=== PATIENT | male | born 1935 | race Caucasian/White ===

== ENCOUNTER 2018-10-31 07:45 | Day surgery (SDC) | payer MEDICARE, SELFPAY ==
[2018-10-30 07:22] VITALS: BMI 30.9
--- NOTE | 2018-10-31 09:59 | CL.D_ITS ---
Patient Name: TIRSO CALDERÓN Study Date: 10/31/2018 Performing: Maxi Gallardo MD Ht: 70.07 inches 178 cm : 1935 Wt: 216.05 lbs 98 kg Age: 83 Gender: male BSA: 2.16 PROCEDURE(S) PERFORMED [id number]-SMJ/COR/LV CLINICAL PROFILE AND INDICATIONS Indications: Suspected CAD, Valvular Disease, LV Dysfunction Heart Failure: NYHA Class: 1, Newly Diagnosed: Yes, Heart Failure Type: Systolic Stress/Imaging Stress/Image Study Performed: No Angina Classification Anginal Classification w/in 2 Weeks: No symptoms CAD Presentations: Other: Dyspnea on exertion Comorbidities/Risk Factors: Hypertension Dyslipidemia Diabetes Mellitus: Diabetes Therapy: Oral CONCLUSIONS Occluded RCA with L to R collaterals., Probably significant mid LAD stenosis which contributes to L to R Collaterals. Segmented LV systolic dysfunction- Moderate LVEF: by LV gram 45 % Elevated Left Ventricular End Diastolic Pressure RHC not ordered RECOMMENDATIONS Consider 2 vessel CABG with AVR vs PCI of LAD with TAVR. Dr Andrews paged with results. Successful manual sheath removal. DESCRIPTION OF PROCEDURE The patient arrived to the procedure lab. The risks and benefits of the procedure as well as a full d escription of our services here and current unavailability of surgical backup were fully explained to the patient and/or their significant other prior to the catheterization. The Timeout was completed, verifying the correct patient and procedure. The patient's procedural site was prepped and draped in the usual fashion. Local anesthetic was given subcutaneously to right groin region with Lidocaine 2%. Using a modified Seldinger technique, arterial access was obtained via the right femoral artery, a 4 Fr sheath was inserted Left Coronary Artery selective angiography was performed in multiple views us ing a 4 Fr. JL5 catheter. Right Coronary Artery selective angiography was then performed in multiple views using a 4 Fr. 3DRC catheter. Left Ventriculography was performed in LOERA projection using a 4 Fr . Pigtail catheter. LV to AO pullback pressures were then recorded.The arterial sheath was pulled and manual compression applied until hemostasis is achieved. CORONARY ANGIOGRAPHY DOMINANCE: Right Dominant LEFT HEART ASSESSMENT Left Ventricular Ejection Fraction: by LV Gram 45 % Inferior Mid Hypokinesis - Severe Depressed Left Ventricular systolic function LVEDP: 16-17 mmHg Abnormal Left Ventricular contraction pattern LEFT MAIN: Mild calcification LEFT ANTERIOR DECENDING ARTERY: PROX LAD: Moderate calcification MID LAD: 75 % Stenosis, Mild calcification DIAGONAL 1: Ostial - Mild luminal irregularities less than 30% CIRCUMFLEX ARTERY: Non-obstructive RIGHT CORONARY ARTERY: Severe calcification MID RCA: is occluded COLLATERAL FLOW: Collateral flow from Left to Right VALVE FINDINGS: Aortic Valve Stenosis - moderate with peak to peak gradient on pullback of 40 mm Hg. This may be und erestimated given moderate LV dysfunction. COMPLICATIONS No Complications PROCEDURE MEDICATIONS Oxygen: 2 L/min via nasal cannula SUMMARY OF HEMODYNAMIC DATA Time AIR REST ECG 08:11:13 AO 148/56 (90) SA 09:33:13 LV 188/-12, 9 09:39:32 LV 188/-14, 16 09:39:38 LVp 194/-13, 17 09:39:44 AOp 155/52 (91) 09:39:49 Signed By Maxi Gallardo MD On 10/31/2018 09:58:26 Maxi Gallardo MD
--- OUTSIDE RECORDS SUMMARY | 2019-02-01 08:11 | XMS RPT_ITS ---
:1935 Author Organization OHIP Care Team Providers Name Role Phone Maxi Gallardo Attending Unavailable Jeremi Choe Primary Care Unavailable Maxi Gallardo Referring Unavailable Maxi Gallardo Attending Unavailable Maxi Gallardo Referring Unavailable CHOLO VALENTINE MD Attending Unavailable PHYSICIAN, NONE Primary Care Unavailable CHOLO VALENTINE MD Attending Unavailable PHYSICIAN, NONE Primary Care Unavailable CHOLO VALENTINE MD Attending Unavailable PHYSICIAN, NONE Primary Care Unavailable MICHAEL ORTEZ Attending Unavailable MICHAEL ORTEZ Referring Unavailable JEREMI CHOE Referring Unavailable JEREMI CHOE Attending Unavailable JEREMI CHOE Referring Unavailable JEREMI CHOE Referring Unavailable NEELIMA MICHAEL E Referring Unavailable STEFANY ORTEZNETAron Vyas Attending Unavailable STEFANY ORTEZNETH E Referring Unavailable NEELIMA MICHAEL E Referring Unavailable JEREMI CHOE Attending Unavailable ДМИТРИЙ JERZY Referring Unavailable NEELIMA MICHAEL E Attending Unavailable NEELIMA MICHAEL E Referring Unavailable NEELIMA, MICHAEL E Referring Unavailable NEELIMA, MICHAEL E Referring Unavailable NEELIMA, MICHAEL E Referring Unavailable NEELIMA, MICHAEL E Attending Unavailable NEELIMA MICHAEL E Referring Unavailable NEELIMA, MICHAEL E Referring Unavailable NEELIMA MICHAEL Attending Unavailable STEFANY ORTEZNETH Referring Unavailable Jeremi Choe MD Primary Care Unavailable MICHAEL ORTEZ Attending Unavailable MICHAEL ORTEZ Referring Unavailable Jeremi Choe MD Primary Care Unavailable PROBLEMS PROBLEMS DATE TYPE CONDITION / CODE ATTENDING STATUS SOURCE 11/19/2018 Active Dizziness and NEELIMA, Active [place] giddiness / MICHAEL E [facility] R42(ICD-10) [place] Repository 12/01/2015 Active Essential (primary) NA Active [place] hypertension / [facility] I10(ICD-10) [place] Repository 10/22/2018 Active 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 / I25.10(ICD-10) 08/18/2016 Active Chronic kidney NA Active [place] disease, stage 3 [facility] (moderate) / [place] N18.3(ICD-10) Repository 03/28/2018 Active 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 / Repository E11.22(ICD-10) 08/23/2012 Active Nonrheumatic aortic NEELIMA, Active [place] (valve) stenosis / [facility]EL Vyas [facility] Other I35.0(ICD-10) [place] Repository 08/23/2012 Admitting Unknown / NEELIMA, Active [place] [facility] diagnosis UNK(Unknown) [facility] Repository PROCEDURES PROCEDURES No Procedure Records FoundRESULTS RESULTS CNPN Observed: 11/27/2018 Status: COMPLETED Source: [place] 12:00 AM [facility] REPOSITORY Telephone (CAWSTR) TIRSO CALDERÓN ([id number]) 1935 M Date Time Provider Department 11/27/18 MICHAEL ORTEZ CAWSTR During your visit today, we recorded the following information about you: Lesly Cabrales MA 11/27/2018 4:35 PM Signed Patients frances Benito called in and verified name and . She is in the process of filling out online request to get imaging and needed MRN and date of Echo. Lesly Wisdom Psr 11/29/2018 8:58 AM Signed Left message on frances Benito's voice mail that Heart cath CD from [facility] has been mailed to [facility]. Echo and Carotid Ultrasound CD is being mailed from [facility] to [facility] and [facility] Patient also has copy of chest x-ray to hand carry with him. Allergies As of Date: 11/27/2018 (No Known Allergies) Date Reviewed: 11/19/2018 Reviewed by: Lesly Cabrales MA - Fully Assessed Reason for Visit: Patient Question [9427] Prescriptions as of 11/27/2018 Sig: GLIPIZIDE ER 10 MG TABLET, EX* Take 1 tablet by mouth daily * LISINOPRIL 20 MG-HYDROCHLOROT* Take 2 tablets by mouth every* LABETALOL 100 MG TABLET Take 1 tablet by mouth twice * BLOOD SUGAR DIAGNOSTIC STRIPS Testing twice dailyDx: Type 2* LANCETS 30 GAUGE Test blood sugar(s) 2 times d* FENOFIBRATE 160 MG TABLET take 1 tablet once a day for * AMLODIPINE 10 MG TABLET TAKE 1 TABLET BY MOUTH EVERY * LOW-DOSE ASPIRIN ORAL Take 1 tablet by mouth once d* LABETALOL 300 MG TABLET Take 1 tablet by mouth every * VITAMINS A,C,T-DQEK-CWMBZQ 7* Take 1 tablet by mouth twice * BLOOD-GLUCOSE METER KIT Glucose Meter of Choice - Kit* BUSPIRONE 10 MG TABLET Take 1 tablet by mouth three * Patient taking differently: Take 10 mg by mouth three rodger* DOXEPIN 100 MG CAPSULE Take 1 capsule by mouth daily* TRAZODONE 100 MG TABLET Take 1 tablet by mouth daily * Problem List As Of Date 11/27/2018 Noted Resolved Essential hypertension [I10] Impaired glucose metabolism [R73.09] 08/16/2016 More... Hyperlipidemia [E78.5] Nonspecific abnormal results of liver function * 12/05/2017 Bipolar disorder, unspecified (HCC) [F31.9] More... Chronic kidney disease (CKD), stage III (modera*INVALID FOR* More... Mitral regurgitation [I34.0] INVALID FOR* Aortic stenosis [I35.0] INVALID FOR* Personal history of smoking [Z87.891] INVALID FOR*08/18/2016 More... 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) [E11.22, N1*INVALID FOR* Vitamin D deficiency [E55.9] INVALID FOR* Spondylosis of lumbar region without myelopathy*INVALID FOR* Skin nodule [R22.9] INVALID FOR* Encounter Status:Closed by SAMRA VELOZ LESLY on 11/27/18 BRITTNY Observed: 11/23/2018 Status: COMPLETED Source: [place] 12:00 AM [facility] REPOSITORY Telephone (CAWSTR) TIRSO CALDERÓN ([id number]) 1935 M Date Time Provider Department 11/23/18 MICHAEL ORTEZ CAWSTR During your visit today, we recorded the following information about you: Lesly Cabrales MA 11/23/2018 9:06 AM Signed Patient called in and verified name and date of . He is requesting that we fax a referral to Cardiology in [place] . The fax number is [phone] Lesly Ortez MD 11/23/2018 9:46 AM Signed Noted. Please send copy of angiogram report, echo reports and my office notes. Can we not make a direct referral to the surgeon? MD Lesly Avelar MA 11/23/2018 11:00 AM Signed They will need us to send referral and then they can set patient up, if there is a certain doctor that we want him to see we can place that name on it. Lesly Ortez MD 11/23/2018 4:[address] send referral to cardiothoracic surgery. 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 MD Gene Avelar RN 11/27/2018 10:23 AM Signed February from [facility] called, states she needs more info on pt. February states they do not have surgeons in their office. Informed her I will talk to pt and see what he wants to do Gene Arshad RN Gene Arshad RN 11/27/2018 10:23 AM Addendum Talked to Stacy from [facility] at [phone]. She is sending a referral form for pt. Stacy is requesting we fax ins cards, face sheet, most recent office note, labs, carotid scan report, echo reports, ekg and cath report. Faxed all documents to [phone] with confirmation Gene Arshad RN *still need CD with cath and echo images sent before pt tonia Arshad RN 11/27/2018 11:49 AM Signed Called [facility] record label internship, they will send disc to office of pt's recent heart cath Gene Arshad RN 11/27/2018 3:31 PM Signed Talked to pt's daughter Jigna, she said pt is scheduled with Dr. Valentine on 12-05-18. Informed her pt will need to take copy of heart cath and recent echo on CD. She states pt has copy of heart cath and she will request echo CD online t[place]alton Arshad RN 11/28/2018 3:29 PM Signed Pt stopped in office and was given CD of heart cath from [place] to take to tonia Arshad RN Allergies As of Date: 11/23/2018 (No Known Allergies) Date Reviewed: 11/19/2018 Reviewed by: Lesly Cabrales MA - Fully Assessed Reason for Visit: Referral Request [124] Prescriptions as of 11/23/2018 Sig: GLIPIZIDE ER 10 MG TABLET, EX* Take 1 tablet by mouth daily * LISINOPRIL 20 MG-HYDROCHLOROT* Take 2 tablets by mouth every* LABETALOL 100 MG TABLET Take 1 tablet by mouth twice * BLOOD SUGAR DIAGNOSTIC STRIPS Testing twice dailyDx: Type 2* LANCETS 30 GAUGE Test blood sugar(s) 2 times d* FENOFIBRATE 160 MG TABLET take 1 tablet once a day for * AMLODIPINE 10 MG TABLET TAKE 1 TABLET BY MOUTH EVERY * LOW-DOSE ASPIRIN ORAL Take 1 tablet by mouth once d* LABETALOL 300 MG TABLET Take 1 tablet by mouth every * VITAMINS A,C,R-QOMQ-UOVZJN 7* Take 1 tablet by mouth twice * BLOOD-GLUCOSE METER KIT Glucose Meter of Choice - Kit* BUSPIRONE 10 MG TABLET Take 1 tablet by mouth three * Patient taking differently: Take 10 mg by mouth three rodger* DOXEPIN 100 MG CAPSULE Take 1 capsule by mouth daily* TRAZODONE 100 MG TABLET Take 1 tablet by mouth daily * Problem List As Of Date 11/23/2018 Noted Resolved Essential hypertension [I10] Impaired glucose metabolism [R73.09] 08/16/2016 More... Hyperlipidemia [E78.5] Nonspecific abnormal results of liver function * 12/05/2017 Bipolar disorder, unspecified (HCC) [F31.9] More... Chronic kidney disease (CKD), stage III (modera*INVALID FOR* More... Mitral regurgitation [I34.0] INVALID FOR* Aortic stenosis [I35.0] INVALID FOR* Personal history of smoking [Z87.891] INVALID FOR*08/18/2016 More... 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) [E11.22, N1*INVALID FOR* Vitamin D deficiency [E55.9] INVALID FOR* Spondylosis of lumbar region without myelopathy*INVALID FOR* Skin nodule [R22.9] INVALID FOR* Encounter Status:Closed by GENE ARSHAD RN on 11/27/18 PROGRESS Observed: 11/19/2018 Status: COMPLETED Source: [place] 10:30 AM [facility] REPOSITORY [facility] ID: [id number] Author: Michael Ortez Service: (none) Author Type: Physician Type: Progress Notes Filed: 11/19/2018 6:21 PM Note Text: PERTINENT CARDIAC HISTORY Aortic stenosis - severe Mitral insufficiency - mild HTN HL DM CRF LBBB ADHERENCE TO GUIDELINES WEI-I or ARB for HF with prior LVEF<40 (NQF 0081) - N/A ASA or Plavix for ASHD (NQF 0067) - met Beta elijah for ASHD with prior UT or prior LVEF<40 (NQF 0070) - N/A Beta elijah for HF with prior LVEF<40 (NQF 0083) - N/A WEI-I or ARB for ASHD with DM or prior LVEF<40 (NQF 0066) - met Statin therapy for ASHD or FHL or DM - fibrate BMI documented and plan if >25 (NQF 0421) - lifestyle recommendation form Tobacco use screening and referral (NQF 0028) - lifestyle recommendation form Recommendation for whole food, plant based diet - lifestyle recommendation form CLINICAL IMPRESSION/PLAN: Tirso Calderón is clinically stable. We will expedite his presurgical evaluation by performing a carotid Doppler examination for evaluation of his bruits. He reports blood pressures at home have been in the 130/70 range. I've asked him to continue to monitor these closely. I will see him on a to be arranged basis following his surgery. I have asked him to call if he does not receive a call about scheduling in the next several days. Written and verbal health teaching given to patient, patient verbalizes understanding and agrees with treatment plan. DIAGNOSIS FOR VISIT: Aortic stenosis ASHD HISTORY OF PRESENT ILLNESS Tirso Calderón returns for follow-up of his valvular heart disease. He recently underwent angiogram. He was found to have significant ischemic heart disease as well. He has decided that he wishes to go to [place] for his surgery. Preliminary contacts have been made and records have been faxed, but no surgical date has had been established. He denies chest pain. He's had no orthopnea, edema, syncope, palpitations, TIAs, amaurosis or claudication. He states that he wishes to proceed with surgery as soon as possible. ALLERGIES: ALLERGIES No Known Allergies CURRENT OUTPATIENT MEDICATIONS: glipiZIDE (GLUCOTROL XL) 10mg 24 hr tablet Take 1 tablet by mouth daily before breakfast. lisinopril-hydrochlorothiazide (PRINZIDE,ZESTORETIC) 20-12.5 mg per tablet Take 2 tablets by mouth every morning. For blood pressure. labetalol (TRANDATE) 100 mg tablet Take 1 tablet by mouth twice daily. Take in addition to the 300 mg dose blood sugar diagnostic (TRUE METRIX GLUCOSE TEST STRIP) test strip Testing twice dailyDx: Type 2 DM- Uncontrolled Code E11.22 lancets (UNILET SUPER THIN LANCETS) 30 gauge [facility] Test blood sugar(s) 2 times daily. Dx: Type 2 DM- Uncontrolled Code E11.22 Insulin: No Fenofibrate (LOFIBRA) 160 mg tablet take 1 tablet once a day for triglycerides amLODIPine (NORVASC) 10 mg tablet TAKE 1 TABLET BY MOUTH EVERY DAY LOW-DOSE ASPIRIN ORAL Take 1 tablet by mouth once daily. labetalol (TRANDATE) 300 mg tablet Take 1 tablet by mouth every 12 hours. Morning and evening. vit A,C,E-Wiiq-Zjtxyc (PRESERVISION AREDS) 7,160-113-100 eaxo-ap-aklf tab Take 1 tablet by mouth twice daily with meals. Blood-Glucose Meter monitoring kit Glucose Meter of Choice - Kit - Dx: Type 2 DM - Uncontrolled E11.22 doxepin (SINEQUAN) 100 mg capsule Take 1 capsule by mouth daily at bedtime. traZODone (DESYREL) 100 mg tablet Take 1 tablet by mouth daily at bedtime. busPIRone (BUSPAR) 10 mg tablet Take 1 tablet by mouth three times daily. PHYSICAL EXAMINATION: VITAL SIGNS: BP 167/78 Pulse 67 Ht 5' 10 (1.78m) Wt 215 lb (97.5kg) BMI 30.85 kg/(m2). Chest: Clear to auscultation. Trachea is midline. Air entry is equal. Cardiac: Regular rhythm. S1 and S2 are normal. PMI is nondisplaced. There is a 3/6 mid peaking murmur of aortic stenosis. Carotids are somewhat delayed. There are possible bilateral bruits. JVP is less than 10 cm. Abdomen: Soft and nontender. There are no pulsatile masses or bruits. No liver enlargement. Bowel sounds are active. Extremities: No edema. Pulses are intact and symmetrical. Coronary angiogram films were personally reviewed. Electronically Signed: Michael Ortez MD November 19, 2018 10:30 AM CC: Jeremi Choe MD CNOV Observed: 11/19/2018 Status: COMPLETED Source: [place] 10:00 AM [facility] REPOSITORY Office Visit (CAWSTR) TIRSO CALDERÓN ([id number]) 1935 M Date Time Provider Department 11/19/18 10:00 AM MICHAEL ORTEZ CAWSTR During your visit today, we recorded the following information about you: Pulse Blood pressure Weight Height 67/minute 167/78 97.5 kg 1.778 m Michael Ortez MD 11/19/2018 6:21 PM Signed PERTINENT CARDIAC HISTORY Aortic stenosis - severe Mitral insufficiency - mild HTN HL DM CRF LBBB ADHERENCE TO GUIDELINES WEI-I or ARB for HF with prior LVEF<40 (NQF 0081) - N/A ASA or Plavix for ASHD (NQF 0067) - met Beta elijah for ASHD with prior UT or prior LVEF<40 (NQF 0070) - N/A Beta elijah for HF with prior LVEF<40 (NQF 0083) - N/A WEI-I or ARB for ASHD with DM or prior LVEF<40 (NQF 0066) - met Statin therapy for ASHD or FHL or DM - fibrate BMI documented and plan if >25 (NQ 0421) - lifestyle recommendation form Tobacco use screening and referral (NQ 0028) - lifestyle recommendation form Recommendation for whole food, plant based diet - lifestyle recommendation form CLINICAL IMPRESSION/PLAN: Tirso Calderón is clinically stable. We will expedite his presurgical evaluation by performing a carotid Doppler examination for evaluation of his bruits. He reports blood pressures at home have been in the 130/70 range. I've asked him to continue to monitor these closely. I will see him on a to be arranged basis following his surgery. I have asked him to call if he does not receive a call about scheduling in the next several days. Written and verbal health teaching given to patient, patient verbalizes understanding and agrees with treatment plan. DIAGNOSIS FOR VISIT: Aortic stenosis ASHD HISTORY OF PRESENT ILLNESS Tirso Calderón returns for follow-up of his valvular heart disease. He recently underwent angiogram. He was found to have significant ischemic heart disease as well. He has decided that he wishes to go to [place] for his surgery. Preliminary contacts have been made and records have been faxed, but no surgical date has had been established. He denies chest pain. He's had no orthopnea, edema, syncope, palpitations, TIAs, amaurosis or claudication. He states that he wishes to proceed with surgery as soon as possible. ALLERGIES: ALLERGIES No Known Allergies CURRENT OUTPATIENT MEDICATIONS: glipiZIDE (GLUCOTROL XL) 10mg 24 hr tablet Take 1 tablet by mouth daily before breakfast. lisinopril-hydrochlorothiazide (PRINZIDE,ZESTORETIC) 20-12.5 mg per tablet Take 2 tablets by mouth every morning. For blood pressure. labetalol (TRANDATE) 100 mg tablet Take 1 tablet by mouth twice daily. Take in addition to the 300 mg dose blood sugar diagnostic (TRUE METRIX GLUCOSE TEST STRIP) test strip Testing twice dailyDx: Type 2 DM- Uncontrolled Code E11.22 lancets (UNILET SUPER THIN LANCETS) 30 gauge misc Test blood sugar(s) 2 times daily. Dx: Type 2 DM- Uncontrolled Code E11.22 Insulin: No Fenofibrate (LOFIBRA) 160 mg tablet take 1 tablet once a day for triglycerides amLODIPine (NORVASC) 10 mg tablet TAKE 1 TABLET BY MOUTH EVERY DAY LOW-DOSE ASPIRIN ORAL Take 1 tablet by mouth once daily. labetalol (TRANDATE) 300 mg tablet Take 1 tablet by mouth every 12 hours. Morning and evening. vit A,C,Z-Nure-Yhnerc (PRESERVISION AREDS) 7,160-113-100 cctx-il-cqlq tab Take 1 tablet by mouth twice daily with meals. Blood-Glucose Meter monitoring kit Glucose Meter of Choice - Kit - Dx: Type 2 DM - Uncontrolled E11.22 doxepin (SINEQUAN) 100 mg capsule Take 1 capsule by mouth daily at bedtime. traZODone (DESYREL) 100 mg tablet Take 1 tablet by mouth daily at bedtime. busPIRone (BUSPAR) 10 mg tablet Take 1 tablet by mouth three times daily. PHYSICAL EXAMINATION: VITAL SIGNS: BP 167/78 Pulse 67 Ht 5' 10 (1.78m) Wt 215 lb (97.5kg) BMI 30.85 kg/(m2). Chest: Clear to auscultation. Trachea is midline. Air entry is equal. Cardiac: Regular rhythm. S1 and S2 are normal. PMI is nondisplaced. There is a 3/6 mid peaking murmur of aortic stenosis. Carotids are somewhat delayed. There are possible bilateral bruits. JVP is less than 10 cm. Abdomen: Soft and nontender. There are no pulsatile masses or bruits. No liver enlargement. Bowel sounds are active. Extremities: No edema. Pulses are intact and symmetrical. Coronary angiogram films were personally reviewed. Electronically Signed: Michael Ortez MD November 19, 2018 10:30 AM CC: MD Michael Hernandez MD 11/19/2018 10:30 AM Signed LIFESTYLE CHANGE A healthy lifestyle is the most important component of your overall treatment plan. Please give serious thought to the following areas and commit to making oysterman changes. EAT A WHOLE FOOD, PLANT BASED DIET The nutrition your body gets is more important than the medicine you take. What matters most is the overall way you eat. We encourage you to minimize the use of animal products (which include dairy and all meats except fatty fish) and use whole, unprocessed plant foods to provide your protein, vitamins and other nutrients. We have a lot of information to share with you on this topic. This is not a diet. It is a way of life that you will keep with you. EXERCISE REGULARLY It is not important to spend hours in the gym, lifting weights and perspiring heavily. A total of 2-3 hours per week of aerobic (causing you to be moderately short of breath) exercise is sufficient to improve your health. Talk to us before you begin a new exercise program, if you have heart disease or experience shortness of breath or chest pain. REDUCE STRESS Chronic emotional and physical stress leads to disease. Ways of reducing stress include meditation, visualization, prayer, yoga and other forms of relaxation therapy. Consistency is the collier. Find a technique that works for you and do it every day. CULTIVATE RELATIONSHIPS Loneliness and isolation have a major negative impact on health. Seek out others who can love, care for and nurture you. Avoid hurtful relationships. MAINTAIN IDEAL BODY WEIGHT The best way to do this is to do all the things above. Our bodies naturally find the right weight if we keep moving and feed ourselves the right food. If your BMI is greater than 25, we strongly recommend a referral to a weight management program. Please speak to us or your family physician about available programs. AVOID NICOTINE IN ALL FORMS This includes all tobacco products, whether chewed, smoked, vaped, or rubbed on the skin. Smoking cessation programs, which can make use of tobacco substitutes, medications to suppress cravings and behavior management, are available. Please contact your family physician about programs in your area. Referring Provider: MICHAEL ORTEZ [[id number]] Allergies As of Date: 11/19/2018 (No Known Allergies) Date Reviewed: 11/19/2018 Reviewed by: Lesly Cabrales MA - Fully Assessed Reason for Visit: Established Patient [175] Primary Visit Diagnosis:Dizziness and giddiness [R42] Other Visit Diagnoses:ASHD (arteriosclerotic heart disease) [I25.10] Nonrheumatic aortic valve stenosis [I35.0] Order(s):US CAROTID ARTERIES [facility] [[id number]] Order #: [id number] FUTURE Prescriptions as of 11/19/2018 Sig: GLIPIZIDE ER 10 MG TABLET, EX* Take 1 tablet by mouth daily * LISINOPRIL 20 MG-HYDROCHLOROT* Take 2 tablets by mouth every* LABETALOL 100 MG TABLET Take 1 tablet by mouth twice * BLOOD SUGAR DIAGNOSTIC STRIPS Testing twice dailyDx: Type 2* LANCETS 30 GAUGE Test blood sugar(s) 2 times d* FENOFIBRATE 160 MG TABLET take 1 tablet once a day for * AMLODIPINE 10 MG TABLET TAKE 1 TABLET BY MOUTH EVERY * LOW-DOSE ASPIRIN ORAL Take 1 tablet by mouth once d* LABETALOL 300 MG TABLET Take 1 tablet by mouth every * VITAMINS A,C,L-GLSO-CBSHPU 7* Take 1 tablet by mouth twice * BLOOD-GLUCOSE METER KIT Glucose Meter of Choice - Kit* DOXEPIN 100 MG CAPSULE Take 1 capsule by mouth daily* TRAZODONE 100 MG TABLET Take 1 tablet by mouth daily * BUSPIRONE 10 MG TABLET Take 1 tablet by mouth three * Patient taking differently: Take 10 mg by mouth three rodger* Problem List As Of Date 11/19/2018 Noted Resolved Essential hypertension [I10] Impaired glucose metabolism [R73.09] 08/16/2016 More... Hyperlipidemia [E78.5] Nonspecific abnormal results of liver function * 12/05/2017 Bipolar disorder, unspecified (HCC) [F31.9] More... Chronic kidney disease (CKD), stage III (modera*INVALID FOR* More... Mitral regurgitation [I34.0] INVALID FOR* Aortic stenosis [I35.0] INVALID FOR* Personal history of smoking [Z87.891] INVALID FOR*08/18/2016 More... 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 Please give serious thought to the following areas and commit to making oysterman changes. EAT A WHOLE FOOD, PLANT BASED DIET The nutrition your body gets is more important than the medicine you take. What matters most is the overall way you eat. We encourage you to minimize the use of animal products (which include dairy and all meats except fatty fish) and use whole, unprocessed plant foods to provide your protein, vitamins and other nutrients. We have a lot of information to share with you on this topic. This is not a diet. It is a way of life that you will keep with you. EXERCISE REGULARLY It is not important to spend hours in the gym, lifting weights and perspiring heavily. A total of 2-3 hours per week of aerobic (causing you to be moderately short of breath) exercise is sufficient to improve your health. Talk to us before you begin a new exercise program, if you have heart disease or experience shortness of breath or chest pain. REDUCE STRESS Chronic emotional and physical stress leads to disease. Ways of reducing stress include meditation, visualization, prayer, yoga and other forms of relaxation therapy. Consistency is the collier. Find a technique that works for you and do it every day. CULTIVATE RELATIONSHIPS Loneliness and isolation have a major negative impact on health. Seek out others who can love, care for and nurture you. Avoid hurtful relationships. MAINTAIN IDEAL BODY WEIGHT The best way to do this is to do all the things above. Our bodies naturally find the right weight if we keep moving and feed ourselves the right food. If your BMI is greater than 25, we strongly recommend a referral to a weight management program. Please speak to us or your family physician about available programs. AVOID NICOTINE IN ALL FORMS This includes all tobacco products, whether chewed, smoked, vaped, or rubbed on the skin. Smoking cessation programs, which can make use of tobacco substitutes, medications to suppress cravings and behavior management, are available. Please contact your family physician about programs in your area. Follow-up and Disposition History Recorded Encounter Status:Closed by MICHAEL ORTEZ MD on 11/19/18 CNNURSE Observed: 10/22/2018 Status: COMPLETED Source: [place] 1:00 PM [facility] REPOSITORY Nurse Visit (CAWSTR) TIRSO CALDERÓN ([id number]) 1935 M Date Time Provider Department 10/22/18 1:00 PM NURSE CARD ADMIN COUNTS INCLUDE 234 BEDS AT THE [facility] WSTR CAWSTR During your visit today, we recorded the following information about you: Lesly Cabrales MA 10/22/2018 1:40 PM Signed EKG completed and given to Dr Ortez for review. Lesly Cabrales MA Referring Provider: MICHAEL ORTEZ [[id number]] Allergies As of Date: 10/22/2018 (No Known Allergies) Date Reviewed: 10/22/2018 Reviewed by: Lesly Cabrales MA - Fully Assessed Reason for Visit: Allied Health Visit [5] Visit Diagnoses:ASHD (arteriosclerotic heart disease) [I25.10] Nonrheumatic aortic valve stenosis [I35.0] Essential hypertension [I10] Order(s):ECG COMPLETE W INTERPRETATION [ECG01] Order #: [id number] Prescriptions as of 10/22/2018 Sig: LABETALOL 100 MG TABLET Take 1 tablet by mouth twice * BLOOD SUGAR DIAGNOSTIC STRIPS Testing twice dailyDx: Type 2* LANCETS 30 GAUGE Test blood sugar(s) 2 times d* FENOFIBRATE 160 MG TABLET take 1 tablet once a day for * AMLODIPINE 10 MG TABLET TAKE 1 TABLET BY MOUTH EVERY * LOW-DOSE ASPIRIN ORAL Take 1 tablet by mouth once d* LABETALOL 300 MG TABLET Take 1 tablet by mouth every * LISINOPRIL 20 MG-HYDROCHLOROT* Take 2 tablets by mouth every* GLIPIZIDE ER 10 MG TABLET, EX* TAKE 1 TABLET BY MOUTH EVERY * VITAMINS A,C,V-TSSF-NFRNEF 7* Take 1 tablet by mouth twice * BLOOD-GLUCOSE METER KIT Glucose Meter of Choice - Kit* BUSPIRONE 10 MG TABLET Take 1 tablet by mouth three * DOXEPIN 100 MG CAPSULE Take 1 capsule by mouth daily* TRAZODONE 100 MG TABLET Take 1 tablet by mouth daily * Problem List As Of Date 10/22/2018 Noted Resolved Essential hypertension [I10] Impaired glucose metabolism [R73.09] 08/16/2016 More... Hyperlipidemia [E78.5] Nonspecific abnormal results of liver function * 12/05/2017 Bipolar disorder, unspecified (HCC) [F31.9] More... Chronic kidney disease (CKD), stage III (modera*INVALID FOR* More... Mitral regurgitation [I34.0] INVALID FOR* Aortic stenosis [I35.0] INVALID FOR* Personal history of smoking [Z87.891] INVALID FOR*08/18/2016 More... 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 Lesly Samra VELOZ Encounter Status:Closed by LESLY CABRALES MA on 10/22/18 EKG1 Observed: 10/22/2018 Status: F Source: [place] 11:11 AM [facility] REPOSITORY NAME : TIRSO CALDERÓN PID : [id number] : 1935 Gender : Male Race : ORD : Procedure Date : Oct 22 2018 11:11:17 Edit Date : Oct 23 2018 16:31:47 Diagnosis:SINUS RHYTHM WITH OCCASIONAL PREMATURE VENTRICULAR COMPLEXES WITH 1ST DEGREE AV BLOCK COMPLETE LEFT BUNDLE BRANCH BLOCK ABNORMAL ECG NO SIGNIFICANT CHANGE FROM PREVIOUS ECG Confirmed by MICHAEL ORTEZ MD ([id number]) on 10/23/2018 4:31:46 PM Ventricular Rate : 68 BPM Atrial Rate : 68 BPM P-R Interval : 204 ms QRS Duration : 160 ms Q-T Interval : 470 ms QTC Calculation(Bezet) : 499 ms P [place] : 58 degrees R [place] : 27 degrees T [place] : -3 degrees Test Reason : Location : 136 : [place] Overread By : MICHAEL ORTEZ MD Edited By : MICHAEL ORTEZ MD Referred By : NEELIMA, Acquired by : , BASIC METABOLIC PANL Collected: 10/22/2018 Status: F Source: [place] 10:53 AM [facility] REPOSITORY TYPE CODE TESTS RESULT OUT OF REFERENCE UNITS RANGE LAB GLU 74-99 mg/dL Glucose High 157 LAB BUN 9-24 mg/dL BUN 20 LAB CRET 0.73-1.22 mg/dL High Creatinine 1.29 LAB NA 136-144 mmol/L Low Sodium 132 LAB K 3.7-5.1 mmol/L Potassium 3.9 LAB CL 97-105 mmol/L Low Chloride 96 LAB CO2 22-30 mmol/L CO2 25 LAB AGAP 9-18 mmol/L Anion Gap 11 LAB CA 8.5-10.2 mg/dL Calcium, Total 9.9 LAB GFRAA eGFR- >60 Amer. LAB GFRNAA . eGFR-All Other Races 53 Result Comment: eGFR (Estimated GFR) Units of measure: mL/min/1.73 meters squared eGFR is derived from the reexpressed MDRD Study equation using the following parameters: serum creatinine, age, gender and race. The creatinine assay has been calibrated to be traceable to IDMS. An eGFR <60 mL/min/1.73m2 for >3 months is consistent with chronic kidney disease. Refer to KDOQI guidelines for clinical interpretation. In patients with unstable renal function, e.g. those with acute kidney injury, the eGFR may not accurately reflect actual GFR. PROTIME Collected: 10/22/2018 Status: F Source: [place] 10:[address] [facility] [place] REPOSITORY TYPE CODE TESTS RESULT OUT OF RANGE REFERENCE UNITS LAB PSEC 9.7-13.0 sec PT Sec 10.3 LAB INR 0.9-1.3 PT INR 1.0 Result Comment: Vitamin K Antagonist (VKA) Therapeutic Range: INR 2 to 3 (Target INR of 2.5) Note: For patients treated with VKA drugs, such as warfarin, the [place] [employer] 2012 Guideline recommends a therapeutic INR range of 2 to 3 (target INR of 2.5). This recommendation includes high-risk patients with antiphospholipid syndrome with previous arterial or venous thromboembolism, current-generation mechanical or bioprosthetic aortic heart valve replacement. Note: Patients with mechanical aortic valve replacement and additional risk factors for thromboembolic events (atrial fibrillation, previous thromboembolism, LV dysfunction, hypercoagulable conditions) or an older generation mechanical AVR (i.e., ball in-Cage) or any mechanical MVR should have a INR therapeutic range of 2.5 to 3.5 (target INR of 3). Juanito GH, et al. Chest 2012, 141:7S-47S Abel RA, et al. [facility] 2017, 70: 252-289 Performed By: #### PT, CBC #### [facility] [address] [address] CBC Collected: 10/22/2018 Status: F Source: [place] 10:53 AM [facility] REPOSITORY TYPE CODE TESTS RESULT OUT OF REFERENCE UNITS RANGE LAB WBC 3.70-11.00 k/uL WBC 6.34 LAB RBC 4.20-6.00 m/uL RBC 4.35 LAB HGB 13.0-17.0 g/dL Low Hemoglobin 12.5 LAB HCT 39.0-51.0 % Low Hematocrit 37.4 LAB MCV 80.0-100.0 fL MCV 86.0 LAB MCH 26.0-34.0 pG MCH 28.7 LAB MCHC 30.5-36.0 g/dL MCHC 33.4 LAB RDWCV 11.5-15.0 % RDW-CV 13.3 LAB PLTCT 150-400 k/uL Platelet Count 185 LAB MPV 9.0-12.7 fL MPV 10.8 LAB ABSNUC <0.01 k/uL Absolute nRBC <0.01 Performed By: #### PT, CBC #### [facility] [address] [id number] XR CHEST 2V FRONTAL/LAT Observed: 10/22/2018 Status: F Source: [place] 10:29 AM [facility] REPOSITORY * * *Final Report* * * DATE OF EXAM: Oct 22 2018 10:29AM WRX [id number] - XR CHEST 2V FRONTAL/LAT / PROCEDURE REASON: multiple diagnoses * * * * Physician Interpretation * * * * EXAMINATION: CHEST RADIOGRAPH (2 VIEW FRONTAL and LATERAL) CLINICAL HISTORY: ASHD (arteriosclerotic heart disease) Nonrheumatic aortic valve stenosis MQ: XC2_5 Comparison: None RESULT: Lines, tubes, and devices: None. Lungs and pleura: No consolidation. No lung mass. No pleural effusion. Cardiomediastinal silhouette: Normal cardiomediastinal silhouette. IMPRESSION: No acute radiographic abnormality. Sole Ruffer: PSCB Transcribe Date/Time: Oct 22 2018 12:07P Dictated by : TORSTEN BAIN MD This examination was interpreted and the report reviewed and electronically signed by: TORSTEN BAIN MD on Oct 22 2018 12:09PM EST [id number] Observed: 10/22/2018 Status: COMPLETED Source: [place] 10:22 AM [facility] REPOSITORY HNO ID: [id number] Author: Nai Guy (Rt) Sam William Service: (none) Author Type: Rayon Tester Type: Progress Notes Filed: 10/22/2018 10:30 AM Note Text: Radiology Service Progress Note PATIENT NAME: Tirso Calderón DATE OF SERVICE: October 22, 2018 TIME: 10:22 AM PATIENT IDENTITY VERIFICATION COMPLETED USING TWO (2) METHODS: Patient confirmed name verbally and Date of . PATIENT GENDER DATA: Male PATIENT RELEVANT IMPLANT DATA REVIEWED: Not Applicable RADIOLOGY DEPARTMENT: General X-ray: Exam(s) Completed: Chest X-Ray PERIPHERAL IV DATA: Not applicable SIGNED BY: RT Simran October 22, 2018 10:22 AM PROGRESS Observed: 10/22/2018 Status: COMPLETED Source: [place] 10:05 AM [facility] REPOSITORY HNO ID: [id number] Author: Michael Ortez Service: (none) Author Type: Physician Type: Progress Notes Filed: 10/23/2018 8:39 AM Note Text: PERTINENT CARDIAC HISTORY Aortic stenosis - severe Mitral insufficiency - mild HTN HL DM CRF LBBB ADHERENCE TO GUIDELINES WEI-I or ARB for HF with prior LVEF<40 (NQF 0081) - N/A ASA or Plavix for ASHD (NQF 0067) - met Beta elijah for ASHD with prior UT or prior LVEF<40 (NQF 0070) - N/A Beta elijah for HF with prior LVEF<40 (NQF 0083) - N/A WEI-I or ARB for ASHD with DM or prior LVEF<40 (NQF 0066) - met Statin therapy for ASHD or FHL or DM - fibrate BMI documented and plan if >25 (NQF 0421) - lifestyle recommendation form Tobacco use screening and referral (NQF 0028) - lifestyle recommendation form Recommendation for whole food, plant based diet - lifestyle recommendation form CLINICAL IMPRESSION/PLAN: Tirso Calderón has severe aortic stenosis. His most recent echocardiogram shows a decrease in his left ventricular function. Blood pressure is suboptimally controlled. I've asked him to increase labetalol to 400 milligrams twice daily and report blood pressures to me in several days. He is far from the maximal dose. He will be set up for coronary angiogram. He would prefer this be done at [facility]. This is in preparation to have surgical consultation. I've asked him to check on insurance coverage. Likely he will need to go to [facility]. I will see him on a to be arranged basis pending the outcome of his angiogram and surgical consultation. Written and verbal health teaching given to patient, patient verbalizes understanding and agrees with treatment plan. DIAGNOSIS FOR VISIT: Aortic stenosis Hypertension HISTORY OF PRESENT ILLNESS Tirso Calderón returns for follow-up of his valvular heart disease. He has had no recent chest discomfort. He denies orthopnea. He acknowledges that his exercise tolerance has diminished over the last year. He voices the preference that he would like to proceed with aortic valve surgery if it has a reasonable chance of improving his quality of life and decreasing his loss of ventricular function. He's had no syncope, palpitations, TIAs, amaurosis or claudication . ALLERGIES: ALLERGIES No Known Allergies CURRENT OUTPATIENT MEDICATIONS: blood sugar diagnostic (TRUE METRIX GLUCOSE TEST STRIP) test strip Testing twice dailyDx: Type 2 DM- Uncontrolled Code E11.22 lancets (TumblrET SUPER THIN LANCETS) 30 gauge misc Test blood sugar(s) 2 times daily. Dx: Type 2 DM- Uncontrolled Code E11.22 Insulin: No labetalol (TRANDATE) 100 mg tablet Take 1 tablet by mouth once daily. Take at noon, in between AM and PM 300 mg doses. Fenofibrate (LOFIBRA) 160 mg tablet take 1 tablet once a day for triglycerides amLODIPine (NORVASC) 10 mg tablet TAKE 1 TABLET BY MOUTH EVERY DAY LOW-DOSE ASPIRIN ORAL Take 1 tablet by mouth once daily. labetalol (TRANDATE) 300 mg tablet Take 1 tablet by mouth every 12 hours. Morning and evening. lisinopril-hydrochlorothiazide (PRINZIDE,ZESTORETIC) 20-12.5 mg per tablet Take 2 tablets by mouth every morning. For blood pressure. glipiZIDE XL (GLUCOTROL XL) 10 mg 24 hr tablet TAKE 1 TABLET BY MOUTH EVERY DAY BEFORE BREAKFAST vit A,C,D-Autc-Dgblwb (PRESERVISION AREDS) 7,160-113-100 feeb-kv-txra tab Take 1 tablet by mouth twice daily with meals. Blood-Glucose Meter monitoring kit Glucose Meter of Choice - Kit - Dx: Type 2 DM - Uncontrolled E11.22 busPIRone (BUSPAR) 10 mg tablet Take 1 tablet by mouth three times daily. doxepin (SINEQUAN) 100 mg capsule Take 1 capsule by mouth daily at bedtime. traZODone (DESYREL) 100 mg tablet Take 1 tablet by mouth daily at bedtime. 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 He has since 2006 had A1C values in the 5.7-6.1 range and is on medications and does follow any dietary regime. Two times in 2008, the value was 6.5 and 6.8%. I discussed this with him and will change to impaired glucose. 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 - Type II or unspecified type diabetes mellitus without mention of complication, not stated as uncontrolled - Unspecified essential hypertension PAST SURGICAL HISTORY Procedure Laterality Date - OPEN RX ANKLE DISLOCATN+FIXATN 1992 ORIF Ankle right [facility] - TOTAL HIP REPLACEMENT 02/14/2012 Hip replacement, total Dr Berry FAMILY HISTORY Problem Relation Age of Onset - Stroke Father brain aneurysm Social History Marital status: Spouse name: Years of education: Number of children: 2 Occupational History Occupation Employer Comment [employer]* Social History Main Topics Smoking status: Former Smoker Packs/day: 0.00 Years: 0.00 Types: Cigars Quit date: 12/07/2001 Smokeless tobacco: Never Used Alcohol use: No Comment: Quit Drug use: No Social History Narrative , lives alone, in [facility]. Helps out with grandkids. Grew up in [place]. Daughter 49 , with met breast cancer. REVIEW OF SYSTEMS: General: No chills, fever, weight loss, night sweats. Respiratory: No productive cough. Cardiac: As noted above. GI: No melena. : No dysuria. Musculoskeletal: No myalgias. PHYSICAL EXAMINATION: S/he is alert and in no distress. VITAL SIGNS: BP 167/76 Pulse 71 Ht 5' 10 (1.78m) Wt 216 lb 8 oz (98.2kg) BMI 31.06 kg/(m2). SHEENT: Skin is warm and dry. No xanthelasmas appreciated. Pharynx is benign. There is no oral cyanosis. Neck: supple. No adenopathy or thyroid enlargement. Chest: Clear to auscultation. Trachea is midline. Air entry is equal. There is no chest wall tenderness. Cardiac: Regular rhythm. S1 and S2 are normal. PMI is nondisplaced. There is a 3/6 mid systolic murmur of aortic stenosis. Carotids are somewhat delayed. JVP is less than 10 cm. Abdomen: Soft and nontender. There are no pulsatile masses or bruits. No liver enlargement. Bowel sounds are active. Extremities: No edema. Pulses are intact and symmetrical. No clubbing or cyanosis. No femoral bruits. Neurologic: Grossly normal motor and sensory. S/he is alert and oriented x4. EKG shows sinus rhythm with occasional ventricular prematures. There is no significant change. Electronically Signed: Michael Ortez MD October 22, 2018 10:05 AM CC:Jeremi Choe MD CNOV Observed: 10/22/2018 Status: COMPLETED Source: [place] 9:45 AM [facility] REPOSITORY Office Visit (CAWSTR) TIRSO CALDERÓN ([id number]) 1935 M Date Time Provider Department 10/22/18 9:45 AM MICHAEL ORTEZ CAWSTR During your visit today, we recorded the following information about you: Pulse Blood pressure Weight Height 71/minute 167/76 98.2 kg 1.778 m Michael Ortez MD 10/23/2018 8:39 AM Signed PERTINENT CARDIAC HISTORY Aortic stenosis - severe Mitral insufficiency - mild HTN HL DM CRF LBBB ADHERENCE TO GUIDELINES WEI-I or ARB for HF with prior LVEF<40 (NQF 0081) - N/A ASA or Plavix for ASHD (NQF 0067) - met Beta elijah for ASHD with prior UT or prior LVEF<40 (NQF 0070) - N/A Beta elijah for HF with prior LVEF<40 (NQF 0083) - N/A WEI-I or ARB for ASHD with DM or prior LVEF<40 (NQF 0066) - met Statin therapy for ASHD or FHL or DM - fibrate BMI documented and plan if >25 (NQF 0421) - lifestyle recommendation form Tobacco use screening and referral (NQF 0028) - lifestyle recommendation form Recommendation for whole food, plant based diet - lifestyle recommendation form CLINICAL IMPRESSION/PLAN: Tirso Calderón has severe aortic stenosis. His most recent echocardiogram shows a decrease in his left ventricular function. Blood pressure is suboptimally controlled. I've asked him to increase labetalol to 400 milligrams twice daily and report blood pressures to me in several days. He is far from the maximal dose. He will be set up for coronary angiogram. He would prefer this be done at [facility]. This is in preparation to have surgical consultation. I've asked him to check on insurance coverage. Likely he will need to go to [facility]. I will see him on a to be arranged basis pending the outcome of his angiogram and surgical consultation. Written and verbal health teaching given to patient, patient verbalizes understanding and agrees with treatment plan. DIAGNOSIS FOR VISIT: Aortic stenosis Hypertension HISTORY OF PRESENT ILLNESS Tirso Calderón returns for follow-up of his valvular heart disease. He has had no recent chest discomfort. He denies orthopnea. He acknowledges that his exercise tolerance has diminished over the last year. He voices the preference that he would like to proceed with aortic valve surgery if it has a reasonable chance of improving his quality of life and decreasing his loss of ventricular function. He's had no syncope, palpitations, TIAs, amaurosis or claudication . ALLERGIES: ALLERGIES No Known Allergies CURRENT OUTPATIENT MEDICATIONS: blood sugar diagnostic (TRUE METRIX GLUCOSE TEST STRIP) test strip Testing twice dailyDx: Type 2 DM- Uncontrolled Code E11.22 lancets (UNILET SUPER THIN LANCETS) 30 gauge misc Test blood sugar(s) 2 times daily. Dx: Type 2 DM- Uncontrolled Code E11.22 Insulin: No labetalol (TRANDATE) 100 mg tablet Take 1 tablet by mouth once daily. Take at noon, in between AM and PM 300 mg doses. Fenofibrate (LOFIBRA) 160 mg tablet take 1 tablet once a day for triglycerides amLODIPine (NORVASC) 10 mg tablet TAKE 1 TABLET BY MOUTH EVERY DAY LOW-DOSE ASPIRIN ORAL Take 1 tablet by mouth once daily. labetalol (TRANDATE) 300 mg tablet Take 1 tablet by mouth every 12 hours. Morning and evening. lisinopril-hydrochlorothiazide (PRINZIDE,ZESTORETIC) 20-12.5 mg per tablet Take 2 tablets by mouth every morning. For blood pressure. glipiZIDE XL (GLUCOTROL XL) 10 mg 24 hr tablet TAKE 1 TABLET BY MOUTH EVERY DAY BEFORE BREAKFAST vit A,C,G-Whud-Grxwwm (PRESERVISION AREDS) 7,160-113-100 ehpp-um-gqhh tab Take 1 tablet by mouth twice daily with meals. Blood-Glucose Meter monitoring kit Glucose Meter of Choice - Kit - Dx: Type 2 DM - Uncontrolled E11.22 busPIRone (BUSPAR) 10 mg tablet Take 1 tablet by mouth three times daily. doxepin (SINEQUAN) 100 mg capsule Take 1 capsule by mouth daily at bedtime. traZODone (DESYREL) 100 mg tablet Take 1 tablet by mouth daily at bedtime. PAST MEDICAL HISTORY Diagnosis Date - Bipolar disorder, unspecified (HCC) - Chronic kidney disease (CKD), stage III (moderate) ([facility]) 03/12/2010 - DM type 2 causing CKD stage 3 ([facility]) 07/30/2015 - Essential hypertension - Hyperlipidemia cholesterol 197 08/27/2012 [facility] - Impaired glucose metabolism HGBA1C 6.1 08/27/2012 [facility]. He has since 2006 had A1C values in the 5.7-6.1 range and is on medications and does follow any dietary regime. Two times in 2008, the value was 6.5 and 6.8%. I discussed this with him and will change to impaired glucose. 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 - Type II or unspecified type diabetes mellitus without mention of complication, not stated as uncontrolled - Unspecified essential hypertension PAST SURGICAL HISTORY Procedure Laterality Date - OPEN RX ANKLE DISLOCATN+FIXATN 1991 ORIF Ankle right [facility] - TOTAL HIP REPLACEMENT 02/14/2012 Hip replacement, total Dr Berry FAMILY HISTORY Problem Relation Age of Onset - Stroke Father brain aneurysm Social History Marital status: Spouse name: Years of education: Number of children: 2 Occupational History Occupation Employer Comment [employer]* Social History Main Topics Smoking status: Former Smoker Packs/day: 0.00 Years: 0.00 Types: Cigars Quit date: 12/07/2001 Smokeless tobacco: Never Used Alcohol use: No Comment: Quit Drug use: No Social History Narrative , lives alone, in [facility]. Helps out with grandkids. Grew up in [place]. Daughter 49 , with met breast cancer. REVIEW OF SYSTEMS: General: No chills, fever, weight loss, night sweats. Respiratory: No productive cough. Cardiac: As noted above. GI: No melena. : No dysuria. Musculoskeletal: No myalgias. PHYSICAL EXAMINATION: S/he is alert and in no distress. VITAL SIGNS: BP 167/76 Pulse 71 Ht 5' 10 (1.78m) Wt 216 lb 8 oz (98.2kg) BMI 31.06 kg/(m2). SHEENT: Skin is warm and dry. No xanthelasmas appreciated. Pharynx is benign. There is no oral cyanosis. Neck: supple. No adenopathy or thyroid enlargement. Chest: Clear to auscultation. Trachea is midline. Air entry is equal. There is no chest wall tenderness. Cardiac: Regular rhythm. S1 and S2 are normal. PMI is nondisplaced. There is a 3/6 mid systolic murmur of aortic stenosis. Carotids are somewhat delayed. JVP is less than 10 cm. Abdomen: Soft and nontender. There are no pulsatile masses or bruits. No liver enlargement. Bowel sounds are active. Extremities: No edema. Pulses are intact and symmetrical. No clubbing or cyanosis. No femoral bruits. Neurologic: Grossly normal motor and sensory. S/he is alert and oriented x4. EKG shows sinus rhythm with occasional ventricular prematures. There is no significant change. Electronically Signed: Michael Ortez MD October 22, 2018 10:05 AM CC:MD Michael Hernandez MD 10/22/2018 10:07 AM Signed LIFESTYLE CHANGE A healthy lifestyle is the most important component of your overall treatment plan. Please give serious thought to the following areas and commit to making oysterman changes. EAT A WHOLE FOOD, PLANT BASED DIET The nutrition your body gets is more important than the medicine you take. What matters most is the overall way you eat. We encourage you to minimize the use of animal products (which include dairy and all meats except fatty fish) and use whole, unprocessed plant foods to provide your protein, vitamins and other nutrients. We have a lot of information to share with you on this topic. This is not a diet. It is a way of life that you will keep with you. EXERCISE REGULARLY It is not important to spend hours in the gym, lifting weights and perspiring heavily. A total of 2-3 hours per week of aerobic (causing you to be moderately short of breath) exercise is sufficient to improve your health. Talk to us before you begin a new exercise program, if you have heart disease or experience shortness of breath or chest pain. REDUCE STRESS Chronic emotional and physical stress leads to disease. Ways of reducing stress include meditation, visualization, prayer, yoga and other forms of relaxation therapy. Consistency is the collier. Find a technique that works for you and do it every day. CULTIVATE RELATIONSHIPS Loneliness and isolation have a major negative impact on health. Seek out others who can love, care for and nurture you. Avoid hurtful relationships. MAINTAIN IDEAL BODY WEIGHT The best way to do this is to do all the things above. Our bodies naturally find the right weight if we keep moving and feed ourselves the right food. If your BMI is greater than 25, we strongly recommend a referral to a weight management program. Please speak to us or your family physician about available programs. AVOID NICOTINE IN ALL FORMS This includes all tobacco products, whether chewed, smoked, vaped, or rubbed on the skin. Smoking cessation programs, which can make use of tobacco substitutes, medications to suppress cravings and behavior management, are available. Please contact your family physician about programs in your area. Gene Arshad RN 10/22/2018 10:25 AM Signed Pt needs set up for heart cath at [facility]. 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 Take in addition to the 300 mg doseDisp: Rfl: ECG COMPLETE W INTERPRETATION [ECG01] Order #: [id number] FUTURE ECG COMPLETE W INTERPRETATION [ECG01] Order #: [id number] FUTURE Prescriptions as of 10/22/2018 Sig: AMLODIPINE 10 MG TABLET TAKE 1 TABLET BY MOUTH EVERY * BLOOD SUGAR DIAGNOSTIC STRIPS Testing twice dailyDx: Type 2* BLOOD-GLUCOSE METER KIT Glucose Meter of Choice - Kit* BUSPIRONE 10 MG TABLET Take 1 tablet by mouth three * DOXEPIN 100 MG CAPSULE Take 1 capsule by mouth daily* FENOFIBRATE 160 MG TABLET take 1 tablet once a day for * GLIPIZIDE ER 10 MG TABLET, EX* TAKE 1 TABLET BY MOUTH EVERY * LABETALOL 100 MG TABLET Take 1 tablet by mouth twice * LABETALOL 300 MG TABLET Take 1 tablet by mouth every * LANCETS 30 GAUGE Test blood sugar(s) 2 times d* LISINOPRIL 20 MG-HYDROCHLOROT* Take 2 tablets by mouth every* LOW-DOSE ASPIRIN ORAL Take 1 tablet by mouth once d* TRAZODONE 100 MG TABLET Take 1 tablet by mouth daily * VITAMINS A,C,Z-RFPN-BOSXYI 7* Take 1 tablet by mouth twice * Problem List As Of Date 10/22/2018 Noted Resolved Essential hypertension [I10] Impaired glucose metabolism [R73.09] 08/16/2016 More... Hyperlipidemia [E78.5] Nonspecific abnormal results of liver function * 12/05/2017 Bipolar disorder, unspecified (HCC) [F31.9] More... Chronic kidney disease (CKD), stage III (modera*INVALID FOR* More... Mitral regurgitation [I34.0] INVALID FOR* Aortic stenosis [I35.0] INVALID FOR* Personal history of smoking [Z87.891] INVALID FOR*08/18/2016 More... 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 Please give serious thought to the following areas and commit to making usp changes. EAT A WHOLE FOOD, PLANT BASED DIET The nutrition your body gets is more important than the medicine you take. What matters most is the overall way you eat. We encourage you to minimize the use of animal products (which include dairy and all meats except fatty fish) and use whole, unprocessed plant foods to provide your protein, vitamins and other nutrients. We have a lot of information to share with you on this topic. This is not a diet. It is a way of life that you will keep with you. EXERCISE REGULARLY It is not important to spend hours in the gym, lifting weights and perspiring heavily. A total of 2-3 hours per week of aerobic (causing you to be moderately short of breath) exercise is sufficient to improve your health. Talk to us before you begin a new exercise program, if you have heart disease or experience shortness of breath or chest pain. REDUCE STRESS Chronic emotional and physical stress leads to disease. Ways of reducing stress include meditation, visualization, prayer, yoga and other forms of relaxation therapy. Consistency is the collier. Find a technique that works for you and do it every day. CULTIVATE RELATIONSHIPS Loneliness and isolation have a major negative impact on health. Seek out others who can love, care for and nurture you. Avoid hurtful relationships. MAINTAIN IDEAL BODY WEIGHT The best way to do this is to do all the things above. Our bodies naturally find the right weight if we keep moving and feed ourselves the right food. If your BMI is greater than 25, we strongly recommend a referral to a weight management program. Please speak to us or your family physician about available programs. AVOID NICOTINE IN ALL FORMS This includes all tobacco products, whether chewed, smoked, vaped, or rubbed on the skin. Smoking cessation programs, which can make use of tobacco substitutes, medications to suppress cravings and behavior management, are available. Please contact your family physician about programs in your area. Visit Notes: >> Gene Arshad RN Mon Oct 22, 2018 10:24 AM Status: Signed Pt needs set up for heart cath at [facility]. Gene Arshad RN Prescriptions ordered this encounter Disp Refills Start End LABETALOL 100 MG TABLET 10/22/2018 Class: Med Update Route: ORAL Sig: Take 1 tablet by mouth twice daily. Take in addition to the 300 mg dose Medications Discontinued During This Encounter labetalol (TRANDATE) 100 mg tablet 30 t* 5 09/10/2018 10/22/2018 Route: ORAL Sig: Take 1 tablet by mouth once daily. Take at noon, in between AM and PM 300 mg doses. Disc: Reason for discontinue is not on file. Follow-up and Disposition History Recorded Encounter Status:Closed by MICHAEL ORTEZ MD on 10/23/18 PROGRESS Observed: 09/10/2018 Status: COMPLETED Source: [place] 8:[address] [facility] [place] REPOSITORY O ID: [id number] Author: Jeremi Choe Service: (none) Author Type: Physician Type: Progress Notes Filed: 09/10/2018 9:07 AM Note Text: This note was created using doughriter. Subjective Tirso Calderón is a 83 year old male. He felt fine. He was scheduled to see cardiology next month about his valvular heart disease. His diabetes mellitus needed rechecked. His hypertension was elevated today. BP true was consistent with controlled hypertension in March. ACTIVE PROBLEM LIST Essential Hypertension Hyperlipidemia Bipolar disorder, unspecified (HCC) Chronic Kidney Disease (Ckd), Stage Iii (Moderate) (Hcc) Mitral Regurgitation Aortic Stenosis Dm Type 2 Causing Ckd Stage 3 (Hcc) Vitamin D Deficiency Spondylosis of Lumbar Region Without Myelopathy Or Radiculopathy Skin Nodule Current Outpatient Prescriptions: Fenofibrate (LOFIBRA) 160 mg tablet take 1 tablet once a day for triglycerides amLODIPine (NORVASC) 10 mg tablet TAKE 1 TABLET BY MOUTH EVERY DAY LOW-DOSE ASPIRIN ORAL Take 1 tablet by mouth once daily. labetalol (TRANDATE) 300 mg tablet Take 1 tablet by mouth every 12 hours. Morning and evening. lisinopril-hydrochlorothiazide (PRINZIDE,ZESTORETIC) 20-12.5 mg per tablet Take 2 tablets by mouth every morning. For blood pressure. TRUE METRIX GLUCOSE TEST STRIP test strip Test blood sugar twice daily. Non-insulin UNILET SUPER THIN LANCETS 30 gauge misc Test blood sugar(s) 2 times daily. Dx: Type 2 DM- Uncontrolled Code E11.22 Insulin: No vit A,C,Z-Spuh-Iskywy (PRESERVISION AREDS) 7,160-113-100 hndw-ip-blqa tab Take 1 tablet by mouth twice daily with meals. Blood-Glucose Meter monitoring kit Glucose Meter of Choice - Kit - Dx: Type 2 DM - Uncontrolled E11.22 busPIRone (BUSPAR) 10 mg tablet Take 1 tablet by mouth three times daily. doxepin (SINEQUAN) 100 mg capsule Take 1 capsule by mouth daily at bedtime. traZODone (DESYREL) 100 mg tablet Take 1 tablet by mouth daily at bedtime. glipiZIDE XL (GLUCOTROL XL) 10 mg 24 hr tablet TAKE 1 TABLET BY MOUTH EVERY DAY BEFORE BREAKFAST No current facility-administered medications for this visit. Review of Systems Constitutional: Negative. Respiratory: Negative. Cardiovascular: Negative. Neurological: Negative. Objective BP 150/60 (BP Site: Right Arm, BP Position: Sitting, BP Cuff Size: Regular Adult) Pulse 68 Temp 36.4 ?C (97.6 ?F) Resp 18 Physical Exam Constitutional: No distress. Cardiovascular: Normal rate, regular rhythm, S1 normal and S2 normal. Murmur heard. Systolic murmur is present with a grade of 2/6 Base. Pulmonary/Chest: Breath sounds normal. Musculoskeletal: He exhibits no edema. Skin: Chronic nodule, right face. Assessment and Plan 1. Essential hypertension - ICD9: 401.9, ICD10: I10 (primary diagnosis) - suboptimal control - Continue current medication(s) - Add labetalol at noon. Discussed medication dosage, usage, goals of therapy, and side effects. - Recheck in 2 weeks, sooner should new symptoms or problems arise. - Goal of BP <130/80 - LABETALOL 100 MG TABLET 2. Need for vaccination - ICD9: V05.9, ICD10: Z23 - INFLUENZA SEASONAL HIGH DOSE AGE 65+ 3. Type 2 diabetes mellitus with stage 3 chronic kidney disease, without long-term current use of insulin (HCC) - ICD9: 250.40, 585.3, ICD10: E11.22, N18.3 Controlled. - Continue current medications - HEMOGLOBIN A1C (POC) - ALBUMIN/CREAT RATIO RND UR - CBC - COMP METABOLIC PANEL - HGB A1C 4. Hyperlipidemia, unspecified hyperlipidemia type - ICD9: 272.4, ICD10: E78.5 - to be determined upon return of lab results - Continue current medication. - LIPID PANEL BASIC Jeremi Cheo MD PROGRESS Observed: 09/10/2018 Status: COMPLETED Source: [place] 8:14 AM [facility] REPOSITORY O ID: [id number] Author: Deysi Red (Marli) MARLI Ramirez Service: (none) Author Type: LICENSED NURSE Type: Progress Notes Filed: 09/10/2018 9:07 AM Note Text: 83 year old male here for INACTIVATED INFLUENZA VACCINE. 1008-0639 Season Patient is identified by name and date of : Yes [] CONTRAINDICATIONS color enhanced section Age less than 6 months? No Allergy to eggs, chicken, chicken feathers, or chicken dander? No Allergy to thimerosal (a preservative) or formaldehyde, gelatin? No History of severe reaction to any vaccine component or a previous dose of influenza vaccination? No History of Guillain-[place] Syndrome within 6 weeks after a previous influenza vaccine? No Patient is not moderately or severely ill? No Current temperature greater or equal to 100.4F? No History of Bone Marrow Transplant prior 6 months or solid organ transplant in the past 3 months ? No History of fainting after a prior injection or medical procedure? No- ? If patient has fainted in the past, the CDC recommends sitting or lying down for 15 minutes after the vaccination. [] VERIFICATION color enhanced section Was the answer Yes for any of the above contraindications? No contraindications present. Acceptable to proceed with vaccine. Patient/guardian agrees the above answers are true to the best of their knowledge? Yes Flu vaccine information sheet given? Yes See immunization activity in [facility] for details of immunizations adminstered today. Patient age: [age] year old For The Flu Season 6-35 months old: Fluzone 0.25 ml - IM (Preservative Free) 3 years of age: Fluzone 0.5 ml - IM (Preservative Free) 3 years and older: Fluzone 0.5 ml- IM-(with Preservatives) 65+ years old: 2-49 years old Fluzone High-Dose 0.5 ml - IM (Preservative Free) FLUMIST- intranasal REMEMBER: If patient is less than 9 years of age and this is the first vaccine of Influenza to be received in any flu season, they should receive a second dose in one months time. CHRISTOPHEROV Observed: 09/10/2018 Status: COMPLETED Source: [place] 8:00 AM [facility] REPOSITORY Office Visit (INTMWS) TIRSO CALDERÓN ([id number]) 1935 M Date Time Provider Department 09/10/18 8:00 AM JEREMI CHOE IN[facility] During your visit today, we recorded the following information about you: Temperature Pulse Respiration Blood pressure 97.6 degrees 69/minute 18/minute 161/70 Deysi Ramirez LPN, LPN 09/10/2018 9:07 AM Signed 83 year old male here for INACTIVATED INFLUENZA VACCINE. Season Patient is identified by name and date of : Yes [] CONTRAINDICATIONS color enhanced section Age less than 6 months? No Allergy to eggs, chicken, chicken feathers, or chicken dander? No Allergy to thimerosal (a preservative) or formaldehyde, gelatin? No History of severe reaction to any vaccine component or a previous dose of influenza vaccination? No History of Guillain-[place] Syndrome within 6 weeks after a previous influenza vaccine? No Patient is not moderately or severely ill? No Current temperature greater or equal to 100.4F? No History of Bone Marrow Transplant prior 6 months or solid organ transplant in the past 3 months ? No History of fainting after a prior injection or medical procedure? No- ? If patient has fainted in the past, the CDC recommends sitting or lying down for 15 minutes after the vaccination. [] VERIFICATION color enhanced section Was the answer Yes for any of the above contraindications? No contraindications present. Acceptable to proceed with vaccine. Patient/guardian agrees the above answers are true to the best of their knowledge? Yes Flu vaccine information sheet given? Yes See immunization activity in [facility] for details of immunizations adminstered today. Patient age: [age] year old For The 3602-0062 Flu Season 6-35 months old: Fluzone 0.25 ml - IM (Preservative Free) 3 years of age: Fluzone 0.5 ml - IM (Preservative Free) 3 years and older: Fluzone 0.5 ml- IM-(with Preservatives) 65+ years old: 2-49 years old Fluzone High-Dose 0.5 ml - IM (Preservative Free) FLUMIST- intranasal REMEMBER: If patient is less than 9 years of age and this is the first vaccine of Influenza to be received in any flu season, they should receive a second dose in one months time. Jeremi Choe MD 09/10/2018 9:07 AM Signed This note was created using NoteWriter. Subjective Tirso Calderón is a 83 year old male. He felt fine. He was scheduled to see cardiology next month about his valvular heart disease. His diabetes mellitus needed rechecked. His hypertension was elevated today. BP true was consistent with controlled hypertension in March. ACTIVE PROBLEM LIST Essential Hypertension Hyperlipidemia Bipolar disorder, unspecified (HCC) Chronic Kidney Disease (Ckd), Stage Iii (Moderate) (Hcc) Mitral Regurgitation Aortic Stenosis Dm Type 2 Causing Ckd Stage 3 (Hcc) Vitamin D Deficiency Spondylosis of Lumbar Region Without Myelopathy Or Radiculopathy Skin Nodule Current Outpatient Prescriptions: Fenofibrate (LOFIBRA) 160 mg tablet take 1 tablet once a day for triglycerides amLODIPine (NORVASC) 10 mg tablet TAKE 1 TABLET BY MOUTH EVERY DAY LOW-DOSE ASPIRIN ORAL Take 1 tablet by mouth once daily. labetalol (TRANDATE) 300 mg tablet Take 1 tablet by mouth every 12 hours. Morning and evening. lisinopril-hydrochlorothiazide (PRINZIDE,ZESTORETIC) 20-12.5 mg per tablet Take 2 tablets by mouth every morning. For blood pressure. TRUE METRIX GLUCOSE TEST STRIP test strip Test blood sugar twice daily. Non-insulin UNILET SUPER THIN LANCETS 30 gauge misc Test blood sugar(s) 2 times daily. Dx: Type 2 DM- Uncontrolled Code E11.22 Insulin: No vit A,C,D-Pqss-Cfhrzl (PRESERVISION AREDS) 7,160-113-100 nqno-xs-hhdd tab Take 1 tablet by mouth twice daily with meals. Blood-Glucose Meter monitoring kit Glucose Meter of Choice - Kit - Dx: Type 2 DM - Uncontrolled E11.22 busPIRone (BUSPAR) 10 mg tablet Take 1 tablet by mouth three times daily. doxepin (SINEQUAN) 100 mg capsule Take 1 capsule by mouth daily at bedtime. traZODone (DESYREL) 100 mg tablet Take 1 tablet by mouth daily at bedtime. glipiZIDE XL (GLUCOTROL XL) 10 mg 24 hr tablet TAKE 1 TABLET BY MOUTH EVERY DAY BEFORE BREAKFAST No current facility-administered medications for this visit. Review of Systems Constitutional: Negative. Respiratory: Negative. Cardiovascular: Negative. Neurological: Negative. Objective BP 150/60 (BP Site: Right Arm, BP Position: Sitting, BP Cuff Size: Regular Adult) Pulse 68 Temp 36.4 ?C (97.6 ?F) Resp 18 Physical Exam Constitutional: No distress. Cardiovascular: Normal rate, regular rhythm, S1 normal and S2 normal. Murmur heard. Systolic murmur is present with a grade of 2/6 Base. Pulmonary/Chest: Breath sounds normal. Musculoskeletal: He exhibits no edema. Skin: Chronic nodule, right face. Assessment and Plan 1. Essential hypertension - ICD9: 401.9, ICD10: I10 (primary diagnosis) - suboptimal control - Continue current medication(s) - Add labetalol at noon. Discussed medication dosage, usage, goals of therapy, and side effects. - Recheck in 2 weeks, sooner should new symptoms or problems arise. - Goal of BP <130/80 - LABETALOL 100 MG TABLET 2. Need for vaccination - ICD9: V05.9, ICD10: Z23 - INFLUENZA SEASONAL HIGH DOSE AGE 65+ 3. Type 2 diabetes mellitus with stage 3 chronic kidney disease, without long-term current use of insulin (HCC) - ICD9: 250.40, 585.3, ICD10: E11.22, N18.3 Controlled. - Continue current medications - HEMOGLOBIN A1C (POC) - ALBUMIN/CREAT RATIO RND UR - CBC - COMP METABOLIC PANEL - HGB A1C 4. Hyperlipidemia, unspecified hyperlipidemia type - ICD9: 272.4, ICD10: E78.5 - to be determined upon return of lab results - Continue current medication. - LIPID PANEL BASIC MD Jeremi Hernandez MD 09/10/2018 9:05 AM Signed Medication added for blood pressure. Referring Provider: JEREMI CHOE [[id number]] Allergies As of Date: 09/10/2018 (No Known Allergies) Date Reviewed: 09/10/2018 Reviewed by: Deysi Red (Marli) MARLI Ramirez - Fully Assessed Reason for Visit: Surgical Followup [104] Cmt: 5 month f/up Imm/Inj [58] Cmt: Flu Vaccine Reason For Visit History Recorded Primary Visit Diagnosis:Essential hypertension [I10] Other Visit Diagnoses:Need for vaccination [Z23] Type 2 diabetes mellitus with stage 3 chronic kidney disease, without long-term current use of insulin (HCC) [E11.22, N18.3] Hyperlipidemia, unspecified hyperlipidemia type [E78.5] Order(s):INFLUENZA SEASONAL HIGH DOSE AGE 65+ [18618ZQY] Order #: [id number] HEMOGLOBIN A1C (POC) [[id number]] Order #: [id number]. #:[id number] ALBUMIN/CREAT RATIO RND UR [SQUACR] Order #: [id number] FUTURE CBC [SQCBC] Order #: [id number] FUTURE COMP METABOLIC PANEL [SQCMP] Order #: [id number] FUTURE HGB A1C [GWBSA4V] Order #: [id number] FUTURE LIPID PANEL BASIC [SQLIPB] Order #: [id number] FUTURE labetalol (TRANDATE) 100 mg tabletTake 1 tablet by mouth once daily. Take at noon, in between AM and PM 300 mg doses.Disp: 30 tabletRfl: 5 Prescriptions as of 09/10/2018 Sig: FENOFIBRATE 160 MG TABLET take 1 tablet once a day for * AMLODIPINE 10 MG TABLET TAKE 1 TABLET BY MOUTH EVERY * LOW-DOSE ASPIRIN ORAL Take 1 tablet by mouth once d* LABETALOL 300 MG TABLET Take 1 tablet by mouth every * LISINOPRIL 20 MG-HYDROCHLOROT* Take 2 tablets by mouth every* TRUE METRIX GLUCOSE TEST STRIP Test blood sugar twice daily.* UNILET SUPER THIN LANCETS 30 * Test blood sugar(s) 2 times d* VITAMINS A,C,D-LEEW-VLZLZE 7* Take 1 tablet by mouth twice * BLOOD-GLUCOSE METER KIT Glucose Meter of Choice - Kit* BUSPIRONE 10 MG TABLET Take 1 tablet by mouth three * DOXEPIN 100 MG CAPSULE Take 1 capsule by mouth daily* TRAZODONE 100 MG TABLET Take 1 tablet by mouth daily * LABETALOL 100 MG TABLET Take 1 tablet by mouth once d* GLIPIZIDE ER 10 MG TABLET, EX* TAKE 1 TABLET BY MOUTH EVERY * Problem List As Of Date 09/10/2018 Noted Resolved Essential hypertension [I10] Impaired glucose metabolism [R73.09] 08/16/2016 More... Hyperlipidemia [E78.5] Nonspecific abnormal results of liver function * 12/05/2017 Bipolar disorder, unspecified (HCC) [F31.9] More... Chronic kidney disease (CKD), stage III (modera*INVALID FOR* More... Mitral regurgitation [I34.0] INVALID FOR* Aortic stenosis [I35.0] INVALID FOR* Personal history of smoking [Z87.891] INVALID FOR*08/18/2016 More... 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) [E11.22, N1*INVALID FOR* Vitamin D deficiency [E55.9] INVALID FOR* Spondylosis of lumbar region without myelopathy*INVALID FOR* Skin nodule [R22.9] INVALID FOR* Other instructions from your clinician: Medication added for blood pressure. Prescriptions ordered this encounter Disp Refills Start End LABETALOL 100 MG TABLET 30 t* 5 09/10/2018 Route: ORAL Sig: Take 1 tablet by mouth once daily. Take at noon, in between AM and PM 300 mg doses. Disposition: Return in about 4 months (around 01/10/2019). Follow-up and Disposition History Recorded Encounter Status:Closed by JEREMI CHOE MD on 09/10/18 KVNG Observed: 08/28/2018 Status: COMPLETED Source: [place] 12:00 AM [facility] RE[facility] Patient Outreach (FAMPST) TIRSO CALDERÓN ([id number]) 1935 M Date Time Provider Department 08/28/18 [facility] During your visit today, we recorded the following information about you: Allergies As of Date: 08/28/2018 (No Known Allergies) Date Reviewed: 06/22/2018 Reviewed by: Gene Arshad RN - Fully Assessed Visit Diagnosis:Medication management [Z79.899] Order(s):HGB A1C [GHREB2Q] Order #: [id number] FUTURE Prescriptions as of 08/28/2018 Sig: FENOFIBRATE 160 MG TABLET take 1 tablet once a day for * AMLODIPINE 10 MG TABLET TAKE 1 TABLET BY MOUTH EVERY * LOW-DOSE ASPIRIN ORAL Take 1 tablet by mouth once d* LABETALOL 300 MG TABLET Take 1 tablet by mouth every * LISINOPRIL 20 MG-HYDROCHLOROT* Take 2 tablets by mouth every* GLIPIZIDE ER 10 MG TABLET, EX* TAKE 1 TABLET BY MOUTH EVERY * TRUE METRIX GLUCOSE TEST STRIP Test blood sugar twice daily.* UNILET SUPER THIN LANCETS 30 * Test blood sugar(s) 2 times d* VITAMINS A,C,W-AXWQ-YHJVDQ 7* Take 1 tablet by mouth twice * BLOOD-GLUCOSE METER KIT Glucose Meter of Choice - Kit* BUSPIRONE 10 MG TABLET Take 1 tablet by mouth three * DOXEPIN 100 MG CAPSULE Take 1 capsule by mouth daily* TRAZODONE 100 MG TABLET Take 1 tablet by mouth daily * Problem List As Of Date 08/28/2018 Noted Resolved Essential hypertension [I10] Impaired glucose metabolism [R73.09] 08/16/2016 More... Hyperlipidemia [E78.5] Nonspecific abnormal results of liver function * 12/05/2017 Bipolar disorder, unspecified (HCC) [F31.9] More... Chronic kidney disease (CKD), stage III (modera*INVALID FOR* More... Mitral regurgitation [I34.0] INVALID FOR* Aortic stenosis [I35.0] INVALID FOR* Personal history of smoking [Z87.891] INVALID FOR*08/18/2016 More... 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) [E11.22, N1*INVALID FOR* Vitamin D deficiency [E55.9] INVALID FOR* Spondylosis of lumbar region without myelopathy*INVALID FOR* Skin nodule [R22.9] INVALID FOR* Encounter Status:Closed by KP DAVISON on 09/28/18 CNNURSE Observed: 06/22/2018 Status: COMPLETED Source: [place] 4:15 PM [facility] RE[facility]ITORY Nurse Visit (CAWSTR) TIRSO CALDERÓN ([id number]) 1935 M Date Time Provider Department 06/22/18 4:[address] [facility] [facility] During your visit today, we recorded the following information about you: Gene Arshad RN 06/25/2018 8:06 AM Signed ekg completed, pt tolerated procedure without distress Gene Arshad RN Referring Provider: MICHAEL ORTEZ [[id number]] Allergies As of Date: 06/22/2018 (No Known Allergies) Date Reviewed: 06/22/2018 Reviewed by: Gene Arshad RN - Fully Assessed Reason for Visit: Nurse Visit [792] Visit Diagnoses:Nonrheumatic aortic valve stenosis [I35.0] Hypertension, essential [I10] Order(s):ECG COMPLETE W INTERPRETATION [ECG01] Order #: [id number] Prescriptions as of 06/22/2018 Sig: AMLODIPINE 10 MG TABLET TAKE 1 TABLET BY MOUTH EVERY * LOW-DOSE ASPIRIN ORAL Take 1 tablet by mouth once d* LABETALOL 300 MG TABLET Take 1 tablet by mouth every * FENOFIBRATE 160 MG TABLET take 1 tablet once a day for * LISINOPRIL 20 MG-HYDROCHLOROT* Take 2 tablets by mouth every* GLIPIZIDE ER 10 MG TABLET, EX* TAKE 1 TABLET BY MOUTH EVERY * TRUE METRIX GLUCOSE TEST STRIP Test blood sugar twice daily.* UNILET SUPER THIN LANCETS 30 * Test blood sugar(s) 2 times d* VITAMINS A,C,J-FGUF-UPKVQZ 7* Take 1 tablet by mouth twice * BLOOD-GLUCOSE METER KIT Glucose Meter of Choice - Kit* BUSPIRONE 10 MG TABLET Take 1 tablet by mouth three * DOXEPIN 100 MG CAPSULE Take 1 capsule by mouth daily* TRAZODONE 100 MG TABLET Take 1 tablet by mouth daily * Problem List As Of Date 06/22/2018 Noted Resolved Essential hypertension [I10] Impaired glucose metabolism [R73.09] 08/16/2016 More... Hyperlipidemia [E78.5] Nonspecific abnormal results of liver function * 12/05/2017 Bipolar disorder, unspecified (HCC) [F31.9] More... Chronic kidney disease (CKD), stage III (modera*INVALID FOR* More... Mitral regurgitation [I34.0] INVALID FOR* Aortic stenosis [I35.0] INVALID FOR* Personal history of smoking [Z87.891] INVALID FOR*08/18/2016 More... 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) [E11.22, N1*INVALID FOR* Vitamin D deficiency [E55.9] INVALID FOR* Spondylosis of lumbar region without myelopathy*INVALID FOR* Skin nodule [R22.9] INVALID FOR* Visit Notes: >> Gene Arshad RN MonJun 22, 2018 8:06 AM Status: Signed ekg completed, pt tolerated procedure without distress Gene Arshad RN Encounter Status:Closed by GENE ARSHAD RN on 06/25/18 PROGRESS Observed: 06/22/2018 Status: COMPLETED Source: [place] 9:58 AM [facility] REPOSITORY [facility] ID: [id number] Author: Michael Ortez Service: (none) Author Type: Physician Type: Progress Notes Filed: 06/23/2018 9:53 AM Note Text: PERTINENT CARDIAC HISTORY Aortic stenosis - severe Mitral insufficiency - mild HTN HL DM CRF LBBB ADHERENCE TO GUIDELINES WEI-I or ARB for HF with prior LVEF<40 (NQF 0081) - N/A ASA or Plavix for ASHD (NQF 0067) - met Beta elijah for ASHD with prior UT or prior LVEF<40 (NQF 0070) - N/A Beta elijah for HF with prior LVEF<40 (NQF 0083) - N/A WEI-I or ARB for ASHD with DM or prior LVEF<40 (NQF 0066) - met Statin therapy for ASHD or FHL or DM - fibrate BMI documented and plan if >25 (NQF 0421) - lifestyle recommendation form Tobacco use screening and referral (NQF 0028) - lifestyle recommendation form Recommendation for whole food, plant based diet - lifestyle recommendation form CLINICAL IMPRESSION/PLAN: Tirso Calderón now has severe aortic stenosis and some early signs of LV compromise. I have discussed the inevitable deterioration in LV function and progressive aortic valve obstruction. I've encouraged him to consider intervention and described the basic options available. I've asked him to keep this under consideration and we will get back again in 4 months to decide how to proceed. In the meantime, he is asked to continue his current medication and let me know he has increased chest pain or shortness of breath. Written and verbal health teaching given to patient, patient verbalizes understanding and agrees with treatment plan. DIAGNOSIS FOR VISIT: Aortic stenosis Hypertension HISTORY OF PRESENT ILLNESS Tirso Calderón returns for follow-up of his aortic valve disease and hypertension. He reports stable exercise tolerance. There has been little change in his activities over the last year. He's had no chest discomfort. He denies orthopnea, edema, syncope. He has had no palpitations, TIAs, amaurosis or claudication. ALLERGIES: ALLERGIES No Known Allergies CURRENT OUTPATIENT MEDICATIONS: amLODIPine (NORVASC) 10 mg tablet TAKE 1 TABLET BY MOUTH EVERY DAY LOW-DOSE ASPIRIN ORAL Take 1 tablet by mouth once daily. labetalol (TRANDATE) 300 mg tablet Take 1 tablet by mouth every 12 hours. Morning and evening. Fenofibrate (LOFIBRA) 160 mg tablet take 1 tablet once a day for triglycerides lisinopril-hydrochlorothiazide (PRINZIDE,ZESTORETIC) 20-12.5 mg per tablet Take 2 tablets by mouth every morning. For blood pressure. glipiZIDE XL (GLUCOTROL XL) 10 mg 24 hr tablet TAKE 1 TABLET BY MOUTH EVERY DAY BEFORE BREAKFAST TRUE METRIX GLUCOSE TEST STRIP test strip Test blood sugar twice daily. Non-insulin UNILET SUPER THIN LANCETS 30 gauge misc Test blood sugar(s) 2 times daily. Dx: Type 2 DM- Uncontrolled Code E11.22 Insulin: No vit A,C,F-Ouqn-Vvsuwh (PRESERVISION AREDS) 7,160-113-100 ksfw-ht-xvfr tab Take 1 tablet by mouth twice daily with meals. busPIRone (BUSPAR) 10 mg tablet Take 1 tablet by mouth three times daily. doxepin (SINEQUAN) 100 mg capsule Take 1 capsule by mouth daily at bedtime. traZODone (DESYREL) 100 mg tablet Take 1 tablet by mouth daily at bedtime. Blood-Glucose Meter monitoring kit Glucose Meter of Choice - Kit - Dx: Type 2 DM - Uncontrolled E11.22 PHYSICAL EXAMINATION: VITAL SIGNS: BP 125/64 Pulse 73 Wt 212 lb 14.4 oz (96.6kg) Chest: Clear to percussion and auscultation. Trachea is midline. Air entry is equal. Cardiac: Regular rhythm. S1 and S2 are normal. PMI is nondisplaced. There is a 3/6 midsystolic murmur of aortic stenosis. Carotids are somewhat delayed. JVP is less than 10 cm. Abdomen: Soft and nontender. There are no pulsatile masses or bruits. No liver enlargement. Bowel sounds are active. Extremities: No edema. Pulses are intact and symmetrical. EKG shows sinus first degree. There is incomplete left bundle branch block. No change is seen since 06/20/17. Labs were reviewed. Renal function is moderately impaired, but stable. Hemoglobin was 12.6. Echocardiogram was performed today. There is increased aortic valve gradient. Aortic stenosis is now severe. LV function may be slightly decreased Electronically Signed: Michael Ortez MD June 22, 2018 9:58 AM CC: Jeremi Choe MD EKG1 Observed: 06/22/2018 Status: F Source: [place] 9:03 AM [facility] REPOSITORY NAME : TIRSO CALDERÓN PID : [id number] : 1935 Gender : Male Race : ORD : Procedure Date : Jun 22 2018 09:03:37 Edit Date : Jun 23 2018 08:12:52 Diagnosis:SINUS RHYTHM WITH 1ST DEGREE AV BLOCK COMPLETE LEFT BUNDLE BRANCH BLOCK ABNORMAL ECG Confirmed by MICHAEL ORTEZ MD ([id number]) on 06/23/2018 8:12:32 AM Ventricular Rate : 65 BPM Atrial Rate : 65 BPM P-R Interval : 224 ms QRS Duration : 154 ms Q-T Interval : 460 ms QTC Calculation(Bezet) : 478 ms P [place] : 80 degrees R [place] : 11 degrees T [place] : -23 degrees Test Reason : Location : 136 : [facility] Overread By : MICHAEL ORTEZ MD Edited By : MICHAEL ORTEZ MD Referred By : MICHAEL ORTEZ Acquired by : MI TAYLOR Observed: 06/22/2018 Status: COMPLETED Source: [place] 9:00 AM [facility] REPOSITORY Office Visit (CAWSTR) STEPHANETIRSO ([id number]) 1935 M Date Time Provider Department 06/22/18 9:00 AM MICHAEL ORTEZ [facility] During your visit today, we recorded the following information about you: Pulse Blood pressure Weight 73/minute 125/64 96.6 kg Michael Ortez MD 06/23/2018 9:53 AM Signed PERTINENT CARDIAC HISTORY Aortic stenosis - severe Mitral insufficiency - mild HTN HL DM CRF LBBB ADHERENCE TO GUIDELINES WEI-I or ARB for HF with prior LVEF<40 (NQF 0081) - N/A ASA or Plavix for ASHD (NQF 0067) - met Beta elijah for ASHD with prior UT or prior LVEF<40 (NQF 0070) - N/A Beta elijah for HF with prior LVEF<40 (NQF 0083) - N/A WEI-I or ARB for ASHD with DM or prior LVEF<40 (NQF 0066) - met Statin therapy for ASHD or FHL or DM - fibrate BMI documented and plan if >25 (NQF 0421) - lifestyle recommendation form Tobacco use screening and referral (NQF 0028) - lifestyle recommendation form Recommendation for whole food, plant based diet - lifestyle recommendation form CLINICAL IMPRESSION/PLAN: Tirso Calderón now has severe aortic stenosis and some early signs of LV compromise. I have discussed the inevitable deterioration in LV function and progressive aortic valve obstruction. I've encouraged him to consider intervention and described the basic options available. I've asked him to keep this under consideration and we will get back again in 4 months to decide how to proceed. In the meantime, he is asked to continue his current medication and let me know he has increased chest pain or shortness of breath. Written and verbal health teaching given to patient, patient verbalizes understanding and agrees with treatment plan. DIAGNOSIS FOR VISIT: Aortic stenosis Hypertension HISTORY OF PRESENT ILLNESS Tirso Calderón returns for follow-up of his aortic valve disease and hypertension. He reports stable exercise tolerance. There has been little change in his activities over the last year. He's had no chest discomfort. He denies orthopnea, edema, syncope. He has had no palpitations, TIAs, amaurosis or claudication. ALLERGIES: ALLERGIES No Known Allergies CURRENT OUTPATIENT MEDICATIONS: amLODIPine (NORVASC) 10 mg tablet TAKE 1 TABLET BY MOUTH EVERY DAY LOW-DOSE ASPIRIN ORAL Take 1 tablet by mouth once daily. labetalol (TRANDATE) 300 mg tablet Take 1 tablet by mouth every 12 hours. Morning and evening. Fenofibrate (LOFIBRA) 160 mg tablet take 1 tablet once a day for triglycerides lisinopril-hydrochlorothiazide (PRINZIDE,ZESTORETIC) 20-12.5 mg per tablet Take 2 tablets by mouth every morning. For blood pressure. glipiZIDE XL (GLUCOTROL XL) 10 mg 24 hr tablet TAKE 1 TABLET BY MOUTH EVERY DAY BEFORE BREAKFAST TRUE METRIX GLUCOSE TEST STRIP test strip Test blood sugar twice daily. Non-insulin UNILET SUPER THIN LANCETS 30 gauge misc Test blood sugar(s) 2 times daily. Dx: Type 2 DM- Uncontrolled Code E11.22 Insulin: No vit A,C,G-Scvn-Fbywrg (PRESERVISION AREDS) 7,160-113-100 sjep-qb-kewd tab Take 1 tablet by mouth twice daily with meals. busPIRone (BUSPAR) 10 mg tablet Take 1 tablet by mouth three times daily. doxepin (SINEQUAN) 100 mg capsule Take 1 capsule by mouth daily at bedtime. traZODone (DESYREL) 100 mg tablet Take 1 tablet by mouth daily at bedtime. Blood-Glucose Meter monitoring kit Glucose Meter of Choice - Kit - Dx: Type 2 DM - Uncontrolled E11.22 PHYSICAL EXAMINATION: VITAL SIGNS: BP 125/64 Pulse 73 Wt 212 lb 14.4 oz (96.6kg) Chest: Clear to percussion and auscultation. Trachea is midline. Air entry is equal. Cardiac: Regular rhythm. S1 and S2 are normal. PMI is nondisplaced. There is a 3/6 midsystolic murmur of aortic stenosis. Carotids are somewhat delayed. JVP is less than 10 cm. Abdomen: Soft and nontender. There are no pulsatile masses or bruits. No liver enlargement. Bowel sounds are active. Extremities: No edema. Pulses are intact and symmetrical. EKG shows sinus first degree. There is incomplete left bundle branch block. No change is seen since 06/20/17. Labs were reviewed. Renal function is moderately impaired, but stable. Hemoglobin was 12.6. Echocardiogram was performed today. There is increased aortic valve gradient. Aortic stenosis is now severe. LV function may be slightly decreased Electronically Signed: Michael Ortez MD June 22, 2018 9:58 AM CC: MD Michael Hernandez MD 06/22/2018 9:59 AM Signed LIFESTYLE CHANGE A healthy lifestyle is the most important component of your overall treatment plan. Please give serious thought to the following areas and commit to making usp changes. EAT A WHOLE FOOD, PLANT BASED DIET The nutrition your body gets is more important than the medicine you take. What matters most is the overall way you eat. We encourage you to minimize the use of animal products (which include dairy and all meats except fatty fish) and use whole, unprocessed plant foods to provide your protein, vitamins and other nutrients. We have a lot of information to share with you on this topic. This is not a diet. It is a way of life that you will keep with you. EXERCISE REGULARLY It is not important to spend hours in the gym, lifting weights and perspiring heavily. A total of 2-3 hours per week of aerobic (causing you to be moderately short of breath) exercise is sufficient to improve your health. Talk to us before you begin a new exercise program, if you have heart disease or experience shortness of breath or chest pain. REDUCE STRESS Chronic emotional and physical stress leads to disease. Ways of reducing stress include meditation, visualization, prayer, yoga and other forms of relaxation therapy. Consistency is the collier. Find a technique that works for you and do it every day. CULTIVATE RELATIONSHIPS Loneliness and isolation have a major negative impact on health. Seek out others who can love, care for and nurture you. Avoid hurtful relationships. MAINTAIN IDEAL BODY WEIGHT The best way to do this is to do all the things above. Our bodies naturally find the right weight if we keep moving and feed ourselves the right food. If your BMI is greater than 25, we strongly recommend a referral to a weight management program. Please speak to us or your family physician about available programs. AVOID NICOTINE IN ALL FORMS This includes all tobacco products, whether chewed, smoked, vaped, or rubbed on the skin. Smoking cessation programs, which can make use of tobacco substitutes, medications to suppress cravings and behavior management, are available. Please contact your family physician about programs in your area. Referring Provider: MICHAEL ORTEZ [[id number]] Allergies As of Date: 06/22/2018 (No Known Allergies) Date Reviewed: 06/22/2018 Reviewed by: Gene Arshad RN - Fully Assessed Reason for Visit: Recheck [92] Primary Visit Diagnosis:Nonrheumatic aortic valve stenosis [I35.0] Other Visit Diagnosis:Hypertension, essential [I10] Order(s):ECG COMPLETE W INTERPRETATION [ECG01] Order #: [id number] FUTURE Prescriptions as of 06/22/2018 Sig: AMLODIPINE 10 MG TABLET TAKE 1 TABLET BY MOUTH EVERY * LOW-DOSE ASPIRIN ORAL Take 1 tablet by mouth once d* LABETALOL 300 MG TABLET Take 1 tablet by mouth every * FENOFIBRATE 160 MG TABLET take 1 tablet once a day for * LISINOPRIL 20 MG-HYDROCHLOROT* Take 2 tablets by mouth every* GLIPIZIDE ER 10 MG TABLET, EX* TAKE 1 TABLET BY MOUTH EVERY * TRUE METRIX GLUCOSE TEST STRIP Test blood sugar twice daily.* UNILET SUPER THIN LANCETS 30 * Test blood sugar(s) 2 times d* VITAMINS A,C,X-TTUB-QKNZGL 7* Take 1 tablet by mouth twice * BUSPIRONE 10 MG TABLET Take 1 tablet by mouth three * DOXEPIN 100 MG CAPSULE Take 1 capsule by mouth daily* TRAZODONE 100 MG TABLET Take 1 tablet by mouth daily * BLOOD-GLUCOSE METER KIT Glucose Meter of Choice - Kit* Problem List As Of Date 06/22/2018 Noted Resolved Essential hypertension [I10] Impaired glucose metabolism [R73.09] 08/16/2016 More... Hyperlipidemia [E78.5] Nonspecific abnormal results of liver function * 12/05/2017 Bipolar disorder, unspecified (HCC) [F31.9] More... Chronic kidney disease (CKD), stage III (modera*INVALID FOR* More... Mitral regurgitation [I34.0] INVALID FOR* Aortic stenosis [I35.0] INVALID FOR* Personal history of smoking [Z87.891] INVALID FOR*08/18/2016 More... 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 Please give serious thought to the following areas and commit to making oysterman changes. EAT A WHOLE FOOD, PLANT BASED DIET The nutrition your body gets is more important than the medicine you take. What matters most is the overall way you eat. We encourage you to minimize the use of animal products (which include dairy and all meats except fatty fish) and use whole, unprocessed plant foods to provide your protein, vitamins and other nutrients. We have a lot of information to share with you on this topic. This is not a diet. It is a way of life that you will keep with you. EXERCISE REGULARLY It is not important to spend hours in the gym, lifting weights and perspiring heavily. A total of 2-3 hours per week of aerobic (causing you to be moderately short of breath) exercise is sufficient to improve your health. Talk to us before you begin a new exercise program, if you have heart disease or experience shortness of breath or chest pain. REDUCE STRESS Chronic emotional and physical stress leads to disease. Ways of reducing stress include meditation, visualization, prayer, yoga and other forms of relaxation therapy. Consistency is the collier. Find a technique that works for you and do it every day. CULTIVATE RELATIONSHIPS Loneliness and isolation have a major negative impact on health. Seek out others who can love, care for and nurture you. Avoid hurtful relationships. MAINTAIN IDEAL BODY WEIGHT The best way to do this is to do all the things above. Our bodies naturally find the right weight if we keep moving and feed ourselves the right food. If your BMI is greater than 25, we strongly recommend a referral to a weight management program. Please speak to us or your family physician about available programs. AVOID NICOTINE IN ALL FORMS This includes all tobacco products, whether chewed, smoked, vaped, or rubbed on the skin. Smoking cessation programs, which can make use of tobacco substitutes, medications to suppress cravings and behavior management, are available. Please contact your family physician about programs in your area. Follow-up and Disposition History Recorded Encounter Status:Closed by MICHAEL ORTEZ MD on 06/23/18 PROGRESS Observed: 05/03/2018 Status: COMPLETED Source: [place] 9:[address] [facility] [place] REPOSITORY O ID: [id number] Author: Rachel Dhillon LPN Service: (none) Author Type: (none) Type: Progress Notes Filed: 05/03/2018 9:26 AM Note Text: Manual Readin/88 Pulse: 60 AVERAGE: 122/67 Repeat BP Check: 122/67 P69 #1 131/71 P69 #2 130/66 P68 #3 124/63 P68 #4 115/67 P69 #5 108/66 P70 #6 Reason for blood pressure check - Last BP elevated and Medication adjustment. Blood pressure 145/67 on 04/05/18, Started labetalol twice daily then. Patient is: Taking medication as prescribed Yes Took medication today Yes If no, date medication last taken na Experiencing side effects No Pt denies chest pain, sob, headaches AND dizziness. Pt denies tobacco use or exposure. Has 1 cup of caffeinated coffee daily. Pt is alert AND oriented. Pt has been identified by name and birthdate: Yes Allergies reviewed: Yes Latex allergy: no. Health Maintenance: Reviewed and not up to date and provider notified Medication - prescribed and OTC reviewed and updated: Yes Do you need any prescription refills prior to your next visit: No Pt advised he will be contacted by pcp after review. Rachel Dhillon LPN CNNURSE Observed: 05/03/2018 Status: COMPLETED Source: [place] 9:15 AM [facility] REPOSITORY Nurse Visit ([facility]) TIRSO CALDERÓN ([id number]) 1935 M Date Time Provider Department [facility]18 [facility] your visit today, we recorded the following information about you: Rachel Dhillon LPN 05/03/2018 9:26 AM Signed Manual Readin/88 Pulse: 60 AVERAGE: 122/67 Repeat BP Check: 122/67 P69 #1 131/71 P69 #2 130/66 P68 #3 124/63 P68 #4 115/67 P69 #5 108/66 P70 #6 Reason for blood pressure check - Last BP elevated and Medication adjustment. Blood pressure 145/67 on 04/05/18, Started labetalol twice daily then. Patient is: Taking medication as prescribed Yes Took medication today Yes If no, date medication last taken na Experiencing side effects No Pt denies chest pain, sob, headaches AND dizziness. Pt denies tobacco use or exposure. Has 1 cup of caffeinated coffee daily. Pt is alert AND oriented. Pt has been identified by name and birthdate: Yes Allergies reviewed: Yes Latex allergy: no. Health Maintenance: Reviewed and not up to date and provider notified Medication - prescribed and OTC reviewed and updated: Yes Do you need any prescription refills prior to your next visit: No Pt advised he will be contacted by pcp after review. Rachel Dhillon LPN Referring Provider: JEREMI CHOE [[id number]] Allergies As of Date: 05/03/2018 (No Known Allergies) Date Reviewed: 05/03/2018 Reviewed by: Rachel Dhillon LPN - Fully Assessed Reason for Visit: Blood Pressure Check [195] Visit Diagnosis:Hypertension, essential [I10] Prescriptions as of 05/03/2018 Sig: LOW-DOSE ASPIRIN ORAL Take 1 tablet by mouth once d* LABETALOL 300 MG TABLET Take 1 tablet by mouth every * FENOFIBRATE 160 MG TABLET take 1 tablet once a day for * LISINOPRIL 20 MG-HYDROCHLOROT* Take 2 tablets by mouth every* GLIPIZIDE ER 10 MG TABLET, EX* TAKE 1 TABLET BY MOUTH EVERY * TRUE METRIX GLUCOSE TEST STRIP Test blood sugar twice daily.* UNILET SUPER THIN LANCETS 30 * Test blood sugar(s) 2 times d* AMLODIPINE 10 MG TABLET Take 1 tablet by mouth once d* VITAMINS A,C,M-QFYM-POFTFX 7* Take 1 tablet by mouth twice * BLOOD-GLUCOSE METER KIT Glucose Meter of Choice - Kit* BUSPIRONE 10 MG TABLET Take 1 tablet by mouth three * DOXEPIN 100 MG CAPSULE Take 1 capsule by mouth daily* TRAZODONE 100 MG TABLET Take 1 tablet by mouth daily * Problem List As Of Date 05/03/2018 Noted Resolved Essential hypertension [I10] Impaired glucose metabolism [R73.09] 08/16/2016 More... Hyperlipidemia [E78.5] Nonspecific abnormal results of liver function * 12/05/2017 Bipolar disorder, unspecified (HCC) [F31.9] More... Chronic kidney disease (CKD), stage III (modera*INVALID FOR* More... Mitral regurgitation [I34.0] INVALID FOR* Aortic stenosis [I35.0] INVALID FOR* Personal history of smoking [Z87.891] INVALID FOR*08/18/2016 More... 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) [E11.22, N1*INVALID FOR* Vitamin D deficiency [E55.9] INVALID FOR* Spondylosis of lumbar region without myelopathy*INVALID FOR* Skin nodule [R22.9] INVALID FOR* Encounter Status:Closed by RACHEL DHILLON LPN on 05/03/18 PROGRESS Observed: 04/05/2018 Status: COMPLETED Source: [place] 8:48 AM [facility] REPOSITORY HNO ID: [id number] Author: Jeremi Choe Service: (none) Author Type: Physician Type: Progress Notes Filed: 04/05/2018 9:14 AM Note Text: This note was created using NoteWriter. Subjective Tirso Calderón is a 82 year old male here for diabetes mellitus. He did not tolerate metformin. He otherwise felt well. His hypertension was not well controlled. On further review, he was taking labetalol 7am and 1pm. Review of Systems Constitutional: Negative. Objective BP 145/67 (BP Site: Left Arm, BP Position: Sitting, BP Cuff Size: Regular Adult) Pulse 68 Temp 36.2 ?C (97.2 ?F) (Left Tympanic) Resp 16 Wt 97.5 kg (215 lb) BMI 30.85 kg/m? Physical Exam Constitutional: No distress. Glucose meter data or log was reviewed. Range: 113-163 fasting. 216-258 2 hours post breakfast. Average: n/a. P Hemoglobin A1C (%) Date Value 03/28/2018 6.7 . CMP: Glucose 149 03/28/2018 BUN 19 03/28/2018 Creatinine 1.33 03/28/2018 Sodium 138 03/28/2018 Potassium 4.0 03/28/2018 Chloride 99 03/28/2018 CO2 24 03/28/2018 Protein, Total 7.1 08/30/2017 Albumin 4.4 08/30/2017 Calcium 9.6 03/28/2018 Alkaline Phosphatase 62 08/30/2017 Bilirubin, Total 0.4 08/30/2017 AST 69 08/30/2017 ALT 30 11/27/2017 Assessment and Plan 1. Essential hypertension - ICD9: 401.9, ICD10: I10 (primary diagnosis) - suboptimal control - Continue current medication(s) - Dose labetalol 12 hours apart. BP true in 1 month. If not controlled, add 100 mg labetalol at noon. 2. Type 2 diabetes mellitus with stage 3 chronic kidney disease, without long-term current use of insulin (HCC) - ICD9: 250.40, 585.3, ICD10: E11.22, N18.3 improved control - Continue current medications - Portion and carb control discussed. 3. Bipolar affective disorder, remission status unspecified (HCC) - ICD9: 296.80, ICD10: F31.9 Stable. 4. Hyperlipidemia, unspecified hyperlipidemia type - ICD9: 272.4, ICD10: E78.5 - good control - Continue current medication. During this patient visit I have spent approximately 25 minutes out of 25 in counseling regarding treatment options, medications and test results. Jeremi Choe MD CNOV Observed: 04/05/2018 Status: COMPLETED Source: [place] 8:00 AM [facility] REPOSITORY Office Visit (INTMWS) TIRSO CALDERÓN ([id number]) 1935 M Date Time Provider Department 04/05/18 8:00 AM JEREMI CHOE INTMWS During your visit today, we recorded the following information about you: Temperature Pulse Respiration Blood pressure 97.2 degrees 68/minute 16/minute 145/67 Weight 97.5 kg Jeremi Choe MD 04/05/2018 9:14 AM Signed This note was created using [employer]. Subjective Tirso Calderón is a 82 year old male here for diabetes mellitus. He did not tolerate metformin. He otherwise felt well. His hypertension was not well controlled. On further review, he was taking labetalol 7am and 1pm. Review of Systems Constitutional: Negative. Objective BP 145/67 (BP Site: Left Arm, BP Position: Sitting, BP Cuff Size: Regular Adult) Pulse 68 Temp 36.2 ?C (97.2 ?F) (Left Tympanic) Resp 16 Wt 97.5 kg (215 lb) BMI 30.85 kg/m? Physical Exam Constitutional: No distress. Glucose meter data or log was reviewed. Range: 113-163 fasting. 216-258 2 hours post breakfast. Average: n/a. P Hemoglobin A1C (%) Date Value 03/28/2018 6.7 . CMP: Glucose 149 03/28/2018 BUN 19 03/28/2018 Creatinine 1.33 03/28/2018 Sodium 138 03/28/2018 Potassium 4.0 03/28/2018 Chloride 99 03/28/2018 CO2 24 03/28/2018 Protein, Total 7.1 08/30/2017 Albumin 4.4 08/30/2017 Calcium 9.6 03/28/2018 Alkaline Phosphatase 62 08/30/2017 Bilirubin, Total 0.4 08/30/2017 AST 69 08/30/2017 ALT 30 11/27/2017 Assessment and Plan 1. Essential hypertension - ICD9: 401.9, ICD10: I10 (primary diagnosis) - suboptimal control - Continue current medication(s) - Dose labetalol 12 hours apart. BP true in 1 month. If not controlled, add 100 mg labetalol at noon. 2. Type 2 diabetes mellitus with stage 3 chronic kidney disease, without long-term current use of insulin (HCC) - ICD9: 250.40, 585.3, ICD10: E11.22, N18.3 improved control - Continue current medications - Portion and carb control discussed. 3. Bipolar affective disorder, remission status unspecified (HCC) - ICD9: 296.80, ICD10: F31.9 Stable. 4. Hyperlipidemia, unspecified hyperlipidemia type - ICD9: 272.4, ICD10: E78.5 - good control - Continue current medication. During this patient visit I have spent approximately 25 minutes out of 25 in counseling regarding treatment options, medications and test results. Jeremi Choe MD Referring Provider: JEREMI CHOE [[id number]] Allergies As of Date: 04/05/2018 (No Known Allergies) Date Reviewed: 04/05/2018 Reviewed by: Khadra Madison LPN - Fully Assessed Reason for Visit: 4 month follow-up [Other] Primary Visit Diagnosis:Essential hypertension [I10] Other Visit Diagnoses:Type 2 diabetes mellitus with stage 3 chronic kidney disease, without long-term current use of insulin (HCC) [E11.22, N18.3] Bipolar affective disorder, remission status unspecified (HCC) [F31.9] Hyperlipidemia, unspecified hyperlipidemia type [E78.5] Order(s):labetalol (TRANDATE) 300 mg tabletTake 1 tablet by mouth every 12 hours. Morning and evening.Disp: 180 tabletRfl: 3 Prescriptions as of 04/05/2018 Sig: LOW-DOSE ASPIRIN ORAL Take 1 tablet by mouth once d* LABETALOL 300 MG TABLET Take 1 tablet by mouth every * FENOFIBRATE 160 MG TABLET take 1 tablet once a day for * LISINOPRIL 20 MG-HYDROCHLOROT* Take 2 tablets by mouth every* GLIPIZIDE ER 10 MG TABLET, EX* TAKE 1 TABLET BY MOUTH EVERY * TRUE METRIX GLUCOSE TEST STRIP Test blood sugar twice daily.* UNILET SUPER THIN LANCETS 30 * Test blood sugar(s) 2 times d* AMLODIPINE 10 MG TABLET Take 1 tablet by mouth once d* VITAMINS A,C,H-NQEY-NYPYPP 7* Take 1 tablet by mouth twice * BLOOD-GLUCOSE METER KIT Glucose Meter of Choice - Kit* BUSPIRONE 10 MG TABLET Take 1 tablet by mouth three * DOXEPIN 100 MG CAPSULE Take 1 capsule by mouth daily* TRAZODONE 100 MG TABLET Take 1 tablet by mouth daily * Medication notes this encounter METFORMIN ER 500 MG TABLET,EXTENDED RELEASE 24 HR >> Jerzy MD Дмитрий 04/05/2018 8:25 AM diarrhea Problem List As Of Date 04/05/2018 Noted Resolved Essential hypertension [I10] Impaired glucose metabolism [R73.09] 08/16/2016 More... Hyperlipidemia [E78.5] Nonspecific abnormal results of liver function * 12/05/2017 Bipolar disorder, unspecified (HCC) [F31.9] More... Chronic kidney disease (CKD), stage III (modera*INVALID FOR* More... Mitral regurgitation [I34.0] INVALID FOR* Aortic stenosis [I35.0] INVALID FOR* Personal history of smoking [Z87.891] INVALID FOR*08/18/2016 More... 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) [E11.22, N1*INVALID FOR* Vitamin D deficiency [E55.9] INVALID FOR* Spondylosis of lumbar region without myelopathy*INVALID FOR* Skin nodule [R22.9] INVALID FOR* Prescriptions ordered this encounter Disp Refills Start End LABETALOL 300 MG TABLET 180 * 3 04/05/2018 Route: ORAL Sig: Take 1 tablet by mouth every 12 hours. Morning and evening. Medications Discontinued During This Encounter metFORMIN ER (GLUCOPHAGE XR) 500 mg * 30 t* 5 12/05/2017 04/05/2018 Route: ORAL Sig: Take 1 tablet by mouth daily with breakfast. Patient not taking: Reported on 04/05/2018 Disc: Side Effects labetalol (TRANDATE) 300 mg tablet 180 * 3 05/03/2017 04/05/2018 Cmt: Med-sync patient. If too soon, we will put new RX on hold for next cycle. Sig: Take 1 tablet by mouth twice daily. Disc: Reason for discontinue is not on file. Disposition: Return in about 5 months (around 09/05/2018). Follow-up and Disposition History Recorded Encounter Status:Closed by JEREMI CHOE MD on 04/05/18 CBC Collected: 03/28/2018 Status: F Source: [place] 7:36 AM [facility] REPOSITORY TYPE CODE TESTS RESULT OUT OF REFERENCE UNITS RANGE LAB WBC 3.70-11.00 k/uL WBC 6.18 LAB RBC 4.20-6.00 m/uL RBC 4.51 LAB HGB 13.0-17.0 g/dL Low Hemoglobin 12.6 LAB HCT 39.0-51.0 % Low Hematocrit 38.2 LAB MCV 80.0-100.0 fL MCV 84.7 LAB MCH 26.0-34.0 pG MCH 27.9 LAB MCHC 30.5-36.0 g/dL MCHC 33.0 LAB RDWCV 11.5-15.0 % RDW-CV 13.9 LAB PLTCT 150-400 k/uL Platelet Count 177 LAB MPV 9.0-12.7 fL MPV 10.2 LAB ABSNUC <0.01 k/uL Absolute nRBC <0.01 Performed By: #### CBC, BMP, HBA1C #### [facility] [address] [place], [place] [address] BASIC METABOLIC PANL Collected: 03/28/2018 Status: F Source: [place] 7:36 AM [facility] REPOSITORY TYPE CODE TESTS RESULT OUT OF REFERENCE UNITS RANGE LAB GLU 74-99 mg/dL High Glucose 149 Result Comment: The [place] [employer] (ADA) provides guidance for cutoff values for fasting glucose and random glucose. The ADA defines fasting as no caloric intake for at least 8 hours. Fas ting plasma glucose results between 100 to 125 mg/dL indicate increased risk for diabetes (prediabetes). Fasting plasma glucose results greater than or equal to 126 mg/dL meet the criteria for diagnosis of diabetes. In the absence of unequivocal hyperglycemia, results should be confirmed by repeat testing. In a patient with classic symptoms of hyperglycemia or hyperglycemic crisis, random plasma glucose results greater than or equal to 200 mg/dL meet the criteria for diagnosis of diabetes. Reference: Standards of Medical Care in Diabetes 2016, [place] [employer]. Diabetes Care. 2016.39(Suppl 1). LAB BUN 9-24 mg/dL BUN 19 LAB CRET 0.73-1.22 mg/dL Creatinine High 1.33 LAB NA 136-144 mmol/L Sodium 138 LAB K 3.7-5.1 mmol/L Potassium 4.0 LAB CL 97-105 mmol/L Chloride 99 LAB CO2 22-30 mmol/L CO2 24 LAB AGAP 9-18 mmol/L Anion Gap 15 LAB CA 8.5-10.2 mg/dL Calcium, Total 9.6 LAB GFRAA eGFR- Amer. >60 LAB GFRNAA . eGFR-All Other Races 52 Result Comment: eGFR (Estimated GFR) Units of measure: mL/min/1.73 meters squared eGFR is derived from the reexpressed MDRD Study equation using the following parameters: serum creatinine, age, gender and race. The creatinine assay has been calibrated to be traceable to IDMS. An eGFR <60 mL/min/1.73m2 for >3 months is consistent with chronic kidney disease. Refer to KDOQI guidelines for clinical interpretation. In patients with unstable renal function, e.g. those with acute kidney injury, the eGFR may not accurately reflect actual GFR. Performed By: #### CBC, BMP, HBA1C #### [facility] [address] [place] [id number] HEMOGLOBIN A1C Collected: 03/28/2018 Status: F Source: [place] 7:[address] [facility] REPOSITORY TYPE CODE TESTS RESULT OUT OF REFERENCE UNITS RANGE LAB HGBA1C 4.3-5.6 % High Hemoglobin A1c 6.7 LAB HBA0 mg/dL Est. Average Glucose 146 Result Comment: eAG: (Estimated average glucose) is a calculated value from HgbA1c and is title insurance sales representative of the average blood glucose level in the last 2-3 month period. Performed By: #### CBC, BMP, HBA1C #### [facility] [address] [place], [place] [address] PROGRESS Observed: 12/22/2017 Status: COMPLETED Source: [place] 9:51 AM [facility] CAMP[facility] REPOSITORY HNO ID: [id number] Author: Michael Ortez Service: (none) Author Type: Physician Type: Progress Notes Filed: 12/22/2017 6:14 PM Note Text: PERTINENT CARDIAC HISTORY Aortic stenosis - moderately severe Mitral insufficiency - mild HTN HL DM CRF LBBB ADHERENCE TO GUIDELINES WEI-I or ARB for HF with prior LVEF<40 (NQF 0081) - N/A ASA or Plavix for ASHD (NQF 0067) - met Beta elijah for ASHD with prior UT or prior LVEF<40 (NQF 0070) - N/A Beta elijah for HF with prior LVEF<40 (NQF 0083) - N/A WEI-I or ARB for ASHD with DM or prior LVEF<40 (NQF 0066) - met Statin therapy for ASHD or FHL or DM - fibrate BMI documented and plan if >25 (NQF 0421) - lifestyle recommendation form Tobacco use screening and referral (NQF 0028) - lifestyle recommendation form Recommendation for whole food, plant based diet - lifestyle recommendation form CLINICAL IMPRESSION/PLAN: Tirso Calderón has progressive aortic valvular disease, but stable exercise tolerance. I questioned him several times on this. His blood pressure has been somewhat labile. I've asked him to check blood pressures twice daily at home for the next week and contact us. Adjustments in his medication may need to be made. This has been a problem for him in the past. He will likely need an aortic valve procedure is in the next year or 2. I will see him in 6 months, at which time we will repeat his gradients. If he has decreased exercise tolerance I've asked him to contact me promptly. Written and verbal health teaching given to patient, patient verbalizes understanding and agrees with treatment plan. This note was generated using [employer] voice recognition system, and there may be some incorrect words, spellings, and punctuation that were not noted in checking the note before saving. DIAGNOSIS FOR VISIT: Aortic stenosis HISTORY OF PRESENT ILLNESS Tirso Calderón returns for follow-up of his valvular heart disease. He reports stable exercise tolerance. He's had no chest discomfort. He has been doing some work outside in the snow. He denies orthopnea, edema, syncope, palpitations, TIAs, amaurosis or claudication. He reports his cataract surgery was uncomplicated. ALLERGIES: ALLERGIES No Known Allergies CURRENT OUTPATIENT MEDICATIONS: lisinopril-hydrochlorothiazide (PRINZIDE,ZESTORETIC) 20-12.5 mg per tablet Take 2 tablets by mouth every morning. For blood pressure. metFORMIN ER (GLUCOPHAGE XR) 500 mg 24 hr tablet Take 1 tablet by mouth daily with breakfast. glipiZIDE XL (GLUCOTROL XL) 10 mg 24 hr tablet TAKE 1 TABLET BY MOUTH EVERY DAY BEFORE BREAKFAST TRUE METRIX GLUCOSE TEST STRIP test strip Test blood sugar twice daily. Non-insulin UNILET SUPER THIN LANCETS 30 gauge misc Test blood sugar(s) 2 times daily. Dx: Type 2 DM- Uncontrolled Code E11.22 Insulin: No Fenofibrate (LOFIBRA) 160 mg tablet Take 1 tablet by mouth once daily. For triglycerides. amLODIPine (NORVASC) 10 mg tablet Take 1 tablet by mouth once daily. labetalol (TRANDATE) 300 mg tablet Take 1 tablet by mouth twice daily. vit A,C,C-Jdil-Fgvhbf (PRESERVISION AREDS) 7,160-113-100 pnew-bu-ubmv tab Take 1 tablet by mouth twice daily with meals. Blood-Glucose Meter monitoring kit Glucose Meter of Choice - Kit - Dx: Type 2 DM - Uncontrolled E11.22 busPIRone (BUSPAR) 10 mg tablet Take 1 tablet by mouth three times daily. doxepin (SINEQUAN) 100 mg capsule Take 1 capsule by mouth daily at bedtime. traZODone (DESYREL) 100 mg tablet Take 1 tablet by mouth daily at bedtime. PHYSICAL EXAMINATION: VITAL SIGNS: BP 150/72 Pulse 80 Wt 218 lb 12.8 oz (99.2kg) Chest: Clear to percussion and auscultation. Trachea is midline. Air entry is equal. Cardiac: Regular rhythm. S1 and S2 are normal. PMI is nondisplaced. There is a 3/6 mid systolic murmur of aortic stenosis. Carotids are somewhat delayed. JVP is less than 10 cm. Abdomen: Soft and nontender. Obesity limits palpation. There are no pulsatile masses or bruits. No liver enlargement. Bowel sounds are active. Extremities: No edema. Pulses are intact and symmetrical. Recent labs were reviewed. Renal function has fallen slightly. LDL was 65. Recent echocardiogram was reviewed. He has had progression of his aortic valve gradients. Stenosis is now in the moderately severe range. Electronically Signed: Michael Ortez MD December 22, 2017 9:51 AM CC: Jeremi Choe MD CNOV Observed: 12/22/2017 Status: COMPLETED Source: [place] 9:[address] [facility] REPOSITORY Office Visit (AGCARDWST) TIRSO CALDERÓN ([id number]) 1935 M Date Time Provider Department 12/22/17 9:30 AM MICHAEL ORTEZ AGCARDWST During your visit today, we recorded the following information about you: Pulse Blood pressure Weight 80/minute 150/72 99.2 kg Michael Ortez MD 12/22/2017 6:14 PM Addendum PERTINENT CARDIAC HISTORY Aortic stenosis - moderately severe Mitral insufficiency - mild HTN HL DM CRF LBBB ADHERENCE TO GUIDELINES WEI-I or ARB for HF with prior LVEF<40 (NQF 0081) - N/A ASA or Plavix for ASHD (NQF 0067) - met Beta elijah for ASHD with prior UT or prior LVEF<40 (NQF 0070) - N/A Beta elijah for HF with prior LVEF<40 (NQF 0083) - N/A WEI-I or ARB for ASHD with DM or prior LVEF<40 (NQF 0066) - met Statin therapy for ASHD or FHL or DM - fibrate BMI documented and plan if >25 (NQF 0421) - lifestyle recommendation form Tobacco use screening and referral (NQF 0028) - lifestyle recommendation form Recommendation for whole food, plant based diet - lifestyle recommendation form CLINICAL IMPRESSION/PLAN: Tirso Calderón has progressive aortic valvular disease, but stable exercise tolerance. I questioned him several times on this. His blood pressure has been somewhat labile. I've asked him to check blood pressures twice daily at home for the next week and contact us. Adjustments in his medication may need to be made. This has been a problem for him in the past. He will likely need an aortic valve procedure is in the next year or 2. I will see him in 6 months, at which time we will repeat his gradients. If he has decreased exercise tolerance I've asked him to contact me promptly. Written and verbal health teaching given to patient, patient verbalizes understanding and agrees with treatment plan. This note was generated using [employer] voice recognition system, and there may be some incorrect words, spellings, and punctuation that were not noted in checking the note before saving. DIAGNOSIS FOR VISIT: Aortic stenosis HISTORY OF PRESENT ILLNESS Tirso Calderón returns for follow-up of his valvular heart disease. He reports stable exercise tolerance. He's had no chest discomfort. He has been doing some work outside in the snow. He denies orthopnea, edema, syncope, palpitations, TIAs, amaurosis or claudication. He reports his cataract surgery was uncomplicated. ALLERGIES: ALLERGIES No Known Allergies CURRENT OUTPATIENT MEDICATIONS: lisinopril-hydrochlorothiazide (PRINZIDE,ZESTORETIC) 20-12.5 mg per tablet Take 2 tablets by mouth every morning. For blood pressure. metFORMIN ER (GLUCOPHAGE XR) 500 mg 24 hr tablet Take 1 tablet by mouth daily with breakfast. glipiZIDE XL (GLUCOTROL XL) 10 mg 24 hr tablet TAKE 1 TABLET BY MOUTH EVERY DAY BEFORE BREAKFAST TRUE METRIX GLUCOSE TEST STRIP test strip Test blood sugar twice daily. Non-insulin UNILET SUPER THIN LANCETS 30 gauge misc Test blood sugar(s) 2 times daily. Dx: Type 2 DM- Uncontrolled Code E11.22 Insulin: No Fenofibrate (LOFIBRA) 160 mg tablet Take 1 tablet by mouth once daily. For triglycerides. amLODIPine (NORVASC) 10 mg tablet Take 1 tablet by mouth once daily. labetalol (TRANDATE) 300 mg tablet Take 1 tablet by mouth twice daily. vit A,C,Q-Kncf-Yeqfue (PRESERVISION AREDS) 7,160-113-100 mkps-af-jlgx tab Take 1 tablet by mouth twice daily with meals. Blood-Glucose Meter monitoring kit Glucose Meter of Choice - Kit - Dx: Type 2 DM - Uncontrolled E11.22 busPIRone (BUSPAR) 10 mg tablet Take 1 tablet by mouth three times daily. doxepin (SINEQUAN) 100 mg capsule Take 1 capsule by mouth daily at bedtime. traZODone (DESYREL) 100 mg tablet Take 1 tablet by mouth daily at bedtime. PHYSICAL EXAMINATION: VITAL SIGNS: BP 150/72 Pulse 80 Wt 218 lb 12.8 oz (99.2kg) Chest: Clear to percussion and auscultation. Trachea is midline. Air entry is equal. Cardiac: Regular rhythm. S1 and S2 are normal. PMI is nondisplaced. There is a 3/6 mid systolic murmur of aortic stenosis. Carotids are somewhat delayed. JVP is less than 10 cm. Abdomen: Soft and nontender. Obesity limits palpation. There are no pulsatile masses or bruits. No liver enlargement. Bowel sounds are active. Extremities: No edema. Pulses are intact and symmetrical. Recent labs were reviewed. Renal function has fallen slightly. LDL was 65. Recent echocardiogram was reviewed. He has had progression of his aortic valve gradients. Stenosis is now in the moderately severe range. Electronically Signed: Michael Ortez MD December 22, 2017 9:51 AM CC: MD Michael Hernandez MD 12/22/2017 9:51 AM Signed LIFESTYLE CHANGE A healthy lifestyle is the most important component of your overall treatment plan. Please give serious thought to the following areas and commit to making usp changes. EAT A WHOLE FOOD, PLANT BASED DIET The nutrition your body gets is more important than the medicine you take. What matters most is the overall way you eat. We encourage you to minimize the use of animal products (which include dairy and all meats except fatty fish) and use whole, unprocessed plant foods to provide your protein, vitamins and other nutrients. We have a lot of information to share with you on this topic. We also hold Shared Medical Appointments, where you can come visit with Dr. Ortez in the company of other patients and spend over an hour talking about the challenges of changing the way you eat. This is not a diet. It is a way of life that you will keep with you. EXERCISE REGULARLY It is not important to spend hours in the gym, lifting weights and perspiring heavily. A total of 2-3 hours per week of aerobic (causing you to be moderately short of breath) exercise is sufficient to improve your health. Talk to us before you begin a new exercise program, if you have heart disease or experience shortness of breath or chest pain. REDUCE STRESS Chronic emotional and physical stress leads to disease. Ways of reducing stress include meditation, visualization, prayer, yoga and other forms of relaxation therapy. Consistency is the collier. Find a technique that works for you and do it every day. CULTIVATE RELATIONSHIPS Loneliness and isolation have a major negative impact on health. Seek out others who can love, care for and nurture you. Avoid hurtful relationships. MAINTAIN IDEAL BODY WEIGHT The best way to do this is to do all the things above. Our bodies naturally find the right weight if we keep moving and feed ourselves the right food. If your BMI is greater than 25, we strongly recommend a referral to a weight management program. Please speak to us or your family physician about available programs. AVOID NICOTINE IN ALL FORMS This includes all tobacco products, whether chewed, smoked, vaped, or rubbed on the skin. Smoking cessation programs, which can make use of tobacco substitutes, medications to suppress cravings and behavior management, are available. Please contact your family physician about programs in your area. Referring Provider: MICHAEL ORTEZ [[id number]] Allergies As of Date: 12/22/2017 (No Known Allergies) Date Reviewed: 12/22/2017 Reviewed by: Kristina Kc - Fully Assessed Reason for Visit: Recheck [92] Primary Visit Diagnosis:Nonrheumatic aortic valve stenosis [I35.0] Other Visit Diagnosis:Hypertension, essential [I10] Prescriptions as of 12/22/2017 Sig: LISINOPRIL 20 MG-HYDROCHLOROT* Take 2 tablets by mouth every* X METFORMIN ER 500 MG TABLET,EX* Take 1 tablet by mouth daily * Patient not taking: Reported on 04/05/2018 GLIPIZIDE ER 10 MG TABLET, EX* TAKE 1 TABLET BY MOUTH EVERY * TRUE METRIX GLUCOSE TEST STRIP Test blood sugar twice daily.* UNILET SUPER THIN LANCETS 30 * Test blood sugar(s) 2 times d* X FENOFIBRATE 160 MG TABLET Take 1 tablet by mouth once d* X AMLODIPINE 10 MG TABLET Take 1 tablet by mouth once d* X LABETALOL 300 MG TABLET Take 1 tablet by mouth twice * VITAMINS A,C,Z-MVZO-JYXTBX 7* Take 1 tablet by mouth twice * BLOOD-GLUCOSE METER KIT Glucose Meter of Choice - Kit* BUSPIRONE 10 MG TABLET Take 1 tablet by mouth three * DOXEPIN 100 MG CAPSULE Take 1 capsule by mouth daily* TRAZODONE 100 MG TABLET Take 1 tablet by mouth daily * Problem List As Of Date 12/22/2017 Noted Resolved Essential hypertension [I10] Impaired glucose metabolism [R73.09] 08/16/2016 More... Hyperlipidemia [E78.5] Nonspecific abnormal results of liver function * 12/05/2017 Bipolar disorder, unspecified (HCC) [F31.9] More... Chronic kidney disease (CKD), stage III (modera*INVALID FOR* More... Mitral regurgitation [I34.0] INVALID FOR* Aortic stenosis [I35.0] INVALID FOR* Personal history of smoking [Z87.891] INVALID FOR*08/18/2016 More... 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 Please give serious thought to the following areas and commit to making oysterman changes. EAT A WHOLE FOOD, PLANT BASED DIET The nutrition your body gets is more important than the medicine you take. What matters most is the overall way you eat. We encourage you to minimize the use of animal products (which include dairy and all meats except fatty fish) and use whole, unprocessed plant foods to provide your protein, vitamins and other nutrients. We have a lot of information to share with you on this topic. We also hold Shared Medical Appointments, where you can come visit with Dr. Ortez in the company of other patients and spend over an hour talking about the challenges of changing the way you eat. This is not a diet. It is a way of life that you will keep with you. EXERCISE REGULARLY It is not important to spend hours in the gym, lifting weights and perspiring heavily. A total of 2-3 hours per week of aerobic (causing you to be moderately short of breath) exercise is sufficient to improve your health. Talk to us before you begin a new exercise program, if you have heart disease or experience shortness of breath or chest pain. REDUCE STRESS Chronic emotional and physical stress leads to disease. Ways of reducing stress include meditation, visualization, prayer, yoga and other forms of relaxation therapy. Consistency is the collier. Find a technique that works for you and do it every day. CULTIVATE RELATIONSHIPS Loneliness and isolation have a major negative impact on health. Seek out others who can love, care for and nurture you. Avoid hurtful relationships. MAINTAIN IDEAL BODY WEIGHT The best way to do this is to do all the things above. Our bodies naturally find the right weight if we keep moving and feed ourselves the right food. If your BMI is greater than 25, we strongly recommend a referral to a weight management program. Please speak to us or your family physician about available programs. AVOID NICOTINE IN ALL FORMS This includes all tobacco products, whether chewed, smoked, vaped, or rubbed on the skin. Smoking cessation programs, which can make use of tobacco substitutes, medications to suppress cravings and behavior management, are available. Please contact your family physician about programs in your area. Encounter Status:Closed by MICHAEL ORTEZ MD on 12/22/17 ALLERGIES ALLERGIES DATE TYPE / CODE NAME / CODE REACTION SEVERITY SOURCE 10/30/2018 Drug No Known Unknown [facility] Allergy/416 Allergies/W51040 [facility] 252639(SNOM 0388(RXNORM) Repository ED CT) Drug NO KNOWN [facility] Class/44626 ALLERGIES Other [place] 1003(SNOMED Repository CT) /[id number] NO KNOWN [facility] 6(SNOMED ALLERGIES Health System CT) Repository ENCOUNTERS ENCOUNTERS ADMIT/DISCHARGE ACCOUNT NUMBER ADMITTING ENCOUNTER LOCATION SOURCE CLASS 12/06/2018 [id number] Ambulatory ABuilding:[facility] Repository 12/06/2018 [id number] Ambulatory ABuilding:NERISSA [facility] Repository 12/06/2018 [id number] [facility] 11/21/2018/11/21/19 [id number] Ambulatory [address] Repository 11/19/2018/11/20/19 [id number] Ambulatory [facility] [place] Repository 10/31/2018/10/31/20 [id number] Ambulatory [facility] ding:[facility] Repository 10/31/2018/10/31/20 [id number] Ambulatory BMSBuilding: [place] [facility] Repository 10/22/2018/10/22/20 [id number] Ambulatory [facility] [place] Repository 10/22/2018/10/22/20 [id number] Ambulatory [facility] [place] Repository 10/22/2018/10/22/20 [id number] Ambulatory [facility] [place] Repository 10/22/2018/10/23/20 [id number] Ambulatory [facility] [place] Repository 09/10/2018/09/12/20 [id number] Ambulatory [facility] [place] Repository 06/26/2018 [id number] Ambulatory [facility] MEDICAL Repository CENTERBuildi ng:IFEOMAWS 06/22/2018/06/25/20 [id number] Ambulatory [facility] [place] Repository 06/22/2018/07/10/20 [id number] Ambulatory [facility] [place] Repository 06/22/2018/06/22/20 [id number] Ambulatory [facility] [place] Repository 05/03/2018/05/04/20 [id number] Ambulatory [facility] [place] Repository 04/05/2018/04/06/20 [id number] Ambulatory [facility] [place] Repository 03/28/2018/03/28/20 [id number] Ambulatory [facility] [place] Repository 12/22/2017/12/22/19 [id number] Ambulatory [facility] [place] Repository 12/22/2017/12/22/19 [id number] Ambulatory [address] MEDICAL Repository CENTERBuildi ng:IFEOMAWS PAYERS PAYERS ENCOUNTER GUARANTOR PAYER SUBSCRIBER SOURCE 10/31/2018 TIRSO [id number] Insurance:CELI SHAVERB[facility] [id number] [address]Ebx: HMOPolicy Number: Repository [id number] (HP) Date:1401-06-62[address] [address]PB: 10/31/2018 Secondary NOT GIVENUNK [place] Insurance:SELF PAY [facility] Number: Effective Repository Date:2018-10-25 10/31/2018 TIRSO E Primary TIRSO Choe [id number] Insurance:CELI RICHARDSONDOB: [facility], [facility] HEALTH PLAN [id number] Medical Center-[facility] [address]Fib: [facility] Number: Repository [id number] (HP) Date:[id number] [place] [address]ZS: 10/31/2018 Secondary NOT GIVENUNK [facility] Insurance:SELF PAY [facility] Number: Effective Repository Date:2018-10-31 06/26/2018 TIRSO E Primary TIRSO [facility] RICHARDSONDOB: Insurance:PRIMETIME RICHARDSONDOB: Health System HEALTH [facility] [id number] Repository [address] [place], Number: [place] [id number]: [id number] Date: (HP) 12/22/2017 TIRSO E Primary TIRSO [facility] RICHARDSONDOB: Insurance:PRIMETIME RICHARDSONDOB: Health System [facility] [id number] Repository [address], Number: [place] [id number]: [id number] Date: (HP)
== END 2018-10-31 14:19 | disposition home or self-care (01) ==
PROVIDERS: Family Provider Internal Medicine; PCP Internal Medicine; Referring Provider Internal Medicine Cardiovascular Disease; Visit Provider Internal Medicine Cardiovascular Disease
DX: I25.10 Atherosclerotic heart disease of native coronary artery without angina pectoris (principal); I35.0 Nonrheumatic aortic (valve) stenosis; I44.7 Left bundle-branch block, unspecified; I12.9 Hypertensive chronic kidney disease with stage 1 through stage 4 chronic kidney disease, or unspecified chronic kidney disease; E11.22 Type 2 diabetes mellitus with diabetic chronic kidney disease; N18.3 Chronic kidney disease, stage 3 (moderate); E78.5 Hyperlipidemia, unspecified; M16.11 Unilateral primary osteoarthritis, right hip; F31.9 Bipolar disorder, unspecified; Z79.899 Other long term (current) drug therapy; Z79.84 Long term (current) use of oral hypoglycemic drugs; Z87.891 Personal history of nicotine dependence
CPT/HCPCS: 93458; J7040; Q9967; C1769; C1894

== ENCOUNTER 2019-01-15 19:00 | Observation (INO) | payer MEDICARE, SELFPAY ==
[2018-10-30 07:22] VITALS: BMI 30.9
[2019-01-15 19:01] VITALS: PULSE 64; RESP 16; TEMP 36.7; O2SAT 187; BMI 31.7
--- NOTE | 2019-01-15 19:11 | EKG12_ITS ---
Test Reason : Blood Pressure : / mmHG Vent. Rate : 061 BPM Atrial Rate : 061 BPM P-R Int : 194 ms QRS Dur : 108 ms QT Int : 460 ms P-R-T Axes : 062 084 153 degrees QTc Int : 463 ms Normal sinus rhythm Incomplete left bundle branch block ST & T wave abnormality, consider lateral ischemia Abnormal ECG Confirmed by MARIETTA FULLER ([id number]), non linear editor AJ MURPHY ([id number]) on 01/18/2019 1:11:42 PM Referred By: WHITLEY Confirmed By:MARIETTA FULLER
--- NOTE | 2019-01-15 19:15 | ED.RN ---
NO OLD EKGS IN MUSE
[2019-01-15 19:29] VITALS: BP 170/65; PULSE 60; RESP 18; O2SAT 95
[2019-01-15 19:33] VITALS: BP 163/70; PULSE 64; RESP 17; TEMP 36.6; O2SAT 97
--- NOTE | 2019-01-15 20:00 | RAD_ITS ---
STUDY: X-RAY CHEST REASON FOR EXAM: Male, 83 years old. Recent bypass. Abnormal hemoglobin TECHNIQUE: Single AP portable view of the chest. COMPARISON: None. FINDINGS: There is interstitial accentuation of the lungs. There is left lower lung atelectasis.. There is small left pleural effusion. Sternal cerclage wires are present from a prior sternotomy. There is aortic valve replacement. Normal mediastinum and jj. Normal visualized pulmonary arteries. There is atherosclerotic calcification of the aortic arch. Normal visualized thoracic spine. Normal visualized ribs, clavicles, and shoulders. There is no demonstrated abnormality of the visualized soft tissue structures of the upper abdomen. RAD/Chest 1 View (Portable) IMPRESSION: Interstitial edema or infiltrates. Small left pleural effusion.ss Electronically Signed: Gareth Leonard MD at 21:12 EST , Service support ,
--- NOTE | 2019-01-15 20:03 | ED.DCSUM_ITS ---
- ER Visit Summary Date of Service: 01/15/19 Chief Complaint: [] Recent CABG valve replacement [facility] shortness of breath abnormal labs nursing center History of Present Illness: The patient is a 83 M [] reports he had a two-vessel CABG unspecified valve replacement 2 weeks ago at [facility] he has been at the nursing center ever since he reports postop he has progressive and persistent shortness of breath that became worse chronic leg edema, screening labs were obtained at [facility] that showed multiple abnormalities including anemia to hemoglobin of 7 low sodium he was sent to the emergency room for management he denies chest pain fever cough he indicates he is having normal bowel bladder habits he simply states he feels short of breath since his surgery Physical Examination: [] 160/70 afebrile 97% room air sat General, no distress resting comfortably HEENT is generally unremarkable The neck is supple no adenopathy Cardiovascular, regular rate and rhythm he has a prominent cardiovascular tones I do not hear metallic click he is on Eliquis he does not know if he has a mechanical or soft tissue valve Lungs, clear bilateral Abdomen, soft nontender Extremities, 3+ edema that he states is chronic Neurologic, awake alert answering questions appropriately moving all 4 extremities Test Results: [] Emergency Department Course and Treatment: [] His EKG shows a sinus rhythm incomplete left bundle no acute injury pattern screening labs are obtained Hemoglobin around 9 creatinine 1.33 see all those reports, troponin unremarkable BNP 400, chest x-ray shows signs of CHF at this time given all the above I spoke with the hospitalist and they will arrange for admission and reevaluation he remains awake and alert hemodynamically stable Treatment Plan: [] Disposition: [] Admit stable Impression: [] Congestive heart failure, recent CABG and aortic valve replacement This note was generated with [employer] software. It may contain incorrect words, spelling, and punctuation that were not noted in review of the chart prior to signing ED Disposition - Plan for ED Patient: Referrals: Jeremi Morel MD [Primary Care Provider] -
[2019-01-15 20:06] LABS: Bacteria 0 SEEN /hpf (None Seen); Mucous, Urine 0 SEEN /hpf (<or=2+); Red Blood Cells-Urine 0 SEEN /hpf (0-5); Squamous Epithelial Cells - UA 0 SEEN /hpf (0-5)
[2019-01-15 20:08] LABS: Absolute Lymphocyte Count 1.31 X10^3/ul (0.83-4.51); Absolute Neutrophil Count 5.9 X10^3/uL (2.0-7.7); Basophil# 0.01 X10^3/uL; Basophil% 0.1 % (0-1); Eosinophil# 0.14 X10^3/uL; Eosinophils% 1.7 % (0-5); Hematocrit 28.4 % (40-54); Hemoglobin 8.8 g/dl (13.0-16.5); Lymphocyte # 1.31 X10^3/ul (4.0); Lymphocyte % 16.2 % (19-41); Mean Corpuscular Hgb 26.9 pg (27.0-32.0); Mean Corpuscular Volume 86.9 fL (80-94); Mean Platelet Vol. 9.6 fl (6.2-12.0); Monocyte# 0.67 X10^3/uL; Monocyte% 8.3 % (0-10); Platelet Count 285 K/mm3 (150-450); RBC Distribution Width SD 50.4 fl (35.1-43.9); Red Blood Count 3.27 M/mm3 (4.6-6.2); White Blood Count 8.1 K/mm3 (4.4-11.0)
[2019-01-15 20:09] LABS: POSITIVE COUNT NO; POSITIVE DIFFERENTIAL NO; POSITIVE MORPHOLOGY NO
[2019-01-15 20:10] LABS: Color, Urine Yellow (Yellow); Glucose, Dipstick 1000 mg/dl (Normal); Ketone-Dipstick Negative (Negative); Leukocyte Esterase-Dipstick 25 /ul (Negative); Nitrite-Dipstick Negative (Negative); Occult Blood-Urine Negative /ul (Negative); Protein-Dipstick 15 mg/dl (Negative); Specific Gravity, Urine 1.015 (1.002-1.030); Urine Bilirubin Dipstick Negative (Negative); Urine Clarity Clear (Clear); Urine Urobilinogen Normal (Normal)
[2019-01-15 20:16] LABS: White Blood Cells 0-5 SEEN /hpf (0-5)
[2019-01-15 20:17] LABS: AST(SGOT) 100 U/L (15-37); Alanine Aminotransfer ALT/SGPT 61 U/L (16-61); Albumin, Serum 3.1 g/dL (3.2-5.0); Alkaline Phosphatase 59 U/L (45-117); Anion Gap 8 (5-15); BUN 16 mg/dL (7-18); Calcium,Total 8.3 mg/dL (8.5-10.1); Chloride 104 mmol/L (98-107); Creatinine, Serum 1.33 mg/dL (0.70-1.30); EST Glomerular Filtration Rate 55 mL/min (>60); Est Glom Filt Rate - Afr Amer 66 mL/min (>60); Estimated Creatinine Clearance 43.56 ml/min; Globulin 3.3 g/dL (2.2-4.2); Glucose 202 mg/dL (74-106); Potassium 4.1 mmol/L (3.5-5.1); Protein, Total 6.4 g/dL (6.4-8.2); Sodium Level 137 mmol/L (136-145)
[2019-01-15 21:00] VITALS: BP 135/59; PULSE 57; RESP 17; O2SAT 95
[2019-01-15 21:54] LABS: BNP,B-Type NATRIURETIC PEPTIDE 367.6 pg/mL (0-100)
--- NOTE | 2019-01-15 22:33 | HP.PCM_ITS ---
History of Present Illness Date of Admission: 01/16/19 Chief Complaint: shortness of breath The patient is a 83 year old M admitted with a complaint of low hemoglobin and shortness of breath with exertion. Patient has a history of atrial fibrillation, diabetes and hypertension as well as coronary artery disease status post CABG 2 weeks ago at [facility] [place]. He was in the [facility] and states that blood work done showed that he was hemoglobin was low. He has also been complaining of some shortness of breath with exertion. He denied any lightheadedness or dizziness, chest pain, abdominal pain, lower extremity swelling, diarrhea vomiting. Therefore decided to bring him to the ED on account of the low hemoglobin in the [facility]. Vitals in the ED showed heart rate of 57 and respiratory rate of 22. BMP showed creatinine of 1.33 and BNP of 367.6 was otherwise unremarkable. Initial troponin was negative. She showed hemoglobin of 8.8. EKG done showed left bundle branch block and T wave inversions in V5 and V6 indicating of lateral ischemia. He has been admitted to be managed for exertional shortness of breath and anemia. [] Past Medical History Allergies No Known Allergies Allergy (Verified 01/15/19 19:05) Home Medications: Ambulatory Orders Medication Instructions Recorded Buspar 10 mg PO BID 10/30/18 glipiZIDE XL 102 tablet PO DAILY 10/30/18 traZODone [Desyrel] 100 mg PO QHS 10/30/18 Amiodarone HCl 200 mg PO DAILY 01/15/19 Apixaban [Eliquis] 2.5 mg PO BID 01/15/19 Atorvastatin Calcium 40 mg PO DAILY 01/15/19 Doxepin HCl 100 mg PO DAILY 01/15/19 Fenofibrate 100 mg PO DAILY 01/15/19 Metoprolol Tartrate 25 mg PO BID 01/15/19 Oxycodone [Oxyir] 5 mg PO Q4H PRN PRN 01/15/19 Acetaminophen [Tylenol] 625 mg PO [id number] 01/16/19 Surgical History: - - CABG 2 weeks ago Psychiatric History: No pertinent psych hx Lives: Custodial Smoking Status: Never smoker Tobacco Use: Non-smoker Alcohol: None Drugs: None - *Family History Maternal History Items: No pertinent history Review of Systems Constitutional: Denies: Chills, Fever, Malaise, Weakness, Weight Change, Fatigue Eyes: Denies: Blurred vision HEENT: Denies: Head Aches, Sinus Congestion, Sinus Drainage Cardiovascular: Denies: Chest Pain, Palpitations Respiratory: Reports: Shortness of Breath, Shortness of breath upon exertion. Denies: Cough, Hemoptysis, Pleuritic Pain, Shortness of breath at rest, Sputum production, Wheezing Gastrointestinal: Denies: Abdominal Pain, Nausea, Vomiting Genitourinary: Denies: Dysuria Musculoskeletal: Denies: Joint Pain, Joint Tenderness Skin: Denies: Rash, Wounds Neurological: Denies: Numbness, Tingling, Focal weakness Psychiatric: Denies: Anxiety, Depression, Homicidal Ideations, Suicidal Ideations Hematologic/ Lymphatic: Denies: Easy Bruising, Easy Bleeding VTE Information - Inpt Only VTE Present on Admission: No VTE Pharm Prophylaxis ordered?: Yes - Physical Exam General: Alert, Oriented x3, Cooperative, No apparent distress HEENT: Atraumatic, PERRLA, EOMI, Normocephalic Oral: Dry Mucosa Neck: Supple, No JVD, Negative Carotid Bruits Lungs: Clear to auscultation, Normal air movement, No rhonchi, No wheeze, No rales Cardiovascular: Regular rate, Regular Rhythm, Normal S1, Normal S2, No murmurs, - - CABG dressing is clean and dry Abdomen: Bowel Sounds Present, Soft, Non Tender, Non-Distended, No Hepato- splenomegaly Extremities: No clubbing, No cyanosis, No edema, Capillary Refill Less than 3 Seconds Skin: No rashes, No breakdown Musculoskeletal: No Tenderness to Palpation of Joints or Extremities Lymphatic: No Cervical, Supraclavicular, or Inguinal Adenopathy Neurological: Cranial nerves II-XII grossly intact, Neuro grossly intact, Motor Exam 5/5 strength throughout Psych/Mental Status: Normal Affect, Appropriate, Alert and oriented to time, place, person, mood and affect Vital Signs Temp Pulse Resp BP Pulse Ox 98 F 57 L 17 135/59 H 95 01/15/19 19:33 01/15/19 21:00 01/15/19 21:00 01/15/19 21:00 01/15/19 21:00 Oxygen Delivery Method Room Air Weight: 215 lb Body Mass Index (BMI) 31.7 Laboratory Tests Past 24 Hrs 01/15/19 01/15/19 01/15/19 19:54 19:54 19:54 WBC 8.1 RBC 3.27 L Hgb 8.8 L Hct 28.4 L MCV 86.9 MCH 26.9 L MCHC 31.0 L RDW 16.0 H RDW Differential 50.4 H Plt Count 285 MPV 9.6 Immature Gran % (Auto) 0.700 Neut % (Auto) 73.0 H Lymph % (Auto) 16.[address] % (Auto) 8.3 Eos % (Auto) 1.7 Baso % (Auto) 0.1 Absolute Neuts (auto) 5.9 Absolute Lymphs (auto) 1.31 Total Counted Not Reportable Sodium 137 Potassium 4.1 Chloride 104 Carbon Dioxide 25.0 Anion Gap 8 BUN 16 Creatinine 1.33 H Estim Creat Clear Calc 43.56 Est GFR (MDRD) Af Amer 66 Est GFR (MDRD) Non-Af 55 L BUN/Creatinine Ratio 12.0 Glucose 202 H Calcium 8.3 L Total Bilirubin 0.40 Direct Bilirubin 0.20 AST 100 H ALT 61 Alkaline Phosphatase 59 Troponin I B-Natriuretic Peptide Total Protein 6.4 Albumin 3.1 L Globulin 3.3 Urine Color Urine Clarity Urine pH Ur Specific [place] Urine Protein Urine Glucose (UA) Urine Ketones Urine Occult Blood Urine Nitrite Urine Bilirubin Urine Urobilinogen Ur Leukocyte Esterase Urine RBC Urine WBC Ur Squamous Epith Cells Urine Bacteria Urine Mucus Blood Type O NEGATIVE Antibody Screen NEGATIVE 01/15/19 01/15/19 01/15/19 19:54 19:54 20:00 WBC RBC Hgb Hct MCV MCH MCHC RDW RDW Differential Plt Count MPV Immature Gran % (Auto) Neut % (Auto) Lymph % (Auto) [place] % (Auto) Eos % (Auto) Baso % (Auto) Absolute Neuts (auto) Absolute Lymphs (auto) Total Counted Sodium Potassium Chloride Carbon Dioxide Anion Gap BUN Creatinine Estim Creat Clear Calc Est GFR (MDRD) Af Amer Est GFR (MDRD) Non-Af BUN/Creatinine Ratio Glucose Calcium Total Bilirubin Direct Bilirubin AST ALT Alkaline Phosphatase Troponin I 0.025 B-Natriuretic Peptide 367.6 H Total Protein Albumin Globulin Urine Color Yellow Urine Clarity Clear Urine pH 6.0 Ur Specific [place] 1.015 Urine Protein 15 H Urine Glucose (UA) 1000 H Urine Ketones Negative Urine Occult Blood Negative Urine Nitrite Negative Urine Bilirubin Negative Urine Urobilinogen Normal Ur Leukocyte Esterase 25 H Urine RBC 0 SEEN Urine WBC 0-5 SEEN Ur Squamous Epith Cells 0 SEEN Urine Bacteria 0 SEEN Urine Mucus 0 SEEN Blood Type Antibody Screen Diagnostic Data Chest X-Ray 01/15/19 20:00 IMPRESSION: Interstitial edema or infiltrates. Small left pleural effusion.ss Electronically Signed: Gareth Leonard MD at 21:12 EST , Service support , Assessment/Plan 83-year-old male admitted with a complaint of exertional shortness of breath 1.acute systolic heart failure EF of 45% * recently had CABG 2 weeks ago at [place] * complained of shortness of breath with exertion * BNP is 367.6 * troponin is negative * give IV lasix 40mg bid * monitor input output * consider cardiology consult o/a of recent CABG 2 weeks ago * 2D echo * 2. Anemia: * hb is 8.8. Was said to be ~7 in the [facility]. Patient currently stable. * Will hold off on transfusion until hemoglobin is less than 7. * Will check iron panel. 3. CAD status post CABG: * cardiac cath: occluded RCA with L to R collaterals, mid LAD stenosis, EF of 45% * On statin and metoprolol. 4. A. fib: Rate and rhythm controlled. On amiodarone and metoprolol. on eliquis 5. Diabetes mellitus: On glipizide. Insulin sliding scale. Acucchecks ARAS DVT prophylaxis: on eliquis Code status: full code * Patient counseled extensively about different types of CODE STATUS including full code, DNR CCA and DNR CCA. Patient elects to be full code. Total [id number] time 16 minutes. Code Visit OBSV E&M: 71164 Initial observation care L3 Procedures: 55444 Advncd Care Plan 30 Min
--- NOTE | 2019-01-15 22:55 | ED.RN ---
[facility] MELA STATES SHE WILL UPDATE FAMILY.
[2019-01-15 23:04] VITALS: BP 109/62; PULSE 57; RESP 22; O2SAT 95
[2019-01-16] VITALS (9 sets, daily range): BP systolic 144–178; BP diastolic 58–70; PULSE 55–70; RESP 18; TEMP 36.4–36.8; O2SAT 93–96; BMI 32.3
[2019-01-16 01:16] LABS: Ferritin 571 ng/mL (26-388); Iron 22 ug/dL (65-175); Iron Binding Capacity,Total 249 ug/dL (250-450); PERCENT IRON SATURATION 8.8 % (15.0-55.0)
[2019-01-16 03:30] LABS: Bedside Glucose 112 mg/dL (70-110)
[2019-01-16 06:43] LABS: Absolute Lymphocyte Count 1.39 X10^3/ul (0.83-4.51); Absolute Neutrophil Count 5.1 X10^3/uL (2.0-7.7); Basophil# 0.02 X10^3/uL; Basophil% 0.3 % (0-1); Eosinophil# 0.16 X10^3/uL; Eosinophils% 2.2 % (0-5); Hematocrit 27.3 % (40-54); Hemoglobin 8.2 g/dl (13.0-16.5); Lymphocyte # 1.39 X10^3/ul (4.0); Lymphocyte % 18.9 % (19-41); Mean Corpuscular Hgb 27.2 pg (27.0-32.0); Mean Corpuscular Volume 90.4 fL (80-94); Mean Platelet Vol. 9.5 fl (6.2-12.0); Monocyte# 0.64 X10^3/uL; Monocyte% 8.7 % (0-10); Neutrophil # 5.09 X10^3/uL (2.7-7.7); Neutrophil % 69.2 % (47-70); Platelet Count 301 K/mm3 (150-450); RBC Distribution Width CV 15.9 % (11.6-14.6); RBC Distribution Width SD 50.6 fl (35.1-43.9); Red Blood Count 3.02 M/mm3 (4.6-6.2); White Blood Count 7.4 K/mm3 (4.4-11.0)
[2019-01-16 06:44] LABS: POSITIVE COUNT NO; POSITIVE DIFFERENTIAL NO; POSITIVE MORPHOLOGY NO
[2019-01-16 07:00] LABS: Anion Gap 8 (5-15); BUN 13 mg/dL (7-18); BUN/Creat Ratio 11.4 RATIO (10-20); Calcium,Total 8.3 mg/dL (8.5-10.1); Chloride 106 mmol/L (98-107); Creatinine, Serum 1.14 mg/dL (0.70-1.30); EST Glomerular Filtration Rate 65 mL/min (>60); Est Glom Filt Rate - Afr Amer 79 mL/min (>60); Estimated Creatinine Clearance 50.82 ml/min; Glucose 106 mg/dL (74-106); Potassium 4.1 mmol/L (3.5-5.1); Sodium Level 141 mmol/L (136-145)
[2019-01-16 07:05] LABS: Bedside Glucose 114 mg/dL (70-110)
[2019-01-16] MEDS: Fenofibrate 48 MG Tablet PO (08:17)
[2019-01-16] MEDS: Amiodarone 200 MG Tablet PO (08:18)
[2019-01-16] MEDS: busPIRone 5 MG Tablet 10 MG PO (08:18)
[2019-01-16] MEDS: APIXABAN 2.5 MG TABLET PO (08:18)
[2019-01-16] MEDS: Metoprolol Tartrate 25 MG Tablet PO (08:18)
[2019-01-16] MEDS: glipiZIDE XL 5 MG Tablet 10 MG PO (08:25)
[2019-01-16] MEDS: 0.9% NaCl Peripheral Flush Adult/Peds IV ×2 (08:25→11:27)
[2019-01-16] MEDS: Furosemide 40 MG/4 ML Vial IV (08:26)
[2019-01-16] MEDS: Insulin Lispro 100 UNIT/ML INSULN.PEN SQ (11:17)
[2019-01-16 11:36] LABS: Bedside Glucose 156 mg/dL (70-110)
--- NOTE | 2019-01-16 13:14 | PCM.PROGNOTE ---
Subjective: Patient seen and examined. Denies significant shortness of breath. Denies chest pain. Reports lower extremity swelling. States following his recent CABG he is not bouncing back. He is currently residing at SNF for therapy. Previously from home independently. - Physical Exam General: Alert, Oriented x3, Cooperative HEENT: Atraumatic, PERRLA, EOMI, Normocephalic Neck: Supple, No JVD, Negative Carotid Bruits Lungs: Clear to auscultation, Normal air movement Cardiovascular: Regular rate, Regular Rhythm, Normal S1, Normal S2, Murmur Abdomen: Bowel Sounds Present, Soft, Non Tender, Non-Distended Extremities: No clubbing, No cyanosis, Capillary Refill Less than 3 Seconds, Edema - +2 bilateral lower extremities Skin: No rashes, No breakdown, - - CABG dressing clean dry and intact Musculoskeletal: No Tenderness to Palpation of Joints or Extremities Neurological: Cranial nerves II-XII grossly intact, Neuro grossly intact Psych/Mental Status: Normal Affect, Appropriate Vital Signs Temp Pulse Resp BP Pulse Ox 98.3 F 55 L 18 144/66 H 93 01/16/19 08:00 01/16/19 11:40 01/16/19 08:00 01/16/19 08:18 01/16/19 08:00 Oxygen Delivery Method Room Air Weight: 218 lb 14.704 oz Body Mass Index (BMI) 32.3 Intake and Output for Last 24 Hours 01/14/19 01/15/19 01/16/19 23:59 23:59 23:59 Intake Total 360 / 360 Output Total 1850 / 1850 Balance -1490 / -1490 Laboratory Tests Past 24 Hrs 01/15/19 01/15/19 01/15/19 19:54 19:54 19:54 WBC 8.1 RBC 3.27 L Hgb 8.8 L Hct 28.4 L MCV 86.9 MCH 26.9 L MCHC 31.0 L RDW 16.0 H RDW Differential 50.4 H Plt Count 285 MPV 9.6 Immature Gran % (Auto) 0.700 Neut % (Auto) 73.0 H Lymph % (Auto) 16.2 L [place] % (Auto) 8.3 Eos % (Auto) 1.7 Baso % (Auto) 0.1 Absolute Neuts (auto) 5.9 Absolute Lymphs (auto) 1.31 Total Counted Not Reportable Sodium 137 Potassium 4.1 Chloride 104 Carbon Dioxide 25.0 Anion Gap 8 BUN 16 Creatinine 1.33 H Estim Creat Clear Calc 43.56 Est GFR (MDRD) Af Amer 66 Est GFR (MDRD) Non-Af 55 L BUN/Creatinine Ratio 12.0 Glucose 202 H Calcium 8.3 L Iron TIBC Iron Saturation Ferritin Total Bilirubin 0.40 Direct Bilirubin 0.20 AST 100 H ALT 61 Alkaline Phosphatase 59 Troponin I B-Natriuretic Peptide Total Protein 6.4 Albumin 3.1 L Globulin 3.3 Urine Color Urine Clarity Urine pH Ur Specific [place] Urine Protein Urine Glucose (UA) Urine Ketones Urine Occult Blood Urine Nitrite Urine Bilirubin Urine Urobilinogen Ur Leukocyte Esterase Urine RBC Urine WBC Ur Squamous Epith Cells Urine Bacteria Urine Mucus Blood Type O NEGATIVE Antibody Screen NEGATIVE 01/15/19 01/15/19 01/15/19 19:54 19:54 20:00 WBC RBC Hgb Hct MCV MCH MCHC RDW RDW Differential Plt Count MPV Immature Gran % (Auto) Neut % (Auto) Lymph % (Auto) [place] % (Auto) Eos % (Auto) Baso % (Auto) Absolute Neuts (auto) Absolute Lymphs (auto) Total Counted Sodium Potassium Chloride Carbon Dioxide Anion Gap BUN Creatinine Estim Creat Clear Calc Est GFR (MDRD) Af Amer Est GFR (MDRD) Non-Af BUN/Creatinine Ratio Glucose Calcium Iron TIBC Iron Saturation Ferritin Total Bilirubin Direct Bilirubin AST ALT Alkaline Phosphatase Troponin I 0.025 B-Natriuretic Peptide 367.6 H Total Protein Albumin Globulin Urine Color Yellow Urine Clarity Clear Urine pH 6.0 Ur Specific [place] 1.015 Urine Protein 15 H Urine Glucose (UA) 1000 H Urine Ketones Negative Urine Occult Blood Negative Urine Nitrite Negative Urine Bilirubin Negative Urine Urobilinogen Normal Ur Leukocyte Esterase 25 H Urine RBC 0 SEEN Urine WBC 0-5 SEEN Ur Squamous Epith Cells 0 SEEN Urine Bacteria 0 SEEN Urine Mucus 0 SEEN Blood Type Antibody Screen 01/16/19 01/16/19 01/16/19 00:35 03:30 06:30 WBC 7.4 RBC 3.02 L Hgb 8.2 L Hct 27.3 L MCV 90.4 MCH 27.2 MCHC 30.0 L RDW 15.9 H RDW Differential 50.6 H Plt Count 301 MPV 9.5 Immature Gran % (Auto) 0.700 Neut % (Auto) 69.2 Lymph % (Auto) 18.9 L [place] % (Auto) 8.7 Eos % (Auto) 2.2 Baso % (Auto) 0.3 Absolute Neuts (auto) 5.1 Absolute Lymphs (auto) 1.39 Total Counted Not Reportable Sodium Potassium Chloride Carbon Dioxide Anion Gap BUN Creatinine Estim Creat Clear Calc Est GFR (MDRD) Af Amer Est GFR (MDRD) Non-Af BUN/Creatinine Ratio Glucose Calcium Iron 22 L TIBC 249 L Iron Saturation 8.8 L Ferritin 571 H Total Bilirubin Direct Bilirubin AST ALT Alkaline Phosphatase Troponin I 0.031 0.029 B-Natriuretic Peptide Total Protein Albumin Globulin Urine Color Urine Clarity Urine pH Ur Specific [place] Urine Protein Urine Glucose (UA) Urine Ketones Urine Occult Blood Urine Nitrite Urine Bilirubin Urine Urobilinogen Ur Leukocyte Esterase Urine RBC Urine WBC Ur Squamous Epith Cells Urine Bacteria Urine Mucus Blood Type Antibody Screen 01/16/19 06:30 WBC RBC Hgb Hct MCV MCH MCHC RDW RDW Differential Plt Count MPV Immature Gran % (Auto) Neut % (Auto) Lymph % (Auto) [place] % (Auto) Eos % (Auto) Baso % (Auto) Absolute Neuts (auto) Absolute Lymphs (auto) Total Counted Sodium 141 Potassium 4.1 Chloride 106 Carbon Dioxide 27.0 Anion Gap 8 BUN 13 Creatinine 1.14 Estim Creat Clear Calc 50.82 Est GFR (MDRD) Af Amer 79 Est GFR (MDRD) Non-Af 65 BUN/Creatinine Ratio 11.4 Glucose 106 Calcium 8.3 L Iron TIBC Iron Saturation Ferritin Total Bilirubin Direct Bilirubin AST ALT Alkaline Phosphatase Troponin I 0.030 B-Natriuretic Peptide Total Protein Albumin Globulin Urine Color Urine Clarity Urine pH Ur Specific [place] Urine Protein Urine Glucose (UA) Urine Ketones Urine Occult Blood Urine Nitrite Urine Bilirubin Urine Urobilinogen Ur Leukocyte Esterase Urine RBC Urine WBC Ur Squamous Epith Cells Urine Bacteria Urine Mucus Blood Type Antibody Screen POC Glucose 01/16/19 01/16/19 01/16/19 11:14 07:00 03:27 POC Glucose 156 H 114 H 112 H Medical Necessity - Tobacco Use Smoking Status: Never smoker Tobacco Use: Non-smoker Assessment/Plan 1. Acute on chronic systolic CHF-EF on cath 10/31/18 showed EF 45%. Does not appear to have recent echo here or at [facility]. BNP 367. Troponin negative. Strict I&O. Daily weight. IV Lasix 40 mg twice daily. Uvaldo wraps bilateral lower extremities. Repeat echo. PT/OT. 2. CAD with CABG 01/01/19 at [place]-continue Eliquis, statin, beta-elijah. Wound RN consult for CABG wound, does not appear infected. 3. Severe aortic stenosis status post aortic valve replacement 01/01/19 at [place]-continue Eliquis. 4. Acute on chronic anemia, iron deficiency anemia-received IV iron x1. Begin oral iron supplementation. Trend CBC. Plan to transfuse if hemoglobin less than 8 given cardiac history. 5. Paroxysmal atrial fibrillation-continue amiodarone, metoprolol, Eliquis. 6. Type 2 diabetes mellitus-continue glipizide regimen. Accu-Cheks AC at bedtime with sliding scale insulin. Recent hemoglobin A1c at [facility] 6.8%. 7. Anxiety/depression-continue home BuSpar, trazodone, doxepin regimen. 8. Hyperlipidemia-continue fenofibrate, statin. 9. Chronic kidney disease 10. Obesity-encouraged diet lifestyle modifications. DVT prophylaxis-Eliquis Discharge planning-return to SNF at discharge. This patient was seen by JAYSHREE Sutton under the supervision of Dr. Haque.
--- NOTE | 2019-01-16 13:30 | CASEMGMT ---
Patient is from [facility]. SW faxed his information to [facility]. CRUZ spoke with Siomara at [facility] and she said they can take patient back whenever he is ready. CRUZ told her SW will talk with Mallory at [facility] to make sure she okays his return. Plan: d/c back to [facility] under skilled level of care. Kathy MEJIA MSW
--- NOTE | 2019-01-16 13:43 | PN_ITS ---
Addendum entered and electronically signed by JAYSHREE Sutton 01/16/19 14:42: Code Visit Correction to diagnosis #1: Acute on chronic diastolic CHF. Original Note: Subjective: Patient seen and examined. Denies significant shortness of breath. Denies chest pain. Reports lower extremity swelling. States following his recent CABG he is not bouncing back. He is currently residing at SNF for therapy. Previously from home independently. - Physical Exam General: Alert, Oriented x3, Cooperative HEENT: Atraumatic, PERRLA, EOMI, Normocephalic Neck: Supple, No JVD, Negative Carotid Bruits Lungs: Clear to auscultation, Normal air movement Cardiovascular: Regular rate, Regular Rhythm, Normal S1, Normal S2, Murmur Abdomen: Bowel Sounds Present, Soft, Non Tender, Non-Distended Extremities: No clubbing, No cyanosis, Capillary Refill Less than 3 Seconds, Edema - +2 bilateral lower extremities Skin: No rashes, No breakdown, - - CABG dressing clean dry and intact Musculoskeletal: No Tenderness to Palpation of Joints or Extremities Neurological: Cranial nerves II-XII grossly intact, Neuro grossly intact Psych/Mental Status: Normal Affect, Appropriate Vital Signs Temp Pulse Resp BP Pulse Ox 98.3 F 55 L 18 144/66 H 93 01/16/19 08:00 01/16/19 11:40 01/16/19 08:00 01/16/19 08:18 01/16/19 08:00 Oxygen Delivery Method Room Air Weight: 218 lb 14.704 oz Body Mass Index (BMI) 32.3 Intake and Output for Last 24 Hours 01/14/19 01/15/19 01/16/19 23:59 23:59 23:59 Intake Total 360 / 360 Output Total 1850 / 1850 Balance -1490 / -1490 Laboratory Tests Past 24 Hrs 01/15/19 01/15/19 01/15/19 19:54 19:54 19:54 WBC 8.1 RBC 3.27 L Hgb 8.8 L Hct 28.4 L MCV 86.9 MCH 26.9 L MCHC 31.0 L RDW 16.0 H RDW Differential 50.4 H Plt Count 285 MPV 9.6 Immature Gran % (Auto) 0.700 Neut % (Auto) 73.0 H Lymph % (Auto) 16.2 L [place] % (Auto) 8.3 Eos % (Auto) 1.7 Baso % (Auto) 0.1 Absolute Neuts (auto) 5.9 Absolute Lymphs (auto) 1.31 Total Counted Not Reportable Sodium 137 Potassium 4.1 Chloride 104 Carbon Dioxide 25.0 Anion Gap 8 BUN 16 Creatinine 1.33 H Estim Creat Clear Calc 43.56 Est GFR (MDRD) Af Amer 66 Est GFR (MDRD) Non-Af 55 L BUN/Creatinine Ratio 12.0 Glucose 202 H Calcium 8.3 L Iron TIBC Iron Saturation Ferritin Total Bilirubin 0.40 Direct Bilirubin 0.20 AST 100 H ALT 61 Alkaline Phosphatase 59 Troponin I B-Natriuretic Peptide Total Protein 6.4 Albumin 3.1 L Globulin 3.3 Urine Color Urine Clarity Urine pH Ur Specific [place] Urine Protein Urine Glucose (UA) Urine Ketones Urine Occult Blood Urine Nitrite Urine Bilirubin Urine Urobilinogen Ur Leukocyte Esterase Urine RBC Urine WBC Ur Squamous Epith Cells Urine Bacteria Urine Mucus Blood Type O NEGATIVE Antibody Screen NEGATIVE 01/15/19 01/15/19 01/15/19 19:54 19:54 20:00 WBC RBC Hgb Hct MCV MCH MCHC RDW RDW Differential Plt Count MPV Immature Gran % (Auto) Neut % (Auto) Lymph % (Auto) [place] % (Auto) Eos % (Auto) Baso % (Auto) Absolute Neuts (auto) Absolute Lymphs (auto) Total Counted Sodium Potassium Chloride Carbon Dioxide Anion Gap BUN Creatinine Estim Creat Clear Calc Est GFR (MDRD) Af Amer Est GFR (MDRD) Non-Af BUN/Creatinine Ratio Glucose Calcium Iron TIBC Iron Saturation Ferritin Total Bilirubin Direct Bilirubin AST ALT Alkaline Phosphatase Troponin I 0.025 B-Natriuretic Peptide 367.6 H Total Protein Albumin Globulin Urine Color Yellow Urine Clarity Clear Urine pH 6.0 Ur Specific [place] 1.015 Urine Protein 15 H Urine Glucose (UA) 1000 H Urine Ketones Negative Urine Occult Blood Negative Urine Nitrite Negative Urine Bilirubin Negative Urine Urobilinogen Normal Ur Leukocyte Esterase 25 H Urine RBC 0 SEEN Urine WBC 0-5 SEEN Ur Squamous Epith Cells 0 SEEN Urine Bacteria 0 SEEN Urine Mucus 0 SEEN Blood Type Antibody Screen 01/16/19 01/16/19 01/16/19 00:35 03:30 06:30 WBC 7.4 RBC 3.02 L Hgb 8.2 L Hct 27.3 L MCV 90.4 MCH 27.2 MCHC 30.0 L RDW 15.9 H RDW Differential 50.6 H Plt Count 301 MPV 9.5 Immature Gran % (Auto) 0.700 Neut % (Auto) 69.2 Lymph % (Auto) 18.9 L [place] % (Auto) 8.7 Eos % (Auto) 2.2 Baso % (Auto) 0.3 Absolute Neuts (auto) 5.1 Absolute Lymphs (auto) 1.39 Total Counted Not Reportable Sodium Potassium Chloride Carbon Dioxide Anion Gap BUN Creatinine Estim Creat Clear Calc Est GFR (MDRD) Af Amer Est GFR (MDRD) Non-Af BUN/Creatinine Ratio Glucose Calcium Iron 22 L TIBC 249 L Iron Saturation 8.8 L Ferritin 571 H Total Bilirubin Direct Bilirubin AST ALT Alkaline Phosphatase Troponin I 0.031 0.029 B-Natriuretic Peptide Total Protein Albumin Globulin Urine Color Urine Clarity Urine pH Ur Specific [place] Urine Protein Urine Glucose (UA) Urine Ketones Urine Occult Blood Urine Nitrite Urine Bilirubin Urine Urobilinogen Ur Leukocyte Esterase Urine RBC Urine WBC Ur Squamous Epith Cells Urine Bacteria Urine Mucus Blood Type Antibody Screen 01/16/19 06:30 WBC RBC Hgb Hct MCV MCH MCHC RDW RDW Differential Plt Count MPV Immature Gran % (Auto) Neut % (Auto) Lymph % (Auto) [place] % (Auto) Eos % (Auto) Baso % (Auto) Absolute Neuts (auto) Absolute Lymphs (auto) Total Counted Sodium 141 Potassium 4.1 Chloride 106 Carbon Dioxide 27.0 Anion Gap 8 BUN 13 Creatinine 1.14 Estim Creat Clear Calc 50.82 Est GFR (MDRD) Af Amer 79 Est GFR (MDRD) Non-Af 65 BUN/Creatinine Ratio 11.4 Glucose 106 Calcium 8.3 L Iron TIBC Iron Saturation Ferritin Total Bilirubin Direct Bilirubin AST ALT Alkaline Phosphatase Troponin I 0.030 B-Natriuretic Peptide Total Protein Albumin Globulin Urine Color Urine Clarity Urine pH Ur Specific [place] Urine Protein Urine Glucose (UA) Urine Ketones Urine Occult Blood Urine Nitrite Urine Bilirubin Urine Urobilinogen Ur Leukocyte Esterase Urine RBC Urine WBC Ur Squamous Epith Cells Urine Bacteria Urine Mucus Blood Type Antibody Screen POC Glucose 01/16/19 01/16/19 01/16/19 11:14 07:00 03:27 POC Glucose 156 H 114 H 112 H Medical Necessity - Tobacco Use Smoking Status: Never smoker Tobacco Use: Non-smoker Assessment/Plan 1. Acute on chronic systolic CHF-EF on cath 10/31/18 showed EF 45%. Does not appear to have recent echo here or at [facility]. BNP 367. Troponin negative. Strict I&O. Daily weight. IV Lasix 40 mg twice daily. Uvaldo wraps bilateral lower extremities. Repeat echo. PT/OT. 2. 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 Wound RN consult for CABG wound, does not appear infected. 3. Severe aortic stenosis status post aortic valve replacement 01/01/19 at [facility]-continue Eliquis. 4. Acute on chronic anemia, iron deficiency anemia-received IV iron x1. Begin oral iron supplementation. Trend CBC. Plan to transfuse if hemoglobin less than 8 given cardiac history. 5. Paroxysmal atrial fibrillation-continue amiodarone, metoprolol, Eliquis. 6. Type 2 diabetes mellitus-continue glipizide regimen. Accu-Cheks AC at bedtime with sliding scale insulin. Recent hemoglobin A1c at [facility] 6.8%. 7. Anxiety/depression-continue home BuSpar, trazodone, doxepin regimen. 8. Hyperlipidemia-continue fenofibrate, statin. 9. Chronic kidney disease 10. Obesity-encouraged diet lifestyle modifications. DVT prophylaxis-Eliquis Discharge planning-return to SNF at discharge. This patient was seen by JAYSHREE Sutton under the supervision of Dr. Haque.
--- NOTE | 2019-01-16 13:56 | CHAPLAIN ---
Type of Pastoral Visit _x__ Initial Visit ___ Follow-up Visit ___ On-call Visit ___ General Patient Visit ___ Spiritual Assessment ___ Family Conference ___ Bereavement ___ Rapid Response ___ Code Blue ___ Other (describe below) Pastoral Care Referral From _x__ Patient ___ Family ___ Nurse ___ Physician ___ Repair Order Clerk ___ Knockdown Man ___ Other (describe below) Sacrament/Intervention _x__ Active listening ___ Anointing ___ Christian ___ Bereavement ___ Communion _x__ Asiya exploration ___ _x__ Life review _x__ Prayer ___ Reconciliation ___ Sacrament of Sick _x__ Supportive presence ___ Wedding ___ Other (describe below) Pastoral Comments
--- NOTE | 2019-01-16 14:32 | CASEMGMT ---
CRUZ called Mallory at [facility] and left her a message inquiring if patient were to return today would he need a new pre-cert as he is observation status. Kathy MEJIA MSW
--- NOTE | 2019-01-16 14:45 | TREXTCA.CO_ITS ---
- Diet 01/16/19 00:28 Diet: Cardiac/Low Cholesterol Food consistency:: Regular Liquid Consistency:: Regular/Thin - Routine Orders/Code Status Enema Type: Fleetz Enema Frequency: Daily PRN Suppository Type: Dulcolax 10mg Suppository Frequency: Daily PRN O2 Liters per Minute: 2 O2 Frequency: PRN Keep PO Greater than or Equal to (%): 90 Routine Lab Work: CBC, BMP, - - Daily X3 days and then Q Week. Code Status: Full Code - Wound(s) Chest Wound Type: Surgical Incision Upper abdomen Wound Type: Puncture R Albarado Wound Type: Abrasion L Knee Wound Type: Surgical Incision - Suggestions for Active Care Times a day to sit in chair: 3 - Therapies Physical Therapy: Eval and Treat Occupational Therapy: Eval and Treat - Problem/Diagnosis (1) CHF (congestive heart failure) Status: Acute Comment: EF 45% Current Visit: Yes (2) CAD (coronary artery disease) Status: Chronic Comment: S/P CABG 01/01/2019 at [place] Current Visit: No (3) Severe aortic stenosis Status: Chronic Comment: s/p AVR 01/01/19 at [place] Current Visit: No (4) Iron deficiency anemia Status: Chronic Current Visit: No (5) Paroxysmal atrial fibrillation Status: Chronic Current Visit: No (6) Type 2 diabetes mellitus Status: Chronic Current Visit: No (7) Hyperlipidemia Status: Chronic Current Visit: No (8) Chronic kidney disease, stage II (mild) Status: Chronic Current Visit: No - Allergies/Procedures Done in Hospital Allergies/Adverse Reactions: Allergies No Known Allergies Allergy (Verified 01/15/19 19:05) Procedures: None - Type of Care/Length of Stay Estimated LOS: Convalescent Care Less Than 30 days Type of Care Needed: Skilled Rehab Potential: Fair Prognosis: Fair - Additional Orders/Day of Discharge H&P will serve as current which was dated: 01/15/19 Day of Discharge: 01/16/19 - Dietary and Speech Recommendations Dietitian Recommendations/Changes: Rec change diet to liberal Cardiac low sodium w/ fluid restriction - Follow Up Care Primary Care Physician: Jeremi Morel MD [Primary Care Provider] - Please follow up with your Primary Care Physician in: 1 Week Please Follow Up With: Maxi Gallardo MD - Or Primary Director Of Physiotherapy Services When: 1 Week
--- NOTE | 2019-01-16 14:47 | PCM.DC.SUM ---
Discharge Date and Diagnosis Date of Admission: 01/16/19 Date of Discharge: 01/16/19 - Primary Discharge Diagnosis Active and Suspected Problems 1. Acute on chronic diastolic CHF 2. 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 Severe aortic stenosis status post aortic valve replacement 01/01/19 at [place] 4. Acute on chronic anemia, iron deficiency anemia 5. Paroxysmal atrial fibrillation 6. Type 2 diabetes mellitus 7. Anxiety/depression 8. Hyperlipidemia 9. Chronic kidney disease stage II 10. Obesity - Secondary Discharge Diagnosis Chronic Problems CAD (coronary artery disease) (Chronic) S/P CABG 01/01/2019 at [place] Severe aortic stenosis (Chronic) s/p AVR 01/01/19 at [place] Iron deficiency anemia (Chronic) Paroxysmal atrial fibrillation (Chronic) Type 2 diabetes mellitus (Chronic) Hyperlipidemia (Chronic) Chronic kidney disease, stage II (mild) (Chronic) Hospital Course and Treatment Imaging Results: Diagnostic Data Chest X-Ray 01/15/19 20:00 IMPRESSION: Interstitial edema or infiltrates. Small left pleural effusion.ss Electronically Signed: Gareth Leonard MD at 21:12 EST , Service support , Consultations 01/16/19 04:44 Consult: Onc/Wound/hog scraper Routine Comment: Operations: None Procedures: None Summary of Care Provided: The patient is a 83 year old M admitted 01/16/2019 due to shortness of breath. 1. Acute on chronic diastolic CHF-EF on cath 10/31/18 showed EF 45%. BNP 367. Chest x-ray admission with interstitial edema or infiltrates. IV Lasix during admission. Patient stable on room air, walking pulse ox completed and patient did not require supplemental oxygen. Initiated on Lasix 40 mg daily as well as 20 mEq potassium supplementation at discharge. Follow-up with primary care physician in 1 week. Follow-up with Dr. Gallardo or primary payroll accounting manager in 1 week. 2. 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 CABG wound does not appear infected. 3. Severe aortic stenosis status post aortic valve replacement 01/01/19 at [place]-continue Eliquis. 4. Acute on chronic anemia, iron deficiency anemia-received IV iron x1. Begin oral iron supplementation, ferrous sulfate 325 mg p.o. twice daily. Trend CBC at [facility]. 5. Paroxysmal atrial fibrillation-continue amiodarone, metoprolol, Eliquis. 6. Type 2 diabetes mellitus-continue glipizide regimen. Recent hemoglobin A1c at [facility] 6.8%. 7. Anxiety/depression-continue home BuSpar, trazodone, doxepin regimen. 8. Hyperlipidemia-continue fenofibrate, statin. 9. Chronic kidney disease stage II-at baseline. 10. Obesity-encouraged diet lifestyle modifications. General: Alert, Oriented x3, Cooperative HEENT: Atraumatic, PERRLA, EOMI, Normocephalic Neck: Supple, No JVD, Negative Carotid Bruits Lungs: Clear to auscultation, Normal air movement Cardiovascular: Regular rate, Regular Rhythm, Normal S1, Normal S2, Murmur Abdomen: Bowel Sounds Present, Soft, Non Tender, Non-Distended Extremities: No clubbing, No cyanosis, Capillary Refill Less than 3 Seconds, Edema +1 bilateral lower extremities Skin: No rashes, No breakdown, - - CABG dressing clean dry and intact Musculoskeletal: No Tenderness to Palpation of Joints or Extremities Neurological: Cranial nerves II-XII grossly intact, Neuro grossly intact Psych/Mental Status: Normal Affect, Appropriate Patient seen and examined prior to discharge. Physical assessment as noted above. Patient is stable for discharge with follow up recommendations as noted above. This patient was seen by JAYSHREE Sutton under the supervision of Dr. Haque. - Physical Exam Vital Signs Temp Pulse Resp BP Pulse Ox 98.0 F 70 18 160/58 H 96 01/16/19 14:00 01/16/19 14:00 01/16/19 14:00 01/16/19 14:00 01/16/19 14:00 Oxygen Delivery Method Room Air Weight: 218 lb 14.704 oz Body Mass Index (BMI) 32.3 Intake and Output for Last 24 Hours 01/14/19 01/15/19 01/16/19 23:59 23:59 23:59 Intake Total 360 / 360 Output Total 1850 / 1850 Balance -1490 / -1490 Laboratory Tests Past 24 Hrs 01/15/19 01/15/19 01/15/19 19:54 19:54 19:54 WBC 8.1 RBC 3.27 L Hgb 8.8 L Hct 28.4 L MCV 86.9 MCH 26.9 L MCHC 31.0 L RDW 16.0 H RDW Differential 50.4 H Plt Count 285 MPV 9.6 Immature Gran % (Auto) 0.700 Neut % (Auto) 73.0 H Lymph % (Auto) 16.2 L [place] % (Auto) 8.3 Eos % (Auto) 1.7 Baso % (Auto) 0.1 Absolute Neuts (auto) 5.9 Absolute Lymphs (auto) 1.31 Total Counted Not Reportable Sodium 137 Potassium 4.1 Chloride 104 Carbon Dioxide 25.0 Anion Gap 8 BUN 16 Creatinine 1.33 H Estim Creat Clear Calc 43.56 Est GFR (MDRD) Af Amer 66 Est GFR (MDRD) Non-Af 55 L BUN/Creatinine Ratio 12.0 Glucose 202 H Calcium 8.3 L Iron TIBC Iron Saturation Ferritin Total Bilirubin 0.40 Direct Bilirubin 0.20 AST 100 H ALT 61 Alkaline Phosphatase 59 Troponin I B-Natriuretic Peptide Total Protein 6.4 Albumin 3.1 L Globulin 3.3 Urine Color Urine Clarity Urine pH Ur Specific [place] Urine Protein Urine Glucose (UA) Urine Ketones Urine Occult Blood Urine Nitrite Urine Bilirubin Urine Urobilinogen Ur Leukocyte Esterase Urine RBC Urine WBC Ur Squamous Epith Cells Urine Bacteria Urine Mucus Blood Type O NEGATIVE Antibody Screen NEGATIVE 01/15/19 01/15/19 01/15/19 19:54 19:54 20:00 WBC RBC Hgb Hct MCV MCH MCHC RDW RDW Differential Plt Count MPV Immature Gran % (Auto) Neut % (Auto) Lymph % (Auto) [place] % (Auto) Eos % (Auto) Baso % (Auto) Absolute Neuts (auto) Absolute Lymphs (auto) Total Counted Sodium Potassium Chloride Carbon Dioxide Anion Gap BUN Creatinine Estim Creat Clear Calc Est GFR (MDRD) Af Amer Est GFR (MDRD) Non-Af BUN/Creatinine Ratio Glucose Calcium Iron TIBC Iron Saturation Ferritin Total Bilirubin Direct Bilirubin AST ALT Alkaline Phosphatase Troponin I 0.025 B-Natriuretic Peptide 367.6 H Total Protein Albumin Globulin Urine Color Yellow Urine Clarity Clear Urine pH 6.0 Ur Specific [place] 1.015 Urine Protein 15 H Urine Glucose (UA) 1000 H Urine Ketones Negative Urine Occult Blood Negative Urine Nitrite Negative Urine Bilirubin Negative Urine Urobilinogen Normal Ur Leukocyte Esterase 25 H Urine RBC 0 SEEN Urine WBC 0-5 SEEN Ur Squamous Epith Cells 0 SEEN Urine Bacteria 0 SEEN Urine Mucus 0 SEEN Blood Type Antibody Screen 01/16/19 01/16/19 01/16/19 00:35 03:30 06:30 WBC 7.4 RBC 3.02 L Hgb 8.2 L Hct 27.3 L MCV 90.4 MCH 27.2 MCHC 30.0 L RDW 15.9 H RDW Differential 50.6 H Plt Count 301 MPV 9.5 Immature Gran % (Auto) 0.700 Neut % (Auto) 69.2 Lymph % (Auto) 18.9 L [place] % (Auto) 8.7 Eos % (Auto) 2.2 Baso % (Auto) 0.3 Absolute Neuts (auto) 5.1 Absolute Lymphs (auto) 1.39 Total Counted Not Reportable Sodium Potassium Chloride Carbon Dioxide Anion Gap BUN Creatinine Estim Creat Clear Calc Est GFR (MDRD) Af Amer Est GFR (MDRD) Non-Af BUN/Creatinine Ratio Glucose Calcium Iron 22 L TIBC 249 L Iron Saturation 8.8 L Ferritin 571 H Total Bilirubin Direct Bilirubin AST ALT Alkaline Phosphatase Troponin I 0.031 0.029 B-Natriuretic Peptide Total Protein Albumin Globulin Urine Color Urine Clarity Urine pH Ur Specific [place] Urine Protein Urine Glucose (UA) Urine Ketones Urine Occult Blood Urine Nitrite Urine Bilirubin Urine Urobilinogen Ur Leukocyte Esterase Urine RBC Urine WBC Ur Squamous Epith Cells Urine Bacteria Urine Mucus Blood Type Antibody Screen 01/16/19 06:30 WBC RBC Hgb Hct MCV MCH MCHC RDW RDW Differential Plt Count MPV Immature Gran % (Auto) Neut % (Auto) Lymph % (Auto) [place] % (Auto) Eos % (Auto) Baso % (Auto) Absolute Neuts (auto) Absolute Lymphs (auto) Total Counted Sodium 141 Potassium 4.1 Chloride 106 Carbon Dioxide 27.0 Anion Gap 8 BUN 13 Creatinine 1.14 Estim Creat Clear Calc 50.82 Est GFR (MDRD) Af Amer 79 Est GFR (MDRD) Non-Af 65 BUN/Creatinine Ratio 11.4 Glucose 106 Calcium 8.3 L Iron TIBC Iron Saturation Ferritin Total Bilirubin Direct Bilirubin AST ALT Alkaline Phosphatase Troponin I 0.030 B-Natriuretic Peptide Total Protein Albumin Globulin Urine Color Urine Clarity Urine pH Ur Specific [place] Urine Protein Urine Glucose (UA) Urine Ketones Urine Occult Blood Urine Nitrite Urine Bilirubin Urine Urobilinogen Ur Leukocyte Esterase Urine RBC Urine WBC Ur Squamous Epith Cells Urine Bacteria Urine Mucus Blood Type Antibody Screen POC Glucose 01/16/19 01/16/19 01/16/19 11:14 07:00 03:27 POC Glucose 156 H 114 H 112 H Home Medications: Medications to take at Discharge Buspar 10 mg PO BID 10/30/18 glipiZIDE XL 10 tablet PO DAILY 10/30/18 traZODone [Desyrel] 100 mg PO QHS 10/30/18 Amiodarone HCl 200 mg PO DAILY 01/15/19 Apixaban [Eliquis] 2.5 mg PO BID 01/15/19 Atorvastatin Calcium 40 mg PO DAILY 01/15/19 Doxepin HCl 100 mg PO DAILY 01/15/19 Fenofibrate 100 mg PO DAILY 01/15/19 Metoprolol Tartrate 25 mg PO BID 01/15/19 Oxycodone [Oxyir] 5 mg PO Q4H PRN PRN 01/15/19 Acetaminophen [Tylenol] 625 mg PO [id number] 01/16/19 Ferrous Sulfate 325 mg PO 1200,1700 tablet 01/16/19 Furosemide 40 mg PO DAILY #30 tablet 01/16/19 Potassium Chloride [K-Dur] 20 meq PO DAILY #30 tablet 01/16/19 Following Prescrptions Were Given to Patient: Furosemide 40 mg PO DAILY #30 tablet Potassium Chloride [K-Dur] 20 meq PO DAILY #30 tablet Primary Care Physician: Jeremi Morel MD [Primary Care Provider] - Please follow up with your Primary Care Physician in: 1 Week Please Follow Up With: Maxi Gallardo MD - Or Primary Loading Shovel Oiler When: 1 Week Disposition: [facility] facility Minutes spent on discharge:: 35 Patient Condition:: Stable Medical Necessity - Tobacco Use Smoking Status: Never smoker Tobacco Use: Non-smoker Meaningful Use Info Meaningful Use Diagnoses (Choose all that apply): CHF - CHF WEI/ARB ordered at discharge?: No Reason WEI/ARB not ordered?: Worsening renal function Documented LVEF (%): 45
--- NOTE | 2019-01-16 14:51 | DS.PCM_ITS ---
Discharge Date and Diagnosis Date of Admission: 01/16/19 Date of Discharge: 01/16/19 - Primary Discharge Diagnosis Active and Suspected Problems 1. Acute on chronic diastolic CHF 2. CAD with CABG 01/01/19 at [place] 3. Severe aortic stenosis status post aortic valve replacement 01/01/19 at [place] 4. Acute on chronic anemia, iron deficiency anemia 5. Paroxysmal atrial fibrillation 6. Type 2 diabetes mellitus 7. Anxiety/depression 8. Hyperlipidemia 9. Chronic kidney disease stage II 10. Obesity - Secondary Discharge Diagnosis Chronic Problems CAD (coronary artery disease) (Chronic) S/P CABG 01/01/2019 at [place] Severe aortic stenosis (Chronic) s/p AVR 01/01/19 at [place] Iron deficiency anemia (Chronic) Paroxysmal atrial fibrillation (Chronic) Type 2 diabetes mellitus (Chronic) Hyperlipidemia (Chronic) Chronic kidney disease, stage II (mild) (Chronic) Hospital Course and Treatment Imaging Results: Diagnostic Data Chest X-Ray 01/15/19 20:00 IMPRESSION: Interstitial edema or infiltrates. Small left pleural effusion.ss Electronically Signed: Gareth Leonard MD at 21:12 EST , Service support , Consultations 01/16/19 04:44 Consult: Onc/Wound/trench trimmer fine Routine Comment: Operations: None Procedures: None Summary of Care Provided: The patient is a 83 year old M admitted 01/16/2019 due to shortness of breath. 1. Acute on chronic diastolic CHF-EF on cath 10/31/18 showed EF 45%. BNP 367. Chest x-ray admission with interstitial edema or infiltrates. IV Lasix during admission. Patient stable on room air, walking pulse ox completed and patient did not require supplemental oxygen. Initiated on Lasix 40 mg daily as well as 20 mEq potassium supplementation at discharge. Follow-up with primary care physician in 1 week. Follow-up with Dr. Gallardo or primary ground helper street railway in 1 week. 2. CAD with CABG 01/01/19 at [place]-continue Eliquis, statin, beta-elijah. CABG wound does not appear infected. 3. Severe aortic stenosis status post aortic valve replacement 01/01/19 at [place]-continue Eliquis. 4. Acute on chronic anemia, iron deficiency anemia-received IV iron x1. Begin oral iron supplementation, ferrous sulfate 325 mg p.o. twice daily. Trend CBC a t SNF. 5. Paroxysmal atrial fibrillation-continue amiodarone, metoprolol, Eliquis. 6. Type 2 diabetes mellitus-continue glipizide regimen. Recent hemoglobin A1c at [facility] 6.8%. 7. Anxiety/depression-continue home BuSpar, trazodone, doxepin regimen. 8. Hyperlipidemia-continue fenofibrate, statin. 9. Chronic kidney disease stage II-at baseline. 10. Obesity-encouraged diet lifestyle modifications. General: Alert, Oriented x3, Cooperative HEENT: Atraumatic, PERRLA, EOMI, Normocephalic Neck: Supple, No JVD, Negative Carotid Bruits Lungs: Clear to auscultation, Normal air movement Cardiovascular: Regular rate, Regular Rhythm, Normal S1, Normal S2, Murmur Abdomen: Bowel Sounds Present, Soft, Non Tender, Non-Distended Extremities: No clubbing, No cyanosis, Capillary Refill Less than 3 Seconds, Edema +1 bilateral lower extremities Skin: No rashes, No breakdown, - - CABG dressing clean dry and intact Musculoskeletal: No Tenderness to Palpation of Joints or Extremities Neurological: Cranial nerves II-XII grossly intact, Neuro grossly intact Psych/Mental Status: Normal Affect, Appropriate Patient seen and examined prior to discharge. Physical assessment as noted above. Patient is stable for discharge with follow up recommendations as noted above. This patient was seen by JAYSHREE Sutton under the supervision of Dr. Haque. - Physical Exam Vital Signs Temp Pulse Resp BP Pulse Ox 98.0 F 70 18 160/58 H 96 01/16/19 14:00 01/16/19 14:00 01/16/19 14:00 01/16/19 14:00 01/16/19 14:00 Oxygen Delivery Method Room Air Weight: 218 lb 14.704 oz Body Mass Index (BMI) 32.3 Intake and Output for Last 24 Hours 01/14/19 01/15/19 01/16/19 23:59 23:59 23:59 Intake Total 360 / 360 Output Total 1850 / 1850 Balance -1490 / -1490 Laboratory Tests Past 24 Hrs 01/15/19 01/15/19 01/15/19 19:54 19:54 19:54 WBC 8.1 RBC 3.27 L Hgb 8.8 L Hct 28.4 L MCV 86.9 MCH 26.9 L MCHC 31.0 L RDW 16.0 H RDW Differential 50.4 H Plt Count 285 MPV 9.6 Immature Gran % (Auto) 0.700 Neut % (Auto) 73.0 H Lymph % (Auto) 16.2 L Charles % (Auto) 8.3 Eos % (Auto) 1.7 Baso % (Auto) 0.1 Absolute Neuts (auto) 5.9 Absolute Lymphs (auto) 1.31 Total Counted Not Reportable Sodium 137 Potassium 4.1 Chloride 104 Carbon Dioxide 25.0 Anion Gap 8 BUN 16 Creatinine 1.33 H Estim Creat Clear Calc 43.56 Est GFR (MDRD) Af Amer 66 Est GFR (MDRD) Non-Af 55 L BUN/Creatinine Ratio 12.0 Glucose 202 H Calcium 8.3 L Iron TIBC Iron Saturation Ferritin Total Bilirubin 0.40 Direct Bilirubin 0.20 AST 100 H ALT 61 Alkaline Phosphatase 59 Troponin I B-Natriuretic Peptide Total Protein 6.4 Albumin 3.1 L Globulin 3.3 Urine Color Urine Clarity Urine pH Ur Specific [place] Urine Protein Urine Glucose (UA) Urine Ketones Urine Occult Blood Urine Nitrite Urine Bilirubin Urine Urobilinogen Ur Leukocyte Esterase Urine RBC Urine WBC Ur Squamous Epith Cells Urine Bacteria Urine Mucus Blood Type O NEGATIVE Antibody Screen NEGATIVE 01/15/19 01/15/19 01/15/19 19:54 19:54 20:00 WBC RBC Hgb Hct MCV MCH MCHC RDW RDW Differential Plt Count MPV Immature Gran % (Auto) Neut % (Auto) Lymph % (Auto) Charles % (Auto) Eos % (Auto) Baso % (Auto) Absolute Neuts (auto) Absolute Lymphs (auto) Total Counted Sodium Potassium Chloride Carbon Dioxide Anion Gap BUN Creatinine Estim Creat Clear Calc Est GFR (MDRD) Af Amer Est GFR (MDRD) Non-Af BUN/Creatinine Ratio Glucose Calcium Iron TIBC Iron Saturation Ferritin Total Bilirubin Direct Bilirubin AST ALT Alkaline Phosphatase Troponin I 0.025 B-Natriuretic Peptide 367.6 H Total Protein Albumin Globulin Urine Color Yellow Urine Clarity Clear Urine pH 6.0 Ur Specific [place] 1.015 Urine Protein 15 H Urine Glucose (UA) 1000 H Urine Ketones Negative Urine Occult Blood Negative Urine Nitrite Negative Urine Bilirubin Negative Urine Urobilinogen Normal Ur Leukocyte Esterase 25 H Urine RBC 0 SEEN Urine WBC 0-5 SEEN Ur Squamous Epith Cells 0 SEEN Urine Bacteria 0 SEEN Urine Mucus 0 SEEN Blood Type Antibody Screen 01/16/19 01/16/19 01/16/19 00:35 03:30 06:30 WBC 7.4 RBC 3.02 L Hgb 8.2 L Hct 27.3 L MCV 90.4 MCH 27.2 MCHC 30.0 L RDW 15.9 H RDW Differential 50.6 H Plt Count 301 MPV 9.5 Immature Gran % (Auto) 0.700 Neut % (Auto) 69.2 Lymph % (Auto) 18.9 L Charles % (Auto) 8.7 Eos % (Auto) 2.2 Baso % (Auto) 0.3 Absolute Neuts (auto) 5.1 Absolute Lymphs (auto) 1.39 Total Counted Not Reportable Sodium Potassium Chloride Carbon Dioxide Anion Gap BUN Creatinine Estim Creat Clear Calc Est GFR (MDRD) Af Amer Est GFR (MDRD) Non-Af BUN/Creatinine Ratio Glucose Calcium Iron 22 L TIBC 249 L Iron Saturation 8.8 L Ferritin 571 H Total Bilirubin Direct Bilirubin AST ALT Alkaline Phosphatase Troponin I 0.031 0.029 B-Natriuretic Peptide Total Protein Albumin Globulin Urine Color Urine Clarity Urine pH Ur Specific [place] Urine Protein Urine Glucose (UA) Urine Ketones Urine Occult Blood Urine Nitrite Urine Bilirubin Urine Urobilinogen Ur Leukocyte Esterase Urine RBC Urine WBC Ur Squamous Epith Cells Urine Bacteria Urine Mucus Blood Type Antibody Screen 01/16/19 06:30 WBC RBC Hgb Hct MCV MCH MCHC RDW RDW Differential Plt Count MPV Immature Gran % (Auto) Neut % (Auto) Lymph % (Auto) Charles % (Auto) Eos % (Auto) Baso % (Auto) Absolute Neuts (auto) Absolute Lymphs (auto) Total Counted Sodium 141 Potassium 4.1 Chloride 106 Carbon Dioxide 27.0 Anion Gap 8 BUN 13 Creatinine 1.14 Estim Creat Clear Calc 50.82 Est GFR (MDRD) Af Amer 79 Est GFR (MDRD) Non-Af 65 BUN/Creatinine Ratio 11.4 Glucose 106 Calcium 8.3 L Iron TIBC Iron Saturation Ferritin Total Bilirubin Direct Bilirubin AST ALT Alkaline Phosphatase Troponin I 0.030 B-Natriuretic Peptide Total Protein Albumin Globulin Urine Color Urine Clarity Urine pH Ur Specific [place] Urine Protein Urine Glucose (UA) Urine Ketones Urine Occult Blood Urine Nitrite Urine Bilirubin Urine Urobilinogen Ur Leukocyte Esterase Urine RBC Urine WBC Ur Squamous Epith Cells Urine Bacteria Urine Mucus Blood Type Antibody Screen POC Glucose 01/16/19 01/16/19 01/16/19 11:14 07:00 03:27 POC Glucose 156 H 114 H 112 H Home Medications: Medications to take at Discharge Buspar 10 mg PO BID 10/30/18 glipiZIDE XL 10 tablet PO DAILY 10/30/18 traZODone [Desyrel] 100 mg PO QHS 10/30/18 Amiodarone HCl 200 mg PO DAILY 01/15/19 Apixaban [Eliquis] 2.5 mg PO BID 01/15/19 Atorvastatin Calcium 40 mg PO DAILY 01/15/19 Doxepin HCl 100 mg PO DAILY 01/15/19 Fenofibrate 100 mg PO DAILY 01/15/19 Metoprolol Tartrate 25 mg PO BID 01/15/19 Oxycodone [Oxyir] 5 mg PO Q4H PRN PRN 01/15/19 Acetaminophen [Tylenol] 625 mg PO [id number] 01/16/19 Ferrous Sulfate 325 mg PO 1200,1700 tablet 01/16/19 Furosemide 40 mg PO DAILY #30 tablet 01/16/19 Potassium Chloride [K-Dur] 20 meq PO DAILY #30 tablet 01/16/19 Following Prescrptions Were Given to Patient: Furosemide 40 mg PO DAILY #30 tablet Potassium Chloride [K-Dur] 20 meq PO DAILY #30 tablet Primary Care Physician: Jeremi Morel MD [Primary Care Provider] - Please follow up with your Primary Care Physician in: 1 Week Please Follow Up With: Maxi Gallardo MD - Or Primary Telephone Ad Taker When: 1 Week Disposition: [facility] facility Minutes spent on discharge:: 35 Patient Condition:: Stable Medical Necessity - Tobacco Use Smoking Status: Never smoker Tobacco Use: Non-smoker Meaningful Use Info Meaningful Use Diagnoses (Choose all that apply): CHF - CHF WEI/ARB ordered at discharge?: No Reason WEI/ARB not ordered?: Worsening renal function Documented LVEF (%): 45
--- NOTE | 2019-01-16 15:13 | CASEMGMT ---
SW received call from Mallory at [facility] and as long as patient is observation status at [facility] he can return to [facility] under same level of care as before. Kathy MEJIA HAND MOLD MAKER
--- NOTE | 2019-01-16 15:27 | CASEMGMT ---
CRUZ called Siomara at [facility] and let her know patient is returning today. Faxed orders. Per cupola charger patient's daughter called in and said she will transport patient. CRUZ let RN know patient is ready to go. She will call patient's daughter and let her know. Plan: d/c back to [facility] under skilled level of care. Patient's daughter transported him via private vehicle. Kathy MEJIA MSW
== END 2019-01-16 14:46 | disposition skilled nursing facility (03) ==
LOC: ED 20:21 → PCU 23:07
PROVIDERS: Admitting Provider Student in an Organized Health Care Education/Training Program; Emergency Provider Emergency Medicine; Family Provider Internal Medicine; PCP Internal Medicine; Visit Provider Internal Medicine
DX: I13.0 Hypertensive heart and chronic kidney disease with heart failure and stage 1 through stage 4 chronic kidney disease, or unspecified chronic kidney disease (principal); I50.33 Acute on chronic diastolic (congestive) heart failure; N18.2 Chronic kidney disease, stage 2 (mild); E11.22 Type 2 diabetes mellitus with diabetic chronic kidney disease; I25.10 Atherosclerotic heart disease of native coronary artery without angina pectoris; I44.7 Left bundle-branch block, unspecified; D50.9 Iron deficiency anemia, unspecified; E78.5 Hyperlipidemia, unspecified; I48.0 Paroxysmal atrial fibrillation; F41.9 Anxiety disorder, unspecified; F32.9 Major depressive disorder, single episode, unspecified; Z95.1 Presence of aortocoronary bypass graft; Z95.2 Presence of prosthetic heart valve; Z79.899 Other long term (current) drug therapy; Z79.01 Long term (current) use of anticoagulants; Z79.84 Long term (current) use of oral hypoglycemic drugs; E66.9 Obesity, unspecified; Z68.32 Body mass index [BMI] 32.0-32.9, adult; Z71.3 Dietary counseling and surveillance
CPT/HCPCS: 36415; 71045; 80048; 80076; 81001; 82728; 82962; 83540; 83550; 83880; 84484; 85025; 86850; 86900; 93005; 96365; 96375; 97802; 99218; 99285; J1756; A4216; G0378; J1940

== ENCOUNTER 2019-03-07 11:54 | Inpatient (IN) | payer MEDICARE, SELFPAY ==
[2019-01-16 00:47] VITALS: BMI 32.3
[2019-03-07] VITALS (12 sets, daily range): BP systolic 113–168; BP diastolic 73–92; PULSE 74–95; RESP 16–24; TEMP 36.6–37.3; O2SAT 93–98; BMI 30.6; BMI 30.5
--- NOTE | 2019-03-07 12:18 | RAD_ITS ---
STUDY: X-RAY CHEST REASON FOR EXAM: Male, 83 years old. Shortness of breath and cough TECHNIQUE: Single AP portable view of the chest. COMPARISON: 01/15/2019 FINDINGS: EKG leads overlie the chest There are interstitial fibrotic changes of the lungs. There is no demonstrated pleural abnormality. 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 Normal mediastinum and jj. Normal visualized pulmonary arteries. There is atherosclerotic calcification of the aortic arch with tortuosity. There are diffuse degenerative changes of the visualized thoracic spine. There is degenerative osteoarthritis of the bilateral shoulders. There is no demonstrated abnormality of the visualized soft tissue structures of the upper abdomen. RAD/Chest 1 View (Portable) IMPRESSION: Degenerative changes, as described above. No demonstrated acute cardiopulmonary process. Electronically Signed: Pancho Bañuelos MD at 12:44 EDT , Service support ,
--- NOTE | 2019-03-07 12:18 | EKG12_ITS ---
Test Reason : SOB Blood Pressure : / mmHG Vent. Rate : 086 BPM Atrial Rate : 086 BPM P-R Int : 206 ms QRS Dur : 148 ms QT Int : 438 ms P-R-T Axes : 092 074 264 degrees QTc Int : 524 ms Normal sinus rhythm Left bundle branch block Abnormal ECG Confirmed by MARVA BLANK, ATIF ([id number]), technical writer and editor MARICRUZ ANGUIANO ([id number]) on 03/11/2019 10:58:27 AM Referred By: Santa Dominguez Confirmed By:ATIF DURHAM MD
--- NOTE | 2019-03-07 12:25 | ED.DCSUM_ITS ---
- ER Visit Summary Date of Service: 03/07/19 Chief Complaint: Short of breath, dizzy History of Present Illness: The patient is a 83 M with shortness of breath on exertion of the past 7 to 10 days. He denies shortness of breath at rest. He states his leg swelling is at baseline and he is able to lie flat to sleep. He reports dizziness intermittently. He states today he felt the room was spinning while he was sitting and trying to read. Symptoms are now improved. Patient did have to a bypass surgery and aortic valve replaced in December. He is currently on Eliquis for paroxysmal A. fib and valve. Physical Examination: Vital signs are unremarkable. Patient sitting upright in bed no acute distress. He speaking full sentences. Head neck examination is unremarkable. Heart is regular rate and rhythm with mild murmur noted secondary to his aortic valve replacement. Lung sounds are grossly clear. He has rare crackles at the right base. Abdomen is soft and nontender. Lower extremity examination reveals 3+ edema that is symmetric. Test Results: EKG is sinus 86 with a left bundle branch block. Lateral T inversions and ST depression are more pronounced when compared to prior study of January 16. Portable chest x-ray is read as degenerative changes with no acute process. On my review it does appear he has a small right pleural effusion. CBC was normal white count hemoglobin 10.2. Chemistry studies reveal glucose of 210. Troponin is 0.029. BNP is 438. Emergency Department Course and Treatment: While lying at rest patient has no symptoms. Vital signs have been stable. Patient does have EKG changes noted and compared to January. This may have been continued healing after his open heart surgery in December, but I do feel he should be observed for repeat EKGs and troponin values. Patient had previously seen Dr. Bee and is scheduled to see Dr. Diggs next month to establish care with [facility]. Treatment Plan: [] Disposition: Admit Impression: 1. Dyspnea with EKG changes This note was generated with TAPQU[employer] dictation software. It may contain incorrect words, spelling, and punctuation that were not noted in review of the chart prior to signing ED Disposition - Plan for ED Patient: Referrals: Jeremi Morel MD [Primary Care Provider] -
[2019-03-07 12:55] LABS: Absolute Lymphocyte Count 0.64 X10^3/ul (0.83-4.51); Absolute Neutrophil Count 4.6 X10^3/uL (2.0-7.7); Basophil# 0.03 X10^3/uL; Basophil% 0.5 % (0-1); Eosinophil# 0.09 X10^3/uL; Eosinophils% 1.5 % (0-5); Hematocrit 33.1 % (40-54); Hemoglobin 10.2 g/dl (13.0-16.5); Lymphocyte # 0.64 X10^3/ul (4.0); Lymphocyte % 10.8 % (19-41); Mean Corp Hgb Conc 30.8 g/gl (32-36); Mean Corpuscular Hgb 23.3 pg (27.0-32.0); Mean Corpuscular Volume 75.7 fL (80-94); Mean Platelet Vol. 9.4 fl (6.2-12.0); Monocyte# 0.58 X10^3/uL; Monocyte% 9.8 % (0-10); Neutrophil # 4.57 X10^3/uL (2.7-7.7); Neutrophil % 77.2 % (47-70); Platelet Count 203 K/mm3 (150-450); RBC Distribution Width CV 17.4 % (11.6-14.6); RBC Distribution Width SD 47.6 fl (35.1-43.9); Red Blood Count 4.37 M/mm3 (4.6-6.2); White Blood Count 5.9 K/mm3 (4.4-11.0)
[2019-03-07 13:00] LABS: POSITIVE COUNT NO; POSITIVE DIFFERENTIAL NO; POSITIVE MORPHOLOGY NO
[2019-03-07 13:01] LABS: Anion Gap 8 (5-15); BUN 17 mg/dL (7-18); BUN/Creat Ratio 14.5 RATIO (10-20); Calcium,Total 8.4 mg/dL (8.5-10.1); Chloride 96 mmol/L (98-107); Creatinine, Serum 1.17 mg/dL (0.70-1.30); EST Glomerular Filtration Rate 64 mL/min (>60); Est Glom Filt Rate - Afr Amer 77 mL/min (>60); Estimated Creatinine Clearance 49.52 ml/min; Glucose 210 mg/dL (74-106); Potassium 3.5 mmol/L (3.5-5.1); Sodium Level 134 mmol/L (136-145)
[2019-03-07 13:27] LABS: BNP,B-Type NATRIURETIC PEPTIDE 438.2 pg/mL (0-100)
--- NOTE | 2019-03-07 14:04 | PCM.HP.STD ---
Problem List (1) Dyspnea on exertion Status: Acute (2) Systolic CHF Status: Chronic Qualifiers: Heart failure chronicity: chronic Qualified Code(s): I50.22 - Chronic systolic (congestive) heart failure (3) CKD (chronic kidney disease) stage 3, GFR 30-59 ml/min Status: Chronic (4) Diabetes mellitus, type II Status: Chronic Qualifiers: Diabetes mellitus education trainer insulin use: without alf use Diabetes mellitus complication status: with unspecified complications Qualified Code(s): E11.8 - Type 2 diabetes mellitus with unspecified complications (5) Fe deficiency anemia Status: Chronic Qualifiers: Iron deficiency anemia type: unspecified iron deficiency Qualified Code(s): D50.9 - Iron deficiency anemia, unspecified (6) Left bundle branch block Status: Chronic (7) H/O aortic valve replacement Status: Resolved (8) H/O coronary artery bypass surgery Status: Resolved Comment: CABG x 2 [place] (9) Non-rheumatic aortic stenosis Status: Chronic (10) Atherosclerosis of coronary artery of [place] heart without angina pectoris Status: Chronic Qualifiers: Coronary Disease-Associated Artery/Lesion type: unspecified vessel or lesion type Qualified Code(s): I25.10 - Atherosclerotic heart disease of [place] coronary artery without angina pectoris (11) Paroxysmal atrial fibrillation Status: Chronic (12) Hyperlipidemia Status: Chronic Qualifiers: Hyperlipidemia type: pure hypercholesterolemia Qualified Code(s): E78.00 - Pure hypercholesterolemia, unspecified; E78.0 - Pure hypercholesterolemia History of Present Illness Date of Admission: 03/07/19 Chief Complaint: Exertional Dyspnea The patient is a 83 y/o M w/ PMHx: Systolic CHF, HLD, Fe Deficiency Anemia, Diabetes mellitus type II, CKD stage III, PAF, Anxiety, Valvular Heart Disease s/p AVR 01/01/19, CAD s/p CABG x 2 and AVR at [facility] 01/01/19 who presents to the [facility] ED on 03/07/19 with history of onset exertional dyspnea, intermittent lightheaded, dizziness over the last 7-10 days with no associated chest pain, tightness or pressure. He does have chronic bilateral lower extremity edema but notes that this is been stable and unchanged with no associated orthopnea. He denies any recent illness including no cough, congestion, URI sxs, urinary symptoms, abdominal pain, nausea, emesis or diarrhea. He is currently living with his Daughter since his CABG. patient had been following with Dr. Bee with recent plan to transition to Dr. Diggs with appointment upcoming in 1 month. Work-up in the ED included T 98, heart rate 88, BP 113/79, respiratory rate 18, 97% on room air, CBC with WBC 5.9, hemoglobin 10.2, platelet 203 without market left shift, BMP with sodium 134, chloride 96, glucose 210, calcium 8.4, troponin 0 0.029, BNP 438.2, chest x-ray with no acute cardiopulmonary findings, EKG L BBB, lateral T wave inversions and ST depression more pronounced since January 16 2019. Past Medical History Past Medical History (Chronic Problems): Chronic Problems (Last Updated 03/07/19 @ 11:22 by Jamilah Chisholm) Systolic CHF (Chronic) CKD (chronic kidney disease) stage 3, GFR 30-59 ml/min (Chronic) Diabetes mellitus, type II (Chronic) Fe deficiency anemia (Chronic) Left bundle branch block (Chronic) Non-rheumatic aortic stenosis (Chronic) Atherosclerosis of coronary artery of [place] heart without angina pectoris (Chronic) Paroxysmal atrial fibrillation (Chronic) Hyperlipidemia (Chronic) Medical History: Medical History (Last Updated 03/07/19 @ 11:22 by Jamilah Chisholm) Acute systolic (congestive) heart failure (Acute) I50.21 Left bundle branch block (Chronic) I44.7 Non-rheumatic aortic stenosis (Chronic) I35.0 Atherosclerosis of coronary artery of [place] heart without angina pectoris (Chronic) I25.10 Paroxysmal atrial fibrillation (Chronic) I48.0 Hyperlipidemia (Chronic) E78.5 Chronic kidney disease N18.9 Iron deficiency anemia D50.9 Type 2 diabetes mellitus E11.9 Allergies No Known Allergies Allergy (Verified 03/07/19 11:58) Home Medications: Ambulatory Orders Medication Instructions Recorded traZODone [Desyrel] 100 mg PO QHS 10/30/18 Amiodarone HCl 200 mg PO DAILY 01/15/19 Apixaban [Eliquis] 2.5 mg PO BID 01/15/19 Atorvastatin Calcium 40 mg PO DAILY 01/15/19 Doxepin HCl 100 mg PO QHS 01/15/19 Metoprolol Tartrate 25 mg PO BID 01/15/19 Ferrous Sulfate 325 mg PO 1200,1700 tablet 01/16/19 Buspirone HCl 10 mg PO BID 03/07/19 Furosemide 40 mg PO DAILY 03/07/19 Glipizide [Glipizide ER] 10 mg PO DAILY 03/07/19 Potassium Chloride [K-Dur] 20 meq PO DAILY 03/07/19 Vit A/Vit C/Vit E/Zinc/Copper 1 cap PO DAILY 03/07/19 [Preservision Areds Softgel] Surgical History: Surgical History (Last Updated 03/07/19 @ 11:18 by Jamilah Chisholm) H/O aortic valve replacement (Resolved) Onset Date: 01/01/19 Z95.2 H/O coronary artery bypass surgery (Resolved) Onset Date: 01/01/19 Z95.1 CABG x 2 [facility] Surgical History: - - CABG x 2, AVR (01/01/19), right total hip replacement, bilateral cataract surgery. Psychiatric History: Anxiety Lives: With Family - Patient currently living with his daughter with plans to return to his own home once appropriate. Smoking Status: Never smoker Tobacco Use: Non-smoker Alcohol: None Drugs: None - *Family History Maternal History Items: - - Patient with a maternal family history of hypertension as well as chronic COPD with underlying history of tobacco use. Paternal History Items: - - Patient with a paternal family history of hypertension as well as history of aneurysm. Review of Systems Constitutional: Reports: Weakness, Fatigue. Denies: Anorexia, Chills, Fever, Malaise, Weight Change HEENT: Reports: Post Nasal Drip, Sinus Drainage. Denies: Head Aches, Sinus Congestion Cardiovascular: Reports: Edema, Light Headedness. Denies: Chest Pain, Chest Tightness, Heaviness, Orthopnea, Palpitations, Syncope Respiratory: Reports: Shortness of breath upon exertion. Denies: Cough, Shortness of Breath, Shortness of breath at rest, Sputum production Gastrointestinal: Denies: Abdominal Pain, Nausea, Vomiting Genitourinary: Denies: Dysuria Musculoskeletal: Reports: Joint Pain. Denies: Joint Tenderness Skin: Denies: Rash, Wounds Neurological: Denies: Numbness, Tingling, Focal weakness Psychiatric: Reports: Anxiety. Denies: Depression, Homicidal Ideations, Suicidal Ideations Hematologic/ Lymphatic: Reports: Anemia. Denies: Easy Bruising, Easy Bleeding VTE Information - Inpt Only VTE Present on Admission: No VTE Mechan Device Prophylaxis: SCD's VTE Pharm Prophylaxis ordered?: No Reason prophylaxis not ordered:: Treatment Not Indicated - Continue home eliquis regimen. Patient Problems: Active and Suspected Problems (Last Updated 03/07/19 @ 11:22 by Jamilah Chisholm) Near syncope (Acute) Dyspnea on exertion (Acute) Acute systolic (congestive) heart failure (Acute) Subjective: Patient seated upright in ED bed, no acute distress, denies any current dyspnea or lightheadedness. Objective: Physical Examination: General: awake, alert, oriented x 3 and cooperative, seated upright in the ED bed in no apparent distress. Skin: normal color, turgor, no icterus, cyanosis, well healing midline CABG as well as chest tube incisions. HEENT: AT/NC, EOMI, PERRLA, MMM, no carotid bruits or JVD noted. Lungs: CTA bilaterally, moderate effort, moderate decrease BL bases, no rales, ronchi or wheezing. Heart: Regular rate and rhythm; no gallop, rub audible, SM. Abdomen: soft,obese, NTTP, ND, hyperactive BS, no HSM. Extremities: no cyanosis, clubbing, notable BL LE pedal to knee 2+ pitting edema. Neurological: patient awake, alert, oriented x 3; cognitive function intact; pupils equally reactive to light and accomodation; cranial nerves II-XII grossly normal, moving all 4 extremities, no focal deficits, strength moderately to severely global decrease given recent interventions on acute presentation. Psychiatric: affect appears normal, no acute evidence of depressive or anxiety feelings. - Physical Exam Vital Signs Temp Pulse Resp BP Pulse Ox 98 F 84 19 H 119/77 95 03/07/19 11:55 03/07/19 13:00 03/07/19 13:00 03/07/19 13:00 03/07/19 13:00 Oxygen Delivery Method Room Air Weight: 207 lb 6.4 oz Body Mass Index (BMI) 30.6 Laboratory Tests Past 24 Hrs 03/07/19 03/07/19 03/07/19 12:30 12:30 12:30 WBC 5.9 RBC 4.37 L Hgb 10.2 L Hct 33.1 L MCV 75.7 L MCH 23.3 L MCHC 30.8 L RDW 17.4 H RDW Differential 47.6 H Plt Count 203 MPV 9.4 Immature Gran % (Auto) 0.200 Neut % (Auto) 77.2 H Lymph % (Auto) 10.8 L [place] % (Auto) 9.8 Eos % (Auto) 1.5 Baso % (Auto) 0.5 Absolute Neuts (auto) 4.6 Absolute Lymphs (auto) 0.64 L Total Counted Not Reportable Sodium 134 L Potassium 3.5 Chloride 96 L Carbon Dioxide 30.0 Anion Gap 8 BUN 17 Creatinine 1.17 Estim Creat Clear Calc 49.52 Est GFR (MDRD) Af Amer 77 Est GFR (MDRD) Non-Af 64 BUN/Creatinine Ratio 14.5 Glucose 210 H Calcium 8.4 L Troponin I 0.029 B-Natriuretic Peptide 438.2 H Assessment/Plan All Active Problems (Last Updated 03/07/19 @ 11:18 by Jamilah Chisholm) Near syncope (Acute) Dyspnea on exertion (Acute) Acute systolic (congestive) heart failure (Acute) H/O aortic valve replacement (Resolved 01/01/19) H/O coronary artery bypass surgery (Resolved 01/01/19) The patient is a 83 y/o M w/ PMHx: Systolic CHF, HLD, Fe Deficiency Anemia, Diabetes mellitus type II, CKD stage III, PAF, Anxiety, Valvular Heart Disease s/p AVR 01/01/19, CAD s/p CABG x 2 and AVR at [facility] 01/01/19 who presents to the [facility] ED on 03/07/19 with history of onset exertional dyspnea, intermittent lightheaded, dizziness over the last 7-10 days with no associated chest pain, tightness or pressure. (1) Exertional dyspnea, unclear specific etiology: Work-up in the ED included T 98, heart rate 88, BP 113/79, respiratory rate 18, 97% on room air, CBC with WBC 5.9, hemoglobin 10.2, platelet 203 without market left shift, BMP with sodium 134, chloride 96, glucose 210, calcium 8.4, troponin 0 0.029, BNP 438.2, chest x-ray with no acute cardiopulmonary findings, EKG L BBB, lateral T wave inversions and ST depression more pronounced since January 16 2019. Will admit to PCU, place on a monitored bed to assure no acute myocardial infarction with serial cardiac enzymes and EKGs. ECHO requested. Patient is unable to perform exercise thus will proceed with AM nuclear stress testing. Cardiology consulted given recent intervention and planned establishment, will defer to alterations per Cardiology from current plan. Eliquis continued, NG, morphine. FLP in AM. Mag pending. (2) CAD: s/p CABG x 2 01/01/19, planned upcoming transition to Dr. Caterina nation, maintain on eliquis, metoprolol, statin. (3) Valvular Heart Disease: s/p AVR 01/01/19, ECHO pending. (4) Chronic Systolic CHF: CXR without overt congestion, no rales on examination, does have ongoing BL LE notable pitting edema foot to knee, will administer IV lasix 40 x 1, continue on oral lasix, place snug WEI wraps, elevation, maintain on home eliquis, metoprolol, statin regimen. (5) Hypertension: Continue home regimen including metoprolol, Lasix, PRN hydralazine. (6) Hyperlipidemia: Continue home statin regimen. AM FLP. (7) Fe Deficiency Anemia: Admission Hgb 10.2, maintain on Fe supplementation. (8) PAF: Maintain on home amiodarone, metoprolol, Eliquis. (9) Anxiety: Maintain on home buspirone, trazodone regimen. (10) CKD stage III: Admission BUN/Cr 17/.17, stable, trend. (11) DVT Prophylaxis: Trev Burns. Code Visit OBSV E&M: 42271 Initial observation care L3
--- NOTE | 2019-03-07 14:08 | HP.PCM_ITS ---
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 use Diabetes mellitus complication status: with unspecified complications Qualified Code(s): E11.8 - Type 2 diabetes mellitus with unspecified complications (5) Fe deficiency anemia Status: Chronic Qualifiers: Iron deficiency anemia type: unspecified iron deficiency Qualified Code(s): D50.9 - Iron deficiency anemia, unspecified (6) Left bundle branch block Status: Chronic (7) H/O aortic valve replacement Status: Resolved (8) H/O coronary artery bypass surgery Status: Resolved Comment: CABG x 2 [place] (9) Non-rheumatic aortic stenosis Status: Chronic (10) Atherosclerosis of coronary artery of [place] heart without angina pectoris Status: Chronic Qualifiers: Coronary Disease-Associated Artery/Lesion type: unspecified vessel or lesion type Qualified Code(s): I25.10 - Atherosclerotic heart disease of [place] coronary artery without angina pectoris (11) Paroxysmal atrial fibrillation Status: Chronic (12) Hyperlipidemia Status: Chronic Qualifiers: Hyperlipidemia type: pure hypercholesterolemia Qualified Code(s): E78.00 - Pure hypercholesterolemia, unspecified; E78.0 - Pure hypercholesterolemia History of Present Illness Date of Admission: 03/07/19 Chief Complaint: Exertional Dyspnea The patient is a 83 y/o M w/ PMHx: Systolic CHF, HLD, Fe Deficiency Anemia, Diabetes mellitus type II, CKD stage III, PAF, Anxiety, Valvular Heart Disease s/p AVR 01/01/19, CAD s/p CABG x 2 and AVR at [place] 01/01/19 who presents to the [facility] ED on 03/07/19 with history of onset exertional dyspnea, intermittent lightheaded, dizziness over the last 7-10 days with no associated chest pain, tightness or pressure. He does have chronic bilateral lower extremity edema but notes that this is been stable and unchanged with no associated orthopnea. He denies any recent illness including no cough, congestion, URI sxs, urinary symptoms, abdominal pain, nausea, emesis or diarrhea. He is currently living with his Daughter since his CABG. patient had been following with Dr. Bee with recent plan to transition to Dr. Diggs with appointment upcoming in 1 month. Work-up in the ED included T 98, heart rate 88, BP 113/79, respiratory rate 18, 97% on room air, CBC with WBC 5.9, hemoglobin 10.2, platelet 203 without market left shift, BMP with sodium 134, chloride 96, glucose 210, calcium 8.4, troponin 0 0.029, BNP 438.2, chest x-ray with no acute cardiopulmonary findings, EKG L BBB, lateral T wave inversions and ST depression more pronounced since January 16 2019. Past Medical History Past Medical History (Chronic Problems): Chronic Problems (Last Updated 03/07/19 @ 11:22 by Jamilah Chisholm) Systolic CHF (Chronic) CKD (chronic kidney disease) stage 3, GFR 30-59 ml/min (Chronic) Diabetes mellitus, type II (Chronic) Fe deficiency anemia (Chronic) Left bundle branch block (Chronic) Non-rheumatic aortic stenosis (Chronic) Atherosclerosis of coronary artery of [place] heart without angina pectoris (Chronic) Paroxysmal atrial fibrillation (Chronic) Hyperlipidemia (Chronic) Medical History: Medical History (Last Updated 03/07/19 @ 11:22 by Jamilah Chisholm) Acute systolic (congestive) heart failure (Acute) I50.21 Left bundle branch block (Chronic) I44.7 Non-rheumatic aortic stenosis (Chronic) I35.0 Atherosclerosis of coronary artery of [place] heart without angina pectoris (Chronic) I25.10 Paroxysmal atrial fibrillation (Chronic) I48.0 Hyperlipidemia (Chronic) E78.5 Chronic kidney disease N18.9 Iron deficiency anemia D50.9 Type 2 diabetes mellitus E11.9 Allergies No Known Allergies Allergy (Verified 03/07/19 11:58) Home Medications: Ambulatory Orders Medication Instructions Recorded traZODone [Desyrel] 100 mg PO QHS 10/30/18 Amiodarone HCl 200 mg PO DAILY 01/15/19 Apixaban [Eliquis] 2.5 mg PO BID 01/15/19 Atorvastatin Calcium 40 mg PO DAILY 01/15/19 Doxepin HCl 100 mg PO QHS 01/15/19 Metoprolol Tartrate 25 mg PO BID 01/15/19 Ferrous Sulfate 325 mg PO 1200,1700 tablet 01/16/19 Buspirone HCl 10 mg PO BID 03/07/19 Furosemide 40 mg PO DAILY 03/07/19 Glipizide [Glipizide ER] 10 mg PO DAILY 03/07/19 Potassium Chloride [K-Dur] 20 meq PO DAILY 03/07/19 Vit A/Vit C/Vit E/Zinc/Copper 1 cap PO DAILY 03/07/19 [Preservision Areds Softgel] Surgical History: Surgical History (Last Updated 03/07/19 @ 11:18 by Jamilah Chisholm) H/O aortic valve replacement (Resolved) Onset Date: 01/01/19 Z95.2 H/O coronary artery bypass surgery (Resolved) Onset Date: 01/01/19 Z95.1 CABG x 2 [place] Surgical History: - - CABG x 2, AVR (01/01/19), right total hip replacement, bilateral cataract surgery. Psychiatric History: Anxiety Lives: With Family - Patient currently living with his daughter with plans to return to his own home once appropriate. Smoking Status: Never smoker Tobacco Use: Non-smoker Alcohol: None Drugs: None - *Family History Maternal History Items: - - Patient with a maternal family history of hypertension as well as chronic COPD with underlying history of tobacco use. Paternal History Items: - - Patient with a paternal family history of hypertension as well as history of aneurysm. Review of Systems Constitutional: Reports: Weakness, Fatigue. Denies: Anorexia, Chills, Fever, Malaise, Weight Change HEENT: Reports: Post Nasal Drip, Sinus Drainage. Denies: Head Aches, Sinus Congestion Cardiovascular: Reports: Edema, Light Headedness. Denies: Chest Pain, Chest Tightness, Heaviness, Orthopnea, Palpitations, Syncope Respiratory: Reports: Shortness of breath upon exertion. Denies: Cough, Shortness of Breath, Shortness of breath at rest, Sputum production Gastrointestinal: Denies: Abdominal Pain, Nausea, Vomiting Genitourinary: Denies: Dysuria Musculoskeletal: Reports: Joint Pain. Denies: Joint Tenderness Skin: Denies: Rash, Wounds Neurological: Denies: Numbness, Tingling, Focal weakness Psychiatric: Reports: Anxiety. Denies: Depression, Homicidal Ideations, Suicidal Ideations Hematologic/ Lymphatic: Reports: Anemia. Denies: Easy Bruising, Easy Bleeding VTE Information - Inpt Only VTE Present on Admission: No VTE Mechan Device Prophylaxis: SCD's VTE Pharm Prophylaxis ordered?: No Reason prophylaxis not ordered:: Treatment Not Indicated - Continue home eliquis regimen. Patient Problems: Active and Suspected Problems (Last Updated 03/07/19 @ 11:22 by Jamilah Chisholm) Near syncope (Acute) Dyspnea on exertion (Acute) Acute systolic (congestive) heart failure (Acute) Subjective: Patient seated upright in ED bed, no acute distress, denies any current dyspnea or lightheadedness. Objective: Physical Examination: General: awake, alert, oriented x 3 and cooperative, seated upright in the ED bed in no apparent distress. Skin: normal color, turgor, no icterus, cyanosis, well healing midline CABG as well as chest tube incisions. HEENT: AT/NC, EOMI, PERRLA, MMM, no carotid bruits or JVD noted. Lungs: CTA bilaterally, moderate effort, moderate decrease BL bases, no rales, ronchi or wheezing. Heart: Regular rate and rhythm; no gallop, rub audible, SM. Abdomen: soft,obese, NTTP, ND, hyperactive BS, no HSM. Extremities: no cyanosis, clubbing, notable BL LE pedal to knee 2+ pitting edema. Neurological: patient awake, alert, oriented x 3; cognitive function intact; pupils equally reactive to light and accomodation; cranial nerves II-XII grossly normal, moving all 4 extremities, no focal deficits, strength moderately to severely global decrease given recent interventions on acute presentation. Psychiatric: affect appears normal, no acute evidence of depressive or anxiety feelings. - Physical Exam Vital Signs Temp Pulse Resp BP Pulse Ox 98 F 84 19 H 119/77 95 03/07/19 11:55 03/07/19 13:00 03/07/19 13:00 03/07/19 13:00 03/07/19 13:00 Oxygen Delivery Method Room Air Weight: 207 lb 6.4 oz Body Mass Index (BMI) 30.6 Laboratory Tests Past 24 Hrs 03/07/19 03/07/19 03/07/19 12:30 12:30 12:30 WBC 5.9 RBC 4.37 L Hgb 10.2 L Hct 33.1 L MCV 75.7 L MCH 23.3 L MCHC 30.8 L RDW 17.4 H RDW Differential 47.6 H Plt Count 203 MPV 9.4 Immature Gran % (Auto) 0.200 Neut % (Auto) 77.2 H Lymph % (Auto) 10.8 L [place] % (Auto) 9.8 Eos % (Auto) 1.5 Baso % (Auto) 0.5 Absolute Neuts (auto) 4.6 Absolute Lymphs (auto) 0.64 L Total Counted Not Reportable Sodium 134 L Potassium 3.5 Chloride 96 L Carbon Dioxide 30.0 Anion Gap 8 BUN 17 Creatinine 1.17 Estim Creat Clear Calc 49.52 Est GFR (MDRD) Af Amer 77 Est GFR (MDRD) Non-Af 64 BUN/Creatinine Ratio 14.5 Glucose 210 H Calcium 8.4 L Troponin I 0.029 B-Natriuretic Peptide 438.2 H Assessment/Plan All Active Problems (Last Updated 03/07/19 @ 11:18 by Jamilah Chisholm) Near syncope (Acute) Dyspnea on exertion (Acute) Acute systolic (congestive) heart failure (Acute) H/O aortic valve replacement (Resolved 01/01/19) H/O coronary artery bypass surgery (Resolved 01/01/19) The patient is a 83 y/o M w/ PMHx: Systolic CHF, HLD, Fe Deficiency Anemia, Diabetes mellitus type II, CKD stage III, PAF, Anxiety, Valvular Heart Disease s/p AVR 01/01/19, CAD s/p CABG x 2 and AVR at [place] 01/01/19 who presents to the [facility] ED on 03/07/19 with history of onset exertional dyspnea, intermittent lightheaded, dizziness over the last 7-10 days with no associated chest pain, tightness or pressure. (1) Exertional dyspnea, unclear specific etiology: Work-up in the ED included T 98, heart rate 88, BP 113/79, respiratory rate 18, 97% on room air, CBC with WBC 5.9, hemoglobin 10.2, platelet 203 without market left shift, BMP with sodium 134, chloride 96, glucose 210, calcium 8.4, troponin 0 0.029, BNP 438.2, chest x-ray with no acute cardiopulmonary findings, EKG L BBB, lateral T wave inversions and ST depression more pronounced since January 16 2019. Will admit to PCU, place on a monitored bed to assure no acute myocardial infarction with serial cardiac enzymes and EKGs. ECHO requested. Patient is unable to perform exercise thus will proceed with AM nuclear stress testing. Cardiology consulted given recent intervention and planned establishment, will defer to alterations per Cardiology from current plan. Eliquis continued, NG, morphine. FLP in AM. Mag pending. (2) CAD: s/p CABG x 2 01/01/19, planned upcoming transition to Dr. Caterina nation, maintain on eliquis, metoprolol, statin. (3) Valvular Heart Disease: s/p AVR 01/01/19, ECHO pending. (4) Chronic Systolic CHF: CXR without overt congestion, no rales on examination, does have ongoing BL LE notable pitting edema foot to knee, will administer IV lasix 40 x 1, continue on oral lasix, place snug WEI wraps, elevation, maintain on home eliquis, metoprolol, statin regimen. (5) Hypertension: Continue home regimen including metoprolol, Lasix, PRN hydralazine. (6) Hyperlipidemia: Continue home statin regimen. AM FLP. (7) Fe Deficiency Anemia: Admission Hgb 10.2, maintain on Fe supplementation. (8) PAF: Maintain on home amiodarone, metoprolol, Eliquis. (9) Anxiety: Maintain on home buspirone, trazodone regimen. (10) CKD stage III: Admission BUN/Cr 17/.17, stable, trend. (11) DVT Prophylaxis: Trev Burns. Code Visit OBSV E&M: 36440 Initial observation care L3
--- NOTE | 2019-03-07 14:16 | NURSING ---
PCU OBS WHITE DYSPNEA, EKG CHANGES
--- NOTE | 2019-03-07 14:39 | CASEMGMT ---
RN CM Assessment Introduced role of RN CM to patient, patient daughter Meredith, and patient grandson at bedside.? Patient is alert, oriented and able?to participate in RN CM Assessment. ?Care providers, pharmacy, and demographics verified. Presentation: SOB on exertion past 7-10days. Admit Dx: Exertional Dyspnea Re-Admit: No, OBS 01/15-01/16/19 for CP Barriers/Issues: S/p Bypass surgery and Valve Replacement in December 2018, on Eliquis for Paraxysmal A-Fib & Valve. Was seeing Dr Andrews but now has an appointment March [address] Diggs whom he has not seen yet. PCP: Jeremi Morel Specialists: Cardio- Dr Diggs Preferred Pharmacy: [facility] Insurance: [employer] Benefit:?Yes LNOK: Dtr- Meredith Fair LW/HPOA: No, States has the HPOA papers filled out at home and just needs to get it notarized, states HPOA- [facility] Meredith Fair. Living Arrangements:? Patient normally lives alone in a 2 story home-Address on demographics. Patient has been staying with [facility] since surgery in December, she lives in a 2 story home, patient is staying in the basement there and has about 8-9 steps up the Basement. 2 steps to enter the [facility]'s home. ADL?s: Normally patient is Independent with ambulation and ADL's. Patient needing to use walker this past week but was progressing with assist of ADL's to back to baseline of Independent. Transportation: Patient drives, [facility] will transport on DC DME: Walker HHC: None SNF: After Surgery went to [place] Goal: Return back to [facility] Home DC PLAN: Return back to [facility]'s home with no anticipated needs identified at this time. REYNOLD Castro
--- NOTE | 2019-03-07 15:33 | ECHOCS_ITS ---
Reason For Study: Dyspnea/SOB Procedure This was a 2D Doppler, Color Flow transthoracic echocardiogram. The study was technically difficult. Contrast injection was performed. Exam performed portable in patient room. Left Ventricle Normal LV size. Mild concentric left ventricular hypertrophy. Left ventricular systolic function is normal. The estimated ejection fraction is 60 %. Post operative septal motion. Transmitral diastolic flow velocities suggest moderate (stage 2) diastolic dysfunction (pseudonormal pattern). Mid- inferoseptal : Hypokinetic. Mid-anteroseptal : Hypokinetic. Right Ventricle Normal RV size. Normal systolic function. Atria The left atrium is moderately enlarged. Normal right atrium. No doppler evidence for ASD. Mitral Valve There is no mitral annular calcification. Mild focal mitral valve calcification of the anterior leaflet. Mild-Moderate (1-2+) mitral valve insufficiency. Tricuspid Valve Normal tricuspid valve. Mild tricuspid valve insufficiency. Right ventricular systolic pressure estimated to be 52 mmHg. Aortic Valve The aortic valve is not well visualized, however, there appears to be a stable bioprosthetic aortic valve apparatus in place. Pulmonic Valve The pulmonic valve is not well visualized. Great Vessels Normal sized aortic root. Pericardium/Pleural No pericardial effusion. Medication Diluted definity 2ml given slow IV push to enhance endocardial definition. MMode/2D Measurements & Calculations LVIDd: 4.4 cm IVSd: 1.5 cm LVOT diam: 2.0 cm LVIDs: 3.1 cm LVPWd: 1.4 cm FS: 29.2 % LVOT area: 3.0 cm2 LAV(MOD-bp): 93.6 ml LVAd ap4: 41.6 cm2 SV(MOD-sp4): 91.8 ml LAV(MOD-bp) Indexed: 44.7 ml/m2 EDV(MOD-sp4): 164.3 ml LAV(MOD-sp2): 79.1 ml EDV(sp4-el): 173.5 ml LAV(MOD-sp4): 98.2 ml LVAs ap4: 24.7 cm2 ESV(MOD-sp4): 72.5 ml ESV(sp4-el): 74.4 ml EF(MOD-sp4): 55.9 % EF(sp4-el): 57.1 % SV(sp4-el): 99.1 ml LA A4 area: 25.6 cm2 RA A4 area: 17.5 cm2 Time Measurements MV dec time: 0.24 sec Doppler Measurements & Calculations MV E max len: 96.2 cm/sec Med Peak E' Len: 6.8 cm/sec MV V2 max: 117.3 cm/sec MV A max len: 69.9 cm/sec E/E' med: 14.2 MV max P.5 mmHg MV E/A: 1.4 MV V2 mean: 64.1 cm/sec MV mean P.9 mmHg MV V2 VTI: 25.4 cm MVA(VTI): 2.4 cm2 MV P1/2t max len: 115.6 cm/sec Ao V2 max: 148.3 cm/sec LV V1 max: 100.0 cm/sec MV P1/2t: 69.2 msec Ao max P.8 mmHg LV V1 max P.0 mmHg MV dec slope: 489.5 cm/sec2 Ao V2 mean: 93.3 cm/sec LV V1 mean P.1 mmHg Ao mean P.0 mmHg LV V1 mean: 65.8 cm/sec MVA(P1/2t): 3.2 cm2 Ao V2 VTI: 24.9 cm LV V1 VTI: 20.3 cm RAZA(I,D): 2.4 cm2 RAZA(V,D): 2.0 cm2 SV(LVOT): 61.1 ml PA V2 max: 113.4 cm/sec TR max len: 305.1 cm/sec TR max P.2 mmHg Interpretation Summary The study was technically difficult. Contrast injection was performed. Left ventricular systolic function is normal. The estimated ejection fraction is 60 %. Post operative septal motion. Mild concentric left ventricular hypertrophy. The left atrium is moderately enlarged. Mild focal mitral valve calcification of the anterior leaflet. Mild-Moderate (1-2+) mitral valve insufficiency. Mild tricuspid valve insufficiency. The aortic valve is not well visualized, however, there appears to be a stable bioprosthetic aortic valve apparatus in place. Right ventricular systolic pressure estimated to be 52 mmHg. Transmitral diastolic flow velocities suggest diastolic dysfunction (pseudonormal pattern). Transmitral diastolic flow velocities suggest moderate (stage 2) diastolic dysfunction (pseudonormal pattern). Ordering Physician: Santa Dominguez Referring Physician: Santa Dominguez Performed By: Darion Dsouza RCS
--- NOTE | 2019-03-07 15:33 | EKG12_ITS ---
Test Reason : AM EKG Blood Pressure : / mmHG Vent. Rate : 078 BPM Atrial Rate : 078 BPM P-R Int : 200 ms QRS Dur : 148 ms QT Int : 472 ms P-R-T Axes : 087 061 244 degrees QTc Int : 538 ms Normal sinus rhythm Left bundle branch block Abnormal ECG Confirmed by MARVA BLANK, ATIF ([id number]), business editor MARICRUZ ANGUIANO ([id number]) on 03/11/2019 12:24:25 PM Referred By: Santa Dominguez Confirmed By:ATIF DURHAM MD
[2019-03-07 15:50] LABS: Magnesium 1.7 mg/dL (1.6-2.6)
[2019-03-07 17:30] LABS: Bedside Glucose 106 mg/dL (70-110)
[2019-03-07] MEDS: Ferrous Sulfate 325 MG Tablet PO (17:50)
[2019-03-07] MEDS: Glucerna Shake 120 ML LIQUID PO ×2 (17:55→20:32)
[2019-03-07 20:56] LABS: Bedside Glucose 139 mg/dL (70-110)
[2019-03-07] MEDS: APIXABAN 2.5 MG TABLET PO (20:57)
[2019-03-07] MEDS: Atorvastatin Calcium 40 MG Tablet PO (20:57)
[2019-03-07] MEDS: traZODone 100 MG Tablet PO (20:57)
[2019-03-07] MEDS: busPIRone 5 MG Tablet 10 MG PO (20:57)
[2019-03-07] MEDS: Metoprolol Tartrate 25 MG Tablet PO (20:57)
[2019-03-08] VITALS (19 sets, daily range): BP systolic 141–166; BP diastolic 78–90; PULSE 67–93; RESP 18–26; TEMP 36.2–36.8; O2SAT 95–98
[2019-03-08] MEDS: Albuterol 2.5 MG/3 ML VIAL.NEB. INHALATION ×3 (00:43→18:46)
[2019-03-08] MEDS: 0.9% NaCl Peripheral Flush Adult/Peds IV ×2 (00:45→23:06)
[2019-03-08] MEDS: Morphine 2 MG/ML Syringe IV (00:45)
[2019-03-08 05:22] LABS: International Normalized Ratio 1.5; Prothrombin Time (Protime)PT. 17.5 SECONDS (11.7-14.9)
[2019-03-08 05:23] LABS: Partial Thromboplast Time 37.2 Seconds (24.1-36.2)
[2019-03-08 05:24] LABS: Hematocrit 31.2 % (40-54); Hemoglobin 9.6 g/dl (13.0-16.5); Mean Corp Hgb Conc 30.8 g/gl (32-36); Mean Corpuscular Volume 74.8 fL (80-94); Mean Platelet Vol. 9.1 fl (6.2-12.0); Platelet Count 223 K/mm3 (150-450); RBC Distribution Width CV 17.5 % (11.6-14.6); RBC Distribution Width SD 46.4 fl (35.1-43.9); Red Blood Count 4.17 M/mm3 (4.6-6.2); White Blood Count 6.4 K/mm3 (4.4-11.0)
[2019-03-08 05:28] LABS: Scan Indicated on CBC? Y/N YES- FLAGS NOTED
[2019-03-08 05:43] LABS: ALB/GLOB Ratio 0.7 RATIO (0.9-2.4); AST(SGOT) 135 U/L (15-37); Alanine Aminotransfer ALT/SGPT 86 U/L (16-61); Albumin, Serum 2.6 g/dL (3.2-5.0); Alkaline Phosphatase 121 U/L (45-117); Anion Gap 7 (5-15); BUN 14 mg/dL (7-18); BUN/Creat Ratio 16.3 RATIO (10-20); Calcium,Total 8.4 mg/dL (8.5-10.1); Chloride 98 mmol/L (98-107); Cholesterol 60 mg/dL (200); Creatinine, Serum 0.86 mg/dL (0.70-1.30); EST Glomerular Filtration Rate 91 mL/min (>60); Est Glom Filt Rate - Afr Amer 110 mL/min (>60); Estimated Creatinine Clearance 67.37 ml/min; Globulin 3.5 g/dL (2.2-4.2); Glucose 106 mg/dL (74-106); High Density Lipoprotein 30 mg/dL; Potassium 3.5 mmol/L (3.5-5.1); Protein, Total 6.1 g/dL (6.4-8.2); Sodium Level 136 mmol/L (136-145); Triglycerides 81 mg/dL; Very Low Density Lipoprotein 16 mg/dL (5-40)
--- NOTE | 2019-03-08 05:55 | EKG12_ITS ---
Test Reason : ADMISSION Blood Pressure : / mmHG Vent. Rate : 084 BPM Atrial Rate : 084 BPM P-R Int : 206 ms QRS Dur : 148 ms QT Int : 434 ms P-R-T Axes : 081 068 259 degrees QTc Int : 512 ms Normal sinus rhythm Left bundle branch block Abnormal ECG Confirmed by MARVA BLANK, ATIF ([id number]), food expeditor MARICRUZ ANGUIANO ([id number]) on 03/11/2019 12:27:25 PM Referred By: Santa Dominguez Confirmed By:ATIF DURHAM MD
[2019-03-08 05:56] LABS: Differential Comment SCAN
[2019-03-08] MEDS: Amiodarone 200 MG Tablet PO (06:31)
[2019-03-08 06:40] LABS: Bedside Glucose 110 mg/dL (70-110)
--- NOTE | 2019-03-08 09:59 | PN_ITS ---
Patient Problems: Active and Suspected Problems (Last Updated 03/07/19 @ 11:22 by Jamilah Chisholm) Near syncope (Acute) Dyspnea on exertion (Acute) Acute systolic (congestive) heart failure (Acute) Subjective: Patient is an 83-year-old gentleman with significant past cardiac history including CAD status post CABG x2 and AVR on 01/01/2019 at [facility] who presented with progressive shortness of breath and dizziness. On assessment of acute on chronic systolic heart failure made admitted to monitored floor for further management Objective: GENERAL: cooperative HEENT: Atraumatic; moist oral mucosa EYES; Anicteric, Normal Conjunctiva NECK; supple, normal thyroid, RESPIRATORY: Diminished to auscultation bilaterally, CARDIOVASCULAR: Regular S1 S2, systolic murmurs GI: soft, non-tender, normoactive bowel sounds, : No Renal angle tenderness; EXTREMITIES: bipedal edema, no clubbing, no cyanosis. NEURO: Awake; no lateralizing signs. SKIN: No Rash PSYCH; Normal affect Vitals/I&O's: Vital Signs Temp Pulse Resp BP Pulse Ox 97.8 F 79 20 H 157/84 H 97 03/08/19 06:29 03/08/19 07:17 03/08/19 06:29 03/08/19 06:29 03/08/19 06:29 Oxygen Flow Rate (L/min) 2 Oxygen Delivery Method Nasal Cannula Weight: 93.6 kg Body Mass Index (BMI) 30.5 Intake and Output for Last 24 Hours 03/06/19 03/07/19 03/08/19 23:59 23:59 23:59 Intake Total 240 / 240 30 / 30 Output Total 350 / 350 Balance 240 / 240 -320 / -320 Laboratory Results 03/07/19 12:30: WBC 5.9, RBC 4.37 L, Hgb 10.2 L, Hct 33.1 L, MCV 75.7 L, MCH 23.3 L, MCHC 30.8 L, RDW 17.4 H, RDW Differential 47.6 H, Plt Count 203, MPV 9.4 , Immature Gran % (Auto) 0.200, Neut % (Auto) 77.2 H, Lymph % (Auto) 10.8 L, [place] % (Auto) 9.8, Eos % (Auto) 1.5, Baso % (Auto) 0.5, Absolute Neuts (auto) 4.6, Absolute Lymphs (auto) 0.64 L, Total Counted Not Reportable 03/07/19 12:30: Sodium 134 L, Potassium 3.5, Chloride 96 L, Carbon Dioxide 30.0, Anion Gap 8, BUN 17, Creatinine 1.17, Estim Creat Clear Calc 49.52, Est GFR (MDRD) Af Amer 77, Est GFR (MDRD) Non-Af 64, BUN/Creatinine Ratio 14.5, Glucose 210 H, Calcium 8.4 L, Troponin I 0.029 03/07/19 12:30: B-Natriuretic Peptide 438.2 H 03/07/19 12:30: Magnesium 1.7 03/07/19 15:40: Troponin I 0.030 03/07/19 16:26: POC Glucose 106 03/07/19 19:20: Troponin I 0.030 03/07/19 20:31: POC Glucose 139 H 03/08/19 05:00: WBC 6.4, RBC 4.17 L, Hgb 9.6 L, Hct 31.2 L, MCV 74.8 L, MCH 23.0 L, MCHC 30.8 L, RDW 17.5 H, RDW Differential 46.4 H, Plt Count 223, MPV 9.1, Differential Comment SCAN 03/08/19 05:00: Sodium 136, Potassium 3.5, Chloride 98, Carbon Dioxide 31.0, Anion Gap 7, BUN 14, Creatinine 0.86, Estim Creat Clear Calc 67.37, Est GFR (MDRD) Af Amer 110, Est GFR (MDRD) Non-Af 91, BUN/Creatinine Ratio 16.3, Glucose 106, Calcium 8.4 L, Total Bilirubin 1.10 H, AST 135 H, ALT 86 H, Alkaline Phosphatase 121 H, Total Protein 6.1 L, Albumin 2.6 L, Globulin 3.5, Albumin/Globulin Ratio 0.7 L, Triglycerides 81, Cholesterol 60, LDL Cholesterol 14, VLDL Cholesterol 16, HDL Cholesterol 30 L 03/08/19 05:00: PT 17.5 H, INR 1.5, APTT 37.2 H 03/08/19 06:35: POC Glucose 110 Current Medications Acetaminophen (Tylenol) 650 mg PO Q6H PRN PRN PRN Reason: Non-cardiac pain (mod-severe) Hydrocodone Bitart/Acetaminophen (Argyle 5mg-325mg) 1 - 2 tablet PO Q6H PRN PRN PRN Reason: MOD-SEVERE PAIN (4-10/10) Al Hydroxide/Mg Hydroxide (Mylanta Ii) 15 - 30 ml PO Q4H PRN PRN PRN Reason: INDIGESTION Albuterol Sulfate (Ventolin Aerosols) 2.5 mg INHALATION Q2H PRN PRN PRN Reason: dyspnea, wheezing Last Admin: 03/08/19 00:43 Dose: 2.5 mg Amiodarone HCl (Cordarone) 200 mg PO DAILY [facility] Last Admin: 03/08/19 06:31 Dose: 200 mg Apixaban (Eliquis) 2.5 mg PO BID [facility] Last Admin: 03/07/19 20:57 Dose: 2.5 mg Atorvastatin Calcium (Lipitor) 40 mg PO QHS [facility] Last Admin: 03/07/19 20:57 Dose: 40 mg Buspirone HCl (Buspar) 10 mg PO BID [facility] Last Admin: 03/07/19 20:57 Dose: 10 mg Doxepin HCl (Doxepin Hcl) 100 mg PO DAILY [facility] Ferrous Sulfate (Ferrous Sulfate) 325 mg PO 1200,1700 [facility] Last Admin: 03/07/19 17:50 Dose: 325 mg Furosemide (Lasix) 40 mg PO DAILY [facility] Hydralazine HCl (Apresoline Iv) 10 mg IV Q4H PRN PRN PRN Reason: SBP > 160 Magnesium Hydroxide (Milk Of Magnesia) 30 ml PO DAILY PRN PRN Reason: Constipation Metoprolol Tartrate (Lopressor (Beta Triston)) 25 mg PO BID [facility] Last Admin: 03/07/19 20:57 Dose: 25 mg Morphine Sulfate () 1 - 2 mg IV Q4H PRN PRN PRN Reason: PAIN Last Admin: 03/08/19 00:45 Dose: 2 mg Nitroglycerin (Nitrostat) 0.4 mg SUBLINGUAL Q5M PRN PRN Reason: CARDIAC/CHEST PAIN Nutritional Formula (Lactose Free) (Glucerna Shake) 120 ml PO 4X/DAY [facility] Last Admin: 03/07/19 20:32 Dose: 120 ml Ondansetron HCl (Zofran) 4 mg IV Q8H PRN PRN PRN Reason: NAUSEA/VOMITING Potassium Chloride (K-Dur) 20 meq PO DAILY [facility] Sodium Chloride () 5 - 15 ml IV UD PRN PRN Reason: SALINE FLUSH Last Admin: 03/08/19 00:45 Dose: 10 ml Trazodone HCl (Desyrel) 100 mg PO QHS [facility] Last Admin: 03/07/19 20:57 Dose: 100 mg Medical Necessity - Tobacco Use Smoking Status: Never smoker Tobacco Use: Non-smoker Assessment/Plan All Active Problems (Last Updated 03/07/19 @ 11:18 by Jamilah Chisholm) Near syncope (Acute) Dyspnea on exertion (Acute) Acute systolic (congestive) heart failure (Acute) H/O aortic valve replacement (Resolved 01/01/19) H/O coronary artery bypass surgery (Resolved 01/01/19) Patient is an 83-year-old gentleman with significant past cardiac history including CAD status post CABG x2 and AVR on 01/01/2019 at [facility] who presented with progressive shortness of breath treated with exertion. Admitted to monitored bed for subsequent management 1. Exertional dyspnea and the patient with known CAD. Patient was placed on a monitored bed. Did rule out MD with serial cardiac enzymes. Subsequently underwent a nuclear stress test which was negative for stress-induced ischemia 2. Acute on chronic systolic heart failure: Admitted to monitored bed placed on fluid restriction, strict input and input, IV Lasix repeat echo ordered for EF assessment 3. CAD status post CABG x2 at [place] on 01/01/2019 4. Severe aortic valve stenosis status post aortic valve replacement at [place] on 01/01/2019 5. Dyslipidemia-patient is on statin therapy, continued at home dose 6. Diabetes mellitus type II: Controlled patient's oral hypoglycemics held. Placed on Accu-Cheks a.c. and at bedtime and covered with sliding scale insulin 7. Chronic kidney disease ruled out 8. Hypertension-blood pressure controlled, home medications continued with dose adjustment as needed 9. Paroxysmal atrial fibrillation controlled on amiodarone and systemic anticoagulation with Eliquis 10. DVT prophylaxis patient is on Eliquis Active Medications Acetaminophen (Tylenol) 650 mg PO Q6H PRN PRN PRN Reason: Non-cardiac pain (mod-severe) Hydrocodone Bitart/Acetaminophen ([place] 5mg-325mg) 1 - 2 tablet PO Q6H PRN PRN PRN Reason: MOD-SEVERE PAIN (4-10/10) Al Hydroxide/Mg Hydroxide (Mylanta Ii) 15 - 30 ml PO Q4H PRN PRN PRN Reason: INDIGESTION Albuterol Sulfate (Ventolin Aerosols) 2.5 mg INHALATION Q2H PRN PRN PRN Reason: dyspnea, wheezing Last Admin: 03/08/19 00:43 Dose: 2.5 mg Amiodarone HCl (Cordarone) 200 mg PO DAILY [facility] Last Admin: 03/08/19 06:31 Dose: 200 mg Apixaban (Eliquis) 2.5 mg PO BID [facility] Last Admin: 03/07/19 20:57 Dose: 2.5 mg Atorvastatin Calcium (Lipitor) 40 mg PO QHS [facility] Last Admin: 03/07/19 20:57 Dose: 40 mg Buspirone HCl (Buspar) 10 mg PO BID [facility] Last Admin: 03/07/19 20:57 Dose: 10 mg Doxepin HCl (Doxepin Hcl) 100 mg PO DAILY [facility] Ferrous Sulfate (Ferrous Sulfate) 325 mg PO 1200,1700 [facility] Last Admin: 03/07/19 17:50 Dose: 325 mg Furosemide (Lasix) 40 mg PO DAILY [facility] Hydralazine HCl (Apresoline Iv) 10 mg IV Q4H PRN PRN PRN Reason: SBP > 160 Magnesium Hydroxide (Milk Of Magnesia) 30 ml PO DAILY PRN PRN Reason: Constipation Metoprolol Tartrate (Lopressor (Beta Triston)) 25 mg PO BID [facility] Last Admin: 03/07/19 20:57 Dose: 25 mg Morphine Sulfate () 1 - 2 mg IV Q4H PRN PRN PRN Reason: PAIN Last Admin: 03/08/19 00:45 Dose: 2 mg Nitroglycerin (Nitrostat) 0.4 mg SUBLINGUAL Q5M PRN PRN Reason: CARDIAC/CHEST PAIN Nutritional Formula (Lactose Free) (Glucerna Shake) 120 ml PO 4X/DAY [facility] Last Admin: 03/07/19 20:32 Dose: 120 ml Ondansetron HCl (Zofran) 4 mg IV Q8H PRN PRN PRN Reason: NAUSEA/VOMITING Potassium Chloride (K-Dur) 20 meq PO DAILY [facility] Sodium Chloride () 5 - 15 ml IV UD PRN PRN Reason: SALINE FLUSH Last Admin: 03/08/19 00:45 Dose: 10 ml Trazodone HCl (Desyrel) 100 mg PO QHS [facility] Last Admin: 03/07/19 20:57 Dose: 100 mg Clinical Impression(s) from Imaging Studies Chest X-Ray 03/07/19 12:18 IMPRESSION: Degenerative changes, as described above. No demonstrated acute cardiopulmonary process. Electronically Signed: Pancho Bañuelos MD at 12:44 EDT , Service support , Code Visit Inpatient E&M: 31586 Subs Hosp L3
--- NOTE | 2019-03-08 11:40 | STRESSREP_ITS ---
Stress Test Report Date: 03-08-19 Procedure: Pharmacologic stress nuclear imaging study Indications: Chest pain; CAD; status post CABG; status post AVR; PAF Consent: Per the patient Procedure: The patient underwent pharmacologic (Regadenoson) evaluation with a peak heart rate of 97 beats per minute (69 %predicted maximal heart rate) and a peak blood pressure of 190/94 mmHg. The baseline ECG demonstrated sinus rhythm with a left bundle branch block pattern. The peak pharmacologic ECG demonstrated a continued left bundle branch block pattern. There were no cardiac dysrhythmias pretest, during pharmacologic infusion, or recovery. There was no complaint of chest discomfort during pharmacologic infusion or recovery. The examination was discontinued secondary to completion of protocol. Impression: 1. Pharmacologic (Regadenoson) evaluation 2. Peak pharmacologic ECG with continued left bundle branch block pattern. 3. There were no cardiac dysrhythmias pretest, during pharmacologic infusion, or recovery. 4. Nuclear images pending Myocardial perfusion imaging study: Technique: The patient was injected with 15 millicuries of technetium 99m Cardiolite and subsequently rest SPECT Cardiolite nuclear imaging was obtained in the horizontal long, vertical long, and short axis views. The patient underwent pharmacologic (Regadenoson) evaluation with a peak heart rate of 97 beats per minute (69 % percent predicted maximal heart rate) and a peak blood pressure of 190/94 mmHg. The patient was injected with 44.1 millicuries of technetium 99m Cardiolite and subsequently stress SPECT Cardiolite nuclear imaging was obtained in the horizontal long, vertical long, and short axis views. A gated Cardiolite study at peak stress was obtained. Interpretation: Rest and stress SPECT Cardiolite nuclear imaging status post realignment, normalization, and attenuation correction demonstrate relative uniform tracer uptake and myocardial perfusion appearing within normal limits. There is end systolic thickening and brightening. The gated Cardiolite study demonstrates myocardial thickening and inward wall motion. The reported LVEF is 58 %. Impression: 1. Rest and stress SPECT Cardiolite nuclear imaging demonstrate relative uniform tracer uptake and myocardial perfusion appearing within normal limits. 2. The gated Cardiolite study reports an LVEF of 58 %. This note was generated with [employer] software. It may contain incorrect words, spelling, and punctuation that were not noted in checking the note before signing.
[2019-03-08] MEDS: busPIRone 5 MG Tablet 10 MG PO ×2 (11:46→22:47)
[2019-03-08] MEDS: Glucerna Shake 120 ML LIQUID PO ×4 (11:47→22:46)
[2019-03-08] MEDS: DOXEPIN HCL 50 MG CAPSULE 100 MG PO (11:47)
[2019-03-08] MEDS: APIXABAN 2.5 MG TABLET PO (11:47)
[2019-03-08] MEDS: Metoprolol Tartrate 25 MG Tablet PO ×2 (11:48→22:48)
[2019-03-08] MEDS: Ferrous Sulfate 325 MG Tablet PO ×2 (11:49→16:46)
--- NOTE | 2019-03-08 12:07 | CON.PCM_ITS ---
Reason for Consult Date of Consultation: 03/08/19 History of Present Illness: The patient is a 83 year old M [with past medical history of coronary artery disease status post CABG (VILLALBA to LAD, SVG to RCA) and AVR on January 01, 2019 at [facility] coming to the emergency room because of shortness of breath. Patient was feeling better after open heart surgery. However about 7 to 10 days ago he started having shortness of breath which has progressively been getting worse. He denies any chest pain, palpitations.] Past Medical History Allergies/Adverse Reactions: Allergies No Known Allergies Allergy (Verified 03/07/19 11:58) Home Medications: Ambulatory Orders Medication Instructions Recorded traZODone [Desyrel] 100 mg PO QHS 10/30/18 Amiodarone HCl 200 mg PO DAILY 01/15/19 Apixaban [Eliquis] 2.5 mg PO BID 01/15/19 Atorvastatin Calcium 40 mg PO DAILY 01/15/19 Doxepin HCl 100 mg PO QHS 01/15/19 Metoprolol Tartrate 25 mg PO BID 01/15/19 Ferrous Sulfate 325 mg PO 1200,1700 tablet 01/16/19 Buspirone HCl 10 mg PO BID 03/07/19 Furosemide 40 mg PO DAILY 03/07/19 Glipizide [Glipizide ER] 10 mg PO DAILY 03/07/19 Potassium Chloride [K-Dur] 20 meq PO DAILY 03/07/19 Vit A/Vit C/Vit E/Zinc/Copper 1 cap PO DAILY 03/07/19 [Preservision Areds Softgel] Past Medical History (Chronic Problems): Chronic Problems (Last Updated 03/07/19 @ 11:22 by Jamilah Chisholm) Systolic CHF (Chronic) CKD (chronic kidney disease) stage 3, GFR 30-59 ml/min (Chronic) Diabetes mellitus, type II (Chronic) Fe deficiency anemia (Chronic) Left bundle branch block (Chronic) Non-rheumatic aortic stenosis (Chronic) Atherosclerosis of coronary artery of [place] heart without angina pectoris (Chronic) Paroxysmal atrial fibrillation (Chronic) Hyperlipidemia (Chronic) Surgical History: - - CABG x 2, AVR (01/01/19), right total hip replacement, bilateral cataract surgery. Psychiatric History: Anxiety - *Family History Maternal History Items: - - Patient with a maternal family history of hypertension as well as chronic COPD with underlying history of tobacco use. Paternal History Items: - - Patient with a paternal family history of hypertension as well as history of aneurysm. Lives: With Family - Patient currently living with his daughter with plans to return to his own home once appropriate. Smoking Status: Never smoker Tobacco Use: Non-smoker Alcohol: None Drugs: None Review of Systems - Review of Systems General: Denies: Fever HEENT: Denies: Eye Pain Cardiovascular: Reports: Shortness of Breath, Orthopnea. Denies: Chest Discomfort Respiratory: Denies: Cough, Hemoptysis Gastrointestinal: Denies: Indigestion, Heart Burn Genitourinary: Denies: Dysuria Muscoloskeletal: Denies: Myalgias Skin: Denies: Rash Neurological: Denies: Seizure Psychiatric: Denies: Anxiety Objective: Vital Signs Temp Pulse Resp BP Pulse Ox 97.8 F 86 20 H 157/84 H 97 03/08/19 06:29 03/08/19 11:48 03/08/19 06:29 03/08/19 06:29 03/08/19 06:29 Oxygen Flow Rate (L/min) 2 Oxygen Delivery Method Nasal Cannula Weight: 206 lb 5.643 oz Body Mass Index (BMI) 30.5 Intake and Output for Last 24 Hours 03/06/19 03/07/19 03/08/19 23:59 23:59 23:59 Intake Total 240 / 240 30 / 30 Output Total 650 / 650 Balance 240 / 240 -620 / -620 General: Awake, Alert, Oriented x 3 HEENT: EOMI, Sclera Non Icteric Neck: Supple, Good ROM, No Lymph Node Enlargement Lungs: - - Fine bibasilar crackles Cardiovascular: Regular Rhythm, Normal S1, Normal S2, No Rubs, No Gallops Murmur Murmur: Grade 2/6, Mid Systolic Vascular: No Carotid Bruits, Normal Radial Pulses, Normal Dorsalis Pedal Pulse, Normal Posterior Tibial Pulses Abdomen: Bowel Sounds Present, Soft, Non Tender, No HSM, No Organomegaly Extremities: No Cyanosis, No Clubbing, Bilateral Edema +2 Neurological: No Focal Motor or Sensory Deficit Psych/Mental Status: Appropriate 03/07/19 12:30: WBC 5.9, RBC 4.37 L, Hgb 10.2 L, Hct 33.1 L, MCV 75.7 L, MCH 23.3 L, MCHC 30.8 L, RDW 17.4 H, RDW Differential 47.6 H, Plt Count 203, MPV 9.4, Immature Gran % (Auto) 0.200, Neut % (Auto) 77.2 H, Lymph % (Auto) 10.8 L, [place] % (Auto) 9.8, Eos % (Auto) 1.5, Baso % (Auto) 0.5, Absolute Neuts (auto) 4.6, Total Counted Not Reportable 03/07/19 12:30: Sodium 134 L, Potassium 3.5, Chloride 96 L, Carbon Dioxide 30.0, Anion Gap 8, BUN 17, Creatinine 1.17, Est GFR (MDRD) Af Amer 77, Est GFR (MDRD) Non-Af 64, BUN/Creatinine Ratio 14.5, Glucose 210 H, Calcium 8.4 L, Troponin I 0.029 03/07/19 12:30: B-Natriuretic Peptide 438.2 H 03/07/19 12:30: Magnesium 1.7 03/07/19 15:40: Troponin I 0.030 03/07/19 19:20: Troponin I 0.030 03/08/19 05:00: WBC 6.4, RBC 4.17 L, Hgb 9.6 L, Hct 31.2 L, MCV 74.8 L, MCH 23.0 L, MCHC 30.8 L, RDW 17.5 H, RDW Differential 46.4 H, Plt Count 223, MPV 9.1 03/08/19 05:00: Sodium 136, Potassium 3.5, Chloride 98, Carbon Dioxide 31.0, Anion Gap 7, BUN 14, Creatinine 0.86, Est GFR (MDRD) Af Amer 110, Est GFR (MDRD) Non-Af 91, BUN/Creatinine Ratio 16.3, Glucose 106, Calcium 8.4 L, Total Bilirubin 1.10 H, Triglycerides 81, Cholesterol 60, LDL Cholesterol 14, VLDL Cholesterol 16, HDL Cholesterol 30 L 03/08/19 05:00: PT 17.5 H, INR 1.5, APTT 37.2 H Rhythm: EKG: ECHO: Going by H&P done at the time of CABG and AVR, EF was preserved on echo in June 2018. Stress Test: Negative for ischemia. No significant regional wall motion abnormalities. Ejection fraction is within normal limits. Cardiac Cath: PCI: CT Surgery: Holter monitor: EPS: PPM: CXR: Chest CT Scan: Assessment/Plan 1. Shortness of breath: Patient appears to be volume overloaded. I will go ahead and change the Lasix to 40 mg IV twice daily. I agree with checking a 2D echo. She will also need his labs to be monitored as he has history of CKD. Currently his creatinine is within normal limits. 2. Atrial fibrillation: This appears to be postop A. fib. Patient is currently in sinus rhythm. Telemetry has revealed no evidence of atrial fibrillation. I will go ahead and discontinue the amiodarone and Eliquis. I will add aspirin 81 mg p.o. daily. 3. Coronary artery disease: Patient had VILLALBA to LAD and SVG to RCA in December 2018. His stress test is negative for ischemia. Continue current medications.
[2019-03-08] MEDS: Furosemide 40 MG/4 ML Vial IV ×2 (13:40→22:48)
[2019-03-08 16:51] LABS: Bedside Glucose 189 mg/dL (70-110)
[2019-03-08] MEDS: Atorvastatin Calcium 40 MG Tablet PO (22:47)
[2019-03-08] MEDS: traZODone 100 MG Tablet PO (22:47)
[2019-03-08 23:05] LABS: Bedside Glucose 131 mg/dL (70-110)
[2019-03-09] VITALS (12 sets, daily range): BP systolic 123–152; BP diastolic 64–89; PULSE 57–106; RESP 16–24; TEMP 36.5–37.6; O2SAT 94–97
[2019-03-09] MEDS: 0.9% NaCl Peripheral Flush Adult/Peds IV ×3 (06:20→22:04)
[2019-03-09] MEDS: Furosemide 40 MG/4 ML Vial IV ×3 (06:20→21:56)
[2019-03-09] MEDS: Aspirin 81 MG TAB.CHEW PO (07:50)
[2019-03-09] MEDS: Metoprolol Tartrate 25 MG Tablet PO ×2 (09:06→21:57)
[2019-03-09] MEDS: Ferrous Sulfate 325 MG Tablet PO ×2 (09:06→16:28)
[2019-03-09] MEDS: busPIRone 5 MG Tablet 10 MG PO ×2 (09:07→21:55)
[2019-03-09] MEDS: Glucerna Shake 120 ML LIQUID PO ×4 (09:08→21:56)
--- NOTE | 2019-03-09 09:55 | PCM.PN.HOSP ---
Patient Problems: Active and Suspected Problems (Last Updated 03/07/19 @ 11:22 by Jamilah Chisholm) Near syncope (Acute) Dyspnea on exertion (Acute) Acute systolic (congestive) heart failure (Acute) Subjective: Patient seen remains quite dyspneic at rest. Patient Lasix was adjusted from p.o. to IV starting 03/08/2019. Patient remains in fluid negative balance.: Patient's potassium down to 3.4 correction initiated Vital Signs Temp 98.7 F 03/09/19 09:14 Pulse 92 03/09/19 09:14 Resp 16 03/09/19 09:14 BP 136/64 H 03/09/19 09:14 Pulse Ox 95 03/09/19 09:14 Intake & Output 03/07/19 03/08/19 03/09/19 23:59 23:59 23:59 Intake Total 240 / 240 510 / 510 180 / 180 Output Total 650 / 650 1275 / 1275 Balance 240 / 240 -140 / -140 -1095 / -1095 Weight: 93.8 kg 93.8 kg 91.3 kg Intake: Oral 240 / 240 510 / 510 180 / 180 Output: Urine 650 / 650 1275 / 1275 Other: Number of Voids 3 2 Objective: GENERAL: cooperative dyspneic at rest HEENT: Atraumatic; moist oral mucosa EYES; Anicteric, Normal Conjunctiva NECK; supple, normal thyroid, RESPIRATORY: Diminished to auscultation bilaterally, CARDIOVASCULAR: Regular S1 S2, systolic murmurs GI: soft, non-tender, normoactive bowel sounds, : No Renal angle tenderness; EXTREMITIES: bipedal edema, no clubbing, no cyanosis. NEURO: Awake; no lateralizing signs. SKIN: No Rash PSYCH; Normal affect Vitals/I&O's: Vital Signs Temp Pulse Resp BP Pulse Ox 98.7 F 92 16 136/64 H 95 03/09/19 09:14 03/09/19 09:14 03/09/19 09:14 03/09/19 09:14 03/09/19 09:14 Oxygen Flow Rate (L/min) 2 Oxygen Delivery Method Nasal Cannula Weight: 91.3 kg Body Mass Index (BMI) 30.5 Intake and Output for Last 24 Hours 03/07/19 03/08/19 03/09/19 23:59 23:59 23:59 Intake Total 240 / 240 510 / 510 180 / 180 Output Total 650 / 650 1275 / 1275 Balance 240 / 240 -140 / -140 -1095 / -1095 Laboratory Results 03/08/19 16:45: POC Glucose 189 H 03/08/19 22:59: POC Glucose 131 H Current Medications Acetaminophen (Tylenol) 650 mg PO Q6H PRN PRN PRN Reason: Non-cardiac pain (mod-severe) Hydrocodone Bitart/Acetaminophen ([place] 5mg-325mg) 1 - 2 tablet PO Q6H PRN PRN PRN Reason: MOD-SEVERE PAIN (4-08/22) Al Hydroxide/Mg Hydroxide (Mylanta Ii) 15 - 30 ml PO Q4H PRN PRN PRN Reason: INDIGESTION Albuterol Sulfate (Ventolin Aerosols) 2.5 mg INHALATION Q2H PRN PRN PRN Reason: dyspnea, wheezing Last Admin: 03/08/19 18:46 Dose: 2.5 mg Aspirin (Aspirin, Baby) 81 mg PO DAILY@0800 [facility] Last Admin: 03/09/19 07:50 Dose: 81 mg Atorvastatin Calcium (Lipitor) 40 mg PO QHS [facility] Last Admin: 03/08/19 22:47 Dose: 40 mg Buspirone HCl (Buspar) 10 mg PO BID [facility] Last Admin: 03/09/19 09:07 Dose: 10 mg Doxepin HCl (Doxepin Hcl) 100 mg PO DAILY@2200 [facility] Ferrous Sulfate (Ferrous Sulfate) 325 mg PO 1200,1700 [facility] Last Admin: 03/09/19 09:06 Dose: 325 mg Furosemide (Lasix) 40 mg IV Q8 [facility] Last Admin: 03/09/19 06:20 Dose: 40 mg Hydralazine HCl (Apresoline Iv) 10 mg IV Q4H PRN PRN PRN Reason: SBP > 160 Magnesium Hydroxide (Milk Of Magnesia) 30 ml PO DAILY PRN PRN Reason: Constipation Metoprolol Tartrate (Lopressor (Beta Triston)) 25 mg PO BID [facility] Last Admin: 03/09/19 09:06 Dose: 25 mg Morphine Sulfate () 1 - 2 mg IV Q4H PRN PRN PRN Reason: PAIN Last Admin: 03/08/19 00:45 Dose: 2 mg Nitroglycerin (Nitrostat) 0.4 mg SUBLINGUAL Q5M PRN PRN Reason: CARDIAC/CHEST PAIN Nutritional Formula (Lactose Free) (Glucerna Shake) 120 ml PO 4X/DAY [facility] Last Admin: 03/09/19 09:08 Dose: 120 ml Ondansetron HCl (Zofran) 4 mg IV Q8H PRN PRN PRN Reason: NAUSEA/VOMITING Potassium Chloride (K-Dur) 20 meq PO DAILY [facility] Last Admin: 03/09/19 09:07 Dose: 20 meq Sodium Chloride () 5 - 15 ml IV UD PRN PRN Reason: SALINE FLUSH Last Admin: 03/09/19 06:20 Dose: 10 ml Trazodone HCl (Desyrel) 100 mg PO QHS [facility] Last Admin: 03/08/19 22:47 Dose: 100 mg Medical Necessity - Tobacco Use Smoking Status: Never smoker Tobacco Use: Non-smoker Assessment/Plan All Active Problems (Last Updated 03/07/19 @ 11:18 by Jamilah Chisholm) Near syncope (Acute) Dyspnea on exertion (Acute) Acute systolic (congestive) heart failure (Acute) H/O aortic valve replacement (Resolved 01/01/19) H/O coronary artery bypass surgery (Resolved 01/01/19) Patient is an 83-year-old gentleman with significant past cardiac history including CAD status post CABG x2 and AVR on 01/01/2019 at [facility] who presented with progressive shortness of breath treated with exertion. Admitted to monitored bed for subsequent management 1. Exertional dyspnea and the patient with known CAD. Patient was placed on a monitored bed. Did rule out CO with serial cardiac enzymes. Subsequently underwent a nuclear stress test which was negative for stress-induced ischemia 2. Acute on chronic systolic heart failure (heart failure with preserved ejection fraction): Admitted to monitored bed placed on fluid restriction, strict input and input, IV Lasix repeat echo ordered on 03/08/2019 demonstrated EF of 60% patient RVSP was estimated to be 52. Patient remains in negative fluid balance however significant leg dyspneic at rest as of 03/09/2019 3. CAD status post CABG x2 at [place] on 01/01/2019 4. Severe aortic valve stenosis status post aortic valve replacement at [place] on 01/01/2019 5. Dyslipidemia-patient is on statin therapy, continued at home dose 6. Diabetes mellitus type II: Controlled patient's oral hypoglycemics held. Placed on Accu-Cheks a.c. and at bedtime and covered with sliding scale insulin 7. Chronic kidney disease ruled out 8. Hypertension-blood pressure controlled, home medications continued with dose adjustment as needed 9. Paroxysmal atrial fibrillation controlled on amiodarone and systemic anticoagulation with Eliquis 10. DVT prophylaxis patient is on Eliquis 11. Hypokalemia corrected per protocol Code Visit Inpatient E&M: 75067 Subs Hosp L3
[2019-03-09 10:57] LABS: Anion Gap 8 (5-15); BUN 17 mg/dL (7-18); BUN/Creat Ratio 15.5 RATIO (10-20); Calcium,Total 8.1 mg/dL (8.5-10.1); Chloride 95 mmol/L (98-107); EST Glomerular Filtration Rate 68 mL/min (>60); Est Glom Filt Rate - Afr Amer 83 mL/min (>60); Estimated Creatinine Clearance 52.67 ml/min; Glucose 192 mg/dL (74-106); Magnesium 1.8 mg/dL (1.6-2.6); Potassium 3.4 mmol/L (3.5-5.1); Sodium Level 135 mmol/L (136-145)
[2019-03-09 11:18] LABS: Absolute Lymphocyte Count 0.61 X10^3/ul (0.83-4.51); Absolute Neutrophil Count 4.7 X10^3/uL (2.0-7.7); Basophil# 0.02 X10^3/uL; Basophil% 0.3 % (0-1); Eosinophil# 0.18 X10^3/uL; Eosinophils% 2.9 % (0-5); Hematocrit 32.6 % (40-54); Hemoglobin 9.9 g/dl (13.0-16.5); Lymphocyte # 0.61 X10^3/ul (4.0); Lymphocyte % 9.9 % (19-41); Mean Corp Hgb Conc 30.4 g/gl (32-36); Mean Corpuscular Hgb 22.9 pg (27.0-32.0); Mean Corpuscular Volume 75.3 fL (80-94); Mean Platelet Vol. 9.2 fl (6.2-12.0); Monocyte# 0.61 X10^3/uL; Monocyte% 9.9 % (0-10); Neutrophil # 4.72 X10^3/uL (2.7-7.7); Neutrophil % 76.8 % (47-70); Platelet Count 218 K/mm3 (150-450); RBC Distribution Width CV 17.4 % (11.6-14.6); RBC Distribution Width SD 47.5 fl (35.1-43.9); Red Blood Count 4.33 M/mm3 (4.6-6.2); White Blood Count 6.2 K/mm3 (4.4-11.0)
[2019-03-09 11:19] LABS: POSITIVE COUNT NO; POSITIVE DIFFERENTIAL NO; POSITIVE MORPHOLOGY NO
[2019-03-09 11:26] LABS: Bedside Glucose 171 mg/dL (70-110)
--- NOTE | 2019-03-09 13:07 | PCM.PN.CARD ---
Subjectve: The patient believes his breathing has improved somewhat. He still has an element of lower extremity edema. Objective: Vital Signs Temp Pulse Resp BP Pulse Ox 98.7 F 96 16 136/64 H 95 03/09/19 09:14 03/09/19 12:30 03/09/19 09:14 03/09/19 09:14 03/09/19 09:14 Oxygen Flow Rate (L/min) 2 Oxygen Delivery Method Nasal Cannula Weight: 201 lb 4.513 oz Body Mass Index (BMI) 30.5 Intake and Output for Last 24 Hours 03/07/19 03/08/19 03/09/19 23:59 23:59 23:59 Intake Total 240 / 240 510 / 510 420 / 420 Output Total 650 / 650 1275 / 1275 Balance 240 / 240 -140 / -140 -855 / -855 General: Awake, Alert, Oriented x 3, Cooperative, No Acute Distress HEENT: Atraumatic, Normocephalic, PERRL, EOMI, Sclera Non Icteric Oral: Moist Mucosa Neck: Supple, Good ROM, No JVD Lungs: Rales - Jimbo Bases Cardiovascular: Regular Rhythm, Normal S1, Normal S2 Murmur Murmur: Grade 2/6, Mid Systolic, LLSB, LVOT, Sternal Notch Abdomen: Bowel Sounds Present, Soft, Non Tender Extremities: Mild RLE Edema, Mild LLE Edema Psych/Mental Status: Appropriate 03/09/19 10:16: WBC 6.2, RBC 4.33 L, Hgb 9.9 L, Hct 32.6 L, MCV 75.3 L, MCH 22.9 L, MCHC 30.4 L, RDW 17.4 H, RDW Differential 47.5 H, Plt Count 218, MPV 9.2, Immature Gran % (Auto) 0.200, Neut % (Auto) 76.8 H, Lymph % (Auto) 9.9 L, [place] % (Auto) 9.9, Eos % (Auto) 2.9, Baso % (Auto) 0.3, Absolute Neuts (auto) 4.7, Total Counted Not Reportable 03/09/19 10:16: Sodium 135 L, Potassium 3.4 L, Chloride 95 L, Carbon Dioxide 32.0, Anion Gap 8, BUN 17, Creatinine 1.10, Est GFR (MDRD) Af Amer 83, Est GFR (MDRD) Non-Af 68, BUN/Creatinine Ratio 15.5, Glucose 192 H, Calcium 8.1 L, Magnesium 1.8 Rhythm: Sinus rhythm ECHO: 03-08-19 Interpretation Summary The study was technically difficult. Contrast injection was performed. Left ventricular systolic function is normal. The estimated ejection fraction is 60 %. Post operative septal motion. Mild concentric left ventricular hypertrophy. The left atrium is moderately enlarged. Mild focal mitral valve calcification of the anterior leaflet. Mild-Moderate (1-2+) mitral valve insufficiency. Mild tricuspid valve insufficiency. The aortic valve is not well visualized, however, there appears to be a stable bioprosthetic aortic valve apparatus in place. Right ventricular systolic pressure estimated to be 52 mmHg. Transmitral diastolic flow velocities suggest diastolic dysfunction (pseudonormal pattern). Transmitral diastolic flow velocities suggest moderate (stage 2) diastolic dysfunction (pseudonormal pattern). Stress Test: Date: 03-08-19 Procedure: Pharmacologic stress nuclear imaging study Indications: Chest pain; CAD; status post CABG; status post AVR; PAF Consent: Per the patient Procedure: The patient underwent pharmacologic (Regadenoson) evaluation with a peak heart rate of 97 beats per minute (69 %predicted maximal heart rate) and a peak blood pressure of 190/94 mmHg. The baseline ECG demonstrated sinus rhythm with a left bundle branch block pattern. The peak pharmacologic ECG demonstrated a continued left bundle branch block pattern. There were no cardiac dysrhythmias pretest, during pharmacologic infusion, or recovery. There was no complaint of chest discomfort during pharmacologic infusion or recovery. The examination was discontinued secondary to completion of protocol. Impression: 1. Pharmacologic (Regadenoson) evaluation 2. Peak pharmacologic ECG with continued left bundle branch block pattern. 3. There were no cardiac dysrhythmias pretest, during pharmacologic infusion, or recovery. 4. Nuclear images pending Myocardial perfusion imaging study: Technique: The patient was injected with 15 millicuries of technetium 99m Cardiolite and subsequently rest SPECT Cardiolite nuclear imaging was obtained in the horizontal long, vertical long, and short axis views. The patient underwent pharmacologic (Regadenoson) evaluation with a peak heart rate of 97 beats per minute (69 % percent predicted maximal heart rate) and a peak blood pressure of 190/94 mmHg. The patient was injected with 44.1 millicuries of technetium 99m Cardiolite and subsequently stress SPECT Cardiolite nuclear imaging was obtained in the horizontal long, vertical long, and short axis views. A gated Cardiolite study at peak stress was obtained. Interpretation: Rest and stress SPECT Cardiolite nuclear imaging status post realignment, normalization, and attenuation correction demonstrate relative uniform tracer uptake and myocardial perfusion appearing within normal limits. There is end systolic thickening and brightening. The gated Cardiolite study demonstrates myocardial thickening and inward wall motion. The reported LVEF is 58 %. Impression: 1. Rest and stress SPECT Cardiolite nuclear imaging demonstrate relative uniform tracer uptake and myocardial perfusion appearing within normal limits. 2. The gated Cardiolite study reports an LVEF of 58 %. CT Surgery: 01-01-[address] [facility]: VILLALBA to the LAD, SVG to the RCA Aortic valve replacement with a number 25 mm Magna Ease bioprosthetic aortic valve Medical Necessity - Tobacco Use Smoking Status: Never smoker Tobacco Use: Non-smoker Assessment/Plan 1. CAD status post CABG The present time the patient appears to be without any acute symptoms of ongoing angina pectoris. He has undergone noninvasive evaluation with pharmacologic stress nuclear imaging study as noted above. He will continue medical therapy at this time. There are no immediate plans for repeat diagnostic cardiac catheterization. 2. Status post aortic valve replacement: Bioprosthetic At the present time the patient appears to be stable with respect to his bioprosthetic aortic valve based upon his noninvasive studies. He will continue to be followed by history, exam, and echocardiogram in the future as deemed appropriate. He should continue [facility] antibiotic prophylaxis. 3. Atrial fibrillation The present time the patient appears to be in sinus rhythm. He has been placed on antiplatelet therapy. His anticoagulant therapy has been discontinued. He will continue medical management with rate limiting therapy. His antiarrhythmic therapy has been discontinued. 4. CHF: Acute on chronic diastolic mediated At the present time the patient still has an element of shortness of breath/dyspnea and lower extremity peripheral pitting edema. Based upon his noninvasive studies it appears he has overall preserved LV systolic function. Thus these findings may be compatible with acute on chronic diastolic mediated CHF. He will continue to be followed. He is continuing diuretic therapy and electrolyte replacement. 5. Hyperlipidemia The patient will continue lipid-lowering therapy. 6. Hypertension The patient will continue antihypertensive therapy as deemed appropriate. Comment: Of note he has chest x-ray findings per radiology raise concerns of an element of underlying fibrotic related changes. Depending upon the patient's clinical course with respect to his response to medical therapy and future examination and future noninvasive studies including follow-up chest x-ray, etc. consideration to be given as to whether or not he needs further evaluation by pulmonology for any underlying fibrotic related issues. This note was generated with [employer] dictation software. It may contain incorrect words, spelling, and punctuation that were not noted in checking the note before signing.
[2019-03-09] MEDS: traZODone 100 MG Tablet PO (21:56)
[2019-03-09] MEDS: DOXEPIN HCL 50 MG CAPSULE 100 MG PO (21:56)
[2019-03-09] MEDS: Atorvastatin Calcium 40 MG Tablet PO (21:57)
[2019-03-09 23:10] LABS: Bedside Glucose 122 mg/dL (70-110)
[2019-03-10] VITALS (16 sets, daily range): BP systolic 90–126; BP diastolic 60–81; PULSE 88–113; RESP 15–23; TEMP 36.7–38.4; O2SAT 94–100
[2019-03-10] MEDS: Furosemide 40 MG/4 ML Vial IV (05:42)
[2019-03-10] MEDS: 0.9% NaCl Peripheral Flush Adult/Peds IV ×2 (05:46→05:47)
[2019-03-10 07:51] LABS: Anion Gap 7 (5-15); BUN 19 mg/dL (7-18); BUN/Creat Ratio 18.4 RATIO (10-20); Calcium,Total 8.4 mg/dL (8.5-10.1); Chloride 96 mmol/L (98-107); Creatinine, Serum 1.03 mg/dL (0.70-1.30); EST Glomerular Filtration Rate 74 mL/min (>60); Est Glom Filt Rate - Afr Amer 89 mL/min (>60); Estimated Creatinine Clearance 56.25 ml/min; Glucose 130 mg/dL (74-106); Potassium 3.6 mmol/L (3.5-5.1); Sodium Level 137 mmol/L (136-145)
[2019-03-10] MEDS: busPIRone 5 MG Tablet 10 MG PO ×2 (09:32→21:08)
[2019-03-10] MEDS: Glucerna Shake 120 ML LIQUID PO ×4 (09:34→21:09)
[2019-03-10] MEDS: Metoprolol Tartrate 25 MG Tablet PO ×2 (09:34→21:09)
[2019-03-10] MEDS: Aspirin 81 MG TAB.CHEW PO (09:34)
[2019-03-10 10:36] LABS: Bedside Glucose 132 mg/dL (70-110)
--- NOTE | 2019-03-10 10:54 | PCM.PN.HOSP ---
Patient Problems: Active and Suspected Problems (Last Updated 03/07/19 @ 11:22 by Jamilah Chisholm) Near syncope (Acute) Dyspnea on exertion (Acute) Acute systolic (congestive) heart failure (Acute) Subjective: Patient seen continues to improve clinically. Plan is to switch IV Lasix to p.o. Lasix with plan for possible discharge on 03/11/2019 Objective: GENERAL: cooperative HEENT: Atraumatic; moist oral mucosa EYES; Anicteric, Normal Conjunctiva NECK; supple, normal thyroid, RESPIRATORY: Diminished to auscultation bilaterally, CARDIOVASCULAR: Regular S1 S2, systolic murmurs GI: soft, non-tender, normoactive bowel sounds, : No Renal angle tenderness; EXTREMITIES: bipedal edema, no clubbing, no cyanosis. NEURO: Awake; no lateralizing signs. SKIN: No Rash PSYCH; Normal affect Vitals/I&O's: Vital Signs Temp Pulse Resp BP Pulse Ox 98.8 F 113 H 16 126/71 H 96 03/10/19 05:34 03/10/19 09:34 03/10/19 05:34 03/10/19 09:34 03/10/19 05:34 Oxygen Flow Rate (L/min) 1 Oxygen Delivery Method Nasal Cannula Weight: 88.3 kg Body Mass Index (BMI) 30.5 Intake and Output for Last 24 Hours 03/08/19 03/09/19 03/10/19 23:59 23:59 23:59 Intake Total 510 / 510 1060 / 1060 Output Total 650 / 650 2775 / 2775 475 / 475 Balance -140 / -140 -1715 / -1715 -455 / -455 Laboratory Results 03/09/19 10:16: WBC 6.2, RBC 4.33 L, Hgb 9.9 L, Hct 32.6 L, MCV 75.3 L, MCH 22.9 L, MCHC 30.4 L, RDW 17.4 H, RDW Differential 47.5 H, Plt Count 218, MPV 9.2, Immature Gran % (Auto) 0.200, Neut % (Auto) 76.8 H, Lymph % (Auto) 9.9 L, [place] % (Auto) 9.9, Eos % (Auto) 2.9, Baso % (Auto) 0.3, Absolute Neuts (auto) 4.7, Absolute Lymphs (auto) 0.61 L, Total Counted Not Reportable 03/09/19 10:16: Sodium 135 L, Potassium 3.4 L, Chloride 95 L, Carbon Dioxide 32.0, Anion Gap 8, BUN 17, Creatinine 1.10, Estim Creat Clear Calc 52.67, Est GFR (MDRD) Af Amer 83, Est GFR (MDRD) Non-Af 68, BUN/Creatinine Ratio 15.5, Glucose 192 H, Calcium 8.1 L, Magnesium 1.8 03/09/19 11:13: POC Glucose 171 H 03/09/19 21:48: POC Glucose 122 H 03/10/19 06:54: POC Glucose 132 H 03/10/19 07:02: Sodium 137, Potassium 3.6, Chloride 96 L, Carbon Dioxide 34.0 H, Anion Gap 7, BUN 19 H, Creatinine 1.03, Estim Creat Clear Calc 56.25, Est GFR (MDRD) Af Amer 89, Est GFR (MDRD) Non-Af 74, BUN/Creatinine Ratio 18.4, Glucose 130 H, Calcium 8.4 L Current Medications Acetaminophen (Tylenol) 650 mg PO Q6H PRN PRN PRN Reason: Non-cardiac pain (mod-severe) Hydrocodone Bitart/Acetaminophen ([place] 5mg-325mg) 1 - 2 tablet PO Q6H PRN PRN PRN Reason: MOD-SEVERE PAIN (4-10/10) Al Hydroxide/Mg Hydroxide (Mylanta Ii) 15 - 30 ml PO Q4H PRN PRN PRN Reason: INDIGESTION Albuterol Sulfate (Ventolin Aerosols) 2.5 mg INHALATION Q2H PRN PRN PRN Reason: dyspnea, wheezing Last Admin: 03/08/19 18:46 Dose: 2.5 mg Aspirin (Aspirin, Baby) 81 mg PO DAILY@0800 [facility] Last Admin: 03/10/19 09:34 Dose: 81 mg Atorvastatin Calcium (Lipitor) 40 mg PO QHS [facility] Last Admin: 03/09/19 21:57 Dose: 40 mg Buspirone HCl (Buspar) 10 mg PO BID [facility] Last Admin: 03/10/19 09:32 Dose: 10 mg Doxepin HCl (Doxepin Hcl) 100 mg PO DAILY@2200 [facility] Last Admin: 03/09/19 21:56 Dose: 100 mg Ferrous Sulfate (Ferrous Sulfate) 325 mg PO 1200,1700 [facility] Last Admin: 03/09/19 16:28 Dose: 325 mg Furosemide (Lasix) 40 mg IV Q8 [facility] Last Admin: 03/10/19 05:42 Dose: 40 mg Hydralazine HCl (Apresoline Iv) 10 mg IV Q4H PRN PRN PRN Reason: SBP > 160 Magnesium Hydroxide (Milk Of Magnesia) 30 ml PO DAILY PRN PRN Reason: Constipation Metoprolol Tartrate (Lopressor (Beta Triston)) 25 mg PO BID [facility] Last Admin: 03/10/19 09:34 Dose: 25 mg Morphine Sulfate () 1 - 2 mg IV Q4H PRN PRN PRN Reason: PAIN Last Admin: 03/08/19 00:45 Dose: 2 mg Nitroglycerin (Nitrostat) 0.4 mg SUBLINGUAL Q5M PRN PRN Reason: CARDIAC/CHEST PAIN Nutritional Formula (Lactose Free) (Glucerna Shake) 120 ml PO 4X/DAY [facility] Last Admin: 03/10/19 09:34 Dose: 120 ml Ondansetron HCl (Zofran) 4 mg IV Q8H PRN PRN PRN Reason: NAUSEA/VOMITING Potassium Chloride (K-Dur) 40 meq PO DAILY@0800 [facility] Last Admin: 03/10/19 09:33 Dose: 40 meq Sodium Chloride () 5 - 15 ml IV UD PRN PRN Reason: SALINE FLUSH Last Admin: 03/10/19 05:47 Dose: 10 ml Trazodone HCl (Desyrel) 100 mg PO QHS [facility] Last Admin: 03/09/19 21:56 Dose: 100 mg Medical Necessity - Tobacco Use Smoking Status: Never smoker Tobacco Use: Non-smoker Assessment/Plan All Active Problems (Last Updated 03/07/19 @ 11:18 by Jamilah Chisholm) Near syncope (Acute) Dyspnea on exertion (Acute) Acute systolic (congestive) heart failure (Acute) H/O aortic valve replacement (Resolved 01/01/19) H/O coronary artery bypass surgery (Resolved 01/01/19) Patient is an 83-year-old gentleman with significant past cardiac history including CAD status post CABG x2 and AVR on 01/01/2019 at [facility] who presented with progressive shortness of breath treated with exertion. Admitted to monitored bed for subsequent management 1. Exertional dyspnea and the patient with known CAD. Patient was placed on a monitored bed. Did rule out PA with serial cardiac enzymes. Subsequently underwent a nuclear stress test which was negative for stress-induced ischemia 2. Acute on chronic systolic heart failure (heart failure with preserved ejection fraction): Admitted to monitored bed placed on fluid restriction, strict input and input, IV Lasix repeat echo ordered on 03/08/2019 demonstrated EF of 60% patient RVSP was estimated to be 52. IV Lasix to p.o. Lasix on 03/10/2019 3. CAD status post CABG x2 at [place] on 01/01/2019 4. Severe aortic valve stenosis status post aortic valve replacement at [place] on 01/01/2019 5. Dyslipidemia-patient is on statin therapy, continued at home dose 6. Diabetes mellitus type II: Controlled patient's oral hypoglycemics held. Placed on Accu-Cheks a.c. and at bedtime and covered with sliding scale insulin 7. Chronic kidney disease ruled out 8. Hypertension-blood pressure controlled, home medications continued with dose adjustment as needed 9. Paroxysmal atrial fibrillation controlled on amiodarone and systemic anticoagulation with Eliquis 10. DVT prophylaxis patient is on Eliquis 11. Hypokalemia corrected per protocol Code Visit Inpatient E&M: 83808 Subs Hosp L2
--- NOTE | 2019-03-10 10:57 | PN_ITS ---
Patient Problems: Active and Suspected Problems (Last Updated 03/07/19 @ 11:22 by Jamilah Chisholm) Near syncope (Acute) Dyspnea on exertion (Acute) Acute systolic (congestive) heart failure (Acute) Subjective: Patient seen continues to improve clinically. Plan is to switch IV Lasix to p.o. Lasix with plan for possible discharge on 03/11/2019 Objective: GENERAL: cooperative HEENT: Atraumatic; moist oral mucosa EYES; Anicteric, Normal Conjunctiva NECK; supple, normal thyroid, RESPIRATORY: Diminished to auscultation bilaterally, CARDIOVASCULAR: Regular S1 S2, systolic murmurs GI: soft, non-tender, normoactive bowel sounds, : No Renal angle tenderness; EXTREMITIES: bipedal edema, no clubbing, no cyanosis. NEURO: Awake; no lateralizing signs. SKIN: No Rash PSYCH; Normal affect Vitals/I&O's: Vital Signs Temp Pulse Resp BP Pulse Ox 98.8 F 113 H 16 126/71 H 96 03/10/19 05:34 03/10/19 09:34 03/10/19 05:34 03/10/19 09:34 03/10/19 05:34 Oxygen Flow Rate (L/min) 1 Oxygen Delivery Method Nasal Cannula Weight: 88.3 kg Body Mass Index (BMI) 30.5 Intake and Output for Last 24 Hours 03/08/19 03/09/19 03/10/19 23:59 23:59 23:59 Intake Total 510 / 510 1060 / 1060 Output Total 650 / 650 2775 / 2775 475 / 475 Balance -140 / -140 -1715 / -1715 -455 / -455 Laboratory Results 03/09/19 10:16: WBC 6.2, RBC 4.33 L, Hgb 9.9 L, Hct 32.6 L, MCV 75.3 L, MCH 22.9 L, MCHC 30.4 L, RDW 17.4 H, RDW Differential 47.5 H, Plt Count 218, MPV 9.2, Immature Gran % (Auto) 0.200, Neut % (Auto) 76.8 H, Lymph % (Auto) 9.9 L, Teller % (Auto) 9.9, Eos % (Auto) 2.9, Baso % (Auto) 0.3, Absolute Neuts (auto) 4.7, Absolute Lymphs (auto) 0.61 L, Total Counted Not Reportable 03/09/19 10:16: Sodium 135 L, Potassium 3.4 L, Chloride 95 L, Carbon Dioxide 32.0, Anion Gap 8, BUN 17, Creatinine 1.10, Estim Creat Clear Calc 52.67, Est GFR (MDRD) Af Amer 83, Est GFR (MDRD) Non-Af 68, BUN/Creatinine Ratio 15.5, Glucose 192 H, Calcium 8.1 L, Magnesium 1.8 03/09/19 11:13: POC Glucose 171 H 03/09/19 21:48: POC Glucose 122 H 03/10/19 06:54: POC Glucose 132 H 03/10/19 07:02: Sodium 137, Potassium 3.6, Chloride 96 L, Carbon Dioxide 34.0 H, Anion Gap 7, BUN 19 H, Creatinine 1.03, Estim Creat Clear Calc 56.25, Est GFR (MDRD) Af Amer 89, Est GFR (MDRD) Non-Af 74, BUN/Creatinine Ratio 18.4, Glucose 130 H, Calcium 8.4 L Current Medications Acetaminophen (Tylenol) 650 mg PO Q6H PRN PRN PRN Reason: Non-cardiac pain (mod-severe) Hydrocodone Bitart/Acetaminophen (Mears 5mg-325mg) 1 - 2 tablet PO Q6H PRN PRN PRN Reason: MOD-SEVERE PAIN (4-10/10) Al Hydroxide/Mg Hydroxide (Mylanta Ii) 15 - 30 ml PO Q4H PRN PRN PRN Reason: INDIGESTION Albuterol Sulfate (Ventolin Aerosols) 2.5 mg INHALATION Q2H PRN PRN PRN Reason: dyspnea, wheezing Last Admin: 03/08/19 18:46 Dose: 2.5 mg Aspirin (Aspirin, Baby) 81 mg PO DAILY@0800 [facility] Last Admin: 03/10/19 09:34 Dose: 81 mg Atorvastatin Calcium (Lipitor) 40 mg PO QHS [facility] Last Admin: 03/09/19 21:57 Dose: 40 mg Buspirone HCl (Buspar) 10 mg PO BID [facility] Last Admin: 03/10/19 09:32 Dose: 10 mg Doxepin HCl (Doxepin Hcl) 100 mg PO DAILY@2200 [facility] Last Admin: 03/09/19 21:56 Dose: 100 mg Ferrous Sulfate (Ferrous Sulfate) 325 mg PO 1200,1700 [facility] Last Admin: 03/09/19 16:28 Dose: 325 mg Furosemide (Lasix) 40 mg IV Q8 [facility] Last Admin: 03/10/19 05:42 Dose: 40 mg Hydralazine HCl (Apresoline Iv) 10 mg IV Q4H PRN PRN PRN Reason: SBP > 160 Magnesium Hydroxide (Milk Of Magnesia) 30 ml PO DAILY PRN PRN Reason: Constipation Metoprolol Tartrate (Lopressor (Beta Triston)) 25 mg PO BID [facility] Last Admin: 03/10/19 09:34 Dose: 25 mg Morphine Sulfate () 1 - 2 mg IV Q4H PRN PRN PRN Reason: PAIN Last Admin: 03/08/19 00:45 Dose: 2 mg Nitroglycerin (Nitrostat) 0.4 mg SUBLINGUAL Q5M PRN PRN Reason: CARDIAC/CHEST PAIN Nutritional Formula (Lactose Free) (Glucerna Shake) 120 ml PO 4X/DAY [facility] Last Admin: 03/10/19 09:34 Dose: 120 ml Ondansetron HCl (Zofran) 4 mg IV Q8H PRN PRN PRN Reason: NAUSEA/VOMITING Potassium Chloride (K-Dur) 40 meq PO DAILY@0800 [facility] Last Admin: 03/10/19 09:33 Dose: 40 meq Sodium Chloride () 5 - 15 ml IV UD PRN PRN Reason: SALINE FLUSH Last Admin: 03/10/19 05:47 Dose: 10 ml Trazodone HCl (Desyrel) 100 mg PO QHS [facility] Last Admin: 03/09/19 21:56 Dose: 100 mg Medical Necessity - Tobacco Use Smoking Status: Never smoker Tobacco Use: Non-smoker Assessment/Plan All Active Problems (Last Updated 03/07/19 @ 11:18 by Jamilah Chisholm) Near syncope (Acute) Dyspnea on exertion (Acute) Acute systolic (congestive) heart failure (Acute) H/O aortic valve replacement (Resolved 01/01/19) H/O coronary artery bypass surgery (Resolved 01/01/19) Patient is an 83-year-old gentleman with significant past cardiac history including CAD status post CABG x2 and AVR on 01/01/2019 at [facility] who presented with progressive shortness of breath treated with exertion. Admitted to monitored bed for subsequent management 1. Exertional dyspnea and the patient with known CAD. Patient was placed on a monitored bed. Did rule out [place] with serial cardiac enzymes. Subsequently underwent a nuclear stress test which was negative for stress-induced ischemia 2. Acute on chronic systolic heart failure (heart failure with preserved ejection fraction): Admitted to monitored bed placed on fluid restriction, strict input and input, IV Lasix repeat echo ordered on 03/08/2019 demonstrated EF of 60% patient RVSP was estimated to be 52. IV Lasix to p.o. Lasix on 03/10/2019 3. CAD status post CABG x2 at [place] on 01/01/2019 4. Severe aortic valve stenosis status post aortic valve replacement at [place] on 01/01/2019 5. Dyslipidemia-patient is on statin therapy, continued at home dose 6. Diabetes mellitus type II: Controlled patient's oral hypoglycemics held. Placed on Accu-Cheks a.c. and at bedtime and covered with sliding scale insulin 7. Chronic kidney disease ruled out 8. Hypertension-blood pressure controlled, home medications continued with dose adjustment as needed 9. Paroxysmal atrial fibrillation controlled on amiodarone and systemic anticoagulation with Eliquis 10. DVT prophylaxis patient is on Eliquis 11. Hypokalemia corrected per protocol Code Visit Inpatient E&M: 90170 Subs Hosp L2
[2019-03-10] MEDS: Ferrous Sulfate 325 MG Tablet PO ×2 (12:34→17:55)
--- NOTE | 2019-03-10 14:29 | PCM.PN.CARD ---
Subjectve: The patient believes his breathing has improved. He also notes his lower extremity edema has improved. He continues to wear supplemental oxygen. Objective: Vital Signs Temp Pulse Resp BP Pulse Ox 99.2 F H 103 H 18 125/81 H 98 03/10/19 12:53 03/10/19 12:53 03/10/19 12:53 03/10/19 12:53 03/10/19 12:53 Oxygen Flow Rate (L/min) 2 Oxygen Delivery Method Nasal Cannula Weight: 194 lb 10.691 oz Body Mass Index (BMI) 30.5 Intake and Output for Last 24 Hours 03/08/19 03/09/19 03/10/19 23:59 23:59 23:59 Intake Total 510 / 510 1060 / 1060 460 / 460 Output Total 650 / 650 2775 / 2775 1325 / 1325 Balance -140 / -140 -1715 / -1715 -865 / -865 General: Awake, Alert, Oriented x 3, Cooperative, No Acute Distress HEENT: Atraumatic, Normocephalic, PERRL, EOMI, Sclera Non Icteric Oral: Moist Mucosa Neck: Supple, Good ROM, No JVD Lungs: Rales - Jimbo Bases Cardiovascular: Regular Rhythm, Normal S1, Normal S2 Murmur Murmur: Grade 2/6, Mid Systolic, LLSB, LVOT, Sternal Notch Abdomen: Bowel Sounds Present, Soft, Non Tender Extremities: Mild RLE Edema, Mild LLE Edema Neurological: No Focal Motor or Sensory Deficit 03/10/19 07:02: Sodium 137, Potassium 3.6, Chloride 96 L, Carbon Dioxide 34.0 H, Anion Gap 7, BUN 19 H, Creatinine 1.03, Est GFR (MDRD) Af Amer 89, Est GFR (MDRD) Non-Af 74, BUN/Creatinine Ratio 18.4, Glucose 130 H, Calcium 8.4 L Rhythm: Sinus rhythm Medical Necessity - Tobacco Use Smoking Status: Never smoker Tobacco Use: Non-smoker Assessment/Plan 1. CAD status post CABG The present time the patient appears to be without any acute symptoms of ongoing angina pectoris. He has undergone noninvasive evaluation with pharmacologic stress nuclear imaging study as noted above. He will continue medical therapy at this time. There are no immediate plans for repeat diagnostic cardiac catheterization. 2. Status post aortic valve replacement: Bioprosthetic At the present time the patient appears to be stable with respect to his bioprosthetic aortic valve based upon his noninvasive studies. He will continue to be followed by history, exam, and echocardiogram in the future as deemed appropriate. He should continue AHA antibiotic prophylaxis. 3. Atrial fibrillation The present time the patient appears to be in sinus rhythm. He has been placed on antiplatelet therapy. His anticoagulant therapy has been discontinued. He will continue medical management with rate limiting therapy. His antiarrhythmic therapy has been discontinued. 4. CHF: Acute on chronic diastolic mediated At the present time the patient still has an element of shortness of breath/dyspnea and lower extremity peripheral pitting edema. Based upon his noninvasive studies it appears he has overall preserved LV systolic function. Thus these findings may be compatible with acute on chronic diastolic mediated CHF. He will continue to be followed. He is continuing diuretic therapy and electrolyte replacement. His diuretics are being altered from IV diuretics to oral diuretics. 5. Hyperlipidemia The patient will continue lipid-lowering therapy. 6. Hypertension The patient will continue antihypertensive therapy as deemed appropriate. Comment: The patient's case has been previously discussed with Dr. Simental. This note was generated with Intellig[employer] software. It may contain incorrect words, spelling, and punctuation that were not noted in checking the note before signing.
[2019-03-10] MEDS: Furosemide 20 MG Tablet 60 MG PO (17:58)
[2019-03-10] MEDS: DOXEPIN HCL 50 MG CAPSULE 100 MG PO (21:09)
[2019-03-10] MEDS: traZODone 100 MG Tablet PO (21:09)
[2019-03-10] MEDS: Atorvastatin Calcium 40 MG Tablet PO (21:09)
[2019-03-11] VITALS (10 sets, daily range): BP systolic 101–132; BP diastolic 67–81; PULSE 90–111; RESP 16–18; TEMP 36.9–37.5; O2SAT 93–99
--- NOTE | 2019-03-11 01:19 | EKG12_ITS ---
Test Reason : RHYTHM Blood Pressure : / mmHG Vent. Rate : 098 BPM Atrial Rate : 111 BPM P-R Int : 000 ms QRS Dur : 136 ms QT Int : 352 ms P-R-T Axes : 000 079 256 degrees QTc Int : 449 ms Atrial fibrillation Non-specific intra-ventricular conduction block Cannot rule out Septal infarct , age undetermined T wave abnormality, consider inferolateral ischemia Abnormal ECG Confirmed by MARVA BLANK, ATIF ([id number]), food expeditor MARICRUZ ANGUIANO ([id number]) on 03/12/2019 11:26:01 AM Referred By: Santa Dominguez Confirmed By:ATIF DURHAM MD
[2019-03-11 01:21] LABS: Bedside Glucose 146 mg/dL (70-110)
[2019-03-11 05:54] LABS: Anion Gap 5 (5-15); BUN 23 mg/dL (7-18); BUN/Creat Ratio 20.9 RATIO (10-20); Calcium,Total 8.3 mg/dL (8.5-10.1); Chloride 96 mmol/L (98-107); EST Glomerular Filtration Rate 68 mL/min (>60); Est Glom Filt Rate - Afr Amer 83 mL/min (>60); Estimated Creatinine Clearance 52.67 ml/min; Glucose 124 mg/dL (74-106); Potassium 3.8 mmol/L (3.5-5.1); Sodium Level 136 mmol/L (136-145)
--- NOTE | 2019-03-11 07:17 | EKG12_ITS ---
Test Reason : AFIB Blood Pressure : / mmHG Vent. Rate : 112 BPM Atrial Rate : 115 BPM P-R Int : 240 ms QRS Dur : 148 ms QT Int : 394 ms P-R-T Axes : 101 084 257 degrees QTc Int : 537 ms Sinus tachycardia with 1st degree A-V block Non-specific intra-ventricular conduction block Abnormal ECG Confirmed by MARVA BLANK, ATIF ([id number]), desk editor MARICRUZ ANGUIANO ([id number]) on 03/12/2019 11:43:15 AM Referred By: Snata Dominguez Confirmed By:ATIF DURHAM MD
[2019-03-11 07:51] LABS: Bedside Glucose 141 mg/dL (70-110)
[2019-03-11] MEDS: busPIRone 5 MG Tablet 10 MG PO (08:23)
[2019-03-11] MEDS: Metoprolol Tartrate 25 MG Tablet PO (08:23)
[2019-03-11] MEDS: Glucerna Shake 120 ML LIQUID PO ×2 (08:24→11:11)
[2019-03-11] MEDS: Aspirin 81 MG TAB.CHEW PO (08:24)
[2019-03-11] MEDS: Furosemide 20 MG Tablet 60 MG PO (08:24)
[2019-03-11] MEDS: Ferrous Sulfate 325 MG Tablet PO (11:11)
[2019-03-11 11:26] LABS: Bedside Glucose 221 mg/dL (70-110)
--- NOTE | 2019-03-11 15:56 | DCINST_ITS ---
- Discharge Diagnoses Current Active Problems: Current Active and Chronic Problems (Last Updated 03/07/19 @ 11:22 by Jamilah Chisholm) Systolic CHF (Chronic) CKD (chronic kidney disease) stage 3, GFR 30-59 ml/min (Chronic) Diabetes mellitus, type II (Chronic) Fe deficiency anemia (Chronic) You will use the following diet at home:: Cardiac, Fluid restricted (specify 2000 mls, 1500 mls) - 1500 Your food should be the consistency of: Regular Your liquids should be the consistency of: Regular/Thin Discharge Activity: Return to Normal Activity Call your doctor if you observe: Fever of 101 or Higher, Shortness of breath, Chest pain Allergies/Adverse Reactions: Allergies No Known Allergies Allergy (Verified 03/07/19 11:58) Medications to take at Discharge traZODone [Desyrel] 100 mg PO QHS 10/30/18 Amiodarone HCl 200 mg PO DAILY 01/15/19 Apixaban [Eliquis] 2.5 mg PO BID 01/15/19 Atorvastatin Calcium 40 mg PO DAILY 01/15/19 Doxepin HCl 100 mg PO QHS 01/15/19 Metoprolol Tartrate 25 mg PO BID 01/15/19 Ferrous Sulfate 325 mg PO 1200,1700 tablet 01/16/19 Buspirone HCl 10 mg PO BID 03/07/19 Furosemide 40 mg PO DAILY 03/07/19 Glipizide [Glipizide ER] 10 mg PO DAILY 03/07/19 Potassium Chloride [K-Dur] 20 meq PO DAILY 03/07/19 Vit A/Vit C/Vit E/Zinc/Copper [Preservision Areds Softgel] 1 cap PO DAILY 03/07/19 Potassium Chloride [K-Dur] 40 meq PO DAILY@0800 tablet 03/11/19 Primary Care Physician: Jeremi Morel MD [Primary Care Provider] - Within 2 Weeks Test Results: Test results from this visit will be discussed in further detail at your follow- up appointment, if applicable. Please Follow Up With: cardiology When: 2-4 weeks Proposed Discharge Date: 03/11/19
--- NOTE | 2019-03-11 15:58 | PCM.DC.SUM ---
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 No demonstrated acute cardiopulmonary process. Electronically Signed: Pancho Bañuelos MD at 12:44 EDT , Service support , [employer], Cardiology Operations: None Procedures: None Summary of Care Provided: The patient is a 83 year old M with some shortness of breath. Patient was started on IV Lasix though chest x-ray was unremarkable chest. There is a large transition over to oral. 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 Patient was taken off of Eliquis and amiodarone as it was felt to be postoperative A. fib but patient was on this prior to this admission and during previous admissions and was in A. fib during the course of his hospitalization. The Eliquis and amiodarone will be resumed. Patient is breathing fine and has no shortness of breath at this time. No chest pain. Otherwise feeling well. Patient will resume his previous home medications as instructed and will follow up with cardiology as outpatient. [] - Physical Exam General: Alert, Cooperative, No apparent distress HEENT: Atraumatic, Normocephalic Oral: Moist Mucosa, No Gingival or Mucosal Lesions/ Ulcerations Neck: No Nodes, Thyroid Normal Size and Texture Lungs: Clear to auscultation, Normal air movement, No rhonchi, No wheeze Cardiovascular: Regular rate, Regular Rhythm, Normal S1, Normal S2, No murmurs Abdomen: Bowel Sounds Present, Soft, Non Tender, Non-Distended, No Hepato-splenomegaly Extremities: No edema, No Calf Tenderness Skin: No rashes, No breakdown Vital Signs Temp Pulse Resp BP Pulse Ox 37.2 C 99 18 131/81 H 99 03/11/19 14:30 03/11/19 14:30 03/11/19 14:30 03/11/19 14:30 03/11/19 14:30 Oxygen Flow Rate (L/min) 0.5 Oxygen Delivery Method Room Air Weight: 88.3 kg Body Mass Index (BMI) 30.5 Intake and Output for Last 24 Hours 03/09/19 03/10/19 03/11/19 23:59 23:59 23:59 Intake Total 1060 / 1060 980 / 980 360 / 360 Output Total 2775 / 2775 1750 / 1750 675 / 675 Balance -1715 / -1715 -770 / -770 -315 / -315 Laboratory Tests Past 24 Hrs 03/11/19 04:54 Sodium 136 Potassium 3.8 Chloride 96 L Carbon Dioxide 35.0 H Anion Gap 5 BUN 23 H Creatinine 1.10 Estim Creat Clear Calc 52.67 Est GFR (MDRD) Af Amer 83 Est GFR (MDRD) Non-Af 68 BUN/Creatinine Ratio 20.9 H Glucose 124 H Calcium 8.3 L POC Glucose 03/11/19 03/11/19 03/10/19 11:09 06:51 21:15 POC Glucose 221 H 141 H 146 H Discharge Diet: 6 Cup Fluid Restriction, 2000 mg Sodium Diet Discharge Activity: Return to Normal Activity Call your doctor if you observe: Fever of 101 or Higher, Shortness of breath, Chest pain Home Medications: Medications to take at Discharge traZODone [Desyrel] 100 mg PO QHS 10/30/18 Amiodarone HCl 200 mg PO DAILY 01/15/19 Apixaban [Eliquis] 2.5 mg PO BID 01/15/19 Atorvastatin Calcium 40 mg PO DAILY 01/15/19 Doxepin HCl 100 mg PO QHS 01/15/19 Metoprolol Tartrate 25 mg PO BID 01/15/19 Ferrous Sulfate 325 mg PO 1200,1700 tablet 01/16/19 Buspirone HCl 10 mg PO BID 03/07/19 Furosemide 40 mg PO DAILY 03/07/19 Glipizide [Glipizide ER] 10 mg PO DAILY 03/07/19 Potassium Chloride [K-Dur] 20 meq PO DAILY 03/07/19 Vit A/Vit C/Vit E/Zinc/Copper [Preservision Areds Softgel] 1 cap PO DAILY 03/07/19 Potassium Chloride [K-Dur] 40 meq PO DAILY@0800 tablet 03/11/19 Primary Care Physician: Jeremi Morel MD [Primary Care Provider] - Within 2 Weeks Please Follow Up With: cardiology When: 2-4 weeks Disposition: Home Minutes spent on discharge:: 32 Patient Condition:: Fair Medical Necessity - Tobacco Use Smoking Status: Never smoker Tobacco Use: Non-smoker Meaningful Use Info Meaningful Use Diagnoses (Choose all that apply): CHF - CHF WEI/ARB ordered at discharge?: No Reason WEI/ARB not ordered?: Hypotension Documented LVEF (%): 60 Code Visit Inpatient E&M: 37024 Disch Hosp
--- NOTE | 2019-03-11 16:01 | DS.PCM_ITS ---
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 No demonstrated acute cardiopulmonary process. Electronically Signed: Pancho Bañuelos MD at 12:44 EDT , Service support , [employer], Cardiology Operations: None Procedures: None Summary of Care Provided: The patient is a 83 year old M with some shortness of breath. Patient was started on IV Lasix though chest x-ray was unremarkable chest. There is a large transition over to oral. 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 Patient was taken off of Eliquis and amiodarone as it was felt to be postoperative A. fib but patient was on this prior to this admission and during previous admissions and was in A. fib during the course of his hospitalization. The Eliquis and amiodarone will be resumed. Patient is breathing fine and has no shortness of breath at this time. No chest pain. Otherwise feeling well. Patient will resume his previous home medications as instructed and will follow up with cardiology as outpatient. [] - Physical Exam General: Alert, Cooperative, No apparent distress HEENT: Atraumatic, Normocephalic Oral: Moist Mucosa, No Gingival or Mucosal Lesions/ Ulcerations Neck: No Nodes, Thyroid Normal Size and Texture Lungs: Clear to auscultation, Normal air movement, No rhonchi, No wheeze Cardiovascular: Regular rate, Regular Rhythm, Normal S1, Normal S2, No murmurs Abdomen: Bowel Sounds Present, Soft, Non Tender, Non-Distended, No Hepato- splenomegaly Extremities: No edema, No Calf Tenderness Skin: No rashes, No breakdown Vital Signs Temp Pulse Resp BP Pulse Ox 37.2 C 99 18 131/81 H 99 03/11/19 14:30 03/11/19 14:30 03/11/19 14:30 03/11/19 14:30 03/11/19 14:30 Oxygen Flow Rate (L/min) 0.5 Oxygen Delivery Method Room Air Weight: 88.3 kg Body Mass Index (BMI) 30.5 Intake and Output for Last 24 Hours 03/09/19 03/10/19 03/11/19 23:59 23:59 23:59 Intake Total 1060 / 1060 980 / 980 360 / 360 Output Total 2775 / 2775 1750 / 1750 675 / 675 Balance -1715 / -1715 -770 / -770 -315 / -315 Laboratory Tests Past 24 Hrs 03/11/19 04:54 Sodium 136 Potassium 3.8 Chloride 96 L Carbon Dioxide 35.0 H Anion Gap 5 BUN 23 H Creatinine 1.10 Estim Creat Clear Calc 52.67 Est GFR (MDRD) Af Amer 83 Est GFR (MDRD) Non-Af 68 BUN/Creatinine Ratio 20.9 H Glucose 124 H Calcium 8.3 L POC Glucose 03/11/19 03/11/19 03/10/19 11:09 06:51 21:15 POC Glucose 221 H 141 H 146 H Discharge Diet: 6 Cup Fluid Restriction, 2000 mg Sodium Diet Discharge Activity: Return to Normal Activity Call your doctor if you observe: Fever of 101 or Higher, Shortness of breath, Chest pain Home Medications: Medications to take at Discharge traZODone [Desyrel] 100 mg PO QHS 10/30/18 Amiodarone HCl 200 mg PO DAILY 01/15/19 Apixaban [Eliquis] 2.5 mg PO BID 01/15/19 Atorvastatin Calcium 40 mg PO DAILY 01/15/19 Doxepin HCl 100 mg PO QHS 01/15/19 Metoprolol Tartrate 25 mg PO BID 01/15/19 Ferrous Sulfate 325 mg PO 1200,1700 tablet 01/16/19 Buspirone HCl 10 mg PO BID 03/07/19 Furosemide 40 mg PO DAILY 03/07/19 Glipizide [Glipizide ER] 10 mg PO DAILY 03/07/19 Potassium Chloride [K-Dur] 20 meq PO DAILY 03/07/19 Vit A/Vit C/Vit E/Zinc/Copper [Preservision Areds Softgel] 1 cap PO DAILY 03/07/19 Potassium Chloride [K-Dur] 40 meq PO DAILY@0800 tablet 03/11/19 Primary Care Physician: Jeremi Morel MD [Primary Care Provider] - Within 2 Weeks Please Follow Up With: cardiology When: 2-4 weeks Disposition: Home Minutes spent on discharge:: 32 Patient Condition:: Fair Medical Necessity - Tobacco Use Smoking Status: Never smoker Tobacco Use: Non-smoker Meaningful Use Info Meaningful Use Diagnoses (Choose all that apply): CHF - CHF WEI/ARB ordered at discharge?: No Reason WEI/ARB not ordered?: Hypotension Documented LVEF (%): 60 Code Visit Inpatient E&M: 83924 Disch Hosp
--- NOTE | 2019-03-13 14:03 | CASEMGMT ---
JOSAFAT QURESHI Discharge F/U Phone Call LACE: 11 Strata: 3 Discharge date: 03/11/19 Call date: 03/13/19 Call time: [id number] Duration: 2 minutes Admission dx: Acute resp failure/COPD exac Pt states has been 'hanging in there' since discharge. Pt states no questions regarding discharge instructions/medications at this time. Pt states has f/u appts scheduled and plans to keep them. Pt states no suggestions for [facility] at this time. Pt voices no further questions/concerns/needs at this time. [place] JOSAFAT QURESHI
== END 2019-03-11 17:17 | disposition home or self-care (01) | DRG 291 ==
LOC: ED 12:56 → PCU 14:43
PROVIDERS: Internal Medicine; Admitting Provider Family Medicine; Emergency Provider Emergency Medicine; Family Provider Internal Medicine; PCP Internal Medicine; Referring Provider Family Medicine
DX: I11.0 Hypertensive heart disease with heart failure (principal); I50.31 Acute diastolic (congestive) heart failure; I25.10 Atherosclerotic heart disease of native coronary artery without angina pectoris; E78.5 Hyperlipidemia, unspecified; E11.9 Type 2 diabetes mellitus without complications; D50.9 Iron deficiency anemia, unspecified; I48.0 Paroxysmal atrial fibrillation; I44.7 Left bundle-branch block, unspecified; Z95.2 Presence of prosthetic heart valve; E87.6 Hypokalemia; Z95.1 Presence of aortocoronary bypass graft; Z79.84 Long term (current) use of oral hypoglycemic drugs
CPT/HCPCS: 36415; 71045; 78452; 80048; 80053; 80061; 82962; 83735; 83880; 84484; 85025; 85027; 85610; 85730; 93005; 93017; 93306; 94640; 97110; 97162; 97165; 97530; 97535; 97802; 99285; A9500; Q9957; A4216; C8929; J1940; J2785

== ENCOUNTER → 2019-03-28 08:28 | Outpatient (CLI) | payer MEDICARE, SELFPAY ==
[2019-03-27 08:35] VITALS: BMI 28.8
--- NOTE | 2019-03-28 08:36 | PCM.CR.ITP ---
General Information - General Information Admitting Diagnosis: CABG W/HEARTVALVE REPLACEMENT - Education/Goals Individual Counseling: Initial Assessment: Abnormal Cholesterol Levels, High Blood Pressure, Overweight/Obesity, Diabetes, Metabolic Syndrome (as evidenced by 3 of 5 A-E below), Hypertension, Low HDL <40/Males or <50/Females, Sedentary Lifestyle, Stress Cardiac Rehabilitation Goals: 1. Maintain the individual as the primary focus of care. 2. To improve the patient's quality of life. 3. Identification of cardiac risk factors and provide cardiac risk factor management. 4. Enhance the psychosocial status of the patient. 5. Reconditioning enough to allow the patient to resume customary activities. 6. Control symptoms of cardiac disease Scale for measuring improvement of personal goals: Enter appropriate number in Comments. 2 = Unchanged. 3 = Slightly Better. 4 = Moderate Improvement. 5 = Met my Goal Personal Goals: Initial Assessment: Improve management of stress and emotions, Improve energy level, Participate in home exercise program, Improve muscle strength and endurance Exercise - Initial Assessment - Visit Date of Eval: 03/28/19 - Stages of Change Stages of Change:: Action - Physician Prescribed Exercise Modalities: Treadmill, Biodyne, Airdyne, NuStep, SciFit Target Heart Rate:: 90-118 - Hypertension Do any of the following apply?: Yes, Medication - LISINOPRIL, AND BETA ELIJAH Resting Blood Pressure:: 124/72 - Intervention Home Exercise/Activity Goal:: Sitting Time <3 hrs/day - Education Goals:: Warm-up, RPE JAI Scale, S/S, Safe Exercise, Self-Monitoring - Exercise Program Goals Exercise Program Goals: Aerobic Activity >30 min Nutrition - Initial Assessment - Program Goals Nutrition Program Goals: LDL <70. Total Cholesterol <200. HDL >45. Triglycerides <150. HgbA1C <7%. BMI <25 - Stages of Change Stages of Change:: Action - Lipids Total Cholesterol (mg/dL) Goal = less than 200 mg/dL: 60 HDL Cholesterol (mg/dL) Goal = less than 45 mg/dL: 30 LDL Cholesterol (mg/dL) Goal = less than 70 mg/dL: 14 Triglycerides (mg/dL) Goal = less than 150 mg/dL: 81 Lipid Medication: ATORVASTATIN - Diabetes Diabetes:: Yes Insulin: No Non-Insulin Dependent?: Yes - GLIPIZIDE Do you monitor your blood sugar at home?: No - IT'S NEVER OVER THE TOP SO I DONT MONITOR IT EVERYDAY - Weight Management Height: 5 ft 9 in Weight:: 207 lb - Intervention Referral to dietitian:: No - PT STATES THAT HE HAS TALKED TO THEM BEFORE, HELPS BUT I DONT ALWAYS DO IT Referral to Diabetic Clinic:: No Will attend diet classes:: Yes - PROVIDED IN CR - Education Gave educational materials for:: Signs & symptoms of hypoglycemia, Signs & symptoms of hyperglycemia, Relate diabetes to coronary artery disease, Healthy eating Tobacco - Initial Assessment - Program Goals Tobacco Program Goals: Complete smoking cessation. Attend education classes. Improve Knowledge Test score - Stage of Change Stages of Change:: Action - Family Support Do you have family support?: Yes - Tobacco Use Tobacco Use: Cigars - SMOKED ON CIGAR PER DAY FOR 15 YEARS How long ago did you quit using tobacco products?: Greater than or equal to 6 months ago Years Smokin - Intervention Smoking Cessation Referral:: No Individual Education/Counseling:: No Education Schedule Given:: No - Education Gave educational material for:: Tobacco triggers, Coronary artery disease, Risk factors, Sexuality, Medical compliance, Cardiac A&P, Angina signs & symptoms Psychosocial - Initial Assess - Target Goals Target Goals: Assess presence or absence of depression. Using a valid screening tool, maximizes coping skills. Positive support system - Stages of Change Stages of Change:: Action - Psychosocial Test Tool Used:: HANDS Depression Questionnaire - Intervention PS - Interventions: Yes Attend Stress Management Classes, No Referral to Mental Health, No Referral to [facility] Case Management, No Referral to Physician - Education Gave educational materials for:: Coping techniques, Signs & symptoms of depression, Stress management, Relaxation techniques - Patient/Program Goal Preventative Medication(s):: Aspirin, WEI inhibitor, Beta elijah, Statin/lipid - Assistive Devices Assistive Devices:: Walker, Wheelchair - GETS SOB WITH WALKING Patient Health Questionnaire Initial Assessment 1. Little interest or pleasure in doing things: More than half the days 2. Feeling down, depressed, or hopeless: More than half the days 3. Trouble falling or staying asleep, or sleeping too much: More than half the days 4. Feeling tired or having little energy: Nearly every day 5. Poor appetite or overeating: Several days 6. Feeling bad about yourself -- or that you are a failure or have let yourself or your family down: Several days 7. Trouble concentrating on things, such as reading the newspaper or watching television: Not at all 8. Moving or speaking so slowly that other people could have noticed. Or the opposite - being so fidgety or restless that you have been moving around a lot more than usual: Not at all 9. Thoughts that you would be better off , or of hurting yourself in some way: Not at all How difficult have these problems made it for you to do your work, take care of things at home, or get along with other people?: Not difficult at all Total Score: 11 MARCELINA-Q SV Test - Statements CAD is a disease of the arteries in the heart: False Examples of risk factors for heart disease: True Angina is chest pain or discomfort: True The benefits of resistance training include: True Eating more meat and dairy products: False Anti-platelet medications such as aspirin are important: True The only effective way to manage stress: False An exercise warm-up slowly increases heart rate: True Prepared, processed foods usually have high sodium: True Depression is common after a heart attack: True The statin medications lower cholesterol: True To control blood pressure, lower the amount of sodium: True If someone gets chest discomfort during walking: False Transfats are partially hydrogenated vegetable oils: True Sleep apnea that is not treated increases the risk: I Don't Know To control cholesterol, one should become a vegetarian: False Someone knows if he/she is exercising at the right level: I Don't Know Diabetes cannot be prevented with exercise & health eating: False Stress is a large risk for heart attack: True A diet that can help lower blood pressure is rich in: True - Total Score Total Correct Responses: 18 Self-Efficacy Initial Assessment We would like to know how confident you are in doing certain activities. Please select your confidence level for:: Select your confidence level for the following using the scale 1-10 where 1 is not at all confident and 10 is totally confident. Your score is the average of all 6 responses. Fatigue: How confident are you that you can keep the fatigue caused by your disease from interfering with the things you want to do? Select Number: 6 Physical Discomfort or Pain: How confident are you that you can keep the physical discomfort or pain of your disease from interfering with the things you want to do? Select Number: 9 Emotional Distress: How confident are you that you can keep the emotional distress caused by your disease from interfering with the things you want to do? Select Number: 6 Other Symptoms or Health Problems: How confident are you that you can keep other symptoms or health problems from interfering with the things you want to do? Different Tasks and Activities: How confident are you that you can do the different tasks and activities needed to manage your health condition so as to reduce your need to see a doctor? Select Number: 6 Medication: How confident are you that you can do things other than just taking medication to reduce how much your illness affects your everyday life? Select Number: 8 Nutrition Survey - Nutrition Survey Instructions Scoring Instructions: Scoring is as follows: Yes = 1 points. No = 0 point. Patient score that is >/=12 is considered to be at potential nutritional risk and could benefit from a referral to a registered dietitian. - Nutrition Survey Initial Have you lost >10 lbs over the past 2 months without trying?: Yes Are you following a special diet at home for diabetes, low fat, or low salt?: No Are you interested in meeting with a dietitian for help understanding your diet?: No Do you eat less than 3 meals a day?: No Do you eat fatty meats (cardozo, sausage, ribs, etc), fried foods, desserts, large amounts of salad dressings, margarine, butter, or cheese most days?: No Do you have food allergies? [Enter types in comment field]: No Do you eat in restaurants more than 3 times a week?: No Do you season food with salt, seasoning salt, or garlic salt?: No Do you used canned, boxed, frozen meals, or soups, seasoning packets?: No Total Score:: 1
--- NOTE | 2019-03-28 08:36 | PCM.CR.HP2 ---
CR - History & Physical - General Arrival date:: 03/28/19 Arrival time:: 08:51 Date of Referral:: 03/27/19 Date of CR Evaluation:: 03/28/19 Referring Physician: DR. THOMPSON KHAN Primary Diagnosis: CABG, AORTIC VALVE REPLACEMENT - History of Present Cardiac Event Onset Date: Enter Onset Date of cardiac illnesses in Comment field below Coronary Artery Bypass Graft:: Yes - 01/01/2019 Heart valve replacement or repair:: Yes - 01/01/2019 Type of Symptoms:: knOIWN HISTORY OF CORONARY ARTERY DISEASE, INITIALLY PRESENTED TO [facility] FOR HEART CATH AND THE PATIENT WAS TRANSFERRED FOR CORONARY ARTERY BYPASS. Interventions with present event:: HEART CATH. Were there any complications?: DEVELOPED POST OPERATIVE ATRIAL FIBRILLATION - Medications Home Medications: Ambulatory Orders Medication Instructions Recorded traZODone [Desyrel] 100 mg PO QHS 10/30/18 Amiodarone HCl 200 mg PO DAILY 01/15/19 Apixaban [Eliquis] 2.5 mg PO BID 01/15/19 Atorvastatin Calcium 40 mg PO DAILY 01/15/19 Doxepin HCl 100 mg PO QHS 01/15/19 Ferrous Sulfate 325 mg PO 1200,1700 tab 01/16/19 Buspirone HCl 10 mg PO BID 03/07/19 Glipizide [Glipizide ER] 10 mg PO DAILY 03/07/19 Vit A/Vit C/Vit E/Zinc/Copper 1 cap PO DAILY 03/07/19 [Preservision Areds Softgel] furosemide 40 mg tablet 40 mg PO BID #60 tab 03/27/19 lisinopril 10 mg tablet 10 mg PO DAILY #60 tab 03/27/19 metoprolol tartrate 25 mg tablet 50 mg PO BID tab 03/27/19 Vit A/Vit C/Vit E/Zinc/Copper 03/28/19 [Preservision Areds Softgel] - Allergies Allergies/Adverse Reactions: Allergies No Known Allergies Allergy (Verified 03/27/19 08:34) - Sleep Disorder Evaluation Hx of Sleep Apnea: No Do you snore loudly (louder than talking or can be heard through closed doors)?: No Do you often feel tired/ fatigued/ sleepy during daytime?: Yes Has anyone observed you stop breathing during sleep?: No History of Hypertension (for STOP score): Yes STOP Results: Positive Past Medical History - Past Medical Illness Medical History: Past Medical History (Last Reviewed 03/27/19 @ 15:27 by Thompson Khan MD) Secondary pulmonary arterial hypertension (Chronic) I27.21 Acute on chronic diastolic (congestive) heart failure (Chronic) I50.33 Paroxysmal atrial fibrillation (Chronic) I48.0 Essential (primary) hypertension (Chronic) I10 Stenosis of right subclavian artery (Chronic) I77.1 Left bundle branch block (Chronic) I44.7 Non-rheumatic aortic stenosis (Chronic) I35.0 AVR w/ 25 mm Magna Ease Bioprosthetic Valve 01/01/19 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) I25.10 CABG x 2 VILLALBA-LAD, SVG-Distal RCA and AVR w/ 25 mm Magna Ease Bioprosthetic Valve 01/01/19 Hyperlipidemia (Chronic) E78.5 Anxiety and depression F41.9, F32.9 Obesity E66.9 Pleural effusion on left J90 Thyroid nodule E04.1 Near syncope R55 Postoperative atrial fibrillation (Inactive) Onset Date: 01/01/19 I97.89, I48.91 Chronic kidney disease N18.9 Iron deficiency anemia D50.9 Type 2 diabetes mellitus E11.9 - Past Surgical History Surgical History: Past Surgical History (Last Reviewed 03/27/19 @ 15:27 by Thompson Khan MD) H/O aortic valve replacement (Resolved) Onset Date: 01/01/19 Z95.2 AVR w/ 25 mm Magna Ease Bioprosthetic Valve 01/01/19 H/O coronary artery bypass surgery (Resolved) Onset Date: 01/01/19 Z95.1 CABG x 2 VILLALBA-LAD, SVG-Distal RCA and AVR w/ 25 mm Magna Ease Bioprosthetic Valve 01/01/19 History of cataract surgery Z98.49 History of hip replacement Z96.649 History of left heart catheterization Onset Date: 10/31/18 Z98.890 History of open reduction and internal fixation (ORIF) procedure Z98.890 History of thoracentesis Z98.890 left 01/05/19 Surgical History: - - CABG x 2, AVR (01/01/19), right total hip replacement, bilateral cataract surgery. - Family History Summary Family History: Family History (Last Reviewed 03/27/19 @ 15:27 by Thompson Khan MD) Father CVA (cerebral vascular accident) Mother COPD (chronic obstructive pulmonary disease) Social History - Smoking History Smoking Status: Former smoker Hx Smoking Cessation Date: 11/16/2003 Hx Tobacco Use: Yes - Alcohol Use Alcohol Usage: No - Substance Abuse Hx Substance Use: No - Occupation Occupation (List type of work in comments):: Retired - Hobbies, Recreation, Social Activities Hobbies: Reading, Watch TV Recreational Activities: I cannot do any recreational activities at all Social Environment - Status Marital Status: - Current Living Arrangements Living Environment:: Family - LIVES WITH DAUGHTER - Children How many children do you have?: 2 Do any of your children live nearby?: Yes - LIVES WITH DAUGHTER - Safety Do you feel safe in your surroundings?: Yes - Assistance Do you need any assistance at home?: CANE AND WHEELCHAIR Review of Systems - Review of Systems Hints: Right click = Denies (Slash). Left click = Reports ([place]) Review of Present Symptoms: Reports: Shortness of Breath with Exertion, Fatigue. Denies: Shortness of Breath at Rest, PVD, Operative Discomfort, Angina, Wound Healing, Dizziness/Lightheadedness, Heart Arrhythmia/Irregularities, Appetite - Normal, Appetite - Special Diet, Sleep - Normal - Pain Is Patient Pain Free?: Yes Risk Factor Assessment - Vital Signs Temperature: 98.6 F Respiratory Rate: 24 Pulse Ox: 95 Blood Pressure: 124/72 Nailbeds:: PINK - Pulse Pulse Rate: 96 Pulse Rhythm: Regular - Hypertension How long have you been treated?: AT LEAST 20 YEARS On medication(s)?: LISINOPRIL AND METOPROLOL Blood Pressure Sitting - Left Arm: 124/72 - Stress Stress: Recent - Blood Cholesterol/Lipids Total Cholesterol (mg/dL) Goal = less than 200 mg/dL: 60 HDL Cholesterol (mg/dL) Goal = less than 40 mg/dL: 30 LDL Cholesterol (mg/dL) Goal = less than 70 mg/dL: 14 Triglycerides (mg/dL) Goal = less than 150 mg/dL: 81 - Diabetes Diabetic History: Type II Nutrition Referral for Diabetes: No - Obesity Height: 5 ft 9 in Weight:: 207 lb Weight in Pounds: 207.0 lbs Weight Source: Stated by Patient Body Mass Index (BMI): 30.5 Nutritional Referral for Obesity: No - Physical Inactivity Physical Inactivity: None - Risk Stratification Risk Guidelines: Lowest Risk: Risk Factor for Smoking, Risk Factor for Dyslipidemia, Risk Factor for Depression, Moderate Risk: Risk Factor for Diabetes, Risk Factor for Obesity, Risk Factor for Hypertension, Highest Risk: Risk Factor for Sedentary Lifestyle - For Smoking Smoking Risk Guidelines: Smoking Low Risk: None or quit greater than 6 months ago. Smoking Moderate Risk: Smoker or quit 6 months or less ago. Smoking High Risk: Smoker - For Dyslipidemia Dyslipidemia Risk Guidelines: Low Risk: Moderate Risk: High Risk: 15-25% fat 25.1-29% fat >/= 30% fat. <7% sat fat 7-9% sat fat >9% sat fat. <150 mg chol 150-299 mg chol >/= 300 mg chol. LDL <100 LDL 100-129 LDL >/= 130. Chol/HDL ratio <5.0 Chol/HDL ratio 5.0-6.0 Chol/HDL ratio >6.0. Triglycerides <100 Triglycerides 100-149 Triglycerides >/= 150 - For Diabetes Mellitus Diabetes Risk Guidelines: Diabetes Low Risk: HgA1c <6.5% and/or FBG <120. Diabetes Moderate Risk: HgA1c 6.6-7.9% and/or FBG 120-180. Diabetes High Risk: HgA1c >/= 8% and/or FBG >180 - For Obesity/Overweight Obesity/Overweight Risk Guidelines: Obesity Low Risk: BMI <25.0. Obesity Moderate Risk: BMI 25-29.9. Obesity High Risk: BMI >/= 30.0 - For Hypertension Hypertension Risk Guidelines: Hypertension Low Risk: Systolic <120 and Diastolic <80. Hypertension Moderate Risk: Systolic 120-139 and Diastolic 80-89. Hypertension High Risk: Systolic >/= 140 and Diastolic >/= 90 - For Sedentary Lifestyle Sedentary Lifestyle Risk Guidelines: Sedentary Lifestyle Low Risk: >/= 1,500 kcal/week. Sedentary Lifestyle Moderate Risk: 700-1,499 kcal/week. Sedentary Lifestyle High Risk: < 700 kcal/week - For Depression Depression Risk Guidelines: Depression Low Risk: Not clinically depressed. Depression Moderate Risk: Mildly depressed. Depression High Risk: Clinically depressed - Family History Family History: Family History (Last Reviewed 03/27/19 @ 15:27 by Thompson Khan MD) Father CVA (cerebral vascular accident) Mother COPD (chronic obstructive pulmonary disease) Motivation - Motivation to Participate On a scale of 1 to 10, how prepared are you to commit to attending program?: 10 What do you see as barriers to successfully being able to complete the program?: TRANSPERTATION What do you see as the benefits of succesfully completing the program? In other words, what do you hope to get out of participating in the program?: BE ABLE TO DO THINGS AGAIN Are there issues you are dealing with that will interfere with completing the program?: NONE Do you have a spouse or signficant other, family or friends who will help support you to complete the program?: SIBLINGS AND DAUGHTER
[2019-03-28 09:36] VITALS: BP 124/72
[2019-03-28 10:07] VITALS: BP 124/72; PULSE 96; RESP 24; TEMP 37; O2SAT 95; BMI 30.5
== END ==
PROVIDERS: Family Provider Internal Medicine; PCP Internal Medicine; Referring Provider Internal Medicine Cardiovascular Disease; Visit Provider Internal Medicine Cardiovascular Disease
DX: I25.10 Atherosclerotic heart disease of native coronary artery without angina pectoris (principal)

== ENCOUNTER 2019-04-10 10:05 | Emergency (ER) | payer MEDICARE, SELFPAY ==
[2019-03-28 10:07] VITALS: BMI 30.5
[2019-04-10 10:05] VITALS: BP 119/72; PULSE 86; RESP 16; TEMP 36.5; O2SAT 97; BMI 28.5
--- NOTE | 2019-04-10 10:19 | ED.VISSUMM ---
- ER Visit Summary Date of Service: 04/10/19 Chief Complaint: Wound, right ankle History of Present Illness: The patient is a 83 M who has a wound to the right ankle. He states that it has been there for about 8 to 10 days. He does not remember any specific major trauma but he may have scraped it on something at his house. Started seeping fluid yesterday and a family member checked it today and it was red. Urgent care sent him here. He denies any fevers. No significant pain. He has no other wounds. He took nothing for it at home. Physical Examination: Vital signs reviewed. Right ankle exam reveals a wound on the right lateral malleolus. It is mildly swollen with surrounding erythema. There is a mild purulent drainage. There is no abscess seen. Test Results: Right ankle x-ray reveals nothing acute Emergency Department Course and Treatment: The patient's x-ray has no signs of osteomyelitis. I will give him Bactrim and Keflex for home. I will give him wound center follow-up. Vital signs are unremarkable therefore I do not feel he needs any blood work Treatment Plan: [] Disposition: Discharge Impression: Infected wound, right ankle This note was generated with [employer] dictation software. It may contain incorrect words, spelling, and punctuation that were not noted in review of the chart prior to signing ED Disposition - Plan for ED Patient: Referrals: Jeremi Morel MD [Primary Care Provider] -
--- NOTE | 2019-04-10 10:30 | RAD_ITS ---
STUDY: X-RAY - RIGHT ANKLE REASON FOR EXAM: Male, 83 years old. Pain. No known injury. TECHNIQUE: 3 view(s) of the ankle. COMPARISON: None. FINDINGS: Normal visualized distal tibia and fibula. The patient is status post open reduction and internal fixation of the distal ulna. No acute fracture is seen. Normal tibiotalar articulation and ankle mortise. Small plantar spur. Talar neck beak. The visualized subtalar, talonavicular, calcaneocuboid and tarsal articulations are normal. The soft tissue structures are unremarkable. RAD/Ankle min 3 Views IMPRESSION: No acute abnormality is seen. Electronically Signed: Elpidio Cuevas, at 10:45 EDT , Service support ,
--- NOTE | 2019-04-10 10:54 | ED.DEP ---
ED Disposition - Plan for ED Patient: Disposition: Home or Assisted Living Instructions: ED Wound Care Prescriptions: Cephalexin [Keflex] 500 mg PO Q6 #28 cap Smz/Tmp Ds [Bactrim Ds] 1 tab PO BID #14 tab Referrals: Jeremi Morel MD [Primary Care Provider] - Wound Health [Outside]
[2019-04-10 11:11] VITALS: BP 123/73; PULSE 89; RESP 17; O2SAT 99
== END 2019-04-10 11:20 | disposition home or self-care (01) ==
PROVIDERS: Emergency Provider Emergency Medicine; Family Provider Internal Medicine; PCP Internal Medicine
DX: S91.001A Unspecified open wound, right ankle, initial encounter (principal); X58.XXXA Exposure to other specified factors, initial encounter; Y93.9 Activity, unspecified; Y92.9 Unspecified place or not applicable; Y99.9 Unspecified external cause status; Z79.01 Long term (current) use of anticoagulants; Z79.84 Long term (current) use of oral hypoglycemic drugs; Z79.899 Other long term (current) drug therapy
CPT/HCPCS: 73610; 99282

== ENCOUNTER 2019-04-12 09:15 | Outpatient (RCR) | payer MEDICARE, SELFPAY ==
[2019-03-28 10:07] VITALS: BMI 30.5
== END 2019-04-12 23:59 ==
LOC: CR 09:15
PROVIDERS: Family Provider Internal Medicine; PCP Internal Medicine; Referring Provider Internal Medicine Cardiovascular Disease; Visit Provider Internal Medicine Cardiovascular Disease
DX: I27.21 Secondary pulmonary arterial hypertension (principal); I11.0 Hypertensive heart disease with heart failure; I50.33 Acute on chronic diastolic (congestive) heart failure; I48.0 Paroxysmal atrial fibrillation; I77.1 Stricture of artery; I44.7 Left bundle-branch block, unspecified; I35.0 Nonrheumatic aortic (valve) stenosis; I25.10 Atherosclerotic heart disease of native coronary artery without angina pectoris; E78.5 Hyperlipidemia, unspecified; Z95.2 Presence of prosthetic heart valve; Z95.1 Presence of aortocoronary bypass graft
CPT/HCPCS: 93798

== ENCOUNTER → 2019-04-15 08:02 | Outpatient (CLI) | payer MEDICARE, SELFPAY ==
[2019-04-15 08:02] VITALS: BMI 28.5
[2019-04-15 08:55] LABS: Absolute Neutrophil Count 4.4 X10^3/uL (2.0-7.7); Basophil# 0.02 X10^3/uL; Basophil% 0.3 % (0-1); Eosinophil# 0.12 X10^3/uL; Hematocrit 34.6 % (40-54); Hemoglobin 10.6 g/dl (13.0-16.5); Lymphocyte % 11.9 % (19-41); Mean Corp Hgb Conc 30.6 g/gl (32-36); Mean Corpuscular Hgb 21.8 pg (27.0-32.0); Mean Platelet Vol. 9.1 fl (6.2-12.0); Monocyte# 0.62 X10^3/uL; Monocyte% 10.5 % (0-10); Neutrophil # 4.42 X10^3/uL (2.7-7.7); Platelet Count 175 K/mm3 (150-450); RBC Distribution Width CV 19.5 % (11.6-14.6); RBC Distribution Width SD 50.1 fl (35.1-43.9); Red Blood Count 4.87 M/mm3 (4.6-6.2); White Blood Count 5.9 K/mm3 (4.4-11.0)
[2019-04-15 09:00] LABS: Differential Indicated SCAN CRITERIA MET; POSITIVE COUNT NO; POSITIVE DIFFERENTIAL NO; POSITIVE MORPHOLOGY YES
[2019-04-15 09:11] LABS: Anion Gap 10 (5-15); BUN 17 mg/dL (7-18); BUN/Creat Ratio 13.1 RATIO (10-20); Calcium,Total 8.7 mg/dL (8.5-10.1); Chloride 95 mmol/L (98-107); EST Glomerular Filtration Rate 56 mL/min (>60); Est Glom Filt Rate - Afr Amer 68 mL/min (>60); Glucose 236 mg/dL (74-106); Sodium Level 135 mmol/L (136-145); Thyroid Stim Hormone (TSH) 1.67 uIU/mL (0.358-3.74)
[2019-04-15 09:31] LABS: BNP,B-Type NATRIURETIC PEPTIDE 255.7 pg/mL (0-100)
== END ==
PROVIDERS: Family Provider Internal Medicine; PCP Internal Medicine; Referring Provider Physician Assistant Medical; Visit Provider Physician Assistant Medical
DX: I11.0 Hypertensive heart disease with heart failure (principal); I50.33 Acute on chronic diastolic (congestive) heart failure; I27.21 Secondary pulmonary arterial hypertension; E78.5 Hyperlipidemia, unspecified; I25.10 Atherosclerotic heart disease of native coronary artery without angina pectoris; I35.0 Nonrheumatic aortic (valve) stenosis; I44.7 Left bundle-branch block, unspecified; I48.0 Paroxysmal atrial fibrillation; I77.1 Stricture of artery; Z95.1 Presence of aortocoronary bypass graft; Z95.2 Presence of prosthetic heart valve
CPT/HCPCS: 36415; 80048; 83880; 84443; 85025

== ENCOUNTER 2019-04-24 05:54 | Day surgery (SDC) | payer MEDICARE, SELFPAY ==
[2019-04-17 10:51] VITALS: BMI 15.6
[2019-04-24 06:12] VITALS: BP 111/71; PULSE 98; RESP 18; TEMP 36.4; O2SAT 96; BMI 27.6
[2019-04-24 06:35] LABS: Bedside Glucose 114 mg/dL (70-110)
[2019-04-24] MEDS: Cefazolin 2 GM in 0.9% Normal Saline 100 ML IV (07:24)
[2019-04-24 08:26] VITALS: BP 111/70; BP 90/70; PULSE 75; RESP 16; TEMP 37.1; O2SAT 99
[2019-04-24 08:30] VITALS: BP 111/70; BP 87/69; PULSE 74; RESP 16; O2SAT 95
--- NOTE | 2019-04-24 08:42 | OP.PCM_ITS ---
Report of Operation Date of Procedure: 04/24/19 Pre-Operative Diagnosis: Infected painful hardware left ankle Post-Operative Diagnosis: same Surgery/Procedure Performed:: Removal of harware, irrigation and debridement right ankle Description of Surgical Findings:: Procedure: Removal of hardware, I & D, Application of wound vac right ankle Pre-op dx: Infected, painful and migrated hardware right ankle Post op dx: same with skin defect distally Surgeon: Dr. Diop Anesthesia: General LMA Drains: none Specimen: none Complications: none EBL: less than 20 cc Procedure: With appropriate informed consent, the patient was taken to OR 6. After the induction of general anesthesia and pre-op antibiotics, a well padded tourniquet was placed around the right thigh. Time out was taken. The RLE was prepared and draped in a sterile fashion. The right leg was elevated and the tourniquet was inflated at 250 mm HG. Two screws protruded from the skin and were removed with a 3.5 mm screw route sales delivery drivers supervisor. A longitudinal incision was made with a 15 blade scalpel over the lateral fibula and dissection was carried down to the plate. All screws and then the plate were removed. Sharp and rongeur debridement of infected tissue and the bone around the screw holes was undertaken. No osteomyelitis was appreciated. After copious saline irrigation, the wound was closed with interrupted suture of 3-0 nylon. The skin over the most distal aspect of the wound was not sufficient for closure over the bone, Therefore a sterile saline dressing was applied and the wound care nurse (Anika Robin) was contacted to apply a wound vacuum in PACU. The wound was dressed under sterile conditions. The tourniquet was released and the patient was extubated and sent to PACU in stable condition. Type of Anesthesia:: General Anesthesiologist: Burke Sanders - Admit VTE Documentation VTE Present on Admission: No VTE Mechan Device Prophylaxis: SCD's VTE Pharm Prophylaxis ordered?: No Reason prophylaxis not ordered:: Treatment Not Indicated
[2019-04-24 08:45] VITALS: BP 108/72; BP 111/70; PULSE 73; RESP 16; O2SAT 99
[2019-04-24 08:46] LABS: Bedside Glucose 98 mg/dL (70-110)
[2019-04-24 09:00] VITALS: BP 111/70; BP 125/81; PULSE 82; RESP 16; TEMP 37; O2SAT 98
--- NOTE | 2019-04-24 09:13 | NURSING ---
Was called to place a VAC Via in PACU. Pt is s/p removal of hardware, I&D right ankle. removed dressing. there was a moderate amount of sanguineous drainage noted. small area of oozing noted that was easily controlled with some mild pressure. incision to the right lateral ankle is well approximated except for the most distal portion of the incision. this area measures approx 4cm x 0.4cm x 0.3cm. wound and periwound cleansed with NS. pat dry. placed drape to all outer wound edges. placed Adaptic along the incision and the open area and placed 1 piece of black foam. Good seal noted at 125mmHg low continuous suction. pt tolerated well. placed ABD pad under the VAC tubing prior to applying a light WEI wrap. talked with daughter Jigna Fair and reviewed alarms and educated on the VAC Via. calling to arrange follow up at [facility] prior to patient being discharged today. will hopefully have appointment made and let daughter know the date and time. No one answered at the wound center after calling twice. did leave a message for call back.
--- NOTE | 2019-04-24 09:36 | NURSING ---
Walked over to the Wound Center. they are closed at this time. discussed with daughter who will try to call later today or tomorrow to try to make an appointment for follow up. there is a small amount of bloody drainage noted in the canister. gave daughter this nurse's hospital number if issues arise. patient and daughter deny further questions or concerns.
[2019-04-24 10:55] VITALS: BP 111/70
== END 2019-04-24 11:05 | disposition home or self-care (01) ==
LOC: SDC 05:55 → AC 05:55
PROVIDERS: Family Provider Internal Medicine; PCP Internal Medicine; Referring Provider Orthopaedic Surgery; Visit Provider Orthopaedic Surgery
PROC: (CPT 20680; principal; 2019-04-24 07:15)
DX: T84.84XA Pain due to internal orthopedic prosthetic devices, implants and grafts, initial encounter (principal); Y83.1 Surgical operation with implant of artificial internal device as the cause of abnormal reaction of the patient, or of later complication, without mention of misadventure at the time of the procedure; M25.572 Pain in left ankle and joints of left foot; E11.22 Type 2 diabetes mellitus with diabetic chronic kidney disease; I12.9 Hypertensive chronic kidney disease with stage 1 through stage 4 chronic kidney disease, or unspecified chronic kidney disease; N18.9 Chronic kidney disease, unspecified; I25.10 Atherosclerotic heart disease of native coronary artery without angina pectoris; E78.00 Pure hypercholesterolemia, unspecified; F32.9 Major depressive disorder, single episode, unspecified; F41.9 Anxiety disorder, unspecified; E66.3 Overweight; Z68.29 Body mass index [BMI] 29.0-29.9, adult; Z79.899 Other long term (current) drug therapy; Z87.891 Personal history of nicotine dependence
CPT/HCPCS: 01392; 20680; 82962; J7120; J2405

== ENCOUNTER → 2019-04-29 10:04 | Outpatient (CLI) | payer MEDICARE, SELFPAY ==
[2019-04-24 06:12] VITALS: BMI 27.6
[2019-04-29 11:19] LABS: Anion Gap 9 (5-15); BUN 21 mg/dL (7-18); BUN/Creat Ratio 17.9 RATIO (10-20); Calcium,Total 9.2 mg/dL (8.5-10.1); Chloride 93 mmol/L (98-107); Creatinine, Serum 1.17 mg/dL (0.70-1.30); EST Glomerular Filtration Rate 63 mL/min (>60); Est Glom Filt Rate - Afr Amer 77 mL/min (>60); Glucose 212 mg/dL (74-106); Sodium Level 135 mmol/L (136-145)
== END ==
PROVIDERS: Family Provider Internal Medicine; PCP Internal Medicine; Referring Provider Internal Medicine Cardiovascular Disease; Visit Provider Internal Medicine Cardiovascular Disease
DX: I50.33 Acute on chronic diastolic (congestive) heart failure (principal)
CPT/HCPCS: 36415; 80048

== ENCOUNTER 2019-05-08 09:15 | Outpatient (RCR) | payer MEDICARE, SELFPAY ==
[2019-04-13 01:24] VITALS: BMI 30.5
--- NOTE | 2019-04-26 08:46 | CR.ITP_ITS ---
Exercise - 30-day Assessment - Visit Date of Eval: 04/26/19 Session #:: 9 - missed sesion due to other medical issue and minor ankle surgery to remove hardware from previous fracture repair - Stages of Change Stages of Change:: Action - Physician Prescribed Exercise Modalities: Biodyne, NuStep, SciFit Frequency (days/week): 3 Duration (Minutes):: 30-445 Intensity: 60-80% age predicted maximum heart rate reserve METs - Progression: 0.5-1.0 MET, RPE 11-14 WEEK: 2.5 Target Heart Rate:: 90-118 w/max HR 102 - Hypertension Resting Blood Pressure:: 98/62 Peak Exercise Blood Pressure:: 132/72 Medication Changes:: Yes - 04/12 lasix increased to 60mg BID, Metorpolol Tartrate to 50mg BID - Intervention Home Exercise/Activity Goal:: Moderate Exercise 30 min/day x 5 days/wk - Education Goals:: Warm-up, RPE JAI Scale, S/S, Safe Exercise, Self-Monitoring - Exercise Program Goals Exercise Program Goals: Aerobic Activity >30 min Nutrition - Initial Assessment - Program Goals Nutrition Program Goals: LDL <70. Total Cholesterol <200. HDL >45. Triglycerides <150. HgbA1C <7%. BMI <25 - Diabetes Do you monitor your blood sugar at home?: No - IT'S NEVER OVER THE TOP SO I DONT MONITOR IT EVERYDAY Nutrition - 30-Day Assessment - Program Goals Nutrition Program Goals: LDL <70. Total Cholesterol <200. HDL >45. T riglycerides <150. HgbA1C <7%. BMI <25 - Visit Date of Eval: 04/26/19 - Stages of Change Stages of Change:: Action - Lipids Has the patient seen the dietitian?: No - Diabetes Diabetes:: No - Weight Management Weight:: 196 lb 8 oz - Intervention Referral to dietitian:: No Referral to Diabetic Clinic:: No Will attend diet classes:: Yes - Education Attended class for:: Healthy eating Tobacco - 30-Day Assessment - Program Goals Tobacco Program Goals: Complete smoking cessation. Attend education classes. Improve Knowledge Test score - Stage of Change Stages of Change:: Action - Learning Barriers Learning Barriers: Participates in education - Family Support Do you have family support?: Yes - Tobacco Use Tobacco Use: Non-smoker Do you use smokeless tobacco?: No - Intervention Education Schedule Given:: Yes - Education Attended class for:: Coronary artery disease, Risk factors, Sexuality, Medical compliance, Cardiac A&P, Angina signs & symptoms Psychosocial - 30-Day Assess - Target Goals Target Goals: Assess presence or absence of depression. Using a valid screening tool, maximizes coping skills. Positive support system - Stages of Change Stages of Change:: Action - Psychosocial Test Tool Used:: HANDS Depression Questionnaire - Intervention PS - Interventions: Yes Attend Stress Management Classes, No Referral to Mental Health, No Referral to [facility] Case Management, No Referral to Physician, No Uses Stress Management Skills - Education Attended classes for:: Coping techniques, Signs & symptoms of depression, Stress management, Relaxation techniques - Patient/Program Goal Preventative Medication(s):: Aspirin, Clopidogrel, Beta elijah, Statin/lipid - Assistive Devices Assistive Devices:: Cane Fall Risk Assessed:: Yes Patient Health Questionnaire 30-Day Re-eval Assessment 1. Little interest or pleasure in doing things: Several days 2. Feeling down, depressed, or hopeless: Several days 3. Trouble falling or staying asleep, or sleeping too much: More than half the days 4. Feeling tired or having little energy: Nearly every day 5. Poor appetite or overeating: Several days 6. Feeling bad about yourself -- or that you are a failure or have let yourself or your family down: Several days 7. Trouble concentrating on things, such as reading the newspaper or watching television: Not at all 8. Moving or speaking so slowly that other people could have noticed. Or the opposite - being so fidgety or restless that you have been moving around a lot more than usual: Not at all 9. Thoughts that you would be better off , or of hurting yourself in some way: Not at all How difficult have these problems made it for you to do your work, take care of things at home, or get along with other people?: Somewhat difficult Total Score: 9 Self-Efficacy 30-Day Re-eval Assessment We would like to know how confident you are in doing certain activities. Please select your confidence level for:: Select your confidence level for the following using the scale 1-10 where 1 is not at all confident and 10 is totally confident. Your score is the average of all 6 responses. Fatigue: How confident are you that you can keep the fatigue caused by your disease from interfering with the things you want to do? Select Number: 6 Physical Discomfort or Pain: How confident are you that you can keep the physical discomfort or pain of your disease from interfering with the things you want to do? Select Number: 9 Emotional Distress: How confident are you that you can keep the emotional distress caused by your disease from interfering with the things you want to do? Select Number: 8 Other Symptoms or Health Problems: How confident are you that you can keep other symptoms or health problems from interfering with the things you want to do? Select Number: 8 Different Tasks and Activities: How confident are you that you can do the different tasks and activities needed to manage your health condition so as to reduce your need to see a doctor? Select Number: 9 Medication: How confident are you that you can do things other than just taking medication to reduce how much your illness affects your everyday life? Select Number: 7 Total Score:: 7
[2019-04-26 08:48] VITALS: BP 132/72; BP 98/62
--- NOTE | 2019-05-08 13:24 | EKG12_ITS ---
Test Reason : RHYTHM CHANGE Blood Pressure : / mmHG Vent. Rate : 078 BPM Atrial Rate : 077 BPM P-R Int : 000 ms QRS Dur : 150 ms QT Int : 454 ms P-R-T Axes : 000 088 -82 degrees QTc Int : 517 ms Atrial fibrillation Left bundle branch block Abnormal ECG Confirmed by MARIETTA FULLER ([id number]), loan expeditor AJ MURPHY ([id number]) on 05/14/2019 11:50:19 AM Referred By: Thompson Diggs Confirmed By:MARIETTA FULLER
== END 2019-05-12 23:59 ==
LOC: CR 09:15
PROVIDERS: Family Provider Internal Medicine; PCP Internal Medicine; Referring Provider Internal Medicine Cardiovascular Disease; Visit Provider Internal Medicine Cardiovascular Disease
DX: I27.21 Secondary pulmonary arterial hypertension (principal); I11.0 Hypertensive heart disease with heart failure; I50.33 Acute on chronic diastolic (congestive) heart failure; I48.0 Paroxysmal atrial fibrillation; I77.1 Stricture of artery; I44.7 Left bundle-branch block, unspecified; I35.0 Nonrheumatic aortic (valve) stenosis; I25.10 Atherosclerotic heart disease of native coronary artery without angina pectoris; E78.5 Hyperlipidemia, unspecified; Z95.2 Presence of prosthetic heart valve; Z95.1 Presence of aortocoronary bypass graft
CPT/HCPCS: 93005; 93798

== ENCOUNTER 2019-05-08 09:45 | Outpatient (RCR) | payer MEDICARE, SELFPAY ==
[2019-04-16 07:47] VITALS: BMI 28.8
[2019-04-17 10:51] VITALS: BP 100/61; PULSE 98; RESP 18; TEMP 36.5; BMI 15.6
--- NOTE | 2019-04-17 12:25 | PCM.WC.HP ---
(1) Exposed orthopaedic hardware Status: Acute Current Visit: Yes Code(s): T84.498A - Other mechanical complication of other internal orthopedic devices, implants and grafts, initial encounter (2) Ulcer of right ankle Status: Acute Current Visit: Yes Code(s): L97.319 - Non-pressure chronic ulcer of right ankle with unspecified severity History of Present Illness Chief Complaint: Right ankle ulcer secondary to exposed hardware. History of Wound: Mr. Lucio is an 83-year-old who was referred to the wound center due to right ankle ulcer. Symptoms started 2 weeks ago with redness and swelling noted around the area. Was seen at the emergency room, imaging done with no significant concern. He was started on antibiotics due to mild purulent drainage noted and patient was subsequently referred here. Had right ankle surgery in 1992 and has been doing well since then. Denies any significant pain. Feels well otherwise. 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 Allergies/Adverse Reactions: Allergies No Known Allergies Allergy (Verified 04/17/19 11:14) Home Medications: Ambulatory Orders Medication Instructions Recorded traZODone [Desyrel] 100 mg PO QHS 10/30/18 Amiodarone HCl 200 mg PO DAILY 01/15/19 Apixaban [Eliquis] 2.5 mg PO BID 01/15/19 Atorvastatin Calcium 40 mg PO DAILY 01/15/19 Doxepin HCl 100 mg PO QHS 01/15/19 Ferrous Sulfate 325 mg PO 1200,1700 tab 01/16/19 Buspirone HCl 10 mg PO BID 03/07/19 Glipizide [Glipizide ER] 10 mg PO DAILY 03/07/19 Vit A/Vit C/Vit E/Zinc/Copper 1 cap PO BID 03/07/19 [Preservision Areds Softgel] lisinopril 10 mg tablet 10 mg PO DAILY #60 tab 03/27/19 metoprolol tartrate 25 mg tablet 50 mg PO BID tab 03/27/19 Cephalexin [Keflex] 500 mg PO Q6 #28 cap 04/10/19 Smz/Tmp Ds [Bactrim Ds] 1 tab PO BID #14 tab 04/10/19 furosemide 40 mg tablet 60 mg PO BID #1 tab 04/15/19 spironolactone 25 mg tablet 25 mg PO DAILY #60 tab 04/16/19 - Family History Maternal Family History: Family History (Last Reviewed 04/16/19 @ 10:48 by Thompson Diggs MD) Father CVA (cerebral vascular accident) Mother COPD (chronic obstructive pulmonary disease) - - Patient with a maternal family history of hypertension as well as chronic COPD with underlying history of tobacco use. Paternal Family History: Family History (Last Reviewed 04/16/19 @ 10:48 by Thompson Diggs MD) Father CVA (cerebral vascular accident) Mother COPD (chronic obstructive pulmonary disease) - - Patient with a paternal family history of hypertension as well as history of aneurysm. Smoking Status: Former smoker Review of Systems Constitutional: Denies: Anorexia, Chills Eyes: Denies: Pain, Redness HEENT: Denies: Difficulty Swallowing Cardiovascular: Denies: Chest Pain, Chest Tightness Respiratory: Denies: Cough, Hemoptysis Gastrointestinal: Denies: Abdominal Pain, Hematemesis, Vomiting Skin: Denies: Jaundice - Physical Exam Vital Signs Temp Pulse Resp BP 97.7 F L 98 18 100/61 04/17/19 10:51 04/17/19 10:51 04/17/19 10:51 04/17/19 10:51 General: Alert, Oriented x3, Cooperative, No apparent distress HEENT: Atraumatic, Normocephalic Oral: Moist Mucosa Neck: Supple Lungs: Normal air movement Abdomen: Non Tender Extremities: No cyanosis, Edema Skin: Ulcer/ Wound Wound Measurements and Assessment WC - Nurse 1 - General Ulcer Measurement Start: 04/17/19 10:31 Freq: Status: Active Protocol: Activity Type Activity Date Activity User E-Sign Co-Sign Detail Recorded Client Recorded Date Recorded By Document 04/17/19 10:51 DL [id number] 04/17/19 11:10 DL 04/17/19 10:51 Wound Center Nurse 1 [Ulcer Assessment] #1 R Lat Ankle -Current Size (cm) - Length 1.5 -Current Size (cm) - Width 1 -Current Size (cm) - Depth 0.1 -Total Square Cm 1.5 -Photo Taken Yes -Exudate Amt Small -Exudate Type Serosanguineous -Wound Margin Distinct, Outline Attached -Granulation Amt None Present (0 %) -Necrosis Amt Small (1-33%) -Necrotic Tissue Type Adherent Slough -Texture (Martha-wound Skin Appearance) Localized Edema Scarring -Moisture (Martha-wound Skin Appearance Dry/Scaly ) -Color (Martha-wound Skin Appearance) Erythema -Temperature (Martha-wound Skin No Abnormality Appearance) (Pt Warm) -Tenderness on Palpation (Martha-wound No Skin Appearance) -Ulcer Cleansing Wound Cleanser -Foul Odor after Cleansing No -Anesthetic Used 5% Lidocaine Gel [Edema Assessment] -Right Calf (cm) 37.5 -Right Ankle (cm) 20 WC - Nurse 2 - General Ulcer CM Notes Start: 04/17/19 10:31 Freq: Status: Active Protocol: Activity Type Activity Date Activity User E-Sign Co-Sign Detail Recorded Client Recorded Date Recorded By Document 04/17/19 11:32 MW [id number] 04/17/19 11:34 MW 04/17/19 11:32 Wound Center Nurse 2 [Procedure/Treatment] #1 R Lat Ankle -Time 11:32 -Correct Patient Yes -Correct Side, Site, Position Yes -Correct Procedure Yes -Procedure Performed No -Wound/Ulcer Outcome Not Healed -Ulcer Cleansing Rinsed/ Irrigated with Saline -Foul Odor after Cleansing No -Bioengineered Tissue No -Bleeding Controlled with NA -Offloading No -Treatment Response Procedure Tolerated Well [See Physician Procedure note for Specifics] Pain Scale: 0-10 Numeric [Pain] -Is Patient Pain Free? Yes Musculoskeletal: No Muscle Wasting Neurological: Cranial nerves II-XII grossly intact Psych/Mental Status: Normal Affect Debridement Note Post-Debridement Measurements/Treatment WC - Nurse 2 - General Ulcer CM Notes Start: 04/17/19 10:31 Freq: Status: Active Protocol: Activity Type Activity Date Activity User E-Sign Co-Sign Detail Recorded Client Recorded Date Recorded By Document 04/17/19 11:32 MW [id number] 04/17/19 11:34 MW 04/17/19 11:32 Wound Center Nurse 2 #1 R Lat Ankle -Time 11:32 -Correct Patient Yes -Correct Side, Site, Position Yes -Correct Procedure Yes -Procedure Performed No -Wound/Ulcer Outcome Not Healed -Ulcer Cleansing Rinsed/ Irrigated with Saline -Foul Odor after Cleansing No -Bioengineered Tissue No -Bleeding Controlled with NA -Offloading No -Treatment Response Procedure Tolerated Well Pain Scale: 0-10 Numeric Is Patient Pain Free? Yes No debridement was completed today Assessment/Plan Active Problems (Last Reviewed 04/16/19 @ 10:48 by Thompson Diggs MD) Exposed orthopaedic hardware (Acute) Ulcer of right ankle (Acute) Assessment: Same as above. Plan: 2 areas of exposed hardware noted over the right lateral malleolus. Surrounding swelling and erythema with some mild drainage also appreciated. Nontender. No debridement was completed today. Advised to follow-up with his orthopedic surgeon/receiving coordinator as soon as possible. Currently follows up at [facility]. Complete antibiotic regimen. Elevate lower extremities when seated in bed. Increased protein intake also recommended. Advised to call with any questions or concerns. May follow-up after orthopedic review however, anticipate that he might need surgical intervention. This note was generated with [employer] dictation software. It may contain incorrect words, spelling, and punctuation that were not noted in checking the note before signing.
--- NOTE | 2019-04-17 12:29 | HP.PCM_ITS ---
(1) Exposed orthopaedic hardware Status: Acute Current Visit: Yes Code(s): T84.498A - Other mechanical complication of other internal orthopedic devices, implants and grafts, initial encounter (2) Ulcer of right ankle Status: Acute Current Visit: Yes Code(s): L97.319 - Non-pressure chronic ulcer of right ankle with unspecified severity History of Present Illness Chief Complaint: Right ankle ulcer secondary to exposed hardware. History of Wound: Mr. Lucio is an 83-year-old who was referred to the wound center due to right ankle ulcer. Symptoms started 2 weeks ago with redness and swelling noted around the area. Was seen at the emergency room, imaging done with no significant concern. He was started on antibiotics due to mild purulent drainage noted and patient was subsequently referred here. Had right ankle surgery in 1992 and has been doing well since then. Denies any significant pain. Feels well otherwise. Past Medical History Past Medical History: Chronic Problems (Last Reviewed 04/16/19 @ 10:48 by Thompson Diggs MD) Secondary pulmonary arterial hypertension (Chronic) Acute on chronic diastolic (congestive) heart failure (Chronic) Paroxysmal atrial fibrillation (Chronic) Essential (primary) hypertension (Chronic) Stenosis of right subclavian artery (Chronic) Left bundle branch block (Chronic) Non-rheumatic aortic stenosis (Chronic) AVR w/ 25 mm Magna Ease Bioprosthetic Valve 01/01/19 Atherosclerosis of coronary artery of [place] heart without angina pectoris (Chronic) CABG x 2 VILLALBA-LAD, SVG-Distal RCA and AVR w/ 25 mm Magna Ease Bioprosthetic Valve 01/01/19 Hyperlipidemia (Chronic) Surgical History: - - CABG x 2, AVR (01/01/19), right total hip replacement, bilateral cataract surgery. Allergies/Adverse Reactions: Allergies No Known Allergies Allergy (Verified 04/17/19 11:14) Home Medications: Ambulatory Orders Medication Instructions Recorded traZODone [Desyrel] 100 mg PO QHS 10/30/18 Amiodarone HCl 200 mg PO DAILY 01/15/19 Apixaban [Eliquis] 2.5 mg PO BID 01/15/19 Atorvastatin Calcium 40 mg PO DAILY 01/15/19 Doxepin HCl 100 mg PO QHS 01/15/19 Ferrous Sulfate 325 mg PO 1200,1700 tab 01/16/19 Buspirone HCl 10 mg PO BID 03/07/19 Glipizide [Glipizide ER] 10 mg PO DAILY 03/07/19 Vit A/Vit C/Vit E/Zinc/Copper 1 cap PO BID 03/07/19 [Preservision Areds Softgel] lisinopril 10 mg tablet 10 mg PO DAILY #60 tab 03/27/19 metoprolol tartrate 25 mg tablet 50 mg PO BID tab 03/27/19 Cephalexin [Keflex] 500 mg PO Q6 #28 cap 04/10/19 Smz/Tmp Ds [Bactrim Ds] 1 tab PO BID #14 tab 04/10/19 furosemide 40 mg tablet 60 mg PO BID #1 tab 04/15/19 spironolactone 25 mg tablet 25 mg PO DAILY #60 tab 04/16/19 - Family History Maternal Family History: Family History (Last Reviewed 04/16/19 @ 10:48 by Thompson Diggs MD) Father CVA (cerebral vascular accident) Mother COPD (chronic obstructive pulmonary disease) - - Patient with a maternal family history of hypertension as well as chronic COPD with underlying history of tobacco use. Paternal Family History: Family History (Last Reviewed 04/16/19 @ 10:48 by Thompson Diggs MD) Father CVA (cerebral vascular accident) Mother COPD (chronic obstructive pulmonary disease) - - Patient with a paternal family history of hypertension as well as history of aneurysm. Smoking Status: Former smoker Review of Systems Constitutional: Denies: Anorexia, Chills Eyes: Denies: Pain, Redness HEENT: Denies: Difficulty Swallowing Cardiovascular: Denies: Chest Pain, Chest Tightness Respiratory: Denies: Cough, Hemoptysis Gastrointestinal: Denies: Abdominal Pain, Hematemesis, Vomiting Skin: Denies: Jaundice - Physical Exam Vital Signs Temp Pulse Resp BP 97.7 F L 98 18 100/61 04/17/19 10:51 04/17/19 10:51 04/17/19 10:51 04/17/19 10:51 General: Alert, Oriented x3, Cooperative, No apparent distress HEENT: Atraumatic, Normocephalic Oral: Moist Mucosa Neck: Supple Lungs: Normal air movement Abdomen: Non Tender Extremities: No cyanosis, Edema Skin: Ulcer/ Wound Wound Measurements and Assessment WC - Nurse 1 - General Ulcer Measurement Start: 04/17/19 10:31 Freq: Status: Active Protocol: Activity Type Activity Date Activity User E-Sign Co-Sign Detail Recorded Client Recorded Date Recorded By Document 04/17/19 10:51 DL [id number] 04/17/19 11:10 DL 04/17/19 10:51 Wound Center Nurse 1 [Ulcer Assessment] #1 R Lat Ankle -Current Size (cm) - Length 1.5 -Current Size (cm) - Width 1 -Current Size (cm) - Depth 0.1 -Total Square Cm 1.5 -Photo Taken Yes -Exudate Amt Small -Exudate Type Serosanguineous -Wound Margin Distinct, Outline Attached -Granulation Amt None Present (0 %) -Necrosis Amt Small (1-33%) -Necrotic Tissue Type Adherent Slough -Texture (Martha-wound Skin Appearance) Localized Edema Scarring -Moisture (Martha-wound Skin Appearance Dry/Scaly ) -Color (Martha-wound Skin Appearance) Erythema -Temperature (Martha-wound Skin No Abnormality Appearance) (Pt Warm) -Tenderness on Palpation (Martha-wound No Skin Appearance) -Ulcer Cleansing Wound Cleanser -Foul Odor after Cleansing No -Anesthetic Used 5% Lidocaine Gel [Edema Assessment] -Right Calf (cm) 37.5 -Right Ankle (cm) 20 WC - Nurse 2 - General Ulcer CM Notes Start: 04/17/19 10:31 Freq: Status: Active Protocol: Activity Type Activity Date Activity User E-Sign Co-Sign Detail Recorded Client Recorded Date Recorded By Document 04/17/19 11:32 MW [id number] 04/17/19 11:34 MW 04/17/19 11:32 Wound Center Nurse 2 [Procedure/Treatment] #1 R Lat Ankle -Time 11:32 -Correct Patient Yes -Correct Side, Site, Position Yes -Correct Procedure Yes -Procedure Performed No -Wound/Ulcer Outcome Not Healed -Ulcer Cleansing Rinsed/ Irrigated with Saline -Foul Odor after Cleansing No -Bioengineered Tissue No -Bleeding Controlled with NA -Offloading No -Treatment Response Procedure Tolerated Well [See Physician Procedure note for Specifics] Pain Scale: 0-10 Numeric [Pain] -Is Patient Pain Free? Yes Musculoskeletal: No Muscle Wasting Neurological: Cranial nerves II-XII grossly intact Psych/Mental Status: Normal Affect Debridement Note Post-Debridement Measurements/Treatment WC - Nurse 2 - General Ulcer CM Notes Start: 04/17/19 10:31 Freq: Status: Active Protocol: Activity Type Activity Date Activity User E-Sign Co-Sign Detail Recorded Client Recorded Date Recorded By Document 04/17/19 11:32 MW [id number] 04/17/19 11:34 MW 04/17/19 11:32 Wound Center Nurse 2 #1 R Lat Ankle -Time 11:32 -Correct Patient Yes -Correct Side, Site, Position Yes -Correct Procedure Yes -Procedure Performed No -Wound/Ulcer Outcome Not Healed -Ulcer Cleansing Rinsed/ Irrigated with Saline -Foul Odor after Cleansing No -Bioengineered Tissue No -Bleeding Controlled with NA -Offloading No -Treatment Response Procedure Tolerated Well Pain Scale: 0-10 Numeric Is Patient Pain Free? Yes No debridement was completed today Assessment/Plan Active Problems (Last Reviewed 04/16/19 @ 10:48 by Thompson Diggs MD) Exposed orthopaedic hardware (Acute) Ulcer of right ankle (Acute) Assessment: Same as above. Plan: 2 areas of exposed hardware noted over the right lateral malleolus. Surrounding swelling and erythema with some mild drainage also appreciated. Nontender. No debridement was completed today. Advised to follow-up with his orthopedic surgeon/gas inspector as soon as possible. Currently follows up at [facility]. Complete antibiotic regimen. Elevate lower extremities when seated in bed. Increased protein intake also recommended. Advised to call with any questions or concerns. May follow-up after orthopedic review however, anticipate that he might need surgical intervention. This note was generated with [employer] dictation software. It may contain incorrect words, spelling, and punctuation that were not noted in checking the note before signing.
[2019-05-01 09:47] VITALS: BP 95/64; PULSE 94; RESP 18; TEMP 36.7; BMI 15.6
--- NOTE | 2019-05-01 12:39 | PCM.WC.PN ---
(1) Ulcer of right ankle Status: Chronic Current Visit: Yes Code(s): L97.319 - Non-pressure chronic ulcer of right ankle with unspecified severity (2) Status post hardware removal Status: Acute Current Visit: Yes Code(s): Z98.890 - Other specified postprocedural states Type of Wound Date of Service: 05/01/19 Chief Complaint: Right ankle ulcer secondary to exposed hardware. History of Wound: Mr. Lucio is an 83-year-old who was referred to the wound center due to right ankle ulcer. Symptoms started 2 weeks ago with redness and swelling noted around the area. Was seen at the emergency room, imaging done with no significant concern. He was started on antibiotics due to mild purulent drainage noted and patient was subsequently referred here. Had right ankle surgery in 1992 and has been doing well since then. Had hardware removed by Dr. Diop 04/24/19 and a wound vac placed. Progress of Wound: Stable - Physical Exam Vital Signs Temp Pulse Resp BP 98.0 F 94 18 95/64 05/01/19 09:47 05/01/19 09:47 05/01/19 09:47 05/01/19 09:47 General: Alert, Oriented x3, Cooperative HEENT: Atraumatic Oral: Moist Mucosa Lungs: Normal air movement Cardiovascular: Regular Rhythm Extremities: Capillary Refill Less than 3 Seconds, Edema - +1-+2 foot and ankle Skin: Ulcer/ Wound - Right lateral ankle Wound Measurements and Assessment WC - Nurse 1 - General Ulcer Measurement Start: 04/17/19 10:31 Freq: Status: Active Protocol: Activity Type Activity Date Activity User E-Sign Co-Sign Detail Recorded Client Recorded Date Recorded By Document 05/01/19 09:47 [id number] 05/01/19 10:01 05/01/19 09:47 Wound Center Nurse 1 [Ulcer Assessment] #1 R Lat Ankle -Combined with other wound No -Current Size (cm) - Length 9.3 -Current Size (cm) - Width 2.4 -Current Size (cm) - Depth 0.2 -Total Square Cm 22.32 -Photo Taken No -Epithelialization None Present -Tunneling No -Undermining/Tunneling No -Circular Undermining No -Exudate Amt Large -Exudate Type Serous -Wound Margin Distinct, Outline Attached -Granulation Amt Large (67-100%) -Granulation Quality Red -Slough/Fibrin Yes -Necrosis Amt None Present (0 %) -Necrotic Tissue Type Adherent Slough -Texture (Martha-wound Skin Appearance) Scarring -Moisture (Martha-wound Skin Appearance Maceration ) -Color (Martha-wound Skin Appearance) Erythema -Temperature (Martha-wound Skin No Abnormality Appearance) (Pt Warm) -Tenderness on Palpation (Martha-wound No Skin Appearance) -Ulcer Cleansing Rinsed/ Irrigated with Saline -Foul Odor after Cleansing No -Anesthetic Used 4% Lidocaine Solution [Edema Assessment] -Lower Limb Edema Present NA - Nurse 2 - General Ulcer CM Notes Start: 04/17/19 10:31 Freq: Status: Active Protocol: Activity Type Activity Date Activity User E-Sign Co-Sign Detail Recorded Client Recorded Date Recorded By Document 05/01/19 10:29 [id number] 05/01/19 10:34 05/01/19 10:29 Wound Center Nurse 2 [Procedure/Treatment] #1 R Lat Ankle -Time 10:29 -Correct Patient Yes -Correct Side, Site, Position Yes -Correct Procedure Yes -Procedure Performed Yes -Type of Procedure Debridement -Clinical Debridement Subcutaneous -Post Debridement Size (cm) - Length 3.5 -Post Debridement Size (cm) - Width 2.5 -Post Debridement Size (cm) - Depth 0.7 -Total Square Cm 8.75 -Wound/Ulcer Outcome Not Healed -Ulcer Cleansing Rinsed/ Irrigated with Saline -Foul Odor after Cleansing No -Bioengineered Tissue No -Bleeding Controlled with Pressure -Offloading No -Treatment Response Procedure Tolerated Well [See Physician Procedure note for Specifics] Pain Scale: 0-10 Numeric [Pain] -Is Patient Pain Free? Yes Musculoskeletal: No Tenderness to Palpation of Joints or Extremities Neurological: Neuro grossly intact Psych/Mental Status: Normal Affect, Appropriate Debridement Note Post-Debridement Measurements/Treatment - Nurse 2 - General Ulcer CM Notes Start: 04/17/19 10:31 Freq: Status: Active Protocol: Activity Type Activity Date Activity User E-Sign Co-Sign Detail Recorded Client Recorded Date Recorded By Document 04/17/19 11:32 MW [id number] 04/17/19 11:34 MW Document 05/01/19 10:29 [id number] 05/01/19 10:34 04/17/19 05/01/19 11:32 10:29 Wound Center Nurse 2 #1 R Lat Ankle -Time 11:32 10:29 -Correct Patient Yes Yes -Correct Side, Site, Position Yes Yes -Correct Procedure Yes Yes -Procedure Performed No Yes -Type of Procedure Debridement -Clinical Debridement Subcutaneous -Post Debridement Size (cm) - Length 3.5 -Post Debridement Size (cm) - Width 2.5 -Post Debridement Size (cm) - Depth 0.7 -Total Square Cm 8.75 -Wound/Ulcer Outcome Not Healed Not Healed -Ulcer Cleansing Rinsed/ Rinsed/ Irrigated with Irrigated with Saline Saline -Foul Odor after Cleansing No No -Bioengineered Tissue No No -Bleeding Controlled with NA Pressure -Offloading No No -Treatment Response Procedure Procedure Tolerated Well Tolerated Well Pain Scale: 0-10 Numeric Is Patient Pain Free? Yes Yes Wound debrided: Right lateral ankle Laterality: Right Type of Debridement: Excisional debridement Anesthesia Used: 5% Lidocaine Gel Depth: Down to and including healthy tissue, in the subcutaneous layer, to bone - Bone is palpable Percentage of wound debrided: 100 Instrument Used: 5mm curette Tissue Removed: Subcutaneous tissue and slough Severity: Fat Layer Exposed Amount of bleeding with debridement: Mild Bleeding Controlled with: Pressure Patient tolerated procedure well Assessment/Plan Active Problems (Last Reviewed 04/16/19 @ 10:48 by Thompson Diggs MD) Ulcer of right ankle (Chronic) Status post hardware removal (Acute) Assessment: Ulcer of right ankle. Status post hardware removal Plan: 2 areas of exposed hardware noted over the right lateral malleolus. He had this removed on 04/24/[address] Diop. A wound VAC was placed in PACU. Patient was scheduled to follow up in the wound center for further management of left ankle wound. Patient does not want the wound VAC any longer. The sutures that were placed last week have significant skin overgrowth from being under the wound VAC. They were removed today with some difficulty. Debridement of the distal portion of the ulcer was performed today and well tolerated. Will continue to wound care with Aquacel extra daily. There is currently bone palpable. Will apply for [employer] approval, since this can be used with exposed bone and would be benficial for helping this ulcer to close. Will apply a single layer tubigrip to help with swelling. Advised to follow-up with his orthopedic surgeon/medical services coordinator as soon as possible. Currently follows up at [facility]. Complete antibiotic regimen. Elevate lower extremities when seated in bed. Increased protein intake also recommended. Recommend following up with Dr. Diop at [facility] since he has no follow up appointment with him. Follow up in one week with Dr. Higgins. He is to call if he has any issues or questions before then. Code Visit [id number]: [id number] Birgit subq tissue 20 sq cm/<
[2019-05-08 10:23] VITALS: BP 115/77; PULSE 18; RESP 18; TEMP 36.7; BMI 15.6
--- NOTE | 2019-05-08 20:09 | PCM.WC.PN ---
(1) Exposed orthopaedic hardware Status: Acute Current Visit: No Code(s): T84.498A - Other mechanical complication of other internal orthopedic devices, implants and grafts, initial encounter (2) Ulcer of right ankle Status: Chronic Current Visit: Yes Code(s): L97.319 - Non-pressure chronic ulcer of right ankle with unspecified severity Type of Wound Date of Service: 05/08/19 Chief Complaint: Right ankle ulcer secondary to exposed hardware. History of Wound: Mr. Lucio is an 83-year-old who was referred to the wound center due to right ankle ulcer. Symptoms started 2 weeks ago with redness and swelling noted around the area. Was seen at the emergency room, imaging done with no significant concern. He was started on antibiotics due to mild purulent drainage noted and patient was subsequently referred here. Had right ankle surgery in 1992 and has been doing well since then. Had hardware removed by Dr. Diop 04/24/19 and a wound vac placed. Progress of Wound: No new concerns. Status post hardware removal. VAC was stopped last week per patient preference. Still has significant drainage. - Physical Exam Vital Signs Temp Pulse Resp BP 98.0 F 18 L 18 115/77 05/08/19 10:23 05/08/19 10:23 05/08/19 10:23 05/08/19 10:23 General: Alert, Oriented x3, Cooperative, No apparent distress HEENT: Atraumatic, Normocephalic Oral: Moist Mucosa Neck: Supple Lungs: Normal air movement Extremities: No cyanosis Wound Measurements and Assessment WC - Nurse 1 - General Ulcer Measurement Start: 04/17/19 10:31 Freq: Status: Active Protocol: Activity Type Activity Date Activity User E-Sign Co-Sign Detail Recorded Client Recorded Date Recorded By Document 05/08/19 10:23 DV [id number] 05/08/19 10:32 DV 05/08/19 10:23 Wound Center Nurse 1 [Ulcer Assessment] #1 R Lat Ankle -Combined with other wound No -Current Size (cm) - Length 8.8 -Current Size (cm) - Width 3.5 -Current Size (cm) - Depth 0.7 -Total Square Cm 30.80 -Photo Taken No -Epithelialization None Present -Tunneling No -Undermining/Tunneling No -Circular Undermining No -Exudate Amt Large -Exudate Type Serosanguineous -Wound Margin Indistinct, Non -Visible -Granulation Amt None Present (0 %) -Granulation Quality N/A -Slough/Fibrin Yes -Necrosis Amt Large (67-100%) -Necrotic Tissue Type Adherent Slough -Structure Exposed Bone,Fat Layer Exposed,None/ Limited to Skin Breakdown -Texture (Martha-wound Skin Appearance) Assessed, Localized Edema ,Scarring -Moisture (Martha-wound Skin Appearance Assessed, ) Weeping -Color (Martha-wound Skin Appearance) Assessed, Erythema -Foul Odor after Cleansing No -Anesthetic Used 4% Lidocaine Solution WC - Nurse 2 - General Ulcer CM Notes Start: 04/17/19 10:31 Freq: Status: Active Protocol: Activity Type Activity Date Activity User E-Sign Co-Sign Detail Recorded Client Recorded Date Recorded By Document 05/08/19 11:07 MW [id number] 05/08/19 11:13 MW 05/08/19 11:07 Wound Center Nurse 2 [Procedure/Treatment] -Time 11:09 -Correct Patient Yes -Correct Side, Site, Position Yes -Correct Procedure Yes -Procedure Performed Yes -Type of Procedure Debridement -Clinical Debridement Subcutaneous -Post Debridement Size (cm) - Length 8.7 -Post Debridement Size (cm) - Width 2.7 -Post Debridement Size (cm) - Depth 0.6 -Total Square Cm 23.49 -Wound/Ulcer Outcome Not Healed -Ulcer Cleansing Rinsed/ Irrigated with Saline -Foul Odor after Cleansing No -Bioengineered Tissue No -Bleeding Controlled with Pressure -Offloading No -Treatment Response Procedure Tolerated Well [See Physician Procedure note for Specifics] Pain Scale: 0-10 Numeric [Pain] -Is Patient Pain Free? Yes Musculoskeletal: No Muscle Wasting Neurological: Cranial nerves II-XII grossly intact Psych/Mental Status: Normal Affect Debridement Note Post-Debridement Measurements/Treatment - Nurse 2 - General Ulcer CM Notes Start: 04/17/19 10:31 Freq: Status: Active Protocol: Activity Type Activity Date Activity User E-Sign Co-Sign Detail Recorded Client Recorded Date Recorded By Document 04/17/19 11:32 MW [id number] 04/17/19 11:34 MW Document 05/01/19 10:29 [id number] 05/01/19 10:34 JF Document 05/08/19 11:07 MW [id number] 05/08/19 11:13 MW 04/17/19 05/01/19 05/08/19 11:32 10:29 11:07 Wound Center Nurse 2 #1 R Lat Ankle -Time 11:32 10:29 11:09 -Correct Patient Yes Yes Yes -Correct Side, Site, Position Yes Yes Yes -Correct Procedure Yes Yes Yes -Procedure Performed No Yes Yes -Type of Procedure Debridement Debridement -Clinical Debridement Subcutaneous Subcutaneous -Post Debridement Size (cm) - Length 3.5 8.7 -Post Debridement Size (cm) - Width 2.5 2.7 -Post Debridement Size (cm) - Depth 0.7 0.6 -Total Square Cm 8.75 23.49 -Wound/Ulcer Outcome Not Healed Not Healed Not Healed -Ulcer Cleansing Rinsed/ Rinsed/ Rinsed/ Irrigated with Irrigated with Irrigated with Saline Saline Saline -Foul Odor after Cleansing No No No -Bioengineered Tissue No No No -Bleeding Controlled with NA Pressure Pressure -Offloading No No No -Treatment Response Procedure Procedure Procedure Tolerated Well Tolerated Well Tolerated Well Pain Scale: 0-10 Numeric Is Patient Pain Free? Yes Yes Yes Wound debrided: Right lower extremity (ankle) lateral Wound Grade/Stage: Stage III Type of Debridement: Excisional debridement Anesthesia Used: 4% Lidocaine Solution Depth: Down to and including healthy tissue, in the subcutaneous layer, to bone Percentage of wound debrided: 100 Instrument Used: 5mm curette Tissue Removed: Slough and devitalized tissue Severity: Fat Layer Exposed Amount of bleeding with debridement: Mild Bleeding Controlled with: Pressure Patient tolerated procedure well Assessment/Plan Active Problems (Last Reviewed 04/16/19 @ 10:48 by Thompson Diggs MD) Ulcer of right ankle (Chronic) Status post hardware removal (Acute) Assessment: Ulcer of right ankle. Status post hardware removal Plan: Debridement done as documented above, procedure was well-tolerated. Bone performed. I believe patient will definitely continue to require/need wound VAC. Will reapply. Due to concerns with mobility, will apply for snap VAC. For now, continue Aquacel dressing with Adaptic. Change daily to twice daily depending on drainage. Continue Tubigrip for edema management. Elevate lower extremities when seated and in bed. Increased protein intake also recommended. Follow-up in 1 week. Continue other management per Ortho. All his questions were answered and they were advised to call with any further questions or concerns. This note was generated with [employer]bor[employer] software. It may contain incorrect words, spelling, and punctuation that were not noted in checking the note before signing.
== END 2019-05-12 23:59 ==
LOC: WC 09:45
PROVIDERS: Family Provider Internal Medicine; PCP Internal Medicine; Visit Provider Internal Medicine
DX: T84.498A Other mechanical complication of other internal orthopedic devices, implants and grafts, initial encounter (principal); Y83.8 Other surgical procedures as the cause of abnormal reaction of the patient, or of later complication, without mention of misadventure at the time of the procedure; L97.312 Non-pressure chronic ulcer of right ankle with fat layer exposed; I48.0 Paroxysmal atrial fibrillation; I11.0 Hypertensive heart disease with heart failure; I50.32 Chronic diastolic (congestive) heart failure; I25.10 Atherosclerotic heart disease of native coronary artery without angina pectoris; E78.5 Hyperlipidemia, unspecified; Z95.1 Presence of aortocoronary bypass graft; Z79.01 Long term (current) use of anticoagulants; Z79.899 Other long term (current) drug therapy; Z87.891 Personal history of nicotine dependence
CPT/HCPCS: 11042; 11045; 99213; G0463

== ENCOUNTER 2019-06-12 09:15 | Outpatient (RCR) | payer MEDICARE, SELFPAY ==
[2019-05-13 00:56] VITALS: BP 132/72; BP 98/62; BMI 27.6
--- NOTE | 2019-05-27 06:49 | PCM.CR.ITP ---
Exercise - 60-Day Assessment - Visit Date of Eval: 05/27/19 Session #:: 15 - Missed several session due to ankel surgery - Stages of Change Stages of Change:: Action - Physician Prescribed Exercise Modalities: Biodyne, Airdyne, NuStep, SciFit Frequency (days/week): 3 Duration (Minutes):: 30-45 Intensity: 60-80% age predicted maximum heart rate reserve METs - Progression: 0.5-1.0 MET, RPE 11-14 WEEK: 2.5 Target Heart Rate:: 90-118 with max HR 97 - Hypertension Resting Blood Pressure:: 90/60 Peak Exercise Blood Pressure:: 100/57 Medication Changes:: Yes - Intervention Home Exercise/Activity Goal:: Sitting Time <3 hrs/day - Education Goals:: Warm-up, RPE JAI Scale, S/S, Safe Exercise, Self-Monitoring - Exercise Program Goals Exercise Program Goals: Aerobic Activity >30 min Nutrition - Initial Assessment - Program Goals Nutrition Program Goals: LDL <70. Total Cholesterol <200. HDL >45. Triglycerides <150. HgbA1C <7%. BMI <25 - Diabetes Do you monitor your blood sugar at home?: No - IT'S NEVER OVER THE TOP SO I DONT MONITOR IT EVERYDAY Nutrition - 60-Day Assessment - Program Goals Nutrition Program Goals: LDL <70. Total Cholesterol <200. HDL >45. Triglycerides <150. HgbA1C <7%. BMI <25 - Visit Date of Eval: 05/27/19 - Stages of Change Stages of Change:: Action - Lipids Has the patient seen the dietitian?: No - Diabetes Diabetes:: No - Weight Management Weight:: 181 lb 8 oz - down from 196.5 - Intervention Referral to dietitian:: No Referral to Diabetic Clinic:: No Will attend diet classes:: Yes - Education Attended class for:: Healthy eating Tobacco - 60-Day Assessment - Program Goals Tobacco Program Goals: Complete smoking cessation. Attend education classes. Improve Knowledge Test score - Stage of Change Stages of Change:: Action - Learning Barriers Learning Barriers: Participates in education, Change in behavior - Family Support Do you have family support?: Yes - Tobacco Use Tobacco Use: Non-smoker Do you use smokeless tobacco?: No - Intervention Smoking Cessation Referral:: No Education Schedule Given:: Yes - Education Attended class for:: Treating Heart Disease, How The Heart Works, What it means to have Heart Disease, How Coronary Artery Disease is Diagnosed, Heart Procedures, What Heart Medications Do, Risk Factors & Modifications, Living an Active Life, Nutrition, Emotions & Heart Disease, Stress Management & Relaxation, Sleep Disorders & Heart Disease Psychosocial - Initial Assess - Target Goals Target Goals: Assess presence or absence of depression. Using a valid screening tool, maximizes coping skills. Positive support system - Psychosocial Test Tool Used:: HANDS Depression Questionnaire - Assistive Devices Fall Risk Assessed:: Yes Psychosocial - 60-Day Assess - Target Goals Target Goals: Assess presence or absence of depression. Using a valid screening tool, maximizes coping skills. Positive support system - Stages of Change Stages of Change:: Action - Psychosocial Test Tool Used:: HANDS Depression Questionnaire - Intervention PS - Interventions: Yes Attend Stress Management Classes, No Referral to Mental Health, No Referral to [facility] Case Management, No Referral to Physician, No Uses Stress Management Skills - Education Attended classes for:: Coping techniques, Signs & symptoms of depression, Stress management, Relaxation techniques - Patient/Program Goal Preventative Medication(s):: Aspirin, WEI inhibitor, Clopidogrel, Beta elijah, Statin/lipid - Assistive Devices Assistive Devices:: None - Patient is now ambulating on his own without assistance Fall Risk Assessed:: Yes Patient Health Questionnaire 60-Day Re-eval Assessment 1. Little interest or pleasure in doing things: Not at all 2. Feeling down, depressed, or hopeless: Several days 3. Trouble falling or staying asleep, or sleeping too much: More than half the days 4. Feeling tired or having little energy: More than half the days 5. Poor appetite or overeating: Not at all 6. Feeling bad about yourself -- or that you are a failure or have let yourself or your family down: Not at all 7. Trouble concentrating on things, such as reading the newspaper or watching television: Not at all 8. Moving or speaking so slowly that other people could have noticed. Or the opposite - being so fidgety or restless that you have been moving around a lot more than usual: Not at all 9. Thoughts that you would be better off , or of hurting yourself in some way: Not at all How difficult have these problems made it for you to do your work, take care of things at home, or get along with other people?: Somewhat difficult Total Score: 5 Self-Efficacy 60-Day Re-eval Assessment We would like to know how confident you are in doing certain activities. Please select your confidence level for:: Select your confidence level for the following using the scale 1-10 where 1 is not at all confident and 10 is totally confident. Your score is the average of all 6 responses. Fatigue: How confident are you that you can keep the fatigue caused by your disease from interfering with the things you want to do? Select Number: 7 Physical Discomfort or Pain: How confident are you that you can keep the physical discomfort or pain of your disease from interfering with the things you want to do? Select Number: 10 Emotional Distress: How confident are you that you can keep the emotional distress caused by your disease from interfering with the things you want to do? Select Number: 9 Other Symptoms or Health Problems: How confident are you that you can keep other symptoms or health problems from interfering with the things you want to do? Select Number: 9 Different Tasks and Activities: How confident are you that you can do the different tasks and activities needed to manage your health condition so as to reduce your need to see a doctor? Select Number: 10 Medication: How confident are you that you can do things other than just taking medication to reduce how much your illness affects your everyday life? Select Number: 8 Total Score:: 8
[2019-05-27 06:54] VITALS: BP 100/57; BP 90/60
== END 2019-06-12 23:59 ==
LOC: CR 09:15
PROVIDERS: Family Provider Internal Medicine; PCP Internal Medicine; Referring Provider Internal Medicine Cardiovascular Disease; Visit Provider Internal Medicine Cardiovascular Disease
DX: I27.21 Secondary pulmonary arterial hypertension (principal); I11.0 Hypertensive heart disease with heart failure; I50.33 Acute on chronic diastolic (congestive) heart failure; I48.0 Paroxysmal atrial fibrillation; I77.1 Stricture of artery; I44.7 Left bundle-branch block, unspecified; I35.0 Nonrheumatic aortic (valve) stenosis; I25.10 Atherosclerotic heart disease of native coronary artery without angina pectoris; E78.5 Hyperlipidemia, unspecified; Z95.2 Presence of prosthetic heart valve; Z95.1 Presence of aortocoronary bypass graft
CPT/HCPCS: 93798

== ENCOUNTER 2019-06-12 11:00 | Outpatient (RCR) | payer MEDICARE, SELFPAY ==
[2019-05-13 00:56] VITALS: BMI 27.6
[2019-05-13 01:02] VITALS: BP 115/77; PULSE 18; RESP 18; TEMP 36.7
[2019-05-15 10:12] VITALS: RESP 16; BMI 27.6
--- NOTE | 2019-05-15 13:17 | PN.PCM_ITS ---
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 (2) Status post hardware removal Status: Acute Current Visit: Yes Code(s): Z98.890 - Other specified postprocedural states Type of Wound Date of Service: 05/15/19 Chief Complaint: Right ankle ulcer secondary to exposed hardware. History of Wound: Mr. Lucio is an 83-year-old who was referred to the wound center due to right ankle ulcer. Symptoms started 2 weeks ago with redness and swelling noted around the area. Was seen at the emergency room, imaging done with no significant concern. He was started on antibiotics due to mild purulent drainage noted and patient was subsequently referred here. Had right ankle surgery in 1992 and has been doing well since then. Had hardware removed by Dr. Diop 04/24/19 and a wound vac placed. Progress of Wound: No new concerns. Now approved for grafix. - Physical Exam Vital Signs Temp Pulse Resp BP 98.0 F 18 L 16 115/77 05/13/19 01:02 05/13/19 01:02 05/15/19 10:12 05/13/19 01:02 General: Alert, Oriented x3, Cooperative, No apparent distress HEENT: Atraumatic, Normocephalic Oral: Moist Mucosa Neck: Supple Lungs: Normal air movement Extremities: No cyanosis, Edema Skin: Ulcer/ Wound Wound Measurements and Assessment WC - Nurse 1 - General Ulcer Measurement Start: 05/15/19 10:12 Freq: Status: Active Protocol: Activity Type Activity Date Activity User E-Sign Co-Sign Detail Recorded Client Recorded Date Recorded By Document 05/15/19 10:12 [facility] [id number] 05/15/19 10:20 [facility] 05/15/19 10:12 Wound Center Nurse 1 [Ulcer Assessment] #1 R Lat Ankle -Combined with other wound No -Current Size (cm) - Length 8.8 -Current Size (cm) - Width 2.4 -Current Size (cm) - Depth 0.3 -Total Square Cm 21.12 -Photo Taken No -Epithelialization None Present -Tunneling No -Undermining/Tunneling No -Circular Undermining No -Exudate Amt Large -Exudate Type Serosanguineous -Wound Margin Distinct, Outline Attached -Granulation Amt Small (1-33%) -Granulation Quality Red -Slough/Fibrin Yes -Necrosis Amt Large (67-100%) -Necrotic Tissue Type Adherent Slough -Texture (Martha-wound Skin Appearance) Assessed, Scarring -Moisture (Martha-wound Skin Appearance Assessed,Dry/ ) Scaly -Color (Martha-wound Skin Appearance) Assessed, Erythema -Temperature (Martha-wound Skin No Abnormality Appearance) (Pt Warm) -Tenderness on Palpation (Martha-wound No Skin Appearance) -Ulcer Cleansing Rinsed/ Irrigated with Saline -Foul Odor after Cleansing No -Anesthetic Used 4% Lidocaine Solution [Edema Assessment] -Lower Limb Edema Present Yes -Right Calf (cm) 34.4 -Right Ankle (cm) 19.5 WC - Nurse 2 - General Ulcer CM Notes Start: 05/15/19 10:12 Freq: Status: Active Protocol: Activity Type Activity Date Activity User E-Sign Co-Sign Detail Recorded Client Recorded Date Recorded By Document 05/15/19 10:32 MW [id number] 05/15/19 10:45 MW 05/15/19 10:32 Wound Center Nurse 2 [Procedure/Treatment] #1 R Lat Ankle -Time 10:37 -Correct Patient Yes -Correct Side, Site, Position Yes -Correct Procedure Yes -Procedure Performed Yes -Type of Procedure Debridement -Clinical Debridement Subcutaneous -Post Debridement Size (cm) - Length 9.0 -Post Debridement Size (cm) - Width 2.0 -Post Debridement Size (cm) - Depth 0.3 -Total Square Cm 18.00 -Wound/Ulcer Outcome Not Healed -Ulcer Cleansing Rinsed/ Irrigated with Saline -Foul Odor after Cleansing No -Bioengineered Tissue Yes -Type of bioengineered Tissue GRAFIX-Pime -Expiration Date 03/12/20 -Product Lot Number [id number] -Percent Used 100 -Saline Lot Number [id number] -Bleeding Controlled with Pressure -Offloading No -Treatment Response Procedure Tolerated Well [See Physician Procedure note for Specifics] Pain Scale: 0-10 Numeric [Pain] -Is Patient Pain Free? Yes Musculoskeletal: No Muscle Wasting Neurological: Cranial nerves II-XII grossly intact Psych/Mental Status: Normal Affect Debridement Note Post-Debridement Measurements/Treatment WC - Nurse 2 - General Ulcer CM Notes Start: 05/15/19 10:12 Freq: Status: Active Protocol: Activity Type Activity Date Activity User E-Sign Co-Sign Detail Recorded Client Recorded Date Recorded By Document 05/15/19 10:32 MW [id number] 05/15/19 10:45 MW 05/15/19 10:32 Wound Center Nurse 2 #1 R Lat Ankle -Time 10:37 -Correct Patient Yes -Correct Side, Site, Position Yes -Correct Procedure Yes -Procedure Performed Yes -Type of Procedure Debridement -Clinical Debridement Subcutaneous -Post Debridement Size (cm) - Length 9.0 -Post Debridement Size (cm) - Width 2.0 -Post Debridement Size (cm) - Depth 0.3 -Total Square Cm 18.00 -Wound/Ulcer Outcome Not Healed -Ulcer Cleansing Rinsed/ Irrigated with Saline -Foul Odor after Cleansing No -Bioengineered Tissue Yes -Type of bioengineered Tissue GRAFIX-Pime -Expiration Date 03/12/20 -Product Lot Number [id number] -Percent Used 100 -Saline Lot Number [id number] -Bleeding Controlled with Pressure -Offloading No -Treatment Response Procedure Tolerated Well Pain Scale: 0-10 Numeric Is Patient Pain Free? Yes Wound debrided: Right lower extremity Wound Grade/Stage: Stage III Type of Debridement: Excisional debridement Anesthesia Used: 4% Lidocaine Solution Depth: Down to and including healthy tissue, in the subcutaneous layer - Exposed bone Percentage of wound debrided: 100 Instrument Used: 5mm curette Tissue Removed: Slough and devitalized tissue Severity: Fat Layer Exposed Amount of bleeding with debridement: Mild Bleeding Controlled with: Pressure Patient tolerated procedure well Assessment/Plan Active Problems (Last Reviewed 04/16/19 @ 10:48 by Thompson Diggs MD) Ulcer of right ankle (Chronic) Exposed bone. Status post hardware removal (Acute) Assessment: Ulcer of right ankle with exposed bone. Status post hardware removal Plan: Debridement done as documented above, procedure was well-tolerated. Initial application of Grafix done today using 100% of product. Moistened with saline wound veil over top and secured with Steri-Strips. SnapVac over top. Continue Tubigrip for edema management. Elevate lower extremities when seated and in bed. Increased protein intake also recommended. Follow-up in 1 week. All his questions were answered and he was advised to call with any further questions or concerns. This note was generated with [employer] dictation software. It may contain incorrect words, spelling, and punctuation that were not noted in checking the note before signing.
[2019-05-22 10:50] VITALS: BP 92/53; PULSE 94; RESP 20; TEMP 36.6; BMI 27.6
--- NOTE | 2019-05-22 11:40 | PCM.WC.PN ---
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 (2) Status post hardware removal Status: Acute Current Visit: Yes Code(s): Z98.890 - Other specified postprocedural states Type of Wound Date of Service: 05/22/19 Chief Complaint: Right ankle ulcer secondary to exposed hardware. History of Wound: Mr. uLcio is an 83-year-old who was referred to the wound center due to right ankle ulcer. Symptoms started 2 weeks ago with redness and swelling noted around the area. Was seen at the emergency room, imaging done with no significant concern. He was started on antibiotics due to mild purulent drainage noted and patient was subsequently referred here. Had right ankle surgery in 1992 and has been doing well since then. Had hardware removed by Dr. Diop 04/24/19 and a wound vac placed. Progress of Wound: Has had 1 application of Grafix so far. Also had some conbcerns with the wound Vac. - Physical Exam Vital Signs Temp Pulse Resp BP 97.8 F 94 20 H 92/53 L 05/22/19 10:50 05/22/19 10:50 05/22/19 10:50 05/22/19 10:50 General: Alert, Oriented x3, Cooperative, No apparent distress HEENT: Atraumatic, Normocephalic Oral: Moist Mucosa Neck: Supple Lungs: Normal air movement Extremities: No cyanosis Skin: Ulcer/ Wound Wound Measurements and Assessment WC - Nurse 1 - General Ulcer Measurement Start: 05/15/19 10:12 Freq: Status: Active Protocol: Activity Type Activity Date Activity User E-Sign Co-Sign Detail Recorded Client Recorded Date Recorded By Document 05/22/19 10:50 DL [id number] 05/22/19 10:57 DL 05/22/19 10:50 Wound Center Nurse 1 [Ulcer Assessment] #1 R Lat Ankle -Current Size (cm) - Length 8.8 -Current Size (cm) - Width 2 -Current Size (cm) - Depth 0.3 -Total Square Cm 17.6 -Photo Taken No -Exudate Amt Large -Exudate Type Serosanguineous -Wound Margin Distinct, Outline Attached -Granulation Amt Medium (34-66%) -Granulation Quality Red -Necrosis Amt Medium (34-66%) -Necrotic Tissue Type Adherent Slough -Structure Exposed N/A -Texture (Martha-wound Skin Appearance) Excoriation, Scarring -Moisture (Martha-wound Skin Appearance Maceration ) -Color (Martha-wound Skin Appearance) Erythema,Rubor -Temperature (Martha-wound Skin No Abnormality Appearance) (Pt Warm) -Tenderness on Palpation (Martha-wound No Skin Appearance) -Ulcer Cleansing Wound Cleanser -Foul Odor after Cleansing No -Anesthetic Used 5% Lidocaine Gel WC - Nurse 2 - General Ulcer CM Notes Start: 05/15/19 10:12 Freq: Status: Active Protocol: Activity Type Activity Date Activity User E-Sign Co-Sign Detail Recorded Client Recorded Date Recorded By Document 05/22/19 11:28 MW [id number] 05/22/19 11:37 MW 05/22/19 11:28 Wound Center Nurse 2 [Procedure/Treatment] -Time 11:28 -Correct Patient Yes -Correct Side, Site, Position Yes -Correct Procedure Yes -Procedure Performed Yes -Type of Procedure Debridement -Clinical Debridement Subcutaneous -Post Debridement Size (cm) - Length 9.0 -Post Debridement Size (cm) - Width 2.4 -Post Debridement Size (cm) - Depth 0.3 -Total Square Cm 21.60 -Wound/Ulcer Outcome Not Healed -Ulcer Cleansing Rinsed/ Irrigated with Saline -Foul Odor after Cleansing No -Bioengineered Tissue No -Type of bioengineered Tissue GRAFIX-Pime -Expiration Date 01/16/20 -Product Lot Number [id number] -Percent Used 100 -Saline Lot Number [id number] -Bleeding Controlled with Pressure -Offloading No -Treatment Response Procedure Tolerated Well [See Physician Procedure note for Specifics] Pain Scale: 0-10 Numeric [Pain] -Is Patient Pain Free? Yes Musculoskeletal: No Muscle Wasting Neurological: Cranial nerves II-XII grossly intact Psych/Mental Status: Normal Affect Debridement Note Post-Debridement Measurements/Treatment - Nurse 2 - General Ulcer CM Notes Start: 05/15/19 10:12 Freq: Status: Active Protocol: Activity Type Activity Date Activity User E-Sign Co-Sign Detail Recorded Client Recorded Date Recorded By Document 05/15/19 10:32 MW [id number] 05/15/19 10:45 MW Document 05/22/19 11:28 MW [id number] 05/22/19 11:37 MW 05/15/19 05/22/19 10:32 11:28 Wound Center Nurse 2 #1 R Lat Ankle -Time 10:37 11:28 -Correct Patient Yes Yes -Correct Side, Site, Position Yes Yes -Correct Procedure Yes Yes -Procedure Performed Yes Yes -Type of Procedure Debridement Debridement -Clinical Debridement Subcutaneous Subcutaneous -Post Debridement Size (cm) - Length 9.0 9.0 -Post Debridement Size (cm) - Width 2.0 2.4 -Post Debridement Size (cm) - Depth 0.3 0.3 -Total Square Cm 18.00 21.60 -Wound/Ulcer Outcome Not Healed Not Healed -Ulcer Cleansing Rinsed/ Rinsed/ Irrigated with Irrigated with Saline Saline -Foul Odor after Cleansing No No -Bioengineered Tissue Yes No -Type of bioengineered Tissue GRAFIX-Pime GRAFIX-Pime -Expiration Date 03/12/20 01/16/20 -Product Lot Number [id number] -Percent Used 100 100 -Saline Lot Number [id number] -Bleeding Controlled with Pressure Pressure -Offloading No No -Treatment Response Procedure Procedure Tolerated Well Tolerated Well Pain Scale: 0-10 Numeric Is Patient Pain Free? Yes Yes Wound debrided: Right lleg ( ankle ) Wound Grade/Stage: Stage III Type of Debridement: Excisional debridement Anesthesia Used: 4% Lidocaine Solution, 5% Lidocaine Gel Depth: Down to and including healthy tissue, in the subcutaneous layer Percentage of wound debrided: 100 Instrument Used: 5mm curette Tissue Removed: Slough and devitalized tissue Severity: Fat Layer Exposed Amount of bleeding with debridement: Mild Bleeding Controlled with: Pressure Patient tolerated procedure well Assessment/Plan Active Problems (Last Reviewed 04/16/19 @ 10:48 by Thompson Diggs MD) Ulcer of right ankle (Chronic) Exposed bone. Status post hardware removal (Acute) Assessment: Ulcer of right ankle with exposed bone. Status post hardware removal Plan: Debridement done as documented above, procedure was well-tolerated. 2nd application of Grafix done today using 100% of product. Moistened with saline wound veil over top and secured with Steri-Strips. Hold off Snap Vac for a week. Double layer tubigrip fpor edema management. Elevate lower extremities when seated and in bed. Increased protein intake also recommended. Follow-up in 1 week. All his questions were answered and he was advised to call with any further questions or concerns. This note was generated with [employer] dictation software. It may contain incorrect words, spelling, and punctuation that were not noted in checking the note before signing.
[2019-05-29 10:57] VITALS: BP 106/70; PULSE 90; RESP 21; TEMP 36.6; BMI 27.6
--- NOTE | 2019-05-29 16:28 | PCM.WC.PN ---
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 (2) Status post hardware removal Status: Acute Current Visit: Yes Code(s): Z98.890 - Other specified postprocedural states Type of Wound Date of Service: 05/29/19 Chief Complaint: Right ankle ulcer secondary to exposed hardware. History of Wound: Mr. Lucio is an 83-year-old who was referred to the wound center due to right ankle ulcer. Symptoms started 2 weeks ago with redness and swelling noted around the area. Was seen at the emergency room, imaging done with no significant concern. He was started on antibiotics due to mild purulent drainage noted and patient was subsequently referred here. Had right ankle surgery in 1992 and has been doing well since then. Had hardware removed by Dr. Diop 04/24/19 and a wound vac placed. Progress of Wound: Has had 2 applications of Grafix so far. No new concerns at this time. - Physical Exam Vital Signs Temp Pulse Resp BP 97.8 F 90 21 H 106/70 05/29/19 10:57 05/29/19 10:57 05/29/19 10:57 05/29/19 10:57 General: Alert, Oriented x3, Cooperative, No apparent distress HEENT: Atraumatic, Normocephalic Oral: Moist Mucosa Neck: Supple Lungs: Normal air movement Extremities: No cyanosis, Edema Skin: Ulcer/ Wound Wound Measurements and Assessment WC - Nurse 1 - General Ulcer Measurement Start: 05/15/19 10:12 Freq: Status: Active Protocol: Activity Type Activity Date Activity User E-Sign Co-Sign Detail Recorded Client Recorded Date Recorded By Document 05/29/19 10:57 [id number] 05/29/19 11:17 05/29/19 10:57 Wound Center Nurse 1 [Ulcer Assessment] #1 R Lat Ankle -Combined with other wound No -Current Size (cm) - Length 9.5 -Current Size (cm) - Width 2.1 -Current Size (cm) - Depth 0.2 -Total Square Cm 19.95 -Photo Taken No -Epithelialization Large 67-100% -Tunneling No -Undermining/Tunneling No -Exudate Amt Large -Exudate Type Purulent -Wound Margin Distinct, Outline Attached -Granulation Amt Medium (34-66%) -Granulation Quality [place] -Slough/Fibrin Yes -Necrosis Amt None Present (0 %) -Necrotic Tissue Type Adherent Slough -Structure Exposed None/Limited to Skin Breakdown -Texture (Martha-wound Skin Appearance) No Abnormality, Scarring -Moisture (Martha-wound Skin Appearance Assessed, ) Maceration -Color (Martha-wound Skin Appearance) Assessed, Erythema -Temperature (Martha-wound Skin No Abnormality Appearance) (Pt Warm) -Tenderness on Palpation (Martha-wound Yes Skin Appearance) -Foul Odor after Cleansing No -Anesthetic Used 4% Lidocaine Solution,5% Lidocaine Gel [Edema Assessment] -Lower Limb Edema Present No WC - Nurse 2 - General Ulcer CM Notes Start: 05/15/19 10:12 Freq: Status: Active Protocol: Activity Type Activity Date Activity User E-Sign Co-Sign Detail Recorded Client Recorded Date Recorded By Document 05/29/19 11:31 MW [id number] 05/29/19 11:40 MW 05/29/19 11:31 Wound Center Nurse 2 [Procedure/Treatment] #1 R Lat Ankle -Time 11:32 -Correct Patient Yes -Correct Side, Site, Position Yes -Correct Procedure Yes -Procedure Performed Yes -Type of Procedure Debridement -Clinical Debridement Subcutaneous -Post Debridement Size (cm) - Length 8.5 -Post Debridement Size (cm) - Width 1.9 -Post Debridement Size (cm) - Depth 0.3 -Total Square Cm 16.15 -Wound/Ulcer Outcome Not Healed -Ulcer Cleansing Rinsed/ Irrigated with Saline -Foul Odor after Cleansing No -Bioengineered Tissue Yes -Type of bioengineered Tissue GRAFIX-Pime -Expiration Date 05/29/19 -Product Lot Number [id number] -Percent Used 100 -Saline Lot Number [id number] -Bleeding Controlled with Pressure -Offloading No -Treatment Response Procedure Tolerated Well [See Physician Procedure note for Specifics] Pain Scale: 0-10 Numeric [Pain] -Is Patient Pain Free? Yes Neurological: Cranial nerves II-XII grossly intact Psych/Mental Status: Normal Affect Debridement Note Post-Debridement Measurements/Treatment WC - Nurse 2 - General Ulcer CM Notes Start: 05/15/19 10:12 Freq: Status: Active Protocol: Activity Type Activity Date Activity User E-Sign Co-Sign Detail Recorded Client Recorded Date Recorded By Document 05/15/19 10:32 MW [id number] 05/15/19 10:45 MW Document 05/22/19 11:28 MW [id number] 05/22/19 11:37 MW Document 05/29/19 11:31 MW [id number] 05/29/19 11:40 MW 05/15/19 05/22/19 05/29/19 10:32 11:28 11:31 Wound Center Nurse 2 #1 R Lat Ankle -Time 10:37 11:28 11:32 -Correct Patient Yes Yes Yes -Correct Side, Site, Position Yes Yes Yes -Correct Procedure Yes Yes Yes -Procedure Performed Yes Yes Yes -Type of Procedure Debridement Debridement Debridement -Clinical Debridement Subcutaneous Subcutaneous Subcutaneous -Post Debridement Size (cm) - Length 9.0 9.0 8.5 -Post Debridement Size (cm) - Width 2.0 2.4 1.9 -Post Debridement Size (cm) - Depth 0.3 0.3 0.3 -Total Square Cm 18.00 21.60 16.15 -Wound/Ulcer Outcome Not Healed Not Healed Not Healed -Ulcer Cleansing Rinsed/ Rinsed/ Rinsed/ Irrigated with Irrigated with Irrigated with Saline Saline Saline -Foul Odor after Cleansing No No No -Bioengineered Tissue Yes No Yes -Type of bioengineered Tissue GRAFIX-Pime GRAFIX-Pime GRAFIX-Pime -Expiration Date 03/12/20 01/16/20 05/29/19 -Product Lot Number [id number] -Percent Used 100 100 100 -Saline Lot Number [id number] -Bleeding Controlled with Pressure Pressure Pressure -Offloading No No No -Treatment Response Procedure Procedure Procedure Tolerated Well Tolerated Well Tolerated Well Pain Scale: 0-10 Numeric Is Patient Pain Free? Yes Yes Yes Wound debrided: Right lower extremity (ankle) Wound Grade/Stage: Stage III Type of Debridement: Excisional debridement Anesthesia Used: 4% Lidocaine Solution Depth: Down to and including healthy tissue, in the subcutaneous layer Percentage of wound debrided: 100 Tissue Removed: Slough and devitalized tissue Severity: Fat Layer Exposed Amount of bleeding with debridement: Mild Bleeding Controlled with: Pressure Patient tolerated procedure well Assessment/Plan Active Problems (Last Reviewed 04/16/19 @ 10:48 by Thompson Diggs MD) Ulcer of right ankle (Chronic) Exposed bone. Status post hardware removal (Acute) Assessment: Ulcer of right ankle with exposed bone. Status post hardware removal Plan: Debridement done as documented above, procedure was well-tolerated. 3rd application of Grafix done today using 100% of product. Moistened with saline wound veil over top and secured with Steri-Strips. DC snap VAC. Double layer tubigrip fpor edema management. Elevate lower extremities when seated and in bed. Increased protein intake also recommended. Follow-up in 1 week. All his questions were answered and he was advised to call with any further questions or concerns. This note was generated with [employer] dictation software. It may contain incorrect words, spelling, and punctuation that were not noted in checking the note before signing.
[2019-06-05 10:54] VITALS: BP 108/67; PULSE 95; RESP 18; TEMP 37; BMI 27.6
--- NOTE | 2019-06-05 13:02 | PCM.WC.PN ---
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 (2) Status post hardware removal Status: Acute Current Visit: Yes Code(s): Z98.890 - Other specified postprocedural states Type of Wound Date of Service: 06/05/19 Chief Complaint: Right ankle ulcer secondary to exposed hardware. History of Wound: Mr. Lucio is an 83-year-old who was referred to the wound center due to right ankle ulcer. Symptoms started 2 weeks ago with redness and swelling noted around the area. Was seen at the emergency room, imaging done with no significant concern. He was started on antibiotics due to mild purulent drainage noted and patient was subsequently referred here. Had right ankle surgery in 1992 and has been doing well since then. Had hardware removed by Dr. Diop 04/24/19 and a wound vac placed. Progress of Wound: Has had 3 applications of Grafix so far. No new concerns at this time. - Physical Exam Vital Signs Temp Pulse Resp BP 98.6 F 95 18 108/67 06/05/19 10:54 06/05/19 10:54 06/05/19 10:54 06/05/19 10:54 General: Alert, Oriented x3, Cooperative, No apparent distress HEENT: Atraumatic, Normocephalic Oral: Moist Mucosa Neck: Supple Lungs: Normal air movement Extremities: No cyanosis Skin: Ulcer/ Wound Wound Measurements and Assessment WC - Nurse 1 - General Ulcer Measurement Start: 05/15/19 10:12 Freq: Status: Active Protocol: Activity Type Activity Date Activity User E-Sign Co-Sign Detail Recorded Client Recorded Date Recorded By Document 06/05/19 10:54 DV [id number] 06/05/19 11:03 DV 06/05/19 10:54 Wound Center Nurse 1 [Ulcer Assessment] #1 R Lat Ankle -Combined with other wound No -Current Size (cm) - Length 9.2 -Current Size (cm) - Width 1.5 -Current Size (cm) - Depth 0.2 -Total Square Cm 13.80 -Photo Taken No -Epithelialization None Present -Tunneling No -Undermining/Tunneling No -Circular Undermining No -Classification - Thickness Full Thickness without Exposed Support Structure -Exudate Amt Large -Exudate Type Yellow/Green -Wound Margin Indistinct, Non -Visible -Granulation Amt None Present (0 %) -Granulation Quality N/A -Slough/Fibrin No -Necrosis Amt Large (67-100%) -Necrotic Tissue Type Adherent Slough -Structure Exposed None/Limited to Skin Breakdown -Texture (Martha-wound Skin Appearance) Assessed, Scarring -Moisture (Martha-wound Skin Appearance Assessed, ) Weeping -Color (Martha-wound Skin Appearance) Assessed, Erythema -Temperature (Martha-wound Skin No Abnormality Appearance) (Pt Warm) -Tenderness on Palpation (Martha-wound No Skin Appearance) -Foul Odor after Cleansing No -Anesthetic Used 5% Lidocaine Gel [Edema Assessment] -Lower Limb Edema Present No WC - Nurse 2 - General Ulcer CM Notes Start: 05/15/19 10:12 Freq: Status: Active Protocol: Activity Type Activity Date Activity User E-Sign Co-Sign Detail Recorded Client Recorded Date Recorded By Document 06/05/19 11:07 MW [id number] 06/05/19 11:18 MW 06/05/19 11:07 Wound Center Nurse 2 [Procedure/Treatment] #1 R Lat Ankle -Time 11:08 -Correct Patient Yes -Correct Side, Site, Position Yes -Correct Procedure Yes -Procedure Performed Yes -Type of Procedure Debridement -Clinical Debridement Subcutaneous -Post Debridement Size (cm) - Length 8.3 -Post Debridement Size (cm) - Width 1.3 -Post Debridement Size (cm) - Depth 0.3 -Total Square Cm 10.79 -Wound/Ulcer Outcome Not Healed -Ulcer Cleansing Rinsed/ Irrigated with Saline -Foul Odor after Cleansing No -Bioengineered Tissue Yes -Type of bioengineered Tissue GRAFIX-Pime -Expiration Date 03/12/20 -Product Lot Number [id number] -Percent Used 100 -Saline Lot Number [id number] -Bleeding Controlled with Pressure -Offloading No -Treatment Response Procedure Tolerated Well [See Physician Procedure note for Specifics] Pain Scale: 0-10 Numeric [Pain] -Is Patient Pain Free? Yes Musculoskeletal: No Muscle Wasting Neurological: Cranial nerves II-XII grossly intact Psych/Mental Status: Normal Affect Debridement Note Post-Debridement Measurements/Treatment WC - Nurse 2 - General Ulcer CM Notes Start: 05/15/19 10:12 Freq: Status: Active Protocol: Activity Type Activity Date Activity User E-Sign Co-Sign Detail Recorded Client Recorded Date Recorded By Document 05/15/19 10:32 MW [id number] 05/15/19 10:45 MW Document 05/22/19 11:28 MW [id number] 05/22/19 11:37 MW Document 05/29/19 11:31 MW [id number] 05/29/19 11:40 MW Document 06/05/19 11:07 MW [id number] 06/05/19 11:18 MW 05/15/19 05/22/19 05/29/19 10:32 11:28 11:31 Wound Center Nurse 2 #1 R Lat Ankle -Time 10:37 11:28 11:32 -Correct Patient Yes Yes Yes -Correct Side, Site, Position Yes Yes Yes -Correct Procedure Yes Yes Yes -Procedure Performed Yes Yes Yes -Type of Procedure Debridement Debridement Debridement -Clinical Debridement Subcutaneous Subcutaneous Subcutaneous -Post Debridement Size (cm) - Length 9.0 9.0 8.5 -Post Debridement Size (cm) - Width 2.0 2.4 1.9 -Post Debridement Size (cm) - Depth 0.3 0.3 0.3 -Total Square Cm 18.00 21.60 16.15 -Wound/Ulcer Outcome Not Healed Not Healed Not Healed -Ulcer Cleansing Rinsed/ Rinsed/ Rinsed/ Irrigated with Irrigated with Irrigated with Saline Saline Saline -Foul Odor after Cleansing No No No -Bioengineered Tissue Yes No Yes -Type of bioengineered Tissue GRAFIX-Pime GRAFIX-Pime GRAFIX-Pime -Expiration Date 03/12/20 01/16/20 05/29/19 -Product Lot Number [id number] -Percent Used 100 100 100 -Saline Lot Number [id number] -Bleeding Controlled with Pressure Pressure Pressure -Offloading No No No -Treatment Response Procedure Procedure Procedure Tolerated Well Tolerated Well Tolerated Well Pain Scale: 0-10 Numeric Is Patient Pain Free? Yes Yes Yes 06/05/19 11:07 Wound Center Nurse 2 #1 R Lat Ankle -Time 11:08 -Correct Patient Yes -Correct Side, Site, Position Yes -Correct Procedure Yes -Procedure Performed Yes -Type of Procedure Debridement -Clinical Debridement Subcutaneous -Post Debridement Size (cm) - Length 8.3 -Post Debridement Size (cm) - Width 1.3 -Post Debridement Size (cm) - Depth 0.3 -Total Square Cm 10.79 -Wound/Ulcer Outcome Not Healed -Ulcer Cleansing Rinsed/ Irrigated with Saline -Foul Odor after Cleansing No -Bioengineered Tissue Yes -Type of bioengineered Tissue GRAFIX-Pime -Expiration Date 03/12/20 -Product Lot Number [id number] -Percent Used 100 -Saline Lot Number [id number] -Bleeding Controlled with Pressure -Offloading No -Treatment Response Procedure Tolerated Well Pain Scale: 0-10 Numeric Is Patient Pain Free? Yes Wound debrided: Right leg (ankle) Wound Grade/Stage: Stage III Type of Debridement: Excisional debridement Anesthesia Used: 4% Lidocaine Solution Depth: Down to and including healthy tissue, in the subcutaneous layer Percentage of wound debrided: 100 Instrument Used: 5mm curette Tissue Removed: Slough and devitalized tissue Severity: Fat Layer Exposed Amount of bleeding with debridement: Mild Bleeding Controlled with: Pressure Patient tolerated procedure well Assessment/Plan Active Problems (Last Reviewed 04/16/19 @ 10:48 by Thompson Diggs MD) Ulcer of right ankle (Chronic) Exposed bone. Status post hardware removal (Acute) Assessment: Ulcer of right ankle with exposed bone. Status post hardware removal Plan: Debridement done as documented above, procedure was well-tolerated. 4th application of Grafix done today using 100% of product. Moistened with saline wound veil over top and secured with Steri-Strips. Double layer tubigrip fpor edema management. Elevate lower extremities when seated and in bed. Increased protein intake also recommended. Follow-up in 1 week. All his questions were answered and he was advised to call with any further questions or concerns. This note was generated with [employer] software. It may contain incorrect words, spelling, and punctuation that were not noted in checking the note before signing.
[2019-06-12 11:14] VITALS: BP 107/71; PULSE 97; RESP 18; TEMP 36.2; BMI 27.6
--- NOTE | 2019-06-12 13:51 | PN.PCM_ITS ---
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 (2) Status post hardware removal Status: Acute Current Visit: Yes Code(s): Z98.890 - Other specified postprocedural states Type of Wound Date of Service: 06/12/19 Chief Complaint: Right ankle ulcer secondary to exposed hardware. History of Wound: Mr. Lucio is an 83-year-old who was referred to the wound center due to right ankle ulcer. Symptoms started 2 weeks ago with redness and swelling noted around the area. Was seen at the emergency room, imaging done with no significant concern. He was started on antibiotics due to mild purulent drainage noted and patient was subsequently referred here. Had right ankle surgery in 1992 and has been doing well since then. Had hardware removed by Dr. Diop 04/24/19 and a wound vac placed. Progress of Wound: Has had 4 applications of Grafix so far. No new concerns at this time. - Physical Exam Vital Signs Temp Pulse Resp BP 97.2 F L 97 18 107/71 06/12/19 11:14 06/12/19 11:14 06/12/19 11:14 06/12/19 11:14 General: Alert, Oriented x3, Cooperative, No apparent distress HEENT: Atraumatic, Normocephalic Oral: Moist Mucosa Neck: Supple Lungs: Normal air movement Extremities: No cyanosis Skin: Ulcer/ Wound Wound Measurements and Assessment WC - Nurse 1 - General Ulcer Measurement Start: 05/15/19 10:12 Freq: Status: Active Protocol: Activity Type Activity Date Activity User E-Sign Co-Sign Detail Recorded Client Recorded Date Recorded By Document 06/12/19 11:14 DL [id number] 06/12/19 11:25 DL 06/12/19 11:14 Wound Center Nurse 1 [Ulcer Assessment] #1 R Lat Ankle -Current Size (cm) - Length 7.8 -Current Size (cm) - Width 1 -Current Size (cm) - Depth 0.1 -Total Square Cm 7.8 -Photo Taken No -Exudate Amt Small -Exudate Type Serosanguineous -Wound Margin Thickened -Granulation Amt Medium (34-66%) -Granulation Quality Red -Necrosis Amt Medium (34-66%) -Necrotic Tissue Type Adherent Slough -Structure Exposed N/A -Texture (Martha-wound Skin Appearance) Scarring -Moisture (Martha-wound Skin Appearance Dry/Scaly ) -Color (Martha-wound Skin Appearance) No Abnormality -Temperature (Martha-wound Skin No Abnormality Appearance) (Pt Warm) -Tenderness on Palpation (Martha-wound No Skin Appearance) -Ulcer Cleansing Wound Cleanser -Foul Odor after Cleansing No -Anesthetic Used 5% Lidocaine Gel [Edema Assessment] -Right Calf (cm) 35 -Right Ankle (cm) 19.5 WC - Nurse 2 - General Ulcer CM Notes Start: 05/15/19 10:12 Freq: Status: Active Protocol: Activity Type Activity Date Activity User E-Sign Co-Sign Detail Recorded Client Recorded Date Recorded By Document 06/12/19 11:34 MW [id number] 06/12/19 11:45 MW 06/12/19 11:34 Wound Center Nurse 2 [Procedure/Treatment] #1 R Lat Ankle -Time 11:34 -Correct Patient Yes -Correct Side, Site, Position Yes -Correct Procedure Yes -Procedure Performed Yes -Type of Procedure Debridement -Clinical Debridement Subcutaneous -Post Debridement Size (cm) - Length 7.8 -Post Debridement Size (cm) - Width 1.3 -Post Debridement Size (cm) - Depth 0.2 -Total Square Cm 10.14 -Wound/Ulcer Outcome Not Healed -Ulcer Cleansing Rinsed/ Irrigated with Saline -Foul Odor after Cleansing No -Bioengineered Tissue Yes -Type of bioengineered Tissue GRAFIX-Pime -Expiration Date 03/25/20 -Product Lot Number [id number] -Percent Used 100 -Saline Lot Number [id number] -Bleeding Controlled with Pressure -Offloading No -Treatment Response Procedure Tolerated Well [See Physician Procedure note for Specifics] Pain Scale: 0-10 Numeric [Pain] -Is Patient Pain Free? Yes Musculoskeletal: No Muscle Wasting Neurological: Cranial nerves II-XII grossly intact Psych/Mental Status: Normal Affect Debridement Note Post-Debridement Measurements/Treatment WC - Nurse 2 - General Ulcer CM Notes Start: 05/15/19 10:12 Freq: Status: Active Protocol: Activity Type Activity Date Activity User E-Sign Co-Sign Detail Recorded Client Recorded Date Recorded By Document 05/15/19 10:32 MW [id number] 05/15/19 10:45 MW Document 05/22/19 11:28 MW [id number] 05/22/19 11:37 MW Document 05/29/19 11:31 MW [id number] 05/29/19 11:40 MW Document 06/05/19 11:07 MW [id number] 06/05/19 11:18 MW Document 06/12/19 11:34 MW [id number] 06/12/19 11:45 MW 05/15/19 05/22/19 05/29/19 10:32 11:28 11:31 Wound Center Nurse 2 #1 R Lat Ankle -Time 10:37 11:28 11:32 -Correct Patient Yes Yes Yes -Correct Side, Site, Position Yes Yes Yes -Correct Procedure Yes Yes Yes -Procedure Performed Yes Yes Yes -Type of Procedure Debridement Debridement Debridement -Clinical Debridement Subcutaneous Subcutaneous Subcutaneous -Post Debridement Size (cm) - Length 9.0 9.0 8.5 -Post Debridement Size (cm) - Width 2.0 2.4 1.9 -Post Debridement Size (cm) - Depth 0.3 0.3 0.3 -Total Square Cm 18.00 21.60 16.15 -Wound/Ulcer Outcome Not Healed Not Healed Not Healed -Ulcer Cleansing Rinsed/ Rinsed/ Rinsed/ Irrigated with Irrigated with Irrigated with Saline Saline Saline -Foul Odor after Cleansing No No No -Bioengineered Tissue Yes No Yes -Type of bioengineered Tissue GRAFIX-Pime GRAFIX-Pime GRAFIX-Pime -Expiration Date 03/12/20 01/16/20 05/29/19 -Product Lot Number [id number] -Percent Used 100 100 100 -Saline Lot Number [id number] -Bleeding Controlled with Pressure Pressure Pressure -Offloading No No No -Treatment Response Procedure Procedure Procedure Tolerated Well Tolerated Well Tolerated Well Pain Scale: 0-10 Numeric Is Patient Pain Free? Yes Yes Yes 06/05/19 06/12/19 11:07 11:34 Wound Center Nurse 2 #1 R Lat Ankle -Time 11:08 11:34 -Correct Patient Yes Yes -Correct Side, Site, Position Yes Yes -Correct Procedure Yes Yes -Procedure Performed Yes Yes -Type of Procedure Debridement Debridement -Clinical Debridement Subcutaneous Subcutaneous -Post Debridement Size (cm) - Length 8.3 7.8 -Post Debridement Size (cm) - Width 1.3 1.3 -Post Debridement Size (cm) - Depth 0.3 0.2 -Total Square Cm 10.79 10.14 -Wound/Ulcer Outcome Not Healed Not Healed -Ulcer Cleansing Rinsed/ Rinsed/ Irrigated with Irrigated with Saline Saline -Foul Odor after Cleansing No No -Bioengineered Tissue Yes Yes -Type of bioengineered Tissue GRAFIX-Pime GRAFIX-Pime -Expiration Date 03/12/20 03/25/20 -Product Lot Number [id number] -Percent Used 100 100 -Saline Lot Number [id number] -Bleeding Controlled with Pressure Pressure -Offloading No No -Treatment Response Procedure Procedure Tolerated Well Tolerated Well Pain Scale: 0-10 Numeric Is Patient Pain Free? Yes Yes Wound debrided: Right leg (ankle) Wound Grade/Stage: Stage III Type of Debridement: Excisional debridement Anesthesia Used: 4% Lidocaine Solution Depth: Down to and including healthy tissue, in the subcutaneous layer Percentage of wound debrided: 100 Instrument Used: 3mm curette Tissue Removed: Slough and devitalized tissue Severity: Fat Layer Exposed Amount of bleeding with debridement: Mild Bleeding Controlled with: Pressure Patient tolerated procedure well Assessment/Plan Active Problems (Last Reviewed 04/16/19 @ 10:48 by Thompson Diggs MD) Ulcer of right ankle (Chronic) Exposed bone. Status post hardware removal (Acute) Assessment: Ulcer of right ankle with exposed bone. Status post hardware removal Plan: Debridement done as documented above, procedure was well-tolerated. 5th application of Grafix done today using 100% of product. Moistened with saline wound veil over top and secured with Steri-Strips. Double layer tubigrip fpor edema management. Elevate lower extremities when seated and in bed. Increased protein intake also recommended. Follow-up in 1 week. All his questions were answered and he was advised to call with any further questions or concerns. This note was generated with [employer] software. It may contain incorrect words, spelling, and punctuation that were not noted in checking the note before signing.
== END 2019-06-12 23:59 ==
LOC: WC 11:00
PROVIDERS: Family Provider Internal Medicine; PCP Internal Medicine; Visit Provider Internal Medicine
DX: L97.312 Non-pressure chronic ulcer of right ankle with fat layer exposed (principal); Z98.890 Other specified postprocedural states; M79.89 Other specified soft tissue disorders
CPT/HCPCS: 15271; 97607; Q4133

== ENCOUNTER 2019-07-11 09:15 | Outpatient (RCR) | payer MEDICARE, SELFPAY ==
[2019-06-13 00:57] VITALS: BP 107/71; PULSE 97; RESP 18; TEMP 36.2
[2019-06-20 10:41] VITALS: BP 121/66; PULSE 93; RESP 18; TEMP 36.3; BMI 27.6
--- NOTE | 2019-06-20 11:08 | PCM.WC.PN ---
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 (2) Status post hardware removal Status: Acute Current Visit: Yes Code(s): Z98.890 - Other specified postprocedural states (3) Exposed orthopaedic hardware Status: Acute Current Visit: No Code(s): T84.498A - Other mechanical complication of other internal orthopedic devices, implants and grafts, initial encounter Type of Wound Date of Service: 06/20/19 Chief Complaint: Right ankle ulcer secondary to exposed hardware. History of Wound: Mr. Lucio is an 83-year-old who was referred to the wound center due to right ankle ulcer. Symptoms started 2 weeks ago with redness and swelling noted around the area. Was seen at the emergency room, imaging done with no significant concern. He was started on antibiotics due to mild purulent drainage noted and patient was subsequently referred here. Had right ankle surgery in 1992 and has been doing well since then. Had hardware removed by Dr. Diop 04/24/19 and a wound vac placed. Progress of Wound: Has had 5 applications of Grafix so far. No new concerns at this time. - Physical Exam Vital Signs Temp Pulse Resp BP 97.3 F L 93 18 121/66 H 06/20/19 10:41 06/20/19 10:41 06/20/19 10:41 06/20/19 10:41 General: Alert, Oriented x3, Cooperative, No apparent distress HEENT: Atraumatic, Normocephalic Oral: Moist Mucosa Neck: Supple Lungs: Normal air movement Extremities: No cyanosis Skin: Ulcer/ Wound Wound Measurements and Assessment WC - Nurse 1 - General Ulcer Measurement Start: 06/20/19 10:34 Freq: Status: Active Protocol: Activity Type Activity Date Activity User E-Sign Co-Sign Detail Recorded Client Recorded Date Recorded By Document 06/20/19 10:41 MO [id number] 06/20/19 10:43 MO 06/20/19 10:41 Wound Center Nurse 1 [Ulcer Assessment] #1 R Lat Ankle -Current Size (cm) - Length 7.9 -Current Size (cm) - Width 1.0 -Current Size (cm) - Depth 0.2 -Total Square Cm 7.90 -Exudate Amt Small -Exudate Type Serosanguineous -Wound Margin Flat & Intact -Granulation Amt Medium (34-66%) -Granulation Quality Pale,[place] -Necrosis Amt Medium (34-66%) -Necrotic Tissue Type Adherent Slough -Texture (Martha-wound Skin Appearance) Assessed -Moisture (Martha-wound Skin Appearance Assessed, ) Maceration -Color (Martha-wound Skin Appearance) Assessed -Temperature (Martha-wound Skin No Abnormality Appearance) (Pt Warm) -Tenderness on Palpation (Martha-wound No Skin Appearance) -Ulcer Cleansing Rinsed/ Irrigated with Saline -Foul Odor after Cleansing No -Anesthetic Used 5% Lidocaine Gel [Edema Assessment] -Right Calf (cm) 35 -Right Ankle (cm) 19.5 WC - Nurse 2 - General Ulcer CM Notes Start: 06/20/19 10:34 Freq: Status: Active Protocol: Activity Type Activity Date Activity User E-Sign Co-Sign Detail Recorded Client Recorded Date Recorded By Document 06/20/19 10:53 MW [id number] 06/20/19 11:02 MW 06/20/19 10:53 Wound Center Nurse 2 [Procedure/Treatment] #1 R Lat Ankle -Time 10:54 -Correct Patient Yes -Correct Side, Site, Position Yes -Correct Procedure Yes -Procedure Performed Yes -Type of Procedure Debridement -Clinical Debridement Subcutaneous -Post Debridement Size (cm) - Length 7.0 -Post Debridement Size (cm) - Width 0.8 -Post Debridement Size (cm) - Depth 0.2 -Total Square Cm 5.60 -Wound/Ulcer Outcome Not Healed -Ulcer Cleansing Rinsed/ Irrigated with Saline -Foul Odor after Cleansing No -Bioengineered Tissue Yes -Type of bioengineered Tissue GRAFIX-Pime -Expiration Date 04/17/20 -Product Lot Number [id number] -Percent Used 100 -Saline Lot Number [id number] -Bleeding Controlled with Pressure -Offloading No -Treatment Response Procedure Tolerated Well [See Physician Procedure note for Specifics] Pain Scale: 0-10 Numeric [Pain] -Is Patient Pain Free? Yes Musculoskeletal: No Muscle Wasting Neurological: Cranial nerves II-XII grossly intact Psych/Mental Status: Normal Affect Debridement Note Post-Debridement Measurements/Treatment WC - Nurse 2 - General Ulcer CM Notes Start: 06/20/19 10:34 Freq: Status: Active Protocol: Activity Type Activity Date Activity User E-Sign Co-Sign Detail Recorded Client Recorded Date Recorded By Document 06/20/19 10:53 MW [id number] 06/20/19 11:02 MW 06/20/19 10:53 Wound Center Nurse 2 #1 R Lat Ankle -Time 10:54 -Correct Patient Yes -Correct Side, Site, Position Yes -Correct Procedure Yes -Procedure Performed Yes -Type of Procedure Debridement -Clinical Debridement Subcutaneous -Post Debridement Size (cm) - Length 7.0 -Post Debridement Size (cm) - Width 0.8 -Post Debridement Size (cm) - Depth 0.2 -Total Square Cm 5.60 -Wound/Ulcer Outcome Not Healed -Ulcer Cleansing Rinsed/ Irrigated with Saline -Foul Odor after Cleansing No -Bioengineered Tissue Yes -Type of bioengineered Tissue GRAFIX-Pime -Expiration Date 04/17/20 -Product Lot Number [id number] -Percent Used 100 -Saline Lot Number [id number] -Bleeding Controlled with Pressure -Offloading No -Treatment Response Procedure Tolerated Well Pain Scale: 0-10 Numeric Is Patient Pain Free? Yes Wound debrided: Right Lower extremity Wound Grade/Stage: Stage III Type of Debridement: Excisional debridement Anesthesia Used: 4% Lidocaine Solution Depth: Down to and including healthy tissue, in the subcutaneous layer Percentage of wound debrided: 100 Instrument Used: 3mm curette Tissue Removed: Slough and devitalized tissue Severity: Fat Layer Exposed Amount of bleeding with debridement: Mild Bleeding Controlled with: Pressure Patient tolerated procedure well Assessment/Plan Active Problems (Last Reviewed 04/16/19 @ 10:48 by Thompson Diggs MD) Ulcer of right ankle (Chronic) Exposed bone. Status post hardware removal (Acute) Assessment: Ulcer of right ankle with exposed bone. Status post hardware removal Plan: Debridement done as documented above, procedure was well-tolerated. 6th application of Grafix done today using 100% of product. Moistened with saline wound veil over top and secured with Steri-Strips. Double layer tubigrip fpor edema management. Elevate lower extremities when seated and in bed. Increased protein intake also recommended. Follow-up in 1 week. All his questions were answered and he was advised to call with any further questions or concerns. This note was generated with [employer] software. It may contain incorrect words, spelling, and punctuation that were not noted in checking the note before signing.
[2019-06-27 09:41] VITALS: BP 97/61; PULSE 90; RESP 18; TEMP 36.1; BMI 27.6
--- NOTE | 2019-06-27 10:11 | PCM.WC.PN ---
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 (2) Status post hardware removal Status: Acute Current Visit: Yes Code(s): Z98.890 - Other specified postprocedural states (3) Exposed orthopaedic hardware Status: Acute Current Visit: No Code(s): T84.498A - Other mechanical complication of other internal orthopedic devices, implants and grafts, initial encounter Type of Wound Date of Service: 06/27/19 Chief Complaint: Right ankle ulcer secondary to exposed hardware. History of Wound: Mr. Lucio is an 83-year-old who was referred to the wound center due to right ankle ulcer. Symptoms started 2 weeks ago with redness and swelling noted around the area. Was seen at the emergency room, imaging done with no significant concern. He was started on antibiotics due to mild purulent drainage noted and patient was subsequently referred here. Had right ankle surgery in 1992 and has been doing well since then. Had hardware removed by Dr. Diop 04/24/19 and a wound vac placed. Progress of Wound: Has had 6 applications of Grafix so far. No new concerns at this time. - Physical Exam Vital Signs Temp Pulse Resp BP 97 F L 90 18 97/61 06/27/19 09:41 06/27/19 09:41 06/27/19 09:41 06/27/19 09:41 General: Alert, Oriented x3, Cooperative, No apparent distress HEENT: Atraumatic, Normocephalic Oral: Moist Mucosa Neck: Supple Lungs: Normal air movement Extremities: No cyanosis Skin: Ulcer/ Wound Wound Measurements and Assessment WC - Nurse 1 - General Ulcer Measurement Start: 06/20/19 10:34 Freq: Status: Active Protocol: Activity Type Activity Date Activity User E-Sign Co-Sign Detail Recorded Client Recorded Date Recorded By Document 06/27/19 09:41 RB [id number] 06/27/19 09:45 RB 06/27/19 09:41 Wound Center Nurse 1 [Ulcer Assessment] #1 R Lat Ankle -Combined with other wound No -Current Size (cm) - Length 6.5 -Current Size (cm) - Width 1 -Current Size (cm) - Depth 0.2 -Total Square Cm 6.5 -Photo Taken No -Tunneling No -Undermining/Tunneling No -Circular Undermining No -Exudate Amt Small -Exudate Type Serosanguineous -Wound Margin Distinct, Outline Attached -Granulation Amt Small (1-33%) -Granulation Quality [place] -Necrosis Amt Medium (34-66%) -Necrotic Tissue Type Adherent Slough -Structure Exposed N/A -Texture (Martha-wound Skin Appearance) Assessed -Moisture (Martha-wound Skin Appearance Assessed,Dry/ ) Scaly -Color (Martha-wound Skin Appearance) Assessed -Temperature (Martha-wound Skin No Abnormality Appearance) (Pt Warm) -Tenderness on Palpation (Martha-wound No Skin Appearance) -Ulcer Cleansing Wound Cleanser -Foul Odor after Cleansing No -Anesthetic Used 5% Lidocaine Gel [Edema Assessment] -Lower Limb Edema Present Yes -Right Calf (cm) 33 -Right Ankle (cm) 20 WC - Nurse 2 - General Ulcer CM Notes Start: 06/20/19 10:34 Freq: Status: Active Protocol: Activity Type Activity Date Activity User E-Sign Co-Sign Detail Recorded Client Recorded Date Recorded By Document 06/27/19 10:05 AN [id number] 06/27/19 10:08 AN 06/27/19 10:05 Wound Center Nurse 2 [Procedure/Treatment] #1 R Lat Ankle -Time 10:07 -Correct Patient Yes -Correct Side, Site, Position Yes -Correct Procedure Yes -Procedure Performed Yes -Type of Procedure Debridement -Clinical Debridement Subcutaneous -Post Debridement Size (cm) - Length 5.5 -Post Debridement Size (cm) - Width 0.8 -Post Debridement Size (cm) - Depth 0.2 -Total Square Cm 4.40 -Wound/Ulcer Outcome Not Healed -Ulcer Cleansing Rinsed/ Irrigated with Saline -Foul Odor after Cleansing No -Bioengineered Tissue Yes -Type of bioengineered Tissue GRAFIX-Pime -Expiration Date 04/17/20 -Product Lot Number [id number] -Percent Used 100 -Bleeding Controlled with Pressure -Offloading No -Treatment Response Procedure Tolerated Well [See Physician Procedure note for Specifics] Pain Scale: 0-10 Numeric [Pain] -Is Patient Pain Free? Yes Neurological: Cranial nerves II-XII grossly intact Psych/Mental Status: Normal Affect Debridement Note Post-Debridement Measurements/Treatment WC - Nurse 2 - General Ulcer CM Notes Start: 06/20/19 10:34 Freq: Status: Active Protocol: Activity Type Activity Date Activity User E-Sign Co-Sign Detail Recorded Client Recorded Date Recorded By Document 06/20/19 10:53 MW [id number] 06/20/19 11:02 MW Document 06/27/19 10:05 AN [id number] 06/27/19 10:08 AN 06/20/19 06/27/19 10:53 10:05 Wound Center Nurse 2 #1 R Lat Ankle -Time 10:54 10:07 -Correct Patient Yes Yes -Correct Side, Site, Position Yes Yes -Correct Procedure Yes Yes -Procedure Performed Yes Yes -Type of Procedure Debridement Debridement -Clinical Debridement Subcutaneous Subcutaneous -Post Debridement Size (cm) - Length 7.0 5.5 -Post Debridement Size (cm) - Width 0.8 0.8 -Post Debridement Size (cm) - Depth 0.2 0.2 -Total Square Cm 5.60 4.40 -Wound/Ulcer Outcome Not Healed Not Healed -Ulcer Cleansing Rinsed/ Rinsed/ Irrigated with Irrigated with Saline Saline -Foul Odor after Cleansing No No -Bioengineered Tissue Yes Yes -Type of bioengineered Tissue GRAFIX-Pime GRAFIX-Pime -Expiration Date 04/17/20 04/17/20 -Product Lot Number [id number] -Percent Used 100 100 -Saline Lot Number [id number] -Bleeding Controlled with Pressure Pressure -Offloading No No -Treatment Response Procedure Procedure Tolerated Well Tolerated Well Pain Scale: 0-10 Numeric Is Patient Pain Free? Yes Yes Wound debrided: Right lower extremity Wound Grade/Stage: Stage III Type of Debridement: Excisional debridement Anesthesia Used: 4% Lidocaine Solution Depth: Down to and including healthy tissue, in the subcutaneous layer Percentage of wound debrided: 100 Instrument Used: 7mm curette Tissue Removed: Slough and devitalized tissue Severity: Fat Layer Exposed Amount of bleeding with debridement: Mild Bleeding Controlled with: Pressure Patient tolerated procedure well Assessment/Plan Active Problems (Last Reviewed 04/16/19 @ 10:48 by Thompson Diggs MD) Ulcer of right ankle (Chronic) Exposed bone. Status post hardware removal (Acute) Assessment: Ulcer of right ankle with exposed bone. Status post hardware removal Plan: Improving. Debridement done as documented above, procedure was well-tolerated. 7th application of Grafix done today using 100% of product. Moistened with saline and adaptic touch over top. Double layer tubigrip por edema management. Elevate lower extremities when seated and in bed. Increased protein intake also recommended. Follow-up in 1 week. All his questions were answered and he was advised to call with any further questions or concerns. This note was generated with [employer] dictation software. It may contain incorrect words, spelling, and punctuation that were not noted in checking the note before signing.
[2019-07-04 10:39] VITALS: BP 90/56; PULSE 94; RESP 18; TEMP 35.9; BMI 27.6
--- NOTE | 2019-07-04 11:35 | PCM.WC.PN ---
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 (2) Status post hardware removal Status: Acute Current Visit: Yes Code(s): Z98.890 - Other specified postprocedural states (3) Exposed orthopaedic hardware Status: Acute Current Visit: No Code(s): T84.498A - Other mechanical complication of other internal orthopedic devices, implants and grafts, initial encounter Type of Wound Date of Service: 07/04/19 Chief Complaint: Right ankle ulcer secondary to exposed hardware. History of Wound: Mr. Lucio is an 83-year-old who was referred to the wound center due to right ankle ulcer. Symptoms started 2 weeks ago with redness and swelling noted around the area. Was seen at the emergency room, imaging done with no significant concern. He was started on antibiotics due to mild purulent drainage noted and patient was subsequently referred here. Had right ankle surgery in 1992 and has been doing well since then. Had hardware removed by Dr. Diop 04/24/19 and a wound vac placed. Progress of Wound: Has had 7 applications of Grafix so far. Significnat improvement in the past week. - Physical Exam Vital Signs Temp Pulse Resp BP 96.6 F L 94 18 90/56 L 07/04/19 10:39 07/04/19 10:39 07/04/19 10:39 07/04/19 10:39 General: Alert, Oriented x3, Cooperative, No apparent distress HEENT: Atraumatic, Normocephalic Oral: Moist Mucosa Neck: Supple Lungs: Normal air movement Extremities: No cyanosis Skin: Ulcer/ Wound Wound Measurements and Assessment WC - Nurse 1 - General Ulcer Measurement Start: 06/20/19 10:34 Freq: Status: Active Protocol: Activity Type Activity Date Activity User E-Sign Co-Sign Detail Recorded Client Recorded Date Recorded By Document 07/04/19 10:39 TIMBO [id number] 07/04/19 10:41 RB 07/04/19 10:39 Wound Center Nurse 1 [Ulcer Assessment] #1 R Lat Ankle -Combined with other wound No -Current Size (cm) - Length 8.1 -Current Size (cm) - Width 1.1 -Current Size (cm) - Depth 0.1 -Total Square Cm 8.91 -Tunneling No -Undermining/Tunneling No -Circular Undermining No -Exudate Amt Small -Exudate Type Serosanguineous -Wound Margin Flat & Intact -Granulation Amt Large (67-100%) -Granulation Quality [place] -Slough/Fibrin Yes -Necrosis Amt Small (1-33%) -Necrotic Tissue Type Adherent Slough -Structure Exposed N/A -Texture (Martha-wound Skin Appearance) Assessed, Scarring -Moisture (Martha-wound Skin Appearance Assessed ) -Color (Martha-wound Skin Appearance) Assessed -Temperature (Martha-wound Skin No Abnormality Appearance) (Pt Warm) -Tenderness on Palpation (Martha-wound No Skin Appearance) -Ulcer Cleansing Wound Cleanser -Foul Odor after Cleansing No -Anesthetic Used 5% Lidocaine Gel [Edema Assessment] -Lower Limb Edema Present Yes -Right Calf (cm) 33.6 -Right Ankle (cm) 20.5 WC - Nurse 2 - General Ulcer CM Notes Start: 06/20/19 10:34 Freq: Status: Active Protocol: Activity Type Activity Date Activity User E-Sign Co-Sign Detail Recorded Client Recorded Date Recorded By Document 07/04/19 11:05 MW [id number] 07/04/19 11:14 MW 07/04/19 11:05 Wound Center Nurse 2 [Procedure/Treatment] #1 R Lat Ankle -Time 11:05 -Correct Patient Yes -Correct Side, Site, Position Yes -Correct Procedure Yes -Procedure Performed Yes -Type of Procedure Debridement -Clinical Debridement Subcutaneous -Post Debridement Size (cm) - Length 1.8 -Post Debridement Size (cm) - Width 0.4 -Post Debridement Size (cm) - Depth 0.1 -Total Square Cm 0.72 -Wound/Ulcer Outcome Not Healed -Ulcer Cleansing Rinsed/ Irrigated with Saline -Foul Odor after Cleansing No -Bioengineered Tissue Yes -Type of bioengineered Tissue GRAFIX-Pime -Expiration Date 04/17/20 -Product Lot Number [id number] -Percent Used 100 -Saline Lot Number [id number] -Bleeding Controlled with Pressure -Offloading No -Treatment Response Procedure Tolerated Well [See Physician Procedure note for Specifics] Pain Scale: 0-10 Numeric [Pain] -Is Patient Pain Free? Yes Musculoskeletal: No Muscle Wasting Neurological: Cranial nerves II-XII grossly intact Psych/Mental Status: Normal Affect Debridement Note Post-Debridement Measurements/Treatment WC - Nurse 2 - General Ulcer CM Notes Start: 06/20/19 10:34 Freq: Status: Active Protocol: Activity Type Activity Date Activity User E-Sign Co-Sign Detail Recorded Client Recorded Date Recorded By Document 06/20/19 10:53 MW [id number] 06/20/19 11:02 MW Document 06/27/19 10:05 AN [id number] 06/27/19 10:08 AN Document 07/04/19 11:05 MW [id number] 07/04/19 11:14 MW 06/20/19 06/27/19 07/04/19 10:53 10:05 11:05 Wound Center Nurse 2 #1 R Lat Ankle -Time 10:54 10:07 11:05 -Correct Patient Yes Yes Yes -Correct Side, Site, Position Yes Yes Yes -Correct Procedure Yes Yes Yes -Procedure Performed Yes Yes Yes -Type of Procedure Debridement Debridement Debridement -Clinical Debridement Subcutaneous Subcutaneous Subcutaneous -Post Debridement Size (cm) - Length 7.0 5.5 1.8 -Post Debridement Size (cm) - Width 0.8 0.8 0.4 -Post Debridement Size (cm) - Depth 0.2 0.2 0.1 -Total Square Cm 5.60 4.40 0.72 -Wound/Ulcer Outcome Not Healed Not Healed Not Healed -Ulcer Cleansing Rinsed/ Rinsed/ Rinsed/ Irrigated with Irrigated with Irrigated with Saline Saline Saline -Foul Odor after Cleansing No No No -Bioengineered Tissue Yes Yes Yes -Type of bioengineered Tissue GRAFIX-Pime GRAFIX-Pime GRAFIX-Pime -Expiration Date 04/17/20 04/17/20 04/17/20 -Product Lot Number [id number] -Percent Used 100 100 100 -Saline Lot Number [id number] -Bleeding Controlled with Pressure Pressure Pressure -Offloading No No No -Treatment Response Procedure Procedure Procedure Tolerated Well Tolerated Well Tolerated Well Pain Scale: 0-10 Numeric Is Patient Pain Free? Yes Yes Yes Wound debrided: Right lower extremity Wound Grade/Stage: Stage III Type of Debridement: Excisional debridement Anesthesia Used: 4% Lidocaine Solution Depth: Down to and including healthy tissue, in the subcutaneous layer Percentage of wound debrided: 100 Instrument Used: 3mm curette Tissue Removed: Slough and devitalized tissue Severity: Fat Layer Exposed Amount of bleeding with debridement: Mild Bleeding Controlled with: Pressure Patient tolerated procedure well Assessment/Plan Active Problems (Last Reviewed 04/16/19 @ 10:48 by Thompson Diggs MD) Ulcer of right ankle (Chronic) Exposed bone. Status post hardware removal (Acute) Assessment: Ulcer of right ankle with exposed bone. Status post hardware removal Plan: Improving. Debridement done as documented above, procedure was well-tolerated. 8th application of Grafix done today using 100% of product. Moistened with saline and adaptic touch over top. Double layer tubigrip por edema management. Elevate lower extremities when seated and in bed. Increased protein intake also recommended. Follow-up in 1 week. All his questions were answered and he was advised to call with any further questions or concerns. This note was generated with [employer] dictation software. It may contain incorrect words, spelling, and punctuation that were not noted in checking the note before signing.
[2019-07-11 09:10] VITALS: BP 106/72; PULSE 92; RESP 18; TEMP 36.4; BMI 27.6
--- NOTE | 2019-07-11 09:52 | PCM.WC.PN ---
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 (2) Status post hardware removal Status: Acute Current Visit: Yes Code(s): Z98.890 - Other specified postprocedural states (3) Exposed orthopaedic hardware Status: Acute Current Visit: No Code(s): T84.498A - Other mechanical complication of other internal orthopedic devices, implants and grafts, initial encounter Type of Wound Date of Service: 07/11/19 Chief Complaint: Right ankle ulcer secondary to exposed hardware. History of Wound: Mr. Lucio is an 83-year-old who was referred to the wound center due to right ankle ulcer. Symptoms started 2 weeks ago with redness and swelling noted around the area. Was seen at the emergency room, imaging done with no significant concern. He was started on antibiotics due to mild purulent drainage noted and patient was subsequently referred here. Had right ankle surgery in 1992 and has been doing well since then. Had hardware removed by Dr. Diop 04/24/19 and a wound vac placed. Progress of Wound: Has had 8 applications of Grafix so far. Minimal area left. Lots of scabbing. - Physical Exam Vital Signs Temp Pulse Resp BP 97.6 F L 92 18 106/72 07/11/19 09:10 07/11/19 09:10 07/11/19 09:10 07/11/19 09:10 General: Alert, Oriented x3, Cooperative, No apparent distress HEENT: Atraumatic, Normocephalic Oral: Moist Mucosa Neck: Supple Lungs: Normal air movement Extremities: No cyanosis Skin: Ulcer/ Wound Wound Measurements and Assessment WC - Nurse 1 - General Ulcer Measurement Start: 06/20/19 10:34 Freq: Status: Active Protocol: Activity Type Activity Date Activity User E-Sign Co-Sign Detail Recorded Client Recorded Date Recorded By Document 07/11/19 09:10 TIMBO [id number] 07/11/19 09:13 RB 07/11/19 09:10 Wound Center Nurse 1 [Ulcer Assessment] #1 R Lat Ankle -Combined with other wound No -Current Size (cm) - Length 7.5 -Current Size (cm) - Width 0.5 -Current Size (cm) - Depth 0.1 -Total Square Cm 3.75 -Tunneling No -Undermining/Tunneling No -Circular Undermining No -Exudate Amt Small -Exudate Type Serosanguineous -Wound Margin Flat & Intact -Granulation Amt Small (1-33%) -Granulation Quality [place] -Slough/Fibrin Yes -Necrosis Amt Medium (34-66%) -Necrotic Tissue Type Adherent Slough -Structure Exposed N/A -Texture (Martha-wound Skin Appearance) Assessed, Scarring -Moisture (Martha-wound Skin Appearance Assessed ) -Color (Martha-wound Skin Appearance) Assessed -Temperature (Martha-wound Skin No Abnormality Appearance) (Pt Warm) -Tenderness on Palpation (Matrha-wound No Skin Appearance) -Ulcer Cleansing Wound Cleanser -Foul Odor after Cleansing No -Anesthetic Used 5% Lidocaine Gel [Edema Assessment] -Lower Limb Edema Present Yes -Right Calf (cm) 34 -Right Ankle (cm) 20.7 WC - Nurse 2 - General Ulcer CM Notes Start: 06/20/19 10:34 Freq: Status: Active Protocol: Activity Type Activity Date Activity User E-Sign Co-Sign Detail Recorded Client Recorded Date Recorded By Document 07/11/19 09:44 MW [id number] 07/11/19 09:50 MW 07/11/19 09:44 Wound Center Nurse 2 [Procedure/Treatment] #1 R Lat Ankle -Time 09:44 -Correct Patient Yes -Correct Side, Site, Position Yes -Correct Procedure Yes -Procedure Performed Yes -Type of Procedure Debridement -Clinical Debridement Selective -Post Debridement Size (cm) - Length 0.1 -Post Debridement Size (cm) - Width 0.1 -Post Debridement Size (cm) - Depth 0.1 -Total Square Cm 0.01 -Wound/Ulcer Outcome Not Healed -Ulcer Cleansing Rinsed/ Irrigated with Saline -Foul Odor after Cleansing No -Bioengineered Tissue No -Bleeding Controlled with Pressure -Offloading No -Treatment Response Procedure Tolerated Well [See Physician Procedure note for Specifics] Pain Scale: 0-10 Numeric [Pain] -Is Patient Pain Free? Yes Musculoskeletal: No Muscle Wasting Neurological: Cranial nerves II-XII grossly intact Psych/Mental Status: Normal Affect Debridement Note Post-Debridement Measurements/Treatment WC - Nurse 2 - General Ulcer CM Notes Start: 06/20/19 10:34 Freq: Status: Active Protocol: Activity Type Activity Date Activity User E-Sign Co-Sign Detail Recorded Client Recorded Date Recorded By Document 06/20/19 10:53 MW [id number] 06/20/19 11:02 MW Document 06/27/19 10:05 AN [id number] 06/27/19 10:08 AN Document 07/04/19 11:05 MW [id number] 07/04/19 11:14 MW Document 07/11/19 09:44 MW [id number] 07/11/19 09:50 MW 06/20/19 06/27/19 07/04/19 10:53 10:05 11:05 Wound Center Nurse 2 #1 R Lat Ankle -Time 10:54 10:07 11:05 -Correct Patient Yes Yes Yes -Correct Side, Site, Position Yes Yes Yes -Correct Procedure Yes Yes Yes -Procedure Performed Yes Yes Yes -Type of Procedure Debridement Debridement Debridement -Clinical Debridement Subcutaneous Subcutaneous Subcutaneous -Post Debridement Size (cm) - Length 7.0 5.5 1.8 -Post Debridement Size (cm) - Width 0.8 0.8 0.4 -Post Debridement Size (cm) - Depth 0.2 0.2 0.1 -Total Square Cm 5.60 4.40 0.72 -Wound/Ulcer Outcome Not Healed Not Healed Not Healed -Ulcer Cleansing Rinsed/ Rinsed/ Rinsed/ Irrigated with Irrigated with Irrigated with Saline Saline Saline -Foul Odor after Cleansing No No No -Bioengineered Tissue Yes Yes Yes -Type of bioengineered Tissue GRAFIX-Pime GRAFIX-Pime GRAFIX-Pime -Expiration Date 04/17/20 04/17/20 04/17/20 -Product Lot Number [id number] -Percent Used 100 100 100 -Saline Lot Number [id number] -Bleeding Controlled with Pressure Pressure Pressure -Offloading No No No -Treatment Response Procedure Procedure Procedure Tolerated Well Tolerated Well Tolerated Well Pain Scale: 0-10 Numeric Is Patient Pain Free? Yes Yes Yes 07/11/19 09:44 Wound Center Nurse 2 #1 R Lat Ankle -Time 09:44 -Correct Patient Yes -Correct Side, Site, Position Yes -Correct Procedure Yes -Procedure Performed Yes -Type of Procedure Debridement -Clinical Debridement Selective -Post Debridement Size (cm) - Length 0.1 -Post Debridement Size (cm) - Width 0.1 -Post Debridement Size (cm) - Depth 0.1 -Total Square Cm 0.01 -Wound/Ulcer Outcome Not Healed -Ulcer Cleansing Rinsed/ Irrigated with Saline -Foul Odor after Cleansing No -Bioengineered Tissue No -Type of bioengineered Tissue -Expiration Date -Product Lot Number -Percent Used -Saline Lot Number -Bleeding Controlled with Pressure -Offloading No -Treatment Response Procedure Tolerated Well Pain Scale: 0-10 Numeric Is Patient Pain Free? Yes Wound debrided: Right lower extremity Type of Debridement: Selective debridement Anesthesia Used: 4% Lidocaine Solution Depth: Down to and including healthy tissue Percentage of wound debrided: 100 Instrument Used: 3mm curette Tissue Removed: Devitalized tissue Severity: Limited To Skin Breakdown Amount of bleeding with debridement: Mild Bleeding Controlled with: Pressure Patient tolerated procedure well Assessment/Plan Active Problems (Last Reviewed 04/16/19 @ 10:48 by Thompson Diggs MD) Ulcer of right ankle (Chronic) Exposed bone. Status post hardware removal (Acute) Assessment: Ulcer of right ankle with exposed bone. Status post hardware removal Plan: Minimal area left. Debridement done as documented above, procedure was well-tolerated. Significant scabbing noted. Minimal skin tear. Moistened pomogram with adaptic over top. Change every other day due to convinience. Unable to change it himself and would have his daughter help. Also advised o mosturize with aquaphor generously. Double layer tubigrip for edema management. Elevate lower extremities when seated and in bed. Increased protein intake also recommended. Follow-up in 1 week. All his questions were answered and he was advised to call with any further questions or concerns. This note was generated with [employer] software. It may contain incorrect words, spelling, and punctuation that were not noted in checking the note before signing.
== END 2019-07-13 23:59 ==
LOC: WC 09:15
PROVIDERS: Family Provider Internal Medicine; PCP Internal Medicine; Visit Provider Internal Medicine
DX: L97.312 Non-pressure chronic ulcer of right ankle with fat layer exposed (principal); M79.89 Other specified soft tissue disorders; Z98.890 Other specified postprocedural states; T84.498S Other mechanical complication of other internal orthopedic devices, implants and grafts, sequela; Y83.8 Other surgical procedures as the cause of abnormal reaction of the patient, or of later complication, without mention of misadventure at the time of the procedure; L97.311 Non-pressure chronic ulcer of right ankle limited to breakdown of skin
CPT/HCPCS: 15271; 97597; Q4132; Q4133

== ENCOUNTER 2019-07-12 09:15 | Outpatient (RCR) | payer MEDICARE, SELFPAY ==
[2019-06-13 00:54] VITALS: BP 100/57; BP 90/60
--- NOTE | 2019-06-26 07:20 | CR.ITP_ITS ---
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 Maintain the individual as the primary focus of care. 2. To improve the patient's quality of life. 3. Identification of cardiac risk factors and provide cardiac risk factor management. 4. Enhance the psychosocial status of the patient. 5. Reconditioning enough to allow the jd ent to resume customary activities. 6. Control symptoms of cardiac disease Scale for measuring improvement of personal goals: Enter appropriate number in Comments. 2 = Unchanged. 3 = Slightly Better. 4 = Moderate Improvement. 5 = Met my Goal Exercise - 90-Day Assessment - Visit Date of Eval: 06/26/19 Session #:: 29 - Stages of Change Stages of Change:: Action - Physician Prescribed Exercise Modalities: NuStep, SciFit Frequency (days/week): 3 Duration (Minutes):: 30-45 Intensity: 60-80% age predicted maximum heart rate reserve METs - Progression: 0.5-1.0 MET, RPE 11-14 WEEK: 3 Target Heart Rate:: 90-118 MAX HR 96 - Hypertension Resting Blood Pressure:: 106/62 Peak Exercise Blood Pressure:: 108/62 - Intervention Home Exercise/Activity Goal:: Sitting Time <3 hrs/day - Education Goals:: Warm-up, RPE JAI Scale, S/S, Safe Exercise, Self-Monitoring - Exercise Program Goals Exercise Program Goals: Aerobic Activity >30 min, B/P <130/80 Nutrition - Initial Assessment - Program Goals Nutrition Program Goals: LDL <70. Total Cholesterol <200. HDL >45. Triglycerides <150. HgbA1C <7%. BMI <25 - Diabetes Do you monitor your blood sugar at home?: No - IT'S NEVER OVER THE TOP SO I D ONT MONITOR IT EVERYDAY Nutrition - 90-Day Assessment - Program Goals Nutrition Program Goals: LDL <70. Total Cholesterol <200. HDL >45. Triglycerides <150. HgbA1C <7%. BMI <25 - Visit Date of Eval: 06/26/19 - Stages of Change Stages of Change:: Action - Intervention Referral to dietitian:: No Referral to Diabetic Clinic:: No Will attend diet classes:: Yes - Education Attended class for:: Signs & symptoms of hypoglycemia, Signs & symptoms of hyperglycemia, Relate diabetes to coronary artery disease, Healthy eating Tobacco - 90-Day Assessment - Program Goals Tobacco Program Goals: Complete smoking cessation. Attend education classes. Improve Knowledge Test score - Stage of Change Stages of Change:: Action - Learning Barriers Learning Barriers: Participates in education - Family Support Do you have family support?: Yes - Tobacco Use Tobacco Use: Non-smoker Do you use smokeless tobacco?: No - Intervention Smoking Cessation Referral:: No Individual Education/Counseling:: No Education Schedule Given:: Yes - Education Attended class for:: Treating Heart Disease, How The Heart Works, What it means to have Heart Disease, How Coronary Artery Disease is Diagnosed, Heart Procedures, What Heart Medications Do, Risk Factors & Modifications, Living an Active Life, Nutrition, Emotions & Heart Disease, Stress Management & Relaxation, Sleep Disorders & Heart Disease Psychosocial - Initial Assess - Target Goals Target Goals: Assess presence or absence of depression. Using a valid screening tool, maximizes coping skills. Positive support system - Psychosocial Test Tool Used:: HANDS Depression Questionnaire - Assistive Devices Fall Risk Assessed:: Yes Psychosocial - 90-Day Assess - Target Goals Target Goals: Assess presence or absence of depression. Using a valid screening tool, maximizes coping skills. Positive support system - Stages of Change Stages of Change:: Action - Psychosocial Test Tool Used:: HANDS Depression Questionnaire - Intervention PS - Interventions: Yes Attend Stress Management Classes, Yes Uses Stress Management Skills, No Referral to Mental Health, No Referral to [facility] Case Management, No Referral to Physician - Education Attended classes for:: Coping techniques, Signs & symptoms of depression, Stress management, Relaxation techniques - Assistive Devices Assistive Devices:: None Fall Risk Assessed:: Yes Patient Health Questionnaire 90-Day Re-eval Assessment 1. Little interest or pleasure in doing things: Not at all 2. Feeling down, depressed, or hopeless: Several days 3. Trouble falling or staying asleep, or sleeping too much: More than half the days 4. Feeling tired or having little energy: More than half the days 5. Poor appetite or overeating: Not at all 6. Feeling bad about yourself -- or that you are a failure or have let yourself or your family down: Not at all 7. Trouble concentrating on things, such as reading the newspaper or watching television: Not at all 8. Moving or speaking so slowly that other people could have noticed. Or the opposite - being so fidgety or restless that you have been moving around a lot more than usual: Not at all 9. Thoughts that you would be better off , or of hurting yourself in some way: Not at all How difficult have these problems made it for you to do your work, take care of things at home, or get along with other people?: Somewhat difficult Total Score: 5 Self-Efficacy 90-Day Re-eval Assessment We would like to know how confident you are in doing certain activities. Please select your confidence level for:: Select your confidence level for the following using the scale 1-10 where 1 is not at all confident and 10 is totally confident. Your score is the average of all 6 responses. Fatigue: How confident are you that you can keep the fatigue caused by your disease from interfering with the things you want to do? Select Number: 7 Physical Discomfort or Pain: How confident are you that you can keep the physical discomfort or pain of your disease from interfering with the things you want to do? Select Number: 10 Emotional Distress: How confident are you that you can keep the emotional distress caused by your disease from interfering with the things you want to do? Select Number: 9 Other Symptoms or Health Problems: How confident are you that you can keep other symptoms or health problems from interfering with the things you want to do? Select Number: 9 Different Tasks and Activities: How confident are you that you can do the different tasks and activities needed to manage your health condition so as to reduce your need to see a doctor? Select Number: 10 Medication: How confident are you that you can do things other than just taking medication to reduce how much your illness affects your everyday life? Select Number: 8 Total Score:: 8
[2019-06-26 07:25] VITALS: BP 106/62; BP 108/62
== END 2019-07-13 23:59 ==
LOC: CR 09:15
PROVIDERS: Family Provider Internal Medicine; PCP Internal Medicine; Referring Provider Internal Medicine Cardiovascular Disease; Visit Provider Internal Medicine Cardiovascular Disease
DX: I27.21 Secondary pulmonary arterial hypertension (principal); I11.0 Hypertensive heart disease with heart failure; I50.33 Acute on chronic diastolic (congestive) heart failure; I48.0 Paroxysmal atrial fibrillation; I77.1 Stricture of artery; I44.7 Left bundle-branch block, unspecified; I35.0 Nonrheumatic aortic (valve) stenosis; I25.10 Atherosclerotic heart disease of native coronary artery without angina pectoris; E78.5 Hyperlipidemia, unspecified; Z95.2 Presence of prosthetic heart valve; Z95.1 Presence of aortocoronary bypass graft
CPT/HCPCS: 93798

== ENCOUNTER 2019-08-01 09:30 | Outpatient (RCR) | payer MEDICARE, SELFPAY ==
[2019-07-14 00:48] VITALS: BP 106/72; PULSE 92; RESP 18; TEMP 36.4
[2019-07-18 10:39] VITALS: BP 131/71; PULSE 97; RESP 18; TEMP 35.8; BMI 27.6
--- NOTE | 2019-07-18 12:34 | PN.PCM_ITS ---
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 (2) Status post hardware removal Status: Acute Current Visit: Yes Code(s): Z98.890 - Other specified postprocedural states Type of Wound Date of Service: 07/18/19 Chief Complaint: Right ankle ulcer secondary to exposed hardware. History of Wound: Mr. Lucio is an 83-year-old who was referred to the wound center due to right ankle ulcer. Symptoms started 2 weeks ago with redness and swelling noted around the area. Was seen at the emergency room, imaging done with no significant concern. He was started on antibiotics due to mild purulent drainage noted and patient was subsequently referred here. Had right ankle surgery in 1992 and has been doing well since then. Had hardware removed by Dr. Diop 04/24/19 and a wound vac placed. Progress of Wound: Has had 8 applications of Grafix so far. No significant change in the past week. Held off Grafix due to minimal area. He denies any concerns. - Physical Exam Vital Signs Temp Pulse Resp BP 96.4 F L 97 18 131/71 H 07/18/19 10:39 07/18/19 10:39 07/18/19 10:39 07/18/19 10:39 General: Alert, Oriented x3, Cooperative, No apparent distress HEENT: Atraumatic, Normocephalic Oral: Moist Mucosa Neck: Supple Lungs: Normal air movement Extremities: No cyanosis Skin: Ulcer/ Wound Wound Measurements and Assessment WC - Nurse 1 - General Ulcer Measurement Start: 07/18/19 10:39 Freq: Status: Active Protocol: Activity Type Activity Date Activity User E-Sign Co-Sign Detail Recorded Client Recorded Date Recorded By Document 07/18/19 10:39 [id number] 07/18/19 10:41 RB 07/18/19 10:39 Wound Center Nurse 1 [Ulcer Assessment] #1 R Lat Ankle -Combined with other wound No -Current Size (cm) - Length 0.1 -Current Size (cm) - Width 0.1 -Current Size (cm) - Depth 0.1 -Total Square Cm 0.01 -Tunneling No -Undermining/Tunneling No -Circular Undermining No -Exudate Amt Small -Exudate Type Serosanguineous -Wound Margin Flat & Intact -Granulation Amt Large (67-100%) -Granulation Quality [place] -Slough/Fibrin Yes -Necrosis Amt Small (1-33%) -Necrotic Tissue Type Adherent Slough -Structure Exposed N/A -Texture (Martha-wound Skin Appearance) Assessed, Scarring -Moisture (Martha-wound Skin Appearance Assessed ) -Color (Martha-wound Skin Appearance) Assessed -Temperature (Martha-wound Skin No Abnormality Appearance) (Pt Warm) -Tenderness on Palpation (Martha-wound No Skin Appearance) -Ulcer Cleansing Wound Cleanser -Foul Odor after Cleansing No -Anesthetic Used 5% Lidocaine Gel [Edema Assessment] -Lower Limb Edema Present Yes -Right Calf (cm) 33.5 -Right Ankle (cm) 21 WC - Nurse 2 - General Ulcer CM Notes Start: 07/18/19 10:39 Freq: Status: Active Protocol: Activity Type Activity Date Activity User E-Sign Co-Sign Detail Recorded Client Recorded Date Recorded By Document 07/18/19 11:32 MW [id number] 07/18/19 11:38 MW 07/18/19 11:32 Wound Center Nurse 2 [Procedure/Treatment] #1 R Lat Ankle -Time 11:32 -Correct Patient Yes -Correct Side, Site, Position Yes -Correct Procedure Yes -Procedure Performed Yes -Type of Procedure Debridement -Clinical Debridement Subcutaneous -Post Debridement Size (cm) - Length 0.3 -Post Debridement Size (cm) - Width 0.4 -Post Debridement Size (cm) - Depth 0.1 -Total Square Cm 0.12 -Wound/Ulcer Outcome Not Healed -Ulcer Cleansing Rinsed/ Irrigated with Saline -Foul Odor after Cleansing No -Bioengineered Tissue Yes -Type of bioengineered Tissue GRAFIX-Pime -Expiration Date 03/17/20 -Product Lot Number [id number] -Percent Used 100 -Saline Lot Number [id number] -Bleeding Controlled with Pressure -Offloading No -Treatment Response Procedure Tolerated Well [See Physician Procedure note for Specifics] Pain Scale: 0-10 Numeric [Pain] -Is Patient Pain Free? Yes Musculoskeletal: No Muscle Wasting Neurological: Cranial nerves II-XII grossly intact Psych/Mental Status: Normal Affect Debridement Note Post-Debridement Measurements/Treatment WC - Nurse 2 - General Ulcer CM Notes Start: 07/18/19 10:39 Freq: Status: Active Protocol: Activity Type Activity Date Activity User E-Sign Co-Sign Detail Recorded Client Recorded Date Recorded By Document 07/18/19 11:32 MW [id number] 07/18/19 11:38 MW 07/18/19 11:32 Wound Center Nurse 2 #1 R Lat Ankle -Time 11:32 -Correct Patient Yes -Correct Side, Site, Position Yes -Correct Procedure Yes -Procedure Performed Yes -Type of Procedure Debridement -Clinical Debridement Subcutaneous -Post Debridement Size (cm) - Length 0.3 -Post Debridement Size (cm) - Width 0.4 -Post Debridement Size (cm) - Depth 0.1 -Total Square Cm 0.12 -Wound/Ulcer Outcome Not Healed -Ulcer Cleansing Rinsed/ Irrigated with Saline -Foul Odor after Cleansing No -Bioengineered Tissue Yes -Type of bioengineered Tissue GRAFIX-Pime -Expiration Date 03/17/20 -Product Lot Number [id number] -Percent Used 100 -Saline Lot Number [id number] -Bleeding Controlled with Pressure -Offloading No -Treatment Response Procedure Tolerated Well Pain Scale: 0-10 Numeric Is Patient Pain Free? Yes Wound debrided: Right ankle Wound Grade/Stage: Stage III Type of Debridement: Excisional debridement Anesthesia Used: 4% Lidocaine Solution Depth: Down to and including healthy tissue, in the subcutaneous layer Percentage of wound debrided: 100 Instrument Used: 3mm curette Tissue Removed: Slough and devitalized tissue Severity: Fat Layer Exposed Amount of bleeding with debridement: Mild Bleeding Controlled with: Pressure Patient tolerated procedure well Assessment/Plan Active Problems (Last Reviewed 04/16/19 @ 10:48 by Thompson Diggs MD) Ulcer of right ankle (Chronic) Exposed bone. Status post hardware removal (Acute) Assessment: Ulcer of right ankle with exposed bone. Status post hardware removal Plan: Debridement done as documented above, procedure was well-tolerated. Significant scabbing again noted. Not sure if they have been able to apply dressing as prescribed due to scabbing. 9th application of Grafix done today using 100% of product. Moistened with saline and Adaptic touch over top. Leave in place for a week. Double layer tubigrip for edema management. Elevate lower extremities when seated and in bed. Increased protein intake also recommended. Follow-up in 1 week. All his questions were answered and he was advised to call with any further questions or concerns. This note was generated with [employer] dictation software. It may contain incorrect words, spelling, and punctuation that were not noted in checking the note before signing.
[2019-07-25 08:20] VITALS: BP 101/58; PULSE 89; RESP 16; TEMP 36.2; BMI 27.6
--- NOTE | 2019-07-25 08:41 | PCM.WC.PN ---
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 (2) Status post hardware removal Status: Acute Current Visit: Yes Code(s): Z98.890 - Other specified postprocedural states Type of Wound Date of Service: 07/25/19 Chief Complaint: Right ankle ulcer secondary to exposed hardware. History of Wound: Mr. Lucio is an 83-year-old who was referred to the wound center due to right ankle ulcer. Symptoms started 2 weeks ago with redness and swelling noted around the area. Was seen at the emergency room, imaging done with no significant concern. He was started on antibiotics due to mild purulent drainage noted and patient was subsequently referred here. Had right ankle surgery in 1992 and has been doing well since then. Had hardware removed by Dr. Diop 04/24/19 and a wound vac placed. Progress of Wound: Has had 9 applications of Grafix so far. Minimal area left. less scabbing noted this week. - Physical Exam Vital Signs Temp Pulse Resp BP 97.1 F L 89 16 101/58 L 07/25/19 08:20 07/25/19 08:20 07/25/19 08:20 07/25/19 08:20 General: Alert, Oriented x3, Cooperative, No apparent distress HEENT: Atraumatic, Normocephalic Oral: Moist Mucosa Neck: Supple Lungs: Normal air movement Extremities: No cyanosis Skin: Ulcer/ Wound Wound Measurements and Assessment WC - Nurse 1 - General Ulcer Measurement Start: 07/18/19 10:39 Freq: Status: Active Protocol: Activity Type Activity Date Activity User E-Sign Co-Sign Detail Recorded Client Recorded Date Recorded By Document 07/25/19 08:20 MW [id number] 07/25/19 08:27 MW 07/25/19 08:20 Wound Center Nurse 1 [Ulcer Assessment] #1 R Lat Ankle -Combined with other wound No -Current Size (cm) - Length 0.1 -Current Size (cm) - Width 0.1 -Current Size (cm) - Depth 0.1 -Total Square Cm 0.01 -Photo Taken No -Epithelialization Small 1-33% -Tunneling No -Undermining/Tunneling No -Circular Undermining No -Exudate Amt None Present -Wound Margin Flat & Intact -Granulation Amt None Present (0 %) -Granulation Quality N/A -Slough/Fibrin Yes -Necrosis Amt Small (1-33%) -Necrotic Tissue Type Adherent Slough -Structure Exposed N/A -Texture (Martha-wound Skin Appearance) Assessed, Scarring -Moisture (Martha-wound Skin Appearance Assessed,Dry/ ) Scaly -Color (Martha-wound Skin Appearance) No Abnormality, Assessed -Temperature (Martha-wound Skin No Abnormality Appearance) (Pt Warm) -Tenderness on Palpation (Martha-wound Yes Skin Appearance) -Ulcer Cleansing soap and water -Foul Odor after Cleansing No -Anesthetic Used 5% Lidocaine Gel [Edema Assessment] -Lower Limb Edema Present Yes -Right Calf (cm) 32.5 -Right Ankle (cm) 19.2 WC - Nurse 2 - General Ulcer CM Notes Start: 07/18/19 10:39 Freq: Status: Active Protocol: Activity Type Activity Date Activity User E-Sign Co-Sign Detail Recorded Client Recorded Date Recorded By Document 07/25/19 08:29 MW [id number] 07/25/19 08:39 MW 07/25/19 08:29 Wound Center Nurse 2 [Procedure/Treatment] #1 R Lat Ankle -Time 08:31 -Correct Patient Yes -Correct Side, Site, Position Yes -Correct Procedure Yes -Procedure Performed Yes -Type of Procedure Debridement -Clinical Debridement Subcutaneous -Post Debridement Size (cm) - Length 0.1 -Post Debridement Size (cm) - Width 0.1 -Post Debridement Size (cm) - Depth 0.1 -Total Square Cm 0.01 -Wound/Ulcer Outcome Not Healed -Ulcer Cleansing Rinsed/ Irrigated with Saline -Foul Odor after Cleansing No -Bioengineered Tissue No -Bleeding Controlled with Pressure -Offloading No -Treatment Response Procedure Tolerated Well [See Physician Procedure note for Specifics] Pain Scale: 0-10 Numeric [Pain] -Is Patient Pain Free? Yes Neurological: Cranial nerves II-XII grossly intact Psych/Mental Status: Normal Affect Debridement Note Post-Debridement Measurements/Treatment WC - Nurse 2 - General Ulcer CM Notes Start: 07/18/19 10:39 Freq: Status: Active Protocol: Activity Type Activity Date Activity User E-Sign Co-Sign Detail Recorded Client Recorded Date Recorded By Document 07/18/19 11:32 MW [id number] 07/18/19 11:38 MW Document 07/25/19 08:29 MW [id number] 07/25/19 08:39 MW 07/18/19 07/25/19 11:32 08:29 Wound Center Nurse 2 #1 R Lat Ankle -Time 11:32 08:31 -Correct Patient Yes Yes -Correct Side, Site, Position Yes Yes -Correct Procedure Yes Yes -Procedure Performed Yes Yes -Type of Procedure Debridement Debridement -Clinical Debridement Subcutaneous Subcutaneous -Post Debridement Size (cm) - Length 0.3 0.1 -Post Debridement Size (cm) - Width 0.4 0.1 -Post Debridement Size (cm) - Depth 0.1 0.1 -Total Square Cm 0.12 0.01 -Wound/Ulcer Outcome Not Healed Not Healed -Ulcer Cleansing Rinsed/ Rinsed/ Irrigated with Irrigated with Saline Saline -Foul Odor after Cleansing No No -Bioengineered Tissue Yes No -Type of bioengineered Tissue [id number]-Pime -Expiration Date 03/17/20 -Product Lot Number [id number] -Percent Used 100 -Saline Lot Number [id number] -Bleeding Controlled with Pressure Pressure -Offloading No No -Treatment Response Procedure Procedure Tolerated Well Tolerated Well Pain Scale: 0-10 Numeric Is Patient Pain Free? Yes Yes Wound debrided: Right Ankle Type of Debridement: Excisional debridement Anesthesia Used: 4% Lidocaine Solution, 5% Lidocaine Gel Depth: Down to and including healthy tissue, in the subcutaneous layer Percentage of wound debrided: 100 Instrument Used: 3mm curette Tissue Removed: Devitalized tissue and slough Severity: Fat Layer Exposed Amount of bleeding with debridement: Mild Bleeding Controlled with: Pressure Patient tolerated procedure well Assessment/Plan Active Problems (Last Reviewed 04/16/19 @ 10:48 by Thompson Diggs MD) Ulcer of right ankle (Chronic) Exposed bone. Status post hardware removal (Acute) Assessment: Ulcer of right ankle with exposed bone. Status post hardware removal Plan: Debridement done as documented above, procedure was well-tolerated. Improved. Less scabbing also noted. Minimal area left. Pomogram with adaptic over top. Unable to dress his ulcer at home. Follow up on monday for a nurse visit. Double layer tubigrip for edema management. Elevate lower extremities when seated and in bed. Increased protein intake also recommended. Follow-up in 1 week. All his questions were answered and he was advised to call with any further questions or concerns. This note was generated with [employer] dictation software. It may contain incorrect words, spelling, and punctuation that were not noted in checking the note before signing.
[2019-07-29 08:27] VITALS: BP 94/60; PULSE 86; RESP 16; TEMP 35.9; BMI 27.6
[2019-08-01 09:12] VITALS: BP 117/69; PULSE 86; RESP 16; TEMP 35.9; BMI 27.6
--- NOTE | 2019-08-01 10:21 | PN.PCM_ITS ---
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 (2) Status post hardware removal Status: Acute Current Visit: Yes Code(s): Z98.890 - Other specified postprocedural states Type of Wound Date of Service: 08/01/19 Chief Complaint: Right ankle ulcer secondary to exposed hardware. History of Wound: Mr. Lucio is an 83-year-old who was referred to the wound center due to right ankle ulcer. Symptoms started 2 weeks ago with redness and swelling noted around the area. Was seen at the emergency room, imaging done with no significant concern. He was started on antibiotics due to mild purulent drainage noted and patient was subsequently referred here. Had right ankle surgery in 1992 and has been doing well since then. Had hardware removed by Dr. Diop 04/24/19 and a wound vac placed. Progress of Wound: Healed. No new concerns. - Physical Exam Vital Signs Temp Pulse Resp BP 96.6 F L 86 16 117/69 08/01/19 09:12 08/01/19 09:12 08/01/19 09:12 08/01/19 09:12 General: Alert, Oriented x3, Cooperative, No apparent distress HEENT: Atraumatic, Normocephalic Oral: Moist Mucosa Neck: Supple Lungs: Normal air movement Extremities: No cyanosis Wound Measurements and Assessment WC - Nurse 1 - General Ulcer Measurement Start: 07/18/19 10:39 Freq: Status: Active Protocol: Activity Type Activity Date Activity User E-Sign Co-Sign Detail Recorded Client Recorded Date Recorded By Document 08/01/19 09:12 [facility] [id number] 08/01/19 09:19 [facility] 08/01/19 09:12 Wound Center Nurse 1 [Ulcer Assessment] #1 R Lat Ankle -Combined with other wound No -Current Size (cm) - Length 3.6 -Current Size (cm) - Width 2.2 -Current Size (cm) - Depth 0.1 -Total Square Cm 7.92 -Photo Taken No -Epithelialization None Present -Tunneling No -Undermining/Tunneling No -Circular Undermining No -Exudate Amt Small -Exudate Type Serosanguineous -Wound Margin Distinct, Outline Attached -Granulation Amt None Present (0 %) -Slough/Fibrin Yes -Necrosis Amt Large (67-100%) -Necrotic Tissue Type Adherent Slough -Texture (Martha-wound Skin Appearance) Assessed, Scarring -Moisture (Martha-wound Skin Appearance Assessed,Dry/ ) Scaly -Color (Martha-wound Skin Appearance) Assessed -Temperature (Martha-wound Skin No Abnormality Appearance) (Pt Warm) -Tenderness on Palpation (Martha-wound No Skin Appearance) -Ulcer Cleansing Rinsed/ Irrigated with Saline -Foul Odor after Cleansing No -Anesthetic Used 5% Lidocaine Gel [Edema Assessment] -Lower Limb Edema Present No -Right Calf (cm) 32.7 -Right Ankle (cm) 19.5 WC - Nurse 2 - General Ulcer CM Notes Start: 07/18/19 10:39 Freq: Status: Active Protocol: Activity Type Activity Date Activity User E-Sign Co-Sign Detail Recorded Client Recorded Date Recorded By Document 08/01/19 10:03 MW [id number] 08/01/19 10:07 MW 08/01/19 10:03 Wound Center Nurse 2 [Procedure/Treatment] #1 R Lat Ankle -Time 10:03 -Correct Patient Yes -Correct Side, Site, Position Yes -Correct Procedure Yes -Procedure Performed No -Post Debridement Size (cm) - Length 0 -Post Debridement Size (cm) - Width 0 -Post Debridement Size (cm) - Depth 0 -Total Square Cm 0 -Wound/Ulcer Outcome Healed- Epithelialized -Ulcer Cleansing Rinsed/ Irrigated with Saline -Foul Odor after Cleansing No -Bioengineered Tissue No -Offloading No -Treatment Response Procedure Tolerated Well [See Physician Procedure note for Specifics] Pain Scale: 0-10 Numeric [Pain] -Is Patient Pain Free? Yes Musculoskeletal: No Muscle Wasting Neurological: Cranial nerves II-XII grossly intact Psych/Mental Status: Normal Affect Debridement Note Post-Debridement Measurements/Treatment WC - Nurse 2 - General Ulcer CM Notes Start: 07/18/19 10:39 Freq: Status: Active Protocol: Activity Type Activity Date Activity User E-Sign Co-Sign Detail Recorded Client Recorded Date Recorded By Document 07/18/19 11:32 MW [id number] 07/18/19 11:38 MW Document 07/25/19 08:29 MW [id number] 07/25/19 08:39 MW Document 09/19/19 10:03 MW [id number] 08/01/19 10:07 MW 07/18/19 07/25/19 08/01/19 11:32 08:29 10:03 Wound Center Nurse 2 #1 R Lat Ankle -Time 11:32 08:31 10:03 -Correct Patient Yes Yes Yes -Correct Side, Site, Position Yes Yes Yes -Correct Procedure Yes Yes Yes -Procedure Performed Yes Yes No -Type of Procedure Debridement Debridement -Clinical Debridement Subcutaneous Subcutaneous -Post Debridement Size (cm) - Length 0.3 0.1 0 -Post Debridement Size (cm) - Width 0.4 0.1 0 -Post Debridement Size (cm) - Depth 0.1 0.1 0 -Total Square Cm 0.12 0.01 0 -Wound/Ulcer Outcome Not Healed Not Healed Healed- Epithelialized -Ulcer Cleansing Rinsed/ Rinsed/ Rinsed/ Irrigated with Irrigated with Irrigated with Saline Saline Saline -Foul Odor after Cleansing No No No -Bioengineered Tissue Yes No No -Type of bioengineered Tissue MARCUSX-Pime -Expiration Date 03/17/20 -Product Lot Number [id number] -Percent Used 100 -Saline Lot Number [id number] -Bleeding Controlled with Pressure Pressure -Offloading No No No -Treatment Response Procedure Procedure Procedure Tolerated Well Tolerated Well Tolerated Well Pain Scale: 0-10 Numeric Is Patient Pain Free? Yes Yes Yes Assessment/Plan Active Problems (Last Reviewed 04/16/19 @ 10:48 by Thompson Diggs MD) Ulcer of right ankle (Chronic) Exposed bone. Status post hardware removal (Acute) Assessment: Ulcer of right ankle with exposed bone. Status post hardware removal Plan: Healed. No new cocnerns at this time. Adaptic and guaze over area x 2 weeks. Hydration and Moisturizing also strongly recommended. Continue compression. Elevate lower extremities when seated and in bed. Increased protein intake also recommended. All his questions were answered and he was advised to call with any further questions or concerns. Discharge from the clinic. This note was generated with [employer] software. It may contain incorrect words, spelling, and punctuation that were not noted in checking the note before signing.
== END 2019-08-12 23:59 ==
LOC: WC 09:30
PROVIDERS: Family Provider Internal Medicine; PCP Internal Medicine; Visit Provider Internal Medicine
DX: T84.498S Other mechanical complication of other internal orthopedic devices, implants and grafts, sequela (principal); Y83.8 Other surgical procedures as the cause of abnormal reaction of the patient, or of later complication, without mention of misadventure at the time of the procedure; L97.312 Non-pressure chronic ulcer of right ankle with fat layer exposed
CPT/HCPCS: 11042; 15271; 99213; Q4133; G0463

== ENCOUNTER 2019-10-25 09:56 | Inpatient (IN) | payer MEDICARE, SELFPAY ==
[2019-10-25] VITALS (8 sets, daily range): BP systolic 115–145; BP diastolic 60–72; PULSE 43–62; RESP 14–18; TEMP 36.4–36.9; O2SAT 96–99; BMI 27.3; BMI 27.4; BMI 27.5
--- NOTE | 2019-10-25 10:25 | CT_ITS ---
STUDY: CT CERVICAL SPINE WITHOUT CONTRAST REASON FOR EXAM: Male, 84 years old. Fall due to dizziness. RADIATION DOSAGE (If Supplied By Facility): CTDIvol = ( 22.92 ) mGy, DLP = ( 500.15 ) mGycm TECHNIQUE: High resolution transaxial imaging was performed without contrast material. Sagittal and coronal images were reconstructed. Individualized dose optimization techniques were used for this CT. COMPARISON: None FINDINGS: Normal craniovertebral junction. There are degenerative changes of the anterior atlantoaxial articulation. Normal odontoid process. Normal cervical lordosis. Normal vertebral bodies and posterior osseous elements. C2-3: Facet joint hypertrophy worse on the right side. No significant stenosis seen. C3-4: Marked degree of disc space narrowing with subchondral sclerosis. Facet joint arthritis and hypertrophy worse on the left side causing a marked degree of left neural foraminal stenosis. C4-5: Marked degree of disc space narrowing and subchondral sclerosis. Uncovertebral arthrosis. Moderate to marked degree of right neural foraminal stenosis. C5-6: Normal endplates. Normal disc height and morphology. Normal central canal and intervertebral neuroforamina. C6-7: Normal endplates. Normal disc height and morphology. Normal central canal and intervertebral neuroforamina. C7-T1: Normal endplates. Normal disc height and morphology. Normal central canal and intervertebral neuroforamina. Atherosclerotic calcification of the carotid arteries bilaterally. CT/Spine Cervical without Contras IMPRESSION: Multilevel degenerative changes, as described above. Electronically Signed: Elpidio Cuevas, at 12:28 EST , Service support ,
--- NOTE | 2019-10-25 10:25 | EKG12_ITS ---
Test Reason : FALL Blood Pressure : / mmHG Vent. Rate : 044 BPM Atrial Rate : 044 BPM P-R Int : 204 ms QRS Dur : 168 ms QT Int : 666 ms P-R-T Axes : 077 -70 -21 degrees QTc Int : 569 ms Marked sinus bradycardia Left axis deviation Non-specific intra-ventricular conduction block Abnormal ECG Old wall ME Confirmed by MARIETTA FULLER ([id number]), newspaper editor managing SAMINA PATRICK ([id number]) on 10/30/2019 12:56:50 PM Referred By: Kat Heck Confirmed By:MARIETTA FULLER
--- NOTE | 2019-10-25 10:25 | RAD_ITS ---
STUDY: X-RAY CHEST REASON FOR EXAM: Male, 84 years old. Shortness of breath. History of fall. TECHNIQUE: Single AP portable view of the chest. COMPARISON: Comparison is made with prior study dated March 07, 2019. FINDINGS: EKG electrodes are seen. Stable scarring at the lung bases. Blunting of both costophrenic angles. 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 Normal mediastinum and jj. Normal visualized pulmonary arteries. There is atherosclerotic calcification of the aortic arch with tortuosity. There are diffuse degenerative changes of the visualized thoracic spine. Normal visualized ribs, clavicles, and shoulders. There is no demonstrated abnormality of the visualized soft tissue structures of the upper abdomen. RAD/Chest 1 View (Portable) IMPRESSION: Stable scarring at the lung bases. Electronically Signed: Elpidio Cuevas, at 11:26 EST , Service support ,
--- NOTE | 2019-10-25 10:25 | CT_ITS ---
STUDY: CT BRAIN WITHOUT CONTRAST REASON FOR EXAM: Male, 84 years old. An injury due to a fall. RADIATION DOSAGE (If Supplied By Facility): CTDIvol = ( 44.99 ) mGy, DLP = ( 745.49 ) mGycm TECHNIQUE: Transaxial CT imaging of the brain was performed without administration of intravenous contrast material. Individualized dose optimization techniques were used for this CT. COMPARISON: No relevant priors. FINDINGS: Soft tissue swelling and laceration overlying the right frontal bone. Normal calvarium. There is mild cerebral atrophy with widening of the extra-axial spaces and ventricular dilatation. There are areas of decreased attenuation within the white matter tracts of the supratentorial brain, consistent with microvascular disease changes. Normal basal ganglia and thalami. Normal brainstem. There is mild cerebellar atrophy. There is no intracranial hemorrhage. There are no findings of an acute ischemic infarction. Normal visualized paranasal sinuses. CT/Brain/Head without Contrast IMPRESSION: Chronic involutional changes of the brain. Soft tissue swelling and laceration overlying the left frontal bone. Electronically Signed: Elpidio Cuevas, at 12:24 EST , Service support ,
--- NOTE | 2019-10-25 10:27 | ED.VIS.FALL ---
History of Present Illness Chief Complaint: Fall Informant: Patient Occurred: Today Mechanism/Context: Dizziness, Lightheadedness Narrative: Patient is an 84-year-old male with history including hypertension, atrial fibrillation?on Eliquis, BPH and diabetes mellitus presenting after a fall. Patient states he was walking to check the mail when he started to feel lightheaded. Patient states he felt that he ran out of the window and then keeled over. Patient fell forward hitting his head on the cement sidewalk. He did not lose consciousness. Patient states that he did feel lightheaded and weak which is what caused him to fall. He was able to crawl to his neighbor's house who then helped him up and called his brother. Patient does live home alone. He notes he supposed to use a walker. He denies any associated chest pain. He notes he felt short of breath right before he fell. He notes he started to feel weak yesterday and thought maybe he was coming down with the flu. He denies any cold symptoms such as cough, nasal congestion or fever. He denies any nausea, vomiting, abdominal pain or urinary symptoms. He denies any other complaints at this time. Tetanus Immunization: Unknown Past Medical History - Allergies and Home Meds Allergies/Adverse Reactions: Allergies No Known Allergies Allergy (Verified 10/25/19 09:59) Past Medical History: - - Hypertension, A. fib, BPH, diabetes mellitus Surgical History: - - CABG x 2, AVR (01/01/19), right total hip replacement, bilateral cataract surgery. Lives: Alone Smoking Status: Former smoker - Family History Maternal Family History: Family History (Last Reviewed 04/16/19 @ 10:48 by Thompson Diggs MD) Father CVA (cerebral vascular accident) Mother COPD (chronic obstructive pulmonary disease) Family History: Reports: - - Patient with a maternal family history of hypertension as well as chronic COPD with underlying history of tobacco use. Paternal Family History: Family History (Last Reviewed 04/16/19 @ 10:48 by Thompson Diggs MD) Father CVA (cerebral vascular accident) Mother COPD (chronic obstructive pulmonary disease) Family History: Reports: - - Patient with a paternal family history of hypertension as well as history of aneurysm. Review of Systems General: Reports: Malaise - Generalized. Denies: Chills, Fever, Sweats Eyes: Denies: Visual changes - bilaterally, Diplopia ENT: Denies: Rhinorrhea, Sore throat Cardiovascular: Denies: Chest pain, Palpitations Respiratory: Reports: Dyspnea. Denies: Cough, Dyspnea on exertion Gastrointestinal: Denies: Abdominal pain, Nausea, Vomiting, Diarrhea, Melena, Hematochezia Genitourinary: Denies: Dysuria, Hematuria, Frequency Musculoskeletal: Denies: Myalgias, Back pain, Extremity Pain Skin: Reports: Abrasions - Right forehead, right hand, left elbow. Denies: Rash, Wounds Neurological: Reports: Weakness - Generalized. Denies: Headache, Parasthesia, Numbness Hematologic: Reports: Easy bruising, Easy bleeding Physical Exam Vital Signs/Narrative: Vital Signs Temp Pulse Resp BP Pulse Ox 10/25/19 09:57 97.6 F L 51 L 18 145/70 H 99 Inital Vital Signs reviewed: Yes General: Well nourished, Well developed Head: Normocephalic, Trauma - Abrasions scattered over right forehead and top of head Eyes: EOMI, - - Right pupil is 1 mm larger than the left and slightly irregular ENT: TM's clear, No hemotympanum or drainage, - - Edentulous. Negative for: Nasal trauma, Nasal septal hematoma Neck: Nontender, Full ROM Cardiovascular: Regular rate, Regular rhythm, No murmurs Respiratory: No distress, CTA bilaterally, Chest nontender Abdomen: Soft, Nontender, Nondistended, Normal bowel sounds Back: Nontender Skin: Normal color, No rash, Trauma - Superficial abrasions over the forehead area as well as 2 cm skin tear over right fourth knuckle and skin tears over the lateral aspect of the left elbow Neurological: Alert, Oriented x3, Cranial nerves II-XII grossly intact, Normal Strength, Normal Sensation Psychological: Normal affect Diagnostic/Tx/Re-eval Clinical Impression(s) from Imaging Studies Brain CT 10/25/19 10:25 IMPRESSION: Chronic involutional changes of the brain. Soft tissue swelling and laceration overlying the left frontal bone. Electronically Signed: Elpidio Cuevas, at 12:24 EST , Service support , Cervical Spine CT 10/25/19 10:25 IMPRESSION: Multilevel degenerative changes, as described above. Electronically Signed: Elpidio Cuevas, at 12:28 EST , Service support , Chest X-Ray 10/25/19 10:25 IMPRESSION: Stable scarring at the lung bases. Electronically Signed: Elpidio Cuevas, at 11:26 EST , Service support , Laboratory Data 10/25/19 10/25/19 10/25/19 11:09 11:09 11:45 WBC 9.2 RBC 4.85 Hgb 13.0 Hct 39.7 L MCV 81.9 MCH 26.8 L MCHC 32.7 RDW Std Deviation 52.3 H RDW Coeff of Torie 17.7 H Plt Count 119 L MPV 11.9 Immature Gran % (Auto) 0.700 Neut % (Auto) 74.8 H Lymph % (Auto) 15.0 L [place] % (Auto) 8.1 Eos % (Auto) 1.1 Baso % (Auto) 0.3 Absolute Neuts (auto) 6.9 Absolute Lymphs (auto) 1.38 Nucleated RBC % 0 Sodium Cancelled Potassium Cancelled Chloride Cancelled Carbon Dioxide Cancelled Anion Gap Cancelled BUN Cancelled Creatinine Cancelled Estim Creat Clear Calc Cancelled Est GFR (MDRD) Af Amer Cancelled Est GFR (MDRD) Non-Af Cancelled BUN/Creatinine Ratio Cancelled Glucose Cancelled Hemoglobin A1c Calcium Cancelled Phosphorus Magnesium Iron TIBC Iron Saturation Ferritin Troponin I Cancelled TSH Urine Color Yellow Urine Clarity Clear Urine pH 7.0 Ur Specific [place] 1.010 Urine Protein 15 H Urine Glucose (UA) 1000 H Urine Ketones Negative Urine Occult Blood 10 H Urine Nitrite Negative Urine Bilirubin Negative Urine Urobilinogen Normal Ur Leukocyte Esterase Negative Urine RBC 0-5 SEEN Urine WBC 0 SEEN Ur Squamous Epith Cells 0 SEEN Urine Bacteria 0 SEEN Urine Mucus 0 SEEN 10/25/19 10/25/19 10/25/19 12:10 12:10 12:10 WBC RBC Hgb Hct MCV MCH MCHC RDW Std Deviation RDW Coeff of Torie Plt Count MPV Immature Gran % (Auto) Neut % (Auto) Lymph % (Auto) [place] % (Auto) Eos % (Auto) Baso % (Auto) Absolute Neuts (auto) Absolute Lymphs (auto) Nucleated RBC % Sodium 127 L Potassium 5.4 H Chloride 89 L Carbon Dioxide 28.0 Anion Gap 10 BUN 39 H Creatinine 1.98 H Estim Creat Clear Calc 28.76 Est GFR (MDRD) Af Amer 42 L Est GFR (MDRD) Non-Af 35 L BUN/Creatinine Ratio 19.7 Glucose 497 H* Hemoglobin A1c 13.2 H Calcium 10.3 H Phosphorus Magnesium 2.3 Iron 46 L TIBC 298 Iron Saturation 15.4 Ferritin 454 H Troponin I 0.018 TSH 1.99 Urine Color Urine Clarity Urine pH Ur Specific [place] Urine Protein Urine Glucose (UA) Urine Ketones Urine Occult Blood Urine Nitrite Urine Bilirubin Urine Urobilinogen Ur Leukocyte Esterase Urine RBC Urine WBC Ur Squamous Epith Cells Urine Bacteria Urine Mucus 10/25/19 12:10 WBC RBC Hgb Hct MCV MCH MCHC RDW Std Deviation RDW Coeff of Torie Plt Count MPV Immature Gran % (Auto) Neut % (Auto) Lymph % (Auto) [place] % (Auto) Eos % (Auto) Baso % (Auto) Absolute Neuts (auto) Absolute Lymphs (auto) Nucleated RBC % Sodium Potassium Chloride Carbon Dioxide Anion Gap BUN Creatinine Estim Creat Clear Calc Est GFR (MDRD) Af Amer Est GFR (MDRD) Non-Af BUN/Creatinine Ratio Glucose Hemoglobin A1c Calcium Phosphorus 4.3 Magnesium Iron TIBC Iron Saturation Ferritin Troponin I TSH Urine Color Urine Clarity Urine pH Ur Specific [place] Urine Protein Urine Glucose (UA) Urine Ketones Urine Occult Blood Urine Nitrite Urine Bilirubin Urine Urobilinogen Ur Leukocyte Esterase Urine RBC Urine WBC Ur Squamous Epith Cells Urine Bacteria Urine Mucus - Rhythm Strip Rhythm Strip: Sinus bradycardia Rate: 44 Ectopy: None - EKG Initial EKG Interpretation: Sinus Bradycardia, - - Sinus bradycardia rate of 44 First-degree AV block with a NH interval of 204 Left axis deviation QRS 168 QTc 569 Intraventricular conduction delay present Compared to prior EKG patient has resolution of his left bundle branch block but also has QRS inversions in the inferior leads which are new as well as resolution of atrial fibrillation Prior: Changed - Medical Decision Making Patient is evaluated after a fall. He is on anticoagulation, Eliquis for A fib. Patient has multiple skin tears and abrasions but does not require any sutures. Localized wound care is performed in the emergency room. His tetanus is updated. Patient had a near syncopal episode which caused him to fall. He is bradycardic in the emergency room which might be contributing to his near syncope. Work-up is remarkable otherwise only for hyperglycemia. He has a normal anion gap and I do not suspect HHNK or DKA. He will be admitted for further evaluation of the near syncope and bradycardia. He is agreeable with this plan. CT of the brain and C-spine do not show any acute intracranial process or fracture. Thankfully he did not seem to sustain any significant injuries from his fall. He is agreeable with this plan. ED Disposition - Plan for ED Patient: Disposition: Acute Care Hospital [facility] Diagnosis: Near syncope, Bradycardia, Fall, Abrasions of multiple sites, Need for Tdap vaccination
[2019-10-25] MEDS: Diphth,Pertuss(Acell),Tet Vac 0.5 ML Vial IM (10:48)
[2019-10-25 11:24] LABS: Absolute Lymphocyte Count 1.38 X10^3/uL (0.83-4.51); Absolute Neutrophil Count 6.9 X10^3/uL (2.0-7.7); Basophil# 0.03 X10^3/uL; Basophil% 0.3 % (0-1); Eosinophils% 1.1 % (0-5); Hematocrit 39.7 % (40-54); Lymphocyte # 1.38 X10^3/ul (4.0); Mean Corp Hgb Conc 32.7 g/dL (32-36); Mean Corpuscular Hgb 26.8 pg (27.0-32.0); Mean Corpuscular Volume 81.9 fL (80-94); Mean Platelet Vol. 11.9 fl (6.2-12.0); Monocyte# 0.74 X10^3/uL; Monocyte% 8.1 % (0-10); NRBC Flagged by Analyzer 0 % (0-5); Neutrophil # 6.88 X10^3/uL (2.7-7.7); Neutrophil % 74.8 % (47-70); Platelet Count 119 K/mm3 (150-450); RBC Distribution Width CV 17.7 % (11.6-14.6); RBC Distribution Width SD 52.3 fl (35.1-43.9); Red Blood Count 4.85 M/mm3 (4.6-6.2); White Blood Count 9.2 K/mm3 (4.4-11.0)
[2019-10-25 11:50] LABS: Bacteria 0 SEEN /hpf (None Seen); Mucous, Urine 0 SEEN /hpf (<or=2+); Squamous Epithelial Cells - UA 0 SEEN /hpf (0-5); White Blood Cells 0 SEEN /hpf (0-5)
[2019-10-25 11:52] LABS: Color, Urine Yellow (Yellow); Glucose, Dipstick 1000 mg/dl (Normal); Ketone-Dipstick Negative (Negative); Leukocyte Esterase-Dipstick Negative /ul (Negative); Nitrite-Dipstick Negative (Negative); Occult Blood-Urine 10 /ul (Negative); Protein-Dipstick 15 mg/dl (Negative); Urine Bilirubin Dipstick Negative (Negative); Urine Clarity Clear (Clear); Urine Urobilinogen Normal (Normal)
[2019-10-25 12:07] LABS: Red Blood Cells-Urine 0-5 SEEN /hpf (0-5)
[2019-10-25 13:06] LABS: Anion Gap 10 (5-15); BUN 39 mg/dL (7-18); BUN/Creat Ratio 19.7 RATIO (10-20); Calcium,Total 10.3 mg/dL (8.5-10.1); Chloride 89 mmol/L (98-107); Creatinine, Serum 1.98 mg/dL (0.70-1.30); EST Glomerular Filtration Rate 35 mL/min (>60); Est Glom Filt Rate - Afr Amer 42 mL/min (>60); Estimated Creatinine Clearance 28.76 ml/min; Glucose 497 mg/dL (74-106); Potassium 5.4 mmol/L (3.5-5.1); Sodium Level 127 mmol/L (136-145)
--- NOTE | 2019-10-25 15:12 | PCM.HP.STD ---
Problem List (1) Hyponatremia Status: Acute (2) Hyperkalemia Status: Acute (3) Acute on chronic renal failure Status: Acute Qualifiers: Chronic kidney disease stage: stage 2 (mild) (4) Dehydration Status: Acute (5) Exposed orthopaedic hardware Status: Resolved (6) Ulcer of right ankle Status: Resolved Qualifiers: Comment: Exposed bone. (7) Status post hardware removal Status: Resolved (8) Near syncope Status: Acute (9) Bradycardia Status: Acute (10) Fall Status: Acute Qualifiers: Encounter type: initial encounter Qualified Code(s): W19.XXXA - Unspecified fall, initial encounter (11) Abrasions of multiple sites Status: Acute (12) Need for Tdap vaccination Status: Acute (13) Secondary pulmonary arterial hypertension Status: Chronic (14) Paroxysmal atrial fibrillation Status: Chronic (15) Essential (primary) hypertension Status: Chronic (16) Stenosis of right subclavian artery Status: Resolved (17) Left bundle branch block Status: Chronic (18) H/O aortic valve replacement Status: Chronic Comment: AVR w/ 25 mm Magna Ease Bioprosthetic Valve 01/01/19 (19) H/O coronary artery bypass surgery Status: Chronic Comment: CABG x 2 VILLALBA-LAD, SVG-Distal RCA and AVR w/ 25 mm Magna Ease Bioprosthetic Valve 01/01/19 (20) Non-rheumatic aortic stenosis Status: Chronic Comment: AVR w/ 25 mm Magna Ease Bioprosthetic Valve 01/01/19 (21) Atherosclerosis of coronary artery of [place] heart without angina pectoris Status: Chronic Qualifiers: Coronary Disease-Associated Artery/Lesion type: unspecified vessel or lesion type Qualified Code(s): I25.10 - Atherosclerotic heart disease of [place] coronary artery without angina pectoris Comment: CABG x 2 VILLALBA-LAD, SVG-Distal RCA and AVR w/ 25 mm Magna Ease Bioprosthetic Valve 01/01/19 (22) Hyperlipidemia Status: Chronic Qualifiers: Hyperlipidemia type: pure hypercholesterolemia Qualified Code(s): E78.00 - Pure hypercholesterolemia, unspecified; E78.0 - Pure hypercholesterolemia (23) Uncontrolled type 2 diabetes mellitus Status: Chronic Qualifiers: Glycemic state: with hyperglycemia Qualified Code(s): E11.65 - Type 2 diabetes mellitus with hyperglycemia (24) Chronic diastolic (congestive) heart failure Status: Chronic History of Present Illness Date of Admission: 10/25/19 Chief Complaint: lightheadedness followed by a fall face first onto a concrete walkway The patient is a 84 year old M with a past medical history of hypertension, hyperlipidemia, chronic renal failure stage II, coronary artery disease, secondary pulmonary hypertension, nonrheumatic aortic stenosis(S/P AVR), right subclavian artery stenosis, left bundle branch block, chronic diastolic congestive heart failure, depression/anxiety, BPH and DM II who presented to the emergency department at [facility] on 10/25/2019 after becoming lightheaded and falling to the ground on a concrete sidewalk when he went outside to get the mail. He has had several falls over the preceding month and states he gets lightheaded when he stands. He denies losing consciousness. He fell face first onto the concrete sidewalk and sustained a hematoma to the R frontal area and several abrasions. He also c/o getting very winded with exertion and having to sit down frequently. He lives by himself. Denies CP, fevers/chills, cough, diarrhea. Vital signs at presentation to the emergency department were 97.6 temp, pulse rate 51, blood pressure 145/70, respiratory rate 18 and he was 99% saturated on room air. Heart rate then went down into the 40s. Chemistry was significant for a low sodium at 127, high potassium at 5.4, low chloride at 89, BUN of 39 and a creatinine of 1.98, random blood sugar of 975 and a high calcium at 10.3. Troponin was normal at 0.018. White blood cell count was within normal limits with an unremarkable differential. Hemoglobin was 13 and the platelet count was decreased at 119,000. A noncontrasted CT of the brain showed chronic involutional changes with soft tissue swelling and laceration overlying the right frontal bone (mistakenly listed as over the left frontal bone on the radiology impressions). CT of the cervical spine showed multilevel degenerative changes with no fractures or dislocations noted. Chest x-ray showed no infiltrates, pleural effusions or pulmonary vascular congestion. He is being admitted to the hospital with closed head trauma, uncontrolled DM II, ARF and bradycardia. Past Medical History Past Medical History (Chronic Problems): Chronic Problems (Last Reviewed 04/16/19 @ 10:48 by Thompson Diggs MD) Uncontrolled type 2 diabetes mellitus (Chronic) Chronic diastolic (congestive) heart failure (Chronic) Secondary pulmonary arterial hypertension (Chronic) Paroxysmal atrial fibrillation (Chronic) Essential (primary) hypertension (Chronic) Left bundle branch block (Chronic) H/O aortic valve replacement (Chronic 01/01/19) AVR w/ 25 mm Magna Ease Bioprosthetic Valve 01/01/19 H/O coronary artery bypass surgery (Chronic 01/01/19) CABG x 2 VILLALBA-LAD, SVG-Distal RCA and AVR w/ 25 mm Magna Ease Bioprosthetic Valve 01/01/19 Non-rheumatic aortic stenosis (Chronic) AVR w/ 25 mm Magna Ease Bioprosthetic Valve 01/01/19 Atherosclerosis of coronary artery of [place] heart without angina pectoris (Chronic) CABG x 2 VILLALBA-LAD, SVG-Distal RCA and AVR w/ 25 mm Magna Ease Bioprosthetic Valve 01/01/19 Hyperlipidemia (Chronic) Medical History: Medical History (Last Reviewed 10/25/19 @ 22:30 by Kat Heck DO) Secondary pulmonary arterial hypertension (Chronic) I27.21 Paroxysmal atrial fibrillation (Chronic) I48.0 Essential (primary) hypertension (Chronic) I10 Left bundle branch block (Chronic) I44.7 Non-rheumatic aortic stenosis (Chronic) I35.0 AVR w/ 25 mm Magna Ease Bioprosthetic Valve 01/01/19 Atherosclerosis of coronary artery of [place] heart without angina pectoris (Chronic) I25.10 CABG x 2 VILLALBA-LAD, SVG-Distal RCA and AVR w/ 25 mm Magna Ease Bioprosthetic Valve 01/01/19 Hyperlipidemia (Chronic) E78.5 Anxiety and depression F41.9, F32.9 Chronic kidney disease N18.9 Iron deficiency anemia D50.9 Obesity E66.9 Pleural effusion on left J90 Thyroid nodule E04.1 Type 2 diabetes mellitus E11.9 Near syncope R55 Stenosis of right subclavian artery (Resolved) I77.1 Postoperative atrial fibrillation (Inactive) Onset Date: 01/01/19 I97.89, I48.91 Allergies No Known Allergies Allergy (Verified 10/25/19 09:59) Home Medications: Ambulatory Orders Medication Instructions Recorded traZODone [Desyrel] 100 mg PO QHS 10/30/18 Doxepin HCl 100 mg PO QHS 01/15/19 Ferrous Sulfate 325 mg PO 1200,1700 tab 01/16/19 Buspirone HCl 10 mg PO BID 03/07/19 Glipizide [Glipizide ER] 10 mg PO DAILY 03/07/19 Vit A/Vit C/Vit E/Zinc/Copper 1 cap PO BID 03/07/19 [Preservision Areds Softgel] lisinopril 10 mg tablet 10 mg PO DAILY #60 tab 03/27/19 spironolactone 25 mg tablet 25 mg PO DAILY #60 tab 04/16/19 metoprolol tartrate 50 mg tablet 50 mg PO BID #60 tab 05/01/19 amiodarone 200 mg tablet 200 mg PO BID #60 tab 05/03/19 apixaban 2.5 mg tablet 2.5 mg PO BID #180 tab 06/10/19 atorvastatin 40 mg tablet 40 mg PO DAILY #90 tab 06/10/19 furosemide 40 mg tablet 60 mg PO BID #180 tab 09/19/19 Multivit-Min/FA/Lycopen/Lutein 1 tab PO DAILY 10/25/19 [Centrum Silver Men Tablet] Surgical History: Surgical History (Last Reviewed 10/25/19 @ 22:30 by Kat Heck DO) H/O aortic valve replacement (Chronic) Onset Date: 01/01/19 Z95.2 AVR w/ 25 mm Magna Ease Bioprosthetic Valve 01/01/19 H/O coronary artery bypass surgery (Chronic) Onset Date: 01/01/19 Z95.1 CABG x 2 VILLALBA-LAD, SVG-Distal RCA and AVR w/ 25 mm Magna Ease Bioprosthetic Valve 01/01/19 History of cataract surgery Z98.49 History of hip replacement Z96.649 History of left heart catheterization Onset Date: 10/31/18 Z98.890 History of open reduction and internal fixation (ORIF) procedure Z98.890 History of thoracentesis Z98.890 left 01/05/19 Surgical History: - - CABG x 2, AVR (01/01/19), right total hip replacement, bilateral cataract surgery. Psychiatric History: Anxiety, Depression Lives: Alone Smoking Status: Never smoker Tobacco Use: Non-smoker Alcohol: None Drugs: None - *Family History Maternal Family History: Family History (Last Reviewed 10/25/19 @ 22:30 by Kat Heck DO) Father CVA (cerebral vascular accident) Mother COPD (chronic obstructive pulmonary disease) History Items: - - Patient with a maternal family history of hypertension as well as chronic COPD with underlying history of tobacco use. Paternal Family History: Family History (Last Reviewed 10/25/19 @ 22:30 by Kat Heck DO) Father CVA (cerebral vascular accident) Mother COPD (chronic obstructive pulmonary disease) History Items: - - Patient with a paternal family history of hypertension as well as history of aneurysm. Review of Systems Constitutional: Reports: Weakness. Denies: Anorexia, Chills, Fever, Weight Change Eyes: Denies: Blurred vision HEENT: Denies: Head Aches, Sinus Congestion, Sinus Drainage, Sore Throat Cardiovascular: Reports: Light Headedness. Denies: Chest Pain, Edema, Palpitations Respiratory: Reports: Shortness of breath upon exertion. Denies: Cough, Shortness of breath at rest, Sputum production Gastrointestinal: Denies: Abdominal Pain, Constipation, Diarrhea, Nausea, Vomiting Genitourinary: Denies: Dysuria Musculoskeletal: Denies: Joint Pain, Joint Tenderness Skin: Reports: Wounds - he has multiple abrasion on the face and the UE's due to fall and also has a hematoma on the right frontal area. Denies: Jaundice, Rash Neurological: Denies: Blurred vision, Slurred speech, Confusion, Focal weakness, Numbness, Tingling, Seizures Psychiatric: Denies: Anxiety, Depression, Homicidal Ideations, Suicidal Ideations Endocrine: Denies: Hx of Thyroiditis Hematologic/ Lymphatic: Denies: Easy Bruising, Easy Bleeding, Hx of blood clot VTE Information - Inpt Only VTE Present on Admission: No VTE Mechan Device Prophylaxis: SCD's, Knee High MARIANA Hose VTE Pharm Prophylaxis ordered?: No Reason prophylaxis not ordered:: Treatment Not Indicated - admitted for closed head trauma Patient Problems: Active and Suspected Problems (Last Reviewed 04/16/19 @ 10:48 by Thompson Diggs MD) Near syncope (Acute) Bradycardia (Acute) Fall (Acute) Abrasions of multiple sites (Acute) Need for Tdap vaccination (Acute) Hyponatremia (Acute) Hyperkalemia (Acute) Acute on chronic renal failure (Acute) Dehydration (Acute) - Physical Exam Vitals/I&O's: Vital Signs Temp Pulse Resp BP Pulse Ox 98.4 F 62 18 134/65 H 97 10/25/19 14:46 10/25/19 15:07 10/25/19 14:46 10/25/19 14:53 10/25/19 14:46 Oxygen Delivery Method Room Air Weight: 186 lb Body Mass Index (BMI) 27.4 Finger Stick Blood Glucose 98 Orthostatic Vital Signs Start: 10/25/19 14:53 Freq: q24h Status: Active Protocol: Activity Type Activity Date Activity User E-Sign Co-Sign Detail Recorded Client Recorded Date Recorded By Document 10/25/19 14:53 ANG [id number] 10/25/19 14:56 ANG 10/25/19 14:53 Orthostatic Vitals Standing -Blood Pressure (90/60-120/80 mm Hg) 123/66 H -Extremity Use Right Arm -Pulse Rate (60-100 beats/min) 61 Sitting -Blood Pressure (90/60-120/80 mm Hg) 122/72 H -Extremity Use Right Arm -Pulse Rate (60-100 beats/min) 58 L Lying -Blood Pressure (90/60-120/80 mm Hg) 134/65 H -Extremity Use Right Arm -Pulse Rate (60-100 beats/min) 55 L General: Alert, Oriented x3, Cooperative, Well developed, Well nourished HEENT: PERRLA, EOMI, Normocephalic, - - he hqas a hematoma on the right frontal area and has multiple abrasion of the face Oral: No Gingival or Mucosal Lesions/ Ulcerations, Dry Mucosa Neck: Supple, No JVD, Negative Carotid Bruits, No Nodes, Trachea Midline Lungs: Clear to auscultation, Normal air movement Cardiovascular: Regular Rhythm, Normal S1, Normal S2, Bradycardic, No rub noted, No Gallop Abdomen: Bowel Sounds Present, Soft, Non Tender, Non-Distended Extremities: No edema, Capillary Refill Less than 3 Seconds Skin: Skin Tear - on the left elbow and multiple abrasions on the UE's due to the fall at admission Musculoskeletal: No Tenderness to Palpation of Joints or Extremities, Arthritic Changes Neurological: Cranial nerves II-XII grossly intact, Neuro grossly intact Psych/Mental Status: Normal Affect, Appropriate Laboratory Results 10/25/19 11:09: WBC 9.2, RBC 4.85, Hgb 13.0, Hct 39.7 L, MCV 81.9, MCH 26.8 L, MCHC 32.7, RDW Std Deviation 52.3 H, RDW Coeff of Torie 17.7 H, Plt Count 119 L, MPV 11.9, Immature Gran % (Auto) 0.700, Neut % (Auto) 74.8 H, Lymph % (Auto) 15.0 L, [place] % (Auto) 8.1, Eos % (Auto) 1.1, Baso % (Auto) 0.3, Absolute Neuts (auto) 6.9, Absolute Lymphs (auto) 1.38, Nucleated RBC % 0 10/25/19 11:09: Sodium Cancelled, Potassium Cancelled, Chloride Cancelled, Carbon Dioxide Cancelled, Anion Gap Cancelled, BUN Cancelled, Creatinine Cancelled, Estim Creat Clear Calc Cancelled, Est GFR (MDRD) Af Amer Cancelled, Est GFR (MDRD) Non-Af Cancelled, BUN/Creatinine Ratio Cancelled, Glucose Cancelled, Calcium Cancelled, Troponin I Cancelled 10/25/19 11:45: Urine Color Yellow, Urine Clarity Clear, Urine pH 7.0, Ur Specific [place] 1.010, Urine Protein 15 H, Urine Glucose (UA) 1000 H, Urine Ketones Negative, Urine Occult Blood 10 H, Urine Nitrite Negative, Urine Bilirubin Negative, Urine Urobilinogen Normal, Ur Leukocyte Esterase Negative, Urine RBC 0-5 SEEN, Urine WBC 0 SEEN, Ur Squamous Epith Cells 0 SEEN, Urine Bacteria 0 SEEN, Urine Mucus 0 SEEN 10/25/19 12:10: Sodium 127 L, Potassium 5.4 H, Chloride 89 L, Carbon Dioxide 28.0, Anion Gap 10, BUN 39 H, Creatinine 1.98 H, Estim Creat Clear Calc 28.76, Est GFR (MDRD) Af Amer 42 L, Est GFR (MDRD) Non-Af 35 L, BUN/Creatinine Ratio 19.7, Glucose 497 H*, Calcium 10.3 H, Troponin I 0.018 10/25/19 12:10: Hemoglobin A1c Pending 10/25/19 12:10: Magnesium Pending, Iron Pending, TIBC Pending, Iron Saturation Pending, Ferritin Pending, TSH Pending 10/25/19 12:10: Phosphorus Pending 10/25/19 15:08: Troponin I Pending Current Medications Acetaminophen (Tylenol) 650 mg PO Q6H PRN PRN PRN Reason: Pain Score 1-3/Temp > 100.7 F Al Hydroxide/Mg Hydroxide (Mylanta Ii) 30 ml PO Q6H PRN PRN PRN Reason: Gastric Burning Amiodarone HCl (Cordarone) 200 mg PO BID [facility] Apixaban (Eliquis) 2.5 mg PO BID [facility] Atorvastatin Calcium (Lipitor) 40 mg PO DAILY [facility] Dextrose (D50w Syringe) 0 gm IV X1 PRN; Protocol PRN Reason: Hypoglycemia Ferrous Sulfate (Ferrous Sulfate) 325 mg PO 1200,1700 FIDEL Glucagon () 1 mg IM .X1 PRN PRN Reason: Hypoglycemia Sodium Chloride () 500 mls @ 500 mls/hr IV .Q1H ONE Stop: 10/25/19 15:40 Sodium Chloride () 1,000 mls @ 75 mls/hr IV .[id number] [facility] Insulin Human Lispro (Humalog Kwikpen (Bkc)) 0 unit SC ACHS [facility]; Protocol Lisinopril (Zestril) 10 mg PO DAILY [facility] Magnesium Hydroxide (Milk Of Magnesia) 30 ml PO DAILY PRN PRN PRN Reason: Constipation Melatonin (Melatonin) 3 mg PO QHS PRN PRN PRN Reason: INSOMNIA Morphine Sulfate () 2 mg IV Q3H PRN PRN PRN Reason: Pain Score 6-10/10 Nitroglycerin (Nitrostat) 0.4 mg SUBLINGUAL Q5M PRN PRN Reason: CARDIAC/CHEST PAIN Non-Formulary Medication (Buspirone Hcl) 10 mg PO BID [facility] Non-Formulary Medication (Doxepin Hcl) 100 mg PO QHS [facility] Non-Formulary Medication (Multivit-Min/Fa/Lycopen/Lutein [Centrum Silver Men Tablet]) 1 tab PO DAILY [facility] Non-Formulary Medication (Vit A/Vit C/Vit E/Zinc/Copper) 1 cap PO BID [facility] Ondansetron HCl (Zofran) 4 mg IV Q8H PRN PRN PRN Reason: NAUSEA/VOMITING Oxycodone HCl (Oxyir) 5 mg PO Q6H PRN PRN PRN Reason: Pain Score 4-5/10 Senna/Docusate Sodium (Senokot-S, Martha-Colace) 2 tablet PO BID PRN PRN PRN Reason: Constipation Sodium Chloride () 10 - 40 ml IV UD PRN PRN Reason: SALINE FLUSH Assessment/Plan All Active Problems (Last Reviewed 04/16/19 @ 10:48 by Thompson Diggs MD) Near syncope (Acute) Bradycardia (Acute) Fall (Acute) Abrasions of multiple sites (Acute) Need for Tdap vaccination (Acute) Hyponatremia (Acute) Hyperkalemia (Acute) Acute on chronic renal failure (Acute) Dehydration (Acute) Exposed orthopaedic hardware (Resolved) Status post hardware removal (Resolved) Stenosis of right subclavian artery (Resolved) Ulcer of right ankle (Resolved) Impressions 1. Closed head trauma due to a fall due to lightheadedness and near syncope due to dehydration due to uncontrolled DM II with hyperglycemia. Neurochecks ordered throughout the night....if any change in mental status will need a repeat CTB to r/o intracerebral bleed in the pt on Apixaban 2. Acute Renal failure on CRF stage II due to dehydration. Lasix is being held and IV fluids have been ordered. Follow up BMP shows improvement in the sodium and resolution of the hyperkalemia. 3. Hyperkalemia due to ARF and Spironolactone and WEI -Spironolactone and lisinopril are on hold. 4. hyponatremia due to dehydration - improving with hydration 5. Uncontrolled DM II with hyperglycemia - hold the GLipizide due to ARF and start Humalog SSI. HGBA1C is 13.2 6. Bradycardia in the face of severe dehydration and ARF - check a TSH, hold metoprolol tonight, continue amiodarone. Monitor the BP and the HR closely. May need to restart the Metoprolol at a lower dose 7. Hypercalcemia-secondary to dehydration. Calcium is coming down with IV normal saline. 8. Chronic anticoagulation with Apixaban 9. HTN/HLD/ CAD/hx CABG/hx of AVR/anxiety and depression - chronic conditions that complicate care, management, prognosis and recovery. He is on both Trazodone and Doxepin at HS, the trazodone is going to be held.......should not be on both these agents. recheck the lab in the AM - he may be a good candidate for [facility] program. Code Visit Inpatient E&M: 78281 Subs Hosp L3
[2019-10-25 15:22] LABS: Phosphorus 4.3 mg/dL (2.5-4.9)
[2019-10-25 15:27] LABS: Ferritin 454 ng/mL (26-388); Hemoglobin A1c 13.2 % (4.2-6.3); Iron 46 ug/dL (65-175); Iron Binding Capacity,Total 298 ug/dL (250-450); Magnesium 2.3 mg/dL (1.6-2.6); PERCENT IRON SATURATION 15.4 % (15.0-55.0); Thyroid Stim Hormone (TSH) 1.99 uIU/mL (0.358-3.74)
[2019-10-25] MEDS: Multivitamin (Healthy Eyes) Capsule 1 CAP PO (15:55)
[2019-10-25] MEDS: Insulin Lispro 100 UNIT/ML INSULN.PEN SC ×2 (15:55→22:25)
[2019-10-25] MEDS: Ferrous Sulfate 325 MG Tablet PO (15:55)
[2019-10-25] MEDS: 0.9% Normal Saline 1,000 ML 75 ML IV (15:55)
[2019-10-25 16:05] LABS: Bedside Glucose 340 mg/dL (70-110)
[2019-10-25 19:54] LABS: Anion Gap 9 (5-15); BUN 38 mg/dL (7-18); BUN/Creat Ratio 19.4 RATIO (10-20); Calcium,Total 9.2 mg/dL (8.5-10.1); Chloride 95 mmol/L (98-107); Creatinine, Serum 1.96 mg/dL (0.70-1.30); EST Glomerular Filtration Rate 35 mL/min (>60); Est Glom Filt Rate - Afr Amer 42 mL/min (>60); Estimated Creatinine Clearance 29.06 ml/min; Glucose 396 mg/dL (74-106); Potassium 4.8 mmol/L (3.5-5.1); Sodium Level 132 mmol/L (136-145)
[2019-10-25] MEDS: busPIRone 5 MG Tablet 10 MG PO (22:16)
[2019-10-25] MEDS: APIXABAN 2.5 MG TABLET PO (22:16)
[2019-10-25] MEDS: Amiodarone 200 MG Tablet PO (22:16)
[2019-10-25] MEDS: DOXEPIN HCL 50 MG CAPSULE 100 MG PO (22:16)
[2019-10-25] MEDS: Atorvastatin Calcium 40 MG Tablet PO (22:17)
[2019-10-25 22:25] LABS: Bedside Glucose 280 mg/dL (70-110)
[2019-10-26] VITALS (14 sets, daily range): BP systolic 109–137; BP diastolic 61–76; PULSE 55–78; RESP 16–19; TEMP 36.7–36.9; O2SAT 91–98
[2019-10-26] MEDS: Acetaminophen 325 MG Tablet 650 MG PO (03:01)
[2019-10-26] MEDS: 0.9% Normal Saline 1,000 ML 75 ML IV ×2 (04:37→17:37)
[2019-10-26] MEDS: Insulin Lispro 100 UNIT/ML INSULN.PEN SC ×4 (06:33→22:00)
[2019-10-26 07:01] LABS: Bedside Glucose 273 mg/dL (70-110)
[2019-10-26 07:20] LABS: Hematocrit 36.5 % (40-54); Hemoglobin 11.9 g/dL (13.0-16.5); Mean Corp Hgb Conc 32.6 g/dL (32-36); Mean Corpuscular Hgb 26.8 pg (27.0-32.0); Mean Corpuscular Volume 82.2 fL (80-94); Mean Platelet Vol. 11.5 fl (6.2-12.0); Platelet Count 110 K/mm3 (150-450); RBC Distribution Width CV 17.8 % (11.6-14.6); RBC Distribution Width SD 53.6 fl (35.1-43.9); Red Blood Count 4.44 M/mm3 (4.6-6.2); White Blood Count 6.2 K/mm3 (4.4-11.0)
[2019-10-26 08:10] LABS: ALB/GLOB Ratio 0.8 RATIO (0.9-2.4); AST(SGOT) 114 U/L (15-37); Alanine Aminotransfer ALT/SGPT 64 U/L (16-61); Albumin, Serum 2.9 g/dL (3.2-5.0); Alkaline Phosphatase 129 U/L (45-117); Anion Gap 6 (5-15); BUN 32 mg/dL (7-18); BUN/Creat Ratio 21.3 RATIO (10-20); Calcium,Total 8.6 mg/dL (8.5-10.1); Chloride 99 mmol/L (98-107); Cholesterol 94 mg/dL (200); EST Glomerular Filtration Rate 48 mL/min (>60); Est Glom Filt Rate - Afr Amer 58 mL/min (>60); Estimated Creatinine Clearance 37.97 ml/min; Globulin 3.7 g/dL (2.2-4.2); Glucose 265 mg/dL (74-106); High Density Lipoprotein 29 mg/dL; Magnesium 2.1 mg/dL (1.6-2.6); Phosphorus 3.6 mg/dL (2.5-4.9); Potassium 4.3 mmol/L (3.5-5.1); Protein, Total 6.6 g/dL (6.4-8.2); Sodium Level 131 mmol/L (136-145); Triglycerides 200 mg/dL; Very Low Density Lipoprotein 40 mg/dL (5-40)
--- NOTE | 2019-10-26 10:14 | PCM.PN.HOSP ---
Patient Problems: Active and Suspected Problems (Last Reviewed 10/25/19 @ 22:30 by Kat Heck DO) Near syncope (Acute) Bradycardia (Acute) Fall (Acute) Abrasions of multiple sites (Acute) Need for Tdap vaccination (Acute) Hyponatremia (Acute) Hyperkalemia (Acute) Acute on chronic renal failure (Acute) Dehydration (Acute) Subjective: Patient seen and examined. He was admitted with a complaint of mechanical fall was outside getting his mail. Patient states he has had several falls over the past few weeks and states that he just feels like his legs give way with some assisted lightheadedness. He does not lose any consciousness when he falls. He fell face first onto the concrete sidewalk and sustained a hematoma on his face. Patient was noted to be bradycardic with heart rate down in the 40s as well as hyponatremic with sodium of 127. Potassium was high at 5.4. Creatinine was elevated at 1.98 and troponin was within normal limits. CT of the brain done showed chronic involutional changes with soft tissue swelling and laceration of the right frontal bone and CT of the cervical spine showed multilevel degenerative changes with no fractures or dislocations noted. Chest x-ray was normal. He was admitted to be managed for debility due to mechanical falls, acute renal failure and bradycardia. Patient had no complaints this morning. He is quite perplexed about his frequent falls and is concerned because he lives alone. He denies any lightheadedness or dizziness at time of review and denied any palpitations. He claims compliance with his medications. Of note, patient is on metoprolol which could be the cause of the bradycardia. Metoprolol was held on admission and heart rate is now up in the 60s. Review systems otherwise negative. Labs and vitals reviewed. Vitals/I&O's: Vital Signs Temp Pulse Resp BP Pulse Ox 98.0 F 62 16 123/61 H 91 10/26/19 02:45 10/26/19 02:59 10/26/19 02:45 10/26/19 02:48 10/26/19 07:45 Oxygen Delivery Method Room Air Weight: 190 lb 14.725 oz Body Mass Index (BMI) 27.4 Finger Stick Blood Glucose 98 Orthostatic Vital Signs Start: 10/25/19 14:53 Freq: q24h Status: Active Protocol: Activity Type Activity Date Activity User E-Sign Co-Sign Detail Recorded Client Recorded Date Recorded By Document 10/26/19 02:48 [facility] [id number] 10/26/19 02:57 MAB 10/26/19 02:48 Orthostatic Vitals Standing -Blood Pressure (90/60-120/80) 109/61 -Extremity Use Right Arm -Pulse Rate (60-100) 65 Sitting -Blood Pressure (90/60-120/80) 115/61 -Extremity Use Right Arm -Pulse Rate (60-100) 60 Lying -Blood Pressure (90/60-120/80) 123/61 H -Extremity Use Right Arm -Pulse Rate (60-100) 55 L Intake and Output for Last 24 Hours 10/24/19 10/25/19 10/26/19 23:59 23:59 23:59 Intake Total 1220 / 1220 1071.25 / 1071.25 Output Total 900 / 900 Balance 320 / 320 1071.25 / 1071.25 Laboratory Results 10/25/19 11:09: WBC 9.2, RBC 4.85, Hgb 13.0, Hct 39.7 L, MCV 81.9, MCH 26.8 L, MCHC 32.7, RDW Std Deviation 52.3 H, RDW Coeff of Torie 17.7 H, Plt Count 119 L, MPV 11.9, Immature Gran % (Auto) 0.700, Neut % (Auto) 74.8 H, Lymph % (Auto) 15.0 L, Baker % (Auto) 8.1, Eos % (Auto) 1.1, Baso % (Auto) 0.3, Absolute Neuts (auto) 6.9, Absolute Lymphs (auto) 1.38, Nucleated RBC % 0 10/25/19 11:09: Sodium Cancelled, Potassium Cancelled, Chloride Cancelled, Carbon Dioxide Cancelled, Anion Gap Cancelled, BUN Cancelled, Creatinine Cancelled, Estim Creat Clear Calc Cancelled, Est GFR (MDRD) Af Amer Cancelled, Est GFR (MDRD) Non-Af Cancelled, BUN/Creatinine Ratio Cancelled, Glucose Cancelled, Calcium Cancelled, Troponin I Cancelled 10/25/19 11:45: Urine Color Yellow, Urine Clarity Clear, Urine pH 7.0, Ur Specific Sargent 1.010, Urine Protein 15 H, Urine Glucose (UA) 1000 H, Urine Ketones Negative, Urine Occult Blood 10 H, Urine Nitrite Negative, Urine Bilirubin Negative, Urine Urobilinogen Normal, Ur Leukocyte Esterase Negative, Urine RBC 0-5 SEEN, Urine WBC 0 SEEN, Ur Squamous Epith Cells 0 SEEN, Urine Bacteria 0 SEEN, Urine Mucus 0 SEEN 10/25/19 12:10: Sodium 127 L, Potassium 5.4 H, Chloride 89 L, Carbon Dioxide 28.0, Anion Gap 10, BUN 39 H, Creatinine 1.98 H, Estim Creat Clear Calc 28.76, Est GFR (MDRD) Af Amer 42 L, Est GFR (MDRD) Non-Af 35 L, BUN/Creatinine Ratio 19.7, Glucose 497 H*, Calcium 10.3 H, Troponin I 0.018 10/25/19 12:10: Hemoglobin A1c 13.2 H 10/25/19 12:10: Magnesium 2.3, Iron 46 L, TIBC 298, Iron Saturation 15.4, Ferritin 454 H, TSH 1.99 10/25/19 12:10: Phosphorus 4.3 10/25/19 15:08: Troponin I < 0.015 10/25/19 15:50: POC Glucose 340 H 10/25/19 18:36: Sodium 132 L, Potassium 4.8, Chloride 95 L, Carbon Dioxide 28.0, Anion Gap 9, BUN 38 H, Creatinine 1.96 H, Estim Creat Clear Calc 29.06, Est GFR (MDRD) Af Amer 42 L, Est GFR (MDRD) Non-Af 35 L, BUN/Creatinine Ratio 19.4, Glucose 396 H, Calcium 9.2 10/25/19 18:36: Troponin I 0.017 10/25/19 22:22: POC Glucose 280 H 10/26/19 06:30: WBC 6.2, RBC 4.44 L, Hgb 11.9 L, Hct 36.5 L, MCV 82.2, MCH 26.8 L, MCHC 32.6, RDW Std Deviation 53.6 H, RDW Coeff of Torie 17.8 H, Plt Count 110 L, MPV 11.5 10/26/19 06:30: Sodium 131 L, Potassium 4.3, Chloride 99, Carbon Dioxide 26.0, Anion Gap 6, BUN 32 H, Creatinine 1.50 H, Estim Creat Clear Calc 37.97, Est GFR (MDRD) Af Amer 58 L, Est GFR (MDRD) Non-Af 48 L, BUN/Creatinine Ratio 21.3 H, Glucose 265 H, Calcium 8.6, Phosphorus 3.6, Magnesium 2.1, Total Bilirubin 0.80, AST 114 H, ALT 64 H, Alkaline Phosphatase 129 H, Total Protein 6.6, Albumin 2.9 L, Globulin 3.7, Albumin/Globulin Ratio 0.8 L, Triglycerides 200 H, Cholesterol 94, LDL Cholesterol 25, VLDL Cholesterol 40, HDL Cholesterol 29 L 10/26/19 06:32: POC Glucose 273 H Diagnostic Data Brain CT 10/25/19 10:25 IMPRESSION: Chronic involutional changes of the brain. Soft tissue swelling and laceration overlying the left frontal bone. Electronically Signed: Elpidio Cuevas, at 12:24 EST , Service support , Cervical Spine CT 10/25/19 10:25 IMPRESSION: Multilevel degenerative changes, as described above. Electronically Signed: Elpidio Cuevas, at 12:28 EST , Service support , Chest X-Ray 10/25/19 10:25 IMPRESSION: Stable scarring at the lung bases. Electronically Signed: Elpidio Cuevas, at 11:26 EST , Service support , Current Medications Acetaminophen (Tylenol) 650 mg PO Q6H PRN PRN PRN Reason: Pain Score 1-3/Temp > 100.7 F Last Admin: 10/26/19 03:01 Dose: 650 mg Documented by: Al Hydroxide/Mg Hydroxide (Mylanta Ii) 30 ml PO Q6H PRN PRN PRN Reason: Gastric Burning Amiodarone HCl (Cordarone) 200 mg PO BID [facility] Last Admin: 10/25/19 22:16 Dose: 200 mg Documented by: Apixaban (Eliquis) 2.5 mg PO BID [facility] Last Admin: 10/25/19 22:16 Dose: 2.5 mg Documented by: Atorvastatin Calcium (Lipitor) 40 mg PO DAILY@2200 [facility] Last Admin: 10/25/19 22:17 Dose: 40 mg Documented by: Buspirone HCl (Buspar) 10 mg PO BID [facility] Last Admin: 10/25/19 22:16 Dose: 10 mg Documented by: Doxepin HCl (Doxepin Hcl) 100 mg PO QHS [facility] Last Admin: 10/25/19 22:16 Dose: 100 mg Documented by: Ferrous Sulfate (Ferrous Sulfate) 325 mg PO 1200,1700 [facility] Last Admin: 10/25/19 15:55 Dose: 325 mg Documented by: Glucagon () 1 mg IM .X1 PRN PRN Reason: Hypoglycemia Sodium Chloride () 1,000 mls @ 75 mls/hr IV .[id number] [facility] Last Admin: 10/26/19 04:37 Dose: 75 mls/hr Documented by: Dextrose (Dextrose 10%-Water) 250 mls @ 999 mls/hr IV X1 PRN; Protocol PRN Reason: HYPOGLYCEMIA Insulin Human Lispro (Humalog Kwikpen (Bkc)) [facility]; Protocol Last Admin: 10/26/19 06:33 Dose: 3 u Documented by: Magnesium Hydroxide (Milk Of Magnesia) 30 ml PO DAILY PRN PRN PRN Reason: Constipation Melatonin (Melatonin) 3 mg PO QHS PRN PRN PRN Reason: INSOMNIA Morphine Sulfate () 2 mg IV Q3H PRN PRN PRN Reason: Pain Score 6-10/10 Multivitamins/Minerals (Multivitamin With Minerals) 1 tablet PO DAILY@0800 [facility] Multivitamins/Minerals (Healthy Eyes) 1 capsule PO BIDCM [facility] Last Admin: 10/25/19 15:55 Dose: 1 capsule Documented by: Nitroglycerin (Nitrostat) 0.4 mg SUBLINGUAL Q5M PRN PRN Reason: CARDIAC/CHEST PAIN Ondansetron HCl (Zofran) 4 mg IV Q8H PRN PRN PRN Reason: NAUSEA/VOMITING Oxycodone HCl (Oxyir) 5 mg PO Q6H PRN PRN PRN Reason: Pain Score 4-5/10 Senna/Docusate Sodium (Senokot-S, Martha-Colace) 2 tablet PO BID PRN PRN PRN Reason: Constipation Sodium Chloride () 10 - 40 ml IV UD PRN PRN Reason: SALINE FLUSH STROKE Vital Signs/Narrative: Vital Signs Pulse Ox 10/26/19 07:45 91 Medical Necessity - Tobacco Use Smoking Status: Never smoker Tobacco Use: Non-smoker Assessment/Plan All Active Problems (Last Reviewed 10/25/19 @ 22:30 by Kat Heck DO) Near syncope (Acute) Bradycardia (Acute) Fall (Acute) Abrasions of multiple sites (Acute) Need for Tdap vaccination (Acute) Hyponatremia (Acute) Hyperkalemia (Acute) Acute on chronic renal failure (Acute) Dehydration (Acute) Exposed orthopaedic hardware (Resolved) Status post hardware removal (Resolved) Stenosis of right subclavian artery (Resolved) Ulcer of right ankle (Resolved) 1. Debility due to mechanical fall, with closed head trauma CT of the brain showed soft tissue swelling over right frontal lobe has had numerous falls over the past few weeks he was bradycardic, which was also contributed to falls and antecedent lightheadedness. fall precautions will likely need to DC eliquis completely o/a of frequent falls and risk of intracranial bleed. Eliquis held today PT/OT on board fall precautions 2. AUGUSTINA on CKD stage II Creatinine was 1.96 on admission and is now down to 1.5. Baseline creatinine is around 1.18. 6 is on hold and patient being hydrated slowly. 3. Hyperkalemia: Likely due to acute on chronic CKD as well as patient being on spironolactone and WEI inhibitor Spironolactone and lisinopril are on hold. Hyperkalemia has resolved and potassium is down to 4.3. 4. Hyponatremia likely a hypotonic, hypovolemic hyponatremia due to dehydration sodium was 127 on admission, and is now 131 lasix on hold. Will continue to hydrate and monitor 5. Bradycardia likely medication induced. on amiodarone and metoprolol at home. Metoprolol on hold. still on amiodarone. HR was down to the 40s, and is now up to 62 this morning. will continue monitoring; if HR remains well controlled on only amiodarone, I will consider discontinuing metoprolol completely TSH was 1.99 6. Hypercalcemia: Resolved. Calcium was 10.3 on admission likely due to dehydration. Calcium is now down to 8.6. 7. Uncontrolled type 2 diabetes mellitus: Had hyperglycemia on admission. On insulin sliding scale. A1c was 13.2. Glipizide held due to acute renal failure. Considering A1c being 13.2, will need to start insulin for better control of diabetes. Will start Lantus 10 units nightly. ISS. Deonte [facility] it training specialist consult for diabetes education 8. Afib: rate and rhythm controlled. On amiodarone. Metoprolol on hold as above. eliquis held today o/a of mechanical falls and hematoma over right eye. 9. Hypetension: lisinopril and metoprolol as well as spironolactone on hold as above. 10. CAD s/p CABG: On statin. Metoprolol currently on hold. 11. Anxiety and depression: on doxepin. VT prophylaxis: SCDs. Code Visit Inpatient E&M: [id number] [facility] L3
[2019-10-26] MEDS: busPIRone 5 MG Tablet 10 MG PO ×2 (11:00→22:00)
[2019-10-26] MEDS: Multivitamins,Ther W-Minerals Tablet 1 TABLET PO (11:00)
[2019-10-26] MEDS: Multivitamin (Healthy Eyes) Capsule 1 CAP PO ×2 (11:00→17:41)
[2019-10-26] MEDS: Ferrous Sulfate 325 MG Tablet PO ×2 (11:01→17:41)
[2019-10-26] MEDS: Amiodarone 200 MG Tablet PO (11:01)
[2019-10-26 11:20] LABS: Bedside Glucose 349 mg/dL (70-110)
--- NOTE | 2019-10-26 11:20 | CASEMGMT ---
Addendum entered by Gi Kaufman 10/26/19 11:42: S/w Eli [facility] desktop support consultant and made aware patient wants [facility] for PT/SN for PDC Tomorrow vs Monday. Unable to say if will accept and advised this CM to fax facesheet and order to [facility] and Tami will contact Monday. This Cm faxed above to [facility] and green sheet for DC placed in chart if needed for nurse to f/u. S. REYNOLD Kaufman Original Note: RN CM Assessment Introduced role of RN CM to patient, patient currently sitting up in chair.? Patient is alert, oriented and able?to participate in RN CM Assessment. ?Care providers, pharmacy, and demographics verified. Presentation: lightheaded falling to ground on concrete sidewalk when getting mail Admit Dx: Near Syncope, Closed Head Wound, Hyponatremia, ARF Re-Admit: No Barriers/Issues: Patient lives alone, has fallen three times in the past month. Is on Eliquis- would like Coupon Card for cost assist is remains on Eliquis. PCP: Jeremi Morel Specialists: Cardio- Dr Diggs Preferred Pharmacy: [facility] Insurance: [employer] HMO Rx Benefit:?Yes ?LNOK: Dtr Shital Fair LW/HPOA: Has a LW, made aware not on file at [facility] and if brought in would scan copy on file. Unsure of completing/having HPOA. Devin offered information or service on this admission. Made aware can return as an outpatient to complete with Dept. Living Arrangements:? Lives alone in ground level apartment, no steps to enter ADL?s: Was ambulating independently and not using his WW. States started using WW after this last fall for this admission. Independent with ADLs Transportation: Patient drives, Dtr to transport upon DC DME: WW HHC: None SNF: Past at [facility] Goal: Home and aware per PT/OT recommending additional tx. In Network HH list given as patient states HHC better than Outpatient Tx per choice/safety. Patient states preference is [facility]. Denies any additional issues, concerns or needs or questions with DC planning at this time. Aware CM remains available for any emerging needs. DC PLAN: Home, patient current with [facility] for BP and weight check, [facility] for PT, SN. Eliquis Coupon Card if remains on Eliquis for cost assist. Rimma Kaufman RNCM
[2019-10-26 17:01] LABS: Bedside Glucose 311 mg/dL (70-110)
[2019-10-26] MEDS: BACITRACIN 15 GM Tube 1 APPLIC TOPICAL (17:46)
[2019-10-26] MEDS: DOXEPIN HCL 50 MG CAPSULE 100 MG PO (21:59)
[2019-10-26] MEDS: Atorvastatin Calcium 40 MG Tablet PO (22:03)
[2019-10-26] MEDS: Metoprolol Tartrate 25 MG Tablet PO (22:03)
[2019-10-27] VITALS (12 sets, daily range): BP systolic 116–138; BP diastolic 71–82; PULSE 44–76; RESP 15–24; TEMP 36.7–36.9; O2SAT 96–100
[2019-10-27 01:06] LABS: Bedside Glucose 246 mg/dL (70-110)
[2019-10-27 06:31] LABS: Absolute Lymphocyte Count 1.44 X10^3/uL (0.83-4.51); Absolute Neutrophil Count 4.1 X10^3/uL (2.0-7.7); Basophil# 0.02 X10^3/uL; Basophil% 0.3 % (0-1); Eosinophil# 0.15 X10^3/uL; Eosinophils% 2.4 % (0-5); Hematocrit 36.8 % (40-54); Hemoglobin 11.9 g/dL (13.0-16.5); Lymphocyte # 1.44 X10^3/ul (4.0); Lymphocyte % 22.7 % (19-41); Mean Corp Hgb Conc 32.3 g/dL (32-36); Mean Corpuscular Hgb 26.9 pg (27.0-32.0); Mean Corpuscular Volume 83.3 fL (80-94); Mean Platelet Vol. 10.7 fl (6.2-12.0); Monocyte# 0.66 X10^3/uL; Monocyte% 10.4 % (0-10); NRBC Flagged by Analyzer 0 % (0-5); Neutrophil # 4.05 X10^3/uL (2.7-7.7); Neutrophil % 63.7 % (47-70); Platelet Count 106 K/mm3 (150-450); RBC Distribution Width CV 17.9 % (11.6-14.6); RBC Distribution Width SD 55.1 fl (35.1-43.9); Red Blood Count 4.42 M/mm3 (4.6-6.2); White Blood Count 6.4 K/mm3 (4.4-11.0)
[2019-10-27] MEDS: 0.9% Normal Saline 1,000 ML 75 ML IV ×2 (06:34→18:54)
[2019-10-27] MEDS: Insulin Lispro 100 UNIT/ML INSULN.PEN SC ×4 (06:40→22:57)
[2019-10-27 07:44] LABS: Anion Gap 5 (5-15); BUN 24 mg/dL (7-18); BUN/Creat Ratio 19.8 RATIO (10-20); Calcium,Total 8.3 mg/dL (8.5-10.1); Chloride 103 mmol/L (98-107); Creatinine, Serum 1.21 mg/dL (0.70-1.30); EST Glomerular Filtration Rate 61 mL/min (>60); Est Glom Filt Rate - Afr Amer 74 mL/min (>60); Estimated Creatinine Clearance 47.07 ml/min; Glucose 249 mg/dL (74-106); Potassium 4.3 mmol/L (3.5-5.1); Sodium Level 134 mmol/L (136-145)
[2019-10-27] MEDS: Multivitamins,Ther W-Minerals Tablet 1 TABLET PO (10:37)
[2019-10-27] MEDS: busPIRone 5 MG Tablet 10 MG PO ×2 (10:37→22:57)
[2019-10-27] MEDS: Multivitamin (Healthy Eyes) Capsule 1 CAP PO ×2 (10:37→17:18)
[2019-10-27] MEDS: BACITRACIN 15 GM Tube 1 APPLIC TOPICAL ×2 (10:37→20:25)
[2019-10-27] MEDS: Ferrous Sulfate 325 MG Tablet PO ×2 (10:38→17:18)
[2019-10-27] MEDS: Amiodarone 200 MG Tablet PO (10:38)
[2019-10-27 11:25] LABS: Bedside Glucose 242 mg/dL (70-110)
--- NOTE | 2019-10-27 11:38 | PN_ITS ---
Patient Problems: Active and Suspected Problems (Last Reviewed 10/25/19 @ 22:30 by Kat Heck DO) Near syncope (Acute) Bradycardia (Acute) Fall (Acute) Abrasions of multiple sites (Acute) Need for Tdap vaccination (Acute) Hyponatremia (Acute) Hyperkalemia (Acute) Acute on chronic renal failure (Acute) Dehydration (Acute) Subjective: Patient seen and examined. He has no complaints. Review of systems otherwise negative. Patient was noted to be bradycardic during the night while he was sleeping with heart rate going down to the 40s. Heart rate went as low as 44 at 3:12 AM. Heart rate was 154 this morning at time of review. Labs and vitals reviewed. Vitals/I&O's: Vital Signs Temp Pulse Resp BP Pulse Ox 98.3 F 54 L 16 138/71 H 98 10/27/19 09:55 10/27/19 11:13 10/27/19 09:55 10/27/19 09:55 10/27/19 09:55 Oxygen Delivery Method Room Air Weight: 191 lb 12.835 oz Body Mass Index (BMI) 27.4 Finger Stick Blood Glucose 98 Orthostatic Vital Signs Start: 10/25/19 14:53 Freq: q24h Status: Active Protocol: Activity Type Activity Date Activity User E-Sign Co-Sign Detail Recorded Client Recorded Date Recorded By Document 10/26/19 02:48 MAB [id number] 10/26/19 02:57 MAB 10/26/19 02:48 Orthostatic Vitals Standing -Blood Pressure (90/60-120/80) 109/61 -Extremity Use Right Arm -Pulse Rate (60-100) 65 Sitting -Blood Pressure (90/60-120/80) 115/61 -Extremity Use Right Arm -Pulse Rate (60-100) 60 Lying -Blood Pressure (90/60-120/80) 123/61 H -Extremity Use Right Arm -Pulse Rate (60-100) 55 L Intake and Output for Last 24 Hours 10/25/19 10/26/19 10/27/19 23:59 23:59 23:59 Intake Total 1220 / 1220 3271.25 / 3271.25 1210 / 1210 Output Total 900 / 900 2014 835 / 835 Balance 320 / 320 1256.25 / 1256.25 375 / 375 General: Alert, Oriented x3, Cooperative, - - has resolving hematoma over right side of face HEENT: Atraumatic, PERRLA, EOMI, Normocephalic Oral: Moist Mucosa Neck: Supple, No JVD, Negative Carotid Bruits Lungs: Clear to auscultation, Normal air movement Cardiovascular: Normal S1, Normal S2, No murmurs, Bradycardic Abdomen: Bowel Sounds Present, Soft, Non Tender, Non-Distended, No Hepato- splenomegaly Extremities: No clubbing, No cyanosis, No edema, Capillary Refill Less than 3 Seconds Skin: No rashes, No breakdown Musculoskeletal: No Tenderness to Palpation of Joints or Extremities Lymphatic: No Cervical, Supraclavicular, or Inguinal Adenopathy Neurological: Cranial nerves II-XII grossly intact, Neuro grossly intact, Motor Exam 5/5 strength throughout Psych/Mental Status: Normal Affect, Appropriate, Alert and oriented to time, place, person, mood and affect Laboratory Results 10/26/19 16:58: POC Glucose 311 H 10/26/19 21:51: POC Glucose 246 H 10/27/19 05:49: WBC 6.4, RBC 4.42 L, Hgb 11.9 L, Hct 36.8 L, MCV 83.3, MCH 26.9 L, MCHC 32.3, RDW Std Deviation 55.1 H, RDW Coeff of Torie 17.9 H, Plt Count 106 L , MPV 10.7, Immature Gran % (Auto) 0.500, Neut % (Auto) 63.7, Lymph % (Auto) 22.7, Franklin % (Auto) 10.4 H, Eos % (Auto) 2.4, Baso % (Auto) 0.3, Absolute Neuts (auto) 4.1, Absolute Lymphs (auto) 1.44, Nucleated RBC % 0 10/27/19 05:49: Sodium 134 L, Potassium 4.3, Chloride 103, Carbon Dioxide 26.0, Anion Gap 5, BUN 24 H, Creatinine 1.21, Estim Creat Clear Calc 47.07, Est GFR (MDRD) Af Amer 74, Est GFR (MDRD) Non-Af 61, BUN/Creatinine Ratio 19.8, Glucose 249 H, Calcium 8.3 L 10/27/19 06:39: POC Glucose 242 H Diagnostic Data Brain CT 10/25/19 10:25 IMPRESSION: Chronic involutional changes of the brain. Soft tissue swelling and laceration overlying the left frontal bone. Electronically Signed: Elpidio Faith, at 12:24 EST , Service support , Cervical Spine CT 10/25/19 10:25 IMPRESSION: Multilevel degenerative changes, as described above. Electronically Signed: Elpidio Faith, at 12:28 EST , Service support , Chest X-Ray 10/25/19 10:25 IMPRESSION: Stable scarring at the lung bases. Electronically Signed: Elpidio Faith, at 11:26 EST , Service support , Current Medications Acetaminophen (Tylenol) 650 mg PO Q6H PRN PRN PRN Reason: Pain Score 1-3/Temp > 100.7 F Last Admin: 10/26/19 03:01 Dose: 650 mg Documented by: Al Hydroxide/Mg Hydroxide (Mylanta Ii) 30 ml PO Q6H PRN PRN PRN Reason: Gastric Burning Amiodarone HCl (Cordarone) 200 mg PO DAILY [facility] Last Admin: 10/27/19 10:38 Dose: 200 mg Documented by: Atorvastatin Calcium (Lipitor) 40 mg PO DAILY@2200 [facility] Last Admin: 10/26/19 22:03 Dose: 40 mg Documented by: Bacitracin (Bacitracin Ointment) 1 applic TOPICAL BID [facility]; Protocol Last Admin: 10/27/19 10:37 Dose: 1 applicatio Documented by: Buspirone HCl (Buspar) 10 mg PO BID [facility] Last Admin: 10/27/19 10:37 Dose: 10 mg Documented by: Doxepin HCl (Doxepin Hcl) 100 mg PO QHS [facility] Last Admin: 10/26/19 21:59 Dose: 100 mg Documented by: Ferrous Sulfate (Ferrous Sulfate) 325 mg PO 1200,1700 [facility] Last Admin: 10/27/19 10:38 Dose: 325 mg Documented by: Glucagon () 1 mg IM .X1 PRN PRN Reason: Hypoglycemia Sodium Chloride () 1,000 mls @ 75 mls/hr IV .[id number] [facility] Last Admin: 10/27/19 06:34 Dose: 75 mls/hr Documented by: Dextrose (Dextrose 10%-Water) 250 mls @ 999 mls/hr IV X1 PRN; Protocol PRN Reason: HYPOGLYCEMIA Insulin Glargine (Lantus ([facility])) 10 units SC QHS [facility] Last Admin: 10/26/19 22:01 Dose: 10 u Documented by: Insulin Human Lispro (Humalog Kwikpen ([facility])) 0 unit SC ACHS [facility]; Protocol Last Admin: 10/27/19 11:34 Dose: 3 u Documented by: Magnesium Hydroxide (Milk Of Magnesia) 30 ml PO DAILY PRN PRN PRN Reason: Constipation Melatonin (Melatonin) 3 mg PO QHS PRN PRN PRN Reason: INSOMNIA Metoprolol Tartrate (Lopressor (Beta Triston)) 25 mg PO BID [facility] Last Admin: 10/27/19 07:49 Dose: Not Given Documented by: Morphine Sulfate () 2 mg IV Q3H PRN PRN PRN Reason: Pain Score 6-10/10 Multivitamins/Minerals (Multivitamin With Minerals) 1 tablet PO DAILY@0800 [facility] Last Admin: 10/27/19 10:37 Dose: 1 tablet Documented by: Multivitamins/Minerals (Healthy Eyes) [facility] Last Admin: 10/27/19 10:37 Dose: 1 capsule Documented by: Nitroglycerin (Nitrostat) 0.4 mg SUBLINGUAL Q5M PRN PRN Reason: CARDIAC/CHEST PAIN Ondansetron HCl (Zofran) 4 mg IV Q8H PRN PRN PRN Reason: NAUSEA/VOMITING Oxycodone HCl (Oxyir) 5 mg PO Q6H PRN PRN PRN Reason: Pain Score 4-5/10 Senna/Docusate Sodium (Senokot-S, Martha-Colace) 2 tablet PO BID PRN PRN PRN Reason: Constipation Sodium Chloride () 10 - 40 ml IV UD PRN PRN Reason: SALINE FLUSH STROKE Vital Signs/Narrative: Vital Signs Temp Pulse Resp BP Pulse Ox 10/27/19 11:13 54 L 10/27/19 09:55 98.3 F 70 16 138/71 H 98 10/27/19 07:45 100 Medical Necessity - Tobacco Use Smoking Status: Never smoker Tobacco Use: Non-smoker Assessment/Plan All Active Problems (Last Reviewed 10/25/19 @ 22:30 by Kat Heck DO) Near syncope (Acute) Bradycardia (Acute) Fall (Acute) Abrasions of multiple sites (Acute) Need for Tdap vaccination (Acute) Hyponatremia (Acute) Hyperkalemia (Acute) Acute on chronic renal failure (Acute) Dehydration (Acute) Exposed orthopaedic hardware (Resolved) Status post hardware removal (Resolved) Stenosis of right subclavian artery (Resolved) Ulcer of right ankle (Resolved) 1. Debility due to mechanical fall, with closed head trauma * CT of the brain showed soft tissue swelling over right frontal lobe * PT/OT on board * will discuss with primary sewing machine attachment tester tomorrow about discontinueing eliquis permanently o/a of recurrent falls * fall precautions * PT/OT on board * orthostatics were negative. * 2. AUGUSTINA on CKD stage II: resolved. Cr is down to 1.23 3. Hyperkalemia:resolved. Spironolactone and lisinopril remain on hold. K is 4.3 today 4. Hyponatremia: sodium is 134 today. Will monitor * 5. Bradycardia * likely medication induced. * Was started on amiodarone 25 mg twice daily which is half his dose and amiodarone was also decreased to 200 mg daily from twice daily. Patient h owever was bradycardic during the night albeit it was also was sleeping. * Will hold metoprolol. To discuss with primary sewing machine attachment tester about dosage of amiodarone and metoprolol tomorrow. * * 6. Hypercalcemia: * Resolved. 7. Uncontrolled type 2 diabetes mellitus: * Had hyperglycemia on admission. * On insulin sliding scale. A1c was 13.2. * Started on Lantus 10 units nightly. * Sliding scale. Accu-Cheks AC at bedtime. * 8. Afib: rate and rhythm controlled. On amiodarone. Metoprolol on hold as above. eliquis on hold o/a of recurrent falls and hematoma. 9. Hypetension: lisinopril and metoprolol as well as spironolactone on hold as above. 10. CAD s/p CABG: On statin. Metoprolol currently on hold. 11. Anxiety and depression: on doxepin. VT prophylaxis: SCDs. Code Visit Inpatient E&M: [id number] [facility] Hosp L2
[2019-10-27 11:50] LABS: Bedside Glucose 270 mg/dL (70-110)
--- NOTE | 2019-10-27 15:26 | NURSING ---
Patient urinary straight catheterized for 1085cc clear yellow urine. Tolerated procedure well. Patient states he feels much better.
[2019-10-27 17:25] LABS: Bedside Glucose 235 mg/dL (70-110)
[2019-10-27] MEDS: DOXEPIN HCL 50 MG CAPSULE 100 MG PO (22:57)
[2019-10-27] MEDS: Atorvastatin Calcium 40 MG Tablet PO (22:58)
[2019-10-27 23:41] LABS: Bedside Glucose 218 mg/dL (70-110)
[2019-10-28] VITALS (7 sets, daily range): BP systolic 102–150; BP diastolic 51–86; PULSE 64–91; RESP 16–17; TEMP 36.5–36.8; O2SAT 96–100
--- NOTE | 2019-10-28 01:22 | NURSING ---
Per MD request, this RN assisted pt to bathroom to see if he was able to void. Pt able to void only approximately 75 mL. This RN will straight cath patient per verbal order from Dr. Nesbitt.
[2019-10-28 06:14] LABS: Absolute Lymphocyte Count 1.39 X10^3/uL (0.83-4.51); Absolute Neutrophil Count 3.4 X10^3/uL (2.0-7.7); Basophil# 0.02 X10^3/uL; Basophil% 0.4 % (0-1); Eosinophil# 0.15 X10^3/uL; Eosinophils% 2.8 % (0-5); Hematocrit 37.1 % (40-54); Hemoglobin 12.1 g/dL (13.0-16.5); Lymphocyte # 1.39 X10^3/ul (4.0); Lymphocyte % 25.6 % (19-41); Mean Corp Hgb Conc 32.6 g/dL (32-36); Mean Corpuscular Hgb 26.9 pg (27.0-32.0); Mean Corpuscular Volume 82.6 fL (80-94); Mean Platelet Vol. 10.8 fl (6.2-12.0); Monocyte# 0.47 X10^3/uL; Monocyte% 8.7 % (0-10); NRBC Flagged by Analyzer 0 % (0-5); Neutrophil # 3.39 X10^3/uL (2.7-7.7); Neutrophil % 62.3 % (47-70); Platelet Count 102 K/mm3 (150-450); RBC Distribution Width SD 54.4 fl (35.1-43.9); Red Blood Count 4.49 M/mm3 (4.6-6.2); White Blood Count 5.4 K/mm3 (4.4-11.0)
[2019-10-28 06:26] LABS: Anion Gap 5 (5-15); BUN 15 mg/dL (7-18); BUN/Creat Ratio 15.8 RATIO (10-20); Calcium,Total 8.3 mg/dL (8.5-10.1); Chloride 106 mmol/L (98-107); Creatinine, Serum 0.95 mg/dL (0.70-1.30); EST Glomerular Filtration Rate 81 mL/min (>60); Est Glom Filt Rate - Afr Amer 98 mL/min (>60); Estimated Creatinine Clearance 59.95 ml/min; Glucose 228 mg/dL (74-106); Potassium 4.3 mmol/L (3.5-5.1); Sodium Level 136 mmol/L (136-145)
[2019-10-28] MEDS: Insulin Lispro 100 UNIT/ML INSULN.PEN SC ×3 (07:04→16:32)
[2019-10-28 07:10] LABS: Bedside Glucose 273 mg/dL (70-110)
[2019-10-28] MEDS: Multivitamin (Healthy Eyes) Capsule 1 CAP PO ×2 (08:38→16:32)
[2019-10-28] MEDS: busPIRone 5 MG Tablet 10 MG PO (08:38)
[2019-10-28] MEDS: Multivitamins,Ther W-Minerals Tablet 1 TABLET PO (08:38)
[2019-10-28] MEDS: Amiodarone 200 MG Tablet PO (08:39)
[2019-10-28] MEDS: 0.9% Normal Saline 1,000 ML 75 ML IV (08:39)
[2019-10-28] MEDS: Metoprolol Tartrate 25 MG Tablet PO (08:39)
[2019-10-28] MEDS: BACITRACIN 15 GM Tube 1 APPLIC TOPICAL (08:40)
--- NOTE | 2019-10-28 09:00 | NURSING ---
Nursing called daughter, Jigna, to give update per patient request.
[2019-10-28 09:02] LABS: PSA,Total - Annual Screen 0.97 ng/mL (0.00-4.00)
[2019-10-28] MEDS: Tamsulosin HCl 0.4 MG Capsule PO (09:37)
[2019-10-28] MEDS: Ferrous Sulfate 325 MG Tablet PO ×2 (11:31→16:32)
[2019-10-28 11:41] LABS: Bedside Glucose 347 mg/dL (70-110)
--- NOTE | 2019-10-28 11:47 | CASEMGMT ---
Social Work Per physician, pt requesting to go to SNF. CRUZ met with pt in the room and introduced self and role. Pt states he lives alone and has fallen three times in the last month. Pt is fearful to return home and thinks if he is able to have a couple weeks of therapy he will be stronger and safer at home. CRUZ provided a written list of SNF's in network with insurance and pt would prefer [facility]. Phone call to Vera in TCU and they do have a bed available. Precert information faxed to Jeannette at [employer] and phone call to Jeannette informing that precert referral has been faxed. Will await insurance determination. DRISS Greco
--- NOTE | 2019-10-28 15:06 | PN_ITS ---
Patient Problems: Active and Suspected Problems (Last Reviewed 10/25/19 @ 22:30 by Kat Heck DO) Near syncope (Acute) Bradycardia (Acute) Fall (Acute) Abrasions of multiple sites (Acute) Need for Tdap vaccination (Acute) Hyponatremia (Acute) Hyperkalemia (Acute) Acute on chronic renal failure (Acute) Dehydration (Acute) Subjective: Patient seen and examined today. He complained of burning with urination and frequency of urination. Of note, patient had some urinary retention yesterday, requiring straight cath. Review of systems otherwise negative. Labs and vitals reviewed. Heart rate is now up in the 60s to 90s. Vitals/I&O's: Vital Signs Temp Pulse Resp BP Pulse Ox 97.8 F 72 16 105/68 97 10/28/19 14:20 10/28/19 14:20 10/28/19 14:20 10/28/19 14:20 10/28/19 14:20 Oxygen Delivery Method Room Air Weight: 192 lb 3.889 oz Body Mass Index (BMI) 27.4 Finger Stick Blood Glucose 98 Orthostatic Vital Signs Start: 10/25/19 14:53 Freq: q24h Status: Active Protocol: Activity Type Activity Date Activity User E-Sign Co-Sign Detail Recorded Client Recorded Date Recorded By Document 10/26/19 02:48 MAB [id number] 10/26/19 02:57 MAB 10/26/19 02:48 Orthostatic Vitals Standing -Blood Pressure (90/60-120/80) 109/61 -Extremity Use Right Arm -Pulse Rate (60-100) 65 Sitting -Blood Pressure (90/60-120/80) 115/61 -Extremity Use Right Arm -Pulse Rate (60-100) 60 Lying -Blood Pressure (90/60-120/80) 123/61 H -Extremity Use Right Arm -Pulse Rate (60-100) 55 L Intake and Output for Last 24 Hours 10/26/19 10/27/19 10/28/19 23:59 23:59 23:59 Intake Total 3271.25 / 3271.25 2500 / 2500 1240 / 1240 Output Total 2014 2540 / 2540 1555 / 1555 Balance 1256.25 / 1256.25 -40 / -40 -315 / -315 General: Alert, Oriented x3, Cooperative, - - hematoma over right side of face virtually resolved HEENT: Atraumatic, PERRLA, EOMI, Normocephalic Oral: Moist Mucosa Neck: Supple, No JVD, Negative Carotid Bruits Lungs: Clear to auscultation, Normal air movement Cardiovascular: Normal S1, Normal S2, No murmurs, normal rate and rhythm. Abdomen: Bowel Sounds Present, Soft, Non Tender, Non-Distended, No Hepato- splenomegaly Extremities: No clubbing, No cyanosis, No edema, Capillary Refill Less than 3 Se conds Skin: No rashes, No breakdown Musculoskeletal: No Tenderness to Palpation of Joints or Extremities Lymphatic: No Cervical, Supraclavicular, or Inguinal Adenopathy Neurological: Cranial nerves II-XII grossly intact, Neuro grossly intact, Motor Exam 5/5 strength throughout Psych/Mental Status: Normal Affect, Appropriate, Alert and oriented to time, place, person, mood and affect Laboratory Results 10/27/19 17:15: POC Glucose 235 H 10/27/19 22:55: POC Glucose 218 H 10/28/19 05:30: WBC 5.4, RBC 4.49 L, Hgb 12.1 L, Hct 37.1 L, MCV 82.6, MCH 26.9 L, MCHC 32.6, RDW Std Deviation 54.4 H, RDW Coeff of Torie 18.0 H, Plt Count 102 L , MPV 10.8, Immature Gran % (Auto) 0.200, Neut % (Auto) 62.3, Lymph % (Auto) 25.6, [place] % (Auto) 8.7, Eos % (Auto) 2.8, Baso % (Auto) 0.4, Absolute Neuts (auto) 3.4, Absolute Lymphs (auto) 1.39, Nucleated RBC % 0 10/28/19 05:30: Sodium 136, Potassium 4.3, Chloride 106, Carbon Dioxide 25.0, Anion Gap 5, BUN 15, Creatinine 0.95, Estim Creat Clear Calc 59.95, Est GFR (MDRD) Af Amer 98, Est GFR (MDRD) Non-Af 81, BUN/Creatinine Ratio 15.8, Glucose 228 H, Calcium 8.3 L 10/28/19 05:30: PSA Screen 0.97 10/28/19 07:03: POC Glucose 273 H 10/28/19 11:28: POC Glucose 347 H Current Medications Acetaminophen (Tylenol) 650 mg PO Q6H PRN PRN PRN Reason: Pain Score 1-3/Temp > 100.7 F Last Admin: 10/26/19 03:01 Dose: 650 mg Documented by: Al Hydroxide/Mg Hydroxide (Mylanta Ii) 30 ml PO Q6H PRN PRN PRN Reason: Gastric Burning Amiodarone HCl (Cordarone) 200 mg PO DAILY [facility] Last Admin: 10/28/19 08:39 Dose: 200 mg Documented by: Atorvastatin Calcium (Lipitor) 40 mg PO DAILY@2200 [facility] Last Admin: 10/27/19 22:58 Dose: 40 mg Documented by: Bacitracin (Bacitracin Ointment) 1 applic TOPICAL BID [facility]; Protocol Last Admin: 10/28/19 08:40 Dose: 1 applicatio Documented by: Buspirone HCl (Buspar) 10 mg PO BID [facility] Last Admin: 10/28/19 08:38 Dose: 10 mg Documented by: Doxepin HCl (Doxepin Hcl) 100 mg PO QHS [facility] Last Admin: 10/27/19 22:57 Dose: 100 mg Documented by: Ferrous Sulfate (Ferrous Sulfate) 325 mg PO 1200,1700 [facility] Last Admin: 10/28/19 11:31 Dose: 325 mg Documented by: Glucagon () 1 mg IM .X1 PRN PRN Reason: Hypoglycemia Sodium Chloride () 1,000 mls @ 75 mls/hr IV .[id number] [facility] Last Admin: 10/28/19 08:39 Dose: 75 mls/hr Documented by: Dextrose (Dextrose 10%-Water) 250 mls @ 999 mls/hr IV X1 PRN; Protocol PRN Reason: HYPOGLYCEMIA Ceftriaxone Sodium (Rocephin) 1 gm in 50 mls @ 100 mls/hr IV Q24 [facility] Insulin Glargine (Lantus (Bkc)) 10 units SC QHS [facility] Last Admin: 10/27/19 22:58 Dose: 10 u Documented by: Insulin Human Lispro (Humalog Kwikpen (Bkc)) 0 unit SC ACHS [facility]; Protocol Last Admin: 10/28/19 11:30 Dose: 4 u Documented by: Magnesium Hydroxide (Milk Of Magnesia) 30 ml PO DAILY PRN PRN PRN Reason: Constipation Melatonin (Melatonin) 3 mg PO QHS PRN PRN PRN Reason: INSOMNIA Metoprolol Tartrate (Lopressor (Beta Triston)) 25 mg PO BID [facility] Last Admin: 10/28/19 08:39 Dose: 25 mg Documented by: Morphine Sulfate () 2 mg IV Q3H PRN PRN PRN Reason: Pain Score 6-10/10 Multivitamins/Minerals (Multivitamin With Minerals) 1 tablet PO DAILY@0800 [facility] Last Admin: 10/28/19 08:38 Dose: 1 tablet Documented by: Multivitamins/Minerals (Healthy Eyes) 1 capsule PO BIDCM [facility] Last Admin: 10/28/19 08:38 Dose: 1 capsule Documented by: Nitroglycerin (Nitrostat) 0.4 mg SUBLINGUAL Q5M PRN PRN Reason: CARDIAC/CHEST PAIN Ondansetron HCl (Zofran) 4 mg IV Q8H PRN PRN PRN Reason: NAUSEA/VOMITING Oxycodone HCl (Oxyir) 5 mg PO Q6H PRN PRN PRN Reason: Pain Score 4-5/10 Senna/Docusate Sodium (Senokot-S, Martha-Colace) 2 tablet PO BID PRN PRN PRN Reason: Constipation Sodium Chloride () 10 - 40 ml IV UD PRN PRN Reason: SALINE FLUSH Tamsulosin HCl (Flomax) 0.4 mg PO DAILY@1730 [facility] Last Admin: 10/28/19 09:37 Dose: 0.4 mg Documented by: STROKE Vital Signs/Narrative: Vital Signs Temp Pulse Resp BP Pulse Ox 10/28/19 14:20 97.8 F 72 16 105/68 97 Medical Necessity - Tobacco Use Smoking Status: Never smoker Tobacco Use: Non-smoker Assessment/Plan All Active Problems (Last Reviewed 10/25/19 @ 22:30 by Kat Heck DO) Near syncope (Acute) Bradycardia (Acute) Fall (Acute) Abrasions of multiple sites (Acute) Need for Tdap vaccination (Acute) Hyponatremia (Acute) Hyperkalemia (Acute) Acute on chronic renal failure (Acute) Dehydration (Acute) Exposed orthopaedic hardware (Resolved) Status post hardware removal (Resolved) Stenosis of right subclavian artery (Resolved) Ulcer of right ankle (Resolved) 1. Debility due to mechanical fall, with closed head trauma * CT of the brain showed soft tissue swelling over right frontal lobe * PT/OT on board * Discussed with Dr. Sales today about Eliquis. Since it is likely that patient is going to be discharged to a custodial, plan is to continue Eliquis for now. * fall precautions * PT/OT on board * orthostatics were negative. * 2. 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 3. Hyperkalemia: Resolved. 4. Hyponatremia: Resolved * 5. Bradycardia * likely medication induced. * On amiodarone 200 mg daily and metoprolol 25 mg twice daily. Heart rate is now up in the 90s. * Discussed with his cotton agent and will continue current medications. * 6. UTI: * Patient complaining of frequency and burning with urination. * Will start on IV ceftriaxone. * Urinalysis ordered. * To get urine culture based on results of urinalysis. * started on flomax for urine retention * 7. Hypercalcemia: * Resolved. 8. Uncontrolled type 2 diabetes mellitus: * On Lantus 10 units nightly. A1c was 13.2. * Sliding scale. Accu-Cheks AC at bedtime. * Blood sugar has been in the 200s and 300s. Will increase Lantus to 15 units. * now AUGUSTINA has resolved, will start metformin 500mg bid. 9. Afib: * rate and rhythm controlled. * On amiodarone 200mg daily and metoprolol 25 mg twice daily as under 5. * Eliquis was held on admission due to falls and hematoma. * Plan is to resume Eliquis upon discharge. 10. Hypertension: lisinopril and metoprolol as well as spironolactone on hold as above. 11. CAD s/p CABG: On statin and metoprolol. 12. Anxiety and depression: on doxepin. DVT prophylaxis: will resume eliquis Code Visit Inpatient E&M: 06775 Subs Hosp L2
[2019-10-28] MEDS: Ceftriaxone 1 GM/50 ML BAG IV (15:27)
--- NOTE | 2019-10-28 15:39 | PCM.TXEXTCAR ---
- Diet 10/25/19 14:41 Diet: Cardiac: Calorie-Controlled Food consistency:: Regular Liquid Consistency:: Regular/Thin How many daily calories?: 1800 calorie - Routine Orders/Code Status Enema Type: Fleetz Enema Frequency: Daily PRN Suppository Type: Dulcolax 10mg Suppository Frequency: Daily PRN O2 Frequency: PRN Keep PO Greater than or Equal to (%): 90 - Wound(s) RT FOREHEAD Wound Type: Abrasion LT ELBOW Wound Type: Abrasion RT HAND Wound Type: Abrasion ROBBIE KNEE Wound Type: Abrasion - Allergies/Procedures Done in Hospital Allergies/Adverse Reactions: Allergies No Known Allergies Allergy (Verified 10/25/19 09:59) Procedures: None - Type of Care/Length of Stay Estimated LOS: Convalescent Care Less Than 30 days Type of Care Needed: Skilled Rehab Potential: Fair Prognosis: Fair - Additional Orders/Day of Discharge Day of Discharge: 10/28/19 - Dietary and Speech Recommendations Dietitian Recommendations/Changes: Continue same diet. - Follow Up Care Please follow up with your Primary Care Physician in: one week Please Follow Up With: Jeremi Morel MD Please Follow Up With: Thompson Diggs MD When: 1-2 weeks
--- NOTE | 2019-10-28 15:40 | DS.PCM_ITS ---
Discharge Date and Diagnosis - Problem List Patient Problems: Active and Suspected Problems (Last Reviewed 10/25/19 @ 22:30 by Kat eHck DO) Near syncope (Acute) Bradycardia (Acute) Fall (Acute) Abrasions of multiple sites (Acute) Need for Tdap vaccination (Acute) Hyponatremia (Acute) Hyperkalemia (Acute) Acute on chronic renal failure (Acute) Dehydration (Acute) Date of Admission: 10/25/19 Date of Discharge: 10/28/19 - Primary Discharge Diagnosis Active and Suspected Problems (Last Reviewed 10/25/19 @ 22:30 by Kat Heck DO) Near syncope (Acute) Bradycardia (Acute) Fall (Acute) Abrasions of multiple sites (Acute) Need for Tdap vaccination (Acute) Hyponatremia (Acute) Hyperkalemia (Acute) Acute on chronic renal failure (Acute) Dehydration (Acute) - Secondary Discharge Diagnosis Chronic Problems (Last Reviewed 10/25/19 @ 22:30 by Kat Heck DO) Uncontrolled type 2 diabetes mellitus (Chronic) Chronic diastolic (congestive) heart failure (Chronic) Secondary pulmonary arterial hypertension (Chronic) Paroxysmal atrial fibrillation (Chronic) Essential (primary) hypertension (Chronic) Left bundle branch block (Chronic) H/O aortic valve replacement (Chronic 01/01/19) AVR w/ 25 mm Magna Ease Bioprosthetic Valve 01/01/19 H/O coronary artery bypass surgery (Chronic 01/01/19) CABG x 2 VILLALBA-LAD, SVG-Distal RCA and AVR w/ 25 mm Magna Ease Bioprosthetic Valve 01/01/19 Non-rheumatic aortic stenosis (Chronic) AVR w/ 25 mm Magna Ease Bioprosthetic Valve 01/01/19 Atherosclerosis of coronary artery of [place] heart without angina pectoris (Chronic) CABG x 2 VILLALBA-LAD, SVG-Distal RCA and AVR w/ 25 mm Magna Ease Bioprosthetic Valve 01/01/19 Hyperlipidemia (Chronic) Hospital Course and Treatment Operations: None Procedures: None Summary of Care Provided: The patient is a 84 year old M with a PMH as listed. He was admitted through the ED on 10/25/2019 with a complaint of mechanical fall. Patient complained of lightheadedness upon standing and then subsequently became dizzy and fell. He denied losing consciousness. He sustained a hematoma to the right frontal area and also had several abrasions. Patient lives by himself. On admission in the ED pulse rate was 51 and vitals were otherwise stable. Heart rate subsequently went down to the 40s. Initial troponin was normal and sodium was also low at 1.7 with potassium of 5.4. CBC was only significant for platelets of 119,000. CT of the brain without contrast showed soft tissue swelling and laceration over the right frontal bone. CT of the cervical spine showed no fractures and chest x-ray showed no acute cardiopulmonary pathology. He was admitted and managed fo r uncontrolled diabetes mellitus, acute renal failure and bradycardia. Of note, patient was found to be on amiodarone 200 mg twice daily and metoprolol 50 mg twice daily though review of his supervisor cartography visit notes in the outpatient showed that he was supposed to be on amiodarone 200 mg daily. Metoprolol was held and amiodarone was cut down to 200 mg daily. Patient's heart rate gradually improved and he was switched to Toprol 25 mg twice daily. Was also hyperglycemic on admission and A1c was found to be 13.2. He was therefore started on Lantus 10 units every night in addition to the glipizide that he had been on. Creatinine trended down to his baseline of around 1.18 from 1.96 on admission. Hyperkalemia also resolved. Of note, spironolactone was discontinued at time of discharge. PT OT was consulted. Patient required straight cath during admission due to urinary retention and this resolved once he was started on Flomax. Per discussion with patient's primary supervisor cartography (Dr Diggs), plan was to continue Eliquis as patient was going to a controlled environment in the retirement. He is to continue his amiodarone 200 mg daily and metoprolol 25 mg p.o. twice daily. On day of discharge, patient complained of some burning with urination. Urinalysis done was negative and his pain was thought to be due to the straight cathing that he had had twice the day before on account of urinary retention. Patient remained stable and was discharged to his retirement on 10/28/2019. He is to follow-up with his primary care doctor and supervisor cartography within 1 week. Patient seen and examined prior to discharge. He complained of frequency which was due to the Flomax that had been started and also complained of burning with urination. As stated, urinalysis done on account of these complaints were negative and symptoms could have been explained by the Flomax and him having been straight cathed. Review of systems is otherwise negative. Labs and vitals reviewed. Home medication reviewed and reconciled. Patient was counseled that his Eliquis was been continued per cardiology instructions. o/e: [] Vital Signs Height 5 ft 9 in Weight: 192 lb 3.889 oz Weight in Pounds 192.2 lbs Pulse Ox 97 Temperature 97.8 F Pulse Rate [Standing] 65 Pulse Rate [Sitting] 60 Pulse Rate [Lying] 55 Pulse Rate 84 Respiratory Rate 16 Blood Pressure [Standing] 109/61 Blood Pressure [Sitting] 115/61 Blood Pressure [Lying] 123/61 Blood Pressure 105/68 Blood Pressure Position Semi-Fowlers General: Alert, Oriented x3, Cooperative, - - hematoma over right side of face virtually resolved HEENT: Atraumatic, PERRLA, EOMI, Normocephalic Oral: Moist Mucosa Neck: Supple, No JVD, Negative Carotid Bruits Lungs: Clear to auscultation, Normal air movement Cardiovascular: Normal S1, Normal S2, No murmurs, normal rate and rhythm. Abdomen: Bowel Sounds Present, Soft, Non Tender, Non-Distended, No Hepato- splenomegaly Extremities: No clubbing, No cyanosis, No edema, Capillary Refill Less than 3 Seconds Skin: No rashes, No breakdown Musculoskeletal: No Tenderness to Palpation of Joints or Extremities Lymphatic: No Cervical, Supraclavicular, or Inguinal Adenopathy Neurological: Cranial nerves II-XII grossly intact, Neuro grossly intact, Motor Exam 5/5 strength throughout Psych/Mental Status: Normal Affect, Appropriate, Alert and oriented to time, place, person, mood and affect Plan as above. Patient Problems: Active and Suspected Problems (Last Reviewed 10/25/19 @ 22:30 by Kat Heck DO) Near syncope (Acute) Bradycardia (Acute) Fall (Acute) Abrasions of multiple sites (Acute) Need for Tdap vaccination (Acute) Hyponatremia (Acute) Hyperkalemia (Acute) Acute on chronic renal failure (Acute) Dehydration (Acute) - Physical Exam Vitals/I&O's: Vital Signs Temp Pulse Resp BP Pulse Ox 97.8 F 84 16 105/68 97 10/28/19 14:20 10/28/19 15:01 10/28/19 14:20 10/28/19 14:20 10/28/19 14:20 Oxygen Delivery Method Room Air Weight: 192 lb 3.889 oz Body Mass Index (BMI) 27.4 Finger Stick Blood Glucose 98 Orthostatic Vital Signs Start: 10/25/19 14:53 Freq: q24h Status: Active Protocol: Activity Type Activity Date Activity User E-Sign Co-Sign Detail Recorded Client Recorded Date Recorded By Document 10/26/19 02:48 MAB [id number] 10/26/19 02:57 MAB 10/26/19 02:48 Orthostatic Vitals Standing -Blood Pressure (90/60-120/80 mm Hg) 109/61 -Extremity Use Right Arm -Pulse Rate (60-100 beats/min) 65 Sitting -Blood Pressure (90/60-120/80 mm Hg) 115/61 -Extremity Use Right Arm -Pulse Rate (60-100 beats/min) 60 Lying -Blood Pressure (90/60-120/80 mm Hg) 123/61 H -Extremity Use Right Arm -Pulse Rate (60-100 beats/min) 55 L Intake and Output for Last 24 Hours 10/26/19 10/27/19 10/28/19 23:59 23:59 23:59 Intake Total 3271.25 / 3271.25 2500 / 2500 1751.25 / 1751.25 Output Total 2014 2540 / 2540 1655 / 1655 Balance 1256.25 / 1256.25 -40 / -40 96.25 / 96.25 Laboratory Results 10/27/19 17:15: POC Glucose 235 H 10/27/19 22:55: POC Glucose 218 H 10/28/19 05:30: WBC 5.4, RBC 4.49 L, Hgb 12.1 L, Hct 37.1 L, MCV 82.6, MCH 26.9 L, MCHC 32.6, RDW Std Deviation 54.4 H, RDW Coeff of Torie 18.0 H, Plt Count 102 L , MPV 10.8, Immature Gran % (Auto) 0.200, Neut % (Auto) 62.3, Lymph % (Auto) 25.6, [place] % (Auto) 8.7, Eos % (Auto) 2.8, Baso % (Auto) 0.4, Absolute Neuts (auto) 3.4, Absolute Lymphs (auto) 1.39, Nucleated RBC % 0 10/28/19 05:30: Sodium 136, Potassium 4.3, Chloride 106, Carbon Dioxide 25.0, Anion Gap 5, BUN 15, Creatinine 0.95, Estim Creat Clear Calc 59.95, Est GFR (MDRD) Af Amer 98, Est GFR (MDRD) Non-Af 81, BUN/Creatinine Ratio 15.8, Glucose 228 H, Calcium 8.3 L 10/28/19 05:30: PSA Screen 0.97 10/28/19 07:03: POC Glucose 273 H 10/28/19 11:28: POC Glucose 347 H Current Medications Acetaminophen (Tylenol) 650 mg PO Q6H PRN PRN PRN Reason: Pain Score 1-3/Temp > 100.7 F Last Admin: 10/26/19 03:01 Dose: 650 mg Documented by: Al Hydroxide/Mg Hydroxide (Mylanta Ii) 30 ml PO Q6H PRN PRN PRN Reason: Gastric Burning Amiodarone HCl (Cordarone) 200 mg PO DAILY [facility] Last Admin: 10/28/19 08:39 Dose: 200 mg Documented by: Atorvastatin Calcium (Lipitor) 40 mg PO DAILY@2200 [facility] Last Admin: 10/27/19 22:58 Dose: 40 mg Documented by: Bacitracin (Bacitracin Ointment) 1 applic TOPICAL BID [facility]; Protocol Last Admin: 10/28/19 08:40 Dose: 1 applicatio Documented by: Buspirone HCl (Buspar) 10 mg PO BID [facility] Last Admin: 10/28/19 08:38 Dose: 10 mg Documented by: Doxepin HCl (Doxepin Hcl) 100 mg PO QHS [facility] Last Admin: 10/27/19 22:57 Dose: 100 mg Documented by: Ferrous Sulfate (Ferrous Sulfate) 325 mg PO 1200,1700 [facility] Last Admin: 10/28/19 11:31 Dose: 325 mg Documented by: Glucagon () 1 mg IM .X1 PRN PRN Reason: Hypoglycemia Sodium Chloride () 1,000 mls @ 75 mls/hr IV .[id number] [facility] Last Infusion: 10/28/19 15:28 Dose: 0 mls/hr Documented by: Dextrose (Dextrose 10%-Water) 250 mls @ 999 mls/hr IV X1 PRN; Protocol PRN Reason: HYPOGLYCEMIA Ceftriaxone Sodium (Rocephin) 1 gm in 50 mls @ 100 mls/hr IV Q24 [facility] Last Admin: 10/28/19 15:27 Dose: 100 mls/hr Documented by: Insulin Glargine (Lantus (Bkc)) 15 units SC QHS [facility] Insulin Human Lispro (Humalog Kwikpen (Bk)) 0 unit SC ACHS [facility]; Protocol Last Admin: 10/28/19 11:30 Dose: 4 u Documented by: Magnesium Hydroxide (Milk Of Magnesia) 30 ml PO DAILY PRN PRN PRN Reason: Constipation Melatonin (Melatonin) 3 mg PO QHS PRN PRN PRN Reason: INSOMNIA [facility] Metoprolol Tartrate (Lopressor (Beta Triston)) 25 mg PO BID [facility] Last Admin: 10/28/19 08:39 Dose: 25 mg Documented by: Morphine Sulfate () 2 mg IV Q3H PRN PRN PRN Reason: Pain Score 6-10/10 Multivitamins/Minerals (Multivitamin With Minerals) 1 tablet PO DAILY@0800 [facility] Last Admin: 10/28/19 08:38 Dose: 1 tablet Documented by: Multivitamins/Minerals (Healthy Eyes) [facility] Last Admin: 10/28/19 08:38 Dose: 1 capsule Documented by: Nitroglycerin (Nitrostat) 0.4 mg SUBLINGUAL Q5M PRN PRN Reason: CARDIAC/CHEST PAIN Ondansetron HCl (Zofran) 4 mg IV Q8H PRN PRN PRN Reason: NAUSEA/VOMITING Oxycodone HCl (Oxyir) 5 mg PO Q6H PRN PRN PRN Reason: Pain Score 4-5/10 Senna/Docusate Sodium (Senokot-S, Martha-Colace) 2 tablet PO BID PRN PRN PRN Reason: Constipation Sodium Chloride () 10 - 40 ml IV UD PRN PRN Reason: SALINE FLUSH Tamsulosin HCl (Flomax) 0.4 mg PO DAILY@1730 [facility] Last Admin: 10/28/19 09:37 Dose: 0.4 mg Documented by: Discharge Diet: Low fat/ Low Cholesterol Discharge Activity: Return to Normal Activity May resume sexual activity in: No Restrictions Weight Bearing Status: Weight bearing as tolerated Call your doctor if you observe: Shortness of breath, Dizziness, Fainting spells Home Medications: Medications to take at Discharge traZODone [Desyrel] 100 mg PO QHS 10/30/18 Doxepin HCl 100 mg PO QHS 01/15/19 Ferrous Sulfate 325 mg PO 1200,1700 tab 01/16/19 Buspirone HCl 10 mg PO BID 03/07/19 Glipizide [Glipizide ER] 10 mg PO DAILY 03/07/19 Vit A/Vit C/Vit E/Zinc/Copper [Preservision Areds Softgel] 1 cap PO BID 03/07/19 lisinopril 10 mg tablet 10 mg PO DAILY #60 tab 03/27/19 spironolactone 25 mg tablet 25 mg PO DAILY #60 tab 04/16/19 apixaban 2.5 mg tablet 2.5 mg PO BID #180 tab 06/10/19 atorvastatin 40 mg tablet 40 mg PO DAILY #90 tab 06/10/19 furosemide 40 mg tablet 60 mg PO BID #180 tab 09/19/19 Multivit-Min/FA/Lycopen/Lutein [Centrum Silver Men Tablet] 1 tab PO DAILY 10/25/19 Amiodarone HCl [Cordarone] 200 mg PO DAILY tab 10/28/19 Insulin Glargine [Lantus SoloStar Pen] 15 units SUBCUT QHS pen 10/28/19 Metoprolol Tartrate [Lopressor (beta triston)] 25 mg PO BID tab 10/28/19 Tamsulosin HCl [Flomax] 0.4 mg PO DAILY@1730 cap 10/28/19 Primary Care Physician: Jeremi Morel MD [Primary Care Provider] - Please follow up with your Primary Care Physician in: one week Please Follow Up With: Jeremi Morel MD Please Follow Up With: Thompson Diggs MD When: 1-2 weeks Disposition: Shelter facility Minutes spent on discharge:: 45 Patient Condition:: Stable Medical Necessity - Tobacco Use Smoking Status: Never smoker Tobacco Use: Non-smoker Meaningful Use Info Meaningful Use Diagnoses (Choose all that apply): None applicable Code Visit Inpatient E&M: 47675 Disch Hosp
--- NOTE | 2019-10-28 15:40 | CASEMGMT ---
Social Work SW spoke to Antonina and Dr. Heck in Inpatient Rehab and pt would be appropriate for RU. SW spoke with pt and he is agreeable to [facility]. [facility] with PT/OT evaluations to be faxed once completed. Phone call to pt daughter and she is agreeable to placement at . Physician notified and plans on discharge today. Pt and dgt and nursing made aware. DRISS Greco
[2019-10-28 15:50] LABS: Mucous, Urine 0 SEEN /hpf (<or=2+); Squamous Epithelial Cells - UA 0 SEEN /hpf (0-5)
--- NOTE | 2019-10-28 16:13 | NURSING ---
Report called to Lakeisha in inpatient rehab.
[2019-10-28 16:22] LABS: Color, Urine Yellow (Yellow); Glucose, Dipstick 1000 mg/dl (Normal); Ketone-Dipstick 5 mg/dl (Negative); Leukocyte Esterase-Dipstick 500 /ul (Negative); Nitrite-Dipstick Negative (Negative); Occult Blood-Urine 250 /ul (Negative); Protein-Dipstick 100 mg/dl (Negative); Urine Bilirubin Dipstick Negative (Negative); Urine Clarity Cloudy (Clear); Urine Urobilinogen Normal (Normal)
[2019-10-28] MEDS: metFORMIN HCl 500 MG Tablet PO (16:32)
[2019-10-28 16:52] LABS: Bacteria 4+ /hpf (None Seen); Red Blood Cells-Urine 5-10 SEEN /hpf (0-5); Triple Phosphate Crystals Ur 1+ /hpf (<or=1+); White Blood Cells 25-50 SEEN /hpf (0-5)
[2019-10-28 17:15] LABS: Bedside Glucose 247 mg/dL (70-110)
== END 2019-10-28 17:25 | DRG 683 ==
LOC: ED 11:58 → PCU 10-26 00:37
PROVIDERS: Admitting Provider Internal Medicine; Emergency Provider Emergency Medicine; Family Provider Internal Medicine; PCP Internal Medicine; Referring Provider Internal Medicine; Visit Provider Student in an Organized Health Care Education/Training Program
DX: N17.9 Acute kidney failure, unspecified (principal); E87.1 Hypo-osmolality and hyponatremia; I50.32 Chronic diastolic (congestive) heart failure; I13.0 Hypertensive heart and chronic kidney disease with heart failure and stage 1 through stage 4 chronic kidney disease, or unspecified chronic kidney disease; E11.65 Type 2 diabetes mellitus with hyperglycemia; R00.1 Bradycardia, unspecified; S09.90XA Unspecified injury of head, initial encounter; E87.5 Hyperkalemia; N18.2 Chronic kidney disease, stage 2 (mild); E86.0 Dehydration; E83.52 Hypercalcemia; I25.10 Atherosclerotic heart disease of native coronary artery without angina pectoris; E78.5 Hyperlipidemia, unspecified; Z23 Encounter for immunization; R55 Syncope and collapse; S00.83XA Contusion of other part of head, initial encounter; S61.411A Laceration without foreign body of right hand, initial encounter; S51.012A Laceration without foreign body of left elbow, initial encounter; W18.30XA Fall on same level, unspecified, initial encounter; Y93.01 Activity, walking, marching and hiking; Y92.480 Sidewalk as the place of occurrence of the external cause; I48.0 Paroxysmal atrial fibrillation; I27.21 Secondary pulmonary arterial hypertension; I44.7 Left bundle-branch block, unspecified; N40.1 Benign prostatic hyperplasia with lower urinary tract symptoms; R33.8 Other retention of urine; Z87.891 Personal history of nicotine dependence; Z95.1 Presence of aortocoronary bypass graft; Z79.84 Long term (current) use of oral hypoglycemic drugs; Z79.01 Long term (current) use of anticoagulants; Z95.3 Presence of xenogenic heart valve
CPT/HCPCS: 36415; 70450; 71045; 72125; 80048; 80053; 80061; 81001; 82728; 82962; 83036; 83540; 83550; 83735; 84100; 84153; 84443; 84484; 85025; 85027; 90471; 90715; 93005; 97110; 97116; 97162; 97165; 97530; 97535; 99285; J7030; J7040; A4216; G0103

== ENCOUNTER 2019-10-28 17:45 | Inpatient (IN) | payer MEDICARE, SELFPAY ==
[2019-10-25 14:29] VITALS: BMI 27.4
[2019-10-28 18:17] VITALS: BP 94/53; PULSE 72; RESP 18; TEMP 36.8; O2SAT 97; BMI 28.3
[2019-10-28] MEDS: BACITRACIN 15 GM Tube 1 APPLIC TOPICAL (21:45)
[2019-10-28] MEDS: Senna/Docusate Sodium 1 Tablet 2 TABLET PO (21:46)
[2019-10-28 21:47] VITALS: PULSE 69
[2019-10-28] MEDS: Metoprolol Tartrate 25 MG Tablet PO (21:47)
[2019-10-28] MEDS: Atorvastatin Calcium 40 MG Tablet PO (21:48)
[2019-10-28] MEDS: busPIRone 5 MG Tablet 10 MG PO (21:53)
[2019-10-28] MEDS: traZODone 100 MG Tablet PO (21:53)
[2019-10-28] MEDS: Multivitamin (Healthy Eyes) Capsule 1 CAP PO (21:53)
[2019-10-28] MEDS: APIXABAN 2.5 MG TABLET PO (21:53)
[2019-10-28 22:00] VITALS: BP 131/69; PULSE 69; RESP 16; RESP 17; TEMP 36.7; O2SAT 97
[2019-10-28 22:05] LABS: Bedside Glucose 236 mg/dL (70-110)
[2019-10-28 22:09] VITALS: BMI 28.4
[2019-10-29 06:47] VITALS: O2SAT 97
[2019-10-29 07:15] LABS: Bedside Glucose 196 mg/dL (70-110)
[2019-10-29 08:46] VITALS: BP 123/59; PULSE 78; RESP 16; TEMP 36.6; O2SAT 97
[2019-10-29] MEDS: Insulin Lispro 100 UNIT/ML INSULN.PEN SC ×3 (08:59→18:19)
[2019-10-29] MEDS: BACITRACIN 15 GM Tube 1 APPLIC TOPICAL ×2 (09:01→22:12)
[2019-10-29] MEDS: Multivitamins,Ther W-Minerals Tablet 1 TABLET PO (09:01)
[2019-10-29] MEDS: busPIRone 5 MG Tablet 10 MG PO ×2 (09:02→22:12)
[2019-10-29] MEDS: Amiodarone 200 MG Tablet PO (09:03)
[2019-10-29] MEDS: Furosemide 20 MG Tablet 60 MG PO (09:03)
[2019-10-29] MEDS: Multivitamin (Healthy Eyes) Capsule 1 CAP PO ×2 (09:03→22:12)
[2019-10-29 09:04] VITALS: PULSE 78
[2019-10-29] MEDS: Senna/Docusate Sodium 1 Tablet 2 TABLET PO (09:04)
[2019-10-29] MEDS: Metoprolol Tartrate 25 MG Tablet PO ×2 (09:04→22:13)
[2019-10-29] MEDS: Lisinopril 10 MG Tablet PO (09:04)
[2019-10-29] MEDS: Ceftriaxone 1 GM/50 ML BAG IV (10:46)
[2019-10-29] MEDS: APIXABAN 2.5 MG TABLET PO ×2 (11:31→22:12)
[2019-10-29 11:55] LABS: Bedside Glucose 223 mg/dL (70-110)
[2019-10-29] MEDS: Ferrous Sulfate 325 MG Tablet PO ×2 (12:18→18:18)
--- NOTE | 2019-10-29 13:08 | REHABEVAL_ITS ---
Admission Information Primary Diagnosis:: closed head trauma, physical debility due to falls Status Changes from Prescreening?: No changes Identified Actual Problem List:: Falls, Skin Intergrity, Pain, ALteration in Cmfrt, Depression, Alteration in Nutrition, Mobility Impaired, Self Care Deficit, Diabetes, Hyperglycemia, Fluid Change-Dehydration Potential Problem List:: DVT, Bleeding, Infection, UTI, Aspiration, Falls, Skin Integrity, Depression Risk of Complications DVT: MARIANA Hose Bleeding: Monitor Lab Values, Nursing to Teach Precautions for anti-coagulation therapy., Wound, if applicable, to be assessed every shift. Infection: Clinical Staff to Monitor for S/S of infection:, S/S of infection include fever, redness, warmth, etc. Urinary Tract Infection: Monitor for frequency, burning, discomfort, or incontinence., Nursing will obtain urine sample for urinalysis and C&S when ordered. Aspiration: Clinical staff will monitor for coughing, drooling, congestion., Speech will evaluate swallowing and dsyphasia., Nursing will monitor patient swallowing during meals. Falls: Patient will be evaluated for Fall Precautions, Patient will be placed on Fall Precautions as indicated per protocol. Skin Breakdown: Nursing will assess skin daily using assessment tool., Nursing will place on Skin Breakdown Precautions as indicated. Pain: Clinical staff will assess patient's pain level per protocol., Medications will be given, if needed, and the pain level reassessed., Other methods: Massage, distraction, decrease stimulus, etc. used PRN. Plan of Care Patient requires physician specializing in physical medicine and rehab oversight to provide close medical supervision of rehab issues including: Pain Management, Sleep Problems, Bowel and Bladder, Medical and co-morbidity Management, DVT prophylaxis, Rehabilitation Leadership, Coordination of treatment team Patient needs Physical Therapy: For a minimum of 1 hour, At least 5 out of 7 days Patient needs Physical Therapy to improve:: Mobility, Mobility, Mobility, Strengthening, Transfers, Stretching, ROM, Endurance, Stairs, Gait, Balance Patient needs Occupational Therapy: For a minimum of 1 hour, At least 5 out of 7 days Patient needs Occupational Therapy to improve ADL's incl.: Eating, Grooming, Bathing, Dressing, Toileting, Toilet transfers, Community Reintegration, Higher functioning activities, Household tasks, Adaptive Equipment, Splinting, Other activities as determined Patient requires speech therapy: For a minimum of 1 hour, At least 5 out of 7 days Patient requires speech therapy for: Swallowing, Cognition, Language Skills, Compensatory Strategies Patient requires 24/ Rehabilitation Nursing for: Pain Issues, Identifying and preventing risk factors, Monitoring and reporting current medical conditions, Assisting with ambulation, transfer, and all ADL's, Teaching patients about disease process and medications, Family teaching, Providing safe environment, Bowel and Bladder Issues, Skin integrity, Medication Management Patient needs Incident Response Engineer/ Case Management for: Discharge Planning, Arranging Home Equipment or Services, Family Interventions Patient needs Dietary and Nutrition Services for: Adequate Nutrition, Nutritional Supplements, Nutritional Education Goals Patient will remain: free from falls, or injury at time of discharge. Patient will perform bed mobility at: MOD I level of assist. Patient will complete transfers from bed to chair at: MOD I level of assist. Patient will ambulate: 100 feet, with MOD I assist, with LRD Patient will complete upper body dressing at: MOD I level of assist. Patient will complete lower body dressing at: MOD I level of assist. Patient will complete toileting at: MOD I level of assist. Patient will perform bathing at: MOD I level of assist. Patient will complete grooming at: MOD I level of assist. Patient will complete home management skills at: MOD I level of assist. Patient will achieve: 12 stairs, at MOD I assist Patient will have pain level of: of 3 or less Patient's skin will: remain intact, free from infection. Patient will receive: adequate nutrition. Discharge Planning Pt Prognosis for Sig. Practical Improv. w/in Reasonable Time: Good Estimated Length of stay (days): 10 Anticipated D/C Destination: Home Was Preadmission Assessment Accurate?: Yes
--- NOTE | 2019-10-29 13:13 | HP.PCM_ITS ---
Problem List (1) Abnormal LFTs Status: Acute (2) Significant closed head trauma within past 3 months Status: Acute (3) Thrombocytopenia Status: Acute (4) Normochromic normocytic anemia Status: Chronic (5) Near syncope Status: Resolved (6) Bradycardia Status: Resolved (7) Fall Status: Acute Qualifiers: Encounter type: subsequent encounter Qualified Code(s): W19.XXXD - Unspecified fall, subsequent encounter (8) Abrasions of multiple sites Status: Acute (9) Hyponatremia Status: Resolved (10) Hyperkalemia Status: Resolved (11) Acute on chronic renal failure Status: Resolved (12) Dehydration Status: Resolved (13) Uncontrolled type 2 diabetes mellitus Status: Chronic Qualifiers: Glycemic state: with hyperglycemia Qualified Code(s): E11.65 - Type 2 diabetes mellitus with hyperglycemia (14) Chronic diastolic (congestive) heart failure Status: Chronic (15) Secondary pulmonary arterial hypertension Status: Chronic (16) Paroxysmal atrial fibrillation Status: Chronic (17) Essential (primary) hypertension Status: Chronic (18) Left bundle branch block Status: Chronic (19) H/O aortic valve replacement Status: Chronic Comment: AVR w/ 25 mm Magna Ease Bioprosthetic Valve 01/01/19 (20) H/O coronary artery bypass surgery Status: Chronic Comment: CABG x 2 VILLALBA-LAD, SVG-Distal RCA and AVR w/ 25 mm Magna Ease Bioprosthetic Valve 01/01/19 (21) Non-rheumatic aortic stenosis Status: Chronic Comment: AVR w/ 25 mm Magna Ease Bioprosthetic Valve 01/01/19 (22) Atherosclerosis of coronary artery of [place] heart without angina pectoris Status: Chronic Qualifiers: Comment: CABG x 2 VILLALBA-LAD, SVG-Distal RCA and AVR w/ 25 mm Magna Ease Bioprosthetic Valve 01/01/19 (23) Hyperlipidemia Status: Chronic Qualifiers: (24) Chronic renal failure, stage 2 (mild) Status: Chronic (25) Vitamin D deficiency Status: Chronic (26) Chronic anticoagulation Status: Chronic (27) Urinary tract infection Status: Acute Qualifiers: Urinary tract infection type: acute cystitis (28) BPH (benign prostatic hyperplasia) Status: Chronic Qualifiers: Lower urinary tract symptom presence: symptoms present Lower urinary tract symptom detail: incomplete bladder emptying Qualified Code(s): N40.1 - Benign prostatic hyperplasia with lower urinary tract symptoms; R39.14 - Feeling of incomplete bladder emptying (29) Anxiety and depression Status: Resolved History of Present Illness Date of Admission: 10/28/19 Chief Complaint: debility due to closed head trauma and generalized weakness with falls The patient is a 84 year old M with a past medical history of hypertension, hyperlipidemia, chronic renal failure stage II, coronary artery disease (hx of CABG X 2 vessels on 01/01/19), secondary pulmonary hypertension, nonrheumatic aortic stenosis (status post aortic valve replacement on 01/01/19), right subclavian artery stenosis, left bundle branch block, chronic diastolic congestive heart failure, anxiety/depression, BPH and DM II who was admitted to the inpatient rehab unit at [facility] on 10/28 with closed head trauma secondary to a fall face first onto a concrete sidewalk and debility due to generalized weakness and falls for greater than 3 hours of therapy daily with a goal of returning him home at or near his prior level of independence. He lives by himself and has been having frequent falls at home. In the past he has been independent with ADL's. He has no steps at home and he drives. His dtr lives in [place] and his brother lives close to him. He denies lightheaded ness today. Tells me that he has not been checking his BS's since his surgery in Dec 2018. He thinks his glucometer got tossed. He will need a RX for a glucometer and supplies at [place]. Urine stream is much better with the Flomax and he no longer feels as though he is retaining. He was recently admitted to [facility] on 10/25/2019 after having a fall face first onto a concrete sidewalk and hitting his head. He sustained a large hematoma to the right frontal area and multiple abrasions over his face and extremities. At that time he was bradycardic on amiodarone 200 mg twice daily and metoprolol 50 mg twice daily. A noncontrasted CT of the brain revealed no acute findings at admission. Amiodarone was decreased to 1 time daily and the metoprolol was changed to 25 mg twice daily. Bradycardia has resolved. Also at that admission he was very dehydrated with acute renal failure secondary to uncontrolled diabetes mellitus type 2 with a hemoglobin A1c of 13.2%. Hyponatremia and acute renal failure have resolved. Blood sugars are not optimally controlled yet. An echocardiogram within the past year revealed a normal left ventricular ejection fraction of 60% with mild concentric left ventricular hypertrophy and stage II diastolic dysfunction. There was mild to moderate MR and mild TR. The right ventricular systolic pressure was estimated to be 52 which is considered moderate pulmonary hypertension. All lab from 10/28/19 was reviewed and all imaging. Past Medical History Past Medical History (Chronic Problems): Chronic Problems (Last Reviewed 10/29/19 @ 13:42 by Kat Heck DO) Uncontrolled type 2 diabetes mellitus (Chronic) Chronic diastolic (congestive) heart failure (Chronic) Normochromic normocytic anemia (Chronic) Chronic renal failure, stage 2 (mild) (Chronic) Vitamin D deficiency (Chronic) Chronic anticoagulation (Chronic) BPH (benign prostatic hyperplasia) (Chronic) Secondary pulmonary arterial hypertension (Chronic) Paroxysmal atrial fibrillation (Chronic) Essential (primary) hypertension (Chronic) Left bundle branch block (Chronic) H/O aortic valve replacement (Chronic 01/01/19) AVR w/ 25 mm Magna Ease Bioprosthetic Valve 01/01/19 H/O coronary artery bypass surgery (Chronic 01/01/19) CABG x 2 VILLALBA-LAD, SVG-Distal RCA and AVR w/ 25 mm Magna Ease Bioprosthetic Valve 01/01/19 Non-rheumatic aortic stenosis (Chronic) AVR w/ 25 mm Magna Ease Bioprosthetic Valve 01/01/19 Atherosclerosis of coronary artery of [place] heart without angina pectoris (Chronic) CABG x 2 VILLALBA-LAD, SVG-Distal RCA and AVR w/ 25 mm Magna Ease Bioprosthetic Valve 01/01/19 Hyperlipidemia (Chronic) Medical History: Medical History (Last Reviewed 10/29/19 @ 13:42 by Kat Heck DO) Secondary pulmonary arterial hypertension (Chronic) I27.21 Paroxysmal atrial fibrillation (Chronic) I48.0 Essential (primary) hypertension (Chronic) I10 Left bundle branch block (Chronic) I44.7 Non-rheumatic aortic stenosis (Chronic) I35.0 AVR w/ 25 mm Magna Ease Bioprosthetic Valve 01/01/19 Atherosclerosis of coronary artery of [place] heart without angina pectoris (Chronic) I25.10 CABG x 2 VILLALBA-LAD, SVG-Distal RCA and AVR w/ 25 mm Magna Ease Bioprosthetic Valve 01/01/19 Hyperlipidemia (Chronic) E78.5 Anxiety and depression F41.9, F32.9 Chronic kidney disease N18.9 Iron deficiency anemia D50.9 Obesity E66.9 Pleural effusion on left J90 Thyroid nodule E04.1 Type 2 diabetes mellitus E11.9 Near syncope R55 Stenosis of right subclavian artery (Resolved) I77.1 Postoperative atrial fibrillation (Inactive) Onset Date: 01/01/19 I97.89, I48.91 Allergies No Known Allergies Allergy (Verified 10/25/19 09:59) Home Medications: Ambulatory Orders Medication Instructions Recorded traZODone [Desyrel] 100 mg PO QHS 10/30/18 Buspirone HCl 10 mg PO BID 03/07/19 Vit A/Vit C/Vit E/Zinc/Copper 1 cap PO BID 03/07/19 [Preservision Areds Softgel] apixaban 2.5 mg tablet 2.5 mg PO BID #180 tab 06/10/19 atorvastatin 40 mg tablet 40 mg PO DAILY #90 tab 06/10/19 Multivit-Min/FA/Lycopen/Lutein 1 tab PO DAILY 10/25/19 [Centrum Silver Men Tablet] Amiodarone HCl [Cordarone] 200 mg PO DAILY 10/28/19 Ferrous Sulfate 325 mg PO 1200,1700 10/28/19 Furosemide 60 mg PO QODAY 10/28/19 Insulin Glargine [Lantus SoloStar 15 units SUBCUT QHS 10/28/19 Pen] Lisinopril [Prinivil] 10 mg PO DAILY 10/28/19 Metoprolol Tartrate [Lopressor 25 mg PO BID 10/28/19 (beta elijah)] Tamsulosin HCl [Flomax] 0.4 mg PO DAILY@1730 10/28/19 Surgical History: Surgical History (Last Reviewed 10/29/19 @ 13:42 by Kat Heck DO) H/O aortic valve replacement (Chronic) Onset Date: 01/01/19 Z95.2 AVR w/ 25 mm Magna Ease Bioprosthetic Valve 01/01/19 H/O coronary artery bypass surgery (Chronic) Onset Date: 01/01/19 Z95.1 CABG x 2 VILLALBA-LAD, SVG-Distal RCA and AVR w/ 25 mm Magna Ease Bioprosthetic Valve 01/01/19 History of cataract surgery Z98.49 History of hip replacement Z96.649 History of left heart catheterization Onset Date: 10/31/18 Z98.890 History of open reduction and internal fixation (ORIF) procedure Z98.890 History of thoracentesis Z98.890 left 01/05/19 Surgical History: - - CABG x 2, AVR (01/01/19), right total hip replacement, bilateral cataract surgery. Psychiatric History: Anxiety, Depression Smoking Status: Former smoker Tobacco Use: Cigars - *Family History Maternal Family History: Family History (Last Reviewed 10/29/19 @ 13:42 by Kat Heck DO) Father CVA (cerebral vascular accident) Mother COPD (chronic obstructive pulmonary disease) History Items: - - Patient with a maternal family history of hypertension as well as chronic COPD with underlying history of tobacco use. Paternal Family History: Family History (Last Reviewed 10/29/19 @ 13:42 by Kat Heck DO) Father CVA (cerebral vascular accident) Mother COPD (chronic obstructive pulmonary disease) History Items: - - Patient with a paternal family history of hypertension as well as history of aneurysm. Review of Systems Constitutional: Reports: Weakness. Denies: Chills, Fever, Malaise, Weight Change Eyes: Reports: Vision Change - less blurred now. Denies: Blurred vision, Double vision HEENT: Denies: Difficulty Swallowing, Head Aches, Sinus Congestion, Sinus Drainage, Sore Throat Cardiovascular: Denies: Chest Pain, Claudication, Edema, Palpitations, Syncope Respiratory: Reports: Shortness of Breath, Shortness of breath upon exertion. Denies: Cough, Hemoptysis, Shortness of breath at rest, Sputum production Gastrointestinal: Denies: Abdominal Pain, Nausea, Vomiting Genitourinary: Reports: Dysuria, Hesitancy, Retention, - - he had urine retention while in [facility] acute care and had to be straight cath'd a few times. He was started on Flomax and the sx have improved. Musculoskeletal: Denies: Joint Pain, Joint Tenderness Skin: Reports: Wounds. Denies: Jaundice, Rash Neurological: Reports: Balance problems. Denies: Double vision, Slurred speech, Focal weakness, Numbness, Tingling, Seizures Psychiatric: Reports: Anxiety, Depression. Denies: Homicidal Ideations, Suicidal Ideations Hematologic/ Lymphatic: Denies: Easy Bruising, Easy Bleeding, Hx of blood clot VTE Information - Inpt Only VTE Present on Admission: No VTE Mechan Device Prophylaxis: None VTE Pharm Prophylaxis ordered?: No Reason prophylaxis not ordered:: Treatment Not Indicated - pt is on Apixaban for PAF Patient Problems: Active and Suspected Problems (Last Reviewed 10/29/19 @ 13:42 by Kat Heck DO) Abnormal LFTs (Acute) Significant closed head trauma within past 3 months (Acute) Thrombocytopenia (Acute) Urinary tract infection (Acute) - Physical Exam Vitals/I&O's: Vital Signs Temp Pulse Resp BP Pulse Ox 97.8 F 78 16 123/59 H 97 10/29/19 08:46 10/29/19 09:04 10/29/19 08:46 10/29/19 08:46 10/29/19 08:46 Oxygen Delivery Method Room Air Weight: 192 lb Body Mass Index (BMI) 28.3 Finger Stick Blood Glucose 98 Intake and Output for Last 24 Hours 10/27/19 10/28/19 10/29/19 23:59 23:59 23:59 Intake Total 290 / 290 Output Total 350 / 350 Balance -350 / -350 290 / 290 General: Alert, Oriented x3, Cooperative, No apparent distress, Well developed, Well nourished HEENT: PERRLA, EOMI, - - He has abrasion on the face from the recent fall and some ecchymosis of the R frontal areA and R periorbital area. Oral: No Gingival or Mucosal Lesions/ Ulcerations, Dry Mucosa Neck: Supple, No JVD, Negative Carotid Bruits, Negative Hepatojugular Reflux, No Nodes, No Nuchal Rigidity, Trachea Midline Lungs: Clear to auscultation, Normal air movement Cardiovascular: Regular rate, Regular Rhythm, Normal S1, Normal S2, No murmurs, No Ectopic Activity, No rub noted, No Gallop Abdomen: Bowel Sounds Present, Soft, Non Tender, Non-Distended, No Hepato- splenomegaly Extremities: No clubbing, No cyanosis, No edema Skin: - - I checked all his wounds and there is no sign of infection. the skin tear on the left elbow is somehat tender but there is no erythema and no purulent DC. Musculoskeletal: No Muscle Wasting, Arthritic Changes Neurological: Cranial nerves II-XII grossly intact, Neuro grossly intact Psych/Mental Status: Normal Affect, Appropriate Laboratory Results 10/28/19 21:51: POC Glucose 236 H 10/29/19 06:31: POC Glucose 196 H 10/29/19 11:49: POC Glucose 223 H Current Medications Acetaminophen (Tylenol) 650 mg PO Q4H PRN PRN PRN Reason: Pain Score 1-10/10 Amiodarone HCl (Cordarone) 200 mg PO DAILY [facility] Last Admin: 10/29/19 09:03 Dose: 200 mg Documented by: Apixaban (Eliquis) 2.5 mg PO BID [facility] Last Admin: 10/29/19 11:31 Dose: 2.5 mg Documented by: Atorvastatin Calcium (Lipitor) 40 mg PO QHS [facility] Last Admin: 10/28/19 21:48 Dose: 40 mg Documented by: Bacitracin (Bacitracin Ointment) 1 applic TOPICAL BID [facility]; Protocol Last Admin: 10/29/19 09:01 Dose: 1 applicatio Documented by: Bisacodyl (Dulcolax) 10 mg RECTAL .PRN X 1 PRN PRN Reason: Constipation Buspirone HCl (Buspar) 10 mg PO BID [facility] Last Admin: 10/29/19 09:02 Dose: 10 mg Documented by: Emollient Ointment (Eucerin Intensive Repair) 1 applic TOPICAL 4X/DAY PRN PRN; Protocol PRN Reason: DRY SKIN Ferrous Sulfate (Ferrous Sulfate) 325 mg PO 1200,1700 [facility] Last Admin: 10/29/19 12:18 Dose: 325 mg Documented by: Furosemide (Lasix) 60 mg PO QODAY [facility] Last Admin: 10/29/19 09:03 Dose: 60 mg Documented by: Ceftriaxone Sodium (Rocephin) 1 gm in 50 mls @ 100 mls/hr IV Q24 [facility] Last Infusion: 10/29/19 11:16 Dose: Infused Documented by: Sodium Chloride () 250 mls @ 15 mls/hr IV .[id number] PRN PRN Reason: Saline Flush Insulin Glargine (Lantus (Bkc)) 15 units SC QHS [facility] Last Admin: 10/28/19 21:48 Dose: 15 u Documented by: Insulin Human Lispro (Humalog Kwikpen (Bkc)) 0 unit SC TIDAC [facility]; Protocol Last Admin: 10/29/19 12:15 Dose: 2 u Documented by: Lisinopril (Zestril) 10 mg PO DAILY [facility] Last Admin: 10/29/19 09:04 Dose: 10 mg Documented by: Magnesium Hydroxide (Milk Of Magnesia) 30 ml PO .PRN X 1 PRN PRN Reason: Constipation Metoprolol Tartrate (Lopressor (Beta Elijah)) 25 mg PO BID [facility] Last Admin: 10/29/19 09:04 Dose: 25 mg Documented by: Multivitamins/Minerals (Multivitamin With Minerals) 1 tablet PO DAILY@0800 [facility] Last Admin: 10/29/19 09:01 Dose: 1 tablet Documented by: Multivitamins/Minerals (Healthy Eyes) 1 capsule PO BID [facility] Last Admin: 10/29/19 09:03 Dose: 1 capsule Documented by: Senna/Docusate Sodium (Senokot-S, Martha-Colace) 2 tablet PO BID [facility] Last Admin: 10/29/19 09:04 Dose: 2 tablet Documented by: Sodium Chloride () 10 - 40 ml IV UD PRN PRN Reason: SALINE FLUSH Tamsulosin HCl (Flomax) 0.4 mg PO DAILY@1730 [facility] Trazodone HCl (Desyrel) 100 mg PO QHS [facility] Last Admin: 10/28/19 21:53 Dose: 100 mg Documented by: Assessment/Plan All Active Problems (Last Reviewed 10/29/19 @ 13:42 by Kat Heck DO) Near syncope (Resolved) Bradycardia (Resolved) Fall (Acute) Abrasions of multiple sites (Acute) Need for Tdap vaccination (Acute) Hyponatremia (Resolved) Hyperkalemia (Resolved) Acute on chronic renal failure (Resolved) Dehydration (Resolved) Abnormal LFTs (Acute) Significant closed head trauma within past 3 months (Acute) Thrombocytopenia (Acute) Urinary tract infection (Acute) Anxiety and depression (Resolved) Exposed orthopaedic hardware (Resolved) Status post hardware removal (Resolved) Stenosis of right subclavian artery (Resolved) Ulcer of right ankle (Resolved) Impressions 1. Debility due to recent closed head trauma and weakness due to long standing uncontrolled DM II with dehydration, ARF and ELYTE imbalance. Prior to the r ecent admission to the acute side of the hospital he was living alone and independent with ADL's, ambulation and driving. 2. Uncontrolled DM II with a HGBA1C of 13.2. Has not been checking his BS's in the past 10 months. Will need a RX for glucometer and supplies at [place]. 3. Chronic renal failure stage II. ARF due to dehydration - resolved. 4. hyponatremia and hyperkalemia - resolved. 5. AVR and CABG 01/01/19/anxiety and depression/HTN/stage II diastolic dysfunction/moderate pulmonary HTN due to long standing with MR prior to AVR/BPH/urine retention/polypharmacy - these all complicate care and affect prognosis and recovery. Taking Buspar BID, Doxepin 100 mg at HS, Trazodone 100mg at HS at admission to the hospital. Suspect Both Doxepin and Trazodone may be too much sedating medication in this 84 YO. Both also can cause urine retention.......will keep the Doxepin for now and discontinue the Trazodone. Decrease the Doxepin to 75 mg Q HS. The pt is a 84-year-old male with a PMH of coronary artery disease, hypertension, aortic valve replacement, CABG x2 vessels, BPH, anxiety/depression, uncontrolled diabetes mellitus type 2, moderate pulmonary hypertension, chronic diastolic congestive heart failure, stage II diastolic dysfunction, LVH, paroxysmal atrial fibrillation and stage II chronic renal failure admitted to the Inpatient rehab unit at [facility] on 10/28/2019 for debility secondary to closed head trauma and debility secondary to dehydration/acute renal failure/electrolyte imbalance for greater than 3 hours of therapy daily with a goal of returning home at or near prior level of independence. The patient lives at home by himself and has no steps. The patient was independent with ADL's, mobility and driving prior to hospitalization. PLAN PT for gait stability OT for ADL's ST for evaluation in light of closed head trauma Analgesics as needed Bowel protocol Fall precautions Assess for Anxiety/Depression DVT prophylaxis not needed since he is chronically on Elquis for PAF Follow up with Dr. Morel following DC from Rehab PAP completed Code Visit Inpatient E&M: 29724 Init Hosp L3
--- NOTE | 2019-10-29 15:50 | CHAPLAIN ---
Type of Pastoral Visit _x__ Initial Visit ___ Follow-up Visit ___ On-call Visit ___ General Patient Visit ___ Spiritual Assessment ___ Family Conference ___ Bereavement ___ Rapid Response ___ Code Blue ___ Other (describe below) Pastoral Care Referral From _x__ Patient ___ Family ___ Nurse ___ Physician ___ Supervisor Slitting And Shipping ___ Associate Professor Of Management ___ Other (describe below) Sacrament/Intervention _x__ Active listening ___ Anointing ___ Moravian ___ Bereavement ___ Communion ___ Asiya exploration ___ _x__ Life review _x__ Prayer ___ Reconciliation ___ Sacrament of Sick ___ Supportive presence ___ Wedding ___ Other (describe below) Pastoral Comments
[2019-10-29 17:25] LABS: Bedside Glucose 157 mg/dL (70-110)
[2019-10-29] MEDS: Tamsulosin HCl 0.4 MG Capsule PO (18:20)
[2019-10-29 19:32] VITALS: BP 115/58; PULSE 71; RESP 18; TEMP 36.8; O2SAT 97
[2019-10-29 22:00] VITALS: PULSE 74
[2019-10-29 22:10] LABS: Bedside Glucose 167 mg/dL (70-110)
[2019-10-29] MEDS: Atorvastatin Calcium 40 MG Tablet PO (22:10)
[2019-10-29 22:13] VITALS: PULSE 74
[2019-10-29] MEDS: Doxepin Hcl 25 MG Capsule 75 MG PO (22:22)
[2019-10-30 07:00] VITALS: BP 130/72; PULSE 76; RESP 16; TEMP 36.7; O2SAT 93
[2019-10-30 07:15] LABS: Bedside Glucose 159 mg/dL (70-110)
[2019-10-30] MEDS: APIXABAN 2.5 MG TABLET PO ×2 (07:59→21:33)
[2019-10-30] MEDS: busPIRone 5 MG Tablet 10 MG PO ×2 (08:00→21:33)
[2019-10-30] MEDS: Multivitamin (Healthy Eyes) Capsule 1 CAP PO ×2 (08:00→21:33)
[2019-10-30] MEDS: Amiodarone 200 MG Tablet PO (08:00)
[2019-10-30] MEDS: Multivitamins,Ther W-Minerals Tablet 1 TABLET PO (08:00)
[2019-10-30] MEDS: Insulin Lispro 100 UNIT/ML INSULN.PEN SC ×2 (08:01→12:31)
[2019-10-30 08:02] VITALS: PULSE 78
[2019-10-30] MEDS: Metoprolol Tartrate 25 MG Tablet PO ×2 (08:02→21:34)
[2019-10-30] MEDS: Lisinopril 10 MG Tablet PO (08:02)
--- NOTE | 2019-10-30 08:29 | PCM.PN.BLA ---
Progress Note Afebile VSS Maintaining appropriate oxygen saturation on RA-97% on room air this a.m. Oral intake is good Discussed with nursing - no problems that need addressed Reviewed the PT/OT Medication list reviewed. 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 Lungs - CTA Heart RRR with no gallop Alert and in no apparent distress ABD -soft, NT, ND, normal BS's in all quadrants no peripheral edema abrasions are healing. The abrasion and skin tear on the left elbow are giving him some discomfort......they feel better when covered Impressions 1. debility due to closed head trauma and weakness and pain associated with recent fall 2. Hematoma R forehead. with abrasion - healing. The ecchymosis is fading 3. 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 uncontrolled DM II with hyperglycemia - coming under better control. At bedtime blood sugar was 167 last evening and the fasting blood sugar is 159 today. I reviewed the sloop captain's recommendations and will place him on 1800 calorie cardiac diet. Will continue to monitor the BS's with the change in diet. Continue Prandin 0.5 mg with meals and Lantus 15 units subcutaneously nightly. 5. Normocytic hypochromic anemia with heme + stool......will query him about his most recent colonoscopy. More likely than not related to chronic anticoagulation with Apixaban for PAF STROKE Vital Signs/Narrative: Vital Signs Pulse 10/30/19 08:02 78 Code Visit Inpatient E&M: 26183 Subs Hosp L2
[2019-10-30] MEDS: Ceftriaxone 1 GM/50 ML BAG IV (08:40)
[2019-10-30] MEDS: BACITRACIN 15 GM Tube 1 APPLIC TOPICAL ×2 (09:34→21:32)
[2019-10-30] MEDS: 0.9% Saline Lock 10 ML Syringe IV ×2 (09:34→21:42)
[2019-10-30] MEDS: Glimepiride 1 MG Tablet PO (10:19)
[2019-10-30] MEDS: Capsaicin 0.025% 1 APPLIC Tube TOPICAL ×2 (10:20→21:31)
[2019-10-30 12:16] LABS: Bedside Glucose 188 mg/dL (70-110)
[2019-10-30] MEDS: Ferrous Sulfate 325 MG Tablet PO ×2 (12:31→17:20)
[2019-10-30 17:06] LABS: Bedside Glucose 94 mg/dL (70-110)
[2019-10-30] MEDS: Tamsulosin HCl 0.4 MG Capsule PO (17:20)
[2019-10-30 20:00] VITALS: BP 114/57; PULSE 63; RESP 18; TEMP 36.9; O2SAT 95
[2019-10-30 21:34] VITALS: BP 114/57; PULSE 63
[2019-10-30] MEDS: Atorvastatin Calcium 40 MG Tablet PO (21:34)
[2019-10-30] MEDS: Doxepin Hcl 25 MG Capsule 75 MG PO (21:35)
[2019-10-30 21:51] LABS: Bedside Glucose 190 mg/dL (70-110)
[2019-10-30 22:00] VITALS: PULSE 63; RESP 18; O2SAT 95
[2019-10-31 07:45] LABS: Bedside Glucose 161 mg/dL (70-110)
[2019-10-31] MEDS: Furosemide 20 MG Tablet 60 MG PO (08:15)
[2019-10-31 08:16] VITALS: BP 112/59; PULSE 59
[2019-10-31] MEDS: Metoprolol Tartrate 25 MG Tablet PO ×2 (08:16→21:46)
[2019-10-31] MEDS: Multivitamin (Healthy Eyes) Capsule 1 CAP PO ×2 (08:16→21:44)
[2019-10-31] MEDS: busPIRone 5 MG Tablet 10 MG PO ×2 (08:16→21:44)
[2019-10-31] MEDS: Amiodarone 200 MG Tablet PO (08:16)
[2019-10-31] MEDS: Glimepiride 1 MG Tablet PO (08:16)
[2019-10-31] MEDS: Multivitamins,Ther W-Minerals Tablet 1 TABLET PO (08:16)
[2019-10-31] MEDS: Lisinopril 10 MG Tablet PO (08:16)
[2019-10-31] MEDS: APIXABAN 2.5 MG TABLET PO ×2 (08:16→21:44)
[2019-10-31] MEDS: Insulin Lispro 100 UNIT/ML INSULN.PEN SC ×2 (08:18→12:24)
--- NOTE | 2019-10-31 08:49 | PN_ITS ---
Progress Note Afebile VSS Maintaining appropriate oxygen saturation on RA Oral intake is good Discussed with nursing - no problems that need addressed Reviewed the PT/OT notes - He is progressing but, not at goal yet Medication list reviewed. Sleeping OK with the discontinuation of the Trazodone and the decreases in the Doxepin to 75 mg Q HS....decreased due to urine retention The patient was seen on team rounds today. His daughter Jigna was present. The patient's only complaint is dyspnea on exertion. 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 He has had pulmonary function tests in the past but this was many years ago. He does not use an inhaler and he denies any wheezing. Blood sugar record was reviewed and the blood sugars have come under much better control. Fasting blood sugar this a.m. was 161 and his at bedtime sugar was 190. Currently on Lantus 15 units nightly and Amaryl 1 mg p.o. every morning. Alert and oriented x3, no apparent distress, appropriate Lungs-clear to auscultation, no wheezing, no rales, no rhonchi, no conversational dyspnea, no accessory muscle use at rest. Good air exchange. Heart-regular rate and rhythm, no gallop, no rub Abdomen-soft, nontender, nondistended, normal bowel sounds heard in all 4 quadrants No peripheral edema All abrasions are healing and there is no evidence of cellulitis present. Impressions 1. Debility due to recent closed head trauma and weakness due to long standing uncontrolled DM II with dehydration, ARF and ELYTE imbalance. Prior to the recent admission to the acute side of the hospital he was living alone and independent with ADL's, ambulation and driving. He will [place] going home at [place] from the [facility]. He will not need and assistive device for ambulation at [place]. 2. uncontrolled DM II - under good control now with Amaryl 1 mg p.o. every morning and Lantus 15 units subcu nightly. He is not adverse to administering his own insulin at night. Will begin teaching on proper insulin administration. I recommended that he ask Dr. 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 Will need a RX for a glucometer and supplies at [place]. STROKE Vital Signs/Narrative: Vital Signs Pulse BP 10/31/19 08:16 59 L 112/59 L Code Visit Inpatient E&M: 82097 Subs Hosp L2
[2019-10-31 10:00] VITALS: BP 112/59; PULSE 59; RESP 16; TEMP 36.7; O2SAT 95
[2019-10-31] MEDS: Capsaicin 0.025% 1 APPLIC Tube TOPICAL ×2 (10:14→21:48)
[2019-10-31] MEDS: BACITRACIN 15 GM Tube 1 APPLIC TOPICAL ×2 (10:14→21:44)
[2019-10-31] MEDS: Ceftriaxone 1 GM/50 ML BAG IV (10:48)
[2019-10-31] MEDS: 0.9% NaCl IVPB Med Flush (250 mL) 15 ML IV (10:49)
[2019-10-31 11:40] LABS: Bedside Glucose 163 mg/dL (70-110)
[2019-10-31] MEDS: Ferrous Sulfate 325 MG Tablet PO ×2 (12:24→17:46)
[2019-10-31 13:00] VITALS: BP 102/48; BP 103/48; BP 89/37; PULSE 57; PULSE 59; PULSE 69
--- NOTE | 2019-10-31 14:31 | CASEMGMT ---
Social Work IDT met with patient and daughter for Team Meeting. Discussed patient's progress in therapy. Pt is SBA for transfers, FWW SBA, having some SOB - varies between 100-200 ft, completing 20 mins on NuStep, SBA for all ADLs. Pt is sleeping well, has been started on insulin. Nursing will begin insulin teaching for pt to DC home alone. Physician ordering to f/u with PCP to complete pulmonary function tests, and adjusted some medications. Insurance update was 10/29 and have not heard outcome. Pt may set own DC. Will continue to follow. JAVON Lockhart TELEVISION INSTALLER HELPER
[2019-10-31 16:33] VITALS: O2SAT 95
[2019-10-31 17:36] LABS: Bedside Glucose 90 mg/dL (70-110)
[2019-10-31] MEDS: Tamsulosin HCl 0.4 MG Capsule PO (17:46)
[2019-10-31 21:46] VITALS: PULSE 72
[2019-10-31] MEDS: Atorvastatin Calcium 40 MG Tablet PO (21:46)
[2019-10-31] MEDS: Senna/Docusate Sodium 1 Tablet 2 TABLET PO (21:47)
[2019-10-31] MEDS: Doxepin Hcl 25 MG Capsule 75 MG PO (21:47)
[2019-10-31 22:00] VITALS: BP 120/56; PULSE 72; RESP 16; TEMP 37; O2SAT 93
[2019-10-31 22:05] LABS: Bedside Glucose 137 mg/dL (70-110)
--- NOTE | 2019-11-01 01:12 | NURSING ---
IV noted to have blood around insertion site and reddened. IV discontinued at this time. catheter intact. pt states no tenderness or discomfort in skin. will continue to monitor.
--- NOTE | 2019-11-01 03:53 | NURSING ---
REVIEWED AND AGREE WITH BUSINESS OWNER/ENGINEER'S FUNCTIONAL ASSESSMENT AND HANDOFF CHARTING.
[2019-11-01 07:01] LABS: Bedside Glucose 156 mg/dL (70-110)
[2019-11-01 07:53] VITALS: BP 145/71; PULSE 65; RESP 16; TEMP 36.7; O2SAT 97
[2019-11-01] MEDS: Insulin Lispro 100 UNIT/ML INSULN.PEN SC ×2 (07:57→12:20)
[2019-11-01] MEDS: BACITRACIN 15 GM Tube 1 APPLIC TOPICAL ×2 (07:57→21:50)
[2019-11-01] MEDS: Glimepiride 1 MG Tablet PO (07:57)
[2019-11-01] MEDS: Capsaicin 0.025% 1 APPLIC Tube TOPICAL ×2 (07:57→21:54)
[2019-11-01 07:58] VITALS: BP 145/71; PULSE 65
[2019-11-01] MEDS: Metoprolol Tartrate 25 MG Tablet PO ×2 (07:58→21:56)
[2019-11-01] MEDS: APIXABAN 2.5 MG TABLET PO ×2 (07:58→21:56)
[2019-11-01] MEDS: Multivitamins,Ther W-Minerals Tablet 1 TABLET PO (07:58)
[2019-11-01] MEDS: busPIRone 5 MG Tablet 10 MG PO ×2 (07:58→21:56)
[2019-11-01] MEDS: Multivitamin (Healthy Eyes) Capsule 1 CAP PO ×2 (07:58→21:56)
[2019-11-01] MEDS: Amiodarone 200 MG Tablet PO (07:58)
[2019-11-01] MEDS: Senna/Docusate Sodium 1 Tablet 2 TABLET PO ×2 (07:59→21:55)
[2019-11-01] MEDS: Lisinopril 5 MG Tablet PO (07:59)
[2019-11-01 12:05] LABS: Bedside Glucose 175 mg/dL (70-110)
[2019-11-01] MEDS: Ferrous Sulfate 325 MG Tablet PO ×2 (12:21→16:26)
[2019-11-01] MEDS: Tamsulosin HCl 0.4 MG Capsule PO (16:26)
[2019-11-01 16:40] LABS: Bedside Glucose 147 mg/dL (70-110)
[2019-11-01 21:40] LABS: Bedside Glucose 171 mg/dL (70-110)
[2019-11-01 21:49] VITALS: BP 104/53; PULSE 54; RESP 16; TEMP 36.8; O2SAT 97
[2019-11-01] MEDS: Doxepin Hcl 25 MG Capsule 75 MG PO (21:55)
[2019-11-01 21:56] VITALS: BP 127/69; PULSE 60
[2019-11-01] MEDS: Atorvastatin Calcium 40 MG Tablet PO (21:56)
[2019-11-02 07:11] LABS: Bedside Glucose 155 mg/dL (70-110)
[2019-11-02 08:00] VITALS: BP 125/65; PULSE 66; RESP 16; TEMP 36.8; O2SAT 96
[2019-11-02] MEDS: Multivitamin (Healthy Eyes) Capsule 1 CAP PO ×2 (08:08→22:40)
[2019-11-02] MEDS: Lisinopril 5 MG Tablet PO (08:08)
[2019-11-02] MEDS: Amiodarone 200 MG Tablet PO (08:08)
[2019-11-02] MEDS: Multivitamins,Ther W-Minerals Tablet 1 TABLET PO (08:08)
[2019-11-02] MEDS: Glimepiride 1 MG Tablet PO (08:08)
[2019-11-02 08:10] VITALS: PULSE 66
[2019-11-02] MEDS: busPIRone 5 MG Tablet 10 MG PO ×2 (08:10→22:40)
[2019-11-02] MEDS: APIXABAN 2.5 MG TABLET PO ×2 (08:10→22:40)
[2019-11-02] MEDS: Metoprolol Tartrate 25 MG Tablet PO ×2 (08:10→22:38)
[2019-11-02] MEDS: Insulin Lispro 100 UNIT/ML INSULN.PEN SC (08:40)
[2019-11-02] MEDS: Capsaicin 0.025% 1 APPLIC Tube TOPICAL ×2 (09:09→22:37)
[2019-11-02] MEDS: Senna/Docusate Sodium 1 Tablet 2 TABLET PO ×2 (09:10→22:38)
[2019-11-02] MEDS: BACITRACIN 15 GM Tube 1 APPLIC TOPICAL ×2 (09:12→22:40)
[2019-11-02] MEDS: Ferrous Sulfate 325 MG Tablet PO ×2 (11:02→16:41)
[2019-11-02] MEDS: Acetaminophen 325 MG Tablet 650 MG PO (11:04)
[2019-11-02 12:00] LABS: Bedside Glucose 143 mg/dL (70-110)
[2019-11-02 16:21] LABS: Bedside Glucose 145 mg/dL (70-110)
[2019-11-02] MEDS: Tamsulosin HCl 0.4 MG Capsule PO (16:41)
[2019-11-02 19:35] VITALS: BP 112/65; PULSE 66; RESP 17; TEMP 36.6; O2SAT 96
[2019-11-02 20:56] LABS: Bedside Glucose 185 mg/dL (70-110)
[2019-11-02] MEDS: Doxepin Hcl 25 MG Capsule 75 MG PO (22:37)
[2019-11-02 22:38] VITALS: BP 112/65; PULSE 66
[2019-11-02] MEDS: Atorvastatin Calcium 40 MG Tablet PO (22:38)
[2019-11-03 06:45] LABS: Bedside Glucose 143 mg/dL (70-110)
[2019-11-03 07:00] VITALS: BP 125/70; PULSE 55; RESP 16; TEMP 36.7; O2SAT 96
[2019-11-03] MEDS: Capsaicin 0.025% 1 APPLIC Tube TOPICAL ×2 (07:45→21:26)
[2019-11-03] MEDS: Lisinopril 5 MG Tablet PO (07:45)
[2019-11-03 07:46] VITALS: BP 125/70; PULSE 60
[2019-11-03] MEDS: Multivitamins,Ther W-Minerals Tablet 1 TABLET PO (07:46)
[2019-11-03] MEDS: Amiodarone 200 MG Tablet PO (07:46)
[2019-11-03] MEDS: Metoprolol Tartrate 25 MG Tablet PO ×2 (07:46→21:27)
[2019-11-03] MEDS: Multivitamin (Healthy Eyes) Capsule 1 CAP PO ×2 (07:46→21:28)
[2019-11-03] MEDS: busPIRone 5 MG Tablet 10 MG PO ×2 (07:46→21:27)
[2019-11-03] MEDS: APIXABAN 2.5 MG TABLET PO ×2 (07:46→21:28)
[2019-11-03] MEDS: Glimepiride 1 MG Tablet PO (07:46)
[2019-11-03] MEDS: BACITRACIN 15 GM Tube 1 APPLIC TOPICAL ×2 (07:48→21:28)
[2019-11-03] MEDS: Senna/Docusate Sodium 1 Tablet 2 TABLET PO ×2 (07:48→21:28)
[2019-11-03 11:10] LABS: Bedside Glucose 218 mg/dL (70-110)
[2019-11-03] MEDS: Insulin Lispro 100 UNIT/ML INSULN.PEN SC (12:03)
[2019-11-03] MEDS: Ferrous Sulfate 325 MG Tablet PO ×2 (12:03→16:17)
[2019-11-03 16:46] LABS: Bedside Glucose 144 mg/dL (70-110)
[2019-11-03] MEDS: Tamsulosin HCl 0.4 MG Capsule PO (17:09)
--- NOTE | 2019-11-03 19:19 | NURSING ---
up and ambulated in halls with walker and standby assist and did nustep x 12 minutes.
[2019-11-03 20:01] VITALS: BP 133/57; PULSE 54; RESP 17; TEMP 36.8; O2SAT 98
[2019-11-03 21:25] VITALS: PULSE 66; RESP 17; O2SAT 98
[2019-11-03 21:27] VITALS: BP 133/57; PULSE 54
[2019-11-03] MEDS: Atorvastatin Calcium 40 MG Tablet PO (21:27)
[2019-11-03] MEDS: Doxepin Hcl 25 MG Capsule 75 MG PO (21:28)
[2019-11-03 21:40] LABS: Bedside Glucose 181 mg/dL (70-110)
--- NOTE | 2019-11-04 03:32 | NURSING ---
REVIEWED AND AGREE WITH BAIT PAINTER'S FUNCTIONAL ASSESSMENT AND HANDOFF CHARTING.
[2019-11-04 06:30] LABS: Bedside Glucose 126 mg/dL (70-110)
--- NOTE | 2019-11-04 06:46 | PCM.PN.BLA ---
Progress Note Afebile VSS Maintaining appropriate oxygen saturation on RA Oral intake is good Discussed with nursing - no problems that need addressed Reviewed the PT/OT/ST notes Medication list reviewed. Blood sugar record is reviewed and the blood sugars are well controlled on Lantus 15 units Q HS and Amaryl 1 mg daily. Denies lightheadedness. No calf pain. PHYSICAL EXAM: GENERAL: alert, oriented X 3, Cooperative, NAD, sitting in the chair at the bedside. Ate 100% of his breakfast ORAL: moist mucosa, no mucosal lesions NECK: No JVD, supple, trachea midline LUNGS: CTA, symmetric chest expansion HEART: RRR, Normal S1 and S2, no rub, no gallop ABDOMEN: soft, NT, ND, BS present, no guarding with palpation EXTREMITIES: no edema, no cyanosis, no calf tenderness SKIN: No rashes, no breakdown NEUROLOGIC: no focal neurologic deficits PSYCH: appropriate, normal affect, pleasant Impressions 1. Debility due to recent closed head trauma and weakness due to long standing uncontrolled DM II with dehydration, ARF and ELYTE imbalance. Prior to the recent admission to the acute side of the hospital he was living alone and independent with ADL's, ambulation and driving. [place] going [place] at [place] from the [facility]. He will not need and assistive device for ambulation at [place]. 2. uncontrolled DM II - under good control now with Amaryl 1 mg p.o. every morning and Lantus 15 units subcu nightly. He is not adverse to administering his own insulin at night. Will begin teaching on proper insulin administration. Discussed with PT/OT and they feel he is dong well and feel he will be safe at home if discharged home tomorrow for the holidays. Pt would like to be home for the holidays. Will need a glucometer and supplies at [place]. Nursing will make sure today that he is giving his own insulin Code Visit Inpatient E&M: 80043 Subs Hosp L2
[2019-11-04 07:28] VITALS: BP 117/60; PULSE 68; RESP 16; TEMP 36.7; O2SAT 94
[2019-11-04] MEDS: Senna/Docusate Sodium 1 Tablet 2 TABLET PO ×2 (07:35→21:50)
[2019-11-04 07:36] VITALS: BP 117/60; PULSE 68
[2019-11-04] MEDS: Metoprolol Tartrate 25 MG Tablet PO ×2 (07:36→21:52)
[2019-11-04] MEDS: Lisinopril 5 MG Tablet PO (07:36)
[2019-11-04] MEDS: Capsaicin 0.025% 1 APPLIC Tube TOPICAL (07:37)
[2019-11-04] MEDS: BACITRACIN 15 GM Tube 1 APPLIC TOPICAL ×2 (07:37→21:49)
[2019-11-04] MEDS: Multivitamins,Ther W-Minerals Tablet 1 TABLET PO (07:37)
[2019-11-04] MEDS: busPIRone 5 MG Tablet 10 MG PO ×2 (07:37→21:50)
[2019-11-04] MEDS: Amiodarone 200 MG Tablet PO (07:37)
[2019-11-04] MEDS: Glimepiride 1 MG Tablet PO (07:37)
[2019-11-04] MEDS: Multivitamin (Healthy Eyes) Capsule 1 CAP PO ×2 (07:39→21:50)
[2019-11-04] MEDS: APIXABAN 2.5 MG TABLET PO ×2 (08:04→21:50)
--- NOTE | 2019-11-04 11:05 | CASEMGMT ---
Addendum entered by Sridevi Mares 11/05/19 10:18: Pt new to insulin at DC - added SN to C order for teaching Original Note: Social Work Completed advanced directives with pt. Copies placed on chart. Discussed DC plans. Pt requesting to DC home 11/05. IDT and family agreeable. Pt chose HHC vs outpatient. Provided list of HHC to pt - pt chose [facility] for PT/OT. Referral made. No DME needs. Plan: DC home alone 11/05 with [facility] PT/OT Sridevi Mares, JAVON JACOBW
[2019-11-04 11:21] LABS: Bedside Glucose 167 mg/dL (70-110)
[2019-11-04] MEDS: Ferrous Sulfate 325 MG Tablet PO ×2 (11:35→16:57)
[2019-11-04] MEDS: Insulin Lispro 100 UNIT/ML INSULN.PEN SC (11:36)
[2019-11-04] MEDS: Tamsulosin HCl 0.4 MG Capsule PO (16:57)
[2019-11-04 17:31] LABS: Bedside Glucose 106 mg/dL (70-110)
[2019-11-04 21:45] VITALS: BP 115/55; PULSE 64; RESP 16; TEMP 37.3; O2SAT 94
[2019-11-04 21:50] LABS: Bedside Glucose 138 mg/dL (70-110)
[2019-11-04] MEDS: Doxepin Hcl 25 MG Capsule 75 MG PO (21:50)
[2019-11-04] MEDS: Atorvastatin Calcium 40 MG Tablet PO (21:50)
[2019-11-04 21:52] VITALS: BP 115/55; PULSE 64
--- NOTE | 2019-11-05 03:31 | NURSING ---
Reviewed and agree with HOUSING COURT JUDGE documentation and charting.
[2019-11-05 06:46] LABS: Bedside Glucose 146 mg/dL (70-110)
[2019-11-05 07:00] VITALS: BP 140/64; PULSE 62; RESP 16; TEMP 36.6; O2SAT 94
[2019-11-05] MEDS: Multivitamin (Healthy Eyes) Capsule 1 CAP PO (07:49)
[2019-11-05] MEDS: busPIRone 5 MG Tablet 10 MG PO (07:49)
[2019-11-05] MEDS: Senna/Docusate Sodium 1 Tablet 2 TABLET PO (07:49)
[2019-11-05] MEDS: Lisinopril 5 MG Tablet PO (07:49)
[2019-11-05] MEDS: Multivitamins,Ther W-Minerals Tablet 1 TABLET PO (07:49)
[2019-11-05 07:50] VITALS: PULSE 62
[2019-11-05] MEDS: Amiodarone 200 MG Tablet PO (07:50)
[2019-11-05] MEDS: Metoprolol Tartrate 25 MG Tablet PO (07:50)
[2019-11-05] MEDS: Glimepiride 1 MG Tablet PO (07:50)
[2019-11-05] MEDS: BACITRACIN 15 GM Tube 1 APPLIC TOPICAL (07:53)
[2019-11-05] MEDS: Capsaicin 0.025% 1 APPLIC Tube TOPICAL (07:53)
[2019-11-05] MEDS: APIXABAN 2.5 MG TABLET PO (07:58)
--- NOTE | 2019-11-05 10:06 | DCINST_ITS ---
- Discharge Diagnoses Current Active Problems: Current Active and Chronic Problems (Last Reviewed 10/29/19 @ 13:42 by Kat Heck DO) Abnormal LFTs (Acute) Significant closed head trauma within past 3 months (Acute) Thrombocytopenia (Acute) Normochromic normocytic anemia (Chronic) Chronic renal failure, stage 2 (mild) (Chronic) Vitamin D deficiency (Chronic) Chronic anticoagulation (Chronic) Urinary tract infection (Acute) BPH (benign prostatic hyperplasia) (Chronic) You will use the following diet at home:: Calorie/Carbohydrate Controlled (specify 1200, 1400, etc) - 1800 calorie, low salt and low fat Your food should be the consistency of: Regular Your liquids should be the consistency of: Regular/Thin Discharge Activity: Return to Normal Activity Call your doctor if you observe: Fever of 101 or Higher, Inability to urinate, Inability to have a bowel movement, Shortness of breath, Dizziness, Fainting spells, Swelling in the ankles, Chest pain, Calf discomfort, Uncontrolled pain Instructions: Depression Affects Your Mind and Body, What Can Cause Depression?, Counseling for Depression, Depression: Tips to Help Yourself Additional Instructions: 1. Your blood pressure is very well controlled. The blood sugars are now very well controlled. The dehydration has been treated and your kidney function is back to normal. You are no longer lightheaded. You should be able to resume your normal activities. The reason you fell at admisison to the hospital was you were very dehydrated and the Heart rate was too slow. We have decreased the dose of the amiodarone to once a day and decreased the Metoprolol to 25 mg twice a day. The Lisinopril dose has been decresased to 5 mg daily. 2. You will have a nurse visit you at home to help make sure that you are properly administering insulin. 3. You are clearly depressed. I know that you have been on the Trazodone and the Doxepin for many years. Our body changes over time and so does the liver and kidney function. Drugs that used to be helpful are sometimes dangerous as we age. Both Doxepin and Trazodone cause you to be drowsy and they can cause falls and confusion as we age. Both Trazodone and Doxepin can also cause urine retention.......and you were having this problem. The Trazodone has been discontinued and the Doxepin dose has been decreased to 75 mg. Flomax has been added to help with the urine stream. I think it is time to consider getting a second opinion on treatment of your long standing depression. What you have been doing is not working. I also think you would benefit from talk therapy. Unless you talk about the things that are bothering you and put it out there you can not move forward. You lost your and also your daughter......this is depressing. You are not able to do everything you used to and this can be depressing. You had major surgery in December this past year and this can lead to depression. BUT, you can learn to function within your new limits and be happy......you just need somebody to show you how......a good therapist can do that. Without talk therapy most people with depression never really get better....they just keep taking drugs that can make you confused and lethargic with no motivation. There is a very good therapy center on [facility]. [facility]......call there and get an appt to be seen......you need a change. 4. check your Blood sugars twice a day. Before breakfast and before supper. If the blood sugars are consistently > 250 call your doctor for advice on increasing the medication. If you are having blood sugas less than 80 call your doctor because the medication dose may need to be decreased. D NOT skip meals. Allergies/Adverse Reactions: Allergies No Known Allergies Allergy (Verified 10/25/19 09:59) Medications to take at Discharge Buspirone HCl 10 mg PO BID 03/07/19 Vit A/Vit C/Vit E/Zinc/Copper [Preservision Areds Softgel] 1 cap PO BID 03/07/19 apixaban 2.5 mg tablet 2.5 mg PO BID #180 tab 06/10/19 atorvastatin 40 mg tablet 40 mg PO DAILY #90 tab 06/10/19 Multivit-Min/FA/Lycopen/Lutein [Centrum Silver Men Tablet] 1 tab PO DAILY 10/25/19 Amiodarone HCl [Cordarone] 200 mg PO DAILY 10/28/19 Ferrous Sulfate 325 mg PO 1200,1700 10/28/19 Acetaminophen [Tylenol Tablet] 650 mg PO Q4H PRN PRN tablet 11/05/19 Bacitracin Ointment 1 applic TOPICAL BID tube 11/05/19 Cholecalciferol (VIT D3) [Vitamin D3] 1,000 unit PO DAILYCM tablet 11/05/19 Doxepin HCl [Sinequan] 75 mg PO QHS #90 cap 11/05/19 Glimepiride [Amaryl] 1 mg PO DAILY@0800 #30 tab 11/05/19 Insulin Glargine [Lantus SoloStar Pen] 15 units SUBCUT QHS #2 pen 11/05/19 Lisinopril [Zestril] 5 mg PO DAILY #30 tab 11/05/19 Melatonin 30 mg PO QHS #30 tab 11/05/19 Metoprolol Tartrate [Lopressor (beta elijah)] 25 mg PO BID #60 tab 11/05/19 Tamsulosin HCl [Flomax] 0.4 mg PO DAILY@1730 #30 cap 11/05/19 The following prescriptions were given: Glimepiride [Amaryl] 1 mg PO DAILY@0800 #30 tab Transmission Status: Pending to [facility] #30 Tamsulosin HCl [Flomax] 0.4 mg PO DAILY@1730 #30 cap Transmission Status: Pending to [facility] #30 Insulin Glargine [Lantus SoloStar Pen] 15 units SUBCUT QHS #2 pen Transmission Status: Pending to [facility] #30 Metoprolol Tartrate [Lopressor (beta elijah)] 25 mg PO BID #60 tab Transmission Status: Pending to [facility] #30 Melatonin 30 mg PO QHS #30 tab Prescription Printed Doxepin HCl [Sinequan] 75 mg PO QHS #90 cap Transmission Status: Pending to [facility] #30 Lisinopril [Zestril] 5 mg PO DAILY #30 tab Transmission Status: Pending to [facility] #30 Primary Care Physician: Jeremi Morel MD [Primary Care Provider] - Test Results: Test results from this visit will be discussed in further detail at your follow- up appointment, if applicable. Please Follow Up With: Dr. Jeremi Morel When: Proposed Discharge Date: 11/05/19
--- NOTE | 2019-11-05 10:36 | PCM.DC.SUM ---
Discharge Date and Diagnosis - Problem List Patient Problems: Active and Suspected Problems (Last Reviewed 10/29/19 @ 13:42 by Kat Heck DO) Physical debility (Acute) Abnormal LFTs (Acute) Significant closed head trauma within past 3 months (Acute) Date of Admission: 10/28/19 Date of Discharge: 11/05/19 - Primary Discharge Diagnosis Active and Suspected Problems (Last Reviewed 10/29/19 @ 13:42 by Kat Heck DO) Significant closed head trauma (Acute) due to a fall Physical debility (Acute) due to closed head trauma secondary to a fall thought to be due to orthostatic hypotension from dehydration and bradycardia Abnormal LFTs (Acute) Large hematoma R forehead Multiple abrasions secondary to a fall DM II - uncontrolled Hemoccult + stool - Secondary Discharge Diagnosis Chronic Problems (Last Reviewed 10/29/19 @ 13:42 by Kat Heck DO) Chronic Depression and anxiety Uncontrolled type 2 diabetes mellitus (Chronic) Chronic diastolic (congestive) heart failure (Chronic) Thrombocytopenia (Chronic) Normochromic normocytic anemia (Chronic) Chronic renal failure, stage 2 (mild) (Chronic) Vitamin D deficiency (Chronic) Chronic anticoagulation (Chronic) with Eliquis BPH (benign prostatic hyperplasia) (Chronic) - with urine retention, on Flomax Secondary pulmonary arterial hypertension (Chronic) Paroxysmal atrial fibrillation (Chronic) Essential (primary) hypertension (Chronic) Left bundle branch block (Chronic) H/O aortic valve replacement (Chronic 01/01/19) AVR w/ 25 mm Magna Ease Bioprosthetic Valve 01/01/19 H/O coronary artery bypass surgery (Chronic 01/01/19) CABG x 2 VILLALBA-LAD, SVG-Distal RCA and AVR w/ 25 mm Magna Ease Bioprosthetic Valve 01/01/19 Non-rheumatic aortic stenosis (Chronic) AVR w/ 25 mm Magna Ease Bioprosthetic Valve 01/01/19 Atherosclerosis of coronary artery of [place] heart without angina pectoris (Chronic) CABG x 2 VILLALBA-LAD, SVG-Distal RCA and AVR w/ 25 mm Magna Ease Bioprosthetic Valve 01/01/19 Hyperlipidemia (Chronic) Hospital Course and Treatment Imaging Results: Laboratory Tests 11/05/19 11/04/19 11/04/19 Range/Units 06:33 21:39 16:56 POC Glucose 146 H 138 H 106 (70-110) mg/dL 11/04/19 11/04/19 11/03/19 Range/Units 11:11 06:17 20:52 POC Glucose 167 H 126 H 181 H (70-110) mg/dL 11/03/19 11/03/19 11/03/19 Range/Units 16:33 11:01 06:20 POC Glucose 144 H 218 H 143 H (70-110) mg/dL 11/02/19 11/02/19 11/02/19 Range/Units 20:43 16:13 11:48 POC Glucose 185 H 145 H 143 H (70-110) mg/dL 11/02/19 11/01/19 11/01/19 Range/Units 06:48 21:34 16:17 POC Glucose 155 H 171 H 147 H (70-110) mg/dL 11/01/19 11/01/19 10/31/19 Range/Units 11:28 06:49 21:40 POC Glucose 175 H 156 H 137 H (70-110) mg/dL 10/31/19 10/31/19 10/31/19 Range/Units 17:32 11:33 07:36 POC Glucose 90 163 H 161 H (70-110) mg/dL 10/30/19 10/30/19 10/30/19 Range/Units 21:22 17:01 12:11 POC Glucose 190 H 94 188 H (70-110) mg/dL 10/30/19 10/29/19 10/29/19 Range/Units 06:37 21:47 17:17 POC Glucose 159 H 167 H 157 H (70-110) mg/dL 10/29/19 10/29/19 10/28/19 Range/Units 11:49 06:31 21:51 POC Glucose 223 H 196 H 236 H (70-110) mg/dL Microbiology 10/29/19 15:35 Urine, Random Urine Culture - Final Mixed Gram Positive Organisms 10/29/19 15:35 Stool Stool Occult Blood (REYMUNDO) - Final Occult Blood Positive none Operations: None Procedures: None Summary of Care Provided: The patient is a 84 year old M with a past medical history of hypertension, hyperlipidemia, chronic renal failure stage II, coronary artery disease (hx of CABG X 2 vessels on 01/01/19), secondary pulmonary hypertension, nonrheumatic aortic stenosis (status post aortic valve replacement on 01/01/19), right subclavian artery stenosis, left bundle branch block, chronic diastolic congestive heart failure, anxiety/depression, BPH and DM II who was admitted to the inpatient rehab unit at [facility] on 10/28 with closed head trauma secondary to a fall face first onto a concrete sidewalk and debility due to generalized weakness and falls for greater than 3 hours of therapy daily with a goal of returning him home at or near his prior level of independence. He lives by himself and has been having frequent falls at home. In the past he has been independent with ADL's. He has no steps at home and he drives. His dtr lives in [place] and his brother lives close to him. He was recently admitted to [facility] on 10/25/2019 after having a fall face first onto a concrete sidewalk and hitting his head. He sustained a large hematoma to the right frontal area and multiple abrasions over his face and extremities. At that time he was bradycardic on amiodarone 200 mg twice daily and metoprolol 50 mg twice daily. A noncontrasted CT of the brain revealed no acute findings at admission. Amiodarone was decreased to 1 time daily and the metoprolol was changed to 25 mg twice daily. Bradycardia has resolved. Also at that admission, he was very dehydrated with acute renal failure secondary to uncontrolled diabetes mellitus type 2 with a hemoglobin A1c of 13.2%. Hyponatremia and acute renal failure have resolved. Blood sugars are now well controlled. An echocardiogram within the past year revealed a normal left ventricular ejection fraction of 60% with mild concentric left ventricular hypertrophy and stage II diastolic dysfunction. There was mild to moderate MR and mild TR. The right ventricular systolic pressure was estimated to be 52 which is considered moderate pulmonary hypertension. He has been following up at the [facility] for many years and has been on Trazodone and Doxepin for many years. He has been having difficulty emptying his bladder and had urine retention in the hospital requiring temporary placement of a Webster catheter. He was started on Flomax and the Trazodone was discontinued. Doxepin was decreased to 75 mg Q HS. The catheter was removed for a voiding trial which he passed. His affect is flat and per his daughter he does not have much motivation since the AV surgery and CABG in December 2018. I recommended to him that he might benefit from a new set of eyes/second opinion on treatment of his apparently long standing depression. He was referred to the [facility]. He did very well with therapy and was discharged on 11/05/19. He was taught how to administer insulin and [facility] was set up by the for diabetic teaching(they will met with him at his home on 11/07/19). He has a follow up appt with Dr. Morel scheduled. Alert and oriented X3, NAD, appropriate, flat affect. MM are moist, he is edentulous Neck is supple and the trachea is midline Lungs - CTA with good air exchange throughout Heart - RRR, normal S1 and S2, no gallop ABD - soft, NT, ND, normal BS's in all quadrant, no guarding with palpation no edema and no calf tenderness no focal neurologic abnormalities This note was generated with [employer] dictation software. It may contain incorrect words, spelling, and punctuation that were not noted in checking the note before signing. Patient Problems: Active and Suspected Problems (Last Reviewed 10/29/19 @ 13:42 by Kat Heck DO) Physical debility (Acute) Abnormal LFTs (Acute) Significant closed head trauma within past 3 months (Acute) - Physical Exam Vitals/I&O's: Vital Signs Temp Pulse Resp BP Pulse Ox 97.9 F 62 16 140/64 H 94 11/05/19 07:00 11/05/19 07:50 11/05/19 07:00 11/05/19 07:00 11/05/19 07:00 Oxygen Delivery Method Room Air Weight: 192 lb 0.362 oz Body Mass Index (BMI) 28.3 Finger Stick Blood Glucose 98 Intake and Output for Last 24 Hours 11/03/19 11/04/19 11/05/19 23:59 23:59 23:59 Intake Total 840 / 840 600 / 600 450 / 450 Balance 840 / 840 600 / 600 450 / 450 Laboratory Results 11/04/19 11:11: POC Glucose 167 H 11/04/19 16:56: POC Glucose 106 11/04/19 21:39: POC Glucose 138 H 11/05/19 06:33: POC Glucose 146 H Current Medications Acetaminophen (Tylenol) 650 mg PO Q4H PRN PRN PRN Reason: Pain Score 1-10/10 Last Admin: 11/02/19 11:04 Dose: 650 mg Documented by: Amiodarone HCl (Cordarone) 200 mg PO DAILY [facility] Last Admin: 11/05/19 07:50 Dose: 200 mg Documented by: Apixaban (Eliquis) 2.5 mg PO BID [facility] Last Admin: 11/05/19 07:58 Dose: 2.5 mg Documented by: Atorvastatin Calcium (Lipitor) 40 mg PO QHS [facility] Last Admin: 11/04/19 21:50 Dose: 40 mg Documented by: Bacitracin (Bacitracin Ointment) 1 applic TOPICAL BID [facility]; Protocol Last Admin: 11/05/19 07:53 Dose: 1 applicatio Documented by: Bisacodyl (Dulcolax) 10 mg RECTAL .PRN X 1 PRN PRN Reason: Constipation Buspirone HCl (Buspar) 10 mg PO BID [facility] Last Admin: 11/05/19 07:49 Dose: 10 mg Documented by: Capsaicin (Zostrix) 1 applic TOPICAL BID [facility]; Protocol Last Admin: 11/05/19 07:53 Dose: 1 applicatio Documented by: Cholecalciferol (Vitamin D) 1,000 unit PO DAILYCM [facility] Last Admin: 11/05/19 07:49 Dose: 1,000 unit Documented by: Doxepin HCl (Sinequan) 75 mg PO QHS [facility] Last Admin: 11/04/19 21:50 Dose: 75 mg Documented by: Emollient Ointment (Eucerin Intensive Repair) 1 applic TOPICAL 4X/DAY PRN PRN; Protocol PRN Reason: DRY SKIN Last Admin: 10/30/19 21:32 Dose: 1 applicatio Documented by: Ferrous Sulfate (Ferrous Sulfate) 325 mg PO 1200,1700 [facility] Last Admin: 11/04/19 16:57 Dose: 325 mg Documented by: Glimepiride (Amaryl) 1 mg PO DAILY@0800 [facility] Last Admin: 11/05/19 07:50 Dose: 1 mg Documented by: Sodium Chloride () 250 mls @ 15 mls/hr IV .[id number] PRN PRN Reason: SALINE FLUSH Last Infusion: 11/01/19 16:46 Dose: Infused Documented by: Insulin Glargine (Lantus (Bkc)) 15 units SC QHS [facility] Last Admin: 11/04/19 21:51 Dose: 15 u Documented by: Insulin Human Lispro (Humalog Kwikpen ([facility])) 0 unit SC TIDAC [facility]; Protocol Last Admin: 11/05/19 07:47 Dose: Not Given Documented by: Lisinopril (Zestril) 5 mg PO DAILY [facility] Last Admin: 11/05/19 07:49 Dose: 5 mg Documented by: Magnesium Hydroxide (Milk Of Magnesia) 30 ml PO .PRN X 1 PRN PRN Reason: Constipation Metoprolol Tartrate (Lopressor (Beta Triston)) 25 mg PO BID [facility] Last Admin: 11/05/19 07:50 Dose: 25 mg Documented by: Multivitamins/Minerals (Multivitamin With Minerals) 1 tablet PO DAILY@0800 [facility] Last Admin: 11/05/19 07:49 Dose: 1 tablet Documented by: Multivitamins/Minerals (Healthy Eyes) 1 capsule PO BID [facility] Last Admin: 11/05/19 07:49 Dose: 1 capsule Documented by: Senna/Docusate Sodium (Senokot-S, Martha-Colace) 2 tablet PO BID [facility] Last Admin: 11/05/19 07:49 Dose: 1 tablet Documented by: Sodium Chloride () 10 - 40 ml IV UD PRN PRN Reason: SALINE FLUSH Last Admin: 10/30/19 21:42 Dose: 10 ml Documented by: Tamsulosin HCl (Flomax) 0.4 mg PO DAILY@1730 [facility] Last Admin: 11/04/19 16:57 Dose: 0.4 mg Documented by: Discharge Activity: Return to Normal Activity Call your doctor if you observe: Fever of 101 or Higher, Inability to urinate, Inability to have a bowel movement, Shortness of breath, Dizziness, Fainting spells, Swelling in the ankles, Chest pain, Calf discomfort, Uncontrolled pain Home Medications: Medications to take at Discharge Buspirone HCl 10 mg PO BID 03/07/19 Vit A/Vit C/Vit E/Zinc/Copper [Preservision Areds Softgel] 1 cap PO BID 03/07/19 apixaban 2.5 mg tablet 2.5 mg PO BID #180 tab 06/10/19 atorvastatin 40 mg tablet 40 mg PO DAILY #90 tab 06/10/19 Multivit-Min/FA/Lycopen/Lutein [Centrum Silver Men Tablet] 1 tab PO DAILY 10/25/19 Amiodarone HCl [Cordarone] 200 mg PO DAILY 10/28/19 Ferrous Sulfate 325 mg PO 1200,1700 10/28/19 Acetaminophen [Tylenol Tablet] 650 mg PO Q4H PRN PRN tablet 11/05/19 Bacitracin Ointment 1 applic TOPICAL BID tube 11/05/19 Cholecalciferol (VIT D3) [Vitamin D3] 1,000 unit PO DAILYCM tablet 11/05/19 Doxepin HCl [Sinequan] 75 mg PO QHS #90 cap 11/05/19 Glimepiride [Amaryl] 1 mg PO DAILY@0800 #30 tab 11/05/19 Insulin Glargine [Lantus SoloStar Pen] 15 units SUBCUT QHS #2 pen 11/05/19 Lisinopril [Zestril] 5 mg PO DAILY #30 tab 11/05/19 Melatonin 30 mg PO QHS #30 tab 11/05/19 Metoprolol Tartrate [Lopressor (beta triston)] 25 mg PO BID #60 tab 11/05/19 Tamsulosin HCl [Flomax] 0.4 mg PO DAILY@1730 #30 cap 11/05/19 Following Prescrptions Were Given to Patient: Glimepiride [Amaryl] 1 mg PO DAILY@0800 #30 tab Transmission Status: Pending to [facility]30 Tamsulosin HCl [Flomax] 0.4 mg PO DAILY@1730 #30 cap Transmission Status: Pending to [facility] #30 Insulin Glargine [Lantus SoloStar Pen] 15 units SUBCUT QHS #2 pen Transmission Status: Pending to [facility]30 Metoprolol Tartrate [Lopressor (beta triston)] 25 mg PO BID #60 tab Transmission Status: Pending to [facility] #30 Melatonin 30 mg PO QHS #30 tab Prescription Printed Doxepin HCl [Sinequan] 75 mg PO QHS #90 cap Transmission Status: Pending to [facility]30 Lisinopril [Zestril] 5 mg PO DAILY #30 tab Transmission Status: Pending to [facility]30 Primary Care Physician: Jeremi Morel MD [Primary Care Provider] - Please Follow Up With: Dr. Jeremi Morel When: Patient Instructions: Depression Affects Your Mind and Body, What Can Cause Depression?, Counseling for Depression, Depression: Tips to Help Yourself Minutes spent on discharge:: 45 Patient Condition:: Good Medical Necessity - Tobacco Use Smoking Status: Former smoker Tobacco Use: Non-smoker, Cigars Meaningful Use Info Meaningful Use Diagnoses (Choose all that apply): None applicable Code Visit Inpatient E&M: 82883 Disch Hosp
== END 2019-11-05 11:50 | disposition home health service (06) | DRG 949 ==
PROVIDERS: Admitting Provider Internal Medicine; Family Provider Internal Medicine; PCP Internal Medicine; Referring Provider Internal Medicine; Visit Provider Internal Medicine
DX: S00.83XD Contusion of other part of head, subsequent encounter (principal); I50.32 Chronic diastolic (congestive) heart failure; I13.0 Hypertensive heart and chronic kidney disease with heart failure and stage 1 through stage 4 chronic kidney disease, or unspecified chronic kidney disease; I48.20 Chronic atrial fibrillation, unspecified; W19.XXXD Unspecified fall, subsequent encounter; Z23 Encounter for immunization; N18.2 Chronic kidney disease, stage 2 (mild); E11.65 Type 2 diabetes mellitus with hyperglycemia; E11.22 Type 2 diabetes mellitus with diabetic chronic kidney disease; I27.21 Secondary pulmonary arterial hypertension; I48.0 Paroxysmal atrial fibrillation; I25.10 Atherosclerotic heart disease of native coronary artery without angina pectoris; E78.5 Hyperlipidemia, unspecified; F32.9 Major depressive disorder, single episode, unspecified; F41.9 Anxiety disorder, unspecified; N40.1 Benign prostatic hyperplasia with lower urinary tract symptoms; R39.14 Feeling of incomplete bladder emptying; R29.6 Repeated falls; D50.9 Iron deficiency anemia, unspecified; Z87.891 Personal history of nicotine dependence; Z95.1 Presence of aortocoronary bypass graft
CPT/HCPCS: 82274; 82962; 87086; 87088; 92523; 97110; 97116; 97162; 97166; 97530; 97535; 97802; 99251; J7050; 90686; A4216; G0463

== ENCOUNTER → 2019-11-19 12:00 | Outpatient (CLI) | payer MEDICARE, SELFPAY ==
[2019-11-19 07:45] VITALS: BMI 29.5
== END ==
PROVIDERS: Family Provider Internal Medicine; PCP Internal Medicine; Referring Provider Internal Medicine Cardiovascular Disease; Visit Provider Internal Medicine Cardiovascular Disease
DX: R06.09 Other forms of dyspnea (principal)
CPT/HCPCS: 36415; 83880

== ENCOUNTER → 2021-07-27 08:29 | Outpatient (CLI) | payer MEDICARE, SELFPAY ==
--- NOTE | 2021-07-27 08:35 | CDU_ITS ---
Reason For Study: BRUIT Rt. Velocities/BP Lt. Velocities/BP Prox CCA 90/11 cm/sec. Prox CCA 137/15 cm/sec. Mid CCA 117/13 cm/sec. Mid CCA 126/15 cm/sec. Dist CCA 107/12 cm/sec. Dist CCA 115/17 cm/sec. Prox ICA 88/15 cm/sec. Prox ICA 83/12 cm/sec. Mid ICA 115/16 cm/sec. Mid ICA 91/12 cm/sec. Dist ICA 119/16 cm/sec. Dist ICA 100/15 cm/sec. Rt. ICA/CCA = 1.1. Lt. ICA/CCA = .8. Prox ECA 328/14 cm/sec. Prox ECA 140/0 cm/sec. RETROGRADE. Lt. Vert. 82/12 cm/sec. Right Extracranial There is heterogeneous, irregular atherosclerotic plaque noted in the right common carotid artery. There is homogeneous, smooth atherosclerotic plaque noted in the right common carotid artery. There is heterogeneous, irregular atherosclerotic plaque noted in the right internal carotid artery. There is heterogeneous, irregular atherosclerotic plaque noted in the right external carotid artery. RETROGRADE FLOW noted in Rt Vert. There is heterogeneous, irregular atherosclerotic plaque noted in the right bulb. Left Extracranial There is heterogeneous, irregular atherosclerotic plaque noted in the left common carotid artery. There is homogeneous, smooth atherosclerotic plaque noted in the left common carotid artery. There is heterogeneous, irregular atherosclerotic plaque noted in the left internal carotid artery. There is homogeneous, smooth atherosclerotic plaque noted in the left external carotid artery. Antegrade flow is noted in the left vertebral artery. There is heterogeneous, irregular atherosclerotic plaque noted in the left bulb. Procedure Carotid Duplex [id number]. Exam performed in department. VL/Carotid Duplex Ultrasound Interpretation Summary Irregular calcific plaque with shadowing at the proximal right internal carotid artery with less than 50% stenosis Greater than 50% stenosis right external carotid artery Retrograde flow right vertebral suspicious for subclavian steal and proximal ri ght subclavian stenosis Smooth plaque at the proximal left internal carotid artery with less than 50% s tenosis Less than 50% stenosis left external carotid artery Patent and antegrade left vertebral Ordering Physician: Tami Emery Referring Physician: NATY CHOE Performed By: Ellen Laird RDCS, RVT
== END ==
PROVIDERS: PCP Internal Medicine; Referring Provider Physician Assistant Medical; Visit Provider Physician Assistant Medical
DX: R09.89 Other specified symptoms and signs involving the circulatory and respiratory systems (principal)
CPT/HCPCS: 93880

== ENCOUNTER 2021-10-15 16:49 | Observation (INO) | payer MEDICARE, SELFPAY ==
[2021-10-15] VITALS (11 sets, daily range): BP systolic 110–176; BP diastolic 65–75; PULSE 80–101; RESP 18–28; TEMP 36.1–37.1; O2SAT 91–96; BMI 32.6; BMI 32.2
--- NOTE | 2021-10-15 18:05 | EKG12_ITS ---
Test Reason : DYSRHYTHMIA Blood Pressure : / mmHG Vent. Rate : 091 BPM Atrial Rate : 091 BPM P-R Int : 220 ms QRS Dur : 138 ms QT Int : 410 ms P-R-T Axes : 038 079 -47 degrees QTc Int : 504 ms Sinus rhythm with 1st degree A-V block Non-specific intra-ventricular conduction block T wave abnormality, consider inferior ischemia Abnormal ECG Confirmed by ERIN BLANK, GENOVEVA ([id number]), acquisitions editor MARICRUZ ANGUIANO ([id number]) on 10/18/2021 10:07:02 AM Referred By: KIET Confirmed By:GENOVEVA KHAN MD
--- NOTE | 2021-10-15 18:07 | ED.VIS.DYS ---
HPI History of Present Illness Chief Complaint: Shortness of Breath Narrative Narrative: Patient with multiple medical problems ranging from diabetes, coronary artery disease, atrial fibrillation, on a blood thinner, presents with shortness of breath and increasing dyspnea on exertion for the last 3 to 4 days. He had subjective fever, and occasional cough, but really has more dyspnea and dyspnea on exertion. He denies any leg swelling, no nausea or vomiting, no other symptoms. He has been vaccinated against Covid. No chest pain. He presents because even with the lightest activity he becomes short of breath. [facility] Medical History Abnormal LFTs Abrasions of multiple sites Acute on chronic renal failure Anxiety and depression Atherosclerosis of coronary artery of [place] heart without angina pectoris BPH (benign prostatic hyperplasia) Bradycardia Carotid artery bruit Chronic diastolic (congestive) heart failure Chronic kidney disease Chronic renal failure, stage 2 (mild) Dehydration Diabetes Elevated LFTs Essential (primary) hypertension Fall Frequent falls Hyperkalemia Hyperlipidemia Hypoglycemia associated with type 2 diabetes mellitus Hyponatremia Iron deficiency anemia Left bundle branch block Near syncope Near syncope Non-rheumatic aortic stenosis Obesity Obesity Paroxysmal atrial fibrillation Physical debility Pleural effusion on left Postoperative atrial fibrillation (01/01/19) Secondary pulmonary arterial hypertension Significant closed head trauma within past 3 months Stenosis of right subclavian artery Stenosis of right subclavian artery Thrombocytopenia Thyroid nodule Type 2 diabetes mellitus Vitamin D deficiency Home Medications buspirone 10 mg PO BID 03/07/19 [History Last Taken 10/25/19] vitamins A,C,Z-csil-fbnbdm 1 cap PO BID 03/07/19 [History Last Taken 10/25/19] vapevicp-tql-HW-lycopen-lutein 1 tab PO DAILY 10/25/19 [History Last Taken 10/25/19] tamsulosin 0.4 mg PO DAILY@1730 #30 cap 11/05/19 [Rx Last Taken Unknown] Melatonin 5 mg PO QHS tab 05/18/20 [History Last Taken Unknown] furosemide 40 mg tablet 40 mg PO DAILY #90 tab 11/19/20 [Rx Last Taken Unknown] doxepin 75 mg capsule 75 mg PO DAILY cap 01/05/21 [History Last Taken Unknown] Iron 65 mg PO BID 01/15/21 [History Last Taken Unknown] atorvastatin 40 mg tablet 40 mg PO DAILY #90 tab 04/30/21 [Rx Last Taken Unknown] metoprolol tartrate 25 mg tablet 12.5 mg PO BID #90 tab 04/30/21 [Rx Last Taken Unknown] apixaban 2.5 mg tablet 2.5 mg PO BID #60 tab 06/03/21 [Rx Last Taken Unknown] insulin lispro protamine-lispro 100 unit/mL (50-50) subcutaneous pen 35 unit SC BID #21 ml 06/03/21 [Rx Last Taken Unknown] lisinopril 20 mg tablet 20 mg PO BID #180 tab 06/03/21 [Rx Last Taken Unknown] amlodipine 10 mg tablet 10 mg PO DAILY #90 tab 08/02/21 [Rx Last Taken Unknown] glimepiride 4 mg tablet 4 mg PO DAILY #30 tab 08/24/21 [Rx Last Taken Unknown] Allergy/AdvReac Type Severity Reaction Status Date / Time No Known Allergies Allergy Verified 09/01/21 10:15 Family History Father CVA (cerebral vascular accident) Mother COPD (chronic obstructive pulmonary disease) Surgical History H/O aortic valve replacement (01/01/19) H/O coronary artery bypass surgery (01/01/19) History of cataract surgery History of hip replacement History of left heart catheterization (10/31/18) History of open reduction and internal fixation (ORIF) procedure History of thoracentesis (01/05/19) Social History Smoking Status: Former smoker quit date: 11/13/03 how long ago did patient quit smoking: cigars ROS ROS ED ROS Narrative Constitutional: No fever, but subjectively warm, no chills. HEENT: No sore throat. No neck pain. No loss of vision. No rhinorrhea. Cardiovascular: No chest pain. No palpitations. No pedal edema. Respiratory: Rare cough, positive shortness of breath, positive dyspnea on exertion. Abdominal: No abdominal pain. No nausea. No vomiting. Genitourinary: No dysuria. No hematuria. Musculoskeletal: No myalgias. No arthralgias. Neurologic: No headaches. No dizziness. No lightheadedness. Skin: No rash. No change in color. Psychiatric: No depression. No anxiety. EXAM Physical Exam Narrative Exam Narrative: Afebrile. Vital signs noted. HEENT: Normocephalic. Atraumatic. PERRL, EOMI. Neck soft and supple. No point tenderness or step off. Cardiovascular: Regular rate and rhythm. No murmurs, rubs, or gallops appreciated. Respiratory: No tachypnea. Decreased breath sounds with occasional rales bilateral bases. Speaking in full sentences. Gastrointestinal: Abdomen soft, nontender, with normoactive bowel sounds. No rebound or guarding. Neurological: Awake. Alert. Nonfocal, nonlateralizing. Skin: No rash. Normal color. No pallor. Musculoskeletal: Trace bilateral, symmetric pedal edema. Full range of motion extremities. Const Vital Signs: 10/15/21 16:49 10/15/21 17:49 10/15/21 17:53 Temperature 97 F L Temperature Source Temporal Pulse Rate 97 94 Respiratory Rate 28 H 19 H Respiratory Effort Normal Respiratory Depth Normal Respiratory Pattern Normal Blood Pressure 174/71 H 131/75 H Blood Pressure Mean 105 93 Pulse Ox 94 94 Oxygen Delivery Method Room Air Room Air Room Air 10/15/21 18:23 10/15/21 19:05 10/15/21 20:05 Temperature Temperature Source Pulse Rate 96 96 100 Respiratory Rate 22 H 19 H Respiratory Effort Respiratory Depth Respiratory Pattern Tachypnea Blood Pressure 110/73 128/75 H Blood Pressure Mean 85 92 Pulse Ox 91 Oxygen Delivery Method Room Air 10/15/21 20:23 Temperature 98.0 F Temperature Source Oral Pulse Rate 97 Respiratory Rate 23 H Respiratory Effort Respiratory Depth Respiratory Pattern Blood Pressure 128/72 H Blood Pressure Mean 90 Pulse Ox 93 Oxygen Delivery Method Room Air MDM MDM MDM Narrative Medical decision making narrative: Comprehensive work-up was pursued. Concern is for CHF versus COPD. He was swabbed for Covid. His pulse ox is 94% on room air without evidence of hypoxia. His Covid swab is negative. He was given a DuoNeb aerosolized treatment. White count slightly elevated 11.8 which I think is nonspecific, hemoglobin stable at 13 with hematocrit 39.1. He is slightly thrombocytopenic with a platelet count of 143, sodium low at 135 with a BUN of 25 and a creatinine of 1.09. Glucose is elevated at 191, but he has a normal anion gap of 10. High-sensitivity troponin normal at 19. BNP is slightly elevated at 160. He was administered Lasix. When he ambulates, his pulse ox goes down to 86% on room air and he becomes tachypneic. He does not wear oxygen at home. Furthermore, he lives alone. I feel he is having more of a CHF exacerbation with respiratory failure. Patient was discussed with Dr. Noriega for admission to the PCU. He is in stable condition. Lab Data Labs: Laboratory Results - last 24 hr 10/15/21 10/15/21 10/15/21 18:15 18:15 18:15 WBC 11.8 H RBC 4.51 L Hgb 13.0 Hct 39.1 L MCV 86.7 MCH 28.8 MCHC 33.2 RDW Std Deviation 47.2 H RDW Coeff of Torie 14.7 H Plt Count 143 L MPV 10.4 Immature Gran % (Auto) 0.500 Neut % (Auto) 79.9 H Lymph % (Auto) 12.5 L [place] % (Auto) 5.7 Eos % (Auto) 1.1 Baso % (Auto) 0.3 Absolute Neuts (auto) 9.4 H Absolute Lymphs (auto) 1.48 Nucleated RBC % 0 Sodium 135 L Potassium 4.3 Chloride 101 Carbon Dioxide 24.0 Anion Gap 10 BUN 25 H Creatinine 1.09 Estim Creat Clear Calc 48.81 Est GFR (MDRD) Af Amer 83 Est GFR (MDRD) Non-Af 68 BUN/Creatinine Ratio 22.9 H Glucose 191 H Calcium 9.9 Troponin I High Sens 19 B-Natriuretic Peptide 160.6 H Discharge Plan Dx/Rx/DC Orders Clinical Impression: Acute exacerbation of CHF (congestive heart failure), Respiratory failure with hypoxia, ALLEN (dyspnea on exertion) Disposition Disposition: Acute Care [facility]
[2021-10-15 18:20] LABS: Absolute Lymphocyte Count 1.48 X10^3/uL (0.83-4.51); Absolute Neutrophil Count 9.4 X10^3/uL (2.0-7.7); Basophil# 0.04 X10^3/uL; Basophil% 0.3 % (0-1); Eosinophil# 0.13 X10^3/uL; Eosinophils% 1.1 % (0-5); Hematocrit 39.1 % (40-54); Lymphocyte # 1.48 X10^3/ul (0.83-4.51); Lymphocyte % 12.5 % (19-41); Mean Corp Hgb Conc 33.2 g/dL (32-36); Mean Corpuscular Hgb 28.8 pg (27.0-32.0); Mean Corpuscular Volume 86.7 fL (80-94); Mean Platelet Vol. 10.4 fl (6.2-12.0); Monocyte# 0.67 X10^3/uL; Monocyte% 5.7 % (0-10); NRBC Flagged by Analyzer 0 % (0-5); Neutrophil # 9.42 X10^3/uL (2.7-7.7); Neutrophil % 79.9 % (47-70); Platelet Count 143 K/mm3 (150-450); RBC Distribution Width CV 14.7 % (11.6-14.6); RBC Distribution Width SD 47.2 fl (35.1-43.9); Red Blood Count 4.51 M/mm3 (4.6-6.2); White Blood Count 11.8 K/mm3 (4.4-11.0)
[2021-10-15] MEDS: Ipratropium/Albuterol Sulfate 3 ML AMPUL.NEB INHALATION (18:23)
--- NOTE | 2021-10-15 18:33 | RAD_ITS ---
STUDY: X-RAY CHEST REASON FOR EXAM: Male, 86 years old. Shortness of Breath TECHNIQUE: Single AP portable view of the chest. COMPARISON: 03/07/2019. FINDINGS: Small right pleural effusion. Mild opacities in the right lower lobe are new compared to the prior study. Normal size heart. Normal mediastinum and jj. Normal visualized pulmonary arteries. Normal visualized aortic arch and descending thoracic aorta. Normal visualized thoracic spine. Normal visualized ribs, clavicles, and shoulders. There is no demonstrated abnormality of the visualized soft tissue structures of the upper abdomen. RAD/Chest 1 View (Portable) IMPRESSION: Right pleural effusion. Mild opacities in the right lung are suspicious for pneumonia. Electronically Signed: Helga Gates MD at 22:29 EST Tel , Service support ,
[2021-10-15 18:37] LABS: Anion Gap 10 (5-15); BUN 25 mg/dL (7-18); BUN/Creat Ratio 22.9 RATIO (10-20); Calcium,Total 9.9 mg/dL (8.5-10.1); Chloride 101 mmol/L (98-107); Creatinine, Serum 1.09 mg/dL (0.70-1.30); EST Glomerular Filtration Rate 68 mL/min (>60); Est Glom Filt Rate - Afr Amer 83 mL/min (>60); Estimated Creatinine Clearance 48.81 ml/min; Glucose 191 mg/dL (74-106); Potassium 4.3 mmol/L (3.5-5.1); Sodium Level 135 mmol/L (136-145); Troponin-I HS 19 pg/mL (3.0-78.0)
[2021-10-15 18:44] LABS: BNP,B-Type NATRIURETIC PEPTIDE 160.6 pg/mL (0-100)
[2021-10-15] MEDS: Furosemide 40 MG/4 ML Vial IV (20:49)
--- NOTE | 2021-10-15 22:05 | HP.PCM.HOS_ITS ---
HPI - General General Date of Admission: 10/15/21 HPI Narrative TIRSO ACLDERÓN, is a 86 M with multiple comorbidities including coronary artery disease/CABG came to ER with shortness of breath that started 4 days ago. Patient reported dyspnea on exertion walking to driveway to mailbox. Denies chest pain/tightness or pressure. No cough or sputum production. Denies URI. No fever or chills. No change in body weight or leg swelling. Chest x-ray reported right pleural effusion, enlarged Stacey B line with mild opacity in the right lung. Patient had COVID-19 vaccine in February. Rapid antigen negative. Labs reviewed. BNP elevated. Mild slight leukocytosis 11.8 thousand. Neutrophilia. Twelve-lead EKG normal sinus rhythm 91 bpm, QRS 138 ms, LBBB, QTC prolonged 504 ms. Previous EKG of October 25, 2019 shows mild sinus bradycardia at 44 beats per, LAD, nonspecific and AV block, similar to current EKG. [facility] Medical History Abnormal LFTs Abrasions of multiple sites Acute on chronic renal failure Anxiety and depression Atherosclerosis of coronary artery of [place] heart without angina pectoris BPH (benign prostatic hyperplasia) Bradycardia Carotid artery bruit Chronic diastolic (congestive) heart failure Chronic kidney disease Chronic renal failure, stage 2 (mild) Dehydration Diabetes Elevated LFTs Essential (primary) hypertension Fall Frequent falls Hyperkalemia Hyperlipidemia Hypoglycemia associated with type 2 diabetes mellitus Hyponatremia Iron deficiency anemia Left bundle branch block Near syncope Near syncope Non-rheumatic aortic stenosis Obesity Obesity Paroxysmal atrial fibrillation Physical debility Pleural effusion on left Postoperative atrial fibrillation (01/01/19) Secondary pulmonary arterial hypertension Significant closed head trauma within past 3 months Stenosis of right subclavian artery Stenosis of right subclavian artery Thrombocytopenia Thyroid nodule Type 2 diabetes mellitus Vitamin D deficiency Home Medications buspirone 10 mg PO BID 03/07/19 [History Last Taken 10/25/19] vitamins A,C,U-bkzh-mfajkv 1 cap PO BID 03/07/19 [History Last Taken 10/25/19] miclmyjj-aip-RJ-lycopen-lutein 1 tab PO DAILY 10/25/19 [History Last Taken 10/25/19] tamsulosin 0.4 mg PO DAILY@1730 #30 cap 11/05/19 [Rx Last Taken Unknown] Melatonin 5 mg PO QHS tab 05/18/20 [History Last Taken Unknown] furosemide 40 mg tablet 40 mg PO DAILY #90 tab 11/19/20 [Rx Last Taken Unknown] doxepin 75 mg capsule 75 mg PO DAILY cap 01/05/21 [History Last Taken Unknown] Iron 65 mg PO BID 01/15/21 [History Last Taken Unknown] atorvastatin 40 mg tablet 40 mg PO DAILY #90 tab 04/30/21 [Rx Last Taken Unknown] metoprolol tartrate 25 mg tablet 12.5 mg PO BID #90 tab 04/30/21 [Rx Last Taken Unknown] apixaban 2.5 mg tablet 2.5 mg PO BID #60 tab 06/03/21 [Rx Last Taken Unknown] insulin lispro protamine-lispro 100 unit/mL (50-50) subcutaneous pen 35 unit SC BID #21 ml 06/03/21 [Rx Last Taken Unknown] lisinopril 20 mg tablet 20 mg PO BID #180 tab 06/03/21 [Rx Last Taken Unknown] amlodipine 10 mg tablet 10 mg PO DAILY #90 tab 08/02/21 [Rx Last Taken Unknown] glimepiride 4 mg tablet 4 mg PO DAILY #30 tab 08/24/21 [Rx Last Taken Unknown] Allergy/AdvReac Type Severity Reaction Status Date / Time No Known Allergies Allergy Verified 09/01/21 10:15 Family History Father CVA (cerebral vascular accident) Mother COPD (chronic obstructive pulmonary disease) Surgical History H/O aortic valve replacement (01/01/19) H/O coronary artery bypass surgery (01/01/19) History of cataract surgery History of hip replacement History of left heart catheterization (10/31/18) History of open reduction and internal fixation (ORIF) procedure History of thoracentesis (01/05/19) Social History Smoking Status: Former smoker quit date: 11/13/03 how long ago did patient quit smoking: cigars ROS ROS Narrative Constitutional: Reports fatigue and weakness. No weight gain stable about 215 pound. HEENT: Reports systems reviewed and no addt'l complaints, except as documented Respiratory/Chest: As mentioned in HPI. Gastrointestinal: Denies coffee ground emesis, hematemesis or vomiting Genitourinary: Denies burning urination or new urinary tract symptoms Musculoskeletal: Chronic arthritis of lower extremities and limited range of motion Neurologic: Denies seizure-like activity skin: No ulcer. No rash Endocrinology: Reports systems reviewed and no addt'l complaints, except as documented Hematologic/Lymphatic: Reports systems reviewed and no addt'l complaints, except as documented Rest 12 ROS are negative except as mentioned in HPI Vital Signs Vital Signs Vital Signs: 10/15/21 16:49 10/15/21 17:49 10/15/21 17:53 Temperature 97 F L Temperature Source Temporal Pulse Rate 97 94 Respiratory Rate 28 H 19 H Respiratory Effort Normal Respiratory Depth Normal Respiratory Pattern Normal Blood Pressure 174/71 H 131/75 H Blood Pressure Mean 105 93 Pulse Ox 94 94 Oxygen Delivery Method Room Air Room Air Room Air 10/15/21 18:23 10/15/21 19:05 10/15/21 20:05 Temperature Temperature Source Pulse Rate 96 96 100 Respiratory Rate 22 H 19 H Respiratory Effort Respiratory Depth Respiratory Pattern Tachypnea Blood Pressure 110/73 128/75 H Blood Pressure Mean 85 92 Pulse Ox 91 Oxygen Delivery Method Room Air 10/15/21 20:23 10/15/21 21:50 Temperature 98.0 F 98.7 F Temperature Source Oral Temporal Pulse Rate 97 80 Respiratory Rate 23 H 18 Respiratory Effort Respiratory Depth Respiratory Pattern Blood Pressure 128/72 H 128/68 H Blood Pressure Mean 90 88 Pulse Ox 93 96 Oxygen Delivery Method Room Air Room Air Weight Weight: 212 lb 1.355 oz Body Mass Index (BMI) 32.2 Physical Exam Narrative General: Alert, Oriented x3, Cooperative HEENT: Atraumatic, PERRLA, EOMI, Normocephalic Oral: No Gingival or Mucosal Lesions/ Ulcerations Neck: Supple, No JVD, Negative Carotid Bruits Lungs: Air entry diminished in bilateral lung bases. No crepitation/rhonchi Cardiovascular: Sinus rhythm, Normal S2, systolic and diastolic murmur over right second ICS and LLSB. Abdomen: Bowel Sounds Present, Soft, Non Tender, Non-Distended : No renal angle tenderness. No suprapubic tenderness. Extremities: No edema, Capillary Refill Less than 3 Seconds Skin: No rashes, No breakdown Musculoskeletal: No Tenderness to Palpation of Joints or Extremities Neurological: Cranial nerves II-XII grossly intact, DTR 2+/4 and Symmetrical, Neuro grossly intact Psych/Mental Status: Normal Affect, Appropriate. Results Lab / Micro Data Result Diagrams: 10/15/21 18:15 10/15/21 18:15 Labs: Laboratory Results - last 24 hr 10/15/21 18:15: WBC 11.8 H, RBC 4.51 L, Hgb 13.0, Hct 39.1 L, MCV 86.7, MCH 28.8, MCHC 33.2, RDW Std Deviation 47.2 H, RDW Coeff of Torie 14.7 H, Plt Count 143 L, MPV 10.4, Immature Gran % (Auto) 0.500, Neut % (Auto) 79.9 H, Lymph % (Auto) 12.5 L, [place] % (Auto) 5.7, Eos % (Auto) 1.1, Baso % (Auto) 0.3, Absolute Neuts (auto) 9.4 H, Absolute Lymphs (auto) 1.48, Nucleated RBC % 0 10/15/21 18:15: Sodium 135 L, Potassium 4.3, Chloride 101, Carbon Dioxide 24.0, Anion Gap 10, BUN 25 H, Creatinine 1.09, Estim Creat Clear Calc 48.81, Est GFR (MDRD) Af Amer 83, Est GFR (MDRD) Non-Af 68, BUN/Creatinine Ratio 22.9 H, Glucose 191 H, Calcium 9.9, Troponin I High Sens 19 10/15/21 18:15: B-Natriuretic Peptide 160.6 H Micro: Microbiology 10/15/21 18:25 Mucosa - Nose Influenza Types A,B Direct FA (REYMUNDO) - Final 10/15/21 18:11 Nasal Secretion SARS-CoV-2 Antigen (Rapid) - Final Assessment & Plan Assessment/Plan (1) Acute exacerbation of CHF (congestive heart failure): PLAN: 1. Acute on chronic HFpEF/diastolic heart failure: Patient had last echo in February 2019 reported as EF 60%, mild concentric LVH, LV systolic function normal, stage II diastolic dysfunction. Segmental hypokinesis. LA moderately enlarged. RVSP 42 mmHg Patient is being admitted in PCU. Repeat 2D echo. Lasix 40 mg IV twice daily, titrate as per fluid hemodynamics, electrolytes and kidney function. The patient is on beta-elijah, lisinopril and high intensity statin. 2. Coronary artery status post two-vessel CABG, history of bioprosthetic AVR, hypertension, dyslipidemia and paroxysmal A. fib on low-dose Eliquis 2.5 twice daily. Denies chest pain. Cycle cardiac enzymes. Rest as mentioned above 3. CKD stage IIIa: Creatinine 1.09, estimated creatinine clearance 48 mm/min. 4. Diabetes mellitus type 2: Patient follows Dr. Fortino Lo. Glucose in BMP 191. Home schedule of insulin and glimepiride continued. Accu-Chek insulin coverage Humalog sliding scale and titrate the dose of insulin accordingly. 5. Other comorbidities include anxiety and depression, degenerative joint disease, obesity grade 2, stenosis of right subclavian artery: Home medication reconciliation done Living will/advanced directive/end of life care: Patient does have living will or advanced directive. His daughter is power of claims attorney for health after discussion of benefits/risks procedures involved with full code, DNR CC arrest and DNR CC, the patient opted for full code. Patient does want artificial life support including intubation, tube feed, ventilator and/chest compression, central venous catheter, vasopressor and DC sh ock if needed Total time spent in [id number] encounter in discussion of advanced directive 16 minutes. Charges/Coding Visit Charges OBSV E&M: 29536 Initial observation care L3 Procedures Hospitalists Procedures: 03575 Advncd Care Plan 30 Min
--- NOTE | 2021-10-15 22:12 | PCS.PANDOC ---
PANDEMIC DOCUMENTATION INITIATED: Date: 06/28/2021 Time: 190
[2021-10-15 22:56] LABS: Bedside Glucose 234 mg/dL (70-110)
[2021-10-15] MEDS: Metoprolol Tartrate 25 MG Tablet 12.5 MG PO (23:06)
[2021-10-15] MEDS: Lisinopril 10 MG Tablet PO (23:06)
[2021-10-15] MEDS: APIXABAN 2.5 MG TABLET PO (23:08)
[2021-10-15 23:18] LABS: Magnesium 2.1 mg/dL (1.6-2.6); Troponin-I HS 24 pg/mL (3.0-78.0)
[2021-10-16] VITALS (15 sets, daily range): BP systolic 117–152; BP diastolic 65–78; PULSE 55–90; RESP 16–18; TEMP 36.8–37.1; O2SAT 92–96
[2021-10-16 00:53] LABS: Troponin-I HS 25 pg/mL (3.0-78.0)
[2021-10-16 01:16] LABS: Probe Check PASS; Specimen Processing Control PASS
[2021-10-16 04:43] LABS: Absolute Lymphocyte Count 2.09 X10^3/uL (0.83-4.51); Absolute Neutrophil Count 8.2 X10^3/uL (2.0-7.7); Basophil# 0.04 X10^3/uL; Basophil% 0.4 % (0-1); Eosinophil# 0.07 X10^3/uL; Eosinophils% 0.6 % (0-5); Hematocrit 38.5 % (40-54); Lymphocyte # 2.09 X10^3/ul (0.83-4.51); Lymphocyte % 18.5 % (19-41); Mean Corp Hgb Conc 33.8 g/dL (32-36); Mean Corpuscular Hgb 28.9 pg (27.0-32.0); Mean Corpuscular Volume 85.6 fL (80-94); Monocyte# 0.79 X10^3/uL; NRBC Flagged by Analyzer 0 % (0-5); Neutrophil # 8.24 X10^3/uL (2.7-7.7); Neutrophil % 73.1 % (47-70); Platelet Count 158 K/mm3 (150-450); RBC Distribution Width CV 14.9 % (11.6-14.6); RBC Distribution Width SD 46.5 fl (35.1-43.9); White Blood Count 11.3 K/mm3 (4.4-11.0)
[2021-10-16 05:15] LABS: Anion Gap 9 (5-15); BUN 19 mg/dL (7-18); BUN/Creat Ratio 17.8 RATIO (10-20); Calcium,Total 9.3 mg/dL (8.5-10.1); Chloride 102 mmol/L (98-107); Cholesterol 117 mg/dL (200); Creatinine, Serum 1.07 mg/dL (0.70-1.30); EST Glomerular Filtration Rate 70 mL/min (>60); Est Glom Filt Rate - Afr Amer 85 mL/min (>60); Estimated Creatinine Clearance 49.72 ml/min; Glucose 168 mg/dL (74-106); High Density Lipoprotein 42 mg/dL; Phosphorus 3.6 mg/dL (2.5-4.9); Potassium 3.9 mmol/L (3.5-5.1); Sodium Level 137 mmol/L (136-145); Triglycerides 170 mg/dL; Troponin-I HS 29 pg/mL (3.0-78.0); Very Low Density Lipoprotein 34 mg/dL (5-40)
--- NOTE | 2021-10-16 05:55 | ECHOCS_ITS ---
Reason For Study: SOB Procedure This was a 2D Doppler, Color Flow transthoracic echocardiogram. The study was technically difficult. Exam performed portable in patient room. Left Ventricle Normal LV size. The estimated ejection fraction is 55 %. Stage 2 diastolic dysfunction. septal HK likely related to prior open heart surgery. Right Ventricle Normal RV size. Normal systolic function. Atria Normal left atrium. Normal right atrium. No doppler evidence for ASD. Mitral Valve There is no mitral valve stenosis. Trivial mitral valve insufficiency. Tricuspid Valve There is no tricuspid stenosis. Trivial tricuspid valve insufficiency. Pulmonary artery systolic pressure is 55 mmHg. Aortic Valve There is no aortic stenosis. No aortic valve insufficiency. Bioprosthetic aortic valve. Pulmonic Valve There is no pulmonic valvular stenosis. No pulmonic valve insufficiency. Great Vessels Normal aortic root. Pericardium/Pleural No pericardial effusion. Medication Diluted definity 2ml given slow IV push to enhance endocardial definition. MMode/2D Measurements & Calculations LVIDd: 4.0 cm IVSd: 1.1 cm LVOT diam: 2.0 cm LVIDs: 3.0 cm LVPWd: 1.3 cm RVDd: 3.4 cm FS: 24.2 % LVOT area: 3.2 cm2 Ao root diam: 2.7 cm LAV(MOD-bp): 75.2 ml LVAd ap4: 33.9 cm2 LAV(MOD-bp) Indexed: 35.9 ml/m2 LVLd ap4: 8.4 cm LAV(MOD-sp2): 71.8 ml EDV(MOD-sp4): 109.5 ml LAV(MOD-sp4): 70.8 ml EDV(sp4-el): 116.5 ml LVAs ap4: 21.0 cm2 LVLs ap4: 7.0 cm ESV(MOD-sp4): 51.6 ml ESV(sp4-el): 54.1 ml EF(MOD-sp4): 52.9 % EF(sp4-el): 53.6 % LVAd ap2: 31.4 cm2 SV(MOD-sp4): 57.9 ml SV(MOD-sp2): 66.8 ml LVLd ap2: 7.8 cm EDV(MOD-sp2): 101.0 ml EDV(sp2-el): 107.6 ml LVAs ap2: 17.2 cm2 LVLs ap2: 7.3 cm ESV(MOD-sp2): 34.2 ml ESV(sp2-el): 34.5 ml EF(MOD-sp2): 66.2 % SV(sp4-el): 62.4 ml LA dimension(2D): 4.9 cm LA A4 area: 21.4 cm2 RA A4 area: 16.9 cm2 Doppler Measurements & Calculations MV E max len: 125.9 cm/sec Lat Peak E' Len: 13.6 cm/sec Med Peak E' Len: 5.6 cm/sec MV A max len: 102.3 cm/sec E/E' lat: 9.3 E/E' med: 22.4 MV E/A: 1.2 Ao V2 max: 255.1 cm/sec LV V1 max: 136.3 cm/sec SV(LVOT): 82.9 ml Ao max P.1 mmHg LV V1 max P.5 mmHg Ao V2 mean: 175.2 cm/sec LV V1 mean P.1 mmHg Ao mean P.8 mmHg LV V1 mean: 95.5 cm/sec Ao V2 VTI: 49.2 cm LV V1 VTI: 25.8 cm RAZA(I,D): 1.7 cm2 RAZA(V,D): 1.7 cm2 PA V2 max: 157.6 cm/sec TR max len: 356.4 cm/sec TR max P.9 mmHg ECHO/Echo Complete W/ Contrast Interpretation Summary The estimated ejection fraction is 55 %. Stage 2 diastolic dysfunction. Trivial mitral valve insufficiency. Pulmonary artery systolic pressure is 55 mmHg. Bioprosthetic aortic valve. Ordering Physician: Richie Noriega Referring Physician: Jeremi Morel M.D. Performed By: Divya Manzanares RDCS
[2021-10-16] MEDS: Insulin Lispro 100 UNIT/ML INSULN.PEN SC ×2 (06:34→11:25)
[2021-10-16 07:05] LABS: Bedside Glucose 173 mg/dL (70-110)
--- NOTE | 2021-10-16 07:41 | CT_ITS ---
STUDY: CTA CHEST REASON FOR EXAM: Male, 86 years old. Dyspnea RADIATION DOSAGE (If Supplied By Facility): CTDIvol = ( 11.92 ) mGy, DLP = ( 533.43 ) mGycm TECHNIQUE: The examination was performed with the intravenous administration of IV 100mL Isovue-370. Post-processing of the angiographic images was performed, with multiplanar reformation and 3D reconstruction. Individualized dose optimization techniques were used for this CT. COMPARISON: October 15, 2021 chest x-ray FINDINGS: Normal enhancement of the main pulmonary artery and right and left pulmonary arteries. Normal enhancement of the bilateral peripheral pulmonary arteries. There is no demonstrated pulmonary embolism. There is atherosclerotic tortuosity of the aortic arch and descending thoracic aorta. There is no demonstrated aortic dissection. There is mild cardiac enlargement. There is a cardiac valve replacement aortic valve. Sternotomy wires are seen midline. There is postoperative change in the heart. There is a pretracheal lymph node measuring 1.7 cm with a fatty center. There are small lymph nodes at the level of the trachea and the innominate. These measure approximately 1 cm. This calcifications of the subclavian. There is a right hilar lymph node measuring 1.9 cm. Normal visualized trachea and bronchi. There is a pattern of interstitial septal thickening in the right greater than left lung. Within the right upper lobe there is a smudgy nodular density measuring 1.0 x 1.2 cm there is a smudgy nodular density in the inferior aspect of the posterior right upper lobe. This is adjacent to a bronchial structure with wall thickening. There is a thickened appearance of the right greater than left peribronchial structures. There is focal fluid trapped in the right major fissure. There are small bilateral pleural effusions. There is minimal lower lobe atelectasis. There is fatty infiltration of the right shoulder musculature image #264 series 2. The bones are severely osteopenic. There is degenerative change multilevel spondylosis to space narrowing. There is a hiatal hernia measuring 34.7 x 3.5 cm. There is a thickened appearance of the diaphragm especially at the selvin of the diaphragm. CT/CTA Chest W/WO Contrast IMPRESSION: No pulmonary embolism. Mild to moderate cardiomegaly status post sternotomy , post aortic valve replacement. Right greater than left peribronchial thickening. Small smudgy nodular densities within the right upper lobe suspicious for inflammatory change consider atypical pneumonia potentially viral pneumonia. Consider respiratory bronchiolitis interstitial lung disease possible infectious lung disease, acute bronchitis given the foci of focal smudgy inflammatory infiltrates or densities in the right upper lobe could consider cryptogenic organizing pneumonia. Comment followed to clearing. There is also a pattern of interseptal thickening and effusions consider underlying pulmonary edema. Degenerative change of the thoracic spine. Small hiatal hernia. Electronically Signed: Barb Blake MD at 8:41 EST Tel , Service support ,
[2021-10-16] MEDS: Glimepiride 4 MG Tablet PO (09:21)
[2021-10-16] MEDS: amLODIPine 5 MG Tablet PO (09:21)
[2021-10-16] MEDS: APIXABAN 2.5 MG TABLET PO ×2 (09:21→21:40)
[2021-10-16] MEDS: busPIRone 5 MG Tablet 10 MG PO ×2 (09:21→21:42)
[2021-10-16] MEDS: Lisinopril 10 MG Tablet PO ×2 (09:21→21:43)
[2021-10-16] MEDS: Metoprolol Tartrate 25 MG Tablet 12.5 MG PO ×2 (09:22→21:41)
[2021-10-16] MEDS: Multivitamins,Ther W-Minerals Tablet 1 TABLET PO (09:22)
[2021-10-16] MEDS: Doxepin Hcl 25 MG Capsule 75 MG PO (09:22)
[2021-10-16] MEDS: 0.9% Saline Lock 10 ML Syringe IV ×3 (10:20→21:47)
[2021-10-16] MEDS: Furosemide 40 MG/4 ML Vial IV (10:20)
[2021-10-16 11:31] LABS: Bedside Glucose 229 mg/dL (70-110)
--- NOTE | 2021-10-16 12:40 | PN.HOSP_ITS ---
Documented by User: Deborah Mejia NP-C 10/16/21 12:49 Subjective Subjective Patient seen and examined. Patient sitting in bed no distress noted. Patient currently on room air however patient does report some subjective shortness of breath still. Objective Data Objective Data Vital Signs: Vital Signs Temp Pulse Resp BP Pulse Ox 98.7 F 90 18 146/65 H 94 10/16/21 09:15 10/16/21 09:22 10/16/21 09:15 10/16/21 09:15 10/16/21 09:15 Oxygen Delivery Method Room Air Weight: 212 lb 1.355 oz Body Mass Index (BMI) 32.2 Intake & Output: Intake and Output for Last 24 Hours 10/14/21 10/15/21 10/16/21 23:59 23:59 23:59 Intake Total 360 / 360 Output Total 800 / 800 1705 / 1705 Balance -800 / -800 -1345 / -1345 Lab / Micro Data Result Diagrams: 10/16/21 04:28 10/16/21 04:28 Labs: Laboratory Results - last 24 hr 10/15/21 18:15: WBC 11.8 H, RBC 4.51 L, Hgb 13.0, Hct 39.1 L, MCV 86.7, MCH 28.8, MCHC 33.2, RDW Std Deviation 47.2 H, RDW Coeff of Torie 14.7 H, Plt Count 143 L, MPV 10.4, Immature Gran % (Auto) 0.500, Neut % (Auto) 79.9 H, Lymph % ( Auto) 12.5 L, Durham % (Auto) 5.7, Eos % (Auto) 1.1, Baso % (Auto) 0.3, Absolute Neuts (auto) 9.4 H, Absolute Lymphs (auto) 1.48, Nucleated RBC % 0 10/15/21 18:15: Sodium 135 L, Potassium 4.3, Chloride 101, Carbon Dioxide 24.0, Anion Gap 10, BUN 25 H, Creatinine 1.09, Estim Creat Clear Calc 48.81, Est GFR (MDRD) Af Amer 83, Est GFR (MDRD) Non-Af 68, BUN/Creatinine Ratio 22.9 H, Glucose 191 H, Calcium 9.9, Troponin I High Sens 19 10/15/21 18:15: B-Natriuretic Peptide 160.6 H 12/03/21 22:33: Magnesium 2.1, Troponin I High Sens 24 10/15/21 22:42: POC Glucose 234 H 10/15/21 22:50: COVID-19 (ROXANNE) Negative 10/16/21 00:16: Troponin I High Sens 25 10/16/21 04:28: WBC 11.3 H, RBC 4.50 L, Hgb 13.0, Hct 38.5 L, MCV 85.6, MCH 28.9, MCHC 33.8, RDW Std Deviation 46.5 H, RDW Coeff of Torie 14.9 H, Plt Count 158, MPV 10.0, Immature Gran % (Auto) 0.400, Neut % (Auto) 73.1 H, Lymph % (Auto) 18.5 L, Durham % (Auto) 7.0, Eos % (Auto) 0.6, Baso % (Auto) 0.4, Absolute Neuts (auto) 8.2 H, Absolute Lymphs (auto) 2.09, Nucleated RBC % 0 10/16/21 04:28: Sodium 137, Potassium 3.9, Chloride 102, Carbon Dioxide 26.0, Anion Gap 9, BUN 19 H, Creatinine 1.07, Estim Creat Clear Calc 49.72, Est GFR (MDRD) Af Amer 85, Est GFR (MDRD) Non-Af 70, BUN/Creatinine Ratio 17.8, Glucose 168 H, Calcium 9.3, Phosphorus 3.6, Troponin I High Sens 29, Triglycerides 170, Cholesterol 117, LDL Cholesterol 41, VLDL Cholesterol 34, HDL Cholesterol 42, TSH 0.90 10/16/21 06:25: POC Glucose 173 H 10/16/21 11:23: POC Glucose 229 H Micro: Microbiology 10/15/21 18:25 Mucosa - Nose Influenza Types A,B Direct FA (REYMUNDO) - Final 10/15/21 18:11 Nasal Secretion SARS-CoV-2 Antigen (Rapid) - Final Radiography Diagnostic Testing: Radiology Impression Chest X-Ray 10/15/21 18:33 IMPRESSION: Right pleural effusion. Mild opacities in the right lung are suspicious for pneumonia. Electronically Signed: Helga Gates MD at 22:29 EST Tel , Service support , Chest CTA 10/16/21 07:41 IMPRESSION: No pulmonary embolism. Mild to moderate cardiomegaly status post sternotomy , post aortic valve replacement. Right greater than left peribronchial thickening. Small smudgy nodular densities within the right upper lobe suspicious for inflammatory change consider atypical pneumonia potentially viral pneumonia. Consider respiratory bronchiolitis interstitial lung disease possible infectious lung disease, acute bronchitis given the foci of focal smudgy inflammatory infiltrates or densities in the right upper lobe could consider cryptogenic organizing pneumonia. Comment followed to clearing. There is also a pattern of interseptal thickening and effusions consider underlying pulmonary edema. Degenerative change of the thoracic spine. Small hiatal hernia. Electronically Signed: Barb Blake MD at 8:41 EST Tel , Service support , Physical Exam Const alert, oriented x3 and no apparent distress HEENT head/scalp atraumatic Head and Scalp: normocephalic Eyes conjunctivae normal and no scleral icterus Neck full ROM, no lymphadenopathy and supple General: trachea midline Resp normal respiratory effort and clear to auscultation bilaterally Auscultation: crackles bilateral throughout Cardio regular rate, regular rhythm, S1 normal heart sound and S2 normal heart sound Heart Sounds: murmur Peripheral Pulses: pulses 2+ throughout GI normal to inspection, nondistended, normoactive bowel sounds, soft to palpation and non-tender Extremity normal to inspection, full ROM and no clubbing, cyanosis or edema Peripheral Pulses: Yes pulses 2+ throughout Skin no rashes or lesions noted, no wounds and skin turgor normal Neuro oriented x3, moves all extremities, no focal motor deficits and no sensory deficits noted Sensorium / Orientation: awake and alert Psych affect normal Assessment & Plan Assessment/Plan (1) Acute exacerbation of CHF (congestive heart failure): QUALIFIERS: Heart failure type: unspecified Qualified Code(s): I50.9 - Heart failure, unspecified (2) ALLEN (dyspnea on exertion): PLAN: Patient is a 86-year-old male who presented with dyspnea on exertion with a history of CHF. Patient admitted for observation, echo ordered. 1. CHF exacerbation -Patient currently on room air oxygen saturations 94 to 95%. -Continue IV Lasix -Echocardiogram ordered -Oxygen therapy ordered as needed -Continue intake and output 2. Hypertension -Continue home medication regimen including amlodipine, lisinopril. -Vital signs per protocol, currently stable 3. Diabetes mellitus type 2 -AC at bedtime blood sugars with sliding scale insulin ordered -Home dose insulin lispro continue 4. CAD -Patient has a history of CABG in 2019 5. Presence of bioprosthetic aortic valve -Continue Eliquis and metoprolol DVT prophylaxis-chronically anticoagulated This patient was seen by Deborah Mejia NP-C under the supervision of Dr. Ramirez. Documented by User: Dr. Clotilde Ramirez DO 10/16/21 16:14 Subjective Subjective This patient was can seen in conjunction with Deborah Mejia NP. The following is a representation of my independent history and physical examination. Please see below for addendum the above. The patient states he has had increasing shortness of breath since last week. He denies any cough or sputum production but does state that he has had some chills with no documented fever. He is stating he feels better today but not back to baseline. He is currently on room air. Objective Data Lab / Micro Data Result Diagrams: 10/16/21 04:28 10/16/21 04:28 Physical Exam Const alert, oriented x3 and no apparent distress Constitutional Narrative: Obese white older male sitting up in bed, appears comfortable and nontoxic Exam Limitations: no limitations Nutritional Appearance: obese HEENT head/scalp atraumatic and moist oral mucous membranes HEENT Narrative: Edentulous, no thrush, Mallampati 2 Head and Scalp: normocephalic Resp normal respiratory effort, no retractions, no use of accessory muscles and clear to auscultation bilaterally Resp Narrative: Diminished but clear Auscultation: Negative for crackles, rales, rhonchi or wheezes Cardio regular rate, regular rhythm, S1 normal heart sound, S2 normal heart sound, no rub, no gallops and no JVD; Negative for no murmurs or no clicks Cardio Narrative: Murmur with click noted GI normal to inspection, nondistended, normoactive bowel sounds, soft to palpation, non-tender and non-distended Extremity Extremity Narrative: Trace bilateral lower extremity edema with no cyanosis or clubbing Peripheral Pulses: Yes pulses 2+ throughout Neuro oriented x3, moves all extremities and no focal motor deficits Sensorium / Orientation: awake and alert Speech: speech normal Psych affect normal Assessment & Plan Assessment/Plan (1) ALLEN (dyspnea on exertion): (2) Leukocytosis: (3) Bronchiolitis: PLAN: Assessment: Dyspnea Leukocytosis 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 Bronchiolitis Hypertension DM-2 CAD History of aortic valve disease status post bioprosthetic valve Hyperlipidemia BPH Depression/anxiety Plan: -Upon review of chest x-ray and BNP I think it is likely that the patient is not having acute exacerbation of heart failure at this time as his BNP is markedly lower than it has been in the past -Stop IV Lasix and restart home dose of 40 mg daily -CTA of the chest was done given chronic dyspnea and demonstrates no PE bilateral peribronchial thickening right greater than left with nodular densities in the right upper lobe suspicious for inflammatory changes versus atypical pneumonia, small effusions, hiatal hernia -Add antibiotics to cover gram-negative organisms -Add Pep therapy -Add incentive spirometry -Add duo nebs -Continue full anticoagulation with apixaban 2.5 mg daily -Continue home medications for chronic medical issues -We will likely need pulmonary follow-up after discharge -Check a.m. ambulatory pulse oximetry Charges/Coding Visit Charges Inpatient E&M: 01353 Subs Hosp L2
--- NOTE | 2021-10-16 16:40 | CASEMGMT ---
RN CM OBSERVER GRAVITY [employer]OSPECTING CM to room to meet with patient for initial transition planning/care coordination assessment. RN KIERA introduced self and role at [facility]. Pt voices understanding and consents to assessment at this time. Pt resting in bed in no distress at this time. Pt is A/O at this time and answers all questions appropriately. Care providers, pharmacy, and demographics verified/updated at this time. PCP: Dr Morel Specialists: Dr Lo-endocrinology, Dr Garcia-podiatry Preferred [facility]acy: [facility] Insurance: [employer] Prescription Benefit: Yes Living Will/HPOA: Has LW and HPOA, who is his daughter, Josie. LNOK: Dtr, Josie Living Arrangements: Lives alone in one-story apt/condo w/no steps to enter. Independent w/ADL's. Dtr does his laundry. Brother gets groceries and pt also gets MOW. Transportation: Pt states drives self and states no transportation concerns at this time. Dtr will take him home @ d/c DME: States has the following DME: walker, rollator, functioning glucometer w/supplies. No home O2. Reviewed list of local DME companies if O2 is needed @ d/c. Pt states no preference and agreeable to [employer]. Pt states no need for further DME at this time. HHC/SNF: [facility]--does not remember name of agency. Pt is active w[facility]. Message sent to Ken @ [facility] to notify her of pt's admission. Pt wishes to return home and states has no concerns with going home at time of discharge. He does not want HHC. Pt voices no further concerns/needs at this time. Advised pt to ask for CM if any further questions/concerns/needs arise. Voices understanding. PEPPER form explained re: Observation status for treatment of CHF exacerbation. Explained hospitalization will be paid per his insurance policy for Outpatient billing and condition will continue to be evaluated for Inpt necessity. Also let pt know that [facility] sends paper in the billing packet with their phone number if questions arise. Discussed Pharmacy section of PEPPER form and self administered medication guideline. Pt verbalizes understanding and does not have further questions. Form signed, copy made and placed in chart, and original given to pt. PLAN: Home. Follow for any home O2 needs @ d/c. Brandon DUVALL RN CM
[2021-10-16] MEDS: Tamsulosin HCl 0.4 MG Capsule PO (17:14)
[2021-10-16 17:20] LABS: Bedside Glucose 139 mg/dL (70-110)
[2021-10-16] MEDS: Ipratropium/Albuterol Sulfate 3 ML AMPUL.NEB INHALATION (19:25)
[2021-10-16 19:32] LABS: M R Staph aureus DNA By PCR Negative (Negative); Probe Check PASS; Specimen Processing Control PASS
[2021-10-16] MEDS: MELATONIN 10 MG TABLET 5 MG PO (21:42)
[2021-10-16] MEDS: Atorvastatin Calcium 40 MG Tablet PO (21:43)
[2021-10-16 22:51] LABS: Bedside Glucose 89 mg/dL (70-110)
[2021-10-17] VITALS (8 sets, daily range): BP systolic 108–126; BP diastolic 60–71; PULSE 73–84; RESP 18–20; TEMP 36.8–37; O2SAT 87–97
[2021-10-17] MEDS: Ipratropium/Albuterol Sulfate 3 ML AMPUL.NEB INHALATION (01:27)
[2021-10-17 06:40] LABS: Bedside Glucose 174 mg/dL (70-110)
[2021-10-17 06:45] LABS: Absolute Lymphocyte Count 2.05 X10^3/uL (0.83-4.51); Absolute Neutrophil Count 6.2 X10^3/uL (2.0-7.7); Basophil# 0.05 X10^3/uL; Basophil% 0.5 % (0-1); Eosinophil# 0.21 X10^3/uL; Eosinophils% 2.2 % (0-5); Hemoglobin 12.2 g/dL (13.0-16.5); Lymphocyte # 2.05 X10^3/ul (0.83-4.51); Lymphocyte % 21.7 % (19-41); Mean Corpuscular Hgb 28.5 pg (27.0-32.0); Mean Corpuscular Volume 86.4 fL (80-94); Mean Platelet Vol. 11.1 fl (6.2-12.0); Monocyte# 0.85 X10^3/uL; NRBC Flagged by Analyzer 0 % (0-5); Neutrophil # 6.23 X10^3/uL (2.7-7.7); Neutrophil % 66.2 % (47-70); Platelet Count 165 K/mm3 (150-450); RBC Distribution Width CV 15.2 % (11.6-14.6); RBC Distribution Width SD 48.5 fl (35.1-43.9); Red Blood Count 4.28 M/mm3 (4.6-6.2); White Blood Count 9.4 K/mm3 (4.4-11.0)
[2021-10-17 07:17] LABS: ALB/GLOB Ratio 0.9 RATIO (0.9-2.4); AST(SGOT) 57 U/L (15-37); Alanine Aminotransfer ALT/SGPT 30 U/L (16-61); Albumin, Serum 3.4 g/dL (3.2-5.0); Alkaline Phosphatase 73 U/L (45-117); Anion Gap 9 (5-15); BUN 23 mg/dL (7-18); BUN/Creat Ratio 20.2 RATIO (10-20); Calcium,Total 9.3 mg/dL (8.5-10.1); Chloride 104 mmol/L (98-107); Creatinine, Serum 1.14 mg/dL (0.70-1.30); EST Glomerular Filtration Rate 65 mL/min (>60); Est Glom Filt Rate - Afr Amer 79 mL/min (>60); Estimated Creatinine Clearance 46.67 ml/min; Globulin 3.9 g/dL (2.2-4.2); Glucose 155 mg/dL (74-106); Potassium 3.5 mmol/L (3.5-5.1); Protein, Total 7.3 g/dL (6.4-8.2); Sodium Level 139 mmol/L (136-145)
[2021-10-17] MEDS: Multivitamins,Ther W-Minerals Tablet 1 TABLET PO (07:59)
[2021-10-17] MEDS: busPIRone 5 MG Tablet 10 MG PO (07:59)
[2021-10-17] MEDS: Lisinopril 10 MG Tablet PO (08:00)
[2021-10-17] MEDS: APIXABAN 2.5 MG TABLET PO (08:00)
[2021-10-17] MEDS: amLODIPine 5 MG Tablet PO (08:00)
[2021-10-17] MEDS: Doxepin Hcl 25 MG Capsule 75 MG PO (08:00)
[2021-10-17] MEDS: Glimepiride 4 MG Tablet PO (08:00)
--- NOTE | 2021-10-17 09:19 | PCM.DC ---
Discharge Instructions Diet Discharge Diet: Low fat / Low cholesterol and 1800 Calorie Control Diet Activity Discharge Activity: Return to Normal Activity Dressing / Incision Call your doctor if you observe: Fever of 101 or Higher, Shortness of breath and Chest pain Follow Up Care Test Results: Test results from this visit will be discussed in further detail at your follow-up appointment, if applicable. Discharge Plan Admission Admit Date/Time: 10/15/21 21:56 Primary Reason for Your Visit: Shortness of Breath Attending Provider: Clotilde Ramirez Primary Care Provider: Jeremi Morel Discharge Orders/Prescriptions Prescriptions: New levofloxacin 750 mg tablet 750 mg PO DAILY Qty: 6 RF: 0 Continued Melatonin 3 MG tablet 5 mg PO QHS RF: 0 doxepin 75 mg capsule 75 mg PO DAILY RF: 0 buspirone 10 MG tablet 10 mg PO BID RF: 0 vitamins A,C,O-oodx-creyhc 1 EACH capsule 1 cap PO BID RF: 0 Iron 65 mg PO BID RF: 0 isrqpard-ijc-DR-lycopen-lutein 1 EACH tablet 1 tab PO DAILY RF: 0 tamsulosin 0.4 MG capsule 0.4 mg PO DAILY@1730 Qty: 30 RF: 0 furosemide [Lasix] 40 mg tablet 40 mg PO DAILY Qty: 90 RF: 3 atorvastatin 40 mg tablet 40 mg PO DAILY Qty: 90 RF: 3 metoprolol tartrate 25 mg tablet 12.5 mg PO BID Qty: 90 RF: 3 apixaban 2.5 mg tablet 2.5 mg PO BID Qty: 60 RF: 11 lisinopril 20 mg tablet 20 mg PO BID Qty: 180 RF: 3 Humalog Mix 50-50 KwikPen 100 unit/mL (50-50) insulin pen 35 unit SC BID Qty: 21 RF: 3 amlodipine 10 mg tablet 10 mg PO DAILY Qty: 90 RF: 3 glimepiride 4 mg tablet 4 mg PO DAILY Qty: 30 RF: 6 Referrals / Follow Up: Aston Barker DO [STAFF PHYSICIAN] - Within 1 Month (4-[address]) Jeremi Morel MD [Primary Care Provider] - Within 2 Weeks Disposition Disposition (needs filled in before D/C Order can be placed): Home, Self Care
--- NOTE | 2021-10-17 09:24 | DS.PCM_ITS ---
Documented by User: JAYSHREE Frye 10/17/21 09:36 Providers Date of Admission: 10/15/21 Primary Care Physician: Dr. Jeremi Morel MD Reason For Visit: CHF EXACERBATION Diagnosis Discharge Diagnosis (1) ALLEN (dyspnea on exertion): Status: Acute Code(s): R06.00 - Dyspnea, unspecified (2) Leukocytosis: Status: Acute Code(s): D72.829 - Elevated white blood cell count, unspecified (3) Bronchiolitis: Status: Acute Code(s): J21.9 - Acute bronchiolitis, unspecified Medications at Discharge Home Medications buspirone 10 mg PO BID 03/07/19 vitamins A,C,Z-gppn-wjisgw 1 cap PO BID 03/07/19 uyfowdlx-byj-AE-lycopen-lutein 1 tab PO DAILY 10/25/19 tamsulosin 0.4 mg PO DAILY@1730 #30 cap 11/05/19 Melatonin 5 mg PO QHS tab 05/18/20 furosemide 40 mg tablet 40 mg PO DAILY #90 tab 11/19/20 doxepin 75 mg capsule 75 mg PO DAILY cap 01/05/21 Iron 65 mg PO BID 01/15/21 atorvastatin 40 mg tablet 40 mg PO DAILY #90 tab 04/30/21 metoprolol tartrate 25 mg tablet 12.5 mg PO BID #90 tab 04/30/21 apixaban 2.5 mg tablet 2.5 mg PO BID #60 tab 06/03/21 insulin lispro protamine-lispro 100 unit/mL (50-50) subcutaneous pen 35 unit SC BID #21 ml 06/03/21 lisinopril 20 mg tablet 20 mg PO BID #180 tab 06/03/21 amlodipine 10 mg tablet 10 mg PO DAILY #90 tab 08/02/21 glimepiride 4 mg tablet 4 mg PO DAILY #30 tab 08/24/21 levofloxacin 750 mg PO DAILY #6 tab 10/17/21 Hospital Course Operations None Procedures 2-D Echocardiogram and EKG Summary of Care Provided Minutes Spent on Discharge: 20 Hospital Course: Patient Is an 86-year-old male who initially presented to the ER 2 days ago with complaints of increased shortness of breath. Patient was initially thought to be in CHF exacerbation however BNP was only mildly elevated and patient was on room air. CTA was obtained which showed findings suspicious for chronic inflammatory changes versus infectious lung disease. 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 Patient was discussed with Dr. Barker and patient will follow up with him outpatient in 4 to 6 weeks for repeat CTA. Will be discharged home on p.o. Levaquin and was instructed to continue to use incentive spirometry as well as Pep therapy at home. Physical Exam Const alert, oriented x3 and no apparent distress Exam Limitations: no limitations Nutritional Appearance: obese HEENT head/scalp atraumatic and moist oral mucous membranes Eyes conjunctivae normal and no scleral icterus Neck full ROM, no lymphadenopathy and supple General: trachea midline Resp normal respiratory effort, no retractions, no use of accessory muscles and clear to auscultation bilaterally Auscultation: Negative for crackles, rales, rhonchi or wheezes Cardio regular rate, regular rhythm, S1 normal heart sound, S2 normal heart sound, no rub, no gallops and no JVD; Negative for no murmurs or no clicks Heart Sounds: murmur Peripheral Pulses: pulses 2+ throughout GI normal to inspection, nondistended, normoactive bowel sounds, soft to palpation, non-tender and non-distended Extremity normal to inspection, full ROM and no clubbing, cyanosis or edema Skin no rashes or lesions noted, no wounds and skin turgor normal Neuro oriented x3, moves all extremities, no focal motor deficits and no sensory deficits noted Sensorium / Orientation: awake and alert Speech: speech normal Psych affect normal Weight / BMI Weight Weight: 206 lb 2.115 oz Body Mass Index (BMI) 32.2 ABG / Lab / Microbiology Data Result Diagrams: 10/17/21 05:05 10/17/21 05:05 Laboratory: Laboratory Results - last 24 hr 10/16/21 11:23: POC Glucose 229 H 10/16/21 14:30: MRSA (PCR) Negative 10/16/21 17:11: POC Glucose 139 H 10/16/21 21:37: POC Glucose 89 10/17/21 05:05: WBC 9.4, RBC 4.28 L, Hgb 12.2 L, Hct 37.0 L, MCV 86.4, MCH 28.5, MCHC 33.0, RDW Std Deviation 48.5 H, RDW Coeff of Torie 15.2 H, Plt Count 165, MPV 11.1, Immature Gran % (Auto) 0.400, Neut % (Auto) 66.2, Lymph % (Auto) 21.7, Lawrence % (Auto) 9.0, Eos % (Auto) 2.2, Baso % (Auto) 0.5, Absolute Neuts (auto) 6.2, Absolute Lymphs (auto) 2.05, Nucleated RBC % 0 10/17/21 05:05: Sodium 139, Potassium 3.5, Chloride 104, Carbon Dioxide 26.0, Anion Gap 9, BUN 23 H, Creatinine 1.14, Estim Creat Clear Calc 46.67, Est GFR (MDRD) Af Amer 79, Est GFR (MDRD) Non-Af 65, BUN/Creatinine Ratio 20.2 H, Glucose 155 H, Calcium 9.3, Total Bilirubin 0.90, AST 57 H, ALT 30, Alkaline Phosphatase 73, Total Protein 7.3, Albumin 3.4, Globulin 3.9, Albumin/Globulin Ratio 0.9 10/17/21 06:31: POC Glucose 174 H Microbiology: Microbiology 10/16/21 08:30 Mucosa - Nasopharyngeal Respiratory Panel (PCR) - Final 10/15/21 18:25 Mucosa - Nose Influenza Types A,B Direct FA (REYMUNDO) - Final 10/15/21 18:11 Nasal Secretion SARS-CoV-2 Antigen (Rapid) - Final Radiography Diagnostic Testing: Radiology Impression Echocardiogram 10/16/21 05:55 Interpretation Summary The estimated ejection fraction is 55 %. Stage 2 diastolic dysfunction. Trivial mitral valve insufficiency. Pulmonary artery systolic pressure is 55 mmHg. Bioprosthetic aortic valve. Ordering Physician: Richie Noriega Referring Physician: Jeremi Morel M.D. Performed By: Divya Manzanares RDCS D/C Instructions Discharge Diet: Low fat / Low cholesterol and 1800 Calorie Control Diet Call your doctor if you observe: Fever of 101 or Higher, Shortness of breath and Chest pain Meaningful Use Info Meaningful Use Diagnoses (Choose all that apply): None applicable Discharge Plan Admission Admit Date/Time: 10/15/21 21:56 Primary Reason for Your Visit: Shortness of Breath Attending Provider: Clotilde Ramirez Primary Care Provider: Jeremi Morel Instructions Additional Instructions / Restrictions: 1. Please continue to use incentive spirometer and Acapella daily Discharge Orders/Prescriptions Prescriptions: New levofloxacin 750 mg tablet 750 mg PO DAILY Qty: 6 RF: 0 Continued Melatonin 3 MG tablet 5 mg PO QHS RF: 0 doxepin 75 mg capsule 75 mg PO DAILY RF: 0 buspirone 10 MG tablet 10 mg PO BID RF: 0 vitamins A,C,V-dked-rrpcky 1 EACH capsule 1 cap PO BID RF: 0 Iron 65 mg PO BID RF: 0 jwssehdh-hsf-UD-lycopen-lutein 1 EACH tablet 1 tab PO DAILY RF: 0 tamsulosin 0.4 MG capsule 0.4 mg PO DAILY@1730 Qty: 30 RF: 0 furosemide [Lasix] 40 mg tablet 40 mg PO DAILY Qty: 90 RF: 3 atorvastatin 40 mg tablet 40 mg PO DAILY Qty: 90 RF: 3 metoprolol tartrate 25 mg tablet 12.5 mg PO BID Qty: 90 RF: 3 apixaban 2.5 mg tablet 2.5 mg PO BID Qty: 60 RF: 11 lisinopril 20 mg tablet 20 mg PO BID Qty: 180 RF: 3 Humalog Mix 50-50 KwikPen 100 unit/mL (50-50) insulin pen 35 unit SC BID Qty: 21 RF: 3 amlodipine 10 mg tablet 10 mg PO DAILY Qty: 90 RF: 3 glimepiride 4 mg tablet 4 mg PO DAILY Qty: 30 RF: 6 Referrals / Follow Up: Aston Barker DO [STAFF PHYSICIAN] - Within 1 Month (4-[address]) Jeremi Morel MD [Primary Care Provider] - Within 2 Weeks Disposition Disposition (needs filled in before D/C Order can be placed): Home, Self Care Documented by User: Dr. Clotilde Ramirez DO 10/17/21 10:13 Providers Date of Admission: 10/15/21 Reason For Visit: CHF EXACERBATION Medications at Discharge Home Medications buspirone 10 mg PO BID 03/07/19 vitamins A,C,P-sbpk-zvqjkt 1 cap PO BID 03/07/19 mvvpsgtp-vqd-ML-lycopen-lutein 1 tab PO DAILY 10/25/19 tamsulosin 0.4 mg PO DAILY@1730 #30 cap 11/05/19 Melatonin 5 mg PO QHS tab 05/18/20 furosemide 40 mg tablet 40 mg PO DAILY #90 tab 11/19/20 doxepin 75 mg capsule 75 mg PO DAILY cap 01/05/21 Iron 65 mg PO BID 01/15/21 atorvastatin 40 mg tablet 40 mg PO DAILY #90 tab 04/30/21 metoprolol tartrate 25 mg tablet 12.5 mg PO BID #90 tab 04/30/21 apixaban 2.5 mg tablet 2.5 mg PO BID #60 tab 06/03/21 insulin lispro protamine-lispro 100 unit/mL (50-50) subcutaneous pen 35 unit SC BID #21 ml 06/03/21 lisinopril 20 mg tablet 20 mg PO BID #180 tab 06/03/21 amlodipine 10 mg tablet 10 mg PO DAILY #90 tab 08/02/21 glimepiride 4 mg tablet 4 mg PO DAILY #30 tab 08/24/21 levofloxacin 750 mg PO DAILY #6 tab 10/17/21 Hospital Course Operations None Procedures 2-D Echocardiogram Summary of Care Provided Minutes Spent on Discharge: 36 Hospital Course: This patient was seen in conjunction with Deborah Canseco NP. The following is a representation my independent history and physical examination. Please see below for any known the above. Mr. Lucio is an 86-year-old white male who presented to the emergency department [facility] on 10/15/2021 with a chief complaint of shortness of breath. On admission he reported that the symptoms started approximately 4 days prior to presentation and he complained of dyspnea with exertion most notably walking down the driveway to his mailbox. He denied any chest pressure or tightness that was associated and had no coughing or sputum production. He denied any recent upper respiratory symptoms, fever but did complain of some intermittent chills. He denied any change in body weight or leg swelling. Rapid Covid test was negative his BNP was slightly elevated at 160 and initially it was felt that he might be having an acute exacerbation of diastolic heart failure however on further review of his case this seems less likely and a CT of his chest was performed. His CTA showed no pulmonary embolism and showed only mild bilateral pleural effusions but did demonstrate left peribronchial thickening and nodular densities that were suspicious for inflammatory changes versus spiculated nodules. Given these findings, his shortness of breath, and his mild leukocytosis with chills he was started on antibiotics. An echocardiogram was performed and showed a stable EF at 55% with stage II diastolic dysfunction, trivial mitral valve insufficiency and pulmonary artery systolic pressure at 55 mmHg. I did review the CAT scan with pulmonology and they agreed with treating him with antibiotics and would follow him up in 4 to [address] of his chest to assess for improvement and consideration for bronchoscopy if not improved. In addition to his antibiotics he was also treated with incentive spirometer and Acapella to improve pulmonary toileting. On 10/17/2021 the patient reported that he was feeling much better overall and was anxious to go home. He remained on room air at rest throughout his hospitalization but was tested with ambulation prior to discharge and did de sat to 87% on room air therefore was placed on 1 to 2 L of nasal cannula with improvement to his oxygen saturation to 94%. He was therefore discharged home with home oxygen to be utilized with exertion. He is to follow-up with his primary care physician in 1 to 2 weeks and will follow up with pulmonology in 4 to 6 weeks as noted above. Antibiotics were sent to his pharmacy for 6 more days to complete a 7-day course. He was discharged home on 10/17/2021 in stable condition. 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 Hyperlipidemia BPH Depression Anxiety Physical Exam Const alert, oriented x3, no apparent distress and well nourished Constitutional Narrative: Elderly white male sitting up in a chair at the bedside, appears comfortable, nontoxic, reports he is feeling much better since admission General Appearance: cooperative and well developed Exam Limitations: no limitations Nutritional Appearance: obese HEENT normocephalic, head/scalp atraumatic and moist oral mucous membranes HEENT Narrative: Edentulous, no thrush, Mallampati 2 Eyes PERRL, EOMs intact bilaterally, conjunctivae normal and no scleral icterus Eyes Narrative: No conjunctival pallor or scleral icterus Neck full ROM, no lymphadenopathy, supple, no JVD and thyroid normal General: trachea midline Resp normal respiratory effort, normal air movement, no retractions, no use of accessory muscles and clear to auscultation bilaterally Auscultation: Negative for crackles, rales, rhonchi or wheezes Cardio regular rate, regular rhythm, S1 normal heart sound, S2 normal heart sound, no rub, no gallops and no JVD; Negative for no murmurs or no clicks Cardio Narrative: 3 out of 6 systolic murmur with click Heart Sounds: murmur Peripheral Pulses: pulses 2+ throughout GI normal to inspection, nondistended, normoactive bowel sounds, soft to palpation, non-tender and non-distended Extremity normal to inspection, full ROM, normal capillary refill and no clubbing, cyanosis or edema General Extremity: no tenderness to palpation of joints or extremities Skin no rashes or lesions noted, no wounds and skin turgor normal Skin Narrative: Scabbed over region on pretibial area right leg General Skin Exam: no breakdown Rashes: no rashes Neuro oriented x3, CN's II-XII intact bilaterally, moves all extremities, no focal motor deficits and no sensory deficits noted Sensorium / Orientation: awake and alert Speech: speech normal Psych affect normal Appearance: appropriate ABG / Lab / Microbiology Data Result Diagrams: 10/17/21 05:05 10/17/21 05:05 Discharge Plan Admission Admit Date/Time: 10/15/21 21:56 Primary Reason for Your Visit: Shortness of Breath Attending Provider: Clotilde Ramirez Primary Care Provider: Jeremi Morel Instructions Additional Instructions / Restrictions: 1. Please continue to use incentive spirometer and Acapella daily Discharge Orders/Prescriptions Prescriptions: New levofloxacin 750 mg tablet 750 mg PO DAILY Qty: 6 RF: 0 Continued Melatonin 3 MG tablet 5 mg PO QHS RF: 0 doxepin 75 mg capsule 75 mg PO DAILY RF: 0 buspirone 10 MG tablet 10 mg PO BID RF: 0 vitamins A,C,E-agbd-wfhacn 1 EACH capsule 1 cap PO BID RF: 0 Iron 65 mg PO BID RF: 0 vsdjwcfq-iko-JN-lycopen-lutein 1 EACH tablet 1 tab PO DAILY RF: 0 tamsulosin 0.4 MG capsule 0.4 mg PO DAILY@1730 Qty: 30 RF: 0 furosemide [Lasix] 40 mg tablet 40 mg PO DAILY Qty: 90 RF: 3 atorvastatin 40 mg tablet 40 mg PO DAILY Qty: 90 RF: 3 metoprolol tartrate 25 mg tablet 12.5 mg PO BID Qty: 90 RF: 3 apixaban 2.5 mg tablet 2.5 mg PO BID Qty: 60 RF: 11 lisinopril 20 mg tablet 20 mg PO BID Qty: 180 RF: 3 Humalog Mix 50-50 KwikPen 100 unit/mL (50-50) insulin pen 35 unit SC BID Qty: 21 RF: 3 amlodipine 10 mg tablet 10 mg PO DAILY Qty: 90 RF: 3 glimepiride 4 mg tablet 4 mg PO DAILY Qty: 30 RF: 6 Referrals / Follow Up: Aston Barker DO [STAFF PHYSICIAN] - Within 1 Month (4-[address]) Jeremi Morel MD [Primary Care Provider] - Within 2 Weeks Disposition Disposition (needs filled in before D/C Order can be placed): Home, Self Care Charges/Coding Visit Charges Inpatient E&M: 74911 Disch Hosp
[2021-10-17] MEDS: Metoprolol Tartrate 25 MG Tablet 12.5 MG PO (09:35)
[2021-10-17] MEDS: Furosemide 40 MG Tablet PO (09:35)
--- NOTE | 2021-10-21 13:06 | CASEMGMT ---
Call from [facility] and per Cindy, pt is refusing home oxygen and states has not been wearing it at home. Per [facility], pt will sign out AMA from home oxygen service. Ned MAURICE CM
== END 2021-10-17 09:23 | disposition home or self-care (01) ==
LOC: ED 21:25 → PCU 21:29
PROVIDERS: Nurse Practitioner Family; Admitting Provider Internal Medicine; Emergency Provider Emergency Medicine; PCP Internal Medicine; Visit Provider Internal Medicine
DX: J21.9 Acute bronchiolitis, unspecified (principal); E11.22 Type 2 diabetes mellitus with diabetic chronic kidney disease; I25.10 Atherosclerotic heart disease of native coronary artery without angina pectoris; I48.0 Paroxysmal atrial fibrillation; I13.0 Hypertensive heart and chronic kidney disease with heart failure and stage 1 through stage 4 chronic kidney disease, or unspecified chronic kidney disease; I50.33 Acute on chronic diastolic (congestive) heart failure; N40.0 Benign prostatic hyperplasia without lower urinary tract symptoms; F41.9 Anxiety disorder, unspecified; F32.A Depression, unspecified; N18.31 Chronic kidney disease, stage 3a; E78.5 Hyperlipidemia, unspecified; D50.9 Iron deficiency anemia, unspecified; E66.9 Obesity, unspecified; I27.21 Secondary pulmonary arterial hypertension; Z79.4 Long term (current) use of insulin; Z79.899 Other long term (current) drug therapy; Z79.01 Long term (current) use of anticoagulants; Z87.891 Personal history of nicotine dependence; Z95.1 Presence of aortocoronary bypass graft; Z95.2 Presence of prosthetic heart valve; Z68.32 Body mass index [BMI] 32.0-32.9, adult
CPT/HCPCS: 36415; 71045; 71275; 80048; 80053; 80061; 82962; 83735; 83880; 84100; 84443; 84484; 85025; 87070; 87205; 87426; 87633; 87635; 87641; 87804; 93005; 93306; 94640; 94667; 96365; 96366; 96375; 96376; 97161; 97165; 99218; 99251; 99285; J7050; Q9957; Q9967; U0005; A4216; C8929; G0378; G0463; J1940; J3490; U0003

== ENCOUNTER 2023-01-12 19:49 | Emergency (ER) | payer MEDICARE, SELFPAY ==
[2023-01-12 19:49] VITALS: BP 147/66; PULSE 93; RESP 16; TEMP 36.8; O2SAT 97; BMI 30.7
[2023-01-12 20:11] LABS: Bacteria 0 SEEN /hpf (None Seen); Mucous, Urine 0 SEEN /hpf (<or=2+); Red Blood Cells-Urine 0 SEEN /hpf (0-5); Squamous Epithelial Cells - UA 0 SEEN /hpf (0-5); White Blood Cells 0 SEEN /hpf (0-5)
[2023-01-12 20:13] LABS: Color, Urine Yellow (Yellow); Glucose, Dipstick Normal (Normal); Ketone-Dipstick Negative (Negative); Leukocyte Esterase-Dipstick 25 /ul (Negative); Nitrite-Dipstick Negative (Negative); Occult Blood-Urine Negative /ul (Negative); Protein-Dipstick 30 mg/dl (Negative); Urine Bilirubin Dipstick Negative (Negative); Urine Clarity Clear (Clear); Urine Urobilinogen Normal (Normal)
[2023-01-12 22:01] LABS: Bedside Glucose 175 mg/dL (74-106)
--- NOTE | 2023-01-12 22:19 | EDS_ITS ---
HPI History of Present Illness Chief Complaint: General Illness Narrative Narrative: 87-year-old male presenting with symptoms of a cold for the last 2 weeks. He states that his symptoms are congestion which is mainly nasal congestion. He has a mild cough but he does not feel short of breath more than usual. He denies chest pain. He does admit to urinary frequency today. He took Lasix this morning and urinated a lot today. He denies dysuria or hematuria. He has not had a fever at home. [facility] Medical History Abnormal LFTs Abrasions of multiple sites Acute on chronic renal failure Anxiety and depression Atherosclerosis of coronary artery of [place] heart without angina pectoris BPH (benign prostatic hyperplasia) Bradycardia Carotid artery bruit Chronic diastolic (congestive) heart failure Chronic kidney disease Chronic renal failure, stage 2 (mild) Dehydration Diabetes Elevated LFTs Essential (primary) hypertension Fall Frequent falls Hyperkalemia Hyperlipidemia Hypoglycemia associated with type 2 diabetes mellitus Hyponatremia Iron deficiency anemia Left bundle branch block Near syncope Near syncope Non-rheumatic aortic stenosis Obesity Obesity Paroxysmal atrial fibrillation Physical debility Pleural effusion on left Postoperative atrial fibrillation (01/01/19) Secondary pulmonary arterial hypertension Significant closed head trauma within past 3 months Stenosis of right subclavian artery Stenosis of right subclavian artery Thrombocytopenia Thyroid nodule Type 2 diabetes mellitus Vitamin D deficiency Home Medications buspirone 10 mg tablet 10 mg PO BID mood 03/07/19 [History Last Taken 10/25/19] vitamins A,C,O-ggfg-mxykyk 4,296 mcg-226 mg-90 mg capsule 1 cap PO BID EYE HEALTH 03/07/19 [History Last Taken 10/25/19] wtpulmxd-pze-nelro acid 300 mcg-lycopene 600 mcg-lutein 300 mcg tablet 1 tab PO DAILY supplement 10/25/19 [History Last Taken 10/25/19] tamsulosin 0.4 mg capsule 0.4 mg PO DAILY@1730 diuretic #30 caps 11/05/19 [Rx Last Taken Unknown] Melatonin 5 mg PO QHS 05/18/20 [History Last Taken Unknown] doxepin 75 mg capsule 75 mg PO DAILY 01/05/21 [History Last Taken Unknown] Iron 65 mg PO BID 01/15/21 [History Last Taken Unknown] levofloxacin 750 mg tablet 750 mg PO DAILY #6 tabs 10/17/21 [Rx Last Taken Unknown] apixaban 2.5 mg tablet 2.5 mg PO BID anticoagulant #60 tabs 05/24/22 [Rx Last Taken Unknown] atorvastatin 40 mg tablet 40 mg PO DAILY antihyperlipidemics #90 tabs 05/24/22 [Rx Last Taken Unknown] metoprolol tartrate 25 mg tablet 12.5 mg PO BID high blood pressure #90 tabs 05/26/22 [Rx Last Taken Unknown] amlodipine 10 mg tablet 10 mg PO DAILY #90 tabs 06/16/22 [Rx Last Taken Unknown] lisinopril 20 mg tablet 20 mg PO BID this is a dose increase #180 tabs 06/16/22 [Rx Last Taken Unknown] glimepiride 4 mg tablet 4 mg PO DAILY #30 tabs 09/12/22 [Rx Last Taken Unknown] insulin lispro protamine-lispro 100 unit/mL (50-50) subcutaneous pen (Humalog Mix 50-50 KwikPen) 35 unit (0.35 mL) subcut BID #21 mL 09/12/22 [Rx Last Taken Unknown] furosemide 40 mg tablet (Lasix) 40 mg PO DAILY #90 tabs 01/12/23 [Rx Last Taken Unknown] Allergy/AdvReac Type Severity Reaction Status Date / Time No Known Allergies Allergy Verified 01/12/23 19:51 Family History Father CVA (cerebral vascular accident) Mother COPD (chronic obstructive pulmonary disease) Surgical History H/O aortic valve replacement (01/01/19) H/O coronary artery bypass surgery (01/01/19) History of cataract surgery History of hip replacement History of left heart catheterization (10/31/18) History of open reduction and internal fixation (ORIF) procedure History of thoracentesis (01/05/19) Social History Smoking Status: Former smoker quit date: 11/13/03 how long ago did patient quit smoking: cigars ROS ROS ED Review of Systems ROS Unobtainable: Denies due to encephalopathy Constitutional Constitutional ED: Denies fever(s) Eyes Eyes: Denies change in vision or diplopia ENT ENT ED: Reports rhinorrhea; Denies sore throat Cardiovascular Cardiovascular: Denies chest pain or palpitations Respiratory/Chest Respiratory/Chest: Reports cough; Denies dyspnea Gastrointestinal Gastrointestinal: Denies abdominal pain or constipation Genitourinary Genitourinary ED: Denies dysuria or hematuria Musculoskeletal Musculoskeletal: Denies arthralgias Integumentary Denies abscess or Abrasions Neurologic Neurologic: Denies headache(s) or paresthesias Psychiatric Psychiatric: Denies anxiety or depression EXAM Physical Exam Const Vital Signs: 01/12/23 19:49 01/12/23 21:39 Temperature 98.3 F Temperature Source Temporal Pulse Rate 93 Respiratory Rate 16 Respiratory Effort Normal Respiratory Pattern Normal Blood Pressure 147/66 H Blood Pressure Mean 93 Pulse Ox 97 Oxygen Delivery Method Room Air Positive well nourished General Appearance ED: NAD HEENT Reports moist mucous membranes and dry mucous membranes Mouth ED: Yes dry mucous membranes Mouth: dry mucous membranes Eyes PERRL and EOMs intact bilaterally Neck no lymphadenopathy Chest Wall inspection of chest normal and palpation of chest normal Resp Effort and Inspection: Negative for retractions Auscultation: Negative for rales, rhonchi or wheezes Cardio regular rate and regular rhythm GI normal to inspection, nondistended, normoactive bowel sounds Back/Spine no CVA tenderness Neuro oriented x3 and CN's II-XII intact bilaterally Sensorium / Orientation: alert Psych mental status grossly normal Skin no rashes or lesions noted and no wounds General Skin Exam: Negative for jaundice MDM MDM MDM Narrative Medical decision making narrative: Well-appearing 87-year-old male presenting with cold symptoms for 2 weeks. He has a minimal cough. He states I am no more short of breath than I usually am. No production of sputum. No fevers. He does admit to urinary frequency today. Patient states he did not take his insulin today at dinnertime because he had not eaten. He states his blood sugar was about 120 at home. POC glucose here is 175. Differential at this point is likely viral illness, UTI, hyperglycemia, hypoglycemia. But the patient has had this for about 2 weeks. On exam the patient's lungs are clear to auscultation. Heart is regular rate and rhythm. Patient's pulse ox 97% on room air. He is afebrile with a respiratory rate of 16. I will check CBC for hemoglobin, white blood cell count, differential. BMP for renal function, electrolytes, glucose, anion gap. Urinalysis negative for infection. Urine glucose is normal. No occult blood. CBC shows no elevated white blood cell count. Hemoglobin stable at 12.8. Platelets normal 163. BMP shows glucose of 168 without anion gap. Renal function normal and electrolytes are normal. Urinalysis negative for infection. Ultimately feel the patient is stable for discharge home. I do not believe needs a chest x-ray, but I did offer him 1 and he declines. Patient will be discharged home to follow-up with PCP. Impression: 1. Cold-like symptoms 2. Urinary frequency Lab Data Labs: Laboratory Results - last 24 hr 01/12/23 01/12/23 01/12/23 20:05 21:38 22:27 WBC RBC Hgb Hct MCV MCH MCHC RDW Std Deviation RDW Coeff of Torie Plt Count MPV Immature Gran % (Auto) Neut % (Auto) Lymph % (Auto) [place] % (Auto) Eos % (Auto) Baso % (Auto) Absolute Neuts (auto) Absolute Lymphs (auto) Nucleated RBC % Sodium 139 Potassium 3.9 Chloride 105 Carbon Dioxide 27.0 Anion Gap 7 BUN 17 Creatinine 0.97 Estim Creat Clear Calc 55.68 Est GFR (MDRD) Af Amer 95 Est GFR (MDRD) Non-Af 78 BUN/Creatinine Ratio 17.5 Glucose 168 H Calcium 10.0 Urine Color Yellow Urine Clarity Clear Urine pH 7.0 Ur Specific [place] 1.010 Urine Protein 30 H Urine Glucose (UA) Normal Urine Ketones Negative Urine Occult Blood Negative Urine Nitrite Negative Urine Bilirubin Negative Urine Urobilinogen Normal Ur Leukocyte Esterase 25 H Urine RBC 0 SEEN Urine WBC 0 SEEN Ur Squamous Epith Cells 0 SEEN Urine Bacteria 0 SEEN Urine Mucus 0 SEEN POC Glucose 175 H 01/12/23 22:27 WBC 9.6 RBC 4.57 L Hgb 12.8 L Hct 39.5 L MCV 86.4 MCH 28.0 MCHC 32.4 RDW Std Deviation 48.0 H RDW Coeff of Torie 15.2 H Plt Count 163 MPV 10.5 Immature Gran % (Auto) 0.300 Neut % (Auto) 68.3 Lymph % (Auto) 20.5 [place] % (Auto) 8.0 Eos % (Auto) 2.6 Baso % (Auto) 0.3 Absolute Neuts (auto) 6.5 Absolute Lymphs (auto) 1.97 Nucleated RBC % 0 Sodium Potassium Chloride Carbon Dioxide Anion Gap BUN Creatinine Estim Creat Clear Calc Est GFR (MDRD) Af Amer Est GFR (MDRD) Non-Af BUN/Creatinine Ratio Glucose Calcium Urine Color Urine Clarity Urine pH Ur Specific [place] Urine Protein Urine Glucose (UA) Urine Ketones Urine Occult Blood Urine Nitrite Urine Bilirubin Urine Urobilinogen Ur Leukocyte Esterase Urine RBC Urine WBC Ur Squamous Epith Cells Urine Bacteria Urine Mucus POC Glucose Discharge Plan Triage Chief Complaint: General Illness ED Provider: Billy Deleon Dx/Rx/DC Orders Clinical Impression: Frequent urination Instructions: Overactive Bladder Syndrome (OAB) Prescriptions: No Action Melatonin 3 MG tablet 5 mg PO QHS doxepin 75 mg capsule 75 mg PO DAILY amlodipine 10 mg tablet 10 mg PO DAILY Qty: 90 3RF lisinopril 20 mg tablet 20 mg PO BID Qty: 180 3RF Humalog Mix 50-50 KwikPen 100 unit/mL (50-50) insulin pen 35 unit SC BID Qty: 21 5RF glimepiride 4 mg tablet 4 mg PO DAILY Qty: 30 5RF buspirone 10 MG tablet 10 mg PO BID Label Comments: TAKE 1 TABLET TWICE DAILY vitamins A,C,T-jidd-fhbbte 1 EACH capsule 1 cap PO BID Iron 65 mg PO BID hikfamvi-zak-FE-lycopen-lutein 1 EACH tablet 1 tab PO DAILY tamsulosin 0.4 MG capsule 0.4 mg PO DAILY@1730 Qty: 30 0RF levofloxacin 750 mg tablet 750 mg PO DAILY Qty: 6 0RF apixaban 2.5 mg tablet 2.5 mg PO BID Qty: 60 11RF atorvastatin 40 mg tablet 40 mg PO DAILY Qty: 90 3RF metoprolol tartrate 25 mg tablet 12.5 mg PO BID Qty: 90 3RF furosemide [Lasix] 40 mg tablet 40 mg PO DAILY Qty: 90 3RF Primary Care Provider: Jeremi Morel Referrals: Tylor Reyes MD [Med Staff - Active Staff] - 3-5 Days Jeremi Morel MD [Primary Care Provider] - Disposition Disposition: Home, Self Care
[2023-01-12 22:46] LABS: Absolute Lymphocyte Count 1.97 X10^3/uL (0.83-4.51); Absolute Neutrophil Count 6.5 X10^3/uL (2.0-7.7); Basophil# 0.03 X10^3/uL; Basophil% 0.3 % (0-1); Eosinophil# 0.25 X10^3/uL; Eosinophils% 2.6 % (0-5); Hematocrit 39.5 % (40-54); Hemoglobin 12.8 g/dL (13.0-16.5); Lymphocyte # 1.97 X10^3/ul (0.83-4.51); Lymphocyte % 20.5 % (19-41); Mean Corp Hgb Conc 32.4 g/dL (32-36); Mean Corpuscular Volume 86.4 fL (80-94); Mean Platelet Vol. 10.5 fl (6.2-12.0); Monocyte# 0.77 X10^3/uL; NRBC Flagged by Analyzer 0 % (0-5); Neutrophil # 6.54 X10^3/uL (2.7-7.7); Neutrophil % 68.3 % (47-70); Platelet Count 163 K/mm3 (150-450); RBC Distribution Width CV 15.2 % (11.6-14.6); Red Blood Count 4.57 M/mm3 (4.6-6.2); White Blood Count 9.6 K/mm3 (4.4-11.0)
[2023-01-12 22:56] LABS: Anion Gap 7 (5-15); BUN 17 mg/dL (7-18); BUN/Creat Ratio 17.5 RATIO (10-20); Chloride 105 mmol/L (98-107); Creatinine, Serum 0.97 mg/dL (0.70-1.30); EST Glomerular Filtration Rate 78 mL/min (>60); Est Glom Filt Rate - Afr Amer 95 mL/min (>60); Estimated Creatinine Clearance 55.68 ml/min; Glucose 168 mg/dL (74-106); Potassium 3.9 mmol/L (3.5-5.1); Sodium Level 139 mmol/L (136-145)
[2023-01-12 23:40] VITALS: BP 143/65; PULSE 82; RESP 18; O2SAT 94
== END 2023-01-12 23:45 | disposition home or self-care (01) ==
PROVIDERS: Emergency Provider Student in an Organized Health Care Education/Training Program; PCP Internal Medicine; Visit Provider Student in an Organized Health Care Education/Training Program
DX: R35.0 Frequency of micturition (principal); I13.0 Hypertensive heart and chronic kidney disease with heart failure and stage 1 through stage 4 chronic kidney disease, or unspecified chronic kidney disease; I50.32 Chronic diastolic (congestive) heart failure; E11.22 Type 2 diabetes mellitus with diabetic chronic kidney disease; I25.10 Atherosclerotic heart disease of native coronary artery without angina pectoris; Z87.891 Personal history of nicotine dependence; E78.5 Hyperlipidemia, unspecified; N18.2 Chronic kidney disease, stage 2 (mild)
CPT/HCPCS: 80048; 81001; 82962; 85025; 99283; A4216

== ENCOUNTER → 2023-08-08 | Outpatient (CLI) | payer MEDICARE, SELFPAY | END | disposition home or self-care (01) | LOC: LABSPEC 12:25 | PROVIDERS: PCP Internal Medicine; Referring Provider Physician Assistant; Visit Provider Physician Assistant | DX: R35.0 Frequency of micturition (principal); N39.0 Urinary tract infection, site not specified | CPT/HCPCS: 87086 ==

== ENCOUNTER → 2023-08-22 | Outpatient (CLI) | payer MEDICARE, SELFPAY | END | disposition home or self-care (01) | LOC: LABSPEC 12:41 | PROVIDERS: PCP Internal Medicine; Referring Provider Physician Assistant; Visit Provider Physician Assistant | DX: R30.0 Dysuria (principal) | CPT/HCPCS: 87077; 87086; 87088; 87186 ==

== ENCOUNTER → 2023-09-01 | Outpatient (CLI) | payer MEDICARE, SELFPAY | END | disposition home or self-care (01) | PROVIDERS: PCP Internal Medicine; Referring Provider Physician Assistant Surgical; Visit Provider Physician Assistant Surgical | DX: N39.0 Urinary tract infection, site not specified (principal); R35.0 Frequency of micturition | CPT/HCPCS: 87086; 87088 ==

== ENCOUNTER → 2023-09-06 | Outpatient (CLI) | payer MEDICARE, SELFPAY ==
[2023-09-06 13:26] LABS: Bacteria 0 SEEN /hpf (None Seen); Mucous, Urine 0 SEEN /hpf (<or=2+); Red Blood Cells-Urine 0 SEEN /hpf (0-5); Squamous Epithelial Cells - UA 0 SEEN /hpf (0-5); White Blood Cells 0 SEEN /hpf (0-5)
[2023-09-06 13:35] LABS: Color, Urine Yellow (Yellow); Glucose, Dipstick Normal (Normal); Ketone-Dipstick Negative (Negative); Leukocyte Esterase-Dipstick 25 /ul (Negative); Nitrite-Dipstick Negative (Negative); Occult Blood-Urine Negative /ul (Negative); Protein-Dipstick Negative (Negative); Urine Bilirubin Dipstick Negative (Negative); Urine Clarity Clear (Clear); Urine Urobilinogen Normal (Normal)
== END | disposition home or self-care (01) ==
LOC: LABSPEC 13:18
PROVIDERS: PCP Internal Medicine; Visit Provider Physician Assistant Surgical
DX: R30.0 Dysuria (principal)
CPT/HCPCS: 81001; 87086; 87088

== ENCOUNTER → 2023-09-18 | Outpatient (CLI) | payer MEDICARE, SELFPAY ==
[2023-09-18 08:22] LABS: Bacteria 0 SEEN /hpf (None Seen); Mucous, Urine 0 SEEN /hpf (<or=2+); Red Blood Cells-Urine 0 SEEN /hpf (0-5); Squamous Epithelial Cells - UA 0 SEEN /hpf (0-5); White Blood Cells 0 SEEN /hpf (0-5)
[2023-09-18 10:16] LABS: Color, Urine Yellow (Yellow); Glucose, Dipstick 50 mg/dl (Normal); Ketone-Dipstick Negative (Negative); Leukocyte Esterase-Dipstick 25 /ul (Negative); Nitrite-Dipstick Negative (Negative); Occult Blood-Urine Negative /ul (Negative); Protein-Dipstick 15 mg/dl (Negative); Urine Bilirubin Dipstick Negative (Negative); Urine Clarity Clear (Clear); Urine Urobilinogen Normal (Normal)
== END | disposition home or self-care (01) ==
PROVIDERS: PCP Internal Medicine; Visit Provider Physician Assistant
DX: R35.0 Frequency of micturition (principal)
CPT/HCPCS: 81001

== ENCOUNTER 2023-11-25 06:26 | Inpatient (IN) | payer MEDICARE, SELFPAY ==
[2023-11-25] VITALS (12 sets, daily range): BP systolic 112–177; BP diastolic 67–85; PULSE 80–109; RESP 16–28; TEMP 36.4–36.7; O2SAT 84–96; BMI 31.4; BMI 31.2
--- NOTE | 2023-11-25 07:02 | RAD_ITS ---
INDICATION: cough EXAMINATION/TECHNIQUE: X-RAY - XR Chest 1 View COMPARISON: 10/15/2021. FINDINGS: LINES/DEVICES: Bilateral airspace opacities scattered throughout the right lung and within the left lower lung. Small bilateral pleural effusions. No evidence of a pneumothorax. LUNGS: No consolidation or evidence of an effusion. No evidence of edema or a pneumothorax. MEDIASTINUM AND CARDIOVASCULAR STRUCTURES: Cardiac silhouette is normal in size and contour. Stable median sternotomy wires. BONES AND SOFT TISSUES: No acute abnormality. RAD/Chest 1 View (Portable) IMPRESSION: Scattered bilateral airspace opacities consistent with pneumonia and small bilateral pleural effusions. Electronically Signed: Pepe Gr DO at 7:36 EST ,
--- NOTE | 2023-11-25 07:02 | EKG12_ITS ---
Test Reason : SOB Blood Pressure : / mmHG Vent. Rate : 078 BPM Atrial Rate : 000 BPM P-R Int : 000 ms QRS Dur : 116 ms QT Int : 444 ms P-R-T Axes : 000 067 -58 degrees QTc Int : 506 ms Atrial fibrillation with premature ventricular or aberrantly conducted complexes Cannot rule out Anterior infarct , age undetermined ST & T wave abnormality, consider inferolateral ischemia Prolonged QT Abnormal ECG Confirmed by ERIN BLANK, GENOVEVA ([id number]), general expeditor DERREK MUÑOZ ([id number]) on 11/27/2023 6:06:43 AM Referred By: Confirmed By:GENOVEVA KHAN MD
--- NOTE | 2023-11-25 07:03 | EX.ED.DYSGE1 ---
HPI History of Present Illness Chief Complaint: Shortness of Breath Informant: patient and friend Narrative Narrative: 88-year-old male presenting to the emergency room with generalized weakness. Patient states that on Monday he began to feel generally weak. This has persisted throughout the week. He notes some mild shortness of breath with exertion slight cough with sputum production and stuffy nose. He has been taking Tylenol because it is about the only thing I can take . He is on about 15 other prescription medications including Eliquis. He has a history of diabetes chronic kidney disease hypertension hyperlipidemia CHF A-fib. He has had prior CABG and aortic valve replacement. He notes that he has swelling in his legs and the left may be is worse than normal but that is not uncommon for him. No diarrhea or vomiting. He denies any pain. Patient reports not missing any doses of his Eliquis. [facility] Medical History Abnormal LFTs Abrasions of multiple sites Acute on chronic renal failure Anxiety and depression Atherosclerosis of coronary artery of [place] heart without angina pectoris BPH (benign prostatic hyperplasia) Bradycardia Carotid artery bruit Chronic diastolic (congestive) heart failure Chronic renal failure, stage 2 (mild) Dehydration Elevated LFTs Essential (primary) hypertension Fall Frequent falls Hyperkalemia Hyperlipidemia Hypoglycemia associated with type 2 diabetes mellitus Hyponatremia Iron deficiency anemia Left bundle branch block Near syncope Non-rheumatic aortic stenosis Obesity Paroxysmal atrial fibrillation Physical debility Pleural effusion on left Postoperative atrial fibrillation (01/01/19) Secondary pulmonary arterial hypertension Significant closed head trauma within past 3 months Stenosis of right subclavian artery Thrombocytopenia Thyroid nodule Type 2 diabetes mellitus Vitamin D deficiency Home Medications vitamins A,C,P-owzy-fshqcs 4,296 mcg-226 mg-90 mg capsule 1 cap PO BID EYE HEALTH 03/07/19 [History Last Taken 10/25/19] azruzzeu-ir-dfngg 300 mcg-K 60 mcg-lycop 600 mcg-lutein 300 mcg tablet 1 tab PO DAILY supplement 10/25/19 [History Last Taken 10/25/19] Iron 65 mg PO BID 01/15/21 [History Last Taken Unknown] furosemide 40 mg tablet (Lasix) 40 mg PO DAILY #90 tabs 01/12/23 [Rx Last Taken Unknown] mirtazapine 7.5 mg tablet 7.5 mg PO DAILY 02/14/23 [History Last Taken Unknown] amlodipine 10 mg tablet 10 mg PO DAILY #90 tabs 04/26/23 [Rx Last Taken Unknown] apixaban 2.5 mg tablet 2.5 mg PO BID anticoagulant #60 tabs 04/26/23 [Rx Last Taken Unknown] atorvastatin 40 mg tablet 40 mg PO DAILY antihyperlipidemics #90 tabs 04/26/23 [Rx Last Taken Unknown] lisinopril 20 mg tablet 20 mg PO BID this is a dose increase #180 tabs 04/26/23 [Rx Last Taken Unknown] metoprolol tartrate 25 mg tablet 12.5 mg (1/2 x 25 mg) PO BID high blood pressure #90 tabs 04/26/23 [Rx Last Taken Unknown] clonazepam 0.5 mg tablet (Klonopin) 0.5 mg PO DAILY PRN anxiety 08/08/23 [History Last Taken Unknown] buspirone 15 mg tablet 15 mg PO BID 11/25/23 [History Last Taken Unknown] doxepin 50 mg capsule 50 mg PO QHS 11/25/23 [History Last Taken Unknown] insulin lispro protamine-lispro 100 unit/mL (50-50) subcutaneous pen (Humalog Mix 50-50 KwikPen) See Rx Instructions subcut .COMPLEX 11/25/23 [History Last Taken Unknown] melatonin 5 mg tablet 5 mg PO QHS 11/25/23 [History Last Taken Unknown] tamsulosin 0.4 mg capsule 0.8 mg PO DAILY@1730 diuretic 11/25/23 [History Last Taken Unknown] Allergy/AdvReac Type Severity Reaction Status Date / Time No Known Allergies Allergy Verified 11/25/23 06:26 Family History Father CVA (cerebral vascular accident) Mother COPD (chronic obstructive pulmonary disease) Surgical History H/O aortic valve replacement (01/01/19) H/O coronary artery bypass surgery (01/01/19) History of cataract surgery History of hip replacement History of left heart catheterization (10/31/18) History of open reduction and internal fixation (ORIF) procedure History of thoracentesis (01/05/19) Social History Smoking Status: Former smoker quit date: 11/13/03 how long ago did patient quit smoking: cigars ROS ROS ED Constitutional Constitutional ED: Denies chills, fever(s), subjective or weight loss Eyes Eyes: Denies change in vision or diplopia ENT ENT ED: Reports rhinorrhea; Denies ear pain or sore throat Cardiovascular Cardiovascular: Denies chest pain, orthopnea, palpitations or racing heartbeat Respiratory/Chest Respiratory/Chest: Reports cough and dyspnea on exertion; Denies orthopnea Gastrointestinal Gastrointestinal: Denies abdominal pain, diarrhea, nausea or vomiting Genitourinary Genitourinary ED: Denies dysuria, hematuria or urinary frequency Musculoskeletal Musculoskeletal: Reports other Details: Bilateral lower extremity swelling left greater than right. No pain in legs. ; Denies arthralgias or myalgias Integumentary Denies abscess or rash Neurologic Neurologic: Denies headache(s) or weakness Psychiatric Psychiatric: Denies anxiety, depression, suicidal ideation or suicidal thoughts Endocrine Endocrinology: Denies polydipsia, polyphagia or polyuria Allergic/Immunologic Allergic/Immunologic ED: Denies mouth swelling, tongue swelling or urticaria EXAM Physical Exam Const Vital Signs: 11/25/23 06:27 11/25/23 06:29 11/25/23 06:32 Temperature 98 F 98 F Temperature Source Temporal Temporal Pulse Rate 100 100 Respiratory Rate 24 H 24 H Respiratory Effort Short of Breath Respiratory Depth Respiratory Pattern Blood Pressure 112/67 112/67 Blood Pressure Mean 82 82 Pulse Ox 93 93 Oxygen Delivery Method 11/25/23 06:47 11/25/23 10:38 Temperature Temperature Source Pulse Rate 105 H Respiratory Rate 28 H Respiratory Effort Short of Breath Respiratory Depth Normal Respiratory Pattern Tachypnea Blood Pressure Blood Pressure Mean Pulse Ox 84 Oxygen Delivery Method Room Air Room Air Positive well nourished and well developed General Appearance ED: well developed HEENT Reports normocephalic, head/scalp atraumatic and moist mucous membranes Eyes PERRL and EOMs intact bilaterally Neck no lymphadenopathy, supple and no JVD Resp normal respiratory effort and clear to auscultation bilaterally Cardio no murmurs Rhythm: abnormal rhythm irregularly irregular GI normal to inspection, nondistended, normoactive bowel sounds and non-tender Palpation: soft Back/Spine no CVA tenderness and normal ROM Extremity normal to inspection General Extremety ED: Yes edema General Extremity: edema bilateral lower extremity (L>R. No pain with palpation) Details: mild Neuro oriented x3 and CN's II-XII intact bilaterally Sensorium / Orientation: alert Motor Exam: strength 5/5 throughout Psych mental status grossly normal Mood & Affect: Negative for depressed or tearful Skin no rashes or lesions noted and no wounds MDM MDM MDM Narrative Medical decision making narrative: White count 7.8 with hemoglobin of 12.3. Troponin 26 BNP 209. Lactic acid curiously at 2.8. BMP showed a glucose of 227 creatinine 1.25. Urinalysis normal. COVID flu and RSV testing negative. My independent interpretation of the chest x-ray is bilateral pleural effusions with possible right lower and right upper lobe infiltrates. CTA of the chest was ordered given the asymmetric swelling of the legs and the chest x-ray findings. This is negative for embolism. This redemonstrated the bilateral pleural effusions. I do not see definitive evidence of pneumonia but question if this is more edema related. He does not have fever he does not have white count. He has history of diastolic CHF with lower extremity swelling and now some dyspnea and edema on imaging. With getting up to the bedside he is about 84% on room air. Going to give him a dose of Lasix. Plan will be admission to hospital. History & Record Review Discussion w/independent historian: Patient, Family and Friend Lab Data Attestation: I reviewed the patient's lab results. Labs: Laboratory Results - last 24 hr 11/25/23 11/25/23 06:40 08:49 WBC 7.8 RBC 4.15 L Hgb 12.3 L Hct 37.7 L MCV 90.8 MCH 29.6 MCHC 32.6 RDW Std Deviation 43.8 RDW Coeff of Torie 13.4 Plt Count 143 L MPV 11.9 Immature Gran % (Auto) 0.500 Neut % (Auto) 73.3 H Lymph % (Auto) 16.1 L [place] % (Auto) 6.8 Eos % (Auto) 2.8 Baso % (Auto) 0.5 Absolute Neuts (auto) 5.7 Absolute Lymphs (auto) 1.25 Nucleated RBC % 0 PT 14.8 INR 1.2 APTT 31.6 Sodium 138 Potassium 3.8 Chloride 104 Carbon Dioxide 23.0 Anion Gap 11 BUN 25 H Creatinine 1.25 Estim Creat Clear Calc 47.16 Est GFR (MDRD) Af Amer 70 Est GFR (MDRD) Non-Af 58 L BUN/Creatinine Ratio 20.0 Glucose 227 H Lactic Acid 2.8 H* Calcium 9.8 Troponin I High Sens 26 B-Natriuretic Peptide 209.0 H Lipase 26 Urine Color Yellow Urine Clarity Clear Urine pH 6.5 Ur Specific [place] 1.010 Urine Protein 15 H Urine Glucose (UA) Normal Urine Ketones Negative Urine Occult Blood Negative Urine Nitrite Negative Urine Bilirubin Negative Urine Urobilinogen Normal Ur Leukocyte Esterase 100 H Urine RBC 0 SEEN Urine WBC 0-5 SEEN Ur Squamous Epith Cells 0 SEEN Urine Bacteria 0 SEEN Urine Mucus 0 SEEN Radiography Diagnostic Testing: Clinical Impression(s) from Imaging Studies Chest X-Ray 11/25/23 07:02 IMPRESSION: Scattered bilateral airspace opacities consistent with pneumonia and small bilateral pleural effusions. Electronically Signed: Pepe Gr DO at 7:36 EST , Chest CTA 11/25/23 08:52 IMPRESSION: No demonstrated pulmonary embolism or arterial dissection. Bilateral pleural effusions associated with left lower lobe consolidation. Bilateral groundglass opacities, may be secondary to edema and/or an infectious process. Enlarged mediastinal lymph nodes, may be reactive however cannot entirely exclude a neoplastic process. Hiatal hernia. Electronically Signed: Priya Gonzalez MD at 9:28 EST , ADDENDUM: 11/25/23 0953 IMPRESSION: undefined EKG Initial EKG: Attestation: I personally reviewed and interpreted this EKG as follows: Comments: Atrial fibrillation with PVC noted. Ventricular rate of 78 bpm. Discharge Plan Triage Chief Complaint: Shortness of Breath ED Provider: Maxi Quiroga Dx/Rx/DC Orders Prescriptions: No Action mirtazapine 7.5 mg tablet 7.5 mg PO DAILY clonazepam [Klonopin] 0.5 mg tablet 0.5 mg PO DAILY PRN (Reason: anxiety) vitamins A,C,S-fdyn-vutaxi 1 EACH capsule 1 cap PO BID Iron 65 mg PO BID pv-udi-togpn-S1-pcpmfbn-rrfsbo 1 EACH tablet 1 tab PO DAILY doxepin 50 mg capsule 50 mg PO QHS Patient Comments: TAKE 1 CAPSULE BY MOUTH AT BEDTIME buspirone 15 mg tablet 15 mg PO BID Patient Comments: TAKE 1 TABLET BY MOUTH TWICE DAILY melatonin 5 mg tablet 5 mg PO QHS tamsulosin 0.4 MG capsule 0.8 mg PO DAILY@1730 Humalog Mix 50-50 KwikPen 100 unit/mL (50-50) insulin pen See Rx Instructions [place] .COMPLEX Rx Instructions: 30 units subcutaneously AM; 28 units PM furosemide [Lasix] 40 mg tablet 40 mg PO DAILY Qty: 90 3RF apixaban 2.5 mg tablet 2.5 mg PO BID Qty: 60 11RF amlodipine 10 mg tablet 10 mg PO DAILY Qty: 90 3RF metoprolol tartrate 25 mg tablet 12.5 mg PO BID Qty: 90 3RF lisinopril 20 mg tablet 20 mg PO BID Qty: 180 3RF atorvastatin 40 mg tablet 40 mg PO DAILY Qty: 90 3RF Primary Care Provider: Jeremi Morel Referrals: Jeremi Morel MD [Primary Care Provider] -
[2023-11-25 07:33] LABS: Absolute Lymphocyte Count 1.25 X10^3/uL (0.83-4.51); Absolute Neutrophil Count 5.7 X10^3/uL (2.0-7.7); Basophil# 0.04 X10^3/uL; Basophil% 0.5 % (0-1); Eosinophil# 0.22 X10^3/uL; Eosinophils% 2.8 % (0-5); Hematocrit 37.7 % (40-54); Hemoglobin 12.3 g/dL (13.0-16.5); Lymphocyte # 1.25 X10^3/ul (0.83-4.51); Lymphocyte % 16.1 % (19-41); Mean Corp Hgb Conc 32.6 g/dL (32-36); Mean Corpuscular Hgb 29.6 pg (27.0-32.0); Mean Corpuscular Volume 90.8 fL (80-94); Mean Platelet Vol. 11.9 fl (6.2-12.0); Monocyte# 0.53 X10^3/uL; Monocyte% 6.8 % (0-10); NRBC Flagged by Analyzer 0 % (0-5); Neutrophil # 5.68 X10^3/uL (2.7-7.7); Neutrophil % 73.3 % (47-70); Platelet Count 143 K/mm3 (150-450); RBC Distribution Width CV 13.4 % (11.6-14.6); RBC Distribution Width SD 43.8 fl (35.1-43.9); Red Blood Count 4.15 M/mm3 (4.6-6.2); White Blood Count 7.8 K/mm3 (4.4-11.0)
--- OUTSIDE RECORDS SUMMARY | 2023-11-25 07:34 | XMS RPT_ITS | CCD ---
Author Name Unknown Address [address] [place] [address] Organization [facility] Care Team Providers Care Special Assets Officer Name Role Phone STEFANY ORTEZNETH E Unavailable Unavailable NEELIMA, MICHAEL E Unavailable Unavailable NEELIMA, MICHAEL Unavailable Unavailable NEELIMA, MICHAEL Unavailable Unavailable Дмитрий Jeremi Unavailable Unavailable NEELIMA, MICHAEL Unavailable Unavailable NEELIMA, MICAHEL Unavailable Unavailable Дмитрий Jeremi Unavailable Unavailable SERGE, CHOLO S. Attending Unavailable JEREMI MOREL Primary Care Unavailable SERGE, CHOLO S. Attending Unavailable ДМИТРИЙ, JEREMI Primary Care Unavailable SERGE, CHOLO S. Admitting Unavailable SERGE, CHOLO S. Consulting Unavailable SOLEDAD ADHIKARI Consulting Unavailable JANETH KOROMA Consulting Unavailable SERGE, CHOLO S. Attending Unavailable ДМИТРИЙ, JEREMI Primary Care Unavailable SERGE, CHOLO S. Attending Unavailable ДМИТРИЙ, JEREMI Primary Care Unavailable SERGE, CHOLO S. Attending Unavailable JEREMI MOREL Primary Care Unavailable Jeremi Morel MD Primary Care Provider Caterina, Athol S Unavailable Jeremi Morel MD Primary Care Provider Caterina, Athol S Unavailable Jeremi Morel MD Primary Care Provider Caterina, Thompson S Unavailable Caterina, Athol S Unavailable Caterina BLANK Thompson S Unavailable JEREMI MOREL Attending Unavailable JEREMI MOREL Primary Care Unavailable ДМИТРИЙ, JEREMI Sharp Primary Care Unavailable OLDER, MERCEDEZ Referring Unavailable ДМИТРИЙ, JERZY Primary Care Unavailable MAXI CAGE Attending Unavailable ДМИТРИЙ, JEREMI Sharp Referring Unavailable ДМИТРИЙ, JEREMI Sharp Primary Care Unavailable ДМИТРИЙ, JEREMI Sharp Attending Unavailable ДМИТРИЙ, JEREMI Sharp Primary Care Unavailable ДМИТРИЙ, JEREMI Sharp Attending Unavailable ДМИТРИЙ, JEREMI Sharp Primary Care Unavailable Medications Current Medications Medication Drug Class(es) Dates Sig (Normalized) Sig (Original) mometasone furoate 1 mg/ml topical cream (1 source) Corticosteroid Start: 05-05-2023 End: 05-19-2023 mometasone (ELOCON) 0.1 % cream Indications: Rash and nonspecific skin eruption Apply to affected area once daily for 14 days. 45 g 0 05/05/2023 05/19/2023 Active Completed/Discontinued Medications Medication Drug Class(es) Dates Sig (Normalized) Sig (Original) amLODIPine 10 mg oral tablet (12 sources) Dihydropyridine Calcium Channel Triston Start: 10-25-2021 take 1 tablet by mouth once daily amLODIPine (NORVASC) 10 mg tablet Take 1 tablet by mouth once daily. 0 10/25/2021 Active Problems Active Problems Problem Classification Problem Date Documented Da te Episodic/Chronic Cardiac dysrhythmias (15 sources) Paroxysmal atrial fibrillation; Translations: [Paroxysmal atrial fibrillation] Onset: 01-01-2019 01-10-2019 Chronic Congestive heart failure; nonhypertensive (14 sources) Acute on chronic diastolic heart failure; Translations: [Acute on chronic diastolic (congestive) heart failure] Onset: 05-27-2019 05-27-2019 Chronic Diabetes mellitus with complications (18 sources) Type 2 diabetes mellitus; Translations: [Type 2 diabetes mellitus with diabetic chronic kidney disease] Onset: 07-30-2015 Chronic Diabetes mellitus without complication (1 source) Diabetes mellitus without complication; Translations: [Type 2 diabetes mellitus with stage 3a chronic kidney disease, with long-term current use of insulin (HCC)] Onset: 03-26-2020 Disorders of lipid metabolism (14 sources) Hyperlipidemia; Translations: [Hyperlipidemia, unspecified] Onset: 08-18-2016 08-18-2016 Chronic Essential hypertension (16 sources) Essential (primary) hypertension; Translations: [Essential hypertension] Onset: 12-22-2017 12-01-2015 Chronic Genitourinary symptoms and ill-defined conditions (5 sources) Dysuria; Translations: [Dysuria] Onset: 09-25-2023 08-28-2023 Episodic Heart valve disorders (20 sources) Nonrheumatic aortic (valve) stenosis; Translations: [Mitral valve regurgitation] Onset: 09-15-2011 09-15-2011 Chronic Hyperplasia of prostate (19 sources) Benign prostatic hypertrophy with outflow obstruction; Translations: [Benign prostatic hyperplasia with lower urinary tract symptoms] Onset: 11-29-2019 Chronic Immunizations and screening for infectious disease (1 source) Needs influenza immunization; Translations: [Encounter for immunization] Episodic Mood disorders (14 sources) Bipolar disorder; Translations: [Bipolar disorder, unspecified] 02-11-2019 Chronic Nutritional deficiencies (12 sources) Vitamin D deficiency; Translations: [Vitamin D deficiency, unspecified] Onset: 12-01-2015 12-01-2015 Chronic Other nutritional; endocrine; and metabolic disorders (13 sources) Obese class I; Translations: [Obesity, unspecified] Onset: 01-13-2021 01-13-2021 Chronic Other screening for suspected conditions (not mental disorders or infectious disease) (2 sources) Patient encounter status; Translations: [Encounter for screening for other disorder] Onset: 09-25-2023 09-25-2023 Episodic Other skin disorders (1 source) Eruption; Translations: [Rash and other nonspecific skin eruption] Episodic Spondylosis; intervertebral disc disorders; other back problems (12 sources) Lumbar spondylosis; Translations: [Spondylosis without myelopathy or radiculopathy, lumbar region] Onset: 08-18-2016 08-18-2016 Chronic Unclassified (1 source) Unknown / UNK(Unknown) Onset: 08-23-2012 Past or Other Problems Problem Classification Problem Date Documented Da te Episodic/Chronic Other aftercare (1 source) nursing home (current) use of insulin; Translations: [Type 2 diabetes mellitus with stage 3a chronic kidney disease, with long-term current use of insulin (HCC)] Onset: 03-26-2020 Episodic Other diseases of kidney and ureters (1 source) Other obstructive and reflux uropathy; Translations: [BPH with urinary obstruction] Onset: 11-29-2019 Episodic Other non-epithelial cancer of skin (12 sources) History of malignant neoplasm of skin; Translations: [Personal history of other malignant neoplasm of skin] Onset: 07-22-2021 07-22-2021 Episodic Results Test Name Value Interpretation Reference Range Facil ity Vital Signs Date Time Vital Sign Value Performing Clinician Chetna lynne 09-25-2023 09:57-0500 Body height 172.7 cm Maxi Cage APRN.[facility] Work Phone: [facility] 09-25-2023 09:57-0500 Body temperature 97.39 [degF] Maxi Cage APRN.OFFICE SUPPORT SPECIALIST, [facility] Work Phone: [facility] 09-25-2023 09:57-0500 Body weight 89.99 kg Maxi Cage APRN.OFFICE SUPPORT SPECIALIST, [facility] Work Phone: [facility] 09-25-2023 09:57-0500 Diastolic blood pressure 62 mm[Hg] Maxi Cage APRN.OFFICE SUPPORT SPECIALIST [facility] Work Phone: [facility] 09-25-2023 09:57-0500 Heart rate 84 /min Maxi Cage APRN.OFFICE SUPPORT SPECIALIST [facility] Work Phone: [facility] 09-25-2023 09:57-0500 Respiratory rate 16 /min Maxi Cage APRN.OFFICE SUPPORT SPECIALIST, [facility] Work Phone: [facility] 09-25-2023 09:57-0500 SaO2% (BldA) [Mass fraction] 98 % Maxi Cage APRN.OFFICE SUPPORT SPECIALIST [facility] Work Phone: [facility] 09-25-2023 09:57-0500 Systolic blood pressure 138 mm[Hg] Maxi Cage APRN.[facility] Work Phone: [facility] 08-28-2023 13:53-0400 Body weight 86.64 kg Jeremi Morel MD Work Phone: [facility] 08-28-2023 13:53-0400 Diastolic blood pressure 60 mm[Hg] Jeremi Morel MD Work Phone: [facility] 08-28-2023 13:53-0400 Heart rate 74 /min Jeremi Morel MD Work Phone: [facility] 08-28-2023 13:53-0400 Respiratory rate 16 /min Jeremi Morel MD Work Phone: [facility] 08-28-2023 13:53-0400 Systolic blood pressure 138 mm[Hg] Jeremi Morel MD Work Phone: [facility] 05-05-2023 08:48-0400 Body weight 91.17 kg Jeremi Morel MD Work Phone: [facility] 05-05-2023 08:48-0400 Diastolic blood pressure 68 mm[Hg] Jeremi Morel MD Work Phone: [facility] 05-05-2023 08:48-0400 Heart rate 76 /min Jeremi Morel MD Work Phone: [facility] 05-05-2023 08:48-0400 Respiratory rate 18 /min Jeremi Morel MD Work Phone: [facility] 05-05-2023 08:48-0400 Systolic blood pressure 166 mm[Hg] Jeremi Morel MD Work Phone: [facility] 01-31-2023 08:58-0400 Diastolic blood pressure 66 mm[Hg] Jeremi Morel MD Work Phone: [facility] 01-31-2023 08:58-0400 Heart rate 60 /min Jeremi Morel MD Work Phone: [facility] 01-31-2023 08:58-0400 Systolic blood pressure 153 mm[Hg] Jeremi Morel MD Work Phone: [facility] 01-31-2023 08:47-0400 Body weight 92.99 kg Jeremi Morel MD Work Phone: [facility] 01-31-2023 08:47-0400 Respiratory rate 16 /min Jeremi Morel MD Work Phone: [facility] 08-02-2022 08:37-0400 Diastolic blood pressure 59 mm[Hg] Mercedez Mensah APRN.OFFICE SUPPORT SPECIALIST Work Phone: [facility] 08-02-2022 08:37-0400 Heart rate 61 /min Mercedez Older INSPECTOR FINAL ASSEMBLY ELECTRICAL.OFFICE SUPPORT SPECIALIST Work Phone: [facility] 08-02-2022 08:37-0400 Systolic blood pressure 144 mm[Hg] Mercedez Older INSPECTOR FINAL ASSEMBLY ELECTRICAL.OFFICE SUPPORT SPECIALIST Work Phone: [facility] 08-02-2022 08:33-0400 Body height 175.3 cm Mercedez Older INSPECTOR FINAL ASSEMBLY ELECTRICAL.OFFICE SUPPORT SPECIALIST Work Phone: [facility] 08-02-2022 08:33-0400 Body temperature 98.01 [degF] Mercedez Older INSPECTOR FINAL ASSEMBLY ELECTRICAL.OFFICE SUPPORT SPECIALIST Work Phone: [facility] 08-02-2022 08:33-0400 Body weight 95.71 kg Mercedez Older INSPECTOR FINAL ASSEMBLY ELECTRICAL.OFFICE SUPPORT SPECIALIST Work Phone: [facility] 08-02-2022 08:33-0400 Respiratory rate 16 /min Mercedez Older INSPECTOR FINAL ASSEMBLY ELECTRICAL.OFFICE SUPPORT SPECIALIST Work Phone: [facility] Encounters Encounter Date Encounter Type Care Provider Facility Start: 10-02-2023 Telephone encounter Maxi beauchamp INSPECTOR FINAL ASSEMBLY ELECTRICAL.OFFICE SUPPORT SPECIALIST, DNP Work Phone: Urology Procedures Date Procedure Procedure Detail Performing Clinician Start: 02-20-2023 Hemoglobin A1c/Hemoglobin.total in Blood [facility] Provider Start: 09-12-2022 Hemoglobin A1c/Hemoglobin.total in Blood [facility] Provider Start: 08-02-2022 INFLUENZA SEASONAL QUADRIVALENT HIGH DOSE AGE 65+ Mercedez Older INSPECTOR FINAL ASSEMBLY ELECTRICAL.OFFICE SUPPORT SPECIALIST Work Phone: Start: 01-01-2019 History of coronary artery bypass grafting S/P CABG x 2 Jeremi Morel MD Work Phone: History of coronary artery bypass grafting S/P CABG x 2 Jeremi Morel MD Work Phone: Plan of Treatment Date Care Activity Detail Author Start: 10-25-2029 Urine microalbumin profile [facility] Start: 02-01-2024 3 comp foot exam completed DIABETIC FOOT EXAM [facility] Start: 10-17-2023 Hepatitis B screening URINE AL BUMIN:CREATININE RATIO [facility] Start: 10-17-2023 Hepatitis B surface antibody level LDL CHOLESTEROL [facility] Start: 08-22-2023 Hemoglobin A1c/Hemoglobin.total in Blood HBA1C [facility] Start: 08-17-2023 Hepatitis C antibody , confirmatory test DILATED RETINAL EXAM [facility] Start: 08-02-2023 COVID-19 VACCINE (4 - Booster for Moderna series) COVID-19 VACCINE (4 - Booster for Moderna series) [facility] Immunizations Immunization Date Immunization Notes Care Provider Fa cility 08-02-2022 influenza, high-dose , quadrivalent vaccine (FLUZONE HIGH DOSE QUADRIVALENT) Mercedez Older INSPECTOR FINAL ASSEMBLY ELECTRICAL.OFFICE SUPPORT SPECIALIST Work Phone: [facility] Work Phone: 08-02-2022 influenza virus vacc ine, unspecified formulation Jeremi Morel MD Work Phone: [facility] 12-01-2021 COVID-19 vaccine, ag e 12+ yr ([employer] - [facility]) Jeremi Morel MD Work Phone: [facility] Work Phone: 07-22-2021 influenza, high-dose , quadrivalent vaccine (FLUZONE HIGH DOSE QUADRIVALENT) Jeremi Morel MD Work Phone: [facility] Work Phone: 03-10-2021 COVID-19 vaccine, fu ll dose (MODERNA) Jeremi Morel MD Work Phone: [facility] Work Phone: 09-17-2020 influenza, high-dose , quadrivalent vaccine (FLUZONE HIGH DOSE QUADRIVALENT) Jeremi Morel MD Work Phone: [facility] Work Phone: 10-30-2019 influenza, seasonal, injectable, preservative free Jeremi Morel MD Work Phone: [facility] Work Phone: 10-25-2019 tetanus toxoid, redu vasiliy diphtheria toxoid, and acellular pertussis vaccine, adsorbed Jeremi Morel MD Work Phone: [facility] Work Phone: 09-10-2018 influenza, high dose seasonal, preservative-free Jeremi Morel MD Work Phone: [facility] 09-06-2017 influenza, high dose seasonal, preservative-free Jeremi Morel MD Work Phone: [facility] 08-18-2016 influenza, high dose seasonal, preservative-free Jeremi Morel MD Work Phone: [facility] 07-30-2015 influenza, high dose seasonal, preservative-free Jeremi Morel MD Work Phone: [facility] 07-30-2015 pneumococcal conjuga te vaccine, 13 valent Jeremi Morel MD Work Phone: [facility] 08-28-2014 influenza, seasonal, injectable Jeremi Morel MD Work Phone: [facility] 08-28-2013 influenza virus vacc ine, unspecified formulation Jeremi Morel MD Work Phone: [facility] 08-28-2013 pneumococcal polysaccharide vaccine, 23 valent Jeremi Morel MD Work Phone: [facility] 08-23-2012 influenza virus vacc ine, unspecified formulation Jeremi Morel MD Work Phone: [facility] 09-15-2011 influenza virus vacc ine, unspecified formulation Jeremi Morel MD Work Phone: [facility] 09-10-2010 influenza virus vacc ine, unspecified formulation Jeremi Morel MD Work Phone: [facility] Work Phone: 08-27-2008 influenza virus vacc ine, unspecified formulation Jeremi Morel MD Work Phone: [facility] 09-05-2006 influenza virus vacc ine, unspecified formulation Jeremi Morel MD Work Phone: [facility] 10-28-2005 influenza virus vacc ine, unspecified formulation Jeremi Morel MD Work Phone: [facility] Work Phone: 12-21-2004 diphtheria and tetan us toxoids, adsorbed for pediatric use Jeremi Morel MD Work Phone: [facility] Work Phone: Payers Date Payer Category Payer Self-pay 2017 Unknown PRIMETIME [employer] HMO POS [id number] 2017-Present [phone] [address] [place] [address] HMO [id number] 2017 Unknown PRIMETIME [employer] HMO POS [id number] 2017-Present [phone] [address] [place] [address] HMO [id number] 2017 Medicare [id number] 2017 Unknown [id number] 1935 Unknown [id number] 1937 Unknown [id number] 1937 Unknown [id number] 1937 Unknown [id number] 1937 Unknown [id number] Social History Date Type Detail Facility Start: [facility]02-2022 [facility] End: 12-07-2001 History of tobacco use Current smoker [facility] End: 12-07-2001 History of tobacco use Cigar Smoker [facility] Start: 01-20-2022 End: 08-28-2023 Alcohol intake Current non-drinker of alcohol (finding) [facility] Start: 1935 Sex Assigned At Not on file [facility] Start: 08-02-2022 Tobacco use and exposure Smokeless tobacco non-user [facility] Work Phone: Start: 07-23-2022 End: 08-02-2022 Exposure to SARS-CoV-2 (event) Not sure [facility] Work Phone: Start: 01-31-2023 End: 05-05-2023 History of Social function [facility] Work Phone: Start: 01-31-2023 End: 05-05-2023 Tobacco use panel [facility] Work Phone: Adult Depression Screening Assessment 6 [facility] Work Phone: Start: 09-25-2023 Alcohol intake Ex-drinker (finding) [facility] Medical Equipment Procedure Code Equipment Code Equipment Origin al Text Equipment Identifier Dates Test blood sugar (s) 2 times daily. Dx: Type 2 DM - Uncontrolled [id number] Insulin: No Start: 11-16-2020 End: 07-26-2023 Clinical Notes 12-05-2017 to 09-25-2023 Telephone Encounter - Maxi Cage APRN.SAMMY PRAJAPATI - 09/25/2023 4:48 PM ESTTelephone Encounter - Mary Schmitt LPN - 09/25/2023 4:17 PM ESTPatient InstructionsPatient Instructions Note Date & Type Note Facility 09-25-2023 Miscellaneous Notes Noted. Reviewed. Maxi Cage APRN.SAMMY PRAJAPATI Received outside medical records- scanned to [employer] via [employer]. Notified Maxi Cage APRN, CNP, DNP. Mary Schmitt LPN documented in this encounter [facility] 09-25-2023 Note HNO ID: [id number] Author: Maxi Cage APRN.OFFICE SUPPORT SPECIALIST, DNP Service: ? Author Type: Nurse Practitioner Type: Progress Notes Filed: 09/25/2023 10:44 AM Note Text: [facility] MALE PATIENT - HISTORY AND PHYSICAL EXAMINATION PATIENT: Osvaldo Lucio (88 year old) 09/25/2023 PCP: Jeremi Morel MD New patient to Urology CHIEF COMPLAINT: BPH/LUTS HISTORY OF PRESENT ILLNESS: 88 year old year old male with BPH/LUTS. Main complaint is urinary frequency. 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 Recently treated for UTI. First started on Keflex, then changed to Macrobid and Cipro. UC + for E coli. Has one pill left of Cipro. Symptoms have greatly improved with antibiotics. Hx of BPH: Recently PCP increased Flomax to 0.8mg. URINARY: DAYTIME FREQUENCY: Every 3 hours NIGHTTIME FREQUENCY: 0 IRRITATIVE - BOTHERSOME FREQUENCY: Yes - URGENCY: Yes - INCONTINENCE: Stress No / Urge Yes OBSTRUCTIVE - FORCE OF STREAM: Average - HESITANCY: No - INTERMITTENCY: No - STRAINING: No - INCOMPLETE EMPTYING: Yes - DOUBLE VOIDING: No - POSTVOID DRIBBLING: No CURRENT URINARY STATUS: - INDWELLING CATHETER: No - CURRENT INTERMITTENT CATHETERIZATION: No - GROSS HEMATURIA: No - URINARY TRACT INFECTION: Yes Patient Entered Questionnaires: INTERNATIONAL PROSTATE SYMPTOM SCORE (I-PSS): OVER THE PAST FEW WEEKS. 1)INCOMPLETE EMPTYING Over the past month, how often have you had a sensation of not emptying your bladder completely after you finished urinating? SCORE: 0- Not at all 2)FREQUENCY Over the past month, how often have you had to urinate again less than two hours after you finished urinating? SCORE: 5- Almost always 3)INTERMITTENCY Over the past month, how often have you found you stopped and started again several times when you urinated? SCORE: 5- Almost always 4)URGENCY Over the past month, how often have you found it difficult to postpone urination? SCORE: 4- More than half the time 5)WEAK STREAM Over the past month, how often have you had a weak stream? SCORE: 4- More than half the time 6)STRAINING Over the past month, how often have you had to push or strain to begin urination SCORE: 2- less than half the time 7)NOCTURIA Over the past month, how many times did you most typically get up to urinate from the time you went to bed at night until the time you get up in the morning? SCORE:0 TOTAL I-PSS SCORE: 22 QUALITY OF LIFE DUE TO URINARY SYMPTOMS If you were to spend the rest of yur life with your urinary condition just the way it is now, how would you feel about that? 6- Terrible PROMIS Global Health PROMIS Global Health Scale 06/06/2017 Physical Health Percentile 41 % Mental Health Percentile 43 % Percentiles provide an indication of how the patient's score ranks in relation to the general population. Higher percentile rankings indicate better function/quality of life. 50th percentile is the average of the general population and indicates half of respondents had a worse score. HISTORY: PAST MEDICAL HISTORY Diagnosis Date Acute on chronic diastolic (congestive) heart failure ([facility]) 05/27/2019 Aortic stenosis 08/23/2012 Aortic valve replaced 01/01/2019 Bipolar disorder, unspecified ([facility]) BPH with urinary obstruction Chronic kidney disease (CKD), stage III (moderate) ([facility]) 03/12/2010 DM type 2 causing CKD stage 3 ([facility]) 07/30/2015 Dysuria Essential hypertension Frequency of urination Hyperlipidemia cholesterol 197 08/27/2012 [facility] Impaired glucose metabolism HGBA1C 6.1 08/27/2012 [facility]. He has since 2006 had A1C values in the 5.7-6.1 range and is on medications and does follow any dietary regime. Two times in 2008, the value was 6.5 and 6.8%. I discussed this with him and will change to impaired glucose. 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 ARTHRP ACETBLR/PROX FEM PROSTC AGRFT/ALGRFT 02/14/2012 Hip replacement, total Dr Berry CABG (2) VEIN GRAFTS AND ARTERIAL GRAFT(S 01/03/2019 CORONARY ARTERY BYPASS GRAFTS X USING THE LEFT INTERNAL MAMMARY ARTERY AND THE LEFT CARDIAC CATH 10/31/2018 OPTX ANKLE DISLOCATION W/REPAIR/INT/XTRNL FIXJ 1992 ORIF Ankle right [facility] REPLACEMENT, AORTIC VALVE, WITH CAR 01/03/2019 Social History Tobacco Use Smoking status: Former Types: Cigars Quit date: 12/07/2001 Years since quittin.8 Smokeless tobacco: N (more content not included)... [facility] 09-25-2023 Note HNO ID: [id number] Author: Mary Schmitt LPN Service: ? Author Type: ? Type: Progress Notes Filed: 09/25/2023 10:44 AM Note Text: Verified name and date of . CC Post Void Residual HPI: Osvaldo Lucio is a 88 year old male. The patient is here now for an appointment with Landon Garcia, [place], [place], PA-COV. Procedure: Explained procedure to patient and verbalizes understanding. Performed a PVR. PATIENT UNABLE TO URINATE AT THIS TIME. . Results of scan: 267 mL The patient tolerated the procedure well. Plan: Appointment with Landon. [facility] 09-25-2023 Instructions Maxi Cage APRN.SAMMY PRAJAPATI - 09/25/2023 10:36 AM EST Follow up with Maxi Cage APRN.SAMMY PRAJAPATI in 8 weeks Continue with Flomax Discussed the role of pharmacotherapy, including risks, benefits and alternatives: Alpha-triston therapy [e.g. Tamsulosin] - potential risks of dizziness, asthenia, orthostasis, and retrograde ejaculation. Return to the clinic or seek care at [facility] for any worsening signs or symptoms: such as fevers, chills, worsening pain, gross blood in urine or worsening urinary symptoms. For severe symptoms seek care at the closest ER. Plan of care, medicaiton side effects and management reviewed with patient. Healthy Habits: Recommend regular physical activity, nutrition and healthy eating habits. Consume a variety of foods every day focusing on fruits, vegetables and lean meats). Eat foods low in fat, saturated fat and cholesterol. Eat a limited amount of salt and sodium. Drink adequate amounts of water and limit sugary drinks. Exercise portion control in meal selection. Establish a mindset of a wellness approach to health. Thank you for allowing me to provide your care today. I look forward to seeing you again and maintaining your health. Maxi Cage APRN.SAMMY PRAJAPATI documented in this encounter [facility] 09-25-2023 History of Presen t illness Narrative [facility] MALE PATIENT - HISTORY AND PHYSICAL EXAMINATION PATIENT: Osvaldo Lucio (88 year old) 09/25/2023 PCP: Jeremi Morel MD New patient to Urology CHIEF COMPLAINT: BPH/LUTS HISTORY OF PRESENT ILLNESS: 88 year old year old male with BPH/LUTS. Main complaint is urinary frequency. 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 Recently treated for UTI. First started on Keflex, then changed to Macrobid and Cipro. UC + for E coli. Has one pill left of Cipro. Symptoms have greatly improved with antibiotics. Hx of BPH: Recently PCP increased Flomax to 0.8mg. URINARY: DAYTIME FREQUENCY: Every 3 hours NIGHTTIME FREQUENCY: 0 IRRITATIVE - BOTHERSOME FREQUENCY: Yes - URGENCY: Yes - INCONTINENCE: Stress No / Urge Yes OBSTRUCTIVE - FORCE OF STREAM: Average - HESITANCY: No - INTERMITTENCY: No - STRAINING: No - INCOMPLETE EMPTYING: Yes - DOUBLE VOIDING: No - POSTVOID DRIBBLING: No CURRENT URINARY STATUS: - INDWELLING CATHETER: No - CURRENT INTERMITTENT CATHETERIZATION: No - GROSS HEMATURIA: No - URINARY TRACT INFECTION: Yes Patient Entered Questionnaires: INTERNATIONAL PROSTATE SYMPTOM SCORE (I-PSS): OVER THE PAST FEW WEEKS. 1)INCOMPLETE EMPTYING Over the past month, how often have you had a sensation of not emptying your bladder completely after you finished urinating? SCORE: 0- Not at all 2)FREQUENCY Over the past month, how often have you had to urinate again less than two hours after you finished urinating? SCORE: 5- Almost always 3)INTERMITTENCY Over the past month, how often have you found you stopped and started again several times when you urinated? SCORE: 5- Almost always 4)URGENCY Over the past month, how often have you found it difficult to postpone urination? SCORE: 4- More than half the time 5)WEAK STREAM Over the past month, how often have you had a weak stream? SCORE: 4- More than half the time 6)STRAINING Over the past month, how often have you had to push or strain to begin urination SCORE: 2- less than half the time 7)NOCTURIA Over the past month, how many times did you most typically get up to urinate from the time you went to bed at night until the time you get up in the morning? SCORE:0 TOTAL I-PSS SCORE: 22 QUALITY OF LIFE DUE TO URINARY SYMPTOMS If you were to spend the rest of yur life with your urinary condition just the way it is now, how would you feel about that? 6- Terrible PROMIS Global Health PROMIS Global Health Scale 06/06/2017 Physical Health Percentile 41 % Mental Health Percentile 43 % Percentiles provide an indication of how the patient's score ranks in relation to the general population. Higher percentile rankings indicate better function/quality of life. 50th percentile is the average of the general population and indicates half of respondents had a worse score. 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 He has since 2006 had A1C values in the 5.7-6.1 range and is on medications and does follow any dietary regime. Two times in 2008, the value was 6.5 and 6.8%. I discussed this with him and will change to impaired glucose. 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 ARTHRP ACETBLR/PROX FEM PROSTC AGRFT/ALGRFT 02/14/2012 Hip replacement, total Dr Berry CABG (2) VEIN GRAFTS & ARTERIAL GRAFT(S 01/03/2019 CORONARY ARTERY BYPASS GRAFTS X USING THE LEFT INTERNAL MAMMARY ARTERY AND THE LEFT CARDIAC CATH 10/31/2018 OPTX ANKLE DISLOCATION W/REPAIR/INT/XTRNL FIXJ 1991 ORIF Ankle right [facility] REPLACEMENT, AORTIC VALVE, WITH CAR 01/03/2019 Social History Tobacco Use Smoking status: Former Types: Cigars Quit date: 12/07/2001 Years since quittin.8 Smokeless tobacco: Never Vaping Use Vaping Use: Never used Substance Use Topics Alcohol use: Not Currently Comment: Quit Drug use: Never FAMILY HISTORY Problem Relation Age of Onset Stroke Father brain aneurysm MEDICATIONS: Current Outpatient Medications Medication Sig clonazePAM (KLONOPIN) 0.5 mg tablet Take 0.5 mg by mouth once daily as needed. doxepin capsule 25 mg Take 1 capsule by mouth every afternoon. busPIRone (BUSPAR) 15 mg tablet Take 1 tablet by mouth every 12 hours. tamsulosin (FLOMAX) 0.4 mg Take 2 capsules by mouth once daily. Lancets lancets Test blood sugar(s) 2 times daily. Dx: Type 2 DM - Uncontrolled E11.65 Insulin: No blood sugar diagnostic (BLOOD GLUCOSE TEST) test strip Test blood sugar(s) 2 times daily. Dx: Type 2 DM - Uncontrolled E11.65 Insulin: No mirtazapine (REMERON) 15 mg tablet Take 1 tablet by mouth daily at bedtime. furosemide (LASIX) 40 mg tablet Take 1 tablet by mouth once daily. [facility]. melatonin 5 mg tablet Take 1 tablet by mouth daily at bedtime. amLODIPine (NORVASC) 10 mg tablet Take 1 tablet by mouth once daily. insulin 50/50 lispro protamine/lispro units/mL (HUMALOG MIX 50-50 KWIKPEN) 100 unit/mL (50-50) inpn Inject 32 units in the morning and 30 units in the evenings with meals (Patient taking differently: Inject 30 units in the morning and 28 Units in the evenings with meals) lisinopril (ZESTRIL, PRINIVIL) 20 mg tablet Take 1 tablet by mouth twice daily. metoprolol tartrate, short acting, (LOPRESSOR) 25 mg tablet Take 0.5 tablets by mouth twice daily. busPIRone (BUSPAR) 10 mg tablet Take 1 tablet by mouth twice daily. ferrous sulfate 325 mg (65 mg iron) tablet Take 325 mg by mouth twice daily. multivitamin with minerals (MULTI-VITAMIN W/MINERALS ORAL) Take 1 tablet by mouth once daily. apixaban (ELIQUIS) 2.5 mg tab tab(s) Take 1 tablet by mouth twice daily. atorvastatin (LIPITOR) 40 mg tablet Take 1 tablet by mouth once daily. nitrofurantoin monohydrate and macrocrystal (MACROBID) 100 mg capsule Take 1 capsule by mouth two times a day with meals. glimepiride (AMARYL) 2 mg tablet Take 1 tablet by mouth daily with breakfast. (Patient not taking: Reported on 09/25/2023) vit A,C,T-Ptfu-Ffwplm (PRESERVISION AREDS) 7,160-113-100 jcfh-xz-qqmp tab Take 1 tablet by mouth twice daily with meals. (Patient not taking: Reported on 09/25/2023) No current facility-administered medications for this visit. LABS: No results found for this basename: uglucpoc,ubilipoc,uketonpoc,usg poc,uhbpoc,uphpoc,upropoc,uurop oc,unitpoc,uwbcpoc,ucolpoc,ucla rpoc OTHER DATA: Creatinine Creatinine Date Value Ref Range Status 10/17/2022 1.31 (H) 0.73 - 1.22 mg/dL Final 05/01/2020 0.76 0.73 - 1.22 mg/dL Final 02/01/2019 1.17 0.73 - 1.22 mg/dL Final 10/22/2018 1.29 (H) 0.73 - 1.22 mg/dL Final PSA No results found for: PSA OFFICE DATA: POST-VOID RESIDUAL BLADDER VOLUME: YES, 267 cc Review of Systems: PAIN ASSESSMENT: CURRENTLY HAVING NO PAIN GENERAL: No weight loss, malaise or fevers GI: No nausea, vomiting MUSCULOSKELETAL: Negative for generalized joint pain SKIN: Negative for rash HEMATOLOGY/LYMPHOLOGY: Negative for swollen nodes All other systems reviewed and noncontributory PHYSICAL EXAMINATION: VITALS: BP 138/62 (BP Site: Left Arm, BP Position: Sitting, BP Cuff Size: Regular Adult) Pulse 84 Temp 36.3 C (97.4 F) (Temporal) Resp 16 Ht 172.7 cm (5' 8 ) Wt 90 kg (198 lb 6.4 oz) SpO2 98% BMI 30.17 kg/m GENERAL: alert, no distress, normal affect CARDIAC: normal RESPIRATORY: normal effort ABDOMEN: soft, non-tender GENITAL: - PENIS: circumcised, no penile plaques, no skin lesions - SCROTUM: no rashes, no masses, no edema - TESTES: nl size, nl consistency, no mass RECTAL: approximately 65 g prostate, NO nodules PELVIC FLOOR: GOOD tone, NO tenderness EXTREMITIES: normal SKIN: normal NEUROLOGIC: normal ASSESSMENT/PLAN: 1. Benign prostatic hyperplasia with urinary frequency - ICD9: 600.01, 788.41, ICD10: N40.1, R35.0 (primary diagnosis) MDM: Chronic, fair control. Worse control with his most recent UTI. Treated with two rounds of antibiotics. Sxm have improved. PCP increased Flomax to 0.8mg. PVR = 267 ml. Unable to provide a urine sample. Denies being in AUR. No pain. Abd soft. Overall feeling well today. No f/c/n/v. Plan: Cont with Flomax follow up in 8 weeks Recheck PVR. If PVR high consider adding Proscar. RTC for any UTI symptoms. - POST VOID RESIDUAL 2. Frequency of urination - ICD9: 788.41, ICD10: R35.0 Related to most recent UTI. UTI symptoms improved. Cont to monitor. - UA DIP, URINE (POC) 3. Screening for genitourinary condition - ICD9: V81.6, ICD10: Z13.89 PVR = 267 ml Unable to provide a urine sample. Denies being in AUR. No pain. Abd soft. - UA DIP, URINE (POC) Consultation requested by Dr. Jeremi Morel [address] [facility] [id number] for an opinion regarding urinary freq and UTI and my final recommendations will be communicated back to the requesting physician by way of shared Medical record or letter via US mail. I spent a total of 42 minutes on the date of the service which included preparing to see the patient, [id number] patient care, completing clinical documentation, performing a medically appropriate examination, counseling and educating the patient/family/caregiver and ordering medications, tests, or procedures. Maxi Cage DNP, ALO Department of Urology [facility] Verified name and date of . CC Post Void Residual HPI: Osvaldo Lucio is a 88 year old male. The patient is here now for an appointment with JAGDISH Mcdonald, [place], PA-COV. Procedure: Explained procedure to patient and verbalizes understanding. Performed a PVR. PATIENT UNABLE TO URINATE AT THIS TIME. . Results of scan: 267 mL The patient tolerated the procedure well. Plan: Appointment with Landon. documented in this encounter [facility] 08-28-2023 Note HNO ID: [id number] Author: Jeremi Morel MD Service: ? Author Type: Physician Type: Progress Notes Filed: 08/28/2023 3:38 PM Note Text: This note was created using Mitokyneter. Subjective Patient presents with: UTI Osvaldo Lucio is a 88 year old male here with a caregiver. He started having urinary frequency around one weeks ago with incomplete emptying. [facility] and was [facility] Cephalexin with no improvement. [facility] to the [facility] and urine culture was done. He was prescribed cephalexin for 30 days. He was called the next day to stop cephalexin and start nitrofurantoin x 7 days. Urine culture showed insignificant E. Fecalis. Review of Systems Constitutional: Negative for chills, fever and unexpected weight change. Gastrointestinal: Negative for abdominal pain, constipation and diarrhea. Genitourinary: Positive for decreased urine volume and frequency. Negative for difficulty urinating, dysuria, flank pain and hematuria. ACTIVE PROBLEM LIST Essential Hypertension Hyperlipidemia Bipolar Disorder, Unspecified (Hcc) Mitral Regurgitation Type 2 Diabetes Mellitus With Stage 3 Chronic Kidney Disease, With Long-Term Current Use of Insulin (Hcc) Vitamin D Deficiency Spondylosis of Lumbar Region Without Myelopathy Or Radiculopathy S/P Cabg X 2 Aortic Valve Replaced Paroxysmal Atrial Fibrillation (Hcc) Acute On Chronic Diastolic (Congestive) Heart Failure (Hcc) Bph With Urinary Obstruction Obesity, Class I, Bmi 30-34.9 Personal History of Skin Cancer Current Outpatient Medications Medication Sig amLODIPine (NORVASC) 10 mg tablet Take 1 tablet by mouth once daily. apixaban (ELIQUIS) 2.5 mg tab tab(s) Take 1 tablet by mouth twice daily. atorvastatin (LIPITOR) 40 mg tablet Take 1 tablet by mouth once daily. blood sugar diagnostic (BLOOD GLUCOSE TEST) test strip Test blood sugar(s) 2 times daily. Dx: Type 2 DM - Uncontrolled E11.65 Insulin: No busPIRone (BUSPAR) 10 mg tablet Take 1 tablet by mouth twice daily. ferrous sulfate 325 mg (65 mg iron) tablet Take 325 mg by mouth twice daily. furosemide (LASIX) 40 mg tablet Take 1 tablet by mouth once daily. [facility]. glimepiride (AMARYL) 2 mg tablet Take 1 tablet by mouth daily with breakfast. insulin 50/50 lispro protamine/lispro units/mL (HUMALOG MIX 50-50 KWIKPEN) 100 unit/mL (50-50) inpn Inject 32 units in the morning and 30 units in the evenings with meals Lancets lancets Test blood sugar(s) 2 times daily. Dx: Type 2 DM - Uncontrolled E11.65 Insulin: No lisinopril (ZESTRIL, PRINIVIL) 20 mg tablet Take 1 tablet by mouth twice daily. melatonin 5 mg tablet Take 1 tablet by mouth daily at bedtime. metoprolol tartrate, short acting, (LOPRESSOR) 25 mg tablet Take 0.5 tablets by mouth twice daily. mirtazapine (REMERON) 15 mg tablet Take 1 tablet by mouth daily at bedtime. multivitamin with minerals (MULTI-VITAMIN W/MINERALS ORAL) Take 1 tablet by mouth once daily. nitrofurantoin monohydrate and macrocrystal (MACROBID) 100 mg capsule Take 1 capsule by mouth two times a day with meals. tamsulosin (FLOMAX) 0.4 mg Take 1 capsule by mouth once daily. vit A,C,J-Iqay-Nithcp (PRESERVISION AREDS) 7,160-113-100 yoaw-gg-pkne tab Take 1 tablet by mouth twice daily with meals. No current facility-administered medications for this visit. Objective BP 138/60 Pulse 74 Resp 16 Wt 86.6 kg (191 lb) BMI 28.21 kg/m? Physical Exam Constitutional: General: He is not in acute distress. Appearance: He is not ill-appearing or diaphoretic. Pulmonary: Effort: Pulmonary effort is normal. Breath sounds: Normal breath sounds. Abdominal: General: There is no distension. Palpations: Abdomen is soft. Tenderness: There is no abdominal tenderness. There is no right CVA tenderness or left CVA tenderness. Neurological: Mental Status: He is alert. He was unable to provide a urine sample. Assessment and Plan 1. Dysuria - ICD9: 788.1, ICD10: R30.0 (primary diagnosis) acute - UA DIP, URINE (POC) - NITROFURANTOIN MONOHYDRATE AND MACROCRYSTAL 100 MG ORAL CAP 2. BPH with urinary obstruction - ICD9: 600.01, 599.69, ICD10: N40.1, N13.8 Increase the dose of tamsulosin to 0.8 mg at bed time. - TAMSULOSIN 0.4 MG CAPSULE - CONSULT TO UROLOGY 3. Frequency of urination - ICD9: 788.41, ICD10: R35.0 acute - CONSULT TO UROLOGY Patient indicated understanding and willingness to follow recommendations. Jeremi Morel MD [facility] 08-28-2023 History of Presen t illness Narrative This note was created using ProspectStreamriter. Subjective Patient presents with: UTI Osvaldo Lucio is a 88 year old male here with a caregiver. He started having urinary frequency around one weeks ago with incomplete emptying. [facility] and was prescribed Cephalexin with no improvement. [facility] to the [facility] and urine culture was done. He was prescribed cephalexin for 30 days. He was called the next day to stop cephalexin and start nitrofurantoin x 7 days. Urine culture showed insignificant E. Fecalis. Review of Systems Constitutional: Negative for chills, fever and unexpected weight change. Gastrointestinal: Negative for abdominal pain, constipation and diarrhea. Genitourinary: Positive for decreased urine volume and frequency. Negative for difficulty urinating, dysuria, flank pain and hematuria. 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 apixaban (ELIQUIS) 2.5 mg tab tab(s) Take 1 tablet by mouth twice daily. atorvastatin (LIPITOR) 40 mg tablet Take 1 tablet by mouth once daily. blood sugar diagnostic (BLOOD GLUCOSE TEST) test strip Test blood sugar(s) 2 times daily. Dx: Type 2 DM - Uncontrolled E11.65 Insulin: No busPIRone (BUSPAR) 10 mg tablet Take 1 tablet by mouth twice daily. ferrous sulfate 325 mg (65 mg iron) tablet Take 325 mg by mouth twice daily. furosemide (LASIX) 40 mg tablet Take 1 tablet by mouth once daily. [facility]. glimepiride (AMARYL) 2 mg tablet Take 1 tablet by mouth daily with breakfast. insulin 50/50 lispro protamine/lispro units/mL (HUMALOG MIX 50-50 KWIKPEN) 100 unit/mL (50-50) inpn Inject 32 units in the morning and 30 units in the evenings with meals Lancets lancets Test blood sugar(s) 2 times daily. Dx: Type 2 DM - Uncontrolled E11.65 Insulin: No lisinopril (ZESTRIL, PRINIVIL) 20 mg tablet Take 1 tablet by mouth twice daily. melatonin 5 mg tablet Take 1 tablet by mouth daily at bedtime. metoprolol tartrate, short acting, (LOPRESSOR) 25 mg tablet Take 0.5 tablets by mouth twice daily. mirtazapine (REMERON) 15 mg tablet Take 1 tablet by mouth daily at bedtime. multivitamin with minerals (MULTI-VITAMIN W/MINERALS ORAL) Take 1 tablet by mouth once daily. nitrofurantoin monohydrate and macrocrystal (MACROBID) 100 mg capsule Take 1 capsule by mouth two times a day with meals. tamsulosin (FLOMAX) 0.4 mg Take 1 capsule by mouth once daily. vit A,C,N-Huqd-Scuute (PRESERVISION AREDS) 7,160-113-100 qshp-hi-ufic tab Take 1 tablet by mouth twice daily with meals. No current facility-administered medications for this visit. Objective BP 138/60 Pulse 74 Resp 16 Wt 86.6 kg (191 lb) BMI 28.21 kg/m Physical Exam Constitutional: General: He is not in acute distress. Appearance: He is not ill-appearing or diaphoretic. Pulmonary: Effort: Pulmonary effort is normal. Breath sounds: Normal breath sounds. Abdominal: General: There is no distension. Palpations: Abdomen is soft. Tenderness: There is no abdominal tenderness. There is no right CVA tenderness or left CVA tenderness. Neurological: Mental Status: He is alert. He was unable to provide a urine sample. Assessment and Plan 1. Dysuria - ICD9: 788.1, ICD10: R30.0 (primary diagnosis) acute - UA DIP, URINE (POC) - NITROFURANTOIN MONOHYDRATE & MACROCRYSTAL 100 MG ORAL CAP 2. BPH with urinary obstruction - ICD9: 600.01, 599.69, ICD10: N40.1, N13.8 Increase the dose of tamsulosin to 0.8 mg at bed time. - TAMSULOSIN 0.4 MG CAPSULE - CONSULT TO UROLOGY 3. Frequency of urination - ICD9: 788.41, ICD10: R35.0 acute - CONSULT TO UROLOGY Patient indicated understanding and willingness to follow recommendations. Jeremi Morel MD documented in this encounter [facility] 07-26-2023 Miscellaneous Notes Patient has been identified by name and date of : Yes Patient phones for refill(s): Requested Prescriptions Pending Prescriptions Disp Refills Lancets lancets 200 Each 3 Sig: Test blood sugar(s) 2 times daily. Dx: Type 2 DM - Uncontrolled E11.65 Insulin: No Date of last office visit in primary care: 05/05/2023 Annual: Last 2 Encounter Wt Readings: Date: Wt: 05/05/2023 91.2 kg (201 lb) 01/31/2023 93 kg (205 lb) Previous labs/tests for medication: Diabetes: Hemoglobin A1C Date Value 08/24/2021 6.5 05/01/2020 11.8 % 03/28/2018 6.7 % Hemoglobin A1C (POCT) (%) Date Value 09/17/2020 6.9 02/11/2019 5.8 Please advise. Thank you. Khadra Madison LPN Patient has been identified by name and date of : Yes Requested Prescriptions Pending Prescriptions Disp Refills Lancets lancets 200 Each 3 Sig: Test blood sugar(s) 2 times daily. Dx: Type 2 DM - Uncontrolled E11.65 Insulin: No RX INSTRUCTIONS: Patient aware RX will be sent to pharmacy. No need to notify patient. Addis Sanchez Pss documented in this encounter [facility] 05-05-2023 Note HNO ID: [id number] Author: Jeremi Morel MD Service: ? Author Type: Physician Type: Progress Notes Filed: 05/05/2023 9:43 AM Note Text: This note was created using Mitokyneter. Subjective Osvaldo Lucio is a 87 year old male. He felt well. His home BP readings were at goal when checked by home provider. Office BP readings were historically elevated even with his cardiology visits. His only concern was a rash of his right flank and right thigh for 2 weeks. Over the counter cooling lotion helped. He was not aware of any change in his soaps or detergents. I prescribed sertraline for his mood disorder. [facility] and s[facility]ine was discontinued. Mirtazapine was started. Doxepin was being weaned off. Most of [facility] medications [facility] from [facility], [facility], and [facility]. We refill only Tamsulosin. Review of Systems Constitutional: Negative for activity change, appetite change and unexpected weight change. Respiratory: Negative for shortness of breath. Cardiovascular: Negative for chest pain, palpitations and leg swelling. Gastrointestinal: Negative for abdominal pain. Genitourinary: Negative for difficulty urinating. Skin: Positive for rash. 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 furosemide (LASIX) 40 mg tablet Take 1 tablet by mouth once daily. [facility]. blood sugar diagnostic (BLOOD GLUCOSE TEST) test strip Test blood sugar(s) 2 times daily. Dx: Type 2 DM - Uncontrolled E11.65 Insulin: No Lancets lancets Test blood sugar(s) 2 times daily. Dx: Type 2 DM - Uncontrolled E11.65 Insulin: No melatonin 5 mg tablet Take 1 tablet by mouth daily at bedtime. amLODIPine (NORVASC) 10 mg tablet Take 1 tablet by mouth once daily. insulin 50/50 lispro protamine/lispro units/mL (HUMALOG MIX 50-50 KWIKPEN) 100 unit/mL (50-50) inpn Inject 32 units in the morning and 30 units in the evenings with meals lisinopril (ZESTRIL, PRINIVIL) 20 mg tablet Take 1 tablet by mouth twice daily. metoprolol tartrate, short acting, (LOPRESSOR) 25 mg tablet Take 0.5 tablets by mouth twice daily. glimepiride (AMARYL) 4 mg tablet Take 1 tablet by mouth daily with breakfast. doxepin capsule 75 mg Take 1 capsule by mouth daily at bedtime. busPIRone (BUSPAR) 10 mg tablet Take 1 tablet by mouth twice daily. ferrous sulfate 325 mg (65 mg iron) tablet Take 325 mg by mouth twice daily. multivitamin with minerals (MULTI-VITAMIN W/MINERALS ORAL) Take 1 tablet by mouth once daily. apixaban (ELIQUIS) 2.5 mg tab tab(s) Take 1 tablet by mouth twice daily. atorvastatin (LIPITOR) 40 mg tablet Take 1 tablet by mouth once daily. vit A,C,X-Fird-Tigplj (PRESERVISION AREDS) 7,160-113-100 pqjs-dc-ymaq tab Take 1 tablet by mouth twice daily with meals. sertraline (ZOLOFT) 50 mg tablet Take 1 tablet by mouth every evening. (Patient not taking: Reported on 05/05/2023) No current facility-administered medications for this visit. Objective BP 166/68 Pulse 76 Resp 18 Wt 91.2 kg (201 lb) BMI 29.68 kg/m? Physical Exam Constitutional: Appearance: He is not ill-appearing. Cardiovascular: Rate and Rhythm: Normal rate and regular rhythm. Heart sounds: No murmur heard. No gallop. Pulmonary: Breath sounds: Normal breath sounds. Musculoskeletal: Right lower leg: No edema. Left lower leg: No edema. Skin: Findings: Rash present. Comments: Hand sized erythematous maculopapular patch of the right flank and similar patch of the right thigh. No vesicles. Neurological: Mental Status: He is alert. Reviewed last cardiology and endocrinology non [facility] notes. Assessment and Plan 1. Essential hypertension - ICD9: 401.9, ICD10: I10 (primary diagnosis) White coat syndrome with hypertension. - Continue current medications 2. Aortic valve replaced - ICD9: V43.3, ICD10: Z95.2 Stable. 3. S/P CABG x 2 - ICD9: V45.81, ICD10: Z95.1 Stable. 4. Paroxysmal atrial fibrillation (HCC) - ICD9: 427.31, ICD10: I48.0 Anticoagulated. 5. Acute on chronic diastolic (congestive) heart failure (HCC) - ICD9: 428.3 (more content not included)... [facility] 05-05-2023 History of Presen t illness Narrative This note was created using ProspectStreamriter. Subjective Osvaldo Lucio is a 87 year old male. He felt well. His home BP readings were at goal when checked by home provider. Office BP readings were historically elevated even with his cardiology visits. His only concern was a rash of his right flank and right thigh for 2 weeks. Over the counter cooling lotion helped. He was not aware of any change in his soaps or detergents. I prescribed sertraline for his mood disorder. [facility] and sertraline was discontinued. Mirtazapine was started. Doxepin was being weaned off. [facility] medications are from [facility], [facility], and the [facility]. We refill only Tamsulosin. Review of Systems Constitutional: Negative for activity change, appetite change and unexpected weight change. Respiratory: Negative for shortness of breath. Cardiovascular: Negative for chest pain, palpitations and leg swelling. Gastrointestinal: Negative for abdominal pain. Genitourinary: Negative for difficulty urinating. Skin: Positive for rash. 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 furosemide (LASIX) 40 mg tablet Take 1 tablet by mouth once daily. [facility]. blood sugar diagnostic (BLOOD GLUCOSE TEST) test strip Test blood sugar(s) 2 times daily. Dx: Type 2 DM - Uncontrolled E11.65 Insulin: No Lancets lancets Test blood sugar(s) 2 times daily. Dx: Type 2 DM - Uncontrolled E11.65 Insulin: No melatonin 5 mg tablet Take 1 tablet by mouth daily at bedtime. amLODIPine (NORVASC) 10 mg tablet Take 1 tablet by mouth once daily. insulin 50/50 lispro protamine/lispro units/mL (HUMALOG MIX 50-50 KWIKPEN) 100 unit/mL (50-50) inpn Inject 32 units in the morning and 30 units in the evenings with meals lisinopril (ZESTRIL, PRINIVIL) 20 mg tablet Take 1 tablet by mouth twice daily. metoprolol tartrate, short acting, (LOPRESSOR) 25 mg tablet Take 0.5 tablets by mouth twice daily. glimepiride (AMARYL) 4 mg tablet Take 1 tablet by mouth daily with breakfast. doxepin capsule 75 mg Take 1 capsule by mouth daily at bedtime. busPIRone (BUSPAR) 10 mg tablet Take 1 tablet by mouth twice daily. ferrous sulfate 325 mg (65 mg iron) tablet Take 325 mg by mouth twice daily. multivitamin with minerals (MULTI-VITAMIN W/MINERALS ORAL) Take 1 tablet by mouth once daily. apixaban (ELIQUIS) 2.5 mg tab tab(s) Take 1 tablet by mouth twice daily. atorvastatin (LIPITOR) 40 mg tablet Take 1 tablet by mouth once daily. vit A,C,N-Anlw-Wdylkf (PRESERVISION AREDS) 7,160-113-100 bkol-cy-iymp tab Take 1 tablet by mouth twice daily with meals. sertraline (ZOLOFT) 50 mg tablet Take 1 tablet by mouth every evening. (Patient not taking: Reported on 05/05/2023) No current facility-administered medications for this visit. Objective BP 166/68 Pulse 76 Resp 18 Wt 91.2 kg (201 lb) BMI 29.68 kg/m Physical Exam Constitutional: Appearance: He is not ill-appearing. Cardiovascular: Rate and Rhythm: Normal rate and regular rhythm. Heart sounds: No murmur heard. No gallop. Pulmonary: Breath sounds: Normal breath sounds. Musculoskeletal: Right lower leg: No edema. Left lower leg: No edema. Skin: Findings: Rash present. Comments: Hand sized erythematous maculopapular patch of the right flank and similar patch of the right thigh. No vesicles. Neurological: Mental Status: He is alert. Reviewed last cardiology and endocrinology non [facility] notes. Assessment and Plan 1. Essential hypertension - ICD9: 401.9, ICD10: I10 (primary diagnosis) White coat syndrome with hypertension. - Continue current medications 2. Aortic valve replaced - ICD9: V43.3, ICD10: Z95.2 Stable. 3. S/P CABG x 2 - ICD9: V45.81, ICD10: Z95.1 Stable. 4. Paroxysmal atrial fibrillation (HCC) - ICD9: 427.31, ICD10: I48.0 Anticoagulated. 5. Acute on chronic diastolic (congestive) heart failure (HCC) - ICD9: 428.33, 428.0, ICD10: I50.33 Stable. 6. Hyperlipidemia, unspecified hyperlipidemia type - ICD9: 272.4, ICD10: E78.5 - Control undetermined, due for labs 7. Type 2 diabetes mellitus with stage 3a chronic kidney disease, with long-term current use of insulin (HCC) - ICD9: 250.40, 585.3, V58.67, ICD10: E11.22, N18.31, Z79.4 - Controlled - Medication list updated. 8. Rash and nonspecific skin eruption - ICD9: 782.1, ICD10: R21 Dermatitis. - MOMETASONE 0.1 % TOPICAL CREAM 9. Bipolar affective disorder, remission status unspecified (HCC) - ICD9: 296.80, ICD10: F31.9 Medication list updated. Jeremi Morel MD documented in this encounter [facility] 04-17-2023 Miscellaneous Notes KAT: 01/31/2023 Last refill: 04/22/2022 QTY: 90 Refills: 3 Patient has been identified by name and date of : Yes Requested Prescriptions Pending Prescriptions Disp Refills tamsulosin (FLOMAX) 0.4 mg 90 capsule 3 Sig: Take 1 capsule by mouth once daily. RX INSTRUCTIONS: Patient aware RX will be sent to pharmacy. No need to notify patient. Anika Narvaez Pss documented in this encounter [facility] 01-31-2023 Note HNO ID: [id number] Author: Jeremi Morel MD Service: ? Author Type: Physician Type: Progress Notes Filed: 01/31/2023 9:37 AM Note Text: This note was created using [employer]Streamriter. Subjective Osvaldo Lucio is a 87 year old male. He complained of increased depression, insomnia, and loss of appetite for the past several weeks. [facility] and was taking his medications. He was not scheduled to follow up there for 5 or 6 months. His hypertension was elevated today, but historically controlled. [facility] to see [facility] 2 [facility]. Other than tamsulosin, all his medications are from his specialists. He sees Dr. Garcia for podiatry care regularly. Review of Systems Constitutional: Positive for appetite change and unexpected weight change. Negative for chills and fever. HENT: Negative. Eyes: Negative. Respiratory: Negative for chest tightness and shortness of breath. Cardiovascular: Negative for chest pain, palpitations and leg swelling. Gastrointestinal: Negative for constipation, diarrhea, nausea and vomiting. Genitourinary: Negative. Neurological: Negative. Psychiatric/Behavioral: Positive for dysphoric mood and sleep disturbance. Negative for self-injury and suicidal ideas. 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 [facility]. blood sugar diagnostic (BLOOD GLUCOSE TEST) test strip Test blood sugar(s) 2 times daily. Dx: Type 2 DM - Uncontrolled E11.65 Insulin: No tamsulosin (FLOMAX) 0.4 mg Take 1 capsule by mouth once daily. Lancets lancets Test blood sugar(s) 2 times daily. Dx: Type 2 DM - Uncontrolled E11.65 Insulin: No melatonin 5 mg tablet Take 1 tablet by mouth daily at bedtime. amLODIPine (NORVASC) 10 mg tablet Take 1 tablet by mouth once daily. insulin 50/50 lispro protamine/lispro units/mL (HUMALOG MIX 50-50 KWIKPEN) 100 unit/mL (50-50) inpn Inject 32 units in the morning and 30 units in the evenings with meals lisinopril (ZESTRIL, PRINIVIL) 20 mg tablet Take 1 tablet by mouth twice daily. metoprolol tartrate, short acting, (LOPRESSOR) 25 mg tablet Take 0.5 tablets by mouth twice daily. glimepiride (AMARYL) 4 mg tablet Take 1 tablet by mouth daily with breakfast. doxepin capsule 75 mg Take 1 capsule by mouth daily at bedtime. busPIRone (BUSPAR) 10 mg tablet Take 1 tablet by mouth twice daily. ferrous sulfate 325 mg (65 mg iron) tablet Take 325 mg by mouth twice daily. multivitamin with minerals (MULTI-VITAMIN W/MINERALS ORAL) Take 1 tablet by mouth once daily. apixaban (ELIQUIS) 2.5 mg tab tab(s) Take 1 tablet by mouth twice daily. atorvastatin (LIPITOR) 40 mg tablet Take 1 tablet by mouth once daily. vit A,C,I-Hgsl-Gjbnpq (PRESERVISION AREDS) 7,160-113-100 mipo-la-nkpr tab Take 1 tablet by mouth twice daily with meals. No current facility-administered medications for this visit. Objective BP 153/66 (BP Site: Left Arm, BP Position: Sitting, BP Cuff Size: Large Adult) Pulse 60 Resp 16 Wt 93 kg (205 lb) BMI 30.27 kg/m? Physical Exam Constitutional: General: He is not in acute distress. Appearance: He is not ill-appearing or diaphoretic. Eyes: General: No scleral icterus. Conjunctiva/sclera: Conjunctivae normal. Cardiovascular: Rate and Rhythm: Normal rate and regular rhythm. Heart sounds: No murmur heard. No gallop. Pulmonary: Effort: Pulmonary effort is normal. Breath sounds: Normal breath sounds. Abdominal: Palpations: Abdomen is soft. Tenderness: There is no abdominal tenderness. Musculoskeletal: Right lower leg: No edema. Left lower leg: No edema. Neurological: Mental Status: He is alert. Psychiatric: Attention and Perception: Attention normal. Mood and Affect: Mood is depressed. Speech: Speech normal. Behavior: Behavior normal. Thought Content: Thought content normal. Feet:Shoes and socks removed, No ulcers, calluses, abnormal pulses Decreased bilaterally, sensitive to 10 gm monofilament, and nails notable for Deformed or Hypertrophic. Pes planus. Hammertoes. Depression Screening 06/06/2017 (more content not included)... [facility] 01-31-2023 Instructions Jeremi Morel MD - 01/31/2023 9:18 AM EDT TRY SERTRALINE. CALL FOR REFILL IF EFFECTIVE AND UNABLE TO SEE [facility] PROVIDER. SCHEDULE SOONER APPOINTMENT WITH [facility]. documented in this encounter [facility] 01-31-2023 History of Presen t illness Narrative This note was created using Mitokyneter. Subjective Osvaldo Lucio is a 87 year old male. He complained of increased depression, insomnia, and loss of appetite for the past several weeks. [facility] and was taking his medications. He was not scheduled to follow up there for 5 or 6 months. His hypertension was elevated today, but historically controlled. [facility]. Other than tamsulosin, all his medications are from his specialists. He sees Dr. Garcia for podiatry care regularly. Review of Systems Constitutional: Positive for appetite change and unexpected weight change. Negative for chills and fever. HENT: Negative. Eyes: Negative. Respiratory: Negative for chest tightness and shortness of breath. Cardiovascular: Negative for chest pain, palpitations and leg swelling. Gastrointestinal: Negative for constipation, diarrhea, nausea and vomiting. Genitourinary: Negative. Neurological: Negative. Psychiatric/Behavioral: Positive for dysphoric mood and sleep disturbance. Negative for self-injury and suicidal ideas. 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 [facility]. blood sugar diagnostic (BLOOD GLUCOSE TEST) test strip Test blood sugar(s) 2 times daily. Dx: Type 2 DM - Uncontrolled E11.65 Insulin: No tamsulosin (FLOMAX) 0.4 mg Take 1 capsule by mouth once daily. Lancets lancets Test blood sugar(s) 2 times daily. Dx: Type 2 DM - Uncontrolled E11.65 Insulin: No melatonin 5 mg tablet Take 1 tablet by mouth daily at bedtime. amLODIPine (NORVASC) 10 mg tablet Take 1 tablet by mouth once daily. insulin 50/50 lispro protamine/lispro units/mL (HUMALOG MIX 50-50 KWIKPEN) 100 unit/mL (50-50) inpn Inject 32 units in the morning and 30 units in the evenings with meals lisinopril (ZESTRIL, PRINIVIL) 20 mg tablet Take 1 tablet by mouth twice daily. metoprolol tartrate, short acting, (LOPRESSOR) 25 mg tablet Take 0.5 tablets by mouth twice daily. glimepiride (AMARYL) 4 mg tablet Take 1 tablet by mouth daily with breakfast. doxepin capsule 75 mg Take 1 capsule by mouth daily at bedtime. busPIRone (BUSPAR) 10 mg tablet Take 1 tablet by mouth twice daily. ferrous sulfate 325 mg (65 mg iron) tablet Take 325 mg by mouth twice daily. multivitamin with minerals (MULTI-VITAMIN W/MINERALS ORAL) Take 1 tablet by mouth once daily. apixaban (ELIQUIS) 2.5 mg tab tab(s) Take 1 tablet by mouth twice daily. atorvastatin (LIPITOR) 40 mg tablet Take 1 tablet by mouth once daily. vit A,C,Y-Iqdt-Apmhfi (PRESERVISION AREDS) 7,160-113-100 ujkm-vg-uige tab Take 1 tablet by mouth twice daily with meals. No current facility-administered medications for this visit. Objective BP 153/66 (BP Site: Left Arm, BP Position: Sitting, BP Cuff Size: Large Adult) Pulse 60 Resp 16 Wt 93 kg (205 lb) BMI 30.27 kg/m Physical Exam Constitutional: General: He is not in acute distress. Appearance: He is not ill-appearing or diaphoretic. Eyes: General: No scleral icterus. Conjunctiva/sclera: Conjunctivae normal. Cardiovascular: Rate and Rhythm: Normal rate and regular rhythm. Heart sounds: No murmur heard. No gallop. Pulmonary: Effort: Pulmonary effort is normal. Breath sounds: Normal breath sounds. Abdominal: Palpations: Abdomen is soft. Tenderness: There is no abdominal tenderness. Musculoskeletal: Right lower leg: No edema. Left lower leg: No edema. Neurological: Mental Status: He is alert. Psychiatric: Attention and Perception: Attention normal. Mood and Affect: Mood is depressed. Speech: Speech normal. Behavior: Behavior normal. Thought Content: Thought content normal. Feet:Shoes and socks removed, No ulcers, calluses, abnormal pulses Decreased bilaterally, sensitive to 10 gm monofilament, and nails notable for Deformed or Hypertrophic. Pes planus. Hammertoes. Depression Screening 06/06/2017 09/06/2017 09/10/2018 01/31/2023 PHQ-2 Score - 0 0 6 MARY-2 Total Score 0 - - - Depression screening tool completed and reviewed. Based on score and interview, patient is already diagnosed with depression. Screening tool discussed with patient, and I recommended continuing current plan of care and starting medication. MARY-7 ANXIETY SCALE 01/31/2023 FEELING NERVOUS,ANXIOUS,OR ON EDGE 3 Nearly every day NOT BEING ABLE TO STOP OR CONTROL WORRYING 0 Not at all sure WORRYING TOO MUCH ABOUT DIFFERENT THINGS 0 Not at all sure TROUBLE RELAXING 3 Nearly every day BEING SO RESTLESS THAT IT'S HARD TO SIT STILL 3 Nearly every day BEING EASILY ANNOYED OR IRRITABLE 0 Not at all sure FEELING AFRAID IF SOMETHING AWFUL MIGHT HAPPEN 0 Not at all sure GAD7 SCORE 9 IF YOU CHECKED OFF ANY PROBLEMS Somewhat difficult CP PHQ9 01/31/2023 Little interest or pleasure 3 - Nearly every day Feeling down, depressed, hopeless 3 - Nearly every day Trouble falling or staying asleep, sleeping too much 3 - nearly every day Feeling tired, having little energy 3 - Nearly every day Poor appetite or overeating 3 - Nearly every day Feeling bad about yourself, failure or you have let yourself/family down 0 - Not at all Trouble concentrating on things 2 - More than half the days Moving or speaking so slowly, or fidgety or restless 0 - Not at all Thoughts that you would be better off , or of hurting yourself in some way 0 - Not at all How difficult have these problems made things Somewhat difficult Interpretation of Total Score 15-19 Moderately severe depression Assessment and Plan 1. Bipolar affective disorder, remission status unspecified (HCC) - ICD9: 296.80, ICD10: F31.9 (primary diagnosis) Shared Medical Decision Making was done: Medication: sertraline. Benefits: Medication may help mood in the short term and in the fpc. Risks: Possible side effects were discussed including worsening symptoms. Possible interactions: trazodone. Options: See Jim Valdivia CNP sooner. He preferred to try sertraline. If effective, [facility] will have [facility]. He can call for short term refill here till he sees his mental health provider. - SERTRALINE 50 MG TABLET 2. Type 2 diabetes mellitus with stage 3a chronic kidney disease, with long-term current use of insulin (HCC) - ICD9: 250.40, 585.3, V58.67, ICD10: E11.22, N18.31, Z79.4 Per [facility]. 3. Paroxysmal atrial fibrillation (HCC) - ICD9: 427.31, ICD10: I48.0 Controlled and managed by [facility]. 4. Essential hypertension - ICD9: 401.9, ICD10: I10 Elevated today. I will defer to the [facility]. Jeremi Morel MD documented in this encounter [facility] documented in this encounter [facility]03-10-2023 NoteHNO ID: [id number] Author: Ariadne Garcia APRN.OFFICE SUPPORT SPECIALIST Service: ? Author Type: Nurse Practitioner Type: Progress Notes Filed: 01/20/2023 8:59 AM Note Text: Subjective Fever Associated symptoms include congestion. Pertinent negatives include no chest pain, no diarrhea, no vomiting, no headaches, no sore throat and no cough. Osvaldo Lucio is a 87 year old male who presents with 3 weeks of sinus congestion and drainage and fatigue, has not been sleeping well at night due to nasal congestion. He has been intermittently sweating. He has taken tylenol at home. He denies cough, chest congestion, or shortness of breath. He is not having any pain today. Review of Systems Constitutional: Positive for fever. HENT: Positive for congestion. Negative for ear pain and sore throat. Respiratory: Negative for cough and shortness of breath. Cardiovascular: Negative for chest pain. Gastrointestinal: Negative for diarrhea, nausea and vomiting. Musculoskeletal: Negative for myalgias. Skin: Negative. Neurological: Negative for headaches. BP 110/60 Pulse 71 Temp 36.3 ?C (97.4 ?F) (Tympanic) Resp 16 Wt 94.8 kg (209 lb) SpO2 95% BMI 30.86 kg/m? PAST MEDICAL HISTORY Diagnosis Date Acute on chronic diastolic (congestive) heart failure (HCC) 05/27/2019 Aortic valve replaced 01/01/2019 Bipolar disorder, unspecified ([facility]) Chronic kidney disease (CKD), stage III (moderate) ([facility]) 03/12/2010 DM type 2 causing CKD stage 3 ([facility]) 07/30/2015 Essential hypertension Hyperlipidemia cholesterol 197 08/27/2012 [facility] Impaired glucose metabolism HGBA1C 6.1 08/27/2012 [facility]. He has since 2006 had A1C values in the 5.7-6.1 range and is on medications and does follow any dietary regime. Two times in 2008, the value was 6.5 and 6.8%. I discussed this with him and will change to impaired glucose. 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 ARTHRP ACETBLR/PROX FEM PROSTC AGRFT/ALGRFT 02/14/2012 Hip replacement, total Dr Berry CABG (2) VEIN GRAFTS AND ARTERIAL GRAFT(S 01/03/2019 CORONARY ARTERY BYPASS GRAFTS X USING THE LEFT INTERNAL MAMMARY ARTERY AND THE LEFT CARDIAC CATH 10/31/2018 OPTX ANKLE DISLOCATION W/REPAIR/INT/XTRNL FIXJ 1991 ORIF Ankle right [facility] REPLACEMENT, AORTIC VALVE, WITH CAR 01/03/2019 ALLERGIES Patient has no known allergies. MEDICATIONS furosemide (LASIX) 40 mg tablet Take 1 tablet by mouth once daily. [facility]. blood sugar diagnostic (BLOOD GLUCOSE TEST) test strip Test blood sugar(s) 2 times daily. Dx: Type 2 DM - Uncontrolled E11.65 Insulin: No tamsulosin (FLOMAX) 0.4 mg Take 1 capsule by mouth once daily. Lancets lancets Test blood sugar(s) 2 times daily. Dx: Type 2 DM - Uncontrolled E11.65 Insulin: No melatonin 5 mg tablet Take 1 tablet by mouth daily at bedtime. amLODIPine (NORVASC) 10 mg tablet Take 1 tablet by mouth once daily. insulin 50/50 lispro protamine/lispro units/mL (HUMALOG MIX 50-50 KWIKPEN) 100 unit/mL (50-50) inpn Inject 32 units in the morning and 30 units in the evenings with meals lisinopril (ZESTRIL, PRINIVIL) 20 mg tablet Take 1 tablet by mouth twice daily. metoprolol tartrate, short acting, (LOPRESSOR) 25 mg tablet Take 0.5 tablets by mouth twice daily. glimepiride (AMARYL) 4 mg tablet Take 1 tablet by mouth daily with breakfast. doxepin capsule 75 mg Take 1 capsule by mouth daily at bedtime. busPIRone (BUSPAR) 10 mg tablet Take 1 tablet by mouth twice daily. ferrous sulfate 325 mg (65 mg iron) tablet Take 325 mg by mouth twice daily. multivitamin with minerals (MULTI-VITAMIN W/MINERALS ORAL) Take 1 tablet by mouth once daily. apixaban (ELIQUIS) 2.5 mg tab tab(s) Take 1 tablet by mouth twice daily. atorvastatin (LIPITOR) 40 mg tablet Take 1 tablet by mouth once daily. vit A,C,R-Szcn-Qqzjti (PRESERVISION AREDS) 7,160-113-100 cdbf-kw-ruxe tab Take 1 tablet by mouth twice daily with meals. amoxicillin-clavulanic acid (AUGMENTIN) 875-125 mg per tablet Take 1 tablet by mouth twice daily for 7 days. FAMILY HISTORY Problem Relation Age of Onset Stroke Father brain aneurysm Social History Tobacco Use Smoking status: Former Types: Cigars Quit date: 12/07/2001 Years since quittin.1 Smokeless tobacco: Never Substance Use Topics Alcohol use: No Comment: Quit Drug use: No Objective Physical Exam Vitals and nursing note reviewed. Constitutional: General: He is not in acute distress. Appear (more content not included)...[facility]12-12-2022 Miscellaneous Notes* Telephone Encounter - Addis aSnchez Pss - 10/24/2022 8:15 AM EST Patient called this morning and message was relayed. Patient stated he will comply and do as instructed to get future refills from cardiology and to see nephrology Dr. Ornelas. * Telephone Encounter - Jeremi Morel MD - 10/22/2022 11:06 AM EST Not sure how we ended up refilling his furosemide. This should be from his financial assistance specialist. I sent 30 days and 2 refills. Please instruct him to request [facility] His diabetes and lipids are controlled. His kidney disease is slightly worse from the previous blood test and he has protein in the urine now. Recommend: I think he sees nephrology so he should follow up with Dr. Ornelas. * Telephone Encounter - Lourdes Bojorquez LPN - 10/21/2022 3:40 PM EST From 10/13/22 refill encounter pt was to complete labs. These are done. Please review. Refills still need reviewed. Pt last seen 08/02/22. Next appt with pcp 01/31/23 [facility] Miscellaneous Notes* Telephone Encounter - Norma Coleman MA - 10/14/2022 11:04 AM EST Advised patient due for fasting labs. Patient questions if possible to have medication filled without completing labs. Advised labs are necessary to refill furosemide. Patient states he will try to make it in next week to complete fasting labs. Norma Coleman MA * Telephone Encounter - Jeremi Morel MD - 10/13/2022 7:39 PM EST Patient's request for medication is as follows Requested Prescriptions Signed Prescriptions Disp Refills blood sugar diagnostic (BLOOD GLUCOSE TEST) test strip 200 Strip 3 Sig: Test blood sugar(s) 2 times daily. Dx: Type 2 DM - Uncontrolled E11.65 Insulin: No Authorizing Provider: JEREMI MOREL Refused Prescriptions Disp Refills furosemide (LASIX) 40 mg tablet 90 tablet 3 Sig: Take 1 tablet by mouth once daily. [facility]. Refused By: JEREMI MOREL Reason for Refusal: A Refill not appropriate FASTING LABS WAY OVERDUE. ORDER FROM LAST YEAR WILL THIS MONTH. HAVE PATIENT COMPLETE PLEASE. Jeremi Morel MD * Telephone Encounter - Khadra Madison LPN - 10/13/2022 9:05 AM EST Patient has been identified by name and date of : Yes Patient phones for refill(s): Requested Prescriptions Pending Prescriptions Disp Refills blood sugar diagnostic (BLOOD GLUCOSE TEST) test strip 200 Strip 3 Sig: Test blood sugar(s) 2 times daily. Dx: Type 2 DM - Uncontrolled E11.65 Insulin: No furosemide (LASIX) 40 mg tablet 90 tablet 3 Sig: Take 1 tablet by mouth once daily. [facility]. Date of last office visit in primary care: 08/02/2022 6 month follow-up: 01/31/2023 Last 2 Encounter Wt Readings: Date: Wt: 08/02/2022 95.7 kg (211 lb) 01/20/2022 94.8 kg (209 lb) Previous labs/tests for medication: Diabetes: Hemoglobin A1C Date Value 08/24/2021 6.5 05/01/2020 11.8 % 03/28/2018 6.7 % Hemoglobin A1C (POCT) (%) Date Value 09/17/2020 6.9 02/11/2019 5.8 Blood Pressure: BUN (mg/dL) Date Value 05/01/2020 16 Sodium (mmol/L) Date Value 05/01/2020 136 Last 1 Encounter BP Readings: Date: BP: 08/02/2022 144/59 Please advise. Thank you. Khadra Madison LPN * Telephone Encounter - Daniela Hicks - 10/13/2022 8:37 AM EST Patient has been identified by name and date of : Yes Patient phones for refill(s): Requested Prescriptions Pending Prescriptions Disp Refills blood sugar diagnostic (BLOOD GLUCOSE TEST) test strip 200 Strip 3 Sig: Test blood sugar(s) 2 times daily. Dx: Type 2 DM - Uncontrolled E11.65 Insulin: No furosemide (LASIX) 40 mg tablet 90 tablet 3 Sig: Take 1 tablet by mouth once daily. [facility]. Date of last office visit in primary care: 08/02/22 Last 2 Encounter Wt Readings: Date: Wt: 08/02/2022 95.7 kg (211 lb) 01/20/2022 94.8 kg (209 lb) Previous labs/tests for medication: Not applicable Please advise. Thank you. Daniela Hicks [facility] History of Present illness Narrative* Mercedez Mensah APRN.ALO - 08/02/2022 9:05 AM EDT CC: Patient presents with: Immunizations: Flu vaccination HPI Osvaldo Lucio is a 87 year old male who presents today for follow-up. Denies any concerns orissues today. Taking all medications as prescribed, denies side effects. Diabetes well controlled. Managed by Dr. Chandra Lo, last HgbA1c was 6.6. BP a little higher than usual in the office today however BP average at home in the 120's/60's. Odd Jobs Day Worker is Dr. Diggs. Afib controlled, anticoagulated with Eliquis. 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 He has since 2006 had A1C values in the 5.7-6.1 range and is on medications and does follow any dietary regime. Two times in 2008, the value was 6.5 and 6.8%. I discussed this with him and will change to impaired glucose. 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 ARTHRP ACETBLR/PROX FEM PROSTC AGRFT/ALGRFT 02/14/2012 Hip replacement, total Dr Berry CABG (2) VEIN GRAFTS & ARTERIAL GRAFT(S 01/03/2019 CORONARY ARTERY BYPASS GRAFTS X USING THE LEFT INTERNAL MAMMARY ARTERY AND THE LEFT CARDIAC CATH 10/31/2018 OPTX ANKLE DISLOCATION W/REPAIR/INT/XTRNL FIXJ 1992 ORIF Ankle right [facility] REPLACEMENT, AORTIC VALVE, WITH CAR 01/03/2019 ALLERGIES Patient has no known allergies. MEDICATIONS tamsulosin (FLOMAX) 0.4 mg Take 1 capsule by mouth once daily. Lancets lancets Test blood sugar(s) 2 times daily. Dx: Type 2 DM - Uncontrolled E11.65 Insulin: No melatonin 5 mg tablet Take 1 tablet by mouth daily at bedtime. furosemide (LASIX) 40 mg tablet Take 1 tablet by mouth once daily. [facility]. blood sugar diagnostic (BLOOD GLUCOSE TEST) test strip Test blood sugar(s) 2 times daily. Dx: Type 2 DM - Uncontrolled E11.65 Insulin: No amLODIPine (NORVASC) 10 mg tablet Take 1 tablet by mouth once daily. insulin 50/50 lispro protamine/lispro units/mL (HUMALOG MIX 50-50 KWIKPEN) 100 unit/mL (50-50) inpnInject 32 units in the morning and 30 units in the evenings with meals lisinopril (ZESTRIL, PRINIVIL) 20 mg tablet Take 1 tablet by mouth twice daily. metoprolol tartrate, short acting, (LOPRESSOR) 25 mg tablet Take 0.5 tablets by mouth twice daily. glimepiride (AMARYL) 4 mg tablet Take 1 tablet by mouth daily with breakfast. doxepin capsule 75 mg Take 1 capsule by mouth daily at bedtime. busPIRone (BUSPAR) 10 mg tablet Take 1 tablet by mouth twice daily. ferrous sulfate 325 mg (65 mg iron) tablet Take 325 mg by mouth twice daily. multivitamin with minerals (MULTI-VITAMIN W/MINERALS ORAL) Take 1 tablet by mouth once daily. apixaban (ELIQUIS) 2.5 mg tab tab(s) Take 1 tablet by mouth twice daily. atorvastatin (LIPITOR) 40 mg tablet Take 1 tablet by mouth once daily. vit A,C,W-Aagn-Krokop (PRESERVISION AREDS) 7,160-113-100 yreb-af-hetc tab Take 1 tablet by mouth twice daily with meals. FAMILY HISTORY Problem Relation Age of Onset Stroke Father brain aneurysm Social History Tobacco Use Smoking status: Former Types: Cigars Quit date: 12/07/2001 Years since quittin.6 Smokeless tobacco: Never Substance Use Topics Alcohol use: No Comment: Quit Drug use: No PHYSICAL EXAM BP 144/59 (BP Site: Left Arm, BP Position: Sitting, BP Cuff Size: Large Adult) Pulse 61 Temp 36.7 C (98 F) (Temporal) Resp 16 Ht 175.3 cm (5' 9 ) Wt 95.7 kg (211 lb) BMI 31.16 kg/m General Appearance: well appearing, in no acute distress, alert Lungs: Lungs clear to auscultation. No wheezing, rhonchi, rales. Heart: RRR without murmur, gallop, or rubs. No ectopy Health maintenance reviewed with patient: LDL CHOLESTEROL due on 05/01/2021 URINE ALBUMIN:CREATININE RATIO due on 10/01/2021 ADVANCE DIRECTIVE DISCUSSION Never done HBA1C due on 02/22/2022 INFLUENZA(1) due on 07/14/2022 DILATED RETINAL EXAM due on 08/12/2022 SHINGRIX VACCINE(1 of 2) due on 10/25/2022 COVID-19 VACCINE(4 - Booster for Moderna series) due on 08/02/2023 DIABETIC FOOT EXAM due on 09/06/2022 DTAP,TDAP,TD(4 - Td or Tdap) due on 10/25/2029 PNEUMOCOCCAL: 65+ Completed DATA REVIEWED: Most recent labs ASSESSMENT/PLAN: 1. Medicare annual wellness visit, subsequent - ICD9: V70.0, ICD10: Z00.00 (primary diagnosis) See medicare wellness note 2. Essential hypertension - ICD9: 401.9, ICD10: I10 - good control - Continue current medication(s) - Recommended regular aerobic exercise. - Recommend home blood pressure monitoring, to bring results in on next visit - Goal of BP <130/80 3. Type 2 diabetes mellitus with stage 3a chronic kidney disease, with long-term current use of insulin (HCC) - ICD9: 250.40, 585.3, V58.67, ICD10: E11.22, N18.31, Z79.4 Controlled. - Continue current medications 4. Obesity, Class I, BMI 30-34.9 - ICD9: 278.00, ICD10: E66.9 Stable 5. Paroxysmal atrial fibrillation (HCC) - ICD9: 427.31, ICD10: I48.0 Stable 6. BPH with urinary obstruction - ICD9: 600.01, 599.69, ICD10: N40.1, N13.8 Stable 7. Need for influenza vaccination - ICD9: V04.81, ICD10: Z23 - INFLUENZA SEASONAL QUADRIVALENT HIGH DOSE AGE 65+ Prescription instructions reviewed with patient as applicable. Potential red flag symptoms discussed with the patient. Reviewed appropriate action plan to take if red flag symptoms occur. Patient agreeable to treatment plan. 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 He has since 2006 had A1C values in the 5.7-6.1 range and is on medications and does follow any dietary regime. Two times in 2008, the value was 6.5 and 6.8%. I discussed this with him and will change to impaired glucose. 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 ARTHRP ACETBLR/PROX FEM PROSTC AGRFT/ALGRFT 02/14/2012 Hip replacement, total Dr Berry CABG (2) VEIN GRAFTS & ARTERIAL GRAFT(S 01/03/2019 CORONARY ARTERY BYPASS GRAFTS X USING THE LEFT INTERNAL MAMMARY ARTERY AND THE LEFT CARDIAC CATH 10/31/2018 OPTX ANKLE DISLOCATION W/REPAIR/INT/XTRNL FIXJ 1991 ORIF Ankle right [facility] REPLACEMENT, AORTIC VALVE, WITH CAR 01/03/2019 ALLERGIES: Patient has no known allergies. Medications reviewed: Yes FAMILY HISTORY Problem Relation Age of Onset Stroke Father brain aneurysm SOCIAL HISTORY: Social History Tobacco Use Smoking status: Former Types: Cigars Quit date: 12/07/2001 Years since quittin.6 Smokeless tobacco: Never Substance Use Topics Alcohol use: No Comment: Quit Drug use: No Osvaldo likes to exercise by walking. He watches his diet for sodium, low fat and low cholesterol most of the time. List of current specialists seen: Board Certified Music Therapist- Dr. Chandra Lo Odd Jobs Day Worker- Dr. Diggs Sybase Developer- Dr. Culp End of Live Planning discussed including patients advanced directive wishes: Yes I am willing to follow Osvaldo's advanced directives. Evidence of Cognitive Impairment: No What tool was used to assess the patients cognitive status? MiniCog 4/5. PHQ-2 / Depression screen He in the past two weeks denies having felt down, depressed, hopeless, or with little interest or pleasure in doing things. Functional Ability/Safety Screen 1. Was the patient's timed Up and Go test unsteady or longer than 30 seconds? No 2. Does the patient need help with the phone, transportation, shopping,preparing meals, housework, laundry, medications or managing money? No 3. Does your home have rugs in the hallway, lack of grab bars in the bathroom, lack of handrails onthe stairs or have poor lighting? No Hearing Evaluation: normal PHYSICAL EXAM BP 144/59 (BP Site: Left Arm, BP Position: Sitting, BP Cuff Size: Large Adult) Pulse 61 Temp 36.7 C (98 F) (Temporal) Resp 16 Ht 175.3 cm (5' 9 ) Wt 95.7 kg (211 lb) BMI 31.16 kg/m Alert and oriented X 3: YES Body mass index is 31.16 kg/m . ASSESSMENT/PLAN: 1. Medicare annual wellness visit, subsequent - ICD9: V70.0, ICD10: Z00.00 (primary diagnosis) The following prevention plan was discussed during the office visit and provided to the patient: - Counseled on healthy diet and regular exercise - Depression screening tool completed and reviewed with patient. Based on score and interview, patient is not at risk for depression and recommended no further intervention at this time. - Patient was counseled [id number] by myself (the billing provider) for the following immunizations and vaccine components, including side effects: Influenza. Patient consents for immunization and understands risks and benefits. A VIS sheet on each immunization was given to the patient. He declined COVID booster today - Follow up for medicare annual exam in one year Mercedez Mensah APRN.CNP [facility] Miscellaneous Notes* Telephone Encounter - Khadra Madison LPN - 04/21/2022 10:08 AM EDT Patient has been identified by name and date of : Yes Patient phones for refill(s): Pending Prescriptions Disp Refills TAMSULOSIN 0.4 MG CAPSULE 90 capsule 3 Sig: Take 1 capsule by mouth once daily. LONNIE: No LANCETS 200 Each 3 Sig: Test blood sugar(s) 2 times daily. Dx: Type 2 DM - Uncontrolled E11.65 Insulin: No LONNIE: No Date of last office visit in primary care: 01/20/2022 Yearly: 07/26/2022 Last 2 Encounter Wt Readings: Date: Wt: 01/20/2022 94.8 kg (209 lb) 11/17/2021 93.9 kg (207 lb) Previous labs/tests for medication: Diabetes: Hemoglobin A1C Date Value 08/24/2021 6.5 05/01/2020 11.8 % 03/28/2018 6.7 % Hemoglobin A1C (POCT) (%) Date Value 09/17/2020 6.9 02/11/2019 5.8 Please advise. Thank you. Khadra Madison LPN * Telephone Encounter - Jacqueline Rizzo Pss - 04/21/2022 8:48 AM EDT Patient has been identified by name and date of : Yes Pending Prescriptions Disp Refills TAMSULOSIN 0.4 MG CAPSULE 90 capsule 3 Sig: Take 1 capsule by mouth once daily. LONNIE: No LANCETS 200 Each 3 Sig: Test blood sugar(s) 2 times daily. Dx: Type 2 DM - Uncontrolled E11.65 Insulin: No LONNIE: No RX INSTRUCTIONS: Patient aware RX will be sent to pharmacy. No need to notify patient. Jacqueline Rizzo Pss [facility] History of Past illness Narrative* Problem Noted Date Resolved Date Skin nodule 12/05/2017 05/27/2019 Personal history of smoking 05/01/2014 10/0 04/2016 Overview: Quit using tobacco 2003 Chronic kidney disease (CKD), stage III (moderat e) 03/12/2010 03/26/2020 Overview: Dr. Kerri Ornelas, [facility] Impaired glucose metabolism 02/2016 Overview: HGBA1C 6.1 08/27/2012 [facility]. He has since 2006 had A1C values in the 5.7-6.1 range and is on medications and does follow any dietary regime. Two times in 2008, the value was 6.5 and 6.8%. I discussed this with him and will change to impaired glucose. Nonspecific abnormal results of liver function s dy 12/05/2017 documented as of this encounter (statuses as of 04/22/2022) [facility] of Past illness Narrative* Problem Noted Date Resolved Date Skin nodule 12/05/2017 05/27/2019 Personal history of smoking 05/01/201404/2016 Overview: Quit using tobacco 2003 Chronic kidney disease (CKD), stage III (moderat e) 03/12/2010 03/26/2020 Overview: Dr. Kerri Ornelas, [facility] Impaired glucose metabolism 02/2016 Overview: HGBA1C 6.1 08/27/2012 [facility]. He has since 2006 had A1C values in the 5.7-6.1 range and is on medications and does follow any dietary regime. Two times in 2008, the value was 6.5 and 6.8%. I discussed this with him and will change to impaired glucose. Nonspecific abnormal results of liver function s dy 12/05/2017 documented as of this encounter (statuses as of 08/02/2022) [facility] of Past illness Narrative* Problem Noted Date Resolved Date Skin nodule 12/05/2017 05/27/2019 Personal history of smoking 05/01/201404/2016 Overview: Quit using tobacco 2003 Chronic kidney disease (CKD), stage III (moderat e) 03/12/2010 03/26/2020 Overview: Dr. Kerri Ornelas, [facility] Impaired glucose metabolism 02/2016 Overview: HGBA1C 6.1 08/27/2012 [facility]. He has since 2006 had A1C values in the 5.7-6.1 range and is on medications and does follow any dietary regime. Two times in 2008, the value was 6.5 and 6.8%. I discussed this with him and will change to impaired glucose. Nonspecific abnormal results of liver function s dy 12/05/2017 documented as of this encounter (statuses as of 10/14/2022) [facility] of [facility] illness Narrative* Problem Noted Date Resolved Date Skin nodule 12/05/2017 05/27/2019 Personal history of smoking 05/01/201404/2016 Overview: Quit using tobacco 2003 Chronic kidney disease (CKD), stage III (moderat e) 03/12/2010 03/26/2020 Overview: Dr. Kerri Ornelas, [facility] Impaired glucose metabolism 02/2016 Overview: HGBA1C 6.1 08/27/2012 [facility]. He has since 2006 had A1C values in the 5.7-6.1 range and is on medications and does follow any dietary regime. Two times in 2008, the value was 6.5 and 6.8%. I discussed this with him and will change to impaired glucose. Nonspecific abnormal results of liver function s cleo 12/05/2017 documented as of this encounter (statuses as of 10/24/2022) [facility] of Past illness Narrative* Problem Noted Date Resolved Date Skin nodule 12/05/2017 05/27/2019 Personal history of smoking 05/01/201404/2016 Overview: Quit using tobacco 2003 Chronic kidney disease (CKD), stage III (moderat e) 03/12/2010 03/26/2020 Overview: [facility] Impaired glucose metabolism 02/2016 Overview: HGBA1C 6.1 08/27/2012 [facility]. He has since 2006 had A1C values in the 5.7-6.1 range and is on medications and does follow any dietary regime. Two times in 2008, the value was 6.5 and 6.8%. I discussed this with him and will change to impaired glucose. Nonspecific abnormal results of liver function s daksha 12/05/2017 documented as of this encounter (statuses as of 01/31/2023) [facility] illness Narrative* Problem Noted Date Resolved Date Skin nodule 12/05/2017 05/27/2019 Personal history of smoking 05/01/201404/2016 Overview: Quit using tobacco 2003 Chronic kidney disease (CKD), stage III (moderat e) 03/12/2010 03/26/2020 Overview: [facility] Impaired glucose metabolism 02/2016 Overview: HGBA1C 6.1 08/27/2012 [facility]. He has since 2006 had A1C values in the 5.7-6.1 range and is on medications and does follow any dietary regime. Two times in 2008, the value was 6.5 and 6.8%. I discussed this with him and will change to impaired glucose. Nonspecific abnormal results of liver function s cleo 12/05/2017 documented as of this encounter (statuses as of 04/17/2023) [facility] illness Narrative* Problem Noted Date Resolved Date Skin nodule 12/05/2017 05/27/2019 Personal history of smoking 05/01/201404/2016 Overview: Quit using tobacco 2003 Aortic stenosis 08/23/2012 05/05/2023 Chronic kidney disease (CKD), stage III (moderat e) 03/12/2010 03/26/2020 Overview: [facility] Impaired glucose metabolism 02/2016 Overview: HGBA1C 6.1 08/27/2012 [facility]. He has since 2006 had A1C values in the 5.7-6.1 range and is on medications and does follow any dietary regime. Two times in 2008, the value was 6.5 and 6.8%. I discussed this with him and will change to impaired glucose. Nonspecific abnormal results of liver function s tudy 12/05/2017 documented as of this encounter (statuses as of 05/05/2023) [facility] illness Narrative* Problem Noted Date Diagnosed Date Resolved Date Skin nodule 12/05/2017 05/27/2019 Personal history of smoking 05/01/2014 08/18/2016 Overview: Quit using tobacco 2003 Aortic stenosis 08/23/2012 05/05/2023 Chronic kidney disease (CKD) , stage III (moderate) 03/12/2010 03/26/2020 Overview: Dr. Kerri Ornelas, [facility] Impaired glucose metabolism 08/16/2016 Overview: HGBA1C 6.1 08/27/2012 [facility]. He has since 2006 had A1C values in the 5.7-6.1 range and is on medications and does follow any dietary regime. Two times in 2008, the value was 6.5 and 6.8%. I discussed this with him and will change to impaired glucose. Nonspecific abnormal results of liver function study 12/05/2017 documented as of this encounter (statuses as of 07/26/2023) [facility] illness Narrative* Problem Noted Date Diagnosed Date Resolved Date Skin nodule 12/05/2017 05/27/2019 Personal history of smoking 05/01/2014 08/18/2016 Overview: Quit using tobacco 2004 Aortic stenosis 08/23/2012 05/05/2023 Chronic kidney disease (CKD) , stage III (moderate) 03/12/2010 03/26/2020 Overview: [facility] Impaired glucose metabolism 08/16/2016 Overview: HGBA1C 6.1 08/27/2012 [facility]. He has since 2006 had A1C values in the 5.7-6.1 range and is on medications and does follow any dietary regime. Two times in 2008, the value was 6.5 and 6.8%. I discussed this with him and will change to impaired glucose. Nonspecific abnormal results of liver function study 12/05/2017 documented as of this encounter (statuses as of 08/29/2023) [facility] illness Narrative* Problem Noted Date Diagnosed Date Resolved Date Skin nodule 12/05/2017 05/27/2019 Personal history of smoking 05/01/2014 08/18/2016 Overview: Quit using tobacco 2003 Aortic stenosis 08/23/2012 05/05/2023 Chronic kidney disease (CKD) , stage III (moderate) 03/12/2010 03/26/2020 Overview: Dr. Kerri Ornelas, [facility] Impaired glucose metabolism 08/16/2016 Overview: HGBA1C 6.1 08/27/2012 [facility]. He has since 2006 had A1C values in the 5.7-6.1 range and is on medications and does follow any dietary regime. Two times in 2008, the value was 6.5 and 6.8%. I discussed this with him and will change to impaired glucose. Nonspecific abnormal results of liver function study 12/05/2017 documented as of this encounter (statuses as of 09/25/2023) [facility] History of Past illness Narrative* Problem Noted Date Diagnosed Date Resolved Date Skin nodule 12/05/2017 05/27/2019 Personal history of smoking 05/01/2014 08/18/2016 Overview: Quit using tobacco 2003 Aortic stenosis 08/23/2012 05/05/2023 Chronic kidney disease (CKD) , stage III (moderate) 03/12/2010 03/26/2020 Overview: [facility] Impaired glucose metabolism 08/16/2016 Overview: HGBA1C 6.1 08/27/2012 [facility]. He has since 2006 had A1C values in the 5.7-6.1 range and is on medications and does follow any dietary regime. Two times in 2008, the value was 6.5 and 6.8%. I discussed this with him and will change to impaired glucose. Nonspecific abnormal results of liver function study 12/05/2017 documented as of this encounter (statuses as of 09/26/2023) [facility] History of Past illness Narrative* Problem Noted Date Diagnosed Date Resolved Date Skin nodule 12/05/2017 05/27/2019 Personal history of smoking 05/01/2014 08/18/2016 Overview: Quit using tobacco 2004 Aortic stenosis 08/23/2012 05/05/2023 Chronic kidney disease (CKD) , stage III (moderate) 03/12/2010 03/26/2020 Overview: Dr. Kerri Ornelas, [facility] Impaired glucose metabolism 08/16/2016 Overview: HGBA1C 6.1 08/27/2012 [facility]. He has since 2006 had A1C values in the 5.7-6.1 range and is on medications and does follow any dietary regime. Two times in 2008, the value was 6.5 and 6.8%. I discussed this with him and will change to impaired glucose. Nonspecific abnormal results of liver function study 12/05/2017 documented as of this encounter (statuses as of 10/03/2023) [facility] BPH with urinary obstruction Hypertrophy of prostate with urinary obstruction and other lower urinary tract symptoms (LUTS) Type 2 diabetes mellitus with stage 3 chronic kidney disease, without long-term current use of insulin (HCC) [facility] Diagnosis Medicare annual wellness visit, subsequent- Primary Routine general medical examination at a health care facility Essential hypertension Unspecified essential hypertension Type 2 diabetes mellitus with stage 3a chronic kidney disease, with long-term current use of insulin (HCC) Obesity, Class I, BMI 30-34.9 Obesity, unspecified Paroxysmal atrial fibrillation (HCC) Atrial fibrillation BPH with urinary obstruction Hypertrophy of prostate with urinary obstruction and other lower urinary tract symptoms (LUTS) Need for influenza vaccination Need for prophylactic vaccination and inoculation against influenza documented in this encounter [facility] note* Diagnosis Acute on chronic diastolic (congestive) heart failure (HCC)- Primary documented in this encounter [facility] note* Diagnosis BPH with urinary obstruction Hypertrophy of prostate with urinary obstruction and other lower urinary tract symptoms (LUTS) documented in this encounter [facility] note* Diagnosis Essential hypertension- Primary Unspecified essential hypertension Aortic valve replaced Heart valve replaced by other means S/P CABG x 2 Postsurgical aortocoronary bypass status Paroxysmal atrial fibrillation (HCC) Atrial fibrillation Acute on chronic diastolic (congestive) heart failure (HCC) Hyperlipidemia, unspecified hyperlipidemia type Type 2 diabetes mellitus with stage 3a chronic kidney disease, with long-term current use of insulin (HCC) Rash and nonspecific skin eruption Rash and other nonspecific skin eruption Bipolar affective disorder, remission status unspecified (HCC) documented in this encounter [facility] note* Diagnosis Type 2 diabetes mellitus with stage 3 chronic kidney disease, without long-term current use of insulin ([facility]) documented in this encounter [facility] note* Diagnosis Dysuria- Primary BPH with urinary obstruction Hypertrophy of prostate with urinary obstruction and other lower urinary tract symptoms (LUTS) Frequency of urination Urinary frequency documented in this encounter [facility] note* Diagnosis Benign prostatic hyperplasia with urinary frequency- Primary Frequency of urination Urinary frequency Screening for genitourinary condition Screening for other and unspecified genitourinary condition documented in this encounter [facility] Summary Purpose Family History No Family History Records FoundNo Family History Records FoundNo Family History Records FoundNo Family History Records Found Advance Directives No Advanced Directives Records FoundNo Advanced Directives Records FoundNo Advanced Directives Records FoundNo Advanced Directives Records Found Reason for Referral Specialty Diagnoses / Procedures Referred By Elías richard Referred To Contact Urology Diagnoses BPH with urinary obstruction Frequency of urination Procedures CONSULT TO UROLOGY OFFICE/OUTPATIENT [facility] 60-74 MINUTES Jeremi Morel MD [address] [place] [address] Referral ID Status Reason Start Date Expiration Date Visits Requested Visits Authorized [id number] Pending Review PCP Requested Referral 3 08/27/2024 1 1 Additional Source Comments (unrecognized sect ion and content) No Status Records FoundNo Status Records FoundNo Status Records FoundNo Status Records Found INFORMATION SOURCE (unrecogn ized section and content) DATE CREATED AUTHOR AUTHOR'S ORGANIZ ATION 05/07/2018 [facility] DATE CREATED AUTHOR AUTHOR'S ORGANIZ ATION 01/24/2019 [facility] ([place]) DATE CREATED AUTHOR AUTHOR'S ORGANIZ ATION 10/05/2023 [facility] Source Comments (unrecognize d section and content) In the event this informatio n is protected by the Federal Confidentiality of Alcohol and Drug Abuse Patient Records regulations: The Federal rules restrict any use of the information to criminally investigate or prosecute any alcohol or drug abuse patient.[facility] the event this information is protected by the Federal Confidentiality of Alcohol and Drug Abuse Patient Records regulations: The Federal rules restrict any use of the information to criminally investigate or prosecute any alcohol or drug abuse patient.[facility] the event this information is protected by the Federal Confidentiality of Alcohol and Drug Abuse Patient Records regulations: The Federal rules restrict any use of the information to criminally investigate or prosecute any alcohol or drug abuse patient.[facility] the event this information is protected by the Federal Confidentiality of Alcohol and Drug Abuse Patient Records regulations: The Federal rules restrict any use of the information to criminally investigate or prosecute any alcohol or drug abuse patient.[facility] the event this information is protected by the Federal Confidentiality of Alcohol and Drug Abuse Patient Records regulations: The Federal rules restrict any use of the information to criminally investigate or prosecute any alcohol or drug abuse patient.[facility] the event this information is protected by the Federal Confidentiality of Alcohol and Drug Abuse Patient Records regulations: The Federal rules restrict any use of the information to criminally investigate or prosecute any alcohol or drug abuse patient.[facility] the event this information is protected by the Federal Confidentiality of Alcohol and Drug Abuse Patient Records regulations: The Federal rules restrict any use of the information to criminally investigate or prosecute any alcohol or drug abuse patient.[facility] the event this information is protected by the Federal Confidentiality of Alcohol and Drug Abuse Patient Records regulations: The Federal rules restrict any use of the information to criminally investigate or prosecute any alcohol or drug abuse patient.[facility] the event this information is protected by the Federal Confidentiality of Alcohol and Drug Abuse Patient Records regulations: The Federal rules restrict any use of the information to criminally investigate or prosecute any alcohol or drug abuse patient.[facility] the event this information is protected by the Federal Confidentiality of Alcohol and Drug Abuse Patient Records regulations: The Federal rules restrict any use of the information to criminally investigate or prosecute any alcohol or drug abuse patient.[facility] the event this information is protected by the Federal Confidentiality of Alcohol and Drug Abuse Patient Records regulations: The Federal rules restrict any use of the information to criminally investigate or prosecute any alcohol or drug abuse patient.[facility] the event this information is protected by the Federal Confidentiality of Alcohol and Drug Abuse Patient Records regulations: The Federal rules restrict any use of the information to criminally investigate or prosecute any alcohol or drug abuse patient.[facility] Reason for Visit (unrecogniz ed section and content) Reason Onset Date Comments Immunizations 08/02/2022 Flu vaccination Reason Onset Date Comments Refill Request 10/13/2022 Reason Comments Results Reason Comments F/U 6 months Reason Onset Date Comments Refill Request 04/17/2023 Reason Comments F/U 3 Month Reason Onset Date Comments Refill Request 07/26/2023 Reason Comments UTI Reason Comments Consult Urinary Frequency Specialty Diagnoses / Procedures Referred By Contpetty t Referred To Contact Urology Diagnoses BPH with urinary obstruction Frequency of urination Procedures CONSULT TO UROLOGY OFFICE/OUTPATIENT NEW HIGH MDM 60-74 MINUTES Jeremi Morel MD [address] [place] [address] Referral ID Status Reason Start Date Expiration Date Visits Requested Visits Authorized [id number] Pending Review PCP Requested Referral 3 08/27/2024 1 1 Reason Comments Outside medical records Reason Comments Opened In Error Care Teams (unrecognized sec tion and content) Special Assets Officer Relationship Specialty Start Date End Date Jeremi Morel MD [address] [place] [address] PCP - General Internal Medicine 08/19/16 Thompson Diggs [address] [address] Physician Cardiology 02/01/19 Special Assets Officer Relationship Specialty Start Date End Date Jeremi Morel MD [address] [place] [address] PCP - General Internal Medicine 08/19/16 Caterina, [place] S [address] [place] [address] Physician Cardiology 02/01/19 Special Assets Officer Relationship Specialty Start Date End Date Jeremi Morel MD [address] [facility] [place] [address] PCP - General Internal Medicine 08/19/16 Caterina, Thompson S [address] [place] [address] Physician Cardiology 02/01/19 Special Assets Officer Relationship Specialty Start Date End Date Jeremi Morel MD [address] [facility] [address] PCP - General Internal Medicine 08/19/16 Caterina, Thompson S [address] [place] [address] Physician Cardiology 02/01/19 Special Assets Officer Relationship Specialty Start Date End Date Jeremi Morel MD [address] [facility] [address] PCP - General Internal Medicine 08/19/16 Caterina, Thompson S [address] [place] [address] Physician Cardiology 02/01/19 Special Assets Officer Relationship Specialty Start Date End Date Jeremi Morel MD [address] [facility] [place] [address] PCP - General Internal Medicine 08/19/16 Caterina, Athol S [address] [place] [address] Physician Cardiology 02/01/19 Special Assets Officer Relationship Specialty Start Date End Date Jeremi Morel MD [address] [place] [address] PCP - General Internal Medicine 08/19/16 Thompson Diggs MD [address] [address] Physician Cardiology 02/01/19 Special Assets Officer Relationship Specialty Start Date End Date Jeremi Morel MD [address] [place] [address] PCP - General Internal Medicine 08/19/16 Thompson Diggs MD [address] [address] Physician Cardiology 02/01/19 Special Assets Officer Relationship Specialty Start Date End Date Jeremi Morel MD [address] [place] [address] PCP - General Internal Medicine 08/19/16 Thompson Diggs MD [address] [address] Physician Cardiology 02/01/19 Special Assets Officer Relationship Specialty Start Date End Date Jeremi Morel MD [address] [place] [address] PCP - General Internal Medicine 08/19/16 Thompson Diggs MD [address] [address] Physician Cardiology 02/01/19 FOR RECORDS PERTAINING TO PATIENTS WHO ARE OR HAVE BEEN ENROLLED IN A CHEMICAL DEPENDENCY/SUBSTANCEABUSE PROGRAM, SOME INFORMATION MAY BE OMITTED. This clinical summary was aggregated from multiple sources. Caution should be exercised in using it in the provision of clinical care. This summary normalizes information from multiple sources, and as a consequence, information in this document may materially change the coding, format and clinical context of patient data. In addition, data may be omitted in some cases. CLINICAL DECISIONS SHOULD BE BASED ON THE PRIMARY CLINICAL RECORDS. [employer] [facility]. provides no warranty or guarantee of the accuracy or completeness of information in this document.
[2023-11-25 08:09] LABS: International Normalized Ratio 1.2; Prothrombin Time (Protime)PT. 14.8 SECONDS (11.7-14.9)
[2023-11-25 08:10] LABS: Partial Thromboplast Time 31.6 Seconds (24.1-36.2)
[2023-11-25 08:14] LABS: Lactic Acid 2.8 mmol/L (0.4-1.9)
[2023-11-25 08:40] LABS: Anion Gap 11 (5-15); BUN 25 mg/dL (7-18); Calcium,Total 9.8 mg/dL (8.5-10.1); Chloride 104 mmol/L (98-107); Creatinine, Serum 1.25 mg/dL (0.70-1.30); EST Glomerular Filtration Rate 58 mL/min (>60); Est Glom Filt Rate - Afr Amer 70 mL/min (>60); Estimated Creatinine Clearance 47.16 ml/min; Glucose 227 mg/dL (74-106); Lipase 26 U/L (13-75); Potassium 3.8 mmol/L (3.5-5.1); Sodium Level 138 mmol/L (136-145); Troponin-I HS 26 pg/mL (3.0-78.0)
--- NOTE | 2023-11-25 08:52 | CT_ITS ---
STUDY: CTA CHEST REASON FOR EXAM: Male, 88 years old. Pulmonary embolism RADIATION DOSAGE (If Supplied By Facility): CTDIvol = ( 13.82 ) mGy, DLP = ( 482.50 ) mGycm TECHNIQUE: The examination was performed with the intravenous administration of IV 100mL Isovue-370. Post-processing of the angiographic images was performed, with multiplanar reformation and 3D reconstruction. Individualized dose optimization techniques were used for this CT. COMPARISON: October 16, 2021 FINDINGS: Normal enhancement of the main pulmonary artery and right and left pulmonary arteries. Normal enhancement of the bilateral peripheral pulmonary arteries. There is no demonstrated pulmonary embolism. There is atherosclerotic calcification of the aortic arch and descending thoracic aorta. There is no demonstrated aortic dissection. There are calcifications of the coronary arteries. 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 Sternal cerclage wires are present from a prior sternotomy. There are enlarged mediastinal lymph nodes. There is a small hiatal hernia. Normal visualized trachea and bronchi. There are bilateral pleural effusions, left greater than right, that are partially loculated within the major fissures. There are bilateral groundglass opacities. There is dependent consolidation within the left lower lobe. There is bibasilar atelectasis and/or scarring. Normal chest wall structures. There are degenerative changes of thoracic spine. The bones are diffusely demineralized. Normal visualized upper abdomen. CT/CTA Chest W/WO Contrast IMPRESSION: No demonstrated pulmonary embolism or arterial dissection. Bilateral pleural effusions associated with left lower lobe consolidation. Bilateral groundglass opacities, may be secondary to edema and/or an infectious process. Enlarged mediastinal lymph nodes, may be reactive however cannot entirely exclude a neoplastic process. Hiatal hernia. Electronically Signed: Priya Gonzalez MD at 9:28 EST ,
[2023-11-25 08:57] LABS: Bacteria 0 SEEN /hpf (None Seen); Mucous, Urine 0 SEEN /hpf (<or=2+); Red Blood Cells-Urine 0 SEEN /hpf (0-5); Squamous Epithelial Cells - UA 0 SEEN /hpf (0-5)
[2023-11-25 08:59] LABS: Color, Urine Yellow (Yellow); Glucose, Dipstick Normal (Normal); Ketone-Dipstick Negative (Negative); Leukocyte Esterase-Dipstick 100 /ul (Negative); Nitrite-Dipstick Negative (Negative); Occult Blood-Urine Negative /ul (Negative); Protein-Dipstick 15 mg/dl (Negative); Urine Bilirubin Dipstick Negative (Negative); Urine Clarity Clear (Clear); Urine Urobilinogen Normal (Normal); Urine pH 6.5 (5.0 - 8.0)
[2023-11-25 09:11] LABS: White Blood Cells 0-5 SEEN /hpf (0-5)
[2023-11-25] MEDS: 0.9% Normal Saline (1000mL) 1,000 ML 999 ML IV (09:18)
[2023-11-25] MEDS: Furosemide 100 MG/10 ML Vial 60 MG IV (11:22)
[2023-11-25 11:28] LABS: Reflex Lactate? Y
--- OUTSIDE RECORDS SUMMARY | 2023-11-25 11:31 | XMS RPT_ITS | CCD ---
Author Name Unknown Address [id number] [place] [address] Organization [facility] Care Team Providers Care Auto Wrecker Name Role Phone STEFANY ORTEZNETH E Unavailable Unavailable NEELIMA, MICHAEL E Unavailable Unavailable NEELIMA, MICHAEL Unavailable Unavailable NEELIMA, MICHAEL Unavailable Unavailable Дмитрий Jeremi Unavailable Unavailable NEELIMA, MICHAEL Unavailable Unavailable NEELIMA, MICHAEL Unavailable Unavailable Дмитрий Jeremi Unavailable Unavailable SERGE, [...] Jeremi Morel MD Primary Care Provider Caterina, [place] S Unavailable Jeremi Morel MD Primary Care Provider Caterina, [place] S Unavailable Jeremi Morel MD Primary Care Provider Caterina, Thompson S Unavailable Caterina, [place] S Unavailable Caterina BLANK Thompson S Unavailable [...] Da te Episodic/Chronic Other aftercare (1 source) long-term (current) use of insulin; Translations: [Type 2 [...] Body height 172.7 cm Maxi Cage APRN.[facility] Work Phone: [facility] 09-25-2023 09:57-0500 Body temperature 97.39 [degF] Maxi Cage APRN.MACHINE SET UP OPERATOR [employer], [facility] Work Phone: [facility] 09-25-2023 09:57-0500 Body weight 89.99 kg Maxi Cage APRN.MACHINE SET UP OPERATOR [employer], [facility] Work Phone: [facility] 09-25-2023 09:57-0500 Diastolic blood pressure 62 mm[Hg] Maxi Cage APRN.MACHINE SET UP OPERATOR [employer] [facility] Work Phone: [facility] 09-25-2023 09:57-0500 Heart rate 84 /min Maxi Cage APRN.MACHINE SET UP OPERATOR [employer] [facility] Work Phone: [facility] 09-25-2023 09:57-0500 Respiratory rate 16 /min Maxi Cage APRN.MACHINE SET UP OPERATOR [employer], [facility] Work Phone: [facility] 09-25-2023 09:57-0500 SaO2% (BldA) [Mass fraction] 98 % Maxi Cage APRN.MACHINE SET UP OPERATOR [employer] [facility] Work Phone: [facility] 09-25-2023 09:57-0500 Systolic blood pressure 138 mm[Hg] Maxi Cage APRN.[facility] Work Phone: [facility] 08-28-2023 13:53-0400 Body weight 86.64 kg Jeremi Morel MD Work Phone: [facility] 08-28-2023 13:53-0400 Diastolic blood pressure 60 mm[Hg] Jeremi Morel MD Work Phone: [facility] 08-28-2023 13:53-0400 Heart rate 74 /min Jeremi Morel MD Work Phone: [facility] 08-28-2023 13:53-0400 Respiratory rate 16 /min Jeremi Morel MD Work Phone: [facility] 08-28-2023 13:53-0400 Systolic blood pressure 138 mm[Hg] Jeremi Morel MD Work Phone: [facility] 05-05-2023 08:48-0400 Body weight 91.17 kg Jeremi Morel MD Work Phone: [facility] 05-05-2023 08:48-0400 Diastolic blood pressure 68 mm[Hg] Jeremi Morel MD Work Phone: [facility] 05-05-2023 08:48-0400 Heart rate 76 /min Jeremi Morel MD Work Phone: [facility] 05-05-2023 08:48-0400 Respiratory rate 18 /min Jeremi Morel MD Work Phone: [facility] 05-05-2023 08:48-0400 Systolic blood pressure 166 mm[Hg] Jeremi Morel MD Work Phone: [facility] 01-31-2023 08:58-0400 Diastolic blood pressure 66 mm[Hg] Jeremi Morel MD Work Phone: [facility] 01-31-2023 08:58-0400 Heart rate 60 /min Jeremi Morel MD Work Phone: [facility] 01-31-2023 08:58-0400 Systolic blood pressure 153 mm[Hg] Jeremi Morel MD Work Phone: [facility] 01-31-2023 08:47-0400 Body weight 92.99 kg Jeremi Morel MD Work Phone: [facility] 01-31-2023 08:47-0400 Respiratory rate 16 /min Jeremi Morel MD Work Phone: [facility] 08-02-2022 08:37-0400 Diastolic blood pressure 59 mm[Hg] Mercedez Mensah APRN.MACHINE SET UP OPERATOR [employer] Work Phone: [facility] 08-02-2022 08:37-0400 Heart rate 61 /min Mercedez Older OUTBOARD MOTOR MECHANIC.MACHINE SET UP OPERATOR [employer] Work Phone: [facility] 08-02-2022 08:37-0400 Systolic blood pressure 144 mm[Hg] Mercedez Older OUTBOARD MOTOR MECHANIC.MACHINE SET UP OPERATOR [employer] Work Phone: [facility] 08-02-2022 08:33-0400 Body height 175.3 cm Mercedez Older OUTBOARD MOTOR MECHANIC.MACHINE SET UP OPERATOR [employer] Work Phone: [facility] 08-02-2022 08:33-0400 Body temperature 98.01 [degF] Mercedez Older OUTBOARD MOTOR MECHANIC.MACHINE SET UP OPERATOR [employer] Work Phone: [facility] 08-02-2022 08:33-0400 Body weight 95.71 kg Mercedez Older OUTBOARD MOTOR MECHANIC.MACHINE SET UP OPERATOR [employer] Work Phone: [facility] 08-02-2022 08:33-0400 Respiratory rate 16 /min Mercedez Older OUTBOARD MOTOR MECHANIC.MACHINE SET UP OPERATOR [employer] Work Phone: [facility] Encounters Encounter Date Encounter Type Care Provider Facility Start: 10-02-2023 Telephone encounter Maxi beauchamp OUTBOARD MOTOR MECHANIC.MACHINE SET UP OPERATOR [employer], DNP Work Phone: Urology Procedures Date Procedure Procedure Detail Performing Clinician Start: 02-20-2023 Hemoglobin A1c/Hemoglobin.total in Blood [facility] Provider Start: 09-12-2022 Hemoglobin A1c/Hemoglobin.total in Blood [facility] Provider Start: 08-02-2022 INFLUENZA SEASONAL QUADRIVALENT HIGH DOSE AGE 65+ Mercedez Older OUTBOARD MOTOR MECHANIC.MACHINE SET UP OPERATOR [employer] Work Phone: Start: 01-01-2019 History of coronary artery bypass grafting S/P CABG x 2 Jeremi Morel MD Work Phone: History of coronary artery bypass grafting S/P CABG x 2 Jeremi Morel MD Work Phone: Plan of Treatment Date Care Activity Detail Author Start: 10-25-2029 Urine microalbumin profile [facility] Start: 02-01-2024 3 comp foot exam completed DIABETIC FOOT EXAM [facility] Start: 10-17-2023 Hepatitis B screening URINE AL BUMIN:CREATININE RATIO [facility] Start: 10-17-2023 Hepatitis B surface antibody level LDL CHOLESTEROL [facility] Start: 08-22-2023 Hemoglobin A1c/Hemoglobin.total in Blood HBA1C [facility] Start: 08-17-2023 Hepatitis C antibody , confirmatory test DILATED RETINAL EXAM [facility] Start: 08-02-2023 COVID-19 VACCINE (4 - Booster for Moderna series) COVID-19 VACCINE (4 - Booster for Moderna series) [facility] Immunizations Immunization Date Immunization Notes Care Provider Fa cility 08-02-2022 influenza, high-dose , quadrivalent vaccine (FLUZONE HIGH DOSE QUADRIVALENT) Mercedez Older OUTBOARD MOTOR MECHANIC.MACHINE SET UP OPERATOR [employer] Work Phone: [facility] Work Phone: 08-02-2022 influenza virus vacc ine, unspecified formulation Jeremi Morel MD Work Phone: [facility] 12-01-2021 COVID-19 vaccine, ag e 12+ yr ([employer] [facility]) Jeremi Morel MD Work Phone: [facility] Work Phone: 07-22-2021 influenza, high-dose , quadrivalent vaccine (FLUZONE HIGH DOSE QUADRIVALENT) Jeremi Morel MD Work Phone: [facility] Work Phone: 03-10-2021 COVID-19 vaccine, fu ll dose (MODERNA) Jeremi Morel MD Work Phone: [facility] Work Phone: 09-17-2020 influenza, high-dose , quadrivalent vaccine (FLUZONE HIGH DOSE QUADRIVALENT) Jeremi Morel MD Work Phone: [facility] Work Phone: 10-30-2019 influenza, seasonal, injectable, preservative free Jeremi Morel MD Work Phone: [facility] Work Phone: 10-25-2019 tetanus toxoid, redu vasiliy diphtheria toxoid, and acellular pertussis vaccine, adsorbed Jeremi Morel MD Work Phone: [facility] Work Phone: 09-10-2018 influenza, high dose seasonal, preservative-free Jeremi Morel MD Work Phone: [facility] 09-06-2017 influenza, high dose seasonal, preservative-free Jeremi Morel MD Work Phone: [facility] 08-18-2016 influenza, high dose seasonal, preservative-free Jeremi Morel MD Work Phone: [facility] 07-30-2015 influenza, high dose seasonal, preservative-free Jeremi Morel MD Work Phone: [facility] 07-30-2015 pneumococcal conjuga te vaccine, 13 valent Jeremi Morel MD Work Phone: [facility] 08-28-2014 influenza, seasonal, injectable Jeremi Morel MD Work Phone: [facility] 08-28-2013 influenza virus vacc ine, unspecified formulation Jeremi Morel MD Work Phone: [facility] 08-28-2013 pneumococcal polysaccharide vaccine, 23 valent Jeremi Mroel MD Work Phone: [facility] 08-23-2012 influenza virus vacc ine, unspecified formulation Jeremi Morel MD Work Phone: [facility] 09-15-2011 influenza virus vacc ine, unspecified formulation Jeremi Morel MD Work Phone: [facility] 09-10-2010 influenza virus vacc ine, unspecified formulation Jeremi Morel MD Work Phone: [facility] Work Phone: 08-27-2008 influenza virus vacc ine, unspecified formulation Jeremi Morel MD Work Phone: [facility] 09-05-2006 influenza virus vacc ine, unspecified formulation Jeremi Morel MD Work Phone: [facility] 10-28-2005 influenza virus vacc ine, unspecified formulation Jeremi Morel MD Work Phone: [facility] Work Phone: 12-21-2004 diphtheria and tetan us toxoids, adsorbed for pediatric use Jeremi Morel MD Work Phone: [facility] Work Phone: Payers Date Payer Category Payer Self-pay 2017 Unknown [employer]IM[employer] H[employer] POS [id number] 2017-Present [phone] [address] [place] [address] HMO [id number] 2017 Unknown [employer]IM[employer]IME [employer] HMO POS [id number] 2017-Present [phone] [address] [place] [address] HMO [id number] 2017 Medicare [id number] 2017 Unknown [id number] 1935 Unknown [id number] 1935 Unknown [id number] 1937 Unknown [id number] 1937 Unknown [id number] 1935 Unknown [id number] Social History Date Type Detail Facility Start: [facility]02[facility]22 [facility] End: 12-07-2001 History of tobacco use Current smoker [facility] End: 12-07-2001 History of tobacco use Cigar Smoker [facility] Start: 01-20-2022 End: 08-28-2023 Alcohol intake Current non-drinker of alcohol (finding) [facility] Start: 1935 Sex Assigned At Not on file [facility] Start: 08-02-2022 Tobacco use and exposure Smokeless tobacco non-user [facility] Work Phone: Start: 07-23-2022 End: 08-02-2022 Exposure to SARS-CoV-2 (event) Not sure [facility] Work Phone: Start: 01-31-2023 End: 05-05-2023 History of Social function [facility] Work Phone: Start: 01-31-2023 End: 05-05-2023 Tobacco use panel [facility] Work Phone: Adult Depression Screening Assessment 6 [facility] Work Phone: Start: 09-25-2023 Alcohol intake Ex-drinker (finding) [facility] Medical Equipment Procedure Code Equipment Code Equipment [...] PRAJAPATI Received outside medical records- scanned to [employer] via [email or web address]. Notified Maxi Cage APRN, CNP, DNP. Mary Schmitt LPN documented in this encounter [facility] 09-25-2023 Note HNO ID: [id number] Author: Maxi Cage APRN.MACHINE SET UP OPERATOR [employer], DNP Service: ? Author Type: Nurse Practitioner Type: Progress Notes Filed: 09/25/2023 10:44 AM Note Text: [facility] MALE PATIENT - HISTORY AND PHYSICAL EXAMINATION PATIENT: Osvaldo Lucio (88 year old) 09/25/2023 PCP: Jeremi Morel MD New patient to Urology CHIEF COMPLAINT: BPH/LUTS HISTORY OF PRESENT ILLNESS: 88 year old year old male with BPH/LUTS. Main complaint is urinary frequency. Hx sig for: DM2, HTN, watermelon inspector anticoagulation, HLD Referred by PCP. 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 He has since 2006 had A1C values [...] Smokeless tobacco: N (more content not included)... [facility] 09-25-2023 Note HNO ID: [id number] Author: Mary Schmitt LPN Service: ? Author [...] the procedure well. Plan: Appointment with Landon. [facility] 09-25-2023 Instructions Maxi Cage APRN.SAMMY PRAJAPATI - [...] Cage APRN.SAMMY PRAJAPATI documented in this encounter [facility] 09-25-2023 History of Presen t illness Narrative [facility] MALE PATIENT - HISTORY AND PHYSICAL EXAMINATION PATIENT: Osvaldo Lucio (88 year old) 09/25/2023 PCP: Jeremi Morel MD New patient to Urology CHIEF COMPLAINT: BPH/LUTS HISTORY OF PRESENT ILLNESS: 88 year old year old male with BPH/LUTS. Main complaint is urinary frequency. Hx sig for: DM2, HTN, watermelon inspector anticoagulation, HLD Referred by PCP. 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 He has since 2006 had A1C values [...] (Patient not taking: Reported on 09/25/2023) vit A,C,I-Vydb-Cnxdzp ([facility]) 7,160-113-100 vzxt-te-xcms tab Take 1 tablet by mouth twice [...] Consultation requested by Dr. Jeremi Morel [address] [facility] [id number] for an opinion regarding urinary freq and UTI and my final recommendations will be communicated back to the requesting physician by way of shared Medical record or letter via US mail. I spent a total of 42 minutes on the date of the service which included preparing to see the patient, jjny-de-hxzz patient care, completing clinical documentation, performing a medically appropriate examination, counseling and educating the patient/family/caregiver and ordering medications, tests, or procedures. Maxi Cage DNP, ALO Department of Urology [facility] Verified name and date of . CC [...] Appointment with Landon. documented in this encounter [facility] 08-28-2023 Note HNO ID: [id number] Author: Jeremi Morel MD Service: ? Author Type: Physician Type: Progress Notes Filed: 08/28/2023 3:38 PM Note Text: This note was created using [employer]. Subjective Patient presents with: UTI Osvaldo Lucio [...] 1 capsule by mouth once daily. vit A,C,L-Xcoc-Ujhjbb ([facility]) 7,160-113-100 zzfo-sl-gdlj tab Take 1 tablet by mouth twice [...] willingness to follow recommendations. Jeremi Morel MD [facility] 08-28-2023 History of Presen t illness Narrative This note was created using [employer]Tank[employer]. Subjective Patient presents with: UTI Osvaldo Lucio [...] LIST Essential Hypertension Hyperlipidemia Bipolar Disorder, Unspecified ([facility]) Mitral Regurgitation Type 2 Diabetes Mellitus With Stage 3 Chronic Kidney Disease, With Long-Term Current Use of Insulin ([facility]) Vitamin D Deficiency Spondylosis of Lumbar [...] 1 capsule by mouth once daily. vit A,C,N-Tcwj-Ljzxzl ([facility]) 7,160-113-100 yhet-wg-ilro tab Take 1 tablet by mouth twice [...] Jeremi Morel MD documented in this encounter [facility] 07-26-2023 Miscellaneous Notes Patient has been identified [...] Addis Sanchez Pss documented in this encounter [facility] 05-05-2023 Note HNO ID: [id number] Author: Jeremi Morel MD Service: ? Author Type: Physician Type: Progress Notes Filed: 05/05/2023 9:43 AM Note Text: This note was created using [employer]. Subjective Osvaldo Lucio is a 87 year [...] [facility], [facility]. We refill [...] 1 tablet by mouth once daily. vit A,C,P-Kvly-Excxzb ([facility]) 7,160-113-100 mvpk-mt-mmdv tab Take 1 tablet by mouth twice [...] - ICD9: 428.3 (more content not included)... [facility] 05-05-2023 History of Presen t illness Narrative This note was created using [employer]. Subjective Osvaldo Lucio is a 87 year [...] his medications are from [facility], [facility]. We refill only Tamsulosin. Review of Systems Constitutional: Negative for activity change, appetite change and unexpected weight change. Respiratory: Negative for shortness of breath. Cardiovascular: Negative for chest pain, palpitations and leg swelling. Gastrointestinal: Negative for abdominal pain. Genitourinary: Negative for difficulty urinating. Skin: Positive for rash. 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 vit A,C,R-Yvcs-Yofklv ([facility]) 7,160-113-100 uvjd-tj-jnvb tab Take 1 tablet by mouth twice [...] Jeremi Morel MD documented in this encounter [facility] 04-17-2023 Miscellaneous Notes KAT: 01/31/2023 Last refill: [...] Anika Narvaez Pss documented in this encounter [facility] 01-31-2023 Note HNO ID: [id number] Author: Jeremi Morel MD Service: ? Author Type: Physician Type: Progress Notes Filed: 01/31/2023 9:37 AM Note Text: This note was created using [employer]. 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 vit A,C,S-Mfvu-Zzvwmp ([facility]) 7,160-113-100 ljoc-rc-hkxv tab Take 1 tablet by mouth twice [...] Depression Screening 06/06/2017 (more content not included)... [facility] 01-31-2023 Instructions Jeremi Morel MD - 01/31/2023 9:18 AM EDT TRY SERTRALINE. CALL FOR REFILL IF EFFECTIVE AND UNABLE TO SEE [facility] PROVIDER. SCHEDULE SOONER APPOINTMENT WITH [facility]. documented in this encounter [facility] 01-31-2023 History of Presen t illness Narrative This note was created using [employer]. Subjective Osvaldo Lucio is a 87 year [...] 1 tablet by mouth once daily. vit A,C,J-Yxul-Lgyexu ([facility]) 7,160-113-100 pvgu-ac-qbeo tab Take 1 tablet by mouth twice [...] in the short term and in the skilled nursing. Risks: Possible side effects were discussed including [...] 585.3, V58.67, ICD10: E11.22, N18.31, Z79.4 Per [facility]. 3. Paroxysmal atrial fibrillation (HCC) - ICD9: 427.31, ICD10: I48.0 Controlled and managed by [facility]. 4. Essential hypertension - ICD9: 401.9, ICD10: I10 Elevated today. I will defer to [facility]. Jeremi Morel MD documented in this encounter [facility] documented in this encounter [facility]03-10-2023 NoteHNO ID: [id number] Author: Ariadne Garcia APRN.MACHINE SET UP OPERATOR [employer] Service: ? 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 He has since 2006 had A1C values [...] DISLOCATION W/REPAIR/INT/XTRNL FIXJ 1991 ORIF Ankle right [facility] REPLACEMENT, AORTIC VALVE, WITH CAR 01/03/2019 ALLERGIES [...] 1 tablet by mouth once daily. vit A,C,Y-Aezy-Bhybjg ([facility]) 7,160-113-100 vzzx-wd-ervr tab Take 1 tablet by mouth twice [...] in acute distress. Appear (more content not included)...[facility]12-12-2022 Miscellaneous Notes* Telephone Encounter - Addis Sanchez Pss - 10/24/2022 8:15 AM EST Patient called this morning and message was relayed. Patient stated he will comply and do as instructed to get future refills from cardiology and to see nephrology Dr. Ornelas. * Telephone Encounter - Jeremi Morel MD - 10/22/2022 11:06 AM EST Not sure how we ended up refilling his furosemide. This should be from his sheet metal engineer. I sent 30 days and 2 refills. [...] appt with pcp 01/31/23 [facility] Miscellaneous Notes* Telephone Encounter - Norma Coleman [...] Uncontrolled E11.65 Insulin: No Authorizing Provider: JEREMI OMREL Refused Prescriptions Disp Refills furosemide (LASIX) 40 [...] Thank you. Daniela Hicks [facility] History of Present illness Narrative* Mercedez Mensah [...] BP average at home in the 120's/60's. Hides Inspector is Dr. Diggs. Afib controlled, anticoagulated with [...] DM type 2 causing CKD stage 3 ([facility]) 07/30/2015 Essential hypertension Hyperlipidemia cholesterol 197 08/27/2012 [facility] Impaired glucose metabolism HGBA1C 6.1 08/27/2012 [facility]. 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 vit A,C,O-Okfl-Cikgno ([facility]) 7,[id number] kcgs-ys-[id number] tab Take 1 tablet by mouth twice [...] DM type 2 causing CKD stage 3 ([facility]) 07/30/2015 Essential hypertension Hyperlipidemia cholesterol 197 08/27/2012 [facility] Impaired glucose metabolism HGBA1C 6.1 08/27/2012 [facility]. He has since 2006 had A1C values [...] DISLOCATION W/REPAIR/INT/XTRNL FIXJ 1991 ORIF Ankle right [facility] REPLACEMENT, AORTIC VALVE, WITH CAR 01/03/2019 ALLERGIES: [...] the time. List of current specialists seen: Medical Staff Physician- Dr. Chandra Lo Hides Inspector- Dr. Diggs Staff Sonographer- Dr. Culp End of Live Planning discussed [...] at this time. - Patient was counseled [id number] by myself (the billing provider) for the following immunizations and vaccine components, including side effects: Influenza. Patient consents for immunization and understands risks and benefits. A VIS sheet on each immunization was given to the patient. He declined COVID booster today - Follow up for medicare annual exam in one year Mercedez Mensah APRN.CNP [facility] Miscellaneous Notes* Telephone Encounter - Khadra Madison [...] patient. Jacqueline Rizzo Pss documented [facility] this [facility] History of Past illness Narrative* Problem Noted Date Resolved Date Skin nodule 12/05/2017 05/27/2019 Personal history of smoking 05/01/2014 10/0 04/2016 Overview: Quit using tobacco 2003 Chronic kidney disease (CKD), stage III (moderat e) 03/12/2010 03/26/2020 Overview: Dr. Kerri Ornelas, [facility] Impaired glucose metabolism 02/2016 Overview: HGBA1C 6.1 08/27/2012 [facility]. He has since 2006 had A1C values in the 5.7-6.1 range and is on medications and does follow any dietary regime. Two times in 2008, the value was 6.5 and 6.8%. I discussed this with him and will change to impaired glucose. Nonspecific abnormal results of liver function s dy 12/05/2017 documented as of this encounter (statuses as of 04/22/2022) [facility] of Past illness Narrative* Problem Noted Date Resolved Date Skin nodule 12/05/2017 05/27/2019 Personal history of smoking 05/01/201404/2016 Overview: Quit using tobacco 2003 Chronic kidney disease (CKD), stage III (moderat e) 03/12/2010 03/26/2020 Overview: Dr. Kerri Ornelas, [facility] Impaired glucose metabolism 02/2016 Overview: HGBA1C 6.1 08/27/2012 [facility]. He has since 2006 had A1C values in the 5.7-6.1 range and is on medications and does follow any dietary regime. Two times in 2008, the value was 6.5 and 6.8%. I discussed this with him and will change to impaired glucose. Nonspecific abnormal results of liver function s dy 12/05/2017 documented as of this encounter (statuses as of 08/02/2022) [facility] of Past illness Narrative* Problem Noted Date Resolved Date Skin nodule 12/05/2017 05/27/2019 Personal history of smoking 05/01/201404/2016 Overview: Quit using tobacco 2003 Chronic kidney disease (CKD), stage III (moderat e) 03/12/2010 03/26/2020 Overview: Dr. Kerri Ornelas, [facility] Impaired glucose metabolism 02/2016 Overview: HGBA1C 6.1 08/27/2012 [facility]. He has since 2006 had A1C values in the 5.7-6.1 range and is on medications and does follow any dietary regime. Two times in 2008, the value was 6.5 and 6.8%. I discussed this with him and will change to impaired glucose. Nonspecific abnormal results of liver function s dy 12/05/2017 documented as of this encounter (statuses as of 10/14/2022) [facility] of [facility] illness Narrative* Problem Noted Date Resolved Date Skin nodule 12/05/2017 05/27/2019 Personal history of smoking 05/01/201404/2016 Overview: Quit using tobacco 2003 Chronic kidney disease (CKD), stage III (moderat e) 03/12/2010 03/26/2020 Overview: Dr. Kerri Ornelas, [facility] Impaired glucose metabolism 02/2016 Overview: HGBA1C 6.1 08/27/2012 [facility]. He has since 2006 had A1C values in the 5.7-6.1 range and is on medications and does follow any dietary regime. Two times in 2008, the value was 6.5 and 6.8%. I discussed this with him and will change to impaired glucose. Nonspecific abnormal results of liver function s cleo 12/05/2017 documented as of this encounter (statuses as of 10/24/2022) [facility] of [facility] illness Narrative* Problem Noted Date Resolved Date Skin nodule 12/05/2017 05/27/2019 Personal history of smoking 05/01/201404/2016 Overview: Quit using tobacco 2003 Chronic kidney disease (CKD), stage III (moderat e) 03/12/2010 03/26/2020 Overview: [facility] Impaired glucose metabolism 02/2016 Overview: HGBA1C 6.1 08/27/2012 [facility]. He has since 2006 had A1C values in the 5.7-6.1 range and is on medications and does follow any dietary regime. Two times in 2008, the value was 6.5 and 6.8%. I discussed this with him and will change to impaired glucose. Nonspecific abnormal results of liver function s daksha 12/05/2017 documented as of this encounter (statuses as of 01/31/2023) [facility] illness Narrative* Problem Noted Date Resolved Date Skin nodule 12/05/2017 05/27/2019 Personal history of smoking 05/01/201404/2016 Overview: Quit using tobacco 2003 Chronic kidney disease (CKD), stage III (moderat e) 03/12/2010 03/26/2020 Overview: [facility] Impaired glucose metabolism 02/2016 Overview: HGBA1C 6.1 08/27/2012 [facility]. He has since 2006 had A1C values in the 5.7-6.1 range and is on medications and does follow any dietary regime. Two times in 2008, the value was 6.5 and 6.8%. I discussed this with him and will change to impaired glucose. Nonspecific abnormal results of liver function s cleo 12/05/2017 documented as of this encounter (statuses as of 04/17/2023) [facility] Narrative* Problem Noted Date Resolved Date Skin nodule 12/05/2017 05/27/2019 Personal history of smoking 05/01/201404/2016 Overview: Quit using tobacco 2003 Aortic stenosis 08/23/2012 05/05/2023 Chronic kidney disease (CKD), stage III (moderat e) 03/12/2010 03/26/2020 Overview: [facility] Impaired glucose metabolism 02/2016 Overview: HGBA1C 6.1 08/27/2012 [facility]. He has since 2006 had A1C values in the 5.7-6.1 range and is on medications and does follow any dietary regime. Two times in 2008, the value was 6.5 and 6.8%. I discussed this with him and will change to impaired glucose. Nonspecific abnormal results of liver function s tudy 12/05/2017 documented as of this encounter (statuses as of 05/05/2023) [facility] illness Narrative* Problem Noted Date Diagnosed Date Resolved Date Skin nodule 12/05/2017 05/27/2019 Personal history of smoking 05/01/2014 08/18/2016 Overview: Quit using tobacco 2003 Aortic stenosis 08/23/2012 05/05/2023 Chronic kidney disease (CKD) , stage III (moderate) 03/12/2010 03/26/2020 Overview: Dr. Kerri Ornelas, [facility] Impaired glucose metabolism 08/16/2016 Overview: HGBA1C 6.1 08/27/2012 [facility]. He has since 2006 had A1C values in the 5.7-6.1 range and is on medications and does follow any dietary regime. Two times in 2008, the value was 6.5 and 6.8%. I discussed this with him and will change to impaired glucose. Nonspecific abnormal results of liver function study 12/05/2017 documented as of this encounter (statuses as of 07/26/2023) [facility] of [facility] illness Narrative* Problem Noted Date Diagnosed Date Resolved Date Skin nodule 12/05/2017 05/27/2019 Personal history of smoking 05/01/2014 08/18/2016 Overview: Quit using tobacco 2004 Aortic stenosis 08/23/2012 05/05/2023 Chronic kidney disease (CKD) , stage III (moderate) 03/12/2010 03/26/2020 Overview: [facility] Impaired glucose metabolism 08/16/2016 Overview: HGBA1C 6.1 08/27/2012 [facility]. He has since 2006 had A1C values in the 5.7-6.1 range and is on medications and does follow any dietary regime. Two times in 2008, the value was 6.5 and 6.8%. I discussed this with him and will change to impaired glucose. Nonspecific abnormal results of liver function study 12/05/2017 documented as of this encounter (statuses as of 08/29/2023) [facility] illness Narrative* Problem Noted Date Diagnosed Date Resolved Date Skin nodule 12/05/2017 05/27/2019 Personal history of smoking 05/01/2014 08/18/2016 Overview: Quit using tobacco 2003 Aortic stenosis 08/23/2012 05/05/2023 Chronic kidney disease (CKD) , stage III (moderate) 03/12/2010 03/26/2020 Overview: Dr. Kerri Ornelas, [facility] Impaired glucose metabolism 08/16/2016 Overview: HGBA1C 6.1 08/27/2012 [facility]. He has since 2006 had A1C values in the 5.7-6.1 range and is on medications and does follow any dietary regime. Two times in 2008, the value was 6.5 and 6.8%. I discussed this with him and will change to impaired glucose. Nonspecific abnormal results of liver function study 12/05/2017 documented as of this encounter (statuses as of 09/25/2023) [facility] Narrative* Problem Noted Date Diagnosed Date Resolved Date Skin nodule 12/05/2017 05/27/2019 Personal history of smoking 05/01/2014 08/18/2016 Overview: Quit using tobacco 2003 Aortic stenosis 08/23/2012 05/05/2023 Chronic kidney disease (CKD) , stage III (moderate) 03/12/2010 03/26/2020 Overview: [facility] Impaired glucose metabolism 08/16/2016 Overview: HGBA1C 6.1 08/27/2012 [facility]. He has since 2006 had A1C values in the 5.7-6.1 range and is on medications and does follow any dietary regime. Two times in 2008, the value was 6.5 and 6.8%. I discussed this with him and will change to impaired glucose. Nonspecific abnormal results of liver function study 12/05/2017 documented as of this encounter (statuses as of 09/26/2023) [facility] illness Narrative* Problem Noted Date Diagnosed Date Resolved Date Skin nodule 12/05/2017 05/27/2019 Personal history of smoking 05/01/2014 08/18/2016 Overview: Quit using tobacco 2004 Aortic stenosis 08/23/2012 05/05/2023 Chronic kidney disease (CKD) , stage III (moderate) 03/12/2010 03/26/2020 Overview: Dr. Kerri Ornelas, [facility] Impaired glucose metabolism 08/16/2016 Overview: HGBA1C 6.1 08/27/2012 [facility]. He has since 2006 had A1C values in the 5.7-6.1 range and is on medications and does follow any dietary regime. Two times in 2008, the value was 6.5 and 6.8%. I discussed this with him and will change to impaired glucose. Nonspecific abnormal results of liver function study 12/05/2017 documented as of this encounter (statuses as of 10/03/2023) [facility] Diagnosis BPH with urinary obstruction Hypertrophy of prostate with urinary obstruction and other lower urinary tract symptoms (LUTS) Type 2 diabetes mellitus with stage 3 chronic kidney disease, without long-term current use of insulin (HCC) [facility] Diagnosis Medicare annual wellness visit, subsequent- [...] inoculation against influenza documented in this encounter [facility] note* Diagnosis Acute on chronic diastolic (congestive) heart failure (HCC)- Primary documented in this encounter [facility] note* Diagnosis BPH with urinary obstruction Hypertrophy of prostate with urinary obstruction and other lower urinary tract symptoms (LUTS) documented in this encounter [facility] note* Diagnosis Essential hypertension- Primary Unspecified essential [...] status unspecified (HCC) documented in this encounter [facility] note* Diagnosis Type 2 diabetes mellitus with stage 3 chronic kidney disease, without long-term current use of insulin ([facility]) documented in this encounter [facility] note* Diagnosis Dysuria- Primary BPH with urinary obstruction Hypertrophy of prostate with urinary obstruction and other lower urinary tract symptoms (LUTS) Frequency of urination Urinary frequency documented in this encounter [facility] note* Diagnosis Benign prostatic hyperplasia with urinary frequency- Primary Frequency of urination Urinary frequency Screening for genitourinary condition Screening for other and unspecified genitourinary condition documented [facility] encounter [facility] Summary Purpose Family History No Family History [...] of urination Procedures CONSULT TO UROLOGY OFFICE/OUTPATIENT [facility] 60-74 MINUTES Jeremi Morel MD [address] [place] [address] Referral ID Status Reason Start Date Expiration Date Visits Requested Visits Authorized [id number] Pending Review PCP Requested Referral 3 08/27/2024 1 1 Additional Source Comments (unrecognized sect ion and content) No Status Records FoundNo Status Records FoundNo Status Records FoundNo Status Records Found INFORMATION SOURCE (unrecogn ized section and content) DATE CREATED AUTHOR AUTHOR'S ORGANIZ ATION 05/07/2018 [facility] DATE CREATED AUTHOR AUTHOR'S ORGANIZ ATION 01/24/2019 [facility] ([place]) DATE CREATED AUTHOR AUTHOR'S ORGANIZ ATION 10/05/[address] [facility] Source Comments (unrecognize d section and content) In the event this informatio n is protected by the Federal Confidentiality of Alcohol and Drug Abuse Patient Records regulations: The Federal rules restrict any use of the information to criminally investigate or prosecute any alcohol or drug abuse patient.[facility] CenterIn the event this information is protected by the Federal Confidentiality of Alcohol and Drug Abuse Patient Records regulations: The Federal rules restrict any use of the information to criminally investigate or prosecute any alcohol or drug abuse patient.[facility] CenterIn the event this information is protected by the Federal Confidentiality of Alcohol and Drug Abuse Patient Records regulations: The Federal rules restrict any use of the information to criminally investigate or prosecute any alcohol or drug abuse patient.[facility] CenterIn the event this information is protected by the Federal Confidentiality of Alcohol and Drug Abuse Patient Records regulations: The Federal rules restrict any use of the information to criminally investigate or prosecute any alcohol or drug abuse patient.[facility] the event this information is protected by the Federal Confidentiality of Alcohol and Drug Abuse Patient Records regulations: The Federal rules restrict any use of the information to criminally investigate or prosecute any alcohol or drug abuse patient.[facility] CenterIn the event this information is protected by the Federal Confidentiality of Alcohol and Drug Abuse Patient Records regulations: The Federal rules restrict any use of the information to criminally investigate or prosecute any alcohol or drug abuse patient.[facility] CenterIn the event this information is protected by [...] or prosecute any alcohol or drug abuse patient.[facility] CenterIn the event this information is protected by the Federal Confidentiality of Alcohol and Drug Abuse Patient Records regulations: The Federal rules restrict any use of the information to criminally investigate or prosecute any alcohol or drug abuse patient.[facility] CenterIn the event this information is protected by the Federal Confidentiality of Alcohol and Drug Abuse Patient Records regulations: The Federal rules restrict any use of the information to criminally investigate or prosecute any alcohol or drug abuse patient.[facility] CenterIn the event this information is protected by the Federal Confidentiality of Alcohol and Drug Abuse Patient Records regulations: The Federal rules restrict any use of the information to criminally investigate or prosecute any alcohol or drug abuse patient.[facility] CenterIn the event this information is protected by the Federal Confidentiality of Alcohol and Drug Abuse Patient Records regulations: The Federal rules restrict any use of the information to criminally investigate or prosecute any alcohol or drug abuse patient.[facility] Reason for Visit (unrecogniz ed section and [...] HIGH MDM 60-74 MINUTES Jeremi Morel MD [address] [place] [address] Referral ID Status Reason Start Date Expiration Date Visits Requested Visits Authorized [id number] Pending Review PCP Requested Referral 3 08/27/2024 1 1 Reason Comments Outside medical records Reason Comments Opened In Error Care Teams (unrecognized sec tion and content) Auto Wrecker Relationship Specialty Start Date End Date Jeremi Morel MD [address] [place] [address] PCP - General Internal Medicine 08/19/16 Thompson Diggs [address] [address] Physician Cardiology 02/01/19 Auto Wrecker Relationship Specialty Start Date End Date Jeremi Morel MD [address] [place] [address] PCP - General Internal Medicine 08/19/16 Caterina, [place] S [address] [place] [address] Physician Cardiology 02/01/19 Auto Wrecker Relationship Specialty Start Date End Date Jeremi Morel MD [address] [facility] [place] [address] PCP - General Internal Medicine 08/19/16 Caterina, Thompson S [address] [place] [address] Physician Cardiology 02/01/19 Auto Wrecker Relationship Specialty Start Date End Date Jeremi Morel MD [address] [facility] [place] [address] PCP - General Internal Medicine 08/19/16 Caterina, Thompson S [address] [place] [address] Physician Cardiology 02/01/19 Auto Wrecker Relationship Specialty Start Date End Date Jeremi Morel MD [address] [facility] [place] [address] PCP - General Internal Medicine 08/19/16 Caterina, Thompson S [address] [place] [address] Physician Cardiology 02/01/19 Auto Wrecker Relationship Specialty Start Date End Date Jeremi Morel MD [address] [place] [address] PCP - General Internal Medicine 08/19/16 Caterina, [place] S [address] [place] [address] Physician Cardiology 02/01/19 Auto Wrecker Relationship Specialty Start Date End Date Jeremi Morel MD [address] [place] [address] PCP - General Internal Medicine 08/19/16 Thompson Diggs MD [address] [address] Physician Cardiology 02/01/19 Auto Wrecker Relationship Specialty Start Date End Date Jeremi Morel MD [address] [place] [address] PCP - General Internal Medicine 08/19/16 Thompson Diggs MD [address] [address] Physician Cardiology 02/01/19 Auto Wrecker Relationship Specialty Start Date End Date Jeremi Morel MD [address] [place] [address] PCP - General Internal Medicine 08/19/16 Thompson Diggs MD [address] [address] Physician Cardiology 02/01/19 Auto Wrecker Relationship Specialty Start Date End Date Jeremi Morel MD [address] [place] [address] PCP - General Internal Medicine 08/19/16 Thompson Diggs MD [address] [address] Physician Cardiology 02/01/19 FOR RECORDS PERTAINING TO [...] BE BASED ON THE PRIMARY CLINICAL RECORDS. [employer] [facility]. provides no warranty or guarantee of the accuracy or completeness of information in this document.
[2023-11-25] MEDS: clonazePAM 0.5 MG Tablet PO (12:39)
[2023-11-25 13:19] LABS: Lactic Acid 1.9 mmol/L (0.4-1.9)
[2023-11-25] MEDS: Furosemide 20 MG/2 ML VIAL IV ×2 (14:30→21:54)
[2023-11-25] MEDS: 0.9% Saline Lock 10 ML Syringe IV ×2 (14:31→21:54)
[2023-11-25 16:38] LABS: Bedside Glucose 142 mg/dL (74-106)
[2023-11-25] MEDS: Tamsulosin HCl 0.4 MG Capsule 0.800000000000000044 MG PO (17:13)
--- NOTE | 2023-11-25 18:20 | PCM.HP.STD ---
HPI - General General Date of Admission: 11/25/23 Date of Service: 11/25/23 Chief Complaint: Shortness of breath, malaise HPI Narrative TIRSO CALDERÓN, is a 88 M who presents to the emergency room at [facility] with complaints of shortness of breath over the last 48 hours along with malaise. Patient denies any cough, he denies any chest pain, he denies any fever or chills. Workup in the emergency room included a CBC which showed a normal white blood cell count, hemoglobin was slightly low at 12.3, chemistry profile was remarkable for glucose of 227 and a BUN of 25. Patient had a chest x-ray performed which showed bilateral infiltrates, CTA of the chest was also performed which again showed bilateral infiltrates suspicious for either pneumonia or edema, there were bilateral pleural effusions and there was a left lower lobe consolidation noted.. Patient's beta natruretic peptide was slightly elevated at 209, urinalysis was unremarkable except for an elevated leukocyte esterase Patient required oxygen at 2 L/min via nasal cannula to maintain a pulse ox above 90%. Patient will be admitted to PCU for acute on chronic diastolic congestive heart failure with hypoxia, he will be given IV Lasix, chest x-ray will be repeated tomorrow, pulse ox will be monitored. I do not feel the patient has a community-acquired pneumonia. [facility] Medical History Abnormal LFTs Abrasions of multiple sites Acute on chronic renal failure Anxiety and depression Atherosclerosis of coronary artery of [place] heart without angina pectoris BPH (benign prostatic hyperplasia) Bradycardia Carotid artery bruit Chronic diastolic (congestive) heart failure Chronic renal failure, stage 2 (mild) Dehydration Elevated LFTs Essential (primary) hypertension Fall Frequent falls Hyperkalemia Hyperlipidemia Hypoglycemia associated with type 2 diabetes mellitus Hyponatremia Iron deficiency anemia Left bundle branch block Near syncope Non-rheumatic aortic stenosis Obesity Paroxysmal atrial fibrillation Physical debility Pleural effusion on left Postoperative atrial fibrillation (01/01/19) Secondary pulmonary arterial hypertension Significant closed head trauma within past 3 months Stenosis of right subclavian artery Thrombocytopenia Thyroid nodule Type 2 diabetes mellitus Vitamin D deficiency Home Medications vitamins A,C,W-rcrd-tddhmm 4,296 mcg-226 mg-90 mg capsule 1 cap PO BID E[facility] 03/07/19 [History Last Taken 10/25/19] xgzlsaot-qt-ngzmp 300 mcg-K 60 mcg-lycop 600 mcg-lutein 300 mcg tablet 1 tab PO DAILY supplement 10/25/19 [History Last Taken 10/25/19] Iron 65 mg PO BID 01/15/21 [History Last Taken Unknown] furosemide 40 mg tablet (Lasix) 40 mg PO DAILY #90 tabs 01/12/23 [Rx Last Taken Unknown] mirtazapine 7.5 mg tablet 7.5 mg PO DAILY 02/14/23 [History Last Taken Unknown] amlodipine 10 mg tablet 10 mg PO DAILY #90 tabs 04/26/23 [Rx Last Taken Unknown] apixaban 2.5 mg tablet 2.5 mg PO BID anticoagulant #60 tabs 04/26/23 [Rx Last Taken Unknown] atorvastatin 40 mg tablet 40 mg PO DAILY antihyperlipidemics #90 tabs 04/26/23 [Rx Last Taken Unknown] lisinopril 20 mg tablet 20 mg PO BID this is a dose increase #180 tabs 04/26/23 [Rx Last Taken Unknown] metoprolol tartrate 25 mg tablet 12.5 mg (1/2 x 25 mg) PO BID high blood pressure #90 tabs 04/26/23 [Rx Last Taken Unknown] clonazepam 0.5 mg tablet (Klonopin) 0.5 mg PO DAILY PRN anxiety 08/08/23 [History Last Taken Unknown] buspirone 15 mg tablet 15 mg PO BID 11/25/23 [History Last Taken Unknown] doxepin 50 mg capsule 50 mg PO QHS 11/25/23 [History Last Taken Unknown] insulin lispro protamine-lispro 100 unit/mL (50-50) subcutaneous pen (Humalog Mix 50-50 KwikPen) See Rx Instructions subcut .COMPLEX 11/25/23 [History Last Taken Unknown] melatonin 5 mg tablet 5 mg PO QHS 11/25/23 [History Last Taken Unknown] tamsulosin 0.4 mg capsule 0.8 mg PO DAILY@1730 diuretic 11/25/23 [History Last Taken Unknown] Allergy/AdvReac Type Severity Reaction Status Date / Time No Known Allergies Allergy Verified 11/25/23 06:26 Family History Father CVA (cerebral vascular accident) Mother COPD (chronic obstructive pulmonary disease) Surgical History H/O aortic valve replacement (01/01/19) H/O coronary artery bypass surgery (01/01/19) History of cataract surgery History of hip replacement History of left heart catheterization (10/31/18) History of open reduction and internal fixation (ORIF) procedure History of thoracentesis (01/05/19) Social History Smoking Status: Former smoker quit date: 11/13/03 how long ago did patient quit smoking: cigars ROS Constitutional Constitutional: Reports fatigue and malaise; Denies anorexia, change in weight, chills, fever(s), night sweats or weakness Eyes Eyes: Denies blurry vision, change in vision, discharge from eye(s) or eye pain Cardiovascular Cardiovascular: Reports dyspnea on exertion; Denies chest pain, claudication, edema or palpitations Respiratory/Chest Respiratory/Chest: Reports dyspnea, shortness of breath at rest and shortness of breath with exertion; Denies cough or hemoptysis Gastrointestinal Gastrointestinal: Denies abdominal pain, constipation, diarrhea, hematemesis, hematochezia, melena, nausea or vomiting Genitourinary Genitourinary: Denies dysuria, hematuria, urinary frequency, urinary hesitancy, urinary incontinence or urinary urgency Musculoskeletal Musculoskeletal: Denies back pain, joint pain, joint stiffness, joint swelling, myalgias or neck pain Neurologic Neurologic: Denies abnormal gait, abnormal speech, confusion, dizziness, focal weakness, headache(s), loss of vision, numbness, other visual disturbances, paresthesias, syncope or tingling Psychiatric Psychiatric: Denies anxiety, cognitive impairment, depression, irritability, mood swings or suicidal ideation Endocrine Endocrinology: Denies change in body appearance, cold intolerance, excessive sweating, heat intolerance, polydipsia or polyuria Hematologic/Lymphatic Hematologic/Lymphatic: Denies none, anemia, easy bleeding, easy bruising or lymphadenopathy Allergic/Immunologic Allergic/Immunologic: Denies rhinitis, urticaria, eczemia or asthma Vital Signs Vital Signs Vital Signs: 11/25/23 06:27 11/25/23 06:29 11/25/23 06:32 Temperature 98 F 98 F Temperature Source Temporal Temporal Pulse Rate 100 100 Respiratory Rate 24 H 24 H Respiratory Effort Short of Breath Respiratory Depth Respiratory Pattern Blood Pressure 112/67 112/67 Blood Pressure Mean 82 82 Blood Pressure Source Blood Pressure Position Blood Pressure Location Pulse Ox 93 93 Oxygen Delivery Method Oxygen Flow Rate (L/min) 11/25/23 06:47 11/25/23 10:38 11/25/23 11:02 Temperature 97.6 F L Temperature Source Pulse Rate 105 H 92 Respiratory Rate 28 H 25 H Respiratory Effort Short of Breath Respiratory Depth Normal Respiratory Pattern Tachypnea Blood Pressure 154/74 H Blood Pressure Mean 100 Blood Pressure Source Blood Pressure Position Blood Pressure Location Pulse Ox 84 92 Oxygen Delivery Method Room Air Room Air Oxygen Flow Rate (L/min) 11/25/23 11:16 11/25/23 11:50 11/25/23 13:36 Temperature 97.6 F L Temperature Source Temporal Pulse Rate 99 109 H Respiratory Rate 26 H 18 Respiratory Effort Respiratory Depth Respiratory Pattern Blood Pressure 155/77 H 177/85 H Blood Pressure Mean 103 115 Blood Pressure Source Monitor Blood Pressure Position Semi-Fowlers Blood Pressure Location Left Arm Pulse Ox 95 96 Oxygen Delivery Method Nasal Cannula Nasal Cannula Nasal Cannula Oxygen Flow Rate (L/min) 2 2 2 11/25/23 14:35 11/25/23 17:50 Temperature 98.1 F Temperature Source Temporal Pulse Rate 97 Respiratory Rate 16 Respiratory Effort Normal Respiratory Depth Shallow Respiratory Pattern Normal Blood Pressure 144/83 H Blood Pressure Mean 103 Blood Pressure Source Monitor Blood Pressure Position Sitting Blood Pressure Location Left Arm Pulse Ox 95 Oxygen Delivery Method Nasal Cannula Nasal Cannula Oxygen Flow Rate (L/min) 2 Weight Weight: 93.3 kg Body Mass Index (BMI) 31.2 Physical Exam Const alert, oriented x3, no apparent distress, average body habitus and healthy appearing General Appearance: cooperative, well kempt and well developed Orientation / Consciousness: awake, oriented to person, oriented to place and oriented to time HEENT normocephalic, head/scalp atraumatic, hearing grossly normal bilaterally and moist oral mucous membranes Eyes PERRL, EOMs intact bilaterally and conjunctivae normal Neck supple, no JVD, thyroid normal and no carotid bruits General: trachea midline Resp normal respiratory effort, no retractions and no use of accessory muscles Resp Narrative: There are inspiratory rales at the bases bilaterally with decreased breath sounds Auscultation: Negative for rales, rhonchi or wheezes Cardio regular rate, regular rhythm, S1 normal heart sound, S2 normal heart sound, no murmurs, no rub and no gallops GI normal to inspection, nondistended, normoactive bowel sounds, soft to palpation, non-tender and non-distended Extremity no clubbing, cyanosis or edema Skin no rashes or lesions noted General Skin Exam: no breakdown Neuro oriented x3, CN's II-XII intact bilaterally, no focal motor deficits and no sensory deficits noted Sensorium / Orientation: awake, alert, oriented to person, oriented to place and oriented to time Speech: speech normal Psych affect normal Results Lab / Micro Data 11/25/23 06:40 11/25/23 06:40 Labs: Laboratory Results - last 24 hr 11/25/23 06:40: WBC 7.8, RBC 4.15 L, Hgb 12.3 L, Hct 37.7 L, MCV 90.8, MCH 29.6, MCHC 32.6, RDW Std Deviation 43.8, RDW Coeff of Torie 13.4, Plt Count 143 L, MPV 11.9, Immature Gran % (Auto) 0.500, Neut % (Auto) 73.3 H, Lymph % (Auto) 16.1 L, [place] % (Auto) 6.8, Eos % (Auto) 2.8, Baso % (Auto) 0.5, Absolute Neuts (auto) 5.7, Absolute Lymphs (auto) 1.25, Nucleated RBC % 0, PT 14.8, INR 1.2, APTT 31.6, Sodium 138, Potassium 3.8, Chloride 104, Carbon Dioxide 23.0, Anion Gap 11, BUN 25 H, Creatinine 1.25, Estim Creat Clear Calc 47.16, Est GFR (MDRD) Af Amer 70, Est GFR (MDRD) Non-Af 58 L, BUN/Creatinine Ratio 20.0, Glucose 227 H, Lactic Acid 2.8 H*, Calcium 9.8, Troponin I High Sens 26, B-Natriuretic Peptide 209.0 H, Lipase 26 11/25/23 08:49: Urine Color Yellow, Urine Clarity Clear, Urine pH 6.5, Ur Specific [place] 1.010, Urine Protein 15 H, Urine Glucose (UA) Normal, Urine Ketones Negative, Urine Occult Blood Negative, Urine Nitrite Negative, Urine Bilirubin Negative, Urine Urobilinogen Normal, Ur Leukocyte Esterase 100 H, Urine RBC 0 SEEN, Urine WBC 0-5 SEEN, Ur Squamous Epith Cells 0 SEEN, Urine Bacteria 0 SEEN, Urine Mucus 0 SEEN 11/25/23 11:50: Lactic Acid 1.9 11/25/23 16:18: POC Glucose 142 H Micro: Microbiology 11/25/23 07:22 Mucosa - Nose SARS-CoV-2, Influenza & RSV (PCR) - Final Imagaing Radiology Impression Chest X-Ray 11/25/23 07:02 IMPRESSION: Scattered bilateral airspace opacities consistent with pneumonia and small bilateral pleural effusions. Electronically Signed: Pepe Gr DO at 7:36 EST , Chest CTA 11/25/23 08:52 IMPRESSION: No demonstrated pulmonary embolism or arterial dissection. Bilateral pleural effusions associated with left lower lobe consolidation. Bilateral groundglass opacities, may be secondary to edema and/or an infectious process. Enlarged mediastinal lymph nodes, may be reactive however cannot entirely exclude a neoplastic process. Hiatal hernia. Electronically Signed: Priya Gonzalez MD at 9:28 EST , ADDENDUM: 11/25/23 0953 IMPRESSION: undefined Assessment & Plan Assessment/Plan (1) Congestive heart failure: PLAN: Plan 1. Acute on chronic diastolic congestive heart failure-patient will be admitted to PCU, IV Lasix will be administered, repeat chest x-ray will be obtained tomorrow #2 hypoxia secondary to #1-patient is currently on low-flow nasal cannula oxygen, pulse ox will be monitored and oxygen will be adjusted as needed #3 essential hypertension-patient will remain on his home medications #4 paroxysmal atrial fibrillation-patient is currently on apixaban and rate limiting medication, he will be monitored on telemetry #5 type 2 diabetes-fingerstick blood sugars will be monitored, sliding scale insulin will be administered as needed, patient was changed to NovoLog 75/25 insulin due to the fact we do not stock his home Humulin 50/50 insulin. #6 pulmonary hypertension-patient has moderate pulmonary hypertension on his last echocardiogram, again he will be placed on IV diuretics #7 coronary artery disease-patient will remain on his home medications, complicates care, medical course, recovery, and prognosis Total clinical time spent by myself addressing the patient's medical issues, reviewing all of his data, and collaborating with patient's care team: 75 minutes Charges/Coding Visit Charges Inpatient E&M: 96124 Init Hosp L3
[2023-11-25] MEDS: busPIRone 15 MG TABLET PO (20:48)
[2023-11-25] MEDS: APIXABAN 2.5 MG TABLET (WCH) PO (20:49)
[2023-11-25] MEDS: Metoprolol Tartrate 25 MG Tablet 12.5 MG PO (20:49)
[2023-11-25] MEDS: DOXEPIN HCL 50 MG CAPSULE PO (20:49)
[2023-11-25] MEDS: Lisinopril 20 MG Tablet PO (20:50)
[2023-11-25] MEDS: MELATONIN 10 MG TABLET 5 MG PO (20:51)
[2023-11-25] MEDS: Insulin Lispro 100 UNIT/ML INSULN.PEN SC (21:37)
[2023-11-26] VITALS (7 sets, daily range): BP systolic 101–125; BP diastolic 65–72; PULSE 60–80; RESP 16–18; TEMP 36.6–36.7; O2SAT 93–96; BMI 30.1
[2023-11-26 00:41] LABS: Bedside Glucose 172 mg/dL (74-106)
--- NOTE | 2023-11-26 04:58 | EKG12_ITS ---
Test Reason : A.M. EKG Blood Pressure : / mmHG Vent. Rate : 069 BPM Atrial Rate : 069 BPM P-R Int : 206 ms QRS Dur : 130 ms QT Int : 492 ms P-R-T Axes : 069 073 135 degrees QTc Int : 527 ms Sinus rhythm with frequent and consecutive Premature ventricular complexes Non-specific intra-ventricular conduction block Abnormal QRS-T angle, consider primary T wave abnormality Abnormal ECG Confirmed by ERIN BLANK, GENOVEVA ([id number]), news video editor MARICRUZ ANGUIANO ([id number]) on 11/27/2023 2:05:20 PM Referred By: Confirmed By:GENOVEVA KHAN MD
--- NOTE | 2023-11-26 05:55 | RAD_ITS ---
EXAM: XR CHEST, 1 VIEW CLINICAL INDICATION: CHF TECHNIQUE: Frontal view of the chest. COMPARISON: XR Chest dated 11/25/2023 FINDINGS: LUNGS AND PLEURAL SPACES: Improving pulmonary vascular congestion and bilateral pulmonary edema. Residual small bilateral pleural effusions. HEART: Stable normal heart size. Aortic valve prosthesis again seen. MEDIASTINUM: No mediastinal or hilar mass. BONES/JOINTS: Sternotomy wires in place. RAD/Chest 1 View (Portable) IMPRESSION: Resolving CHF and pulmonary edema. Electronically Signed: Dejon Carrasquillo MD at 8:49 EST ,
[2023-11-26] MEDS: Furosemide 20 MG/2 ML VIAL IV ×2 (06:25→14:44)
[2023-11-26] MEDS: 0.9% Saline Lock 10 ML Syringe IV (06:25)
[2023-11-26] MEDS: Insulin Lispro 100 UNIT/ML INSULN.PEN SC ×2 (06:34→11:13)
[2023-11-26 06:51] LABS: Absolute Lymphocyte Count 1.44 X10^3/uL (0.83-4.51); Absolute Neutrophil Count 5.3 X10^3/uL (2.0-7.7); Basophil# 0.05 X10^3/uL; Basophil% 0.6 % (0-1); Eosinophil# 0.17 X10^3/uL; Eosinophils% 2.2 % (0-5); Hematocrit 36.1 % (40-54); Hemoglobin 11.7 g/dL (13.0-16.5); Lymphocyte # 1.44 X10^3/ul (0.83-4.51); Lymphocyte % 18.6 % (19-41); Mean Corp Hgb Conc 32.4 g/dL (32-36); Mean Corpuscular Hgb 29.4 pg (27.0-32.0); Mean Corpuscular Volume 90.7 fL (80-94); Mean Platelet Vol. 11.5 fl (6.2-12.0); Monocyte# 0.79 X10^3/uL; Monocyte% 10.2 % (0-10); NRBC Flagged by Analyzer 0 % (0-5); Neutrophil # 5.29 X10^3/uL (2.7-7.7); Neutrophil % 68.1 % (47-70); Platelet Count 154 K/mm3 (150-450); RBC Distribution Width CV 13.4 % (11.6-14.6); RBC Distribution Width SD 44.2 fl (35.1-43.9); Red Blood Count 3.98 M/mm3 (4.6-6.2); White Blood Count 7.8 K/mm3 (4.4-11.0)
[2023-11-26 07:16] LABS: Bedside Glucose 152 mg/dL (74-106)
[2023-11-26] MEDS: amLODIPine 10 MG Tablet PO ×2 (08:23→08:24)
[2023-11-26] MEDS: Metoprolol Tartrate 25 MG Tablet 12.5 MG PO ×2 (08:24→22:02)
[2023-11-26] MEDS: APIXABAN 2.5 MG TABLET (WCH) PO ×2 (08:24→22:01)
[2023-11-26] MEDS: busPIRone 15 MG TABLET PO ×2 (08:25→22:01)
[2023-11-26] MEDS: Lisinopril 20 MG Tablet PO ×2 (08:25→22:03)
[2023-11-26] MEDS: Mirtazapine 15 MG Tablet 7.5 MG PO (08:26)
[2023-11-26] MEDS: Atorvastatin Calcium 40 MG Tablet PO (08:26)
[2023-11-26] MEDS: Insulin Human 75/25 Kwickpen 30 UNIT SC ×2 (08:26→16:47)
[2023-11-26] MEDS: Flu Vacc QS2023-24(65YR UP)/PF 240 MCG/0.7 ML Syringe IM (08:35)
[2023-11-26] MEDS: clonazePAM 0.5 MG Tablet PO (08:35)
[2023-11-26 10:37] LABS: Anion Gap 8 (5-15); BUN 21 mg/dL (7-18); BUN/Creat Ratio 19.3 RATIO (10-20); Calcium,Total 9.2 mg/dL (8.5-10.1); Chloride 106 mmol/L (98-107); Creatinine, Serum 1.09 mg/dL (0.70-1.30); EST Glomerular Filtration Rate 68 mL/min (>60); Est Glom Filt Rate - Afr Amer 82 mL/min (>60); Estimated Creatinine Clearance 52.98 ml/min; Glucose 120 mg/dL (74-106); Potassium 3.7 mmol/L (3.5-5.1); Sodium Level 142 mmol/L (136-145)
[2023-11-26 11:32] LABS: Bedside Glucose 196 mg/dL (74-106)
[2023-11-26] MEDS: Tamsulosin HCl 0.4 MG Capsule 0.800000000000000044 MG PO (16:49)
[2023-11-26 17:29] LABS: Bedside Glucose 128 mg/dL (74-106)
--- NOTE | 2023-11-26 19:33 | PCM.PN.HOSP ---
Reason for Visit Reason for Visit: Diagnoses Heart failure, unspecified (11/25/23) Subjective Subjective Patient was seen and examined today, he is currently on room air and appears comfortable at rest. Chest x-ray obtained today showed improved congestive heart failure. Patient had some urinary hesitancy and had a Webster placed yesterday, I talked him briefly about this and we will try to remove the Webster tomorrow and make sure he voids before he leaves. I anticipate if he is medically stable tomorrow he will be able to be discharged Objective Data Objective Data Vital Signs: Vital Signs Temp Pulse Resp BP Pulse Ox O2 Del Method O2 Flow Rate 98.1 F 60 16 105/71 96 Room Air 2 11/26/23 14:37 11/26/23 14:37 11/26/23 14:37 11/26/23 14:37 11/26/23 14:37 11/26/23 14:37 11/26/23 02:42 Oxygen Flow Rate (L/min) 2 Oxygen Delivery Method Room Air Weight: 89.9 kg Body Mass Index (BMI) 30.1 Intake & Output: Intake and Output for Last 24 Hours 11/24/23 11/25/23 11/26/23 23:59 23:59 23:59 Intake Total 1150 / 1500 350 / 350 Output Total 1825 / 2975 2500 / 2500 Balance -675 / -1475 -2150 / -2150 Lab / Micro Data 11/26/23 04:47 11/27/23 05:42 Labs: Laboratory Results - last 24 hr 11/25/23 21:32: POC Glucose 172 H 11/26/23 04:47: WBC 7.8, RBC 3.98 L, Hgb 11.7 L, Hct 36.1 L, MCV 90.7, MCH 29.4, MCHC 32.4, RDW Std Deviation 44.2 H, RDW Coeff of Torie 13.4, Plt Count 154, MPV 11.5, Immature Gran % (Auto) 0.300, Neut % (Auto) 68.1, Lymph % (Auto) 18.6 L, [place] % (Auto) 10.2 H, Eos % (Auto) 2.2, Baso % (Auto) 0.6, Absolute Neuts (auto) 5.3, Absolute Lymphs (auto) 1.44, Nucleated RBC % 0, Sodium 142, Potassium 3.7, Chloride 106, Carbon Dioxide 28.0, Anion Gap 8, BUN 21 H, Creatinine 1.09, Estim Creat Clear Calc 52.98, Est GFR (MDRD) Af Amer 82, Est GFR (MDRD) Non-Af 68, BUN/Creatinine Ratio 19.3, Glucose 120 H, Calcium 9.2 11/26/23 06:29: POC Glucose 152 H 11/26/23 11:12: POC Glucose 196 H 11/26/23 16:45: POC Glucose 128 H Micro: Microbiology 11/25/23 07:22 Mucosa - Nose SARS-CoV-2, Influenza & RSV (PCR) - Final Radiography Diagnostic Testing: Radiology Impression Chest X-Ray 11/26/23 05:55 IMPRESSION: Resolving CHF and pulmonary edema. Electronically Signed: Dejon Carrasquillo MD at 8:49 EST Reading Location ID and State: [address] [place] [address] Tel , Service support , Physical Exam Narrative alert, oriented x3, no apparent distress, average body habitus and healthy appearing General Appearance: cooperative, well kempt and well developed Orientation / Consciousness: awake, oriented to person, oriented to place and oriented to time HEENT normocephalic, head/scalp atraumatic, hearing grossly normal bilaterally and moist oral mucous membranes Eyes PERRL, EOMs intact bilaterally and conjunctivae normal Neck supple, no JVD, thyroid normal and no carotid bruits General: trachea midline Resp normal respiratory effort, no retractions and no use of accessory muscles Resp Narrative: There are inspiratory rales at the bases bilaterally with decreased breath sounds Auscultation: Negative for rales, rhonchi or wheezes Cardio regular rate, regular rhythm, S1 normal heart sound, S2 normal heart sound, no murmurs, no rub and no gallops GI normal to inspection, nondistended, normoactive bowel sounds, soft to palpation, non-tender and non-distended Extremity no clubbing, cyanosis or edema Skin no rashes or lesions noted General Skin Exam: no breakdown Neuro oriented x3, CN's II-XII intact bilaterally, no focal motor deficits and no sensory deficits noted Sensorium / Orientation: awake, alert, oriented to person, oriented to place and oriented to time Speech: speech normal Psych affect normal Assessment & Plan Assessment/Plan (1) Congestive heart failure: PLAN: Plan 1. Acute on chronic diastolic congestive heart failure-continue IV Lasix and recheck a BMP tomorrow #2 hypoxia secondary to #1-patient is currently on room air, I do not anticipate sending the patient home on oxygen #3 essential hypertension-patient will remain on his home medications #4 paroxysmal atrial fibrillation-patient is currently on apixaban and rate limiting medication, he will be monitored on telemetry #5 type 2 diabetes-fingerstick blood sugars will be monitored, sliding scale insulin will be administered as needed, patient was changed to NovoLog 75/25 insulin due to the fact we do not stock his home Humulin 50/50 insulin. #6 pulmonary hypertension-patient has moderate pulmonary hypertension on his last echocardiogram, again he will be placed on IV diuretics #7 coronary artery disease-patient will remain on his home medications, complicates care, medical course, recovery, and prognosis #8 acute urinary retention due to BPH-patient follows up with urologist as an outpatient, I will maintain his Webster catheter for now and add Proscar to his home medication list when he is discharged Total clinical time spent by myself addressing the patient's medical issues, reviewing all of his data, and collaborating with patient's care team: 35 minutes Charges/Coding Visit Charges Inpatient E&M: 21661 Subs Hosp L2
[2023-11-26] MEDS: DOXEPIN HCL 50 MG CAPSULE PO (22:01)
[2023-11-26] MEDS: MELATONIN 10 MG TABLET 5 MG PO (22:01)
[2023-11-26 22:32] LABS: Bedside Glucose 114 mg/dL (74-106)
[2023-11-27 03:50] VITALS: BP 114/74; PULSE 66; RESP 16; TEMP 36.6; O2SAT 93
[2023-11-27 04:11] VITALS: BMI 30.2
[2023-11-27 06:27] LABS: Anion Gap 7 (5-15); BUN 27 mg/dL (7-18); BUN/Creat Ratio 23.5 RATIO (10-20); Calcium,Total 8.8 mg/dL (8.5-10.1); Chloride 106 mmol/L (98-107); Creatinine, Serum 1.15 mg/dL (0.70-1.30); EST Glomerular Filtration Rate 64 mL/min (>60); Est Glom Filt Rate - Afr Amer 78 mL/min (>60); Estimated Creatinine Clearance 50.24 ml/min; Glucose 142 mg/dL (74-106); Potassium 3.4 mmol/L (3.5-5.1); Sodium Level 142 mmol/L (136-145)
[2023-11-27 06:58] VITALS: O2SAT 94
[2023-11-27 08:56] VITALS: BP 113/60; PULSE 78; RESP 16; TEMP 37.2; O2SAT 96
[2023-11-27] MEDS: Insulin Lispro 100 UNIT/ML INSULN.PEN SC ×2 (08:58→11:19)
[2023-11-27] MEDS: Insulin Human 75/25 Kwickpen 30 UNIT SC (08:58)
[2023-11-27 08:59] VITALS: PULSE 78
[2023-11-27] MEDS: APIXABAN 2.5 MG TABLET (WCH) PO (08:59)
[2023-11-27] MEDS: Mirtazapine 15 MG Tablet 7.5 MG PO (08:59)
[2023-11-27] MEDS: Metoprolol Tartrate 25 MG Tablet 12.5 MG PO (08:59)
[2023-11-27] MEDS: Atorvastatin Calcium 40 MG Tablet PO (08:59)
[2023-11-27] MEDS: amLODIPine 10 MG Tablet PO (08:59)
[2023-11-27] MEDS: Lisinopril 20 MG Tablet PO (08:59)
[2023-11-27] MEDS: busPIRone 15 MG TABLET PO (08:59)
[2023-11-27] MEDS: Furosemide 20 MG/2 ML VIAL IV (09:00)
[2023-11-27 09:10] LABS: Bedside Glucose 168 mg/dL (74-106)
[2023-11-27] MEDS: clonazePAM 0.5 MG Tablet PO (11:19)
[2023-11-27] MEDS: 0.9% Saline Lock 10 ML Syringe IV (11:19)
[2023-11-27 11:26] LABS: Bedside Glucose 159 mg/dL (74-106)
--- NOTE | 2023-11-27 11:40 | CASEMGMT ---
RN KIERA Face to Face with patient for initial transition planning/care coordination assessment. RN CM introduced self and role at [facility]. Patient lying in bed, alert and oriented. Patient willing to participate in assessment and is able to answer all questions appropriately. Care providers, pharmacy, and demographics verified. Patient wishes to discharge home, denies need for home health at this time. Patient states he has no further needs or concerns at this time. CM to follow for discharge planning needs that may arise. PCP: Adriel Specialists: , supervisor central supply; Caterina, cold working inspector; [facility] Preferred Pharmacy: [facility] Insurance: [employer] Prescription Benefit: yes Living Will/HPOA: yes, daughter Josie Fair LNOK: daughter Living Arrangements: Patient lives alone in a first floor apartment with no steps to enter. Patient states he is independent at home. Transportation: self, brother DME/HHC: Patient states he has grab bars, walker, and glucometer with supplies at home. Patient has been to [facility] previously, no previous HHC. Disposition Plan: Patient to discharge home with family support and follow-up plans in place. Gi DUVALL, RN, CM
[2023-11-27 15:00] VITALS: BP 112/70; PULSE 68; RESP 18; TEMP 36.6; O2SAT 92
--- NOTE | 2023-11-27 15:44 | CHAPLAIN ---
Type of Pastoral Visit _x__ Initial Visit ___ Follow-up Visit ___ On-call Visit ___ General Patient Visit ___ Spiritual Assessment ___ Family Conference ___ Bereavement ___ Rapid Response ___ Code Blue ___ Other (describe below) Pastoral Care Referral From _x__ Patient ___ Family ___ Nurse ___ Physician ___ Customer Records Division Supervisor ___ Portal Developer ___ Other (describe below) Sacrament/Intervention _x__ Active listening ___ Anointing ___ Yazdanism ___ Bereavement ___ Communion ___ Asiya exploration ___ _x__ Life review _x__ Prayer ___ Reconciliation ___ Sacrament of Sick _x__ Supportive presence ___ Wedding ___ Other (describe below) Pastoral Comments patient is welcoming and identifies self as a patient who is a 'sinner' and has a pee problem; pt talks about his life and is open for a prayer; however, pt does not speak much about asiya; pt does have some family support
--- NOTE | 2023-11-27 16:49 | PCM.DC ---
Discharge Instructions Diet Discharge Diet: 1800 Calorie Control Diet Activity Discharge Activity: Return to Normal Activity Weight Bearing Status: Full weight bearing Follow Up Care Test Results: Test results from this visit will be discussed in further detail at your follow-up appointment, if applicable. Discharge Plan Admission Admit Date/Time: 11/25/23 11:11 Primary Reason for Your Visit: congestive heart failure Attending Provider: Jim Haque Primary Care Provider: Jeremi Morel Instructions Additional Instructions / Restrictions: Follow-up with your urologist within 1 month Discharge Orders/Prescriptions Prescriptions: New finasteride [Proscar] 5 mg tablet 5 mg PO DAILY Qty: 30 0RF Rx Instructions: take one daily for prostate furosemide [Lasix] 40 mg tablet 40 mg PO BID Qty: 60 0RF potassium chloride 10 mEq tablet extended release 20 meq PO DAILY Qty: 60 0RF Continued mirtazapine 7.5 mg tablet 7.5 mg PO DAILY clonazepam [Klonopin] 0.5 mg tablet 0.5 mg PO DAILY PRN (Reason: anxiety) vitamins A,C,N-ayxu-ttzeud 1 EACH capsule 1 cap PO BID Iron 65 mg PO BID [id number]-[id number]-[id number] 1 EACH tablet 1 tab PO DAILY doxepin 50 mg capsule 50 mg PO QHS Patient Comments: TAKE 1 CAPSULE BY MOUTH AT BEDTIME buspirone 15 mg tablet 15 mg PO BID Patient Comments: TAKE 1 TABLET BY MOUTH TWICE DAILY melatonin 5 mg tablet 5 mg PO QHS tamsulosin 0.4 MG capsule 0.8 mg PO DAILY@1730 Humalog Mix 50-50 KwikPen 100 unit/mL (50-50) insulin pen See Rx Instructions SC .COMPLEX Rx Instructions: 30 units subcutaneously AM; 28 units PM apixaban 2.5 mg tablet 2.5 mg PO BID Qty: 60 11RF amlodipine 10 mg tablet 10 mg PO DAILY Qty: 90 3RF metoprolol tartrate 25 mg tablet 12.5 mg PO BID Qty: 90 3RF lisinopril 20 mg tablet 20 mg PO BID Qty: 180 3RF atorvastatin 40 mg tablet 40 mg PO DAILY Qty: 90 3RF No Action furosemide [Lasix] 40 mg tablet 40 mg PO DAILY Qty: 90 3RF Referrals / Follow Up: Jeremi Morel MD [Primary Care Provider] - Within 2 Weeks Disposition Disposition (needs filled in before D/C Order can be placed): Home, Self Care
--- NOTE | 2023-11-27 17:00 | DS.PCM_ITS ---
Providers Date of Admission: 11/25/23 Date of Discharge: 11/27/23 Primary Care Physician: Dr. Jeremi Morel MD Reason For Visit: ACUTE ON CHRONIC CHF IWTH HYPOXIA Diagnosis Discharge Diagnosis (1) Congestive heart failure: Status: Acute Code(s): I50.9 - Heart failure, unspecified Plan 1. Acute on chronic diastolic congestive heart failure-continue IV Lasix and recheck a BMP tomorrow #2 hypoxia secondary to #1-patient is currently on room air, I do not anticipate sending the patient home on oxygen #3 essential hypertension-patient will remain on his home medications #4 paroxysmal atrial fibrillation-patient is currently on apixaban and rate limiting medication, he will be monitored on telemetry #5 type 2 diabetes-fingerstick blood sugars will be monitored, sliding scale insulin will be administered as needed, patient was changed to NovoLog 75/25 insulin due to the fact we do not stock his home Humulin 50/50 insulin. #6 pulmonary hypertension-patient has moderate pulmonary hypertension on his last echocardiogram, again he will be placed on IV diuretics #7 coronary artery disease-patient will remain on his home medications, complicates care, medical course, recovery, and prognosis #8 acute urinary retention due to BPH-patient follows up with urologist as an outpatient, I will maintain his Webster catheter for now and add Proscar to his home medication list when he is discharged Total clinical time spent by myself addressing the patient's medical issues, reviewing all of his data, and collaborating with patient's care team: 35 minutes Medications at Discharge Home Medications vitamins A,C,N-xpgm-duyzld 4,296 mcg-226 mg-90 mg capsule 1 cap PO BID EYE HEALTH 03/07/19 cttgoxgy-qr-rqqxw 300 mcg-K 60 mcg-lycop 600 mcg-lutein 300 mcg tablet 1 tab PO DAILY supplement 10/25/19 Iron 65 mg PO BID 01/15/21 furosemide 40 mg tablet (Lasix) 40 mg PO DAILY #90 tabs 01/12/23 mirtazapine 7.5 mg tablet 7.5 mg PO DAILY 02/14/23 amlodipine 10 mg tablet 10 mg PO DAILY #90 tabs 04/26/23 apixaban 2.5 mg tablet 2.5 mg PO BID anticoagulant #60 tabs 04/26/23 atorvastatin 40 mg tablet 40 mg PO DAILY antihyperlipidemics #90 tabs 04/26/23 lisinopril 20 mg tablet 20 mg PO BID this is a dose increase #180 tabs 04/26/23 metoprolol tartrate 25 mg tablet 12.5 mg (1/2 x 25 mg) PO BID high blood pressure #90 tabs 04/26/23 clonazepam 0.5 mg tablet (Klonopin) 0.5 mg PO DAILY PRN anxiety 08/08/23 buspirone 15 mg tablet 15 mg PO BID 11/25/23 doxepin 50 mg capsule 50 mg PO QHS 11/25/23 insulin lispro protamine-lispro 100 unit/mL (50-50) subcutaneous pen (Humalog Mix 50-50 KwikPen) See Rx Instructions subcut .COMPLEX 11/25/23 melatonin 5 mg tablet 5 mg PO QHS 11/25/23 tamsulosin 0.4 mg capsule 0.8 mg PO DAILY@1730 diuretic 11/25/23 finasteride 5 mg tablet (Proscar) 5 mg PO DAILY #30 tabs 11/27/23 furosemide 40 mg tablet (Lasix) 40 mg PO BID #60 tabs 11/27/23 potassium chloride 10 mEq tablet,extended release 20 meq (2 x 10 mEq) PO DAILY #60 tabs 11/27/23 Hospital Course Operations None Procedures None Summary of Care Provided Minutes Spent on Discharge: 32 Hospital Course: 78-year-old white male was seen in the emergency room at [facility] with complaints of shortness of breath with malaise. Workup in the emergency room included a CBC which showed a normal white blood cell count, chemistry profile was remarkable for glucose of 277 and BUN 25. X-ray performed showed bilateral infiltrates CTA of the chest was performed which showed bilateral infiltrates suspicious for either pneumonia or edema and there were bi lateral pleural effusions and there was a left lower lobe consolidation noted. Patient's natruretic peptide was slightly elevated at 209, patient required oxygen at 2 L/min via nasal cannula to keep his pulse ox above 90%. Patient was admitted to PCU for acute on chronic diastolic congestive heart failure with hypoxia, he was not felt to have a community-acquired pneumonia he was given IV Lasix and pulse ox was monitored. Patient did well during his hospitalization and was weaned off of oxygen. Patient briefly had a Webster catheter for urinary hesitancy. On 11/27/2023, patient was seen and examined: On examination he appeared in good health and spirits. Vital signs as documented. Skin warm and dry and without overt rashes. Neck without JVD, neck was supple, trachea midline, thyroid was normal. Lungs clear bilaterally, normal air movement was noted. Heart exam notable for regular rhythm, normal sounds and absence of murmurs, rubs or gallops. Abdomen unremarkable and without evidence of organomegaly, masses, or abdominal aortic enlargement. Bowel sounds are present, abdomen is not distended. Extremities nonedematous, no cyanosis was noted, no clubbing was noted. Neuro: Cranial nerves II through XII are grossly intact, no focal motor deficits were noted, sensation to light touch and pinprick intact, motor exam 5/5 throughout. Psych: Patient is alert and oriented x3, he does not appear anxious or depressed, he does not appear agitated. Patient was felt to be stable for discharge home on 11/27/2023. Weight / BMI Weight Weight: 90 kg Body Mass Index (BMI) 30.2 ABG / Lab / Microbiology Data 11/26/23 04:47 11/27/23 05:42 Laboratory: Laboratory Results - last 24 hr 11/26/23 16:45: POC Glucose 128 H 11/26/23 22:11: POC Glucose 114 H 11/27/23 05:42: Sodium 142, Potassium 3.4 L, Chloride 106, Carbon Dioxide 29.0, Anion Gap 7, BUN 27 H, Creatinine 1.15, Estim Creat Clear Calc 50.24, Est GFR (MDRD) Af Amer 78, Est GFR (MDRD) Non-Af 64, BUN/Creatinine Ratio 23.5 H, Glucose 142 H, Calcium 8.8 11/27/23 08:52: POC Glucose 168 H 11/27/23 11:07: POC Glucose 159 H Microbiology: Microbiology 11/25/23 07:44 Blood Culture (Wb) - Anticubital Left Blood Culture - Preliminary No growth in 48 hours. 11/25/23 07:20 Blood Culture (Wb) - Anticubital Right Blood Culture - Preliminary No growth in 48 hours. 11/25/23 07:22 Mucosa - Nose SARS-CoV-2, Influenza & RSV (PCR) - Final Radiography Diagnostic Testing: Radiology Impression Chest X-Ray 11/26/23 05:55 IMPRESSION: Resolving CHF and pulmonary edema. Electronically Signed: Dejon Carrasquillo MD at 8:49 EST Reading Location ID and State: [address] [place] [address] Tel , Service support , D/C Instructions Discharge Diet: 1800 Calorie Control Diet Weight Bearing Status: Full weight bearing Meaningful Use Info Meaningful Use Diagnoses (Choose all that apply): CHF CHF WEI/ARB ordered at discharge?: Yes Documented LVEF (%): 55 Discharge Plan Admission Admit Date/Time: 11/25/23 11:11 Primary Reason for Your Visit: congestive heart failure Attending Provider: Jim Haque Primary Care Provider: Jeremi Morel Instructions Additional Instructions / Restrictions: Follow-up with your urologist within 1 month Discharge Orders/Prescriptions Prescriptions: New finasteride [Proscar] 5 mg tablet 5 mg PO DAILY Qty: 30 0RF Rx Instructions: take one daily for prostate furosemide [Lasix] 40 mg tablet 40 mg PO BID Qty: 60 0RF potassium chloride 10 mEq tablet extended release 20 meq PO DAILY Qty: 60 0RF Continued mirtazapine 7.5 mg tablet 7.5 mg PO DAILY clonazepam [Klonopin] 0.5 mg tablet 0.5 mg PO DAILY PRN (Reason: anxiety) vitamins A,C,O-aufl-yuskph 1 EACH capsule 1 cap PO BID Iron 65 mg PO BID dk-hrh-dabbn-T2-xrgnpzz-rtoahr 1 EACH tablet 1 tab PO DAILY doxepin 50 mg capsule 50 mg PO QHS Patient Comments: TAKE 1 CAPSULE BY MOUTH AT BEDTIME buspirone 15 mg tablet 15 mg PO BID Patient Comments: TAKE 1 TABLET BY MOUTH TWICE DAILY melatonin 5 mg tablet 5 mg PO QHS tamsulosin 0.4 MG capsule 0.8 mg PO DAILY@1730 Humalog Mix 50-50 KwikPen 100 unit/mL (50-50) insulin pen See Rx Instructions SC .COMPLEX Rx Instructions: 30 units subcutaneously AM; 28 units PM apixaban 2.5 mg tablet 2.5 mg PO BID Qty: 60 11RF amlodipine 10 mg tablet 10 mg PO DAILY Qty: 90 3RF metoprolol tartrate 25 mg tablet 12.5 mg PO BID Qty: 90 3RF lisinopril 20 mg tablet 20 mg PO BID Qty: 180 3RF atorvastatin 40 mg tablet 40 mg PO DAILY Qty: 90 3RF No Action furosemide [Lasix] 40 mg tablet 40 mg PO DAILY Qty: 90 3RF Referrals / Follow Up: Jeremi Morel MD [Primary Care Provider] - 12/04/23 2:20 pm Disposition Disposition (needs filled in before D/C Order can be placed): Home, Self Care Charges/Coding Visit Charges Inpatient E&M: 81074 Disch Hosp >30min
[2023-11-27] MEDS: Tamsulosin HCl 0.4 MG Capsule 0.800000000000000044 MG PO (17:14)
--- OUTSIDE RECORDS SUMMARY | 2023-11-30 08:16 | XMS RPT_ITS | CCD ---
Author Name Unknown Address [address] [place] [address] Organization [facility] Care Team Providers Care Pt Sitter Name Role Phone STEFANY ORTEZNETH E Unavailable [...] Jeremi Morel MD Primary Care Provider Caterina, Lander S Unavailable Jeremi Morel MD Primary Care Provider Caterina, Lander S Unavailable Jeremi Morel MD Primary Care Provider Caterina, Thompson S Unavailable Caterina, Lander S Unavailable Caterina BLANK Thompson S Unavailable [...] Da te Episodic/Chronic Other aftercare (1 source) halfway (current) use of insulin; Translations: [Type 2 [...] Body height 172.7 cm Maxi Cage APRN.ALO [facility] Work Phone: [facility] 09-25-2023 09:57-0500 Body temperature 97.39 [degF] Maxi Cage APRN.[employer]UM[employer], [facility] Work Phone: [facility] 09-25-2023 09:57-0500 Body weight 89.99 kg Maxi Cage APRN.INDUSTRIAL ROOF PLUMBER, [facility] Work Phone: [facility] 09-25-2023 09:57-0500 Diastolic blood pressure 62 mm[Hg] Maxi Cage APRN.INDUSTRIAL ROOF PLUMBER [facility] Work Phone: [facility] 09-25-2023 09:57-0500 Heart rate 84 /min Maxi Cage APRN.INDUSTRIAL ROOF PLUMBER [facility] Work Phone: [facility] 09-25-2023 09:57-0500 Respiratory rate 16 /min Maxi Cage APRN.INDUSTRIAL ROOF PLUMBER, [facility] Work Phone: [facility] 09-25-2023 09:57-0500 SaO2% (BldA) [Mass fraction] 98 % Maxi Cage APRN.INDUSTRIAL ROOF PLUMBER [facility] Work Phone: [facility] 09-25-2023 09:57-0500 Systolic blood pressure 138 mm[Hg] Maxi Cage APRN.[facility]O [facility] Work Phone: [facility] 08-28-2023 13:53-0400 Body weight 86.64 kg Jeremi Morel MD Work Phone: [facility] 08-28-2023 13:53-0400 Diastolic blood pressure 60 mm[Hg] Jeremi Morel MD Work Phone: [facility] 08-28-2023 13:53-0400 Heart rate 74 /min Jeremi Morel MD Work Phone: [facility] 08-28-2023 13:53-0400 Respiratory rate 16 /min Jeremi Morel MD Work Phone: [facility] 08-28-2023 13:53-0400 Systolic blood pressure 138 mm[Hg] Jeremi Morel MD Work Phone: [facility] 05-05-2023 08:48-0400 Body weight 91.17 kg Jeremi Morel MD Work Phone: [facility] 05-05-2023 08:48-0400 Diastolic blood pressure 68 mm[Hg] Jeremi Morel MD Work Phone: [facility] 05-05-2023 08:48-0400 Heart rate 76 /min Jeremi Morel MD Work Phone: [facility] 05-05-2023 08:48-0400 Respiratory rate 18 /min Jeremi Morel MD Work Phone: [facility] 05-05-2023 08:48-0400 Systolic blood pressure 166 mm[Hg] Jeremi Morel MD Work Phone: [facility] 01-31-2023 08:58-0400 Diastolic blood pressure 66 mm[Hg] Jeremi Morel MD Work Phone: [facility] 01-31-2023 08:58-0400 Heart rate 60 /min Jeremi Morel MD Work Phone: [facility] 01-31-2023 08:58-0400 Systolic blood pressure 153 mm[Hg] Jeremi Morel MD Work Phone: [facility] 01-31-2023 08:47-0400 Body weight 92.99 kg Jeremi Morel MD Work Phone: [facility] 01-31-2023 08:47-0400 Respiratory rate 16 /min Jeremi Morel MD Work Phone: [facility] 08-02-2022 08:37-0400 Diastolic blood pressure 59 mm[Hg] Mercedez Mensah APRN.[employer] Work Phone: [facility] 08-02-2022 08:37-0400 Heart rate 61 /min Mercedez Older COOKER SULFATE.[employer]OO[employer]UMBER Work Phone: [facility] 08-02-2022 08:37-0400 Systolic blood pressure 144 mm[Hg] Mercedez Older [employer]UL[employer].INDUSTRI[employer]OOF PLUMBER Work Phone: [facility] 08-02-2022 08:33-0400 Body height 175.3 cm Mercedez Older [employer]UL[employer].INDUST[employer]OO[employer]UMBER Work Phone: [facility] 08-02-2022 08:33-0400 Body temperature 98.01 [degF] Mercedez Older [employer]UL[employer]OO[employer]UM[employer] Work Phone: [facility] 08-02-2022 08:33-0400 Body weight 95.71 kg Mercedez Older [employer]OO[employer]UMBER Work Phone: [facility] 08-02-2022 08:33-0400 Respiratory rate 16 /min Mercedez Older [employer]OOK[employer]ULF[employer].INDUSTRIAL ROOF PLUMBER Work Phone: [facility] Encounters Encounter Date Encounter Type Care Provider Facility Start: 10-02-2023 Telephone encounter Maxi beauchamp COOKER [employer]ULFATE.INDUSTRIAL ROOF PLUMBER, DNP Work Phone: Urology Procedures Date Procedure Procedure Detail Performing Clinician Start: 02-20-2023 Hemoglobin A1c/Hemoglobin.total in Blood [facility] Provider Start: 09-12-2022 Hemoglobin A1c/Hemoglobin.total in Blood [facility] Provider Start: 08-02-2022 INFLUENZA SEASONAL QUADRIVALENT HIGH DOSE AGE 65+ Mercedez Older COOKER SULFATE.INDUSTRIAL ROOF PLUMBER Work Phone: Start: 01-01-2019 History of coronary artery bypass grafting S/P CABG x 2 Jeremi Morel MD Work Phone: History of coronary artery bypass grafting S/P CABG x 2 Jeremi Morel MD Work Phone: Plan of Treatment Date Care Activity Detail Author Start: 10-25-2029 Urine microalbumin profile [facility] Start: 02-01-2024 3 comp foot exam completed DIABETIC FOOT EXAM [facility] Start: 10-17-2023 Hepatitis B screening URINE AL BUMIN:CREATININE RATIO [facility] Start: 10-17-2023 Hepatitis B surface antibody level LDL CHOLESTEROL [facility] Start: 08-22-2023 Hemoglobin A1c/Hemoglobin.total in Blood HBA1C [facility] Start: 08-17-2023 Hepatitis C antibody , confirmatory test DILATED RETINAL EXAM [facility] Start: 08-02-2023 COVID-19 VACCINE (4 - Booster for Moderna series) COVID-19 VACCINE (4 - Booster for Moderna series) [facility] Immunizations Immunization Date Immunization Notes Care Provider Fa cility 08-02-2022 influenza, high-dose , quadrivalent vaccine (FLUZONE HIGH DOSE QUADRIVALENT) Mercedez Older [employer]OOK[employer]ULF[employer].INDUSTRIAL ROOF PLUMBER Work Phone: [facility] Work Phone: 08-02-2022 influenza virus vacc ine, unspecified formulation Jeremi Morel MD Work Phone: [facility] 12-01-2021 COVID-19 vaccine, ag e 12+ yr ([employer] - [facility]) Jeremi Morel MD Work Phone: [facility] Work Phone: 07-22-2021 influenza, high-dose , quadrivalent vaccine (FLUZONE HIGH DOSE QUADRIVALENT) Jeremi Morel MD Work Phone: [facility] Work Phone: 03-10-2021 COVID-19 vaccine, fu ll dose (MODERNA) Jeremi Morel MD Work Phone: [facility] Work Phone: 09-17-2020 influenza, high-dose , quadrivalent vaccine (FLUZONE HIGH DOSE QUADRIVALENT) Jeremi Morel MD Work Phone: [facility] Work Phone: 10-30-2019 influenza, seasonal, injectable, preservative free Jeremi Morel MD Work Phone: [facility] Work Phone: 10-25-2019 tetanus toxoid, redu vasiliy diphtheria toxoid, and acellular pertussis vaccine, adsorbed Jeremi Morel MD Work Phone: [facility] Work Phone: 09-10-2018 influenza, high dose seasonal, preservative-free Jeremi Morel MD Work Phone: [facility] 09-06-2017 influenza, high dose seasonal, preservative-free Jeremi Morel MD Work Phone: [facility] 08-18-2016 influenza, high dose seasonal, preservative-free Jeremi Morel MD Work Phone: [facility] 07-30-2015 influenza, high dose seasonal, preservative-free Jeremi Morel MD Work Phone: [facility] 07-30-2015 pneumococcal conjuga te vaccine, 13 valent Jeremi Morel MD Work Phone: [facility] 08-28-2014 influenza, seasonal, injectable Jeremi Morel MD Work Phone: [facility] 08-28-2013 influenza virus vacc ine, unspecified formulation Jeremi Morel MD Work Phone: [facility] 08-28-2013 pneumococcal polysaccharide vaccine, 23 valent Jeremi Morel MD Work Phone: [facility] 08-23-2012 influenza virus vacc ine, unspecified formulation Jeremi Morel MD Work Phone: [facility] 09-15-2011 influenza virus vacc ine, unspecified formulation Jeremi Morel MD Work Phone: [facility] 09-10-2010 influenza virus vacc ine, unspecified formulation Jeremi Morel MD Work Phone: [facility] Work Phone: 08-27-2008 influenza virus vacc ine, unspecified formulation Jeremi Morel MD Work Phone: [facility] 09-05-2006 influenza virus vacc ine, unspecified formulation Jeremi Morel MD Work Phone: [facility] 10-28-2005 influenza virus vacc ine, unspecified formulation Jeremi Morel MD Work Phone: [facility] Work Phone: 12-21-2004 diphtheria and tetan us toxoids, adsorbed for pediatric use Jeremi Morel MD Work Phone: [facility] Work Phone: Payers Date Payer Category Payer Self-pay 2017 Unknown [employer]IM[employer] H[employer] POS [id number] 2017-Present [phone] [address] [place] [address] HMO [id number] 2017 Unknown [employer]IM[employer]IME [employer] HMO POS [id number] 2017-Present [phone] [address] [place] [address] HMO [id number] 2017 Medicare [id number] 2017 Unknown [id number] 1935 Unknown [id number] 1935 Unknown [id number] 1937 Unknown [id number] 1935 Unknown [id number] 1935 Unknown [id number] Social History Date Type Detail Facility Start: [facility]02[facility] End: 12-07-2001 History of tobacco use Current smoker [facility] End: 12-07-2001 History of tobacco use Cigar Smoker [facility] Start: 01-20-2022 End: 08-28-2023 Alcohol intake Current non-drinker of alcohol (finding) [facility] Start: 1935 Sex Assigned At Not on file C [facility] Start: 08-02-2022 Tobacco use and exposure Smokeless tobacco non-user [facility] Work Phone: Start: 07-23-2022 End: 08-02-2022 Exposure to SARS-CoV-2 (event) Not sure [facility] Work Phone: Start: 01-31-2023 End: 05-05-2023 History of Social function [facility] Work Phone: Start: 01-31-2023 End: 05-05-2023 Tobacco use panel [facility] Work Phone: Adult Depression Screening Assessment 6 [facility] Work Phone: Start: 09-25-2023 Alcohol intake Ex-drinker (finding) [facility] Medical Equipment Procedure Code Equipment [...] PRAJAPATI Received outside medical records- scanned to [employer] via [facility]. Notified Maxi Cage APRN, CNP, DNP. Mary Schmitt LPN documented in this encounter [facility] 09-25-2023 Note HNO ID: [id number] Author: Maxi Cage APRN.INDUSTRIAL ROOF PLUMBER, DNP Service: ? Author Type: Nurse Practitioner Type: Progress Notes Filed: 09/25/2023 10:44 AM Note Text: [facility] MALE PATIENT - HISTORY AND PHYSICAL EXAMINATION PATIENT: Osvaldo Lucio (88 year old) 09/25/2023 PCP: Jeremi Morel MD New patient to Urology CHIEF COMPLAINT: BPH/LUTS HISTORY OF PRESENT ILLNESS: 88 year old year old male with BPH/LUTS. Main complaint is urinary frequency. 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 Recently treated [...] Acute on chronic diastolic (congestive) heart failure ([facility]) 05/27/2019 Aortic stenosis 08/23/2012 Aortic valve replaced 01/01/2019 Bipolar disorder, unspecified ([facility]) BPH with urinary obstruction Chronic kidney disease (CKD), stage III (moderate) ([facility]) 03/12/2010 DM type 2 causing CKD stage 3 ([facility]) 07/30/2015 Dysuria Essential hypertension Frequency of urination Hyperlipidemia cholesterol 197 08/27/2012 [facility] Impaired glucose metabolism HGBA1C 6.1 08/27/2012 [facility]. He has since 2006 had A1C values [...] N (more content not included)... [facility] 09-25-2023 Note HNO ID: [id number] Author: Mary Schmitt LPN Service: ? Author [...] well. Plan: Appointment with Landon. [facility] 09-25-2023 Instructions Maxi Cage APRN.SAMMY PRAJAPATI [...] Cage APRN.SAMMY PRAJAPATI documented in this encounter [facility] 09-25-2023 History of Presen t illness Narrative [facility] MALE PATIENT - HISTORY AND PHYSICAL EXAMINATION PATIENT: Osvaldo Lucio (88 year old) 09/25/2023 PCP: Jeremi Morel MD New patient to Urology CHIEF COMPLAINT: BPH/LUTS HISTORY OF PRESENT ILLNESS: 88 year old year old male with BPH/LUTS. Main complaint is urinary frequency. 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 He has since 2006 had A1C values [...] (Patient not taking: Reported on 09/25/2023) vit A,C,S-Qvln-Wmeqss ([facility]) 7,160-113-100 lics-ul-fisj tab Take 1 tablet by mouth twice [...] Consultation requested by Dr. Jeremi Morel [address] [place] [address] for an opinion regarding urinary freq and UTI and my final recommendations will be communicated back to the requesting physician by way of shared Medical record or letter via US mail. I spent a total of 42 minutes on the date of the service which included preparing to see the patient, etfm-sz-jepj patient care, completing clinical documentation, performing a medically appropriate examination, counseling and educating the patient/family/caregiver and ordering medications, tests, or procedures. Maxi Cage DNP, ALO Department of Urology [facility] Verified name and date of [...] Appointment with Landon. documented in this encounter [facility] 08-28-2023 Note HNO ID: [id number] Author: Jeremi Morel MD Service: ? Author Type: Physician Type: Progress Notes Filed: 08/28/2023 3:38 PM Note Text: This note was created using [employer]. Subjective Patient presents with: UTI Osvaldo Lucio [...] 1 capsule by mouth once daily. vit A,C,S-Duep-Plxful ([facility]) 7,160-113-100 zuld-ua-gqqa tab Take 1 tablet by mouth twice [...] follow recommendations. Jeremi Morel MD [facility] 08-28-2023 History of Presen t illness Narrative This note was created using [employer]. 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 vit A,C,S-Zcgg-Sxndbg ([facility]) 7,160-113-100 gpgn-ei-otne tab Take 1 tablet by mouth twice [...] Jeremi Morel MD documented in this encounter [facility] 07-26-2023 Miscellaneous Notes Patient has [...] Addis Sanchez Pss documented in this encounter [facility] 05-05-2023 Note HNO ID: [id number] Author: Jeremi Morel MD Service: ? Author Type: Physician Type: Progress Notes Filed: 05/05/2023 9:43 AM Note Text: This note was created using [employer]. Subjective Osvaldo Lucio is a 87 year [...] [facility], and [facility]. We refill [...] 1 tablet by mouth once daily. vit A,C,S-Gsjr-Wqecra ([facility]) 7,160-113-100 uexj-ig-afbz tab Take 1 tablet by mouth twice [...] 428.3 (more content not included)... [facility] 05-05-2023 History of Presen t illness Narrative This note was created using [employer]. Subjective Osvaldo Lucio is a 87 year [...] his medications are from [facility], [facility], and [facility]. We refill only Tamsulosin. Review of Systems Constitutional: Negative for activity change, appetite change and unexpected weight change. Respiratory: Negative for shortness of breath. Cardiovascular: Negative for chest pain, palpitations and leg swelling. Gastrointestinal: Negative for abdominal pain. Genitourinary: Negative for difficulty urinating. Skin: Positive for rash. 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 vit A,C,U-Qfbu-Qjnrmv ([facility]) 7,160-113-100 fhoi-wv-mrqw tab Take 1 tablet by mouth twice [...] Jeremi Morel MD documented in this encounter [facility] 04-17-2023 Miscellaneous Notes KAT: 01/31/2023 [...] Anika Narvaez Pss documented in this encounter [facility] 01-31-2023 Note HNO ID: [id number] Author: Jeremi Morel MD Service: ? Author Type: Physician Type: Progress Notes Filed: 01/31/2023 9:37 AM Note Text: This note was created using [employer]. 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 vit A,C,T-Klaa-Gawqmh ([facility]) 7,160-113-100 nxij-td-iiio tab Take 1 tablet by mouth twice [...] 06/06/2017 (more content not included)... [facility] 01-31-2023 Instructions Jeremi Morel MD - 01/31/2023 9:18 AM EDT TRY SERTRALINE. CALL FOR REFILL IF EFFECTIVE AND UNABLE TO SEE [facility] PROVIDER. SCHEDULE SOONER APPOINTMENT WITH [facility]. documented in this encounter [facility] 01-31-2023 History of Presen t illness Narrative This note was created using [employer]. Subjective Osvaldo Lucio is a 87 year [...] 1 tablet by mouth once daily. vit A,C,R-Pcwq-Iwkune ([facility]) 7,160-113-100 rbit-px-zepk tab Take 1 tablet by mouth twice [...] in the short term and in the care home. Risks: Possible side effects were discussed including [...] 585.3, V58.67, ICD10: E11.22, N18.31, Z79.4 Per [facility]. 3. Paroxysmal atrial fibrillation (HCC) - ICD9: 427.31, ICD10: I48.0 Controlled and managed by [facility]. 4. Essential hypertension - ICD9: 401.9, ICD10: I10 Elevated today. I will defer to [facility]. Jeremi Morel MD documented in this encounter [facility] documented in this encounter [facility]03-10-2023 NoteHNO ID: [id number] Author: Ariadne Garcia APRN.INDUSTRIAL [employer]OOF PLUMBER Service: ? 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 He has since 2006 had A1C values [...] DISLOCATION W/REPAIR/INT/XTRNL FIXJ 1991 ORIF Ankle right [facility] REPLACEMENT, AORTIC VALVE, WITH CAR 01/03/2019 ALLERGIES [...] 1 tablet by mouth once daily. vit A,C,U-Gpcx-Mpdrmq ([facility]) 7,160-113-100 smgq-mu-peqk tab Take 1 tablet by mouth twice [...] distress. Appear (more content not included)...[facility]12-12-2022 Miscellaneous Notes* Telephone Encounter - Addis [...] his furosemide. 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 I sent 30 days and 2 refills. [...] appt with pcp 01/31/23 [facility] Miscellaneous Notes* Telephone Encounter - [...] Thank you. Daniela Hicks [facility] History of Present illness Narrative* [...] BP average at home in the 120's/60's. Well Service Pump Equipment Operator is Dr. Diggs. Afib controlled, anticoagulated with [...] DM type 2 causing CKD stage 3 ([facility]) 07/30/2015 Essential hypertension Hyperlipidemia cholesterol 197 08/27/2012 [facility] Impaired glucose metabolism HGBA1C 6.1 08/27/2012 [facility]. 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 vit A,C,O-Udop-Nytxwx ([facility]) 7,160-113-100 sdlo-lh-rswe tab Take 1 tablet by mouth twice [...] DM type 2 causing CKD stage 3 ([facility]) 07/30/2015 Essential hypertension Hyperlipidemia cholesterol 197 08/27/2012 [facility] Impaired glucose metabolism HGBA1C 6.1 08/27/2012 [facility]. 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 List of current specialists seen: Cycle Repairer- Dr. Chandra Lo Well Service Pump Equipment Operator- Dr. Diggs Hat Mender- Dr. Culp End of Live Planning discussed [...] at this time. - Patient was counseled lhye-xs-zjhu by myself (the billing provider) for the following immunizations and vaccine components, including side effects: Influenza. Patient consents for immunization and understands risks and benefits. A VIS sheet on each immunization was given to the patient. He declined COVID booster today - Follow up for medicare annual exam in one year Mercedez Mensah APRN.CNP documented in [facility] Miscellaneous Notes* Telephone Encounter - [...] patient. Jacqueline Rizzo Pss documented [facility] History of Past illness Narrative* Problem Noted Date Resolved Date Skin nodule 12/05/2017 05/27/2019 Personal history of smoking 05/01/2014 10/0 04/2016 Overview: Quit using tobacco 2003 Chronic kidney disease (CKD), stage III (moderat e) 03/12/2010 03/26/2020 Overview: Dr. Kerri Ornelas, [facility] Impaired glucose metabolism 02/2016 Overview: HGBA1C 6.1 08/27/2012 [facility]. He has since 2006 had A1C values in the 5.7-6.1 range and is on medications and does follow any dietary regime. Two times in 2008, the value was 6.5 and 6.8%. I discussed this with him and will change to impaired glucose. Nonspecific abnormal results of liver function s dy 12/05/2017 documented as of this encounter (statuses as of 04/22/2022) [facility] History of Past illness Narrative* Problem Noted Date Resolved Date Skin nodule 12/05/2017 05/27/2019 Personal history of smoking 05/01/201404/2016 Overview: Quit using tobacco 2003 Chronic kidney disease (CKD), stage III (moderat e) 03/12/2010 03/26/2020 Overview: Dr. Kerri Ornelas, [facility] Impaired glucose metabolism 02/2016 Overview: HGBA1C 6.1 08/27/2012 [facility]. He has since 2006 had A1C values in the 5.7-6.1 range and is on medications and does follow any dietary regime. Two times in 2008, the value was 6.5 and 6.8%. I discussed this with him and will change to impaired glucose. Nonspecific abnormal results of liver function s dy 12/05/2017 documented as of this encounter (statuses as of 08/02/2022) [facility] of Past illness Narrative* Problem Noted Date Resolved Date Skin nodule 12/05/2017 05/27/2019 Personal history of smoking 05/01/201404/2016 Overview: Quit using tobacco 2003 Chronic kidney disease (CKD), stage III (moderat e) 03/12/2010 03/26/2020 Overview: Dr. Kerri Ornelas, [facility] Impaired glucose metabolism 02/2016 Overview: HGBA1C 6.1 08/27/2012 [facility]. He has since 2006 had A1C values in the 5.7-6.1 range and is on medications and does follow any dietary regime. Two times in 2008, the value was 6.5 and 6.8%. I discussed this with him and will change to impaired glucose. Nonspecific abnormal results of liver function s dy 12/05/2017 documented as of this encounter (statuses as of 10/14/2022) [facility] of Past illness Narrative* Problem Noted Date Resolved Date Skin nodule 12/05/2017 05/27/2019 Personal history of smoking 05/01/201404/2016 Overview: Quit using tobacco 2003 Chronic kidney disease (CKD), stage III (moderat e) 03/12/2010 03/26/2020 Overview: Dr. Kerri Ornelas, [facility] Impaired glucose metabolism 02/2016 Overview: HGBA1C 6.1 08/27/2012 [facility]. He has since 2006 had A1C values in the 5.7-6.1 range and is on medications and does follow any dietary regime. Two times in 2008, the value was 6.5 and 6.8%. I discussed this with him and will change to impaired glucose. Nonspecific abnormal results of liver function s cleo 12/05/2017 documented as of this encounter (statuses as of 10/24/2022) [facility] of Past illness Narrative* Problem Noted Date Resolved Date Skin nodule 12/05/2017 05/27/2019 Personal history of smoking 05/01/201404/2016 Overview: Quit using tobacco 2003 Chronic kidney disease (CKD), stage III (moderat e) 03/12/2010 03/26/2020 Overview: [facility] Impaired glucose metabolism 02/2016 Overview: HGBA1C 6.1 08/27/2012 [facility]. He has since 2006 had A1C values in the 5.7-6.1 range and is on medications and does follow any dietary regime. Two times in 2008, the value was 6.5 and 6.8%. I discussed this with him and will change to impaired glucose. Nonspecific abnormal results of liver function s daksha 12/05/2017 documented as of this encounter (statuses as of 01/31/2023) [facility] of [facility] illness Narrative* Problem Noted Date Resolved Date Skin nodule 12/05/2017 05/27/2019 Personal history of smoking 05/01/201404/2016 Overview: Quit using tobacco 2003 Chronic kidney disease (CKD), stage III (moderat e) 03/12/2010 03/26/2020 Overview: [facility] Impaired glucose metabolism 02/2016 Overview: HGBA1C 6.1 08/27/2012 [facility]. He has since 2006 had A1C values in the 5.7-6.1 range and is on medications and does follow any dietary regime. Two times in 2008, the value was 6.5 and 6.8%. I discussed this with him and will change to impaired glucose. Nonspecific abnormal results of liver function s cleo 12/05/2017 documented as of this encounter (statuses as of 04/17/2023) [facility] of Past illness Narrative* Problem Noted Date Resolved Date Skin nodule 12/05/2017 05/27/2019 Personal history of smoking 05/01/201404/2016 Overview: Quit using tobacco 2003 Aortic stenosis 08/23/2012 05/05/2023 Chronic kidney disease (CKD), stage III (moderat e) 03/12/2010 03/26/2020 Overview: [facility] Impaired glucose metabolism 02/2016 Overview: HGBA1C 6.1 08/27/2012 [facility]. He has since 2006 had A1C values in the 5.7-6.1 range and is on medications and does follow any dietary regime. Two times in 2008, the value was 6.5 and 6.8%. I discussed this with him and will change to impaired glucose. Nonspecific abnormal results of liver function s tudy 12/05/2017 documented as of this encounter (statuses as of 05/05/2023) [facility] of [facility] illness Narrative* Problem Noted Date Diagnosed Date Resolved Date Skin nodule 12/05/2017 05/27/2019 Personal history of smoking 05/01/2014 08/18/2016 Overview: Quit using tobacco 2003 Aortic stenosis 08/23/2012 05/05/2023 Chronic kidney disease (CKD) , stage III (moderate) 03/12/2010 03/26/2020 Overview: Dr. Kerri Ornelas, [facility] Impaired glucose metabolism 08/16/2016 Overview: HGBA1C 6.1 08/27/2012 [facility]. He has since 2006 had A1C values in the 5.7-6.1 range and is on medications and does follow any dietary regime. Two times in 2008, the value was 6.5 and 6.8%. I discussed this with him and will change to impaired glucose. Nonspecific abnormal results of liver function study 12/05/2017 documented as of this encounter (statuses as of 07/26/2023) [facility] of Past illness Narrative* Problem Noted Date Diagnosed Date Resolved Date Skin nodule 12/05/2017 05/27/2019 Personal history of smoking 05/01/2014 08/18/2016 Overview: Quit using tobacco 2004 Aortic stenosis 08/23/2012 05/05/2023 Chronic kidney disease (CKD) , stage III (moderate) 03/12/2010 03/26/2020 Overview: [facility] Impaired glucose metabolism 08/16/2016 Overview: HGBA1C 6.1 08/27/2012 [facility]. He has since 2006 had A1C values in the 5.7-6.1 range and is on medications and does follow any dietary regime. Two times in 2008, the value was 6.5 and 6.8%. I discussed this with him and will change to impaired glucose. Nonspecific abnormal results of liver function study 12/05/2017 documented as of this encounter (statuses as of 08/29/2023) [facility] of Past illness Narrative* Problem Noted Date Diagnosed Date Resolved Date Skin nodule 12/05/2017 05/27/2019 Personal history of smoking 05/01/2014 08/18/2016 Overview: Quit using tobacco 2003 Aortic stenosis 08/23/2012 05/05/2023 Chronic kidney disease (CKD) , stage III (moderate) 03/12/2010 03/26/2020 Overview: Dr. Kerri Ornelas, [facility] Impaired glucose metabolism 08/16/2016 Overview: HGBA1C 6.1 08/27/2012 [facility]. He has since 2006 had A1C values in the 5.7-6.1 range and is on medications and does follow any dietary regime. Two times in 2008, the value was 6.5 and 6.8%. I discussed this with him and will change to impaired glucose. Nonspecific abnormal results of liver function study 12/05/2017 documented as of this encounter (statuses as of 09/25/2023) [facility] of Past illness Narrative* Problem Noted Date Diagnosed Date Resolved Date Skin nodule 12/05/2017 05/27/2019 Personal history of smoking 05/01/2014 08/18/2016 Overview: Quit using tobacco 2003 Aortic stenosis 08/23/2012 05/05/2023 Chronic kidney disease (CKD) , stage III (moderate) 03/12/2010 03/26/2020 Overview: [facility] Impaired glucose metabolism 08/16/2016 Overview: HGBA1C 6.1 08/27/2012 [facility]. He has since 2006 had A1C values in the 5.7-6.1 range and is on medications and does follow any dietary regime. Two times in 2008, the value was 6.5 and 6.8%. I discussed this with him and will change to impaired glucose. Nonspecific abnormal results of liver function study 12/05/2017 documented as of this encounter (statuses as of 09/26/2023) [facility] History of Past illness Narrative* Problem Noted Date Diagnosed Date Resolved Date Skin nodule 12/05/2017 05/27/2019 Personal history of smoking 05/01/2014 08/18/2016 Overview: Quit using tobacco 2004 Aortic stenosis 08/23/2012 05/05/2023 Chronic kidney disease (CKD) , stage III (moderate) 03/12/2010 03/26/2020 Overview: Dr. Kerri Ornelas, [facility] Impaired glucose metabolism 08/16/2016 Overview: HGBA1C 6.1 08/27/2012 [facility]. He has since 2006 had A1C values in the 5.7-6.1 range and is on medications and does follow any dietary regime. Two times in 2008, the value was 6.5 and 6.8%. I discussed this with him and will change to impaired glucose. Nonspecific abnormal results of liver function study 12/05/2017 documented as of this encounter (statuses as of 10/03/2023) [facility] Diagnosis BPH with urinary obstruction Hypertrophy of prostate with urinary obstruction and other lower urinary tract symptoms (LUTS) Type 2 diabetes mellitus with stage 3 chronic kidney disease, without long-term current use of insulin (HCC) documented in this encounter [facility]* Diagnosis Medicare annual wellness [...] inoculation against influenza documented in this encounter [facility] note* Diagnosis Acute on chronic diastolic (congestive) heart failure (HCC)- Primary documented in this encounter [facility] note* Diagnosis BPH with urinary obstruction Hypertrophy of prostate with urinary obstruction and other lower urinary tract symptoms (LUTS) documented in this encounter [facility] note* Diagnosis Essential hypertension- Primary Unspecified essential [...] status unspecified (HCC) documented in this encounter [facility] note* Diagnosis Type 2 diabetes mellitus with stage 3 chronic kidney disease, without long-term current use of insulin ([facility]) documented in this encounter [facility] note* Diagnosis Dysuria- Primary BPH with urinary obstruction Hypertrophy of prostate with urinary obstruction and other lower urinary tract symptoms (LUTS) Frequency of urination Urinary frequency documented in this encounter [facility] note* Diagnosis Benign prostatic hyperplasia with urinary frequency- Primary Frequency of urination Urinary frequency Screening for genitourinary condition Screening for other and unspecified genitourinary condition documented in this encounter [facility] Summary Purpose Family History No [...] of urination Procedures CONSULT TO UROLOGY OFFICE[facility]OUTPATIENT [facility] 60-74 MINUTES Jeremi Morel MD [address] [place] [address] Referral ID Status Reason Start Date Expiration Date Visits Requested Visits Authorized [id number] Pending Review PCP Requested Referral 3 08/27/2024 1 1 Additional Source Comments (unrecognized sect ion and content) No Status Records FoundNo Status Records FoundNo Status Records FoundNo Status Records Found INFORMATION SOURCE (unrecogn ized section and content) DATE CREATED AUTHOR AUTHOR'S ORGANIZ ATION 05/07/2018 [facility] DATE CREATED AUTHOR AUTHOR'S ORGANIZ ATION 01/24/2019 [facility] ([place]) DATE CREATED AUTHOR AUTHOR'S ORGANIZ ATION 10/05/2023 [facility] Source Comments (unrecognize d section and content) In the event this informatio n is protected by the Federal Confidentiality of Alcohol and Drug Abuse Patient Records regulations: The Federal rules restrict any use of the information to criminally investigate or prosecute any alcohol or drug abuse patient.[facility] CenterIn the event this information is protected by the Federal Confidentiality of Alcohol and Drug Abuse Patient Records regulations: The Federal rules restrict any use of the information to criminally investigate or prosecute any alcohol or drug abuse patient.[facility] CenterIn the event this information is protected by the Federal Confidentiality of Alcohol and Drug Abuse Patient Records regulations: The Federal rules restrict any use of the information to criminally investigate or prosecute any alcohol or drug abuse patient.[facility] CenterIn the event this information is protected by the Federal Confidentiality of Alcohol and Drug Abuse Patient Records regulations: The Federal rules restrict any use of the information to criminally investigate or prosecute any alcohol or drug abuse patient.[facility] the event this information is protected by the Federal Confidentiality of Alcohol and Drug Abuse Patient Records regulations: The Federal rules restrict any use of the information to criminally investigate or prosecute any alcohol or drug abuse patient.[facility] CenterIn the event this information is protected by the Federal Confidentiality of Alcohol and Drug Abuse Patient Records regulations: The Federal rules restrict any use of the information to criminally investigate or prosecute any alcohol or drug abuse patient.[facility] CenterIn the event this information is [...] or prosecute any alcohol or drug abuse patient.[facility] CenterIn the event this information is protected by the Federal Confidentiality of Alcohol and Drug Abuse Patient Records regulations: The Federal rules restrict any use of the information to criminally investigate or prosecute any alcohol or drug abuse patient.[facility] CenterIn the event this information is protected by the Federal Confidentiality of Alcohol and Drug Abuse Patient Records regulations: The Federal rules restrict any use of the information to criminally investigate or prosecute any alcohol or drug abuse patient.[facility] CenterIn the event this information is protected by the Federal Confidentiality of Alcohol and Drug Abuse Patient Records regulations: The Federal rules restrict any use of the information to criminally investigate or prosecute any alcohol or drug abuse patient.[facility] CenterIn the event this information is protected by the Federal Confidentiality of Alcohol and Drug Abuse Patient Records regulations: The Federal rules restrict any use of the information to criminally investigate or prosecute any alcohol or drug abuse patient.[facility] Reason for Visit (unrecogniz ed [...] HIGH MDM 60-74 MINUTES Jeremi Morel MD [address] [place] [address] Referral ID Status Reason Start Date Expiration Date Visits Requested Visits Authorized [id number] Pending Review PCP Requested Referral 3 08/27/2024 1 1 Reason Comments Outside medical records Reason Comments Opened In Error Care Teams (unrecognized sec tion and content) Pt Sitter Relationship Specialty Start Date End Date Jeremi Morel MD [address] [place] [address] PCP - General Internal Medicine 08/19/16 Thompson Diggs [address] [address] Physician Cardiology 02/01/19 Pt Sitter Relationship Specialty Start Date End Date Jeremi Morel MD [address] [place] [address] PCP - General Internal Medicine 08/19/16 Caterina, Lander S [address] [place] [address] Physician Cardiology 02/01/19 Pt Sitter Relationship Specialty Start Date End Date Jeremi Morel MD [address] [facility] [address] PCP - General Internal Medicine 08/19/16 Caterina, Thompson S [address] [place] [address] Physician Cardiology 02/01/19 Pt Sitter Relationship Specialty Start Date End Date Jeremi Morel MD [address] [place] [address] PCP - General Internal Medicine 08/19/16 Caterina, Thompson S [address] [place] [address] Physician Cardiology 02/01/19 Pt Sitter Relationship Specialty Start Date End Date Jeremi Morel MD [address] [place] [place] [address] PCP - General Internal Medicine 08/19/16 Caterina, Thompson S [address] [place] [address] Physician Cardiology 02/01/19 Pt Sitter Relationship Specialty Start Date End Date Jeremi Morel MD [address] [place] [address] PCP - General Internal Medicine 08/19/16 Caterina, Lander S [address] [place] [address] Physician Cardiology 02/01/19 Pt Sitter Relationship Specialty Start Date End Date Jeremi Morel MD [address] [place] [address] PCP - General Internal Medicine 08/19/16 Thompson Diggs MD [address] [address] Physician Cardiology 02/01/19 Pt Sitter Relationship Specialty Start Date End Date Jeremi Morel MD [address] [place] [address] PCP - General Internal Medicine 08/19/16 Thompson Diggs MD [address] [address] Physician Cardiology 02/01/19 Pt Sitter Relationship Specialty Start Date End Date Jeremi Morel MD [address] [place] [address] PCP - General Internal Medicine 08/19/16 Thompson Diggs MD [address] [address] Physician Cardiology 02/01/19 Pt Sitter Relationship Specialty Start Date End Date Jeremi Morel MD [address] [place] [address] PCP - General Internal Medicine 08/19/16 Thompson Diggs MD [address] [address] Physician Cardiology 02/01/19 FOR RECORDS PERTAINING TO [...] BE BASED ON THE PRIMARY CLINICAL RECORDS. [facility]. provides no warranty or guarantee of the accuracy or completeness of information in this document.
== END 2023-11-27 17:55 | disposition home or self-care (01) | DRG 291 ==
LOC: ED 10:49 → PCU 11:42
PROVIDERS: Admitting Provider Internal Medicine; Emergency Provider Emergency Medicine; PCP Internal Medicine; Visit Provider Internal Medicine
DX: I11.0 Hypertensive heart disease with heart failure (principal); I50.33 Acute on chronic diastolic (congestive) heart failure; I27.21 Secondary pulmonary arterial hypertension; E11.22 Type 2 diabetes mellitus with diabetic chronic kidney disease; I48.0 Paroxysmal atrial fibrillation; N18.2 Chronic kidney disease, stage 2 (mild); E78.5 Hyperlipidemia, unspecified; I25.10 Atherosclerotic heart disease of native coronary artery without angina pectoris; Z95.2 Presence of prosthetic heart valve; N40.1 Benign prostatic hyperplasia with lower urinary tract symptoms; R33.8 Other retention of urine; R39.11 Hesitancy of micturition; R09.02 Hypoxemia; Z11.52 Encounter for screening for COVID-19; Z79.01 Long term (current) use of anticoagulants; Z87.891 Personal history of nicotine dependence; Z95.1 Presence of aortocoronary bypass graft
CPT/HCPCS: 36415; 71045; 71275; 80048; 81001; 82962; 83605; 83690; 83880; 84484; 85025; 85610; 85730; 87040; 87631; 93005; 97802; 99285; Q9967; 90662; A4216; J1940

== ENCOUNTER → 2024-04-12 | Outpatient (CLI) | payer MEDICARE, SELFPAY ==
--- NOTE | 2024-04-12 09:41 | ECHOD_ITS ---
Reason For Study: AVR Procedure This was a 2D Doppler, Color Flow transthoracic echocardiogram. Exam performed in department. Left Ventricle Normal LV size. Moderate concentric left ventricular hypertrophy. Left ventricular systolic function is normal. The left ventricular ejection fraction is 65 %. No regional wall motion abnormalities noted. Right Ventricle Normal RV size. Normal systolic function. Tricuspid Valve Normal tricuspid valve. Mild to moderate (1-2+) tricuspid valve insufficiency. Pulmonary artery systolic pressure is 45 mmHg. Aortic Valve Peak aortic valve gradient 15 mmHg. Mean aortic valve gradient 7 mmHg. Bioprosthetic aortic valve. Pulmonic Valve Normal pulmonic valve. Great Vessels Normal aortic root. The pulmonary artery is normal size. Normal inferior vena cava. Pericardium/Pleural No pericardial effusion. MMode/2D Measurements & Calculations LVIDd: 4.1 cm IVSd: 1.3 cm LVOT diam: 2.1 cm LVIDs: 3.0 cm LVPWd: 1.6 cm LVOT area: 3.3 cm2 RVDd: 4.6 cm FS: 26.3 % LAV(MOD-sp4): 55.0 ml SV(MOD-sp4): 83.1 ml LVAd ap4: 33.3 cm2 LVLd ap4: 7.8 cm EDV(MOD-sp4): 113.8 ml EDV(sp4-el): 119.8 ml LVAs ap4: 16.4 cm2 LVLs ap4: 7.6 cm ESV(MOD-sp4): 30.7 ml ESV(sp4-el): 30.0 ml EF(MOD-sp4): 73.1 % EF(sp4-el): 75.0 % SV(sp4-el): 89.8 ml LA dimension(2D): 4.6 cm LA A4 area: 19.2 cm2 TAPSE: 1.1 cm RA A4 area: 24.4 cm2 Time Measurements MV dec time: 0.23 sec Doppler Measurements & Calculations MV E max loco: 103.1 cm/sec MV V2 max: 119.3 cm/sec MV A max loco: 48.4 cm/sec MV max P.7 mmHg MV dec slope: 445.3 cm/sec2 MV E/A: 2.1 MV V2 mean: 54.1 cm/sec MV mean P.5 mmHg MV V2 VTI: 37.5 cm MVA(VTI): 2.8 cm2 Ao V2 max: 194.9 cm/sec LV V1 max: 126.5 cm/sec SV(LVOT): 105.5 ml Ao max P.2 mmHg LV V1 max P.6 mmHg Ao V2 mean: 124.1 cm/sec LV V1 mean P.6 mmHg Ao mean P.5 mmHg LV V1 mean: 86.1 cm/sec Ao V2 VTI: 49.4 cm LV V1 VTI: 31.9 cm AV (velocity ratio): 0.65 RAZA(I,D): 2.1 cm2 RAZA(V,D): 2.1 cm2 TR max loco: 318.5 cm/sec TR max P.6 mmHg ECHO/Echo Complete Interpretation Summary Normal LV size. Moderate concentric left ventricular hypertrophy. Left ventricular systolic function is normal. The left ventricular ejection fraction is 65 %. Pulmonary artery systolic pressure is 45 mmHg. Bioprosthetic aortic valve. Mean aortic valve gradient 7 mmHg. Ordering Physician: Tami Emery Referring Physician: Tami Emery Performed By: Danica Powell RCS
== END | disposition home or self-care (01) ==
LOC: CVS 09:40
PROVIDERS: PCP Internal Medicine; Referring Provider Physician Assistant Medical; Visit Provider Physician Assistant Medical
DX: I25.10 Atherosclerotic heart disease of native coronary artery without angina pectoris (principal); I35.0 Nonrheumatic aortic (valve) stenosis
CPT/HCPCS: 93306

== ENCOUNTER 2024-10-11 12:23 | Inpatient (IN) | payer MEDICARE, SELFPAY ==
[2024-10-11] VITALS (20 sets, daily range): BP systolic 113–150; BP diastolic 63–82; PULSE 64–90; RESP 13–26; TEMP 36.9–37.2; O2SAT 88–97; BMI 31.0; BMI 25.7
[2024-10-11 13:02] LABS: Absolute Lymphocyte Count 1.14 X10^3/uL (0.83-4.51); Absolute Neutrophil Count 7.8 X10^3/uL (2.0-7.7); Basophil# 0.04 X10^3/uL; Basophil% 0.4 % (0-1); Eosinophil# 0.16 X10^3/uL; Eosinophils% 1.6 % (0-5); Hematocrit 40.2 % (40-54); Hemoglobin 13.3 g/dL (13.0-16.5); Lymphocyte # 1.14 X10^3/ul (0.83-4.51); Lymphocyte % 11.6 % (19-41); Mean Corp Hgb Conc 33.1 g/dL (32-36); Mean Corpuscular Hgb 29.5 pg (27.0-32.0); Mean Corpuscular Volume 89.1 fL (80-94); Monocyte# 0.62 X10^3/uL; Monocyte% 6.3 % (0-10); NRBC Flagged by Analyzer 0 % (0-5); Neutrophil # 7.78 X10^3/uL (2.7-7.7); Neutrophil % 79.6 % (47-70); Platelet Count 155 K/mm3 (150-450); RBC Distribution Width CV 13.6 % (11.6-14.6); RBC Distribution Width SD 44.4 fl (35.1-43.9); Red Blood Count 4.51 M/mm3 (4.6-6.2); White Blood Count 9.8 K/mm3 (4.4-11.0)
[2024-10-11 13:16] LABS: BNP,B-Type NATRIURETIC PEPTIDE 250.6 pg/mL (0-100)
[2024-10-11 13:19] LABS: Anion Gap 8 (5-15); BUN 20 mg/dL (7-18); BUN/Creat Ratio 16.3 RATIO (10-20); Calcium,Total 9.2 mg/dL (8.5-10.1); Chloride 102 mmol/L (98-107); Creatinine, Serum 1.23 mg/dL (0.70-1.30); EST Glomerular Filtration Rate 59 mL/min (>60); Est Glom Filt Rate - Afr Amer 72 mL/min (>60); Estimated Creatinine Clearance 46.75 ml/min; Glucose 149 mg/dL (74-106); Potassium 3.6 mmol/L (3.5-5.1); Sodium Level 137 mmol/L (136-145); Troponin-I HS 34 pg/mL (3.0-78.0)
[2024-10-11] MEDS: Furosemide 100 MG/10 ML Vial 80 MG IV (16:21)
[2024-10-11] MEDS: Azithromycin 250 MG Tablet 500 MG PO (16:21)
[2024-10-11] MEDS: Ipratropium/Albuterol Sulfate 3 ML AMPUL.NEB INHALATION ×3 (16:39→23:30)
[2024-10-11 18:09] LABS: Bedside Glucose 149 mg/dL (74-106)
[2024-10-11] MEDS: Tamsulosin HCl 0.4 MG Capsule 0.8 MG PO (18:44)
[2024-10-11] MEDS: DOXEPIN HCL 50 MG CAPSULE PO (22:09)
[2024-10-11] MEDS: APIXABAN 2.5 MG TABLET (WCH) PO (22:10)
[2024-10-11] MEDS: Metoprolol Tartrate 25 MG Tablet 12.5 MG PO (22:10)
[2024-10-11] MEDS: busPIRone 15 MG TABLET PO (22:10)
[2024-10-11] MEDS: Atorvastatin Calcium 40 MG Tablet PO (22:10)
[2024-10-11] MEDS: Mirtazapine 15 MG Tablet 7.5 MG PO (22:11)
[2024-10-11] MEDS: Lisinopril 20 MG Tablet PO (22:11)
[2024-10-11 22:33] LABS: Bedside Glucose 134 mg/dL (74-106)
[2024-10-12] VITALS (13 sets, daily range): BP systolic 119–142; BP diastolic 51–61; PULSE 64–86; RESP 16–20; TEMP 36.4–36.9; O2SAT 93–97
[2024-10-12] MEDS: Ipratropium/Albuterol Sulfate 3 ML AMPUL.NEB INHALATION ×6 (03:40→23:52)
[2024-10-12 05:05] LABS: Absolute Neutrophil Count 8.1 X10^3/uL (2.0-7.7); Basophil# 0.06 X10^3/uL; Basophil% 0.6 % (0-1); Eosinophil# 0.14 X10^3/uL; Eosinophils% 1.3 % (0-5); Hematocrit 37.9 % (40-54); Hemoglobin 12.4 g/dL (13.0-16.5); Lymphocyte % 13.2 % (19-41); Mean Corp Hgb Conc 32.7 g/dL (32-36); Mean Corpuscular Hgb 29.5 pg (27.0-32.0); Mean Platelet Vol. 10.9 fl (6.2-12.0); Monocyte# 0.91 X10^3/uL; Monocyte% 8.6 % (0-10); NRBC Flagged by Analyzer 0 % (0-5); Neutrophil # 8.08 X10^3/uL (2.7-7.7); Neutrophil % 75.9 % (47-70); Platelet Count 158 K/mm3 (150-450); RBC Distribution Width CV 13.8 % (11.6-14.6); RBC Distribution Width SD 44.8 fl (35.1-43.9); Red Blood Count 4.21 M/mm3 (4.6-6.2); White Blood Count 10.6 K/mm3 (4.4-11.0)
[2024-10-12 05:16] LABS: International Normalized Ratio 1.4
[2024-10-12 05:42] LABS: ALB/GLOB Ratio 1.1 RATIO (0.9-2.4); AST(SGOT) 54 U/L (15-37); Alanine Aminotransfer ALT/SGPT 26 U/L (16-61); Albumin, Serum 3.7 g/dL (3.2-5.0); Alkaline Phosphatase 89 U/L (45-117); Anion Gap 7 (5-15); BUN 17 mg/dL (7-18); BUN/Creat Ratio 14.7 RATIO (10-20); Bilirubin, Direct 0.41 mg/dL (0.00-0.30); Calcium,Total 9.3 mg/dL (8.5-10.1); Chloride 104 mmol/L (98-107); Creatinine, Serum 1.16 mg/dL (0.70-1.30); EST Glomerular Filtration Rate 63 mL/min (>60); Est Glom Filt Rate - Afr Amer 77 mL/min (>60); Estimated Creatinine Clearance 43.41 ml/min; Globulin 3.5 g/dL (2.2-4.2); Glucose 153 mg/dL (74-106); Magnesium 2.4 mg/dL (1.6-2.6); Phosphorus 3.6 mg/dL (2.5-4.9); Potassium 3.5 mmol/L (3.5-5.1); Protein, Total 7.2 g/dL (6.4-8.2); Sodium Level 140 mmol/L (136-145)
[2024-10-12 07:07] LABS: Bedside Glucose 164 mg/dL (74-106)
[2024-10-12] MEDS: Insulin Lispro 100 UNIT/ML INSULN.PEN SC ×2 (08:59→12:22)
[2024-10-12] MEDS: Insulin Human 75/25 Kwickpen 25 UNIT SC (09:01)
[2024-10-12] MEDS: Potassium Chloride Oral Tablet 20 MEQ PO (09:04)
[2024-10-12] MEDS: busPIRone 15 MG TABLET PO ×2 (09:04→22:21)
[2024-10-12] MEDS: APIXABAN 2.5 MG TABLET (WCH) PO ×2 (09:05→22:22)
[2024-10-12] MEDS: Metoprolol Tartrate 25 MG Tablet 12.5 MG PO ×2 (09:05→22:22)
[2024-10-12] MEDS: Furosemide 40 MG/4 ML Vial IV (09:05)
[2024-10-12] MEDS: amLODIPine 10 MG Tablet PO (09:07)
[2024-10-12] MEDS: Finasteride 5 MG Tablet PO (09:07)
[2024-10-12] MEDS: Lisinopril 20 MG Tablet PO ×2 (09:07→22:23)
[2024-10-12] MEDS: Azithromycin 250 MG Tablet 500 MG PO (09:08)
[2024-10-12] MEDS: FLU VACCINE **HIGH DOSE** TV 24-25 180 MCG/0.5 ML SYRINGE IM (09:15)
[2024-10-12 10:09] LABS: Bedside Glucose 177 mg/dL (74-106)
[2024-10-12 13:00] LABS: Bedside Glucose 176 mg/dL (74-106)
[2024-10-12] MEDS: Insulin Human 75/25 Kwickpen 22 UNIT SC (17:09)
[2024-10-12 17:14] LABS: Bedside Glucose 131 mg/dL (74-106)
[2024-10-12] MEDS: Tamsulosin HCl 0.4 MG Capsule 0.8 MG PO (18:18)
[2024-10-12] MEDS: DOXEPIN HCL 50 MG CAPSULE PO (22:22)
[2024-10-12] MEDS: Atorvastatin Calcium 40 MG Tablet PO (22:22)
[2024-10-12] MEDS: Mirtazapine 15 MG Tablet 7.5 MG PO (22:23)
[2024-10-12 22:49] LABS: Bedside Glucose 92 mg/dL (74-106)
[2024-10-13] VITALS (7 sets, daily range): BP systolic 120–130; BP diastolic 63–70; PULSE 65–82; RESP 16; TEMP 36.3–36.6; O2SAT 94–96; BMI 29.4
[2024-10-13] MEDS: Ipratropium/Albuterol Sulfate 3 ML AMPUL.NEB INHALATION ×2 (06:37→10:55)
[2024-10-13 07:01] LABS: Absolute Lymphocyte Count 1.23 X10^3/uL (0.83-4.51); Absolute Neutrophil Count 5.3 X10^3/uL (2.0-7.7); Basophil# 0.03 X10^3/uL; Basophil% 0.4 % (0-1); Eosinophil# 0.32 X10^3/uL; Eosinophils% 4.2 % (0-5); Hemoglobin 11.7 g/dL (13.0-16.5); Lymphocyte # 1.23 X10^3/ul (0.83-4.51); Lymphocyte % 16.1 % (19-41); Mean Corp Hgb Conc 33.4 g/dL (32-36); Mean Corpuscular Hgb 30.3 pg (27.0-32.0); Mean Corpuscular Volume 90.7 fL (80-94); Mean Platelet Vol. 10.9 fl (6.2-12.0); Monocyte# 0.71 X10^3/uL; Monocyte% 9.3 % (0-10); NRBC Flagged by Analyzer 0 % (0-5); Neutrophil # 5.32 X10^3/uL (2.7-7.7); Neutrophil % 69.6 % (47-70); Platelet Count 133 K/mm3 (150-450); RBC Distribution Width CV 13.8 % (11.6-14.6); RBC Distribution Width SD 45.5 fl (35.1-43.9); Red Blood Count 3.86 M/mm3 (4.6-6.2); White Blood Count 7.6 K/mm3 (4.4-11.0)
[2024-10-13 08:08] LABS: Anion Gap 8 (5-15); BUN 20 mg/dL (7-18); BUN/Creat Ratio 19.6 RATIO (10-20); Chloride 104 mmol/L (98-107); Creatinine, Serum 1.02 mg/dL (0.70-1.30); EST Glomerular Filtration Rate 73 mL/min (>60); Est Glom Filt Rate - Afr Amer 89 mL/min (>60); Estimated Creatinine Clearance 55.02 ml/min; Glucose 106 mg/dL (74-106); Potassium 3.3 mmol/L (3.5-5.1); Sodium Level 139 mmol/L (136-145)
[2024-10-13] MEDS: Insulin Human 75/25 Kwickpen 25 UNIT SC (09:24)
[2024-10-13] MEDS: Insulin Lispro 100 UNIT/ML INSULN.PEN SC (09:25)
[2024-10-13] MEDS: Potassium Chloride Oral Tablet 20 MEQ PO (09:26)
[2024-10-13] MEDS: Finasteride 5 MG Tablet PO (09:27)
[2024-10-13] MEDS: busPIRone 15 MG TABLET PO (09:27)
[2024-10-13] MEDS: APIXABAN 2.5 MG TABLET (WCH) PO (09:27)
[2024-10-13] MEDS: Azithromycin 250 MG Tablet 500 MG PO (09:28)
[2024-10-13] MEDS: amLODIPine 10 MG Tablet PO (10:18)
[2024-10-13] MEDS: Furosemide 40 MG/4 ML Vial IV (10:18)
[2024-10-13] MEDS: Potassium Chloride Oral Tablet 20 MEQ 40 MEQ PO (10:18)
[2024-10-13] MEDS: Lisinopril 20 MG Tablet PO (10:19)
[2024-10-13] MEDS: Metoprolol Tartrate 25 MG Tablet 12.5 MG PO (10:19)
[2024-10-13] MEDS: 0.9% Saline Lock 10 ML Syringe IV (10:21)
[2024-10-13 10:33] LABS: Bedside Glucose 166 mg/dL (74-106)
[2024-10-13 15:23] LABS: Bedside Glucose 83 mg/dL (74-106)
== END 2024-10-13 14:34 | disposition home or self-care (01) | DRG 291 ==
LOC: ED 16:49 → PCU 16:57
PROVIDERS: Admitting Provider Internal Medicine; Emergency Provider Emergency Medicine; PCP Internal Medicine; Referring Provider Internal Medicine; Visit Provider Student in an Organized Health Care Education/Training Program
DX: I13.0 Hypertensive heart and chronic kidney disease with heart failure and stage 1 through stage 4 chronic kidney disease, or unspecified chronic kidney disease (principal); J12.9 Viral pneumonia, unspecified; J96.01 Acute respiratory failure with hypoxia; I50.33 Acute on chronic diastolic (congestive) heart failure; I27.20 Pulmonary hypertension, unspecified; Z79.01 Long term (current) use of anticoagulants; E11.22 Type 2 diabetes mellitus with diabetic chronic kidney disease; Z95.2 Presence of prosthetic heart valve; I48.0 Paroxysmal atrial fibrillation; E78.5 Hyperlipidemia, unspecified; N18.2 Chronic kidney disease, stage 2 (mild); I25.10 Atherosclerotic heart disease of native coronary artery without angina pectoris; Z79.4 Long term (current) use of insulin; R09.02 Hypoxemia; N40.0 Benign prostatic hyperplasia without lower urinary tract symptoms; Z23 Encounter for immunization; Z11.52 Encounter for screening for COVID-19; Z87.891 Personal history of nicotine dependence
CPT/HCPCS: 36415; 71045; 71275; 80048; 80053; 80076; 82962; 83036; 83735; 83880; 84100; 84443; 84484; 85025; 85610; 87633; 90662; 93005; 93306; 94640; 94668; 97802; 99252; 99285; Q9957; Q9967; A4216; G0463; J1940

== ENCOUNTER 2024-10-18 09:30 | Emergency (ER) | payer MEDICARE, SELFPAY ==
[2024-10-18] VITALS (18 sets, daily range): BP systolic 98–168; BP diastolic 63–110; PULSE 33–74; RESP 13–26; TEMP 36.3–36.8; O2SAT 88–98; BMI 31.8
[2024-10-18 10:10] LABS: Absolute Lymphocyte Count 1.34 X10^3/uL (0.83-4.51); Absolute Neutrophil Count 8.3 X10^3/uL (2.0-7.7); Basophil# 0.07 X10^3/uL; Basophil% 0.6 % (0-1); Eosinophil# 0.21 X10^3/uL; Eosinophils% 1.9 % (0-5); Hemoglobin 13.2 g/dL (13.0-16.5); Lymphocyte # 1.34 X10^3/ul (0.83-4.51); Lymphocyte % 12.3 % (19-41); Mean Corpuscular Hgb 29.5 pg (27.0-32.0); Mean Corpuscular Volume 89.5 fL (80-94); Mean Platelet Vol. 10.7 fl (6.2-12.0); Monocyte# 0.92 X10^3/uL; Monocyte% 8.4 % (0-10); NRBC Flagged by Analyzer 0 % (0-5); Neutrophil # 8.32 X10^3/uL (2.7-7.7); Neutrophil % 76.3 % (47-70); Platelet Count 177 K/mm3 (150-450); RBC Distribution Width CV 13.5 % (11.6-14.6); RBC Distribution Width SD 44.4 fl (35.1-43.9); Red Blood Count 4.47 M/mm3 (4.6-6.2); White Blood Count 10.9 K/mm3 (4.4-11.0)
--- NOTE | 2024-10-18 10:27 | ED.RN ---
THIS NURSE PERFORMED AMBULATION WITH PULSE OX. PT WAS 96% BEFORE AMBULATION. WHILE WALKING HE STAYED AT 95% AND ONE BACK IN THE BED PT WAS SOB/LABORED @ 90%
--- NOTE | 2024-10-18 10:30 | EKG12_ITS ---
Test Reason : Blood Pressure : */* mmHG Vent. Rate : 75 BPM Atrial Rate : 258 BPM P-R Int : * ms QRS Dur : 132 ms QT Int : 462 ms P-R-T Axes : 18 -52 53 degrees QTcB Int : 515 ms Atrial flutter with variable A-V block with premature ventricular or aberrantly conducted complexes Left axis deviation Non-specific intra-ventricular conduction block Cannot rule out Inferior infarct , age undetermined Cannot rule out Anterolateral infarct (cited on or before 11-Oct-2024) Abnormal ECG Confirmed by Nate Monet ([id number]), editorial cartoonist DERREK MUÑOZ ([id number]) on 10/21/2024 6:55:03 AM Referred By: Confirmed By: Nate Monet
[2024-10-18 10:31] LABS: Anion Gap 8 (5-15); BUN 19 mg/dL (7-18); BUN/Creat Ratio 15.3 RATIO (10-20); Chloride 95 mmol/L (98-107); Creatinine, Serum 1.24 mg/dL (0.70-1.30); EST Glomerular Filtration Rate 59 mL/min (>60); Est Glom Filt Rate - Afr Amer 71 mL/min (>60); Estimated Creatinine Clearance 46.97 ml/min; Glucose 127 mg/dL (74-106); Potassium 4.2 mmol/L (3.5-5.1); Sodium Level 131 mmol/L (136-145); Troponin-I HS 34 pg/mL (3.0-78.0)
--- NOTE | 2024-10-18 10:40 | ED.VIS.DYS ---
HPI History of Present Illness Chief Complaint: Shortness of Breath Narrative Narrative: Chief complaint and HPI: Exertional dyspnea. 89-year-old male with history of CHF, proximal atrial fibrillation on Eliquis, DM, CKD presents for evaluation of exertional dyspnea and reported hypoxia during ambulation. History taken by patient as well as medical record. I reviewed the discharge summary from 10/13/2024. Patient was recently admitted to the hospital for shortness of breath. At that time he was found to be in a CHF exacerbation as well as possible pneumonia. He was treated with IV Lasix and azithromycin. He had an echocardiogram which showed EF 55%, stage III diastolic dysfunction, and high left atrial pressures. Patient was ultimately discharged home with a 30-day event monitor due to concerns for PVCs and mild bradycardia. Patient states he has yet to get his Holter monitor. He states that he finished his 3-day course of azithromycin that he was discharged home with. Patient states he has continued to have exertional dyspnea. He states he has a home pulse ox which goes down to 85% when he ambulates. He had a PCP appointment today but they told him to go to the emergency room. He denies any fever, chills, URI symptoms, chest pain abdominal pain, nausea, vomiting, dysuria. Denies any bilateral lower extremity swelling or pain. Denies any recent weight gain. Review of systems: See HPI Medications: As listed on the chart Allergies: As listed on the chart PFSH: Per chart Vital signs: As listed on the chart. Reviewed. Physical exam: Gen: A&O x3, NAD Head: Normocephalic, atraumatic Eyes: No sclera icterus, conjunctiva clear ENT: Moist mucous membranes Neck: Trachea midline, No JVD CV: Regular rhythm, irregular rhythm, no murmurs, no peripheral edema Resp: Lungs CTA BL but diminished in the bilateral bases, no w/r/c GI: Abd soft, non-distended, non-tender, no r/r/g Musc: Full ROM, no deformity Skin: Warm, dry Neuro: Alert, oriented, grossly intact, sensation intact Psych: Cooperative, appropriate mood and affect [facility] Congestive heart failure Carotid artery bruit Hypoglycemia associated with type 2 diabetes mellitus Frequent falls Elevated LFTs Physical debility BPH (benign prostatic hyperplasia) Vitamin D deficiency Chronic renal failure, stage 2 (mild) Thrombocytopenia Significant closed head trauma within past 3 months Abnormal LFTs Chronic diastolic (congestive) heart failure Dehydration Acute on chronic renal failure Hyperkalemia Hyponatremia Abrasions of multiple sites Fall Bradycardia Near syncope Obesity Secondary pulmonary arterial hypertension Paroxysmal atrial fibrillation Postoperative atrial fibrillation (01/01/19) Essential (primary) hypertension Anxiety and depression Thyroid nodule Stenosis of right subclavian artery Pleural effusion on left Iron deficiency anemia Type 2 diabetes mellitus Left bundle branch block Non-rheumatic aortic stenosis Atherosclerosis of coronary artery of [place] heart without angina pectoris Hyperlipidemia Home Medications ?Medication ?Instructions ?Recorded ?Last Taken ?Type vitamins A,C,O-meop-xjkzul 4,296 1 cap PO BID EYE HEALTH 03/07/19 10/25/19 History mcg-226 mg-90 mg capsule stmxeglp-ew-dnbau 300 mcg-K 60 1 tab PO DAILY supplement 10/25/19 10/25/19 History mcg-lycop 600 mcg-lutein 300 mcg tablet Iron 65 mg PO BID 01/15/21 Unknown History mirtazapine 7.5 mg tablet 7.5 mg PO QHS 02/14/23 Unknown History clonazepam 0.5 mg tablet (Klonopin) 0.5 mg PO DAILY PRN anxiety 08/08/23 Unknown History buspirone 15 mg tablet 15 mg PO BID 11/25/23 Unknown History doxepin 50 mg capsule 50 mg PO QHS 11/25/23 Unknown History tamsulosin 0.4 mg capsule 0.8 mg PO DAILY@1730 diuretic 11/25/23 Unknown History finasteride 5 mg tablet (Proscar) 5 mg PO DAILY #30 tabs 11/27/23 Unknown Rx potassium chloride 10 mEq 20 meq (2 x 10 mEq) PO DAILY #60 11/27/23 Unknown Rx tablet,extended release tabs amlodipine 10 mg tablet 10 mg PO DAILY #90 tabs 02/20/24 Unknown Rx apixaban 2.5 mg tablet 2.5 mg PO BID anticoagulant #60 02/20/24 Unknown Rx tabs furosemide 40 mg tablet (Lasix) 40 mg PO BID #180 tabs 02/20/24 Unknown Rx lisinopril 20 mg tablet 20 mg PO BID this is a dose 02/20/24 Unknown Rx increase #180 tabs metoprolol tartrate 25 mg tablet 12.5 mg (1/2 x 25 mg) PO BID high 02/20/24 Unknown Rx blood pressure #90 tabs insulin lispro protamine-lispro See Rx Instructions subcut 06/17/24 Unknown Rx 100 unit/mL (50-50) subcutaneous .COMPLEX #17.4 mL pen (Humalog Mix 50-50 KwikPen) atorvastatin 40 mg tablet 40 mg PO QHS antihyperlipidemics 10/11/24 Unknown History azithromycin 500 mg tablet See Rx Instructions PO .COMPLEX #3 10/13/24 Unknown Rx tabs Allergy/AdvReac Type Severity Reaction Status Date / Time No Known Allergies Allergy Verified 10/11/24 12:24 Family History Father CVA (cerebral vascular accident) Mother COPD (chronic obstructive pulmonary disease) Surgical History History of open reduction and internal fixation (ORIF) procedure History of cataract surgery History of hip replacement History of thoracentesis (01/05/19) History of left heart catheterization (10/31/18) H/O aortic valve replacement (01/01/19) H/O coronary artery bypass surgery (01/01/19) Social History Smoking Status: Former smoker quit date: 11/13/03 how long ago did patient quit smoking: cigars EXAM Physical Exam Const Vital Signs: 10/18/24 09:31 10/18/24 09:34 10/18/24 09:39 Temperature 97.4 F L 98.2 F Temperature Source Temporal Oral Pulse Rate 33 L 70 Respiratory Rate 18 19 H Respiratory Effort Short of Breath Respiratory Depth Shallow Respiratory Pattern Normal Blood Pressure 112/64 98/77 Blood Pressure Mean 80 84 Pulse Ox 88 97 Oxygen Delivery Method Room Air Room Air Room Air 10/18/24 09:58 10/18/24 09:58 10/18/24 10:30 Temperature Temperature Source Pulse Rate 66 Respiratory Rate 26 H 22 H Respiratory Effort Respiratory Depth Respiratory Pattern Blood Pressure 134/68 H Blood Pressure Mean 90 Pulse Ox 97 97 97 Oxygen Delivery Method Room Air Room Air Room Air 10/18/24 12:00 10/18/24 14:00 10/18/24 15:00 Temperature 98 F 97.8 F 98.1 F Temperature Source Oral Oral Oral Pulse Rate 68 68 70 Respiratory Rate 16 18 18 Respiratory Effort Respiratory Depth Respiratory Pattern Blood Pressure 148/68 H 148/72 H 147/110 H Blood Pressure Mean 94 97 122 Pulse Ox 95 94 93 Oxygen Delivery Method Room Air 10/18/24 16:00 10/18/24 17:00 10/18/24 18:00 Temperature Temperature Source Pulse Rate 72 73 Respiratory Rate 18 16 Respiratory Effort Respiratory Depth Respiratory Pattern Blood Pressure 115/66 145/72 H 148/73 H Blood Pressure Mean 82 96 98 Pulse Ox 98 97 Oxygen Delivery Method Room Air Room Air 10/18/24 18:40 10/18/24 19:00 10/18/24 20:00 Temperature Temperature Source Pulse Rate 74 57 L 65 Respiratory Rate 16 16 18 Respiratory Effort Respiratory Depth Respiratory Pattern Blood Pressure 148/73 H 166/70 H 138/74 H Blood Pressure Mean 98 102 95 Pulse Ox 90 98 98 Oxygen Delivery Method Room Air Nasal Cannula Nasal Cannula 10/18/24 21:00 10/18/24 22:00 10/18/24 23:00 Temperature Temperature Source Pulse Rate 58 L 74 59 L Respiratory Rate 13 20 H 18 Respiratory Effort Respiratory Depth Respiratory Pattern Blood Pressure 157/63 H 168/87 H 122/66 H Blood Pressure Mean 94 114 84 Pulse Ox 98 96 98 Oxygen Delivery Method Room Air Room Air MDM MDM MDM Narrative Medical decision making narrative: 89-year-old male with history of CHF, proximal atrial fibrillation on Eliquis, DM, CKD presents for evaluation of exertional dyspnea and reported hypoxia during ambulation. Patient recently admitted and discharged from our hospital for CHF exacerbation and possible pneumonia. On presentation, patient is on room air without hypoxia. He was ambulated in our emergency department without hypoxia as well. Differential diagnosis includes but is not limited to CHF exacerbation, pneumonia, ACS, viral illness, PE. Respiratory/cardiac workup ordered. On chart review, patient did have a CTA chest performed on 10/11/2024 at that time he had bilateral loculated pleural effusions. No PE. Patient is not having any wheezing and is not coarse on physical exam therefore I do not think DuoNebs are needed at this time. EKG reviewed see below. CBC without leukocytosis or anemia. BMP shows mild hyponatremia at 131. No [place]. D-dimer elevated at 0.84. Patient did just have a CTA chest performed that was negative for PE. However given patient's reported shortness of breath and hypoxia will obtain CTA chest to rule out PE with recent hospitalization and decreased mobility. Chest x-ray was canceled due to the fact that CTA chest was ordered. BNP mildly elevated at 197.7. This is downtrending from 250 on 10/11. Troponin 34 this is the same as on 10/11/2024. Patient not having chest pain. CTA chest negative for PE. Patient again has bilateral pleural effusions with loculations. Worse in the left hemithorax. Bibasilar scarring with bibasilar dependent atelectasis. Patient again was ambulated and endorses exertional dyspnea despite no hypoxia. I suspect that patient's symptoms are likely secondary to his bilateral pleural effusions with loculations. Patient has not had any further workup of these effusions. I do think he would benefit from admission for further workup as well as thoracentesis. Patient and family were updated of the results and confirmed understanding. I spoke with the hospitalist, Dr. Warner. Given that we have no inpatient pulmonology over the weekend or IR for thoracentesis she recommends transfer to another facility with these capabilities. Patient confirmed understanding. Patient states he has been admitted to [facility] in the past. I did speak to the hospitalist Dr. Dowd at [facility] who accepted transfer. Patient will be transferred once bed has been arranged. EKG: Interpreted by me/EM physician: EKG shows atrial flutter with variable AV block with premature ventricular complexes. Heart rate 75. Nonspecific ST changes Impression: 1. Bilateral pleural effusions with loculations 2. Exertional dyspnea suspect secondary to #1 3. Mild hyponatremia Lab Data Labs: Laboratory Results - last 24 hr 10/18/24 09:45 WBC 10.9 RBC 4.47 L Hgb 13.2 Hct 40.0 MCV 89.5 MCH 29.5 MCHC 33.0 RDW Std Deviation 44.4 H RDW Coeff of Torie 13.5 Plt Count 177 MPV 10.7 Immature Gran % (Auto) 0.500 Neut % (Auto) 76.3 H Lymph % (Auto) 12.3 L Edgar % (Auto) 8.4 Eos % (Auto) 1.9 Baso % (Auto) 0.6 Absolute Neuts (auto) 8.3 H Absolute Lymphs (auto) 1.34 Nucleated RBC % 0 D-Dimer Quant (PE/DVT) 0.84 H* Sodium 131 L Potassium 4.2 Chloride 95 L Carbon Dioxide 28.0 Anion Gap 8 BUN 19 H Creatinine 1.24 Estim Creat Clear Calc 46.97 Est GFR (MDRD) Af Amer 71 Est GFR (MDRD) Non-Af 59 L BUN/Creatinine Ratio 15.3 Glucose 127 H Calcium 10.0 Troponin I High Sens 34 B-Natriuretic Peptide 197.7 H Radiography Diagnostic Testing: Clinical Impression(s) from Imaging Studies Chest CTA 10/18/24 11:36 IMPRESSION: No evidence of pulmonary embolism. Bilateral pleural effusions with the loculations as described worse in the left hemithorax. Bibasilar scarring with bibasilar dependent atelectasis. Prior CABG and aortic valve replacement. Electronically Signed: Elpidio Cuevas MD at 12:54 EST , Discharge Plan Triage Chief Complaint: Shortness of Breath ED Provider: Darion Boyd Dx/Rx/DC Orders Prescriptions: No Action mirtazapine 7.5 mg tablet 7.5 mg PO QHS lisinopril 20 mg tablet 20 mg PO BID Qty: 180 3RF furosemide [Lasix] 40 mg tablet 40 mg PO BID Qty: 180 3RF metoprolol tartrate 25 mg tablet 12.5 mg PO BID Qty: 90 3RF apixaban 2.5 mg tablet 2.5 mg PO BID Qty: 60 11RF amlodipine 10 mg tablet 10 mg PO DAILY Qty: 90 3RF clonazepam [Klonopin] 0.5 mg tablet 0.5 mg PO DAILY PRN (Reason: anxiety) vitamins A,C,X-heva-uqdvui 1 EACH capsule 1 cap PO BID Iron 65 mg PO BID [id number]-jpilraf-[id number] 1 EACH tablet 1 tab PO DAILY doxepin 50 mg capsule 50 mg PO QHS Patient Comments: TAKE 1 CAPSULE BY MOUTH AT BEDTIME buspirone 15 mg tablet 15 mg PO BID Patient Comments: TAKE 1 TABLET BY MOUTH TWICE DAILY tamsulosin 0.4 MG capsule 0.8 mg PO DAILY@1730 finasteride [Proscar] 5 mg tablet 5 mg PO DAILY Qty: 30 0RF Rx Instructions: take one daily for prostate potassium chloride 10 mEq tablet extended release 20 meq PO DAILY Qty: 60 0RF atorvastatin 40 mg tablet 40 mg PO QHS azithromycin 500 mg tablet See Rx Instructions .ROUTE .COMPLEX Qty: 3 0RF Rx Instructions: For 500 mg dose pack: take 500 mg once daily for 3 days Humalog Mix 50-50 KwikPen 100 unit/mL (50-50) insulin pen See Rx Instructions SC .COMPLEX Qty: 17.4 5RF Rx Instructions: 30 units subcutaneously AM; 28 units PM Primary Care Provider: Jeremi Morel Referrals: Jeremi Morel MD [Primary Care Provider] - Print Language: [place]
[2024-10-18 11:09] LABS: D-Dimer Quantitative (DVT/PE) 0.84 FEU/ug/m (0.27-0.49)
[2024-10-18 11:20] LABS: BNP,B-Type NATRIURETIC PEPTIDE 197.7 pg/mL (0-100)
--- NOTE | 2024-10-18 11:36 | CT_ITS ---
STUDY: CTA CHEST REASON FOR EXAM: Male, 89 years old. Shortness of breath, elevated dimer. Hypoxia and congestive heart failure. RADIATION DOSAGE (If Supplied By Facility): CTDIvol = ( 16.96 ) mGy, DLP = ( 443.18 ) mGycm TECHNIQUE: The examination was performed with the intravenous administration of IV 100mL Isovue-370. Post-processing of the angiographic images was performed, with multiplanar reformation and 3D reconstruction. Individualized dose optimization techniques were used for this CT. COMPARISON: Comparison is made with prior CT of the chest in October 11, 2020 FINDINGS: Normal enhancement of the main pulmonary artery and right and left pulmonary arteries. Normal enhancement of the bilateral peripheral pulmonary arteries. There is no demonstrated pulmonary embolism. There is atherosclerotic calcification of the aortic arch and origin of the major cervical vessels with tortuosity. There is no demonstrated aortic dissection. There are calcifications of the coronary arteries. 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 Prosthetic aortic valve. There are visualized mediastinal lymph nodes, which are within normal size limits, and with normal morphology. Normal hilar regions. Normal visualized trachea and bronchi. The lungs are well expanded. Bilateral pleural effusions slightly worse on the left side with the focal loculation in the right major fissure as well as in the posterior medial aspect of the left lower lobe. Scarring at the lung bases with bronchiectasis. Bibasilar dependent atelectasis. Normal chest wall structures. There are degenerative changes of thoracic spine. Small hiatal hernia. CT/CTA Chest W/WO Contrast IMPRESSION: No evidence of pulmonary embolism. Bilateral pleural effusions with the loculations as described worse in the left hemithorax. Bibasilar scarring with bibasilar dependent atelectasis. Prior CABG and aortic valve replacement. Electronically Signed: Elpidio Cuevas MD at 12:54 EST ,
[2024-10-18] MEDS: 0.9% Normal Saline (1000mL) 1,000 ML 999 ML IV (11:49)
--- NOTE | 2024-10-18 11:57 | EKG12_ITS ---
Test Reason : DYSP Blood Pressure : */* mmHG Vent. Rate : 63 BPM Atrial Rate : 63 BPM P-R Int : 80 ms QRS Dur : 132 ms QT Int : 490 ms P-R-T Axes : * -54 78 degrees QTcB Int : 501 ms Atrial flutter with variable A-V conduction with occasional PVC's and abberrent conduction Left axis deviation Cannot rule out Inferior infarct , age undetermined Abnormal ECG Confirmed by Nate Monet ([id number]), editorial project manager MARICRUZ ANGUIANO ([id number]) on 10/21/2024 9:07:34 AM Referred By: Confirmed By: Nate Monet
[2024-10-19] VITALS (9 sets, daily range): BP systolic 128–168; BP diastolic 56–88; PULSE 54–74; RESP 12–18; TEMP 36.7; O2SAT 96–98
--- NOTE | 2024-10-19 00:06 | ED.RN ---
Report called to Suma MAURICE.
--- NOTE | 2024-10-19 07:22 | ED.RN ---
daughter Jigna updated.
== END 2024-10-19 07:53 | disposition short-term general hospital (02) ==
LOC: ED 10:24
PROVIDERS: Emergency Provider Surgery; PCP Internal Medicine; Visit Provider Surgery
DX: J90 Pleural effusion, not elsewhere classified (principal); I50.32 Chronic diastolic (congestive) heart failure; I13.0 Hypertensive heart and chronic kidney disease with heart failure and stage 1 through stage 4 chronic kidney disease, or unspecified chronic kidney disease; I27.21 Secondary pulmonary arterial hypertension; I48.0 Paroxysmal atrial fibrillation; E11.22 Type 2 diabetes mellitus with diabetic chronic kidney disease; Z79.4 Long term (current) use of insulin; E87.1 Hypo-osmolality and hyponatremia; E78.5 Hyperlipidemia, unspecified; N18.2 Chronic kidney disease, stage 2 (mild); I25.10 Atherosclerotic heart disease of native coronary artery without angina pectoris; J98.11 Atelectasis; Z79.01 Long term (current) use of anticoagulants; Z79.899 Other long term (current) drug therapy; Z87.891 Personal history of nicotine dependence; Z95.1 Presence of aortocoronary bypass graft
CPT/HCPCS: 71275; 80048; 83880; 84484; 85025; 85379; 87631; 93005; 94760; 96360; 96361; 99284; Q9967; A4216

== ENCOUNTER 2024-11-01 12:28 | Inpatient (IN) | payer MEDICARE, SELFPAY ==
[2024-11-01 13:04] VITALS: BP 136/51; PULSE 82; RESP 18; TEMP 36.6; O2SAT 98; BMI 27.1
[2024-11-01] MEDS: Furosemide 40 MG Tablet PO (14:01)
--- NOTE | 2024-11-01 15:57 | PCM.HP.STD ---
HPI - General General Date of Admission: 11/01/24 Date of Service: 11/01/24 Chief Complaint: Here for rehabilitation. HPI Narrative TIRSO CALDERÓN, is a 89 Male who presents with followin10/18/2024 [facility] ED with shortness of breath. CTA chest negative pulmonary embolism, showed bilateral pleural effusion with loculation. Transfer to [facility] to consider thoracentesis. 10/19/2024 Admit to [facility]. Consult Cardiothoracic surgery for loculated bilateral pleural effusion. 10/21/2024 IR placed chest tube. 10/22/2024 Hold antibiotics. Continue chest tube to suction. Eliquis held in case of surgery. 10/24/2024 Effusion is transudate, antibiotics not necessary. Chest tube 30mm HG. Consider urology for hematuria. 10/25/2024 Plan chest tube removal if draining < 200cc in 24 hours. Hematuria improved with flushes. 10/26/2024 Room Air. Hematuria resolved. Coude espitia catheter for BPH, urinary retention. 10/27/2024 Consider pulling chest tube. Hold anticoagulation 2/2 hematuria. Restart Eliquis after discharge. 10/28/2024 Discontinue chest tube soon. Hold anticoagulation. 10/29/2024 Transfuse if hemoglobin < 7. Chest tube out. 10/30/2024 No acute events overnight. Jennifer colored urine in bag. 11/01/2024 Admit to TCU with debility, here for rehabilitation, strengthening, prior to discharge home alone. [facility] Medical History (Updated 11/01/24 @ 16:[address] Scot Warren MD) Pleural effusion CHF (congestive heart failure) Congestive heart failure Carotid artery bruit Hypoglycemia associated with type 2 diabetes mellitus Frequent falls Elevated LFTs Physical debility BPH (benign prostatic hyperplasia) Vitamin D deficiency Chronic renal failure, stage 2 (mild) Thrombocytopenia Significant closed head trauma within past 3 months Abnormal LFTs Chronic diastolic (congestive) heart failure Dehydration Acute on chronic renal failure Hyperkalemia Hyponatremia Abrasions of multiple sites Fall Bradycardia Near syncope Obesity Secondary pulmonary arterial hypertension Paroxysmal atrial fibrillation Postoperative atrial fibrillation (01/01/19) Essential (primary) hypertension Anxiety and depression Thyroid nodule Stenosis of right subclavian artery Pleural effusion on left Iron deficiency anemia Type 2 diabetes mellitus Left bundle branch block Non-rheumatic aortic stenosis Atherosclerosis of coronary artery of crow heart without angina pectoris Hyperlipidemia Home Medications ?Medication ?Instructions ?Recorded ?Last Taken ?Type vitamins A,C,L-zrgd-cmohrp 4,296 1 cap PO BID EYE HEALTH 03/07/19 10/25/19 History mcg-226 mg-90 mg capsule decqbtod-cy-flzgl 300 mcg-K 60 1 tab PO DAILY supplement 10/25/19 10/25/19 History mcg-lycop 600 mcg-lutein 300 mcg tablet Iron 65 mg PO BID 01/15/21 Unknown History mirtazapine 7.5 mg tablet 30 mg PO QHS sleep 02/14/23 Unknown History clonazepam 0.5 mg tablet (Klonopin) 0.5 mg PO BID PRN anxiety 08/08/23 Unknown History buspirone 15 mg tablet 15 mg PO BID mood 11/25/23 Unknown History doxepin 50 mg capsule 75 mg PO QHS mood/pain 11/25/23 Unknown History tamsulosin 0.4 mg capsule 0.8 mg PO DAILY@1730 urinary 11/25/23 Unknown History retention finasteride 5 mg tablet (Proscar) 5 mg PO DAILY prostate #30 tabs 11/27/23 Unknown Rx potassium chloride 10 mEq 20 meq (2 x 10 mEq) PO DAILY #60 11/27/23 Unknown Rx tablet,extended release tabs amlodipine 10 mg tablet 10 mg PO DAILY #90 tabs 02/20/24 Unknown Rx apixaban 2.5 mg tablet 2.5 mg PO BID anticoagulant #60 02/20/24 Unknown Rx tabs furosemide 40 mg tablet (Lasix) 40 mg PO BID water pill #180 tabs 02/20/24 Unknown Rx lisinopril 20 mg tablet 20 mg PO BID this is a dose 02/20/24 Unknown Rx increase #180 tabs metoprolol tartrate 25 mg tablet 12.5 mg (1/2 x 25 mg) PO BID high 02/20/24 Unknown Rx blood pressure #90 tabs insulin lispro protamine-lispro See Rx Instructions subcut 06/17/24 Unknown Rx 100 unit/mL (50-50) subcutaneous .COMPLEX #17.4 mL pen (Humalog Mix 50-50 KwikPen) atorvastatin 40 mg tablet 40 mg PO QHS antihyperlipidemics 10/11/24 Unknown History azithromycin 500 mg tablet See Rx Instructions PO .COMPLEX #3 10/13/24 Unknown Rx tabs acetaminophen 325 mg tablet 650 mg PO Q6H PRN pain 11/01/24 Unknown History ferrous sulfate 325 mg (65 mg 325 mg PO BID supplement 11/01/24 Unknown History iron) tablet (FeroSul) sennosides 8.6 mg-docusate sodium 1 tab-cap PO BID constipation 11/01/24 Unknown History 50 mg tablet (Senna with Docusate Sodium) Allergy/AdvReac Type Severity Reaction Status Date / Time No Known Allergies Allergy Verified 10/11/24 12:24 Family History Father CVA (cerebral vascular accident) Mother COPD (chronic obstructive pulmonary disease) Surgical History History of open reduction and internal fixation (ORIF) procedure History of cataract surgery History of hip replacement History of thoracentesis (01/05/19) History of left heart catheterization (10/31/18) H/O aortic valve replacement (01/01/19) 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 Scot Warren MD) household members: none Smoking Status: Former smoker quit date: 11/13/03 how long ago did patient quit smoking: cigars ROS Constitutional Constitutional: Reports weakness; Denies chills, fever(s) or weight gain ENT HEENT: Denies headache(s), nasal congestion or nasal discharge Cardiovascular Cardiovascular: Denies chest pain or palpitations Respiratory/Chest Respiratory/Chest: Denies cough, excessive phlegm production or shortness of breath with exertion Gastrointestinal Gastrointestinal: Denies abdominal pain, nausea or vomiting Genitourinary Genitourinary: Denies dysuria Musculoskeletal Musculoskeletal: Denies joint pain or joint swelling Integumentary Integumentary: Denies rash or wounds Neurologic Neurologic: Denies focal weakness, numbness or tingling Psychiatric Psychiatric: Denies anxiety, auditory hallucinations, depression, homicidal ideation or suicidal ideation Vital Signs Vital Signs Vital Signs: 11/01/24 13:04 11/01/24 13:04 Temperature 97.8 F Temperature Source Temporal Pulse Rate 82 Pulse Rhythm Irregular Pulse Strength Normal (2+) Respiratory Rate 18 Respiratory Effort Normal Non-Labored Respiratory Depth Normal Respiratory Pattern Normal Blood Pressure 136/51 H Blood Pressure Mean 79 Blood Pressure Source Monitor Pulse Ox 98 Oxygen Delivery Method Room Air Room Air Weight Weight: 81.193 kg Body Mass Index (BMI) 27.1 Physical Exam Const alert General Appearance: cooperative HEENT normocephalic Eyes PERRL and EOMs intact bilaterally Neck supple, no JVD and no carotid bruits Resp normal respiratory effort, normal air movement and clear to auscultation bilaterally Cardio regular rate and regular rhythm GI normal to inspection, nondistended, normoactive bowel sounds, non-tender and non-distended Bladder / Kidney Exam: catheter in place urethral Extremity normal capillary refill General Extremity: Negative for edema Skin no rashes or lesions noted General Skin Exam: no breakdown Psych affect normal Appearance: appropriate Assessment & Plan Assessment/Plan (1) Debility: (2) Acute respiratory failure with hypoxia: (3) Bilateral pleural effusion: (4) Hematuria: (5) BPH (benign prostatic hyperplasia): QUALIFIERS: Lower urinary tract symptom detail: incomplete bladder emptying Lower urinary tract symptom presence: symptoms present Qualified Code(s): N40.1 - Benign prostatic hyperplasia with lower urinary tract symptoms; R39.14 - Feeling of incomplete bladder emptying (6) Urinary retention: (7) (HFpEF) heart failure with preserved ejection fraction: (8) Atrial fibrillation: (9) Diabetes: QUALIFIERS: Diabetes mellitus complication detail: with polyneuropathy Diabetes mellitus complication status: with neurologic complications Diabetes mellitus custodial insulin use: with longitudinal float operator use Diabetes mellitus type: type 2 Qualified Code(s): E11.42 - Type 2 diabetes mellitus with diabetic polyneuropathy; Z79.4 - FDC (current) use of insulin (10) Anxiety: (11) Insomnia: (12) Hypokalemia: (13) Essential (primary) hypertension: (14) Hyperlipidemia: QUALIFIERS: Hyperlipidemia type: mixed hyperlipidemia Qualified Code(s): E78.2 - Mixed hyperlipidemia PLAN: Plan 89 year old male with below past medical history hospitalized for acute respiratory failure with hypoxia 2/2 bilateral loculated pleural effusions requiring chest tube, complicated by hematuria, bph, urinary retention, admitted to TCU with debility, here for rehabilitation, strengthening, prior to discharge to LTC, resident daughter looking for place. Debility - PT/OT. Pain - Tylenol 1000mg q6 prn pain (1-10). Bowel - senna/colace 1 tablet po bid. Adult immunization - Administer pneumonia vaccine, covid vaccine, flu vaccine as appropriate. DVT prophylaxis - on Eliquis. Atrial fibrillation - Metoprolol 12.5mg bid, Eliquis 5mg bid. Hyperlipidemia - Atorvastatin 40mg qhs. Anxiety - Buspar 15mg bid, Clonazepam 0.5mg bid prn, stable chronic custodial use, GDR not recommended. Insomnia - Doxepin 75mg qhs, stable chronic longitudinal float operator use, GDR not recommended. Iron deficiency anemia - Ferrous sulfate 325mg po bid. BPH - Finasteride 5mg daily, Tamsulosin 0.8mg daily, indwelling espitia catheter, voiding trials in 3 days. Chronic HFpEF - Metoprolol 12.5mg bid, Furosemide 40mg bidlx. Depression/Appetite loss - Mirtazapine 30mg qhs, stable chronic longitudinal float operator use, GDR not recommended. Nutrition - MVI 1 tablet daily.
[2024-11-01] MEDS: Ferrous Sulfate 325 MG Tablet PO (16:39)
[2024-11-01] MEDS: Tamsulosin HCl 0.4 MG Capsule 0.8 MG PO (16:39)
[2024-11-01 17:22] LABS: Bedside Glucose 145 mg/dL (74-106)
[2024-11-01 22:48] VITALS: BP 119/52; PULSE 72
[2024-11-01] MEDS: Menthol/Lanolin/Calamine/Znox 113 GM Tube 1 APPLIC TOPICAL (22:51)
[2024-11-01] MEDS: Doxepin Hcl 25 MG Capsule 75 MG PO (22:53)
[2024-11-01] MEDS: busPIRone 15 MG TABLET PO (22:53)
[2024-11-01] MEDS: Senna/Docusate Sodium 1 Tablet PO (22:54)
[2024-11-01] MEDS: Mirtazapine 30 MG Tablet PO (22:54)
[2024-11-01 22:55] VITALS: BP 119/52; PULSE 72
[2024-11-01] MEDS: Metoprolol Tartrate 25 MG Tablet 12.5 MG PO (22:55)
[2024-11-01] MEDS: Atorvastatin Calcium 40 MG Tablet PO (22:57)
[2024-11-01] MEDS: APIXABAN 5 MG TABLET PO (22:59)
[2024-11-02 05:20] VITALS: BP 122/55; PULSE 65
[2024-11-02] MEDS: Furosemide 40 MG Tablet PO ×2 (05:22→13:29)
[2024-11-02 05:49] LABS: Absolute Lymphocyte Count 1.63 X10^3/uL (0.83-4.51); Absolute Neutrophil Count 5.8 X10^3/uL (2.0-7.7); Basophil# 0.05 X10^3/uL; Basophil% 0.6 % (0-1); Eosinophil# 0.33 X10^3/uL; Eosinophils% 3.9 % (0-5); Hemoglobin 8.7 g/dL (13.0-16.5); Lymphocyte # 1.63 X10^3/ul (0.83-4.51); Lymphocyte % 19.1 % (19-41); Mean Corp Hgb Conc 32.2 g/dL (32-36); Mean Corpuscular Hgb 28.5 pg (27.0-32.0); Mean Corpuscular Volume 88.5 fL (80-94); Mean Platelet Vol. 10.1 fl (6.2-12.0); Monocyte# 0.74 X10^3/uL; Monocyte% 8.7 % (0-10); NRBC Flagged by Analyzer 0 % (0-5); Neutrophil # 5.76 X10^3/uL (2.7-7.7); Neutrophil % 67.2 % (47-70); Platelet Count 254 K/mm3 (150-450); RBC Distribution Width CV 14.6 % (11.6-14.6); RBC Distribution Width SD 46.3 fl (35.1-43.9); Red Blood Count 3.05 M/mm3 (4.6-6.2); White Blood Count 8.6 K/mm3 (4.4-11.0)
[2024-11-02 06:18] LABS: Bedside Glucose 123 mg/dL (74-106)
[2024-11-02 07:07] LABS: Anion Gap 6 (5-15); BUN 20 mg/dL (7-18); BUN/Creat Ratio 18.9 RATIO (10-20); Calcium,Total 8.7 mg/dL (8.5-10.1); Chloride 103 mmol/L (98-107); Creatinine, Serum 1.06 mg/dL (0.70-1.30); EST Glomerular Filtration Rate 70 mL/min (>60); Est Glom Filt Rate - Afr Amer 85 mL/min (>60); Glucose 122 mg/dL (74-106); Potassium 3.7 mmol/L (3.5-5.1); Sodium Level 136 mmol/L (136-145)
[2024-11-02 08:24] VITALS: PULSE 71
[2024-11-02] MEDS: Multivitamins,Ther W-Minerals Tablet 1 TABLET PO (08:24)
[2024-11-02] MEDS: Finasteride 5 MG Tablet PO (08:24)
[2024-11-02] MEDS: Senna/Docusate Sodium 1 Tablet PO ×2 (08:24→20:47)
[2024-11-02] MEDS: APIXABAN 5 MG TABLET PO ×2 (08:24→20:45)
[2024-11-02] MEDS: busPIRone 15 MG TABLET PO ×2 (08:24→20:46)
[2024-11-02] MEDS: Metoprolol Tartrate 25 MG Tablet 12.5 MG PO ×2 (08:24→20:47)
[2024-11-02] MEDS: Menthol/Lanolin/Calamine/Znox 113 GM Tube 1 APPLIC TOPICAL ×2 (08:24→20:48)
[2024-11-02 09:26] VITALS: BP 119/46; PULSE 71; RESP 16; TEMP 36.3; O2SAT 99
[2024-11-02] MEDS: Tuberculin,Purif.prot.deriv. 50 TU/ML Vial 0.1 ML ID (09:39)
[2024-11-02] MEDS: Ferrous Sulfate 325 MG Tablet PO ×2 (11:07→16:40)
--- NOTE | 2024-11-02 12:16 | PCM.PN.DRR ---
Documented by User: Aba Mckeon 11/02/24 12:46 TCU RX Drug Regimen Review Subjective/Objective Subjective/Objective Subjective: TCU admission note. 89 year old male with below past medical history hospitalized for acute respiratory failure with hypoxia 2/2 bilateral loculated pleural effusions requiring chest tube, complicated by hematuria, bph, urinary retention, admitted to TCU with debility, here for rehabilitation, strengthening, prior to discharge to LTC, resident daughter looking for place. Objective: Allergies No Known Allergies Allergy (Verified 10/11/24 12:24) Current Medications Generic Name Dose Route Start Last Admin Trade Name Freq PRN Reason Stop Dose Admin Acetaminophen 1,000 mg 11/01/24 16:28 Acetaminophen 500 Mg Tablet PO Q6H PRN pain 1-10 Apixaban 5 mg 11/01/24 22:00 11/02/24 08:24 Apixaban 5 Mg Tablet PO 5 mg BID FIDEL Administration Atorvastatin Calcium 40 mg 11/01/24 22:00 11/01/24 22:57 Atorvastatin Calcium 40 Mg Tablet PO 40 mg QHS FIDEL Administration Buspirone HCl 15 mg 11/01/24 22:00 11/02/24 08:24 Buspirone 15 Mg Tablet PO 15 mg BID FIDEL Administration Calamine/Phenol 1 applic 11/01/24 22:00 11/02/24 08:24 Menthol/Lanolin/Calamine/Znox 113 Gm Tube TOPICAL 1 applic BID FIDEL Administration Protocol Clonazepam 0.5 mg 11/01/24 12:49 Clonazepam 0.5 Mg Tablet PO BID PRN anxiety Doxepin HCl 75 mg 11/01/24 22:00 11/01/24 22:53 Doxepin Hcl 25 Mg Capsule PO 75 mg QHS FIDEL Administration Ferrous Sulfate 325 mg 11/01/24 17:00 11/02/24 11:07 Ferrous Sulfate 325 Mg Tablet PO 325 mg BID@1200,1700 FIDEL Administration Finasteride 5 mg 11/02/24 10:00 11/02/24 08:24 Finasteride 5 Mg Tablet PO 5 mg DAILY FIDEL Administration Furosemide 40 mg 11/01/24 14:00 11/02/24 05:22 Furosemide 40 Mg Tablet PO 40 mg BIDLX FIDEL Administration Protocol Metoprolol Tartrate 12.5 mg 11/01/24 22:00 11/02/24 08:24 Metoprolol Tartrate 25 Mg Tablet PO 12.5 mg BID FIDEL Administration Protocol Mirtazapine 30 mg 11/01/24 22:00 11/01/24 22:54 Mirtazapine 30 Mg Tablet PO 30 mg QHS FIDEL Administration Multivitamins/Minerals 1 tablet 11/02/24 08:00 11/02/24 08:24 Multivitamins,Ther W-Minerals Tablet PO 1 tablet DAILYCM FIDEL Administration Senna/Docusate Sodium 1 tablet 11/01/24 22:00 11/02/24 08:24 Senna/Docusate Sodium 1 Tablet PO 1 tablet BID FIDEL Administration Sodium Chloride 10 - 40 ml 11/01/24 13:17 0.9% Saline Lock 10 Ml Syringe IV UD PRN SALINE FLUSH Tamsulosin HCl 0.8 mg 11/01/24 17:30 11/01/24 16:39 Tamsulosin Hcl 0.4 Mg Capsule PO 0.8 mg DAILY@1730 FIDEL Administration Tuberculin PPD 0.1 ml 11/09/24 10:00 Tuberculin,Purif.Prot.Deriv. 50 Tu/Ml Vial ID 11/09/24 10:01 X1 ONE Problem List Essential (primary) hypertension (Acute) Hypokalemia (Acute) Insomnia (Acute) Anxiety (Acute) Atrial fibrillation (Acute) (HFpEF) heart failure with preserved ejection fraction (Acute) Urinary retention (Acute) BPH (benign prostatic hyperplasia) (Acute) Hematuria (Acute) Bilateral pleural effusion (Acute) Acute respiratory failure with hypoxia (Acute) Debility (Acute) Hyperlipidemia (Chronic) Diabetes (Chronic) Vital Signs Temp Pulse Resp BP Pulse Ox O2 Del Method 97.3 F L 71 16 119/46 L 99 Room Air 11/02/24 09:26 11/02/24 09:26 11/02/24 09:26 11/02/24 09:26 11/02/24 09:26 11/02/24 10:00 Oxygen Delivery Method Room Air Weight: 81.193 kg Body Mass Index (BMI) 27.1 Sodium 136 mmol/L (136-145) 11/02/24 05:10 Potassium 3.7 mmol/L (3.5-5.1) 11/02/24 05:10 Chloride 103 mmol/L (98-107) 11/02/24 05:10 Carbon Dioxide 27.0 mmol/L (21.0-32.0) 11/02/24 05:10 Anion Gap 6 (5-15) 11/02/24 05:10 BUN 20 mg/dL (7-18) H 11/02/24 05:10 Creatinine 1.06 mg/dL (0.70-1.30) 11/02/24 05:10 Est GFR (MDRD) Af Amer 85 mL/min (>60) 11/02/24 05:10 Est GFR (MDRD) Non-Af 70 mL/min (>60) 11/02/24 05:10 BUN/Creatinine Ratio 18.9 RATIO (10-20) 11/02/24 05:10 Glucose 122 mg/dL (74-106) H 11/02/24 05:10 Assessment/Plan: 1. Pain: acetaminophen 1000 mg PO Q6H PRN pain. The patient has not required any PRN doses of acetaminophen so far this admission. Please continue to monitor pain levels, PRN medication usage and LFTs (AST/ALT = 54/26 U/L on 10/12/24). 2. Bowel: senna/docusate 1 tablet PO BID. Please continue to monitor for bowel movements (last = 10/31/24), for diarrhea, and constipation. 3. Atrial fibrillation/chronic HFpEF: apixaban 5 mg PO BID, furosemide 40 mg PO BID, metoprolol tartrate 12.5 mg PO BID. Please continue to monitor for s/s of a heart failure exacerbation such as shortness of breath, chest pain, edema, for s/s of stroke, for bleeding/excessive bruising, hemoglobin levels (Hgb = 8.7g/dL on 11/02/24), platelet count (Plt = 254 K/mm3 on 11/02/24), renal function (serum creatinine =1.06 mg/dL with creatinine clearance ~ 48 mL/min on 11/02/24), sodium levels (Na = 136 mmol/L on 11/02/24), potassium levels (K = 3.7 mmol/L on 11/02/24), calcium levels (Ca = 8.7 mg/dL ON 11/02/24), blood pressures (recent range = 119-136/46-55 mmHg), heart rates (recent range = 65-82 beats/min), and for fatigue. 4. BPH: finasteride 5 mg PO daily, tamsulosin 0.8 mg PO daily. Please continue to monitor for urinary retention and for s/s of orthostasis. 5. Hyperlipidemia: atorvastatin 40 mg PO QHS. Please continue to monitor lipid levels (cholesterol = 117 mg/dL with LDL = 41 mg/dL on 10/16/24), LFTs (AST/ALT = 54/26 U/L on 10/12/24), and for myalgias. 6. Iron deficiency anemia: ferrous sulfate 325 mg PO BID. Please continue to monitor hemoglobin levels (Hgb = 8.7 g/dL on 11/02/24), and iron levels (iron = 46 ug/dL on 10/25/19). 7. Nutrition: multivitamin 1 tablet PO daily. Please continue to monitor nutritional status. 8. Skin irritation: calmoseptine 1 application topically BID. Please continue to monitor for skin irritation and skin integrity. Assessment/Plan for indications treated with psychotropic medications: 1. Anxiety: buspirone 15 mg PO BID, clonazepam 0.5 mg PO BID PRN anxiety. Please see provider note regarding stable chronic long-term use GDR not recommended. Please continue to monitor for anxiety, for drowsiness/dizziness, for syncope/ataxia/falls, and nausea. 2. Depression/appetite loss: mirtazapine 30 mg PO QHS. Please see provider note regarding stable chronic long-term use GDR not recommended. Please continue to monitor for depression, for SI, for insomnia, for drowsiness, and for constipation. 3. Insomnia: doxepin 75 mg PO QHS. Please see provider note regarding stable chronic long-term use GDR not recommended. Please continue to monitor for insomnia, for drowsiness, for s/s of anticholinergic side effects such as dry eyes, dry mouth, constipation and urinary retention, for s/s of orthostasis, and for SI. Medical chart and medication regimen reviewed. The following medication irregularities or issues were identified: NA Date Date of Note: 11/02/24 Documented by User: Dr. Scot Warren MD 11/03/24 13:09 TCU RX Drug Regimen Review Provider Comments Provider responsibility Provider Comments to Recommendations by Pharmacy Agree
[2024-11-02] MEDS: Tamsulosin HCl 0.4 MG Capsule 0.8 MG PO (16:40)
[2024-11-02 16:44] LABS: Bedside Glucose 165 mg/dL (74-106)
[2024-11-02] MEDS: Doxepin Hcl 25 MG Capsule 75 MG PO (20:46)
[2024-11-02] MEDS: Atorvastatin Calcium 40 MG Tablet PO (20:46)
[2024-11-02 20:47] VITALS: BP 125/57; PULSE 71
[2024-11-02] MEDS: Mirtazapine 30 MG Tablet PO (20:48)
[2024-11-03] MEDS: Furosemide 40 MG Tablet PO ×2 (06:24→13:18)
[2024-11-03 06:26] VITALS: BP 123/63; PULSE 58
[2024-11-03 06:38] LABS: Bedside Glucose 125 mg/dL (74-106)
[2024-11-03 07:45] VITALS: BP 133/56; PULSE 74; RESP 16; TEMP 36.3; O2SAT 97
[2024-11-03 08:04] VITALS: BP 133/56; PULSE 74
[2024-11-03] MEDS: APIXABAN 5 MG TABLET PO ×2 (08:04→21:25)
[2024-11-03] MEDS: busPIRone 15 MG TABLET PO ×2 (08:04→21:25)
[2024-11-03] MEDS: Multivitamins,Ther W-Minerals Tablet 1 TABLET PO (08:04)
[2024-11-03] MEDS: Senna/Docusate Sodium 1 Tablet PO (08:04)
[2024-11-03] MEDS: Finasteride 5 MG Tablet PO (08:04)
[2024-11-03] MEDS: Metoprolol Tartrate 25 MG Tablet 12.5 MG PO ×2 (08:04→21:25)
[2024-11-03] MEDS: Menthol/Lanolin/Calamine/Znox 113 GM Tube 1 APPLIC TOPICAL ×2 (08:05→21:25)
[2024-11-03] MEDS: Ferrous Sulfate 325 MG Tablet PO ×2 (11:59→16:41)
[2024-11-03 13:30] VITALS: PULSE 74; RESP 16; O2SAT 97
[2024-11-03] MEDS: Tamsulosin HCl 0.4 MG Capsule 0.8 MG PO (16:41)
[2024-11-03 16:57] LABS: Bedside Glucose 119 mg/dL (74-106)
--- NOTE | 2024-11-03 17:03 | NURSING ---
New order received from Dr. ferraro 1) Decrease Senna S to once daily. Per patient request. Patient aware of above.
[2024-11-03 21:25] VITALS: BP 134/63; PULSE 65
[2024-11-03] MEDS: Atorvastatin Calcium 40 MG Tablet PO (21:25)
[2024-11-03] MEDS: Mirtazapine 30 MG Tablet PO (21:25)
[2024-11-03] MEDS: Doxepin Hcl 25 MG Capsule 75 MG PO (21:25)
[2024-11-03 21:45] VITALS: BP 134/63; PULSE 65
[2024-11-04] MEDS: Furosemide 40 MG Tablet PO ×2 (05:27→14:04)
[2024-11-04 06:05] VITALS: BP 153/77; PULSE 69
[2024-11-04 06:44] LABS: Bedside Glucose 148 mg/dL (74-106)
[2024-11-04] MEDS: busPIRone 15 MG TABLET PO ×2 (08:57→21:00)
[2024-11-04] MEDS: APIXABAN 5 MG TABLET PO ×2 (08:57→21:01)
[2024-11-04] MEDS: Multivitamins,Ther W-Minerals Tablet 1 TABLET PO (08:57)
[2024-11-04] MEDS: Finasteride 5 MG Tablet PO (08:57)
[2024-11-04] MEDS: Menthol/Lanolin/Calamine/Znox 113 GM Tube 1 APPLIC TOPICAL ×2 (08:57→20:59)
[2024-11-04] MEDS: Senna/Docusate Sodium 1 Tablet PO (08:58)
[2024-11-04 08:59] VITALS: PULSE 72
[2024-11-04] MEDS: Metoprolol Tartrate 25 MG Tablet 12.5 MG PO ×2 (08:59→21:01)
[2024-11-04 09:30] VITALS: O2SAT 97
[2024-11-04 10:57] VITALS: BP 115/51; PULSE 72; RESP 16; TEMP 36.3; O2SAT 97
--- NOTE | 2024-11-04 11:55 | CASEMGMT ---
Social Work SW received call from dtr, left a VM, requesting a return call to discuss SNF placement for pt. Nursing notified this worker that dtr is visiting pt and would like to speak with pt. -- SW presented to pt's room. Dtr had left already. SW to return call to dtr. SW introduced self and role. Brother Aaron, present. SW to complete initial assessment. Pt granted permission for brother to remain. Verified/updated contacts. Patient confirmed code status as DNR-CCA, no intubation. Educated to [facility] insurance with NRD 11/12 and continued stay is not guaranteed with each review. Pt explained he feels he can no longer return home alone and would like DC to a SNF LTP. SW can assist with transition. Offered to provide lists of options. Pt stated he prefers [facility] and his dtr already contacted the SW. SW agreed to place referral to inquire about availability. SW confirmed pt is aware of OOP cost. Explored pt's finances. Pt can pay OOP for about 3 months before needing to apply for Medicaid. Pt expressed understanding. SW answered questions. Pt appeared in good spirits, bellstand attendant, and appreciative of this worker. -- SW returned call to dtr. Dtr confirmed pt's wishes with referral to [facility] and speaking with Viridiana, the [facility]. This worker confirmed ability to pay OOP initially. Dtr aware. SW to place referral. Dtr appreciative. -- SW referred to [facility] via [facility]. They can accept when pt is ready for DC. SW will keep [facility] updated on DC date. SW to update pt and dtr at POC meeting. SW will continue to follow for DC planning. Sridevi Mares FOSTER CARE WORKER TOPOGRAPHICAL DRAFTER
[2024-11-04] MEDS: Ferrous Sulfate 325 MG Tablet PO ×2 (11:56→16:57)
--- NOTE | 2024-11-04 13:34 | NURSING ---
Junior Staff Accountant Note: Activity Asst: Negrita Riley is independent in his choice of daily activities. His family visits daily and he prefers in room activities such as tv, reading and resting over group. He welcomes visits from the director of community life and therapy when available. He prefers to be called Bill. Staff will continue to offer social activities and respect his right to say no.
[2024-11-04] MEDS: COVID VAC 24-25 (12UP)(MODERNA)/PF 50 MCG/0.5 ML SYRINGE IM (15:48)
[2024-11-04 16:32] LABS: Bedside Glucose 135 mg/dL (74-106)
[2024-11-04] MEDS: Tamsulosin HCl 0.4 MG Capsule 0.8 MG PO (16:56)
[2024-11-04 20:57] VITALS: BP 124/56; PULSE 73
[2024-11-04 21:01] VITALS: BP 124/56; PULSE 73
[2024-11-04] MEDS: Atorvastatin Calcium 40 MG Tablet PO (21:01)
[2024-11-04] MEDS: Doxepin Hcl 25 MG Capsule 75 MG PO (21:03)
[2024-11-04] MEDS: Mirtazapine 30 MG Tablet PO (21:03)
--- NOTE | 2024-11-04 22:00 | NURSING ---
Patient bladder scanned for 587cc, unable to void, straight cathed for 550cc, #1 straight cath on voiding trial. continue voiding trial.
--- NOTE | 2024-11-05 02:39 | NURSING ---
Pt. called out for nurse sating his bladder felt full. Bladder scanned for 600cc. This nurse assisted pt. to stand and void in urinal. Pt. voided 300cc in urinal, Pt bladder scanned post void for 315cc. Straight cathed pt. for 250cc.
[2024-11-05] MEDS: Furosemide 40 MG Tablet PO ×2 (05:14→14:38)
[2024-11-05 06:47] LABS: Bedside Glucose 137 mg/dL (74-106)
[2024-11-05 08:51] VITALS: PULSE 72
[2024-11-05] MEDS: Multivitamins,Ther W-Minerals Tablet 1 TABLET PO (08:51)
[2024-11-05] MEDS: Senna/Docusate Sodium 1 Tablet PO (08:51)
[2024-11-05] MEDS: busPIRone 15 MG TABLET PO ×2 (08:51→22:45)
[2024-11-05] MEDS: Metoprolol Tartrate 25 MG Tablet 12.5 MG PO ×2 (08:51→22:45)
[2024-11-05] MEDS: Finasteride 5 MG Tablet PO (08:51)
[2024-11-05] MEDS: APIXABAN 5 MG TABLET PO ×2 (08:51→22:45)
[2024-11-05] MEDS: Menthol/Lanolin/Calamine/Znox 113 GM Tube 1 APPLIC TOPICAL ×2 (08:52→22:50)
[2024-11-05 10:54] VITALS: BP 112/50; PULSE 72; RESP 18; TEMP 36.2; O2SAT 99
[2024-11-05] MEDS: Ferrous Sulfate 325 MG Tablet PO ×2 (11:22→16:45)
[2024-11-05 12:54] VITALS: BMI 26.9
--- NOTE | 2024-11-05 14:28 | CHAPLAIN ---
Type of Pastoral Visit _x__ Initial Visit ___ Follow-up Visit ___ On-call Visit ___ General Patient Visit ___ Spiritual Assessment ___ Family Conference ___ Bereavement ___ Rapid Response ___ Code Blue ___ Other (describe below) Pastoral Care Referral From _x__ Patient ___ Family ___ Nurse ___ Physician ___ Lace Stripper ___ Mica Inspector ___ Other (describe below) Sacrament/Intervention _x__ Active listening ___ Anointing ___ Religion ___ Bereavement ___ Communion ___ Asiya exploration ___ _x__ Life review _x__ Prayer ___ Reconciliation ___ Sacrament of Sick ___ Supportive presence ___ Wedding ___ Other (describe below) Pastoral Comments patient is sitting quietly in his room alone; pt is welcoming and answers all questions appropriately as he explains his health situation and his future; pt has some local family support although small; pt is planning to move to a local SNF after his time is finished in [facility]; pt is asked about his decision and how he is feeling about the same; pt acknowledges that making a decision for himself can help his family and that he is okay with the place; pt gives some life review, especially about his work history; patient is not connected to a asiya community but welcomes a prayer
[2024-11-05 14:42] VITALS: BP 131/56; PULSE 71
[2024-11-05] MEDS: Tamsulosin HCl 0.4 MG Capsule 0.8 MG PO (16:45)
[2024-11-05 18:16] LABS: Bedside Glucose 115 mg/dL (74-106)
[2024-11-05 22:40] VITALS: BP 121/58; PULSE 72
[2024-11-05 22:45] VITALS: BP 121/58; PULSE 72
[2024-11-05] MEDS: Doxepin Hcl 25 MG Capsule 75 MG PO (22:45)
[2024-11-05] MEDS: Mirtazapine 30 MG Tablet PO (22:45)
[2024-11-05] MEDS: Atorvastatin Calcium 40 MG Tablet PO (22:45)
[2024-11-06] MEDS: Furosemide 40 MG Tablet PO ×2 (06:19→13:56)
[2024-11-06 06:23] VITALS: BP 111/55; PULSE 70
[2024-11-06 06:30] LABS: Bedside Glucose 137 mg/dL (74-106)
[2024-11-06 09:14] VITALS: BP 127/56; PULSE 73
[2024-11-06] MEDS: Finasteride 5 MG Tablet PO (09:14)
[2024-11-06] MEDS: Metoprolol Tartrate 25 MG Tablet 12.5 MG PO ×2 (09:14→20:50)
[2024-11-06] MEDS: Menthol/Lanolin/Calamine/Znox 113 GM Tube 1 APPLIC TOPICAL ×2 (09:15→20:49)
[2024-11-06] MEDS: APIXABAN 5 MG TABLET PO ×2 (09:15→20:50)
[2024-11-06] MEDS: busPIRone 15 MG TABLET PO ×2 (09:15→20:49)
[2024-11-06] MEDS: Senna/Docusate Sodium 1 Tablet PO (09:15)
[2024-11-06] MEDS: Multivitamins,Ther W-Minerals Tablet 1 TABLET PO (09:15)
[2024-11-06] MEDS: Ferrous Sulfate 325 MG Tablet PO ×2 (11:44→17:47)
[2024-11-06 13:45] VITALS: BP 140/62; PULSE 71; O2SAT 99
[2024-11-06 16:00] VITALS: RESP 20; TEMP 37.4
[2024-11-06 17:26] LABS: Bedside Glucose 199 mg/dL (74-106)
[2024-11-06] MEDS: Tamsulosin HCl 0.4 MG Capsule 0.8 MG PO (17:46)
[2024-11-06 20:50] VITALS: PULSE 71
[2024-11-06] MEDS: Atorvastatin Calcium 40 MG Tablet PO (20:50)
[2024-11-06] MEDS: Doxepin Hcl 25 MG Capsule 75 MG PO (20:50)
[2024-11-06] MEDS: Mirtazapine 30 MG Tablet PO (20:50)
[2024-11-07] MEDS: Furosemide 40 MG Tablet PO ×2 (05:52→14:13)
[2024-11-07 07:00] LABS: Bedside Glucose 133 mg/dL (74-106)
[2024-11-07] MEDS: Multivitamins,Ther W-Minerals Tablet 1 TABLET PO (09:12)
[2024-11-07] MEDS: busPIRone 15 MG TABLET PO ×2 (09:13→20:34)
[2024-11-07] MEDS: APIXABAN 5 MG TABLET PO ×2 (09:14→20:33)
[2024-11-07] MEDS: Senna/Docusate Sodium 1 Tablet PO (09:14)
[2024-11-07] MEDS: Finasteride 5 MG Tablet PO (09:15)
[2024-11-07] MEDS: Menthol/Lanolin/Calamine/Znox 113 GM Tube 1 APPLIC TOPICAL ×2 (09:17→20:34)
[2024-11-07 09:19] VITALS: BP 124/60; PULSE 73
[2024-11-07] MEDS: Metoprolol Tartrate 25 MG Tablet 12.5 MG PO ×2 (09:19→20:32)
--- NOTE | 2024-11-07 10:57 | MDS.RN ---
Pain interview for MDS complete.
--- NOTE | 2024-11-07 11:01 | CASEMGMT ---
BIMS () and PHQ2 (2) interviews completed on this date for MDS assessment. DRISS Greco
[2024-11-07] MEDS: Ferrous Sulfate 325 MG Tablet PO ×2 (11:46→17:13)
[2024-11-07] MEDS: Tamsulosin HCl 0.4 MG Capsule 0.8 MG PO (17:13)
[2024-11-07 17:48] LABS: Bedside Glucose 107 mg/dL (74-106)
[2024-11-07 20:32] VITALS: BP 120/61; PULSE 74
[2024-11-07] MEDS: Atorvastatin Calcium 40 MG Tablet PO (20:33)
[2024-11-07] MEDS: Mirtazapine 30 MG Tablet PO (20:33)
[2024-11-07] MEDS: Doxepin Hcl 25 MG Capsule 75 MG PO (20:34)
[2024-11-08 05:00] VITALS: BP 127/56; PULSE 74; RESP 16
[2024-11-08] MEDS: Furosemide 40 MG Tablet PO ×2 (05:10→13:27)
[2024-11-08 06:04] LABS: Absolute Lymphocyte Count 1.35 X10^3/uL (0.83-4.51); Absolute Neutrophil Count 3.9 X10^3/uL (2.0-7.7); Basophil# 0.05 X10^3/uL; Basophil% 0.8 % (0-1); Eosinophil# 0.34 X10^3/uL; Eosinophils% 5.4 % (0-5); Hematocrit 29.6 % (40-54); Hemoglobin 9.5 g/dL (13.0-16.5); Lymphocyte # 1.35 X10^3/ul (0.83-4.51); Lymphocyte % 21.5 % (19-41); Mean Corp Hgb Conc 32.1 g/dL (32-36); Mean Corpuscular Hgb 28.5 pg (27.0-32.0); Mean Corpuscular Volume 88.9 fL (80-94); Mean Platelet Vol. 10.4 fl (6.2-12.0); Monocyte# 0.58 X10^3/uL; Monocyte% 9.2 % (0-10); NRBC Flagged by Analyzer 0 % (0-5); Neutrophil # 3.93 X10^3/uL (2.7-7.7); Neutrophil % 62.5 % (47-70); Platelet Count 203 K/mm3 (150-450); RBC Distribution Width CV 14.6 % (11.6-14.6); RBC Distribution Width SD 47.4 fl (35.1-43.9); Red Blood Count 3.33 M/mm3 (4.6-6.2); White Blood Count 6.3 K/mm3 (4.4-11.0)
[2024-11-08 06:42] LABS: Anion Gap 3 (5-15); BUN 19 mg/dL (7-18); Calcium,Total 8.9 mg/dL (8.5-10.1); Chloride 103 mmol/L (98-107); EST Glomerular Filtration Rate 75 mL/min (>60); Est Glom Filt Rate - Afr Amer 91 mL/min (>60); Estimated Creatinine Clearance 50.35 ml/min; Glucose 153 mg/dL (74-106); Potassium 3.5 mmol/L (3.5-5.1); Sodium Level 137 mmol/L (136-145)
[2024-11-08 06:56] LABS: Bedside Glucose 140 mg/dL (74-106)
[2024-11-08 08:00] VITALS: BP 123/55; PULSE 72; RESP 18; TEMP 36.3; O2SAT 96
[2024-11-08] MEDS: busPIRone 15 MG TABLET PO ×2 (08:38→20:36)
[2024-11-08] MEDS: APIXABAN 5 MG TABLET PO ×2 (08:38→20:35)
[2024-11-08] MEDS: Senna/Docusate Sodium 1 Tablet PO (08:38)
[2024-11-08] MEDS: Multivitamins,Ther W-Minerals Tablet 1 TABLET PO (08:38)
[2024-11-08 08:39] VITALS: BP 123/55; PULSE 72
[2024-11-08] MEDS: Finasteride 5 MG Tablet PO (08:39)
[2024-11-08] MEDS: Metoprolol Tartrate 25 MG Tablet 12.5 MG PO ×2 (08:39→20:36)
[2024-11-08] MEDS: Menthol/Lanolin/Calamine/Znox 113 GM Tube 1 APPLIC TOPICAL ×2 (08:40→20:39)
--- NOTE | 2024-11-08 10:11 | CM.UR ---
Plan of care meeting held with pt and pt's dgt Jigna present. PT/OT updated on pt progress with therapy. SW provided pt/family with written communication on insurance process and copay coverage during stay. PT NRD with insurance os 11/12 and continued stay is not guaranteed. Pt plans to discharge to the [facility] at time of discharge. Referral has been made and [facility] has accepted pt. Plan of care will continue at this time and pt to dc to [facility] when skilled stay is complete. DRISS Greco
[2024-11-08] MEDS: Ferrous Sulfate 325 MG Tablet PO ×2 (11:41→16:49)
--- NOTE | 2024-11-08 11:47 | NURSING ---
Appliance Repairer Note; MDS for 11/08/2024 Complete
[2024-11-08 13:20] VITALS: PULSE 72; RESP 18; O2SAT 96
[2024-11-08] MEDS: Tamsulosin HCl 0.4 MG Capsule 0.8 MG PO (16:49)
[2024-11-08] MEDS: Doxepin Hcl 25 MG Capsule 75 MG PO (20:35)
[2024-11-08] MEDS: Mirtazapine 30 MG Tablet PO (20:35)
[2024-11-08] MEDS: Atorvastatin Calcium 40 MG Tablet PO (20:35)
[2024-11-08 20:36] VITALS: BP 126/60; PULSE 74
--- NOTE | 2024-11-09 03:24 | NURSING ---
Hematuria continues, urine dark red in color, patient on Eliquis, no urology consult at this time, request for espitia flush orders, written communication left for Dr. Heck. Patient states no one has told me yet why my urine is bloody, patient explains this has happened before but it got better, they said it was due to my enlarged prostate. Pt reports hematuria since I went to the other hospital, they had to flush it all the time to get the clots. Espitia patent at this time, small clots observed at times to urine
[2024-11-09] MEDS: Furosemide 40 MG Tablet PO ×2 (05:56→13:45)
[2024-11-09 06:02] VITALS: BP 126/58; PULSE 68; RESP 16
[2024-11-09 06:22] LABS: Bedside Glucose 137 mg/dL (74-106)
[2024-11-09] MEDS: busPIRone 15 MG TABLET PO ×2 (08:47→20:43)
[2024-11-09] MEDS: Menthol/Lanolin/Calamine/Znox 113 GM Tube 1 APPLIC TOPICAL ×2 (08:47→20:47)
[2024-11-09] MEDS: Finasteride 5 MG Tablet PO (08:47)
[2024-11-09] MEDS: Multivitamins,Ther W-Minerals Tablet 1 TABLET PO (08:47)
[2024-11-09] MEDS: Senna/Docusate Sodium 1 Tablet PO (08:48)
[2024-11-09 08:49] VITALS: PULSE 73
[2024-11-09] MEDS: Metoprolol Tartrate 25 MG Tablet 12.5 MG PO ×2 (08:49→21:00)
--- NOTE | 2024-11-09 09:15 | PCM.PROGNOTE ---
Subjective Subjective Asked by nursing to see this patient for gross hematuria. He is chronically on Eliquis 5 mg twice daily for atrial fibrillation. He had a temp of 99.3 on 11/06/2024 but was afebrile yesterday. Blood pressure is within goal and is stable. White blood cell count yesterday was normal with an unremarkable differential. Hemoglobin yesterday was 9.5 which is up from 8.7 on 11/03/2024. Creatinine yesterday was 1.0 and it is stable. Blood sugars are well-controlled. He has a Webster catheter. He has failed 2 voiding trials. He is currently taking Flomax and Proscar however he is also taking doxepin 75 mg nightly which is likely contributing to urine retention. He denies costophrenic angle tenderness also denies nausea and suprapubic pain. He denies night sweats and shaking chills. He tells me he had a similar problem at [place] with bleeding and clotting in the Webster tubing. He denies lightheadedness. He denies chest pain and shortness of breath. He sees a urologist with the [facility]. Fluid intake is poor and he has been in negative fluid balance every day since arriving on TCU. He is on furosemide twice daily. Despite being in negative fluid balance daily his weight has not significantly changed since 11/01/2024. Objective Data Objective Data Vital Signs: Vital Signs Temp Pulse Resp BP Pulse Ox O2 Del Method 97.3 F L 73 16 126/58 H 96 Room Air 11/08/24 08:00 11/09/24 08:49 11/09/24 06:02 11/09/24 06:02 11/08/24 13:20 11/08/24 13:20 Oxygen Delivery Method Room Air Weight: 177 lb 14.4 oz Body Mass Index (BMI) 26.9 Intake & Output: Intake and Output for Last 24 Hours 11/07/24 11/08/24 11/09/24 23:59 23:59 23:59 Intake Total 480 / 480 840 / 840 120 / 120 Output Total 1225 / 1225 2400 / 2400 1400 / 1400 Balance -745 / -745 -1560 / -1560 -1280 / -1280 Lab / Micro Data 11/08/24 05:25 11/08/24 05:25 Labs: Laboratory Results - last 24 hr 11/09/24 05:56: POC Glucose 137 H Micro: Microbiology 11/04/24 10:25 Nasal Secretion SARS-CoV-2 Antigen (Rapid) - Final Physical Exam Const alert, oriented x3 and no apparent distress Constitutional Narrative: Appropriate. Very pleasant General Appearance: cooperative Resp normal respiratory effort and clear to auscultation bilaterally Effort and Inspection: Negative for tachypneic or labored Cardio regular rate, regular rhythm and no gallops Rate: Negative for bradycardia or tachycardic GI GI Narrative: The abdomen is soft and he has no guarding with palpation. Bowel sounds are present in all quadrants. He has no suprapubic pain with palpation. The bladder is not currently distended. Urine in the Webster tubing is [place] colored. Denies flank pain. No CVA tenderness. Assessment & Plan Assessment/Plan (1) Gross hematuria: (2) Webster catheter present: (3) BPH (benign prostatic hyperplasia): QUALIFIERS: Lower urinary tract symptom presence: symptoms present Lower urinary tract symptom detail: incomplete bladder emptying Qualified Code(s): N40.1 - Benign prostatic hyperplasia with lower urinary tract symptoms; R39.14 - Feeling of incomplete bladder emptying (4) Urinary retention: (5) Paroxysmal atrial fibrillation: (6) Anticoagulated: (7) Normochromic normocytic anemia: PLAN: Plan 1. Hold Eliquis 2. Check a UA and a urine culture to exclude infection is the etiology of the hematuria 3. Check a CBC with differential in the a.m. 4. Hold doxepin as it is likely contributing to urine retention. Will give Klonopin 0.5 mg at at bedtime for insomnia 5. Continue to flush the Webster catheter as needed for clots. If the flushes need to be given frequently will likely need to convert to a three-way catheter and start continuous bladder irrigation. 6. HH this evening at 6 PM Discussed with patient. Charges/Coding Visit Charges Inpatient E&M: 66680 [facility] Subs L1
[2024-11-09] MEDS: Tuberculin,Purif.prot.deriv. 50 TU/ML Vial 0.1 ML ID (09:52)
[2024-11-09 10:05] LABS: Mucous, Urine 0 SEEN /hpf (<or=2+)
[2024-11-09 10:19] LABS: Color, Urine Red (Yellow); Glucose, Dipstick Normal (Normal); Ketone-Dipstick Negative (Negative); Leukocyte Esterase-Dipstick 25 /ul (Negative); Nitrite-Dipstick Negative (Negative); Occult Blood-Urine 250 /ul (Negative); Protein-Dipstick 500 mg/dl (Negative); Specific Gravity, Urine 1.015 (1.002-1.030); Urine Bilirubin Dipstick Negative (Negative); Urine Clarity Turbid (Clear); Urine Urobilinogen Normal (Normal); Urine pH 6.5 (5.0 - 8.0)
[2024-11-09 10:27] LABS: Bacteria 1+ /hpf (None Seen); Red Blood Cells-Urine > 100 SEEN /hpf (0-5); Squamous Epithelial Cells - UA 0-5 SEEN /hpf (0-5); White Blood Cells >100 SEEN /hpf (0-5)
[2024-11-09 11:14] VITALS: BP 153/46; PULSE 73; RESP 18; TEMP 36.4; O2SAT 99
[2024-11-09] MEDS: Ferrous Sulfate 325 MG Tablet PO ×2 (11:38→16:33)
[2024-11-09] MEDS: Tamsulosin HCl 0.4 MG Capsule 0.8 MG PO (16:33)
[2024-11-09 16:36] LABS: Bedside Glucose 136 mg/dL (74-106)
[2024-11-09 17:57] LABS: Hematocrit 31.5 % (40-54); Hemoglobin 10.2 g/dL (13.0-16.5)
[2024-11-09] MEDS: Atorvastatin Calcium 40 MG Tablet PO (20:45)
[2024-11-09] MEDS: Mirtazapine 30 MG Tablet PO (20:46)
[2024-11-09] MEDS: clonazePAM 0.5 MG Tablet PO (20:54)
[2024-11-09 21:00] VITALS: BP 123/52; PULSE 74
[2024-11-10] MEDS: Furosemide 40 MG Tablet PO ×2 (05:33→13:22)
[2024-11-10 06:33] LABS: Absolute Lymphocyte Count 1.97 X10^3/uL (0.83-4.51); Absolute Neutrophil Count 4.2 X10^3/uL (2.0-7.7); Basophil# 0.07 X10^3/uL; Eosinophil# 0.33 X10^3/uL; Eosinophils% 4.6 % (0-5); Hematocrit 28.6 % (40-54); Hemoglobin 9.1 g/dL (13.0-16.5); Lymphocyte # 1.97 X10^3/ul (0.83-4.51); Lymphocyte % 27.4 % (19-41); Mean Corp Hgb Conc 31.8 g/dL (32-36); Mean Corpuscular Hgb 28.3 pg (27.0-32.0); Mean Corpuscular Volume 88.8 fL (80-94); Mean Platelet Vol. 10.9 fl (6.2-12.0); Monocyte# 0.58 X10^3/uL; Monocyte% 8.1 % (0-10); NRBC Flagged by Analyzer 0 % (0-5); Neutrophil # 4.19 X10^3/uL (2.7-7.7); Neutrophil % 58.1 % (47-70); Platelet Count 195 K/mm3 (150-450); RBC Distribution Width CV 14.6 % (11.6-14.6); RBC Distribution Width SD 47.5 fl (35.1-43.9); Red Blood Count 3.22 M/mm3 (4.6-6.2); White Blood Count 7.2 K/mm3 (4.4-11.0)
[2024-11-10 06:37] LABS: Bedside Glucose 147 mg/dL (74-106)
[2024-11-10 06:37] LABS: Bedside Glucose 119 mg/dL (74-106)
[2024-11-10] MEDS: Finasteride 5 MG Tablet PO (08:12)
[2024-11-10] MEDS: Multivitamins,Ther W-Minerals Tablet 1 TABLET PO (08:12)
[2024-11-10] MEDS: Senna/Docusate Sodium 1 Tablet PO (08:12)
[2024-11-10] MEDS: busPIRone 15 MG TABLET PO ×2 (08:12→20:47)
[2024-11-10 08:13] VITALS: PULSE 72
[2024-11-10] MEDS: Metoprolol Tartrate 25 MG Tablet 12.5 MG PO ×2 (08:13→20:47)
[2024-11-10] MEDS: Menthol/Lanolin/Calamine/Znox 113 GM Tube 1 APPLIC TOPICAL ×2 (08:13→20:55)
[2024-11-10 10:16] VITALS: BP 117/50; PULSE 72; RESP 16; TEMP 36.3; O2SAT 99
[2024-11-10] MEDS: Ferrous Sulfate 325 MG Tablet PO ×2 (12:46→16:33)
[2024-11-10 16:30] LABS: Bedside Glucose 168 mg/dL (74-106)
[2024-11-10] MEDS: Tamsulosin HCl 0.4 MG Capsule 0.8 MG PO (16:33)
[2024-11-10 20:47] VITALS: BP 144/63; PULSE 75
[2024-11-10] MEDS: Atorvastatin Calcium 40 MG Tablet PO (20:47)
[2024-11-10] MEDS: Mirtazapine 30 MG Tablet PO (20:48)
[2024-11-10] MEDS: clonazePAM 0.5 MG Tablet PO (21:46)
[2024-11-11 06:20] VITALS: BP 128/58; PULSE 68; RESP 16
[2024-11-11] MEDS: Furosemide 40 MG Tablet PO ×2 (06:27→13:37)
[2024-11-11 06:45] LABS: Bedside Glucose 160 mg/dL (74-106)
--- NOTE | 2024-11-11 06:55 | NURSING ---
Hematuria continues, tea colored at this time, small clots observed in espitia tube, espitia patent draining urine via gravity, No espitia occlusion, No prn espitia flush required this shift. Eliquis remains on hold. Patient denies feeling of urine retention. No distress observed or reported. Call light in reach.
[2024-11-11] MEDS: Multivitamins,Ther W-Minerals Tablet 1 TABLET PO (08:18)
[2024-11-11] MEDS: busPIRone 15 MG TABLET PO ×2 (08:19→20:00)
[2024-11-11] MEDS: Menthol/Lanolin/Calamine/Znox 113 GM Tube 1 APPLIC TOPICAL ×3 (08:20→20:01)
[2024-11-11 08:21] VITALS: BP 130/56; PULSE 76
[2024-11-11] MEDS: Metoprolol Tartrate 25 MG Tablet 12.5 MG PO ×2 (08:21→20:02)
[2024-11-11] MEDS: Finasteride 5 MG Tablet PO (08:22)
[2024-11-11] MEDS: Senna/Docusate Sodium 1 Tablet PO (08:22)
[2024-11-11 08:26] VITALS: BP 130/56; PULSE 76; O2SAT 97
--- NOTE | 2024-11-11 10:29 | NURSING ---
PT URINE BLOOD TINGED WITH CLOTS. FLUSHED BRADY CATH WITH 40CC. WILL CONTINUE TO MONITOR.
[2024-11-11 11:42] VITALS: RESP 16; TEMP 35.8
[2024-11-11] MEDS: Ferrous Sulfate 325 MG Tablet PO ×2 (11:56→16:55)
--- NOTE | 2024-11-11 13:43 | NURSING ---
PT HAS A HEART MONITOR. COMPANY CALLED DUE TO PT ONLY HAS 1 AND WILL NEED TO BE CHARGED AT SOME POINT. COMPANY STATED IT IS OK TO BE OFF FOR A FEW HOURS TO RECHARGE AND THEN PLACED BACK ON. RN AWARE
[2024-11-11 14:00] VITALS: PULSE 75; RESP 97; O2SAT 97
[2024-11-11 16:49] LABS: Bedside Glucose 120 mg/dL (74-106)
[2024-11-11] MEDS: Tamsulosin HCl 0.4 MG Capsule 0.8 MG PO (16:55)
--- NOTE | 2024-11-11 16:59 | NURSING ---
URINE CULTURE BACK, NEW ORDER FOR DOXYCYCLINE TILL 11/21/24 DUE TO STAPHYLOCOCCUS AUREUS. PT AWARE
--- NOTE | 2024-11-11 17:03 | PN_ITS ---
Subjective Subjective Afebrile VSS - Maintaining appropriate oxygen saturation on RA Oral intake - FOOD good FLUIDS poor but, BUN and creatinine are stable so intake may not be accurate. Discussed with nursing - no problems that need addressed Reviewed the THERAPY notes Medication list reviewed. Doxepin was discontinued on 11/09/2024 due to urine retention. Apixaban was placed on hold 11/09/2024 due to gross hematuria. Tells me that he is sleeping well at night. Doxepin was discontinued due to the urine retention but, he continues to sleep well. He denies suprapubic pain. Urine in the Webster bag when I am examining him is pale yellow and clear. He did have some hematuria this morning and the nurse did flushes. Denies night sweat send shaking chills. Objective Data Objective Data Vital Signs: Vital Signs Temp Pulse Resp BP Pulse Ox O2 Del Method 96.5 F L 75 97 H 130/56 H 97 Room Air 11/11/24 11:42 11/11/24 14:00 11/11/24 14:00 11/11/24 08:26 11/11/24 14:00 11/11/24 14:00 Oxygen Delivery Method Room Air Weight: 177 lb 14.4 oz Body Mass Index (BMI) 26.9 Intake & Output: Intake and Output for Last 24 Hours 11/09/24 11/10/24 11/11/24 23:59 23:59 23:59 Intake Total 600 / 600 720 / 720 120 / 120 Output Total 0 / 0 3075 / 3075 2350 / 2350 Balance -1450 / -1450 -2355 / -2355 -2230 / -2230 Lab / Micro Data 11/10/24 05:32 11/08/24 05:25 Labs: Laboratory Results - last 24 hr 11/11/24 06:03: POC Glucose 160 H 11/11/24 16:17: POC Glucose 120 H Micro: Microbiology 11/09/24 10:00 Urine Catheter - Webster Urine Culture - Final Staphylococcus aureus 11/04/24 10:25 Nasal Secretion SARS-CoV-2 Antigen (Rapid) - Final Physical Exam Const alert, oriented x3 and no apparent distress Constitutional Narrative: Appropriate. Very pleasant General Appearance: cooperative Resp normal respiratory effort and clear to auscultation bilaterally Effort and Inspection: Negative for tachypneic or labored Cardio regular rate, regular rhythm and no gallops Rate: Negative for bradycardia or tachycardic GI normal to inspection, nondistended, normoactive bowel sounds and soft to palpation GI Narrative: No guarding with palpation. no CVA tenderness Narrative: No pain with palpation of the suprapubic area. Denies nausea. Extremity no calf tenderness General Extremity: Negative for edema Skin Rashes: no rashes Assessment & Plan Assessment/Plan (1) Gross hematuria: (2) Webster catheter present: (3) BPH (benign prostatic hyperplasia): QUALIFIERS: Lower urinary tract symptom presence: symptoms present Lower urinary tract symptom detail: incomplete bladder emptying Qualified Code(s): N40.1 - Benign prostatic hyperplasia with lower urinary tract symptoms; R39.14 - Feeling of incomplete bladder emptying (4) Urinary retention: (5) Paroxysmal atrial fibrillation: (6) Anticoagulated: (7) Normochromic normocytic anemia: (8) Catheter-associated urinary tract infection: QUALIFIERS: Indwelling urinary catheter type: indwelling urethral catheter Encounter type: initial encounter Qualified Code(s): T83.511A - Infection and inflammatory reaction due to indwelling urethral catheter, initial encounter; N39.0 - Urinary tract infection, site not specified (9) Hematuria: QUALIFIERS: Hematuria type: gross Qualified Code(s): R31.0 - Gross hematuria PLAN: Plan 1. Continue therapy 2. DC Webster catheter on 11/14/24 for a voiding trial since he is now off doxepin. 3. Start doxycycline 100 mg p.o. twice daily x 10 days for MSSA urinary tract infection 4. Restart apixaban 5 mg twice daily on ....would like to wait until he has had 5 -6 doses of Doxy Charges/Coding Visit Charges Inpatient E&M: 77230 [facility] L1
[2024-11-11] MEDS: Potassium Chloride Oral Tablet 20 MEQ PO (17:31)
[2024-11-11] MEDS: Mirtazapine 30 MG Tablet PO (20:00)
[2024-11-11] MEDS: Doxycycline 100 MG CAPSULE PO (20:00)
[2024-11-11] MEDS: Atorvastatin Calcium 40 MG Tablet PO (20:01)
[2024-11-11 20:02] VITALS: PULSE 73
[2024-11-11] MEDS: clonazePAM 0.5 MG Tablet PO (20:04)
[2024-11-12] MEDS: Furosemide 40 MG Tablet PO ×2 (05:38→13:36)
[2024-11-12 06:25] LABS: Bedside Glucose 157 mg/dL (74-106)
[2024-11-12] MEDS: Potassium Chloride Oral Tablet 20 MEQ PO (08:18)
[2024-11-12] MEDS: Multivitamins,Ther W-Minerals Tablet 1 TABLET PO (08:19)
[2024-11-12] MEDS: busPIRone 15 MG TABLET PO ×2 (08:20→20:27)
[2024-11-12] MEDS: Menthol/Lanolin/Calamine/Znox 113 GM Tube 1 APPLIC TOPICAL ×2 (08:20→20:27)
[2024-11-12 08:21] VITALS: BP 149/63; PULSE 73
[2024-11-12] MEDS: Doxycycline 100 MG CAPSULE PO ×2 (08:21→20:28)
[2024-11-12] MEDS: Metoprolol Tartrate 25 MG Tablet 12.5 MG PO ×2 (08:21→20:27)
[2024-11-12] MEDS: Finasteride 5 MG Tablet PO (08:22)
[2024-11-12] MEDS: Senna/Docusate Sodium 1 Tablet PO (08:22)
[2024-11-12 08:33] VITALS: BP 149/63; PULSE 73; O2SAT 98
[2024-11-12 10:16] VITALS: BMI 27.3
[2024-11-12 10:30] VITALS: PULSE 71; RESP 18; O2SAT 97
[2024-11-12] MEDS: Ferrous Sulfate 325 MG Tablet PO ×2 (11:44→16:15)
--- NOTE | 2024-11-12 13:57 | MDS.RN ---
Information for the MDS was obtained from review of the clinical record, interview of resident, staff, and direct observation of resident?s care.
[2024-11-12] MEDS: Tamsulosin HCl 0.4 MG Capsule 0.8 MG PO (16:16)
[2024-11-12 16:54] LABS: Bedside Glucose 166 mg/dL (74-106)
[2024-11-12 20:27] VITALS: PULSE 75
[2024-11-12] MEDS: Mirtazapine 30 MG Tablet PO (20:28)
[2024-11-12] MEDS: Atorvastatin Calcium 40 MG Tablet PO (20:28)
[2024-11-12] MEDS: clonazePAM 0.5 MG Tablet PO (20:30)
[2024-11-13] MEDS: Furosemide 40 MG Tablet PO ×2 (05:40→13:39)
[2024-11-13 06:13] LABS: Bedside Glucose 151 mg/dL (74-106)
[2024-11-13 08:56] VITALS: BP 125/51; PULSE 78; RESP 16; TEMP 36.8; O2SAT 99
[2024-11-13] MEDS: Potassium Chloride Oral Tablet 20 MEQ PO (08:57)
[2024-11-13] MEDS: Multivitamins,Ther W-Minerals Tablet 1 TABLET PO (08:57)
[2024-11-13 08:58] VITALS: PULSE 78
[2024-11-13] MEDS: Doxycycline 100 MG CAPSULE PO ×2 (08:58→20:22)
[2024-11-13] MEDS: Finasteride 5 MG Tablet PO (08:58)
[2024-11-13] MEDS: busPIRone 15 MG TABLET PO ×2 (08:58→20:21)
[2024-11-13] MEDS: Senna/Docusate Sodium 1 Tablet PO (08:58)
[2024-11-13] MEDS: Metoprolol Tartrate 25 MG Tablet 12.5 MG PO ×2 (08:58→20:21)
[2024-11-13] MEDS: Menthol/Lanolin/Calamine/Znox 113 GM Tube 1 APPLIC TOPICAL ×2 (09:01→20:23)
[2024-11-13] MEDS: Ferrous Sulfate 325 MG Tablet PO ×2 (11:29→16:28)
[2024-11-13] MEDS: Tamsulosin HCl 0.4 MG Capsule 0.8 MG PO (16:29)
[2024-11-13 17:35] LABS: Bedside Glucose 143 mg/dL (74-106)
[2024-11-13 20:00] VITALS: PULSE 75; RESP 16; O2SAT 95
[2024-11-13 20:20] VITALS: BP 143/56; PULSE 75; RESP 16; O2SAT 95
[2024-11-13] MEDS: clonazePAM 0.5 MG Tablet PO (20:20)
[2024-11-13 20:21] VITALS: BP 143/76; PULSE 75
[2024-11-13] MEDS: Atorvastatin Calcium 40 MG Tablet PO (20:22)
[2024-11-13] MEDS: Mirtazapine 30 MG Tablet PO (20:23)
[2024-11-14] MEDS: Furosemide 40 MG Tablet PO ×2 (06:09→12:58)
[2024-11-14 06:12] LABS: Bedside Glucose 150 mg/dL (74-106)
--- NOTE | 2024-11-14 06:32 | NURSING ---
Hematuria has resolved, no blood clots observed, urine clear/yellow. Webster removed per order, patient tolerated well, educated on bladder scans and voiding trial. Eliquis to resume this date. No distress observed or reported. Call light in reach
[2024-11-14 06:34] VITALS: PULSE 70; RESP 18; O2SAT 96
[2024-11-14] MEDS: Multivitamins,Ther W-Minerals Tablet 1 TABLET PO (09:43)
[2024-11-14] MEDS: Potassium Chloride Oral Tablet 20 MEQ PO (09:43)
[2024-11-14] MEDS: busPIRone 15 MG TABLET PO ×2 (09:44→21:42)
[2024-11-14] MEDS: Doxycycline 100 MG CAPSULE PO ×2 (09:45→21:43)
[2024-11-14] MEDS: Menthol/Lanolin/Calamine/Znox 113 GM Tube 1 APPLIC TOPICAL ×2 (09:45→21:43)
[2024-11-14 09:46] VITALS: BP 127/60; PULSE 74
[2024-11-14] MEDS: Metoprolol Tartrate 25 MG Tablet 12.5 MG PO ×2 (09:46→21:44)
[2024-11-14] MEDS: Finasteride 5 MG Tablet PO (09:46)
[2024-11-14] MEDS: APIXABAN 5 MG TABLET PO ×2 (09:46→21:43)
[2024-11-14] MEDS: Senna/Docusate Sodium 1 Tablet PO (09:47)
[2024-11-14 09:50] VITALS: BP 127/60; PULSE 74; RESP 18; O2SAT 96
[2024-11-14] MEDS: Ferrous Sulfate 325 MG Tablet PO ×2 (11:19→16:57)
[2024-11-14 11:40] VITALS: TEMP 36.3
--- NOTE | 2024-11-14 13:00 | NURSING ---
BRADY WAS REMOVED EARLY THIS MORNING BY LEAN ENGINEER. PT VOIDING WELL, URINE YELLOW AND CLEAR. BLADDER SCANNED FOR 73 CC AT 1300. CONTINUE VOIDING TRAILS.
[2024-11-14 16:49] LABS: Bedside Glucose 127 mg/dL (74-106)
[2024-11-14] MEDS: Tamsulosin HCl 0.4 MG Capsule 0.8 MG PO (16:56)
[2024-11-14 21:33] VITALS: BP 152/75; PULSE 72
[2024-11-14 21:44] VITALS: BP 152/75; PULSE 72
[2024-11-14] MEDS: Atorvastatin Calcium 40 MG Tablet PO (21:44)
[2024-11-14] MEDS: Mirtazapine 30 MG Tablet PO (21:46)
[2024-11-14] MEDS: clonazePAM 0.5 MG Tablet PO (21:49)
[2024-11-15 05:44] VITALS: BP 145/61; PULSE 65
[2024-11-15] MEDS: Furosemide 40 MG Tablet PO ×2 (05:47→13:30)
[2024-11-15 05:59] LABS: Absolute Lymphocyte Count 1.61 X10^3/uL (0.83-4.51); Absolute Neutrophil Count 3.3 X10^3/uL (2.0-7.7); Basophil# 0.04 X10^3/uL; Basophil% 0.7 % (0-1); Eosinophil# 0.36 X10^3/uL; Eosinophils% 6.2 % (0-5); Hematocrit 29.2 % (40-54); Hemoglobin 9.2 g/dL (13.0-16.5); Lymphocyte # 1.61 X10^3/ul (0.83-4.51); Lymphocyte % 27.8 % (19-41); Mean Corp Hgb Conc 31.5 g/dL (32-36); Mean Corpuscular Volume 88.8 fL (80-94); Mean Platelet Vol. 10.5 fl (6.2-12.0); Monocyte# 0.49 X10^3/uL; Monocyte% 8.4 % (0-10); NRBC Flagged by Analyzer 0 % (0-5); Neutrophil # 3.27 X10^3/uL (2.7-7.7); Neutrophil % 56.4 % (47-70); Platelet Count 181 K/mm3 (150-450); RBC Distribution Width CV 15.8 % (11.6-14.6); RBC Distribution Width SD 50.7 fl (35.1-43.9); Red Blood Count 3.29 M/mm3 (4.6-6.2); White Blood Count 5.8 K/mm3 (4.4-11.0)
[2024-11-15 06:22] LABS: Anion Gap 4 (5-15); BUN 22 mg/dL (7-18); BUN/Creat Ratio 21.8 RATIO (10-20); Calcium,Total 9.1 mg/dL (8.5-10.1); Chloride 104 mmol/L (98-107); Creatinine, Serum 1.01 mg/dL (0.70-1.30); EST Glomerular Filtration Rate 74 mL/min (>60); Est Glom Filt Rate - Afr Amer 90 mL/min (>60); Estimated Creatinine Clearance 49.85 ml/min; Glucose 155 mg/dL (74-106); Potassium 3.7 mmol/L (3.5-5.1); Sodium Level 138 mmol/L (136-145)
[2024-11-15 06:27] LABS: Bedside Glucose 146 mg/dL (74-106)
[2024-11-15 09:00] VITALS: BP 106/54; PULSE 74; RESP 16; TEMP 36.5; O2SAT 97
[2024-11-15 09:32] VITALS: BP 106/54; PULSE 74
[2024-11-15] MEDS: Senna/Docusate Sodium 1 Tablet PO (09:32)
[2024-11-15] MEDS: Metoprolol Tartrate 25 MG Tablet 12.5 MG PO ×2 (09:32→22:12)
[2024-11-15] MEDS: Ferrous Sulfate 325 MG Tablet PO ×2 (09:32→17:14)
[2024-11-15] MEDS: APIXABAN 5 MG TABLET PO ×2 (09:32→22:12)
[2024-11-15] MEDS: Potassium Chloride Oral Tablet 20 MEQ PO (09:32)
[2024-11-15] MEDS: busPIRone 15 MG TABLET PO ×2 (09:33→22:11)
[2024-11-15] MEDS: Finasteride 5 MG Tablet PO (09:33)
[2024-11-15] MEDS: Doxycycline 100 MG CAPSULE PO ×2 (09:33→22:11)
[2024-11-15] MEDS: Multivitamins,Ther W-Minerals Tablet 1 TABLET PO (09:33)
[2024-11-15] MEDS: Menthol/Lanolin/Calamine/Znox 113 GM Tube 1 APPLIC TOPICAL ×2 (09:33→22:11)
[2024-11-15 11:05] VITALS: PULSE 74; RESP 16; O2SAT 97
--- NOTE | 2024-11-15 15:00 | NURSING ---
Patient bladder scanned after lunch, noted 96ml residual. Continue with voiding trials.
[2024-11-15] MEDS: Tamsulosin HCl 0.4 MG Capsule 0.8 MG PO (17:14)
[2024-11-15 17:27] LABS: Bedside Glucose 132 mg/dL (74-106)
[2024-11-15 22:08] VITALS: BP 136/65; PULSE 70
[2024-11-15 22:12] VITALS: BP 136/65; PULSE 70
[2024-11-15] MEDS: Atorvastatin Calcium 40 MG Tablet PO (22:12)
[2024-11-15] MEDS: Mirtazapine 30 MG Tablet PO (22:15)
[2024-11-15] MEDS: clonazePAM 0.5 MG Tablet PO (22:17)
[2024-11-16 05:33] VITALS: BP 156/67; PULSE 68
[2024-11-16] MEDS: Furosemide 40 MG Tablet PO ×2 (05:36→13:41)
[2024-11-16 06:27] VITALS: PULSE 62; RESP 16; O2SAT 95
[2024-11-16 06:34] LABS: Bedside Glucose 142 mg/dL (74-106)
[2024-11-16 09:00] VITALS: BP 138/54; PULSE 72; RESP 16; TEMP 36.5; O2SAT 99
[2024-11-16] MEDS: Multivitamins,Ther W-Minerals Tablet 1 TABLET PO (09:17)
[2024-11-16] MEDS: Potassium Chloride Oral Tablet 20 MEQ PO (09:17)
[2024-11-16] MEDS: busPIRone 15 MG TABLET PO ×2 (09:17→22:34)
[2024-11-16 09:18] VITALS: BP 138/54; PULSE 72
[2024-11-16] MEDS: Senna/Docusate Sodium 1 Tablet PO (09:18)
[2024-11-16] MEDS: Finasteride 5 MG Tablet PO (09:18)
[2024-11-16] MEDS: Menthol/Lanolin/Calamine/Znox 113 GM Tube 1 APPLIC TOPICAL ×2 (09:18→22:37)
[2024-11-16] MEDS: APIXABAN 5 MG TABLET PO ×2 (09:18→22:35)
[2024-11-16] MEDS: Doxycycline 100 MG CAPSULE PO ×2 (09:18→22:35)
[2024-11-16] MEDS: Metoprolol Tartrate 25 MG Tablet 12.5 MG PO ×2 (09:18→22:42)
[2024-11-16] MEDS: Ferrous Sulfate 325 MG Tablet PO ×2 (12:07→17:12)
[2024-11-16 16:43] LABS: Bedside Glucose 98 mg/dL (74-106)
[2024-11-16] MEDS: Tamsulosin HCl 0.4 MG Capsule 0.8 MG PO (17:12)
--- NOTE | 2024-11-16 18:41 | NURSING ---
Patient bladder scanned per order at 2pm; noted 37ml residual. Continue voiding trials.
[2024-11-16] MEDS: Atorvastatin Calcium 40 MG Tablet PO (22:35)
[2024-11-16] MEDS: Oseltamivir Phosphate 30 MG Capsule PO (22:36)
[2024-11-16] MEDS: Mirtazapine 30 MG Tablet PO (22:36)
[2024-11-16 22:42] VITALS: BP 144/59; PULSE 62
[2024-11-16] MEDS: clonazePAM 0.5 MG Tablet PO (22:42)
[2024-11-17 05:50] VITALS: BP 152/74; PULSE 65; RESP 16; TEMP 36.4; O2SAT 98
[2024-11-17] MEDS: Furosemide 40 MG Tablet PO ×2 (05:52→13:05)
[2024-11-17 06:08] LABS: Bedside Glucose 140 mg/dL (74-106)
[2024-11-17 08:18] VITALS: BP 137/64; PULSE 74; RESP 18; TEMP 36.8; O2SAT 98
[2024-11-17] MEDS: Potassium Chloride Oral Tablet 20 MEQ PO (08:19)
[2024-11-17] MEDS: Multivitamins,Ther W-Minerals Tablet 1 TABLET PO (08:20)
[2024-11-17] MEDS: busPIRone 15 MG TABLET PO ×2 (08:21→20:20)
[2024-11-17 08:22] VITALS: PULSE 74
[2024-11-17] MEDS: Doxycycline 100 MG CAPSULE PO ×2 (08:22→20:20)
[2024-11-17] MEDS: APIXABAN 5 MG TABLET PO ×2 (08:22→20:20)
[2024-11-17] MEDS: Senna/Docusate Sodium 1 Tablet PO (08:22)
[2024-11-17] MEDS: Metoprolol Tartrate 25 MG Tablet 12.5 MG PO ×2 (08:22→20:25)
[2024-11-17] MEDS: Finasteride 5 MG Tablet PO (08:22)
[2024-11-17] MEDS: Menthol/Lanolin/Calamine/Znox 113 GM Tube 1 APPLIC TOPICAL ×2 (08:24→20:21)
[2024-11-17] MEDS: Ferrous Sulfate 325 MG Tablet PO ×2 (13:05→16:58)
[2024-11-17 16:55] LABS: Bedside Glucose 117 mg/dL (74-106)
[2024-11-17] MEDS: Tamsulosin HCl 0.4 MG Capsule 0.8 MG PO (16:58)
[2024-11-17 20:14] VITALS: PULSE 72; O2SAT 98
[2024-11-17] MEDS: Oseltamivir Phosphate 30 MG Capsule PO (20:20)
[2024-11-17] MEDS: Atorvastatin Calcium 40 MG Tablet PO (20:20)
[2024-11-17] MEDS: Mirtazapine 30 MG Tablet PO (20:20)
[2024-11-17 20:25] VITALS: BP 136/55; PULSE 69
[2024-11-17] MEDS: clonazePAM 0.5 MG Tablet PO (20:25)
[2024-11-18 05:30] VITALS: BP 143/64; PULSE 61
[2024-11-18] MEDS: Furosemide 40 MG Tablet PO ×2 (05:31→14:58)
[2024-11-18 06:09] LABS: Bedside Glucose 150 mg/dL (74-106)
[2024-11-18 06:54] VITALS: PULSE 67; RESP 17; O2SAT 97
[2024-11-18 08:37] VITALS: BP 113/53; PULSE 75
[2024-11-18] MEDS: Senna/Docusate Sodium 1 Tablet PO (08:37)
[2024-11-18] MEDS: Doxycycline 100 MG CAPSULE PO ×2 (08:37→20:20)
[2024-11-18] MEDS: Metoprolol Tartrate 25 MG Tablet 12.5 MG PO ×2 (08:37→20:24)
[2024-11-18] MEDS: Multivitamins,Ther W-Minerals Tablet 1 TABLET PO (08:37)
[2024-11-18] MEDS: Menthol/Lanolin/Calamine/Znox 113 GM Tube 1 APPLIC TOPICAL ×2 (08:38→20:21)
[2024-11-18] MEDS: APIXABAN 5 MG TABLET PO ×2 (08:38→20:22)
[2024-11-18] MEDS: Potassium Chloride Oral Tablet 20 MEQ PO (08:38)
[2024-11-18] MEDS: busPIRone 15 MG TABLET PO ×2 (08:38→20:20)
[2024-11-18] MEDS: Finasteride 5 MG Tablet PO (08:38)
[2024-11-18] MEDS: Ferrous Sulfate 325 MG Tablet PO ×2 (12:16→17:34)
[2024-11-18 14:31] VITALS: BP 135/54; PULSE 65; RESP 16; TEMP 36.4; O2SAT 100
[2024-11-18 16:46] LABS: Bedside Glucose 120 mg/dL (74-106)
[2024-11-18] MEDS: Tamsulosin HCl 0.4 MG Capsule 0.8 MG PO (17:34)
[2024-11-18] MEDS: Hydrocortisone 2.5% Crm 1 APPLIC TOPICAL (18:09)
[2024-11-18 20:18] VITALS: BP 133/59; PULSE 66
[2024-11-18] MEDS: Atorvastatin Calcium 40 MG Tablet PO (20:22)
[2024-11-18] MEDS: Mirtazapine 30 MG Tablet PO (20:23)
[2024-11-18 20:24] VITALS: BP 133/59; PULSE 66
[2024-11-18] MEDS: Oseltamivir Phosphate 30 MG Capsule PO (20:28)
[2024-11-18] MEDS: clonazePAM 0.5 MG Tablet PO (20:28)
[2024-11-19] VITALS (7 sets, daily range): BP systolic 122–139; BP diastolic 56–63; PULSE 60–80; RESP 18; TEMP 36.4; O2SAT 98–99; BMI 27.3
[2024-11-19] MEDS: Furosemide 40 MG Tablet PO ×2 (05:01→13:33)
[2024-11-19 06:33] LABS: Bedside Glucose 139 mg/dL (74-106)
[2024-11-19] MEDS: Hydrocortisone 2.5% Crm 1 APPLIC TOPICAL ×2 (09:17→13:33)
[2024-11-19] MEDS: Potassium Chloride Oral Tablet 20 MEQ PO (09:18)
[2024-11-19] MEDS: busPIRone 15 MG TABLET PO ×2 (09:19→20:25)
[2024-11-19] MEDS: Multivitamins,Ther W-Minerals Tablet 1 TABLET PO (09:19)
[2024-11-19] MEDS: Menthol/Lanolin/Calamine/Znox 113 GM Tube 1 APPLIC TOPICAL ×2 (09:19→20:26)
[2024-11-19] MEDS: APIXABAN 5 MG TABLET PO ×2 (09:20→20:27)
[2024-11-19] MEDS: Metoprolol Tartrate 25 MG Tablet 12.5 MG PO ×2 (09:20→20:29)
[2024-11-19] MEDS: Doxycycline 100 MG CAPSULE PO ×2 (09:20→20:27)
[2024-11-19] MEDS: Senna/Docusate Sodium 1 Tablet PO (09:21)
[2024-11-19] MEDS: Finasteride 5 MG Tablet PO (09:21)
--- NOTE | 2024-11-19 10:40 | CASEMGMT ---
Addendum entered by Sridevi Mares 11/20/24 11:26: DC paperwork and advanced directives sent to [facility] Addendum entered by Sridevi Mares 11/19/24 12:47: PASRR completed Original Note: Social Work SW received call from dtr inquiring about setting DC date for pt. IDT agreeable to setting date. SW inquired to [facility] about preference for date. [facility] prefers /, as does dtr. SW updated dtr to DC date 11/22. Dtr can transport. SW spoke with pt and pt agreeable. Updated clinicals sent to [facility]. Plan: DC 11/22 to [facility], intermediate, long-term, part B therapies, private pay Sridevi JACOBW
[2024-11-19] MEDS: Ferrous Sulfate 325 MG Tablet PO ×2 (11:52→17:45)
[2024-11-19 17:39] LABS: Bedside Glucose 95 mg/dL (74-106)
[2024-11-19] MEDS: Tamsulosin HCl 0.4 MG Capsule 0.8 MG PO (17:45)
--- NOTE | 2024-11-19 19:56 | PCM.DC.SUM ---
Providers Date of Admission: 11/01/24 Primary Care Physician: Dr. Jeremi Morel MD Reason For Visit: PLEURAL EFFUSION Diagnosis Discharge Diagnosis (1) Gross hematuria: Status: Acute Code(s): R31.0 - Gross hematuria (2) Espitia catheter present: Status: Acute Code(s): Z97.8 - Presence of other specified devices (3) BPH (benign prostatic hyperplasia): Status: Acute Code(s): N40.0 - Benign prostatic hyperplasia without lower urinary tract symptoms Qualifiers: Lower urinary tract symptom presence: symptoms present Lower urinary tract symptom detail: incomplete bladder emptying Qualified Code(s): N40.1 - Benign prostatic hyperplasia with lower urinary tract symptoms; R39.14 - Feeling of incomplete bladder emptying (4) Urinary retention: Status: Acute Code(s): R33.9 - Retention of urine, unspecified (5) Paroxysmal atrial fibrillation: Status: Chronic Code(s): I48.0 - Paroxysmal atrial fibrillation (6) Anticoagulated: Status: Acute Code(s): Z79.01 - prison (current) use of anticoagulants (7) Normochromic normocytic anemia: Status: Acute Code(s): D64.9 - Anemia, unspecified (8) Catheter-associated urinary tract infection: Status: Acute Code(s): T83.511A - Infection and inflammatory reaction due to indwelling urethral catheter, initial encounter; N39.0 - Urinary tract infection, site not specified Qualifiers: Indwelling urinary catheter type: indwelling urethral catheter Encounter type: initial encounter Qualified Code(s): T83.511A - Infection and inflammatory reaction due to indwelling urethral catheter, initial encounter; N39.0 - Urinary tract infection, site not specified (9) Hematuria: Status: Acute Code(s): R31.9 - Hematuria, unspecified Qualifiers: Hematuria type: gross Qualified Code(s): R31.0 - Gross hematuria Plan 89 year old male with below past medical history hospitalized for acute respiratory failure with hypoxia 2/2 bilateral loculated pleural effusions requiring chest tube, complicated by hematuria, bph, urinary retention, admitted to TCU with debility, here for rehabilitation, strengthening, prior to discharge to LTC, resident daughter looking for place. Debility - PT/OT. Pain - Tylenol 1000mg q6 prn pain (1-10). Bowel - senna/colace 1 tablet po bid. Adult immunization - Administer pneumonia vaccine, covid vaccine, flu vaccine as appropriate. DVT prophylaxis - on Eliquis. Atrial fibrillation - Metoprolol 12.5mg bid, Eliquis 5mg bid. Hyperlipidemia - Atorvastatin 40mg qhs. Anxiety - Buspar 15mg bid, Clonazepam 0.5mg bid prn, stable chronic medical terminologist use, GDR not recommended. Insomnia - Doxepin 75mg qhs, stable chronic medical terminologist use, GDR not recommended. Iron deficiency anemia - Ferrous sulfate 325mg po bid. BPH - Finasteride 5mg daily, Tamsulosin 0.8mg daily, indwelling espitia catheter, voiding trials in 3 days. Chronic HFpEF - Metoprolol 12.5mg bid, Furosemide 40mg bidlx. Depression/Appetite loss - Mirtazapine 30mg qhs, stable chronic nursing home use, GDR not recommended. Nutrition - MVI 1 tablet daily. Medications at Discharge Home Medications vitamins A,C,E-xwrq-bleqav 4,296 mcg-226 mg-90 mg capsule 1 cap PO BID EYE HEALTH 03/07/19 xevrnnzx-qv-mlboy 300 mcg-K 60 mcg-lycop 600 mcg-lutein 300 mcg tablet 1 tab PO DAILY supplement 10/25/19 mirtazapine 7.5 mg tablet 30 mg PO QHS sleep 02/14/23 buspirone 15 mg tablet 15 mg PO BID mood 11/25/23 tamsulosin 0.4 mg capsule 0.8 mg PO DAILY@1730 urinary retention 11/25/23 finasteride 5 mg tablet (Proscar) 5 mg PO DAILY prostate #30 tabs 11/27/23 furosemide 40 mg tablet (Lasix) 40 mg PO BID water pill #180 tabs 02/20/24 metoprolol tartrate 25 mg tablet 12.5 mg (1/2 x 25 mg) PO BID high blood pressure #90 tabs 02/20/24 atorvastatin 40 mg tablet 40 mg PO QHS antihyperlipidemics 10/11/24 ferrous sulfate 325 mg (65 mg iron) tablet (FeroSul) 325 mg PO BID supplement 11/01/24 acetaminophen 500 mg tablet 1,000 mg (2 x 500 mg) PO Q6H PRN pain 1-10 #0 tabs 11/19/24 apixaban 5 mg tablet (Eliquis) 5 mg PO BID #0 tabs 11/19/24 clonazepam 0.5 mg tablet 0.5 mg PO BID PRN anxiety 3 days #6 tabs 11/19/24 clonazepam 0.5 mg tablet 0.5 mg PO QHS 3 days #3 tabs 11/19/24 hydrocortisone 2.5 % topical cream 1 applic topical BID PRN PRN RASH/TOPICAL IRRITATION #0 grams 11/19/24 menthol 0.44 %-zinc oxide 20.6 % topical ointment (Calmoseptine) 1 applic topical BID #0 grams 11/19/24 potassium chloride 20 mEq tablet,extended release(part/cryst) 20 meq PO DAILYCM #0 tabs 11/19/24 sennosides 8.6 mg-docusate sodium 50 mg tablet (Stimulant Laxative Plus) 1 tab PO DAILY #0 tabs 11/19/24 Hospital Course Operations None Procedures - (See below.) Summary of Care Provided Minutes Spent on Discharge: 35 Hospital Course: 89 year old male with below past medical history hospitalized for acute respiratory failure with hypoxia 2/2 bilateral loculated pleural effusions requiring chest tube, complicated by hematuria, bph, urinary retention, admitted to TCU with debility, here for rehabilitation, strengthening, prior to discharge to LTC, resident daughter looking for place. [facility] long[facility], part B therapies, private pay. Physical Exam Const alert General Appearance: cooperative HEENT normocephalic Eyes PERRL and EOMs intact bilaterally Neck supple, no JVD and no carotid bruits Resp normal respiratory effort, normal air movement and clear to auscultation bilaterally Cardio regular rate and regular rhythm GI normal to inspection, nondistended, normoactive bowel sounds, non-tender and non-distended Extremity normal capillary refill General Extremity: Negative for edema Skin no rashes or lesions noted General Skin Exam: no breakdown Psych affect normal Appearance: appropriate Weight / BMI Weight Weight: 81.737 kg Body Mass Index (BMI) 27.3 ABG / Lab / Microbiology Data 11/15/24 05:14 11/15/24 05:14 Laboratory: Laboratory Results - last 24 hr 11/19/24 05:54: POC Glucose 139 H 11/19/24 17:17: POC Glucose 95 Microbiology: Microbiology 11/09/24 10:00 Urine Catheter - Espitia Urine Culture - Final Staphylococcus aureus 11/04/24 10:25 Nasal Secretion SARS-CoV-2 Antigen (Rapid) - Final D/C Instructions Discharge Diet: No restrictions Discharge Activity: Return to Normal Activity, May Shower and Use Walker Weight Bearing Status: Weight bearing as tolerated Call your doctor if you observe: Fever of 101 or Higher, Inability to urinate, Inability to have a bowel movement, Shortness of breath, Dizziness, Fainting spells, Swelling in the ankles, Chest pain and Uncontrolled pain DC O2, CPAP, BIPAP Needs Home O2 Discharge instructions: No Additional Instructions: Discharge 11/22/[address] [facility], long-term, part B therapies, private pay. Meaningful Use Info Meaningful Use Meaningful Use Diagnoses (Choose all that apply): None applicable Ischemic Stroke Statin Dosing Therapy Reference: STATIN DOSE THERAPY REFERENCE: * Patients > 75 years receive moderate or high dose statin therapy. * Patients 75 years or YOUNGER should receive HIGH intensity statin dose unless contraindicated. You will be required to document reason for non-treatment if statin daily dose does not meet guidelines. HIGH DOSE STATIN THERAPY DAILY Atorvastatin > than or = to 40 mg Rosuvastatin > than or = to 20 mg Amlodipine + Atorvastatin > than or = to 2.5/40 mg Ezetimibe + Simvastatin 10/80 mg Simvastatin 80mg Discharge Plan Admission Admit Date/Time: 11/01/24 12:28 Primary Reason for Your Visit: Debility. Attending Provider: Scot Warren Chi Primary Care Provider: Jeremi Morel Instructions Additional Instructions / Restrictions: Discharge 11/22/[address] [facility], long-term, part B [facility], private pay. Discharge Orders/Prescriptions Prescriptions: New clonazepam 0.5 mg Tablet 0.5 mg PO QHS 3 Days Qty: 3 0RF clonazepam 0.5 mg Tablet 0.5 mg PO BID PRN (Reason: anxiety) 3 Days Qty: 6 0RF sennosides-docusate sodium [Stimulant Laxative Plus] 8.6-50 mg Tablet 1 tab PO DAILY Qty: 0 0RF acetaminophen 500 mg Tablet 1,000 mg PO Q6H PRN (Reason: pain 1-10) Qty: 0 0RF potassium chloride 20 mEq Tablet,Er Particles/Crystals 20 meq PO DAILYCM Qty: 0 0RF hydrocortisone 2.5 % Cream 1 applic topical BID PRN PRN (Reason: RASH/TOPICAL IRRITATION) Qty: 0 0RF Protocol: *Topical Application Instructions APPLICATION INSTRUCTIONS: Right hand. menthol-zinc oxide [Calmoseptine] 0.44-20.6 % Ointment 1 applic topical BID Qty: 0 0RF Protocol: *Topical Application Instructions APPLICATION INSTRUCTIONS: Apply to bilateral buttocks Eliquis 5 mg Tablet 5 mg PO BID Qty: 0 0RF Continued mirtazapine 7.5 mg tablet 30 mg PO QHS furosemide [Lasix] 40 mg tablet 40 mg PO BID Qty: 180 3RF metoprolol tartrate 25 mg tablet 12.5 mg PO BID Qty: 90 3RF vitamins A,C,C-ycqo-ctnczy 1 EACH capsule 1 cap PO BID dk-gfg-feiul-I3-ooqvqfi-umydpe 1 EACH tablet 1 tab PO DAILY buspirone 15 mg tablet 15 mg PO BID Patient Comments: TAKE 1 TABLET BY MOUTH TWICE DAILY tamsulosin 0.4 MG capsule 0.8 mg PO DAILY@1730 finasteride [Proscar] 5 mg tablet 5 mg PO DAILY Qty: 30 0RF Rx Instructions: take one daily for prostate atorvastatin 40 mg tablet 40 mg PO QHS ferrous sulfate [FeroSul] 325 mg (65 mg iron) tablet 325 mg PO BID Discontinued lisinopril 20 mg tablet 20 mg PO BID Qty: 180 3RF apixaban 2.5 mg tablet 2.5 mg PO BID Qty: 60 11RF amlodipine 10 mg tablet 10 mg PO DAILY Qty: 90 3RF clonazepam [Klonopin] 0.5 mg tablet 0.5 mg PO BID PRN (Reason: anxiety) Iron 65 mg PO BID doxepin 50 mg capsule 75 mg PO QHS Patient Comments: TAKE 1 CAPSULE BY MOUTH AT BEDTIME potassium chloride 10 mEq tablet extended release 20 meq PO DAILY Qty: 60 0RF azithromycin 500 mg tablet See Rx Instructions .ROUTE .COMPLEX Qty: 3 0RF Rx Instructions: For 500 mg dose pack: take 500 mg once daily for 3 days acetaminophen 325 mg tablet 650 mg PO Q6H PRN (Reason: pain) sennosides-docusate sodium [Senna with Docusate Sodium] 8.6-50 mg tablet 1 tab-cap PO BID Humalog Mix 50-50 KwikPen 100 unit/mL (50-50) insulin pen See Rx Instructions SC .COMPLEX Qty: 17.4 5RF Rx Instructions: 30 units subcutaneously AM; 28 units PM Referrals / Follow Up: Tylor Reyes MD [Med Staff - Active Staff] - (Will need made AFTER dc from TCU) Jeremi Morel MD [Primary Care Provider] - Disposition Disposition (needs filled in before D/C Order can be placed): NonSkilled NH/Intermed Care
--- NOTE | 2024-11-19 20:03 | TREXTCAR_ITS ---
Diet Diet Order/Speech Therapy: 11/01/24 14:52 Diet: Carbohydrate Controlled Dietary Modifications:: No Added Salt Diet Comments: cut meat into bite sized pieces - softer foods as able Routine Orders/Code Status Code Status: DNRCC-A (No intubation.) DC O2, CPAP, BIPAP needs Home O2 Discharge instructions: No Wound(s) Left Lateral Side, Old Drain Site: Wound Type: Surgical Incision Bottom Lip: Wound Type: Scab R Wrist: Wound Type: Scabbing L Antecubital: Wound Type: Scab R Albarado: Wound Type: Scabbing Therapies Weight Bearing: Weight bearing as tolerated Extremity Affected:: Bilateral Lower Physical Therapy: Eval and Treat Problem/Diagnosis (1) Gross hematuria: Status: Acute Code(s): R31.0 - Gross hematuria (2) Espitia catheter present: Status: Acute Code(s): Z97.8 - Presence of other specified devices (3) BPH (benign prostatic hyperplasia): Status: Acute Code(s): N40.0 - Benign prostatic hyperplasia without lower urinary tract symptoms (4) Urinary retention: Status: Acute Code(s): R33.9 - Retention of urine, unspecified (5) Paroxysmal atrial fibrillation: Status: Chronic Code(s): I48.0 - Paroxysmal atrial fibrillation (6) Anticoagulated: Status: Acute Code(s): Z79.01 - buttermaker helper (current) use of anticoagulants (7) Normochromic normocytic anemia: Status: Acute Code(s): D64.9 - Anemia, unspecified (8) Catheter-associated urinary tract infection: Status: Acute Code(s): T83.511A - Infection and inflammatory reaction due to indwelling urethral catheter, initial encounter; N39.0 - Urinary tract infection, site not specified Comment: Due to methicillin sensitive Staph aureus (9) Hematuria: Status: Acute Code(s): R31.9 - Hematuria, unspecified Plan 89 year old male with below past medical history hospitalized for acute respiratory failure with hypoxia 2/2 bilateral loculated pleural effusions requiring chest tube, complicated by hematuria, bph, urinary retention, admitted to TCU with debility, here for rehabilitation, strengthening, prior to discharge to LTC, resident daughter looking for place. * Debility - PT/OT. * Pain - Tylenol 1000mg q6 prn pain (1-10). * Bowel - senna/colace 1 tablet po bid. * Adult immunization - Administer pneumonia vaccine, covid vaccine, flu vaccine as appropriate. * DVT prophylaxis - on Eliquis. * Atrial fibrillation - Metoprolol 12.5mg bid, Eliquis 5mg bid. * Hyperlipidemia - Atorvastatin 40mg qhs. * Anxiety - Buspar 15mg bid, Clonazepam 0.5mg bid prn, stable chronic terminal make up operator use, GDR not recommended. * Insomnia - Doxepin 75mg qhs, stable chronic terminal make up operator use, GDR not recommended. * Iron deficiency anemia - Ferrous sulfate 325mg po bid. * BPH - Finasteride 5mg daily, Tamsulosin 0.8mg daily, indwelling espitia catheter, voiding trials in 3 days. * Chronic HFpEF - Metoprolol 12.5mg bid, Furosemide 40mg bidlx. * Depression/Appetite loss - Mirtazapine 30mg qhs, stable chronic terminal make up operator use, GDR not recommended. * Nutrition - MVI 1 tablet daily. Allergies/Procedures Done in Hospital Allergies No Known Allergies Allergy (Verified 10/11/24 12:24) Procedures: - (Chest tube placement.) Type of Care/Length of Stay Estimated LOS: More Than 30 Days Type of Care Needed: Intermediate Rehab Potential: Good Prognosis: Good Additional Orders/Day of Discharge Additional Orders: part B therapies Day of Discharge: 11/22/24 Dietary and Speech Recommendations Dietitian Recommendations/Changes: Continue consistent carbohydrate, no added salt diet, with meats cut into pieces. Continue to follow and monitor for changes in res nutritional status and make additional rec prn Discharge Plan Admission Admit Date/Time: 11/01/24 12:28 Primary Reason for Your Visit: Debility. Attending Provider: Scot Warren Chi Primary Care Provider: Jeremi Morel Instructions Additional Instructions / Restrictions: Discharge 11/22/2024 to the [facility], intermediate, long-term, part B therapies, private pay. Discharge Orders/Prescriptions Prescriptions: New clonazepam 0.5 mg Tablet 0.5 mg PO QHS 3 Days Qty: 3 0RF clonazepam 0.5 mg Tablet 0.5 mg PO BID PRN (Reason: anxiety) 3 Days Qty: 6 0RF sennosides-docusate sodium [Stimulant Laxative Plus] 8.6-50 mg Tablet 1 tab PO DAILY Qty: 0 0RF acetaminophen 500 mg Tablet 1,000 mg PO Q6H PRN (Reason: pain 1-10) Qty: 0 0RF potassium chloride 20 mEq Tablet,Er Particles/Crystals 20 meq PO DAILYCM Qty: 0 0RF hydrocortisone 2.5 % Cream 1 applic topical BID PRN PRN (Reason: RASH/TOPICAL IRRITATION) Qty: 0 0RF Protocol: *Topical Application Instructions APPLICATION INSTRUCTIONS: Right hand. menthol-zinc oxide [Calmoseptine] 0.44-20.6 % Ointment 1 applic topical BID Qty: 0 0RF Protocol: *Topical Application Instructions APPLICATION INSTRUCTIONS: Apply to bilateral buttocks Eliquis 5 mg Tablet 5 mg PO BID Qty: 0 0RF Continued mirtazapine 7.5 mg tablet 30 mg PO QHS furosemide [Lasix] 40 mg tablet 40 mg PO BID Qty: 180 3RF metoprolol tartrate 25 mg tablet 12.5 mg PO BID Qty: 90 3RF vitamins A,C,N-qpwf-ibtrnz 1 EACH capsule 1 cap PO BID [id number] 1 EACH tablet 1 tab PO DAILY buspirone 15 mg tablet 15 mg PO BID Patient Comments: TAKE 1 TABLET BY MOUTH TWICE DAILY tamsulosin 0.4 MG capsule 0.8 mg PO DAILY@1730 finasteride [Proscar] 5 mg tablet 5 mg PO DAILY Qty: 30 0RF Rx Instructions: take one daily for prostate atorvastatin 40 mg tablet 40 mg PO QHS ferrous sulfate [FeroSul] 325 mg (65 mg iron) tablet 325 mg PO BID Discontinued lisinopril 20 mg tablet 20 mg PO BID Qty: 180 3RF apixaban 2.5 mg tablet 2.5 mg PO BID Qty: 60 11RF amlodipine 10 mg tablet 10 mg PO DAILY Qty: 90 3RF clonazepam [Klonopin] 0.5 mg tablet 0.5 mg PO BID PRN (Reason: anxiety) Iron 65 mg PO BID doxepin 50 mg capsule 75 mg PO QHS Patient Comments: TAKE 1 CAPSULE BY MOUTH AT BEDTIME potassium chloride 10 mEq tablet extended release 20 meq PO DAILY Qty: 60 0RF azithromycin 500 mg tablet See Rx Instructions .ROUTE .COMPLEX Qty: 3 0RF Rx Instructions: For 500 mg dose pack: take 500 mg once daily for 3 days acetaminophen 325 mg tablet 650 mg PO Q6H PRN (Reason: pain) sennosides-docusate sodium [Senna with Docusate Sodium] 8.6-50 mg tablet 1 tab-cap PO BID Humalog Mix 50-50 KwikPen 100 unit/mL (50-50) insulin pen See Rx Instructions SC .COMPLEX Qty: 17.4 5RF Rx Instructions: 30 units subcutaneously AM; 28 units PM Referrals / Follow Up: Tylor Reyes MD [Med Staff - Active Staff] - (Will need made AFTER dc from TCU) Jeremi Morel MD [Primary Care Provider] - Disposition Disposition (needs filled in before D/C Order can be placed): NonSkilled NH/Intermed Care (3) BPH (benign prostatic hyperplasia) Qualifiers: Lower urinary tract symptom presence: symptoms present Lower urinary tract symptom detail: incomplete bladder emptying Qualified Code(s): N40.1 - Benign prostatic hyperplasia with lower urinary tract symptoms; R39.14 - Feeling of incomplete bladder emptying (8) Catheter-associated urinary tract infection Qualifiers: Indwelling urinary catheter type: indwelling urethral catheter Encounter type: initial encounter Qualified Code(s): T83.511A - Infection and inflammatory reaction due to indwelling urethral catheter, initial encounter; N39.0 - Urinary tract infection, site not specified (9) Hematuria Qualifiers: Hematuria type: gross Qualified Code(s): R31.0 - Gross hematuria
[2024-11-19] MEDS: Atorvastatin Calcium 40 MG Tablet PO (20:28)
[2024-11-19] MEDS: Mirtazapine 30 MG Tablet PO (20:28)
[2024-11-19] MEDS: Oseltamivir Phosphate 30 MG Capsule PO (20:35)
[2024-11-19] MEDS: clonazePAM 0.5 MG Tablet PO (20:35)
[2024-11-20] VITALS (7 sets, daily range): BP systolic 123–137; BP diastolic 51–64; PULSE 60–79; RESP 18; TEMP 36; O2SAT 95–100
[2024-11-20] MEDS: Furosemide 40 MG Tablet PO ×2 (05:32→13:13)
[2024-11-20 06:21] LABS: Bedside Glucose 136 mg/dL (74-106)
[2024-11-20] MEDS: Multivitamins,Ther W-Minerals Tablet 1 TABLET PO (08:31)
[2024-11-20] MEDS: Potassium Chloride Oral Tablet 20 MEQ PO (08:31)
[2024-11-20] MEDS: busPIRone 15 MG TABLET PO ×2 (08:32→21:01)
[2024-11-20] MEDS: Metoprolol Tartrate 25 MG Tablet 12.5 MG PO ×2 (08:33→21:04)
[2024-11-20] MEDS: Menthol/Lanolin/Calamine/Znox 113 GM Tube 1 APPLIC TOPICAL ×2 (08:33→21:02)
[2024-11-20] MEDS: Doxycycline 100 MG CAPSULE PO ×2 (08:33→21:02)
[2024-11-20] MEDS: APIXABAN 5 MG TABLET PO ×2 (08:33→21:02)
[2024-11-20] MEDS: Senna/Docusate Sodium 1 Tablet PO (08:34)
[2024-11-20] MEDS: Finasteride 5 MG Tablet PO (08:34)
[2024-11-20] MEDS: Ferrous Sulfate 325 MG Tablet PO ×2 (11:23→17:05)
[2024-11-20] MEDS: Hydrocortisone 2.5% Crm 1 APPLIC TOPICAL ×2 (13:12→21:05)
--- NOTE | 2024-11-20 13:25 | NURSING ---
HEART MONITOR STILL CHARGED AND WORKING.
--- NOTE | 2024-11-20 16:40 | CASEMGMT ---
Social Work SW completed BIMS () and PH-2 () for MDS assessment. Sridevi Mares [address] [employer] C[employer]IED [employer]ICIAN
[2024-11-20] MEDS: Tamsulosin HCl 0.4 MG Capsule 0.8 MG PO (17:05)
[2024-11-20 17:08] LABS: Bedside Glucose 120 mg/dL (74-106)
[2024-11-20] MEDS: Atorvastatin Calcium 40 MG Tablet PO (21:02)
[2024-11-20] MEDS: Oseltamivir Phosphate 30 MG Capsule PO (21:05)
[2024-11-20] MEDS: Mirtazapine 30 MG Tablet PO (21:05)
[2024-11-20] MEDS: clonazePAM 0.5 MG Tablet PO (21:07)
[2024-11-21 05:52] VITALS: BP 120/58; PULSE 62
[2024-11-21] MEDS: Furosemide 40 MG Tablet PO ×2 (05:54→13:04)
[2024-11-21 06:39] VITALS: PULSE 62; RESP 18; O2SAT 97
[2024-11-21 07:02] LABS: Bedside Glucose 83 mg/dL (74-106)
[2024-11-21 09:00] VITALS: BP 121/46; PULSE 77; RESP 16; TEMP 36.2; O2SAT 92
[2024-11-21] MEDS: Hydrocortisone 2.5% Crm 1 APPLIC TOPICAL ×2 (09:18→20:57)
[2024-11-21] MEDS: Potassium Chloride Oral Tablet 20 MEQ PO (09:19)
[2024-11-21] MEDS: Finasteride 5 MG Tablet PO (09:19)
[2024-11-21 09:20] VITALS: BP 121/46; PULSE 77
[2024-11-21] MEDS: APIXABAN 5 MG TABLET PO ×2 (09:20→20:56)
[2024-11-21] MEDS: Metoprolol Tartrate 25 MG Tablet 12.5 MG PO ×2 (09:20→20:56)
[2024-11-21] MEDS: Senna/Docusate Sodium 1 Tablet PO (09:20)
[2024-11-21] MEDS: Multivitamins,Ther W-Minerals Tablet 1 TABLET PO (09:20)
[2024-11-21] MEDS: Doxycycline 100 MG CAPSULE PO ×2 (09:20→20:56)
[2024-11-21] MEDS: busPIRone 15 MG TABLET PO ×2 (09:20→20:55)
[2024-11-21] MEDS: Menthol/Lanolin/Calamine/Znox 113 GM Tube 1 APPLIC TOPICAL ×2 (09:21→20:55)
--- NOTE | 2024-11-21 12:29 | MDS.RN ---
Pain assessment for MDS completed.
[2024-11-21] MEDS: Ferrous Sulfate 325 MG Tablet PO ×2 (13:04→17:40)
[2024-11-21 16:49] LABS: Bedside Glucose 125 mg/dL (74-106)
[2024-11-21] MEDS: Tamsulosin HCl 0.4 MG Capsule 0.8 MG PO (17:40)
[2024-11-21] MEDS: clonazePAM 0.5 MG Tablet PO (20:55)
[2024-11-21] MEDS: Atorvastatin Calcium 40 MG Tablet PO (20:55)
[2024-11-21] MEDS: Oseltamivir Phosphate 30 MG Capsule PO (20:55)
[2024-11-21 20:56] VITALS: PULSE 74
[2024-11-21] MEDS: Mirtazapine 30 MG Tablet PO (20:56)
[2024-11-22] MEDS: Furosemide 40 MG Tablet PO (05:35)
[2024-11-22 05:59] LABS: Absolute Lymphocyte Count 1.53 X10^3/uL (0.83-4.51); Absolute Neutrophil Count 3.2 X10^3/uL (2.0-7.7); Basophil# 0.06 X10^3/uL; Basophil% 1.1 % (0-1); Eosinophils% 5.3 % (0-5); Hematocrit 30.4 % (40-54); Hemoglobin 9.8 g/dL (13.0-16.5); Lymphocyte # 1.53 X10^3/ul (0.83-4.51); Lymphocyte % 27.3 % (19-41); Mean Corp Hgb Conc 32.2 g/dL (32-36); Mean Corpuscular Hgb 28.5 pg (27.0-32.0); Mean Corpuscular Volume 88.4 fL (80-94); Mean Platelet Vol. 11.5 fl (6.2-12.0); Monocyte# 0.53 X10^3/uL; Monocyte% 9.4 % (0-10); NRBC Flagged by Analyzer 0 % (0-5); Neutrophil # 3.18 X10^3/uL (2.7-7.7); Neutrophil % 56.7 % (47-70); Platelet Count 146 K/mm3 (150-450); RBC Distribution Width CV 15.9 % (11.6-14.6); RBC Distribution Width SD 51.8 fl (35.1-43.9); Red Blood Count 3.44 M/mm3 (4.6-6.2); White Blood Count 5.6 K/mm3 (4.4-11.0)
[2024-11-22 06:21] LABS: Bedside Glucose 134 mg/dL (74-106)
[2024-11-22 06:32] LABS: Anion Gap 6 (5-15); BUN 26 mg/dL (7-18); BUN/Creat Ratio 22.6 RATIO (10-20); Calcium,Total 9.1 mg/dL (8.5-10.1); Chloride 105 mmol/L (98-107); Creatinine, Serum 1.15 mg/dL (0.70-1.30); EST Glomerular Filtration Rate 64 mL/min (>60); Est Glom Filt Rate - Afr Amer 77 mL/min (>60); Estimated Creatinine Clearance 43.78 ml/min; Glucose 136 mg/dL (74-106); Potassium 3.8 mmol/L (3.5-5.1); Sodium Level 137 mmol/L (136-145)
[2024-11-22 08:53] VITALS: BP 119/54; PULSE 72
[2024-11-22] MEDS: APIXABAN 5 MG TABLET PO (08:53)
[2024-11-22] MEDS: Potassium Chloride Oral Tablet 20 MEQ PO (08:53)
[2024-11-22] MEDS: busPIRone 15 MG TABLET PO (08:53)
[2024-11-22] MEDS: Finasteride 5 MG Tablet PO (08:53)
[2024-11-22] MEDS: Senna/Docusate Sodium 1 Tablet PO (08:53)
[2024-11-22] MEDS: Metoprolol Tartrate 25 MG Tablet 12.5 MG PO (08:53)
[2024-11-22] MEDS: Multivitamins,Ther W-Minerals Tablet 1 TABLET PO (08:53)
[2024-11-22] MEDS: Hydrocortisone 2.5% Crm 1 APPLIC TOPICAL (08:55)
[2024-11-22] MEDS: Menthol/Lanolin/Calamine/Znox 113 GM Tube 1 APPLIC TOPICAL (08:55)
[2024-11-22 09:00] VITALS: BP 119/54; PULSE 72; RESP 18; TEMP 36.5; O2SAT 99
[2024-11-22 10:43] VITALS: BP 119/54; PULSE 72; RESP 18; TEMP 36.5; O2SAT 99
[2024-11-22] MEDS: Ferrous Sulfate 325 MG Tablet PO (11:24)
== END 2024-11-22 12:25 | disposition intermediate care facility (04) | DRG 292 ==
PROVIDERS: Internal Medicine; Admitting Provider Family Medicine Geriatric Medicine; PCP Internal Medicine; Referring Provider Family Medicine Geriatric Medicine; Visit Provider Family Medicine Geriatric Medicine
DX: I13.0 Hypertensive heart and chronic kidney disease with heart failure and stage 1 through stage 4 chronic kidney disease, or unspecified chronic kidney disease (principal); J91.8 Pleural effusion in other conditions classified elsewhere; I50.32 Chronic diastolic (congestive) heart failure; I27.21 Secondary pulmonary arterial hypertension; E11.22 Type 2 diabetes mellitus with diabetic chronic kidney disease; D50.9 Iron deficiency anemia, unspecified; B95.61 Methicillin susceptible Staphylococcus aureus infection as the cause of diseases classified elsewhere; F32.A Depression, unspecified; N18.9 Chronic kidney disease, unspecified; I48.0 Paroxysmal atrial fibrillation; E11.42 Type 2 diabetes mellitus with diabetic polyneuropathy; E78.2 Mixed hyperlipidemia; Z79.4 Long term (current) use of insulin; E87.6 Hypokalemia; F41.9 Anxiety disorder, unspecified; T83.511A Infection and inflammatory reaction due to indwelling urethral catheter, initial encounter; N39.0 Urinary tract infection, site not specified; G47.00 Insomnia, unspecified; R33.8 Other retention of urine; R31.9 Hematuria, unspecified; Z87.891 Personal history of nicotine dependence; R39.14 Feeling of incomplete bladder emptying; N40.1 Benign prostatic hyperplasia with lower urinary tract symptoms; Z79.899 Other long term (current) drug therapy; Z79.01 Long term (current) use of anticoagulants; R31.0 Gross hematuria; Z23 Encounter for immunization
CPT/HCPCS: 36415; 80048; 81001; 82962; 85014; 85018; 85025; 87077; 87086; 87088; 87186; 87811; 90480; 91322; 97110; 97116; 97162; 97166; 97530; 97535; 97802

== ENCOUNTER → 2024-12-25 | Outpatient (CLI) | payer MEDICARE, SELFPAY | END | disposition home or self-care (01) | LOC: LABSPEC 16:10 | PROVIDERS: PCP Internal Medicine; Visit Provider Podiatrist | DX: L97.912 Non-pressure chronic ulcer of unspecified part of right lower leg with fat layer exposed (principal) | CPT/HCPCS: 87070; 87077; 87186; 87205 ==

== ENCOUNTER → 2025-08-14 | Outpatient (CLI) | payer MEDICARE, MEDICAID, SELFPAY ==
--- NOTE | 2025-08-14 09:21 | RAD_ITS ---
PROCEDURE: CHEST PA AND LATERAL 08/14/2025 REASON FOR EXAM: SOB TECHNIQUE: Procedure Code: RADCXR Modality: DX Procedure: CHEST PA AND LATERAL COMPARISON: Portable chest, 10/11/2024. FINDINGS: There is cardiomegaly, pulmonary venous hypertension and pulmonary interstitial edema consistent with congestive heart failure. 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 There are moderate bilateral pleural effusions. There is fluid in the minor fissure on the right. The upper abdominal bowel gas pattern is normal. Status post median sternotomy. RAD/Chest PA and Lateral IMPRESSION: Congestive heart failure with bilateral pleural effusions. Other findings as n oted. Reading Location: [place] [id number]
--- NOTE | 2025-08-14 09:21 | RAD_ITS ---
PROCEDURE: CHEST PA AND LATERAL 08/14/2025 REASON FOR EXAM: SOB TECHNIQUE: Procedure Code: RADCXR Modality: DX Procedure: CHEST PA AND LATERAL COMPARISON: Portable chest, 10/11/2024. FINDINGS: There is cardiomegaly, pulmonary venous hypertension and pulmonary interstitial edema consistent with congestive heart failure. 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 There are moderate bilateral pleural effusions. There is fluid in the minor fissure on the right. The upper abdominal bowel gas pattern is normal. Status post median sternotomy. RAD/Chest PA and Lateral IMPRESSION: Congestive heart failure with bilateral pleural effusions. Other findings as n oted. Reading Location: [place] [id number]
[2025-08-14 10:11] LABS: Hematocrit 33.4 % (40-54); Hemoglobin 10.7 g/dL (13.0-16.5); Immature Granulocytes Count 0.020 X10^3/uL (0.0-0.0); Mean Corp Hgb Conc 32.0 g/dL (32-36); Mean Corpuscular Volume 73.9 fL (80-94); Mean Platelet Vol. 10.1 fl (6.2-12.0); NRBC Flagged by Analyzer 0 % (0-5); POSITIVE MORPHOLOGY YES; Platelet Count 157 K/mm3 (150-450); RBC Distribution Width CV 20.4 % (11.6-14.6); RBC Distribution Width SD 53.8 fl (35.1-43.9); Red Blood Count 4.52 M/mm3 (4.6-6.2); White Blood Count 6.1 K/mm3 (4.4-11.0)
[2025-08-14 10:21] LABS: Differential Indicated SCAN CRITERIA MET
[2025-08-14 10:44] LABS: Anion Gap 12 (5-15); BUN 18 mg/dL (4-19); BUN/Creat Ratio 21.0 RATIO (10-20); Calcium,Total 9.3 mg/dL (7.6-11.0); Carbon Dioxide 26.1 mmol/L (21.0-32.0); Chloride 96 mmol/L (98-108); Glucose 128 mg/dL (70-99); Potassium 3.9 mmol/L (3.3-5.1); Pro- Brain NATRIURETIC PEPTIDE 4611 pg/mL (<=1800)
[2025-08-14 11:00] LABS: Differential Comment SCANNED
[2025-08-14 11:01] LABS: Anisocytosis 2+; Microcytosis 1+
== END | disposition home or self-care (01) ==
PROVIDERS: PCP Internal Medicine; Referring Provider Nurse Practitioner Gerontology; Visit Provider Nurse Practitioner Gerontology
DX: R06.02 Shortness of breath (principal)
CPT/HCPCS: 36415; 71046; 80048; 83880; 85025

== ENCOUNTER → 2025-09-09 | Outpatient (CLI) | payer MEDICARE, MEDICAID, SELFPAY ==
--- NOTE | 2025-09-09 12:35 | RAD_ITS ---
PROCEDURE: RAD/Chest PA and Lateral
== END | disposition home or self-care (01) ==
PROVIDERS: PCP Internal Medicine; Referring Provider Nurse Practitioner Family; Visit Provider Nurse Practitioner Family
DX: J90 Pleural effusion, not elsewhere classified (principal)
CPT/HCPCS: 71046

== ENCOUNTER 2025-09-10 23:00 | Inpatient (IN) | payer MEDICARE, MEDICAID, SELFPAY ==
--- NOTE | 2025-09-10 11:55 | RAD_ITS ---
PROCEDURE: RAD/Chest 1 View (Portable)
[2025-09-10 23:03] VITALS: BP 90/67; PULSE 127; RESP 22; TEMP 37.2; O2SAT 98; BMI 26.3
[2025-09-10 23:06] VITALS: BP 90/67; PULSE 127; RESP 22; TEMP 37.2; O2SAT 98
--- NOTE | 2025-09-10 23:22 | EKG12_ITS ---
Test Reason : SHORTNESS OF BREATH
--- NOTE | 2025-09-10 23:26 | ED.VIS.DYS ---
HPI History of Present Illness Chief Complaint: Shortness of Breath Informant: patient, family and EMS Narrative Narrative: Patient is a 89-year-old male with history of heart failure with preserved ejection fraction, coronary artery status post CABG in 2019, proximal atrial fibrillation, long-term anticoagulation on Eliquis, chronic hypoxic respiratory failure on 2 L of oxygen at baseline, secondary pulmonary atrial hypertension Worsening weakness, fever and shortness of breath. Notes that he has been more short of breath for about a month. Denies any acute changes sputum production or breathing. Has been getting weaker and deteriorating for family over the past few weeks but more so over the past few days. Had reported blood pressures that have been low, and fever of 100.8 at 5:30 PM today. Received Tylenol prior to arrival. He denies any chest pain. No swelling of his legs reported. Did reportedly have an episode of vomiting earlier today as well. He feels that he needs to urinate but cannot right now. Denies any dysuria. No rash reported. No other complaints or concerns at this time. [facility] Medical History Pleural effusion CHF (congestive heart failure) Congestive heart failure Carotid artery bruit Hypoglycemia associated with type 2 diabetes mellitus Frequent falls Elevated LFTs Physical debility BPH (benign prostatic hyperplasia) Vitamin D deficiency Chronic renal failure, stage 2 (mild) Thrombocytopenia Significant closed head trauma within past 3 months Abnormal LFTs Chronic diastolic (congestive) heart failure Dehydration Acute on chronic renal failure Hyperkalemia Hyponatremia Abrasions of multiple sites Fall Bradycardia Near syncope Obesity Secondary pulmonary arterial hypertension Paroxysmal atrial fibrillation Postoperative atrial fibrillation (01/01/19) Essential (primary) hypertension Anxiety and depression Thyroid nodule Stenosis of right subclavian artery Pleural effusion on left Iron deficiency anemia Type 2 diabetes mellitus Left bundle branch block Non-rheumatic aortic stenosis Atherosclerosis of coronary artery of [place] heart without angina pectoris Hyperlipidemia Home Medications ?Medication ?Instructions ?Recorded ?Last Taken ?Type vitamins A,C,W-mvxj-ofvsqw 4,296 1 cap PO BID EYE [facility]ALTH 03/07/19 10/25/19 History mcg-226 mg-90 mg capsule ciefrpre-ox-afdva 300 mcg-K 60 1 tab PO DAILY supplement 10/25/19 10/25/19 History mcg-lycop 600 mcg-lutein 300 mcg tablet tamsulosin 0.4 mg capsule 0.8 mg PO DAILY@1730 urinary 11/25/23 Unknown History retention finasteride 5 mg tablet (Proscar) 5 mg PO DAILY prostate #30 tabs 11/27/23 Unknown Rx metoprolol tartrate 25 mg tablet 12.5 mg (1/2 x 25 mg) PO BID high 02/20/24 Unknown Rx blood pressure #90 tabs atorvastatin 40 mg tablet 40 mg PO QHS antihyperlipidemics 10/11/24 Unknown History ferrous sulfate 325 mg (65 mg 325 mg PO BID supplement 11/01/24 Unknown History iron) tablet (FeroSul) acetaminophen 500 mg tablet 1,000 mg (2 x 500 mg) PO Q6H PRN 11/19/24 Unknown Rx pain 1-10 #0 tabs apixaban 5 mg tablet (Eliquis) 5 mg PO BID #0 tabs 11/19/24 Unknown Rx potassium chloride 20 mEq 20 meq PO DAILYCM #0 tabs 11/19/24 Unknown Rx tablet,extended release(part/cryst) sennosides 8.6 mg-docusate sodium 1 tab PO DAILY #0 tabs 11/19/24 Unknown Rx 50 mg tablet (Stimulant Laxative Plus) cetirizine 5 mg tablet 5 mg PO QDAY PRN allergy symptoms 08/14/25 Unknown History metformin 500 mg tablet 500 mg PO BID 08/14/25 Unknown History sertraline 100 mg tablet (Zoloft) 150 mg PO QDAY 08/14/25 Unknown History spironolactone 25 mg tablet 25 mg PO QDAY #30 tabs 08/14/25 Unknown Rx trazodone 50 mg tablet 50 mg PO QHS PRN sleep 08/14/25 Unknown History bumetanide 2 mg tablet 3 mg (1.5 x 2 mg) PO BID 90 days 09/09/25 Unknown Rx #270 tabs dapagliflozin propanediol 10 mg 10 mg PO QDAY #90 tabs 09/09/25 Unknown Rx tablet (Farxiga) clonazepam 0.5 mg tablet 0.5 mg PO Q12H 09/10/25 Unknown History prednisone 20 mg tablet 40 mg PO Q12H 09/10/25 Unknown History Allergy/AdvReac Type Severity Reaction Status Date / Time No Known Allergies Allergy Verified 08/14/25 08:47 Family History Father CVA (cerebral vascular accident) Mother COPD (chronic obstructive pulmonary disease) Surgical History History of open reduction and internal fixation (ORIF) procedure History of cataract surgery History of hip replacement History of thoracentesis (01/05/19) History of left heart catheterization (10/31/18) H/O aortic valve replacement (01/01/19) H/O coronary artery bypass surgery (01/01/19) Social History household members: none Smoking Status: Former smoker quit date: 11/13/03 how long ago did patient quit smoking: cigars ROS ROS ED Constitutional Constitutional ED: Reports fever(s) ENT ENT ED: Denies rhinorrhea or sore throat Cardiovascular Cardiovascular: Denies chest pain Respiratory/Chest Respiratory/Chest: Reports cough, dyspnea and sputum Gastrointestinal Gastrointestinal: Reports nausea and vomiting; Denies abdominal pain or diarrhea Musculoskeletal Musculoskeletal: Denies arthralgias or myalgias Integumentary Denies rash Neurologic Neurologic: Reports weakness Hematologic/Lymphatic Hematologic/Lymphatic: Reports easy bleeding and easy bruising EXAM Physical Exam Const Vital Signs: 09/10/25 23:03 09/10/25 23:06 09/10/25 23:33 Temperature 98.9 F 98.9 F Temperature Source Oral Oral Pulse Rate 127 H 127 H Respiratory Rate 22 H 22 H Respiratory Effort Respiratory Depth Respiratory Pattern Blood Pressure 90/67 90/67 Blood Pressure Mean 74 74 Pulse Ox 98 98 Oxygen Delivery Method Nasal Cannula Nasal Cannula Nasal Cannula Oxygen Flow Rate (L/min) 2 2 2 09/10/25 23:35 09/10/25 23:38 09/11/25 00:06 Temperature 98.9 F Temperature Source Oral Pulse Rate 111 H 107 H Respiratory Rate 24 H 22 H Respiratory Effort Normal Non-Labored Respiratory Depth Normal Respiratory Pattern Normal Tachypnea Blood Pressure 82/63 L Blood Pressure Mean 69 Pulse Ox 95 Oxygen Delivery Method Nasal Cannula Room Air Oxygen Flow Rate (L/min) 2 09/11/25 01:00 09/11/25 02:00 Temperature Temperature Source Pulse Rate 98 103 H Respiratory Rate 22 H 25 H Respiratory Effort Respiratory Depth Respiratory Pattern Blood Pressure 92/73 105/84 H Blood Pressure Mean 79 91 Pulse Ox 100 100 Oxygen Delivery Method Nasal Cannula Oxygen Flow Rate (L/min) 2 Positive well nourished and well developed General Appearance ED: well developed and NAD; Negative for pallor HEENT Reports dry mucous membranes atraumatic Mouth ED: Yes dry mucous membranes Mouth: dry mucous membranes Eyes PERRL General Eye ED: Negative for pale conjunctiva Neck supple and no JVD Resp Resp Narrative: Mildly tachypneic. No conversational dyspnea. Coarse/rhonchorous breath sounds throughout with crackles at the bases. Cardio Rate: tachycardic Rhythm: abnormal rhythm irregularly irregular GI non-tender and non-distended Auscultation: hypoactive bowel sounds Palpation: soft; Negative for tender or guarding Back/Spine no CVA tenderness Extremity normal to inspection General Extremety ED: Negative for edema General Extremity: Negative for edema Neuro oriented x3 Sensorium / Orientation: alert Speech: speech normal Motor Exam: general weakness Psych mental status grossly normal Skin no wounds General Skin Exam: Negative for jaundice or pallor Sepsis Attestation Sepsis Alert: Yes Sepsis Attestation: Agree w/Sepsis Date exam was performed: 09/11/25 Time exam was performed: 00:00 Possible Source of Sepsis: Pulmonary and GI tract/intra-abdominal Sepsis Organ Dysfunction Criteria Present: SBP < 90 mmHg or MAP < 65 mmHg and INR > 1.5 or aPTT > 60 sec Fluid Resuscitation Fluid resuscitation indicated?: Yes Fluid Resuscitation ordered: Lesser volume fluid bolus ordered Amount of fluid ordered: 1,500 Reason for lesser fluid bolus:: Heart failure and BP Responded to a lesser volume MDM MDM MDM Narrative Medical decision making narrative: Patient evaluated for hypotension, weakness and fever as well as episode of vomiting at nursing facility. Upon arrival patient is in atrial flutter versus fibrillation with RVR and does have soft pressures. Is given a fluid bolus as clinically appears dehydrated and more concern for sepsis picture however cardiac workup will be obtained. Clinically he does not appear fluid overloaded however he does have quite rhonchorous breath sounds. Patient reevaluated at 12:30 AM. States he feels a little better after breathing treatment. After first bolus of 500 cc of fluid pressure still soft at 82/63 however his MAP is above 65. Given additional fluids. States he feels mildly improved after DuoNeb however he still has rhonchorous breath sounds. Will obtain CT abdomen and pelvis because of his transaminitis as well as fever and vomiting looking for cause of infection. Does have a leukocytosis of 15 with a left shift. Chest x-ray pending however I suspect he is developing infiltrate on the right side. Patient given broad-spectrum antibiotics, vancomycin and Zosyn in the emergency room. He does have no acute transaminitis with a minimally elevated total bilirubin. Unsure if this is secondary to hypotension or associated with acute gallbladder pathology. He did have vomiting and decision made to add on CT of the chest abdomen pelvis for further evaluation. He is given additional liter of fluids and his blood pressure and heart rate do improved. Urinalysis shows 2+ bacteria but otherwise no significant signs of infection. Cultures pending. Blood cultures are pending as well. High sensitive troponin is elevated at 102 and then on repeat 96. Suspect this is more strain associated with tacky arrhythmia, hypotension and underlying illness. I do not think this is primarily an ACS process. He is not reporting chest pain. CT of the abdomen pelvis shows multifocal pneumonia as well as some chronic parenchymal liver disease with thickened gallbladder with surrounding mild amount of free fluid which could be secondary to the chronic liver disease. On my repeat evaluation he does not have any tenderness in the right upper quadrant. He does have some mild free ascitic fluid as well as some diffuse thickening of the perez of the gallbladder which could be cystitis versus chronic bladder outlet obstruction. He does have some prominent lymph nodes but no obvious malignancy or masses noted. Case discussed with hospitalist. Will be admitted for treatment of sepsis presumed from pneumonia however he might require further workup for biliary pathology given his acute transaminitis. His admit to the ICU per protocol since he is meeting criteria for sepsis. Blood pressure was fluid responsive in the emergency room did not require pressors. He was not given the full 30 cc/kg fluid bolus as he does have a significant history of heart failure and did not want to fluid overload him plus blood pressure was responsive to lesser volume. Lab Data Attestation: I reviewed the patient's lab results. Labs: Laboratory Results - last 24 hr 09/10/25 09/10/25 09/10/25 23:10 23:32 23:37 WBC 15.0 H RBC 4.35 L Hgb 10.1 L Hct 31.8 L MCV 73.1 L MCH 23.2 L MCHC 31.8 L RDW Std Deviation 55.0 H RDW Coeff of Torie 21.2 H Plt Count 139 L MPV 10.5 Immature Gran % (Auto) 1.700 H Neut % (Auto) 88.1 H Lymph % (Auto) 4.8 L [place] % (Auto) 5.0 Eos % (Auto) 0.1 Baso % (Auto) 0.3 Absolute Neuts (auto) 13.3 H Absolute Lymphs (auto) 0.72 L Nucleated RBC % 0 Differential Comment SCANNED Platelet Estimate SLT DEC Anisocytosis 2+ Microcytosis 1+ Target Cells 1+ Tear Drop Cells 1+ Ovalocytes 2+ Crenated Cell 1+ Acanthocytes (Spur) RARE Schistocytes RARE PT 25.2 H INR 2.2 APTT 39.2 H Sodium 137 Potassium 4.1 Chloride 94 L Carbon Dioxide 29.5 Anion Gap 13 BUN 36 H Creatinine 1.20 Estim Creat Clear Calc 41.17 L Est GFR (MDRD) Non-Af 58 L BUN/Creatinine Ratio 29.8 H Glucose 124 H Lactic Acid 1.7 Calcium 9.2 Magnesium Total Bilirubin 1.88 H AST 159 H ALT 94 H Alkaline Phosphatase 166 H Troponin T High Sens 102 H* Troponin T Hi Sens 2 Hr Total Protein 6.7 Albumin 3.5 Globulin 3.3 Albumin/Globulin Ratio 1.1 Lipase 20 Urine Color Yellow Urine Clarity Clear Urine pH 6.0 Ur Specific [place] 1.010 Urine Protein 30 H Urine Glucose (UA) Normal Urine Ketones Negative Urine Occult Blood 10 H Urine Nitrite Negative Urine Bilirubin Negative Urine Urobilinogen 1 H Ur Leukocyte Esterase 100 H Urine RBC 0-5 SEEN Urine WBC 0-5 SEEN Ur Squamous Epith Cells 0-5 SEEN Ur Transition Epith Cell 0-5 SEEN Ur Renal Epithelial Cell 5-10 SEEN Amorphous Sediment 2+ Urine Bacteria 2+ Hyaline Casts 0-5 SEEN Urine Mucus 0 SEEN 09/11/25 01:12 WBC RBC Hgb Hct MCV MCH MCHC RDW Std Deviation RDW Coeff of Torie Plt Count MPV Immature Gran % (Auto) Neut % (Auto) Lymph % (Auto) [place] % (Auto) Eos % (Auto) Baso % (Auto) Absolute Neuts (auto) Absolute Lymphs (auto) Nucleated RBC % Differential Comment Platelet Estimate Anisocytosis Microcytosis Target Cells Tear Drop Cells Ovalocytes Crenated Cell Acanthocytes (Spur) Schistocytes PT INR APTT Sodium Potassium Chloride Carbon Dioxide Anion Gap BUN Creatinine Estim Creat Clear Calc Est GFR (MDRD) Non-Af BUN/Creatinine Ratio Glucose Lactic Acid Calcium Magnesium 1.6 Total Bilirubin AST ALT Alkaline Phosphatase Troponin T High Sens Troponin T Hi Sens 2 Hr 96 H* Total Protein Albumin Globulin Albumin/Globulin Ratio Lipase Urine Color Urine Clarity Urine pH Ur Specific [place] Urine Protein Urine Glucose (UA) Urine Ketones Urine Occult Blood Urine Nitrite Urine Bilirubin Urine Urobilinogen Ur Leukocyte Esterase Urine RBC Urine WBC Ur Squamous Epith Cells Ur Transition Epith Cell Ur Renal Epithelial Cell Amorphous Sediment Urine Bacteria Hyaline Casts Urine Mucus Radiography Chest X-Ray - ED: 1 View, Read by ED Physician and Right Infiltrate Diagnostic Testing: Clinical Impression(s) from Imaging Studies Chest X-Ray 09/10/25 11:55 IMPRESSION: Again are noted changes from prior metallic valve replacement. Unremarkable median sternotomy wires. Unchanged blunting of the costophrenic angles, probably adhesions versus minimal bilateral pleural effusions. Decreased bilateral basilar pulmonary infiltrates. Enlarged cardiac silhouette. Reading Location: [place] [id number] Chest/Abdomen/Pelvis CT 09/11/25 00:21 IMPRESSION: Bilateral pleural thickening. Minimal bilateral pleural effusions. Passive atelectatic airspace disease of the lower lobes. Bilateral basilar multifocal ground-glass densities of the lungs, probably multifocal pneumonia, not present on prior exam. Mild bilateral basilar bronchiectatic changes. Mild cardiomegaly. Changes from prior aortic valve replacement. Mildly prominent mediastinal lymph nodes are noted with the largest measuring 1.3 cm. Small sliding hiatal hernia. Diffuse thickening of the stomach suggestive of gastritis. Dilated supra hepatic IVC suggestive of dysfunction of the right cardiac cavities. Hepatomegaly. Diffuse irregularity of the hepatic contour, probably secondary to chronic parenchymal liver disease. Mild splenomegaly. Thickened gallbladder with surrounding mild amount of free fluid, probably secondary to chronic parenchymal liver disease. Mild free ascitic fluid in the abdomen and pelvis. Uncomplicated colonic diverticulosis. Scattered right renal simple cysts are noted with the largest measuring 1.5 cm. Moderate prostatomegaly. Diffuse thickening of the wall of the bladder. Chronic bladder outlet obstruction versus cystitis. Mildly prominent retroperitoneal lymph nodes are noted with the largest measuring 1.2 cm. Mildly prominent rai hepatis lymph nodes are noted with the largest measuring 1.2 cm, probably reactive. Scattered prostatic calcifications. Mild osteopenia. Moderate diffuse spondylosis. Unremarkable metallic prosthesis of the right hip. Reading Location: [place] [id number] Rhythm Strip Rhythm Strip: A-fib Rate: 122 Ectopy: None EKG Initial EKG: Attestation: I personally reviewed and interpreted this EKG as follows: Interpretation: Atrial Flutter Comments: Atrial flutter at a rate of 122 bpm with variable AV block Left axis deviation Right bundle branch block T wave inversion in aVL with flattening in 1 and V3 Compared to prior EKG on 02/28/2025 is now tachycardic but no other acute changes Management Discussion w/another healthcare provider: Hospitalist Critical Care Time Critical Care Time: Yes Critical care time (excluding procedures): 30-74 minutes (35), Discussing w/Patient &/or Family/[employer], Discussing w/Consultants and Arranging Admission or Transfer Discharge Plan Dx/Rx/DC Orders Clinical Impression: Sepsis, Atherosclerosis of coronary artery of [place] heart without angina pectoris, Pneumonia, Elevated LFTs, Urinary retention, (HFpEF) heart failure with preserved ejection fraction, Atrial fibrillation, Current use of intermission coordinator anticoagulation, Elevated troponin Disposition Disposition: Acute Care Hospital [facility] Discharge Date/Time: 09/11/25 03:30
[2025-09-10] MEDS: 0.9% Normal Saline (500mL Bag) 500 ML 999 ML IV (23:28)
[2025-09-10 23:36] LABS: Hematocrit 31.8 % (40-54); Hemoglobin 10.1 g/dL (13.0-16.5); Immature Granulocytes Count 0.260 X10^3/uL (0.0-0.0); Mean Corp Hgb Conc 31.8 g/dL (32-36); Mean Corpuscular Volume 73.1 fL (80-94); Mean Platelet Vol. 10.5 fl (6.2-12.0); NRBC Flagged by Analyzer 0 % (0-5); POSITIVE MORPHOLOGY YES; Platelet Count 139 K/mm3 (150-450); RBC Distribution Width CV 21.2 % (11.6-14.6); RBC Distribution Width SD 55.0 fl (35.1-43.9); Red Blood Count 4.35 M/mm3 (4.6-6.2); White Blood Count 15.0 K/mm3 (4.4-11.0)
[2025-09-10 23:38] VITALS: PULSE 111; RESP 24
[2025-09-10 23:39] LABS: Prothrombin Time (Protime)PT. 25.2 SECONDS (11.7-14.9)
[2025-09-10 23:40] LABS: Partial Thromboplast Time 39.2 Seconds (24.1-36.2)
[2025-09-10 23:43] LABS: Mucous, Urine 0 SEEN /hpf (<or=2+)
[2025-09-10 23:48] LABS: Color, Urine Yellow (Yellow); Glucose, Dipstick Normal (Normal); Ketone-Dipstick Negative (Negative); Leukocyte Esterase-Dipstick 100 /ul (Negative); Nitrite-Dipstick Negative (Negative); Occult Blood-Urine 10 /ul (Negative); Protein-Dipstick 30 mg/dl (Negative); Specific Gravity, Urine 1.010 (1.002-1.030); Urine Bilirubin Dipstick Negative (Negative)
[2025-09-10 23:53] LABS: Differential Indicated SCAN CRITERIA MET
[2025-09-10 23:56] LABS: Squamous Epithelial Cells - UA 0-5 SEEN /hpf (0-5)
[2025-09-10 23:57] LABS: Red Blood Cells-Urine 0-5 SEEN /hpf (0-5); Transitional Epithelial - Ur 0-5 SEEN /hpf (0-5)
[2025-09-11] VITALS (29 sets, daily range): BP systolic 80–122; BP diastolic 55–93; PULSE 83–128; RESP 18–85; TEMP 35.9–37.2; O2SAT 86–100; BMI 23.3
[2025-09-11 00:03] LABS: AST(SGOT) 159 U/L (<=37); Alanine Aminotransfer ALT/SGPT 94 U/L (<=46); Albumin, Serum 3.5 g/dL (3.4-4.8); Alkaline Phosphatase 166 U/L (40-129); Anion Gap 13 (5-15); BUN 36 mg/dL (4-19); BUN/Creat Ratio 29.8 RATIO (10-20); Calcium,Total 9.2 mg/dL (7.6-11.0); Carbon Dioxide 29.5 mmol/L (21.0-32.0); Chloride 94 mmol/L (98-108); Estimated Creatinine Clearance 41.17 ml/min (50-250); Globulin 3.3 g/dL (2.2-4.2); Glucose 124 mg/dL (70-99); Potassium 4.1 mmol/L (3.3-5.1)
[2025-09-11 00:17] LABS: Troponin T High Sensitivity 102 ng/L (<=22)
--- NOTE | 2025-09-11 00:21 | CT_ITS ---
PROCEDURE: CT/CT Chest, Abd, Pel w/Contrast
[2025-09-11 00:38] LABS: Anisocytosis 2+; Differential Comment SCANNED
[2025-09-11 00:39] LABS: Acanthocytes RARE; Crenated RBC 1+; Microcytosis 1+; Schistocytes RARE; Target Cells 1+; Tear Drop Cell 1+
[2025-09-11] MEDS: Piperacil/Tazobactam 4.5 GM in 0.9% Normal Saline (100mL MB+) 100 ML IV (00:50)
[2025-09-11] MEDS: 0.9% Normal Saline (1000mL) 1,000 ML 999 ML IV (00:50)
[2025-09-11 01:21] LABS: Lipase 20 U/L (13-75)
[2025-09-11] MEDS: Vancomycin HCl 2,000 MG in 0.9% Normal Saline (500mL Bag) 500 ML 250 MG IV (01:40)
[2025-09-11 01:47] LABS: Troponin T High Sens 2 HR 96 ng/L (<=22)
--- NOTE | 2025-09-11 02:28 | PCM.HP.STD ---
HPI - General General Date of Admission: 09/11/25 Date of Service: 09/11/25 Chief Complaint: Dyspnea, productive cough, F/C, N/V. HPI Narrative The patient is an 89 y/o M w/ PMHx: Chronic Hypoxic Respiratory Failure (2L NC)BPH with obstructive pathology, PAF, CAD status post CABG, Valvular heart disease, HTN, HLD, Diabetes melitis type II, Chronic anemia/Fe deficiency anemia, CKD stage II per GFR trending, Anxiety and Depression who presents to the [facility] ED on 09/10/2025 with history of onset of dyspnea over the last 2 days with increased coughing with noted yellow-green phlegm with reportedly SBP 60/30 on an auto machine at skilled facility however manual with noted 90/58 with EMS repeat vitals more appropriate with significant bilateral rails prompting transition to ED for further evaluation. Patient notes he has had worsening weakness and debility as well as fevers. He denies any recent lower extremity swelling. He does note having nausea and emesis. He denies any recent dysuria. Workup in the ED included T98.9, heart rate 127, BP 90/67, respiratory rate 22, 98% on 2 L nasal cannula with most recent repeat vitals T98.9, heart rate 107, BP 82/63, respiratory rate 22, 95% on room air, CBC with WC 15, hemoglobin 10.1, MCV 73.1, platelet 139 with left shift and lymphopenia, coags with PT 25.2, INR 2.2, PTT 39.6, CMP with chloride 94, BUN/creatinine 36/1.20, GFR 58, glucose 124, T. bili 1.88, AST/ALT 159/94, alk phos 166, lactic acid 1.7, urinalysis with negative nitrite, leukocyte esterase 100, no urine WBCs or RBCs, urine bacteria 2+, urine culture pending per ED, blood culture x 2 pending per ED, rapid SARS COVID/influenza/RSV PCR negative, CT chest/abdomen/pelvis bilateral pleural thickening, minimal bilateral pleural effusions, passive atelectasis airspace bilaterally, bilateral bibasilar multifocal ground glass densities probable multifocal pneumonia, mild bilateral basilar bronchiectatic changes, mild cardiomegaly, changes from prior AVR, mildly prominent mediastinal lymph nodes, small sliding hiatal hernia, diffuse thickening of the stomach suggestive of gastritis, hepatomegaly, mild splenomegaly, thickened gallbladder with surrounding mild amount of free fluid possibly secondary to chronic parenchymal liver disease, mild free ascitic fluid in the abdomen and pelvis, uncomplicated colonic diverticulosis, scattered right renal simple cysts, moderate prostamegaly, diffuse thickening of the wall of the bladder, chronic bladder outlet obstruction versus cystitis, mildly prominent retroperitoneal lymph nodes, mildly prominent rai hepatis lymph nodes, scattered prostatic calcifications, mild osteopenia, moderate diffuse spondylosis, unremarkable metallic prosthesis of the right hip, chest x-ray changes from prior metallic valve replacement, stable appearing median sternotomy wires, unchanged blunting of the costophrenic angles probable adhesions versus minimal bilateral pleural effusions, decreased bilateral basilar pulmonary infiltrates from previous, enlarged cardiac silhouette, EKG with atrial flutter with rate 122 with variable AV block with T wave inversion in aVL with flattening in 1 and V3 with no other acute changes aside from tachycardia compared to previously. In the ED patient ministered 2 L normal saline and DuoNeb therapy, IV Zosyn and IV vancomycin. [facility] Medical History Pleural effusion CHF (congestive heart failure) Congestive heart failure Carotid artery bruit Hypoglycemia associated with type 2 diabetes mellitus Frequent falls Elevated LFTs Physical debility BPH (benign prostatic hyperplasia) Vitamin D deficiency Chronic renal failure, stage 2 (mild) Thrombocytopenia Significant closed head trauma within past 3 months Abnormal LFTs Chronic diastolic (congestive) heart failure Dehydration Acute on chronic renal failure Hyperkalemia Hyponatremia Abrasions of multiple sites Fall Bradycardia Near syncope Obesity Secondary pulmonary arterial hypertension Paroxysmal atrial fibrillation Postoperative atrial fibrillation (01/01/19) Essential (primary) hypertension Anxiety and depression Thyroid nodule Stenosis of right subclavian artery Pleural effusion on left Iron deficiency anemia Type 2 diabetes mellitus Left bundle branch block Non-rheumatic aortic stenosis Atherosclerosis of coronary artery of solomon heart without angina pectoris Hyperlipidemia Home Medications ?Medication ?Instructions ?Recorded ?Last Taken ?Type vitamins A,C,D-hfnb-uhqcsj 4,296 1 cap PO BID EYE HEALTH 03/07/19 10/25/19 History mcg-226 mg-90 mg capsule puducvnz-[id number] 300 mcg-K 60 1 tab PO DAILY supplement 10/25/19 10/25/19 History mcg-lycop 600 mcg-lutein 300 mcg tablet tamsulosin 0.4 mg capsule 0.8 mg PO DAILY@1730 urinary 11/25/23 Unknown History retention finasteride 5 mg tablet (Proscar) 5 mg PO DAILY prostate #30 tabs 11/27/23 Unknown Rx metoprolol tartrate 25 mg tablet 12.5 mg (1/2 x 25 mg) PO BID high 02/20/24 Unknown Rx blood pressure #90 tabs atorvastatin 40 mg tablet 40 mg PO QHS antihyperlipidemics 10/11/24 Unknown History ferrous sulfate 325 mg (65 mg 325 mg PO BID supplement 11/01/24 Unknown History iron) tablet (FeroSul) acetaminophen 500 mg tablet 1,000 mg (2 x 500 mg) PO Q6H PRN 11/19/24 Unknown Rx pain 1-10 #0 tabs apixaban 5 mg tablet (Eliquis) 5 mg PO BID #0 tabs 11/19/24 Unknown Rx potassium chloride 20 mEq 20 meq PO DAILYCM #0 tabs 11/19/24 Unknown Rx tablet,extended release(part/cryst) sennosides 8.6 mg-docusate sodium 1 tab PO DAILY #0 tabs 11/19/24 Unknown Rx 50 mg tablet (Stimulant Laxative Plus) cetirizine 5 mg tablet 5 mg PO QDAY PRN allergy symptoms 08/14/25 Unknown History metformin 500 mg tablet 500 mg PO BID 08/14/25 Unknown History sertraline 100 mg tablet (Zoloft) 150 mg PO QDAY 08/14/25 Unknown History spironolactone 25 mg tablet 25 mg PO QDAY #30 tabs 08/14/25 Unknown Rx trazodone 50 mg tablet 50 mg PO QHS PRN sleep 08/14/25 Unknown History bumetanide 2 mg tablet 3 mg (1.5 x 2 mg) PO BID 90 days 09/09/25 Unknown Rx #270 tabs dapagliflozin propanediol 10 mg 10 mg PO QDAY #90 tabs 09/09/25 Unknown Rx tablet (Farxiga) clonazepam 0.5 mg tablet 0.5 mg PO Q12H 09/10/25 Unknown History prednisone 20 mg tablet 40 mg PO Q12H 09/10/25 Unknown History Allergy/AdvReac Type Severity Reaction Status Date / Time No Known Allergies Allergy Verified 08/14/25 08:47 Family History Father CVA (cerebral vascular accident) Mother COPD (chronic obstructive pulmonary disease) Surgical History History of open reduction and internal fixation (ORIF) procedure History of cataract surgery History of hip replacement History of thoracentesis (01/05/19) History of left heart catheterization (10/31/18) H/O aortic valve replacement (01/01/19) H/O coronary artery bypass surgery (01/01/19) Social History household members: none Smoking Status: Former smoker quit date: 11/13/03 how long ago did patient quit smoking: cigars ROS ROS Narrative Admission Review of Systems: CONSTITUTIONAL: No weight loss, + fever, chills, weakness or fatigue. HEENT: Eyes: No visual loss, blurred vision, double vision or yellow sclerae. Ears, Nose, Throat: No hearing loss, sneezing, congestion, runny nose or sore throat. SKIN: No rash or itching, lesions, wounds except occasional stage ecchymoses, abrasion. CARDIOVASCULAR: No chest pain, chest pressure or chest discomfort, palpitations, edema, orthopnea, syncopal events. RESPIRATORY: + Dyspnea, productive cough. No wheezing, hemoptysis. GASTROINTESTINAL: + Anorexia, nausea, vomiting. No diarrhea, abdominal pain, melena, BRBPR. GENITOURINARY: + Mild urinary hesitancy, chronic urinary frequency. No dysuria, urgency. NEUROLOGICAL: No headache, dizziness, syncope, paralysis, ataxia, numbness or tingling in the extremities, focal weakness, change in bowel or bladder control, seizure. MUSCULOSKELETAL: + muscle, back pain, joint pain or stiffness. HEMATOLOGIC: + Chronic anemia, easy bleeding/bruising. LYMPHATICS: No enlarged nodes. No history of splenectomy. PSYCHIATRIC: + History of anxiety and depression. ENDOCRINOLOGIC: No reports of sweating, cold or heat intolerance. No polyuria or polydipsia. ALLERGIES: + Hx allergic rhinitis. Vital Signs Vital Signs Vital Signs: 09/10/25 23:03 09/10/25 23:06 09/10/25 23:33 Temperature 98.9 F 98.9 F Temperature Source Oral Oral Pulse Rate 127 H 127 H Respiratory Rate 22 H 22 H Respiratory Effort Respiratory Depth Respiratory Pattern Blood Pressure 90/67 90/67 Blood Pressure Mean 74 74 Pulse Ox 98 98 Oxygen Delivery Method Nasal Cannula Nasal Cannula Nasal Cannula Oxygen Flow Rate (L/min) 2 2 2 09/10/25 23:35 09/10/25 23:38 09/11/25 00:06 Temperature 98.9 F Temperature Source Oral Pulse Rate 111 H 107 H Respiratory Rate 24 H 22 H Respiratory Effort Normal Non-Labored Respiratory Depth Normal Respiratory Pattern Normal Tachypnea Blood Pressure 82/63 L Blood Pressure Mean 69 Pulse Ox 95 Oxygen Delivery Method Nasal Cannula Room Air Oxygen Flow Rate (L/min) 2 09/11/25 01:00 09/11/25 02:00 Temperature Temperature Source Pulse Rate 98 103 H Respiratory Rate 22 H 25 H Respiratory Effort Respiratory Depth Respiratory Pattern Blood Pressure 92/73 105/84 H Blood Pressure Mean 79 91 Pulse Ox 100 100 Oxygen Delivery Method Nasal Cannula Oxygen Flow Rate (L/min) 2 Weight Weight: 173 lb 1.006 oz Body Mass Index (BMI) 26.3 Physical Exam Narrative Physical Examination: General: Awake, alert, oriented x 3 and cooperative, seated upright in ED bed, fatigued, ill-appearing. Skin: Normal color, normal turgor, no icterus, no cyanosis except occasional stage ecchymoses, abrasion, bilateral lower extremity venous stasis skin changes. HEENT: AT/NC, EOMI, PERRLA, mildly dry MM, no carotid bruits or JVD noted. Lungs: Notably diminished bilaterally, greater bases, mildly increased respiratory rate, bilaterally coarse with crackles, no wheezing, no evidence of respiratory distress. Heart: Irregular irregular; no gallop, rub audible, status post AVR. Abdomen: Soft, NTTP, ND, normal BS, + HM. Extremities: No cyanosis, no clubbing, no significant distal edema, see skin. Neurological: Patient awake, alert, oriented as noted, cognitive function intact; pupils equally reactive to light and accommodation, cranial nerves grossly normal, moving all 4 extremities, no focal deficits, strength severely globally decreased secondary to acute presentation complaints. Psychiatric: Affect appears flat, fatigued, ill-appearing, no acute evidence of depressive or anxiety feelings but does have underlying history. Results Lab / Micro Data 09/10/25 23:10 09/10/25 23:10 Labs: Laboratory Results - last 24 hr 10/29/25 23:10: WBC 15.0 H, RBC 4.35 L, Hgb 10.1 L, Hct 31.8 L, MCV 73.1 L, MCH 23.2 L, MCHC 31.8 L, RDW Std Deviation 55.0 H, RDW Coeff of Torie 21.2 H, Plt Count 139 L, MPV 10.5, Immature Gran % (Auto) 1.700 H, Neut % (Auto) 88.1 H, Lymph % (Auto) 4.8 L, [place] % (Auto) 5.0, Eos % (Auto) 0.1, Baso % (Auto) 0.3, Absolute Neuts (auto) 13.3 H, Absolute Lymphs (auto) 0.72 L, Nucleated RBC % 0, Differential Comment SCANNED, Platelet Estimate SLT DEC, Anisocytosis 2+, Microcytosis 1+, Target Cells 1+, Tear Drop Cells 1+, Ovalocytes 2+, Crenated Cell 1+, Acanthocytes (Spur) RARE, Schistocytes RARE, PT 25.2 H, INR 2.2, APTT 39.2 H, Sodium 137, Potassium 4.1, Chloride 94 L, Carbon Dioxide 29.5, Anion Gap 13, BUN 36 H, Creatinine 1.20, Estim Creat Clear Calc 41.17 L, Est GFR (MDRD) Non-Af 58 L, BUN/Creatinine Ratio 29.8 H, Glucose 124 H, Calcium 9.2, Total Bilirubin 1.88 H, AST 159 H, ALT 94 H, Alkaline Phosphatase 166 H, Total Protein 6.7, Albumin 3.5, Globulin 3.3, Albumin/Globulin Ratio 1.1 09/10/25 23:32: Lactic Acid 1.7, Troponin T High Sens 102 H*, Lipase 20 09/10/25 23:37: Urine Color Yellow, Urine Clarity Clear, Urine pH 6.0, Ur Specific [place] 1.010, Urine Protein 30 H, Urine Glucose (UA) Normal, Urine Ketones Negative, Urine Occult Blood 10 H, Urine Nitrite Negative, Urine Bilirubin Negative, Urine Urobilinogen 1 H, Ur Leukocyte Esterase 100 H, Urine RBC 0-5 SEEN, Urine WBC 0-5 SEEN, Ur Squamous Epith Cells 0-5 SEEN, Ur Transition Epith Cell 0-5 SEEN, Ur Renal Epithelial Cell 5-10 SEEN, Amorphous Sediment 2+, Urine Bacteria 2+, Hyaline Casts 0-5 SEEN, Urine Mucus 0 SEEN 09/11/25 01:12: Troponin T Hi Sens 2 Hr 96 H* Micro: Microbiology 09/10/25 23:30 Mucosa - Nose SARS-CoV-2, Influenza & RSV (PCR) - Final Rhythm Strip Rhythm Strip: A-fib Rate: 122 Ectopy: None Imaging Radiology Impression Chest X-Ray 09/10/25 11:55 IMPRESSION: Again are noted changes from prior metallic valve replacement. Unremarkable median sternotomy wires. Unchanged blunting of the costophrenic angles, probably adhesions versus minimal bilateral pleural effusions. Decreased bilateral basilar pulmonary infiltrates. Enlarged cardiac silhouette. Reading Location[facility] [place] [id number] Chest/Abdomen/Pelvis CT 09/11/25 00:21 IMPRESSION: Bilateral pleural thickening. Minimal bilateral pleural effusions. Passive atelectatic airspace disease of the lower lobes. Bilateral basilar multifocal ground-glass densities of the lungs, probably multifocal pneumonia, not present on prior exam. Mild bilateral basilar bronchiectatic changes. Mild cardiomegaly. Changes from prior aortic valve replacement. Mildly prominent mediastinal lymph nodes are noted with the largest measuring 1.3 cm. Small sliding hiatal hernia. Diffuse thickening of the stomach suggestive of gastritis. Dilated supra hepatic IVC suggestive of dysfunction of the right cardiac cavities. Hepatomegaly. Diffuse irregularity of the hepatic contour, probably secondary to chronic parenchymal liver disease. Mild splenomegaly. Thickened gallbladder with surrounding mild amount of free fluid, probably secondary to chronic parenchymal liver disease. Mild free ascitic fluid in the abdomen and pelvis. Uncomplicated colonic diverticulosis. Scattered right renal simple cysts are noted with the largest measuring 1.5 cm. Moderate prostatomegaly. Diffuse thickening of the wall of the bladder. Chronic bladder outlet obstruction versus cystitis. Mildly prominent retroperitoneal lymph nodes are noted with the largest measuring 1.2 cm. Mildly prominent rai hepatis lymph nodes are noted with the largest measuring 1.2 cm, probably reactive. Scattered prostatic calcifications. Mild osteopenia. Moderate diffuse spondylosis. Unremarkable metallic prosthesis of the right hip. Reading Location[facility] Assessment & Plan Assessment/Plan (1) Sepsis: (2) Pneumonia: PLAN: Plan The patient is an 89 y/o M w/ PMHx: Chronic Hypoxic Respiratory Failure (2L NC)BPH with obstructive pathology, PAF, CAD status post CABG, Valvular heart disease, HTN, HLD, Diabetes melitis type II, Chronic anemia/Fe deficiency anemia, CKD stage II per GFR trending, Anxiety and Depression who presents to the [facility] ED on 09/10/2025 with history of onset of dyspnea over the last 2 days with increased coughing with noted yellow-green phlegm with reportedly SBP 60/30 on an auto machine at skilled facility however manual with noted 90/58 with EMS repeat vitals more appropriate with significant bilateral rails prompting transition to ED for further evaluation. #1. Acute Sepsis secondary to Acute BL multifocal pneumonia, possibly gram-negative/gram-positive organism (Hypotensive with SBP less than 90, tachycardic,elevated WBC with L shift) with chronic underlying hypoxic respiratory failure normally on 2 L NC: Will admit to the ICU per protocol, will consult cleaning crew member per protocol, maintain on oxygen with wean as tolerated to home oxygen supplementation, continue ATC duonebs, PRN albuterol, maintained on IV Zosyn and IV vancomycin with pending MRSA screen requested will continue to encourage HOB, IS parameters w/ pending sputum cultures, full respiratory viral panel and urine antigens. Bld cx x 2 obtained in the ED. Will consult PT/OT/ST/case management for discharge planning. #2. Indeterminate cardiac enzyme, suspect demand related with acute presentation #1: EKG with atrial flutter with rate 122 with variable AV block with T wave inversion in aVL with flattening in 1 and V3 with no other acute changes aside from tachycardia compared to previously, CXR as noted above, initial trop 102 with repeat delta 96. Will maintain monitored bed with serial cardiac enzymes and EKGs as needed. Magnesium level requested. Will continue Eliquis, statin, holding hypertensive regimen as noted. Will monitor further trending and if rises significantly low threshold to obtain echocardiogram. #3. Mild hyperbilirubinemia with chronic transaminitis: Admission T. bili 1.88, AST/ALT 159/94, alk phos 166, previous bilirubin not markedly elevated however LFTs have previously been elevated, will repeat CMP in the a.m. and if elevates further low threshold to obtain liver/GB ultrasound to assure not an additional source for current infectious presentation in addition to #1. #4. PAF/Flutter with RVR: EKG with atrial flutter with rate 122 with variable AV block with T wave inversion in aVL with flattening in 1 and V3 with no other acute changes aside from tachycardia compared to previously. Will continue patient home Eliquis regimen, previous history per cardiology records of cardioversion. Will continue to monitor blood pressure and initiate metoprolol as able, currently rate improved, will continue to monitor, will continue to cycle cardiac enzymes, magnesium level requested. #5. HFpEF: Will continue patient home Eliquis, statin, given hypotension in the ED will temporarily hold hypertensive regimen, add back once appropriate, most recent echocardiogram noted 10/11/2024 with LV septal wall motion consistent with bundle branch block, normal systolic function, estimated LVEF 55%, stage III diastolic dysfunction with high left atrial pressure, severe biatrial dilatation, mild MVI, bioprosthetic AV mean peak gradient 13.5 mmHg, mild to moderate TVI, RV systolic pressure 58 mmHg. #6. CAD: Status post CABG with VILLALBA to LAD, SVG to RCA, will continue patient home Eliquis, statin, temporarily holding metoprolol given hypotension in the ED, add back once appropriate, not on EWI inhibitor/ARB per current list. #7. Valvular heart disease: History of aortic stenosis status post AV replacement, most recent echocardiogram noted 10/11/2024 with LV septal wall motion consistent with bundle branch block, normal systolic function, estimated LVEF 55%, stage III diastolic dysfunction with high left atrial pressure, severe biatrial dilatation, mild MVI, bioprosthetic AV mean peak gradient 13.5 mmHg, mild to moderate TVI, RV systolic pressure 58 mmHg. #8. Chronic anemia, most recently noted to be microcytic/iron deficiency anemia: Admission hemoglobin 10.1, MCV 73.1, baseline hemoglobin primarily 9-10, continue to trend, will continue iron supplementation. #9. Chronic Kidney Disease Stage II per GFR trending: Admission BUN/Cr 36/1.0, GFR 58, baseline renal function primarily 0.8-1.1, repeat BMP in AM. #10. Anxiety and depression: Will continue patient home sertraline and clonazepam regimen however low threshold to hold for vital signs alteration/sedation. #11. Hypertension: Will temporally hold hypertensive regimen given low blood pressure in the ED. Add back once appropriate. #12. Hyperlipidemia: Continue home statin regimen. AM FLP. #13. BPH with obstructive pathology: Will continue patient home Proscar and Flomax home regimen. #14. Diabetes mellitus type II: Hold oral home regimen, ADA diet, accu checks w/ ISS. #15. DVT prophylaxis: Will continue patient home Eliquis regimen. #16. CODE status: Per facillity paperwork DNR-CCA, no intubation. Sepsis Attestation Sepsis Alert: Yes Sepsis Attestation: Agree w/Sepsis Date exam was performed: 08/11/25 Time exam was performed: 23:26 Possible Source of Sepsis: Pulmonary Sepsis Organ Dysfunction Criteria Present: SBP < 90 mmHg or MAP < 65 mmHg and Lactic Acid > 2 mmol/L Fluid Resuscitation Fluid resuscitation indicated?: Yes Fluid Resuscitation ordered: Lesser volume fluid bolus ordered Amount of fluid ordered: 1,500 Reason for lesser fluid bolus:: Heart failure Sepsis Note Date exam was performed: 09/11/25 Time exam was performed: 02:37 Sepsis Attestation: Sepsis re-evaluation was performed Response to fluids: Fluid responsive hypotension Charges/Coding Visit Charges Inpatient E&M: 91759 Init Hosp L3
[2025-09-11 03:03] LABS: Magnesium 1.6 mg/dL (1.5-2.2)
[2025-09-11] MEDS: 0.9% Saline Lock 10 ML Syringe IV ×2 (04:22→13:53)
[2025-09-11 04:27] LABS: Hematocrit 32.1 % (40-54); Hemoglobin 10.0 g/dL (13.0-16.5); Immature Granulocytes Count 0.110 X10^3/uL (0.0-0.0); Mean Corp Hgb Conc 31.2 g/dL (32-36); Mean Corpuscular Volume 74.1 fL (80-94); Mean Platelet Vol. 10.0 fl (6.2-12.0); NRBC Flagged by Analyzer 0 % (0-5); POSITIVE DIFFERENTIAL YES; POSITIVE MORPHOLOGY YES; Platelet Count 131 K/mm3 (150-450); RBC Distribution Width CV 21.3 % (11.6-14.6); RBC Distribution Width SD 55.2 fl (35.1-43.9); Red Blood Count 4.33 M/mm3 (4.6-6.2); White Blood Count 13.4 K/mm3 (4.4-11.0)
[2025-09-11 04:33] LABS: Differential Indicated SCAN CRITERIA MET
[2025-09-11] MEDS: 0.9% Normal Saline (1000mL) 1,000 ML 75 ML IV (04:33)
--- NOTE | 2025-09-11 05:06 | PCM.RX.CS ---
Consult Antibiotic Management Pharmacy has been consulted to manage selected antibiotic: Vancomycin Type of Intervention Type of Consult: New start Microbiology Microbiology: Microbiology 09/10/25 23:30 Mucosa - Nose SARS-CoV-2, Influenza & RSV (PCR) - Final Dosing Weight Weight used for dosin.7 kg Estimated Creatinine Clearance Estimated Creatinine Clearance: 41.47 Goal Trough Goal Trough: 15-20 mcg/mL Pharmacy Plan for Drug Dosing Pharmacy Plan for Drug Dosing: Pharmacy Service will continue to monitor and adjust dosing as required. ER DOSE 2GM GIVEN 09/11 @ 0140. START 500MG Q12H AND DRAW TROUGH PRIOR TO 4TH DOSE Follow-Up Labs Follow-Up Labs: Trough: Vancomycin Date/Time Labs Ordered Labs to be done on [date and time ordered]: 09/12 @ 8690
[2025-09-11 05:22] LABS: Acanthocytes RARE; Anisocytosis 2+; Differential Comment SCANNED; Microcytosis 1+
[2025-09-11 05:23] LABS: Schistocytes RARE; Target Cells RARE; Tear Drop Cell RARE
[2025-09-11 05:52] LABS: AST(SGOT) 131 U/L (<=37); Alanine Aminotransfer ALT/SGPT 80 U/L (<=46); Albumin, Serum 2.9 g/dL (3.4-4.8); Alkaline Phosphatase 133 U/L (40-129); Anion Gap 12 (5-15); BUN 30 mg/dL (4-19); BUN/Creat Ratio 31.2 RATIO (10-20); Calcium,Total 7.5 mg/dL (7.6-11.0); Carbon Dioxide 24.1 mmol/L (21.0-32.0); Chloride 102 mmol/L (98-108); Estimated Creatinine Clearance 52.64 ml/min (50-250); Globulin 2.8 g/dL (2.2-4.2); Glucose 126 mg/dL (70-99); Potassium 3.2 mmol/L (3.3-5.1)
[2025-09-11 05:53] LABS: Troponin T High Sens 4 HR 85 ng/L (<=22)
[2025-09-11] MEDS: Piperacil/Tazobactam 3.375 GM in 0.9% Normal Saline (50mL MB+) 50 ML IV ×3 (06:09→20:51)
[2025-09-11] MEDS: 0.9% Normal Saline (250mL Bag) 250 ML 15 ML IV (06:09)
[2025-09-11 06:42] LABS: Pro- Brain NATRIURETIC PEPTIDE 15377 pg/mL (<=1800)
--- NOTE | 2025-09-11 07:24 | PN.HOSP_ITS ---
Reason for Visit
--- NOTE | 2025-09-11 07:24 | PCM.PN.HOSP ---
Reason for Visit Chief Complaint: Dyspnea, productive cough, F/C, N/V. Objective Data Objective Data Vital Signs: Vital Signs Temp Pulse Resp BP Pulse Ox O2 Del Method O2 Flow Rate 98.9 F 101 H 24 H 108/76 97 Nasal Cannula 2 09/11/25 03:28 09/11/25 07:00 09/11/25 07:00 09/11/25 07:00 09/11/25 07:00 09/11/25 07:00 09/11/25 07:00 Oxygen Flow Rate (L/min) 2 Oxygen Delivery Method Nasal Cannula Weight: 71.7 kg Body Mass Index (BMI) 23.3 Intake & Output: Intake and Output for Last 24 Hours 09/09/25 09/10/25 09/11/25 23:59 23:59 23:59 Intake Total 2260 / 2260 Output Total 400 / 400 Balance 1860 / 1860 Lab / Micro Data 09/11/25 04:00 09/11/25 04:00 Labs: Laboratory Results - last 24 hr 09/10/25 23:10: WBC 15.0 H, RBC 4.35 L, Hgb 10.1 L, Hct 31.8 L, MCV 73.1 L, MCH 23.2 L, MCHC 31.8 L, RDW Std Deviation 55.0 H, RDW Coeff of Torie 21.2 H, Plt Count 139 L, MPV 10.5, Immature Gran % (Auto) 1.700 H, Neut % (Auto) 88.1 H, Lymph % (Auto) 4.8 L, [place] % (Auto) 5.0, Eos % (Auto) 0.1, Baso % (Auto) 0.3, Absolute Neuts (auto) 13.3 H, Absolute Lymphs (auto) 0.72 L, Nucleated RBC % 0, Differential Comment SCANNED, Platelet Estimate SLT DEC, Anisocytosis 2+, Microcytosis 1+, Target Cells 1+, Tear Drop Cells 1+, Ovalocytes 2+, Crenated Cell 1+, Acanthocytes (Spur) RARE, Schistocytes RARE, PT 25.2 H, INR 2.2, APTT 39.2 H, Sodium 137, Potassium 4.1, Chloride 94 L, Carbon Dioxide 29.5, Anion Gap 13, BUN 36 H, Creatinine 1.20, Estim Creat Clear Calc 41.17 L, Est GFR (MDRD) Non-Af 58 L, BUN/Creatinine Ratio 29.8 H, Glucose 124 H, Calcium 9.2, Total Bilirubin 1.88 H, AST 159 H, ALT 94 H, Alkaline Phosphatase 166 H, Total Protein 6.7, Albumin 3.5, Globulin 3.3, Albumin/Globulin Ratio 1.1 09/10/25 23:32: Lactic Acid 1.7, Troponin T High Sens 102 H*, Lipase 20 09/10/25 23:37: Urine Color Yellow, Urine Clarity Clear, Urine pH 6.0, Ur Specific [place] 1.010, Urine Protein 30 H, Urine Glucose (UA) Normal, Urine Ketones Negative, Urine Occult Blood 10 H, Urine Nitrite Negative, Urine Bilirubin Negative, Urine Urobilinogen 1 H, Ur Leukocyte Esterase 100 H, Urine RBC 0-5 SEEN, Urine WBC 0-5 SEEN, Ur Squamous Epith Cells 0-5 SEEN, Ur Transition Epith Cell 0-5 SEEN, Ur Renal Epithelial Cell 5-10 SEEN, Amorphous Sediment 2+, Urine Bacteria 2+, Hyaline Casts 0-5 SEEN, Urine Mucus 0 SEEN 09/11/25 01:12: Magnesium 1.6, Troponin T Hi Sens 2 Hr 96 H* 09/11/25 03:51: POC Glucose 114 H 09/11/25 04:00: WBC 13.4 H, RBC 4.33 L, Hgb 10.0 L, Hct 32.1 L, MCV 74.1 L, MCH 23.1 L, MCHC 31.2 L, RDW Std Deviation 55.2 H, RDW Coeff of Torie 21.3 H, Plt Count 131 L, MPV 10.0, Immature Gran % (Auto) 0.800, Neut % (Auto) 92.7 H, Lymph % (Auto) 3.4 L, [place] % (Auto) 2.8, Eos % (Auto) 0.1, Baso % (Auto) 0.2, Absolute Neuts (auto) 12.5 H, Absolute Lymphs (auto) 0.45 L, Nucleated RBC % 0, Differential Comment SCANNED, Platelet Estimate SLT DEC, Anisocytosis 2+, Microcytosis 1+, Target Cells RARE, Tear Drop Cells RARE, Ovalocytes 1+, Acanthocytes (Spur) RARE, Schistocytes RARE, Sodium 138, Potassium 3.2 L, Chloride 102, Carbon Dioxide 24.1, Anion Gap 12, BUN 30 H, Creatinine 0.97, Estim Creat Clear Calc 52.64, Est GFR (MDRD) Non-Af 75, BUN/Creatinine Ratio 31.2 H, Glucose 126 H, Calcium 7.5 L, Total Bilirubin 1.94 H, AST 131 H, ALT 80 H, Alkaline Phosphatase 133 H, Troponin T Hi Sens 4Hr 85 H*, [place] [address] H, Total Protein 5.8 L, Albumin 2.9 L, Globulin 2.8, Albumin/Globulin Ratio 1.0 Micro: Microbiology 09/10/25 23:30 Mucosa - Nose SARS-CoV-2, Influenza & RSV (PCR) - Final Radiography Diagnostic Testing: Radiology Impression Chest X-Ray 09/10/25 11:55 IMPRESSION: Again are noted changes from prior metallic valve replacement. Unremarkable median sternotomy wires. Unchanged blunting of the costophrenic angles, probably adhesions versus minimal bilateral pleural effusions. Decreased bilateral basilar pulmonary infiltrates. Enlarged cardiac silhouette. Reading Location: [place] [address] Chest/Abdomen/Pelvis CT 09/11/25 00:21 IMPRESSION: Bilateral pleural thickening. Minimal bilateral pleural effusions. Passive atelectatic airspace disease of the lower lobes. Bilateral basilar multifocal ground-glass densities of the lungs, probably multifocal pneumonia, not present on prior exam. Mild bilateral basilar bronchiectatic changes. Mild cardiomegaly. Changes from prior aortic valve replacement. Mildly prominent mediastinal lymph nodes are noted with the largest measuring 1.3 cm. Small sliding hiatal hernia. Diffuse thickening of the stomach suggestive of gastritis. Dilated supra hepatic IVC suggestive of dysfunction of the right cardiac cavities. Hepatomegaly. Diffuse irregularity of the hepatic contour, probably secondary to chronic parenchymal liver disease. Mild splenomegaly. Thickened gallbladder with surrounding mild amount of free fluid, probably secondary to chronic parenchymal liver disease. Mild free ascitic fluid in the abdomen and pelvis. Uncomplicated colonic diverticulosis. Scattered right renal simple cysts are noted with the largest measuring 1.5 cm. Moderate prostatomegaly. Diffuse thickening of the wall of the bladder. Chronic bladder outlet obstruction versus cystitis. Mildly prominent retroperitoneal lymph nodes are noted with the largest measuring 1.2 cm. Mildly prominent rai hepatis lymph nodes are noted with the largest measuring 1.2 cm, probably reactive. Scattered prostatic calcifications. Mild osteopenia. Moderate diffuse spondylosis. Unremarkable metallic prosthesis of the right hip. Reading Location: [place] [address] Rhythm Strip Rhythm Strip: A-fib Rate: 122 Ectopy: None Physical Exam Narrative GENERAL: cooperative HEENT: Atraumatic; normocephalic EYES; Anicteric, Normal Conjunctiva NECK; supple, normal thyroid, RESPIRATORY: Diminished to auscultation CARDIOVASCULAR: Regular S1 S2, GI: soft, normoactive bowel sounds, : No Renal angle tenderness; EXTREMITIES: No edema, no clubbing, MUSCULOSKELETAL: no muscle wasting NEURO: Awake; no lateralizing signs. SKIN: No Rash PSYCH; Flat affect Assessment & Plan Assessment/Plan (1) Sepsis: (2) Pneumonia: PLAN: Plan Patient is an 89-year-old gentleman with multiple comorbidities from an extended care facility admitted with hypotension and assessment of sepsis secondary to bilateral pneumonia made admitted to the intensive care unit where patient is being managed per protocol. Patient seen and examined. Initial assessment including history and physical reviewed
--- NOTE | 2025-09-11 07:51 | ECHOD_ITS ---
Reason For Study ECHO/Echo Complete
[2025-09-11] MEDS: APIXABAN 5 MG TABLET PO ×2 (09:06→20:55)
[2025-09-11] MEDS: Senna/Docusate Sodium 1 Tablet PO (09:07)
--- NOTE | 2025-09-11 09:45 | EX.PCM.CONCC ---
Assessment & Plan Assessment/Plan (1) SOB (shortness of breath): PLAN: Plan RECOMMENDATIONS: 1. Low threshold to discontinue antibiotics. If blood and urine cultures are negative over the next 24 to 48 hours, will stop antimicrobials. 2. Obtain follow-up echocardiogram. 3. Stop bronchodilators and continuous IV fluids. 4. Supplemental oxygen per baseline. 5. Encourage incentive spirometer use and mobilize patient as tolerated. IMPRESSIONS: 1. Shortness of breath Most likely secondary to acute decompensated heart failure. I have a low index of suspicion for underlying pneumonia. The patient currently denies the presence of productive cough. Given that blood and urine cultures were already sent, we will continue antibiotics over the next 24 to 48 hours. If cultures are negative, antibiotics will be discontinued. In light of the patient's troponin elevation and increased BNP, we will obtain follow-up echocardiogram. I would have a low threshold to obtain a cardiology consultation in this particular setting. Continuous IV fluids will be discontinued. 2. NSTEMI/coronary artery disease status post CABG/paroxysmal atrial flutter/heart failure with preserved ejection fraction/valvular heart disease The patient has a known history of coronary artery disease status post CABG. Accordingly, will obtain follow-up echocardiogram, with low threshold to obtain cardiology consultation. 3. Anemia/chronic kidney disease/hypertension/hyperlipidemia/BPH/diabetes mellitus Complicates care, management, recovery and prognosis. Agree with temporarily holding antihypertensives. Remainder of supportive care as noted above. This note was generated with [employer] dictation software. It may contain incorrect words, spelling, and punctuation that were not noted in checking the note before signing. HPI Consult Data Date of Consult: 09/11/25 HPI Narrative Reason for Consultation: Sepsis HPI Narrative: The patient is an 89-year-old male, with a history as outlined below, who presented to the emergency department via EMS on September 10 with shortness of breath. The patient has an apparent history of chronic hypoxemic respiratory failure with a baseline oxygen requirement of 2 L/min along with paroxysmal atrial fibrillation, coronary artery disease status post CABG, diabetes mellitus, hypertension and hyperlipidemia. The patient reported to me that he has not had any significant cough or sputum production and denied any fevers or chills. The patient currently resides at the [facility]. The patient was last seen in the cardiology clinic on September 09. On presentation to the emergency department, the patient was noted to be afebrile but was tachycardic and tachypneic with a presenting blood pressure of 90/60 mmHg. The patient was stable on his baseline oxygen requirement of 2 L/min. Laboratory evaluation was notable for a white blood cell count of 15,000 with a hemoglobin of 10.1 g/dL and platelet count of 139,000. INR was noted to be 2.2. Chemistry profile was unremarkable. Lactate was within normal limits. Total bilirubin was elevated at 1.8. Troponin was elevated at 102 with a BNP of 15,377. Urine analysis was unremarkable. CT chest/abdomen/pelvis was obtained which demonstrated bilateral pleural thickening with passive atelectasis in the lower lobes along with bronchiectatic changes bilaterally and mild cardiomegaly. A small hiatal hernia was noted. EKG demonstrated atrial flutter with a rate of 122 bpm. In the emergency department, the patient received supplemental IV fluid hydration and was started on antimicrobials. ON LICENSE OF [facility] Medical History Pleural effusion CHF (congestive heart failure) Congestive heart failure Carotid artery bruit Hypoglycemia associated with type 2 diabetes mellitus Frequent falls Elevated LFTs Physical debility BPH (benign prostatic hyperplasia) Vitamin D deficiency Chronic renal failure, stage 2 (mild) Thrombocytopenia Significant closed head trauma within past 3 months Abnormal LFTs Chronic diastolic (congestive) heart failure Dehydration Acute on chronic renal failure Hyperkalemia Hyponatremia Abrasions of multiple sites Fall Bradycardia Near syncope Obesity Secondary pulmonary arterial hypertension Paroxysmal atrial fibrillation Postoperative atrial fibrillation (01/01/19) Essential (primary) hypertension Anxiety and depression Thyroid nodule Stenosis of right subclavian artery Pleural effusion on left Iron deficiency anemia Type 2 diabetes mellitus Left bundle branch block Non-rheumatic aortic stenosis Atherosclerosis of coronary artery of [place] heart without angina pectoris Hyperlipidemia Home Medications ?Medication ?Instructions ?Recorded ?Last Taken ?Type vitamins A,C,Q-fkdw-ctstuv 4,296 1 cap PO BID EYE HEALTH 03/07/19 10/25/19 History mcg-226 mg-90 mg capsule ouixsrze-dw-tpyxk 300 mcg-K 60 1 tab PO DAILY supplement 10/25/19 10/25/19 History mcg-lycop 600 mcg-lutein 300 mcg tablet tamsulosin 0.4 mg capsule 0.8 mg PO DAILY@1730 urinary 11/25/23 Unknown History retention finasteride 5 mg tablet (Proscar) 5 mg PO DAILY prostate #30 tabs 11/27/23 Unknown Rx metoprolol tartrate 25 mg tablet 12.5 mg (1/2 x 25 mg) PO BID high 02/20/24 Unknown Rx blood pressure #90 tabs atorvastatin 40 mg tablet 40 mg PO QHS antihyperlipidemics 10/11/24 Unknown History ferrous sulfate 325 mg (65 mg 325 mg PO BID supplement 11/01/24 Unknown History iron) tablet (FeroSul) acetaminophen 500 mg tablet 1,000 mg (2 x 500 mg) PO Q6H PRN 11/19/24 Unknown Rx pain 1-10 #0 tabs apixaban 5 mg tablet (Eliquis) 5 mg PO BID #0 tabs 11/19/24 Unknown Rx potassium chloride 20 mEq 20 meq PO DAILYCM #0 tabs 11/19/24 Unknown Rx tablet,extended release(part/cryst) sennosides 8.6 mg-docusate sodium 1 tab PO DAILY #0 tabs 11/19/24 Unknown Rx 50 mg tablet (Stimulant Laxative Plus) cetirizine 5 mg tablet 5 mg PO QDAY PRN allergy symptoms 08/14/25 Unknown History metformin 500 mg tablet 500 mg PO BID 08/14/25 Unknown History sertraline 100 mg tablet (Zoloft) 150 mg PO QDAY 08/14/25 Unknown History spironolactone 25 mg tablet 25 mg PO QDAY #30 tabs 08/14/25 Unknown Rx trazodone 50 mg tablet 50 mg PO QHS PRN sleep 08/14/25 Unknown History bumetanide 2 mg tablet 3 mg (1.5 x 2 mg) PO BID 90 days 09/09/25 Unknown Rx #270 tabs dapagliflozin propanediol 10 mg 10 mg PO QDAY #90 tabs 09/09/25 Unknown Rx tablet (Farxiga) clonazepam 0.5 mg tablet 0.5 mg PO Q12H 09/10/25 Unknown History prednisone 20 mg tablet 40 mg PO Q12H 09/10/25 Unknown History Allergy/AdvReac Type Severity Reaction Status Date / Time No Known Allergies Allergy Verified 08/14/25 08:47 Family History Father CVA (cerebral vascular accident) Mother COPD (chronic obstructive pulmonary disease) Surgical History History of open reduction and internal fixation (ORIF) procedure History of cataract surgery History of hip replacement History of thoracentesis (01/05/19) History of left heart catheterization (10/31/18) H/O aortic valve replacement (01/01/19) H/O coronary artery bypass surgery (01/01/19) Social History household members: none Smoking Status: Former smoker quit date: 11/13/03 how long ago did patient quit smoking: cigars Lab / Micro Data 09/11/25 04:00 09/11/25 04:00 Labs: Laboratory Results - last 24 hr 09/10/25 23:10: WBC 15.0 H, RBC 4.35 L, Hgb 10.1 L, Hct 31.8 L, MCV 73.1 L, MCH 23.2 L, MCHC 31.8 L, RDW Std Deviation 55.0 H, RDW Coeff of Torie 21.2 H, Plt Count 139 L, MPV 10.5, Immature Gran % (Auto) 1.700 H, Neut % (Auto) 88.1 H, Lymph % (Auto) 4.8 L, [place] % (Auto) 5.0, Eos % (Auto) 0.1, Baso % (Auto) 0.3, Absolute Neuts (auto) 13.3 H, Absolute Lymphs (auto) 0.72 L, Nucleated RBC % 0, Differential Comment SCANNED, Platelet Estimate SLT DEC, Anisocytosis 2+, Microcytosis 1+, Target Cells 1+, Tear Drop Cells 1+, Ovalocytes 2+, Crenated Cell 1+, Acanthocytes (Spur) RARE, Schistocytes RARE, PT 25.2 H, INR 2.2, APTT 39.2 H, Sodium 137, Potassium 4.1, Chloride 94 L, Carbon Dioxide 29.5, Anion Gap 13, BUN 36 H, Creatinine 1.20, Estim Creat Clear Calc 41.17 L, Est GFR (MDRD) Non-Af 58 L, BUN/Creatinine Ratio 29.8 H, Glucose 124 H, Calcium 9.2, Total Bilirubin 1.88 H, AST 159 H, ALT 94 H, Alkaline Phosphatase 166 H, Total Protein 6.7, Albumin 3.5, Globulin 3.3, Albumin/Globulin Ratio 1.1 09/10/25 23:32: Lactic Acid 1.7, Troponin T High Sens 102 H*, Lipase 20 09/10/25 23:37: Urine Color Yellow, Urine Clarity Clear, Urine pH 6.0, Ur Specific [place] 1.010, Urine Protein 30 H, Urine Glucose (UA) Normal, Urine Ketones Negative, Urine Occult Blood 10 H, Urine Nitrite Negative, Urine Bilirubin Negative, Urine Urobilinogen 1 H, Ur Leukocyte Esterase 100 H, Urine RBC 0-5 SEEN, Urine WBC 0-5 SEEN, Ur Squamous Epith Cells 0-5 SEEN, Ur Transition Epith Cell 0-5 SEEN, Ur Renal Epithelial Cell 5-10 SEEN, Amorphous Sediment 2+, Urine Bacteria 2+, Hyaline Casts 0-5 SEEN, Urine Mucus 0 SEEN 09/11/25 01:12: Magnesium 1.6, Troponin T Hi Sens 2 Hr 96 H* 09/11/25 03:51: POC Glucose 114 H 09/11/25 04:00: WBC 13.4 H, RBC 4.33 L, Hgb 10.0 L, Hct 32.1 L, MCV 74.1 L, MCH 23.1 L, MCHC 31.2 L, RDW Std Deviation 55.2 H, RDW Coeff of Torie 21.3 H, Plt Count 131 L, MPV 10.0, Immature Gran % (Auto) 0.800, Neut % (Auto) 92.7 H, Lymph % (Auto) 3.4 L, [place] % (Auto) 2.8, Eos % (Auto) 0.1, Baso % (Auto) 0.2, Absolute Neuts (auto) 12.5 H, Absolute Lymphs (auto) 0.45 L, Nucleated RBC % 0, Differential Comment SCANNED, Platelet Estimate SLT DEC, Anisocytosis 2+, Microcytosis 1+, Target Cells RARE, Tear Drop Cells RARE, Ovalocytes 1+, Acanthocytes (Spur) RARE, Schistocytes RARE, Sodium 138, Potassium 3.2 L, Chloride 102, Carbon Dioxide 24.1, Anion Gap 12, BUN 30 H, Creatinine 0.97, Estim Creat Clear Calc 52.64, Est GFR (MDRD) Non-Af 75, BUN/Creatinine Ratio 31.2 H, Glucose 126 H, Calcium 7.5 L, Total Bilirubin 1.94 H, AST 131 H, ALT 80 H, Alkaline Phosphatase 133 H, Troponin T Hi Sens 4Hr 85 H*, [place] [address] H, Total Protein 5.8 L, Albumin 2.9 L, Globulin 2.8, Albumin/Globulin Ratio 1.0 09/11/25 09:04: POC Glucose 134 H Micro: Microbiology 09/11/25 05:00 Mucosa - Nasopharyngeal Respiratory Panel (PCR) - Final 09/10/25 23:37 Urine, Clean Catch Streptococcus pneumoniae Antigen (M - Final 09/11/25 04:05 Nasal Secretion MRSA (PCR) - Final 09/10/25 23:30 Mucosa - Nose SARS-CoV-2, Influenza & RSV (PCR) - Final Rhythm Strip Rhythm Strip: A-fib Rate: 122 Ectopy: None Imaging Radiology Impression Chest X-Ray 09/10/25 11:55 IMPRESSION: Again are noted changes from prior metallic valve replacement. Unremarkable median sternotomy wires. Unchanged blunting of the costophrenic angles, probably adhesions versus minimal bilateral pleural effusions. Decreased bilateral basilar pulmonary infiltrates. Enlarged cardiac silhouette. [facility]/Pelvis CT 09/11/25 00:21 IMPRESSION: Bilateral pleural thickening. Minimal bilateral pleural effusions. Passive atelectatic airspace disease of the lower lobes. Bilateral basilar multifocal ground-glass densities of the lungs, probably multifocal pneumonia, not present on prior exam. Mild bilateral basilar bronchiectatic changes. Mild cardiomegaly. Changes from prior aortic valve replacement. Mildly prominent mediastinal lymph nodes are noted with the largest measuring 1.3 cm. Small sliding hiatal hernia. Diffuse thickening of the stomach suggestive of gastritis. Dilated supra hepatic IVC suggestive of dysfunction of the right cardiac cavities. Hepatomegaly. Diffuse irregularity of the hepatic contour, probably secondary to chronic parenchymal liver disease. Mild splenomegaly. Thickened gallbladder with surrounding mild amount of free fluid, probably secondary to chronic parenchymal liver disease. Mild free ascitic fluid in the abdomen and pelvis. Uncomplicated colonic diverticulosis. Scattered right renal simple cysts are noted with the largest measuring 1.5 cm. Moderate prostatomegaly. Diffuse thickening of the wall of the bladder. Chronic bladder outlet obstruction versus cystitis. Mildly prominent retroperitoneal lymph nodes are noted with the largest measuring 1.2 cm. Mildly prominent rai hepatis lymph nodes are noted with the largest measuring 1.2 cm, probably reactive. Scattered prostatic calcifications. Mild osteopenia. Moderate diffuse spondylosis. Unremarkable metallic prosthesis of the right hip. [facility] Charges/Coding Visit Charges Inpatient E&M: 87586 Init Hosp L3
--- NOTE | 2025-09-11 09:49 | CASEMGMT ---
Noted the pt is from the [facility]. RN CM to the pt room to discuss DC planning. Pt states that he prefers to return to the [facility] once medically ready and declines wanting to review a list of other local in-network SNFs. [facility] notified.
--- NOTE | 2025-09-11 11:16 | CASEMGMT ---
[facility]. Kristen Rodriguez DC Planning Asst.
--- NOTE | 2025-09-11 13:09 | CHAPLAIN ---
Type of Pastoral Visit ___ Initial Visit ___ Follow-up Visit ___ On-call Visit ___ General Patient Visit ___ Spiritual Assessment ___ Family Conference ___ Bereavement ___ Rapid Response ___ Code Blue ___ Other (describe below) Pastoral Care Referral From _x__ Patient ___ Family ___ Nurse ___ Physician ___ Secretary Of State ___ Deli Cook ___ Other (describe below) Sacrament/Intervention _x__ Active listening ___ Anointing ___ Islam ___ Bereavement ___ Communion ___ Asiya exploration ___ _x__ Life review _x_ Prayer ___ Reconciliation ___ Sacrament of Sick _x__ Supportive presence ___ Wedding ___ Other (describe below) Pastoral Comments patient is eating lunch and continues until he is ready to stop; pt asks for assistance with moving tray and finding things for him; pt reviews his living situation and what support he has; pt admits that things are not going very well right now and is offered time to discuss and give emotions; pt prefers to have prayer spoken at this time
[2025-09-11] MEDS: Ensure Plus High Protein 120 ML LIQUID PO ×2 (14:13→20:08)
--- NOTE | 2025-09-11 20:25 | PCM.CONS.C ---
Assessment & Plan Assessment/Plan (1) CHF (congestive heart failure), NYHA class III: PLAN: He does present with congestive heart failure with reduced ejection fraction which appears to be global. I suspect the above is on the basis of the atrial fibrillation with a rapid ventricular response rate. However it would not be surprising if one of his bypass grafts is not functioning very well. Recommendation at this time is to optimize his fluid management with diuresis Slowing down his heart rate Getting him on guideline directed medical therapy (2) H/O coronary artery bypass surgery: PLAN: He is status post coronary bypass surgery and at this time does not appear to be a good candidate for any intervention. (3) Atrial fibrillation: QUALIFIERS: Atrial fibrillation type: persistent (not longstanding) Qualified Code(s): I48.19 - Other persistent atrial fibrillation PLAN: He does have atrial fibrillation with a rapid ventricular response rate. He is anticoagulated I would recommend that we try and slow down his heart rate at this time with intravenous amiodarone and then switch him over. As you know he has declined cardioversion in the past (4) Elevated troponin: PLAN: He does have a mildly elevated troponin but I suspect the above is from demand ischemia. At this time there are no plans for any intervention. (5) Left bundle branch block: PLAN: He does have a bundle branch block morphology. Will continue to follow the above. (6) H/O aortic valve replacement: PLAN: He does have a history of aortic valve replacement and my recommendation at this time is to continue observation. His echocardiogram did not demonstrate any significant abnormalities. Thank you for allowing me to participate in the care of your patient. Please don't hesitate to call if any issues arise. HPI Consult Data Date of Consult: 09/11/25 HPI Narrative HPI Narrative: TIRSO CALDERÓN, is a 89 M who presented to the emergency room with complaints of shortness of breath which had been going on over the last few weeks and worsening more recently. In the emergency room he was initially noted to be short of breath mildly hypotensive it was thought that this was sepsis and he was admitted to the intensive care unit. He does have a history of coronary artery disease status post coronary bypass surgery in 2019 with a left internal mammary artery to the left anterior descending artery, saphenous vein graft to the right coronary artery. He also has a history of aortic valve stenosis and aortic valve replacement. Postoperatively he had developed atrial fibrillation in addition to his hypertension hyperlipidemia and right subclavian stenosis. He had been seen in the office by electrophysiology for his atrial fibrillation and it was recommended that he continue with anticoagulation with and offering for DC cardioversion. The patient however declined the above. He was back [facility] this happened and now he is in the hospital. He says that he denies any chest pain he is short of breath with mild exertion and does not feel any palpitations. His EKG had demonstrated sinus rhythm with a bundle branch block morphology and his cardiac enzymes were minimally elevated. [facility] Medical History (Updated 09/11/25 @ 20:[address] Thompson Diggs MD) Pleural effusion CHF (congestive heart failure) Congestive heart failure Carotid artery bruit Hypoglycemia associated with type 2 diabetes mellitus Frequent falls Elevated LFTs Physical debility BPH (benign prostatic hyperplasia) Vitamin D deficiency Chronic renal failure, stage 2 (mild) Thrombocytopenia Significant closed head trauma within past 3 months Abnormal LFTs Chronic diastolic (congestive) heart failure Dehydration Acute on chronic renal failure Hyperkalemia Hyponatremia Abrasions of multiple sites Fall Bradycardia Near syncope Obesity Secondary pulmonary arterial hypertension Paroxysmal atrial fibrillation Postoperative atrial fibrillation (01/01/19) Essential (primary) hypertension Anxiety and depression Thyroid nodule Stenosis of right subclavian artery Pleural effusion on left Iron deficiency anemia Type 2 diabetes mellitus Left bundle branch block Non-rheumatic aortic stenosis Atherosclerosis of coronary artery of [place] heart without angina pectoris Hyperlipidemia Home Medications ?Medication ?Instructions ?Recorded ?Last Taken ?Type vitamins A,C,Q-vowa-oseygh 4,296 1 cap PO BID [facility] 03/07/19 10/25/19 History mcg-226 mg-90 mg capsule ihmbhxow-ql-ymdio 300 mcg-K 60 1 tab PO DAILY supplement 10/25/19 10/25/19 History mcg-lycop 600 mcg-lutein 300 mcg tablet tamsulosin 0.4 mg capsule 0.8 mg PO DAILY@1730 urinary 11/25/23 Unknown History retention finasteride 5 mg tablet (Proscar) 5 mg PO DAILY prostate #30 tabs 11/27/23 Unknown Rx metoprolol tartrate 25 mg tablet 12.5 mg (1/2 x 25 mg) PO BID high 02/20/24 Unknown Rx blood pressure #90 tabs atorvastatin 40 mg tablet 40 mg PO QHS antihyperlipidemics 10/11/24 Unknown History ferrous sulfate 325 mg (65 mg 325 mg PO BID supplement 11/01/24 Unknown History iron) tablet (FeroSul) acetaminophen 500 mg tablet 1,000 mg (2 x 500 mg) PO Q6H PRN 11/19/24 Unknown Rx pain 1-10 #0 tabs apixaban 5 mg tablet (Eliquis) 5 mg PO BID #0 tabs 11/19/24 Unknown Rx potassium chloride 20 mEq 20 meq PO DAILYCM #0 tabs 11/19/24 Unknown Rx tablet,extended release(part/cryst) sennosides 8.6 mg-docusate sodium 1 tab PO DAILY #0 tabs 11/19/24 Unknown Rx 50 mg tablet (Stimulant Laxative Plus) cetirizine 5 mg tablet 5 mg PO QDAY PRN allergy symptoms 08/14/25 Unknown History metformin 500 mg tablet 500 mg PO BID 08/14/25 Unknown History sertraline 100 mg tablet (Zoloft) 150 mg PO QDAY 08/14/25 Unknown History spironolactone 25 mg tablet 25 mg PO QDAY #30 tabs 08/14/25 Unknown Rx trazodone 50 mg tablet 50 mg PO QHS PRN sleep 08/14/25 Unknown History bumetanide 2 mg tablet 3 mg (1.5 x 2 mg) PO BID 90 days 09/09/25 Unknown Rx #270 tabs dapagliflozin propanediol 10 mg 10 mg PO QDAY #90 tabs 09/09/25 Unknown Rx tablet (Farxiga) clonazepam 0.5 mg tablet 0.5 mg PO Q12H 09/10/25 Unknown History prednisone 20 mg tablet 40 mg PO Q12H 09/10/25 Unknown History Allergy/AdvReac Type Severity Reaction Status Date / Time No Known Allergies Allergy Verified 08/14/25 08:47 Family History Father CVA (cerebral vascular accident) Mother COPD (chronic obstructive pulmonary disease) Surgical History (Updated 09/11/25 @ 20:[address] Thompson Diggs MD) H/O aortic valve replacement (01/01/19) History of open reduction and internal fixation (ORIF) procedure History of cataract surgery History of hip replacement History of thoracentesis (01/05/19) History of left heart catheterization (10/31/18) H/O coronary artery bypass surgery (01/01/19) Social History household members: none Smoking Status: Former smoker quit date: 11/13/03 how long ago did patient quit smoking: cigars ROS Constitutional Constitutional: Denies fever(s) or weight loss Eyes Eyes: Reports systems reviewed and no addt'l complaints, except as documented ENT HEENT: Reports systems reviewed and no addt'l complaints, except as documented Cardiovascular Cardiovascular: Denies chest pain at rest, chest pain with activity, dyspnea at rest, dyspnea on exertion, edema, palpitations or paroxysmal nocturnal dyspnea Respiratory/Chest Respiratory/Chest: Denies dyspnea on exertion, productive cough, shortness of breath at rest or shortness of breath with exertion Gastrointestinal Gastrointestinal: Denies change in bowel habits, nausea, vomiting or weight changes Genitourinary Genitourinary: Denies difficulty urinating Musculoskeletal Musculoskeletal: Denies joint stiffness or muscle weakness Integumentary Integumentary: Denies lesions Neurologic Neurologic: Denies dizziness or syncope Psychiatric Psychiatric: Denies anxiety Endocrine Endocrinology: Denies excessive sweating or fatigue Hematologic/Lymphatic Hematologic/Lymphatic: Denies anemia Allergic/Immunologic Allergic/Immunologic: Denies seasonal rhinorrhea Physical Exam Const alert and oriented x3 HEENT normocephalic Eyes PERRL Chest inspection of chest normal Resp Auscultation: diminished lung sounds Cardio Rhythm: abnormal rhythm irregularly irregular Extremity normal to inspection Objective Data Vital Signs: Vital Signs Temp Pulse Resp BP Pulse Ox O2 Del Method O2 Flow Rate 96.6 F L 93 18 103/79 99 Nasal Cannula 2 09/11/25 14:00 09/11/25 16:00 09/11/25 16:00 09/11/25 14:00 09/11/25 14:59 09/11/25 16:00 09/11/25 16:00 Oxygen Flow Rate (L/min) 2 Oxygen Delivery Method Nasal Cannula Weight: 158 lb 1.143 oz Body Mass Index (BMI) 23.3 Intake & Output: Intake and Output for Last 24 Hours 09/09/25 09/10/25 09/11/25 23:59 23:59 23:59 Intake Total 4242.5 / 4242.5 Output Total 900 / 900 Balance 3342.5 / 3342.5 Lab / Micro Data 09/11/25 04:00 09/11/25 04:00 Labs: Laboratory Results - last 24 hr 09/10/25 23:10: WBC 15.0 H, RBC 4.35 L, Hgb 10.1 L, Hct 31.8 L, MCV 73.1 L, MCH 23.2 L, MCHC 31.8 L, RDW Std Deviation 55.0 H, RDW Coeff of Torie 21.2 H, Plt Count 139 L, MPV 10.5, Immature Gran % (Auto) 1.700 H, Neut % (Auto) 88.1 H, Lymph % (Auto) 4.8 L, [place] % (Auto) 5.0, Eos % (Auto) 0.1, Baso % (Auto) 0.3, Absolute Neuts (auto) 13.3 H, Absolute Lymphs (auto) 0.72 L, Nucleated RBC % 0, Differential Comment SCANNED, Platelet Estimate SLT DEC, Anisocytosis 2+, Microcytosis 1+, Target Cells 1+, Tear Drop Cells 1+, Ovalocytes 2+, Crenated Cell 1+, Acanthocytes (Spur) RARE, Schistocytes RARE, PT 25.2 H, INR 2.2, APTT 39.2 H, Sodium 137, Potassium 4.1, Chloride 94 L, Carbon Dioxide 29.5, Anion Gap 13, BUN 36 H, Creatinine 1.20, Estim Creat Clear Calc 41.17 L, Est GFR (MDRD) Non-Af 58 L, BUN/Creatinine Ratio 29.8 H, Glucose 124 H, Calcium 9.2, Total Bilirubin 1.88 H, AST 159 H, ALT 94 H, Alkaline Phosphatase 166 H, Total Protein 6.7, Albumin 3.5, Globulin 3.3, Albumin/Globulin Ratio 1.1 09/10/25 23:32: Lactic Acid 1.7, Troponin T High Sens 102 H*, Lipase 20 09/10/25 23:37: Urine Color Yellow, Urine Clarity Clear, Urine pH 6.0, Ur Specific [place] 1.010, Urine Protein 30 H, Urine Glucose (UA) Normal, Urine Ketones Negative, Urine Occult Blood 10 H, Urine Nitrite Negative, Urine Bilirubin Negative, Urine Urobilinogen 1 H, Ur Leukocyte Esterase 100 H, Urine RBC 0-5 SEEN, Urine WBC 0-5 SEEN, Ur Squamous Epith Cells 0-5 SEEN, Ur Transition Epith Cell 0-5 SEEN, Ur Renal Epithelial Cell 5-10 SEEN, Amorphous Sediment 2+, Urine Bacteria 2+, Hyaline Casts 0-5 SEEN, Urine Mucus 0 SEEN 09/11/25 01:12: Magnesium 1.6, Troponin T Hi Sens 2 Hr 96 H* 09/11/25 03:51: POC Glucose 114 H 09/11/25 04:00: WBC 13.4 H, RBC 4.33 L, Hgb 10.0 L, Hct 32.1 L, MCV 74.1 L, MCH 23.1 L, MCHC 31.2 L, RDW Std Deviation 55.2 H, RDW Coeff of Torie 21.3 H, Plt Count 131 L, MPV 10.0, Immature Gran % (Auto) 0.800, Neut % (Auto) 92.7 H, Lymph % (Auto) 3.4 L, [place] % (Auto) 2.8, Eos % (Auto) 0.1, Baso % (Auto) 0.2, Absolute Neuts (auto) 12.5 H, Absolute Lymphs (auto) 0.45 L, Nucleated RBC % 0, Differential Comment SCANNED, Platelet Estimate SLT DEC, Anisocytosis 2+, Microcytosis 1+, Target Cells RARE, Tear Drop Cells RARE, Ovalocytes 1+, Acanthocytes (Spur) RARE, Schistocytes RARE, Sodium 138, Potassium 3.2 L, Chloride 102, Carbon Dioxide 24.1, Anion Gap 12, BUN 30 H, Creatinine 0.97, Estim Creat Clear Calc 52.64, Est GFR (MDRD) Non-Af 75, BUN/Creatinine Ratio 31.2 H, Glucose 126 H, Calcium 7.5 L, Total Bilirubin 1.94 H, AST 131 H, ALT 80 H, Alkaline Phosphatase 133 H, Troponin T Hi Sens 4Hr 85 H*, [place] [address] H, Total Protein 5.8 L, Albumin 2.9 L, Globulin 2.8, Albumin/Globulin Ratio 1.0 09/11/25 09:04: POC Glucose 134 H 09/11/25 13:30: POC Glucose 206 H 09/11/25 16:56: POC Glucose 141 H Micro: Microbiology 09/10/25 23:31 Blood Culture (Wb) - Left Hand Bacteria Detection (PCR) - Final Staphylococcus aureus 09/10/25 23:31 Blood Culture (Wb) - Left Hand Blood Culture - Preliminary 09/11/25 05:00 Mucosa - Nasopharyngeal Respiratory Panel (PCR) - Final 09/10/25 23:37 Urine, Clean Catch Streptococcus pneumoniae Antigen (M - Final 09/11/25 04:05 Nasal Secretion MRSA (PCR) - Final 09/10/25 23:30 Mucosa - Nose SARS-CoV-2, Influenza & RSV (PCR) - Final Rhythm Strip Rhythm Strip: A-fib Rate: 122 Ectopy: None Cardiology Labs/Tests 09/10/25 23:10: WBC 15.0 H, RBC 4.35 L, Hgb 10.1 L, Hct 31.8 L, MCV 73.1 L, MCH 23.2 L, MCHC 31.8 L, Plt Count 139 L, MPV 10.5, Immature Gran % (Auto) 1.700 H, Neut % (Auto) 88.1 H, Lymph % (Auto) 4.8 L, [place] % (Auto) 5.0, Eos % (Auto) 0.1, Baso % (Auto) 0.3, Absolute Neuts (auto) 13.3 H, Nucleated RBC % 0, PT 25.2 H, INR 2.2, APTT 39.2 H, Sodium 137, Potassium 4.1, Chloride 94 L, Carbon Dioxide 29.5, Anion Gap 13, BUN 36 H, Creatinine 1.20, Est GFR (MDRD) Non-Af 58 L, BUN/Creatinine Ratio 29.8 H, Glucose 124 H, Calcium 9.2, Total Bilirubin 1.88 H 09/10/25 23:32: Lactic Acid 1.7 09/10/25 23:37: Urine Color Yellow, Urine Clarity Clear, Urine pH 6.0, Ur Specific [place] 1.010, Urine Protein 30 H, Urine Glucose (UA) Normal, Urine Ketones Negative, Urine Occult Blood 10 H, Urine Nitrite Negative, Urine Bilirubin Negative, Urine Urobilinogen 1 H, Ur Leukocyte Esterase 100 H, Urine RBC 0-5 SEEN, Urine WBC 0-5 SEEN 09/11/25 01:12: Magnesium 1.6 09/11/25 04:00: WBC 13.4 H, RBC 4.33 L, Hgb 10.0 L, Hct 32.1 L, MCV 74.1 L, MCH 23.1 L, MCHC 31.2 L, Plt Count 131 L, MPV 10.0, Immature Gran % (Auto) 0.800, Neut % (Auto) 92.7 H, Lymph % (Auto) 3.4 L, [place] % (Auto) 2.8, Eos % (Auto) 0.1, Baso % (Auto) 0.2, Absolute Neuts (auto) 12.5 H, Nucleated RBC % 0, Sodium 138, Potassium 3.2 L, Chloride 102, Carbon Dioxide 24.1, Anion Gap 12, BUN 30 H, Creatinine 0.97, Est GFR (MDRD) Non-Af 75, BUN/Creatinine Ratio 31.2 H, Glucose 126 H, Calcium 7.5 L, Total Bilirubin 1.94 H Rhythm: EKG: ECHO: Stress Test: Cardiac Cath: PCI: CT Surgery: Holter monitor: EPS: PPM: CXR: Chest CT Scan: Radiography Diagnostic Testing: Radiology Impression Chest X-Ray 09/10/25 11:55 IMPRESSION: Again are noted changes from prior metallic valve replacement. Unremarkable median sternotomy wires. Unchanged blunting of the costophrenic angles, probably adhesions versus minimal bilateral pleural effusions. Decreased bilateral basilar pulmonary infiltrates. Enlarged cardiac silhouette. Reading Location: [place] [id number] Chest/Abdomen/Pelvis CT 09/11/25 00:21 IMPRESSION: Bilateral pleural thickening. Minimal bilateral pleural effusions. Passive atelectatic airspace disease of the lower lobes. Bilateral basilar multifocal ground-glass densities of the lungs, probably multifocal pneumonia, not present on prior exam. Mild bilateral basilar bronchiectatic changes. Mild cardiomegaly. Changes from prior aortic valve replacement. Mildly prominent mediastinal lymph nodes are noted with the largest measuring 1.3 cm. Small sliding hiatal hernia. Diffuse thickening of the stomach suggestive of gastritis. Dilated supra hepatic IVC suggestive of dysfunction of the right cardiac cavities. Hepatomegaly. Diffuse irregularity of the hepatic contour, probably secondary to chronic parenchymal liver disease. Mild splenomegaly. Thickened gallbladder with surrounding mild amount of free fluid, probably secondary to chronic parenchymal liver disease. Mild free ascitic fluid in the abdomen and pelvis. Uncomplicated colonic diverticulosis. Scattered right renal simple cysts are noted with the largest measuring 1.5 cm. Moderate prostatomegaly. Diffuse thickening of the wall of the bladder. Chronic bladder outlet obstruction versus cystitis. Mildly prominent retroperitoneal lymph nodes are noted with the largest measuring 1.2 cm. Mildly prominent rai hepatis lymph nodes are noted with the largest measuring 1.2 cm, probably reactive. Scattered prostatic calcifications. Mild osteopenia. Moderate diffuse spondylosis. Unremarkable metallic prosthesis of the right hip. Reading Location: [place] [id number] Echocardiogram 09/11/25 07:51 Interpretation Summary The left ventricular ejection fraction is 40 %. Normal LV size. Mild to moderate global left ventricular systolic dysfunction. Mild global right ventricular systolic dysfunction. The left atrium is mildly enlarged. The right atrium is mildly enlarged. Moderate mitral annular calcification. Mild (1+) mitral valve insufficiency. Mild-Moderate (1-2+) tricuspid valve insufficiency. Moderate pulmonary hypertension. Bioprosthetic aortic valve. Mild concentric left ventricular hypertrophy. Ordering Physician: Aston Barker Referring Physician: Amador Calles Performed By: Bev Perkins RDCS Risk Score for UA/STEMI Assesmment (YES = 1) Risk Stratification Applicable: No
[2025-09-11] MEDS: Amiodarone 150 MG in Dextrose 5%-Water (100mL Bag) 100 ML 600 MG IV BOLUS (21:20)
[2025-09-11] MEDS: Amiodarone 360 MG in Dextrose 5% Viaflo Bag 192.8 ML 33.3 MG CONT INF (21:24)
[2025-09-12] VITALS (28 sets, daily range): BP systolic 91–116; BP diastolic 59–84; PULSE 74–109; RESP 13–28; TEMP 36.3–37.9; O2SAT 95–100
[2025-09-12] MEDS: Amiodarone 360 MG in Dextrose 5% Viaflo Bag 192.8 ML 16.7 MG CONT INF ×2 (03:40→16:28)
[2025-09-12] MEDS: Piperacil/Tazobactam 3.375 GM in 0.9% Normal Saline (50mL MB+) 50 ML IV (05:04)
[2025-09-12] MEDS: 0.9% Saline Lock 10 ML Syringe IV ×2 (06:23→23:07)
[2025-09-12 08:20] LABS: Hematocrit 28.5 % (40-54); Hemoglobin 9.1 g/dL (13.0-16.5); Immature Granulocytes Count 0.030 X10^3/uL (0.0-0.0); Mean Corp Hgb Conc 31.9 g/dL (32-36); Mean Corpuscular Volume 72.7 fL (80-94); Mean Platelet Vol. 10.3 fl (6.2-12.0); NRBC Flagged by Analyzer 0 % (0-5); POSITIVE DIFFERENTIAL YES; POSITIVE MORPHOLOGY YES; Platelet Count 111 K/mm3 (150-450); RBC Distribution Width CV 20.9 % (11.6-14.6); RBC Distribution Width SD 54.3 fl (35.1-43.9); Red Blood Count 3.92 M/mm3 (4.6-6.2); White Blood Count 8.7 K/mm3 (4.4-11.0)
[2025-09-12 08:25] LABS: Differential Indicated SCAN CRITERIA MET
[2025-09-12 08:44] LABS: Anion Gap 10 (5-15); BUN 43 mg/dL (4-19); BUN/Creat Ratio 37.4 RATIO (10-20); Calcium,Total 8.7 mg/dL (7.6-11.0); Carbon Dioxide 25.8 mmol/L (21.0-32.0); Chloride 98 mmol/L (98-108); Estimated Creatinine Clearance 44.02 ml/min (50-250); Glucose 157 mg/dL (70-99); Magnesium 2.1 mg/dL (1.5-2.2); Potassium 3.6 mmol/L (3.3-5.1)
[2025-09-12] MEDS: APIXABAN 5 MG TABLET PO ×2 (09:24→22:27)
[2025-09-12] MEDS: Senna/Docusate Sodium 1 Tablet PO (09:24)
[2025-09-12] MEDS: Ensure Plus High Protein 120 ML LIQUID PO ×2 (09:25→17:08)
--- NOTE | 2025-09-12 11:25 | PN.HOSP_ITS ---
Reason for Visit
--- NOTE | 2025-09-12 11:25 | PCM.PN.HOSP ---
Reason for Visit Chief Complaint: Dyspnea, productive cough, F/C, N/V. Objective Data Objective Data Vital Signs: Vital Signs Temp Pulse Resp BP Pulse Ox O2 Del Method O2 Flow Rate 97.4 F L 99 27 H 109/79 99 Nasal Cannula 2 09/12/25 09:15 09/12/25 11:00 09/12/25 11:00 09/12/25 11:00 09/12/25 11:00 09/12/25 11:00 09/12/25 11:00 FiO2 2 09/11/25 21:35 Oxygen Flow Rate (L/min) 2 Oxygen Delivery Method Nasal Cannula Weight: 158 lb 1.143 oz Body Mass Index (BMI) 23.3 Intake & Output: Intake and Output for Last 24 Hours 09/10/25 09/11/25 09/12/25 23:59 23:59 23:59 Intake Total 4654.88 / 4654.88 363.09 / 363.09 Output Total 900 / 900 100 / 100 Balance 3754.88 / 3754.88 263.09 / 263.09 Lab / Micro Data 09/12/25 08:00 09/12/25 08:00 Labs: Laboratory Results - last 24 hr 09/11/25 13:30: POC Glucose 206 H 09/11/25 16:56: POC Glucose 141 H 09/11/25 20:49: POC Glucose 167 H 09/12/25 06:20: POC Glucose 161 H 09/12/25 08:00: WBC 8.7, RBC 3.92 L, Hgb 9.1 L, Hct 28.5 L, MCV 72.7 L, MCH 23.2 L, MCHC 31.9 L, RDW Std Deviation 54.3 H, RDW Coeff of Torie 20.9 H, Plt Count 111 L, MPV 10.3, Immature Gran % (Auto) 0.300, Neut % (Auto) 85.8 H, Lymph % (Auto) 6.8 L, [place] % (Auto) 4.5, Eos % (Auto) 2.4, Baso % (Auto) 0.2, Absolute Neuts (auto) 7.5, Absolute Lymphs (auto) 0.59 L, Nucleated RBC % 0, Sodium 134, Potassium 3.6, Chloride 98, Carbon Dioxide 25.8, Anion Gap 10, BUN 43 H, Creatinine 1.16, Estim Creat Clear Calc 44.02 L, Est GFR (MDRD) Non-Af 61, BUN/Creatinine Ratio 37.4 H, Glucose 157 H, Calcium 8.7, Phosphorus 3.3, Magnesium 2.1 Micro: Microbiology 09/10/25 23:37 Urine, Catheterized Urine Culture - Preliminary GPC Poss Enterococcus sp 09/10/25 23:31 Blood Culture (Wb) - Left Hand Bacteria Detection (PCR) - Final Staphylococcus aureus 09/10/25 23:31 Blood Culture (Wb) - Left Hand Blood Culture - Preliminary Staphylococcus aureus 09/10/25 23:30 Blood Culture (Wb) - Right Forearm Blood Culture - Preliminary Staphylococcus species 09/11/25 05:00 Mucosa - Nasopharyngeal Respiratory Panel (PCR) - Final 09/10/25 23:37 Urine, Clean Catch Streptococcus pneumoniae Antigen (M - Final 09/11/25 04:05 Nasal Secretion MRSA (PCR) - Final 09/10/25 23:30 Mucosa - Nose SARS-CoV-2, Influenza & RSV (PCR) - Final Radiography Diagnostic Testing: Radiology Impression Echocardiogram 09/11/25 07:51 Interpretation Summary The left ventricular ejection fraction is 40 %. Normal LV size. Mild to moderate global left ventricular systolic dysfunction. Mild global right ventricular systolic dysfunction. The left atrium is mildly enlarged. The right atrium is mildly enlarged. Moderate mitral annular calcification. Mild (1+) mitral valve insufficiency. Mild-Moderate (1-2+) tricuspid valve insufficiency. Moderate pulmonary hypertension. Bioprosthetic aortic valve. Mild concentric left ventricular hypertrophy. Ordering Physician: Aston Barker Referring Physician: Amador Calles Performed By: Bev Perkins RDCS Rhythm Strip Rhythm Strip: A-fib Rate: 122 Ectopy: None Physical Exam Narrative As per patient's sister, he had a fever 100.[address] FDC. Is short of breath. He has been coughing up phlegm for about a month yellowish. Mild short of breath. A-fib RVR Physical exam General: Alert, Oriented x3, Cooperative HEENT: Atraumatic, PERRLA, EOMI, Normocephalic. Oral: No Gingival or Mucosal Lesions/ Ulcerations Neck: Supple, No JVD, Negative Carotid Bruits Chest wall/Lungs: Air entry diminished in bilateral lung bases. Bilateral lungs coarse crepitation Cardiovascular: Irregular A-fib rhythm, Normal S1,S2, systolic murmur Abdomen: Bowel Sounds Present, Soft, Non Tender, Non-Distended. Mild dyspnea at rest : No dysuria. No renal angle tenderness. No suprapubic tenderness. Extremities: Mild edema, Capillary Refill Less than 3 Seconds Skin: No rashes, No breakdown Musculoskeletal: No Tenderness to Palpation of Joints or Extremities Neurological: Cranial nerves II-XII grossly intact, DTR 2+/4. No acute focal neurological deficit. Psych/Mental Status: Normal Affect, Appropriate. Assessment & Plan Assessment/Plan (1) Sepsis: (2) Pneumonia: PLAN: Plan Patient is an 89-year-old gentleman with multiple comorbidities from an extended care facility admitted with hypotension and assessment of sepsis secondary to bilateral pneumonia made admitted to the intensive care unit where patient is being managed per protocol. Patient seen and examined. Initial assessment including history and physical reviewed 1. Acute dyspnea probably due to acute on chronic decompensated heart failure, NYHA class III: Low suspicion for underlying pneumonia. 2. Acute on chronic HFpEF, valvular heart disease, history of aortic valve replacement, CAD status post CABG and chronic LBBB.: Mild troponin elevation nonischemic in nature, due to acute myocardial injury from increased cardiac demand Echo on 08/15 shows EF 40%. Mild to moderate global LV and mild RV systolic dysfunction. Right and left atria are mildly enlarged. Mild MR, 1-2+ TR, moderate pulmonary hypertension. Bioprosthetic AV valve. 3. Paroxysmal A-fib with RVR: On Amio drip and then switched to oral oral. On Eliquis 5 mg twice daily 4. CKD stage IIIb: Admission BUN/creatinine 36/1.2, no significant change. Estimated creatinine clearance 44 mL/min 5. Hypertension: Blood pressure on lower side 6. Dyslipidemia: On statin atorvastatin 40 mg nightly 7. BPH: Prelim urine culture shows GPC possible Enterococcus 50,000?80,000 colonies, in nonpathologic range. 8. DM type 2: Glucoses reasonably controlled, 157. 9. Staph aureus bacteremia: Both aerobic and anaerobic bottles of blood culture shows GPC Staph aureus, exact identification still pending but medication not detected. ID consulted. Patient started on IV cefazolin 2 g IV every 8 hourly. 10. DVT prophylaxis on Eliquis 5 mg p.o. twice daily Microbiology Past 72 Hours 09/10/25 23:37 Urine, Catheterized Urine Culture - Preliminary GPC Poss Enterococcus sp 09/10/25 23:31 Blood Culture (Wb) - Left Hand Bacteria Detection (PCR) - Final Staphylococcus aureus 09/10/25 23:31 Blood Culture (Wb) - Left Hand Blood Culture - Preliminary Staphylococcus aureus 09/10/25 23:30 Blood Culture (Wb) - Right Forearm Blood Culture - Preliminary Staphylococcus species 09/11/25 05:00 Mucosa - Nasopharyngeal Respiratory Panel (PCR) - Final 09/10/25 23:37 Urine, Clean Catch Streptococcus pneumoniae Antigen (M - Final 09/11/25 04:05 Nasal Secretion MRSA (PCR) - Final 09/10/25 23:30 Mucosa - Nose SARS-CoV-2, Influenza & RSV (PCR) - Final Laboratory Results 09/11/25 16:56: POC Glucose 141 H 09/11/25 20:49: POC Glucose 167 H 09/12/25 06:20: POC Glucose 161 H 09/12/25 08:00: WBC 8.7, RBC 3.92 L, Hgb 9.1 L, Hct 28.5 L, MCV 72.7 L, MCH 23.2 L, MCHC 31.9 L, RDW Std Deviation 54.3 H, RDW Coeff of Torie 20.9 H, Plt Count 111 L, MPV 10.3, Immature Gran % (Auto) 0.300, Neut % (Auto) 85.8 H, Lymph % (Auto) 6.8 L, [place] % (Auto) 4.5, Eos % (Auto) 2.4, Baso % (Auto) 0.2, Absolute Neuts (auto) 7.5, Absolute Lymphs (auto) 0.59 L, Nucleated RBC % 0, Sodium 134, Potassium 3.6, Chloride 98, Carbon Dioxide 25.8, Anion Gap 10, BUN 43 H, Creatinine 1.16, Estim Creat Clear Calc 44.02 L, Est GFR (MDRD) Non-Af 61, BUN/Creatinine Ratio 37.4 H, Glucose 157 H, Calcium 8.7, Phosphorus 3.3, Magnesium 2.1 09/12/25 11:26: POC Glucose 220 H Clinical Impression(s) from Imaging Studies Chest X-Ray 09/10/25 11:55 IMPRESSION: Again are noted changes from prior metallic valve replacement. Unremarkable median sternotomy wires. Unchanged blunting of the costophrenic angles, probably adhesions versus minimal bilateral pleural effusions. Decreased bilateral basilar pulmonary infiltrates. Enlarged cardiac silhouette. [facility] Chest/Abdomen/Pelvis CT 09/11/25 00:21 IMPRESSION: Bilateral pleural thickening. Minimal bilateral pleural effusions. Passive atelectatic airspace disease of the lower lobes. Bilateral basilar multifocal ground-glass densities of the lungs, probably multifocal pneumonia, not present on prior exam. Mild bilateral basilar bronchiectatic changes. Mild cardiomegaly. Changes from prior aortic valve replacement. Mildly prominent mediastinal lymph nodes are noted with the largest measuring 1.3 cm. Small sliding hiatal hernia. Diffuse thickening of the stomach suggestive of gastritis. Dilated supra hepatic IVC suggestive of dysfunction of the right cardiac cavities. Hepatomegaly. Diffuse irregularity of the hepatic contour, probably secondary to chronic parenchymal liver disease. Mild splenomegaly. Thickened gallbladder with surrounding mild amount of free fluid, probably secondary to chronic parenchymal liver disease. Mild free ascitic fluid in the abdomen and pelvis. Uncomplicated colonic diverticulosis. Scattered right renal simple cysts are noted with the largest measuring 1.5 cm. Moderate prostatomegaly. Diffuse thickening of the wall of the bladder. Chronic bladder outlet obstruction versus cystitis. Mildly prominent retroperitoneal lymph nodes are noted with the largest measuring 1.2 cm. Mildly prominent rai hepatis lymph nodes are noted with the largest measuring 1.2 cm, probably reactive. Scattered prostatic calcifications. Mild osteopenia. Moderate diffuse spondylosis. Unremarkable metallic prosthesis of the right hip. Reading Location[facility] [id number] Echocardiogram 09/11/25 07:51 Interpretation Summary The left ventricular ejection fraction is 40 %. Normal LV size. Mild to moderate global left ventricular systolic dysfunction. Mild global right ventricular systolic dysfunction. The left atrium is mildly enlarged. The right atrium is mildly enlarged. Moderate mitral annular calcification. Mild (1+) mitral valve insufficiency. Mild-Moderate (1-2+) tricuspid valve insufficiency. Moderate pulmonary hypertension. Bioprosthetic aortic valve. Mild concentric left ventricular hypertrophy. Ordering Physician: Aston Barker Referring Physician: Amador Calles Performed By: Bev Perkins RDCS Charges/Coding Visit Charges Inpatient E&M: 68284 Subs Hosp L2
[2025-09-12] MEDS: Cefazolin 2 GM in 0.9% Normal Saline (100mL Bag) 100 ML IV ×2 (13:27→22:24)
--- NOTE | 2025-09-12 14:01 | CASEMGMT ---
Discharge Planning Updates sent via [facility] to [facility] with note that pt will likely return over the weekend. Green Sheet completed and given to RN KIERA. Kristen Rodriguez DC Planning Asst.
--- NOTE | 2025-09-12 16:13 | PCM.CONS.GEN ---
Assessment & Plan Assessment/Plan (1) H/O aortic valve replacement: (2) Sepsis: (3) MSSA bacteremia: PLAN: sepsis due to mssa bacteremia per pcr with pneumonia as suspected source. Splinter hemorrhage on L index finger and h/o aortic valve replacement, so high concern for endocarditis. TTE done. May need JS this admission. Will order repeat bcx for today and tomorrow. Will narrow abx to cefazolin. Will follow, thank you HPI Consult Data Date of Consult: 09/12/25 HPI Narrative Reason for Consultation: bacteremia HPI Narrative: TIRSO CALDERÓN, is a 89 M with h/o aortic valve replacement, DM, CKD, presented 09/11 with 2-3 days progressive cough, dyspnea, purulent sputum, fever, and weakness. Found to have hypotension, taken to ED, admitted on vanc/zosyn. Seen by pulmonary and cardiology. Denies any new focal joint or back pain. Now Bcx (+) staph aureus. Full ROS performed and neg except as noted above. [facility] Medical History Pleural effusion CHF (congestive heart failure) Congestive heart failure Carotid artery bruit Hypoglycemia associated with type 2 diabetes mellitus Frequent falls Elevated LFTs Physical debility BPH (benign prostatic hyperplasia) Vitamin D deficiency Chronic renal failure, stage 2 (mild) Thrombocytopenia Significant closed head trauma within past 3 months Abnormal LFTs Chronic diastolic (congestive) heart failure Dehydration Acute on chronic renal failure Hyperkalemia Hyponatremia Abrasions of multiple sites Fall Bradycardia Near syncope Obesity Secondary pulmonary arterial hypertension Paroxysmal atrial fibrillation Postoperative atrial fibrillation (01/01/19) Essential (primary) hypertension Anxiety and depression Thyroid nodule Stenosis of right subclavian artery Pleural effusion on left Iron deficiency anemia Type 2 diabetes mellitus Left bundle branch block Non-rheumatic aortic stenosis Atherosclerosis of coronary artery of [place] heart without angina pectoris Hyperlipidemia Home Medications ?Medication ?Instructions ?Recorded ?Last Taken ?Type vitamins A,C,U-lrjg-rrhesr 4,296 1 cap PO BID EYE HEALTH 03/07/19 10/25/19 History mcg-226 mg-90 mg capsule lpnodzqv-xd-zrcke 300 mcg-K 60 1 tab PO DAILY supplement 10/25/19 10/25/19 History mcg-lycop 600 mcg-lutein 300 mcg tablet tamsulosin 0.4 mg capsule 0.8 mg PO DAILY@1730 urinary 11/25/23 Unknown History retention finasteride 5 mg tablet (Proscar) 5 mg PO DAILY prostate #30 tabs 11/27/23 Unknown Rx metoprolol tartrate 25 mg tablet 12.5 mg (1/2 x 25 mg) PO BID high 02/20/24 Unknown Rx blood pressure #90 tabs atorvastatin 40 mg tablet 40 mg PO QHS antihyperlipidemics 10/11/24 Unknown History ferrous sulfate 325 mg (65 mg 325 mg PO BID supplement 11/01/24 Unknown History iron) tablet (FeroSul) acetaminophen 500 mg tablet 1,000 mg (2 x 500 mg) PO Q6H PRN 11/19/24 Unknown Rx pain 1-10 #0 tabs apixaban 5 mg tablet (Eliquis) 5 mg PO BID #0 tabs 11/19/24 Unknown Rx potassium chloride 20 mEq 20 meq PO DAILYCM #0 tabs 11/19/24 Unknown Rx tablet,extended release(part/cryst) sennosides 8.6 mg-docusate sodium 1 tab PO DAILY #0 tabs 11/19/24 Unknown Rx 50 mg tablet (Stimulant Laxative Plus) cetirizine 5 mg tablet 5 mg PO QDAY PRN allergy symptoms 08/14/25 Unknown History metformin 500 mg tablet 500 mg PO BID 08/14/25 Unknown History sertraline 100 mg tablet (Zoloft) 150 mg PO QDAY 08/14/25 Unknown History spironolactone 25 mg tablet 25 mg PO QDAY #30 tabs 08/14/25 Unknown Rx trazodone 50 mg tablet 50 mg PO QHS PRN sleep 08/14/25 Unknown History bumetanide 2 mg tablet 3 mg (1.5 x 2 mg) PO BID 90 days 09/09/25 Unknown Rx #270 tabs dapagliflozin propanediol 10 mg 10 mg PO QDAY #90 tabs 09/09/25 Unknown Rx tablet (Farxiga) clonazepam 0.5 mg tablet 0.5 mg PO Q12H 09/10/25 Unknown History prednisone 20 mg tablet 40 mg PO Q12H 09/10/25 Unknown History Allergy/AdvReac Type Severity Reaction Status Date / Time No Known Allergies Allergy Verified 08/14/25 08:47 Family History Father CVA (cerebral vascular accident) Mother COPD (chronic obstructive pulmonary disease) Surgical History (Updated 09/11/25 @ 20:[address] Thompson Diggs MD) H/O aortic valve replacement (01/01/19) History of open reduction and internal fixation (ORIF) procedure History of cataract surgery History of hip replacement History of thoracentesis (01/05/19) History of left heart catheterization (10/31/18) H/O coronary artery bypass surgery (01/01/19) Social History household members: none Smoking Status: Former smoker quit date: 11/13/03 how long ago did patient quit smoking: cigars Physical Exam Const alert and no apparent distress General Appearance: cooperative HEENT normocephalic and head/scalp atraumatic Eyes PERRL and EOMs intact bilaterally Neck supple and No nodes Resp Auscultation: rhonchi and diminished lung sounds Cardio Negative for regular rate or regular rhythm Rate: tachycardic GI soft to palpation, non-tender and non-distended Extremity General Extremity: no tenderness to palpation of joints or extremities; Negative for edema Skin no rashes or lesions noted Skin Narrative: splinter hemorrhage on L index finger Neuro CN's II-XII intact bilaterally Lab / Micro Data 09/12/25 08:00 09/12/25 08:00 Labs: Laboratory Results - last 24 hr 09/11/25 16:56: POC Glucose 141 H 09/11/25 20:49: POC Glucose 167 H 09/12/25 06:20: POC Glucose 161 H 09/12/25 08:00: WBC 8.7, RBC 3.92 L, Hgb 9.1 L, Hct 28.5 L, MCV 72.7 L, MCH 23.2 L, MCHC 31.9 L, RDW Std Deviation 54.3 H, RDW Coeff of Torie 20.9 H, Plt Count 111 L, MPV 10.3, Immature Gran % (Auto) 0.300, Neut % (Auto) 85.8 H, Lymph % (Auto) 6.8 L, [place] % (Auto) 4.5, Eos % (Auto) 2.4, Baso % (Auto) 0.2, Absolute Neuts (auto) 7.5, Absolute Lymphs (auto) 0.59 L, Nucleated RBC % 0, Sodium 134, Potassium 3.6, Chloride 98, Carbon Dioxide 25.8, Anion Gap 10, BUN 43 H, Creatinine 1.16, Estim Creat Clear Calc 44.02 L, Est GFR (MDRD) Non-Af 61, BUN/Creatinine Ratio 37.4 H, Glucose 157 H, Calcium 8.7, Phosphorus 3.3, Magnesium 2.1 09/12/25 11:26: POC Glucose 220 H Micro: Microbiology 09/10/25 23:37 Urine, Catheterized Urine Culture - Preliminary GPC Poss Enterococcus sp 09/10/25 23:31 Blood Culture (Wb) - Left Hand Bacteria Detection (PCR) - Final Staphylococcus aureus 09/10/25 23:31 Blood Culture (Wb) - Left Hand Blood Culture - Preliminary Staphylococcus aureus 09/10/25 23:30 Blood Culture (Wb) - Right Forearm Blood Culture - Preliminary Staphylococcus species Rhythm Strip Rhythm Strip: A-fib Rate: 122 Ectopy: None
[2025-09-12] MEDS: Senna/Docusate Sodium 1 Tablet 2 TABLET PO (22:28)
[2025-09-13] VITALS (10 sets, daily range): BP systolic 105–112; BP diastolic 56–73; PULSE 70–99; RESP 18–20; TEMP 36.7–36.9; O2SAT 94–100
[2025-09-13 06:06] LABS: Hematocrit 27.3 % (40-54); Hemoglobin 8.9 g/dL (13.0-16.5); Immature Granulocytes Count 0.040 X10^3/uL (0.0-0.0); Mean Corp Hgb Conc 32.6 g/dL (32-36); Mean Corpuscular Volume 71.5 fL (80-94); Mean Platelet Vol. 10.7 fl (6.2-12.0); NRBC Flagged by Analyzer 0 % (0-5); POSITIVE DIFFERENTIAL YES; POSITIVE MORPHOLOGY YES; Platelet Count 104 K/mm3 (150-450); RBC Distribution Width CV 20.4 % (11.6-14.6); RBC Distribution Width SD 52.6 fl (35.1-43.9); Red Blood Count 3.82 M/mm3 (4.6-6.2); White Blood Count 6.8 K/mm3 (4.4-11.0)
[2025-09-13 06:11] LABS: Differential Indicated SCAN CRITERIA MET
[2025-09-13] MEDS: Cefazolin 2 GM in 0.9% Normal Saline (100mL Bag) 100 ML IV ×3 (06:13→22:14)
[2025-09-13 06:32] LABS: Anion Gap 10 (5-15); BUN 48 mg/dL (4-19); BUN/Creat Ratio 43.2 RATIO (10-20); Calcium,Total 8.8 mg/dL (7.6-11.0); Carbon Dioxide 26.1 mmol/L (21.0-32.0); Chloride 96 mmol/L (98-108); Estimated Creatinine Clearance 45.59 ml/min (50-250); Glucose 139 mg/dL (70-99); Potassium 3.6 mmol/L (3.3-5.1)
[2025-09-13 06:56] LABS: Differential Comment SCANNED
--- NOTE | 2025-09-13 08:38 | PCM.PN.CARD ---
Subjective Subjective Patient seen and evaluated. Appears to be doing much better at this time Objective Data Vital Signs: Vital Signs Temp Pulse Resp BP Pulse Ox O2 Del Method O2 Flow Rate 98.4 F 80 20 H 109/56 L 99 Nasal Cannula 2 09/13/25 06:00 09/13/25 06:00 09/13/25 06:00 09/13/25 06:00 09/13/25 06:00 09/13/25 06:00 09/13/25 06:00 FiO2 2 09/11/25 21:35 Oxygen Flow Rate (L/min) 2 Oxygen Delivery Method Nasal Cannula Weight: 158 lb 1.143 oz Body Mass Index (BMI) 23.3 Intake & Output: Intake and Output for Last 24 Hours 09/11/25 09/12/25 09/13/25 23:59 23:59 23:59 Intake Total 4654.88 / 4654.88 1370.57 / 1370.57 110 / 110 Output Total 900 / 900 650 / 650 450 / 450 Balance 3754.88 / 3754.88 720.57 / 720.57 -340 / -340 Lab / Micro Data 09/13/25 05:37 09/13/25 05:37 Labs: Laboratory Results - last 24 hr 09/12/25 08:00: Sodium 134, Potassium 3.6, Chloride 98, Carbon Dioxide 25.8, Anion Gap 10, BUN 43 H, Creatinine 1.16, Estim Creat Clear Calc 44.02 L, Est GFR (MDRD) Non-Af 61, BUN/Creatinine Ratio 37.4 H, Glucose 157 H, Calcium 8.7, Phosphorus 3.3, Magnesium 2.1 09/12/25 11:26: POC Glucose 220 H 09/12/25 16:59: POC Glucose 166 H 09/12/25 22:22: POC Glucose 179 H 09/13/25 05:37: WBC 6.8, RBC 3.82 L, Hgb 8.9 L, Hct 27.3 L, MCV 71.5 L, MCH 23.3 L, MCHC 32.6, RDW Std Deviation 52.6 H, RDW Coeff of Torie 20.4 H, Plt Count 104 L, MPV 10.7, Immature Gran % (Auto) 0.600, Neut % (Auto) 80.9 H, Lymph % (Auto) 8.1 L, [place] % (Auto) 5.6, Eos % (Auto) 4.7, Baso % (Auto) 0.1, Absolute Neuts (auto) 5.5, Absolute Lymphs (auto) 0.55 L, Nucleated RBC % 0, Differential Comment SCANNED, Sodium 132 L, Potassium 3.6, Chloride 96 L, Carbon Dioxide 26.1, Anion Gap 10, BUN 48 H, Creatinine 1.12, Estim Creat Clear Calc 45.59 L, Est GFR (MDRD) Non-Af 63, BUN/Creatinine Ratio 43.2 H, Glucose 139 H, Calcium 8.8 09/13/25 06:08: POC Glucose 134 H Micro: Microbiology 09/10/25 23:30 Blood Culture (Wb) - Right Forearm Blood Culture - Final Staphylococcus aureus 09/10/25 23:31 Blood Culture (Wb) - Left Hand Bacteria Detection (PCR) - Final Staphylococcus aureus 09/10/25 23:31 Blood Culture (Wb) - Left Hand Blood Culture - Final Staphylococcus aureus 09/10/25 23:37 Urine, Catheterized Urine Culture - Preliminary GPC Poss Enterococcus sp Rhythm Strip Rhythm Strip: A-fib Rate: 122 Ectopy: None Cardiology Labs/Tests 09/12/25 08:00: Sodium 134, Potassium 3.6, Chloride 98, Carbon Dioxide 25.8, Anion Gap 10, BUN 43 H, Creatinine 1.16, Est GFR (MDRD) Non-Af 61, BUN/Creatinine Ratio 37.4 H, Glucose 157 H, Calcium 8.7, Phosphorus 3.3, Magnesium 2.1 09/13/25 05:37: WBC 6.8, RBC 3.82 L, Hgb 8.9 L, Hct 27.3 L, MCV 71.5 L, MCH 23.3 L, MCHC 32.6, Plt Count 104 L, MPV 10.7, Immature Gran % (Auto) 0.600, Neut % (Auto) 80.9 H, Lymph % (Auto) 8.1 L, [place] % (Auto) 5.6, Eos % (Auto) 4.7, Baso % (Auto) 0.1, Absolute Neuts (auto) 5.5, Nucleated RBC % 0, Sodium 132 L, Potassium 3.6, Chloride 96 L, Carbon Dioxide 26.1, Anion Gap 10, BUN 48 H, Creatinine 1.12, Est GFR (MDRD) Non-Af 63, BUN/Creatinine Ratio 43.2 H, Glucose 139 H, Calcium 8.8 Rhythm: EKG: ECHO: Stress Test: Cardiac Cath: PCI: CT Surgery: Holter monitor: EPS: PPM: CXR: Chest CT Scan: Physical Exam Const alert and oriented x3 HEENT normocephalic Eyes PERRL Chest inspection of chest normal Resp Auscultation: diminished lung sounds Cardio Rhythm: abnormal rhythm irregularly irregular Extremity normal to inspection Assessment & Plan Assessment/Plan (1) CHF (congestive heart failure), NYHA class III: PLAN: He does present with congestive heart failure with reduced ejection fraction which appears to be global. I suspect the above is on the basis of the atrial fibrillation with a rapid ventricular response rate. However it would not be surprising if one of his bypass grafts is not functioning very well. Recommendation at this time is to optimize his fluid management with diuresis His heart rate is much better now Getting him on guideline directed medical therapy (2) H/O coronary artery bypass surgery: PLAN: He is status post coronary bypass surgery and at this time does not appear to be a good candidate for any intervention. (3) Atrial fibrillation: QUALIFIERS: Atrial fibrillation type: persistent (not longstanding) Qualified Code(s): I48.19 - Other persistent atrial fibrillation PLAN: He does have atrial fibrillation with a rapid ventricular response rate. He is anticoagulated and his heart rate is much better now on the oral amiodarone. He has declined cardioversion in the past and the idea here is for rate control only. (4) Elevated troponin: PLAN: He does have a mildly elevated troponin but I suspect the above is from demand ischemia. At this time there are no plans for any intervention. (5) Left bundle branch block: PLAN: He does have a bundle branch block morphology. Will continue to follow the above. (6) H/O aortic valve replacement: PLAN: He does have a history of aortic valve replacement and my recommendation at this time is to continue observation. His echocardiogram did not demonstrate any significant abnormalities. Thank you for allowing me to participate in the care of your patient. Please don't hesitate to call if any issues arise. PLAN: Plan Will sign off at this time. Discussed with hospitalist. Please reconsult as necessary
[2025-09-13] MEDS: APIXABAN 5 MG TABLET PO ×2 (09:38→22:14)
[2025-09-13] MEDS: Ensure Plus High Protein 120 ML LIQUID PO ×2 (09:44→14:31)
--- NOTE | 2025-09-13 19:21 | PN.HOSP_ITS ---
Reason for Visit
--- NOTE | 2025-09-13 19:21 | PCM.PN.HOSP ---
Reason for Visit Chief Complaint: Dyspnea, productive cough, F/C, N/V. Objective Data Objective Data Vital Signs: Vital Signs Temp Pulse Resp BP Pulse Ox O2 Del Method O2 Flow Rate 98.1 F 70 18 112/73 100 Nasal Cannula 2 09/13/25 14:25 09/13/25 14:25 09/13/25 14:25 09/13/25 14:25 09/13/25 14:25 09/13/25 15:39 09/13/25 15:39 FiO2 2 09/11/25 21:35 Oxygen Flow Rate (L/min) 2 Oxygen Delivery Method Nasal Cannula Weight: 158 lb 1.143 oz Body Mass Index (BMI) 23.3 Intake & Output: Intake and Output for Last 24 Hours 09/11/25 09/12/25 09/13/25 23:59 23:59 23:59 Intake Total 4654.88 / 4654.88 1370.57 / 1370.57 220 / 220 Output Total 900 / 900 650 / 650 850 / 850 Balance 3754.88 / 3754.88 720.57 / 720.57 -630 / -630 Lab / Micro Data 09/13/25 05:37 09/13/25 05:37 Labs: Laboratory Results - last 24 hr 09/12/25 22:22: POC Glucose 179 H 09/13/25 05:37: WBC 6.8, RBC 3.82 L, Hgb 8.9 L, Hct 27.3 L, MCV 71.5 L, MCH 23.3 L, MCHC 32.6, RDW Std Deviation 52.6 H, RDW Coeff of Torie 20.4 H, Plt Count 104 L, MPV 10.7, Immature Gran % (Auto) 0.600, Neut % (Auto) 80.9 H, Lymph % (Auto) 8.1 L, [place] % (Auto) 5.6, Eos % (Auto) 4.7, Baso % (Auto) 0.1, Absolute Neuts (auto) 5.5, Absolute Lymphs (auto) 0.55 L, Nucleated RBC % 0, Differential Comment SCANNED, Sodium 132 L, Potassium 3.6, Chloride 96 L, Carbon Dioxide 26.1, Anion Gap 10, BUN 48 H, Creatinine 1.12, Estim Creat Clear Calc 45.59 L, Est GFR (MDRD) Non-Af 63, BUN/Creatinine Ratio 43.2 H, Glucose 139 H, Calcium 8.8 09/13/25 06:08: POC Glucose 134 H 09/13/25 12:15: POC Glucose 203 H 09/13/25 17:12: POC Glucose 240 H Micro: Microbiology 09/10/25 23:37 Urine, Catheterized Urine Culture - Final Enterococcus faecalis 09/10/25 23:30 Blood Culture (Wb) - Right Forearm Blood Culture - Final Staphylococcus aureus 09/10/25 23:31 Blood Culture (Wb) - Left Hand Bacteria Detection (PCR) - Final Staphylococcus aureus 09/10/25 23:31 Blood Culture (Wb) - Left Hand Blood Culture - Final Staphylococcus aureus 09/11/25 05:00 Mucosa - Nasopharyngeal Respiratory Panel (PCR) - Final 09/10/25 23:37 Urine, Clean Catch Streptococcus pneumoniae Antigen (M - Final 09/11/25 04:05 Nasal Secretion MRSA (PCR) - Final 09/10/25 23:30 Mucosa - Nose SARS-CoV-2, Influenza & RSV (PCR) - Final Rhythm Strip Rhythm Strip: A-fib Rate: 122 Ectopy: None Physical Exam Narrative Seen and examined. Tmax 100.2 Fahrenheit on 09/12 midnight. Afebrile in last 24 hours. As per patient's sister, he had a fever 100.8 Fahrenheit at intermediate. Shortness of breath better. He has been coughing up phlegm for about a month yellowish. Needed assistance to stand up or walk. Physical exam General: Alert, Oriented x3, Cooperative HEENT: Atraumatic, PERRLA, EOMI, Normocephalic. Oral: No Gingival or Mucosal Lesions/ Ulcerations Neck: Supple, No JVD, Negative Carotid Bruits Chest wall/Lungs: Air entry diminished in bilateral lung bases. Bilateral lungs coarse crepitation Cardiovascular: Irregular A-fib rhythm, Normal S1,S2, systolic murmur Abdomen: Bowel Sounds Present, Soft, Non Tender, Non-Distended. Mild dyspnea at rest : No dysuria. No renal angle tenderness. No suprapubic tenderness. Extremities: Mild edema, Capillary Refill Less than 3 Seconds Skin: No rashes, No breakdown Musculoskeletal: No Tenderness to Palpation of Joints or Extremities. Neurological: Cranial nerves II-XII grossly intact, DTR 2+/4. No acute focal neurological deficit. Psych/Mental Status: Normal Affect, Appropriate. Assessment & Plan Assessment/Plan (1) Sepsis: (2) Pneumonia: PLAN: Plan Patient is an 89-year-old gentleman with multiple comorbidities from an extended care facility admitted with hypotension and assessment of sepsis secondary to bilateral pneumonia made admitted to the intensive care unit where patient is being managed per protocol. Patient seen and examined. Initial assessment including history and physical reviewed 1. Acute dyspnea probably due to acute on chronic decompensated heart failure, NYHA class III: Low suspicion for underlying pneumonia. 2. Acute on chronic HFpEF, valvular heart disease, history of aortic valve replacement, CAD status post CABG and chronic LBBB.: Mild troponin elevation nonischemic in nature, due to acute myocardial injury from increased cardiac demand Echo on 08/15 shows EF 40%. Mild to moderate global LV and mild RV systolic dysfunction. Right and left atria are mildly enlarged. Mild MR, 1-2+ TR, moderate pulmonary hypertension. Bioprosthetic AV valve. 09/13: Currently patient is not short of breath. Furosemide as needed. 3. Paroxysmal A-fib with RVR: On Amio drip and then switched to oral oral. On Eliquis 5 mg twice daily 09/13: Heart rate is controlled. 4. CKD stage IIIb: Admission BUN/creatinine 36/1.2, no significant change. Estimated creatinine clearance 44 mL/min 09/13: Creatinine on baseline. 5. Hypertension: Blood pressure on lower side 6. Dyslipidemia: On statin atorvastatin 40 mg nightly 7. BPH: Prelim urine culture shows GPC possible Enterococcus 50,000?80,000 colonies, in nonpathologic range. 8. DM type 2: Glucoses reasonably controlled, 157. 9. Staph aureus bacteremia: Both aerobic and anaerobic bottles of blood culture shows GPC Staph aureus, exact identification still pending but medication not detected. ID consulted. Patient started on IV cefazolin 2 g IV every 8 hourly. 09/13: Repeat culture was ordered 09/12 and today by ID. On IV cefazolin. Might need JS as per ID. 10. DVT prophylaxis on Eliquis 5 mg p.o. twice daily Microbiology Past 72 Hours 09/10/25 23:37 Urine, Catheterized Urine Culture - Final Enterococcus faecalis 09/10/25 23:30 Blood Culture (Wb) - Right Forearm Blood Culture - Final Staphylococcus aureus 09/10/25 23:31 Blood Culture (Wb) - Left Hand Bacteria Detection (PCR) - Final Staphylococcus aureus 09/10/25 23:31 Blood Culture (Wb) - Left Hand Blood Culture - Final Staphylococcus aureus 09/11/25 05:00 Mucosa - Nasopharyngeal Respiratory Panel (PCR) - Final 09/10/25 23:37 Urine, Clean Catch Streptococcus pneumoniae Antigen (M - Final 09/11/25 04:05 Nasal Secretion MRSA (PCR) - Final 09/10/25 23:30 Mucosa - Nose SARS-CoV-2, Influenza & RSV (PCR) - Final Laboratory Results 09/12/25 22:22: POC Glucose 179 H 09/13/25 05:37: WBC 6.8, RBC 3.82 L, Hgb 8.9 L, Hct 27.3 L, MCV 71.5 L, MCH 23.3 L, MCHC 32.6, RDW Std Deviation 52.6 H, RDW Coeff of Torie 20.4 H, Plt Count 104 L, MPV 10.7, Immature Gran % (Auto) 0.600, Neut % (Auto) 80.9 H, Lymph % (Auto) 8.1 L, [place] % (Auto) 5.6, Eos % (Auto) 4.7, Baso % (Auto) 0.1, Absolute Neuts (auto) 5.5, Absolute Lymphs (auto) 0.55 L, Nucleated RBC % 0, Differential Comment SCANNED, Sodium 132 L, Potassium 3.6, Chloride 96 L, Carbon Dioxide 26.1, Anion Gap 10, BUN 48 H, Creatinine 1.12, Estim Creat Clear Calc 45.59 L, Est GFR (MDRD) Non-Af 63, BUN/Creatinine Ratio 43.2 H, Glucose 139 H, Calcium 8.8 09/13/25 06:08: POC Glucose 134 H 09/13/25 12:15: POC Glucose 203 H 09/13/25 17:12: POC Glucose 240 H Microbiology Past 72 Hours 09/10/25 23:37 Urine, Catheterized Urine Culture - Preliminary GPC Poss Enterococcus sp 09/10/25 23:31 Blood Culture (Wb) - Left Hand Bacteria Detection (PCR) - Final Staphylococcus aureus 09/10/25 23:31 Blood Culture (Wb) - Left Hand Blood Culture - Preliminary Staphylococcus aureus 09/10/25 23:30 Blood Culture (Wb) - Right Forearm Blood Culture - Preliminary Staphylococcus species 09/11/25 05:00 Mucosa - Nasopharyngeal Respiratory Panel (PCR) - Final 09/10/25 23:37 Urine, Clean Catch Streptococcus pneumoniae Antigen (M - Final 09/11/25 04:05 Nasal Secretion MRSA (PCR) - Final 09/10/25 23:30 Mucosa - Nose SARS-CoV-2, Influenza & RSV (PCR) - Final Laboratory Results 09/11/25 16:56: POC Glucose 141 H 09/11/25 20:49: POC Glucose 167 H 09/12/25 06:20: POC Glucose 161 H 09/12/25 08:00: WBC 8.7, RBC 3.92 L, Hgb 9.1 L, Hct 28.5 L, MCV 72.7 L, MCH 23.2 L, MCHC 31.9 L, RDW Std Deviation 54.3 H, RDW Coeff of Torie 20.9 H, Plt Count 111 L, MPV 10.3, Immature Gran % (Auto) 0.300, Neut % (Auto) 85.8 H, Lymph % (Auto) 6.8 L, [place] % (Auto) 4.5, Eos % (Auto) 2.4, Baso % (Auto) 0.2, Absolute Neuts (auto) 7.5, Absolute Lymphs (auto) 0.59 L, Nucleated RBC % 0, Sodium 134, Potassium 3.6, Chloride 98, Carbon Dioxide 25.8, Anion Gap 10, BUN 43 H, Creatinine 1.16, Estim Creat Clear Calc 44.02 L, Est GFR (MDRD) Non-Af 61, BUN/Creatinine Ratio 37.4 H, Glucose 157 H, Calcium 8.7, Phosphorus 3.3, Magnesium 2.1 09/12/25 11:26: POC Glucose 220 H Clinical Impression(s) from Imaging Studies Chest X-Ray 09/10/25 11:55 IMPRESSION: Again are noted changes from prior metallic valve replacement. Unremarkable median sternotomy wires. Unchanged blunting of the costophrenic angles, probably adhesions versus minimal bilateral pleural effusions. Decreased bilateral basilar pulmonary infiltrates. Enlarged cardiac silhouette. [facility] Chest/Abdomen/Pelvis CT 10/30/25 00:21 IMPRESSION: Bilateral pleural thickening. Minimal bilateral pleural effusions. Passive atelectatic airspace disease of the lower lobes. Bilateral basilar multifocal ground-glass densities of the lungs, probably multifocal pneumonia, not present on prior exam. Mild bilateral basilar bronchiectatic changes. Mild cardiomegaly. Changes from prior aortic valve replacement. Mildly prominent mediastinal lymph nodes are noted with the largest measuring 1.3 cm. Small sliding hiatal hernia. Diffuse thickening of the stomach suggestive of gastritis. Dilated supra hepatic IVC suggestive of dysfunction of the right cardiac cavities. Hepatomegaly. Diffuse irregularity of the hepatic contour, probably secondary to chronic parenchymal liver disease. Mild splenomegaly. Thickened gallbladder with surrounding mild amount of free fluid, probably secondary to chronic parenchymal liver disease. Mild free ascitic fluid in the abdomen and pelvis. Uncomplicated colonic diverticulosis. Scattered right renal simple cysts are noted with the largest measuring 1.5 cm. Moderate prostatomegaly. Diffuse thickening of the wall of the bladder. Chronic bladder outlet obstruction versus cystitis. Mildly prominent retroperitoneal lymph nodes are noted with the largest measuring 1.2 cm. Mildly prominent rai hepatis lymph nodes are noted with the largest measuring 1.2 cm, probably reactive. Scattered prostatic calcifications. Mild osteopenia. Moderate diffuse spondylosis. Unremarkable metallic prosthesis of the right hip. [id number] Echocardiogram 09/11/25 07:51 Interpretation Summary The left ventricular ejection fraction is 40 %. Normal LV size. Mild to moderate global left ventricular systolic dysfunction. Mild global right ventricular systolic dysfunction. The left atrium is mildly enlarged. The right atrium is mildly enlarged. Moderate mitral annular calcification. Mild (1+) mitral valve insufficiency. Mild-Moderate (1-2+) tricuspid valve insufficiency. Moderate pulmonary hypertension. Bioprosthetic aortic valve. Mild concentric left ventricular hypertrophy. Ordering Physician: Aston Barker Referring Physician: Amador Calles Performed By: Perkins, Tachian[place], RDCS Charges/Coding Visit Charges Inpatient E&M: 50495 Subs Hosp L2
[2025-09-14 03:10] VITALS: BP 112/60; PULSE 73; RESP 18; TEMP 36.6; O2SAT 100
[2025-09-14 05:15] LABS: Hematocrit 27.1 % (40-54); Hemoglobin 8.9 g/dL (13.0-16.5); Immature Granulocytes Count 0.040 X10^3/uL (0.0-0.0); Mean Corp Hgb Conc 32.8 g/dL (32-36); Mean Corpuscular Volume 71.1 fL (80-94); NRBC Flagged by Analyzer 0 % (0-5); POSITIVE MORPHOLOGY YES; Platelet Count 117 K/mm3 (150-450); RBC Distribution Width CV 20.5 % (11.6-14.6); RBC Distribution Width SD 52.4 fl (35.1-43.9); Red Blood Count 3.81 M/mm3 (4.6-6.2); White Blood Count 5.9 K/mm3 (4.4-11.0)
[2025-09-14 05:18] LABS: Differential Indicated SCAN CRITERIA MET
[2025-09-14 05:41] LABS: Anion Gap 10 (5-15); BUN 50 mg/dL (4-19); BUN/Creat Ratio 49.1 RATIO (10-20); Calcium,Total 8.7 mg/dL (7.6-11.0); Carbon Dioxide 25.8 mmol/L (21.0-32.0); Chloride 97 mmol/L (98-108); Estimated Creatinine Clearance 50.56 ml/min (50-250); Glucose 128 mg/dL (70-99); Potassium 3.4 mmol/L (3.3-5.1)
[2025-09-14 06:05] LABS: Anisocytosis 2+; Differential Comment SCANNED
[2025-09-14] MEDS: Cefazolin 2 GM in 0.9% Normal Saline (100mL Bag) 100 ML IV ×3 (06:19→22:05)
[2025-09-14 09:07] VITALS: BP 113/77; PULSE 79; RESP 18; TEMP 36.6; O2SAT 99
[2025-09-14] MEDS: APIXABAN 5 MG TABLET PO ×2 (09:18→22:05)
[2025-09-14 09:20] VITALS: BP 113/77; PULSE 79
[2025-09-14] MEDS: Senna/Docusate Sodium 1 Tablet 2 TABLET PO (09:21)
[2025-09-14] MEDS: Ensure Plus High Protein 120 ML LIQUID PO ×3 (09:34→17:49)
[2025-09-14 14:58] VITALS: BP 111/68; PULSE 68; RESP 16; TEMP 36.9; O2SAT 100
--- NOTE | 2025-09-14 15:30 | PN.HOSP_ITS ---
Reason for Visit
--- NOTE | 2025-09-14 15:30 | PCM.PN.HOSP ---
Reason for Visit Chief Complaint: Dyspnea, productive cough, F/C, N/V. Objective Data Objective Data Vital Signs: Vital Signs Temp Pulse Resp BP Pulse Ox O2 Del Method O2 Flow Rate 98.4 F 68 16 111/68 100 Nasal Cannula 2 09/14/25 14:58 09/14/25 14:58 09/14/25 14:58 09/14/25 14:58 09/14/25 14:58 09/14/25 14:00 09/14/25 14:00 FiO2 2 09/11/25 21:35 Oxygen Flow Rate (L/min) 2 Oxygen Delivery Method Nasal Cannula Weight: 158 lb 1.143 oz Body Mass Index (BMI) 23.3 Intake & Output: Intake and Output for Last 24 Hours 09/12/25 09/13/25 09/14/25 23:59 23:59 22:59 Intake Total 1370.57 / 1370.57 330 / 330 110 / 110 Output Total 650 / 650 850 / 1200 850 / 850 Balance 720.57 / 720.57 -520 / -870 -740 / -740 Lab / Micro Data 09/14/25 05:06 09/14/25 05:06 Labs: Laboratory Results - last 24 hr 09/13/25 17:12: POC Glucose 240 H 09/13/25 22:11: POC Glucose 162 H 09/14/25 05:06: WBC 5.9, RBC 3.81 L, Hgb 8.9 L, Hct 27.1 L, MCV 71.1 L, MCH 23.4 L, MCHC 32.8, RDW Std Deviation 52.4 H, RDW Coeff of Torie 20.5 H, Plt Count 117 L, MPV TNP, Immature Gran % (Auto) 0.700, Neut % (Auto) 75.5 H, Lymph % (Auto) 10.8 L, [place] % (Auto) 8.0, Eos % (Auto) 4.7, Baso % (Auto) 0.3, Absolute Neuts (auto) 4.5, Absolute Lymphs (auto) 0.64 L, Nucleated RBC % 0, Differential Comment SCANNED, Anisocytosis 2+, Sodium 132 L, Potassium 3.4, Chloride 97 L, Carbon Dioxide 25.8, Anion Gap 10, BUN 50 H, Creatinine 1.01, Estim Creat Clear Calc 50.56, Est GFR (MDRD) Non-Af 72, BUN/Creatinine Ratio 49.1 H, Glucose 128 H, Calcium 8.7 09/14/25 06:17: POC Glucose 134 H 09/14/25 11:47: POC Glucose 240 H Micro: Microbiology 09/12/25 09:45 Blood Culture (Wb) - Anticubital Left Blood Culture - Preliminary No growth in 48 hours. 09/10/25 23:37 Urine, Catheterized Urine Culture - Final Enterococcus faecalis 09/10/25 23:30 Blood Culture (Wb) - Right Forearm Blood Culture - Final Staphylococcus aureus 09/10/25 23:31 Blood Culture (Wb) - Left Hand Bacteria Detection (PCR) - Final Staphylococcus aureus 09/10/25 23:31 Blood Culture (Wb) - Left Hand Blood Culture - Final Staphylococcus aureus 09/11/25 05:00 Mucosa - Nasopharyngeal Respiratory Panel (PCR) - Final 09/10/25 23:37 Urine, Clean Catch Streptococcus pneumoniae Antigen (M - Final 09/11/25 04:05 Nasal Secretion MRSA (PCR) - Final 09/10/25 23:30 Mucosa - Nose SARS-CoV-2, Influenza & RSV (PCR) - Final Rhythm Strip Rhythm Strip: A-fib Rate: 122 Ectopy: None Physical Exam Narrative Seen and examined. Tmax 100.2 Fahrenheit on 09/12 midnight. Afebrile in last 48 hours. Discussed with ID As per patient's sister, he had a fever 100.8 Fahrenheit at [facility]. Shortness of breath better. He has been coughing up phlegm for about a month yellowish. Needed assistance to stand up or walk. Physical exam General: Alert, Oriented x3, Cooperative HEENT: Atraumatic, PERRLA, EOMI, Normocephalic. Oral: No Gingival or Mucosal Lesions/ Ulcerations Neck: Supple, No JVD, Negative Carotid Bruits Chest wall/Lungs: Air entry diminished in bilateral lung bases. Bilateral lungs coarse crepitation Cardiovascular: Irregular A-fib rhythm, Normal S1,S2, systolic murmur Abdomen: Bowel Sounds Present, Soft, Non Tender, Non-Distended. Mild dyspnea at rest : No dysuria. No renal angle tenderness. No suprapubic tenderness. Extremities: Mild edema, Capillary Refill Less than 3 Seconds Skin: No rashes, No breakdown Musculoskeletal: No Tenderness to Palpation of Joints or Extremities. 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 No acute focal neurological deficit. Psych/Mental Status: Normal Affect, Appropriate. Assessment & Plan Assessment/Plan (1) Sepsis: (2) Pneumonia: PLAN: Plan Patient is an 89-year-old gentleman with multiple comorbidities from an extended care facility admitted with hypotension and assessment of sepsis secondary to bilateral pneumonia made admitted to the intensive care unit where patient is being managed per protocol. Patient seen and examined. Initial assessment including history and physical reviewed 1. Acute dyspnea probably due to acute on chronic decompensated heart failure, NYHA class III: Low suspicion for underlying pneumonia. 2. Acute on chronic HFpEF, valvular heart disease, history of aortic valve replacement, CAD status post CABG and chronic LBBB.: Mild troponin elevation nonischemic in nature, due to acute myocardial injury from increased cardiac demand Echo on 08/15 shows EF 40%. Mild to moderate global LV and mild RV systolic dysfunction. Right and left atria are mildly enlarged. Mild MR, 1-2+ TR, moderate pulmonary hypertension. Bioprosthetic AV valve. 09/13: Currently patient is not short of breath. Furosemide as needed. 09/14: Patient short of breath. On heart failure regimen including Lasix. Metoprolol dose increased to 25 mg twice daily. 3. Paroxysmal A-fib with RVR: On Amio drip and then switched to oral oral. On Eliquis 5 mg twice daily 09/13: Heart rate is controlled. 4. CKD stage IIIb: Admission BUN/creatinine 36/1.2, no significant change. Estimated creatinine clearance 44 mL/min 09/13: Creatinine on baseline. 5. Hypertension: Blood pressure on lower side 6. Dyslipidemia: On statin atorvastatin 40 mg nightly 7. BPH: Prelim urine culture shows GPC possible Enterococcus 50,000?80,000 colonies, in nonpathologic range. 8. DM type 2: Glucoses reasonably controlled, 157. 9. Staph aureus bacteremia: Both aerobic and anaerobic bottles of blood culture shows GPC Staph aureus, exact identification still pending but medication not detected. ID consulted. Patient started on IV cefazolin 2 g IV every 8 hourly. 09/13: Repeat culture was ordered 09/12 and today by ID. On IV cefazolin. Might need JS as per ID. 09/14: Discussed with ID. Plan for JS tomorrow therefore n.p.o. past midnight. Repeat blood culture ordered. Continue IV cefazolin. Patient had bioprosthetic aortic valve surgery in 2019. 10. DVT prophylaxis on Eliquis 5 mg p.o. twice daily Microbiology Past 72 Hours 09/10/25 23:37 Urine, Catheterized Urine Culture - Final Enterococcus faecalis 09/10/25 23:30 Blood Culture (Wb) - Right Forearm Blood Culture - Final Staphylococcus aureus 09/10/25 23:31 Blood Culture (Wb) - Left Hand Bacteria Detection (PCR) - Final Staphylococcus aureus 09/10/25 23:31 Blood Culture (Wb) - Left Hand Blood Culture - Final Staphylococcus aureus 09/11/25 05:00 Mucosa - Nasopharyngeal Respiratory Panel (PCR) - Final 09/10/25 23:37 Urine, Clean Catch Streptococcus pneumoniae Antigen (M - Final 09/11/25 04:05 Nasal Secretion MRSA (PCR) - Final 09/10/25 23:30 Mucosa - Nose SARS-CoV-2, Influenza & RSV (PCR) - Final Laboratory Results 09/12/25 22:22: POC Glucose 179 H 09/13/25 05:37: WBC 6.8, RBC 3.82 L, Hgb 8.9 L, Hct 27.3 L, MCV 71.5 L, MCH 23.3 L, MCHC 32.6, RDW Std Deviation 52.6 H, RDW Coeff of Torie 20.4 H, Plt Count 104 L, MPV 10.7, Immature Gran % (Auto) 0.600, Neut % (Auto) 80.9 H, Lymph % (Auto) 8.1 L, [place] % (Auto) 5.6, Eos % (Auto) 4.7, Baso % (Auto) 0.1, Absolute Neuts (auto) 5.5, Absolute Lymphs (auto) 0.55 L, Nucleated RBC % 0, Differential Comment SCANNED, Sodium 132 L, Potassium 3.6, Chloride 96 L, Carbon Dioxide 26.1, Anion Gap 10, BUN 48 H, Creatinine 1.12, Estim Creat Clear Calc 45.59 L, Est GFR (MDRD) Non-Af 63, BUN/Creatinine Ratio 43.2 H, Glucose 139 H, Calcium 8.8 09/13/25 06:08: POC Glucose 134 H 09/13/25 12:15: POC Glucose 203 H 09/13/25 17:12: POC Glucose 240 H Microbiology Past 72 Hours 09/10/25 23:37 Urine, Catheterized Urine Culture - Preliminary GPC Poss Enterococcus sp 09/10/25 23:31 Blood Culture (Wb) - Left Hand Bacteria Detection (PCR) - Final Staphylococcus aureus 09/10/25 23:31 Blood Culture (Wb) - Left Hand Blood Culture - Preliminary Staphylococcus aureus 09/10/25 23:30 Blood Culture (Wb) - Right Forearm Blood Culture - Preliminary Staphylococcus species 09/11/25 05:00 Mucosa - Nasopharyngeal Respiratory Panel (PCR) - Final 09/10/25 23:37 Urine, Clean Catch Streptococcus pneumoniae Antigen (M - Final 09/11/25 04:05 Nasal Secretion MRSA (PCR) - Final 09/10/25 23:30 Mucosa - Nose SARS-CoV-2, Influenza & RSV (PCR) - Final Laboratory Results 09/11/25 16:56: POC Glucose 141 H 09/11/25 20:49: POC Glucose 167 H 09/12/25 06:20: POC Glucose 161 H 09/12/25 08:00: WBC 8.7, RBC 3.92 L, Hgb 9.1 L, Hct 28.5 L, MCV 72.7 L, MCH 23.2 L, MCHC 31.9 L, RDW Std Deviation 54.3 H, RDW Coeff of Torie 20.9 H, Plt Count 111 L, MPV 10.3, Immature Gran % (Auto) 0.300, Neut % (Auto) 85.8 H, Lymph % (Auto) 6.8 L, [place] % (Auto) 4.5, Eos % (Auto) 2.4, Baso % (Auto) 0.2, Absolute Neuts (auto) 7.5, Absolute Lymphs (auto) 0.59 L, Nucleated RBC % 0, Sodium 134, Potassium 3.6, Chloride 98, Carbon Dioxide 25.8, Anion Gap 10, BUN 43 H, Creatinine 1.16, Estim Creat Clear Calc 44.02 L, Est GFR (MDRD) Non-Af 61, BUN/Creatinine Ratio 37.4 H, Glucose 157 H, Calcium 8.7, Phosphorus 3.3, Magnesium 2.1 09/12/25 11:26: POC Glucose 220 H Clinical Impression(s) from Imaging Studies Chest X-Ray 09/10/25 11:55 IMPRESSION: Again are noted changes from prior metallic valve replacement. Unremarkable median sternotomy wires. Unchanged blunting of the costophrenic angles, probably adhesions versus minimal bilateral pleural effusions. Decreased bilateral basilar pulmonary infiltrates. Enlarged cardiac silhouette. Reading Location: [place] [id number] Chest/Abdomen/Pelvis CT 09/11/25 00:21 IMPRESSION: Bilateral pleural thickening. Minimal bilateral pleural effusions. Passive atelectatic airspace disease of the lower lobes. Bilateral basilar multifocal ground-glass densities of the lungs, probably multifocal pneumonia, not present on prior exam. Mild bilateral basilar bronchiectatic changes. Mild cardiomegaly. Changes from prior aortic valve replacement. Mildly prominent mediastinal lymph nodes are noted with the largest measuring 1.3 cm. Small sliding hiatal hernia. Diffuse thickening of the stomach suggestive of gastritis. Dilated supra hepatic IVC suggestive of dysfunction of the right cardiac cavities. Hepatomegaly. Diffuse irregularity of the hepatic contour, probably secondary to chronic parenchymal liver disease. Mild splenomegaly. Thickened gallbladder with surrounding mild amount of free fluid, probably secondary to chronic parenchymal liver disease. Mild free ascitic fluid in the abdomen and pelvis. Uncomplicated colonic diverticulosis. Scattered right renal simple cysts are noted with the largest measuring 1.5 cm. Moderate prostatomegaly. Diffuse thickening of the wall of the bladder. Chronic bladder outlet obstruction versus cystitis. Mildly prominent retroperitoneal lymph nodes are noted with the largest measuring 1.2 cm. Mildly prominent rai hepatis lymph nodes are noted with the largest measuring 1.2 cm, probably reactive. Scattered prostatic calcifications. Mild osteopenia. Moderate diffuse spondylosis. Unremarkable metallic prosthesis of the right hip. Reading Location: [place] [id number] Echocardiogram 09/11/25 07:51 Interpretation Summary The left ventricular ejection fraction is 40 %. Normal LV size. Mild to moderate global left ventricular systolic dysfunction. Mild global right ventricular systolic dysfunction. The left atrium is mildly enlarged. The right atrium is mildly enlarged. Moderate mitral annular calcification. Mild (1+) mitral valve insufficiency. Mild-Moderate (1-2+) tricuspid valve insufficiency. Moderate pulmonary hypertension. Bioprosthetic aortic valve. Mild concentric left ventricular hypertrophy. Ordering Physician: Aston Barker Referring Physician: Amador Calles Performed By: Bev Perkins RDCS Charges/Coding Visit Charges Inpatient E&M: 79905 Subs Hosp L2
[2025-09-14 21:55] VITALS: BP 111/68; PULSE 79; RESP 18; TEMP 36.9; O2SAT 100
[2025-09-14 22:05] VITALS: BP 111/68; PULSE 79
[2025-09-15 03:30] VITALS: BP 103/64; PULSE 68; RESP 18; TEMP 36.8; O2SAT 100
[2025-09-15 05:47] LABS: Hematocrit 27.6 % (40-54); Hemoglobin 9.0 g/dL (13.0-16.5); Immature Granulocytes Count 0.060 X10^3/uL (0.0-0.0); Mean Corp Hgb Conc 32.6 g/dL (32-36); Mean Corpuscular Volume 71.9 fL (80-94); Mean Platelet Vol. 10.7 fl (6.2-12.0); NRBC Flagged by Analyzer 0 % (0-5); POSITIVE MORPHOLOGY YES; Platelet Count 138 K/mm3 (150-450); RBC Distribution Width CV 20.5 % (11.6-14.6); RBC Distribution Width SD 52.8 fl (35.1-43.9); Red Blood Count 3.84 M/mm3 (4.6-6.2); White Blood Count 6.4 K/mm3 (4.4-11.0)
[2025-09-15 05:51] LABS: Differential Indicated SCAN CRITERIA MET
[2025-09-15 06:13] LABS: Anion Gap 8 (5-15); BUN 35 mg/dL (4-19); BUN/Creat Ratio 39.6 RATIO (10-20); Calcium,Total 8.6 mg/dL (7.6-11.0); Carbon Dioxide 27.8 mmol/L (21.0-32.0); Chloride 99 mmol/L (98-108); Estimated Creatinine Clearance 58.02 ml/min (50-250); Glucose 120 mg/dL (70-99); Potassium 3.4 mmol/L (3.3-5.1)
[2025-09-15] MEDS: Cefazolin 2 GM in 0.9% Normal Saline (100mL Bag) 100 ML IV ×2 (06:25→13:29)
[2025-09-15 07:28] LABS: Anisocytosis 1+
--- NOTE | 2025-09-15 07:49 | PN.HOSP_ITS ---
Reason for Visit
--- NOTE | 2025-09-15 07:49 | PCM.PN.HOSP ---
Reason for Visit Chief Complaint: Dyspnea, productive cough, F/C, N/V. Subjective Subjective Patient is an 89-year-old gentleman with multiple comorbidities from an extended care facility admitted with hypotension and assessment of sepsis secondary to bilateral pneumonia made admitted to the intensive care unit where patient is being managed per protocol. Objective Data Objective Data Vital Signs: Vital Signs Temp Pulse Resp BP Pulse Ox O2 Del Method O2 Flow Rate 98.2 F 68 18 103/64 100 Nasal Cannula 2 09/15/25 03:30 09/15/25 03:30 09/15/25 03:30 09/15/25 03:30 09/15/25 03:30 09/15/25 03:30 09/15/25 03:30 FiO2 2 09/11/25 21:35 Oxygen Flow Rate (L/min) 2 Oxygen Delivery Method Nasal Cannula Weight: 71.7 kg Body Mass Index (BMI) 23.3 Intake & Output: Intake and Output for Last 24 Hours 09/13/25 09/14/25 09/15/25 23:59 22:59 23:59 Intake Total 330 / 330 330 / 330 110 / 110 Output Total 850 / 1200 1750 / 2250 1150 / 1150 Balance -520 / -870 -1420 / -1920 -1040 / -1040 Lab / Micro Data 09/15/25 05:38 09/15/25 05:38 Labs: Laboratory Results - last 24 hr 09/14/25 11:47: POC Glucose 240 H 09/14/25 16:52: POC Glucose 175 H 09/14/25 22:01: POC Glucose 195 H 09/15/25 05:38: WBC 6.4, RBC 3.84 L, Hgb 9.0 L, Hct 27.6 L, MCV 71.9 L, MCH 23.4 L, MCHC 32.6, RDW Std Deviation 52.8 H, RDW Coeff of Torie 20.5 H, Plt Count 138 L, MPV 10.7, Immature Gran % (Auto) 0.900, Neut % (Auto) 76.4 H, Lymph % (Auto) 10.4 L, Blair % (Auto) 8.2, Eos % (Auto) 3.8, Baso % (Auto) 0.3, Absolute Neuts (auto) 4.9, Absolute Lymphs (auto) 0.66 L, Nucleated RBC % 0, Anisocytosis 1+, Sodium 135, Potassium 3.4, Chloride 99, Carbon Dioxide 27.8, Anion Gap 8, BUN 35 H, Creatinine 0.88, Estim Creat Clear Calc 58.02, Est GFR (MDRD) Non-Af 83, BUN/Creatinine Ratio 39.6 H, Glucose 120 H, Calcium 8.6 09/15/25 06:24: POC Glucose 124 H Micro: Microbiology 09/12/25 09:45 Blood Culture (Wb) - Anticubital Left Blood Culture - Preliminary No growth in 48 hours. 09/10/25 23:37 Urine, Catheterized Urine Culture - Final Enterococcus faecalis 09/10/25 23:30 Blood Culture (Wb) - Right Forearm Blood Culture - Final Staphylococcus aureus 09/10/25 23:31 Blood Culture (Wb) - Left Hand Bacteria Detection (PCR) - Final Staphylococcus aureus 09/10/25 23:31 Blood Culture (Wb) - Left Hand Blood Culture - Final Staphylococcus aureus 09/11/25 05:00 Mucosa - Nasopharyngeal Respiratory Panel (PCR) - Final 09/10/25 23:37 Urine, Clean Catch Streptococcus pneumoniae Antigen (M - Final 09/11/25 04:05 Nasal Secretion MRSA (PCR) - Final 09/10/25 23:30 Mucosa - Nose SARS-CoV-2, Influenza & RSV (PCR) - Final Rhythm Strip Rhythm Strip: A-fib Rate: 122 Ectopy: None Physical Exam Narrative GENERAL: cooperative HEENT: Atraumatic; normocephalic EYES; Anicteric, Normal Conjunctiva NECK; supple, normal thyroid, RESPIRATORY: Diminished to auscultation CARDIOVASCULAR: Regular S1 S2, GI: soft, normoactive bowel sounds, : No Renal angle tenderness; EXTREMITIES: No edema, no clubbing, MUSCULOSKELETAL: no muscle wasting NEURO: Awake; no lateralizing signs. SKIN: Scab on the posterior aspect right forearm posteriorly close to the wrist PSYCH; Flat affect Assessment & Plan Assessment/Plan (1) Sepsis: (2) Pneumonia: PLAN: Plan Patient is an 89-year-old gentleman with multiple comorbidities from an extended care facility admitted with hypotension and assessment of sepsis secondary to bilateral pneumonia made admitted to the intensive care unit where patient is being managed per protocol. 1. Acute dyspnea ? Due to combination of CHF as well as pneumonia 2. Acute on chronic congestive heart failure with reduced ejection fraction ? Echo from 3 did demonstrate EF of 40% with mild to moderate global LV and RV systolic dysfunction 3. Valvular heart disease ? With history of bioprosthetic aortic valve 4. Paroxysmal atrial fibrillation ? Managed with amiodarone switched to p.o. amiodarone on systemic anticoagulation with apixaban 5. Chronic kidney disease stage IIIb ? Kidney function at baseline 6. Essential hypertension ? Patient blood pressure remains stable 7. Dyslipidemia ?Patient is on statin therapy, continued at home dose 8. Diabetes mellitus type II -patient's oral hypoglycemics held. Placed on long acting insulin, Accu-Cheks a.c. and at bedtime and covered with sliding scale insulin 9. Staph bacteremia ? Patient blood and urine cultures came back positive for MSSA. Patient managed with IV cefazolin consult placed to ID recommended for patient to undergo JS patient kept n.p.o. after midnight. JS could not be performed. Case subsequently discussed with Dr. Hillman with ID plan is for patient to have a PICC line placed with treatment with cefazolin 10. BPH with lower urinary obstructive symptoms - Patient treated with tamsulosin and finasteride. Patient apparently did develop urinary retention resulting in the Webster catheter being placed 11. DVT prophylaxis ? On apixaban Time spent in the patient's overall evaluation,decision-making process, review of diagnostic data, adjustment of management, discussion with other providers, nursing nursing and ancillary staff involved in patient's care documentation, 40 Minutes Charges/Coding Visit Charges Inpatient E&M: 08008 Subs Hosp L2
[2025-09-15 09:06] VITALS: BP 106/62; PULSE 66; RESP 18; TEMP 36.6; O2SAT 100
[2025-09-15 09:47] VITALS: PULSE 66
[2025-09-15] MEDS: APIXABAN 5 MG TABLET PO (09:47)
[2025-09-15] MEDS: Senna/Docusate Sodium 1 Tablet 2 TABLET PO (09:47)
[2025-09-15] MEDS: Ensure Plus High Protein 120 ML LIQUID PO ×2 (09:48→13:29)
--- NOTE | 2025-09-15 10:41 | CASEMGMT ---
Discharge Planning Updates, including IV script, sent via [facility] to [facility]. Kristen Rodriguez DC Planning Asst.
--- NOTE | 2025-09-15 12:56 | RAD_ITS ---
PROCEDURE: RAD/Chest 1 View (Portable)
--- NOTE | 2025-09-15 13:38 | PCM.TXEXTCAR ---
Diet Diet Order/Speech Therapy: INPATIENT Hospital Diet / Speech Therapy Order(s) 09/15/25 09:10 Diet: Regular - No Added Salt Routine Orders/Code Status Code Status: DNRCC-A DC O2, CPAP, BIPAP needs Home O2 Discharge instructions: Yes Type of respiratory needs?: Oxygen Oxygen frequency: Continuous (2) Continuous oxygen liters per minute: 2 Wound(s) RIGHT 3RD TOE: Wound Type: Stasis Ulcer RIGHT GREAT TOE: Wound Type: Hematoma LEFT WRIST: Wound Type: Hematoma RIGHT FOREARM: Wound Type: Skin Tear RIGHT ELBOW: Wound Type: Skin Tear BUTTOCKS: Wound Type: Pressure Injury Right Wrist: Wound Type: Surgical Incision Therapies Physical Therapy: Eval and Treat Occupational Therapy: Eval and Treat Speech Therapy: Eval and Treat Problem/Diagnosis (1) Sepsis: Status: Acute Code(s): A41.9 - Sepsis, unspecified organism (2) Pneumonia: Status: Acute Code(s): J18.9 - Pneumonia, unspecified organism Plan Patient is an 89-year-old gentleman with multiple comorbidities from an extended care facility admitted with hypotension and assessment of sepsis secondary to bilateral pneumonia made admitted to the intensive care unit where patient is being managed per protocol. 1. Acute dyspnea ? Due to combination of CHF as well as pneumonia 2. Acute on chronic congestive heart failure with reduced ejection fraction ? Echo from 10 3 did demonstrate EF of 40% with mild to moderate global LV and RV systolic dysfunction 3. Valvular heart disease ? With history of bioprosthetic aortic valve 4. Paroxysmal atrial fibrillation ? Managed with amiodarone switched to p.o. amiodarone on systemic anticoagulation with apixaban 5. Chronic kidney disease stage IIIb ? Kidney function at baseline 6. Essential hypertension ? Patient blood pressure remains stable 7. Dyslipidemia ?Patient is on statin therapy, continued at home dose 8. Diabetes mellitus type II -patient's oral hypoglycemics held. Placed on long acting insulin, Accu-Cheks a.c. and at bedtime and covered with sliding scale insulin 9. Staph bacteremia ? Patient blood and urine cultures came back positive for MSSA. Patient managed with IV cefazolin consult placed to ID recommended for patient to undergo JS patient kept n.p.o. after midnight. JS could not be performed. Case subsequently discussed with Dr. Hillman with ID plan is for patient to have a PICC line placed with treatment with cefazolin 10. BPH with lower urinary obstructive symptoms - Patient treated with tamsulosin and finasteride. Patient apparently did develop urinary retention resulting in the Webster catheter being placed 11. DVT prophylaxis ? On apixaban Time spent in the patient's overall evaluation,decision-making process, review of diagnostic data, adjustment of management, discussion with other providers, nursing nursing and ancillary staff involved in patient's care documentation, 40 Minutes Allergies/Procedures Done in Hospital Allergies No Known Allergies Allergy (Verified 08/14/25 08:47) Type of Care/Length of Stay Estimated LOS: Convalescent Care Less Than 30 days Type of Care Needed: Skilled Rehab Potential: Good Prognosis: Good Additional Orders/Day of Discharge Day of Discharge: 09/15/25 Dietary and Speech Recommendations Dietitian Recommendations/Changes: Continue regular no added salt to optimize PO intakes. Will continue 120mL EPHP 4x daily with medpass. If glucose levels become elevated recommend switching to glucerna shakes. Will monitor weight trends and labs. Discharge Plan Admission Admit Date/Time: 09/11/25 02:29 Attending Provider: Mason Simental Primary Care Provider: Amador Coffey Consulting Providers: Santa Dominguez; Mason Simental; Jose G Hillman; Richie Noriega Discharge Orders/Prescriptions Prescriptions: New cefazolin 2 gram recon soln 2,000 mg IV Q8H 39 Days Rx Instructions: stop date 10/24/25. Dx: mSSA bacteremia. Weekly bmp, cbc. Fax to [phone]. Routine picc care per protocol. albuterol sulfate 2.5 mg /3 mL (0.083 %) Solution For Nebulization 2.5 mg inhalation Q2H PRN PRN (Reason: Dyspnea, wheezing) Qty: 0 0RF amiodarone 200 mg Tablet 200 mg PO DAILY Qty: 0 0RF melatonin 3 mg Tablet 3 mg PO QHS PRN PRN (Reason: Insomnia) Qty: 0 0RF Ensure Plus High Protein 0.08 gram-1.5 kcal/mL Liquid 120 ml PO 4X/DAY Qty: 0 0RF Continued metoprolol tartrate 25 mg tablet 12.5 mg PO BID Qty: 90 3RF metformin 500 mg tablet 500 mg PO BID trazodone 50 mg tablet 50 mg PO QHS PRN (Reason: sleep) cetirizine 5 mg tablet 5 mg PO QDAY PRN (Reason: allergy symptoms) sertraline [Zoloft] 100 mg tablet 150 mg PO QDAY bumetanide 2 mg tablet 3 mg PO BID 90 Days Qty: 270 3RF dapagliflozin propanediol [Farxiga] 10 mg tablet 10 mg PO QDAY Qty: 90 3RF vitamins A,C,Z-lzef-srpsfw 1 EACH capsule 1 cap PO BID by-byc-bmikz-W3-lsxnqdv-vfomzw 1 EACH tablet 1 tab PO DAILY tamsulosin 0.4 MG capsule 0.8 mg PO DAILY@1730 finasteride [Proscar] 5 mg tablet 5 mg PO DAILY Qty: 30 0RF Rx Instructions: take one daily for prostate atorvastatin 40 mg tablet 40 mg PO QHS ferrous sulfate [FeroSul] 325 mg (65 mg iron) tablet 325 mg PO BID sennosides-docusate sodium [Stimulant Laxative Plus] 8.6-50 mg Tablet 1 tab PO DAILY Qty: 0 0RF acetaminophen 500 mg Tablet 1,000 mg PO Q6H PRN (Reason: pain 1-10) Qty: 0 0RF potassium chloride 20 mEq Tablet,Er Particles/Crystals 20 meq PO DAILYCM Qty: 0 0RF Eliquis 5 mg Tablet 5 mg PO BID Qty: 0 0RF clonazepam 0.5 mg tablet 0.5 mg PO Q12H spironolactone 25 mg tablet 25 mg PO QDAY Qty: 30 11RF Discontinued prednisone 20 mg tablet 40 mg PO Q12H Rx Instructions: stop 09/16/25 Referrals / Follow Up: Amador Coffey MD [Primary Care Provider, Family Practice] - Within 2 Weeks Jeremi Morel MD [Med Staff - Multifocal Lens Assembler, Internal Medicine] Disposition Disposition (needs filled in before D/C Order can be placed): Detention Facility
--- NOTE | 2025-09-15 13:40 | PCM.DC.SUM ---
Providers Date of Admission: 09/11/25 Date of Discharge: 09/15/25 Primary Care Physician: Dr. Amador Coffey MD Consultations 09/11/25 03:07 Consult: Mold Filler / Pulmonary Medicine Routine Consulting Provider: Intensivists/Pulmonary Med Reason for Consult: Sepsis, PNA, PAF/Flutter RVR, elevated trop/demand EMERGENT Consult: No MD Notified: Yes Date Notified: 09/11/25 Time Notified: 05:18 Method of Notification: Text 09/11/25 10:07 Consult: Cardiology Routine Consulting Provider: Thompson Diggs Reason for Consult: NSTEMI, CHF EMERGENT Consult: No Notified: Yes Date Notified: 09/11/25 Time Notified: 10:07 Method of Notification: Verbal Method of Consult:: In-Person Comments:: message sent to Dr. Diggs 09/12/25 09:19 Consult: Infectious Disease Routine Consulting Provider: Jose G Hillman Reason for Consult: Staph bacteremia EMERGENT Consult: No MD Notified: Yes Date Notified: 09/12/25 Time Notified: 09:19 Method of Notification: Text Reason For Visit: SEPSIS, BL MULTIFOCAL PNA,INDETERM CARDIAC ENZYMES Diagnosis Discharge Diagnosis (1) Sepsis: Status: Acute Code(s): A41.9 - Sepsis, unspecified organism (2) Pneumonia: Status: Acute Code(s): J18.9 - Pneumonia, unspecified organism Plan Patient is an 89-year-old gentleman with multiple comorbidities from an extended care facility admitted with hypotension and assessment of sepsis secondary to bilateral pneumonia made admitted to the intensive care unit where patient is being managed per protocol. 1. Acute dyspnea ? Due to combination of CHF as well as pneumonia 2. Acute on chronic congestive heart failure with reduced ejection fraction ? Echo from 3 did demonstrate EF of 40% with mild to moderate global LV and RV systolic dysfunction 3. Valvular heart disease ? With history of bioprosthetic aortic valve 4. Paroxysmal atrial fibrillation ? Managed with amiodarone switched to p.o. amiodarone on systemic anticoagulation with apixaban 5. Chronic kidney disease stage IIIb ? Kidney function at baseline 6. Essential hypertension ? Patient blood pressure remains stable 7. Dyslipidemia ?Patient is on statin therapy, continued at home dose 8. Diabetes mellitus type II -patient's oral hypoglycemics held. Placed on long acting insulin, Accu-Cheks a.c. and at bedtime and covered with sliding scale insulin 9. Staph bacteremia ? Patient blood and urine cultures came back positive for MSSA. Patient managed with IV cefazolin consult placed to ID recommended for patient to undergo JS patient kept n.p.o. after midnight. JS could not be performed. Case subsequently discussed with Dr. Hillman with ID plan is for patient to have a PICC line placed with treatment with cefazolin 10. BPH with lower urinary obstructive symptoms - Patient treated with tamsulosin and finasteride. Patient apparently did develop urinary retention resulting in the Webster catheter being placed 11. DVT prophylaxis ? On apixaban Time spent in the patient's overall evaluation,decision-making process, review of diagnostic data, adjustment of management, discussion with other providers, nursing nursing and ancillary staff involved in patient's care documentation, 40 Minutes Medications at Discharge Home Medications vitamins A,C,W-glzr-lfodbi 4,296 mcg-226 mg-90 mg capsule 1 cap PO BID EYE HEALTH 03/07/19 zqtjolrg-gr-jibxg 300 mcg-K 60 mcg-lycop 600 mcg-lutein 300 mcg tablet 1 tab PO DAILY supplement 10/25/19 tamsulosin 0.4 mg capsule 0.8 mg PO DAILY@1730 urinary retention 11/25/23 finasteride 5 mg tablet (Proscar) 5 mg PO DAILY prostate #30 tabs 11/27/23 metoprolol tartrate 25 mg tablet 12.5 mg (1/2 x 25 mg) PO BID high blood pressure #90 tabs 02/20/24 atorvastatin 40 mg tablet 40 mg PO QHS antihyperlipidemics 10/11/24 ferrous sulfate 325 mg (65 mg iron) tablet (FeroSul) 325 mg PO BID supplement 11/01/24 acetaminophen 500 mg tablet 1,000 mg (2 x 500 mg) PO Q6H PRN pain 1-10 #0 tabs 11/19/24 apixaban 5 mg tablet (Eliquis) 5 mg PO BID #0 tabs 11/19/24 potassium chloride 20 mEq tablet,extended release(part/cryst) 20 meq PO DAILYCM #0 tabs 11/19/24 sennosides 8.6 mg-docusate sodium 50 mg tablet (Stimulant Laxative Plus) 1 tab PO DAILY #0 tabs 11/19/24 cetirizine 5 mg tablet 5 mg PO QDAY PRN allergy symptoms 08/14/25 metformin 500 mg tablet 500 mg PO BID 08/14/25 sertraline 100 mg tablet (Zoloft) 150 mg PO QDAY 08/14/25 spironolactone 25 mg tablet 25 mg PO QDAY #30 tabs 08/14/25 trazodone 50 mg tablet 50 mg PO QHS PRN sleep 08/14/25 bumetanide 2 mg tablet 3 mg (1.5 x 2 mg) PO BID 90 days #270 tabs 09/09/25 dapagliflozin propanediol 10 mg tablet (Farxiga) 10 mg PO QDAY #90 tabs 09/09/25 clonazepam 0.5 mg tablet 0.5 mg PO Q12H 09/10/25 albuterol sulfate 2.5 mg/3 mL (0.083 %) solution for nebulization 2.5 mg (3 mL) inhalation Q2H PRN PRN Dyspnea, wheezing #0 mL 09/15/25 amiodarone 200 mg tablet 200 mg PO DAILY #0 tabs 09/15/25 cefazolin 2 gram intravenous solution 2,000 mg IV Q8H 39 days 09/15/25 food supplemt, lactose-reduced 0.08 gram-1.5 kcal/mL oral liquid (Ensure Plus High Protein) 120 ml PO 4X/DAY #0 mL 09/15/25 melatonin 3 mg tablet 3 mg PO QHS PRN PRN Insomnia #0 tabs 09/15/25 Physical Exam Narrative GENERAL: cooperative HEENT: Atraumatic; normocephalic EYES; Anicteric, Normal Conjunctiva NECK; supple, normal thyroid, RESPIRATORY: Diminished to auscultation CARDIOVASCULAR: Regular S1 S2, GI: soft, normoactive bowel sounds, : No Renal angle tenderness; EXTREMITIES: No edema, no clubbing, MUSCULOSKELETAL: no muscle wasting NEURO: Awake; no lateralizing signs. SKIN: Scab on the posterior aspect right forearm posteriorly close to the wrist PSYCH; Flat affect Weight / BMI Weight Weight: 71.7 kg Body Mass Index (BMI) 23.3 ABG / Lab / Microbiology Data 09/15/25 05:38 09/15/25 05:38 Laboratory: Laboratory Results - last 24 hr 09/14/25 16:52: POC Glucose 175 H 09/14/25 22:01: POC Glucose 195 H 09/15/25 05:38: WBC 6.4, RBC 3.84 L, Hgb 9.0 L, Hct 27.6 L, MCV 71.9 L, MCH 23.4 L, MCHC 32.6, RDW Std Deviation 52.8 H, RDW Coeff of Torie 20.5 H, Plt Count 138 L, MPV 10.7, Immature Gran % (Auto) 0.900, Neut % (Auto) 76.4 H, Lymph % (Auto) 10.4 L, Catron % (Auto) 8.2, Eos % (Auto) 3.8, Baso % (Auto) 0.3, Absolute Neuts (auto) 4.9, Absolute Lymphs (auto) 0.66 L, Nucleated RBC % 0, Anisocytosis 1+, Sodium 135, Potassium 3.4, Chloride 99, Carbon Dioxide 27.8, Anion Gap 8, BUN 35 H, Creatinine 0.88, Estim Creat Clear Calc 58.02, Est GFR (MDRD) Non-Af 83, BUN/Creatinine Ratio 39.6 H, Glucose 120 H, Calcium 8.6 09/15/25 06:24: POC Glucose 124 H 09/15/25 11:26: POC Glucose 246 H Microbiology: Microbiology 09/12/25 09:45 Blood Culture (Wb) - Anticubital Left Blood Culture - Preliminary No growth in 48 hours. 09/10/25 23:37 Urine, Catheterized Urine Culture - Final Enterococcus faecalis 09/10/25 23:30 Blood Culture (Wb) - Right Forearm Blood Culture - Final Staphylococcus aureus 09/10/25 23:31 Blood Culture (Wb) - Left Hand Bacteria Detection (PCR) - Final Staphylococcus aureus 09/10/25 23:31 Blood Culture (Wb) - Left Hand Blood Culture - Final Staphylococcus aureus 09/11/25 05:00 Mucosa - Nasopharyngeal Respiratory Panel (PCR) - Final 09/10/25 23:37 Urine, Clean Catch Streptococcus pneumoniae Antigen (M - Final 09/11/25 04:05 Nasal Secretion MRSA (PCR) - Final 09/10/25 23:30 Mucosa - Nose SARS-CoV-2, Influenza & RSV (PCR) - Final Radiography Diagnostic Testing: Radiology Impression Chest X-Ray 09/15/25 12:56 IMPRESSION: Small right and smaller left pleural effusions are seen with apparent increase on the right compared to the prior study. No pneumothorax is noted. Bilateral pulmonary airspace disease is similar to the prior study. Following placement of a right PICC line, tip projects near the expected junction of the SVC and right atrium. No pneumothorax is noted. The cardiomediastinal silhouette is stable, without evidence of cardiomegaly. Reading Location: [place] [address] D/C Instructions DC O2, CPAP, BIPAP Needs Home O2 Discharge instructions: Yes Type of respiratory needs?: Oxygen Oxygen frequency: Continuous (2) Continuous oxygen liters per minute: 2 DC home with Oxygen: Yes Home O2 MD Review: I have reviewed the oxygen testing, and the patient qualifies for home oxygen equipment and portability. The patient is mobile in the home and the community. Meaningful Use Info Meaningful Use Meaningful Use Diagnoses (Choose all that apply): CHF CHF WEI/ARB ordered at discharge?: No Reason WEI/ARB not ordered?: Hypotension Documented LVEF (%): 40 Discharge Plan Admission Admit Date/Time: 09/11/25 02:29 Attending Provider: Mason Simental Primary Care Provider: Amador Coffey Consulting Providers: Santa Dominguez; Mason Simental; Jose G Hillman; Richie Noriega Discharge Orders/Prescriptions Prescriptions: New cefazolin 2 gram recon soln 2,000 mg IV Q8H 39 Days Rx Instructions: stop date 10/24/25. Dx: mSSA bacteremia. Weekly bmp, cbc. Fax to [phone]. Routine picc care per protocol. albuterol sulfate 2.5 mg /3 mL (0.083 %) Solution For Nebulization 2.5 mg inhalation Q2H PRN PRN (Reason: Dyspnea, wheezing) Qty: 0 0RF amiodarone 200 mg Tablet 200 mg PO DAILY Qty: 0 0RF melatonin 3 mg Tablet 3 mg PO QHS PRN PRN (Reason: Insomnia) Qty: 0 0RF Ensure Plus High Protein 0.08 gram-1.5 kcal/mL Liquid 120 ml PO 4X/DAY Qty: 0 0RF Continued metoprolol tartrate 25 mg tablet 12.5 mg PO BID Qty: 90 3RF metformin 500 mg tablet 500 mg PO BID trazodone 50 mg tablet 50 mg PO QHS PRN (Reason: sleep) cetirizine 5 mg tablet 5 mg PO QDAY PRN (Reason: allergy symptoms) sertraline [Zoloft] 100 mg tablet 150 mg PO QDAY bumetanide 2 mg tablet 3 mg PO BID 90 Days Qty: 270 3RF dapagliflozin propanediol [Farxiga] 10 mg tablet 10 mg PO QDAY Qty: 90 3RF vitamins A,C,G-fivv-izejwq 1 EACH capsule 1 cap PO BID uf-vhi-gxqhi-S1-sczvxhr-bxwhqv 1 EACH tablet 1 tab PO DAILY tamsulosin 0.4 MG capsule 0.8 mg PO DAILY@1730 finasteride [Proscar] 5 mg tablet 5 mg PO DAILY Qty: 30 0RF Rx Instructions: take one daily for prostate atorvastatin 40 mg tablet 40 mg PO QHS ferrous sulfate [FeroSul] 325 mg (65 mg iron) tablet 325 mg PO BID sennosides-docusate sodium [Stimulant Laxative Plus] 8.6-50 mg Tablet 1 tab PO DAILY Qty: 0 0RF acetaminophen 500 mg Tablet 1,000 mg PO Q6H PRN (Reason: pain 1-10) Qty: 0 0RF potassium chloride 20 mEq Tablet,Er Particles/Crystals 20 meq PO DAILYCM Qty: 0 0RF Eliquis 5 mg Tablet 5 mg PO BID Qty: 0 0RF clonazepam 0.5 mg tablet 0.5 mg PO Q12H spironolactone 25 mg tablet 25 mg PO QDAY Qty: 30 11RF Discontinued prednisone 20 mg tablet 40 mg PO Q12H Rx Instructions: stop 09/16/25 Referrals / Follow Up: Amador Coffey MD [Primary Care Provider, Family Practice] - Within 2 Weeks Jeremi Morel MD [Med Staff - Fermenter Helper, Internal Medicine] Disposition Disposition (needs filled in before D/C Order can be placed): [facility] Facility Charges/Coding Visit Charges Inpatient E&M: 76189 Disch Hosp >30min
--- NOTE | 2025-09-15 14:05 | CASEMGMT ---
JOSAFAT QURESHI received discharge paper for patient to return to [facility] today. JOSAFAT QURESHI updated Discharge Planning assitant to updated [facility], schedule transport, and update family.
--- NOTE | 2025-09-15 14:15 | PCM.PN.ID ---
Physical Exam Narrative Feeling better, less dyspnea, no fever, no n/v/d. Const alert and no apparent distress General Appearance: cooperative Resp Auscultation: diminished lung sounds Cardio regular rate and regular rhythm GI soft to palpation, non-tender and non-distended Extremity General Extremity: Negative for edema Skin no rashes or lesions noted and no wounds ID ID: Route of nutrition/ use of supplements: [] Nutritional Intake: [] IV Site: [] Webster Catheter: [] Assessment & Plan Assessment/Plan (1) H/O aortic valve replacement: (2) Sepsis: (3) MSSA bacteremia: PLAN: sepsis due to mssa bacteremia per pcr with pneumonia as suspected source. Splinter hemorrhage on L index finger and h/o aortic valve replacement, so high concern for endocarditis. TTE done. Repeat bcx rapidly cleared 09/12. Will order picc and 6 weeks empiric course for suspected endocarditis with cefazolin x6 weeks, stop date 10/24/25 with weekly labs and ID followup in 2 weeks. D/w porter sample case. Will follow
--- NOTE | 2025-09-15 14:18 | NURSING ---
This RN called and gave report to JOSAFAT Ambrose at [facility].
--- NOTE | 2025-09-15 14:34 | CASEMGMT ---
Discharge Planning Discharge orders, signed med list, and transport time sent via [facility] to [facility]. Physicians will transport pt by wheelchair at 3:15p. Nursing, SW, pt, and his daughter (Josie) updated. Kristen Rodriguez DC Planning Asst.
[2025-09-15 14:45] VITALS: BP 100/58; PULSE 63; RESP 18; TEMP 36.2; O2SAT 100
--- NOTE | 2025-09-15 14:49 | PHA.DC_ITS ---
Pharmacy DC Med Reconciliation
--- NOTE | 2025-09-15 14:49 | PHA.DC.MR.R ---
Pharmacy [place] Med Reconciliation Pharmacy Service has performed discharge medication reconciliation for this patient. The patient's discharge medication list was reviewed for discrepancies and discrepancies were resolved. Medications at Discharge Home Medications vitamins A,C,V-uisu-romrdz 4,296 mcg-226 mg-90 mg capsule 1 cap PO BID EYE HEALTH 03/07/19 dhrixqdn-sv-gkxlk 300 mcg-K 60 mcg-lycop 600 mcg-lutein 300 mcg tablet 1 tab PO DAILY supplement 10/25/19 tamsulosin 0.4 mg capsule 0.8 mg PO DAILY@1730 urinary retention 11/25/23 finasteride 5 mg tablet (Proscar) 5 mg PO DAILY prostate #30 tabs 11/27/23 metoprolol tartrate 25 mg tablet 12.5 mg (1/2 x 25 mg) PO BID high blood pressure #90 tabs 02/20/24 atorvastatin 40 mg tablet 40 mg PO QHS antihyperlipidemics 10/11/24 ferrous sulfate 325 mg (65 mg iron) tablet (FeroSul) 325 mg PO BID supplement 11/01/24 acetaminophen 500 mg tablet 1,000 mg (2 x 500 mg) PO Q6H PRN pain 1-10 #0 tabs 11/19/24 apixaban 5 mg tablet (Eliquis) 5 mg PO BID #0 tabs 11/19/24 potassium chloride 20 mEq tablet,extended release(part/cryst) 20 meq PO DAILYCM #0 tabs 11/19/24 sennosides 8.6 mg-docusate sodium 50 mg tablet (Stimulant Laxative Plus) 1 tab PO DAILY #0 tabs 11/19/24 cetirizine 5 mg tablet 5 mg PO QDAY PRN allergy symptoms 08/14/25 metformin 500 mg tablet 500 mg PO BID 08/14/25 sertraline 100 mg tablet (Zoloft) 150 mg PO QDAY 08/14/25 spironolactone 25 mg tablet 25 mg PO QDAY #30 tabs 08/14/25 trazodone 50 mg tablet 50 mg PO QHS PRN sleep 08/14/25 bumetanide 2 mg tablet 3 mg (1.5 x 2 mg) PO BID 90 days #270 tabs 09/09/25 dapagliflozin propanediol 10 mg tablet (Farxiga) 10 mg PO QDAY #90 tabs 09/09/25 clonazepam 0.5 mg tablet 0.5 mg PO Q12H 09/10/25 albuterol sulfate 2.5 mg/3 mL (0.083 %) solution for nebulization 2.5 mg (3 mL) inhalation Q2H PRN PRN Dyspnea, wheezing #0 mL 09/15/25 amiodarone 200 mg tablet 200 mg PO DAILY #0 tabs 09/15/25 cefazolin 2 gram intravenous solution 2,000 mg IV Q8H 39 days 09/15/25 food supplemt, lactose-reduced 0.08 gram-1.5 kcal/mL oral liquid (Ensure Plus High Protein) 120 ml PO 4X/DAY #0 mL 09/15/25 melatonin 3 mg tablet 3 mg PO QHS PRN PRN Insomnia #0 tabs 09/15/25
== END 2025-09-15 15:58 | disposition skilled nursing facility (03) | DRG 871 ==
LOC: ED 09-11 02:30 → ICU 09-11 07:16 → PCU 09-11 23:38
PROVIDERS: Internal Medicine; Internal Medicine Critical Care Medicine; Admitting Provider Family Medicine; Emergency Provider Emergency Medicine; PCP Family Medicine; Visit Provider Internal Medicine
DX: A41.01 Sepsis due to Methicillin susceptible Staphylococcus aureus (principal); J18.9 Pneumonia, unspecified organism; I50.43 Acute on chronic combined systolic (congestive) and diastolic (congestive) heart failure; I24.89 Other forms of acute ischemic heart disease; I48.92 Unspecified atrial flutter; J96.11 Chronic respiratory failure with hypoxia; I13.0 Hypertensive heart and chronic kidney disease with heart failure and stage 1 through stage 4 chronic kidney disease, or unspecified chronic kidney disease; I48.19 Other persistent atrial fibrillation; N13.8 Other obstructive and reflux uropathy; E11.22 Type 2 diabetes mellitus with diabetic chronic kidney disease; D50.9 Iron deficiency anemia, unspecified; Z66 Do not resuscitate; N18.32 Chronic kidney disease, stage 3b; F32.A Depression, unspecified; I25.10 Atherosclerotic heart disease of native coronary artery without angina pectoris; I48.0 Paroxysmal atrial fibrillation; E78.5 Hyperlipidemia, unspecified; I44.7 Left bundle-branch block, unspecified; F41.9 Anxiety disorder, unspecified; R33.9 Retention of urine, unspecified; N40.1 Benign prostatic hyperplasia with lower urinary tract symptoms; Z87.891 Personal history of nicotine dependence; Z79.01 Long term (current) use of anticoagulants; Z79.84 Long term (current) use of oral hypoglycemic drugs; Z96.641 Presence of right artificial hip joint; Z95.1 Presence of aortocoronary bypass graft; Z79.899 Other long term (current) drug therapy
CPT/HCPCS: 36415; 36569; 71045; 71046; 71260; 74177; 80048; 80053; 81001; 82962; 83605; 83690; 83735; 83880; 84100; 84484; 85025; 85610; 85730; 87040; 87077; 87086; 87088; 87149; 87186; 87449; 87631; 87633; 87641; 92526; 92610; 93005; 93306; 94640; 94668; 97116; 97163; 97167; 97530; 97535; 97802; 97803; 99285; Q9967; A4216; J1938

== ENCOUNTER 2025-10-04 09:04 | Emergency (ER) | payer MEDICARE, MEDICAID, SELFPAY ==
[2025-10-04] VITALS (16 sets, daily range): BP systolic 94–125; BP diastolic 52–80; PULSE 77–97; RESP 15–28; TEMP 36.6–36.8; O2SAT 96–100; BMI 20.7
--- NOTE | 2025-10-04 09:10 | EKG12_ITS ---
Test Reason : GENERAL Blood Pressure : */* mmHG Vent. Rate : 98 BPM Atrial Rate : 98 BPM P-R Int : 160 ms QRS Dur : 152 ms QT Int : 446 ms P-R-T Axes : 99 -75 84 degrees QTcB Int : 569 ms Normal sinus rhythm Left axis deviation Right bundle branch block Anteroseptal infarct , age undetermined Abnormal ECG Confirmed by ERIN BLANK, GENOVEVA ([id number]), web editor MARICRUZ ANGUIANO ([id number]) on 10/06/2025 1:37:25 PM Referred By: Confirmed By: GENOVEVA KHAN MD
--- NOTE | 2025-10-04 09:11 | EDS_ITS ---
HPI History of Present Illness Chief Complaint: Shortness of Breath Narrative Narrative: 89-year-old male past medical history of congestive heart failure, wears 2 L of oxygen at all times per nasal cannula, [facility] with increasing shortness of breath that has had over the last day. He states his symptoms began yesterday where he felt more short of breath. He was given an aerosol treatment a few hours ago at the correction, but states he does not feel any better. He denies any fevers or chills, no cough, no exacerbating or alleviating factors. He states that he is too weak to even get up or walk with a walker. [facility] Medical History (Updated 10/04/25 @ 11:17 by Tremayne Lou MD) Pneumonia, unspecified organism Sepsis due to methicillin susceptible Staphylococcus aureus Pleural effusion CHF (congestive heart failure) Congestive heart failure Carotid artery bruit Hypoglycemia associated with type 2 diabetes mellitus Frequent falls Elevated LFTs Physical debility BPH (benign prostatic hyperplasia) Vitamin D deficiency Chronic renal failure, stage 2 (mild) Thrombocytopenia Significant closed head trauma within past 3 months Abnormal LFTs Chronic diastolic (congestive) heart failure Dehydration Acute on chronic renal failure Hyperkalemia Hyponatremia Abrasions of multiple sites Fall Bradycardia Near syncope Obesity Secondary pulmonary arterial hypertension Paroxysmal atrial fibrillation Postoperative atrial fibrillation (01/01/19) Essential (primary) hypertension Anxiety and depression Thyroid nodule Stenosis of right subclavian artery Pleural effusion on left Iron deficiency anemia Type 2 diabetes mellitus Left bundle branch block Non-rheumatic aortic stenosis Atherosclerosis of coronary artery of [place] heart without angina pectoris Hyperlipidemia Home Medications Medication Instructions Recorded Last Taken Type vitamins A,C,N-lrjz-zrvpgu 4,296 1 cap PO BID EYE HEAL TH 03/07/19 10/25/19 Hist ory mcg-226 mg-90 mg capsule xkqmpjbi-kq-yjzgh 300 mcg-K 60 1 tab PO DAILY suppleme nt 10/25/19 10/25/19 History mcg-lycop 600 mcg-lutein 300 mcg tablet tamsulosin 0.4 mg capsule 0.8 mg PO DAILY@1730 urinary 11/25/23 Unknown History retention finasteride 5 mg tablet (Proscar) 5 mg PO DAILY prosta te #30 tabs 11/27/23 Unknown Rx metoprolol tartrate 25 mg tablet 12.5 mg (1/2 x 25 mg) PO BID high 02/20/24 Unknown Rx blood pressure #90 tabs atorvastatin 40 mg tablet 40 mg PO QHS antihyperlipide mics 10/11/24 Unknown History ferrous sulfate 325 mg (65 mg 325 mg PO BID supplement 11/01/24 Unknown History iron) tablet (FeroSul) acetaminophen 500 mg tablet 1,000 mg (2 x 500 mg) PO Q 6H PRN 11/19/24 Unknown Rx pain 1-10 #0 tabs apixaban 5 mg tablet (Eliquis) 5 mg PO BID #0 tabs 06/06 Unknown Rx potassium chloride 20 mEq 20 meq PO DAILYCM #0 tabs Unknown Rx tablet,extended release(part/cryst) sennosides 8.6 mg-docusate sodium 1 tab PO DAILY #0 ta bs 11/19/24 Unknown Rx 50 mg tablet (Stimulant Laxative Plus) cetirizine 5 mg tablet 5 mg PO QDAY PRN allergy sym ptoms 08/14/25 Unknown Hi story metformin 500 mg tablet 500 mg PO BID 08/14/25 Unkno wn History sertraline 100 mg tablet (Zoloft) 150 mg PO QDAY 08/14 Unknown History spironolactone 25 mg tablet 25 mg PO QDAY #30 tabs 01/07 Unknown Rx trazodone 50 mg tablet 50 mg PO QHS sleep 08/14/25 Unknown History bumetanide 2 mg tablet 3 mg (1.5 x 2 mg) PO BID 90 days 09/09/25 Unknown Rx #270 tabs dapagliflozin propanediol 10 mg 10 mg PO QDAY #90 tabs 09/09/25 Unknown Rx tablet (Farxiga) clonazepam 0.5 mg tablet 0.5 mg PO Q12H 09/10/25 Unkn own History albuterol sulfate 2.5 mg/3 mL 2.5 mg (3 mL) inhalation Q2H PRN 09/15/25 Unknown Rx (0.083 %) solution for nebulization PRN Dyspnea, wheez ing #0 mL amiodarone 200 mg tablet 200 mg PO DAILY #0 tabs 02/04 Unknown Rx cefazolin 2 gram intravenous 2,000 mg IV Q8H 39 days 1 11/15/24 Unknown Rx solution food supplemt, lactose-reduced 120 ml PO 4X/DAY #0 mL 09/15/25 Unknown Rx 0.08 gram-1.5 kcal/mL oral liquid (Ensure Plus High Protein) Lactobacillus rhamnosus GG 10 1 cap PO BID 10/04/25 Un known History billion cell capsule (Culturelle) aluminum-magnesium hydroxide 200 30 ml PO Q6H PRN dysp epsia 10/04/25 Unknown History mg-200 mg/5 mL oral suspension bisacodyl 10 mg rectal suppository 10 mg FL DAILY PRN constipation 10/04/25 Unknown History magnesium hydroxide 400 mg/5 mL 30 ml PO DAILY PRN con stipation 10/04/25 Unknown History oral suspension ([place] Milk of Magnesia) melatonin 3 mg tablet 3 mg PO QHS Insomnia 5 Unknown History sodium chloride 0.9 % (flush) (BD 10 ml IV BID 5 Unknown History PosiFlush Normal Saline 0.9 % injection syringe) Allergy/AdvReac Type Severity Reaction Status Date / Time No Known Allergies Allergy Verified 10/04/25 09:14 Family History Father CVA (cerebral vascular accident) Mother COPD (chronic obstructive pulmonary disease) Surgical History History of open reduction and internal fixation (ORIF) procedure History of cataract surgery History of hip replacement History of thoracentesis (01/05/19) History of left heart catheterization (10/31/18) H/O aortic valve replacement (01/01/19) 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 No fevers or chills, no cough, no leg swelling. No exacerbating or alleviating factors. EXAM Physical Exam Narrative Exam Narrative: Afebrile. Vital signs noted. Nontoxic-appearing. Cardiovascular examination reveals a regular rate and rhythm. Lungs are clear to auscultation bilaterally with the exception of occasional rhonchi right base. Moving a good amount of air. Mild tachypnea. Abdomen is soft nontender with normoactive bowel sounds. No guarding or rebound. Neurological examination shows him to be awake, alert, oriented. No noted pedal edema on examination. Positive indwelling Webster catheter. Const Vital Signs: 10/04/25 09:05 10/04/25 09:08 10/04/25 09:13 Temperature 98.0 F 98.0 F Temperature Source Oral Oral Pulse Rate 94 97 Respiratory Rate 19 H 24 H Blood Pressure 101/52 L 101/52 L Blood Pressure Mean 68 68 Pulse Ox 98 96 Oxygen Delivery Method Nasal Cannula Nasal Cannula Nasal Cannula Oxygen Flow Rate (L/min) 2 2 2 10/04/25 09:24 10/04/25 10:00 10/04/25 10:08 Temperature 98 F Temperature Source Oral Pulse Rate 84 78 91 Respiratory Rate 16 28 H 21 H Blood Pressure 117/70 117/70
--- NOTE | 2025-10-04 09:11 | ED.VIS.DYS ---
HPI History of Present Illness Chief Complaint: Shortness of Breath Narrative Narrative: 89-year-old male past medical history of congestive heart failure, wears 2 L of oxygen at all times per nasal cannula, presents [facility] with increasing shortness of breath that has had over the last day. He states his symptoms began yesterday where he felt more short of breath. He was given an aerosol treatment a few hours ago at the [facility], but states he does not feel any better. He denies any fevers or chills, no cough, no exacerbating or alleviating factors. He states that he is too weak to even get up or walk with a walker. [facility] Medical History (Updated 10/04/25 @ 11:17 by Tremayne Lou MD) Pneumonia, unspecified organism Sepsis due to methicillin susceptible Staphylococcus aureus Pleural effusion CHF (congestive heart failure) Congestive heart failure Carotid artery bruit Hypoglycemia associated with type 2 diabetes mellitus Frequent falls Elevated LFTs Physical debility BPH (benign prostatic hyperplasia) Vitamin D deficiency Chronic renal failure, stage 2 (mild) Thrombocytopenia Significant closed head trauma within past 3 months Abnormal LFTs Chronic diastolic (congestive) heart failure Dehydration Acute on chronic renal failure Hyperkalemia Hyponatremia Abrasions of multiple sites Fall Bradycardia Near syncope Obesity Secondary pulmonary arterial hypertension Paroxysmal atrial fibrillation Postoperative atrial fibrillation (01/01/19) Essential (primary) hypertension Anxiety and depression Thyroid nodule Stenosis of right subclavian artery Pleural effusion on left Iron deficiency anemia Type 2 diabetes mellitus Left bundle branch block Non-rheumatic aortic stenosis Atherosclerosis of coronary artery of [place] heart without angina pectoris Hyperlipidemia Home Medications Medication Instructions Recorded Last Taken Type vitamins A,C,E-ccfx-muldpy 4,296 1 cap PO BID EYE HEALTH 03/07/19 10/25/19 History mcg-226 mg-90 mg capsule zarkpvln-mw-asczz 300 mcg-K 60 1 tab PO DAILY supplement 10/25/19 10/25/19 History mcg-lycop 600 mcg-lutein 300 mcg tablet tamsulosin 0.4 mg capsule 0.8 mg PO DAILY@1730 urinary 11/25/23 Unknown History retention finasteride 5 mg tablet (Proscar) 5 mg PO DAILY prostate #30 tabs 11/27/23 Unknown Rx metoprolol tartrate 25 mg tablet 12.5 mg (1/2 x 25 mg) PO BID high 02/20/24 Unknown Rx blood pressure #90 tabs atorvastatin 40 mg tablet 40 mg PO QHS antihyperlipidemics 10/11/24 Unknown History ferrous sulfate 325 mg (65 mg 325 mg PO BID supplement 11/01/24 Unknown History iron) tablet (FeroSul) acetaminophen 500 mg tablet 1,000 mg (2 x 500 mg) PO Q6H PRN 11/19/24 Unknown Rx pain 1-10 #0 tabs apixaban 5 mg tablet (Eliquis) 5 mg PO BID #0 tabs 11/19/24 Unknown Rx potassium chloride 20 mEq 20 meq PO DAILYCM #0 tabs 11/19/24 Unknown Rx tablet,extended release(part/cryst) sennosides 8.6 mg-docusate sodium 1 tab PO DAILY #0 tabs 11/19/24 Unknown Rx 50 mg tablet (Stimulant Laxative Plus) cetirizine 5 mg tablet 5 mg PO QDAY PRN allergy symptoms 08/14/25 Unknown History metformin 500 mg tablet 500 mg PO BID 08/14/25 Unknown History sertraline 100 mg tablet (Zoloft) 150 mg PO QDAY 08/14/25 Unknown History spironolactone 25 mg tablet 25 mg PO QDAY #30 tabs 08/14/25 Unknown Rx trazodone 50 mg tablet 50 mg PO QHS sleep 08/14/25 Unknown History bumetanide 2 mg tablet 3 mg (1.5 x 2 mg) PO BID 90 days 09/09/25 Unknown Rx #270 tabs dapagliflozin propanediol 10 mg 10 mg PO QDAY #90 tabs 09/09/25 Unknown Rx tablet (Farxiga) clonazepam 0.5 mg tablet 0.5 mg PO Q12H 09/10/25 Unknown History albuterol sulfate 2.5 mg/3 mL 2.5 mg (3 mL) inhalation Q2H PRN 09/15/25 Unknown Rx (0.083 %) solution for nebulization PRN Dyspnea, wheezing #0 mL amiodarone 200 mg tablet 200 mg PO DAILY #0 tabs 09/15/25 Unknown Rx cefazolin 2 gram intravenous 2,000 mg IV Q8H 39 days 09/15/25 Unknown Rx solution food supplemt, lactose-reduced 120 ml PO 4X/DAY #0 mL 09/15/25 Unknown Rx 0.08 gram-1.5 kcal/mL oral liquid (Ensure Plus High Protein) Lactobacillus rhamnosus GG 10 1 cap PO BID 10/04/25 Unknown History billion cell capsule (Culturelle) aluminum-magnesium hydroxide 200 30 ml PO Q6H PRN dyspepsia 10/04/25 Unknown History mg-200 mg/5 mL oral suspension bisacodyl 10 mg rectal suppository 10 mg ID DAILY PRN constipation 10/04/25 Unknown History magnesium hydroxide 400 mg/5 mL 30 ml PO DAILY PRN constipation 10/04/25 Unknown History oral suspension ([place] Milk of Magnesia) melatonin 3 mg tablet 3 mg PO QHS Insomnia 10/04/25 Unknown History sodium chloride 0.9 % (flush) (BD 10 ml IV BID 10/04/25 Unknown History PosiFlush Normal Saline 0.9 % injection syringe) Allergy/AdvReac Type Severity Reaction Status Date / Time No Known Allergies Allergy Verified 10/04/25 09:14 Family History Father CVA (cerebral vascular accident) Mother COPD (chronic obstructive pulmonary disease) Surgical History History of open reduction and internal fixation (ORIF) procedure History of cataract surgery History of hip replacement History of thoracentesis (01/05/19) History of left heart catheterization (10/31/18) H/O aortic valve replacement (01/01/19) 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 No fevers or chills, no cough, no leg swelling. No exacerbating or alleviating factors. EXAM Physical Exam Narrative Exam Narrative: Afebrile. Vital signs noted. Nontoxic-appearing. Cardiovascular examination reveals a regular rate and rhythm. Lungs are clear to auscultation bilaterally with the exception of occasional rhonchi right base. Moving a good amount of air. Mild tachypnea. Abdomen is soft nontender with normoactive bowel sounds. No guarding or rebound. Neurological examination shows him to be awake, alert, oriented. No noted pedal edema on examination. Positive indwelling Webster catheter. Const Vital Signs: 10/04/25 09:05 10/04/25 09:08 10/04/25 09:13 Temperature 98.0 F 98.0 F Temperature Source Oral Oral Pulse Rate 94 97 Respiratory Rate 19 H 24 H Blood Pressure 101/52 L 101/52 L Blood Pressure Mean 68 68 Pulse Ox 98 96 Oxygen Delivery Method Nasal Cannula Nasal Cannula Nasal Cannula Oxygen Flow Rate (L/min) 2 2 2 10/04/25 09:24 10/04/25 10:00 10/04/25 10:08 Temperature 98 F Temperature Source Oral Pulse Rate 84 78 91 Respiratory Rate 16 28 H 21 H Blood Pressure 117/70 117/70 Blood Pressure Mean 84 85 Pulse Ox 99 98 Oxygen Delivery Method Room Air Oxygen Flow Rate (L/min) 10/04/25 10:30 10/04/25 11:00 10/04/25 11:00 Temperature 98.2 F Temperature Source Oral Pulse Rate 84 91 84 Respiratory Rate 27 H 18 28 H Blood Pressure 98/67 125/80 H 125/80 H Blood Pressure Mean 78 95 91 Pulse Ox 98 98 98 Oxygen Delivery Method Room Air Oxygen Flow Rate (L/min) MDM MDM MDM Narrative Medical decision making narrative: Differential diagnosis includes but not limited to pneumonia versus CHF exacerbation versus pneumothorax. He does not appear fluid overloaded on examination. I reviewed his correction paperwork and his DO NOT RESUSCITATE Comfort Care arrest. Additionally, was reported that he was recently admitted for sepsis. He had bacteremia as well. Currently he is not meeting any SIRS criteria. Comprehensive workup was pursued. CBC, BMP, and BNP will be obtained as well as chest x-ray. EKG was obtained and interpreted by myself independently as normal sinus rhythm at 98 bpm without ectopy or acute ST changes. No STEMI. In review of his laboratory work he has a normal white count of 11.0 with hemoglobin stable at 12.0, platelet count slightly low 142. BMP is significant for a chloride of 94 with a BUN of 38 and creatinine 1.44. He has history of chronic kidney disease. Glucose 142 with a normal anion gap of 12. BNP is elevated at 3804, but on his last visit, it was significantly higher, and in review of prior laboratory work it was 4000. He was administered Lasix here. Chest x-ray interpreted by myself independently shows no evidence of an acute process, no pneumonia although there is atelectasis in the right lower base. I reviewed the radiology report which confirms my independent interpretation. I do not feel he needs antibiotics. He does not have a white count or fever here. Upon repeat examination, he states he feels the same. He is saturating well on his 2 L of nasal cannula oxygen. His daughter is now at the bedside. She states that recently they had a hospice consult on him, and he is mildly anxious about returning back to the [facility]. I do feel that anxiety can play a small role in his dyspnea. I do not feel he requires observation or admission at this time and I have no concern for sepsis as he is not even meeting any SIRS criteria. In review of his medications with the RN, he takes Klonopin and trazodone as well as Zoloft. He will be given Ativan 0.5 mg intravenously prior to discharge. I feel he can be discharged to follow-up with his primary care provider. Additionally I discussed with the patient and his daughter that if he feels that he needs to be at a different facility, that this can be arranged after return to his current longterm facility. Disposition is discharged in stable condition. History & Record Review Discussion w/independent historian: Patient and Family Additional record(s) reviewed:: Prior labs Lab Data Attestation: I reviewed the patient's lab results. Labs: Laboratory Results - last 24 hr 10/04/25 09:17 WBC 11.0 RBC 5.20 Hgb 12.0 L Hct 38.7 L MCV 74.4 L MCH 23.1 L MCHC 31.0 L RDW Std Deviation 57.5 H RDW Coeff of Torie 21.9 H Plt Count 142 L MPV 10.2 Immature Gran % (Auto) 0.500 Neut % (Auto) 74.4 H Lymph % (Auto) 13.5 L Mitchell % (Auto) 7.8 Eos % (Auto) 3.2 Baso % (Auto) 0.6 Absolute Neuts (auto) 8.2 H Absolute Lymphs (auto) 1.49 Nucleated RBC % 0 Anisocytosis 1+ Sodium 137 Potassium 4.5 Chloride 94 L Carbon Dioxide 30.8 Anion Gap 12 BUN 38 H Creatinine 1.44 H Estim Creat Clear Calc 31.85 L Est GFR (MDRD) Non-Af 47 L BUN/Creatinine Ratio 26.6 H Glucose 142 H Calcium 9.3 NT pro BNP II 3804 H Radiography Chest X-Ray - ED: 1 View, Read by ED Physician, Read by Radiologist and - (Atelectasis) Diagnostic Testing: Clinical Impression(s) from Imaging Studies Chest X-Ray 10/04/25 09:40 IMPRESSION: Small right inferior lung opacity, likely atelectasis or an infiltrate. Reading Location: [facility] Discharge Plan Triage Chief Complaint: Shortness of Breath ED Provider: Tremayne Lou Dx/Rx/DC Orders Clinical Impression: Dyspnea, CHF (congestive heart failure), NYHA class III, Shortness of breath, Anxiety Instructions: ED Anxiety Reaction, ED Atelectasis, ED Dyspnea Prescriptions: No Action metoprolol tartrate 25 mg tablet 12.5 mg PO BID Qty: 90 3RF metformin 500 mg tablet 500 mg PO BID trazodone 50 mg tablet 50 mg PO QHS cetirizine 5 mg tablet 5 mg PO QDAY PRN (Reason: allergy symptoms) sertraline [Zoloft] 100 mg tablet 150 mg PO QDAY bumetanide 2 mg tablet 3 mg PO BID 90 Days Qty: 270 3RF dapagliflozin propanediol [Farxiga] 10 mg tablet 10 mg PO QDAY Qty: 90 3RF vitamins A,C,Y-oyjr-zwukuv 1 EACH capsule 1 cap PO BID nv-pvu-jbggm-N0-wbqoxse-ietwrc 1 EACH tablet 1 tab PO DAILY tamsulosin 0.4 MG capsule 0.8 mg PO DAILY@1730 finasteride [Proscar] 5 mg tablet 5 mg PO DAILY Qty: 30 0RF Rx Instructions: take one daily for prostate atorvastatin 40 mg tablet 40 mg PO QHS ferrous sulfate [FeroSul] 325 mg (65 mg iron) tablet 325 mg PO BID sennosides-docusate sodium [Stimulant Laxative Plus] 8.6-50 mg Tablet 1 tab PO DAILY Qty: 0 0RF acetaminophen 500 mg Tablet 1,000 mg PO Q6H PRN (Reason: pain 1-10) Qty: 0 0RF potassium chloride 20 mEq Tablet,Er Particles/Crystals 20 meq PO DAILYCM Qty: 0 0RF Eliquis 5 mg Tablet 5 mg PO BID Qty: 0 0RF clonazepam 0.5 mg tablet 0.5 mg PO Q12H cefazolin 2 gram recon soln 2,000 mg IV Q8H 39 Days Rx Instructions: stop date 10/24/25. Dx: mSSA bacteremia. Weekly bmp, cbc. Fax to [phone]. Routine picc care per protocol. albuterol sulfate 2.5 mg /3 mL (0.083 %) Solution For Nebulization 2.5 mg inhalation Q2H PRN PRN (Reason: Dyspnea, wheezing) Qty: 0 0RF amiodarone 200 mg Tablet 200 mg PO DAILY Qty: 0 0RF Ensure Plus High Protein 0.08 gram-1.5 kcal/mL Liquid 120 ml PO 4X/DAY Qty: 0 0RF aluminum-magnesium hydroxide 200-200 mg/5 mL suspension 30 ml PO Q6H PRN (Reason: dyspepsia) bisacodyl 10 mg suppository 10 mg ID DAILY PRN (Reason: constipation) Culturelle 10 billion cell capsule 1 cap PO BID magnesium hydroxide [[place] Milk of Magnesia] 400 mg/5 mL suspension 30 ml PO DAILY PRN (Reason: constipation) sodium chloride 0.9 % (flush) [BD PosiFlush Normal Saline 0.9] Syringe 10 ml IV BID Rx Instructions: administer before and after IV drug administration as part of [facility] protocol melatonin 3 mg Tablet 3 mg PO QHS spironolactone 25 mg tablet 25 mg PO QDAY Qty: 30 11RF Primary Care Provider: Amador Coffey Referrals: Amador Coffey MD [Primary Care Provider, Family Practice] - As soon as possible Activity Restrictions/Additional Instructions: Continue to use your 2 L of nasal cannula oxygen. You may increase it up to 5 L/min. Discussed with your physician at the longterm facility anxiolytics such as Ativan. Continue your Zoloft, your Klonopin, and your trazodone. Print Language: Citizen Of [place] Disposition Disposition: Home, Self Care
[2025-10-04 09:28] LABS: Hematocrit 38.7 % (40-54); Hemoglobin 12.0 g/dL (13.0-16.5); Immature Granulocytes Count 0.050 X10^3/uL (0.0-0.0); Mean Corp Hgb Conc 31.0 g/dL (32-36); Mean Corpuscular Volume 74.4 fL (80-94); Mean Platelet Vol. 10.2 fl (6.2-12.0); NRBC Flagged by Analyzer 0 % (0-5); POSITIVE MORPHOLOGY YES; Platelet Count 142 K/mm3 (150-450); RBC Distribution Width CV 21.9 % (11.6-14.6); RBC Distribution Width SD 57.5 fl (35.1-43.9); Red Blood Count 5.20 M/mm3 (4.6-6.2); White Blood Count 11.0 K/mm3 (4.4-11.0)
[2025-10-04 09:29] LABS: Differential Indicated SCAN CRITERIA MET
--- NOTE | 2025-10-04 09:40 | RAD_ITS ---
PROCEDURE: CHEST 1 VIEW (PORTABLE) 10/04/2025 REASON FOR EXAM: SHORTNESS OF BREATH TECHNIQUE: Frontal view of the chest. COMPARISON: 09/15/2025 FINDINGS: LINES: Right PICC line tip terminating in the distal SVC. LUNGS AND PLEURA: Small opacity in the right inferior lung. Minimal linear right midlung atelectasis/scarring. No pleural effusion or pneumothorax. HEART AND MEDIASTINUM: The heart size and mediastinal contours are normal. Median sternotomy wires present. AORTA: Mildly calcified aortic arch. BONES: No acute osseous abnormality. RAD/Chest 1 View (Portable) IMPRESSION: Small right inferior lung opacity, likely atelectasis or an infiltrate. Reading Location: [id number]
[2025-10-04 09:59] LABS: Anisocytosis 1+
[2025-10-04 10:01] LABS: Anion Gap 12 (5-15); BUN 38 mg/dL (4-19); BUN/Creat Ratio 26.6 RATIO (10-20); Calcium,Total 9.3 mg/dL (7.6-11.0); Carbon Dioxide 30.8 mmol/L (21.0-32.0); Chloride 94 mmol/L (98-108); Estimated Creatinine Clearance 31.85 ml/min (50-250); Glucose 142 mg/dL (70-99); Potassium 4.5 mmol/L (3.3-5.1)
--- OUTSIDE RECORDS SUMMARY | 2025-10-04 10:08 | XMS RPT_ITS | CCD ---
Author Organization [facility] Care Team Providers Care Assistant Food Service Manager Name Role Phone VERNON ORTEZ E Unavailable Unavailable NEELIMA VERNON E Unavailable Unavailable NEELIMA VERNON Unavailable Unavailable NEELIMA VERNON Unavailable Unavailable Jeremi Morel Unavailable Unavailable NEELIMA, VERNON Unavailable Unavailable NEELIMA VERNON Unavailable Unavailable Jeremi Morel Unavailable Unavailable SERGE, CHOLO S. Attending Unavailable JEREMI MOREL Primary Care Unavailable SERGE, CHOLO S. Attending Unavailable JEREMI MOREL Primary Care Unavailable SERGE, CHOLO S. Admitting Unavailable SERGE, CHOLO S. Consulting Unavailable SOLEDAD ADHIKARI Consulting Unavailable JANETH KOROMA Consulting Unavailable SERGE, CHOLO S. Attending Unavailable JEREMI MOREL Primary Care Unavailable SERGE, CHOLO S. Attending Unavailable JEREMI MROEL Primary Care Unavailable SERGE, CHOLO S. Attending Unavailable JEREMI MOREL Primary Care Unavailable Jeremi Morel MD Primary Care Provider Caterina, Napoleon S Unavailable Jereim Morel MD Primary Care Provider Caterina, Thompson S Unavailable Jeremi Morel MD Primary Care Provider Caterina, Napoleon S Unavailable Caterina, Napoleon S Unavailable Dr. Jeremi Morel Primary Care Provider Dr. Jeremi Morel Referring Provider MARCIAL May Attending Provider Caterina BLANK, Thompson Dacosta Unavailable MARCIAL May Attending Provider MARCIAL Metz Attending Provider Dr. Jeremi Morel Primary Care Provider Dr. Jeremi Morel Referring Provider MARCIAL May Attending Provider MARCIAL Metz Attending Provider Dr. Maxi Quiroga Emergency Provider Dr. Jim Haque Admit Provider Dr. Jim Haque Attending Provider Dr. Jim Haque Other Provider Jeremi Morel MD Primary Care Provider ADRIEL BLANK, DR BLOOD Primary Care Physician [phone] Tonya RECEPTIONIST TELEPHONE OPERATOR.ALO, Mercedez M Unavailable Amador Coffey MD Primary Care Provider JEREMI MOREL Attending Unavailable JEREMI MOREL Primary Care Unavailable JEREMI MOREL Primary Care Unavailable KAMERON KELLEY Referring Unavailable JEREMI MOREL Primary Care Unavailable MAXI FLORES Attending Unavailable JEREMI MOREL Primary Care Unavailable MERCEDEZ CASTANEDA Attending Unavailable JEREMI MOREL Primary Care Unavailable MERCEDEZ CASTANEDA Attending Unavailable SELF Referring Unavailable JEREMI MOREL Primary Care Unavailable MAXI FLORES Attending Unavailable JEREMI MOREL Primary Care Unavailable LEE BLANK, NILDA Admitting Unavailable DR JEREMI MOREL MD Primary Care Unavailkaren HERNDON MD, MANSOOR Castellanos Attending Unavailable EARLE VALDES MD Consulting Unavailable LORNA BENZ MD Consulting Unavailable MAXI NORRIS MD Consulting Unavailable SHELLIE FORD MD Consulting Unavailable SATYA JOHNSON DO Consulting Unavailable CARLOS KING MD Consulting Unavailable Adriel BLANK, Dr. Blood Primary Care Physician Adriel BLANK, Dr. Blood Referring Provider Stacy Boothe Attending Physician Santa Dominguez L Admitting Unavailable WhiteSanta L Consulting Unavailable Santa Dominguez Attending Unavailable Amador Coffey Primary Care Unavailable Thompson Diggs Attending Unavailable Jeremi Morel Primary Care Unavailable Jeremi Morel Referring Unavailable Jeremi Morel Primary Care Unavailable Satya Monet Attending Unavailable Rena Sparrow Referring Unavailable Jeremi Morel Primary Care Unavailable Nadia Edwards Attending Unavailable Jeremi Morel Primary Care Unavailable Corine Garcia Attending Unavailable Richie Noriega Attending Unavailable Charli Peralta Consulting Unavailable Darron Wiggins Consulting Unavailable Thiago Grigsby Consulting Unavailable Aston Barker Consulting Unavailable Lorna Chun Consulting Unavailable Kristina Brady Consulting Unavailable Chet Mclean Consulting Unavailable Estevan Horton Consulting Unavailable Александр Larson Consulting Unavailable Guadalupe Reveles Consulting UnavailYousuf Jones Consulting Unavailable Vik Carlton Consulting Unavailable Julee Leonard Consulting Unavailable Mike Holley Consulting UnavailMarin Perez Consulting Unavailable Mansoor Sahu Consulting Unavailable Lourdes Pablo Consulting Unavailable Ashlee Bangura Consulting Unavailable Maco Silver Consulting Unavailable Lisa Clark Consulting Unavailable Roxana Powell Consulting UnavailJim Pereira Consulting Unavailable Maddie Merritt Consulting Unavailable Lola Dacosta Consulting Unavailable Sami Santoyo Consulting Unavailable Claude Solitario Consulting Unavailable Maddie Heart Consulting Unavailable Hank Evans Consulting Unavailable Jhon Khoury Consulting Unavailable Cristobal Aguilera Consulting Unavailable Zheng Pond Consulting Unav rossable Vamshi La Consulting Unavailable DheKlarissa mcnairRomaine Consulting Unavailable Bruce Gregg Consulting Unavailable Maryjane Dougherty Consulting Unavailable Marcia Bull Consulting Unavailable Angella Billings Consulting Unavailable Jack Almaraz Consulting Unavailable Jose Enrique Kaye Consulting Unavailable Burke, Alonzo Consulting Unavailable Harriett Hazel Consulting UnavailOsvaldo Tejeda Consulting Unavailable Thompson Diggs Consulting Unavailable Lorna Simental Consulting Unavailable Cornell Hillman Consulting Unavailable Hari, Richie Consulting Unavailable Morel, Jeremi Primary Care Unavailable Koram, Rena Lois Attending Unavailable Teran, Achintya Consulting Unavailable Teran, Achintya Referring Unavailable Teran, Achintya Admitting Unavailable Koram, Rena Lois Consulting Unavailable Teran, Achintya Attending Unavailable Morel, Jeremi Primary Care Unavailable Morel, Jeremi Referring Unavailable Bolanos NATIONAL SALES REPRESENTATIVE, Stacy Attending Unavailable Morel, Jeremi Referring Unavailable Morel, Jeremi Primary Care Unavailable Roof NATIONAL SALES REPRESENTATIVE, Rich Sharp Attending Unavailable Morel, Jeremi Primary Care Unavailable Bolanos NATIONAL SALES REPRESENTATIVE, Stacy Attending Unavailable Bolanos NATIONAL SALES REPRESENTATIVE, Stacy Referring Unavailable Morel, Jeremi Primary Care Unavailable Roof NATIONAL SALES REPRESENTATIVE, Rich H Attending Unavailable Roof NATIONAL SALES REPRESENTATIVE, Rich H Referring Unavailable Morel, Jeremi Primary Care Unavailable Kelvin, Scot Chi Attending Unavailable Kelvin, Scot Chi Admitting Unavailable Kelvin, Scot Chi Referring Unavailable Morel, Jeremi Primary Care Unavailable Morel, Jeremi Referring Unavailable Patric Del Valle Attending Unavailable Thompson Diggs Attending Unavailable Morel, Jeremi Primary Care Unavailable Koram, Rena Lois Referring Unavailable Thompson Diggs Attending Unavailable Amador Coffey Primary Care Unavailable Morel, Jeremi Primary Care Unavailable Jodi Aburto Attending Unavailable Lorna Simental Attending Unavailable Amador Coffey Primary Care Unavailable Santa Dominguez Admitting Unavailable Santa Dominguez Consulting Unavailable Lorna Simental Consulting Unavailable Cornell Hillman Consulting Unavailable Hari, Richie Consulting Unavailable Morel, Jeremi Primary Care Unavailable Koram, Rena Lois Attending Unavailable Teran, Achintya Admitting Unavailable Teran, Achintya Consulting Unavailable Teran, Achintya Referring Unavailable Morel, Jeremi Primary Care Unavailable Darion Boyd Attending Unavailabl e Morel, Jeremi Primary Care Unavailable Koram, Rena Lois Attending Unavailable Koram, Rena Lois Referring Unavailable Morel, Jeremi Primary Care Unavailable Kat Heck Attending Unavaila ble Kelvin, Scot Chi Consulting Unavailable Kelvin, Scot Chi Admitting Unavailable Kelvin, Scot Chi Referring Unavailable Lorna Simental Attending Unavailable Thompson Diggs Attending Unavailable Santa Dominguez Referring Unavailable Aston Barker Attending Unavailable Medications Current Medications Medication Drug Class(es) Dates Sig (Normalized) Sig (Original) acetaminophen 500 mg oral tablet (10 sources) Start: 11-19-2024 take 2 tablets by mouth every six hours as needed for pain Acetaminophen 500 mg Tablet Active 1000 mg PO EVERY 6 HOURS as needed for pain 1-10 0 0 November 19, 2024 1:00am Complies with drug therapy Start: 11-01-2024 End: 11-19-2024 take 2 tablets by mouth every six hours as needed for pain Acetaminophen 325 mg tablet Discontinued 650 mg PO EVERY 6 HOURS as needed for pain November 01, 2024 1:00am November 19, 2024 8:58pm Start: 10-31-2024 acetaminophen Dose : 650 mg = 2 tab(s), Oral, q6hWA, PRN Pain, scale 1-10, 0 Refill(s) Start Date: 10/31/24 Status: Ordered Repeat number: 1 Start: 11-05-2019 End: 05-18-2020 take 2 tablets by mouth every four hours as needed for pain Acetaminophen 325 MG tablet Discontinued 650 mg PO EVERY 4 HOURS NEEDED as needed for Pain Score 1-10/10 0 November 05, 2019 1:00am May 18, 2020 10:21am Start: 11-05-2019 End: 05-18-2020 take 650 mg by mouth every four hours as needed Acetaminophen Discontinued 650 MG PO EVERY 4 HOURS NEEDED November 05, 2019 12:00am May 18, 2020 9:21am apixaban 5 mg oral tablet (20 sources) Factor Xa Inhibitor Start: 11-19-2024 take 1 tablet by mouth twice daily Apixaban (Eliquis) 5 mg Tablet Active 5 mg PO TWICE A DAY 0 0 November 19, 2024 1:00am Complies with drug therapy Start: 01-15-2019 End: 11-19-2024 take 1 tablet by mouth twice daily Apixaban 2.5 mg tablet Discontinued 2.5 mg PO TWICE A DAY 60 February 20, 2024 9:25am November 19, 2024 8:58pm anticoagulant Comment on above: Take 1 tablet by miguel twice daily. ascorbic acid 226 mg / beta carotene 84233 unt / cuprous oxide 0.8 mg / dl-alpha tocopheryl acetate 200 unt / zinc oxide 34.8 mg oral capsule (13 sources) Vitamin C Start: 03-07-2019 take 1 capsule by mouth twice daily Vitamins A,C,U-Sawb-Ghekef 1 EACH capsule Active 1 NMA PO TWICE A DAY March 07, 2019 12:00am [facility] Complies with drug therapy Start: 08-18-2016 take 1 tablet by miguel th twice daily at mealtime vit A,C,W-Kaxg-Yichbk (PRESERVISION AREDS) [id number] osxx-ab-jkfe tab Take 1 tablet by mouth twice daily with meals. 0 08/18/2016 Active Comment on above: Take 1 tablet by miguel th twice daily with meals. atorvastatin 40 mg oral tablet (20 sources) HMG-CoA Reductase Inhibitor Start: End: take 1 tablet by mouth at bedtime Atorvastatin 40 mg tablet Active 40 mg PO AT BEDTIME October 11, 2024 1:00am antihyperlipidemics Complies with drug therapy Comment on above: Take 1 tablet by miguel th once daily. Centrum Silver oral tablet (1 source) Start: take 1 tablet by mouth once daily Centrum Silver oral tablet Dose = 1 tab(s), Oral, qDay Start Date: 10/21/24 Status: Ordered Repeat number: 1 cetirizine hydrochloride 5 mg oral tablet (1 source) Histamine-1 Receptor Antagonist Start: take 1 tablet by mouth once daily as needed Cetirizine 5 mg tablet Active 5 mg PO daily as needed August 14, 2025 12:00am Complies with drug therapy docusate sodium 50 mg / sennosides, detention 8.6 mg oral tablet (3 sources) Start: Sennosides-Docusate Sodium (Stimulant Laxative Plus) 8.6-50 mg Tablet Active 1 {tbl} PO DAILY 0 0 November 19, 2024 1:00am Complies with drug therapy Start: 11-01-2024 End: 11-19-2024 Sennosides-Docusate Sodium ( Senna With Docusate Sodium) 8.6-50 mg tablet Discontinued 1 NMA PO TWICE A DAY November 01, 2024 1:00am November 19, 2024 9:01pm constipation Start: 10-31-2024 take 1 tablet by miguel th twice daily Senokot S Dose = 1 tab(s), Oral, BID, 0 Refill(s) Start Date: 10/31/24 Status: Ordered Repeat number: 1 doxepin hydrochloride 75 mg oral capsule (20 sources) Tricyclic Antidepressant Start: 10-21-2024 doxep in 75 mg oral capsule Dose : 75 mg = 1 cap(s), Oral, qHS Start Date: 10/21/24 Status: Ordered Repeat number: 1 Start: 12-05-2023 End: 12-17-2024 take 1 capsule by mouth once daily at bedtime doxepin capsule 50 mg Indications: Bipolar affective disorder, remission status unspecified (HCC) Take 1 capsule by mouth daily at bedtime[facility] 12/05/2023 12/17/2024 Discontinued (Discontinued by another Health Care Provider) Start: 11-25-2023 End: 11-19-2024 Doxepin 50 mg capsule Discon tinued 75 mg PO AT BEDTIME November 25, 2023 1:00am November 19, 2024 8:59pm mood/pain Start: 11-25-2023 take 50 mg by mouth at bedtime Doxepin Active 50 MG PO AT BEDTIME November 25, 2023 12:00am Start: 07-24-2023 take 1 capsule by mouth once d oxepin capsule 25 mg Take 1 capsule by mouth every afternoon. 0 07/24/2023 Active Start: 02-14-2023 End: 11-25-2023 Doxepin 75 mg capsule Discon tinued 50 mg PO DAILY February 14, 2023 11:25am November 25, 2023 7:37am Start: 02-14-2023 End: 11-25-2023 take 50 mg by mouth once daily Doxepin Discontinued 50 MG PO DAILY February 14, 2023 10:25am November 25, 2023 6:37am Start: 11-29-2019 End: 05-05-2023 take 1 capsule by mouth once daily Doxepin 75 mg capsule Discontinued 75 mg PO DAILY January 05, 2021 1:00am February 14, 2023 11:27am Start: 11-05-2019 End: 01-05-2021 take 3 capsules by mouth at bedtime Doxepin 25 MG capsule Discontinued 75 mg PO AT BEDTIME 90 0 November 05, 2019 1:00am January 05, 2021 12:16pm Start: 11-05-2019 End: 01-05-2021 take 75 mg by mouth at bedtime Doxepin Discontinued 75 MG PO AT BEDTIME 90 November 05, 2019 12:00am January 05, 2021 11:16am Comment on above: Take 1 capsule by mo ut daily at bedtime. Take 1 capsule by mo ut every afternoon. Take 1 capsule by mo ut daily at bedtime. [facility] ferrous sulfate 325 mg oral tablet (20 sources) Start: 10-21-2024 take 1 tablet by mouth twice daily Ferrous Sulfate (Ferosul) 325 mg (65 mg iron) tablet Active 325 mg PO TWICE A DAY November 01, 2024 1:00am supplement Complies with drug therapy Start: 01-16-2019 End: 10-28-2019 Ferrous Sulfate 325 MG table t Discontinued 325 mg PO 1200,1700 0 January 16, 2019 1:00am October 28, 2019 8:57pm Comment on above: Take 325 mg by mouth twice daily. finasteride 5 mg oral tablet (19 sources) 5-alpha Reductase Inhibitor Start: 11-27-2023 End: 11-29-2024 take 1 tablet by mouth once daily Finasteride (Proscar) 5 mg tablet Active 5 mg PO DAILY 30 0 November 27, 2023 1:00am prostate take one daily for prostate Complies with drug therapy Comment on above: Take 1 tablet by [facility] once daily. furosemide 40 mg oral tablet (20 sources) Loop Diuretic Start: 11-27-2023 End: 02-20-2024 furosemide 40 mg oral tablet Dose : 40 mg = 1 tab(s), Oral, BID Start Date: 10/20/24 Status: Ordered Repeat number: 1 Start: 11-19-2019 End: 12-19-2023 take 1 tablet by mouth once daily Furosemide (Lasix) 40 mg tablet Discontinued 40 mg PO DAILY 90 3 January 12, 2023 12:26pm December 19, 2023 4:45pm Start: 10-28-2019 End: 11-05-2019 Furosemide 40 MG tablet Disc ontinued 60 mg PO EVERY OTHER DAY October 28, 2019 8:57pm November 05, 2019 10:41am diuretic Start: 10-28-2019 End: 11-05-2019 take 60 mg by mouth every other day Furosemide Discontinued 60 MG PO EVERY OTHER DAY October 28, 2019 7:57pm November 05, 2019 9:41am Start: 04-12-2019 End: 10-28-2019 Furosemide (Lasix) 40 mg tab let Discontinued 60 mg PO TWICE A DAY 180 3 September 19, 2019 2:33pm October 28, 2019 8:57pm Start: 03-27-2019 End: 04-12-2019 take 1 tablet by mouth twice daily Furosemide (Lasix) 40 mg tablet Discontinued 40 mg PO TWICE A DAY 60 6 March 27, 2019 12:00am April 12, 2019 10:39am Start: 01-16-2019 End: 03-27-2019 take 1 tablet by mouth once daily Furosemide 40 MG tablet Discontinued 40 mg PO DAILY March 07, 2019 3:04pm March 27, 2019 3:29pm fluid Comment on above: Take 1 tablet by miguel th once daily[facility] Take 40 mg by mouth two times a day. metFORMIN hydrochloride 500 mg oral tablet (2 sources) Biguanide Start: 08-14-2025 take 1 tablet by mouth twice daily Metformin 500 mg tablet Active 500 mg PO TWICE A DAY August 14, 2025 8:58am Complies with drug therapy Start: 02-28-2025 End: 08-14-2025 take 1 tablet by mouth once daily Metformin 500 mg tablet Discontinued 500 mg PO daily February 28, 2025 12:00am August 14, 2025 9:00am mirtazapine 30 mg oral table t (20 sources) Start: 10-21-2024 Remeron 30 mg oral tablet Dose : 30 mg = 1 tab(s), Oral, qHS Start Date: 10/21/24 Status: Ordered Repeat number: 1 Start: 12-05-2023 take 1 tablet by miguel th once daily at bedtime mirtazapine (REMERON) 15 mg tablet Indications: Bipolar affective disorder, remission status unspecified (HCC) Take 1 tablet by mouth daily at bedtime. [facility]. 12/05/2023 Active Start: 05-05-2023 take 1 tablet by miguel th once daily at bedtime mirtazapine (REMERON) 15 mg tablet Indications: Bipolar affective disorder, remission status unspecified (HCC) Take 1 tablet by mouth daily at bedtime. 0 05/05/2023 Active Start: 02-14-2023 End: 02-28-2025 take 4 tablets by mouth at bedtime Mirtazapine 7.5 mg tablet Discontinued 30 mg PO AT BEDTIME February 14, 2023 12:00am February 28, 2025 10:32am sleep Start: 02-14-2023 take 7.5 mg by mouth once cristopher y Mirtazapine Active 7.5 MG PO DAILY February 13, 2023 11:00pm Comment on above: Take 1 tablet by miguel th daily at bedtime. Take 1 tablet by miguel th daily at bedtime. [facility] mometasone furoate 1 mg/ml topical cream (1 source) Corticosteroid Start: 05-05-20 End: 05-19-20 mometasone (ELOCON) 0.1 % cream Indications: Rash and nonspecific skin eruption Apply to affected area once daily for 14 days. 45 g 0 05/05/2023 05/19/2023 Active Comment on above: Apply to affected ar ea once daily for 14 days. multivitamin with minerals (MULTI-VITAMIN W/MINERALS ORAL) (20 sources) take 1 tablet by mouth once daily multivitamin with minerals (MULTI-VITAMIN W/MINERALS ORAL) Take 1 tablet by mouth once daily. Active take 1 tablet by mouth once cristopher y multivitamin with minerals (MULTI-VITAMIN W/MINERALS ORAL) Take 1 tablet by mouth once daily. 0 Active Comment on above: Take 1 tablet by miguel th once daily. Jt-Bym-Pqsww-K1-Lyc open-Lutein (6 sources) Start: 10-25-2019 take 1 tablet by mouth once daily Va-Inb-Ftzbt-K1-Lyc open-Lutein Active 1 TABLET PO DAILY October 25, 2019 12:00am Start: 10-25-2019 take 1 tablet by miguel th once daily Cd-Puw-Euwaa-A8-Sdlhwtt-Mnuxik Active 1 TABLET PO DAILY October 25, 2019 1:00am Jn-Bis-Apvuv-X6-Uwbowrg-Iaji in 1 EACH tablet (1 source) Start: 10-25-2019 take 1 tablet by mouth once daily Ao-Mlh-Jvmml-G4-Ffarqkw-Agmuuw 1 EACH tablet Active 1 {tbl} PO DAILY October 25, 2019 1:00am supplement Complies with drug therapy microencapsulated potassium chloride 20 meq extended release oral tablet (20 sources) Start: 11-19-2024 take 1 tablet by mouth once daily at mealtime Potassium Chloride 20 mEq Tablet,Er Particles/Crystals Active 20 meq PO DAILY WITH MEALS 0 0 November 19, 2024 1:00am Complies with drug therapy Start: 12-17-2023 End: 06-14-2024 take 2 tablets by mouth once daily potassium chloride (K-TAB) 10 mEq tablet TAKE 2 (TWO) TABLETS BY MOUTH EVERY DAY 180 tablet 1 06/14/2024 Active Start: 11-27-2023 End: 11-19-2024 take 2 tablets by mouth once daily potassium chloride (K-TAB) 10 mEq tablet TAKE 2 (TWO) TABLETS BY MOUTH EVERY DAY 0 11/28/2023 12/15/2023 Discontinued Start: 11-27-2023 take 20 mEq by mouth once cristopher y Potassium Chloride Active 20 MEQ PO DAILY November 27, 2023 12:00am Start: 03-11-2019 End: 03-27-2019 take 2 tablets by mouth once daily Potassium Chloride 20 MEQ tablet Discontinued 40 meq PO DAILY@0800 0 March 11, 2019 12:00am March 27, 2019 3:06pm Start: 03-11-2019 End: 03-27-2019 take 40 mEq by mouth once daily Potassium Chloride Dis continued 40 MEQ PO DAILY@0800 March 10, 2019 11:00pm March 27, 2019 2:06pm Start: 01-16-2019 End: 03-27-2019 take 1 tablet by mouth once daily Potassium Chloride 20 MEQ tablet Discontinued 20 meq PO DAILY March 07, 2019 3:04pm March 27, 2019 3:29pm potassium Comment on above: TAKE 2 (TWO) TABLETS BY MOUTH EVERY DAY sertraline 100 mg oral tablet (4 sources) Serotonin Reuptake Inhibitor Start: 08-14-2025 take 1 tablet by mouth once daily Sertraline (Zoloft) 100 mg tablet Active 100 mg PO daily August 14, 2025 12:00am Complies with drug therapy Start: 01-31-2023 End: 05-05-2023 take 1 tablet by mouth once daily in the evening sertraline (ZOLOFT) 50 mg tablet Indications: Bipolar affective disorder, remission status unspecified (HCC) Take 1 tablet by mouth every evening. 30 tablet 0 01/31/2023 05/05/2023 Discontinued (Discontinued by another Health Care Provider) Comment on above: Take 1 tablet by miguel th every evening. tamsulosin hydrochloride 0.4 mg oral capsule (20 sources) alpha-Adrenergic Elijah Start: 10-21-2024 Flomax 0.4 mg oral capsule Dose : 0.8 mg = 2 cap(s), Oral, qPM Start Date: 10/21/24 Status: Ordered Repeat number: 1 Start: 11-25-2023 take 0.8 mg by mouth once cristopher y Tamsulosin Active 0.8 MG PO DAILY@1729November 25, 2023 12:00am Start: 08-28-2023 End: 11-29-2024 take 2 capsules by mouth once daily Tamsulosin 0.4 MG capsule Active 0.8 mg PO DAILY@1729November 25, 2023 1:00am urinary retention Complies with drug therapy Start: 10-28-2019 End: 11-25-2023 take 1 capsule by mouth once daily Tamsulosin 0.4 MG capsule Discontinued 0.4 mg PO DAILY@1730 30 0 November 05, 2019 11:04am November 25, 2023 7:39am diuretic Comment on above: Take 1 capsule by mo ut once daily. Take 2 capsules by m outh once daily. traZODone hydrochloride 50 mg oral tablet (8 sources) Serotonin Reuptake Inhibitor Start: take 1 tablet by mouth at bedtime as needed Trazodone 50 mg tablet Active 50 mg PO AT BEDTIME as needed August 14, 2025 12:00am Complies with drug therapy Start: 10-30-2018 End: 11-05-2019 take 1 tablet by mouth at bedtime Trazodone 100 MG tablet Discontinued 100 mg PO AT BEDTIME October 30, 2018 1:00am November 05, 2019 10:41am antidepressant Vitamins A,C,O-Fmxe-Lvsckf (6 sources) Start: 03-07-2019 take 1 capsule by mouth twice daily Vitamins A,C,V-Voej-Acyyrk Active 1 CAP PO TWICE A DAY March 06, 2019 11:00pm Start: 03-07-2019 take 1 capsule by mo [facility] twice daily Vitamins A,C,Q-Vnme-Wgkbfl Active 1 CAP PO TWICE A DAY March 07, 2019 12:00am Completed/Discontinued Medications Medication Drug Class(es) Dates Sig (Normalized) Sig (Original) amiodarone hydrochloride 200 mg oral tablet (20 sources) Antiarrhythmic Start: 10-28-2019 End: 11-19-2019 take 1 tablet by mouth once daily Amiodarone 200 MG tablet Discontinued 200 mg PO DAILY October 28, 2019 8:57pm November 19, 2019 12:30pm irregular heart beat Start: 05-03-2019 End: 10-28-2019 take 1 tablet by mouth twice daily Amiodarone 200 mg tablet Discontinued 200 mg PO TWICE A DAY 60 11 May 03, 2019 2:24pm October 28, 2019 4:37pm primary HTN Start: 01-15-2019 End: 05-03-2019 take 1 tablet by mouth once daily Amiodarone 200 MG tablet Discontinued 200 mg PO DAILY January 15, 2019 1:00am May 03, 2019 1:38pm primary HTN amLODIPine 10 mg oral tablet (20 sources) Dihydropyridine Calcium Channel Elijah Start: 08-02-2021 End: 12-17-2024 take 1 tablet by mouth once daily Amlodipine 10 mg tablet Discontinued 10 mg PO DAILY 90 3 April 26, 2023 10:03am February 20, 2024 9:26am Start: 01-05-2021 End: 08-02-2021 take 1 tablet by mouth once daily Amlodipine 5 mg tablet Discontinued 5 mg PO DAILY 90 3 January 05, 2021 1:00am August 02, 2021 1:23pm Comment on above: Take 1 tablet by miguel once daily. azithromycin 500 mg oral tablet (1 source) Macrolide Antimicrobial Start: 4 End: 5 take 1 mg by mouth once daily Azithromycin 500 mg tablet Discontinued 0 PO .COMPLEX 3 0 October 13, 2024 1:00am November 19, 2024 8:59pm For 500 mg dose pack: take 500 mg once daily for 3 days bacitracin zinc 0.5 unt/mg topical ointment (7 sources) Start: 9 End: 0 Bacitracin Zinc 1 APPLIC ointment Discontinued 1 NMA TOPICAL TWICE A DAY 0 November 05, 2019 1:00am May 18, 2020 10:21am Please contact the information source for Protocol details. Start: 11-05-2019 End: 05-18-2020 Bacitracin Zinc Discontinued 1 APPLIC TOPICAL TWICE A DAY November 05, 2019 12:00am May 18, 2020 9:21am busPIRone hydrochloride 10 mg oral tablet (20 sources) Start: 02-28-2025 End: 08-14-2025 take 1 tablet by mouth three times daily Buspirone 10 mg tablet Discontinued 10 mg PO THREE TIMES A DAY February 28, 2025 12:00am August 14, 2025 8:33am Start: 11-25-2023 End: 02-28-2025 busPIRone 15 mg oral tablet Dose : 15 mg = 1 tab(s), Oral, BID Start Date: 10/21/24 Status: Ordered Repeat number: 1 Start: 09-13-2023 take 1 tablet by miguel th every twelve hours busPIRone (BUSPAR) 15 mg tablet Take 1 tablet by mouth every 12 hours. 09/13/2023 Active Start: 03-07-2019 End: 11-25-2023 take 1 tablet by mouth twice daily Buspirone 10 MG tablet Discontinued 10 mg PO TWICE A DAY March 07, 2019 12:00am November 25, 2023 7:37am mood Comment on above: Take 1 tablet by miguel th twice daily. Take 1 tablet by miguel th every 12 hours. cephalexin 750 mg oral capsule (13 sources) Cephalosporin Antibacterial Start: 3 End: 3 take 1 capsule by mouth twice daily Cephalexin 750 mg capsule Discontinued 750 mg PO TWICE A DAY 60 0 August 22, 2023 12:00am August 24, 2023 8:43am Start: 08-08-2023 End: 08-22-2023 take 1 capsule by mouth twice daily Cephalexin 500 mg capsule Discontinued 500 mg PO TWICE A DAY 14 0 August 08, 2023 12:00am August 22, 2023 8:15am cholecalciferol 0.025 mg oral tablet (7 sources) Vitamin D Start: 11-05-2019 End: 05-18-2020 take 1 tablet by mouth once daily at mealtime Cholecalciferol (Vitamin D3) 1,000 UNIT tablet Discontinued 1000 U PO DAILY WITH MEALS 0 November 05, 2019 1:00am May 18, 2020 10:21am ciprofloxacin 500 mg oral tablet (9 sources) Quinolone Antimicrobial Start: 09-18-2023 End: 11-25-2023 take 1 tablet by mouth twice daily Ciprofloxacin Hcl 500 mg tablet Discontinued 500 mg PO TWICE A DAY 14 0 September 18, 2023 1:00am November 25, 2023 7:39am Start: 09-10-2023 End: 09-17-2023 take 1 tablet by mouth every twelve hours Ciprofloxacin Hcl 500 mg tablet Discontinued 500 mg PO Q12H 14 7 0 September 10, 2023 12:00am September 16, 2023 12:00am September 17, 2023 12:04am clonazePAM 0.5 mg oral tablet (20 sources) Benzodiazepine Start: 08-08-2023 End: 08-14-2025 take 1 tablet by mouth twice daily as needed for anxiety Clonazepam 0.5 mg Tablet Discontinued 0.5 mg PO TWICE A DAY as needed for anxiety 6 3 0 November 19, 2024 1:00am August 14, 2025 8:33am Start: 08-08-2023 take 1 tablet by miguel once daily as needed clonazePAM (KLONOPIN) 0.5 mg tablet Take 0.5 mg by mouth once daily as needed. 09/14/2023 Active Comment on above: Take 0.5 mg by mouth once daily as needed. fenofibrate 160 mg oral tablet (7 sources) Peroxisome Proliferator Receptor alpha Agonist Start: 9 End: 9 take 1 tablet by mouth once daily Fenofibrate 160 mg tablet Discontinued 160 mg PO DAILY 30 30 0 March 27, 2019 12:00am March 27, 2019 3:40pm glimepiride 2 mg oral tablet (20 sources) Sulfonylurea Start: 3 End: 3 take 1 tablet by mouth once daily Glimepiride 2 mg tablet Discontinued 2 mg PO DAILY 30 5 February 20, 2023 12:00am August 08, 2023 10:33am Diabetes mellitus Type 2 diabetes mellitus without complications Start: 07-07-2020 End: 05-05-2023 take 1 tablet by mouth once daily Glimepiride 4 mg tablet Discontinued 4 mg PO DAILY 30 6 March 18, 2022 8:35am September 12, 2022 9:19am Start: 05-18-2020 End: 07-07-2020 take 2 tablets by mouth once daily Glimepiride 1 mg tablet Discontinued 2 mg PO DAILY@0800 May 18, 2020 10:20am July 07, 2020 8:54am Start: 05-18-2020 End: 07-07-2020 take 2 mg by mouth once daily Glimepiride Discontinued 2 MG PO DAILY@0800 May 18, 2020 9:20am July 07, 2020 7:54am Start: 11-05-2019 End: 05-18-2020 take 1 tablet by mouth once daily Glimepiride 1 MG tablet Discontinued 1 mg PO DAILY@0800 30 0 November 05, 2019 1:00am May 18, 2020 10:21am Comment on above: Take 1 tablet by miguel th daily with breakfast. hydrocortisone 25 mg/ml topical cream (1 source) Corticosteroid Start: 11-19-2024 End: 08-14-2025 Hydrocortisone 2.5 % Cream Discontinued 1 NMA TOPICAL TWICE DAILY NEEDED as needed for RASH/TOPICAL IRRITATION 0 0 November 19, 2024 1:00am August 14, 2025 8:58am Please contact the information source for Protocol details. 3 ml insulin glargine 100 unt/ml pen injector (20 sources) Insulin Analog Start: 07-07-2020 End: 07-27-2020 Insulin Glargine 100 unit/mL (3 mL) insulin pen Discontinued 50 U SC AT BEDTIME 15 6 July 07, 2020 8:55am July 27, 2020 3:15pm insulin Start: 10-28-2019 End: 07-07-2020 Insulin Glargine 100 UNITS/M L insulin pen Discontinued 15 U SC AT BEDTIME 2 0 November 05, 2019 11:04am July 07, 2020 8:55am insulin Start: 10-28-2019 End: 07-07-2020 Insulin Glargine Discontinue d 15 UNITS SC AT BEDTIME November 05, 2019 10:04am July 07, 2020 7:55am 3 ml insulin lispro 50 unt/ml / insulin lispro protamine, human 50 unt/ml pen injector (20 sources) Insulin Analog Start: 01-02-2024 End: 05-22-2024 insulin 50/50 lispro protamine-lispro units/mL (HUMALOG MIX 50-50 KWIKPEN) 100 unit/mL (50-50) pen Indications: Type 2 diabetes mellitus with stage 3a chronic kidney disease, with long-term current use of insulin (HCC) Inject 30 units in the morning and 28 Units in the evenings with meals. Per Dr. Lo 15 mL 05/22/2024 Active Start: 11-25-2023 End: 11-19-2024 Insulin Lispro Protamin-Lisp ro (Humalog Mix 50-50 Kwikpen) 100 unit/mL (50-50) insulin pen Discontinued 0 SC .COMPLEX 17.4 5 June 17, 2024 5:07pm November 19, 2024 9:00pm Diabetes mellitus Type 2 diabetes mellitus with diabetic polyneuropathy half-way (current) use of insulin 30 units subcutaneously AM; 28 units PM Start: 10-25-2021 End: 01-02-2024 insulin 50/50 lispro protami ne/lispro units/mL (HUMALOG MIX 50- 50 KWIKPEN) 100 unit/mL (50-50) inpn Indications: Type 2 diabetes mellitus with stage 3a chronic kidney disease, with long-term current use of insulin (HCC) Inject 32 units in the morning and 30 units in the evenings with meals 0 10/25/2021 01/02/2024 Discontinued Start: 09-24-2020 End: 11-25-2023 Insulin Lispro Protamin-Lisp ro (Humalog Mix 50-50 Kwikpen) 100 unit/mL (50-50) insulin pen Discontinued 35 U SC TWICE A DAY 21 5 June 13, 2023 11:29am November 25, 2023 7:39am Diabetes mellitus Type 2 diabetes mellitus with diabetic polyneuropathy half-way (current) use of insulin Start: 09-18-2020 End: 09-18-2020 Insulin Lispro Protamin-Lisp ro (Humalog Mix 50-50 Kwikpen) 100 unit/mL (50-50) insulin pen Discontinued 35 U SC TWICE A DAY September 18, 2020 12:22pm September 18, 2020 12:33pm Start: 09-11-2020 End: 09-24-2020 Insulin Lispro Protamin-Lisp ro (Humalog Mix 50-50 Kwikpen) 100 unit/mL (50-50) insulin pen Discontinued 30 U SC TWICE A DAY 18 0 September 18, 2020 12:33pm September 24, 2020 4:34pm Start: 07-27-2020 End: 09-11-2020 Insulin Lispro Protamin-Lisp ro (Humalog Mix 50-50 Kwikpen) 100 unit/mL (50-50) insulin pen Discontinued 25 U SC TWICE A DAY 15 July 27, 2020 12:00am September 11, 2020 11:17am Comment on above: Inject 32 units in t he morning and 30 units in the evenings with meals Inject 30 units in t he morning and 28 Units in the evenings with meals. Per Dr. Lo Iron (7 sources) Start: 01-15-2021 End: 11-19-2024 take 65 mg by mouth twice daily Iron Discontinued 65 mg PO TWICE A DAY January 15, 2021 1:00am November 19, 2024 9:00pm Start: 01-15-2021 take 65 mg by mouth twice cristopher y Iron Active 65 MG PO TWICE A DAY January 15, 2021 12:00am Start: 01-15-2021 take 65 mg by mouth twice cristopher y Iron Active 65 MG PO TWICE A DAY January 15, 2021 1:00am levoFLOXacin 750 mg oral tablet (7 sources) Quinolone Antimicrobial Start: 10-17-2021 End: 02-14-2023 take 1 tablet by mouth once daily Levofloxacin 750 mg tablet Discontinued 750 mg PO DAILY 6 October 17, 2021 1:00am February 14, 2023 11:27am lisinopril 20 mg oral tablet (20 sources) Angiotensin Converting Enzyme Inhibitor Start: 06-03-2021 End: 11-19-2024 take 1 tablet by mouth twice daily Lisinopril 20 mg tablet Discontinued 20 mg PO TWICE A DAY 180 February 20, 2024 9:25am November 19, 2024 9:00pm this is a dose increase Start: 01-05-2021 End: 06-03-2021 take 1 tablet by mouth once daily Lisinopril 20 mg tablet Discontinued 20 mg PO DAILY January 05, 2021 1:00am June 03, 2021 12:05pm Start: 11-19-2019 End: 01-05-2021 take 1 tablet by mouth once daily Lisinopril 10 mg tablet Discontinued 10 mg PO DAILY 90 6 November 19, 2019 12:30pm January 05, 2021 12:14pm Start: 11-05-2019 End: 11-19-2019 take 1 tablet by mouth once daily Lisinopril 5 MG tablet Discontinued 5 mg PO DAILY 30 0 November 05, 2019 1:00am November 19, 2019 12:31pm Start: 03-27-2019 End: 11-05-2019 take 1 tablet by mouth once daily Lisinopril 10 MG tablet Discontinued 10 mg PO DAILY October 28, 2019 8:57pm November 05, 2019 10:39am high blood pressure Comment on above: Take 1 tablet by miguel th twice daily. melatonin 5 mg oral tablet (20 sources) Start: 05-18-2020 End: 11-25-2023 take 5 mg by mouth at bedtime Melatonin 3 MG tablet Discontinued 5 mg PO AT BEDTIME May 18, 2020 10:20am November 25, 2023 7:37am Start: 05-18-2020 End: 10-11-2024 take 1 tablet by mouth at bedtime Melatonin 5 mg tablet Discontinued 5 mg PO AT BEDTIME November 25, 2023 1:00am October 11, 2024 4:33pm Start: 11-05-2019 End: 05-18-2020 Melatonin 3 MG tablet Discon tinued 30 mg PO AT BEDTIME 30 November 05, 2019 1:00am May 18, 2020 10:21am Start: 11-05-2019 End: 05-18-2020 take 30 mg by mouth at bedtime Melatonin Discontinued 30 MG PO AT BEDTIME November 05, 2019 12:00am May 18, 2020 9:21am Start: 11-05-2019 End: 05-18-2020 take 30 mg by mouth at bedtime Melatonin Discontinued 30 MG PO AT BEDTIME November 05, 2019 1:00am May 18, 2020 10:21am Comment on above: Take 1 tablet by miguel th daily at bedtime. menthol 0.0044 mg/mg / zinc oxide 0.206 mg/mg topical ointment (1 source) Start: 11-19-2024 End: 08-14-2025 Menthol-Zinc Oxide (Calmoseptine) 0.44-20.6 % Ointment Discontinued 1 NMA TOPICAL TWICE A DAY 0 0 November 19, 2024 1:00am August 14, 2025 8:58am Please contact the information source for Protocol details. metoprolol tartrate 25 mg oral tablet (20 sources) beta-Adrenergic Elijah Start: 10-21-2024 End: 11-01-2024 take 1 tablet by mouth in the morning metoprolol tartrate 25 mg oral tablet Start: 11/01/24 8:00:00 AM EST, Dose = 12.5 mg, = 1 EA, Oral, 10/21/24 12:06:00 EST Start Date: 11/01/24 Stop Date: 11/01/24 Status: Completed Repeat number: 1 Start: 01-13-2021 take 0.5 tablet by m outh twice daily metoprolol tartrate, short acting, (LOPRESSOR) 25 mg tablet Take 0.5 tablets by mouth twice daily. 01/13/2021 Active Start: 11-19-2019 End: 02-20-2024 Metoprolol Tartrate 25 mg ta blet Active 12.5 mg PO TWICE A DAY 90 February 20, 2024 9:25am high blood pressure Complies with drug therapy Start: 11-19-2019 End: 04-26-2023 take 12.5 mg by mouth twice daily Metoprolol Tartrate Discontinued 12.5 MG PO TWICE A DAY 90 May 26, 2022 7:24am April 26, 2023 9:04am Start: 10-28-2019 End: 11-19-2019 take 1 tablet by mouth twice daily Metoprolol Tartrate 25 MG tablet Discontinued 25 mg PO TWICE A DAY 60 0 November 05, 2019 11:04am November 19, 2019 12:31pm high blood pressure Start: 05-01-2019 End: 05-01-2019 take 1 tablet by mouth twice daily Metoprolol Succinate 50 mg tablet extended release 24 hr Discontinued 50 mg PO TWICE A DAY 30 May 01, 2019 12:00am May 01, 2019 8:52am Start: 05-01-2019 End: 10-28-2019 take 1 tablet by mouth twice daily Metoprolol Tartrate 50 mg tablet Discontinued 50 mg PO TWICE A DAY 60 May 01, 2019 1:28pm October 28, 2019 4:37pm Start: 03-27-2019 End: 05-01-2019 take 2 tablets by mouth twice daily Metoprolol Tartrate 25 mg tablet Discontinued 50 mg PO TWICE A DAY March 27, 2019 3:40pm May 01, 2019 8:50am beta elijah Start: 03-27-2019 End: 05-01-2019 take 50 mg by mouth twice daily Metoprolol Tartrate Di scontinued 50 MG PO TWICE A DAY March 27, 2019 2:40pm May 01, 2019 7:50am Start: 01-15-2019 End: 03-27-2019 take 1 tablet by mouth twice daily Metoprolol Tartrate 25 MG tablet Discontinued 25 mg PO TWICE A DAY January 15, 2019 1:00am March 27, 2019 3:40pm beta elijah Comment on above: Take 0.5 tablets by mouth twice daily. nitrofurantoin, macrocrystals 25 mg / nitrofurantoin, monohydrate 75 mg oral capsule (15 sources) Nitrofuran Antibacterial Start: End: take 1 capsule by mouth every twelve hours at mealtime Nitrofurantoin Monohyd/M-Cryst 100 mg capsule Discontinued 1 NMA PO Q12H 14 7 0 September 01, 2023 12:00am September 07, 2023 12:00am September 08, 2023 12:04am administer with a meal/food; swallow whole; do not open, crush, dissolve , or chew Start: 08-23-2023 take 1 capsule by mo ut twice daily at mealtime nitrofurantoin monohydrate and macrocrystal (MACROBID) 100 mg capsule Indications: Dysuria Take 1 capsule by mouth two times a day with meals. 14 capsule 0 08/23/2023 Active Comment on above: Take 1 capsule by mo uth two times a day with meals. spironolactone 25 mg oral tablet (7 sources) Aldosterone Antagonist Start: 04-16-20 End: 10-28-20 19 take 1 tablet by mouth once daily Spironolactone 25 mg tablet Discontinued 25 mg PO DAILY 60 6 April 16, 2019 12:00am October 28, 2019 5:22pm Problems Active Problems Problem Classification Problem Date Documented Date Episodic/Chronic Acute bronchitis (7 sources) Bronchiolitis; Translations: [Acute bronchiolitis, unspecified] 06-16-2022 Episodic Anxiety disorders (8 sources) Mixed anxiety and depressive disorder; Translations: [Anxiety disorder, unspecified] 10-29-2019 Chronic Bacterial infection; unspecified site (2 sources) Bacteremia; Translations: [Methicillin susceptible Staphylococcus aureus infection as the cause of diseases classified elsewhere] Onset: 09-18-2025 Episodic Cardiac dysrhythmias (20 sources) Paroxysmal atrial fibrillation; Translations: [Paroxysmal atrial fibrillation] Onset: 01-01-2019 01-10-2019 Chronic Comment on above: Last sinus EKG in [facility] is from October 11, 2024. Subsequently, with heart failure and pleural effusions, the patient has been in persistent rate-controlled atrial fibrillation/atypical atrial flutter. I recommend continuing anticoagulation with Eliquis 5 mg twice daily to reduce stroke risk. I propose scheduling an elective cardioversion to restore sinus rhythm, as this may improve cardiac efficiency and reduce the risk of future complications. The patient states he is doing well and declines a cardioversion at this time. Will continue on rate control and anticoagulation.I will see him in office follow-up in 4 to 6 months or sooner if heart failure symptoms should progress. Chronic kidney disease (20 sources) Chronic kidney disease; Translations: [Chronic kidney disease, unspecified] Onset: 03-12-2010 Resolved: 03-26-2020 08-08-2023 Chronic Chronic obstructive pulmonary disease and bronchiectasis (1 source) Bronchiectasis; Translations: [Bronchiectasis, uncomplicated] Chronic Chronic obstructive pulmonary disease and bronchiectasis (1 source) Bronchitis; Translations: [Bronchitis, not specified as acute or chronic] 10-21-2024 Episodic Chronic ulcer of skin (8 sources) Ankle ulcer; Translations: [Non-pressure chronic ulcer of right ankle with unspecified severity] Onset: 01-08-2025 10-25-2019 Chronic Comment on above: Exposed bone. Conduction disorders (8 sources) Left bundle branch block; Translations: [Left bundle-branch block, unspecified] Onset: 09-18-2025 04-24-2019 Chronic Congestive heart failure; nonhypertensive (20 sources) Acute on chronic diastolic heart failure; Translations: [Acute on chronic diastolic (congestive) heart failure] Onset: 05-27-2019 05-27-2019 Chronic Comment on above: The patient has a hi story of recent hospitalizations for bilateral pleural effusions requiring chest tube placement. He is currently asymptomatic, with no evidence of recurrent fluid accumulation. I recommend continuing diuretic therapy with Lasix and monitoring for signs of fluid retention or decompensation. Potentially jewish of sinus rhythm may improve cardiac output but patient declines a cardioversion. Coronary atherosclerosis and other heart disease (8 sources) Coronary atherosclerosis; Translations: [Atherosclerotic heart disease of [place] coronary artery without angina pectoris] Onset: 10-19-2024 06-16-2022 Chronic Coronary atherosclerosis and other heart disease (4 sources) Presence of aortocoronary bypass graft; Translations: [Aortocoronary bypass status] Onset: 01-01-2019 11-25-2023 Episodic Deficiency and other anemia (7 sources) Iron deficiency anemia; Translations: [Iron deficiency anemia, unspecified] 01-04-2021 Episodic Deficiency and other anemia (1 source) Normocytic normochromic anemia; Translations: [Anemia, unspecified] 11-09-2024 Episodic Diabetes mellitus with complications (20 sources) Type 2 diabetes mellitus; Translations: [Type 2 diabetes mellitus with diabetic chronic kidney disease] Onset: 07-30-2015 Chronic Diabetes mellitus without complication (11 sources) Diabetes mellitus; Translations: [Type 2 diabetes mellitus without complications] Onset: 10-19-2024 08-08-2023 Chronic Diabetes mellitus without complication (1 source) Diabetes mellitus without complication; Translations: [Type 2 diabetes mellitus with stage 3a chronic kidney disease, with long-term current use of insulin (HCC)] Onset: 03-26-2020 Diseases of white blood cells (7 sources) Leukocytosis; Translations: [Elevated white blood cell count, unspecified] 10-25-2021 Chronic Disorders of lipid metabolism (20 sources) Hyperlipidemia; Translations: [Hyperlipidemia, unspecified] Onset: 08-28-2025 08-18-2016 Chronic Essential hypertension (20 sources) Essential (primary) hypertension; Translations: [Essential hypertension] Onset: 12-22-2017 12-01-2015 Chronic Comment on above: Blood pressure mildl y elevated on current office visit. Continue on metoprolol tartrate 12.5 mg daily. Fluid and electrolyte disorders (8 sources) Dehydration; Translations: [Dehydration] 11-14-2019 Episodic Heart valve disorders (20 sources) Nonrheumatic aortic (valve) stenosis; Translations: [Mitral valve regurgitation] Onset: 09-15-2011 Resolved: 05-05-2023 09-15-2011 Chronic Comment on above: AVR w/ 25 mm Magna E ase Bioprosthetic Valve 01/01/19 Hyperplasia of prostate (20 sources) Benign prostatic hypertrophy with outflow obstruction; Translations: [Benign prostatic hyperplasia with lower urinary tract symptoms] Onset: 11-29-2019 Chronic Hypertension with complications and secondary hypertension (1 source) Hypertensive heart and chronic kidney disease with heart failure and stage 1 through stage 4 chronic kidney disease, or unspecified chronic kidney disease; Translations: [Hypertensive heart and chronic kidney disease with heart failure and stage 1 through stage 4 chronic kidney disease, or unspecified chronic kidney disease] Onset: 02-05-2025 Chronic Immunizations and screening for infectious disease (8 sources) Needs influenza immunization; Translations: [Encounter for immunization] Episodic Malaise and fatigue (8 sources) Asthenia; Translations: [Other malaise] 06-16-2022 Episodic Mood disorders (20 sources) Bipolar disorder; Translations: [Bipolar disorder, unspecified] 02-11-2019 Chronic Neoplasms of unspecified nature or uncertain behavior (1 source) 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; Translations: [Neoplasm of uncertain behavior of skin] 10-11-2024 Episodic Nutritional deficiencies (20 sources) Vitamin D deficiency; Translations: [Vitamin D deficiency, unspecified] Onset: 12-01-2015 12-01-2015 Chronic Other aftercare (7 sources) Long-term current use of anticoagulant; Translations: [half-way (current) use of anticoagulants] 06-16-2022 Episodic Other aftercare (3 sources) Drug therapy finding; Translations: [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] 11-25-2023 Episodic Other circulatory disease (14 sources) Stenosis of right subclavian artery; Translations: [Stricture of artery] 08-08-2023 Chronic Other circulatory disease (7 sources) Carotid bruit; Translations: [Other specified symptoms and signs involving the circulatory and respiratory systems] 07-06-2021 Episodic Other connective tissue disease (7 sources) Recurrent falls ; Translations: [Repeated falls] 06-16-2022 Episodic Other lower respiratory disease (7 sources) Dyspnea on exertion; Translations: [Other forms of dyspnea] 10-25-2021 Episodic Other lower respiratory disease (5 sources) Dyspnea; Translations: [Shortness of breath] Onset: 10-19-2024 10-11-2024 Episodic Other lower respiratory disease (2 sources) Cough; Translations: [Subacute cough] 10-11-2024 Episodic Other lower respiratory disease (4 sources) Shortness of breath; Translations: [Shortness of breath] Onset: 10-11-2024 Episodic Other nutritional; endocrine; and metabolic disorders (20 sources) Obese class I; Translations: [Obesity, unspecified] Onset: 01-13-2021 01-13-2021 Chronic Other nutritional; endocrine; and metabolic disorders (7 sources) Obesity; Translations: [Obesity, unspecified] 08-08-2023 Chronic Other nutritional; endocrine; and metabolic disorders (1 source) Overweight; Translations: [Overweight] 06-06-2024 Episodic Other screening for suspected conditions (not mental disorders or infectious disease) (20 sources) Other specified abnormal findings of blood chemistry; Translations: [Elevated liver function tests] Onset: 09-18-2025 Resolved: 12-05-2017 01-04-2021 Episodic Other skin disorders (1 source) Eruption; Translations: [Rash and other nonspecific skin eruption] Episodic Pleurisy; pneumothorax; pulmonary collapse (8 sources) Pleural effusion; Translations: [Pleural effusion, not elsewhere classified] Onset: 10-24-2024 Episodic Pneumonia (except that caused by tuberculosis or sexually transmitted disease) (1 source) Pneumonia, unspecified organism; Translations: [Pneumonia, unspecified organism] Onset: 09-22-2025 Episodic Pulmonary heart disease (20 sources) Pulmonary arterial hypertension; 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] Onset: 10-16-2021 04-24-2019 Chronic Residual codes; unclassified (1 source) Urinary catheter in situ; Translations: [Presence of other specified devices] 11-09-2024 Episodic Residual codes; unclassified (1 source) Insomnia; Translations: [Insomnia, unspecified] 11-01-2024 Episodic Septicemia (except in labor) (2 sources) Sepsis, unspecified organism; Translations: [Sepsis, unspecified organism] Onset: 09-22-2025 Episodic Spondylosis; intervertebral disc disorders; other back problems (20 sources) Lumbar spondylosis; Translations: [Spondylosis without myelopathy or radiculopathy, lumbar region] Onset: 08-18-2016 08-18-2016 Chronic Unclassified (1 source) Unknown / UNK(Unknown) Onset: 08-23-2012 Unclassified (1 source) Subacute cough; Translations: [Subacute cough] Onset: 10-11-2024 Unclassified (2 sources) Other persistent atrial fibrillation; Translations: [Other persistent atrial fibrillation] Onset: 09-09-2025 Past or Other Problems Problem Classification Problem Date Documented Date Episodic/Chronic Complication of device; implant or graft (9 sources) Disorders of musculoskeletal implants and repairs; Translations: [Other mechanical complication of other internal orthopedic devices, implants and grafts, initial encounter] Onset: 11-12-2024 10-25-2019 Episodic Comment on above: Due to methicillin s ensitive Staph aureus Complications of surgical procedures or medical care (7 sources) Atrial fibrillation; Translations: [Other postprocedural complications and disorders of the circulatory system, not elsewhere classified] Onset: 01-01-2019 04-24-2019 Episodic Deficiency and other anemia (1 source) Anemia, unspecified; Translations: [Anemia, unspecified] Onset: 11-14-2024 Episodic Diabetes mellitus without complication (12 sources) Disorder of glucose metabolism; Translations: [Other abnormal glucose] Resolved: 08-16-2016 11-08-2021 Episodic Genitourinary symptoms and ill-defined conditions (20 sources) Increased frequency of urination; Translations: [Frequency of micturition] Onset: 10-21-2024 01-20-2023 Episodic Other aftercare (3 sources) 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; Translations: [Long-term (current) use of anticoagulants] Onset: 11-14-2024 11-25-2023 Episodic Other aftercare (1 source) 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 of insulin; Translations: [Type 2 diabetes mellitus with stage 3a chronic kidney disease, with long-term current use of insulin (HCC)] Onset: 03-26-2020 Episodic Other non-epithelial cancer of skin (20 sources) History of malignant neoplasm of skin; Translations: [Personal history of other malignant neoplasm of skin] Onset: 07-22-2021 07-22-2021 Episodic Other skin disorders (12 sources) Skin nodule; Translations: [Localized swelling, mass and lump, unspecified] Onset: 12-05-2017 Resolved: 05-27-2019 05-27-2019 Episodic Residual codes; unclassified (1 source) Presence of other specified devices; Translations: [Presence of other specified devices] Onset: 11-14-2024 Episodic Respiratory failure; insufficiency; arrest (adult) (12 sources) Hypoxemic respiratory failure; Translations: [Respiratory failure, unspecified with hypoxia] Onset: 10-19-2024 10-25-2021 Episodic Screening and history of mental health and substance abuse codes (14 sources) Tobacco use and exposure - finding; Translations: [Personal history of nicotine dependence] Onset: 05-01-2014 Resolved: 08-18-2016 11-08-2021 Episodic Urinary tract infections (20 sources) Urinary tract infectious disease; Translations: [Urinary tract infection, site not specified] Onset: 11-12-2024 11-14-2019 Episodic Results Test Name Value Interpretation Reference Range Facility Culture, Blood (WB)on 2024 CUB No growth in 5 days. Normal [facility] Comment on above: Performed By: #### M 200.1000 ####[facility] [address] [place], [address] BC GPC IDon 09-18-2025 BC GPC ID Normal [facility] Comment on above: Performed By: #### M 200.1000, M100.636 ####[facility] [address] [place], [address] Culture, Blood (WB)on 2024 CUB AEROBIC BOTTLE GRAM STAIN= GRAM POSITIVE COCCI IN CLUSTERS Culture, Blood (WB) Normal [facility] Comment on above: Performed By: #### M 200.1000, M100.636 ####[facility] [address] [place], [address] Basic Metabolic Profile (BMP )on 09-16-2025 BUN Normal 4-19 [facility] Comment on above: Result Comment: Canc elled via OM: Order cancelled - Patient discharged Performed By: #### L 100.0100, L500.2500 ####[facility] [address] [place], [address] BUN/CRE Normal 10-20 [facility] Comment on above: Result Comment: Canc elled via OM: Order cancelled - Patient discharged Performed By: #### L 100.0100, L500.2500 ####[facility] [address] [place], [address] Calcium Normal 7.6-11.0 [facility] Comment on above: Result Comment: Canc elled via OM: Order cancelled - Patient discharged Performed By: #### L 100.0100, L500.2500 ####[facility] [address] [place], [address] CL Normal 98-108 [facility] Comment on above: Result Comment: Canc elled via OM: Order cancelled - Patient discharged Performed By: #### L 100.0100, L500.2500 ####[facility] [address] [place], [address] CO2 Normal 21.0-32.0 [facility] Comment on above: Result Comment: Canc elled via OM: Order cancelled - Patient discharged Performed By: #### L 100.0100, L500.2500 ####[facility] [address] [place], [address] CREAT,SERUM Normal 0.70-1.20 [facility] Comment on above: Result Comment: Canc elled via OM: Order cancelled - Patient discharged Performed By: #### L 100.0100, L500.2500 ####[facility] [address] [place], [address] eGFR Normal >60 [facility] Comment on above: Result Comment: Canc elled via OM: Order cancelled - Patient discharged Performed By: #### L 100.0100, L500.2500 ####[facility] [address] [place], [address] GAP Normal 5-15 [facility] Comment on above: Result Comment: Canc elled via OM: Order cancelled - Patient discharged Performed By: #### L 100.0100, L500.2500 ####[facility] [address] [place], [address] GLU Normal 70-99 [facility] Comment on above: Result Comment: Canc elled via OM: Order cancelled - Patient discharged Performed By: #### L 100.0100, L500.2500 ####[facility] [address] [place], [address] Potassium Normal 3.3-5.1 [facility] Comment on above: Result Comment: Canc elled via OM: Order cancelled - Patient discharged Performed By: #### L 100.0100, L500.2500 ####[facility] [address] [place], [address] Basic Metabolic Profile (BMP) Normal 133-145 [facility] Comment on above: Result Comment: Canc elled via OM: Order cancelled - Patient discharged Performed By: #### L 100.0100, L500.2500 ####[facility] [address] [place], [address] CBC W/Diff, Automatedon 11-0 Absolute Neut Normal 2.0-7.7 [facility] Comment on above: Result Comment: Canc elled via OM: Order cancelled - Patient discharged Performed By: #### L 100.0100, L500.2500 ####[facility] [address] [place], [address] HCT Normal 40-54 [facility] Comment on above: Result Comment: Canc elled via OM: Order cancelled - Patient discharged Performed By: #### L 100.0100, L500.2500 ####[facility] [address] [place], [address] HGB Normal 13.0-16.5 [facility] Comment on above: Result Comment: Canc elled via OM: Order cancelled - Patient discharged Performed By: #### L 100.0100, L500.2500 ####[facility] [address] [place], [address] MCH Normal 27.0-32.0 [facility] Comment on above: Result Comment: Canc elled via OM: Order cancelled - Patient discharged Performed By: #### L 100.0100, L500.2500 ####[facility] [address] [place], [address] MCHC Normal 32-36 [facility] Comment on above: Result Comment: Canc elled via OM: Order cancelled - Patient discharged Performed By: #### L 100.0100, L500.2500 ####[facility] [address] [place], [address] MCV Normal 80-94 [facility] Comment on above: Result Comment: Canc elled via OM: Order cancelled - Patient discharged Performed By: #### L 100.0100, L500.2500 ####[facility] [address] [place], [address] NEUT% Normal 47-70 [facility] Comment on above: Result Comment: Canc elled via OM: Order cancelled - Patient discharged Performed By: #### L 100.0100, L500.2500 ####[facility] [address] [place], [address] PLT Normal 150-450 [facility] Comment on above: Result Comment: Canc elled via OM: Order cancelled - Patient discharged Performed By: #### L 100.0100, L500.2500 ####[facility] [address] [place], [address] RBC Normal 4.6-6.2 [facility] Comment on above: Result Comment: Canc elled via OM: Order cancelled - Patient discharged Performed By: #### L 100.0100, L500.2500 ####[facility] [address] [place], [address] RDW CV Normal 11.6-14.6 [facility] Comment on above: Result Comment: Canc elled via OM: Order cancelled - Patient discharged Performed By: #### L 100.0100, L500.2500 ####[facility] [address] [place], [address] RDW SD Normal 35.1-43.9 [facility] Comment on above: Result Comment: Canc elled via OM: Order cancelled - Patient discharged Performed By: #### L 100.0100, L500.2500 ####[facility] [address] [place], [address] WBC Normal 4.4-11.0 [facility] Comment on above: Result Comment: Canc elled via OM: Order cancelled - Patient discharged Performed By: #### L 100.0100, L500.2500 ####[facility] [address] [place], [address] Basic Metabolic Profile (BMP )on 09-15-2025 BUN/CRE 39.6 RATIO High 10-20 [facility] Comment on above: Performed By: #### L 100.0100, L500.2500 ####[facility] [address] [place], [address] Calcium [Mass/Vol] 8.6 mg/dL Normal 7.6-11.0 [facility] Comment on above: Performed By: #### L 100.0100, L500.2500 ####[facility] [address] [place], [address] Chloride [Moles/Vol] 99 mmol/L Normal 98-108 [facility] Comment on above: Performed By: #### L 100.0100, L500.2500 ####[facility] [address] [place], [address] CO2 [Moles/Vol] 27.8 mmol/L Normal 21.0-32.0 [facility] Comment on above: Performed By: #### L 100.0100, L500.2500 ####[facility] [address] [place], [address] Creatinine [Mass/Vol] 0.88 mg/dL Normal 0.70-1.20 [facility] Comment on above: Performed By: #### L 100.0100, L500.2500 ####[facility] [address] [place], [address] ECRCL 58.02 ml/min Normal 50-250 [facility] Comment on above: Performed By: #### L 100.0100, L500.2500 ####[facility] [address] [place], [address] GAP 8 Normal 5-15 [facility] Comment on above: Performed By: #### L 100.0100, L500.2500 ####[facility] [address] [place], [address] GFR/1.73 sq M.predicted among non-blacks MDRD (S/P/Bld) [Vol rate/Area] 83 mL/min/{1.73_m2} Normal >60 [facility] Comment on above: Result Comment: mL/m in/1.73m2 CKD-EPI Creatinine Equation (2020) Performed By: #### L 100.0100, L500.2500 ####[facility] [address] [place], [address] Glucose [Mass/Vol] 120 mg/dL High 70-99 [facility] Comment on above: Performed By: #### L 100.0100, L500.2500 ####[facility] [address] [place], [address] Potassium [Moles/Vol] 3.4 mmol/L Normal 3.3-5.1 [facility] Comment on above: Performed By: #### L 100.0100, L500.2500 ####[facility] [address] [place], [address] Sodium [Moles/Vol] 135 mmol/L Normal 133-145 [facility] Comment on above: Performed By: #### L 100.0100, L500.2500 ####[facility] [address] [place], [address] Urea nitrogen [Mass/Vol] 35 mg/dL High 4-19 [facility] Comment on above: Performed By: #### L 100.0100, L500.2500 ####[facility] [address] [place], [address] Bedside Glucoseon 09-15-2025 FINGERSTICK GLU 246 mg/dL High 74-106 [facility] Comment on above: Result Comment: JOSE GEMENT OF PATIENT CARE PER NURSING PROTOCOL Performed By: #### L 501.080 ####[facility] [address] [place], [address] FINGERSTICK GLU 124 mg/dL High 74-106 [facility] Comment on above: Result Comment: JOSE GEMENT OF PATIENT CARE PER NURSING PROTOCOL Performed By: #### L 501.080 ####[facility] [address] [place], [address] CBC W/Diff, Automatedon 11-0 Anisocytosis Ql (Bld) 1+ Normal [facility] Comment on above: Performed By: #### L 100.0100, L500.2500 ####[facility] [address] [place], [address] Chest 1 View (Portable)on Chest 1 View (Portable) Normal [facility] Culture, Blood (WB)on 2024 CUB No growth in 5 days. Normal [facility] Comment on above: Performed By: #### M 200.1000 ####[facility] [address] [place], [address] Basic Metabolic Profile (BMP )on 09-14-2025 BUN/CRE 49.1 RATIO High 10-20 [facility] Comment on above: Performed By: #### L 500.2500, L100.0100 ####[facility] [address] [place], [address] Calcium [Mass/Vol] 8.7 mg/dL Normal 7.6-11.0 [facility] Comment on above: Performed By: #### L 500.2500, L100.0100 ####[facility] [address] [place], [address] Chloride [Moles/Vol] 97 mmol/L Low 98-108 [facility] Comment on above: Performed By: #### L 500.2500, L100.0100 ####[facility] [address] [place], [address] CO2 [Moles/Vol] 25.8 mmol/L Normal 21.0-32.0 [facility] Comment on above: Performed By: #### L 500.2500, L100.0100 ####[facility] [address] [place], [address] Creatinine [Mass/Vol] 1.01 mg/dL Normal 0.70-1.20 [facility] Comment on above: Performed By: #### L 500.2500, L100.0100 ####[facility] [address] [place], [address] ECRCL 50.56 ml/min Normal 50-250 [facility] Comment on above: Performed By: #### L 500.2500, L100.0100 ####[facility] [address] [place], [address] GAP 10 Normal 5-15 [facility] Comment on above: Performed By: #### L 500.2500, L100.0100 ####[facility] [address] [place], [address] GFR/1.73 sq M.predicted among non-blacks MDRD (S/P/Bld) [Vol rate/Area] 72 mL/min/{1.73_m2} Normal >60 [facility] Comment on above: Result Comment: mL/m in/1.73m2 CKD-EPI Creatinine Equation (2020) Performed By: #### L 500.2500, L100.0100 ####[facility] [address] [place], [address] Glucose [Mass/Vol] 128 mg/dL High 70-99 [facility] Comment on above: Performed By: #### L 500.2500, L100.0100 ####[facility] [address] [place], [address] Potassium [Moles/Vol] 3.4 mmol/L Normal 3.3-5.1 [facility] Comment on above: Performed By: #### L 500.2500, L100.0100 ####[facility] [address] [place], [address] Sodium [Moles/Vol] 132 mmol/L Low 133-145 [facility] Comment on above: Performed By: #### L 500.2500, L100.0100 ####[facility] [address] [place], [address] Urea nitrogen [Mass/Vol] 50 mg/dL High 4-19 [facility] Comment on above: Performed By: #### L 500.2500, L100.0100 ####[facility] [address] [place], [address] Bedside Glucoseon 09-14-2025 FINGERSTICK GLU 195 mg/dL High 74-106 [facility] Comment on above: Result Comment: JOSE GEMENT OF PATIENT CARE PER NURSING PROTOCOL Performed By: #### L 501.080 ####[facility] [address] [place], [address] FINGERSTICK GLU 175 mg/dL High 74-106 [facility] Comment on above: Result Comment: JOSE GEMENT OF PATIENT CARE PER NURSING PROTOCOL Performed By: #### L 501.080 ####[facility] [address] [place], [address] FINGERSTICK GLU 240 mg/dL High 74-106 [facility] Comment on above: Result Comment: JOSE GEMENT OF PATIENT CARE PER NURSING PROTOCOL Performed By: #### L 501.080 ####[facility] [address] [place], [address] FINGERSTICK GLU 134 mg/dL High 74-106 [facility] Comment on above: Result Comment: JOSE GEMENT OF PATIENT CARE PER NURSING PROTOCOL Performed By: #### L 501.080 ####[facility] [address] [place], [address] CBC W/Diff, Automatedon 11-0 Anisocytosis Ql (Bld) 2+ Normal [facility] Comment on above: Performed By: #### L 500.2500, L100.0100 ####[facility] [address] [place], [address] SMEAR COMMENT SCANNED Normal [facility] Comment on above: Performed By: #### L 500.2500, L100.0100 ####[facility] [address] [place], [address] Basic Metabolic Profile (BMP )on 09-13-2025 BUN/CRE 43.2 RATIO High 10-20 [facility] Comment on above: Performed By: #### L 100.0100, L500.2500 ####[facility] [address] [place], [address] Calcium [Mass/Vol] 8.8 mg/dL Normal 7.6-11.0 [facility] Comment on above: Performed By: #### L 100.0100, L500.2500 ####[facility] [address] [place], [address] Chloride [Moles/Vol] 96 mmol/L Low 98-108 [facility] Comment on above: Performed By: #### L 100.0100, L500.2500 ####[facility] [address] [place], [address] CO2 [Moles/Vol] 26.1 mmol/L Normal 21.0-32.0 [facility] Comment on above: Performed By: #### L 100.0100, L500.2500 ####[facility] [address] [place], [address] Creatinine [Mass/Vol] 1.12 mg/dL Normal 0.70-1.20 [facility] Comment on above: Performed By: #### L 100.0100, L500.2500 ####[facility] [address] [place], [address] ECRCL 45.59 ml/min Low 50-250 [facility] Comment on above: Performed By: #### L 100.0100, L500.2500 ####[facility] [address] [place], [address] GAP 10 Normal 5-15 [facility] Comment on above: Performed By: #### L 100.0100, L500.2500 ####[facility] [address] [place], [address] GFR/1.73 sq M.predicted among non-blacks MDRD (S/P/Bld) [Vol rate/Area] 63 mL/min/{1.73_m2} Normal >60 [facility] Comment on above: Result Comment: mL/m in/1.73m2 CKD-EPI Creatinine Equation (2020) Performed By: #### L 100.0100, L500.2500 ####[facility] [address] [place], [address] Glucose [Mass/Vol] 139 mg/dL High 70-99 [facility] Comment on above: Performed By: #### L 100.0100, L500.2500 ####[facility] [address] [place], [address] Potassium [Moles/Vol] 3.6 mmol/L Normal 3.3-5.1 [facility] Comment on above: Performed By: #### L 100.0100, L500.2500 ####[facility] [address] [place], [address] Sodium [Moles/Vol] 132 mmol/L Low 133-145 [facility] Comment on above: Performed By: #### L 100.0100, L500.2500 ####[facility] [address] [place], [address] Urea nitrogen [Mass/Vol] 48 mg/dL High 4-19 [facility] Comment on above: Performed By: #### L 100.0100, L500.2500 ####[facility] [address] [place], [address] Bedside Glucoseon 09-13-2025 FINGERSTICK GLU 162 mg/dL High 74-106 [facility] Comment on above: Result Comment: JOSE GEMENT OF PATIENT CARE PER NURSING PROTOCOL Performed By: #### L 501.080 ####[facility] [address] [place], [address] FINGERSTICK GLU 240 mg/dL High 74-106 [facility] Comment on above: Result Comment: JOSE GEMENT OF PATIENT CARE PER NURSING PROTOCOL Performed By: #### L 501.080 ####[facility] [address] [place], [address] FINGERSTICK GLU 203 mg/dL High 74-106 [facility] Comment on above: Result Comment: JOSE GEMENT OF PATIENT CARE PER NURSING PROTOCOL Performed By: #### L 501.080 ####[facility] [address] [place], [address] FINGERSTICK GLU 134 mg/dL High 74-106 [facility] Comment on above: Result Comment: JOSE GUAJARDO OF PATIENT CARE PER NURSING PROTOCOL Performed By: #### L 501.080 ####[facility] [address] [place], [address] CBC W/Diff, Automatedon SMEAR COMMENT SCANNED Normal [facility] Comment on above: Result Comment: LYMP HOPENIA PRESENT Performed By: #### L 100.0100, L500.2500 ####[facility] [address] [place], [address] Culture, Blood (WB)on 2024 CUB Normal [facility] Comment on above: Performed By: #### L 100.0100, M100.636, L503.6005, M200.1000, L500.4050, L300.3900, L300.4310 ####[facility] [address] [place], [address] Urine Cultureon 09-13-2025 URC Normal [facility] Comment on above: Performed By: #### M 100.2200, L400.0001 ####[facility] [address] [place], [address] Basic Metabolic Profile (BMP )on 09-12-2025 BUN/CRE 37.4 RATIO High 10-20 [facility] Comment on above: Performed By: #### L 501.5200, L501.2300, L500.2500, L100.0100 ####[facility] [address] [place], [address] Calcium [Mass/Vol] 8.7 mg/dL Normal 7.6-11.0 [facility] Comment on above: Performed By: #### L 501.5200, L501.2300, L500.2500, L100.0100 ####[facility] [address] [place], [address] Chloride [Moles/Vol] 98 mmol/L Normal 98-108 [facility] Comment on above: Performed By: #### L 501.5200, L501.2300, L500.2500, L100.0100 ####[facility] [address] [place], [address] CO2 [Moles/Vol] 25.8 mmol/L Normal 21.0-32.0 [facility] Comment on above: Performed By: #### L 501.5200, L501.2300, L500.2500, L100.0100 ####[facility] [address] [place], [address] Creatinine [Mass/Vol] 1.16 mg/dL Normal 0.70-1.20 [facility] Comment on above: Performed By: #### L 501.5200, L501.2300, L500.2500, L100.0100 ####[facility] [address] [place], [address] ECRCL 44.02 ml/min Low 50-250 [facility] Comment on above: Performed By: #### L 501.5200, L501.2300, L500.2500, L100.0100 ####[facility] [address] [place], [address] GAP 10 Normal 5-15 [facility] Comment on above: Performed By: #### L 501.5200, L501.2300, L500.2500, L100.0100 ####[facility] [address] [place], [address] GFR/1.73 sq M.predicted among non-blacks MDRD (S/P/Bld) [Vol rate/Area] 61 mL/min/{1.73_m2} Normal >60 [facility] Comment on above: Result Comment: mL/m in/1.73m2 CKD-EPI Creatinine Equation (2020) Performed By: #### L 501.5200, L501.2300, L500.2500, L100.0100 ####[facility] [address] [place], [address] Glucose [Mass/Vol] 157 mg/dL High 70-99 [facility] Comment on above: Performed By: #### L 501.5200, L501.2300, L500.2500, L100.0100 ####[facility] [address] [place], [address] Potassium [Moles/Vol] 3.6 mmol/L Normal 3.3-5.1 [facility] Comment on above: Performed By: #### L 501.5200, L501.2300, L500.2500, L100.0100 ####[facility] [address] [place], [address] Sodium [Moles/Vol] 134 mmol/L Normal 133-145 [facility] Comment on above: Performed By: #### L 501.5200, L501.2300, L500.2500, L100.0100 ####[facility] [address] [place], [address] Urea nitrogen [Mass/Vol] 43 mg/dL High 4-19 [facility] Comment on above: Performed By: #### L 501.5200, L501.2300, L500.2500, L100.0100 ####[facility] [address] [place], [address] Bedside Glucoseon 09-12-2025 FINGERSTICK GLU 179 mg/dL High 74-106 [facility] Comment on above: Result Comment: JOSE GEMENT OF PATIENT CARE PER NURSING PROTOCOL Performed By: #### L 501.080 ####[facility] [address] [place], [address] FINGERSTICK GLU 166 mg/dL High 74-106 [facility] Comment on above: Result Comment: JOSE GEMENT OF PATIENT CARE PER NURSING PROTOCOL Performed By: #### L 501.080 ####[facility] [address] [place], [place], [address] FINGERSTICK GLU 220 mg/dL High 74-106 [facility] Comment on above: Result Comment: JOSE GEMENT OF PATIENT CARE PER NURSING PROTOCOL Performed By: #### L 501.080 ####[facility] [address] [place], [address] FINGERSTICK GLU 161 mg/dL High 74-106 [facility] Comment on above: Result Comment: JOSE GEMENT OF PATIENT CARE PER NURSING PROTOCOL Performed By: #### L 501.080 ####[facility] [address] [place], [address] CBC W/Diff, Automatedon 10-3 Absolute Lymph 0.59 X10 3/uL Low 0.83-4.51 [facility] Comment on above: Performed By: #### L 501.5200, L501.2300, L500.2500, L100.0100 ####[facility] [address] [place], [address] Absolute Neut 7.5 X10 3/uL Normal 2.0-7.7 [facility] Comment on above: Performed By: #### L 501.5200, L501.2300, L500.2500, L100.0100 ####[facility] [address] [place], [address] Basophils/100 WBC (Bld) 0.2 % Normal 0-1 [facility] Comment on above: Performed By: #### L 501.5200, L501.2300, L500.2500, L100.0100 ####[facility] [address] [place], [address] Eosinophils/100 WBC (Bld) 2.4 % Normal 0-5 [facility] Comment on above: Performed By: #### L 501.5200, L501.2300, L500.2500, L100.0100 ####[facility] [address] [place], [address] Erythrocyte distribution width (RBC) [Ratio] 20.9 % High 11.6-14.6 [facility] Comment on above: Performed By: #### L 501.5200, L501.2300, L500.2500, L100.0100 ####[facility] [address] [place], [address] Hematocrit (Bld) [Volume fraction] 28.5 % Low 40-54 [facility] Comment on above: Performed By: #### L 501.5200, L501.2300, L500.2500, L100.0100 ####[facility] [address] [place], [address] Hemoglobin (Bld) [Mass/Vol] 9.1 g/dL Low 13.0-16.5 [facility] Comment on above: Performed By: #### L 501.5200, L501.2300, L500.2500, L100.0100 ####[facility] [address] [place], [address] IG% 0.300 Normal 0.0-0.9 [facility] Comment on above: Result Comment: IG% - Immature Granulocytes (promyelocytes, myelocytes andmetamyelocytes) > 1% indicates that a LEFT SHIFT is Present. Performed By: #### L 501.5200, L501.2300, L500.2500, L100.0100 ####[facility] [address] [place], [address] Lymphocytes/100 WBC (Bld) 6.8 % Low 19-41 [facility] Comment on above: Performed By: #### L 501.5200, L501.2300, L500.2500, L100.0100 ####[facility] [address] [place], [address] MCH (RBC) [Entitic mass] 23.2 pg Low 27.0-32.0 [facility] Comment on above: Performed By: #### L 501.5200, L501.2300, L500.2500, L100.0100 ####[facility] [address] [place], [address] MCHC (RBC) [Mass/Vol] 31.9 g/dL Low 32-36 [facility] Comment on above: Performed By: #### L 501.5200, L501.2300, L500.2500, L100.0100 ####[facility] [address] [place], [address] MCV (RBC) [Entitic vol] 72.7 fL Low 80-94 [facility] Comment on above: Performed By: #### L 501.5200, L501.2300, L500.2500, L100.0100 ####[facility] [address] [place], [address] Monocytes/100 WBC (Bld) 4.5 % Normal 0-10 [facility] Comment on above: Performed By: #### L 501.5200, L501.2300, L500.2500, L100.0100 ####[facility] [address] [place], [address] Neutrophils/100 WBC (Bld) 85.8 % High 47-70 [facility] Comment on above: Performed By: #### L 501.5200, L501.2300, L500.2500, L100.0100 ####[facility] [address] [place], [address] Nucleated RBC (Bld) [#/Vol] 0 10*3/uL Normal 0-5 [facility] Comment on above: Performed By: #### L 501.5200, L501.2300, L500.2500, L100.0100 ####[facility] [address] [place], [address] Platelet mean volume (Bld) [Entitic vol] 10.3 fL Normal 6.2-12.0 [facility] Comment on above: Performed By: #### L 501.5200, L501.2300, L500.2500, L100.0100 ####[facility] [address] [place], [address] Platelets (Bld) [#/Vol] 111 10*3/uL Low 150-450 [facility] Comment on above: Performed By: #### L 501.5200, L501.2300, L500.2500, L100.0100 ####[facility] [address] [place], [address] RBC (Bld) [#/Vol] 3.92 10*6/uL Low 4.6-6.2 [facility] Comment on above: Performed By: #### L 501.5200, L501.2300, L500.2500, L100.0100 ####[facility] [address] [place], [address] RDW SD 54.3 fl High 35.1-43.9 [facility] Comment on above: Performed By: #### L 501.5200, L501.2300, L500.2500, L100.0100 ####[facility] [address] [place], [address] WBC (Bld) [#/Vol] 8.7 10*3/uL Normal 4.4-11.0 [facility] Comment on above: Performed By: #### L 501.5200, L501.2300, L500.2500, L100.0100 ####[facility] [address] [place], [address] Consultation - Infectious Dx on 09-12-2025 Consultation - Infectious Dx Normal [facility] Magnesiumon 09-12-2025 Magnesium [Mass/Vol] 2.1 mg/dL Normal 1.5-2.2 [facility] Comment on above: Performed By: #### L 501.5200, L501.2300, L500.2500, L100.0100 ####[facility] [address] [place], [address] Phosphoruson 09-12-2025 Phosphate [Mass/Vol] 3.3 mg/dL Normal 2.7-4.5 [facility] Comment on above: Performed By: #### L 501.5200, L501.2300, L500.2500, L100.0100 ####[facility] [address] [place], [address] BC GPC IDon 09-11-2025 BC GPC ID Normal [facility] Comment on above: Performed By: #### L 100.0100, M100.636, L503.6005, M200.1000, L500.4050, L300.3900, L300.4310 ####[facility] [address] [place], [address] Bedside Glucoseon 09-11-2025 FINGERSTICK GLU 167 mg/dL High 74-106 [facility] Comment on above: Result Comment: JOSE GEMENT OF PATIENT CARE PER NURSING PROTOCOL Performed By: #### L 501.080 ####[facility] [address] [place], [address] FINGERSTICK GLU 141 mg/dL High 74-106 [facility] Comment on above: Result Comment: JOSE GEMENT OF PATIENT CARE PER NURSING PROTOCOL Performed By: #### L 501.080 ####[facility] [address] [place], [address] FINGERSTICK GLU 206 mg/dL High 74-106 [facility] Comment on above: Result Comment: JOSE GEMENT OF PATIENT CARE PER NURSING PROTOCOL Performed By: #### L 501.080 ####[facility] [address] [place], [address] FINGERSTICK GLU 134 mg/dL High 74-106 [facility] Comment on above: Result Comment: JOSE GEMENT OF PATIENT CARE PER NURSING PROTOCOL Performed By: #### L 501.080 ####[facility] [address] [place], [address] FINGERSTICK GLU 114 mg/dL High 74-106 [facility] Comment on above: Result Comment: JOSE GEMENT OF PATIENT CARE PER NURSING PROTOCOL Performed By: #### L 501.080 ####[facility] [address] [place], [address] CBC W/Diff, Automatedon 10-3 0 OVALOCYTE 1+ Normal [facility] Comment on above: Performed By: #### L 100.0100, L500.4050 ####[facility] [address] [place], [address] SCHISTOCYTES RARE Normal [facility] Comment on above: Performed By: #### L 100.0100, L500.4050 ####[facility] [address] [place], [address] TARGET CELLS RARE Normal [facility] Comment on above: Performed By: #### L 100.0100, L500.4050 ####[facility] [address] [place], [address] TEAR DROP RARE Normal [facility] Comment on above: Performed By: #### L 100.0100, L500.4050 ####[facility] [address] [place], [address] ACANTHOCYTE RARE Normal [facility] Comment on above: Performed By: #### L 100.0100, L500.4050 ####[facility] [address] [place], [address] Anisocytosis Ql (Bld) 2+ Normal [facility] Comment on above: Performed By: #### L 100.0100, L500.4050 ####[facility] [address] [place], [address] MICROCYTIC 1+ Normal [facility] Comment on above: Performed By: #### L 100.0100, L500.4050 ####[facility] [address] [place], [address] PLT EST SLT DEC Normal ADEQ [facility] Comment on above: Performed By: #### L 100.0100, L500.4050 ####[facility] [address] [place], [address] SMEAR COMMENT SCANNED Normal [facility] Comment on above: Performed By: #### L 100.0100, L500.4050 ####[facility] [address] [place], [address] ACANTHOCYTE RARE Normal [facility] Comment on above: Performed By: #### L 100.0100, M100.636, L503.6005, M200.1000, L500.4050, L300.3900, L300.4310 ####[facility] [address] [place], [address] CRENATED RBC 1+ Normal [facility] Comment on above: Performed By: #### L 100.0100, M100.636, L503.6005, M200.1000, L500.4050, L300.3900, L300.4310 ####[facility] [address] [place], [address] MICROCYTIC 1+ Normal [facility] Comment on above: Performed By: #### L 100.0100, M100.636, L503.6005, M200.1000, L500.4050, L300.3900, L300.4310 ####[facility] [address] [place], [address] OVALOCYTE 2+ Normal [facility] Comment on above: Performed By: #### L 100.0100, M100.636, L503.6005, M200.1000, L500.4050, L300.3900, L300.4310 ####[facility] [address] [place], [address] SCHISTOCYTES RARE Normal [facility] Comment on above: Performed By: #### L 100.0100, M100.636, L503.6005, M200.1000, L500.4050, L300.3900, L300.4310 ####[facility] [address] [place], [address] TARGET CELLS 1+ Normal [facility] Comment on above: Performed By: #### L 100.0100, M100.636, L503.6005, M200.1000, L500.4050, L300.3900, L300.4310 ####[facility] [address] [place], [address] TEAR DROP 1+ Normal [facility] Comment on above: Performed By: #### L 100.0100, M100.636, L503.6005, M200.1000, L500.4050, L300.3900, L300.4310 ####[facility] [address] [place], [address] Anisocytosis Ql (Bld) 2+ Normal [facility] Comment on above: Performed By: #### L 100.0100, M100.636, L503.6005, M200.1000, L500.4050, L300.3900, L300.4310 ####[facility] [address] [place], [address] PLT EST SLT DEC Normal ADEQ [facility] Comment on above: Performed By: #### L 100.0100, M100.636, L503.6005, M200.1000, L500.4050, L300.3900, L300.4310 ####[facility] [address] [place], [address] SMEAR COMMENT SCANNED Normal [facility] Comment on above: Performed By: #### L 100.0100, M100.636, L503.6005, M200.1000, L500.4050, L300.3900, L300.4310 ####[facility] [address] [place], [address] CT Chest, Abd, Pel w/Contras ton 09-11-2025 CT Chest, Abd, Pel w/Contrast Normal [facility] Comprehensive Metabolic Prof ilon 09-11-2025 Albumin [Mass/Vol] 2.9 g/dL Low 3.4-4.8 [facility] Comment on above: Performed By: #### L 100.0100, L500.4050 ####[facility] [address] [place], [address] Albumin/Globulin [Mass ratio] 1.0 {ratio} Normal 0.9-2.4 [facility] Comment on above: Performed By: #### L 100.0100, L500.4050 ####[facility] [address] [place], [address] ALK PHOS 133 U/L High 40-129 [facility] Comment on above: Performed By: #### L 100.0100, L500.4050 ####[facility] [address] [place], [address] ALT [Catalytic activity/Vol] 80 U/L High <=46 [facility] Comment on above: Performed By: #### L 100.0100, L500.4050 ####[facility] [address] [place], [address] AST [Catalytic activity/Vol] 131 U/L High <=37 [facility] Comment on above: Performed By: #### L 100.0100, L500.4050 ####[facility] [address] [place], [address] Bilirubin [Mass/Vol] 1.94 mg/dL High 0.00-1.30 [facility] Comment on above: Performed By: #### L 100.0100, L500.4050 ####[facility] [address] [place], [address] BUN/CRE 31.2 RATIO High 10-20 [facility] Comment on above: Performed By: #### L 100.0100, L500.4050 ####[facility] [address] [place], [address] Calcium [Mass/Vol] 7.5 mg/dL Low 7.6-11.0 [facility] Comment on above: Performed By: #### L 100.0100, L500.4050 ####[facility] [address] [place], [address] Chloride [Moles/Vol] 102 mmol/L Normal 98-108 [facility] Comment on above: Performed By: #### L 100.0100, L500.4050 ####[facility] [address] [place], [address] CO2 [Moles/Vol] 24.1 mmol/L Normal 21.0-32.0 [facility] Comment on above: Performed By: #### L 100.0100, L500.4050 ####[facility] [address] [place], [address] Creatinine [Mass/Vol] 0.97 mg/dL Normal 0.70-1.20 [facility] Comment on above: Performed By: #### L 100.0100, L500.4050 ####[facility] [address] [place], [address] ECRCL 52.64 ml/min Normal 50-250 [facility] Comment on above: Performed By: #### L 100.0100, L500.4050 ####[facility] [address] [place], [address] GAP 12 Normal 5-15 [facility] Comment on above: Performed By: #### L 100.0100, L500.4050 ####[facility] [address] [place], [address] GFR/1.73 sq M.predicted among non-blacks MDRD (S/P/Bld) [Vol rate/Area] 75 mL/min/{1.73_m2} Normal >60 [facility] Comment on above: Result Comment: mL/m in/1.73m2 CKD-EPI Creatinine Equation (2020) Performed By: #### L 100.0100, L500.4050 ####[facility] [address] [place], [address] Globulin (S) [Mass/Vol] 2.8 g/dL Normal 2.2-4.2 [facility] Comment on above: Performed By: #### L 100.0100, L500.4050 ####[facility] [address] [place], [address] Glucose [Mass/Vol] 126 mg/dL High 70-99 [facility] Comment on above: Performed By: #### L 100.0100, L500.4050 ####[facility] [address] [place], [address] Potassium [Moles/Vol] 3.2 mmol/L Low 3.3-5.1 [facility] Comment on above: Performed By: #### L 100.0100, L500.4050 ####[facility] [address] [place], [address] Sodium [Moles/Vol] 138 mmol/L Normal 133-145 [facility] Comment on above: Performed By: #### L 100.0100, L500.4050 ####[facility] [address] [place], [address] T PROT 5.8 g/dL Low 5.9-8.4 [facility] Comment on above: Performed By: #### L 100.0100, L500.4050 ####[facility] [address] [place], [address] Urea nitrogen [Mass/Vol] 30 mg/dL High 4-19 [facility] Comment on above: Performed By: #### L 100.0100, L500.4050 ####[facility] [address] [place], [address] Albumin [Mass/Vol] 3.5 g/dL Normal 3.4-4.8 [facility] Comment on above: Performed By: #### L 100.0100, M100.636, L503.6005, M200.1000, L500.4050, L300.3900, L300.4310 ####[facility] [address] [place], [address] Albumin/Globulin [Mass ratio] 1.1 {ratio} Normal 0.9-2.4 [facility] Comment on above: Performed By: #### L 100.0100, M100.636, L503.6005, M200.1000, L500.4050, L300.3900, L300.4310 ####[facility] [address] [place], [address] ALK PHOS 166 U/L High 40-129 [facility] Comment on above: Performed By: #### L 100.0100, M100.636, L503.6005, M200.1000, L500.4050, L300.3900, L300.4310 ####[facility] [address] [place], [address] ALT [Catalytic activity/Vol] 94 U/L High <=46 [facility] Comment on above: Performed By: #### L 100.0100, M100.636, L503.6005, M200.1000, L500.4050, L300.3900, L300.4310 ####[facility] [address] [place], [address] AST [Catalytic activity/Vol] 159 U/L High <=37 [facility] Comment on above: Result Comment: Hemo lysis present, Results??could be affected.?? Performed By: #### L 100.0100, M100.636, L503.6005, M200.1000, L500.4050, L300.3900, L300.4310 ####[facility] [address] [place], [address] Bilirubin [Mass/Vol] 1.88 mg/dL High 0.00-1.30 [facility] Comment on above: Performed By: #### L 100.0100, M100.636, L503.6005, M200.1000, L500.4050, L300.3900, L300.4310 ####[facility] [address] [place], [address] BUN/CRE 29.8 RATIO High 10-20 [facility] Comment on above: Performed By: #### L 100.0100, M100.636, L503.6005, M200.1000, L500.4050, L300.3900, L300.4310 ####[facility] [address] [place], [address] Calcium [Mass/Vol] 9.2 mg/dL Normal 7.6-11.0 [facility] Comment on above: Performed By: #### L 100.0100, M100.636, L503.6005, M200.1000, L500.4050, L300.3900, L300.4310 ####[facility] [address] [place], [address] Chloride [Moles/Vol] 94 mmol/L Low 98-108 [facility] Comment on above: Performed By: #### L 100.0100, M100.636, L503.6005, M200.1000, L500.4050, L300.3900, L300.4310 ####[facility] [address] [place], [address] CO2 [Moles/Vol] 29.5 mmol/L Normal 21.0-32.0 [facility] Comment on above: Performed By: #### L 100.0100, M100.636, L503.6005, M200.1000, L500.4050, L300.3900, L300.4310 ####[facility] [address] [place], [address] Creatinine [Mass/Vol] 1.20 mg/dL Normal 0.70-1.20 [facility] Comment on above: Performed By: #### L 100.0100, M100.636, L503.6005, M200.1000, L500.4050, L300.3900, L300.4310 ####[facility] [address] [place], [address] ECRCL 41.17 ml/min Low 50-250 [facility] Comment on above: Performed By: #### L 100.0100, M100.636, L503.6005, M200.1000, L500.4050, L300.3900, L300.4310 ####[facility] [address] [place], [address] GAP 13 Normal 5-15 [facility] Comment on above: Performed By: #### L 100.0100, M100.636, L503.6005, M200.1000, L500.4050, L300.3900, L300.4310 ####[facility] [address] [place], [address] GFR/1.73 sq M.predicted among non-blacks MDRD (S/P/Bld) [Vol rate/Area] 58 mL/min/{1.73_m2} Low >60 [facility] Comment on above: Result Comment: mL/m in/1.73m2 CKD-EPI Creatinine Equation (2020) Performed By: #### L 100.0100, M100.636, L503.6005, M200.1000, L500.4050, L300.3900, L300.4310 ####[facility] [address] [place], [address] Globulin (S) [Mass/Vol] 3.3 g/dL Normal 2.2-4.2 [facility] Comment on above: Performed By: #### L 100.0100, M100.636, L503.6005, M200.1000, L500.4050, L300.3900, L300.4310 ####[facility] [address] [place], [address] Glucose [Mass/Vol] 124 mg/dL High 70-99 [facility] Comment on above: Performed By: #### L 100.0100, M100.636, L503.6005, M200.1000, L500.4050, L300.3900, L300.4310 ####[facility] [address] [place], [address] Potassium [Moles/Vol] 4.1 mmol/L Normal 3.3-5.1 [facility] Comment on above: Result Comment: Hemo lysis present, Results??could be affected.?? Performed By: #### L 100.0100, M100.636, L503.6005, M200.1000, L500.4050, L300.3900, L300.4310 ####[facility] [address] [place], [address] Sodium [Moles/Vol] 137 mmol/L Normal 133-145 [facility] Comment on above: Performed By: #### L 100.0100, M100.636, L503.6005, M200.1000, L500.4050, L300.3900, L300.4310 ####[facility] [address] [place], [address] T PROT 6.7 g/dL Normal 5.9-8.4 [facility] Comment on above: Performed By: #### L 100.0100, M100.636, L503.6005, M200.1000, L500.4050, L300.3900, L300.4310 ####[facility] [address] [place], [address] Urea nitrogen [Mass/Vol] 36 mg/dL High 4-19 [facility] Comment on above: Performed By: #### L 100.0100, M100.636, L503.6005, M200.1000, L500.4050, L300.3900, L300.4310 ####[facility] [address] [place], [address] Consultation - Cardiologyon 09-11-2025 Consultation - Cardiology Normal [facility] Consultation - Intensiviston 09-11-2025 Consultation - Field Observer Normal [facility] Echo Completeon 09-11-2025 Echo Complete Normal [facility] H AND P Exam - Hospitaliston 09-11-2025 H&P Exam - Hospitalist Normal [facility] L501.4021on 09-11-2025 Trop T High Sen 102 ng/L Invalid Interpretation Code <=22 [facility] Comment on above: Result Comment: Billyt ical Result(s) Called at 0016: by: [facility]??Results read back by same. Performed By: #### L 501.4021 ####[facility] [address] [place], [address] Lactic Acidon 09-11-2025 Lactate [Moles/Vol] 1.7 mmol/L Normal 0.0-2.0 [facility] Comment on above: Order Comment: Y Performed By: #### L 100.0100, M100.636, L503.6005, M200.1000, L500.4050, L300.3900, L300.4310 ####[facility] [address] [place], [address] Lipaseon 09-11-2025 Lipase [Catalytic activity/Vol] 20 U/L Normal 13-75 [facility] Comment on above: Result Comment: Eduardo snow note:LIPASE revised reference range effective 23.New Lipase methodology. Expected to produce lower valuesthan the previous assay method.NEW Reference Range: 13 - 75 U/L Performed By: #### L 501.2450 ####[facility] [address] [place], [address] M100.678on 09-11-2025 M100.678 SARS-CoV-2 (COVID 19 ) Negative INFLUENZA A Negative INFLUENZA B Negative RSV PCR Negative Normal [facility] Comment on above: Performed By: #### M 100.678 ####[facility] [address] [place], [address] M8200.1000on 09-11-2025 M8200.1000 Normal Reference Ran ge = Negative MRSA DNA Nose Ql ROXANNE+probe GeneXpert Instrument, PCR method MRSA PCR MRSA NEGATIVE Normal [facility] Comment on above: Performed By: #### M 8200.1000 ####[facility] [address] [place], [address] Magnesiumon 09-11-2025 Magnesium [Mass/Vol] 1.6 mg/dL Normal 1.5-2.2 [facility] Comment on above: Order Comment: Comme nts: may add to ED labs Performed By: #### L 501.5200 ####[facility] [address] [place], [address] Pro- Brain NATRIURETIC PEPTI Major 09-11-2025 Natriuretic peptide B (Bld) [Mass/Vol] 44372 pg/mL High <=1800 [facility] Comment on above: Result Comment: Hear t Failure Unlikely: < 300 pg/mLHeart Failure Likely< 50 Years: > 450 pg/mL50-75 Years: > 900 pg/mL>75 Years: > 1800 pg/mL Performed By: #### L 503.7505 ####[facility] [address] [place], [address] RESPIRATORY PANEL MOLECULARo n 09-11-2025 RP PANEL Normal [facility] Comment on above: Performed By: #### M 100.638 ####[facility] [address] [place], [address] Strep pneumoniae Antig(UR,CS F)on 09-11-2025 STPAG Normal [facility] Comment on above: Performed By: #### M 300.5003 ####[facility] [address] [place], [address] Troponin T HS 2 HRon 025 Trop T High Sen 96 ng/L Invalid Interpretation Code <=22 [facility] Comment on above: Result Comment: Crit ical Result(s) Called at 0146: by: ROBERT JEAN??Results read back by same. Performed By: #### L 499.0042 ####[facility] [address] [place], [address] Troponin T HS 4 HRon 09-11- 025 Trop T High Sen 85 ng/L Invalid Interpretation Code <=22 [facility] Comment on above: Result Comment: Crit ical Result(s) Called at 0552: by: ROBERT PRATT??Results read back by same. Performed By: #### L 499.0043 ####[facility] [address] [place], [address] 12 Lead EKGon 09-10-2025 12 Lead EKG Normal [facility] Chest 1 View (Portable)on Chest 1 View (Portable) Normal [facility] Emergency Department Summary on 09-10-2025 Emergency Department Summary Normal [facility] Partial Thromboplast Timeon 09-10-2025 aPTT Coag (Bld) [Time] 39.2 s High 24.1-36.2 [facility] Comment on above: Performed By: #### L 100.0100, M100.636, L503.6005, M200.1000, L500.4050, L300.3900, L300.4310 ####[facility] [address] [place], [address] Prothrombin Time w/INRon INR Coag (PPP) [Relative time] 2.2 {INR} Normal [facility] Comment on above: Performed By: #### L 100.0100, M100.636, L503.6005, M200.1000, L500.4050, L300.3900, L300.4310 ####[facility] [address] [place], [address] PT Coag (PPP) [Time] 25.2 s High 11.7-14.9 [facility] Comment on above: Performed By: #### L 100.0100, M100.636, L503.6005, M200.1000, L500.4050, L300.3900, L300.4310 ####[facility] [address] [place], [address] Urinalysis, Completeon 09-10 AMORPHOUS 2+ Normal [facility] Comment on above: Order Comment: COLLE CTOR TO SPECIFY Performed By: #### M 100.2200, L400.0001 ####[facility] [address] [place], [address] BACTERIA 2+ /hpf Normal None Seen [facility] Comment on above: Order Comment: COLLE CTOR TO SPECIFY Performed By: #### M 100.2200, L400.0001 ####[facility] [address] [place], [address] CAST,HYALINE 0-5 SEEN Normal 0-5 [facility] Comment on above: Order Comment: [facility] CTOR TO SPECIFY Performed By: #### M 100.2200, L400.0001 ####[facility] [address] [place], [address] EPI,RENAL 5-10 SEEN Normal 0-5 [facility] Comment on above: Order Comment: [facility] CTOR TO SPECIFY Performed By: #### M 100.2200, L400.0001 ####[facility] [address] [place], [address] EPI,TRANSITION 0-5 SEEN Normal 0-5 [facility] Comment on above: Order Comment: [facility] CTOR TO SPECIFY Performed By: #### M 100.2200, L400.0001 ####[facility] [address] [place], [address] RBC 0-5 SEEN Normal 0-5 [facility] Comment on above: Order Comment: COLLE CTOR TO SPECIFY Performed By: #### M 100.2200, L400.0001 ####[facility] [address] [place], [address] WBC 0-5 SEEN Normal 0-5 [facility] Comment on above: Order Comment: COLLE CTOR TO SPECIFY Performed By: #### M 100.2200, L400.0001 ####[facility] [address] [place], [address] EPI,SQUAMOUS 0-5 SEEN Normal 0-5 [facility] Comment on above: Order Comment: COLLE CTOR TO SPECIFY Performed By: #### M 100.2200, L400.0001 ####[facility] [address] [place], [address] Mucus Ql (Urine sed) 0 SEEN Normal [facility] Comment on above: Order Comment: COLLE CTOR TO SPECIFY Performed By: #### M 100.2200, L400.0001 ####[facility] [address] [place], [address] Cardiology Visit Reporton Cardiology Visit Report Normal [facility] Chest PA and Lateralon 09-09 Chest PA and Lateral Normal [facility] Basic Metabolic Profile (BMP )on 08-14-2025 BUN/CRE 21.0 RATIO High 09-01 [facility] Comment on above: Performed By: #### L 503.7505, L500.2500, L100.0100 ####[facility] [address] [place], [address] Calcium [Mass/Vol] 9.3 mg/dL Normal 7.6-11.0 [facility] Comment on above: Performed By: #### L 503.7505, L500.2500, L100.0100 ####[facility] [address] [place], [address] Chloride [Moles/Vol] 96 mmol/L Low 98-108 [facility] Comment on above: Performed By: #### L 503.7505, L500.2500, L100.0100 ####[facility] [address] [place], [address] CO2 [Moles/Vol] 26.1 mmol/L Normal 21.0-32.0 [facility] Comment on above: Performed By: #### L 503.7505, L500.2500, L100.0100 ####[facility] [address] [place], [address] Creatinine [Mass/Vol] 0.84 mg/dL Normal 0.70-1.20 [facility] Comment on above: Performed By: #### L 503.7505, L500.2500, L100.0100 ####[facility] [address] [place], [address] GAP 12 Normal 5-15 [facility] Comment on above: Performed By: #### L 503.7505, L500.2500, L100.0100 ####[facility] [address] [place], [address] GFR/1.73 sq M.predicted among non-blacks MDRD (S/P/Bld) [Vol rate/Area] 84 mL/min/{1.73_m2} Normal >60 [facility] Comment on above: Result Comment: mL/m in/1.73m2 CKD-EPI Creatinine Equation (2020) Performed By: #### L 503.7505, L500.2500, L100.0100 ####[facility] [address] [place], [address] Glucose [Mass/Vol] 128 mg/dL High 70-99 [facility] Comment on above: Performed By: #### L 503.7505, L500.2500, L100.0100 ####[facility] [address] [place], [address] Potassium [Moles/Vol] 3.9 mmol/L Normal 3.3-5.1 [facility] Comment on above: Performed By: #### L 503.7505, L500.2500, L100.0100 ####[facility] [address] [place], [address] Sodium [Moles/Vol] 134 mmol/L Normal 133-145 [facility] Comment on above: Performed By: #### L 503.7505, L500.2500, L100.0100 ####[facility] [address] [place], [address] Urea nitrogen [Mass/Vol] 18 mg/dL Normal 4-19 [facility] Comment on above: Performed By: #### L 503.7505, L500.2500, L100.0100 ####[facility] [address] [place], [address] CBC W/Diff, Automatedon - Anisocytosis Ql (Bld) 2+ Normal [facility] Comment on above: Performed By: #### L 503.7505, L500.2500, L100.0100 ####[facility] [address] [place], [address] MICROCYTIC 1+ Normal [facility] Comment on above: Performed By: #### L 503.7505, L500.2500, L100.0100 ####[facility] [address] [place], [address] SMEAR COMMENT SCANNED Normal [facility] Comment on above: Performed By: #### L 503.7505, L500.2500, L100.0100 ####[facility] [address] [place], [address] Cardiology Visit Reporton Cardiology Visit Report Normal [facility] Chest PA and Lateralon 08-14 Chest PA and Lateral Normal [facility] Pro- Brain NATRIURETIC PEPTI Major 08-14-2025 Natriuretic peptide B (Bld) [Mass/Vol] 4611 pg/mL High <=1800 [facility] Comment on above: Result Comment: Hear t Failure Unlikely: < 300 pg/mLHeart Failure Likely< 50 Years: > 450 pg/mL50-75 Years: > 900 pg/mL>75 Years: > 1800 pg/mL Performed By: #### L 503.7505, L500.2500, L100.0100 ####[facility] [address] [place], [address] 12 Lead EKG performed by BMS on 02-28-2025 12 Lead EKG performed by BMS Normal [facility] Cardiology Visit Reporton Cardiology Visit Report Normal [facility] Wound Cultureon 12-27-2024 Normal [facility] Comment on above: Performed By: #### M 100.2000, M100.3000 ####[facility] [address] [place], [address] Gram Stainon 12-26-2024 GS Gram Stain 3+ Gram positive cocci 1+ Red Blood Cells 1+ White Blood Cells Normal [facility] Comment on above: Performed By: #### M 100.2000, M100.3000 ####[facility] [address] [place], [address] CNOVon 12-17-2024 CNOV Office Visit (INTMWS ) OSVALDO LUCIO ([id number]) 1935 M Date Time Provider Department 12/17/24 9:40 AM MERCEDEZ CASTANEDA INTMWS During your visit today, we recorded the following information about you: Pulse Respiration Blood pressure Weight 112/minute 12/minute 130/62 82.8 kg Mercedez Castaneda, RECEPTIONIST TELEPHONE OPERATOR.SUPERVISOR HOT DIP TINNING 12/17/2024 10:03 AM Signed CC: Patient presents with: Hospital F/U: [facility] pleural effusion HPI Osvaldo Lucio is a 89 year old male who presents today with nurse aide for above. Patient was admitted to [facility] for pleural effusion 10/19 to 10/31. He had a chest tube placed with high output daily but was eventually removed. He developed hematuria and urinary retention during admission requiring a Webster cathter short term. He was than transferred to [facility] for strengthening prior to discharge to [facility] for nursing home care on 11/22. Patient denies any concerns today. He had follow-up with urology on 12/09. Taking medications as prescribed, denies side effects. He will have the in house physician take over care. He will still see specialists including endocrinology, podiatry, psychiatry and cardiology. Review of Systems Constitutional: Negative for chills, diaphoresis, fatigue, fever and unexpected weight change. Respiratory: Negative for cough, shortness of breath and wheezing. Cardiovascular: Negative for chest pain, palpitations and leg swelling. Gastrointestinal: Negative for abdominal pain. Genitourinary: Negative for decreased urine volume, difficulty urinating, flank pain, frequency and hematuria. Neurological: Negative for dizziness, syncope, weakness and light-headedness. 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 He has since 2006 had A1C [...] [facility] REPLACEMENT, AORTIC VALVE, WITH CAR 01/03/2019 ALLERGIES Patient has no known allergies. MEDICATIONS finasteride (PROSCAR) 5 mg tablet Take 5 mg by mouth once daily. potassium chloride (K-TAB) 10 mEq tablet TAKE 2 (TWO) TABLETS BY MOUTH EVERY DAY tamsulosin (FLOMAX) 0.4 mg Take 2 capsules by mouth once daily. mirtazapine (REMERON) 15 mg tablet Take 1 tablet by mouth daily at bedtime. [facility]. furosemide (LASIX) 40 mg tablet Take 40 mg by mouth two times a day. clonazePAM (KLONOPIN) 0.5 mg tablet Take 0.5 mg by mouth once daily as needed. busPIRone (BUSPAR) 15 mg tablet Take 1 tablet by mouth every 12 hours. metoprolol tartrate, short acting, (LOPRESSOR) 25 mg tablet Take 0.5 tablets by mouth twice daily. ferrous sulfate 325 mg (65 mg iron) tablet Take 325 mg by mouth twice daily. multivitamin with minerals (MULTI-VITAMIN W/MINERALS ORAL) Take 1 tablet by mouth once daily. apixaban (ELIQUIS) 2.5 mg tab tab(s) Take 1 tablet by mouth twice daily. atorvastatin (LIPITOR) 40 mg tablet Take 1 tablet by mouth once daily. insulin 50/50 lispro protamine-lispro units/mL (HUMALOG MIX 50-50 KWIKPEN) 100 unit/mL (50-50) pen Inject 30 units in the morning and 28 Units in the evenings with meals. Per Dr. Lo (Patient not taking: Reported on 12/09/2024) blood sugar diagnostic (BLOOD GLUCOSE TEST) test strip Test blood sugar(s) 2 times daily. Dx: Type 2 DM - Uncontrolled E11.65 Insulin: No Lancets lancets Test blood sugar(s) 2 times daily. Dx: Type (more content not included)... Normal [facility] Basic Metabolic Profile (BMP )on 12-13-2024 BUN Normal 7-18 [facility] Comment on above: Result Comment: Canc elled via OM: Order cancelled - Patient discharged Performed By: #### L 100.0100, L500.2500 ####[facility] [address] [place], [address] BUN/CRE Normal 10-20 [facility] Comment on above: Result Comment: Canc elled via OM: Order cancelled - Patient discharged Performed By: #### L 100.0100, L500.2500 ####[facility] [address] [place], [address] CA,Total Normal 8.5-10.1 [facility] Comment on above: Result Comment: Canc elled via OM: Order cancelled - Patient discharged Performed By: #### L 100.0100, L500.2500 ####[facility] [address] [place], [address] CL Normal 98-107 [facility] Comment on above: Result Comment: Canc elled via OM: Order cancelled - Patient discharged Performed By: #### L 100.0100, L500.2500 ####[facility] [address] [place], [address] CO2 Normal 21.0-32.0 [facility] Comment on above: Result Comment: Canc elled via OM: Order cancelled - Patient discharged Performed By: #### L 100.0100, L500.2500 ####[facility] [address] [place], [address] CREAT,SERUM Normal 0.70-1.30 [facility] Comment on above: Result Comment: Canc elled via OM: Order cancelled - Patient discharged Performed By: #### L 100.0100, L500.2500 ####[facility] [address] [place], [address] EST GFR Normal >60 [facility] Comment on above: Result Comment: Canc elled via OM: Order cancelled - Patient discharged Performed By: #### L 100.0100, L500.2500 ####[facility] [address] [place], [address] EST GFR - AA Normal >60 [facility] Comment on above: Result Comment: Canc elled via OM: Order cancelled - Patient discharged Performed By: #### L 100.0100, L500.2500 ####[facility] [address] [place], [address] GAP Normal 5-15 [facility] Comment on above: Result Comment: Canc elled via OM: Order cancelled - Patient discharged Performed By: #### L 100.0100, L500.2500 ####[facility] [address] [place], [address] GLU Normal 74-106 [facility] Comment on above: Result Comment: Canc elled via OM: Order cancelled - Patient discharged Performed By: #### L 100.0100, L500.2500 ####[facility] [address] [place], [address] Potassium Normal 3.5-5.1 [facility] Comment on above: Result Comment: Canc elled via OM: Order cancelled - Patient discharged Performed By: #### L 100.0100, L500.2500 ####[facility] [address] [place], [address] Basic Metabolic Profile (BMP) Normal 136-145 [facility] Comment on above: Result Comment: Canc elled via OM: Order cancelled - Patient discharged Performed By: #### L 100.0100, L500.2500 ####[facility] [address] [place], [address] CBC W/Diff, Automatedon -3 Absolute Neut Normal 2.0-7.7 [facility] Comment on above: Result Comment: Canc elled via OM: Order cancelled - Patient discharged Performed By: #### L 100.0100, L500.2500 ####[facility] [address] [place], [address] HCT Normal 40-54 [facility] Comment on above: Result Comment: Canc elled via OM: Order cancelled - Patient discharged Performed By: #### L 100.0100, L500.2500 ####[facility] [address] [place], [address] HGB Normal 13.0-16.5 [facility] Comment on above: Result Comment: Canc elled via OM: Order cancelled - Patient discharged Performed By: #### L 100.0100, L500.2500 ####[facility] [address] [place], [address] MCH Normal 27.0-32.0 [facility] Comment on above: Result Comment: Canc elled via OM: Order cancelled - Patient discharged Performed By: #### L 100.0100, L500.2500 ####[facility] [address] [place], [address] MCHC Normal 32-36 [facility] Comment on above: Result Comment: Canc elled via OM: Order cancelled - Patient discharged Performed By: #### L 100.0100, L500.2500 ####[facility] [address] [place], [address] MCV Normal 80-94 [facility] Comment on above: Result Comment: Canc elled via OM: Order cancelled - Patient discharged Performed By: #### L 100.0100, L500.2500 ####[facility] [address] [place], [address] NEUT% Normal 47-70 [facility] Comment on above: Result Comment: Canc elled via OM: Order cancelled - Patient discharged Performed By: #### L 100.0100, L500.2500 ####[facility] [address] [place], [address] PLT Normal 150-450 [facility] Comment on above: Result Comment: Canc elled via OM: Order cancelled - Patient discharged Performed By: #### L 100.0100, L500.2500 ####[facility] [address] [place], [address] RBC Normal 4.6-6.2 [facility] Comment on above: Result Comment: Canc elled via OM: Order cancelled - Patient discharged Performed By: #### L 100.0100, L500.2500 ####[facility] [address] [place], [address] RDW CV Normal 11.6-14.6 [facility] Comment on above: Result Comment: Canc elled via OM: Order cancelled - Patient discharged Performed By: #### L 100.0100, L500.2500 ####[facility] [address] [place], [address] RDW SD Normal 35.1-43.9 [facility] Comment on above: Result Comment: Canc elled via OM: Order cancelled - Patient discharged Performed By: #### L 100.0100, L500.2500 ####[facility] [address] [place], [address] WBC Normal 4.4-11.0 [facility] Comment on above: Result Comment: Canc elled via OM: Order cancelled - Patient discharged Performed By: #### L 100.0100, L500.2500 ####[facility] [address] [place], [address] CNOVon 12-09-2024 CNOV Office Visit (UROLWS ) OSVALDO LUCIO ([id number]) 1935 M Date Time Provider Department 12/09/24 9:30 AM MAXI FLORES During your visit today, we recorded the following information about you: Temperature Pulse Blood pressure Weight 97.6 degrees 109/minute 140/73 83.8 kg Maxi Flores APRN.SAMMY PRAJAPATI 12/09/2024 10:15 AM Signed [facility] MALE PATIENT - HISTORY AND PHYSICAL EXAMINATION PATIENT: Osvaldo Lucio 09/25/2023 PCP: Jeremi Morel MD Est patient to Urology CHIEF COMPLAINT: BPH/LUTS follow up HISTORY OF PRESENT ILLNESS: 89 year old year old male with BPH/LUTS. Main complaint was urinary frequency. Hx sig for: DM2, HTN, director long term care anticoagulation, HLD, CKD3 Doing well. Admitted to [facility] on 10/18/25 for Exertional dyspnea. Was admitted for several weeks and then went to [facility] for Rehab and [facility] now [facility]. Overall feeling well. Using a roller walker at this time. Does not have a webster catheter. Did while he was in the hospital. Passed TOV prior to discharge. BPH: Started on Proscar last year in addition to his Flomax 0.8 mg that he takes for his prostate/BPH. PVRs were higher until started on Proscar. Doing well. No SE. No gross hematuria. Urinary symptoms controlled. Overall feeling well. Happy with response. PRESENTING HISTORY: Hematuria: none Obstructive voiding symptoms: none. Irritative voiding symptoms: frequency Urinary retention: no Urinary incontinence: no Urinary tract infection: no Patient Entered Questionnaires: INTERNATIONAL PROSTATE SYMPTOM SCORE (I-PSS) PREVIOUS TOTAL IPSS SCORE: 1 QOL = 1 1. Incomplete emptying 0 2. Frequency 5 3. Intermittency 0 4. Urgency 0 5. Weak stream 1 6. Straining 0 7. 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 He has since 2006 had A1C [...] DISLOCATION W/REPAIR/INT/XTRNL FIXJ 1992 ORIF Ankle right [facility] REPLACEMENT, AORTIC VALVE, WITH CAR 01/03/2019 Social History Tobacco Use Smoking status: Former Types: Cigars Smokeless tobacco: Never Vaping Use Vaping status: Never Used Substance Use Topics Alcohol use: Not Currently Comment: Quit Drug use: Never FAMILY HISTORY Problem Relation Age of Onset Stroke Father brain aneurysm MEDICATIONS: Current Outpatient Medications Medication Sig potassium chloride (K-TAB) 10 mEq tablet TAKE 2 (TWO) TABLETS BY MOUTH EVERY DAY insulin 50/50 lispro protamine-lispro units/mL (HUMALOG MIX 50-50 KWIKPEN) 100 unit/mL (50-50) pen Inject 30 units in the morning and 28 Units in the evenings with meals. Per Dr. Wally tamsulosin (FLOMAX) 0.4 mg Take 2 capsules by mouth once daily. blood sugar diagnostic (BLOOD GLUCOSE TEST) test strip Test blood sugar(s) 2 times daily. Dx: Type 2 DM - Uncontrolled E11.65 Insulin: No doxepi (more content not included)... Normal [facility] UA DIP, URINE (POC)on 2024 BILIRUBIN UA (POCT) Negative Negative [facility] CLARITY UA (POCT) Clear [facility] COLOR UA (POCT) Yellow [facility] GLUCOSE UA (POCT) 100 mg/dL Abnormal Negative [facility] Hemoglobin Ql (U) Negative Negative [facility] Interpretation and review of laboratory results Abnormal [facility] KETONE UA (POCT) Negative Negative mg/dL [facility] LEUKOCYTES UA (POCT) Small Abnormal Negative [facility] NITRITE UA (POCT) Negative Negative [facility] PH UA (POCT) 5.5 4.5 - 8.0 [facility] Protein Ql (U) Negative Negative mg/dL [facility] SPECIFIC GRAVITY UA (POCT) 1.015 1.005 - 1.030 [facility] UROBILINOGEN UA (POCT) 0.2 Diana l E.U./dL [facility] Location:[facility], [address] [facility] [address], [place], [address] [facility] POINT OF CARE [facility] Basic Metabolic Profile (BMP )on 12-06-2024 BUN Normal 7-18 [facility] Comment on above: Result Comment: Canc elled via OM: Order cancelled - Patient discharged Performed By: #### L 500.2500, L100.0100 ####[facility] [address] [place], [address] BUN/CRE Normal 10-20 [facility] Comment on above: Result Comment: Canc elled via OM: Order cancelled - Patient discharged Performed By: #### L 500.2500, L100.0100 ####[facility] [address] [place], [address] CA,Total Normal 8.5-10.1 [facility] Comment on above: Result Comment: Canc elled via OM: Order cancelled - Patient discharged Performed By: #### L 500.2500, L100.0100 ####[facility] [address] [place], [address] CL Normal 98-107 [facility] Comment on above: Result Comment: Canc elled via OM: Order cancelled - Patient discharged Performed By: #### L 500.2500, L100.0100 ####[facility] [address] [place], [address] CO2 Normal 21.0-32.0 [facility] Comment on above: Result Comment: Canc elled via OM: Order cancelled - Patient discharged Performed By: #### L 500.2500, L100.0100 ####[facility] [address] [place], [address] CREAT,SERUM Normal 0.70-1.30 [facility] Comment on above: Result Comment: Canc elled via OM: Order cancelled - Patient discharged Performed By: #### L 500.2500, L100.0100 ####[facility] [address] [place], [address] EST GFR Normal >60 [facility] Comment on above: Result Comment: Canc elled via OM: Order cancelled - Patient discharged Performed By: #### L 500.2500, L100.0100 ####[facility] [address] [place], [address] EST GFR - AA Normal >60 [facility] Comment on above: Result Comment: Canc elled via OM: Order cancelled - Patient discharged Performed By: #### L 500.2500, L100.0100 ####[facility] [address] [place], [address] GAP Normal 5-15 [facility] Comment on above: Result Comment: Canc elled via OM: Order cancelled - Patient discharged Performed By: #### L 500.2500, L100.0100 ####[facility] [address] [place], [address] GLU Normal 74-106 [facility] Comment on above: Result Comment: Canc elled via OM: Order cancelled - Patient discharged Performed By: #### L 500.2500, L100.0100 ####[facility] [address] [place], [address] Potassium Normal 3.5-5.1 [facility] Comment on above: Result Comment: Canc elled via OM: Order cancelled - Patient discharged Performed By: #### L 500.2500, L100.0100 ####[facility] [address] [place], [address] Basic Metabolic Profile (BMP) Normal 136-145 [facility] Comment on above: Result Comment: Canc elled via OM: Order cancelled - Patient discharged Performed By: #### L 500.2500, L100.0100 ####[facility] [address] [place], [address] CBC W/Diff, Automatedon -2 Absolute Neut Normal 2.0-7.7 [facility] Comment on above: Result Comment: Canc elled via OM: Order cancelled - Patient discharged Performed By: #### L 500.2500, L100.0100 ####[facility] [address] [place], [address] HCT Normal 40-54 [facility] Comment on above: Result Comment: Canc elled via OM: Order cancelled - Patient discharged Performed By: #### L 500.2500, L100.0100 ####[facility] [address] [place], [address] HGB Normal 13.0-16.5 [facility] Comment on above: Result Comment: Canc elled via OM: Order cancelled - Patient discharged Performed By: #### L 500.2500, L100.0100 ####[facility] [address] [place], [address] MCH Normal 27.0-32.0 [facility] Comment on above: Result Comment: Canc elled via OM: Order cancelled - Patient discharged Performed By: #### L 500.2500, L100.0100 ####[facility] [address] [place], [address] MCHC Normal 32-36 [facility] Comment on above: Result Comment: Canc elled via OM: Order cancelled - Patient discharged Performed By: #### L 500.2500, L100.0100 ####[facility] [address] [place], [address] MCV Normal 80-94 [facility] Comment on above: Result Comment: Canc elled via OM: Order cancelled - Patient discharged Performed By: #### L 500.2500, L100.0100 ####[facility] [address] [place], [address] NEUT% Normal 47-70 [facility] Comment on above: Result Comment: Canc elled via OM: Order cancelled - Patient discharged Performed By: #### L 500.2500, L100.0100 ####[facility] [address] [place], [address] PLT Normal 150-450 [facility] Comment on above: Result Comment: Canc elled via OM: Order cancelled - Patient discharged Performed By: #### L 500.2500, L100.0100 ####[facility] [address] [place], [address] RBC Normal 4.6-6.2 [facility] Comment on above: Result Comment: Canc elled via OM: Order cancelled - Patient discharged Performed By: #### L 500.2500, L100.0100 ####[facility] [address] [place], [address] RDW CV Normal 11.6-14.6 [facility] Comment on above: Result Comment: Canc elled via OM: Order cancelled - Patient discharged Performed By: #### L 500.2500, L100.0100 ####[facility] [address] [place], [address] RDW SD Normal 35.1-43.9 [facility] Comment on above: Result Comment: Canc elled via OM: Order cancelled - Patient discharged Performed By: #### L 500.2500, L100.0100 ####[facility] [address] [place], [address] WBC Normal 4.4-11.0 [facility] Comment on above: Result Comment: Canc elled via OM: Order cancelled - Patient discharged Performed By: #### L 500.2500, L100.0100 ####[facility] [address] [place], [address] Basic Metabolic Profile (BMP )on 11-29-2024 BUN Normal 7-18 [facility] Comment on above: Result Comment: Canc elled via OM: Order cancelled - Patient discharged Performed By: #### L 500.2500, L100.0100 ####[facility] [address] [place], [address] BUN/CRE Normal 10-20 [facility] Comment on above: Result Comment: Canc elled via OM: Order cancelled - Patient discharged Performed By: #### L 500.2500, L100.0100 ####[facility] [address] [place], [address] CA,Total Normal 8.5-10.1 [facility] Comment on above: Result Comment: Canc elled via OM: Order cancelled - Patient discharged Performed By: #### L 500.2500, L100.0100 ####[facility] [address] [place], [address] CL Normal 98-107 [facility] Comment on above: Result Comment: Canc elled via OM: Order cancelled - Patient discharged Performed By: #### L 500.2500, L100.0100 ####[facility] [address] [place], [address] CO2 Normal 21.0-32.0 [facility] Comment on above: Result Comment: Canc elled via OM: Order cancelled - Patient discharged Performed By: #### L 500.2500, L100.0100 ####[facility] [address] [place], [address] CREAT,SERUM Normal 0.70-1.30 [facility] Comment on above: Result Comment: Canc elled via OM: Order cancelled - Patient discharged Performed By: #### L 500.2500, L100.0100 ####[facility] [address] [place], [address] EST GFR Normal >60 [facility] Comment on above: Result Comment: Canc elled via OM: Order cancelled - Patient discharged Performed By: #### L 500.2500, L100.0100 ####[facility] [address] [place], [address] EST GFR - AA Normal >60 [facility] Comment on above: Result Comment: Canc elled via OM: Order cancelled - Patient discharged Performed By: #### L 500.2500, L100.0100 ####[facility] [address] [place], [address] GAP Normal 5-15 [facility] Comment on above: Result Comment: Canc elled via OM: Order cancelled - Patient discharged Performed By: #### L 500.2500, L100.0100 ####[facility] [address] [place], [address] GLU Normal 74-106 [facility] Comment on above: Result Comment: Canc elled via OM: Order cancelled - Patient discharged Performed By: #### L 500.2500, L100.0100 ####[facility] [address] [place], [address] Potassium Normal 3.5-5.1 [facility] Comment on above: Result Comment: Canc elled via OM: Order cancelled - Patient discharged Performed By: #### L 500.2500, L100.0100 ####[facility] [address] [place], [address] Basic Metabolic Profile (BMP) Normal 136-145 [facility] Comment on above: Result Comment: Canc elled via OM: Order cancelled - Patient discharged Performed By: #### L 500.2500, L100.0100 ####[facility] [address] [place], [address] CBC W/Diff, Automatedon 11-13 Absolute Neut Normal 2.0-7.7 [facility] Comment on above: Result Comment: Canc elled via OM: Order cancelled - Patient discharged Performed By: #### L 500.2500, L100.0100 ####[facility] [address] [place], [address] HCT Normal 40-54 [facility] Comment on above: Result Comment: Canc elled via OM: Order cancelled - Patient discharged Performed By: #### L 500.2500, L100.0100 ####[facility] [address] [place], [address] HGB Normal 13.0-16.5 [facility] Comment on above: Result Comment: Canc elled via OM: Order cancelled - Patient discharged Performed By: #### L 500.2500, L100.0100 ####[facility] [address] [place], [address] MCH Normal 27.0-32.0 [facility] Comment on above: Result Comment: Canc elled via OM: Order cancelled - Patient discharged Performed By: #### L 500.2500, L100.0100 ####[facility] [address] [place], [address] MCHC Normal 32-36 [facility] Comment on above: Result Comment: Canc elled via OM: Order cancelled - Patient discharged Performed By: #### L 500.2500, L100.0100 ####[facility] [address] [place], [address] MCV Normal 80-94 [facility] Comment on above: Result Comment: Canc elled via OM: Order cancelled - Patient discharged Performed By: #### L 500.2500, L100.0100 ####[facility] [address] [place], [address] NEUT% Normal 47-70 [facility] Comment on above: Result Comment: Canc elled via OM: Order cancelled - Patient discharged Performed By: #### L 500.2500, L100.0100 ####[facility] [address] [place], [address] PLT Normal 150-450 [facility] Comment on above: Result Comment: Canc elled via OM: Order cancelled - Patient discharged Performed By: #### L 500.2500, L100.0100 ####[facility] [address] [place], [address] RBC Normal 4.6-6.2 [facility] Comment on above: Result Comment: Canc elled via OM: Order cancelled - Patient discharged Performed By: #### L 500.2500, L100.0100 ####[facility] [address] [place], [address] RDW CV Normal 11.6-14.6 [facility] Comment on above: Result Comment: Canc elled via OM: Order cancelled - Patient discharged Performed By: #### L 500.2500, L100.0100 ####[facility] [address] [place], [address] RDW SD Normal 35.1-43.9 [facility] Comment on above: Result Comment: Canc elled via OM: Order cancelled - Patient discharged Performed By: #### L 500.2500, L100.0100 ####[facility] [address] [place], [address] WBC Normal 4.4-11.0 [facility] Comment on above: Result Comment: Canc elled via OM: Order cancelled - Patient discharged Performed By: #### L 500.2500, L100.0100 ####[facility] [address] [place], [address] Basic Metabolic Profile (BMP )on 11-22-2024 BUN/CRE 22.6 RATIO High 10-20 [facility] Comment on above: Performed By: #### L 500.2500, L100.0100 ####[facility] [address] [place], [address] CA,Total 9.1 mg/dL Normal 8.5-10.1 [facility] Comment on above: Performed By: #### L 500.2500, L100.0100 ####[facility] [address] [place], [address] Chloride [Moles/Vol] 105 mmol/L Normal 98-107 [facility] Comment on above: Performed By: #### L 500.2500, L100.0100 ####[facility] [address] [place], [address] CO2 [Moles/Vol] 26.0 mmol/L Normal 21.0-32.0 [facility] Comment on above: Performed By: #### L 500.2500, L100.0100 ####[facility] [address] [place], [address] Creatinine [Mass/Vol] 1.15 mg/dL Normal 0.70-1.30 [facility] Comment on above: Result Comment: The validity of the calculated GFR GFRAA in patients over70 years has not been determined. Clinical correlation isessential. Performed By: #### L 500.2500, L100.0100 ####[facility] [address] [place], [address] ECRCL 43.78 ml/min Normal [facility] Comment on above: Performed By: #### L 500.2500, L100.0100 ####[facility] [address] [place], [address] EST GFR - AA 77 mL/min Normal >60 [facility] Comment on above: Result Comment: Afri can Japanese GFR Calc Performed By: #### L 500.2500, L100.0100 ####[facility] [address] [place], [address] GAP 6 Normal 5-15 [facility] Comment on above: Performed By: #### L 500.2500, L100.0100 ####[facility] [address] [place], [address] GFR/1.73 sq M.predicted among non-blacks MDRD (S/P/Bld) [Vol rate/Area] 64 mL/min/{1.73_m2} Normal >60 [facility] Comment on above: Result Comment: Non- GFR Calc Performed By: #### L 500.2500, L100.0100 ####[facility] [address] [place], [address] Glucose [Mass/Vol] 136 mg/dL High 74-106 [facility] Comment on above: Result Comment: Fast ing Glucose result greater than or equal to 126 mg/dLsuggests DIABETES MELLITUS per A.D.A. criteria. Performed By: #### L 500.2500, L100.0100 ####[facility] [address] [place], [address] Potassium [Moles/Vol] 3.8 mmol/L Normal 3.5-5.1 [facility] Comment on above: Performed By: #### L 500.2500, L100.0100 ####[facility] [address] [place], [address] Sodium [Moles/Vol] 137 mmol/L Normal 136-145 [facility] Comment on above: Performed By: #### L 500.2500, L100.0100 ####[facility] [address] [place], [address] Urea nitrogen [Mass/Vol] 26 mg/dL High 7-18 [facility] Comment on above: Performed By: #### L 500.2500, L100.0100 ####[facility] [address] [place], [address] Bedside Glucoseon 11-22-2024 FINGERSTICK GLU 134 mg/dL High 74-106 [facility] Comment on above: Result Comment: JOSE GUAJARDO OF PATIENT CARE PER NURSING PROTOCOL Performed By: #### L 501.080 ####[facility] [address] [place], [address] CBC W/Diff, Automatedon 11-13 Absolute Lymph 1.53 X10 3/uL Normal 0.83-4.51 [facility] Comment on above: Performed By: #### L 500.2500, L100.0100 ####[facility] [address] [place], [address] Absolute Neut 3.2 X10 3/uL Normal 2.0-7.7 [facility] Comment on above: Performed By: #### L 500.2500, L100.0100 ####[facility] [address] [place], [address] Basophils/100 WBC (Bld) 1.1 % High 0-1 [facility] Comment on above: Performed By: #### L 500.2500, L100.0100 ####[facility] [address] [place], [address] Eosinophils/100 WBC (Bld) 5.3 % High 0-5 [facility] Comment on above: Performed By: #### L 500.2500, L100.0100 ####[facility] [address] [place], [address] Erythrocyte distribution width (RBC) [Ratio] 15.9 % High 11.6-14.6 [facility] Comment on above: Performed By: #### L 500.2500, L100.0100 ####[facility] [address] [place], [address] Hematocrit (Bld) [Volume fraction] 30.4 % Low 40-54 [facility] Comment on above: Performed By: #### L 500.2500, L100.0100 ####[facility] [address] [place], [address] Hemoglobin (Bld) [Mass/Vol] 9.8 g/dL Low 13.0-16.5 [facility] Comment on above: Performed By: #### L 500.2500, L100.0100 ####[facility] [address] [place], [address] IG% 0.200 Normal 0.0-0.9 [facility] Comment on above: Result Comment: IG% - Immature Granulocytes (promyelocytes, myelocytes andmetamyelocytes) > 1% indicates that a LEFT SHIFT is Present. Performed By: #### L 500.2500, L100.0100 ####[facility] [address] [place], [address] Lymphocytes/100 WBC (Bld) 27.3 % Normal 19-41 [facility] Comment on above: Performed By: #### L 500.2500, L100.0100 ####[facility] [address] [place], [address] MCH (RBC) [Entitic mass] 28.5 pg Normal 27.0-32.0 [facility] Comment on above: Performed By: #### L 500.2500, L100.0100 ####[facility] [address] [place], [address] MCHC (RBC) [Mass/Vol] 32.2 g/dL Normal 32-36 [facility] Comment on above: Performed By: #### L 500.2500, L100.0100 ####[facility] [address] [place], [address] MCV (RBC) [Entitic vol] 88.4 fL Normal 80-94 [facility] Comment on above: Performed By: #### L 500.2500, L100.0100 ####[facility] [address] [place], [address] Monocytes/100 WBC (Bld) 9.4 % Normal 0-10 [facility] Comment on above: Performed By: #### L 500.2500, L100.0100 ####[facility] [address] [place], [address] Neutrophils/100 WBC (Bld) 56.7 % Normal 47-70 [facility] Comment on above: Performed By: #### L 500.2500, L100.0100 ####[facility] [address] [place], [address] Nucleated RBC (Bld) [#/Vol] 0 10*3/uL Normal 0-5 [facility] Comment on above: Performed By: #### L 500.2500, L100.0100 ####[facility] [address] [place], [address] Platelet mean volume (Bld) [Entitic vol] 11.5 fL Normal 6.2-12.0 [facility] Comment on above: Performed By: #### L 500.2500, L100.0100 ####[facility] [address] [place], [address] Platelets (Bld) [#/Vol] 146 10*3/uL Low 150-450 [facility] Comment on above: Performed By: #### L 500.2500, L100.0100 ####[facility] [address] [place], [address] RBC (Bld) [#/Vol] 3.44 10*6/uL Low 4.6-6.2 [facility] Comment on above: Performed By: #### L 500.2500, L100.0100 ####[facility] [address] [place], [address] RDW SD 51.8 fl High 35.1-43.9 [facility] Comment on above: Performed By: #### L 500.2500, L100.0100 ####[facility] [address] [place], [address] WBC (Bld) [#/Vol] 5.6 10*3/uL Normal 4.4-11.0 [facility] Comment on above: Performed By: #### L 500.2500, L100.0100 ####[facility] [address] [place], [address] Bedside Glucoseon 11-21-2024 FINGERSTICK GLU 125 mg/dL High 74-106 [facility] Comment on above: Result Comment: JOSE GEMENT OF PATIENT CARE PER NURSING PROTOCOL Performed By: #### L 501.080 ####[facility] [address] [place], [address] FINGERSTICK GLU 83 mg/dL Normal 74-106 [facility] Comment on above: Result Comment: JOSE GEMENT OF PATIENT CARE PER NURSING PROTOCOL Performed By: #### L 501.080 ####[facility] [address] [place], [address] Bedside Glucoseon 11-20-2024 FINGERSTICK GLU 120 mg/dL High 74-106 [facility] Comment on above: Result Comment: JOSE GEMENT OF PATIENT CARE PER NURSING PROTOCOL Performed By: #### L 501.080 ####[facility] [address] [place], [address] FINGERSTICK GLU 136 mg/dL High -106 [facility] Comment on above: Result Comment: JOSE GEMENT OF PATIENT CARE PER NURSING PROTOCOL Performed By: #### L 501.080 ####[facility] [address] [place], [address] Bedside Glucoseon 11-19-2024 FINGERSTICK GLU 95 mg/dL Normal 74[address] [place] [address] Comment on above: Result Comment: JOSE GEMENT OF PATIENT CARE PER NURSING PROTOCOL Performed By: #### L 501.080 ####[facility] [address] [place], [address] FINGERSTICK GLU 139 mg/dL High -106 [facility] Comment on above: Result Comment: JOSE GEMENT OF PATIENT CARE PER NURSING PROTOCOL Performed By: #### L 501.080 ####[facility] [address] [place], [address] Bedside Glucoseon 11-18-2024 FINGERSTICK GLU 120 mg/dL High 74-106 [facility] Comment on above: Result Comment: JOSE GEMENT OF PATIENT CARE PER NURSING PROTOCOL Performed By: #### L 501.080 ####[facility] [address] [place], [address] FINGERSTICK GLU 150 mg/dL High -[address] [place] [address] Comment on above: Result Comment: JOSE GEMENT OF PATIENT CARE PER NURSING PROTOCOL Performed By: #### L 501.080 ####[facility] [address] [place], [address] Bedside Glucoseon 11-17-2024 FINGERSTICK GLU 117 mg/dL High 74-106 [facility] Comment on above: Result Comment: JOSE GEMENT OF PATIENT CARE PER NURSING PROTOCOL Performed By: #### L 501.080 ####[facility] [address] [place], [address] FINGERSTICK GLU 140 mg/dL High 74-106 [facility] Comment on above: Result Comment: JOSE GEMENT OF PATIENT CARE PER NURSING PROTOCOL Performed By: #### L 501.080 ####[facility] [address] [place], [address] Bedside Glucoseon 11-16-2024 FINGERSTICK GLU 98 mg/dL Normal 74-106 [facility] Comment on above: Result Comment: JOSE GEMENT OF PATIENT CARE PER NURSING PROTOCOL Performed By: #### L 501.080 ####[facility] [address] [place], [address] FINGERSTICK GLU 142 mg/dL High 74-106 [facility] Comment on above: Result Comment: JOSE GEMENT OF PATIENT CARE PER NURSING PROTOCOL Performed By: #### L 501.080 ####[facility] [address] [place], [address] Basic Metabolic Profile (BMP )on 11-15-2024 BUN/CRE 21.8 RATIO High 10-20 [facility] Comment on above: Performed By: #### L 500.2500, L100.0100 ####[facility] [address] [place], [address] CA,Total 9.1 mg/dL Normal 8.5-10.1 [facility] Comment on above: Performed By: #### L 500.2500, L100.0100 ####[facility] [address] [place], [address] Chloride [Moles/Vol] 104 mmol/L Normal 98-107 [facility] Comment on above: Performed By: #### L 500.2500, L100.0100 ####[facility] [address] [place], [address] CO2 [Moles/Vol] 29.0 mmol/L Normal 21.0-32.0 [facility] Comment on above: Performed By: #### L 500.2500, L100.0100 ####[facility] [address] [place], [address] Creatinine [Mass/Vol] 1.01 mg/dL Normal 0.70-1.30 [facility] Comment on above: Result Comment: The validity of the calculated GFR GFRAA in patients over70 years has not been determined. Clinical correlation isessential. Performed By: #### L 500.2500, L100.0100 ####[facility] [address] [place], [address] ECRCL 49.85 ml/min Normal [facility] Comment on above: Performed By: #### L 500.2500, L100.0100 ####[facility] [address] [place], [address] EST GFR - AA 90 mL/min Normal >60 [facility] Comment on above: Result Comment: Afri can Japanese GFR Calc Performed By: #### L 500.2500, L100.0100 ####[facility] [address] [place], [address] GAP 4 Low 5-15 [facility] Comment on above: Performed By: #### L 500.2500, L100.0100 ####[facility] [address] [place], [address] GFR/1.73 sq M.predicted among non-blacks MDRD (S/P/Bld) [Vol rate/Area] 74 mL/min/{1.73_m2} Normal >60 [facility] Comment on above: Result Comment: Non- GFR Calc Performed By: #### L 500.2500, L100.0100 ####[facility] [address] [place], [address] Glucose [Mass/Vol] 155 mg/dL High 74-106 [facility] Comment on above: Result Comment: Fast ing Glucose result greater than or equal to 126 mg/dLsuggests DIABETES MELLITUS per A.D.A. criteria. Performed By: #### L 500.2500, L100.0100 ####[facility] [address] [place], [address] Potassium [Moles/Vol] 3.7 mmol/L Normal 3.5-5.1 [facility] Comment on above: Performed By: #### L 500.2500, L100.0100 ####[facility] [address] [place], [address] Sodium [Moles/Vol] 138 mmol/L Normal 136-145 [facility] Comment on above: Performed By: #### L 500.2500, L100.0100 ####[facility] [address] [place], [address] Urea nitrogen [Mass/Vol] 22 mg/dL High 7-18 [facility] Comment on above: Performed By: #### L 500.2500, L100.0100 ####[facility] [address] [place], [address] Bedside Glucoseon 11-15-2024 FINGERSTICK GLU 132 mg/dL High 74-106 [facility] Comment on above: Result Comment: JOSE GEMENT OF PATIENT CARE PER NURSING PROTOCOL Performed By: #### L 501.080 ####[facility] [address] [place], [address] FINGERSTICK GLU 146 mg/dL High 74-106 [facility] Comment on above: Result Comment: JOSE GEMENT OF PATIENT CARE PER NURSING PROTOCOL Performed By: #### L 501.080 ####[facility] [address] [place], [address] CBC W/Diff, Automatedon 01-0 3-2024 Absolute Lymph 1.61 X10 3/uL Normal 0.83-4.51 [facility] Comment on above: Performed By: #### L 500.2500, L100.0100 ####[facility] [address] [place], [address] Absolute Neut 3.3 X10 3/uL Normal 2.0-7.7 [facility] Comment on above: Performed By: #### L 500.2500, L100.0100 ####[facility] [address] [place], [address] Basophils/100 WBC (Bld) 0.7 % Normal 0-1 [facility] Comment on above: Performed By: #### L 500.2500, L100.0100 ####[facility] [address] [place], [address] Eosinophils/100 WBC (Bld) 6.2 % High 0-5 [facility] Comment on above: Performed By: #### L 500.2500, L100.0100 ####[facility] [address] [place], [address] Erythrocyte distribution width (RBC) [Ratio] 15.8 % High 11.6-14.6 [facility] Comment on above: Performed By: #### L 500.2500, L100.0100 ####[facility] [address] [place], [address] Hematocrit (Bld) [Volume fraction] 29.2 % Low 40-54 [facility] Comment on above: Performed By: #### L 500.2500, L100.0100 ####[facility] [address] [place], [address] Hemoglobin (Bld) [Mass/Vol] 9.2 g/dL Low 13.0-16.5 [facility] Comment on above: Performed By: #### L 500.2500, L100.0100 ####[facility] [address] [place], [address] IG% 0.500 Normal 0.0-0.9 [facility] Comment on above: Result Comment: IG% - Immature Granulocytes (promyelocytes, myelocytes andmetamyelocytes) > 1% indicates that a LEFT SHIFT is Present. Performed By: #### L 500.2500, L100.0100 ####[facility] [address] [place], [address] Lymphocytes/100 WBC (Bld) 27.8 % Normal 19-41 [facility] Comment on above: Performed By: #### L 500.2500, L100.0100 ####[facility] [address] [place], [address] MCH (RBC) [Entitic mass] 28.0 pg Normal 27.0-32.0 [facility] Comment on above: Performed By: #### L 500.2500, L100.0100 ####[facility] [address] [place], [address] MCHC (RBC) [Mass/Vol] 31.5 g/dL Low 32-36 [facility] Comment on above: Performed By: #### L 500.2500, L100.0100 ####[facility] [address] [place], [address] MCV (RBC) [Entitic vol] 88.8 fL Normal 80-94 [facility] Comment on above: Performed By: #### L 500.2500, L100.0100 ####[facility] [address] [place], [address] Monocytes/100 WBC (Bld) 8.4 % Normal 0-10 [facility] Comment on above: Performed By: #### L 500.2500, L100.0100 ####[facility] [address] [place], [address] Neutrophils/100 WBC (Bld) 56.4 % Normal 47-70 [facility] Comment on above: Performed By: #### L 500.2500, L100.0100 ####[facility] [address] [place], [address] Nucleated RBC (Bld) [#/Vol] 0 10*3/uL Normal 0-5 [facility] Comment on above: Performed By: #### L 500.2500, L100.0100 ####[facility] [address] [place], [address] Platelet mean volume (Bld) [Entitic vol] 10.5 fL Normal 6.2-12.0 [facility] Comment on above: Performed By: #### L 500.2500, L100.0100 ####[facility] [address] [place], [address] Platelets (Bld) [#/Vol] 181 10*3/uL Normal 150-450 [facility] Comment on above: Performed By: #### L 500.2500, L100.0100 ####[facility] [address] [place], [address] RBC (Bld) [#/Vol] 3.29 10*6/uL Low 4.6-6.2 [facility] Comment on above: Performed By: #### L 500.2500, L100.0100 ####[facility] [address] [place], [address] RDW SD 50.7 fl High 35.1-43.9 [facility] Comment on above: Performed By: #### L 500.2500, L100.0100 ####[facility] [address] [place], [address] WBC (Bld) [#/Vol] 5.8 10*3/uL Normal 4.4-11.0 [facility] Comment on above: Performed By: #### L 500.2500, L100.0100 ####[facility] [address] [place], [address] Bedside Glucoseon 11-14-2024 FINGERSTICK GLU 127 mg/dL [address] Comment on above: Result Comment: JOSE GEMENT OF PATIENT CARE PER NURSING PROTOCOL Performed By: #### L 501.080 ####[facility] [address] [place], [address] FINGERSTICK GLU 150 mg/dL [address] Comment on above: Result Comment: JOSE GEMENT OF PATIENT CARE PER NURSING PROTOCOL Performed By: #### L 501.080 ####[facility] [address] [place], [address] Bedside Glucoseon 11-13-2024 FINGERSTICK GLU 143 mg/dL High [address] [place] [address] Comment on above: Result Comment: JOSE GEMENT OF PATIENT CARE PER NURSING PROTOCOL Performed By: #### L 501.080 ####[facility] [address] [place], [address] FINGERSTICK GLU 151 mg/dL [address] Comment on above: Result Comment: JOSE GEMENT OF PATIENT CARE PER NURSING PROTOCOL Performed By: #### L 501.080 ####[facility] [address] [place], [address] Bedside Glucoseon 11-12-2024 FINGERSTICK GLU 166 mg/dL High [address] [place] [address] Comment on above: Result Comment: JOSE GEMENT OF PATIENT CARE PER NURSING PROTOCOL Performed By: #### L 501.080 ####[facility] [address] [place], [address] FINGERSTICK GLU 157 mg/dL High -106 [facility] Comment on above: Result Comment: JOSE GEMENT OF PATIENT CARE PER NURSING PROTOCOL Performed By: #### L 501.080 ####[facility] [address] [place], [address] Bedside Glucoseon 11-11-2024 FINGERSTICK GLU 120 mg/dL High [address] [facility] Comment on above: Result Comment: JOSE GEMENT OF PATIENT CARE PER NURSING PROTOCOL Performed By: #### L 501.080 ####[facility] [address] [place], [address] FINGERSTICK GLU 160 mg/dL High -106 [facility] Comment on above: Result Comment: JOSE GEMENT OF PATIENT CARE PER NURSING PROTOCOL Performed By: #### L 501.080 ####[facility] [address] [place], [address] Urine Cultureon 11-11-2024 URC Normal [facility] Comment on above: Performed By: #### M 100.2200, L400.0001 ####[facility] [address] [place], [address] Bedside Glucoseon 11-10-2024 FINGERSTICK GLU 168 mg/dL High [address] [place] [address] Comment on above: Result Comment: JOSE GEMENT OF PATIENT CARE PER NURSING PROTOCOL Performed By: #### L 501.080 ####[facility] [address] [place], [address] FINGERSTICK GLU 119 mg/dL High -106 [facility] Comment on above: Result Comment: JOSE GEMENT OF PATIENT CARE PER NURSING PROTOCOL Performed By: #### L 501.080 ####[facility] [address] [place], [address] FINGERSTICK GLU 147 mg/dL High -106 [facility] Comment on above: Result Comment: JOSE GEMENT OF PATIENT CARE PER NURSING PROTOCOL Performed By: #### L 501.080 ####[facility] [address] [place], [address] CBC W/Diff, Automatedon 12- Absolute Lymph 1.97 X10 3/uL Normal 0.83-4.51 [facility] Comment on above: Performed By: #### L 100.0100 ####[facility] [address] [place], [address] Absolute Neut 4.2 X10 3/uL Normal 2.0-7.7 [facility] Comment on above: Performed By: #### L 100.0100 ####[facility] [address] [place], [address] Basophils/100 WBC (Bld) 1.0 % Normal 0-1 [facility] Comment on above: Performed By: #### L 100.0100 ####[facility] [address] [place], [address] Eosinophils/100 WBC (Bld) 4.6 % Normal 0-5 [facility] Comment on above: Performed By: #### L 100.0100 ####[facility] [address] [place], [address] Erythrocyte distribution width (RBC) [Ratio] 14.6 % Normal 11.6-14.6 [facility] Comment on above: Performed By: #### L 100.0100 ####[facility] [address] [place], [address] Hematocrit (Bld) [Volume fraction] 28.6 % Low 40-54 [facility] Comment on above: Performed By: #### L 100.0100 ####[facility] [address] [place], [address] Hemoglobin (Bld) [Mass/Vol] 9.1 g/dL Low 13.0-16.5 [facility] Comment on above: Performed By: #### L 100.0100 ####[facility] [address] [place], [address] IG% 0.800 Normal 0.0-0.9 [facility] Comment on above: Result Comment: IG% - Immature Granulocytes (promyelocytes, myelocytes andmetamyelocytes) > 1% indicates that a LEFT SHIFT is Present. Performed By: #### L 100.0100 ####[facility] [address] [place], [address] Lymphocytes/100 WBC (Bld) 27.4 % Normal 19-41 [facility] Comment on above: Performed By: #### L 100.0100 ####[facility] [address] [place], [address] MCH (RBC) [Entitic mass] 28.3 pg Normal 27.0-32.0 [facility] Comment on above: Performed By: #### L 100.0100 ####[facility] [address] [place], [address] MCHC (RBC) [Mass/Vol] 31.8 g/dL Low 32-36 [facility] Comment on above: Performed By: #### L 100.0100 ####[facility] [address] [place], [address] MCV (RBC) [Entitic vol] 88.8 fL Normal 80-94 [facility] Comment on above: Performed By: #### L 100.0100 ####[facility] [address] [place], [address] Monocytes/100 WBC (Bld) 8.1 % Normal 0-10 [facility] Comment on above: Performed By: #### L 100.0100 ####[facility] [address] [place], [address] Neutrophils/100 WBC (Bld) 58.1 % Normal 47-70 [facility] Comment on above: Performed By: #### L 100.0100 ####[facility] [address] [place], [address] Nucleated RBC (Bld) [#/Vol] 0 10*3/uL Normal 0-5 [facility] Comment on above: Performed By: #### L 100.0100 ####[facility] [address] [place], [address] Platelet mean volume (Bld) [Entitic vol] 10.9 fL Normal 6.2-12.0 [facility] Comment on above: Performed By: #### L 100.0100 ####[facility] [address] [place], [address] Platelets (Bld) [#/Vol] 195 10*3/uL Normal 150-450 [facility] Comment on above: Performed By: #### L 100.0100 ####[facility] [address] [place], [address] RBC (Bld) [#/Vol] 3.22 10*6/uL Low 4.6-6.2 [facility] Comment on above: Performed By: #### L 100.0100 ####[facility] [address] [place], [address] RDW SD 47.5 fl High 35.1-43.9 [facility] Comment on above: Performed By: #### L 100.0100 ####[facility] [address] [place], [address] WBC (Bld) [#/Vol] 7.2 10*3/uL Normal 4.4-11.0 [facility] Comment on above: Performed By: #### L 100.0100 ####[facility] [address] [place], [address] Bedside Glucoseon 11-09-2024 FINGERSTICK GLU 136 mg/dL High 74-106 [facility] Comment on above: Result Comment: JOSE GEMENT OF PATIENT CARE PER NURSING PROTOCOL Performed By: #### L 501.080 ####[facility] [address] [place], [address] FINGERSTICK GLU 137 mg/dL High 74-106 [facility] Comment on above: Result Comment: JOSE GEMENT OF PATIENT CARE PER NURSING PROTOCOL Performed By: #### L 501.080 ####[facility] [address] [place], [address] HH, Hemoglobin AND Hematocri ton 11-09-2024 Hematocrit (Bld) [Volume fraction] 31.5 % Low 40-54 [facility] Comment on above: Performed By: #### L 100.0600 ####[facility] [address] [place], [address] Hemoglobin (Bld) [Mass/Vol] 10.2 g/dL Low 13.0-16.5 [facility] Comment on above: Performed By: #### L 100.0600 ####[facility] [address] [place], [address] Urinalysis, Completeon 11-09 BACTERIA 1+ /hpf Normal None Seen [facility] Comment on above: Order Comment: COLOR OF URINE MAY AFFECT DIPSTICK RESULTS.TEMPORARY STAFF ACCOUNTANT TO SPECIFY Performed By: #### M 100.2200, L400.0001 ####[facility] [address] [place], [address] EPI,SQUAMOUS 0-5 SEEN Normal 0-5 [facility] Comment on above: Order Comment: COLOR OF URINE MAY AFFECT DIPSTICK RESULTS.TEMPORARY STAFF ACCOUNTANT TO SPECIFY Performed By: #### M 100.2200, L400.0001 ####[facility] [address] [place], [address] RBC > 100 SEEN Normal 0-5 [facility] Comment on above: Order Comment: COLOR OF URINE MAY AFFECT DIPSTICK RESULTS.TEMPORARY STAFF ACCOUNTANT TO SPECIFY Performed By: #### M 100.2200, L400.0001 ####[facility] [address] [place], [address] WBC >100 SEEN Normal 0-5 [facility] Comment on above: Order Comment: COLOR OF URINE MAY AFFECT DIPSTICK RESULTS.TEMPORARY STAFF ACCOUNTANT TO SPECIFY Performed By: #### M 100.2200, L400.0001 ####[facility] [address] [place], [address] Mucus Ql (Urine sed) 0 SEEN Normal [facility] Comment on above: Order Comment: COLOR OF URINE MAY AFFECT DIPSTICK RESULTS.TEMPORARY STAFF ACCOUNTANT TO SPECIFY Performed By: #### M 100.2200, L400.0001 ####[facility] [address] [place], [address] Basic Metabolic Profile (BMP )on 11-08-2024 BUN/CRE 19.0 RATIO Normal 10-20 [facility] Comment on above: Performed By: #### L 500.2500, L100.0100 ####[facility] [address] [place], [address] CA,Total 8.9 mg/dL Normal 8.5-10.1 [facility] Comment on above: Performed By: #### L 500.2500, L100.0100 ####[facility] [address] [place], [address] Chloride [Moles/Vol] 103 mmol/L Normal 98-107 [facility] Comment on above: Performed By: #### L 500.2500, L100.0100 ####[facility] [address] [place], [address] CO2 [Moles/Vol] 30.0 mmol/L Normal 21.0-32.0 [facility] Comment on above: Performed By: #### L 500.2500, L100.0100 ####[facility] [address] [place], [address] Creatinine [Mass/Vol] 1.00 mg/dL Normal 0.70-1.30 [facility] Comment on above: Result Comment: The validity of the calculated GFR GFRAA in patients over70 years has not been determined. Clinical correlation isessential. Performed By: #### L 500.2500, L100.0100 ####[facility] [address] [place], [address] ECRCL 50.35 ml/min Normal [facility] Comment on above: Performed By: #### L 500.2500, L100.0100 ####[facility] [address] [place], [address] EST GFR - AA 91 mL/min Normal >60 [facility] Comment on above: Result Comment: Afri can Japanese GFR Calc Performed By: #### L 500.2500, L100.0100 ####[facility] [address] [place], [address] GAP 3 Low 5-15 [facility] Comment on above: Performed By: #### L 500.2500, L100.0100 ####[facility] [address] [place], [address] GFR/1.73 sq M.predicted among non-blacks MDRD (S/P/Bld) [Vol rate/Area] 75 mL/min/{1.73_m2} Normal >60 [facility] Comment on above: Result Comment: Non- GFR Calc Performed By: #### L 500.2500, L100.0100 ####[facility] [address] [place], [address] Glucose [Mass/Vol] 153 mg/dL High 74-106 [facility] Comment on above: Result Comment: Fast ing Glucose result greater than or equal to 126 mg/dLsuggests DIABETES MELLITUS per A.D.A. criteria. Performed By: #### L 500.2500, L100.0100 ####[facility] [address] [place], [address] Potassium [Moles/Vol] 3.5 mmol/L Normal 3.5-5.1 [facility] Comment on above: Performed By: #### L 500.2500, L100.0100 ####[facility] [address] [place], [address] Sodium [Moles/Vol] 137 mmol/L Normal 136-145 [facility] Comment on above: Performed By: #### L 500.2500, L100.0100 ####[facility] [address] [place], [address] Urea nitrogen [Mass/Vol] 19 mg/dL High 7-18 [facility] Comment on above: Performed By: #### L 500.2500, L100.0100 ####[facility] [address] [place], [address] Bedside Glucoseon 11-08-2024 FINGERSTICK GLU 140 mg/dL High 74-106 [facility] Comment on above: Result Comment: JOSE GUAJARDO OF PATIENT CARE PER NURSING PROTOCOL Performed By: #### L 501.080 ####[facility] [address] [place], [address] CBC W/Diff, Automatedon - Absolute Lymph 1.35 X10 3/uL Normal 0.83-4.51 [facility] Comment on above: Performed By: #### L 500.2500, L100.0100 ####[facility] [address] [place], [address] Absolute Neut 3.9 X10 3/uL Normal 2.0-7.7 [facility] Comment on above: Performed By: #### L 500.2500, L100.0100 ####[facility] [address] [place], [address] Basophils/100 WBC (Bld) 0.8 % Normal 0-1 [facility] Comment on above: Performed By: #### L 500.2500, L100.0100 ####[facility] [address] [place], [address] Eosinophils/100 WBC (Bld) 5.4 % High 0-5 [facility] Comment on above: Performed By: #### L 500.2500, L100.0100 ####[facility] [address] [place], [address] Erythrocyte distribution width (RBC) [Ratio] 14.6 % Normal 11.6-14.6 [facility] Comment on above: Performed By: #### L 500.2500, L100.0100 ####[facility] [address] [place], [address] Hematocrit (Bld) [Volume fraction] 29.6 % Low 40-54 [facility] Comment on above: Performed By: #### L 500.2500, L100.0100 ####[facility] [address] [place], [address] Hemoglobin (Bld) [Mass/Vol] 9.5 g/dL Low 13.0-16.5 [facility] Comment on above: Performed By: #### L 500.2500, L100.0100 ####[facility] [address] [place], [address] IG% 0.600 Normal 0.0-0.9 [facility] Comment on above: Result Comment: IG% - Immature Granulocytes (promyelocytes, myelocytes andmetamyelocytes) > 1% indicates that a LEFT SHIFT is Present. Performed By: #### L 500.2500, L100.0100 ####[facility] [address] [place], [address] Lymphocytes/100 WBC (Bld) 21.5 % Normal 19-41 [facility] Comment on above: Performed By: #### L 500.2500, L100.0100 ####[facility] [address] [place], [address] MCH (RBC) [Entitic mass] 28.5 pg Normal 27.0-32.0 [facility] Comment on above: Performed By: #### L 500.2500, L100.0100 ####[facility] [address] [place], [address] MCHC (RBC) [Mass/Vol] 32.1 g/dL Normal 32-36 [facility] Comment on above: Performed By: #### L 500.2500, L100.0100 ####[facility] [address] [place], [address] MCV (RBC) [Entitic vol] 88.9 fL Normal 80-94 [facility] Comment on above: Performed By: #### L 500.2500, L100.0100 ####[facility] [address] [place], [address] Monocytes/100 WBC (Bld) 9.2 % Normal 0-10 [facility] Comment on above: Performed By: #### L 500.2500, L100.0100 ####[facility] [address] [place], [address] Neutrophils/100 WBC (Bld) 62.5 % Normal 47-70 [facility] Comment on above: Performed By: #### L 500.2500, L100.0100 ####[facility] [address] [place], [address] Nucleated RBC (Bld) [#/Vol] 0 10*3/uL Normal 0-5 [facility] Comment on above: Performed By: #### L 500.2500, L100.0100 ####[facility] [address] [place], [address] Platelet mean volume (Bld) [Entitic vol] 10.4 fL Normal 6.2-12.0 [facility] Comment on above: Performed By: #### L 500.2500, L100.0100 ####[facility] [address] [place], [address] Platelets (Bld) [#/Vol] 203 10*3/uL Normal 150-450 [facility] Comment on above: Performed By: #### L 500.2500, L100.0100 ####[facility] [address] [place], [address] RBC (Bld) [#/Vol] 3.33 10*6/uL Low 4.6-6.2 [facility] Comment on above: Performed By: #### L 500.2500, L100.0100 ####[facility] [address] [place], [address] RDW SD 47.4 fl High 35.1-43.9 [facility] Comment on above: Performed By: #### L 500.2500, L100.0100 ####[facility] [address] [place], [address] WBC (Bld) [#/Vol] 6.3 10*3/uL Normal 4.4-11.0 [facility] Comment on above: Performed By: #### L 500.2500, L100.0100 ####[facility] [address] [place], [address] Bedside Glucoseon 11-07-2024 FINGERSTICK GLU 107 mg/dL High 74-106 [facility] Comment on above: Result Comment: JOSE GUAJARDO OF PATIENT CARE PER NURSING PROTOCOL Performed By: #### L 501.080 ####[facility] [address] [place], [address] FINGERSTICK GLU 133 mg/dL High 74-106 [facility] Comment on above: Result Comment: JOSE GEMENT OF PATIENT CARE PER NURSING PROTOCOL Performed By: #### L 501.080 ####[facility] [address] [place], [address] Bedside Glucoseon 12--4 FINGERSTICK GLU 199 mg/dL High 74-106 [facility] Comment on above: Result Comment: JOSE GEMENT OF PATIENT CARE PER NURSING PROTOCOL Performed By: #### L 501.080 ####[facility] [address] [place], [address] FINGERSTICK GLU 137 mg/dL High 74-106 [facility] Comment on above: Result Comment: JOSE GEMENT OF PATIENT CARE PER NURSING PROTOCOL Performed By: #### L 501.080 ####[facility] [address] [place], [address] Bedside Glucoseon 4 FINGERSTICK GLU 115 mg/dL High 74-106 [facility] Comment on above: Result Comment: JOSE GEMENT OF PATIENT CARE PER NURSING PROTOCOL Performed By: #### L 501.080 ####[facility] [address] [place], [address] FINGERSTICK GLU 137 mg/dL High 74-106 [facility] Comment on above: Result Comment: JOSE GEMENT OF PATIENT CARE PER NURSING PROTOCOL Performed By: #### L 501.080 ####[facility] [address] [place], [address] Bedside Glucoseon 124 FINGERSTICK GLU 135 mg/dL High 74-106 [facility] Comment on above: Result Comment: JOSE GEMENT OF PATIENT CARE PER NURSING PROTOCOL Performed By: #### L 501.080 ####[facility] [address] [place], [address] FINGERSTICK GLU 148 mg/dL High 74-106 [facility] Comment on above: Result Comment: JOSE GEMENT OF PATIENT CARE PER NURSING PROTOCOL Performed By: #### L 501.080 ####[facility] [address] [place], [address] [facility] OSVALDO [facility]UC[facility] ([id number]) 1935 M Date Time Provider Department 11/04/24 JEREMI MOREL INTMWS During your visit today, we recorded the following information about you: Gladys Eldridge RN 11/04/2024 12:30 PM Signed Kristina from [facility] calls and states that patient was discharged from [facility] on 11/01/2024 with the diagnosis of pleural effusion. Kristina if faxing over discharge notes. JOSAFAT Li Elizabeth, MA 11/04/2024 1:47 PM Signed Spoke to daughter so could do TCU and schedule patient. Daughter advised patient was transferred from [facility] to [facility] tcu floor and than will be discharged to snf where he will remain. When documents received will scan. Zuleika Cook MA Allergies As of Date: 11/04/2024 (No Known Allergies) Date Reviewed: 10/11/2024 Reviewed by: Dang Plummer MA - Fully Assessed Reason for Visit: Patient Update [1234] Prescriptions as of 11/04/2024 - potassium chloride (K-TAB) 10 mEq tablet TAKE 2 (TWO) TABLETS BY MOUTH EVERY DAY - insulin 50/50 lispro protamine-lispro units/mL (HUMALOG MIX 50-50 KWIKPEN) 100 unit/mL (50-50) pen Inject 30 units in the morning and 28 Units in the evenings with meals. Per Dr. Lo - tamsulosin (FLOMAX) 0.4 mg Take 2 capsules by mouth once daily. - finasteride (PROSCAR) 5 mg tablet Take 1 tablet by mouth once daily. - blood sugar diagnostic (BLOOD GLUCOSE TEST) test strip Test blood sugar(s) 2 times daily. Dx: Type 2 DM - Uncontrolled E11.65 Insulin: No - doxepin capsule 50 mg Take 1 capsule by mouth daily at bedtime. [facility] - mirtazapine (REMERON) 15 mg tablet Take 1 tablet by mouth daily at bedtime. [facility]. - furosemide (LASIX) 40 mg tablet Take 40 mg by mouth two times a day. - clonazePAM (KLONOPIN) 0.5 mg tablet Take 0.5 mg by mouth once daily as needed. - busPIRone (BUSPAR) 15 mg tablet Take 1 tablet by mouth every 12 hours. - Lancets lancets Test blood sugar(s) 2 times daily. Dx: Type 2 DM - Uncontrolled E11.65 Insulin: No - melatonin 5 mg tablet Take 1 tablet by mouth daily at bedtime. - amLODIPine (NORVASC) 10 mg tablet Take 1 tablet by mouth once daily. - lisinopril (ZESTRIL, PRINIVIL) 20 mg tablet Take 1 tablet by mouth twice daily. - metoprolol tartrate, short acting, (LOPRESSOR) 25 mg tablet Take 0.5 tablets by mouth twice daily. - ferrous sulfate 325 mg (65 mg iron) tablet Take 325 mg by mouth twice daily. - multivitamin with minerals (MULTI-VITAMIN W/MINERALS ORAL) Take 1 tablet by mouth once daily. - apixaban (ELIQUIS) 2.5 mg tab tab(s) Take 1 tablet by mouth twice daily. - atorvastatin (LIPITOR) 40 mg tablet Take 1 tablet by mouth once daily. 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 COVID 19 AG RAPID (JOSAFAT Richard)on 11-04-2024 SARS-CoV-2 (COVID-19) RNA ROXANNE+probe Ql (Unsp spec) SARS-CoV-2 (COVID 19) Negative RAPID METHOD BinaxNow COVID19 Ag Card Normal [facility] Comment on above: Performed By: #### M 100.505 ####[facility] [address] [place], [place], [address] Bedside Glucoseon 11-03-2024 FINGERSTICK GLU 119 mg/dL High 74-106 [facility] Comment on above: Result Comment: JOSE GEMENT OF PATIENT CARE PER NURSING PROTOCOL Performed By: #### L 501.080 ####[facility] [address] [place], [address] FINGERSTICK GLU 125 mg/dL High 74-106 [facility] Comment on above: Result Comment: JOSE GEMENT OF PATIENT CARE PER NURSING PROTOCOL Performed By: #### L 501.080 ####[facility] [address] [place], [address] Basic Metabolic Profile (BMP )on 11-02-2024 BUN/CRE 18.9 RATIO Normal 10-20 [facility] Comment on above: Performed By: #### L 100.0100, L500.2500 ####[facility] [address] [place], [address] CA,Total 8.7 mg/dL Normal 8.5-10.1 [facility] Comment on above: Performed By: #### L 100.0100, L500.2500 ####[facility] [address] [place], [address] Chloride [Moles/Vol] 103 mmol/L Normal 98-107 [facility] Comment on above: Performed By: #### L 100.0100, L500.2500 ####[facility] [address] [place], [address] CO2 [Moles/Vol] 27.0 mmol/L Normal 21.0-32.0 [facility] Comment on above: Performed By: #### L 100.0100, L500.2500 ####[facility] [address] [place], [address] Creatinine [Mass/Vol] 1.06 mg/dL Normal 0.70-1.30 [facility] Comment on above: Result Comment: The validity of the calculated GFR GFRAA in patients over70 years has not been determined. Clinical correlation isessential. Performed By: #### L 100.0100, L500.2500 ####[facility] [address] [place], [address] ECRCL 47.50 ml/min Normal [facility] Comment on above: Performed By: #### L 100.0100, L500.2500 ####[facility] [address] [place], [address] EST GFR - AA 85 mL/min Normal >60 [facility] Comment on above: Result Comment: Afri can Japanese GFR Calc Performed By: #### L 100.0100, L500.2500 ####[facility] [address] [place], [address] GAP 6 Normal 5-15 [facility] Comment on above: Performed By: #### L 100.0100, L500.2500 ####[facility] [address] [place], [address] GFR/1.73 sq M.predicted among non-blacks MDRD (S/P/Bld) [Vol rate/Area] 70 mL/min/{1.73_m2} Normal >60 [facility] Comment on above: Result Comment: Non- GFR Calc Performed By: #### L 100.0100, L500.2500 ####[facility] [address] [place], [address] Glucose [Mass/Vol] 122 mg/dL High 74-106 [facility] Comment on above: Result Comment: Fast ing Glucose result from 100 to 125 mg/dLsuggests IMPAIRED HOMEOSTASIS per A.D.A. criteria. Performed By: #### L 100.0100, L500.2500 ####[facility] [address] [place], [address] Potassium [Moles/Vol] 3.7 mmol/L Normal 3.5-5.1 [facility] Comment on above: Performed By: #### L 100.0100, L500.2500 ####[facility] [address] [place], [address] Sodium [Moles/Vol] 136 mmol/L Normal 136-145 [facility] Comment on above: Performed By: #### L 100.0100, L500.2500 ####[facility] [address] [place], [address] Urea nitrogen [Mass/Vol] 20 mg/dL High 7-18 [facility] Comment on above: Performed By: #### L 100.0100, L500.2500 ####[facility] [address] [place], [address] Bedside Glucoseon 11-02-2024 FINGERSTICK GLU 165 mg/dL High 74-106 [facility] Comment on above: Result Comment: JOSE GEMENT OF PATIENT CARE PER NURSING PROTOCOL Performed By: #### L 501.080 ####[facility] [address] [place], [address] FINGERSTICK GLU 123 mg/dL High 74-106 [facility] Comment on above: Result Comment: JOSE GEMENT OF PATIENT CARE PER NURSING PROTOCOL Performed By: #### L 501.080 ####[facility] [address] [place], [address] CBC W/Diff, Automatedon 12- Absolute Lymph 1.63 X10 3/uL Normal 0.83-4.51 [facility] Comment on above: Performed By: #### L 100.0100, L500.2500 ####[facility] [address] [place], [address] Absolute Neut 5.8 X10 3/uL Normal 2.0-7.7 [facility] Comment on above: Performed By: #### L 100.0100, L500.2500 ####[facility] [address] [place], [address] Basophils/100 WBC (Bld) 0.6 % Normal 0-1 [facility] Comment on above: Performed By: #### L 100.0100, L500.2500 ####[facility] [address] [place], [address] Eosinophils/100 WBC (Bld) 3.9 % Normal 0-5 [facility] Comment on above: Performed By: #### L 100.0100, L500.2500 ####[facility] [address] [place], [address] Erythrocyte distribution width (RBC) [Ratio] 14.6 % Normal 11.6-14.6 [facility] Comment on above: Performed By: #### L 100.0100, L500.2500 ####[facility] [address] [place], [address] Hematocrit (Bld) [Volume fraction] 27.0 % Low 40-54 [facility] Comment on above: Performed By: #### L 100.0100, L500.2500 ####[facility] [address] [place], [address] Hemoglobin (Bld) [Mass/Vol] 8.7 g/dL Low 13.0-16.5 [facility] Comment on above: Performed By: #### L 100.0100, L500.2500 ####[facility] [address] [place], [address] IG% 0.500 Normal 0.0-0.9 [facility] Comment on above: Result Comment: IG% - Immature Granulocytes (promyelocytes, myelocytes andmetamyelocytes) > 1% indicates that a LEFT SHIFT is Present. Performed By: #### L 100.0100, L500.2500 ####[facility] [address] [place], [address] Lymphocytes/100 WBC (Bld) 19.1 % Normal 19-41 [facility] Comment on above: Performed By: #### L 100.0100, L500.2500 ####[facility] [address] [place], [address] MCH (RBC) [Entitic mass] 28.5 pg Normal 27.0-32.0 [facility] Comment on above: Performed By: #### L 100.0100, L500.2500 ####[facility] [address] [place], [address] MCHC (RBC) [Mass/Vol] 32.2 g/dL Normal 32-36 [facility] Comment on above: Performed By: #### L 100.0100, L500.2500 ####[facility] [address] [place], [address] MCV (RBC) [Entitic vol] 88.5 fL Normal 80-94 [facility] Comment on above: Performed By: #### L 100.0100, L500.2500 ####[facility] [address] [place], [address] Monocytes/100 WBC (Bld) 8.7 % Normal 0-10 [facility] Comment on above: Performed By: #### L 100.0100, L500.2500 ####[facility] [address] [place], [address] Neutrophils/100 WBC (Bld) 67.2 % Normal 47-70 [facility] Comment on above: Performed By: #### L 100.0100, L500.2500 ####[facility] [address] [place], [address] Nucleated RBC (Bld) [#/Vol] 0 10*3/uL Normal 0-5 [facility] Comment on above: Performed By: #### L 100.0100, L500.2500 ####[facility] [address] [place], [address] Platelet mean volume (Bld) [Entitic vol] 10.1 fL Normal 6.2-12.0 [facility] Comment on above: Performed By: #### L 100.0100, L500.2500 ####[facility] [address] [place], [address] Platelets (Bld) [#/Vol] 254 10*3/uL Normal 150-450 [facility] Comment on above: Performed By: #### L 100.0100, L500.2500 ####[facility] [address] [place], [address] RBC (Bld) [#/Vol] 3.05 10*6/uL Low 4.6-6.2 [facility] Comment on above: Performed By: #### L 100.0100, L500.2500 ####[facility] [address] [place], [address] RDW SD 46.3 fl High 35.1-43.9 [facility] Comment on above: Performed By: #### L 100.0100, L500.2500 ####[facility] [address] [place], [address] WBC (Bld) [#/Vol] 8.6 10*3/uL Normal 4.4-11.0 [facility] Comment on above: Performed By: #### L 100.0100, L500.2500 ####[facility] [address] [place], [address] Bedside Glucoseon 11-01-2024 FINGERSTICK GLU 145 mg/dL High 74-106 [facility] Comment on above: Result Comment: JOSE GUAJARDO OF PATIENT CARE PER NURSING PROTOCOL Performed By: #### L 501.080 ####[facility] [address] [place], [address] LABORATORYOrdered By: Venkatesh Bradshaw on 11-01-2024 Blood Glucose Testing Reason Routine (11/01/24 8:21 AM) [facility] Work Phone: Glucose [Mass/Vol] 151 mg/dL High 82 - 115 mg/dL [facility] Work Phone: HGBon 10-31-2024 Hgb 10.1 G/dL Low 13.0-17.5 [facility] Comment on above: Performed By: #### C BC, BMP, ADIFF, GFR, ANEU #### [facility] [address] [place] [address] Hgb 7.4 G/dL Low 13.0-17.5 [facility] Comment on above: Performed By: #### C BC, BMP, ADIFF, GFR, ANEU #### [place] [address] LABORATORYOrdered By: Gabriella riley on 10-31-2024 Blood Glucose Testing Reason Routine (10/31/24 9:37 PM) [facility] Work Phone: Glucose [Mass/Vol] 172 mg/dL High 82 - 115 mg/dL [facility] Work Phone: LABORATORYOrdered By: Savannah Ulloa on 10-31-2024 Blood Glucose Testing Reason Routine (10/31/24 5:04 PM) [facility] Work Phone: Glucose [Mass/Vol] 103 mg/dL Normal 82 - 115 mg/dL [facility] Work Phone: LABORATORYOrdered By: SYSTEM SYSTEM on 10-31-2024 Hemoglobin (Bld) [Mass/Vol] 10.1 G/dL Low 13.0 - 17.5 G/dL [facility] Hemoglobin (Bld) [Mass/Vol] 7.4 G/dL Low 13.0 - 17.5 G/dL [facility] HGBon 10-30-2024 Hgb 10.4 G/dL Low 13.0-17.5 [facility] Comment on above: Performed By: #### C BC, BMP, ADIFF, GFR, ANEU #### [place] [address] LABORATORYOrdered By: SYSTEM SYSTEM on 10-30-2024 Hemoglobin (Bld) [Mass/Vol] 10.4 G/dL Low 13.0 - 17.5 G/dL [facility] .Auto Diffon 10-29-2024 Basophil, Absolute 0.1 10 3/mcL Normal 0.0-0.3 [facility] Comment on above: Performed By: #### C BC, BMP, ADIFF, GFR, ANEU #### [place] [address] Eosinophil, Absolute 0.4 10 3/mcL Normal 0.0-0.7 [facility] Comment on above: Performed By: #### C BC, BMP, ADIFF, GFR, ANEU #### [address] [address] Lymphocyte, Absolute 1.7 10 3/mcL Normal 0.9-4.3 [facility] Comment on above: Performed By: #### C BC, BMP, ADIFF, GFR, ANEU #### [address] [address] Monocyte, Absolute 0.8 10 3/mcL Normal 0.1-1.4 [facility] Comment on above: Performed By: #### C BC, BMP, ADIFF, GFR, ANEU #### [address] [address] .Auto DiffOrdered By: SYSTEM SYSTEM on 10-29-2024 Basophils/100 WBC (Bld) 1.0 % Normal 0.0-2.5 [facility] Comment on above: Performed By: #### C BC, BMP, ADIFF, GFR, ANEU #### [address] [address] Eosinophils/100 WBC (Bld) 4.1 % Normal 0.0-6.0 [facility] Comment on above: Performed By: #### C BC, BMP, ADIFF, GFR, ANEU #### [address] [address] Lymphocytes/100 WBC (Bld) 19.5 % Low 20.0-40.0 [facility] Comment on above: Performed By: #### C BC, BMP, ADIFF, GFR, ANEU #### [address] [address] Monocytes/100 WBC (Bld) 9.0 % Normal 2.0-13.0 [facility] Comment on above: Performed By: #### C BC, BMP, ADIFF, GFR, ANEU #### [address] [address] Neutrophils/100 WBC (Bld) 66.4 % Normal 50.0-75.0 [facility] Comment on above: Performed By: #### C BC, BMP, ADIFF, GFR, ANEU #### [address] [address] .GFRon 10-29-2024 GFR Non- >60 Normal [facility] [facility] MAIN Comment on above: Result Comment: GFR Population mean for , Non- Americans Ages 20-29 = 116 mL/min/1.73 sq.m. Ages 30-39 = 107 mL/min/1.73 sq.m. Ages 40-49 = 99 mL/min/1.73 sq.m. Ages 50-59 = 93 mL/min/1.73 sq.m. Ages 60-69 = 85 mL/min/1.73 sq.m. Ages 70+ = 75 mL/min/1.73 sq.m. Chronic Kidney Disease: Less than 60 mL/min/1.73 square meters End Stage Renal Disease: Less than 15 mL/min/1.73 square meters Performed By: #### C BC, BMP, ADIFF, GFR, ANEU #### [address] [address] GFR >60 Normal [facility] MAIN Comment on above: Result Comment: GFR Population mean for , Non- Americans Ages 20-29 = 116 mL/min/1.73 sq.m. Ages 30-39 = 107 mL/min/1.73 sq.m. Ages 40-49 = 99 mL/min/1.73 sq.m. Ages 50-59 = 93 mL/min/1.73 sq.m. Ages 60-69 = 85 mL/min/1.73 sq.m. Ages 70+ = 75 mL/min/1.73 sq.m. Chronic Kidney Disease: Less than 60 mL/min/1.73 square meters End Stage Renal Disease: Less than 15 mL/min/1.73 square meters Performed By: #### C BC, BMP, ADIFF, GFR, ANEU #### [address] [address] .NEUABSon 10-29-2024 Neutrophil, Absolute 5.8 10 3/mcL Normal 2.3-8.1 [facility] Comment on above: Performed By: #### C BC, BMP, ADIFF, GFR, ANEU #### [address] [address] BMPon 10-29-2024 BUN/Creatinine Ratio 16.8 ratio Normal 10.0-22.0 [facility] Comment on above: Performed By: #### C BC, BMP, ADIFF, GFR, ANEU #### [address] [address] BMPOrdered By: SYSTEM SYSTEM on 10-29-2024 Calcium [Mass/Vol] 9.0 mg/dL Normal 8.7-10.4 AH ADM SS Comment on above: Performed By: #### C BC, BMP, ADIFF, GFR, ANEU #### [place] [address] Chloride [Moles/Vol] 104 mmol/L Normal 98-110 AH A DM SS Comment on above: Performed By: #### C BC, BMP, ADIFF, GFR, ANEU #### [place] [id number] CO2 [Moles/Vol] 27 mmol/L Normal 22-32 AH ADM SS Comment on above: Performed By: #### C BC, BMP, ADIFF, GFR, ANEU #### [place] [address] Creatinine [Mass/Vol] 1.01 mg/dL Normal 0.60-1.40 AH ADM SS Comment on above: Interpretive Data: T esting performed on [employer] CH analyzer using enzymatic creatinine methodology. Result Comment: Test ing performed on [employer] CH analyzer using enzymatic creatinine methodology. Performed By: #### C BC, BMP, ADIFF, GFR, ANEU #### [place] [address] Electrolyte Balance 4.0 mEq/L Normal 4.0-15.0 AH AD M SS Comment on above: Performed By: #### C BC, BMP, ADIFF, GFR, ANEU #### [place] [address] Glucose [Mass/Vol] 137 mg/dL High 82-115 AH ADM SS Comment on above: Performed By: #### C BC, BMP, ADIFF, GFR, ANEU #### [place] [address] Potassium [Moles/Vol] 4.1 mmol/L Normal 3.5-5.0 AH ADM SS Comment on above: Performed By: #### C BC, BMP, ADIFF, GFR, ANEU #### [place] [address] Sodium [Moles/Vol] 135 mmol/L Low 136-145 AH ADM SS Comment on above: Performed By: #### C BC, BMP, ADIFF, GFR, ANEU #### [place] [address] Urea nitrogen [Mass/Vol] 17.0 mg/dL Normal 8.0-22.0 AH ADM SS Comment on above: Performed By: #### C BC, BMP, ADIFF, GFR, ANEU #### [place] [address] CBCOrdered By: SYSTEM SYSTEM on 10-29-2024 Erythrocyte distribution width (RBC) [Ratio] 15.0 % Normal 11.5-15.5 AH Workflow SS Comment on above: Performed By: #### C BC, BMP, ADIFF, GFR, ANEU #### [place] [address] Hematocrit (Bld) [Volume fraction] 29.6 % Low 40.0-52.0 AH Workflow SS Comment on above: Performed By: #### C BC, BMP, ADIFF, GFR, ANEU #### [place] [address] MCH (RBC) [Entitic mass] 29.3 pg Normal 27.0-33.0 AH Workflow SS Comment on above: Performed By: #### C BC, BMP, ADIFF, GFR, ANEU #### [place] [address] MCHC 33.2 G/dL Normal 32.0-36.0 AH Workflow SS Comment on above: Performed By: #### C BC, BMP, ADIFF, GFR, ANEU #### [place] [address] MCV (RBC) [Entitic vol] 88.2 fL Normal 81.0-100.0 AH Workflow SS Comment on above: Performed By: #### C BC, BMP, ADIFF, GFR, ANEU #### [place] [address] Platelet mean volume (Bld) [Entitic vol] 7.8 fL Normal 6.4-10.5 Workflow SS Comment on above: Performed By: #### C BC, BMP, ADIFF, GFR, ANEU #### [address] [address] CBCon 10-29-2024 Hgb 9.8 G/dL Low 13.0-17.5 [facility] MAIN Comment on above: Performed By: #### C BC, BMP, ADIFF, GFR, ANEU #### [address] [address] Platelet 228 10 3/mcL Normal 150-450 [facility] MAIN Comment on above: Performed By: #### C BC, BMP, ADIFF, GFR, ANEU #### [place] [address] RBC 3.36 10 6/mcL Low 4.50-6.00 [facility] MAIN Comment on above: Performed By: #### C BC, BMP, ADIFF, GFR, ANEU #### [place] [address] WBC 8.8 10 3/mcL Normal 4.5-10.8 [facility] Comment on above: Performed By: #### C BC, BMP, ADIFF, GFR, ANEU #### [address] [address] HGBon 10-29-2024 Hgb 10.4 G/dL Low 13.0-17.5 [facility] MAIN Comment on above: Performed By: #### H GB ####[place] [address] LABORATORYOrdered By: SYSTEM SYSTEM on 10-29-2024 Basophils (Bld) [#/Vol] 0.1 103/mcL Normal 0.0 - 0.3 10^3/mcL AH Workflow SS Eosinophils (Bld) [#/Vol] 0.4 103/mcL Normal 0.0 - 0.7 10^3/mcL Workflow SS GFR/1.73 sq M.predicted among blacks MDRD (S/P/Bld) [Vol rate/Area] ml/min/1.73sqm Invalid Interpretation Code Chemistry S Comment on above: Interpretive Data: GFR Population mean for , Non- Americans Ages 20-29 = 116 mL/min/1.73 sq.m. Ages 30-39 = 107 mL/min/1.73 sq.m. Ages 40-49 = 99 mL/min/1.73 sq.m. Ages 50-59 = 93 mL/min/1.73 sq.m. Ages 60-69 = 85 mL/min/1.73 sq.m. Ages 70+ = 75 mL/min/1.73 sq.m. Chronic Kidney Disease: Less than 60 mL/min/1.73 square meters End Stage Renal Disease: Less than 15 mL/min/1.73 square meters GFR/1.73 sq M.predicted among non-blacks MDRD (S/P/Bld) [Vol rate/Area] ml/min/1.73sqm Invalid Interpretation Code NELSON Brunner S Comment on above: Interpretive Data: GFR Population mean for , Non- Americans Ages 20-29 = 116 mL/min/1.73 sq.m. Ages 30-39 = 107 mL/min/1.73 sq.m. Ages 40-49 = 99 mL/min/1.73 sq.m. Ages 50-59 = 93 mL/min/1.73 sq.m. Ages 60-69 = 85 mL/min/1.73 sq.m. Ages 70+ = 75 mL/min/1.73 sq.m. Chronic Kidney Disease: Less than 60 mL/min/1.73 square meters End Stage Renal Disease: Less than 15 mL/min/1.73 square meters Lymphocytes (Bld) [#/Vol] 1.7 103/mcL Normal 0.9 - 4.3 10^3/mcL Workflow SS Monocytes (Bld) [#/Vol] 0.8 103/mcL Normal 0.1 - 1.4 10^3/mcL Workflow SS Neutrophils (Bld) [#/Vol] 5.8 103/mcL Normal 2.3 - 8.1 10^3/mcL AH Workflow SS Platelets (Bld) [#/Vol] 228 103/mcL Normal 150 - 450 10^3/mcL Workflow SS RBC (Bld) [#/Vol] 3.36 106/mcL Low 4.50 - 6.00 10^6/mcL AH Workflow SS Urea nitrogen/Creatinine [Mass ratio] 16.8 ratio Normal 10.0 - 22.0 ratio AH ADM SS WBC (Bld) [#/Vol] 8.8 103/mcL Normal 4.5 - 10.8 10^3/mcL AH Workflow SS .Auto Diffon 10-28-2024 Basophil, Absolute 0.1 10 3/mcL Normal 0.0-0.3 [facility]IN Comment on above: Performed By: #### C BC, BMP, ADIFF, GFR, ANEU #### [address] [address] Basophils/100 WBC (Bld) 0.5 % Normal 0.0-2.5 [facility] Comment on above: Performed By: #### C BC, BMP, ADIFF, GFR, ANEU #### [address] [address] Eosinophil, Absolute 0.3 10 3/mcL Normal 0.0-0.7 [facility] Comment on above: Performed By: #### C BC, BMP, ADIFF, GFR, ANEU #### [address] [address] Eosinophils/100 WBC (Bld) 2.5 % Normal 0.0-6.0 [facility] Comment on above: Performed By: #### C BC, BMP, ADIFF, GFR, ANEU #### [address] [address] Lymphocyte, Absolute 1.4 10 3/mcL Normal 0.9-4.3 [facility] Comment on above: Performed By: #### C BC, BMP, ADIFF, GFR, ANEU #### [address] [address] Lymphocytes/100 WBC (Bld) 13.3 % Low 20.0-40.0 [facility] Comment on above: Performed By: #### C BC, BMP, ADIFF, GFR, ANEU #### [address] [address] Monocyte, Absolute 0.9 10 3/mcL Normal 0.1-1.4 [facility] Comment on above: Performed By: #### C BC, BMP, ADIFF, GFR, ANEU #### [address] [address] Monocytes/100 WBC (Bld) 8.5 % Normal 2.0-13.0 [facility] Comment on above: Performed By: #### C BC, BMP, ADIFF, GFR, ANEU #### [address] [address] Neutrophils/100 WBC (Bld) 75.2 % High 50.0-75.0 [facility] Comment on above: Performed By: #### C BC, BMP, ADIFF, GFR, ANEU #### [address] [address] .GFRon 10-28-2024 GFR >60 Normal [facility] MAIN Comment on above: Result Comment: GFR Population mean for , Non- Americans Ages 20-29 = 116 mL/min/1.73 sq.m. Ages 30-39 = 107 mL/min/1.73 sq.m. Ages 40-49 = 99 mL/min/1.73 sq.m. Ages 50-59 = 93 mL/min/1.73 sq.m. Ages 60-69 = 85 mL/min/1.73 sq.m. Ages 70+ = 75 mL/min/1.73 sq.m. Chronic Kidney Disease: Less than 60 mL/min/1.73 square meters End Stage Renal Disease: Less than 15 mL/min/1.73 square meters Performed By: #### C BC, BMP, ADIFF, GFR, ANEU #### [address] [address] GFR Non- >60 Normal [facility] MAIN Comment on above: Result Comment: GFR Population mean for , Non- Americans Ages 20-29 = 116 mL/min/1.73 sq.m. Ages 30-39 = 107 mL/min/1.73 sq.m. Ages 40-49 = 99 mL/min/1.73 sq.m. Ages 50-59 = 93 mL/min/1.73 sq.m. Ages 60-69 = 85 mL/min/1.73 sq.m. Ages 70+ = 75 mL/min/1.73 sq.m. Chronic Kidney Disease: Less than 60 mL/min/1.73 square meters End Stage Renal Disease: Less than 15 mL/min/1.73 square meters Performed By: #### C BC, BMP, ADIFF, GFR, ANEU #### [address] [address] .NEUABSon 10-28-2024 Neutrophil, Absolute 8.0 10 3/mcL Normal 2.3-8.1 [facility] Comment on above: Performed By: #### C BC, BMP, ADIFF, GFR, ANEU #### [place] [id number] [facility] BUN/Creatinine Ratio 14.7 ratio Normal 10.0-22.0 [facility] Comment on above: Performed By: #### C BC, BMP, ADIFF, GFR, ANEU #### [place] [address] Calcium [Mass/Vol] 8.5 mg/dL Low 8.7-10.4 [facility] Comment on above: Performed By: #### C BC, BMP, ADIFF, GFR, ANEU #### [place] [address] Chloride [Moles/Vol] 101 mmol/L Normal 98-110 [facility] Comment on above: Performed By: #### C BC, BMP, ADIFF, GFR, ANEU #### [place] [address] CO2 [Moles/Vol] 29 mmol/L Normal 22-32 [facility] Comment on above: Performed By: #### C BC, BMP, ADIFF, GFR, ANEU #### [place] [address] Creatinine [Mass/Vol] 1.02 mg/dL Normal 0.60-1.40 [facility] Comment on above: Result Comment: Test ing performed on [employer] analyzer using enzymatic creatinine methodology. Performed By: #### C BC, BMP, ADIFF, GFR, ANEU #### [place] [address] Electrolyte Balance 6.0 mEq/L Normal 4.0-15.0 [facility] Comment on above: Performed By: #### C BC, BMP, ADIFF, GFR, ANEU #### [place] [id number] Glucose [Mass/Vol] 114 mg/dL Normal 82-115 [facility] Comment on above: Performed By: #### C BC, BMP, ADIFF, GFR, ANEU #### [place] [id number] Potassium [Moles/Vol] 3.8 mmol/L Normal 3.5-5.0 [facility] Comment on above: Performed By: #### C BC, BMP, ADIFF, GFR, ANEU #### [place] [id number] Sodium [Moles/Vol] 136 mmol/L Normal 136-145 [facility] Comment on above: Performed By: #### C BC, BMP, ADIFF, GFR, ANEU #### [place] [address] Urea nitrogen [Mass/Vol] 15.0 mg/dL Normal 8.0-22.0 [facility] Comment on above: Performed By: #### C BC, BMP, ADIFF, GFR, ANEU #### [place] [id number] CBCon 10-28-2024 Erythrocyte distribution width (RBC) [Ratio] 14.5 % Normal 11.5-15.5 [facility] MAIN Comment on above: Performed By: #### C BC, BMP, ADIFF, GFR, ANEU #### [place] [id number] Hematocrit (Bld) [Volume fraction] 27.4 % Low 40.0-52.0 [facility] Comment on above: Performed By: #### C BC, BMP, ADIFF, GFR, ANEU #### [place] [id number] Hgb 9.4 G/dL Low 13.0-17.5 [facility] MAIN Comment on above: Performed By: #### C BC, BMP, ADIFF, GFR, ANEU #### [place] [id number] MCH (RBC) [Entitic mass] 30.0 pg Normal 27.0-33.0 [facility] MAIN Comment on above: Performed By: #### C BC, BMP, ADIFF, GFR, ANEU #### [place] [address] MCHC 34.3 G/dL Normal 32.0-36.0 [facility] Comment on above: Performed By: #### C BC, BMP, ADIFF, GFR, ANEU #### [place] [address] MCV (RBC) [Entitic vol] 87.4 fL Normal 81.0-100.0 [facility]IN Comment on above: Performed By: #### C BC, BMP, ADIFF, GFR, ANEU #### [place] [address] Platelet 224 10 3/mcL Normal 150-450 [facility] MAIN Comment on above: Performed By: #### C BC, BMP, ADIFF, GFR, ANEU #### [place] [address] Platelet mean volume (Bld) [Entitic vol] 7.8 fL Normal 6.4-10.5 [facility] MAIN Comment on above: Performed By: #### C BC, BMP, ADIFF, GFR, ANEU #### [place] [address] RBC 3.14 10 6/mcL Low 4.50-6.00 [facility] MAIN Comment on above: Performed By: #### C BC, BMP, ADIFF, GFR, ANEU #### [place] [address] WBC 10.7 10 3/mcL Normal 4.5-10.8 [facility] MA[facility] Comment on above: Performed By: #### C BC, BMP, ADIFF, GFR, ANEU #### [place] [address] HGBon 10-28-2024 Hgb 10.0 G/dL Low 13.0-17.5 [facility] Comment on above: Performed By: #### C BC, BMP, ADIFF, GFR, ANEU #### [address], [place] [address] LABORATORYOrdered By: SYSTEM SYSTEM on 10-28-2024 Basophils (Bld) [#/Vol] 0.1 103/mcL Normal 0.0 - 0.3 10^3/mcL AH Workflow SS Basophils/100 WBC (Bld) 0.5 % Normal 0.0 - 2.5 % AH Workflow SS Calcium [Mass/Vol] 8.5 mg/dL Low 8.7 - 10. 4 mg/dL ADM SS Chloride [Moles/Vol] 101 mmol/L Normal 98 - 11 0 mEq/L ADM SS CO2 [Moles/Vol] 29 mmol/L Normal 22 - 32 mEq/L ADM SS Creatinine [Mass/Vol] 1.02 mg/dL Normal 0.60 - 1.40 mg/dL ADM SS Comment on above: Interpretive Data: T esting performed on [employer] analyzer using enzymatic creatinine methodology. Electrolyte Balance 6.0 mEq/L Normal 4.0 - 15 .0 mEq/L ADM SS Eosinophils (Bld) [#/Vol] 0.3 103/mcL Normal 0.0 - 0.7 10^3/mcL AH Workflow SS Eosinophils/100 WBC (Bld) 2.5 % Normal 0.0 - 6.0 % AH Workflow SS Erythrocyte distribution width (RBC) [Ratio] 14.5 % Normal 11.5 - 15.5 % Workflow SS GFR/1.73 sq M.predicted among blacks MDRD (S/P/Bld) [Vol rate/Area] ml/min/1.73sqm Invalid Interpretation Code Chemistry S Comment on above: Interpretive Data: GFR Population mean for , Non- Americans Ages 20-29 = 116 mL/min/1.73 sq.m. Ages 30-39 = 107 mL/min/1.73 sq.m. Ages 40-49 = 99 mL/min/1.73 sq.m. Ages 50-59 = 93 mL/min/1.73 sq.m. Ages 60-69 = 85 mL/min/1.73 sq.m. Ages 70+ = 75 mL/min/1.73 sq.m. Chronic Kidney Disease: Less than 60 mL/min/1.73 square meters End Stage Renal Disease: Less than 15 mL/min/1.73 square meters GFR/1.73 sq M.predicted among non-blacks MDRD (S/P/Bld) [Vol rate/Area] ml/min/1.73sqm Invalid Interpretation Code Chemistry S Comment on above: Interpretive Data: GFR Population mean for , Non- Americans Ages 20-29 = 116 mL/min/1.73 sq.m. Ages 30-39 = 107 mL/min/1.73 sq.m. Ages 40-49 = 99 mL/min/1.73 sq.m. Ages 50-59 = 93 mL/min/1.73 sq.m. Ages 60-69 = 85 mL/min/1.73 sq.m. Ages 70+ = 75 mL/min/1.73 sq.m. Chronic Kidney Disease: Less than 60 mL/min/1.73 square meters End Stage Renal Disease: Less than 15 mL/min/1.73 square meters Glucose [Mass/Vol] 114 mg/dL Normal 82 - 115 mg/dL ADM SS Hematocrit (Bld) [Volume fraction] 27.4 % Low 40.0 - 52.0 % AH Workflow SS Lymphocytes (Bld) [#/Vol] 1.4 103/mcL Normal 0.9 - 4.3 10^3/mcL AH Workflow SS Lymphocytes/100 WBC (Bld) 13.3 % Low 20.0 - 40.0 % AH Workflow SS Magnesium [Mass/Vol] 2.1 mg/dL Normal 1.6 - 2 .4 mg/dL ADM SS MCH (RBC) [Entitic mass] 30.0 pg Normal 27.0 - 33.0 pg AH Workflow SS MCHC 34.3 G/dL Normal 32.0 - 36.0 G/dL AH Workflow SS MCV (RBC) [Entitic vol] 87.4 fL Normal 81.0 - 100.0 fL AH Workflow SS Monocytes (Bld) [#/Vol] 0.9 103/mcL Normal 0.1 - 1.4 10^3/mcL AH Workflow SS Monocytes/100 WBC (Bld) 8.5 % Normal 2.0 - 13.0 % AH Workflow SS Neutrophils (Bld) [#/Vol] 8.0 103/mcL Normal 2.3 - 8.1 10^3/mcL AH Workflow SS Neutrophils/100 WBC (Bld) 75.2 % High 50.0 - 75.0 % AH Workflow SS Platelet mean volume (Bld) [Entitic vol] 7.8 fL Normal 6.4 - 10.5 fL AH Workflow SS Platelets (Bld) [#/Vol] 224 103/mcL Normal 150 - 450 10^3/mcL AH Workflow SS Potassium [Moles/Vol] 3.8 mmol/L Normal 3.5 - 5.0 mEq/L AH ADM SS RBC (Bld) [#/Vol] 3.14 106/mcL Low 4.50 - 6.00 10^6/mcL AH Workflow SS Sodium [Moles/Vol] 136 mmol/L Normal 136 - 145 mEq/L ADM SS Urea nitrogen [Mass/Vol] 15.0 mg/dL Normal 8.0 - 22.0 mg/dL ADM SS Urea nitrogen/Creatinine [Mass ratio] 14.7 ratio Normal 10.0 - 22.0 ratio ADM SS WBC (Bld) [#/Vol] 10.7 103/mcL Normal 4.5 - 10.8 10^3/mcL Workflow SS MGon 10-28-2024 Magnesium [Mass/Vol] 2.1 mg/dL Normal 1.6-2.4 [facility] Comment on above: Performed By: #### C BC, BMP, ADIFF, GFR, ANEU #### [place] [address] XR CHEST 1 VIEWon 10-28-2024 XR CHEST 1 VIEW ORIGINAL EXAMINATION: ONE XRAY VIEW OF THE CHEST 10/28/2024 1:50 pm COMPARISON: Chest x-ray October 28, 2024 HISTORY: ORDERING SYSTEM PROVIDED HISTORY: Reason for Exam: ptx FINDINGS: Stable postsurgical changes. Mild rotation to the right. Cardiomediastinal silhouette is unchanged. Calcifications in the aortic arch. Central pulmonary vascular congestion with diffuse interstitial pattern. Bibasilar opacities with blunted costophrenic angles related to bilateral pleural effusions. Interval removal of left pleural pigtail catheter. No pneumothorax. No acute osseous abnormality. IMPRESSION: Interval removal of left pleural pigtail catheter without evidence of pneumothorax. There is residual small left pleural effusion with likely underlying left base atelectasis and or consolidation. Small right base effusion with likely underlying atelectasis and or consolidation. Unchanged interstitial prominence which may be related to edema versus a diffuse interstitial infectious or inflammatory process. Interpreted by: Dangelo Aviles Preliminary Report By: Reggie Vinson Electronically signed By Dangelo Aviles Dictated Date: 10/28/2024 1:51:38 PM Prelim Date: 10/28/2024 4:26:05 PM Sign Date: 10/28/2024 4:26:05 PM Ordering Provider: SKYLA SUE [facility] XR CHEST 1 VIEW ORIGINAL EXAMINATION: ONE XRAY VIEW OF THE CHEST 10/28/2024 6:30 am COMPARISON: Chest x-ray on 10/27/2024 HISTORY: ORDERING SYSTEM PROVIDED HISTORY: Reason for Exam: chest tube, resolved pneumothorax, high chest tube output FINDINGS: Left basilar pleural pigtail drain is unchanged. The heart size is normal. Bilateral interstitial infiltrates are unchanged. There is small right pleural effusion. No significant left pleural fluid is present. There is no visible pneumothorax. IMPRESSION: 1. Unchanged bilateral interstitial infiltrates. 2. Small right pleural effusion. Interpreted by: Manuel Bueno MD Preliminary Report By: Manuel Bueno MD Electronically signed By Manuel Bueno MD Dictated Date: 10/28/2024 6:33:08 AM Prelim Date: 10/28/2024 6:35:22 AM Sign Date: 10/28/2024 6:35:22 AM Ordering Provider: MANSOOR HERNDON [facility] .Auto Diffon 10-27-2024 Basophil, Absolute 0.1 10 3/mcL Normal 0.0-0.3 [facility] Comment on above: Performed By: #### C BC, BMP, ADIFF, GFR, ANEU #### [address] [address] Basophils/100 WBC (Bld) 1.1 % Normal 0.0-2.5 [facility]IN Comment on above: Performed By: #### C BC, BMP, ADIFF, GFR, ANEU #### [address] [address] Eosinophil, Absolute 0.3 10 3/mcL Normal 0.0-0.7 [facility] Comment on above: Performed By: #### C BC, BMP, ADIFF, GFR, ANEU #### [address] [address] Eosinophils/100 WBC (Bld) 3.8 % Normal 0.0-6.0 [facility] Comment on above: Performed By: #### C BC, BMP, ADIFF, GFR, ANEU #### [address] [address] Lymphocyte, Absolute 1.3 10 3/mcL Normal 0.9-4.3 [facility] Comment on above: Performed By: #### C BC, BMP, ADIFF, GFR, ANEU #### [address] [address] Lymphocytes/100 WBC (Bld) 17.4 % Low 20.0-40.0 [facility] Comment on above: Performed By: #### C BC, BMP, ADIFF, GFR, ANEU #### [address] [address] Monocyte, Absolute 0.8 10 3/mcL Normal 0.1-1.4 [facility] Comment on above: Performed By: #### C BC, BMP, ADIFF, GFR, ANEU #### [address] [address] Monocytes/100 WBC (Bld) 10.0 % Normal 2.0-13.0 [facility] Comment on above: Performed By: #### C BC, BMP, ADIFF, GFR, ANEU #### [address] [address] Neutrophils/100 WBC (Bld) 67.7 % Normal 50.0-75.0 [facility] Comment on above: Performed By: #### C BC, BMP, ADIFF, GFR, ANEU #### [address] [address] .GFRon 10-27-2024 GFR >60 Normal [facility] Comment on above: Result Comment: GFR Population mean for , Non- Americans Ages 20-29 = 116 mL/min/1.73 sq.m. Ages 30-39 = 107 mL/min/1.73 sq.m. Ages 40-49 = 99 mL/min/1.73 sq.m. Ages 50-59 = 93 mL/min/1.73 sq.m. Ages 60-69 = 85 mL/min/1.73 sq.m. Ages 70+ = 75 mL/min/1.73 sq.m. Chronic Kidney Disease: Less than 60 mL/min/1.73 square meters End Stage Renal Disease: Less than 15 mL/min/1.73 square meters Performed By: #### C BC, BMP, ADIFF, GFR, ANEU #### [address] [address] GFR Non- >60 Normal [facility] Comment on above: Result Comment: GFR Population mean for , Non- Americans Ages 20-29 = 116 mL/min/1.73 sq.m. Ages 30-39 = 107 mL/min/1.73 sq.m. Ages 40-49 = 99 mL/min/1.73 sq.m. Ages 50-59 = 93 mL/min/1.73 sq.m. Ages 60-69 = 85 mL/min/1.73 sq.m. Ages 70+ = 75 mL/min/1.73 sq.m. Chronic Kidney Disease: Less than 60 mL/min/1.73 square meters End Stage Renal Disease: Less than 15 mL/min/1.73 square meters Performed By: #### C BC, BMP, ADIFF, GFR, ANEU #### [address] [address] .NEUABSon 10-27-2024 Neutrophil, Absolute 5.2 10 3/mcL Normal 2.3-8.1 [facility] Comment on above: Performed By: #### C BC, BMP, ADIFF, GFR, ANEU #### [address] [address] APTTon 10-27-2024 aPTT Coag (Bld) [Time] 27.8 s Normal 25.0-35.0 [facility] Comment on above: Result Comment: For Heparin anticoagulation therapy, the recommended therapeutic range is: 54-77 seconds (APTT Correlation with Anti-Xa therapeutic range of 0.3-0.7 units/ml). PLEASE REFERENCE THE PHARMACY PROTOCOL FOR DOSING. Performed By: #### C BC, BMP, ADIFF, GFR, ANEU #### [address] [address] aPTT Coag (Bld) [Time] 54.0 s High 25.0-35.0 [facility] Comment on above: Result Comment: For Heparin anticoagulation therapy, the recommended therapeutic range is: 54-77 seconds (APTT Correlation with Anti-Xa therapeutic range of 0.3-0.7 units/ml). PLEASE REFERENCE THE PHARMACY PROTOCOL FOR DOSING. Performed By: #### C BC, BMP, ADIFF, GFR, ANEU #### [address] [address] aPTT Coag (Bld) [Time] 46.3 s High 25.0-35.0 [facility] Comment on above: Result Comment: For Heparin anticoagulation therapy, the recommended therapeutic range is: 54-77 seconds (APTT Correlation with Anti-Xa therapeutic range of 0.3-0.7 units/ml). PLEASE REFERENCE THE PHARMACY PROTOCOL FOR DOSING. Performed By: #### C BC, BMP, ADIFF, GFR, ANEU #### [address] [address] [facility] 10-27-2024 BUN/Creatinine Ratio 16.0 ratio Normal 10.0-22.0 [facility] Comment on above: Performed By: #### C BC, BMP, ADIFF, GFR, ANEU #### [address] [address] Calcium [Mass/Vol] 8.9 mg/dL Normal 8.7-10.4 [facility] Comment on above: Performed By: #### C BC, BMP, ADIFF, GFR, ANEU #### [address] [address] Chloride [Moles/Vol] 103 mmol/L Normal 98-110 [facility] Comment on above: Performed By: #### C BC, BMP, ADIFF, GFR, ANEU #### [address] [address] CO2 [Moles/Vol] 31 mmol/L Normal 22-32 [facility] MAIN Comment on above: Performed By: #### C BC, BMP, ADIFF, GFR, ANEU #### [address] [address] Creatinine [Mass/Vol] 0.94 mg/dL Normal 0.60-1.40 [facility] MAIN Comment on above: Result Comment: Test ing performed on TrendKite analyzer using enzymatic creatinine methodology. Performed By: #### C BC, BMP, ADIFF, GFR, ANEU #### [address] [address] Electrolyte Balance 5.0 mEq/L Normal 4.0-15.0 [facility] MAIN Comment on above: Performed By: #### C BC, BMP, ADIFF, GFR, ANEU #### [place] [id number] Glucose [Mass/Vol] 113 mg/dL Normal 82-115 [facility] MAIN Comment on above: Performed By: #### C BC, BMP, ADIFF, GFR, ANEU #### [place] [address] Potassium [Moles/Vol] 3.9 mmol/L Normal 3.5-5.0 [facility] MAIN Comment on above: Performed By: #### C BC, BMP, ADIFF, GFR, ANEU #### [place] [id number] Sodium [Moles/Vol] 139 mmol/L Normal 136-145 [facility] MAIN Comment on above: Performed By: #### C BC, BMP, ADIFF, GFR, ANEU #### [address] [address] Urea nitrogen [Mass/Vol] 15.0 mg/dL Normal 8.0-22.0 [facility] MAIN Comment on above: Performed By: #### C BC, BMP, ADIFF, GFR, ANEU #### [address] [address] CBCon 10-27-2024 Erythrocyte distribution width (RBC) [Ratio] 14.3 % Normal 11.5-15.5 [facility] MAIN Comment on above: Performed By: #### C BC, BMP, ADIFF, GFR, ANEU #### [address] [address] Hematocrit (Bld) [Volume fraction] 31.8 % Low 40.0-52.0 [facility] MAIN Comment on above: Performed By: #### C BC, BMP, ADIFF, GFR, ANEU #### [place] [address] Hgb 10.8 G/dL Low 13.0-17.5 [facility] MAIN Comment on above: Performed By: #### C BC, BMP, ADIFF, GFR, ANEU #### [place] [address] MCH (RBC) [Entitic mass] 29.9 pg Normal 27.0-33.0 [facility] MAIN Comment on above: Performed By: #### C BC, BMP, ADIFF, GFR, ANEU #### [place] [address] MCHC 33.9 G/dL Normal 32.0-36.0 [facility] MAIN Comment on above: Performed By: #### C BC, BMP, ADIFF, GFR, ANEU #### [place] [address] MCV (RBC) [Entitic vol] 88.0 fL Normal 81.0-100.0 [facility] MAIN Comment on above: Performed By: #### C BC, BMP, ADIFF, GFR, ANEU #### [place] [address] Platelet 219 10 3/mcL Normal 150-450 [facility] MAIN Comment on above: Performed By: #### C BC, BMP, ADIFF, GFR, ANEU #### [place] [address] Platelet mean volume (Bld) [Entitic vol] 7.7 fL Normal 6.4-10.5 [facility] MAIN Comment on above: Performed By: #### C BC, BMP, ADIFF, GFR, ANEU #### [place] [address] RBC 3.61 10 6/mcL Low 4.50-6.00 [facility] MAIN Comment on above: Performed By: #### C BC, BMP, ADIFF, GFR, ANEU #### [place] [id number] WBC 7.7 10 3/mcL Normal 4.5-10.8 [facility] MAIN Comment on above: Performed By: #### C BC, BMP, ADIFF, GFR, ANEU #### [place] [id number] [place] [address] LABORATORYOrdered By: SYSTEM SYSTEM on 10-27-2024 aPTT Coag (Bld) [Time] 27.8 s Normal 25.0 - 35.0 seconds [employer] SS Comment on above: Interpretive Data: F or Heparin anticoagulation therapy, the recommended therapeutic range is: 54-77 seconds (APTT Correlation with Anti-Xa therapeutic range of 0.3-0.7 units/ml). PLEASE REFERENCE THE PHARMACY PROTOCOL FOR DOSING. aPTT Coag (Bld) [Time] 54.0 s High 25.0 - 35.0 seconds [employer] SS Comment on above: Interpretive Data: F or Heparin anticoagulation therapy, the recommended therapeutic range is: 54-77 seconds (APTT Correlation with Anti-Xa therapeutic range of 0.3-0.7 units/ml). PLEASE REFERENCE THE PHARMACY PROTOCOL FOR DOSING. aPTT Coag (Bld) [Time] 46.3 s High 25.0 - 35.0 seconds [employer] SS Comment on above: Interpretive Data: F or Heparin anticoagulation therapy, the recommended therapeutic range is: 54-77 seconds (APTT Correlation with Anti-Xa therapeutic range of 0.3-0.7 units/ml). PLEASE REFERENCE THE PHARMACY PROTOCOL FOR DOSING. Basophils (Bld) [#/Vol] 0.1 103/mcL Normal 0.0 - 0.3 10^3/mcL Workflow SS Basophils/100 WBC (Bld) 1.1 % Normal 0.0 - 2.5 % Workflow SS Calcium [Mass/Vol] 8.9 mg/dL Normal 8.7 - 10. 4 mg/dL AH ADM SS Chloride [Moles/Vol] 103 mmol/L Normal 98 - 11 0 mEq/L AH ADM SS CO2 [Moles/Vol] 31 mmol/L Normal 22 - 32 mEq/L AH ADM SS Creatinine [Mass/Vol] 0.94 mg/dL Normal 0.60 - 1.40 mg/dL AH ADM SS Comment on above: Interpretive Data: T esting performed on TrendKite analyzer using enzymatic creatinine methodology. Electrolyte Balance 5.0 mEq/L Normal 4.0 - 15 .0 mEq/L AH ADM SS Eosinophils (Bld) [#/Vol] 0.3 103/mcL Normal 0.0 - 0.7 10^3/mcL Workflow SS Eosinophils/100 WBC (Bld) 3.8 % Normal 0.0 - 6.0 % Workflow SS Erythrocyte distribution width (RBC) [Ratio] 14.3 % Normal 11.5 - 15.5 % Workflow SS GFR/1.73 sq M.predicted among blacks MDRD (S/P/Bld) [Vol rate/Area] ml/min/1.73sqm Invalid Interpretation Code [employer] Chemistry S Comment on above: Interpretive Data: GFR Population mean for , Non- Americans Ages 20-29 = 116 mL/min/1.73 sq.m. Ages 30-39 = 107 mL/min/1.73 sq.m. Ages 40-49 = 99 mL/min/1.73 sq.m. Ages 50-59 = 93 mL/min/1.73 sq.m. Ages 60-69 = 85 mL/min/1.73 sq.m. Ages 70+ = 75 mL/min/1.73 sq.m. Chronic Kidney Disease: Less than 60 mL/min/1.73 square meters End Stage Renal Disease: Less than 15 mL/min/1.73 square meters GFR/1.73 sq M.predicted among non-blacks MDRD (S/P/Bld) [Vol rate/Area] ml/min/1.73sqm Invalid Interpretation Code [employer] Chemistry S Comment on above: Interpretive Data: GFR Population mean for , Non- Americans Ages 20-29 = 116 mL/min/1.73 sq.m. Ages 30-39 = 107 mL/min/1.73 sq.m. Ages 40-49 = 99 mL/min/1.73 sq.m. Ages 50-59 = 93 mL/min/1.73 sq.m. Ages 60-69 = 85 mL/min/1.73 sq.m. Ages 70+ = 75 mL/min/1.73 sq.m. Chronic Kidney Disease: Less than 60 mL/min/1.73 square meters End Stage Renal Disease: Less than 15 mL/min/1.73 square meters Glucose [Mass/Vol] 113 mg/dL Normal 82 - 115 mg/dL AH ADM SS Hematocrit (Bld) [Volume fraction] 31.8 % Low 40.0 - 52.0 % AH Workflow SS Lymphocytes (Bld) [#/Vol] 1.3 103/mcL Normal 0.9 - 4.3 10^3/mcL AH Workflow SS Lymphocytes/100 WBC (Bld) 17.4 % Low 20.0 - 40.0 % AH Workflow SS Magnesium [Mass/Vol] 2.2 mg/dL Normal 1.6 - 2 .4 mg/dL AH ADM SS MCH (RBC) [Entitic mass] 29.9 pg Normal 27.0 - 33.0 pg AH Workflow SS MCHC 33.9 G/dL Normal 32.0 - 36.0 G/dL AH Workflow SS MCV (RBC) [Entitic vol] 88.0 fL Normal 81.0 - 100.0 fL AH Workflow SS Monocytes (Bld) [#/Vol] 0.8 103/mcL Normal 0.1 - 1.4 10^3/mcL AH Workflow SS Monocytes/100 WBC (Bld) 10.0 % Normal 2.0 - 13.0 % AH Workflow SS Neutrophils (Bld) [#/Vol] 5.2 103/mcL Normal 2.3 - 8.1 10^3/mcL AH Workflow SS Neutrophils/100 WBC (Bld) 67.7 % Normal 50.0 - 75.0 % AH Workflow SS Platelet mean volume (Bld) [Entitic vol] 7.7 fL Normal 6.4 - 10.5 fL AH Workflow SS Platelets (Bld) [#/Vol] 219 103/mcL Normal 150 - 450 10^3/mcL AH Workflow SS Potassium [Moles/Vol] 3.9 mmol/L Normal 3.5 - 5.0 mEq/L AH ADM SS RBC (Bld) [#/Vol] 3.61 106/mcL Low 4.50 - 6.00 10^6/mcL AH Workflow SS Sodium [Moles/Vol] 139 mmol/L Normal 136 - 145 mEq/L AH ADM SS Urea nitrogen [Mass/Vol] 15.0 mg/dL Normal 8.0 - 22.0 mg/dL ADM SS Urea nitrogen/Creatinine [Mass ratio] 16.0 ratio Normal 10.0 - 22.0 ratio ADM SS WBC (Bld) [#/Vol] 7.7 103/mcL Normal 4.5 - 10.8 10^3/mcL AH Workflow SS MGon 10-27-2024 Magnesium [Mass/Vol] 2.2 mg/dL Normal 1.6-2.4 [facility] MAIN Comment on above: Performed By: #### C BC, BMP, ADIFF, GFR, ANEU #### [address] [address] XR CHEST 1 VIEWon 10-27-2024 XR CHEST 1 VIEW ORIGINAL EXAMINATION: ONE XRAY VIEW OF THE CHEST 10/27/2024 7:11 am COMPARISON: Chest x-ray on 10/25/2024 HISTORY: ORDERING SYSTEM PROVIDED HISTORY: Reason for Exam: pleural effusion FINDINGS: Pleural pigtail drain is unchanged at the left lung base. There is no pneumothorax. Small bilateral pleural effusions are unchanged. Widespread bilateral lung infiltrates are predominantly interstitial and appear unchanged. Heart size is normal. IMPRESSION: 1. Stable bilateral lung infiltrates and small bilateral pleural effusions. 2. No pneumothorax. Interpreted by: Manuel Bueno MD Preliminary Report By: Manuel Bueno MD Electronically signed By Manuel Bueno MD Dictated Date: 10/27/2024 7:40:19 AM Prelim Date: 10/27/2024 7:43:03 AM Sign Date: 10/27/2024 7:43:03 AM Ordering Provider: KARISSA Levine [facility] MAIN .Auto Diffon 10-26-2024 Basophil, Absolute 0.1 10 3/mcL Normal 0.0-0.3 [facility] MAIN Comment on above: Performed By: #### C BC, BMP, ADIFF, GFR, ANEU #### [address] [address] Basophils/100 WBC (Bld) 0.8 % Normal 0.0-2.5 [facility] MAIN Comment on above: Performed By: #### C BC, BMP, ADIFF, GFR, ANEU #### [address] [address] Eosinophil, Absolute 0.3 10 3/mcL Normal 0.0-0.7 [facility] MAIN Comment on above: Performed By: #### C BC, BMP, ADIFF, GFR, ANEU #### [address] [address] Eosinophils/100 WBC (Bld) 2.6 % Normal 0.0-6.0 [facility] MAIN Comment on above: Performed By: #### C BC, BMP, ADIFF, GFR, ANEU #### [address] [address] Lymphocyte, Absolute 1.1 10 3/mcL Normal 0.9-4.3 [facility] MA[facility] Comment on above: Performed By: #### C BC, BMP, ADIFF, GFR, ANEU #### [address] [address] Lymphocytes/100 WBC (Bld) 10.7 % Low 20.0-40.0 [facility] MAIN Comment on above: Performed By: #### C BC, BMP, ADIFF, GFR, ANEU #### [address] [address] Monocyte, Absolute 0.9 10 3/mcL Normal 0.1-1.4 [facility] MAIN Comment on above: Performed By: #### C BC, BMP, ADIFF, GFR, ANEU #### [address] [address] Monocytes/100 WBC (Bld) 8.6 % Normal 2.0-13.0 [facility] MAIN Comment on above: Performed By: #### C BC, BMP, ADIFF, GFR, ANEU #### [address] [address] Neutrophils/100 WBC (Bld) 77.3 % High 50.0-75.0 [facility] MAIN Comment on above: Performed By: #### C BC, BMP, ADIFF, GFR, ANEU #### [address] [address] Basophil, Absolute 0.1 10 3/mcL Normal 0.0-0.3 [facility] MAIN Comment on above: Performed By: #### C BC, ANEU, BMP, GFR, ADIFF, MG #### [address] [address] Basophils/100 WBC (Bld) 0.7 % Normal 0.0-2.5 [facility] MAIN Comment on above: Performed By: #### C BC, ANEU, BMP, GFR, ADIFF, MG #### [address] [address] Eosinophil, Absolute 0.2 10 3/mcL Normal 0.0-0.7 [facility] MA[facility] Comment on above: Performed By: #### C BC, ANEU, BMP, GFR, ADIFF, MG #### [address] [address] Eosinophils/100 WBC (Bld) 2.4 % Normal 0.0-6.0 [facility] MAIN Comment on above: Performed By: #### C BC, ANEU, BMP, GFR, ADIFF, MG #### [address] [address] Lymphocyte, Absolute 1.0 10 3/mcL Normal 0.9-4.3 [facility] Comment on above: Performed By: #### C BC, ANEU, BMP, GFR, ADIFF, MG #### [address] [address] Lymphocytes/100 WBC (Bld) 11.6 % Low 20.0-40.0 [facility] MAIN Comment on above: Performed By: #### C BC, ANEU, BMP, GFR, ADIFF, MG #### [address] [address] Monocyte, Absolute 0.7 10 3/mcL Normal 0.1-1.4 [facility] MAIN Comment on above: Performed By: #### C BC, ANEU, BMP, GFR, ADIFF, MG #### [address] [address] Monocytes/100 WBC (Bld) 8.3 % Normal 2.0-13.0 [facility] MAIN Comment on above: Performed By: #### C BC, ANEU, BMP, GFR, ADIFF, MG #### [address] [address] Neutrophils/100 WBC (Bld) 77.0 % High 50.0-75.0 [facility] MAIN Comment on above: Performed By: #### C BC, ANEU, BMP, GFR, ADIFF, MG #### [address] [address] .GFRon 12-14-2024 GFR >60 Normal [facility] MAIN Comment on above: Result Comment: GFR Population mean for , Non- Americans Ages 20-29 = 116 mL/min/1.73 sq.m. Ages 30-39 = 107 mL/min/1.73 sq.m. Ages 40-49 = 99 mL/min/1.73 sq.m. Ages 50-59 = 93 mL/min/1.73 sq.m. Ages 60-69 = 85 mL/min/1.73 sq.m. Ages 70+ = 75 mL/min/1.73 sq.m. Chronic Kidney Disease: Less than 60 mL/min/1.73 square meters End Stage Renal Disease: Less than 15 mL/min/1.73 square meters Performed By: #### C BC, ANEU, BMP, GFR, ADIFF, MG ####[place] [address] GFR Non- >60 Normal [facility] MAIN Comment on above: Result Comment: GFR Population mean for , Non- Americans Ages 20-29 = 116 mL/min/1.73 sq.m. Ages 30-39 = 107 mL/min/1.73 sq.m. Ages 40-49 = 99 mL/min/1.73 sq.m. Ages 50-59 = 93 mL/min/1.73 sq.m. Ages 60-69 = 85 mL/min/1.73 sq.m. Ages 70+ = 75 mL/min/1.73 sq.m. Chronic Kidney Disease: Less than 60 mL/min/1.73 square meters End Stage Renal Disease: Less than 15 mL/min/1.73 square meters Performed By: #### C BC, ANEU, BMP, GFR, ADIFF, MG ####[place] [id number] [place] [address] .NEUABSon 10-26-2024 Neutrophil, Absolute 7.7 10 3/mcL Normal 2.3-8.1 [facility] Comment on above: Performed By: #### C BC, BMP, ADIFF, GFR, ANEU #### [place] [address] Neutrophil, Absolute 6.3 10 3/mcL Normal 2.3-8.1 [facility] Comment on above: Performed By: #### C BC, ANEU, BMP, GFR, ADIFF, MG #### [address] [address] APTTon 10-26-2024 aPTT Coag (Bld) [Time] 50.6 s High 25.0-35.0 [facility] Comment on above: Result Comment: For Heparin anticoagulation therapy, the recommended therapeutic range is: 54-77 seconds (APTT Correlation with Anti-Xa therapeutic range of 0.3-0.7 units/ml). PLEASE REFERENCE THE PHARMACY PROTOCOL FOR DOSING. Performed By: #### C BC, BMP, ADIFF, GFR, ANEU #### [address] [address] aPTT Coag (Bld) [Time] 29.5 s Normal 25.0-35.0 [facility] Comment on above: Result Comment: For Heparin anticoagulation therapy, the recommended therapeutic range is: 54-77 seconds (APTT Correlation with Anti-Xa therapeutic range of 0.3-0.7 units/ml). PLEASE REFERENCE THE PHARMACY PROTOCOL FOR DOSING. Performed By: #### C BC, BMP, ADIFF, GFR, ANEU #### [address] [address] BMP 10-26-2024 BUN/Creatinine Ratio 16.7 ratio Normal 10.0-22.0 [facility] MAIN Comment on above: Performed By: #### C BC, ANEU, BMP, GFR, ADIFF, MG ####[address] [address] Calcium [Mass/Vol] 9.0 mg/dL Normal 8.7-10.4 [facility] MAIN Comment on above: Performed By: #### C BC, ANEU, BMP, GFR, ADIFF, MG ####[address] [address] Chloride [Moles/Vol] 100 mmol/L Normal 98-110 [facility] MAIN Comment on above: Performed By: #### C BC, ANEU, BMP, GFR, ADIFF, MG ####[address] [address] CO2 [Moles/Vol] 29 mmol/L Normal 22-32 [facility] MAIN Comment on above: Performed By: #### C BC, ANEU, BMP, GFR, ADIFF, MG ####[address] [address] Creatinine [Mass/Vol] 0.96 mg/dL Normal 0.60-1.40 [facility] MAIN Comment on above: Result Comment: Test ing performed on [employer]rend[employer] analyzer using enzymatic creatinine methodology. Performed By: #### C BC, ANEU, BMP, GFR, ADIFF, MG ####[address] [address] Electrolyte Balance 6.0 mEq/L Normal 4.0-15.0 [facility] MAIN Comment on above: Performed By: #### C BC, ANEU, BMP, GFR, ADIFF, MG ####[place] [address] Glucose [Mass/Vol] 172 mg/dL High 82-115 [facility] MAIN Comment on above: Performed By: #### C BC, ANEU, BMP, GFR, ADIFF, MG ####[place] [address] Potassium [Moles/Vol] 4.0 mmol/L Normal 3.5-5.0 [facility] MA[facility] Comment on above: Performed By: #### C BC, ANEU, BMP, GFR, ADIFF, MG ####[place] [address] Sodium [Moles/Vol] 135 mmol/L Low 136-145 [facility] Comment on above: Performed By: #### C BC, ANEU, BMP, GFR, ADIFF, MG ####[address] [address] Urea nitrogen [Mass/Vol] 16.0 mg/dL Normal 8.0-22.0 [facility] MAIN Comment on above: Performed By: #### C BC, ANEU, BMP, GFR, ADIFF, MG ####[address] [address] CBCon 10-26-2024 Erythrocyte distribution width (RBC) [Ratio] 14.6 % Normal 11.5-15.5 [facility] MAIN Comment on above: Performed By: #### C BC, BMP, ADIFF, GFR, ANEU #### [place] [address] Hematocrit (Bld) [Volume fraction] 36.0 % Low 40.0-52.0 [facility] MAIN Comment on above: Performed By: #### C BC, BMP, ADIFF, GFR, ANEU #### [place] [address] Hgb 12.0 G/dL Low 13.0-17.5 [facility] MAIN Comment on above: Performed By: #### C BC, BMP, ADIFF, GFR, ANEU #### [place] [address] MCH (RBC) [Entitic mass] 29.5 pg Normal 27.0-33.0 [facility] MAIN Comment on above: Performed By: #### C BC, BMP, ADIFF, GFR, ANEU #### [place] [address] MCHC 33.4 G/dL Normal 32.0-36.0 [facility] MAIN Comment on above: Performed By: #### C BC, BMP, ADIFF, GFR, ANEU #### [place] [address] MCV (RBC) [Entitic vol] 88.4 fL Normal 81.0-100.0 [facility] MAIN Comment on above: Performed By: #### C BC, BMP, ADIFF, GFR, ANEU #### [place] [address] Platelet 235 10 3/mcL Normal 150-450 [facility] MAIN Comment on above: Performed By: #### C BC, BMP, ADIFF, GFR, ANEU #### [place] [address] Platelet mean volume (Bld) [Entitic vol] 7.8 fL Normal 6.4-10.5 [facility] MAIN Comment on above: Performed By: #### C BC, BMP, ADIFF, GFR, ANEU #### [place] [address] RBC 4.08 10 6/mcL Low 4.50-6.00 [facility] MAIN Comment on above: Performed By: #### C BC, BMP, ADIFF, GFR, ANEU #### [place] [address] WBC 10.0 10 3/mcL Normal 4.5-10.8 [facility] MAIN Comment on above: Performed By: #### C BC, BMP, ADIFF, GFR, ANEU #### [place] [address] Erythrocyte distribution width (RBC) [Ratio] 14.6 % Normal 11.5-15.5 [facility] MAIN Comment on above: Performed By: #### C BC, ANEU, BMP, GFR, ADIFF, MG #### [place] [address] Hematocrit (Bld) [Volume fraction] 34.1 % Low 40.0-52.0 [facility] MAIN Comment on above: Performed By: #### C BC, ANEU, BMP, GFR, ADIFF, MG #### [place] [address] Hgb 11.5 G/dL Low 13.0-17.5 [facility] MAIN Comment on above: Performed By: #### C BC, ANEU, BMP, GFR, ADIFF, MG #### [place] [address] MCH (RBC) [Entitic mass] 29.8 pg Normal 27.0-33.0 [facility] MAIN Comment on above: Performed By: #### C BC, ANEU, BMP, GFR, ADIFF, MG #### [place] [address] MCHC 33.6 G/dL Normal 32.0-36.0 [facility] MAIN Comment on above: Performed By: #### C BC, ANEU, BMP, GFR, ADIFF, MG #### [place] [address] MCV (RBC) [Entitic vol] 88.5 fL Normal 81.0-100.0 [facility] MAIN Comment on above: Performed By: #### C BC, ANEU, BMP, GFR, ADIFF, MG #### [facility] [address] [place] [address] Platelet 211 10 3/mcL Normal 150-450 [facility] MAIN Comment on above: Performed By: #### C BC, ANEU, BMP, GFR, ADIFF, MG #### [facility] [address] [place] [address] Platelet mean volume (Bld) [Entitic vol] 8.2 fL Normal 6.4-10.5 [facility] MAIN Comment on above: Performed By: #### C BC, ANEU, BMP, GFR, ADIFF, MG #### [facility] [address] [place] [address] RBC 3.85 10 6/mcL Low 4.50-6.00 [facility] MAIN Comment on above: Performed By: #### C BC, ANEU, BMP, GFR, ADIFF, MG #### [facility] [address] [place] [address] WBC 8.2 10 3/mcL Normal 4.5-10.8 [facility] MA[facility] Comment on above: Performed By: #### C BC, ANEU, BMP, GFR, ADIFF, MG #### [facility] [address] [place] [address] LABORATORYOrdered By: SYSTEM SYSTEM on 10-26-2024 PT Coag (PPP) [Time] 13.9 s Normal 9.0 - 1 4.4 seconds [facility] Comment on above: Interpretive Data: E ffective 05/27/08, Protime results may be affected by some antibiotics (i.e. Ciprofloxacin, Azithromycin, Bactrim) which may potentiate the action of oral anticoagulants, with further increases in Protime/INR. PT International Ratio 1.2 ratio Invalid Interpretation Code [facility] Comment on above: Interpretive Data: [employer] (CHEST, 1992, 102:[id number]) recommended therapeutic range for oral anticoagulant therapy is: LOW RISK: Prophylaxis of venous thrombosis INR: 2.0-3.0 Treatment of pulmonary embolism 2.0-3.0 Prevention of systemic embolism 2.0-3.0 HIGH RISK: Mechanical prosthetic valves 2.5-3.5 Magnesium [Mass/Vol] 2.1 mg/dL Normal 1.6 - 2 .4 mg/dL AH ADM SS MGon 10-26-2024 Magnesium [Mass/Vol] 2.1 mg/dL Normal 1.6-2.4 [facility] Comment on above: Performed By: #### C BC, ANEU, BMP, GFR, ADIFF, MG ####[facility] [place] [id number] PROon 10-26-2024 INR Coag (PPP) [Relative time] 1.2 {INR} Normal [facility] MAIN Comment on above: Result Comment: [employer] (CHEST, 1992, [id number]) recommended therapeutic range for oral anticoagulant therapy is: LOW RISK: Prophylaxis of venous thrombosis INR: 2.0-3.0 Treatment of pulmonary embolism 2.0-3.0 Prevention of systemic embolism 2.0-3.0 HIGH RISK: Mechanical prosthetic valves 2.5-3.5 Performed By: #### C BC, BMP, ADIFF, GFR, ANEU #### [facility] [address] [place] [address] PT Coag (PPP) [Time] 13.9 s Normal 9.0-14.4 [facility] Comment on above: Result Comment: Effe ctive 05/27/08, Protime results may be affected by some antibiotics (i.e. Ciprofloxacin, Azithromycin, Bactrim) which may potentiate the action of oral anticoagulants, with further increases in Protime/INR. Performed By: #### C BC, BMP, ADIFF, GFR, ANEU #### [place] [address] .Auto Diffon 10-25-2024 Basophil, Absolute 0.1 10 3/mcL Normal 0.0-0.3 [facility] Comment on above: Performed By: #### C BC, ANEU, BMP, GFR, ADIFF, MG #### [place] [id number] [place], [place] [id number] Basophils/100 WBC (Bld) 0.7 % Normal 0.0-2.5 [facility] Comment on above: Performed By: #### C BC, ANEU, BMP, GFR, ADIFF, MG #### [address] [address] Eosinophil, Absolute 0.3 10 3/mcL Normal 0.0-0.7 [facility] Comment on above: Performed By: #### C BC, ANEU, BMP, GFR, ADIFF, MG #### [address] [address] Eosinophils/100 WBC (Bld) 3.2 % Normal 0.0-6.0 [facility] Comment on above: Performed By: #### C BC, ANEU, BMP, GFR, ADIFF, MG #### [address] [address] Lymphocyte, Absolute 1.0 10 3/mcL Normal 0.9-4.3 [facility] Comment on above: Performed By: #### C BC, ANEU, BMP, GFR, ADIFF, MG #### [address] [address] Lymphocytes/100 WBC (Bld) 10.7 % Low 20.0-40.0 [facility] Comment on above: Performed By: #### C BC, ANEU, BMP, GFR, ADIFF, MG #### [address] [address] Monocyte, Absolute 0.8 10 3/mcL Normal 0.1-1.4 [facility] MAIN Comment on above: Performed By: #### C BC, ANEU, BMP, GFR, ADIFF, MG #### [address] [address] Monocytes/100 WBC (Bld) 8.7 % Normal 2.0-13.0 [facility] Comment on above: Performed By: #### C BC, ANEU, BMP, GFR, ADIFF, MG #### [address] [address] Neutrophils/100 WBC (Bld) 76.7 % High 50.0-75.0 [facility] [facility] Comment on above: Performed By: #### C BC, ANEU, BMP, GFR, ADIFF, MG #### [address] [address] .GFRon 10-25-2024 GFR >60 Normal [facility] MAIN Comment on above: Result Comment: GFR Population mean for , Non- Americans Ages 20-29 = 116 mL/min/1.73 sq.m. Ages 30-39 = 107 mL/min/1.73 sq.m. Ages 40-49 = 99 mL/min/1.73 sq.m. Ages 50-59 = 93 mL/min/1.73 sq.m. Ages 60-69 = 85 mL/min/1.73 sq.m. Ages 70+ = 75 mL/min/1.73 sq.m. Chronic Kidney Disease: Less than 60 mL/min/1.73 square meters End Stage Renal Disease: Less than 15 mL/min/1.73 square meters Performed By: #### C BC, ANEU, BMP, GFR, ADIFF, MG #### [address] [address] GFR Non- >60 Normal [facility] MAIN Comment on above: Result Comment: GFR Population mean for , Non- Americans Ages 20-29 = 116 mL/min/1.73 sq.m. Ages 30-39 = 107 mL/min/1.73 sq.m. Ages 40-49 = 99 mL/min/1.73 sq.m. Ages 50-59 = 93 mL/min/1.73 sq.m. Ages 60-69 = 85 mL/min/1.73 sq.m. Ages 70+ = 75 mL/min/1.73 sq.m. Chronic Kidney Disease: Less than 60 mL/min/1.73 square meters End Stage Renal Disease: Less than 15 mL/min/1.73 square meters Performed By: #### C BC, ANEU, BMP, GFR, ADIFF, MG #### [address] [address] .NEUABSon 10-25-2024 Neutrophil, Absolute 7.2 10 3/mcL Normal 2.3-8.1 [facility] Comment on above: Performed By: #### C BC, ANEU, BMP, GFR, ADIFF, MG #### [address] [address] BMPon 10-25-2024 BUN/Creatinine Ratio 17.2 ratio Normal 10.0-22.0 [facility] MAIN Comment on above: Performed By: #### C BC, ANEU, BMP, GFR, ADIFF, MG #### [address] [address] Calcium [Mass/Vol] 8.9 mg/dL Normal 8.7-10.4 [facility] Comment on above: Performed By: #### C BC, ANEU, BMP, GFR, ADIFF, MG #### [address] [address] Chloride [Moles/Vol] 100 mmol/L Normal 98-110 [facility] MAIN Comment on above: Performed By: #### C BC, ANEU, BMP, GFR, ADIFF, MG #### [address] [address] CO2 [Moles/Vol] 30 mmol/L Normal 22-32 [facility] MAIN Comment on above: Performed By: #### C BC, ANEU, BMP, GFR, ADIFF, MG #### [address] [address] Creatinine [Mass/Vol] 0.99 mg/dL Normal 0.60-1.40 [facility] MAIN Comment on above: Result Comment: Test ing performed on TrendKite analyzer using enzymatic creatinine methodology. Performed By: #### C BC, ANEU, BMP, GFR, ADIFF, MG #### [address] [address] Electrolyte Balance 7.0 mEq/L Normal 4.0-15.0 [facility] MAIN Comment on above: Performed By: #### C BC, ANEU, BMP, GFR, ADIFF, MG #### [address] [address] Glucose [Mass/Vol] 117 mg/dL High 82-115 [facility] MAIN Comment on above: Performed By: #### C BC, ANEU, BMP, GFR, ADIFF, MG #### [address] [address] Potassium [Moles/Vol] 3.8 mmol/L Normal 3.5-5.0 [facility] MAIN Comment on above: Performed By: #### C BC, ANEU, BMP, GFR, ADIFF, MG #### [place] [address] Sodium [Moles/Vol] 137 mmol/L Normal 136-145 [facility] MAIN Comment on above: Performed By: #### C BC, ANEU, BMP, GFR, ADIFF, MG #### [place] [address] Urea nitrogen [Mass/Vol] 17.0 mg/dL Normal 8.0-22.0 [facility] MAIN Comment on above: Performed By: #### C BC, ANEU, BMP, GFR, ADIFF, MG #### [place] [address] CBCon 10-25-2024 Erythrocyte distribution width (RBC) [Ratio] 14.3 % Normal 11.5-15.5 [facility] MAIN Comment on above: Performed By: #### C BC, ANEU, BMP, GFR, ADIFF, MG #### [place] [address] Hematocrit (Bld) [Volume fraction] 33.8 % Low 40.0-52.0 [facility] MAIN Comment on above: Performed By: #### C BC, ANEU, BMP, GFR, ADIFF, MG #### [place] [address] Hgb 11.5 G/dL Low 13.0-17.5 [facility] MAIN Comment on above: Performed By: #### C BC, ANEU, BMP, GFR, ADIFF, MG #### [place] [address] MCH (RBC) [Entitic mass] 30.2 pg Normal 27.0-33.0 [facility] MAIN Comment on above: Performed By: #### C BC, ANEU, BMP, GFR, ADIFF, MG #### [place] [address] MCHC 34.1 G/dL Normal 32.0-36.0 [facility] MAIN Comment on above: Performed By: #### C BC, ANEU, BMP, GFR, ADIFF, MG #### [place] [address] MCV (RBC) [Entitic vol] 88.5 fL Normal 81.0-100.0 [facility] MAIN Comment on above: Performed By: #### C BC, ANEU, BMP, GFR, ADIFF, MG #### [place] [address] Platelet 199 10 3/mcL Normal 150-450 [facility] MAIN Comment on above: Performed By: #### C BC, ANEU, BMP, GFR, ADIFF, MG #### [place] [address] Platelet mean volume (Bld) [Entitic vol] 8.1 fL Normal 6.4-10.5 [facility] MAIN Comment on above: Performed By: #### C BC, ANEU, BMP, GFR, ADIFF, MG #### [place] [address] RBC 3.82 10 6/mcL Low 4.50-6.00 [facility] MAIN Comment on above: Performed By: #### C BC, ANEU, BMP, GFR, ADIFF, MG #### [place] [address] WBC 9.5 10 3/mcL Normal 4.5-10.8 [facility] MAIN Comment on above: Performed By: #### C BC, ANEU, BMP, GFR, ADIFF, MG #### [place] [address] MGon 10-25-2024 Magnesium [Mass/Vol] 2.2 mg/dL Normal 1.6-2.4 [facility] MAIN Comment on above: Performed By: #### C BC, ANEU, BMP, GFR, ADIFF, MG #### [place] [address] XR CHEST 1 VIEWon 10-25-2024 XR CHEST 1 VIEW ORIGINAL EXAMINATION: ONE XRAY VIEW OF THE CHEST 10/25/2024 6:48 am COMPARISON: 10/22/2024 HISTORY: ORDERING SYSTEM PROVIDED HISTORY: Reason for Exam: pleural effusion FINDINGS: Stable left pigtail catheter. Stable cardiomediastinal silhouette. Likely continued trace left pleural effusion and small right pleural effusion with associated airspace disease. No pneumothorax. Continued interstitial prominence. Status post sternotomy and degenerative changes of the spine. IMPRESSION: Continued trace left and small right pleural effusions with associated airspace disease. Stable left basilar pigtail catheter. I have personally reviewed the images of this examination, and agree with the resident's findings and interpretation. Interpreted by: Manuel Bueno MD Preliminary Report By: Jhonny Fair Electronically signed By Manuel Bueno MD Dictated Date: 10/25/2024 7:04:38 AM Prelim Date: 10/25/2024 7:08:29 AM Sign Date: 10/25/2024 7:16:46 AM Ordering Provider: SHELLIE Levine [facility] MAIN .Auto Diffon 10-24-2024 Basophil, Absolute 0.1 10 3/mcL Normal 0.0-0.3 [facility] MAIN Comment on above: Performed By: #### C BC, BMP, ADIFF, GFR, ANEU #### [address] [address] Basophils/100 WBC (Bld) 0.9 % Normal 0.0-2.5 [facility] MAIN Comment on above: Performed By: #### C BC, BMP, ADIFF, GFR, ANEU #### [address] [address] Eosinophil, Absolute 0.3 10 3/mcL Normal 0.0-0.7 [facility] Comment on above: Performed By: #### C BC, BMP, ADIFF, GFR, ANEU #### [address] [address] Eosinophils/100 WBC (Bld) 3.7 % Normal 0.0-6.0 [facility] MAIN Comment on above: Performed By: #### C BC, BMP, ADIFF, GFR, ANEU #### [address] [address] Lymphocyte, Absolute 1.2 10 3/mcL Normal 0.9-4.3 [facility] Comment on above: Performed By: #### C BC, BMP, ADIFF, GFR, ANEU #### [address] [address] Lymphocytes/100 WBC (Bld) 14.2 % Low 20.0-40.0 [facility] MAIN Comment on above: Performed By: #### C BC, BMP, ADIFF, GFR, ANEU #### [address] [address] Monocyte, Absolute 0.6 10 3/mcL Normal 0.1-1.4 [facility] MAIN Comment on above: Performed By: #### C BC, BMP, ADIFF, GFR, ANEU #### [address] [address] Monocytes/100 WBC (Bld) 7.6 % Normal 2.0-13.0 [facility] MAIN Comment on above: Performed By: #### C BC, BMP, ADIFF, GFR, ANEU #### [address] [address] Neutrophils/100 WBC (Bld) 73.6 % Normal 50.0-75.0 [facility] MAIN Comment on above: Performed By: #### C BC, BMP, ADIFF, GFR, ANEU #### [place] [id number] .GFRon 10-24-2024 GFR >60 Normal [facility] MAIN Comment on above: Result Comment: GFR Population mean for , Non- Americans Ages 20-29 = 116 mL/min/1.73 sq.m. Ages 30-39 = 107 mL/min/1.73 sq.m. Ages 40-49 = 99 mL/min/1.73 sq.m. Ages 50-59 = 93 mL/min/1.73 sq.m. Ages 60-69 = 85 mL/min/1.73 sq.m. Ages 70+ = 75 mL/min/1.73 sq.m. Chronic Kidney Disease: Less than 60 mL/min/1.73 square meters End Stage Renal Disease: Less than 15 mL/min/1.73 square meters Performed By: #### C BC, BMP, ADIFF, GFR, ANEU #### [place] [address] GFR Non- >60 Normal [facility] MAIN Comment on above: Result Comment: GFR Population mean for , Non- Americans Ages 20-29 = 116 mL/min/1.73 sq.m. Ages 30-39 = 107 mL/min/1.73 sq.m. Ages 40-49 = 99 mL/min/1.73 sq.m. Ages 50-59 = 93 mL/min/1.73 sq.m. Ages 60-69 = 85 mL/min/1.73 sq.m. Ages 70+ = 75 mL/min/1.73 sq.m. Chronic Kidney Disease: Less than 60 mL/min/1.73 square meters End Stage Renal Disease: Less than 15 mL/min/1.73 square meters Performed By: #### C BC, BMP, ADIFF, GFR, ANEU #### [address] [address] .NEUABSon 10-24-2024 Neutrophil, Absolute 6.0 10 3/mcL Normal 2.3-8.1 [facility] Comment on above: Performed By: #### C BC, BMP, ADIFF, GFR, ANEU #### [address] [address] BFPRon 10-24-2024 Body Fluid Path Review Negative Normal [facility] MA[facility] Comment on above: Order Comment: Added by Discern Result Comment: Elec tronically signed by: MAXI DIEGO 10.24.2024 12:19 EST Performed By: #### C BC, ANEU, BMP, GFR, ADIFF, MG #### [address] [address] BMPon 10-24-2024 BUN/Creatinine Ratio 17.7 ratio Normal 10.0-22.0 [facility] MAIN Comment on above: Performed By: #### C BC, BMP, ADIFF, GFR, ANEU #### [address] [address] Calcium [Mass/Vol] 8.5 mg/dL Low 8.7-10.4 [facility] MA[facility] Comment on above: Performed By: #### C BC, BMP, ADIFF, GFR, ANEU #### [address] [address] Chloride [Moles/Vol] 102 mmol/L Normal 98-110 [facility] MAIN Comment on above: Performed By: #### C BC, BMP, ADIFF, GFR, ANEU #### [address] [address] CO2 [Moles/Vol] 29 mmol/L Normal 22-32 [facility] MAIN Comment on above: Performed By: #### C BC, BMP, ADIFF, GFR, ANEU #### [address] [address] Creatinine [Mass/Vol] 0.96 mg/dL Normal 0.60-1.40 [facility] MAIN Comment on above: Result Comment: Test ing performed on TrendKite analyzer using enzymatic creatinine methodology. Performed By: #### C BC, BMP, ADIFF, GFR, ANEU #### [place] [id number] Electrolyte Balance 4.0 mEq/L Normal 4.0-15.0 [facility] MAIN Comment on above: Performed By: #### C BC, BMP, ADIFF, GFR, ANEU #### [place] [id number] Glucose [Mass/Vol] 99 mg/dL Normal 82-115 [facility] MAIN Comment on above: Performed By: #### C BC, BMP, ADIFF, GFR, ANEU #### [place] [id number] Potassium [Moles/Vol] 4.0 mmol/L Normal 3.5-5.0 [facility] MAIN Comment on above: Performed By: #### C BC, BMP, ADIFF, GFR, ANEU #### [place] [id number] Sodium [Moles/Vol] 135 mmol/L Low 136-145 [facility] MA[facility] Comment on above: Performed By: #### C BC, BMP, ADIFF, GFR, ANEU #### [place] [id number] Urea nitrogen [Mass/Vol] 17.0 mg/dL Normal 8.0-22.0 [facility] MAIN Comment on above: Performed By: #### C BC, BMP, ADIFF, GFR, ANEU #### [address] [address] CBCon 12-12-2024 Erythrocyte distribution width (RBC) [Ratio] 14.5 % Normal 11.5-15.5 [facility] MAIN Comment on above: Performed By: #### C BC, BMP, ADIFF, GFR, ANEU #### [place] [address] Hematocrit (Bld) [Volume fraction] 32.2 % Low 40.0-52.0 [facility] MAIN Comment on above: Performed By: #### C BC, BMP, ADIFF, GFR, ANEU #### [place] [address] Hgb 10.9 G/dL Low 13.0-17.5 [facility] MAIN Comment on above: Performed By: #### C BC, BMP, ADIFF, GFR, ANEU #### [place] [address] MCH (RBC) [Entitic mass] 30.0 pg Normal 27.0-33.0 [facility] MAIN Comment on above: Performed By: #### C BC, BMP, ADIFF, GFR, ANEU #### [place] [address] MCHC 33.7 G/dL Normal 32.0-36.0 [facility] MAIN Comment on above: Performed By: #### C BC, BMP, ADIFF, GFR, ANEU #### [place] [address] MCV (RBC) [Entitic vol] 89.2 fL Normal 81.0-100.0 [facility] MAIN Comment on above: Performed By: #### C BC, BMP, ADIFF, GFR, ANEU #### [place] [address] Platelet 171 10 3/mcL Normal 150-450 [facility] MAIN Comment on above: Performed By: #### C BC, BMP, ADIFF, GFR, ANEU #### [place] [id number] Platelet mean volume (Bld) [Entitic vol] 8.1 fL Normal 6.4-10.5 [facility] MAIN Comment on above: Performed By: #### C BC, BMP, ADIFF, GFR, ANEU #### [address] [address] RBC 3.62 10 6/mcL Low 4.50-6.00 [facility] MAIN Comment on above: Performed By: #### C BC, BMP, ADIFF, GFR, ANEU #### [address] [address] WBC 8.2 10 3/mcL Normal 4.5-10.8 [facility] MAIN Comment on above: Performed By: #### C BC, BMP, ADIFF, GFR, ANEU #### [address] [address] MGon 10-24-2024 Magnesium [Mass/Vol] 2.1 mg/dL Normal 1.6-2.4 [facility] MAIN Comment on above: Performed By: #### C BC, BMP, ADIFF, GFR, ANEU #### [address] [address] Non-[facility]ie [facility] Cytology Reporton Non-Pie [facility] Cytology Report . Pathology Reports Accession: Collected Date/Time: Received Date/Time: Pathologist: [id number] 10/23/2024 11:24 EST 10/23/2024 14:02 EST MAXI DIEGO MD Non-Pie [facility] Cytology Report CLINICAL INFORMATION: Left pleural effusion DIAGNOSTIC CATEGORY: NEGATIVE FOR MALIGNANCY. Acute inflammation present. SPECIMEN: Left Pleural fluid GROSS DESCRIPTION: # of Blocks: 1 # of Monolayers: 1 Volume (ml) 15 Color: fresh clear yellow Electronically Signed by Pathology Report verified by [facility] Screened by: ERYN CRAWFORD Electronically signed by MAXI DIEGO Sign-Out Date: 10/24/2024 12:26 Performing Lab: [address] [address] [facility] Pathology Dept Disclaimer If ancillary studies were utilized, the following Laboratory Developed Test (LDT) disclaimer will apply: Under CLIA requirements, [facility] is qualified to perform high complexity testing. For all ancillary stains, positive and negative controls stain appropriately. Performance characteristics of immunohistochemical and chromogenic in-situ hybridization tests have been determined by [facility]. These tests are used for clinical purposes, They should not be regarded as investigational or for research. Normal [facility] MAIN Non-Pie [facility] Cytology Report #[id number] [facility] Work Phone: Non-Pie [facility] Cytology Report #[id number] [facility] Work Phone: Non-Pie [facility] Cytology Report #[id number] [facility] Work Phone: Non-Pie [facility] Cytology Report #[id number] [facility] Work Phone: Non-Pie [facility] Cytology Report #[id number] [facility] Work Phone: Non-Pie [facility] Cytology Report #[id number] [facility] Work Phone: .Auto Diffon 10-23-2024 Basophil, Absolute 0.1 10 3/mcL Normal 0.0-0.3 [facility] MAIN Comment on above: Performed By: #### C BC, BMP, ADIFF, GFR, ANEU #### [address] [address] Basophils/100 WBC (Bld) 0.8 % Normal 0.0-2.5 [facility] MAIN Comment on above: Performed By: #### C BC, BMP, ADIFF, GFR, ANEU #### [address] [address] Eosinophil, Absolute 0.3 10 3/mcL Normal 0.0-0.7 [facility] MA[facility] Comment on above: Performed By: #### C BC, BMP, ADIFF, GFR, ANEU #### [address] [address] Eosinophils/100 WBC (Bld) 3.4 % Normal 0.0-6.0 [facility] MAIN Comment on above: Performed By: #### C BC, BMP, ADIFF, GFR, ANEU #### [address] [address] Lymphocyte, Absolute 1.0 10 3/mcL Normal 0.9-4.3 [facility] MA[facility] Comment on above: Performed By: #### C BC, BMP, ADIFF, GFR, ANEU #### [address] [address] Lymphocytes/100 WBC (Bld) 12.8 % Low 20.0-40.0 [facility] MAIN Comment on above: Performed By: #### C BC, BMP, ADIFF, GFR, ANEU #### [address] [address] Monocyte, Absolute 0.6 10 3/mcL Normal 0.1-1.4 [facility] MAIN Comment on above: Performed By: #### C BC, BMP, ADIFF, GFR, ANEU #### [address] [address] Monocytes/100 WBC (Bld) 8.1 % Normal 2.0-13.0 [facility] MAIN Comment on above: Performed By: #### C BC, BMP, ADIFF, GFR, ANEU #### [address] [address] Neutrophils/100 WBC (Bld) 74.9 % Normal 50.0-75.0 [facility] MAIN Comment on above: Performed By: #### C BC, BMP, ADIFF, GFR, ANEU #### [address] [address] .GFRon 10-23-2024 GFR >60 [facility] MAIN Comment on above: Result Comment: GFR Population mean for , Non- Americans Ages 20-29 = 116 mL/min/1.73 sq.m. Ages 30-39 = 107 mL/min/1.73 sq.m. Ages 40-49 = 99 mL/min/1.73 sq.m. Ages 50-59 = 93 mL/min/1.73 sq.m. Ages 60-69 = 85 mL/min/1.73 sq.m. Ages 70+ = 75 mL/min/1.73 sq.m. Chronic Kidney Disease: Less than 60 mL/min/1.73 square meters End Stage Renal Disease: Less than 15 mL/min/1.73 square meters Performed By: #### C BC, ANEU, BMP, GFR, ADIFF, MG #### [address] [address] GFR Non- >60 Normal [facility] MAIN Comment on above: Result Comment: GFR Population mean for , Non- Americans Ages 20-29 = 116 mL/min/1.73 sq.m. Ages 30-39 = 107 mL/min/1.73 sq.m. Ages 40-49 = 99 mL/min/1.73 sq.m. Ages 50-59 = 93 mL/min/1.73 sq.m. Ages 60-69 = 85 mL/min/1.73 sq.m. Ages 70+ = 75 mL/min/1.73 sq.m. Chronic Kidney Disease: Less than 60 mL/min/1.73 square meters End Stage Renal Disease: Less than 15 mL/min/1.73 square meters Performed By: #### C BC, ANEU, BMP, GFR, ADIFF, MG #### [address] [address] .NEUABSon 10-23-2024 Neutrophil, Absolute 5.7 10 3/mcL Normal 2.3-8.1 [facility] Comment on above: Performed By: #### C BC, BMP, ADIFF, GFR, ANEU #### [address] [address] BFCTon 10-23-2024 Cells Counted BF 100 [facility] MAIN Comment on above: Order Comment: Left lung Performed By: #### C BC, ANEU, BMP, GFR, ADIFF, MG #### [address] [address] Lymphocytes/100 WBC (Bld) 14 % [facility] MAIN Comment on above: Order Comment: Left lung Performed By: #### C BC, ANEU, BMP, GFR, ADIFF, MG #### [address] [address] Mononuclear cell % BF 4 % Normal [facility] MAIN Comment on above: Order Comment: Left lung Performed By: #### C BC, ANEU, BMP, GFR, ADIFF, MG #### [address] [address] Neutrophils/100 WBC (Bld) 82 % [facility] MAIN Comment on above: Order Comment: Left lung Performed By: #### C BC, ANEU, BMP, GFR, ADIFF, MG #### [address] [address] Body Fluid Source Pleural Left Normal [facility] MAIN Comment on above: Order Comment: Left lung Result Comment: Refe rence ranges have not been established for this body fluid. The test results must be integrated into the clinical context for interpretation. Performed By: #### C BC, ANEU, BMP, GFR, ADIFF, MG #### [place] [id number] Total Nucleated Cells 592 /mm3 Normal [facility] MAIN Comment on above: Order Comment: Left lung Performed By: #### C BC, ANEU, BMP, GFR, ADIFF, MG #### [place] [id number] [facility] BUN/Creatinine Ratio 18.7 ratio Normal 10.0-22.0 [facility] MAIN Comment on above: Performed By: #### C BC, ANEU, BMP, GFR, ADIFF, MG #### [place] [address] Calcium [Mass/Vol] 8.5 mg/dL Low 8.7-10.4 [facility] MAIN Comment on above: Performed By: #### C BC, ANEU, BMP, GFR, ADIFF, MG #### [place] [id number] Chloride [Moles/Vol] 101 mmol/L Normal 98-110 [facility] MAIN Comment on above: Performed By: #### C BC, ANEU, BMP, GFR, ADIFF, MG #### [place] [id number] CO2 [Moles/Vol] 28 mmol/L Normal 22-32 [facility] MAIN Comment on above: Performed By: #### C BC, ANEU, BMP, GFR, ADIFF, MG #### [place] [id number] Creatinine [Mass/Vol] 1.07 mg/dL Normal 0.60-1.40 [facility] MAIN Comment on above: Result Comment: Test ing performed on TrendKite analyzer using enzymatic creatinine methodology. Performed By: #### C BC, ANEU, BMP, GFR, ADIFF, MG #### [address] [address] Electrolyte Balance 7.0 mEq/L Normal 4.0-15.0 [facility] MAIN Comment on above: Performed By: #### C BC, ANEU, BMP, GFR, ADIFF, MG #### [address] [address] Glucose [Mass/Vol] 108 mg/dL Normal 82-115 [facility] MAIN Comment on above: Performed By: #### C BC, ANEU, BMP, GFR, ADIFF, MG #### [place] [id number] Potassium [Moles/Vol] 3.8 mmol/L Normal 3.5-5.0 [facility] MAIN Comment on above: Performed By: #### C BC, ANEU, BMP, GFR, ADIFF, MG #### [place] [id number] Sodium [Moles/Vol] 136 mmol/L Normal 136-145 [facility] MAIN Comment on above: Performed By: #### C BC, ANEU, BMP, GFR, ADIFF, MG #### [place] [address] Urea nitrogen [Mass/Vol] 20.0 mg/dL Normal 8.0-22.0 [facility] MAIN Comment on above: Performed By: #### C BC, ANEU, BMP, GFR, ADIFF, MG #### [place] [id number] CBCon 10-23-2024 Erythrocyte distribution width (RBC) [Ratio] 14.5 % Normal 11.5-15.5 [facility] MAIN Comment on above: Performed By: #### C BC, BMP, ADIFF, GFR, ANEU #### [place] [address] Hematocrit (Bld) [Volume fraction] 30.0 % Low 40.0-52.0 [facility] MAIN Comment on above: Performed By: #### C BC, BMP, ADIFF, GFR, ANEU #### [place] [id number] Hgb 10.3 G/dL Low 13.0-17.5 [facility] MAIN Comment on above: Performed By: #### C BC, BMP, ADIFF, GFR, ANEU #### [place] [address] MCH (RBC) [Entitic mass] 30.3 pg Normal 27.0-33.0 [facility] MAIN Comment on above: Performed By: #### C BC, BMP, ADIFF, GFR, ANEU #### [place] [address] MCHC 34.2 G/dL Normal 32.0-36.0 [facility] MAIN Comment on above: Performed By: #### C BC, BMP, ADIFF, GFR, ANEU #### [place] [address] MCV (RBC) [Entitic vol] 88.4 fL Normal 81.0-100.0 [facility] MAIN Comment on above: Performed By: #### C BC, BMP, ADIFF, GFR, ANEU #### [place] [address] Platelet 148 10 3/mcL Low 150-450 [facility] MAIN Comment on above: Performed By: #### C BC, BMP, ADIFF, GFR, ANEU #### [place] [address] Platelet mean volume (Bld) [Entitic vol] 8.4 fL Normal 6.4-10.5 [facility] MAIN Comment on above: Performed By: #### C BC, BMP, ADIFF, GFR, ANEU #### [place] [address] RBC 3.40 10 6/mcL Low 4.50-6.00 [facility] MAIN Comment on above: Performed By: #### C BC, BMP, ADIFF, GFR, ANEU #### [place] [address] WBC 7.6 10 3/mcL Normal 4.5-10.8 [facility] Comment on above: Performed By: #### C BC, BMP, ADIFF, GFR, ANEU #### [address] [address] GLUBFon 10-23-2024 Glucose Body Fluid Spec Type Pleural fluid Normal [facility] Comment on above: Order Comment: Left lung Result Comment: The reference interval(s) and other method performance specifications have not been established for this body fluid. The test result must be integrated into the clinical content for interpretation. Performed By: #### C BC, ANEU, BMP, GFR, ADIFF, MG #### [place] [address] Glucose BF 87.0 mg/dL Normal [facility] MAIN Comment on above: Order Comment: Left lung Performed By: #### C BC, ANEU, BMP, GFR, ADIFF, MG #### [place] [address] LABORATORYOrdered By: MAXI DIEGO on 10-23-2024 Body Fluid Path Review Negative Invalid Interpretation Code Path Review Subsection Work Phone: LABORATORYOrdered By: Neymar Caputo on 10-23-2024 Cells Counted Total (Unsp spec) [#] 100 1 Invalid Interpretation Code Manual Heme SS Lymphocytes/100 WBC (Body fld) 14 % Invalid Interpretation Code Manual Heme SS Monocytes+Macrophages/ 100 WBC (Body fld) 4 % Invalid Interpretation Code Manual Heme SS Neutrophils/100 WBC (Body fld) 82 % Invalid Interpretation Code Manual Heme SS LABORATORYOrdered By: SYSTEM SYSTEM on 10-23-2024 Glucose (Body fld) [Mass/Vol] 87.0 mg/dL Invalid Interpretation Code ADM SS LDH (Body fld) [Catalytic activity/Vol] 171.0 1 Invalid Interpretation Code ADM SS Protein (Body fld) [Mass/Vol] G/dL Invalid Interpretation Code ADM SS LABORATORYOrdered By: Danica Sanchez on 10-23-2024 Glucose Body Fluid Spec Type Pleural fluid 12 (10/23/24 11:24 AM) Normal Chemistry S Comment on above: Interpretive Data: T he reference interval(s) and other method performance specifications have not been established for this body fluid. The test result must be integrated into the clinical content for interpretation. LDH Body Fluid Spec Type Pleural fluid 13 (10/23/24 11:24 AM) Normal Chemistry S Comment on above: Interpretive Data: T he reference interval(s) and other method performance specifications have not been established for this body fluid. The test result must be integrated into the clinical content for interpretation. . Protein BF Type Pleural fluid 11 (10/23/24 11:24 AM) Normal Chemistry S Comment on above: Interpretive Data: T he reference interval(s) and other method performance specifications have not been established for this body fluid. The test result must be integrated into the clinical content for interpretation. LABORATORYOrdered By: David escalante on 10-23-2024 Nucleated RBC/100 WBC (Bld) [Ratio] 592 % Invalid Interpretation Code Manual Heme SS Specimen source Nom (Body fld) Pleural Left 10 (10/23/24 11:24 AM) Normal Manual Heme SS Comment on above: Interpretive Data: R eference ranges have not been established for this body fluid. The test results must be integrated into the clinical context for interpretation. LDBFon 10-23-2024 LDH Body Fluid Spec Type Pleural fluid Normal [facility] MAIN Comment on above: Order Comment: Thora centesis left lung Result Comment: The reference interval(s) and other method performance specifications have not been established for this body fluid. The test result must be integrated into the clinical content for interpretation. . Performed By: #### C BC, ANEU, BMP, GFR, ADIFF, MG #### [place] [address] LDH BF 171.0 U/L Normal [facility] MAIN Comment on above: Order Comment: Thora centesis left lung Performed By: #### C BC, ANEU, BMP, GFR, ADIFF, MG #### [address] [address] MGon 10-23-2024 Magnesium [Mass/Vol] 2.0 mg/dL Normal 1.6-2.4 [facility] MAIN Comment on above: Performed By: #### C BC, ANEU, BMP, GFR, ADIFF, MG #### [address] [address] No Panel Informationon 10-23 Culture Body Fluid No aerobes or anaero bes isolated at 7 days. [facility] Work Phone: GS Sedimented 2+ Polymorphonuclear cells 1+ Mononuclear cells No organisms seen. [facility] Work Phone: PROBFon 10-23-2024 Protein BF Type Pleural fluid Normal [facility] Comment on above: Order Comment: Thora centesis fluid Result Comment: The reference interval(s) and other method performance specifications have not been established for this body fluid. The test result must be integrated into the clinical content for interpretation. Performed By: #### C BC, ANEU, BMP, GFR, ADIFF, MG #### [address] [address] Protein BF <2.0 Normal [facility] MAIN Comment on above: Order Comment: Thora centesis fluid Performed By: #### C BC, ANEU, BMP, GFR, ADIFF, MG #### [address] [address] .Auto Diffon 10-22-2024 Basophil, Absolute 0.0 10 3/mcL Normal 0.0-0.3 [facility] MAIN Comment on above: Performed By: #### C BC, BMP, ADIFF, GFR, ANEU #### [address] [address] Basophils/100 WBC (Bld) 0.5 % Normal 0.0-2.5 [facility] Comment on above: Performed By: #### C BC, BMP, ADIFF, GFR, ANEU #### [address] [address] Eosinophil, Absolute 0.2 10 3/mcL Normal 0.0-0.7 [facility] Comment on above: Performed By: #### C BC, BMP, ADIFF, GFR, ANEU #### [address] [address] Eosinophils/100 WBC (Bld) 2.0 % Normal 0.0-6.0 [facility] Comment on above: Performed By: #### C BC, BMP, ADIFF, GFR, ANEU #### [address] [address] Lymphocyte, Absolute 1.3 10 3/mcL Normal 0.9-4.3 [facility] Comment on above: Performed By: #### C BC, BMP, ADIFF, GFR, ANEU #### [address] [address] Lymphocytes/100 WBC (Bld) 13.3 % Low 20.0-40.0 [facility] Comment on above: Performed By: #### C BC, BMP, ADIFF, GFR, ANEU #### [address] [address] Monocyte, Absolute 1.0 10 3/mcL Normal 0.1-1.4 [facility] Comment on above: Performed By: #### C BC, BMP, ADIFF, GFR, ANEU #### [address] [address] Monocytes/100 WBC (Bld) 10.5 % Normal 2.0-13.0 [facility] Comment on above: Performed By: #### C BC, BMP, ADIFF, GFR, ANEU #### [address] [address] Neutrophils/100 WBC (Bld) 73.7 % Normal 50.0-75.0 [facility] Comment on above: Performed By: #### C BC, BMP, ADIFF, GFR, ANEU #### [address] [address] .GFRon 10-22-2024 GFR >60 Normal [facility] MAIN Comment on above: Result Comment: GFR Population mean for , Non- Americans Ages 20-29 = 116 mL/min/1.73 sq.m. Ages 30-39 = 107 mL/min/1.73 sq.m. Ages 40-49 = 99 mL/min/1.73 sq.m. Ages 50-59 = 93 mL/min/1.73 sq.m. Ages 60-69 = 85 mL/min/1.73 sq.m. Ages 70+ = 75 mL/min/1.73 sq.m. Chronic Kidney Disease: Less than 60 mL/min/1.73 square meters End Stage Renal Disease: Less than 15 mL/min/1.73 square meters Performed By: #### C BC, BMP, ADIFF, GFR, ANEU #### [address] [address] GFR Non- >60 Normal [facility] MA[facility] Comment on above: Result Comment: GFR Population mean for , Non- Americans Ages 20-29 = 116 mL/min/1.73 sq.m. Ages 30-39 = 107 mL/min/1.73 sq.m. Ages 40-49 = 99 mL/min/1.73 sq.m. Ages 50-59 = 93 mL/min/1.73 sq.m. Ages 60-69 = 85 mL/min/1.73 sq.m. Ages 70+ = 75 mL/min/1.73 sq.m. Chronic Kidney Disease: Less than 60 mL/min/1.73 square meters End Stage Renal Disease: Less than 15 mL/min/1.73 square meters Performed By: #### C BC, BMP, ADIFF, GFR, ANEU #### [address] [address] .NEUABSon 10-22-2024 Neutrophil, Absolute 7.0 10 3/mcL Normal 2.3-8.1 [facility] Comment on above: Performed By: #### C BC, BMP, ADIFF, GFR, ANEU #### [address] [address] BMPon 10-22-2024 BUN/Creatinine Ratio 18.1 ratio Normal 10.0-22.0 [facility] Comment on above: Performed By: #### C BC, BMP, ADIFF, GFR, ANEU #### [address] [address] Calcium [Mass/Vol] 8.4 mg/dL Low 8.7-10.4 [facility] Comment on above: Performed By: #### C BC, BMP, ADIFF, GFR, ANEU #### [address] [address] Chloride [Moles/Vol] 103 mmol/L Normal 98-110 [facility] Comment on above: Performed By: #### C BC, BMP, ADIFF, GFR, ANEU #### [address] [address] CO2 [Moles/Vol] 29 mmol/L Normal 22-32 [facility] Comment on above: Performed By: #### C BC, BMP, ADIFF, GFR, ANEU #### [address] [address] Creatinine [Mass/Vol] 1.05 mg/dL Normal 0.60-1.40 [facility] Comment on above: Result Comment: Test ing performed on TrendKite analyzer using enzymatic creatinine methodology. Performed By: #### C BC, BMP, ADIFF, GFR, ANEU #### [place] [id number] Electrolyte Balance 3.0 mEq/L Low 4.0-15.0 [facility] Comment on above: Performed By: #### C BC, BMP, ADIFF, GFR, ANEU #### [place] [id number] Glucose [Mass/Vol] 94 mg/dL Normal 82-115 [facility] Comment on above: Performed By: #### C BC, BMP, ADIFF, GFR, ANEU #### [place] [address] Potassium [Moles/Vol] 3.8 mmol/L Normal 3.5-5.0 [facility] Comment on above: Performed By: #### C BC, BMP, ADIFF, GFR, ANEU #### [place] [address] Sodium [Moles/Vol] 135 mmol/L Low 136-145 [facility] Comment on above: Performed By: #### C BC, BMP, ADIFF, GFR, ANEU #### [place] [id number] Urea nitrogen [Mass/Vol] 19.0 mg/dL Normal 8.0-22.0 [facility] Comment on above: Performed By: #### C BC, BMP, ADIFF, GFR, ANEU #### [address] [address] CBCon 10-22-2024 Erythrocyte distribution width (RBC) [Ratio] 14.8 % Normal 11.5-15.5 [facility] MA[facility] Comment on above: Performed By: #### C BC, BMP, ADIFF, GFR, ANEU #### [place] [address] Hematocrit (Bld) [Volume fraction] 31.7 % Low 40.0-52.0 [facility] Comment on above: Performed By: #### C BC, BMP, ADIFF, GFR, ANEU #### [place] [address] Hgb 11.0 G/dL Low 13.0-17.5 [facility] Comment on above: Performed By: #### C BC, BMP, ADIFF, GFR, ANEU #### [place] [address] MCH (RBC) [Entitic mass] 30.9 pg Normal 27.0-33.0 [facility] Comment on above: Performed By: #### C BC, BMP, ADIFF, GFR, ANEU #### [place] [address] MCHC 34.7 G/dL Normal 32.0-36.0 [facility] Comment on above: Performed By: #### C BC, BMP, ADIFF, GFR, ANEU #### [place] [address] MCV (RBC) [Entitic vol] 89.0 fL Normal 81.0-100.0 [facility] MA[facility] Comment on above: Performed By: #### C BC, BMP, ADIFF, GFR, ANEU #### [place] [address] Platelet 158 10 3/mcL Normal 150-450 [facility] MA[facility] Comment on above: Performed By: #### C BC, BMP, ADIFF, GFR, ANEU #### [place] [address] Platelet mean volume (Bld) [Entitic vol] 8.6 fL Normal 6.4-10.5 [facility] MA[facility] Comment on above: Performed By: #### C BC, BMP, ADIFF, GFR, ANEU #### [place] [address] RBC 3.56 10 6/mcL Low 4.50-6.00 [facility] MA[facility] Comment on above: Performed By: #### C BC, BMP, ADIFF, GFR, ANEU #### [facility] [address] [place] [address] WBC 9.5 10 3/mcL Normal 4.5-10.8 [facility] Comment on above: Performed By: #### C BC, BMP, ADIFF, GFR, ANEU #### [facility] [address] [place] [address] XR CHEST 1 VIEWon 10-22-2024 XR CHEST 1 VIEW ORIGINAL EXAMINATION: ONE XRAY VIEW OF THE CHEST TECHNIQUE: One view AP upright COMPARISON: Chest 10/21/2024 CT chest 10/20/2024 HISTORY: ORDERING SYSTEM PROVIDED HISTORY: Reason for Exam: pleural effusion FINDINGS: Support devices: A left pigtail chest tube overlies the lung base. Cardiomediastinal: Stable cardiomegaly. Status post median sternotomy and CABG. Lungs: Lungs are hyperinflated. Redemonstrated are ovoid opacities in the right lung representing fluid trapped in the minor and major fissures. Unchanged small, left greater than right pleural effusions which were more prominent on the CT chest of reference. Right lower lobe airspace disease is unchanged. Pneumothorax: None Osseous: No acute osseous pathology. IMPRESSION: 1. Unchanged small, left greater than right pleural effusions. 2. Unchanged right lower lobe airspace disease. 3. Unchanged ovoid opacities in the right lung representing fluid trapped in the minor and major fissures. 4. Left-sided chest tube in place Interpreted by: Cornell Klein MD Preliminary Report By: Cornell Klein MD Electronically signed By Cornell Klein MD Dictated Date: 10/22/2024 9:06:41 AM Prelim Date: 10/22/2024 9:14:15 AM Sign Date: 10/22/2024 9:14:15 AM Ordering Provider: KARISSA Levine [facility] .Auto Diffon 10-21-2024 Basophil, Absolute 0.0 10 3/mcL Normal 0.0-0.3 [facility] Comment on above: Performed By: #### C BC, GFR, BMP, ADIFF, ANEU ####[facility] [place] [address] Basophils/100 WBC (Bld) 0.3 % Normal 0.0-2.5 [facility] Comment on above: Performed By: #### C BC, GFR, BMP, ADIFF, ANEU ####[address] [address] Eosinophil, Absolute 0.1 10 3/mcL Normal 0.0-0.7 [facility] Comment on above: Performed By: #### C BC, GFR, BMP, ADIFF, ANEU ####[address] [address] Eosinophils/100 WBC (Bld) 1.1 % Normal 0.0-6.0 [facility] Comment on above: Performed By: #### C BC, GFR, BMP, ADIFF, ANEU ####[address] [address] Lymphocyte, Absolute 1.1 10 3/mcL Normal 0.9-4.3 [facility] Comment on above: Performed By: #### C BC, GFR, BMP, ADIFF, ANEU ####[address] [address] Lymphocytes/100 WBC (Bld) 9.1 % Low 20.0-40.0 [facility] MA[facility] Comment on above: Performed By: #### C BC, GFR, BMP, ADIFF, ANEU ####[address] [address] Monocyte, Absolute 1.1 10 3/mcL Normal 0.1-1.4 [facility] Comment on above: Performed By: #### C BC, GFR, BMP, ADIFF, ANEU ####[address] [address] Monocytes/100 WBC (Bld) 9.4 % Normal 2.0-13.0 [facility] MA[facility] Comment on above: Performed By: #### C BC, GFR, BMP, ADIFF, ANEU ####[address] [address] Neutrophils/100 WBC (Bld) 80.1 % High 50.0-75.0 [facility] MA[facility] Comment on above: Performed By: #### C BC, GFR, BMP, ADIFF, ANEU ####[address] [address] .GFRon 12-09-2024 GFR >60 Normal [facility] MAIN Comment on above: Result Comment: GFR Population mean for , Non- Americans Ages 20-29 = 116 mL/min/1.73 sq.m. Ages 30-39 = 107 mL/min/1.73 sq.m. Ages 40-49 = 99 mL/min/1.73 sq.m. Ages 50-59 = 93 mL/min/1.73 sq.m. Ages 60-69 = 85 mL/min/1.73 sq.m. Ages 70+ = 75 mL/min/1.73 sq.m. Chronic Kidney Disease: Less than 60 mL/min/1.73 square meters End Stage Renal Disease: Less than 15 mL/min/1.73 square meters Performed By: #### C BC, BMP, ADIFF, GFR, ANEU #### [address] [address] GFR Non- >60 Normal [facility] MA[facility] Comment on above: Result Comment: GFR Population mean for , Non- Americans Ages 20-29 = 116 mL/min/1.73 sq.m. Ages 30-39 = 107 mL/min/1.73 sq.m. Ages 40-49 = 99 mL/min/1.73 sq.m. Ages 50-59 = 93 mL/min/1.73 sq.m. Ages 60-69 = 85 mL/min/1.73 sq.m. Ages 70+ = 75 mL/min/1.73 sq.m. Chronic Kidney Disease: Less than 60 mL/min/1.73 square meters End Stage Renal Disease: Less than 15 mL/min/1.73 square meters Performed By: #### C BC, BMP, ADIFF, GFR, ANEU #### [address] [address] .NEUABSon 10-21-2024 Neutrophil, Absolute 9.5 10 3/mcL High 2.3-8.1 [facility] Comment on above: Performed By: #### C BC, BMP, ADIFF, GFR, ANEU #### [address] [address] BMPon 10-21-2024 BUN/Creatinine Ratio 18.6 ratio Normal 10.0-22.0 [facility] MA[facility] Comment on above: Performed By: #### C BC, BMP, ADIFF, GFR, ANEU #### [address] [address] Calcium [Mass/Vol] 8.8 mg/dL Normal 8.7-10.4 [facility] Comment on above: Performed By: #### C BC, BMP, ADIFF, GFR, ANEU #### [place] [id number] Chloride [Moles/Vol] 101 mmol/L Normal 98-110 [facility] Comment on above: Performed By: #### C BC, BMP, ADIFF, GFR, ANEU #### [address] [address] CO2 [Moles/Vol] 27 mmol/L Normal 22-32 [facility] Comment on above: Performed By: #### C BC, BMP, ADIFF, GFR, ANEU #### [place] [id number] Creatinine [Mass/Vol] 1.02 mg/dL Normal 0.60-1.40 [facility] Comment on above: Result Comment: Test ing performed on TrendKite analyzer using enzymatic creatinine methodology. Performed By: #### C BC, BMP, ADIFF, GFR, ANEU #### [address] [address] Electrolyte Balance 7.0 mEq/L Normal 4.0-15.0 [facility] Comment on above: Performed By: #### C BC, BMP, ADIFF, GFR, ANEU #### [address] [address] Glucose [Mass/Vol] 116 mg/dL High 82-115 [facility] Comment on above: Performed By: #### C BC, BMP, ADIFF, GFR, ANEU #### [address] [address] Potassium [Moles/Vol] 4.2 mmol/L Normal 3.5-5.0 [facility] Comment on above: Performed By: #### C BC, BMP, ADIFF, GFR, ANEU #### [place] [id number] Sodium [Moles/Vol] 135 mmol/L Low 136-145 [facility] Comment on above: Performed By: #### C BC, BMP, ADIFF, GFR, ANEU #### [place] [address] Urea nitrogen [Mass/Vol] 19.0 mg/dL Normal 8.0-22.0 [facility] Comment on above: Performed By: #### C BC, BMP, ADIFF, GFR, ANEU #### [place] [address] CBCon 10-21-2024 Erythrocyte distribution width (RBC) [Ratio] 14.8 % Normal 11.5-15.5 [facility] Comment on above: Performed By: #### C BC, GFR, BMP, ADIFF, ANEU ####[place] [address] Hematocrit (Bld) [Volume fraction] 34.5 % Low 40.0-52.0 [facility] Comment on above: Performed By: #### C BC, GFR, BMP, ADIFF, ANEU ####[place] [address] Hgb 11.7 G/dL Low 13.0-17.5 [facility] Comment on above: Performed By: #### C BC, GFR, BMP, ADIFF, ANEU ####[place] [address] MCH (RBC) [Entitic mass] 30.0 pg Normal 27.0-33.0 [facility] Comment on above: Performed By: #### C BC, GFR, BMP, ADIFF, ANEU ####[place] [address] MCHC 33.7 G/dL Normal 32.0-36.0 [facility] Comment on above: Performed By: #### C BC, GFR, BMP, ADIFF, ANEU ####[place] [address] MCV (RBC) [Entitic vol] 89.0 fL Normal 81.0-100.0 [facility] Comment on above: Performed By: #### C BC, GFR, BMP, ADIFF, ANEU ####[place] [id number] [place] [address] Platelet 160 10 3/mcL Normal 150-450 [facility] MA[facility] Comment on above: Performed By: #### C BC, GFR, BMP, ADIFF, ANEU ####[place] [id number] [place] [address] Platelet mean volume (Bld) [Entitic vol] 8.8 fL Normal 6.4-10.5 [facility] Comment on above: Performed By: #### C BC, GFR, BMP, ADIFF, ANEU ####[place] [address] [place] [address] RBC 3.88 10 6/mcL Low 4.50-6.00 [facility] Comment on above: Performed By: #### C BC, GFR, BMP, ADIFF, ANEU ####[address] [address] WBC 11.8 10 3/mcL High 4.5-10.8 [facility] Comment on above: Performed By: #### C BC, GFR, BMP, ADIFF, ANEU ####[address] [address] XR CHEST 1 VIEWon 10-21-2024 XR CHEST 1 VIEW ORIGINAL EXAMINATION: ONE XRAY VIEW OF THE CHEST10/21/2024 12:45 pm COMPARISON: 10/20/2024, CT 10/20/2024 HISTORY: ORDERING SYSTEM PROVIDED HISTORY: Reason for Exam: post chest tube insertion in bed FINDINGS: The exam is rotated. The heart appears enlarged. Atherosclerosis seen. Sternotomy wires appear intact. Accentuated vascular markings seen. Prominent density at an oblique angle from the right hilum could relate to fluid trapped in the right major fissure. Patchy multifocal airspace opacities seen in the right lung. Small left pleural effusions seen. There is a left pleural space catheter. No pleural fluid or pneumothorax. No aggressive osseous lesions identified.Degenerative changes seen of the shoulders. IMPRESSION: Loculated right pleural effusion with patchy multifocal airspace disease in the right lung. Follow to resolution. Small residual left pleural effusion with the left pleural space catheter in place Mild vascular congestion pattern Interpreted by: Jamaal Garcia MD Preliminary Report By: Jamaal Garcia MD Electronically signed By Jamaal Garcia MD Dictated Date: 10/21/2024 12:52:14 PM Prelim Date: 10/21/2024 12:54:12 PM Sign Date: 10/21/2024 12:54:12 PM Ordering Provider: SATYA JOHNSON [facility] Basic Metabolic Profile (BMP )on 10-20-2024 BUN Normal 7-18 [facility] Comment on above: Result Comment: Canc elled via OM: Order cancelled - Patient discharged Performed By: #### L 500.2500, L100.0100 ####[facility] [address] [place], [address] BUN/CRE Normal 10-20 [facility] Comment on above: Result Comment: Canc elled via OM: Order cancelled - Patient discharged Performed By: #### L 500.2500, L100.0100 ####[facility] [address] [place], [address] CA,Total Normal 8.5-10.1 [facility] Comment on above: Result Comment: Canc elled via OM: Order cancelled - Patient discharged Performed By: #### L 500.2500, L100.0100 ####[facility] [address] [place], [address] CL Normal 98-107 [facility] Comment on above: Result Comment: Canc elled via OM: Order cancelled - Patient discharged Performed By: #### L 500.2500, L100.0100 ####[facility] [address] [place], [address] CO2 Normal 21.0-32.0 [facility] Comment on above: Result Comment: Canc elled via OM: Order cancelled - Patient discharged Performed By: #### L 500.2500, L100.0100 ####[facility] [address] [place], [address] CREAT,SERUM Normal 0.70-1.30 [facility] Comment on above: Result Comment: Canc elled via OM: Order cancelled - Patient discharged Performed By: #### L 500.2500, L100.0100 ####[facility] [address] [place], [address] EST GFR Normal >60 [facility] Comment on above: Result Comment: Canc elled via OM: Order cancelled - Patient discharged Performed By: #### L 500.2500, L100.0100 ####[facility] [address] [place], [address] EST GFR - AA Normal >60 [facility] Comment on above: Result Comment: Canc elled via OM: Order cancelled - Patient discharged Performed By: #### L 500.2500, L100.0100 ####[facility] [address] [place], [address] GAP Normal 5-15 [facility] Comment on above: Result Comment: Canc elled via OM: Order cancelled - Patient discharged Performed By: #### L 500.2500, L100.0100 ####[facility] [address] [place], [address] GLU Normal 74-106 [facility] Comment on above: Result Comment: Canc elled via OM: Order cancelled - Patient discharged Performed By: #### L 500.2500, L100.0100 ####[facility] [address] [place], [address] Potassium Normal 3.5-5.1 [facility] Comment on above: Result Comment: Canc elled via OM: Order cancelled - Patient discharged Performed By: #### L 500.2500, L100.0100 ####[facility] [address] [place], [address] Basic Metabolic Profile (BMP) Normal 136-145 [facility] Comment on above: Result Comment: Canc elled via OM: Order cancelled - Patient discharged Performed By: #### L 500.2500, L100.0100 ####[facility] [address] [place], [address] CBC W/Diff, Automatedon 12-0 Absolute Neut Normal 2.0-7.7 [facility] Comment on above: Result Comment: Canc elled via OM: Order cancelled - Patient discharged Performed By: #### L 500.2500, L100.0100 ####[facility] [address] [place], [address] HCT Normal 40-54 [facility] Comment on above: Result Comment: Canc elled via OM: Order cancelled - Patient discharged Performed By: #### L 500.2500, L100.0100 ####[facility] [address] [place], [address] HGB Normal 13.0-16.5 [facility] Comment on above: Result Comment: Canc elled via OM: Order cancelled - Patient discharged Performed By: #### L 500.2500, L100.0100 ####[facility] [address] [place], [address] MCH Normal 27.0-32.0 [facility] Comment on above: Result Comment: Canc elled via OM: Order cancelled - Patient discharged Performed By: #### L 500.2500, L100.0100 ####[facility] [address] [place], [address] MCHC Normal 32-36 [facility] Comment on above: Result Comment: Canc elled via OM: Order cancelled - Patient discharged Performed By: #### L 500.2500, L100.0100 ####[facility] [address] [place], [address] MCV Normal 80-94 [facility] Comment on above: Result Comment: Canc elled via OM: Order cancelled - Patient discharged Performed By: #### L 500.2500, L100.0100 ####[facility] [address] [place], [address] NEUT% Normal 47-70 [facility] Comment on above: Result Comment: Canc elled via OM: Order cancelled - Patient discharged Performed By: #### L 500.2500, L100.0100 ####[facility] [address] [place], [address] PLT Normal 150-450 [facility] Comment on above: Result Comment: Canc elled via OM: Order cancelled - Patient discharged Performed By: #### L 500.2500, L100.0100 ####[facility] [address] [place], [address] RBC Normal 4.6-6.2 [facility] Comment on above: Result Comment: Canc elled via OM: Order cancelled - Patient discharged Performed By: #### L 500.2500, L100.0100 ####[facility] [address] [place], [address] RDW CV Normal 11.6-14.6 [facility] Comment on above: Result Comment: Canc elled via OM: Order cancelled - Patient discharged Performed By: #### L 500.2500, L100.0100 ####[facility] [address] [place], [address] RDW SD Normal 35.1-43.9 [facility] Comment on above: Result Comment: Canc elled via OM: Order cancelled - Patient discharged Performed By: #### L 500.2500, L100.0100 ####[facility] [address] [place], [address] WBC Normal 4.4-11.0 [facility] Comment on above: Result Comment: Canc elled via OM: Order cancelled - Patient discharged Performed By: #### L 500.2500, L100.0100 ####[facility] [address] [place], [address] CT THORAX W/O CONTRASTon CT THORAX W/O CONTRAST ORIGINAL EXAMINATION: CT OF THE CHEST WITHOUT CONTRAST 10/20/2024 12:53 pm TECHNIQUE: CT of the chest was performed without the administration of intravenous contrast. Multiplanar reformatted images are provided for review. Automated exposure control, iterative reconstruction, and/or weight based adjustment of the mA/kV was utilized to reduce the radiation dose to as low as reasonably achievable. COMPARISON: Dissection exam December 29, 2018, chest x-ray October 20, 2024 HISTORY: ORDERING SYSTEM PROVIDED HISTORY: Reason for Exam: sob follow-up for pleural effusion pleural effusions, ?right lung mass FINDINGS: Mild degenerative changes are noted in the spine. No acute osseous abnormality is visible. Small scattered areas of pulmonary and pleural scarring are noted. Small to moderate left and small right pleural effusions are present. There is some loculation at the upper aspect of the right pleural effusion, and at the inferior aspect of the left effusion. Adjacent areas of atelectasis are also identified. At the perihilar right lung, there is a somewhat angular 8 mm pulmonary nodule with minimal adjacent ground-glass density. This is a new finding since the previous study. Multiple nodular densities are present at the posterior aspect of the right lower lobe, measuring up to 9 mm in size. There is no confirmation of a right-sided pulmonary mass. There is loculated fluid extending into the fissures which may give this appearance. There is some consolidation at the posterior aspect of the right lower lobe. No definite left lung infiltrates are seen. A small amount of left pleural fluid extends into the major fissure. Mild paratracheal adenopathy is evident and there is also right tracheobronchial angle and AP window adenopathy. Subcarinal adenopathy also seen. All of these findings are new since the previous study. Small sliding hiatal hernia noted. No additional contributory abnormality seen. IMPRESSION: 1. Bilateral pleural effusions with some loculation as described. On the right, a portion of the loculated fluid accounts for previously seen masslike density. 2. Somewhat nodular infiltrate at the posterior aspect of the right lower lobe. Atypical infectious and inflammatory etiologies are favored, including for the perihilar nodule. Consider 3 month follow-up study after treatment to reassess these findings. 3. Adenopathy in multiple areas, presumably reactive or hyperplastic. Attention should be given to this on follow-up as well. Interpreted by: Satya Long MD Preliminary Report By: Satya Long MD Electronically signed By Satya Long MD Dictated Date: 10/20/2024 1:16:20 PM Prelim Date: 10/20/2024 1:21:19 PM Sign Date: 10/20/2024 1:21:19 PM [facility]ing [facility] 1 VIEWon 10-20-2024 XR CHEST 1 VIEW ORIGINAL EXAMINATION: ONE XRAY VIEW OF THE CHEST 10/20/2024 6:56 am COMPARISON: None. HISTORY: ORDERING SYSTEM PROVIDED HISTORY: Reason for Exam: pleural effusions FINDINGS: 4.9 cm masslike region in the right mid lung is indeterminate. Hazy interstitial and alveolar opacities throughout the lungs bilaterally with small bilateral effusions. Mild cardiomegaly. Atherosclerotic calcification related ordered noted. No pneumothorax. IMPRESSION: Hazy interstitial and alveolar airspace disease bilaterally with small bilateral effusions. Findings could represent congestion/edema versus a developing infectious or inflammatory process. 4.9 cm masslike opacity in the right mid lung is indeterminate, CT thorax could be useful in further evaluation. Interpreted by: Cecille Hubbard MD Preliminary Report By: Cecille Hubbard MD Electronically signed By Cecille Hubbard MD Dictated Date: 10/20/2024 7:35:58 AM Prelim Date: 10/20/2024 7:40:49 AM Sign Date: 10/20/2024 7:40:49 AM Ordering Provider: CRYSTALAsael VERGARA [facility] .Auto Diffon 10-19-2024 Basophil, Absolute 0.1 10 3/mcL Normal 0.0-0.3 [facility] Comment on above: Performed By: #### C BC, BMP, ADIFF, GFR, ANEU #### [facility] [address] [place] [address] Basophils/100 WBC (Bld) 0.5 % Normal 0.0-2.5 [facility] Comment on above: Performed By: #### C BC, BMP, ADIFF, GFR, ANEU #### [address] [address] Eosinophil, Absolute 0.1 10 3/mcL Normal 0.0-0.7 [facility] Comment on above: Performed By: #### C BC, BMP, ADIFF, GFR, ANEU #### [address] [address] Eosinophils/100 WBC (Bld) 1.1 % Normal 0.0-6.0 [facility] Comment on above: Performed By: #### C BC, BMP, ADIFF, GFR, ANEU #### [address] [address] Lymphocyte, Absolute 0.9 10 3/mcL Normal 0.9-4.3 [facility] Comment on above: Performed By: #### C BC, BMP, ADIFF, GFR, ANEU #### [address] [address] Lymphocytes/100 WBC (Bld) 8.5 % Low 20.0-40.0 [facility] Comment on above: Performed By: #### C BC, BMP, ADIFF, GFR, ANEU #### [address] [address] Monocyte, Absolute 0.9 10 3/mcL Normal 0.1-1.4 [facility] Comment on above: Performed By: #### C BC, BMP, ADIFF, GFR, ANEU #### [address] [address] Monocytes/100 WBC (Bld) 8.6 % Normal 2.0-13.0 [facility] Comment on above: Performed By: #### C BC, BMP, ADIFF, GFR, ANEU #### [address] [address] Neutrophils/100 WBC (Bld) 81.3 % High 50.0-75.0 [facility] Comment on above: Performed By: #### C BC, BMP, ADIFF, GFR, ANEU #### [address] [address] .GFRon 10-19-2024 GFR >60 Normal [facility] Comment on above: Result Comment: GFR Population mean for , Non- Americans Ages 20-29 = 116 mL/min/1.73 sq.m. Ages 30-39 = 107 mL/min/1.73 sq.m. Ages 40-49 = 99 mL/min/1.73 sq.m. Ages 50-59 = 93 mL/min/1.73 sq.m. Ages 60-69 = 85 mL/min/1.73 sq.m. Ages 70+ = 75 mL/min/1.73 sq.m. Chronic Kidney Disease: Less than 60 mL/min/1.73 square meters End Stage Renal Disease: Less than 15 mL/min/1.73 square meters Performed By: #### C BC, BMP, ADIFF, GFR, ANEU #### [address] [address] GFR Non- >60 Normal [facility] Comment on above: Result Comment: GFR Population mean for , Non- Americans Ages 20-29 = 116 mL/min/1.73 sq.m. Ages 30-39 = 107 mL/min/1.73 sq.m. Ages 40-49 = 99 mL/min/1.73 sq.m. Ages 50-59 = 93 mL/min/1.73 sq.m. Ages 60-69 = 85 mL/min/1.73 sq.m. Ages 70+ = 75 mL/min/1.73 sq.m. Chronic Kidney Disease: Less than 60 mL/min/1.73 square meters End Stage Renal Disease: Less than 15 mL/min/1.73 square meters Performed By: #### C BC, BMP, ADIFF, GFR, ANEU #### [address] [address] .NEUABSon 10-19-2024 Neutrophil, Absolute 8.9 10 3/mcL High 2.3-8.1 [facility] Comment on above: Performed By: #### C BC, BMP, ADIFF, GFR, ANEU #### [address] [address] BMPon 10-19-2024 BUN/Creatinine Ratio 19.3 ratio Normal 10.0-22.0 [facility] Comment on above: Performed By: #### C BC, BMP, ADIFF, GFR, ANEU #### [place] [id number] Calcium [Mass/Vol] 9.1 mg/dL Normal 8.7-10.4 [facility] Comment on above: Performed By: #### C BC, BMP, ADIFF, GFR, ANEU #### [place] [id number] Chloride [Moles/Vol] 101 mmol/L Normal 98-110 [facility] Comment on above: Performed By: #### C BC, BMP, ADIFF, GFR, ANEU #### [place] [id number] CO2 [Moles/Vol] 25 mmol/L Normal 22-32 [facility] Comment on above: Performed By: #### C BC, BMP, ADIFF, GFR, ANEU #### [place] [id number] Creatinine [Mass/Vol] 0.83 mg/dL Normal 0.60-1.40 [facility] Comment on above: Result Comment: Test ing performed on [employer] analyzer using enzymatic creatinine methodology. Performed By: #### C BC, BMP, ADIFF, GFR, ANEU #### [place] [address] Electrolyte Balance 7.0 mEq/L Normal 4.0-15.0 [facility] Comment on above: Performed By: #### C BC, BMP, ADIFF, GFR, ANEU #### [place] [id number] Glucose [Mass/Vol] 165 mg/dL High 82-115 [facility] Comment on above: Performed By: #### C BC, BMP, ADIFF, GFR, ANEU #### [place] [id number] Potassium [Moles/Vol] 4.1 mmol/L Normal 3.5-5.0 [facility] Comment on above: Performed By: #### C BC, BMP, ADIFF, GFR, ANEU #### [address] [address] Sodium [Moles/Vol] 133 mmol/L Low 136-145 [facility] Comment on above: Performed By: #### C BC, BMP, ADIFF, GFR, ANEU #### [address] [address] Urea nitrogen [Mass/Vol] 16.0 mg/dL Normal 8.0-22.0 [facility] Comment on above: Performed By: #### C BC, BMP, ADIFF, GFR, ANEU #### [address] [address] Basic Metabolic Profile (BMP )on 10-19-2024 BUN Normal 7-18 [facility] Comment on above: Result Comment: Canc elled via OM: Order cancelled - Patient discharged Performed By: #### L 500.2500, L100.0100 ####[facility] [address] [place], [address] BUN/CRE Normal 10-20 [facility] Comment on above: Result Comment: Canc elled via OM: Order cancelled - Patient discharged Performed By: #### L 500.2500, L100.0100 ####[facility] [address] [place], [address] CA,Total Normal 8.5-10.1 [facility] Comment on above: Result Comment: Canc elled via OM: Order cancelled - Patient discharged Performed By: #### L 500.2500, L100.0100 ####[facility] [address] [place], [address] CL Normal 98-107 [facility] Comment on above: Result Comment: Canc elled via OM: Order cancelled - Patient discharged Performed By: #### L 500.2500, L100.0100 ####[facility] [address] [place], [address] CO2 Normal 21.0-32.0 [facility] Comment on above: Result Comment: Canc elled via OM: Order cancelled - Patient discharged Performed By: #### L 500.2500, L100.0100 ####[facility] [address] [place], [address] CREAT,SERUM Normal 0.70-1.30 [facility] Comment on above: Result Comment: Canc elled via OM: Order cancelled - Patient discharged Performed By: #### L 500.2500, L100.0100 ####[facility] [address] [place], [address] EST GFR Normal >60 [facility] Comment on above: Result Comment: Canc elled via OM: Order cancelled - Patient discharged Performed By: #### L 500.2500, L100.0100 ####[facility] [address] [place], [address] EST GFR - AA Normal >60 [facility] Comment on above: Result Comment: Canc elled via OM: Order cancelled - Patient discharged Performed By: #### L 500.2500, L100.0100 ####[facility] [address] [place], [address] GAP Normal 5-15 [facility] Comment on above: Result Comment: Canc elled via OM: Order cancelled - Patient discharged Performed By: #### L 500.2500, L100.0100 ####[facility] [address] [place], [address] GLU Normal 74-106 [facility] Comment on above: Result Comment: Canc elled via OM: Order cancelled - Patient discharged Performed By: #### L 500.2500, L100.0100 ####[facility] [address] [place], [address] Potassium Normal 3.5-5.1 [facility] Comment on above: Result Comment: Canc elled via OM: Order cancelled - Patient discharged Performed By: #### L 500.2500, L100.0100 ####[facility] [address] [place], [address] Basic Metabolic Profile (BMP) Normal 136-145 [facility] Comment on above: Result Comment: Canc elled via OM: Order cancelled - Patient discharged Performed By: #### L 500.2500, L100.0100 ####[facility] [address] [place], [address] CBCon 10-19-2024 Erythrocyte distribution width (RBC) [Ratio] 14.2 % Normal 11.5-15.5 [facility] Comment on above: Performed By: #### C BC, BMP, ADIFF, GFR, ANEU #### [place] [address] Hematocrit (Bld) [Volume fraction] 39.5 % Low 40.0-52.0 [facility] Comment on above: Performed By: #### C BC, BMP, ADIFF, GFR, ANEU #### [place] [address] Hgb 13.3 G/dL Normal 13.0-17.5 [facility] Comment on above: Performed By: #### C BC, BMP, ADIFF, GFR, ANEU #### [place] [address] MCH (RBC) [Entitic mass] 30.0 pg Normal 27.0-33.0 [facility] Comment on above: Performed By: #### C BC, BMP, ADIFF, GFR, ANEU #### [place] [id number] MCHC 33.6 G/dL Normal 32.0-36.0 [facility] Comment on above: Performed By: #### C BC, BMP, ADIFF, GFR, ANEU #### [place] [id number] MCV (RBC) [Entitic vol] 89.3 fL Normal 81.0-100.0 [facility] Comment on above: Performed By: #### C BC, BMP, ADIFF, GFR, ANEU #### [address] [address] Platelet 169 10 3/mcL Normal 150-450 [facility] Comment on above: Performed By: #### C BC, BMP, ADIFF, GFR, ANEU #### [address] [address] Platelet mean volume (Bld) [Entitic vol] 9.1 fL Normal 6.4-10.5 [facility] Comment on above: Performed By: #### C BC, BMP, ADIFF, GFR, ANEU #### [address] [address] RBC 4.42 10 6/mcL Low 4.50-6.00 [facility] Comment on above: Performed By: #### C BC, BMP, ADIFF, GFR, ANEU #### [address] [address] WBC 11.0 10 3/mcL High 4.5-10.8 [facility] Comment on above: Performed By: #### C BC, BMP, ADIFF, GFR, ANEU #### [address] [address] CBC W/Diff, Automatedon 12-0 -2023 Absolute Neut Normal 2.0-7.7 [facility] Comment on above: Result Comment: Canc elled via OM: Order cancelled - Patient discharged Performed By: #### L 500.2500, L100.0100 ####[facility] [address] [place], [address] HCT Normal 40-54 [facility] Comment on above: Result Comment: Canc elled via OM: Order cancelled - Patient discharged Performed By: #### L 500.2500, L100.0100 ####[facility] [address] [place], [address] HGB Normal 13.0-16.5 [facility] Comment on above: Result Comment: Canc elled via OM: Order cancelled - Patient discharged Performed By: #### L 500.2500, L100.0100 ####[facility] [address] [place], [address] MCH Normal 27.0-32.0 [facility] Comment on above: Result Comment: Canc elled via OM: Order cancelled - Patient discharged Performed By: #### L 500.2500, L100.0100 ####[facility] [address] [place], [address] MCHC Normal 32-36 [facility] Comment on above: Result Comment: Canc elled via OM: Order cancelled - Patient discharged Performed By: #### L 500.2500, L100.0100 ####[facility] [address] [place], [address] MCV Normal 80-94 [facility] Comment on above: Result Comment: Canc elled via OM: Order cancelled - Patient discharged Performed By: #### L 500.2500, L100.0100 ####[facility] [address] [place], [address] NEUT% Normal 47-70 [facility] Comment on above: Result Comment: Canc elled via OM: Order cancelled - Patient discharged Performed By: #### L 500.2500, L100.0100 ####[facility] [address] [place], [address] PLT Normal 150-450 [facility] Comment on above: Result Comment: Canc elled via OM: Order cancelled - Patient discharged Performed By: #### L 500.2500, L100.0100 ####[facility] [address] [place], [address] RBC Normal 4.6-6.2 [facility] Comment on above: Result Comment: Canc elled via OM: Order cancelled - Patient discharged Performed By: #### L 500.2500, L100.0100 ####[facility] [address] [place], [address] RDW CV Normal 11.6-14.6 [facility] Comment on above: Result Comment: Canc elled via OM: Order cancelled - Patient discharged Performed By: #### L 500.2500, L100.0100 ####[facility] [address] [place], [address] RDW SD Normal 35.1-43.9 [facility] Comment on above: Result Comment: Canc elled via OM: Order cancelled - Patient discharged Performed By: #### L 500.2500, L100.0100 ####[facility] [address] [place], [address] WBC Normal 4.4-11.0 [facility] Comment on above: Result Comment: Canc elled via OM: Order cancelled - Patient discharged Performed By: #### L 500.2500, L100.0100 ####[facility] [address] [place], [address] LABORATORYOrdered By: SYSTEM SYSTEM on 10-19-2024 Troponin I.cardiac DL <= 0.01 ng/mL [Mass/Vol] 32 ng/L Normal 0 - 54 ng/L ADM SS Comment on above: Interpretive Data: High Sensitive Troponin I Reference Ranges: Female: 0-34 ng/L Male: 0-54 ng/L Testing performed on [employer] IM analyzer using direct chemiluminescent technology. MGon 10-19-2024 Magnesium [Mass/Vol] 2.1 mg/dL Normal 1.6-2.4 [facility] Comment on above: Performed By: #### C BC, BMP, ADIFF, GFR, ANEU #### [address] [address] TROPHSon 10-19-2024 High Sensitivity Troponin I 32 ng/L Normal 0-54 [facility] Comment on above: Result Comment: High Sensitive Troponin I Reference Ranges: Female: 0-34 ng/L Male: 0-54 ng/L Testing performed on [employer] IM analyzer using direct chemiluminescent technology. Performed By: #### C BC, BMP, ADIFF, GFR, ANEU #### [place] [address] 12 Lead EKGon 10-18-2024 12 Lead EKG Normal [facility] 12 Lead EKG Normal [facility] BNP,B-Type NATRIURETIC PEPTI Major 10-18-2024 Natriuretic peptide B (Bld) [Mass/Vol] 197.7 pg/mL High 0-100 [facility] Comment on above: Performed By: #### L 300.8000, L503.6620 ####[facility] [address] [place], [address] Basic Metabolic Profile (BMP )on 10-18-2024 BUN/CRE 15.3 RATIO Normal 10-20 [facility] Comment on above: Order Comment: 'TROP ' Serial specimen #1, #2 or #3: 1 Performed By: #### L 501.4020, L100.0100, L500.2500 ####[facility] [address] [place], [address] CA,Total 10.0 mg/dL Normal 8.5-10.1 [facility] Comment on above: Order Comment: 'TROP ' Serial specimen #1, #2 or #3: 1 Performed By: #### L 501.4020, L100.0100, L500.2500 ####[facility] [address] [place], [address] Chloride [Moles/Vol] 95 mmol/L Low 98-107 [facility] Comment on above: Order Comment: 'TROP ' Serial specimen #1, #2 or #3: 1 Performed By: #### L 501.4020, L100.0100, L500.2500 ####[facility] [address] [place], [address] CO2 [Moles/Vol] 28.0 mmol/L Normal 21.0-32.0 [facility] Comment on above: Order Comment: 'TROP ' Serial specimen #1, #2 or #3: 1 Performed By: #### L 501.4020, L100.0100, L500.2500 ####[facility] [address] [place], [address] Creatinine [Mass/Vol] 1.24 mg/dL Normal 0.70-1.30 [facility] Comment on above: Order Comment: 'TROP ' Serial specimen #1, #2 or #3: 1 Result Comment: The validity of the calculated GFR GFRAA in patients over70 years has not been determined. Clinical correlation isessential. Performed By: #### L 501.4020, L100.0100, L500.2500 ####[facility] [address] [place], [address] ECRCL 46.97 ml/min Normal [facility] Comment on above: Order Comment: 'TROP ' Serial specimen #1, #2 or #3: 1 Performed By: #### L 501.4020, L100.0100, L500.2500 ####[facility] [address] [place], [address] EST GFR - AA 71 mL/min Normal >60 [facility] Comment on above: Order Comment: 'TROP ' Serial specimen #1, #2 or #3: 1 Result Comment: Afri can Japanese GFR Calc Performed By: #### L 501.4020, L100.0100, L500.2500 ####[facility] [address] [place], [address] GAP 8 Normal 5-15 [facility] Comment on above: Order Comment: 'TROP ' Serial specimen #1, #2 or #3: 1 Performed By: #### L 501.4020, L100.0100, L500.2500 ####[facility] [address] [place], [address] GFR/1.73 sq M.predicted among non-blacks MDRD (S/P/Bld) [Vol rate/Area] 59 mL/min/{1.73_m2} Low >60 [facility] Comment on above: Order Comment: 'TROP ' Serial specimen #1, #2 or #3: 1 Result Comment: Non- GFR Calc Performed By: #### L 501.4020, L100.0100, L500.2500 ####[facility] [address] [place], [address] Glucose [Mass/Vol] 127 mg/dL High 74-106 [facility] Comment on above: Order Comment: 'TROP ' Serial specimen #1, #2 or #3: 1 Result Comment: Fast ing Glucose result greater than or equal to 126 mg/dLsuggests DIABETES MELLITUS per A.D.A. criteria. Performed By: #### L 501.4020, L100.0100, L500.2500 ####[facility] [address] [place], [address] Potassium [Moles/Vol] 4.2 mmol/L Normal 3.5-5.1 [facility] Comment on above: Order Comment: 'TROP ' Serial specimen #1, #2 or #3: 1 Performed By: #### L 501.4020, L100.0100, L500.2500 ####[facility] [address] [place], [address] Sodium [Moles/Vol] 131 mmol/L Low 136-145 [facility] Comment on above: Order Comment: 'TROP ' Serial specimen #1, #2 or #3: 1 Performed By: #### L 501.4020, L100.0100, L500.2500 ####[facility] [address] [place], [address] Urea nitrogen [Mass/Vol] 19 mg/dL High 7-18 [facility] Comment on above: Order Comment: 'TROP ' Serial specimen #1, #2 or #3: 1 Performed By: #### L 501.4020, L100.0100, L500.2500 ####[facility] [address] [place], [address] BUN Normal 7-18 [facility] Comment on above: Result Comment: Canc elled via OM: Order cancelled - Patient discharged Performed By: #### L 500.2500, L100.0100 ####[facility] [address] [place], [address] BUN/CRE Normal 10-20 [facility] Comment on above: Result Comment: Canc elled via OM: Order cancelled - Patient discharged Performed By: #### L 500.2500, L100.0100 ####[facility] [address] [place], [address] CA,Total Normal 8.5-10.1 [facility] Comment on above: Result Comment: Canc elled via OM: Order cancelled - Patient discharged Performed By: #### L 500.2500, L100.0100 ####[facility] [address] [place], [address] CL Normal 98-107 [facility] Comment on above: Result Comment: Canc elled via OM: Order cancelled - Patient discharged Performed By: #### L 500.2500, L100.0100 ####[facility] [address] [place], [address] CO2 Normal 21.0-32.0 [facility] Comment on above: Result Comment: Canc elled via OM: Order cancelled - Patient discharged Performed By: #### L 500.2500, L100.0100 ####[facility] [address] [place], [address] CREAT,SERUM Normal 0.70-1.30 [facility] Comment on above: Result Comment: Canc elled via OM: Order cancelled - Patient discharged Performed By: #### L 500.2500, L100.0100 ####[facility] [address] [place], [address] EST GFR Normal >60 [facility] Comment on above: Result Comment: Canc elled via OM: Order cancelled - Patient discharged Performed By: #### L 500.2500, L100.0100 ####[facility] [address] [place], [address] EST GFR - AA Normal >60 [facility] Comment on above: Result Comment: Canc elled via OM: Order cancelled - Patient discharged Performed By: #### L 500.2500, L100.0100 ####[facility] [address] [place], [address] GAP Normal 5-15 [facility] Comment on above: Result Comment: Canc elled via OM: Order cancelled - Patient discharged Performed By: #### L 500.2500, L100.0100 ####[facility] [address] [place], [address] GLU Normal 74-106 [facility] Comment on above: Result Comment: Canc elled via OM: Order cancelled - Patient discharged Performed By: #### L 500.2500, L100.0100 ####[facility] [address] [place], [address] Potassium Normal 3.5-5.1 [facility] Comment on above: Result Comment: Canc elled via OM: Order cancelled - Patient discharged Performed By: #### L 500.2500, L100.0100 ####[facility] [address] [place], [address] Basic Metabolic Profile (BMP) Normal 136-145 [facility] Comment on above: Result Comment: Canc elled via OM: Order cancelled - Patient discharged Performed By: #### L 500.2500, L100.0100 ####[facility] [address] [place], [address] CBC W/Diff, Automatedon 12-0 Absolute Lymph 1.34 X10 3/uL Normal 0.83-4.51 [facility] Comment on above: Performed By: #### L 501.4020, L100.0100, L500.2500 ####[facility] [address] [place], [address] Absolute Neut 8.3 X10 3/uL High 2.0-7.7 [facility] Comment on above: Performed By: #### L 501.4020, L100.0100, L500.2500 ####[facility] [address] [place], [address] Basophils/100 WBC (Bld) 0.6 % Normal 0-1 [facility] Comment on above: Performed By: #### L 501.4020, L100.0100, L500.2500 ####[facility] [address] [place], [address] Eosinophils/100 WBC (Bld) 1.9 % Normal 0-5 [facility] Comment on above: Performed By: #### L 501.4020, L100.0100, L500.2500 ####[facility] [address] [place], [address] Erythrocyte distribution width (RBC) [Ratio] 13.5 % Normal 11.6-14.6 [facility] Comment on above: Performed By: #### L 501.4020, L100.0100, L500.2500 ####[facility] [address] [place], [address] Hematocrit (Bld) [Volume fraction] 40.0 % Normal 40-54 [facility] Comment on above: Performed By: #### L 501.4020, L100.0100, L500.2500 ####[facility] [address] [place], [address] Hemoglobin (Bld) [Mass/Vol] 13.2 g/dL Normal 13.0-16.5 [facility] Comment on above: Performed By: #### L 501.4020, L100.0100, L500.2500 ####[facility] [address] [place], [address] IG% 0.500 Normal 0.0-0.9 [facility] Comment on above: Result Comment: IG% - Immature Granulocytes (promyelocytes, myelocytes andmetamyelocytes) > 1% indicates that a LEFT SHIFT is Present. Performed By: #### L 501.4020, L100.0100, L500.2500 ####[facility] [address] [place], [address] Lymphocytes/100 WBC (Bld) 12.3 % Low 19-41 [facility] Comment on above: Performed By: #### L 501.4020, L100.0100, L500.2500 ####[facility] [address] [place], [address] MCH (RBC) [Entitic mass] 29.5 pg Normal 27.0-32.0 [facility] Comment on above: Performed By: #### L 501.4020, L100.0100, L500.2500 ####[facility] [address] [place], [address] MCHC (RBC) [Mass/Vol] 33.0 g/dL Normal 32-36 [facility] Comment on above: Performed By: #### L 501.4020, L100.0100, L500.2500 ####[facility] [address] [place], [address] MCV (RBC) [Entitic vol] 89.5 fL Normal 80-94 [facility] Comment on above: Performed By: #### L 501.4020, L100.0100, L500.2500 ####[facility] [address] [place], [address] Monocytes/100 WBC (Bld) 8.4 % Normal 0-10 [facility] Comment on above: Performed By: #### L 501.4020, L100.0100, L500.2500 ####[facility] [address] [place], [address] Neutrophils/100 WBC (Bld) 76.3 % High 47-70 [facility] Comment on above: Performed By: #### L 501.4020, L100.0100, L500.2500 ####[facility] [address] [place], [address] Nucleated RBC (Bld) [#/Vol] 0 10*3/uL Normal 0-5 [facility] Comment on above: Performed By: #### L 501.4020, L100.0100, L500.2500 ####[facility] [address] [place], [address] Platelet mean volume (Bld) [Entitic vol] 10.7 fL Normal 6.2-12.0 [facility] Comment on above: Performed By: #### L 501.4020, L100.0100, L500.2500 ####[facility] [address] [place], [address] Platelets (Bld) [#/Vol] 177 10*3/uL Normal 150-450 [facility] Comment on above: Performed By: #### L 501.4020, L100.0100, L500.2500 ####[facility] [address] [place], [address] RBC (Bld) [#/Vol] 4.47 10*6/uL Low 4.6-6.2 [facility] Comment on above: Performed By: #### L 501.4020, L100.0100, L500.2500 ####[facility] [address] [place], [address] RDW SD 44.4 fl High 35.1-43.9 [facility] Comment on above: Performed By: #### L 501.4020, L100.0100, L500.2500 ####[facility] [address] [place], [address] WBC (Bld) [#/Vol] 10.9 10*3/uL Normal 4.4-11.0 [facility] Comment on above: Performed By: #### L 501.4020, L100.0100, L500.2500 ####[facility] [address] [place], [address] Absolute Neut Normal 2.0-7.7 [facility] Comment on above: Result Comment: Canc elled via OM: Order cancelled - Patient discharged Performed By: #### L 500.2500, L100.0100 ####[facility] [address] [place], [address] HCT Normal 40-54 [facility] Comment on above: Result Comment: Canc elled via OM: Order cancelled - Patient discharged Performed By: #### L 500.2500, L100.0100 ####[facility] [address] [place], [address] HGB Normal 13.0-16.5 [facility] Comment on above: Result Comment: Canc elled via OM: Order cancelled - Patient discharged Performed By: #### L 500.2500, L100.0100 ####[facility] [address] [place], [address] MCH Normal 27.0-32.0 [facility] Comment on above: Result Comment: Canc elled via OM: Order cancelled - Patient discharged Performed By: #### L 500.2500, L100.0100 ####[facility] [address] [place], [address] MCHC Normal 32-36 [facility] Comment on above: Result Comment: Canc elled via OM: Order cancelled - Patient discharged Performed By: #### L 500.2500, L100.0100 ####[facility] [address] [place], [address] MCV Normal 80-94 [facility] Comment on above: Result Comment: Canc elled via OM: Order cancelled - Patient discharged Performed By: #### L 500.2500, L100.0100 ####[facility] [address] [place], [address] NEUT% Normal 47-70 [facility] Comment on above: Result Comment: Canc elled via OM: Order cancelled - Patient discharged Performed By: #### L 500.2500, L100.0100 ####[facility] [address] [place], [address] PLT Normal 150-450 [facility] Comment on above: Result Comment: Canc elled via OM: Order cancelled - Patient discharged Performed By: #### L 500.2500, L100.0100 ####[facility] [address] [place], [address] RBC Normal 4.6-6.2 [facility] Comment on above: Result Comment: Canc elled via OM: Order cancelled - Patient discharged Performed By: #### L 500.2500, L100.0100 ####[facility] [address] [place], [address] RDW CV Normal 11.6-14.6 [facility] Comment on above: Result Comment: Canc elled via OM: Order cancelled - Patient discharged Performed By: #### L 500.2500, L100.0100 ####[facility] [address] [place], [address] RDW SD Normal 35.1-43.9 [facility] Comment on above: Result Comment: Canc elled via OM: Order cancelled - Patient discharged Performed By: #### L 500.2500, L100.0100 ####[facility] [address] [place], [address] WBC Normal 4.4-11.0 [facility] Comment on above: Result Comment: Canc elled via OM: Order cancelled - Patient discharged Performed By: #### L 500.2500, L100.0100 ####[facility] [address] [place], [address] [facility]N Telephone (INTMWS) OSVALDO LUCIO ([id number]) 1935 M Date Time Provider Department 10/18/24 JEREMI MOREL INTMWS During your visit today, we recorded the following information about you: Maria Luisa Rogers RN 10/18/2024 8:26 AM Signed Daughter (Josie) calls to report that patient is SOB and his pulse ox is dipping into the low 80's. Patient not currently on oxygen. She reports this is how patient was prior to last hospital episode. Asking if he should come in for appointment of take him to the ER. Per nurse triage protocol recommended ER. Daughter to take patient to ER. Appt cancelled. Daughter will call back to reschedule. Maria Luisa Rogers RN Allergies As of Date: 10/18/2024 (No Known Allergies) Date Reviewed: 10/11/2024 Reviewed by: Dang Plummer MA - Fully Assessed Reason for Visit: Patient Update [1234] Prescriptions as of 10/18/2024 - potassium chloride (K-TAB) 10 mEq tablet TAKE 2 (TWO) TABLETS BY MOUTH EVERY DAY - insulin 50/50 lispro protamine-lispro units/mL (HUMALOG MIX 50-50 KWIKPEN) 100 unit/mL (50-50) pen Inject 30 units in the morning and 28 Units in the evenings with meals. Per Dr. Lo - tamsulosin (FLOMAX) 0.4 mg Take 2 capsules by mouth once daily. - finasteride (PROSCAR) 5 mg tablet Take 1 tablet by mouth once daily. - blood sugar diagnostic (BLOOD GLUCOSE TEST) test strip Test blood sugar(s) 2 times daily. Dx: Type 2 DM - Uncontrolled E11.65 Insulin: No - doxepin capsule 50 mg Take 1 capsule by mouth daily at bedtime. [facility] - mirtazapine (REMERON) 15 mg tablet Take 1 tablet by mouth daily at bedtime. [facility]. - furosemide (LASIX) 40 mg tablet Take 40 mg by mouth two times a day. - clonazePAM (KLONOPIN) 0.5 mg tablet Take 0.5 mg by mouth once daily as needed. - busPIRone (BUSPAR) 15 mg tablet Take 1 tablet by mouth every 12 hours. - Lancets lancets Test blood sugar(s) 2 times daily. Dx: Type 2 DM - Uncontrolled E11.65 Insulin: No - melatonin 5 mg tablet Take 1 tablet by mouth daily at bedtime. - amLODIPine (NORVASC) 10 mg tablet Take 1 tablet by mouth once daily. - lisinopril (ZESTRIL, PRINIVIL) 20 mg tablet Take 1 tablet by mouth twice daily. - metoprolol tartrate, short acting, (LOPRESSOR) 25 mg tablet Take 0.5 tablets by mouth twice daily. - ferrous sulfate 325 mg (65 mg iron) tablet Take 325 mg by mouth twice daily. - multivitamin with minerals (MULTI-VITAMIN W/MINERALS ORAL) Take 1 tablet by mouth once daily. - apixaban (ELIQUIS) 2.5 mg tab tab(s) Take 1 tablet by mouth twice daily. - atorvastatin (LIPITOR) 40 mg tablet Take 1 tablet by mouth once daily. 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 CTA Chest W/WO Contraston CTA Chest W/WO Contrast Normal [facility] D-Dimer Quantitative (DVT/PE )on 10-18-2024 D-DIMER QUANT 0.84 FEU/ug/m Invalid Interpretation Code 0.27-0.49 [facility] Comment on above: Result Comment: D-Di migdalia ELEVATED (>0.49): Additional studies and clinicalassessments are indicated to conclude diagnosis of:Deep Vein Thrombosis (DVT) or Pulmonary Embolism (PE)CRITICAL VALUE CALLED TO ISSA MAURICE (ER)10/18/24 1108 Earle Kenney.RESULTS READ BACK BY SAME. Performed By: #### L 300.8000, L503.6620 ####[facility] [address] [place], [address] Emergency Department Summary on 10-18-2024 Emergency Department Summary Normal [facility] L501.4020on 10-18-2024 TROPONIN-I HS 34 pg/mL Normal 3.0-78.0 [facility] Comment on above: Order Comment: 'TROP ' Serial specimen #1, #2 or #3: 1 Result Comment: Eduardo snow Note: New Test Units and Gender Specific Reference Ranges. For more information see Policy Stat Procedure [place] High Sensitivity Troponin (TNIH) and attachments. Performed By: #### L 501.4020, L100.0100, L500.2500 ####[facility] [address] [place], [address] M100.678on 10-18-2024 M100.678 Pending SARS-CoV-2 (COVID 19) Negative INFLUENZA A Negative INFLUENZA B Negative RSV PCR Negative Normal [facility] Comment on above: Performed By: #### M 100.678 ####[facility] [address] [place], [address] Basic Metabolic Profile (BMP )on 10-17-2024 BUN Normal 7-18 [facility] Comment on above: Result Comment: Canc elled via OM: Order cancelled - Patient discharged Performed By: #### L 100.0100, L500.2500 ####[facility] [address] [place], [address] BUN/CRE Normal 10-20 [facility] Comment on above: Result Comment: Canc elled via OM: Order cancelled - Patient discharged Performed By: #### L 100.0100, L500.2500 ####[facility] [address] [place], [address] CA,Total Normal 8.5-10.1 [facility] Comment on above: Result Comment: Canc elled via OM: Order cancelled - Patient discharged Performed By: #### L 100.0100, L500.2500 ####[facility] [address] [place], [address] CL Normal 98-107 [facility] Comment on above: Result Comment: Canc elled via OM: Order cancelled - Patient discharged Performed By: #### L 100.0100, L500.2500 ####[facility] [address] [place], [address] CO2 Normal 21.0-32.0 [facility] Comment on above: Result Comment: Canc elled via OM: Order cancelled - Patient discharged Performed By: #### L 100.0100, L500.2500 ####[facility] [address] [place], [address] CREAT,SERUM Normal 0.70-1.30 [facility] Comment on above: Result Comment: Canc elled via OM: Order cancelled - Patient discharged Performed By: #### L 100.0100, L500.2500 ####[facility] [address] [place], [address] EST GFR Normal >60 [facility] Comment on above: Result Comment: Canc elled via OM: Order cancelled - Patient discharged Performed By: #### L 100.0100, L500.2500 ####[facility] [address] [place], [address] EST GFR - AA Normal >60 [facility] Comment on above: Result Comment: Canc elled via OM: Order cancelled - Patient discharged Performed By: #### L 100.0100, L500.2500 ####[facility] [address] [place], [address] GAP Normal 5-15 [facility] Comment on above: Result Comment: Canc elled via OM: Order cancelled - Patient discharged Performed By: #### L 100.0100, L500.2500 ####[facility] [address] [place], [address] GLU Normal 74-106 [facility] Comment on above: Result Comment: Canc elled via OM: Order cancelled - Patient discharged Performed By: #### L 100.0100, L500.2500 ####[facility] [address] [place], [address] Potassium Normal 3.5-5.1 [facility] Comment on above: Result Comment: Canc elled via OM: Order cancelled - Patient discharged Performed By: #### L 100.0100, L500.2500 ####[facility] [address] [place], [address] Basic Metabolic Profile (BMP) Normal 136-145 [facility] Comment on above: Result Comment: Canc elled via OM: Order cancelled - Patient discharged Performed By: #### L 100.0100, L500.2500 ####[facility] [address] [place], [address] CBC W/Diff, Automatedon 12-0 -2023 Absolute Neut Normal 2.0-7.7 [facility] Comment on above: Result Comment: Canc elled via OM: Order cancelled - Patient discharged Performed By: #### L 100.0100, L500.2500 ####[facility] [address] [place], [address] HCT Normal 40-54 [facility] Comment on above: Result Comment: Canc elled via OM: Order cancelled - Patient discharged Performed By: #### L 100.0100, L500.2500 ####[facility] [address] [place], [address] HGB Normal 13.0-16.5 [facility] Comment on above: Result Comment: Canc elled via OM: Order cancelled - Patient discharged Performed By: #### L 100.0100, L500.2500 ####[facility] [address] [place], [address] MCH Normal 27.0-32.0 [facility] Comment on above: Result Comment: Canc elled via OM: Order cancelled - Patient discharged Performed By: #### L 100.0100, L500.2500 ####[facility] [address] [place], [address] MCHC Normal 32-36 [facility] Comment on above: Result Comment: Canc elled via OM: Order cancelled - Patient discharged Performed By: #### L 100.0100, L500.2500 ####[facility] [address] [place], [address] MCV Normal 80-94 [facility] Comment on above: Result Comment: Canc elled via OM: Order cancelled - Patient discharged Performed By: #### L 100.0100, L500.2500 ####[facility] [address] [place], [address] NEUT% Normal 47-70 [facility] Comment on above: Result Comment: Canc elled via OM: Order cancelled - Patient discharged Performed By: #### L 100.0100, L500.2500 ####[facility] [address] [place], [address] PLT Normal 150-450 [facility] Comment on above: Result Comment: Canc elled via OM: Order cancelled - Patient discharged Performed By: #### L 100.0100, L500.2500 ####[facility] [address] [place], [address] RBC Normal 4.6-6.2 [facility] Comment on above: Result Comment: Canc elled via OM: Order cancelled - Patient discharged Performed By: #### L 100.0100, L500.2500 ####[facility] [address] [place], [address] RDW CV Normal 11.6-14.6 [facility] Comment on above: Result Comment: Canc elled via OM: Order cancelled - Patient discharged Performed By: #### L 100.0100, L500.2500 ####[facility] [address] [place], [address] RDW SD Normal 35.1-43.9 [facility] Comment on above: Result Comment: Canc elled via OM: Order cancelled - Patient discharged Performed By: #### L 100.0100, L500.2500 ####[facility] [address] [place], [address] WBC Normal 4.4-11.0 [facility] Comment on above: Result Comment: Canc elled via OM: Order cancelled - Patient discharged Performed By: #### L 100.0100, L500.2500 ####[facility] [address] [place], [address] Basic Metabolic Profile (BMP )on 10-16-2024 BUN Normal 7-18 [facility] Comment on above: Result Comment: Canc elled via OM: Order cancelled - Patient discharged Performed By: #### L 100.0100, L500.2500 ####[facility] [address] [place], [address] BUN/CRE Normal 10-20 [facility] Comment on above: Result Comment: Canc elled via OM: Order cancelled - Patient discharged Performed By: #### L 100.0100, L500.2500 ####[facility] [address] [place], [address] CA,Total Normal 8.5-10.1 [facility] Comment on above: Result Comment: Canc elled via OM: Order cancelled - Patient discharged Performed By: #### L 100.0100, L500.2500 ####[facility] [address] [place], [address] CL Normal 98-107 [facility] Comment on above: Result Comment: Canc elled via OM: Order cancelled - Patient discharged Performed By: #### L 100.0100, L500.2500 ####[facility] [address] [place], [address] CO2 Normal 21.0-32.0 [facility] Comment on above: Result Comment: Canc elled via OM: Order cancelled - Patient discharged Performed By: #### L 100.0100, L500.2500 ####[facility] [address] [place], [address] CREAT,SERUM Normal 0.70-1.30 [facility] Comment on above: Result Comment: Canc elled via OM: Order cancelled - Patient discharged Performed By: #### L 100.0100, L500.2500 ####[facility] [address] [place], [address] EST GFR Normal >60 [facility] Comment on above: Result Comment: Canc elled via OM: Order cancelled - Patient discharged Performed By: #### L 100.0100, L500.2500 ####[facility] [address] [place], [address] EST GFR - AA Normal >60 [facility] Comment on above: Result Comment: Canc elled via OM: Order cancelled - Patient discharged Performed By: #### L 100.0100, L500.2500 ####[facility] [address] [place], [address] GAP Normal 5-15 [facility] Comment on above: Result Comment: Canc elled via OM: Order cancelled - Patient discharged Performed By: #### L 100.0100, L500.2500 ####[facility] [address] [place], [address] GLU Normal 74-106 [facility] Comment on above: Result Comment: Canc elled via OM: Order cancelled - Patient discharged Performed By: #### L 100.0100, L500.2500 ####[facility] [address] [place], [address] Potassium Normal 3.5-5.1 [facility] Comment on above: Result Comment: Canc elled via OM: Order cancelled - Patient discharged Performed By: #### L 100.0100, L500.2500 ####[facility] [address] [place], [address] Basic Metabolic Profile (BMP) Normal 136-145 [facility] Comment on above: Result Comment: Canc elled via OM: Order cancelled - Patient discharged Performed By: #### L 100.0100, L500.2500 ####[facility] [address] [place], [address] CBC W/Diff, Automatedon 12-0 -2023 Absolute Neut Normal 2.0-7.7 [facility] Comment on above: Result Comment: Canc elled via OM: Order cancelled - Patient discharged Performed By: #### L 100.0100, L500.2500 ####[facility] [address] [place], [address] HCT Normal 40-54 [facility] Comment on above: Result Comment: Canc elled via OM: Order cancelled - Patient discharged Performed By: #### L 100.0100, L500.2500 ####[facility] [address] [place], [address] HGB Normal 13.0-16.5 [facility] Comment on above: Result Comment: Canc elled via OM: Order cancelled - Patient discharged Performed By: #### L 100.0100, L500.2500 ####[facility] [address] [place], [address] MCH Normal 27.0-32.0 [facility] Comment on above: Result Comment: Canc elled via OM: Order cancelled - Patient discharged Performed By: #### L 100.0100, L500.2500 ####[facility] [address] [place], [address] MCHC Normal 32-36 [facility] Comment on above: Result Comment: Canc elled via OM: Order cancelled - Patient discharged Performed By: #### L 100.0100, L500.2500 ####[facility] [address] [place], [address] MCV Normal 80-94 [facility] Comment on above: Result Comment: Canc elled via OM: Order cancelled - Patient discharged Performed By: #### L 100.0100, L500.2500 ####[facility] [address] [place], [address] NEUT% Normal 47-70 [facility] Comment on above: Result Comment: Canc elled via OM: Order cancelled - Patient discharged Performed By: #### L 100.0100, L500.2500 ####[facility] [address] [place], [address] PLT Normal 150-450 [facility] Comment on above: Result Comment: Canc elled via OM: Order cancelled - Patient discharged Performed By: #### L 100.0100, L500.2500 ####[facility] [address] [place], [address] RBC Normal 4.6-6.2 [facility] Comment on above: Result Comment: Canc elled via OM: Order cancelled - Patient discharged Performed By: #### L 100.0100, L500.2500 ####[facility] [address] [place], [address] RDW CV Normal 11.6-14.6 [facility] Comment on above: Result Comment: Canc elled via OM: Order cancelled - Patient discharged Performed By: #### L 100.0100, L500.2500 ####[facility] [address] [place], [address] RDW SD Normal 35.1-43.9 [facility] Comment on above: Result Comment: Canc elled via OM: Order cancelled - Patient discharged Performed By: #### L 100.0100, L500.2500 ####[facility] [address] [place], [address] WBC Normal 4.4-11.0 [facility] Comment on above: Result Comment: Canc elled via OM: Order cancelled - Patient discharged Performed By: #### L 100.0100, L500.2500 ####[facility] [address] [place], [address] Basic Metabolic Profile (BMP )on 10-15-2024 BUN Normal 7-18 [facility] Comment on above: Result Comment: Canc elled via OM: Order cancelled - Patient discharged Performed By: #### L 100.0100, L500.2500 ####[facility] [address] [place], [address] BUN/CRE Normal 10-20 [facility] Comment on above: Result Comment: Canc elled via OM: Order cancelled - Patient discharged Performed By: #### L 100.0100, L500.2500 ####[facility] [address] [place], [address] CA,Total Normal 8.5-10.1 [facility] Comment on above: Result Comment: Canc elled via OM: Order cancelled - Patient discharged Performed By: #### L 100.0100, L500.2500 ####[facility] [address] [place], [address] CL Normal 98-107 [facility] Comment on above: Result Comment: Canc elled via OM: Order cancelled - Patient discharged Performed By: #### L 100.0100, L500.2500 ####[facility] [address] [place], [address] CO2 Normal 21.0-32.0 [facility] Comment on above: Result Comment: Canc elled via OM: Order cancelled - Patient discharged Performed By: #### L 100.0100, L500.2500 ####[facility] [address] [place], [address] CREAT,SERUM Normal 0.70-1.30 [facility] Comment on above: Result Comment: Canc elled via OM: Order cancelled - Patient discharged Performed By: #### L 100.0100, L500.2500 ####[facility] [address] [place], [address] EST GFR Normal >60 [facility] Comment on above: Result Comment: Canc elled via OM: Order cancelled - Patient discharged Performed By: #### L 100.0100, L500.2500 ####[facility] [address] [place], [address] EST GFR - AA Normal >60 [facility] Comment on above: Result Comment: Canc elled via OM: Order cancelled - Patient discharged Performed By: #### L 100.0100, L500.2500 ####[facility] [address] [place], [address] GAP Normal 5-15 [facility] Comment on above: Result Comment: Canc elled via OM: Order cancelled - Patient discharged Performed By: #### L 100.0100, L500.2500 ####[facility] [address] [place], [address] GLU Normal 74-106 [facility] Comment on above: Result Comment: Canc elled via OM: Order cancelled - Patient discharged Performed By: #### L 100.0100, L500.2500 ####[facility] [address] [place], [address] Potassium Normal 3.5-5.1 [facility] Comment on above: Result Comment: Canc elled via OM: Order cancelled - Patient discharged Performed By: #### L 100.0100, L500.2500 ####[facility] [address] [place], [address] Basic Metabolic Profile (BMP) Normal 136-145 [facility] Comment on above: Result Comment: Canc elled via OM: Order cancelled - Patient discharged Performed By: #### L 100.0100, L500.2500 ####[facility] [address] [place], [address] CBC W/Diff, Automatedon 12-0 -2023 Absolute Neut Normal 2.0-7.7 [facility] Comment on above: Result Comment: Canc elled via OM: Order cancelled - Patient discharged Performed By: #### L 100.0100, L500.2500 ####[facility] [address] [place], [address] HCT Normal 40-54 [facility] Comment on above: Result Comment: Canc elled via OM: Order cancelled - Patient discharged Performed By: #### L 100.0100, L500.2500 ####[facility] [address] [place], [address] HGB Normal 13.0-16.5 [facility] Comment on above: Result Comment: Canc elled via OM: Order cancelled - Patient discharged Performed By: #### L 100.0100, L500.2500 ####[facility] [address] [place], [address] MCH Normal 27.0-32.0 [facility] Comment on above: Result Comment: Canc elled via OM: Order cancelled - Patient discharged Performed By: #### L 100.0100, L500.2500 ####[facility] [address] [place], [address] MCHC Normal 32-36 [facility] Comment on above: Result Comment: Canc elled via OM: Order cancelled - Patient discharged Performed By: #### L 100.0100, L500.2500 ####[facility] [address] [place], [address] MCV Normal 80-94 [facility] Comment on above: Result Comment: Canc elled via OM: Order cancelled - Patient discharged Performed By: #### L 100.0100, L500.2500 ####[facility] [address] [place], [address] NEUT% Normal 47-70 [facility] Comment on above: Result Comment: Canc elled via OM: Order cancelled - Patient discharged Performed By: #### L 100.0100, L500.2500 ####[facility] [address] [place], [address] PLT Normal 150-450 [facility] Comment on above: Result Comment: Canc elled via OM: Order cancelled - Patient discharged Performed By: #### L 100.0100, L500.2500 ####[facility] [address] [place], [address] RBC Normal 4.6-6.2 [facility] Comment on above: Result Comment: Canc elled via OM: Order cancelled - Patient discharged Performed By: #### L 100.0100, L500.2500 ####[facility] [address] [place], [address] RDW CV Normal 11.6-14.6 [facility] Comment on above: Result Comment: Canc elled via OM: Order cancelled - Patient discharged Performed By: #### L 100.0100, L500.2500 ####[facility] [address] [place], [address] RDW SD Normal 35.1-43.9 [facility] Comment on above: Result Comment: Canc elled via OM: Order cancelled - Patient discharged Performed By: #### L 100.0100, L500.2500 ####[facility] [address] [place], [address] WBC Normal 4.4-11.0 [facility] Comment on above: Result Comment: Canc elled via OM: Order cancelled - Patient discharged Performed By: #### L 100.0100, L500.2500 ####[facility] [address] [place], [address] RESPIRATORY PANEL MOLECULARo n 10-15-2024 RP PANEL Normal [facility] Comment on above: Performed By: #### M 100.638 ####[facility] [address] [place], [address] Basic Metabolic Profile (BMP )on 10-14-2024 BUN Normal 7-18 [facility] Comment on above: Result Comment: Canc elled via OM: Order cancelled - Patient discharged Performed By: #### L 100.0100, L500.2500 ####[facility] [address] [place], [address] BUN/CRE Normal 10-20 [facility] Comment on above: Result Comment: Canc elled via OM: Order cancelled - Patient discharged Performed By: #### L 100.0100, L500.2500 ####[facility] [address] [place], [address] CA,Total Normal 8.5-10.1 [facility] Comment on above: Result Comment: Canc elled via OM: Order cancelled - Patient discharged Performed By: #### L 100.0100, L500.2500 ####[facility] [address] [place], [address] CL Normal 98-107 [facility] Comment on above: Result Comment: Canc elled via OM: Order cancelled - Patient discharged Performed By: #### L 100.0100, L500.2500 ####[facility] [address] [place], [address] CO2 Normal 21.0-32.0 [facility] Comment on above: Result Comment: Canc elled via OM: Order cancelled - Patient discharged Performed By: #### L 100.0100, L500.2500 ####[facility] [address] [place], [address] CREAT,SERUM Normal 0.70-1.30 [facility] Comment on above: Result Comment: Canc elled via OM: Order cancelled - Patient discharged Performed By: #### L 100.0100, L500.2500 ####[facility] [address] [place], [address] EST GFR Normal >60 [facility] Comment on above: Result Comment: Canc elled via OM: Order cancelled - Patient discharged Performed By: #### L 100.0100, L500.2500 ####[facility] [address] [place], [address] EST GFR - AA Normal >60 [facility] Comment on above: Result Comment: Canc elled via OM: Order cancelled - Patient discharged Performed By: #### L 100.0100, L500.2500 ####[facility] [address] [place], [address] GAP Normal 5-15 [facility] Comment on above: Result Comment: Canc elled via OM: Order cancelled - Patient discharged Performed By: #### L 100.0100, L500.2500 ####[facility] [address] [place], [address] GLU Normal 74-106 [facility] Comment on above: Result Comment: Canc elled via OM: Order cancelled - Patient discharged Performed By: #### L 100.0100, L500.2500 ####[facility] [address] [place], [address] Potassium Normal 3.5-5.1 [facility] Comment on above: Result Comment: Canc elled via OM: Order cancelled - Patient discharged Performed By: #### L 100.0100, L500.2500 ####[facility] [address] [place], [address] Basic Metabolic Profile (BMP) Normal 136-145 [facility] Comment on above: Result Comment: Canc elled via OM: Order cancelled - Patient discharged Performed By: #### L 100.0100, L500.2500 ####[facility] [address] [place], [address] CBC W/Diff, Automatedon 12-0 -2023 Absolute Neut Normal 2.0-7.7 [facility] Comment on above: Result Comment: Canc elled via OM: Order cancelled - Patient discharged Performed By: #### L 100.0100, L500.2500 ####[facility] [address] [place], [address] HCT Normal 40-54 [facility] Comment on above: Result Comment: Canc elled via OM: Order cancelled - Patient discharged Performed By: #### L 100.0100, L500.2500 ####[facility] [address] [place], [address] HGB Normal 13.0-16.5 [facility] Comment on above: Result Comment: Canc elled via OM: Order cancelled - Patient discharged Performed By: #### L 100.0100, L500.2500 ####[facility] [address] [place], [address] MCH Normal 27.0-32.0 [facility] Comment on above: Result Comment: Canc elled via OM: Order cancelled - Patient discharged Performed By: #### L 100.0100, L500.2500 ####[facility] [address] [place], [address] MCHC Normal 32-36 [facility] Comment on above: Result Comment: Canc elled via OM: Order cancelled - Patient discharged Performed By: #### L 100.0100, L500.2500 ####[facility] [address] [place], [address] MCV Normal 80-94 [facility] Comment on above: Result Comment: Canc elled via OM: Order cancelled - Patient discharged Performed By: #### L 100.0100, L500.2500 ####[facility] [address] [place], [address] NEUT% Normal 47-70 [facility] Comment on above: Result Comment: Canc elled via OM: Order cancelled - Patient discharged Performed By: #### L 100.0100, L500.2500 ####[facility] [address] [place], [address] PLT Normal 150-450 [facility] Comment on above: Result Comment: Canc elled via OM: Order cancelled - Patient discharged Performed By: #### L 100.0100, L500.2500 ####[facility] [address] [place], [address] RBC Normal 4.6-6.2 [facility] Comment on above: Result Comment: Canc elled via OM: Order cancelled - Patient discharged Performed By: #### L 100.0100, L500.2500 ####[facility] [address] [place], [address] RDW CV Normal 11.6-14.6 [facility] Comment on above: Result Comment: Canc elled via OM: Order cancelled - Patient discharged Performed By: #### L 100.0100, L500.2500 ####[facility] [address] [place], [address] RDW SD Normal 35.1-43.9 [facility] Comment on above: Result Comment: Canc elled via OM: Order cancelled - Patient discharged Performed By: #### L 100.0100, L500.2500 ####[facility] [address] [place], [address] WBC Normal 4.4-11.0 [facility] Comment on above: Result Comment: Canc elled via OM: Order cancelled - Patient discharged Performed By: #### L 100.0100, L500.2500 ####[facility] [address] [place], [address] 12 Lead EKGon 10-13-2024 12 Lead EKG Normal [facility] Basic Metabolic Profile (BMP )on 10-13-2024 BUN/CRE 19.6 RATIO Normal 10-20 [facility] Comment on above: Performed By: #### L 100.0100, L500.2500 ####[facility] [address] [place], [address] CA,Total 9.0 mg/dL Normal 8.5-10.1 [facility] Comment on above: Performed By: #### L 100.0100, L500.2500 ####[facility] [address] [place], [address] Chloride [Moles/Vol] 104 mmol/L Normal 98-107 [facility] Comment on above: Performed By: #### L 100.0100, L500.2500 ####[facility] [address] [place], [address] CO2 [Moles/Vol] 28.0 mmol/L Normal 21.0-32.0 [facility] Comment on above: Performed By: #### L 100.0100, L500.2500 ####[facility] [address] [place], [address] Creatinine [Mass/Vol] 1.02 mg/dL Normal 0.70-1.30 [facility] Comment on above: Result Comment: The validity of the calculated GFR GFRAA in patients over70 years has not been determined. Clinical correlation isessential. Performed By: #### L 100.0100, L500.2500 ####[facility] [address] [place], [address] ECRCL 55.02 ml/min Normal [facility] Comment on above: Performed By: #### L 100.0100, L500.2500 ####[facility] [address] [place], [address] EST GFR - AA 89 mL/min Normal >60 [facility] Comment on above: Result Comment: Afri can Japanese GFR Calc Performed By: #### L 100.0100, L500.2500 ####[facility] [address] [place], [address] GAP 8 Normal 5-15 [facility] Comment on above: Performed By: #### L 100.0100, L500.2500 ####[facility] [address] [place], [address] GFR/1.73 sq M.predicted among non-blacks MDRD (S/P/Bld) [Vol rate/Area] 73 mL/min/{1.73_m2} Normal >60 [facility] Comment on above: Result Comment: Non- GFR Calc Performed By: #### L 100.0100, L500.2500 ####[facility] [address] [place], [address] Glucose [Mass/Vol] 106 mg/dL Normal 74-106 [facility] Comment on above: Result Comment: Fast ing Glucose result from 100 to 125 mg/dLsuggests IMPAIRED HOMEOSTASIS per A.D.A. criteria. Performed By: #### L 100.0100, L500.2500 ####[facility] [address] [place], [address] Potassium [Moles/Vol] 3.3 mmol/L Low 3.5-5.1 [facility] Comment on above: Performed By: #### L 100.0100, L500.2500 ####[facility] [address] [place], [address] Sodium [Moles/Vol] 139 mmol/L Normal 136-145 [facility] Comment on above: Performed By: #### L 100.0100, L500.2500 ####[facility] [address] [place], [address] Urea nitrogen [Mass/Vol] 20 mg/dL High 7-18 [facility] Comment on above: Performed By: #### L 100.0100, L500.2500 ####[facility] [address] [place], [address] Bedside Glucoseon 10-13-2024 FINGERSTICK GLU 83 mg/dL Normal 74-106 [facility] Comment on above: Result Comment: JOSE GEMENT OF PATIENT CARE PER NURSING PROTOCOL Performed By: #### L 501.080 ####[facility] [address] [place], [address] FINGERSTICK GLU 166 mg/dL High 74-106 [facility] Comment on above: Result Comment: JOSE GEMENT OF PATIENT CARE PER NURSING PROTOCOL Performed By: #### L 501.080 ####[facility] [address] [place], [address] CBC W/Diff, Automatedon 12- Absolute Lymph 1.23 X10 3/uL Normal 0.83-4.51 [facility] Comment on above: Performed By: #### L 100.0100, L500.2500 ####[facility] [address] [place], [address] Absolute Neut 5.3 X10 3/uL Normal 2.0-7.7 [facility] Comment on above: Performed By: #### L 100.0100, L500.2500 ####[facility] [address] [place], [address] Basophils/100 WBC (Bld) 0.4 % Normal 0-1 [facility] Comment on above: Performed By: #### L 100.0100, L500.2500 ####[facility] [address] [place], [address] Eosinophils/100 WBC (Bld) 4.2 % Normal 0-5 [facility] Comment on above: Performed By: #### L 100.0100, L500.2500 ####[facility] [address] [place], [address] Erythrocyte distribution width (RBC) [Ratio] 13.8 % Normal 11.6-14.6 [facility] Comment on above: Performed By: #### L 100.0100, L500.2500 ####[facility] [address] [place], [address] Hematocrit (Bld) [Volume fraction] 35.0 % Low 40-54 [facility] Comment on above: Performed By: #### L 100.0100, L500.2500 ####[facility] [address] [place], [address] Hemoglobin (Bld) [Mass/Vol] 11.7 g/dL Low 13.0-16.5 [facility] Comment on above: Performed By: #### L 100.0100, L500.2500 ####[facility] [address] [place], [address] IG% 0.400 Normal 0.0-0.9 [facility] Comment on above: Result Comment: IG% - Immature Granulocytes (promyelocytes, myelocytes andmetamyelocytes) > 1% indicates that a LEFT SHIFT is Present. Performed By: #### L 100.0100, L500.2500 ####[facility] [address] [place], [address] Lymphocytes/100 WBC (Bld) 16.1 % Low 19-41 [facility] Comment on above: Performed By: #### L 100.0100, L500.2500 ####[facility] [address] [place], [address] MCH (RBC) [Entitic mass] 30.3 pg Normal 27.0-32.0 [facility] Comment on above: Performed By: #### L 100.0100, L500.2500 ####[facility] [address] [place], [address] MCHC (RBC) [Mass/Vol] 33.4 g/dL Normal 32-36 [facility] Comment on above: Performed By: #### L 100.0100, L500.2500 ####[facility] [address] [place], [address] MCV (RBC) [Entitic vol] 90.7 fL Normal 80-94 [facility] Comment on above: Performed By: #### L 100.0100, L500.2500 ####[facility] [address] [place], [address] Monocytes/100 WBC (Bld) 9.3 % Normal 0-10 [facility] Comment on above: Performed By: #### L 100.0100, L500.2500 ####[facility] [address] [place], [address] Neutrophils/100 WBC (Bld) 69.6 % Normal 47-70 [facility] Comment on above: Performed By: #### L 100.0100, L500.2500 ####[facility] [address] [place], [address] Nucleated RBC (Bld) [#/Vol] 0 10*3/uL Normal 0-5 [facility] Comment on above: Performed By: #### L 100.0100, L500.2500 ####[facility] [address] [place], [address] Platelet mean volume (Bld) [Entitic vol] 10.9 fL Normal 6.2-12.0 [facility] Comment on above: Performed By: #### L 100.0100, L500.2500 ####[facility] [address] [place], [address] Platelets (Bld) [#/Vol] 133 10*3/uL Low 150-450 [facility] Comment on above: Performed By: #### L 100.0100, L500.2500 ####[facility] [address] [place], [address] RBC (Bld) [#/Vol] 3.86 10*6/uL Low 4.6-6.2 [facility] Comment on above: Performed By: #### L 100.0100, L500.2500 ####[facility] [address] [place], [address] RDW SD 45.5 fl High 35.1-43.9 [facility] Comment on above: Performed By: #### L 100.0100, L500.2500 ####[facility] [address] [place], [address] WBC (Bld) [#/Vol] 7.6 10*3/uL Normal 4.4-11.0 [facility] Comment on above: Performed By: #### L 100.0100, L500.2500 ####[facility] [address] [place], [address] Discharge Instructionon 12-[address] [facility] 12 Lead EKGon 10-12-2024 12 Lead EKG Normal [facility] Basic Metabolic Profile (BMP )on 10-12-2024 BUN/CRE 14.7 RATIO Normal 10-20 [facility] Comment on above: Performed By: #### L 100.0100, L500.2500, L501.9985, L501.5200, L300.3900, L501.2300, L501.9520, L500.4050, L500.3400 ####[facility] [address] [place], [address] CA,Total 9.3 mg/dL Normal 8.5-10.1 [facility] Comment on above: Performed By: #### L 100.0100, L500.2500, L501.9985, L501.5200, L300.3900, L501.2300, L501.9520, L500.4050, L500.3400 ####[facility] [address] [place], [address] Chloride [Moles/Vol] 104 mmol/L Normal 98-107 [facility] Comment on above: Performed By: #### L 100.0100, L500.2500, L501.9985, L501.5200, L300.3900, L501.2300, L501.9520, L500.4050, L500.3400 ####[facility] [address] [place], [address] CO2 [Moles/Vol] 28.0 mmol/L Normal 21.0-32.0 [facility] Comment on above: Performed By: #### L 100.0100, L500.2500, L501.9985, L501.5200, L300.3900, L501.2300, L501.9520, L500.4050, L500.3400 ####[facility] [address] [place], [address] Creatinine [Mass/Vol] 1.16 mg/dL Normal 0.70-1.30 [facility] Comment on above: Result Comment: The validity of the calculated GFR GFRAA in patients over70 years has not been determined. Clinical correlation isessential. Performed By: #### L 100.0100, L500.2500, L501.9985, L501.5200, L300.3900, L501.2300, L501.9520, L500.4050, L500.3400 ####[facility] [address] [place], [address] ECRCL 43.41 ml/min Normal [facility] Comment on above: Performed By: #### L 100.0100, L500.2500, L501.9985, L501.5200, L300.3900, L501.2300, L501.9520, L500.4050, L500.3400 ####[facility] [address] [place], [place], [id number] EST GFR - AA 77 mL/min Normal >60 [facility] Comment on above: Result Comment: Afri can Japanese GFR Calc Performed By: #### L 100.0100, L500.2500, L501.9985, L501.5200, L300.3900, L501.2300, L501.9520, L500.4050, L500.3400 ####[facility] [address] [place], [place], [id number] GAP 7 Normal 5-15 [facility] Comment on above: Performed By: #### L 100.0100, L500.2500, L501.9985, L501.5200, L300.3900, L501.2300, L501.9520, L500.4050, L500.3400 ####[facility] [address] [place], [place], [id number] GFR/1.73 sq M.predicted among non-blacks MDRD (S/P/Bld) [Vol rate/Area] 63 mL/min/{1.73_m2} Normal >60 [facility] Comment on above: Result Comment: Non- GFR Calc Performed By: #### L 100.0100, L500.2500, L501.9985, L501.5200, L300.3900, L501.2300, L501.9520, L500.4050, L500.3400 ####[facility] [address] [place], [place], [id number] Glucose [Mass/Vol] 153 mg/dL High 74-106 [facility] Comment on above: Result Comment: Fast ing Glucose result greater than or equal to 126 mg/dLsuggests DIABETES MELLITUS per A.D.A. criteria. Performed By: #### L 100.0100, L500.2500, L501.9985, L501.5200, L300.3900, L501.2300, L501.9520, L500.4050, L500.3400 ####[facility] [address] [place], [address] Potassium [Moles/Vol] 3.5 mmol/L Normal 3.5-5.1 [facility] Comment on above: Performed By: #### L 100.0100, L500.2500, L501.9985, L501.5200, L300.3900, L501.2300, L501.9520, L500.4050, L500.3400 ####[facility] [address] [place], [address] Sodium [Moles/Vol] 140 mmol/L Normal 136-145 [facility] Comment on above: Performed By: #### L 100.0100, L500.2500, L501.9985, L501.5200, L300.3900, L501.2300, L501.9520, L500.4050, L500.3400 ####[facility] [address] [place], [address] Urea nitrogen [Mass/Vol] 17 mg/dL Normal 7-18 [facility] Comment on above: Performed By: #### L 100.0100, L500.2500, L501.9985, L501.5200, L300.3900, L501.2300, L501.9520, L500.4050, L500.3400 ####[facility] [address] [place], [address] Bedside Glucoseon 10-12-2024 FINGERSTICK GLU 92 mg/dL Normal 74-106 [facility] Comment on above: Result Comment: JOSE GEMENT OF PATIENT CARE PER NURSING PROTOCOL Performed By: #### L 501.080 ####[facility] [address] [place], [address] FINGERSTICK GLU 131 mg/dL High 74-106 [facility] Comment on above: Result Comment: JOSE GEMENT OF PATIENT CARE PER NURSING PROTOCOL Performed By: #### L 501.080 ####[facility] [address] [place], [address] FINGERSTICK GLU 176 mg/dL High 74-106 [facility] Comment on above: Result Comment: JOSE GEMENT OF PATIENT CARE PER NURSING PROTOCOL Performed By: #### L 501.080 ####[facility] [address] [place], [address] FINGERSTICK GLU 177 mg/dL High 74-106 [facility] Comment on above: Result Comment: JOSE GEMENT OF PATIENT CARE PER NURSING PROTOCOL Performed By: #### L 501.080 ####[facility] [address] [place], [address] FINGERSTICK GLU 164 mg/dL High 74-106 [facility] Comment on above: Result Comment: JOSE GEMENT OF PATIENT CARE PER NURSING PROTOCOL Performed By: #### L 501.080 ####[facility] [address] [place], [address] CBC W/Diff, Automatedon 11-3 0-2024 Absolute Lymph 1.40 X10 3/uL Normal 0.83-4.51 [facility] Comment on above: Performed By: #### L 100.0100, L500.2500, L501.9985, L501.5200, L300.3900, L501.2300, L501.9520, L500.4050, L500.3400 ####[facility] [address] [place], [address] Absolute Neut 8.1 X10 3/uL High 2.0-7.7 [facility] Comment on above: Performed By: #### L 100.0100, L500.2500, L501.9985, L501.5200, L300.3900, L501.2300, L501.9520, L500.4050, L500.3400 ####[facility] [address] [place], [address] Basophils/100 WBC (Bld) 0.6 % Normal 0-1 [facility] Comment on above: Performed By: #### L 100.0100, L500.2500, L501.9985, L501.5200, L300.3900, L501.2300, L501.9520, L500.4050, L500.3400 ####[facility] [address] [place], [address] Eosinophils/100 WBC (Bld) 1.3 % Normal 0-5 [facility] Comment on above: Performed By: #### L 100.0100, L500.2500, L501.9985, L501.5200, L300.3900, L501.2300, L501.9520, L500.4050, L500.3400 ####[facility] [address] [place], [address] Erythrocyte distribution width (RBC) [Ratio] 13.8 % Normal 11.6-14.6 [facility] Comment on above: Performed By: #### L 100.0100, L500.2500, L501.9985, L501.5200, L300.3900, L501.2300, L501.9520, L500.4050, L500.3400 ####[facility] [address] [place], [address] Hematocrit (Bld) [Volume fraction] 37.9 % Low 40-54 [facility] Comment on above: Performed By: #### L 100.0100, L500.2500, L501.9985, L501.5200, L300.3900, L501.2300, L501.9520, L500.4050, L500.3400 ####[facility] [address] [place], [address] Hemoglobin (Bld) [Mass/Vol] 12.4 g/dL Low 13.0-16.5 [facility] Comment on above: Performed By: #### L 100.0100, L500.2500, L501.9985, L501.5200, L300.3900, L501.2300, L501.9520, L500.4050, L500.3400 ####[facility] [address] [place], [address] IG% 0.400 Normal 0.0-0.9 [facility] Comment on above: Result Comment: IG% - Immature Granulocytes (promyelocytes, myelocytes andmetamyelocytes) > 1% indicates that a LEFT SHIFT is Present. Performed By: #### L 100.0100, L500.2500, L501.9985, L501.5200, L300.3900, L501.2300, L501.9520, L500.4050, L500.3400 ####[facility] [address] [place], [address] Lymphocytes/100 WBC (Bld) 13.2 % Low 19-41 [facility] Comment on above: Performed By: #### L 100.0100, L500.2500, L501.9985, L501.5200, L300.3900, L501.2300, L501.9520, L500.4050, L500.3400 ####[facility] [address] [place], [address] MCH (RBC) [Entitic mass] 29.5 pg Normal 27.0-32.0 [facility] Comment on above: Performed By: #### L 100.0100, L500.2500, L501.9985, L501.5200, L300.3900, L501.2300, L501.9520, L500.4050, L500.3400 ####[facility] [address] [place], [address] MCHC (RBC) [Mass/Vol] 32.7 g/dL Normal 32-36 [facility] Comment on above: Performed By: #### L 100.0100, L500.2500, L501.9985, L501.5200, L300.3900, L501.2300, L501.9520, L500.4050, L500.3400 ####[facility] [address] [place], [address] MCV (RBC) [Entitic vol] 90.0 fL Normal 80-94 [facility] Comment on above: Performed By: #### L 100.0100, L500.2500, L501.9985, L501.5200, L300.3900, L501.2300, L501.9520, L500.4050, L500.3400 ####[facility] [address] [place], [address] Monocytes/100 WBC (Bld) 8.6 % Normal 0-10 [facility] Comment on above: Performed By: #### L 100.0100, L500.2500, L501.9985, L501.5200, L300.3900, L501.2300, L501.9520, L500.4050, L500.3400 ####[facility] [address] [place], [address] Neutrophils/100 WBC (Bld) 75.9 % High 47-70 [facility] Comment on above: Performed By: #### L 100.0100, L500.2500, L501.9985, L501.5200, L300.3900, L501.2300, L501.9520, L500.4050, L500.3400 ####[facility] [address] [place], [address] Nucleated RBC (Bld) [#/Vol] 0 10*3/uL Normal 0-5 [facility] Comment on above: Performed By: #### L 100.0100, L500.2500, L501.9985, L501.5200, L300.3900, L501.2300, L501.9520, L500.4050, L500.3400 ####[facility] [address] [place], [place], [phone] Platelet mean volume (Bld) [Entitic vol] 10.9 fL Normal 6.2-12.0 [facility] Comment on above: Performed By: #### L 100.0100, L500.2500, L501.9985, L501.5200, L300.3900, L501.2300, L501.9520, L500.4050, L500.3400 ####[facility] [address] [place], [phone] Platelets (Bld) [#/Vol] 158 10*3/uL Normal 150-450 [facility] Comment on above: Performed By: #### L 100.0100, L500.2500, L501.9985, L501.5200, L300.3900, L501.2300, L501.9520, L500.4050, L500.3400 ####[facility] [address] [place], [address] RBC (Bld) [#/Vol] 4.21 10*6/uL Low 4.6-6.2 [facility] Comment on above: Performed By: #### L 100.0100, L500.2500, L501.9985, L501.5200, L300.3900, L501.2300, L501.9520, L500.4050, L500.3400 ####[facility] [address] [place], [address] RDW SD 44.8 fl High 35.1-43.9 [facility] Comment on above: Performed By: #### L 100.0100, L500.2500, L501.9985, L501.5200, L300.3900, L501.2300, L501.9520, L500.4050, L500.3400 ####[facility] [address] [place], [address] WBC (Bld) [#/Vol] 10.6 10*3/uL Normal 4.4-11.0 [facility] Comment on above: Performed By: #### L 100.0100, L500.2500, L501.9985, L501.5200, L300.3900, L501.2300, L501.9520, L500.4050, L500.3400 ####[facility] [address] [place], [address] Comprehensive Metabolic Prof ilon 10-12-2024 Albumin/Globulin [Mass ratio] 1.1 {ratio} Normal 0.9-2.4 [facility] Comment on above: Performed By: #### L 100.0100, L500.2500, L501.9985, L501.5200, L300.3900, L501.2300, L501.9520, L500.4050, L500.3400 ####[facility] [address] [place], [address] Hemoglobin A1con 10-12-2024 HbA1c (Bld) [Mass fraction] 6.0 % High 3.8-5.6 [facility] Comment on above: Result Comment: Norm al < 5.7 % Prediabetic 5.7 - 6.4 % Diabetic >or= 6.5 % Please note range changes. Performed By: #### L 100.0100, L500.2500, L501.9985, L501.5200, L300.3900, L501.2300, L501.9520, L500.4050, L500.3400 ####[facility] [address] [place], [place], [id number] Liver Profileon 10-12-2024 Albumin [Mass/Vol] 3.7 g/dL Normal 3.2-5.0 [facility] Comment on above: Performed By: #### L 100.0100, L500.2500, L501.9985, L501.5200, L300.3900, L501.2300, L501.9520, L500.4050, L500.3400 ####[facility] [address] [place], [address] ALK P 89 U/L Normal 45-117 [facility] Comment on above: Performed By: #### L 100.0100, L500.2500, L501.9985, L501.5200, L300.3900, L501.2300, L501.9520, L500.4050, L500.3400 ####[facility] [address] [place], [address] ALT [Catalytic activity/Vol] 26 U/L Normal 16-61 [facility] Comment on above: Performed By: #### L 100.0100, L500.2500, L501.9985, L501.5200, L300.3900, L501.2300, L501.9520, L500.4050, L500.3400 ####[facility] [address] [place], [address] AST [Catalytic activity/Vol] 54 U/L High 15-37 [facility] Comment on above: Performed By: #### L 100.0100, L500.2500, L501.9985, L501.5200, L300.3900, L501.2300, L501.9520, L500.4050, L500.3400 ####[facility] [address] [place], [address] Bilirubin [Mass/Vol] 1.40 mg/dL High 0.20-1.00 [facility] Comment on above: Result Comment: For patients on eltrombopag therapy, use of Dimension [place] TBIL is not recommended. Performed By: #### L 100.0100, L500.2500, L501.9985, L501.5200, L300.3900, L501.2300, L501.9520, L500.4050, L500.3400 ####[facility] [address] [place], [place], [phone] Bilirubin.direct [Mass/Vol] 0.41 mg/dL High 0.00-0.30 [facility] Comment on above: Performed By: #### L 100.0100, L500.2500, L501.9985, L501.5200, L300.3900, L501.2300, L501.9520, L500.4050, L500.3400 ####[facility] [address] [place], [place], [phone] Globulin (S) [Mass/Vol] 3.5 g/dL Normal 2.2-4.2 [facility] Comment on above: Performed By: #### L 100.0100, L500.2500, L501.9985, L501.5200, L300.3900, L501.2300, L501.9520, L500.4050, L500.3400 ####[facility] [address] [place], [place], [phone] PROT 7.2 g/dL Normal 6.4-8.2 [facility] Comment on above: Performed By: #### L 100.0100, L500.2500, L501.9985, L501.5200, L300.3900, L501.2300, L501.9520, L500.4050, L500.3400 ####[facility] [address] [place], [place], [address] Magnesiumon 10-12-2024 Magnesium [Mass/Vol] 2.4 mg/dL Normal 1.6-2.6 [facility] Comment on above: Performed By: #### L 100.0100, L500.2500, L501.9985, L501.5200, L300.3900, L501.2300, L501.9520, L500.4050, L500.3400 ####[facility] [address] [place], [address] Phosphoruson 10-12-2024 Phosphate [Mass/Vol] 3.6 mg/dL Normal 2.5-4.9 [facility] Comment on above: Performed By: #### L 100.0100, L500.2500, L501.9985, L501.5200, L300.3900, L501.2300, L501.9520, L500.4050, L500.3400 ####[facility] [address] [place], [address] Prothrombin Time w/INRon INR Coag (PPP) [Relative time] 1.4 {INR} Normal [facility] Comment on above: Performed By: #### L 100.0100, L500.2500, L501.9985, L501.5200, L300.3900, L501.2300, L501.9520, L500.4050, L500.3400 ####[facility] [address] [place], [address] PT Coag (PPP) [Time] 17.0 s High 11.7-14.9 [facility] Comment on above: Performed By: #### L 100.0100, L500.2500, L501.9985, L501.5200, L300.3900, L501.2300, L501.9520, L500.4050, L500.3400 ####[facility] [address] [place], [address] Thyroid Stim Hormone (TSH)on 10-12-2024 TSH 1.260 uIU/mL Normal 0.358-3.74 0 [facility] Comment on above: Performed By: #### L 100.0100, L500.2500, L501.9985, L501.5200, L300.3900, L501.2300, L501.9520, L500.4050, L500.3400 ####[facility] [address] [place], [address] 12 Lead EKGon 10-11-2024 12 Lead EKG Normal [facility] BNP,B-Type NATRIURETIC PEPTI Major 10-11-2024 Natriuretic peptide B (Bld) [Mass/Vol] 250.6 pg/mL High 0-100 [facility] Comment on above: Performed By: #### L 503.6620, L500.2500, L100.0100, L501.4020 ####[facility] [address] [place], [address] Basic Metabolic Profile (BMP )on 10-11-2024 BUN/CRE 16.3 RATIO Normal 10-20 [facility] Comment on above: Order Comment: 'TROP ' Serial specimen #1, #2 or #3: 1 Performed By: #### L 503.6620, L500.2500, L100.0100, L501.4020 ####[facility] [id number] [place], [address] CA,Total 9.2 mg/dL Normal 8.5-10.1 [facility] Comment on above: Order Comment: 'TROP ' Serial specimen #1, #2 or #3: 1 Performed By: #### L 503.6620, L500.2500, L100.0100, L501.4020 ####[facility] [id number] [place], [address] Chloride [Moles/Vol] 102 mmol/L Normal 98-107 [facility] Comment on above: Order Comment: 'TROP ' Serial specimen #1, #2 or #3: 1 Performed By: #### L 503.6620, L500.2500, L100.0100, L501.4020 ####[facility] [address] [place], [address] CO2 [Moles/Vol] 27.0 mmol/L Normal 21.0-32.0 [facility] Comment on above: Order Comment: 'TROP ' Serial specimen #1, #2 or #3: 1 Performed By: #### L 503.6620, L500.2500, L100.0100, L501.4020 ####[facility] [address] [place], [address] Creatinine [Mass/Vol] 1.23 mg/dL Normal 0.70-1.30 [facility] Comment on above: Order Comment: 'TROP ' Serial specimen #1, #2 or #3: 1 Result Comment: The validity of the calculated GFR GFRAA in patients over70 years has not been determined. Clinical correlation isessential. Performed By: #### L 503.6620, L500.2500, L100.0100, L501.4020 ####[facility] [address] [place], [address] ECRCL 46.75 ml/min Normal [facility] Comment on above: Order Comment: 'TROP ' Serial specimen #1, #2 or #3: 1 Performed By: #### L 503.6620, L500.2500, L100.0100, L501.4020 ####[facility] [address] [place], [address] EST GFR - AA 72 mL/min Normal >60 [facility] Comment on above: Order Comment: 'TROP ' Serial specimen #1, #2 or #3: 1 Result Comment: Afri can Japanese GFR Calc Performed By: #### L 503.6620, L500.2500, L100.0100, L501.4020 ####[facility] [address] [place], [address] GAP 8 Normal 5-15 [facility] Comment on above: Order Comment: 'TROP ' Serial specimen #1, #2 or #3: 1 Performed By: #### L 503.6620, L500.2500, L100.0100, L501.4020 ####[facility] [address] [place], [address] GFR/1.73 sq M.predicted among non-blacks MDRD (S/P/Bld) [Vol rate/Area] 59 mL/min/{1.73_m2} Low >60 [facility] Comment on above: Order Comment: 'TROP ' Serial specimen #1, #2 or #3: 1 Result Comment: Non- GFR Calc Performed By: #### L 503.6620, L500.2500, L100.0100, L501.4020 ####[facility] [address] [place], [address] Glucose [Mass/Vol] 149 mg/dL High 74-106 [facility] Comment on above: Order Comment: 'TROP ' Serial specimen #1, #2 or #3: 1 Result Comment: Fast ing Glucose result greater than or equal to 126 mg/dLsuggests DIABETES MELLITUS per A.D.A. criteria. Performed By: #### L 503.6620, L500.2500, L100.0100, L501.4020 ####[facility] [address] [place], [address] Potassium [Moles/Vol] 3.6 mmol/L Normal 3.5-5.1 [facility] Comment on above: Order Comment: 'TROP ' Serial specimen #1, #2 or #3: 1 Performed By: #### L 503.6620, L500.2500, L100.0100, L501.4020 ####[facility] [address] [place], [address] Sodium [Moles/Vol] 137 mmol/L Normal 136-145 [facility] Comment on above: Order Comment: 'TROP ' Serial specimen #1, #2 or #3: 1 Performed By: #### L 503.6620, L500.2500, L100.0100, L501.4020 ####[facility] [address] [place], [address] Urea nitrogen [Mass/Vol] 20 mg/dL High 7-18 [facility] Comment on above: Order Comment: 'TROP ' Serial specimen #1, #2 or #3: 1 Performed By: #### L 503.6620, L500.2500, L100.0100, L501.4020 ####[facility] [address] [place], [address] Bedside Glucoseon 10-11-2024 FINGERSTICK GLU 134 mg/dL High 74-106 [facility] Comment on above: Result Comment: JOSE GEMENT OF PATIENT CARE PER NURSING PROTOCOL Performed By: #### L 501.080 ####[facility] [address] [place], [address] FINGERSTICK GLU 149 mg/dL High 74-106 [facility] Comment on above: Result Comment: JOSE GEMENT OF PATIENT CARE PER NURSING PROTOCOL Performed By: #### L 501.080 ####[facility] [address] [place], [address] CBC W/Diff, Automatedon 11- Absolute Lymph 1.14 X10 3/uL Normal 0.83-4.51 [facility] Comment on above: Performed By: #### L 503.6620, L500.2500, L100.0100, L501.4020 ####[facility] [address] [place], [address] Absolute Neut 7.8 X10 3/uL High 2.0-7.7 [facility] Comment on above: Performed By: #### L 503.6620, L500.2500, L100.0100, L501.4020 ####[facility] [address] [place], [address] Basophils/100 WBC (Bld) 0.4 % Normal 0-1 [facility] Comment on above: Performed By: #### L 503.6620, L500.2500, L100.0100, L501.4020 ####[facility] [address] [place], [address] Eosinophils/100 WBC (Bld) 1.6 % Normal 0-5 [facility] Comment on above: Performed By: #### L 503.6620, L500.2500, L100.0100, L501.4020 ####[facility] [address] [place], [address] Erythrocyte distribution width (RBC) [Ratio] 13.6 % Normal 11.6-14.6 [facility] Comment on above: Performed By: #### L 503.6620, L500.2500, L100.0100, L501.4020 ####[facility] [address] [place], [address] Hematocrit (Bld) [Volume fraction] 40.2 % Normal 40-54 [facility] Comment on above: Performed By: #### L 503.6620, L500.2500, L100.0100, L501.4020 ####[facility] [address] [place], [address] Hemoglobin (Bld) [Mass/Vol] 13.3 g/dL Normal 13.0-16.5 [facility] Comment on above: Performed By: #### L 503.6620, L500.2500, L100.0100, L501.4020 ####[facility] [address] [place], [address] IG% 0.500 Normal 0.0-0.9 [facility] Comment on above: Result Comment: IG% - Immature Granulocytes (promyelocytes, myelocytes andmetamyelocytes) > 1% indicates that a LEFT SHIFT is Present. Performed By: #### L 503.6620, L500.2500, L100.0100, L501.4020 ####[facility] [address] [place], [address] Lymphocytes/100 WBC (Bld) 11.6 % Low 19-41 [facility] Comment on above: Performed By: #### L 503.6620, L500.2500, L100.0100, L501.4020 ####[facility] [address] [place], [address] MCH (RBC) [Entitic mass] 29.5 pg Normal 27.0-32.0 [facility] Comment on above: Performed By: #### L 503.6620, L500.2500, L100.0100, L501.4020 ####[facility] [address] [place], [address] MCHC (RBC) [Mass/Vol] 33.1 g/dL Normal 32-36 [facility] Comment on above: Performed By: #### L 503.6620, L500.2500, L100.0100, L501.4020 ####[facility] [address] [place], [address] MCV (RBC) [Entitic vol] 89.1 fL Normal 80-94 [facility] Comment on above: Performed By: #### L 503.6620, L500.2500, L100.0100, L501.4020 ####[facility] [address] [place], [address] Monocytes/100 WBC (Bld) 6.3 % Normal 0-10 [facility] Comment on above: Performed By: #### L 503.6620, L500.2500, L100.0100, L501.4020 ####[facility] [address] [place], [address] Neutrophils/100 WBC (Bld) 79.6 % High 47-70 [facility] Comment on above: Performed By: #### L 503.6620, L500.2500, L100.0100, L501.4020 ####[facility] [address] [place], [address] Nucleated RBC (Bld) [#/Vol] 0 10*3/uL Normal 0-5 [facility] Comment on above: Performed By: #### L 503.6620, L500.2500, L100.0100, L501.4020 ####[facility] [address] [place], [address] Platelet mean volume (Bld) [Entitic vol] 10.0 fL Normal 6.2-12.0 [facility] Comment on above: Performed By: #### L 503.6620, L500.2500, L100.0100, L501.4020 ####[facility] [address] [place], [address] Platelets (Bld) [#/Vol] 155 10*3/uL Normal 150-450 [facility] Comment on above: Performed By: #### L 503.6620, L500.2500, L100.0100, L501.4020 ####[facility] [address] [place], [address] RBC (Bld) [#/Vol] 4.51 10*6/uL Low 4.6-6.2 [facility] Comment on above: Performed By: #### L 503.6620, L500.2500, L100.0100, L501.4020 ####[facility] [address] [place], [address] RDW SD 44.4 fl High 35.1-43.9 [facility] Comment on above: Performed By: #### L 503.6620, L500.2500, L100.0100, L501.4020 ####[facility] [address] [place], [address] WBC (Bld) [#/Vol] 9.8 10*3/uL Normal 4.4-11.0 [facility] Comment on above: Performed By: #### L 503.6620, L500.2500, L100.0100, L501.4020 ####[facility] [address] [place], [address] CNOVon 10-11-2024 CNOV Office Visit (UCWSTR ) OSVALDO LUCIO ([id number]) 1935 M Date Time Provider Department 10/11/24 10:45 AM KAMERON KELLEY [facility] During your visit today, we recorded the following information about you: Temperature Pulse Respiration Blood pressure 97.7 degrees 77/minute 22/minute 158/71 Weight 93.4 kg Kameron Kelley MD 10/11/2024 12:46 PM Signed Patient presents with: Cough: Chest congestion, wheezing, SOB x 2 weeks HPI: Coughing for 2 weeks. Initial head cold is improving but he has worsening cough, wheezing, and shortness of breath. Positive symptoms: Cough, Shortness of breath, Wheezing, Nasal Congestion, Rhinorrhea, chills, increased chronic intermittent right leg swelling, Negative symptoms: Fever, Nausea, Vomiting, Diarrhea, Chest pain, heart palpitations or racing, OTC: tylenol, flonase He has had a sore on the lower lip for about 1 month. It bleeds occasionally. 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 He has since 2006 had A1C values in the 5.7-6.1 range and is on medications and does follow any dietary regime. Two times in 2008, the value was 6.5 and 6.8%. I discussed this with him and will change to impaired glucose. 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 Per Dr. Lo tamsulosin (FLOMAX) 0.4 mg Take 2 capsules by mouth once daily. finasteride (PROSCAR) 5 mg tablet Take 1 tablet by mouth once daily. blood sugar diagnostic (BLOOD GLUCOSE TEST) test strip Test blood sugar(s) 2 times daily. Dx: Type 2 DM - Uncontrolled E11.65 Insulin: No doxepin capsule 50 mg Take 1 capsule by mouth daily at bedtime. [facility] mirtazapine (REMERON) 15 mg tablet Take 1 tablet by mouth daily at bedtime. [facility]. furosemide (LASIX) 40 mg tablet Take 40 mg by mouth two times a day. clonazePAM (KLONOPIN) 0.5 mg tablet Take 0.5 mg by mouth once daily as needed. busPIRone (BUSPAR) 15 mg tablet Take 1 tablet by mouth every 12 hours. Lancets lancets Test blood sugar(s) 2 times daily. Dx: Type 2 DM - Uncontrolled E11.65 Insulin: No melatonin 5 mg tablet Take 1 tablet by mouth daily at bedtime. amLODIPine (NORVASC) 10 mg tablet Take 1 tablet by mouth once daily. lisinopril (ZESTRIL, PRINIVIL) 20 mg tablet Take 1 tablet by mouth twice daily. metoprolol tartrate, short acting, (LOPRESSOR) 25 mg tablet Take 0.5 tablets by mouth twice daily. ferrous sulfate 325 mg (65 mg iron) tablet Take 325 mg by mouth twice daily. multivitamin with minerals (MULTI-VITAMIN W/MINERALS ORAL) Take 1 tablet by mouth once daily. apixaban (ELIQUIS) 2.5 mg tab tab(s) Take 1 tablet by mouth twice daily. atorvastatin (LIPITOR) 40 mg tablet Take 1 tablet by mouth once daily. No current facility-administered medications for this visit. ALLERGIES: ALLERGIES No Known Allergies VITALS: BP 158/71 Pulse 77 Temp 36.5 ?C (97.7 ?F) Resp 22 Wt 93.4 kg (205 lb 14.6 oz) SpO2 96% BMI 30.85 kg/m? Last 4 Encounter Wt Readings: Date: Wt: 10/11/2024 93.4 kg (205 lb 14.6 oz) 07/02/2024 86.7 kg (191 lb 2.2 oz) 03/04/2024 90.2 kg (198 lb 12.8 oz) 01/02/2024 87.1 kg (192 lb) PHYSICAL EXAM: GEN: Pleasant, in no acute distress. HEENT: PERRL, EOMI, conjunctiva clear Ears: canals clear. TMs without erythema, bulge, or effusion Sinuses: non-tender frontal sinus, non-tender maxillary sinuses LIP: right mid lower lip has 7mm irregular raised pigmented eschar lesion at the vermilion border Throat: moist mucous membranes, no erythema, no exudate Neck: supple, no thyromegaly, no lymphadenopathy HEART: normal rate, irregularly irregular rhythm, no murmurs LUNGS: bila (more content not included)... Normal [facility] CTA Chest W/WO Contraston CTA Chest W/WO Contrast Normal [facility] Chest 1 View (Portable)on Chest 1 View (Portable) Normal [facility] Echo Completeon 10-11-2024 Echo Complete Normal [facility] Emergency Department Summary on 10-11-2024 Emergency Department Summary Normal [facility] H AND P Exam - [facility] 10-11-2024 H&P Exam - Hospitalist Normal [facility] L501.4020on 10-11-2024 TROPONIN-I HS 34 pg/mL Normal 3.0-78.0 [facility] Comment on above: Order Comment: 'TROP ' Serial specimen #1, #2 or #3: 1 Result Comment: Plea se Note: New Test Units and Gender Specific Reference Ranges. For more information see Policy Stat Procedure [place] High Sensitivity Troponin (TNIH) and attachments. Performed By: #### L 503.6620, L500.2500, L100.0100, L501.4020 ####[facility] [address] [place], [address] XR CHEST 2V FRONTAL/LATon XR CHEST 2V FRONTAL/LAT * * *Final Report* * * DATE OF EXAM: Oct 11 2024 10:55AM WOX [id number] - XR CHEST 2V FRONTAL/LAT / PROCEDURE REASON: multiple diagnoses * * * * Physician Interpretation * * * * EXAMINATION: CHEST RADIOGRAPH (2 VIEW FRONTAL and LATERAL) CLINICAL HISTORY: Shortness of breath Subacute cough MQ: XC2_6 EXAM DATE/TIME: 10/11/2024 10:55 AM COMPARISON: Chest x-ray on 10/22/2018 RESULT: Lines, tubes, and devices: Status post aortic valve replacement Lungs and pleura: There are multiple hazy, patchy or nodular opacities in the bilateral mid to lower lung zones. Bilateral small pleural effusions are demonstrated, with fluid extending to the major fissure. No mass lesion identified. No pneumothorax. Cardiomediastinal silhouette: The cardiac silhouette is grossly stable, with tortuosity of the thoracic aorta. Bones and soft tissues: There are postoperative changes from median sternotomy. The spine shows degenerative changes. IMPRESSION: Findings are suggestive of pulmonary edema versus multifocal pneumonia. Please clinically correlate. Band Leader: JUANCHO Transcribe Date/Time: Oct 11 2024 11:26A Dictated by : LORENA CRUMP MD This examination was interpreted and the report reviewed and electronically signed by: LORENA CRUMP MD on Oct 11 2024 11:29AM EST [id number] Normal [facility] XR Chest PA and Lateralon IMPRESSION: Findings are suggestive of pulmonary edema versus multifocal pneumonia. Please clinically correlate. Band Leader: JUANCHO Transcribe Date/Time: Oct 11 2024 11:26A Dictated by : LORENA CRUMP MD This examination was interpreted and the report reviewed and electronically signed by: LORENA CRUMP MD on Oct 11 2024 11:29AM [facility] DIVISION OF RADIOLOGY * * *Final Report* * * DATE OF EXAM: Oct 11 2024 10:55AM WOX [id number] - XR CHEST 2V FRONTAL/LAT / PROCEDURE REASON: multiple diagnoses * * * * Physician Interpretation * * * * EXAMINATION: CHEST RADIOGRAPH (2 VIEW FRONTAL & LATERAL) CLINICAL HISTORY: Shortness of breath Subacute cough MQ: XC2_6 EXAM DATE/TIME: 10/11/2024 10:55 AM COMPARISON: Chest x-ray on 10/22/2018 RESULT: Lines, tubes, and devices: Status post aortic valve replacement Lungs and pleura: There are multiple hazy, patchy or nodular opacities in the bilateral mid to lower lung zones. Bilateral small pleural effusions are demonstrated, with fluid extending to the major fissure. No mass lesion identified. No pneumothorax. Cardiomediastinal silhouette: The cardiac silhouette is grossly stable, with tortuosity of the thoracic aorta. Bones and soft tissues: There are postoperative changes from median sternotomy. The spine shows degenerative changes. DIVISION OF RADIOLOGY Provider, [facility] - 10/11/2024 * * *Final Report* * * DATE OF EXAM: Oct 11 2024 10:55AM WOX [id number] - XR CHEST 2V FRONTAL/LAT / PROCEDURE REASON: multiple diagnoses * * * * Physician Interpretation * * * * EXAMINATION: CHEST RADIOGRAPH (2 VIEW FRONTAL & LATERAL) CLINICAL HISTORY: Shortness of breath Subacute cough MQ: XC2_6 EXAM DATE/TIME: 10/11/2024 10:55 AM COMPARISON: Chest x-ray on 10/22/2018 RESULT: Lines, tubes, and devices: Status post aortic valve replacement Lungs and pleura: There are multiple hazy, patchy or nodular opacities in the bilateral mid to lower lung zones. Bilateral small pleural effusions are demonstrated, with fluid extending to the major fissure. No mass lesion identified. No pneumothorax. Cardiomediastinal silhouette: The cardiac silhouette is grossly stable, with tortuosity of the thoracic aorta. Bones and soft tissues: There are postoperative changes from median sternotomy. The spine shows degenerative changes. IMPRESSION IMPRESSION: Findings are suggestive of pulmonary edema versus multifocal pneumonia. Please clinically correlate. Band Leader: JUANCHO Transcribe Date/Time: Oct 11 2024 11:26A Dictated by : LORENA CRUMP MD This examination was interpreted and the report reviewed and electronically signed by: LORENA CRUMP MD on Oct 11 2024 11:29AM EST [facility] Radiology Study observation (narrative) [facility] XR Chest PA and LateralOrder ed By: [facility] Provider on 10-11-2024 [facility] CNOVon 07-02-2024 CNOV Office Visit (INTMWS ) OSVALDO LUCIO ([id number]) 1935 M Date Time Provider Department 07/02/24 8:40 AM JEREMI MOREL INTMWS During your visit today, we recorded the following information about you: Temperature Pulse Respiration Blood pressure 97.9 degrees 72/minute 20/minute 126/68 Weight 86.7 kg Jeremi Morel MD 07/02/2024 9:04 AM Signed This note was created using [email or web address]. Subjective Osvaldo Lucio is a 89 year old male. He had no concerns. His diabetes mellitus was controlled. He just saw [facility]. He will see Dr. Garcia for foot care tomorrow. Bipolar mood disorder was controlled and [facility] were unchanged. Review of Systems Constitutional: Negative for fatigue and fever. Respiratory: Negative for cough and shortness of breath. Cardiovascular: Negative for chest pain, palpitations and leg swelling. Neurological: Negative for dizziness and headaches. ACTIVE PROBLEM LIST Essential Hypertension Hyperlipidemia Bipolar [...] Bmi 30-34.9 Personal History of Skin Cancer Pulmonary Hypertension (Hcc) Social History Tobacco Use Smoking status: Former Types: Cigars Smokeless tobacco: Never Vaping Use Vaping status: Never Used Substance Use Topics Alcohol use: Not Currently Comment: Quit Drug use: Never Current Outpatient Medications Medication Sig potassium chloride (K-TAB) 10 mEq tablet TAKE 2 (TWO) TABLETS BY MOUTH EVERY DAY insulin 50/50 lispro protamine-lispro units/mL (HUMALOG MIX 50-50 KWIKPEN) 100 unit/mL (50-50) pen Inject 30 units in the morning and 28 Units in the evenings with meals. Per Dr. Lo tamsulosin (FLOMAX) 0.4 mg Take 2 capsules by mouth once daily. finasteride (PROSCAR) 5 mg tablet Take 1 tablet by mouth once daily. blood sugar diagnostic (BLOOD GLUCOSE TEST) test strip Test blood sugar(s) 2 times daily. Dx: Type 2 DM - Uncontrolled E11.65 Insulin: No doxepin capsule 50 mg Take 1 capsule by mouth daily at bedtime. [facility]. mirtazapine (REMERON) 15 mg tablet Take 1 tablet by mouth daily at bedtime. [facility]. furosemide (LASIX) 40 mg tablet Take 40 mg by mouth two times a day. clonazePAM (KLONOPIN) 0.5 mg tablet Take 0.5 mg by mouth once daily as needed. busPIRone (BUSPAR) 15 mg tablet Take 1 tablet by mouth every 12 hours. Lancets lancets Test blood sugar(s) 2 times daily. Dx: Type 2 DM - Uncontrolled E11.65 Insulin: No melatonin 5 mg tablet Take 1 tablet by mouth daily at bedtime. amLODIPine (NORVASC) 10 mg tablet Take 1 tablet by mouth once daily. lisinopril (ZESTRIL, PRINIVIL) 20 mg tablet Take 1 tablet by mouth twice daily. metoprolol tartrate, short acting, (LOPRESSOR) 25 mg tablet Take 0.5 tablets by mouth twice daily. ferrous sulfate 325 mg (65 mg iron) tablet Take 325 mg by mouth twice daily. multivitamin with minerals (MULTI-VITAMIN W/MINERALS ORAL) Take 1 tablet by mouth once daily. apixaban (ELIQUIS) 2.5 mg tab tab(s) Take 1 tablet by mouth twice daily. atorvastatin (LIPITOR) 40 mg tablet Take 1 tablet by mouth once daily. No current facility-administered medications for this visit. Objective BP 126/68 (BP Site: Left Arm, BP Position: Sitting, BP Cuff Size: Large Adult) Pulse 72 Temp 36.6 ?C (97.9 ?F) (Temporal) Resp 20 Wt 86.7 kg (191 lb 2.2 oz) BMI 28.64 kg/m? Physical Exam Constitutional: Appearance: He is not ill-appearing. HENT: Head: Normocephalic. Cardiovascular: Rate and Rhythm: Normal rate. Rhythm irregular. Heart sounds: No murmur heard. No gallop. Pulmonary: Breath sounds: Normal breath sounds. Musculoskeletal: Right lower leg: No edema. Left lower leg: No edema. Neurological: Mental Status: He is alert. Gait: Gait normal. Psychiatric: Mood and Affect: Mood normal. Behavior: Behavior normal. Assessment and Plan 1. Type 2 diabetes mellitus with stage 3a chronic kidney disease, with long-term current use of insulin ([facility]) - ICD9: 250.40, 585.3, V58.67, ICD10: E11.22, N18.31, Z79.4 (primary diagnosis) - Controlled - Continue current medications per [facility]. - COMPREHENSIVE METABOLIC PANEL - ALBUMIN/CREATININE RATIO, URINE - HEMOGLOBIN A1C 2. Screening for depression - ICD9: V79.0, ICD10: Z13.31 Stable. - DEPRESSION SCREENING 3. Encounter for screening examination for other mental health and behavioral disorders - ICD9: V79.8, I (more content not included)... Normal [facility] CNOVon 03-04-2024 CNOV Office Visit (UROLWS ) OSVALDO LUCIO ([id number]) 1935 M Date Time Provider Department 03/04/24 9:30 AM MAXI FLORES During your visit today, we recorded the following information about you: Temperature Pulse Respiration Blood pressure 97.6 degrees 92/minute 14/minute 104/62 Weight Height 90.2 kg 1.74 m Mary Schmitt LPN 03/04/2024 9:53 AM Signed Verified name and date of . CC Post Void Residual HPI: Belia león is here now for an appointment with Niles German APRN, DNP Procedure: Explained procedure to patient and verbalizes understanding. Performed a PVR. Patient states he urinated right before visit and cannot use restroom at this time. Results of scan: 4 mL The patient tolerated the procedure well. Plan: Appointment with Maxi. Maxi Flores APRN.SAMMY PRAJAPATI 03/04/2024 9:53 AM Signed [facility] MALE PATIENT - HISTORY AND PHYSICAL EXAMINATION PATIENT: Osvaldo Lucio (88 year old) 09/25/2023 PCP: Jeremi Morel MD Est patient to Urology CHIEF COMPLAINT: BPH/LUTS follow up HISTORY OF PRESENT ILLNESS: 88 year old year old male with BPH/LUTS. Main complaint was urinary frequency. 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 Was admitted for approximately 3 days. During that time he did have an episode of acute urinary retention and did have to have an intermittent self cath at least 1 time. Upon discharge she was started on Proscar in the morning time in addition to his Flomax 0.8 mg that he takes for his prostate/BPH. Additionally he had Lasix and potassium ordered to his medication regimen. Started on Proscar during hospital stay. Since hospital discharge he states he is able to urinate at home without difficulty. Unable to provide a urine sample for us at this time. Denies feeling in AUR. Now on Proscar for the past 4 months. Hx of BPH: On Flomax to 0.8mg and Proscar. Feeling well. Denies SE. Overall feeling well. Happy with response. URINARY: DAYTIME FREQUENCY: Every 3 hours NIGHTTIME FREQUENCY: 0 IRRITATIVE - BOTHERSOME FREQUENCY: No - URGENCY: No - INCONTINENCE: Stress No / Urge: No OBSTRUCTIVE - FORCE OF STREAM: Average - HESITANCY: No - INTERMITTENCY: No - STRAINING: No - INCOMPLETE EMPTYING: No - DOUBLE VOIDING: No - POSTVOID DRIBBLING: No CURRENT URINARY STATUS: - INDWELLING CATHETER: No - CURRENT INTERMITTENT CATHETERIZATION: No - GROSS HEMATURIA: No - URINARY TRACT INFECTION: No Patient Entered Questionnaires: INTERNATIONAL PROSTATE SYMPTOM SCORE (I-PSS) PREVIOUS TOTAL IPSS SCORE: 9 QOL = 3 1. Incomplete emptying 1 2. Frequency 0 3. Intermittency 0 4. Urgency 0 5. Weak stream 0 6. Straining 0 7. Nocturia 0 TOTAL IPSS SCORE 1 QOL = 1 PROMIS Global Health 06/06/2017 PROMIS Global Health Scale Physical Health Percentile 41 Mental Health Percentile 43 Percentiles provide an indication of how the patient's score ranks in relation to the general population. Higher percentile rankings indicate better function/quality of life. 50th percentile is the average of the general population and indicates half of respondents had a worse score. HISTORY: PAST MEDICAL HISTORY Diagnosis Date Acute on chronic diastolic (congestive) heart failure ([facility]) 05/27/2019 Aortic stenosis 08/23/2012 Aortic valve replaced 01/01/2019 Benign prostatic hyperplasia with urinary frequency Bipolar disorder, unspecified ([facility]) BPH with urinary obstruction Chronic kidney disease (CKD), stage III (moderate) ([facility]) 03/12/2010 DM type 2 causing CKD stage 3 ([facility]) 07/30/2015 Dysuria Essential hypertension Frequency of urination Hyperlipidemia cholesterol 197 08/27/2012 [facility] Impaired glucose metabolism HGBA1C 6.1 08/27/2012 [facility]. He has since 2006 had A1C [...] BYPASS GRAFTS X USING THE LEFT INTERNAL MAMMAR (more content not included)... Normal [facility] CNOVon 01-02-2024 CNOV Office Visit (INTMWS ) OSVALDO LUCIO ([id number]) 1935 M Date Time Provider Department 01/02/24 8:00 AM MERCEDEZ CASTANEDA INTMWS During your visit today, we recorded the following information about you: Pulse Respiration Blood pressure Weight 86/minute 20/minute 134/74 87.1 kg Height 1.74 m Mercedez Castaneda, RECEPTIONIST TELEPHONE OPERATOR.SUPERVISOR HOT DIP TINNING 01/02/2024 8:25 AM Signed Osvaldo Lucio is a 88 year old male here for a Medicare wellness visit. Medicare Health Risk Assessment General Health Very good Exercise: Minutes/Day 10 min Exercise: Days/Week 7 days Alcohol: Daily Use Never Alcohol: Drinks/Day Patient does not drink Alcohol: 6 or more drinks Never Feel off balance No Concerns: Teeth/Dentures No Concerns: Sexual function No Troubled by feelings None of the above Frequency: Eating healthy diet More than half the days ADLs requiring help Cooking; Housework Safety precautions in home/vehicle Yes Smoke, vape, chews tobacco No Difficulty hearing No Difficulty seeing No Current Providers Specialists: I have reviewed specialist-related care of the patient in the medical record. Current care team: Patient Care Team: Jeremi Morel MD as PCP - General (Internal Medicine) [facility] [place] Outside specialists seen: [facility], Dr. Chandra Lo-endocrinology, [facility], [facility], [facility]iatry Medical/Family history review Reviewed and updated problem list, medical/surgical/family/soc ial history, medications, and allergies. Opioid use review Opioid Medications (last 90 days) Some values may be hidden. Unless noted otherwise, only the newest values recorded on each date are displayed. Opioid Medications No data to display. Depression screening Depression Screening PHQ-2 Score MARY-2 Total Score 01/02/2024 0 - Depression screening tool completed and reviewed. Based on score and interview, patient is already diagnosed with depression. Screening tool discussed with patient, and I recommended continuing current plan of care. Cognitive screening Mini Cog Score: 4 Cognitive screening reviewed and no further action needed (score 3-5) Functional Observation Was the patient's Timed Up AND Go test unsteady or ? 12 seconds? No Advance Care Planning Patient was not able to provide a surrogate decision maker or written advance directives Measurements BP 134/74 Pulse 86 Resp 20 Ht 5' 8.5" (1.74m) Wt 192 lb (87.1kg) BMI 28.77 kg/(m2). Additional screenings: No results found. Assessment/Plan Medicare annual wellness visit, subsequent () - Counseled on healthy diet and regular exercise - Fall avoidance information provided - Personalized prevention plan provided Additional Concerns The following concerns were also discussed with the patient: History of Afib, chronic CHF, CAD. Managed by cardiology including medications. Patient denies any recent changes Bipolar disorder-[facility]. Taking all medications as prescribed, denies side effects. Following up as instructed, no changes to medications. Diabetes- managed by endocrinology. Blood sugars are well controlled. Insulin dose recently decreased. PHYSICAL EXAM BP 134/74 Pulse 86 Resp 20 Ht 174 cm (5' 8.5") Wt 87.1 kg (192 lb) BMI 28.77 kg/m? GENERAL: well appearing, alert, in no acute distress CARDIOVASCULAR: regular rate and rhythm. No murmur, rubs or gallops. PULMONARY: clear to auscultation, no wheezing, rhonchi, or crackles ASSESSMENT/PLAN: 1. Medicare annual wellness visit, subsequent - ICD9: V70.0, ICD10: Z00.00 (primary diagnosis) See Medicare wellness plan 2. Type 2 diabetes mellitus with stage 3a chronic kidney disease, with long-term current use of insulin (HCC) - ICD9: 250.40, 585.3, V58.67, ICD10: E11.22, N18.31, Z79.4 - Controlled - Continue current medications - BLOOD SUGAR DIAGNOSTIC STRIPS - HUMALOG MIX 50-50 KWIKPEN U-100 INSULIN 100 UNIT/ML SUBCUTANEOUS PEN 3. Essential hypertension - ICD9: 401.9, ICD10: I10 - Controlled - Continue current medications - Recommend home blood pressure monitoring, to bring results to next visit - Encouraged sodium restriction, DASH or Mediterranean diet 4. Hyperlipidemia, unspecified hyperlipidemia type - ICD9: 272.4, ICD10: E78.5 - Controlled - Continue current medications 5. Bipolar affective disorder, remission status unspecified (HCC) - ICD9: 296.80, ICD10: F31.9 Stable on medications 6. Paroxysmal atrial fibrillation (HCC) - ICD9: 427.31, ICD10: I48.0 Stable ELDON Stokes Naz M, APRN.CNP 01/02/2024 8:12 AM Addendum Screening schedule The following prevention plan is recommended: Shingrix Vaccine(1 of 2) Never done RSV Vaccine(1 - 1-dose 60+ series) Never done WHAT YOU CAN DO TO PREVENT FALLS Many falls (more content not included)... Normal [facility] Basophil percentageOrdered B y: Jim Haque on 11-27-2023 Chloride [Moles/Vol] 106 mmol/L 98-107 [facility] Glucose [Mass/Vol] 142 mg/dL 74-106 [facility] Comment on above: Fasting Glucose resu lt greater than or equal to 126 mg/dL suggests DIABETES MELLITUS per A.D.A. criteria. Potassium [Moles/Vol] 3.4 mmol/L 3.5-5.1 [facility] Sodium [Moles/Vol] 142 mmol/L 136-145 [facility] Glucose Glucometer (BldC) [M ass/Vol]Ordered By: Jim Haque on 11-27-2023 Glucose [Mass/Vol] 159 mg/dL 74-106 [facility] Comment on above: MANAGEMENT OF PATIEN T CARE PER NURSING PROTOCOL Laboratory - Chemistry and C hemistry - challengeOrdered By: Jim Haque on 11-27-2023 CO2 [Moles/Vol] 29.0 mmol/L 21.0-32.0 [facility] Urea nitrogen/Creatinine [Mass ratio] 23.5 mg/mg 10-20 [facility] No Panel InformationOrdered By: Jim Haque on 11-27-2023 Estimated Creatinine Clearance Calc 50.24 ml/min [facility] Estimated GFR (MDRD) Amer 78 mL/min >60 [facility] Comment on above: GFR Calc Estimated GFR (MDRD) Non-Af Amer 64 mL/min >60 [facility] Comment on above: Non- GFR Calc Serum or plasma calcium arianna urement (mass/volume)Ordered By: Jim Haque on 11-27-2023 Calcium [Mass/Vol] 8.8 mg/dL 8.5-10.1 [facility] Serum or plasma creatinine m easurement (mass/volume)Ordered By: Jim Haque on 11-27-2023 Creatinine [Mass/Vol] 1.15 mg/dL 0.70-1.30 [facility] Comment on above: The validity of the calculated GFR & GFRAA in patients over 70 years has not been determined. Clinical correlation is essential. Serum or plasma urea nitroge n measurement (mass/volume)Ordered By: Jim Haque on 11-27-2023 Urea nitrogen [Mass/Vol] 27 mg/dL 7-18 [facility] Thin prep Papanicolaou smear with manual screeningOrdered By: Jim Haque on 11-27-2023 Thin prep Papanicolaou smear with manual screening 7 -15 [facility] Absolute lymphocyte countOrd ered By: Jim Haque on 11-26-2023 Lymphocytes Auto (Unsp spec) [#/Vol] 1.44 10*3/uL 0.83-4.51 [facility] Basophil percentageOrdered B y: Jim Haque on 11-26-2023 Basophils/100 WBC (Bld) 0.6 % 0-1 [facility] Eosinophils/100 WBC (Bld) 2.2 % 0-5 [facility] Neutrophils (Bld) [#/Vol] 5.3 10*3/uL 2.0-7.7 [facility] Neutrophils/100 WBC (Bld) 68.1 % 47-70 [facility] WBC (Bld) [#/Vol] 7.8 10*3/uL 4.4-11.0 [facility] Blood erythrocytes count (nu mber/volume)Ordered By: Jim Haque on 11-26-2023 RBC (Bld) [#/Vol] 3.98 10*6/uL 4.6-6.2 [facility] Blood hemoglobin measurement (mass/volume)Ordered By: Jim Haque on 11-26-2023 Hemoglobin (Bld) [Mass/Vol] 11.7 g/dL 13.0-16.5 [facility] Blood lymphocytes/100 leukoc ytesOrdered By: Jim Haque on 11-26-2023 Lymphocytes/100 WBC (Bld) 18.6 % 19-41 [facility] Blood monocytes/100 leukocyt esOrdered By: Jim Haque on 11-26-2023 Monocytes/100 WBC (Bld) 10.2 % 0-10 [facility] Blood platelet mean volumeOr dered By: Jim Haque on 11-26-2023 Platelet mean volume (Bld) [Entitic vol] 11.5 fL 6.2-12.0 [facility] Determination of erythrocyte mean corpuscular volume (MCV)Ordered By: Jim Haque on 11-26-2023 MCV (RBC) [Entitic vol] 90.7 fL 80-94 [facility] Hematocrit Auto (Bld) [Volum e fraction]Ordered By: Jim Haque on 11-26-2023 Hematocrit (Bld) [Volume fraction] 36.1 % 40-54 [facility] Laboratory - Hematology and Cell countsOrdered By: Jim Haque on 11-26-2023 Erythrocyte distribution width (RBC) [Entitic vol] 44.2 fL 35.1-43.9 [facility] Erythrocyte distribution width (RBC) [Ratio] 13.4 % 11.6-14.6 [facility] Immature granulocytes/100 WBC (Bld) 0.300 % 0.0-0.9 [facility] Comment on above: IG% - Immature Granu locytes (promyelocytes, myelocytes and metamyelocytes) > 1% indicates that a LEFT SHIFT is Present. MCH (RBC) [Entitic mass] 29.4 pg 27.0-32.0 [facility] Nucleated RBC/100 WBC (Bld) [Ratio] 0 % 0-5 [facility] MCHC Auto (RBC) [Mass/Vol]Or dered By: Jim Haque on 11-26-2023 MCHC (RBC) [Mass/Vol] 32.4 g/dL 32-36 [facility] Platelets bldOrdered By: Iris sindy Haque on 11-26-2023 Platelets (Bld) [#/Vol] 154 10*3/uL 150-450 [facility] Absolute lymphocyte countOrd ered By: Maxi Quiroga on 11-25-2023 Lymphocytes Auto (Unsp spec) [#/Vol] 1.25 10*3/uL 0.83-4.51 [facility] Basophil percentageOrdered B y: Maxi Quiroga on 11-25-2023 Lactate [Moles/Vol] 1.9 mmol/L 0.4-2.0 [facility] Basophil percentage 0-5 SEEN /hpf 0-5 [facility] Basophils/100 WBC (Bld) 0.5 % 0-1 [facility] Chloride [Moles/Vol] 104 mmol/L 98-107 [facility] Eosinophils/100 WBC (Bld) 2.8 % 0-5 [facility] Glucose [Mass/Vol] 227 mg/dL 74-106 [facility] Comment on above: Glucose result great er than or equal to 200 mg/dLsuggests DIABETES MELLITUS per A.D.A. criteria. Lactate [Moles/Vol] 2.8 mmol/L 0.4-2.0 [facility] Comment on above: Critical Result(s) C alled at: 08:13:12 11/25/2023 by: Russ Kenney to Rajiv MAURICE (ER). Results read back by same. Neutrophils (Bld) [#/Vol] 5.7 10*3/uL 2.0-7.7 [facility] Neutrophils/100 WBC (Bld) 73.3 % 47-70 [facility] Potassium [Moles/Vol] 3.8 mmol/L 3.5-5.1 [facility] Sodium [Moles/Vol] 138 mmol/L 136-145 [facility] WBC (Bld) [#/Vol] 7.8 10*3/uL 4.4-11.0 [facility] Bilirubin Test strip Ql (U)O rdered By: Maxi Quiroga on 11-25-2023 Bilirubin Ql (U) Negative Negative [facility] Blood erythrocytes count (nu mber/volume)Ordered By: Maxi Quiroga on 11-25-2023 RBC (Bld) [#/Vol] 4.15 10*6/uL 4.6-6.2 [facility] Blood hemoglobin measurement (mass/volume)Ordered By: Maxi Quiroga on 11-25-2023 Hemoglobin (Bld) [Mass/Vol] 12.3 g/dL 13.0-16.5 [facility] Blood lymphocytes/100 leukoc ytesOrdered By: Maxi Quiroga on 11-25-2023 Lymphocytes/100 WBC (Bld) 16.1 % 19-41 [facility] Blood monocytes/100 leukocyt esOrdered By: aMxi Quiroga on 11-25-2023 Monocytes/100 WBC (Bld) 6.8 % 0-10 [facility] Blood platelet mean volumeOr dered By: Maxi Quiroga on 11-25-2023 Platelet mean volume (Bld) [Entitic vol] 11.9 fL 6.2-12.0 [facility] Determination of erythrocyte mean corpuscular volume (MCV)Ordered By: Maxi Quiroga on 11-25-2023 MCV (RBC) [Entitic vol] 90.8 fL 80-94 [facility] Hematocrit Auto (Bld) [Volum e fraction]Ordered By: Maxi Quiroga on 11-25-2023 Hematocrit (Bld) [Volume fraction] 37.7 % 40-54 [facility] INR in Blood by Coagulation assayOrdered By: Maxi Quiroga on 11-25-2023 INR Coag (Bld) [Relative time] 1.2 {INR} [facility] Ketones Test strip Ql (U)Ord ered By: Maxi Quiroga on 11-25-2023 Ketones Ql (U) Negative Negative [facility] Laboratory - Chemistry and C hemistry - challengeOrdered By: Maxi Quiroga on 11-25-2023 CO2 [Moles/Vol] 23.0 mmol/L 21.0-32.0 [facility] Lipase [Catalytic activity/Vol] 26 U/L 13-75 [facility] Comment on above: Please note:LIPASE r evised reference range effective 23. New Lipase methodology. Expected to produce lower values than the previous assay method. NEW Reference Range: 13 - 75 U/L Natriuretic peptide B (Bld) [Mass/Vol] 209.0 pg/mL 0-100 [facility] Urea nitrogen/Creatinine [Mass ratio] 20.0 mg/mg 10-20 [facility] Laboratory - CoagulationOrde red By: Maxi Quiroga on 11-25-2023 aPTT Coag (Bld) [Time] 31.6 s 24.1-36.2 [facility] PT Coag (PPP) [Time] 14.8 s 11.7-14.9 [facility] Laboratory - Hematology and Cell countsOrdered By: Maxi Quiroga on 11-25-2023 Erythrocyte distribution width (RBC) [Entitic vol] 43.8 fL 35.1-43.9 [facility] Erythrocyte distribution width (RBC) [Ratio] 13.4 % 11.6-14.6 [facility] Immature granulocytes/100 WBC (Bld) 0.500 % 0.0-0.9 [facility] Comment on above: IG% - Immature Granu locytes (promyelocytes, myelocytes and metamyelocytes) > 1% indicates that a LEFT SHIFT is Present. MCH (RBC) [Entitic mass] 29.6 pg 27.0-32.0 [facility] Nucleated RBC/100 WBC (Bld) [Ratio] 0 % 0-5 [facility] Laboratory - Microbiology an d Antimicrobial susceptibilityOrdered By: Maxi Quiroga on 11-25-2023 SARS-CoV-2 (COVID-19) RNA ROXANNE+probe Ql (Unsp spec) [facility] MCHC Auto (RBC) [Mass/Vol]Or dered By: Maxi Quiroga on 11-25-2023 MCHC (RBC) [Mass/Vol] 32.6 g/dL 32-36 [facility] Mucus LM Ql (Urine sed)Order ed By: Maxi Quiroga on 11-25-2023 Mucus Ql (Urine sed) 0 SEEN /hpf [facility] Nitrite Test strip Ql (U)Ord ered By: Maxi Quiroga on 11-25-2023 Nitrite Ql (U) Negative Negative [facility] No Panel InformationOrdered By: Maxi Quiroga on 01-13-2024 Estimated Creatinine Clearance Calc 47.16 ml/min [facility] Estimated GFR (MDRD) Amer 70 mL/min >60 [facility] Comment on above: GFR Calc Estimated GFR (MDRD) Non-Af Amer 58 mL/min >60 [facility] Comment on above: Non- GFR Calc Troponin I High Sensitivity 26 pg/mL 3.0-78.0 [facility] Comment on above: Please Note: [place] t Units and Gender Specific Reference Ranges. For more information see Policy Stat Procedure [place] High Sensitivity Troponin (TNIH) and attachments. Platelets bldOrdered By: Slick Quiroga on 11-25-2023 Platelets (Bld) [#/Vol] 143 10*3/uL 150-450 [facility] Protein Test strip Ql (U)Ord ered By: Maxi Quiroga on 11-25-2023 Protein Ql (U) 15 mg/dl Negative [facility] Serum or plasma calcium arianna urement (mass/volume)Ordered By: Maxi Quiroga on 11-25-2023 Calcium [Mass/Vol] 9.8 mg/dL 8.5-10.1 [facility] Serum or plasma creatinine m easurement (mass/volume)Ordered By: Maxi Quiroga on 11-25-2023 Creatinine [Mass/Vol] 1.25 mg/dL 0.70-1.30 [facility] Comment on above: The validity of the calculated GFR & GFRAA in patients over 70 years has not been determined. Clinical correlation is essential. Serum or plasma urea nitroge n measurement (mass/volume)Ordered By: Maxi Quiroga on 11-25-2023 Urea nitrogen [Mass/Vol] 25 mg/dL 7-18 [facility] Squamous epithelial cells de tection in urine sediment by light microscopyOrdered By: Maxi Quiroga on 11-25-2023 Epithelial cells.squamous LM Ql (Urine sed) 0 SEEN /hpf 0-5 [facility] Thin prep Papanicolaou smear with manual screeningOrdered By: Maxi Quiroga on 11-25-2023 Thin prep Papanicolaou smear with manual screening 11 5-15 [facility] Urine blood detectionOrdered By: Maxi Quiroga on 11-25-2023 RBC Ql (U) Negative Negative [facility] RBC Ql (U) 0 SEEN /hpf 0-5 [facility] Urine clarityOrdered By: Slick Quiroga on 11-25-2023 Clarity (U) Clear Clear [facility] Urine color determinationOrd ered By: Maxi Quiroga on 11-25-2023 Color (U) Yellow Yellow [facility] Urine glucose detectionOrder ed By: Maxi Quiroga on 11-25-2023 Glucose Ql (U) Normal mg/dl Normal [facility] Urine leukocyte esterase det ection by dipstickOrdered By: Maxi Quiroga on 11-25-2023 Leukocyte esterase Test strip Ql (U) 100 /ul Negative [facility] Urine pHOrdered By: Maxi andersen on 11-25-2023 pH (U) 6.5 [pH] 5.0 - 8.0 [facility] Urine sediment bacteria coun t by microscopy (number/high power field)Ordered By: Maxi Quiroga on 11-25-2023 Bacteria LM.HPF (Urine sed) [#/Area] 0 /[HPF] None Seen [facility] Urine specific gravity measu rementOrdered By: Maxi Quiroga on 11-25-2023 Specific gravity (U) [Rel density] 1.010 1.002-1.03 0 [facility] Urobilinogen Auto test strip Ql (U)Ordered By: Maxi Quiroga on 11-25-2023 Urobilinogen Ql (U) Normal mg/dl Normal [facility] Basophil percentageOrdered B y: Andrei Vazquez on 09-18-2023 Basophil percentage 0 SEEN /hpf 0-5 [facility] Bilirubin Test strip Ql (U)O rdered By: Andrei Vazquez on 09-18-2023 Bilirubin Ql (U) Negative Negative [facility] Ketones Test strip Ql (U)Ord ered By: Andrei Vazquez on 09-18-2023 Ketones Ql (U) Negative Negative [facility] Laboratory - Chemistry and C hemistry - challengeon 09-18-2023 Bilirubin Ql (U) Negative [facility] Glucose Ql (U) Negative [facility] Ketones Ql (U) Negative [facility] pH (U) 6.5 [pH] [facility] Specific gravity (U) [Rel density] 1.015 [facility] Urobilinogen (U) [Mass/Vol] Negative [facility] Laboratory - Hematology and Cell countson 09-18-2023 Hemoglobin Ql (U) Negative [facility] Laboratory - Specimen inform ationon 09-18-2023 Clarity (U) Clear [facility] Color (U) Yellow [facility] Laboratory - Urinalysison Nitrite Ql (U) Negative [facility] Protein Ql (U) Negative [facility] Mucus LM Ql (Urine sed)Order ed By: Andrei Vazquez on 09-18-2023 Mucus Ql (Urine sed) 0 SEEN /hpf [facility] Nitrite Test strip Ql (U)Ord ered By: Andrei Vazquez on 09-18-2023 Nitrite Ql (U) Negative Negative [facility] No Panel Informationon 09-18 Urine Leukocytes Negatve [facility] Urine Non-Hemolyzed Blood [facility] Protein Test strip Ql (U)Ord ered By: Andrei Vazquez on 09-18-2023 Protein Ql (U) 15 mg/dl Negative [facility] Squamous epithelial cells de tection in urine sediment by light microscopyOrdered By: Andrei Vazquez on 09-18-2023 Epithelial cells.squamous LM Ql (Urine sed) 0 SEEN /hpf 0-5 [facility] Urine blood detectionOrdered By: Andrei Vazquez on 09-18-2023 RBC Ql (U) Negative Negative [facility] RBC Ql (U) 0 SEEN /hpf 0-5 [facility] Urine clarityOrdered By: Michael Vazquez on 09-18-2023 Clarity (U) Clear Clear [facility] Urine color determinationOrd ered By: Andrei Vazquez on 09-18-2023 Color (U) Yellow Yellow [facility] Urine glucose detectionOrder ed By: Andrei Vazquez on 09-18-2023 Glucose Ql (U) 50 mg/dl Normal [facility] Urine leukocyte esterase det ection by dipstickOrdered By: Andrei Vazquez on 09-18-2023 Leukocyte esterase Test strip Ql (U) 25 /ul Negative [facility] Urine pHOrdered By: Andrei chung on 09-18-2023 pH (U) 6.0 [pH] 5.0 - 8.0 [facility] Urine sediment bacteria coun t by microscopy (number/high power field)Ordered By: Andrei Vazquez on 09-18-2023 Bacteria LM.HPF (Urine sed) [#/Area] 0 /[HPF] None Seen [facility] Urine specific gravity measu rementOrdered By: Andrei Vazquez on 09-18-2023 Specific gravity (U) [Rel density] 1.010 1.002-1.03 0 [facility] Urobilinogen Auto test strip Ql (U)Ordered By: Andrei Vazquez on 09-18-2023 Urobilinogen Ql (U) Normal mg/dl Normal [facility] Culture, urineOrdered By: Debby Brothers on 09-07-2023 Bacteria identified Cx Nom (U) GPC Poss Enterococcus sp [facility] Basophil percentageOrdered B y: Matheus Borthers on 09-06-2023 Basophil percentage 0 SEEN /hpf 0-5 [facility] Bilirubin Test strip Ql (U)O rdered By: Matheus Brothers on 09-06-2023 Bilirubin Ql (U) Negative Negative [facility] Culture, urineOrdered By: Debby Brothers on 09-06-2023 Bacteria identified Cx Nom (U) GPC Poss Enterococcus sp [facility] Ketones Test strip Ql (U)Ord ered By: Matheus Brothers on 09-06-2023 Ketones Ql (U) Negative Negative [facility] Laboratory - Chemistry and C hemistry - challengeon 09-06-2023 Bilirubin Ql (U) Negative [facility] Glucose Ql (U) Negative [facility] Ketones Ql (U) Negative [facility] pH (U) 6 [pH] [facility] Specific gravity (U) [Rel density] 1.015 [facility] Urobilinogen (U) [Mass/Vol] Negative [facility] Laboratory - Hematology and Cell countson 09-06-2023 Hemoglobin Ql (U) Negative [facility] - Specimen inform ationon 09-06-2023 Clarity (U) Clear [facility] Color (U) Yellow [facility] - Urinalysison Nitrite Ql (U) Negative [facility] Protein Ql (U) Negative [facility] Mucus LM Ql (Urine sed)Order ed By: Matheus Brothers on 09-06-2023 Mucus Ql (Urine sed) 0 SEEN /hpf [facility] Nitrite Test strip Ql (U)Ord ered By: Matheus Brothers on 09-06-2023 Nitrite Ql (U) Negative Negative [facility] No Panel Informationon 09-06 Urine Leukocytes Negatve [facility] Urine Non-Hemolyzed Blood Negative [facility] Protein Test strip Ql (U)Ord ered By: Matheus Brothers on 09-06-2023 Protein Ql (U) Negative Negative [facility] Squamous epithelial cells de tection in urine sediment by light microscopyOrdered By: Matheus Brothers on 09-06-2023 Epithelial cells.squamous LM Ql (Urine sed) 0 SEEN /hpf 0-5 [facility] Urine blood detectionOrdered By: Matheus Brothers on 09-06-2023 RBC Ql (U) Negative Negative [facility] RBC Ql (U) 0 SEEN /hpf 0-5 [facility] Urine clarityOrdered By: Morris Brothers on 09-06-2023 Clarity (U) Clear Clear [facility] Urine color determinationOrd ered By: Matheus Brothers on 09-06-2023 Color (U) Yellow Yellow [facility] Urine glucose detectionOrder ed By: Matheus Brothers on 09-06-2023 Glucose Ql (U) Normal mg/dl Normal [facility] Urine leukocyte esterase det ection by dipstickOrdered By: Matheus Brothers on 09-06-2023 Leukocyte esterase Test strip Ql (U) 25 /ul Negative [facility] Urine pHOrdered By: Matheus mo on 09-06-2023 pH (U) 7.0 [pH] 5.0 - 8.0 [facility] Urine sediment bacteria coun t by microscopy (number/high power field)Ordered By: Matheus Brothers on 09-06-2023 Bacteria LM.HPF (Urine sed) [#/Area] 0 /[HPF] None Seen [facility] Urine specific gravity measu rementOrdered By: Matheus Brothers on 09-06-2023 Specific gravity (U) [Rel density] 1.010 1.002-1.03 0 [facility] Urobilinogen Auto test strip Ql (U)Ordered By: Matheus Brothers on 09-06-2023 Urobilinogen Ql (U) Normal mg/dl Normal [facility] Culture, urineOrdered By: Debby Brothers on 09-02-2023 Bacteria identified Cx Nom (U) Mixed Gram Pos & Gram Neg Org [facility] Culture, urineOrdered By: Debby Brothers on 09-01-2023 Bacteria identified Cx Nom (U) Mixed Gram Pos & Gram Neg Org [facility] - Chemistry and C hemistry - challengeon 09-01-2023 Bilirubin Ql (U) Negative [facility] Glucose Ql (U) Negative [facility] Ketones Ql (U) Negative [facility] pH (U) 7.0 [pH] [facility] Specific gravity (U) [Rel density] <1.005 [facility] Urobilinogen (U) [Mass/Vol] 0.9477744 mg/dL [facility] Laboratory - Hematology and Cell countson 09-01-2023 Hemoglobin Ql (U) Trace [facility] - Specimen inform ationon 09-01-2023 Clarity (U) Clear [facility] Color (U) Straw [facility] Laboratory - Urinalysison Nitrite Ql (U) Negative [facility] Protein Ql (U) Negative [facility] No Panel Informationon 09-01 Urine Leukocytes Positive [facility] Urine Non-Hemolyzed Blood [facility] Culture, urineOrdered By: St do Vazquez on 08-23-2023 Bacteria identified Cx Nom (U) Enterococcus faecalis [facility] Culture, urineOrdered By: [facility] do Vazquez on 08-22-2023 Bacteria identified Cx Nom (U) Enterococcus faecalis [facility] Laboratory - Chemistry and C hemistry - challengeon 08-22-2023 Bilirubin Ql (U) Negative [facility] Glucose Ql (U) Negative [facility] Ketones Ql (U) Negative [facility] pH (U) 5.0 [pH] [facility] Specific gravity (U) [Rel density] 1.010 [facility] Urobilinogen (U) [Mass/Vol] 0.0803815 mg/dL [facility] Laboratory - Hematology and Cell countson 08-22-2023 Hemoglobin Ql (U) Negative [facility] - Specimen inform ationon 08-22-2023 Clarity (U) Clear [facility] Color (U) Yellow [facility] Laboratory - Urinalysison Nitrite Ql (U) Negative [facility] Protein Ql (U) 1+ [facility] No Panel Informationon 08-22 Urine Leukocytes Positive [facility] Urine Non-Hemolyzed Blood [facility] Culture, urineOrdered By: [facility] do [facility]quez on 08-08-2023 Bacteria identified Cx Nom (U) Culture exhibits no growth. [facility] Bacteria identified Cx Nom (U) Culture exhibits no growth. [facility] Laboratory - Chemistry and C hemistry - challengeon 08-08-2023 Bilirubin Ql (U) Negative [facility] Glucose Ql (U) Negative [facility] Ketones Ql (U) Negative [facility] pH (U) 6.0 [pH] [facility] Specific gravity (U) [Rel density] 1.005 [facility] Urobilinogen (U) [Mass/Vol] Negative [facility] Laboratory - Hematology and Cell countson 08-08-2023 Hemoglobin Ql (U) Negative [facility] - Specimen inform ationon 08-08-2023 Clarity (U) Clear [facility] Color (U) Yellow [facility] Laboratory - Urinalysison Nitrite Ql (U) Negative [facility] Protein Ql (U) 1+ [facility] No Panel Informationon 08-08 Urine Leukocytes Positive [facility] Urine Non-Hemolyzed Blood [facility] HbA1c (Bld)on 02-20-2023 HbA1c (Bld) [Mass fraction] 5.6 % 4.4 - 6.3 [facility] HbA1c (Bld)on 09-12-2022 HbA1c (Bld) [Mass fraction] 6.4 % Abnormal 4.4 - 6.3 [facility] XR CHEST 2 VIEWSon 9 XR CHEST 2 VIEWS ORIGINAL XR CHEST 2 VIEWS CLINICAL STATEMENT: pleural effusion COMPARISON: 01/07/2019 FINDINGS:The cardiac contours are mildly enlarged with postoperative change to the sternum and mediastinum. Coarsened lung markings similar to the prior imaging study without superimposed florid vascular congestion or consolidation is noted. Left central venous catheter is no longer present. There is calcification in the aortic knob and along the left carotid artery. There are diffuse degenerative changes present throughout the bony thorax. Bilateral small pleural effusions are present. IMPRESSION:Small bilateral pleural effusions Interpreted By: Elise Francois MD Preliminary Report By: Elise Francois MD Electronically Signed By: Elise Francois MD Dictated Date: 01/23/2019 2:01:46 PM Prelim Date: 01/23/2019 2:01:46 PM Sign Date: 01/23/2019 2:02:27 PM [facility], [facility] ([place]) CBLon 01-11-2019 CBL . MICRO - Microbiology PROCEDURE: Blood Culture (bacterial) [*1] SOURCE: Blood BODY SITE: Central Line COLLECTED DATE/TIME: 01/06/2019 13:42 EST RECEIVED DATE/TIME: 01/06/2019 15:39 EST START DATE/TIME: 01/06/2019 15:39 EST FREE TEXT SOURCE: left subclavian FINAL REPORTS Final Report [] Verified Date/Time/Personnel: 01/11/2019 15:59 EST Blood Culture: No Growth at 5 days. PRELIMINARY REPORTS Preliminary Report [] Verified Date/Time/Personnel: 01/06/2019 16:59 EST Culture has been received in lab and is no growth to date. Routine cultures are held for 5 days. Performing Locations *1: This test was performed at: [address], [address] [place] [address] ([place]) Comment on above: Performed By: #### C BC, ADIFF, ANEU, FIB, APTT, PRO, GFR, TSH, CMP, A1C #### [place] [address] CBL . MICRO - Microbiology PROCEDURE: Blood Culture (bacterial) [*1] SOURCE: Blood BODY SITE: Arm COLLECTED DATE/TIME: 01/06/2019 14:10 EST RECEIVED DATE/TIME: 01/06/2019 15:40 EST START DATE/TIME: 01/06/2019 15:40 EST FREE TEXT SOURCE: FINAL REPORTS Final Report [] Verified Date/Time/Personnel: 01/11/2019 15:59 EST Blood Culture: No Growth at 5 days. PRELIMINARY REPORTS Preliminary Report [] Verified Date/Time/Personnel: 01/06/2019 16:59 EST Culture has been received in lab and is no growth to date. Routine cultures are held for 5 days. Performing Locations *1: This test was performed at: [facility], [address] [place] [address], [address] [place] [address] ([place]) Comment on above: Performed By: #### C BC, ADIFF, ANEU, FIB, APTT, PRO, GFR, TSH, CMP, A1C #### [place] [address] .GFRon 01-08-2019 GFR 45 ml/min/1.73sqm Normal [facility] ([place]) Comment on above: Result Comment: GFR Population mean for , Non- Americans Ages 20-29 = 116 mL/min/1.73 sq.m. Ages 30-39 = 107 mL/min/1.73 sq.m. Ages 40-49 = 99 mL/min/1.73 sq.m. Ages 50-59 = 93 mL/min/1.73 sq.m. Ages 60-69 = 85 mL/min/1.73 sq.m. Ages 70+ = 75 mL/min/1.73 sq.m. Chronic Kidney Disease: Less than 60 mL/min/1.73 square meters End Stage Renal Disease: Less than 15 mL/min/1.73 square meters Performed By: #### C BC, ADIFF, ANEU, FIB, APTT, PRO, GFR, TSH, CMP, A1C #### [place] [address] GFR Non- 37 ml/min/1.73sqm Normal [facility] ([place]) Comment on above: Result Comment: GFR Population mean for , Non- Americans Ages 20-29 = 116 mL/min/1.73 sq.m. Ages 30-39 = 107 mL/min/1.73 sq.m. Ages 40-49 = 99 mL/min/1.73 sq.m. Ages 50-59 = 93 mL/min/1.73 sq.m. Ages 60-69 = 85 mL/min/1.73 sq.m. Ages 70+ = 75 mL/min/1.73 sq.m. Chronic Kidney Disease: Less than 60 mL/min/1.73 square meters End Stage Renal Disease: Less than 15 mL/min/1.73 square meters Performed By: #### C BC, ADIFF, ANEU, FIB, APTT, PRO, GFR, TSH, CMP, A1C #### [address] [address] BMPon 01-08-2019 Calcium mass conc 8.2 mg/dL Low 8.4-10.1 [facility] ([place]) Comment on above: Performed By: #### C BC, ADIFF, ANEU, FIB, APTT, PRO, GFR, TSH, CMP, A1C #### [place] [address] Chloride molar conc 102 mmol/L Normal 98-110 [facility] ([place]) Comment on above: Performed By: #### C BC, ADIFF, ANEU, FIB, APTT, PRO, GFR, TSH, CMP, A1C #### [place] [address] CO2 molar conc 29 mmol/L Normal 22-32 [facility] ([place]) Comment on above: Performed By: #### C BC, ADIFF, ANEU, FIB, APTT, PRO, GFR, TSH, CMP, A1C #### [place] [address] Creatinine mass conc 1.78 mg/dL High 0.60-1.40 [facility] ([place]) Comment on above: Performed By: #### C BC, ADIFF, ANEU, FIB, APTT, PRO, GFR, TSH, CMP, A1C #### [place] [address] Electrolyte Balance 8.0 mEq/L Normal 4.0-15.0 [facility] ([place]) Comment on above: Performed By: #### C BC, ADIFF, ANEU, FIB, APTT, PRO, GFR, TSH, CMP, A1C #### [place] [address] Glucose mass conc 143 mg/dL High 82-115 [facility] ([place]) Comment on above: Performed By: #### C BC, ADIFF, ANEU, FIB, APTT, PRO, GFR, TSH, CMP, A1C #### [address] [address] Potassium molar conc 4.0 mmol/L Normal 3.5-5.0 [facility] ([place]) Comment on above: Performed By: #### C BC, ADIFF, ANEU, FIB, APTT, PRO, GFR, TSH, CMP, A1C #### [address] [address] Sodium molar conc 139 mmol/L Normal 136-145 [facility] ([place]) Comment on above: Performed By: #### C BC, ADIFF, ANEU, FIB, APTT, PRO, GFR, TSH, CMP, A1C #### [address] [address] Urea nitrogen mass conc 63.0 mg/dL High 8.0-22.0 [facility] ([place]) Comment on above: Performed By: #### C BC, ADIFF, ANEU, FIB, APTT, PRO, GFR, TSH, CMP, A1C #### [place] [id number] Urea nitrogen/Creatinine mass ratio 35.4 ratio High 10.0-22.0 [facility] ([place]) Comment on above: Performed By: #### C BC, ADIFF, ANEU, FIB, APTT, PRO, GFR, TSH, CMP, A1C #### [address] [address] CURon 01-08-2019 CUR . MICRO - Microbiology PROCEDURE: Urine Culture [*1] SOURCE: Urine BODY SITE: COLLECTED DATE/TIME: 01/06/2019 16:29 EST RECEIVED DATE/TIME: 01/06/2019 16:53 EST START DATE/TIME: 01/06/2019 16:53 EST FREE TEXT SOURCE: FINAL REPORTS Final Report [] Verified Date/Time/Personnel: 01/08/2019 07:42 EST No growth at 48 hours. PRELIMINARY REPORTS Preliminary Report [] Verified Date/Time/Personnel: 01/07/2019 07:57 EST No growth to date Performing Locations *1: This test was performed at: [facility], [address] [place] [address], [id number] , [facility] Normal [facility] ([place]) Comment on above: Performed By: #### C BC, ADIFF, ANEU, FIB, APTT, PRO, GFR, TSH, CMP, A1C #### [place] [address] .Auto Diffon 01-07-2019 Ammonia mass conc (P) 0.70 10 3/mcL Normal 0.09-1.40 [facility] ([place]) Comment on above: Performed By: #### C BC, ADIFF, ANEU, FIB, APTT, PRO, GFR, TSH, CMP, A1C #### [address] [address] Basophils #/vol (Bld) 0.00 10 3/mcL Normal 0.00-0.27 [facility] ([place]) Comment on above: Performed By: #### C BC, ADIFF, ANEU, FIB, APTT, PRO, GFR, TSH, CMP, A1C #### [place] [address] Basophils/100 WBC (Bld) 0.2 % Normal 0.0-2.5 [facility] ([place]) Comment on above: Performed By: #### C BC, ADIFF, ANEU, FIB, APTT, PRO, GFR, TSH, CMP, A1C #### [address] [address] Eosinophils #/vol (Bld) 0.10 10 3/mcL Normal 0.00-0.65 [facility] ([place]) Comment on above: Performed By: #### C BC, ADIFF, ANEU, FIB, APTT, PRO, GFR, TSH, CMP, A1C #### [place] [address] Eosinophils/100 WBC (Bld) 0.7 % Normal 0.0-6.0 [facility] ([place]) Comment on above: Performed By: #### C BC, ADIFF, ANEU, FIB, APTT, PRO, GFR, TSH, CMP, A1C #### [address] [address] Lymphocytes #/vol (Bld) 1.00 10 3/mcL Normal 0.90-4.32 [facility] ([place]) Comment on above: Performed By: #### C BC, ADIFF, ANEU, FIB, APTT, PRO, GFR, TSH, CMP, A1C #### [address] [address] Lymphocytes/100 WBC (Bld) 11.4 % Low 20.0-40.0 [facility] ([place]) Comment on above: Performed By: #### C BC, ADIFF, ANEU, FIB, APTT, PRO, GFR, TSH, CMP, A1C #### [address] [address] Monocytes/100 WBC (Bld) 8.4 % Normal 2.0-13.0 [facility] ([place]) Comment on above: Performed By: #### C BC, ADIFF, ANEU, FIB, APTT, PRO, GFR, TSH, CMP, A1C #### [address] [address] Neutrophils/100 WBC (Bld) 79.3 % High 50.0-75.0 [facility] ([place]) Comment on above: Performed By: #### C BC, ADIFF, ANEU, FIB, APTT, PRO, GFR, TSH, CMP, A1C #### [address] [address] .GFRon 01-07-2019 GFR 46 ml/min/1.73sqm Normal [facility] ([place]) Comment on above: Result Comment: GFR Population mean for , Non- Americans Ages 20-29 = 116 mL/min/1.73 sq.m. Ages 30-39 = 107 mL/min/1.73 sq.m. Ages 40-49 = 99 mL/min/1.73 sq.m. Ages 50-59 = 93 mL/min/1.73 sq.m. Ages 60-69 = 85 mL/min/1.73 sq.m. Ages 70+ = 75 mL/min/1.73 sq.m. Chronic Kidney Disease: Less than 60 mL/min/1.73 square meters End Stage Renal Disease: Less than 15 mL/min/1.73 square meters Performed By: #### C BC, ADIFF, ANEU, FIB, APTT, PRO, GFR, TSH, CMP, A1C #### [address] [address] GFR Non- 38 ml/min/1.73sqm Normal [facility] ([place]) Comment on above: Result Comment: GFR Population mean for , Non- Americans Ages 20-29 = 116 mL/min/1.73 sq.m. Ages 30-39 = 107 mL/min/1.73 sq.m. Ages 40-49 = 99 mL/min/1.73 sq.m. Ages 50-59 = 93 mL/min/1.73 sq.m. Ages 60-69 = 85 mL/min/1.73 sq.m. Ages 70+ = 75 mL/min/1.73 sq.m. Chronic Kidney Disease: Less than 60 mL/min/1.73 square meters End Stage Renal Disease: Less than 15 mL/min/1.73 square meters Performed By: #### C BC, ADIFF, ANEU, FIB, APTT, PRO, GFR, TSH, CMP, A1C #### [address] [address] .NEUABSon 01-07-2019 Neutrophils #/vol (Bld) 7.00 10 3/mcL Normal 2.25-8.10 [facility] ([place]) Comment on above: Performed By: #### C BC, ADIFF, ANEU, FIB, APTT, PRO, GFR, TSH, CMP, A1C #### [address] [address] BMPon 01-07-2019 Creatinine mass conc 1.72 mg/dL High 0.60-1.40 [facility] ([place]) Comment on above: Performed By: #### C BC, ADIFF, ANEU, FIB, APTT, PRO, GFR, TSH, CMP, A1C #### [address] [address] Urea nitrogen/Creatinine mass ratio 31.4 ratio High 10.0-22.0 [facility] ([place]) Comment on above: Performed By: #### C BC, ADIFF, ANEU, FIB, APTT, PRO, GFR, TSH, CMP, A1C #### [place] [address] Calcium mass conc 7.9 mg/dL Low 8.4-10.1 [facility] ([place]) Comment on above: Performed By: #### C BC, ADIFF, ANEU, FIB, APTT, PRO, GFR, TSH, CMP, A1C #### [place] [address] Chloride molar conc 104 mmol/L Normal 98-110 [facility] ([place]) Comment on above: Performed By: #### C BC, ADIFF, ANEU, FIB, APTT, PRO, GFR, TSH, CMP, A1C #### [place] [address] CO2 molar conc 28 mmol/L Normal 22-32 [facility] ([place]) Comment on above: Performed By: #### C BC, ADIFF, ANEU, FIB, APTT, PRO, GFR, TSH, CMP, A1C #### [place] [address] Electrolyte Balance 7.0 mEq/L Normal 4.0-15.0 [facility] ([place]) Comment on above: Performed By: #### C BC, ADIFF, ANEU, FIB, APTT, PRO, GFR, TSH, CMP, A1C #### [place] [address] Glucose mass conc 136 mg/dL High 82-115 [facility] ([place]) Comment on above: Performed By: #### C BC, ADIFF, ANEU, FIB, APTT, PRO, GFR, TSH, CMP, A1C #### [place] [address] Potassium molar conc 3.7 mmol/L Normal 3.5-5.0 [facility] ([place]) Comment on above: Performed By: #### C BC, ADIFF, ANEU, FIB, APTT, PRO, GFR, TSH, CMP, A1C #### [place] [id number] Sodium molar conc 139 mmol/L Normal 136-145 [facility] ([place]) Comment on above: Performed By: #### C BC, ADIFF, ANEU, FIB, APTT, PRO, GFR, TSH, CMP, A1C #### [place] [id number] Urea nitrogen mass conc 54.0 mg/dL High 8.0-22.0 [facility] ([place]) Comment on above: Performed By: #### C BC, ADIFF, ANEU, FIB, APTT, PRO, GFR, TSH, CMP, A1C #### [place] [address] CBCon 01-07-2019 Erythrocyte distribution width Ratio (RBC) 15.4 % Normal 11.5-15.5 [facility] ([place]) Comment on above: Performed By: #### C BC, ADIFF, ANEU, FIB, APTT, PRO, GFR, TSH, CMP, A1C #### [place] [address] Hematocrit Volume Fraction (Bld) 22.1 % Low 40.0-52.0 [facility] ([place]) Comment on above: Performed By: #### C BC, ADIFF, ANEU, FIB, APTT, PRO, GFR, TSH, CMP, A1C #### [place] [address] Hemoglobin mass conc (Bld) 7.6 G/dL Low 13.0-17.5 [facility] ([place]) Comment on above: Performed By: #### C BC, ADIFF, ANEU, FIB, APTT, PRO, GFR, TSH, CMP, A1C #### [place] [id number] MCH Entitic mass (RBC) 28.6 pg Normal 27.0-33.0 [facility] ([place]) Comment on above: Performed By: #### C BC, ADIFF, ANEU, FIB, APTT, PRO, GFR, TSH, CMP, A1C #### [place] [id number] MCHC mass conc (RBC) 34.2 G/dL Normal 32.0-36.0 [facility] ([place]) Comment on above: Performed By: #### C BC, ADIFF, ANEU, FIB, APTT, PRO, GFR, TSH, CMP, A1C #### [place] [address] MCV Entitic volume (RBC) 83.6 fL Normal 81.0-100.0 [facility] ([place]) Comment on above: Performed By: #### C BC, ADIFF, ANEU, FIB, APTT, PRO, GFR, TSH, CMP, A1C #### [place] [address] Platelet mean volume Entitic volume (Bld) 8.6 fL Normal 6.4-10.5 [facility] ([place]) Comment on above: Performed By: #### C BC, ADIFF, ANEU, FIB, APTT, PRO, GFR, TSH, CMP, A1C #### [place] [address] Platelets #/vol (Bld) 156 10 3/mcL Normal 150-450 A [facility] ([place]) Comment on above: Performed By: #### C BC, ADIFF, ANEU, FIB, APTT, PRO, GFR, TSH, CMP, A1C #### [place] [address] RBC #/vol (Bld) 2.64 10 6/mcL Low 4.50-6.00 [facility] ([place]) Comment on above: Performed By: #### C BC, ADIFF, ANEU, FIB, APTT, PRO, GFR, TSH, CMP, A1C #### [place] [address] WBC #/vol (Bld) 8.80 10 3/mcL Normal 4.50-10.80 [facility] ([place]) Comment on above: Performed By: #### C BC, ADIFF, ANEU, FIB, APTT, PRO, GFR, TSH, CMP, A1C #### [place] [address] Khadar 01-07-2019 Potassium molar conc 4.0 mmol/L Normal 3.5-5.0 [facility] ([place]) Comment on above: Performed By: #### C BC, ADIFF, ANEU, FIB, APTT, PRO, GFR, TSH, CMP, A1C #### [address] [address] XR CHEST 2 VIEWSon 9 XR CHEST 2 VIEWS ORIGINAL XR CHEST 2 VIEWS Clinical Statement: pleural effusion COMPARISON: Chest x-ray yesterday FINDINGS: LEFT costophrenic angle blunting is unchanged. There are median sternotomy wires and there is a LEFT subclavian central venous line. Aeration LEFT lung base is improved. The heart size is within normal limits. No aggressive osseous lesions are identified and there are no visible acute fractures. IMPRESSION: Improved LEFT lung base aeration. Interpreted By: Satya Merino Preliminary Report By: Satya Merino Electronically Signed By: Satya Merino Dictated Date: 01/07/2019 6:10:52 AM Prelim Date: 01/07/2019 6:10:52 AM Sign Date: 01/07/2019 6:21:49 AM Normal [facility] ([place]) .Auto Diffon 01-06-2019 Ammonia mass conc (P) 0.80 10 3/mcL Normal 0.09-1.40 [facility] ([place]) Comment on above: Performed By: #### C BC, ADIFF, ANEU, FIB, APTT, PRO, GFR, TSH, CMP, A1C #### [address] [address] Basophils #/vol (Bld) 0.00 10 3/mcL Normal 0.00-0.27 [facility] ([place]) Comment on above: Performed By: #### C BC, ADIFF, ANEU, FIB, APTT, PRO, GFR, TSH, CMP, A1C #### [address] [address] Basophils/100 WBC (Bld) 0.3 % Normal 0.0-2.5 [facility] ([place]) Comment on above: Performed By: #### C BC, ADIFF, ANEU, FIB, APTT, PRO, GFR, TSH, CMP, A1C #### [address] [address] Eosinophils #/vol (Bld) 0.10 10 3/mcL Normal 0.00-0.65 [facility] ([place]) Comment on above: Performed By: #### C BC, ADIFF, ANEU, FIB, APTT, PRO, GFR, TSH, CMP, A1C #### [address] [address] Eosinophils/100 WBC (Bld) 1.8 % Normal 0.0-6.0 [facility] ([place]) Comment on above: Performed By: #### C BC, ADIFF, ANEU, FIB, APTT, PRO, GFR, TSH, CMP, A1C #### [address] [address] Lymphocytes #/vol (Bld) 1.20 10 3/mcL Normal 0.90-4.32 [facility] ([place]) Comment on above: Performed By: #### C BC, ADIFF, ANEU, FIB, APTT, PRO, GFR, TSH, CMP, A1C #### [address] [address] Lymphocytes/100 WBC (Bld) 17.7 % Low 20.0-40.0 [facility] ([place]) Comment on above: Performed By: #### C BC, ADIFF, ANEU, FIB, APTT, PRO, GFR, TSH, CMP, A1C #### [address] [address] Monocytes/100 WBC (Bld) 11.9 % Normal 2.0-13.0 [facility] ([place]) Comment on above: Performed By: #### C BC, ADIFF, ANEU, FIB, APTT, PRO, GFR, TSH, CMP, A1C #### [address] [address] Neutrophils/100 WBC (Bld) 68.3 % Normal 50.0-75.0 [facility] ([place]) Comment on above: Performed By: #### C BC, ADIFF, ANEU, FIB, APTT, PRO, GFR, TSH, CMP, A1C #### [address] [address] .GFRon 01-06-2019 GFR 48 ml/min/1.73sqm Normal [facility] ([place]) Comment on above: Result Comment: GFR Population mean for , Non- Americans Ages 20-29 = 116 mL/min/1.73 sq.m. Ages 30-39 = 107 mL/min/1.73 sq.m. Ages 40-49 = 99 mL/min/1.73 sq.m. Ages 50-59 = 93 mL/min/1.73 sq.m. Ages 60-69 = 85 mL/min/1.73 sq.m. Ages 70+ = 75 mL/min/1.73 sq.m. Chronic Kidney Disease: Less than 60 mL/min/1.73 square meters End Stage Renal Disease: Less than 15 mL/min/1.73 square meters Performed By: #### C BC, ADIFF, ANEU, FIB, APTT, PRO, GFR, TSH, CMP, A1C #### [address] [address] GFR Non- 40 ml/min/1.73sqm Normal [facility] ([place]) Comment on above: Result Comment: GFR Population mean for , Non- Americans Ages 20-29 = 116 mL/min/1.73 sq.m. Ages 30-39 = 107 mL/min/1.73 sq.m. Ages 40-49 = 99 mL/min/1.73 sq.m. Ages 50-59 = 93 mL/min/1.73 sq.m. Ages 60-69 = 85 mL/min/1.73 sq.m. Ages 70+ = 75 mL/min/1.73 sq.m. Chronic Kidney Disease: Less than 60 mL/min/1.73 square meters End Stage Renal Disease: Less than 15 mL/min/1.73 square meters Performed By: #### C BC, ADIFF, ANEU, FIB, APTT, PRO, GFR, TSH, CMP, A1C #### [address] [address] .NEUABSon 01-06-2019 Neutrophils #/vol (Bld) 4.70 10 3/mcL Normal 2.25-8.10 [facility] ([place]) Comment on above: Performed By: #### C BC, ADIFF, ANEU, FIB, APTT, PRO, GFR, TSH, CMP, A1C #### [place] [id number] BMPon 01-06-2019 Calcium mass conc 8.2 mg/dL Low 8.4-10.1 [facility] ([place]) Comment on above: Performed By: #### C BC, ADIFF, ANEU, FIB, APTT, PRO, GFR, TSH, CMP, A1C #### [place] [address] Chloride molar conc 106 mmol/L Normal 98-110 [facility] ([place]) Comment on above: Performed By: #### C BC, ADIFF, ANEU, FIB, APTT, PRO, GFR, TSH, CMP, A1C #### [place] [address] CO2 molar conc 26 mmol/L Normal 22-32 [facility] ([place]) Comment on above: Performed By: #### C BC, ADIFF, ANEU, FIB, APTT, PRO, GFR, TSH, CMP, A1C #### [place] [address] Creatinine mass conc 1.66 mg/dL High 0.60-1.40 [facility] ([place]) Comment on above: Performed By: #### C BC, ADIFF, ANEU, FIB, APTT, PRO, GFR, TSH, CMP, A1C #### [place] [address] Electrolyte Balance 10.0 mEq/L Normal 4.0-15.0 [facility] ([place]) Comment on above: Performed By: #### C BC, ADIFF, ANEU, FIB, APTT, PRO, GFR, TSH, CMP, A1C #### [place] [address] Glucose mass conc 126 mg/dL High 82-115 [facility] ([place]) Comment on above: Performed By: #### C BC, ADIFF, ANEU, FIB, APTT, PRO, GFR, TSH, CMP, A1C #### [place] [address] Potassium molar conc 3.8 mmol/L Normal 3.5-5.0 [facility] ([place]) Comment on above: Performed By: #### C BC, ADIFF, ANEU, FIB, APTT, PRO, GFR, TSH, CMP, A1C #### [place] [address] Sodium molar conc 142 mmol/L Normal 136-145 [facility] ([place]) Comment on above: Performed By: #### C BC, ADIFF, ANEU, FIB, APTT, PRO, GFR, TSH, CMP, A1C #### [place] [address] Urea nitrogen mass conc 44.0 mg/dL High 8.0-22.0 [facility] ([place]) Comment on above: Performed By: #### C BC, ADIFF, ANEU, FIB, APTT, PRO, GFR, TSH, CMP, A1C #### [place] [address] Urea nitrogen/Creatinine mass ratio 26.5 ratio High 10.0-22.0 [facility] ([place]) Comment on above: Performed By: #### C BC, ADIFF, ANEU, FIB, APTT, PRO, GFR, TSH, CMP, A1C #### [place] [address] CBCon 01-06-2019 Erythrocyte distribution width Ratio (RBC) 15.6 % High 11.5-15.5 [facility] ([place]) Comment on above: Performed By: #### C BC, ADIFF, ANEU, FIB, APTT, PRO, GFR, TSH, CMP, A1C #### [place] [address] Hematocrit Volume Fraction (Bld) 24.0 % Low 40.0-52.0 [facility] ([place]) Comment on above: Performed By: #### C BC, ADIFF, ANEU, FIB, APTT, PRO, GFR, TSH, CMP, A1C #### [place] [address] Hemoglobin mass conc (Bld) 8.1 G/dL Low 13.0-17.5 [facility] ([place]) Comment on above: Performed By: #### C BC, ADIFF, ANEU, FIB, APTT, PRO, GFR, TSH, CMP, A1C #### [place] [address] MCH Entitic mass (RBC) 28.5 pg Normal 27.0-33.0 [facility] ([place]) Comment on above: Performed By: #### C BC, ADIFF, ANEU, FIB, APTT, PRO, GFR, TSH, CMP, A1C #### [place] [address] MCHC mass conc (RBC) 33.8 G/dL Normal 32.0-36.0 [facility] ([place]) Comment on above: Performed By: #### C BC, ADIFF, ANEU, FIB, APTT, PRO, GFR, TSH, CMP, A1C #### [place] [address] MCV Entitic volume (RBC) 84.2 fL Normal 81.0-100.0 [facility] ([place]) Comment on above: Performed By: #### C BC, ADIFF, ANEU, FIB, APTT, PRO, GFR, TSH, CMP, A1C #### [place] [address] Platelet mean volume Entitic volume (Bld) 8.4 fL Normal 6.4-10.5 [facility] ([place]) Comment on above: Performed By: #### C BC, ADIFF, ANEU, FIB, APTT, PRO, GFR, TSH, CMP, A1C #### [place] [address] Platelets #/vol (Bld) 139 10 3/mcL Low 150-450 A [facility] ([place]) Comment on above: Performed By: #### C BC, ADIFF, ANEU, FIB, APTT, PRO, GFR, TSH, CMP, A1C #### [place] [address] RBC #/vol (Bld) 2.85 10 6/mcL Low 4.50-6.00 [facility] ([place]) Comment on above: Performed By: #### C BC, ADIFF, ANEU, FIB, APTT, PRO, GFR, TSH, CMP, A1C #### [place] [address] WBC #/vol (Bld) 6.80 10 3/mcL Normal 4.50-10.80 [facility] ([place]) Comment on above: Performed By: #### C BC, ADIFF, ANEU, FIB, APTT, PRO, GFR, TSH, CMP, A1C #### [address] [address] CRESPon 01-06-2019 CRESP . MICRO - Microbiology PROCEDURE: Culture Respiratory with Gram Stain [^1 *1] SOURCE: Sputum BODY SITE: COLLECTED DATE/TIME: 01/06/2019 16:29 EST RECEIVED DATE/TIME: 01/06/2019 15:53 BREWING DIRECTOR START DATE/TIME: 01/06/2019 16:53 EST FREE TEXT SOURCE: FINAL REPORTS Final Report [] Verified Date/Time/Personnel: 01/06/2019 17:45 EST Refer to Gram Stain. STAINS GS [] Verified Date/Time/Personnel: 01/06/2019 17:45 EST Predominance of epithelial cells 4+ mixed rodolfo Gram stain indicates oropharyngeal contamination. Repeat specimen needed for culture. Interpretive Data ^1: Culture Respiratory with Gram Stain Requests for Mycoplasma, Legionella, Fungi, Mycobacteria, Chlamydia, and Viruses require ordering of those individual tests. Performing Locations *1: This test was performed at: [facility], [address] [place] [address], [address] [place] [address] ([place]) Comment on above: Performed By: #### C BC, ADIFF, ANEU, FIB, APTT, PRO, GFR, TSH, CMP, A1C #### [place] [address] HITon 01-06-2019 % Inhibition Not calculated Normal [facility] ([place]) Comment on above: Result Comment: Perf ormed By: [facility] Formula XO [facility] [place] [address] Prop Making Supervisor: Sandra Chowdhury#: [id number] Phone#: Performed By: #### C BC, ADIFF, ANEU, FIB, APTT, PRO, GFR, TSH, CMP, A1C #### [address] [address] Anti-PF4 Review Test Not Indicated Normal A [facility] ([place]) Comment on above: Result Comment: Perf ormed By: [place] [id number] Prop Making Supervisor: Trina Drew M.D. CLIA#: [id number] Phone#: Performed By: #### C BC, ADIFF, ANEU, FIB, APTT, PRO, GFR, TSH, CMP, A1C #### [address] [address] Plas+PF4 Hi Dose Hep 0.102 Normal [facility] ([place]) Comment on above: Result Comment: Perf ormed By: [place] [address] Prop Making Supervisor: Trina Drew M.D. CLIA#: [id number] Phone#: Performed By: #### C BC, ADIFF, ANEU, FIB, APTT, PRO, GFR, TSH, CMP, A1C #### [address] [address] Plasma+PF4 Complex 0.098 Normal [facility] ([place]) Comment on above: Result Comment: OD < 0.400 is negative Performed By: [place] [address] Prop Making Supervisor: Trina Drew M.D. CLIA#: [id number] Phone#: Performed By: #### C BC, ADIFF, ANEU, FIB, APTT, PRO, GFR, TSH, CMP, A1C #### [address] [address] Plt Interpretation Negative Normal [facility] ([place]) Comment on above: Result Comment: No a nti-platelet factor 4 IgG antibody is detected by CECILLE assay. Heparin-induced thrombocytopenia (HIT) is unlikely, but should be excluded based on clinical factors. Performed By: [facility] Formula [employer] [address] [place] [address] Prop Making Supervisor: Sandra Chowdhury#: [id number] Phone#: Performed By: #### C BC, ADIFF, ANEU, FIB, APTT, PRO, GFR, TSH, CMP, A1C #### [place] [id number] Khadar 01-06-2019 Potassium molar conc 3.9 mmol/L Normal 3.5-5.0 [facility] ([place]) Comment on above: Performed By: #### C BC, ADIFF, ANEU, FIB, APTT, PRO, GFR, TSH, CMP, A1C #### [place] [id number] UAon 01-06-2019 Color Nom (U) Yellow Normal [facility] ([place]) Comment on above: Performed By: #### C BC, ADIFF, ANEU, FIB, APTT, PRO, GFR, TSH, CMP, A1C #### [place] [address] Glucose mass conc (U) mg/dL Negative [facility] ([place]) Comment on above: Performed By: #### C BC, ADIFF, ANEU, FIB, APTT, PRO, GFR, TSH, CMP, A1C #### [place] [address] Ketones Ql (U) Negative Normal Neg-Trace [facility] ([place]) Comment on above: Performed By: #### C BC, ADIFF, ANEU, FIB, APTT, PRO, GFR, TSH, CMP, A1C #### [place] [address] UA Appear Clear Normal Clear [facility] ([place]) Comment on above: Performed By: #### C BC, ADIFF, ANEU, FIB, APTT, PRO, GFR, TSH, CMP, A1C #### [place] [address] UA Blood Trace Normal Neg-Trace [facility] ([place]) Comment on above: Performed By: #### C BC, ADIFF, ANEU, FIB, APTT, PRO, GFR, TSH, CMP, A1C #### [address] [address] UA Leuk Est Negative Normal Negative [facility] ([place]) Comment on above: Performed By: #### C BC, ADIFF, ANEU, FIB, APTT, PRO, GFR, TSH, CMP, A1C #### [address] [address] UA Nitrite Negative Normal Negative [facility] ([place]) Comment on above: Performed By: #### C BC, ADIFF, ANEU, FIB, APTT, PRO, GFR, TSH, CMP, A1C #### [address] [address] UA pH 5.0 Normal 5.0 - 8.0 [facility] ([place]) Comment on above: Performed By: #### C BC, ADIFF, ANEU, FIB, APTT, PRO, GFR, TSH, CMP, A1C #### [address] [address] UA Protein Negative Normal Negative [facility] ([place]) Comment on above: Performed By: #### C BC, ADIFF, ANEU, FIB, APTT, PRO, GFR, TSH, CMP, A1C #### [address] [address] UA Spec Grav 1.025 Normal 1.006-1.02 9 [facility] ([place]) Comment on above: Performed By: #### C BC, ADIFF, ANEU, FIB, APTT, PRO, GFR, TSH, CMP, A1C #### [address] [address] UA Specimen Type Clean Catch Normal [facility] ([place]) Comment on above: Performed By: #### C BC, ADIFF, ANEU, FIB, APTT, PRO, GFR, TSH, CMP, A1C #### [address] [address] UA Urobilinogen 1.0 E.U./dL Normal 0.2-1.0 [facility] ([place]) Comment on above: Performed By: #### C BC, ADIFF, ANEU, FIB, APTT, PRO, GFR, TSH, CMP, A1C #### [address] [address] Urobilinogen Qn (U) Negative Normal Neg-Trace [facility] ([place]) Comment on above: Performed By: #### C BC, ADIFF, ANEU, FIB, APTT, PRO, GFR, TSH, CMP, A1C #### [address] [address] XR CHEST 2 VIEWSon 9 XR CHEST 2 VIEWS ORIGINAL XR CHEST 2 VIEWS Clinical Statement: pleural effusion COMPARISON: Chest x-ray yesterday FINDINGS: LEFT subclavian central venous line is unchanged. There are median sternotomy wires. Implanted cardiac valve is noted. Small retrocardiac infiltrate and effusion are unchanged. No pneumothorax. The heart size is within normal limits. No aggressive osseous lesions are identified and there are no visible acute fractures. IMPRESSION: Left-sided pleural effusion and adjacent airspace disease is unchanged. Interpreted By: Satya Merino Preliminary Report By: Satya Merino Electronically Signed By: Satya Merino Dictated Date: 01/06/2019 6:41:54 AM Prelim Date: 01/06/2019 6:41:54 AM Sign Date: 01/06/2019 6:44:02 AM Normal [facility] ([place]) .Auto Diffon 01-05-2019 Ammonia mass conc (P) 0.90 10 3/mcL Normal 0.09-1.40 [facility] ([place]) Comment on above: Performed By: #### C BC, ADIFF, ANEU, FIB, APTT, PRO, GFR, TSH, CMP, A1C #### [address] [address] Basophils #/vol (Bld) 0.00 10 3/mcL Normal 0.00-0.27 [facility] ([place]) Comment on above: Performed By: #### C BC, ADIFF, ANEU, FIB, APTT, PRO, GFR, TSH, CMP, A1C #### [address] [address] Basophils/100 WBC (Bld) 0.4 % Normal 0.0-2.5 [facility] ([place]) Comment on above: Performed By: #### C BC, ADIFF, ANEU, FIB, APTT, PRO, GFR, TSH, CMP, A1C #### [address] [address] Eosinophils #/vol (Bld) 0.10 10 3/mcL Normal 0.00-0.65 [facility] ([place]) Comment on above: Performed By: #### C BC, ADIFF, ANEU, FIB, APTT, PRO, GFR, TSH, CMP, A1C #### [address] [address] Eosinophils/100 WBC (Bld) 1.5 % Normal 0.0-6.0 [facility] ([place]) Comment on above: Performed By: #### C BC, ADIFF, ANEU, FIB, APTT, PRO, GFR, TSH, CMP, A1C #### [address] [address] Lymphocytes #/vol (Bld) 1.70 10 3/mcL Normal 0.90-4.32 [facility] ([place]) Comment on above: Performed By: #### C BC, ADIFF, ANEU, FIB, APTT, PRO, GFR, TSH, CMP, A1C #### [address] [address] Lymphocytes/100 WBC (Bld) 21.4 % Normal 20.0-40.0 [facility] ([place]) Comment on above: Performed By: #### C BC, ADIFF, ANEU, FIB, APTT, PRO, GFR, TSH, CMP, A1C #### [address] [address] Monocytes/100 WBC (Bld) 11.0 % Normal 2.0-13.0 [facility] ([place]) Comment on above: Performed By: #### C BC, ADIFF, ANEU, FIB, APTT, PRO, GFR, TSH, CMP, A1C #### [address] [address] Neutrophils/100 WBC (Bld) 65.7 % Normal 50.0-75.0 [facility] ([place]) Comment on above: Performed By: #### C BC, ADIFF, ANEU, FIB, APTT, PRO, GFR, TSH, CMP, A1C #### [address] [address] .GFRon 01-05-2019 GFR Non- 49 ml/min/1.73sqm Normal [facility] ([place]) Comment on above: Result Comment: GFR Population mean for , Non- Americans Ages 20-29 = 116 mL/min/1.73 sq.m. Ages 30-39 = 107 mL/min/1.73 sq.m. Ages 40-49 = 99 mL/min/1.73 sq.m. Ages 50-59 = 93 mL/min/1.73 sq.m. Ages 60-69 = 85 mL/min/1.73 sq.m. Ages 70+ = 75 mL/min/1.73 sq.m. Chronic Kidney Disease: Less than 60 mL/min/1.73 square meters End Stage Renal Disease: Less than 15 mL/min/1.73 square meters Performed By: #### C BC, ADIFF, ANEU, FIB, APTT, PRO, GFR, TSH, CMP, A1C #### [place] [address] GFR 59 ml/min/1.73sqm Normal [facility] ([place]) Comment on above: Result Comment: GFR Population mean for , Non- Americans Ages 20-29 = 116 mL/min/1.73 sq.m. Ages 30-39 = 107 mL/min/1.73 sq.m. Ages 40-49 = 99 mL/min/1.73 sq.m. Ages 50-59 = 93 mL/min/1.73 sq.m. Ages 60-69 = 85 mL/min/1.73 sq.m. Ages 70+ = 75 mL/min/1.73 sq.m. Chronic Kidney Disease: Less than 60 mL/min/1.73 square meters End Stage Renal Disease: Less than 15 mL/min/1.73 square meters Performed By: #### C BC, ADIFF, ANEU, FIB, APTT, PRO, GFR, TSH, CMP, A1C #### [address] [address] .NEUABSon 01-05-2019 Neutrophils #/vol (Bld) 5.30 10 3/mcL Normal 2.25-8.10 [facility] ([place]) Comment on above: Performed By: #### C BC, ADIFF, ANEU, FIB, APTT, PRO, GFR, TSH, CMP, A1C #### [place] [address] CBCon 01-05-2019 Erythrocyte distribution width Ratio (RBC) 15.5 % Normal 11.5-15.5 [facility] ([place]) Comment on above: Performed By: #### C BC, ADIFF, ANEU, FIB, APTT, PRO, GFR, TSH, CMP, A1C #### [place] [address] Hematocrit Volume Fraction (Bld) 25.6 % Low 40.0-52.0 [facility] ([place]) Comment on above: Performed By: #### C BC, ADIFF, ANEU, FIB, APTT, PRO, GFR, TSH, CMP, A1C #### [place] [address] Hemoglobin mass conc (Bld) 8.6 G/dL Low 13.0-17.5 [facility] ([place]) Comment on above: Performed By: #### C BC, ADIFF, ANEU, FIB, APTT, PRO, GFR, TSH, CMP, A1C #### [place] [address] MCH Entitic mass (RBC) 28.3 pg Normal 27.0-33.0 [facility] ([place]) Comment on above: Performed By: #### C BC, ADIFF, ANEU, FIB, APTT, PRO, GFR, TSH, CMP, A1C #### [place] [address] MCHC mass conc (RBC) 33.7 G/dL Normal 32.0-36.0 [facility] ([place]) Comment on above: Performed By: #### C BC, ADIFF, ANEU, FIB, APTT, PRO, GFR, TSH, CMP, A1C #### [place] [address] MCV Entitic volume (RBC) 84.2 fL Normal 81.0-100.0 [facility] ([place]) Comment on above: Performed By: #### C BC, ADIFF, ANEU, FIB, APTT, PRO, GFR, TSH, CMP, A1C #### [place] [address] Platelet mean volume Entitic volume (Bld) 8.9 fL Normal 6.4-10.5 [facility] ([place]) Comment on above: Performed By: #### C BC, ADIFF, ANEU, FIB, APTT, PRO, GFR, TSH, CMP, A1C #### [place] [address] Platelets #/vol (Bld) 132 10 3/mcL Low 150-450 A [facility] ([place]) Comment on above: Performed By: #### C BC, ADIFF, ANEU, FIB, APTT, PRO, GFR, TSH, CMP, A1C #### [place] [address] RBC #/vol (Bld) 3.04 10 6/mcL Low 4.50-6.00 [facility] ([place]) Comment on above: Performed By: #### C BC, ADIFF, ANEU, FIB, APTT, PRO, GFR, TSH, CMP, A1C #### [place] [address] WBC #/vol (Bld) 8.00 10 3/mcL Normal 4.50-10.80 [facility] ([place]) Comment on above: Performed By: #### C BC, ADIFF, ANEU, FIB, APTT, PRO, GFR, TSH, CMP, A1C #### [place] [address] CMPon 01-05-2019 Albumin mass conc 3.2 G/dL Normal 3.2-4.8 [facility] ([place]) Comment on above: Performed By: #### C BC, ADIFF, ANEU, FIB, APTT, PRO, GFR, TSH, CMP, A1C #### [place] [address] Albumin/Globulin mass ratio 1.1 {ratio} Normal 0.9-1.6 [facility] ([place]) Comment on above: Performed By: #### C BC, ADIFF, ANEU, FIB, APTT, PRO, GFR, TSH, CMP, A1C #### [address] [address] ALP enzyme act/vol 34 U/L Low 38-126 [facility] ([place]) Comment on above: Performed By: #### C BC, ADIFF, ANEU, FIB, APTT, PRO, GFR, TSH, CMP, A1C #### [address] [address] ALT enzyme act/vol 34 U/L Normal 12-55 [facility] ([place]) Comment on above: Performed By: #### C BC, ADIFF, ANEU, FIB, APTT, PRO, GFR, TSH, CMP, A1C #### [address] [address] AST enzyme act/vol 83 U/L High 8-34 [facility] ([place]) Comment on above: Performed By: #### C BC, ADIFF, ANEU, FIB, APTT, PRO, GFR, TSH, CMP, A1C #### [place] [address] Bili Total 0.7 mg/dL Normal 0.2-1.2 [facility] ([place]) Comment on above: Performed By: #### C BC, ADIFF, ANEU, FIB, APTT, PRO, GFR, TSH, CMP, A1C #### [address] [address] Calcium mass conc 8.7 mg/dL Normal 8.4-10.1 [facility] ([place]) Comment on above: Performed By: #### C BC, ADIFF, ANEU, FIB, APTT, PRO, GFR, TSH, CMP, A1C #### [address] [address] CO2 molar conc 26 mmol/L Normal 22-32 [facility] ([place]) Comment on above: Performed By: #### C BC, ADIFF, ANEU, FIB, APTT, PRO, GFR, TSH, CMP, A1C #### [place] [address] Creatinine mass conc 1.39 mg/dL Normal 0.60-1.40 [facility] ([place]) Comment on above: Performed By: #### C BC, ADIFF, ANEU, FIB, APTT, PRO, GFR, TSH, CMP, A1C #### [address] [address] Electrolyte Balance 9.0 mEq/L Normal 4.0-15.0 [facility] ([place]) Comment on above: Performed By: #### C BC, ADIFF, ANEU, FIB, APTT, PRO, GFR, TSH, CMP, A1C #### [place] [id number] Globulin mass conc (S) 3.0 G/dL Normal 1.5-3.8 [facility] ([place]) Comment on above: Performed By: #### C BC, ADIFF, ANEU, FIB, APTT, PRO, GFR, TSH, CMP, A1C #### [place] [id number] Glucose mass conc 76 mg/dL Low 82-115 [facility] ([place]) Comment on above: Performed By: #### C BC, ADIFF, ANEU, FIB, APTT, PRO, GFR, TSH, CMP, A1C #### [address] [address] Protein mass conc 6.2 G/dL Normal 6.0-8.5 [facility] ([place]) Comment on above: Performed By: #### C BC, ADIFF, ANEU, FIB, APTT, PRO, GFR, TSH, CMP, A1C #### [address] [address] Urea nitrogen mass conc 32.0 mg/dL High 8.0-22.0 [facility] ([place]) Comment on above: Performed By: #### C BC, ADIFF, ANEU, FIB, APTT, PRO, GFR, TSH, CMP, A1C #### [address] [address] Urea nitrogen/Creatinine mass ratio 23.0 ratio High 10.0-22.0 [facility] ([place]) Comment on above: Performed By: #### C BC, ADIFF, ANEU, FIB, APTT, PRO, GFR, TSH, CMP, A1C #### [facility] [address] [place] [address] Chloride molar conc 108 mmol/L Normal 98-110 [facility] ([place]) Comment on above: Performed By: #### C BC, ADIFF, ANEU, FIB, APTT, PRO, GFR, TSH, CMP, A1C #### [facility] [address] [place] [address] Potassium molar conc 3.4 mmol/L Low 3.5-5.0 [facility] ([place]) Comment on above: Performed By: #### C BC, ADIFF, ANEU, FIB, APTT, PRO, GFR, TSH, CMP, A1C #### [facility] [address] [place] [address] Sodium molar conc 143 mmol/L Normal 136-145 [facility] ([place]) Comment on above: Performed By: #### C BC, ADIFF, ANEU, FIB, APTT, PRO, GFR, TSH, CMP, A1C #### [place] [id number] [address] [place] [address] XR CHEST 2 VIEWSon 9 XR CHEST 2 VIEWS ORIGINAL XR CHEST 2 VIEWS, 01/05/2019 12:52 PM INDICATION: Post-thoracentesis COMPARISON: Earlier same day FINDINGS: Sternotomy wires and a LEFT subclavian catheter are unchanged. There is a minimal LEFT effusion and there are a few streaky airspace opacities in the LEFT base. There is no significant pneumothorax. The pulmonary vasculature is unremarkable in appearance. IMPRESSION: Interval decrease in LEFT effusion. Interpreted By: Everette Vivas MD Preliminary Report By: Everette Vivas MD Electronically Signed By: Everette Vivas MD Dictated Date: 01/05/2019 2:03:33 PM Prelim Date: 01/05/2019 2:03:33 PM Sign Date: 01/05/2019 2:04:11 PM Normal [facility] ([place]) XR CHEST 2 VIEWS ORIGINAL Clinical history: Abnormal breath sounds. Cardiac surgery postoperative day 4. COMPARISON: Chest x-ray on 01/02/2019. PA and lateral radiographs of the chest were obtained. LEFT subclavian central venous catheter tip is in the superior vena cava. The heart is mildly enlarged in generalized manner. 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 There is a moderate size LEFT pleural effusion and small RIGHT pleural effusion. There is associated basilar airspace disease bilaterally. No pneumothorax is present. There is no pulmonary edema. RIGHT chest tube has been removed since the prior exam. IMPRESSION: Moderate size LEFT pleural effusion and small RIGHT pleural effusion with corresponding basilar airspace disease. Interpreted By: Manuel Bueno MD Preliminary Report By: Manuel Bueno MD Electronically Signed By: Manuel Bueno MD Dictated Date: 01/05/2019 6:27:27 AM Prelim Date: 01/05/2019 6:27:27 AM Sign Date: 01/05/2019 6:29:14 AM Normal [facility] ([place]) .Auto Diffon 01-04-2019 Ammonia mass conc (P) 0.70 10 3/mcL Normal 0.09-1.40 [facility] ([place]) Comment on above: Performed By: #### C BC, ADIFF, ANEU, FIB, APTT, PRO, GFR, TSH, CMP, A1C #### [address] [address] Basophils #/vol (Bld) 0.00 10 3/mcL Normal 0.00-0.27 [facility] ([place]) Comment on above: Performed By: #### C BC, ADIFF, ANEU, FIB, APTT, PRO, GFR, TSH, CMP, A1C #### [address] [address] Basophils/100 WBC (Bld) 0.2 % Normal 0.0-2.5 [facility] ([place]) Comment on above: Performed By: #### C BC, ADIFF, ANEU, FIB, APTT, PRO, GFR, TSH, CMP, A1C #### [address] [address] Eosinophils #/vol (Bld) 0.00 10 3/mcL Normal 0.00-0.65 [facility] ([place]) Comment on above: Performed By: #### C BC, ADIFF, ANEU, FIB, APTT, PRO, GFR, TSH, CMP, A1C #### [address] [address] Eosinophils/100 WBC (Bld) 0.5 % Normal 0.0-6.0 [facility] ([place]) Comment on above: Performed By: #### C BC, ADIFF, ANEU, FIB, APTT, PRO, GFR, TSH, CMP, A1C #### [address] [address] Lymphocytes #/vol (Bld) 1.10 10 3/mcL Normal 0.90-4.32 [facility] ([place]) Comment on above: Performed By: #### C BC, ADIFF, ANEU, FIB, APTT, PRO, GFR, TSH, CMP, A1C #### [address] [address] Lymphocytes/100 WBC (Bld) 14.5 % Low 20.0-40.0 [facility] ([place]) Comment on above: Performed By: #### C BC, ADIFF, ANEU, FIB, APTT, PRO, GFR, TSH, CMP, A1C #### [address] [address] Monocytes/100 WBC (Bld) 9.0 % Normal 2.0-13.0 [facility] ([place]) Comment on above: Performed By: #### C BC, ADIFF, ANEU, FIB, APTT, PRO, GFR, TSH, CMP, A1C #### [address] [address] Neutrophils/100 WBC (Bld) 75.8 % High 50.0-75.0 [facility] ([place]) Comment on above: Performed By: #### C BC, ADIFF, ANEU, FIB, APTT, PRO, GFR, TSH, CMP, A1C #### [address] [address] .GFRon 01-04-2019 GFR >60 Normal [facility] ([place]) Comment on above: Result Comment: GFR Population mean for , Non- Americans Ages 20-29 = 116 mL/min/1.73 sq.m. Ages 30-39 = 107 mL/min/1.73 sq.m. Ages 40-49 = 99 mL/min/1.73 sq.m. Ages 50-59 = 93 mL/min/1.73 sq.m. Ages 60-69 = 85 mL/min/1.73 sq.m. Ages 70+ = 75 mL/min/1.73 sq.m. Chronic Kidney Disease: Less than 60 mL/min/1.73 square meters End Stage Renal Disease: Less than 15 mL/min/1.73 square meters Performed By: #### C BC, ADIFF, ANEU, FIB, APTT, PRO, GFR, TSH, CMP, A1C #### [address] [address] GFR Non- 54 ml/min/1.73sqm Normal [facility] ([place]) Comment on above: Result Comment: GFR Population mean for , Non- Americans Ages 20-29 = 116 mL/min/1.73 sq.m. Ages 30-39 = 107 mL/min/1.73 sq.m. Ages 40-49 = 99 mL/min/1.73 sq.m. Ages 50-59 = 93 mL/min/1.73 sq.m. Ages 60-69 = 85 mL/min/1.73 sq.m. Ages 70+ = 75 mL/min/1.73 sq.m. Chronic Kidney Disease: Less than 60 mL/min/1.73 square meters End Stage Renal Disease: Less than 15 mL/min/1.73 square meters Performed By: #### C BC, ADIFF, ANEU, FIB, APTT, PRO, GFR, TSH, CMP, A1C #### [address] [address] .NEUABSon 01-04-2019 Neutrophils #/vol (Bld) 5.60 10 3/mcL Normal 2.25-8.10 [facility] ([place]) Comment on above: Performed By: #### C BC, ADIFF, ANEU, FIB, APTT, PRO, GFR, TSH, CMP, A1C #### [address] [address] BMPon 01-04-2019 Creatinine mass conc 1.27 mg/dL Normal 0.60-1.40 [facility] ([place]) Comment on above: Performed By: #### C BC, ADIFF, ANEU, FIB, APTT, PRO, GFR, TSH, CMP, A1C #### [address] [address] Urea nitrogen/Creatinine mass ratio 22.8 ratio High 10.0-22.0 [facility] ([place]) Comment on above: Performed By: #### C BC, ADIFF, ANEU, FIB, APTT, PRO, GFR, TSH, CMP, A1C #### [place] [address] Calcium mass conc 8.7 mg/dL Normal 8.4-10.1 [facility] ([place]) Comment on above: Performed By: #### C BC, ADIFF, ANEU, FIB, APTT, PRO, GFR, TSH, CMP, A1C #### [place] [address] Chloride molar conc 108 mmol/L Normal 98-110 [facility] ([place]) Comment on above: Performed By: #### C BC, ADIFF, ANEU, FIB, APTT, PRO, GFR, TSH, CMP, A1C #### [place] [address] CO2 molar conc 30 mmol/L Normal 22-32 [facility] ([place]) Comment on above: Performed By: #### C BC, ADIFF, ANEU, FIB, APTT, PRO, GFR, TSH, CMP, A1C #### [place] [address] Electrolyte Balance 5.0 mEq/L Normal 4.0-15.0 [facility] ([place]) Comment on above: Performed By: #### C BC, ADIFF, ANEU, FIB, APTT, PRO, GFR, TSH, CMP, A1C #### [place] [address] Glucose mass conc 134 mg/dL High 82-115 [facility] ([place]) Comment on above: Performed By: #### C BC, ADIFF, ANEU, FIB, APTT, PRO, GFR, TSH, CMP, A1C #### [place] [address] Potassium molar conc 3.7 mmol/L Normal 3.5-5.0 [facility] ([place]) Comment on above: Performed By: #### C BC, ADIFF, ANEU, FIB, APTT, PRO, GFR, TSH, CMP, A1C #### [place] [address] Sodium molar conc 143 mmol/L Normal 136-145 [facility] ([place]) Comment on above: Performed By: #### C BC, ADIFF, ANEU, FIB, APTT, PRO, GFR, TSH, CMP, A1C #### [place] [address] Urea nitrogen mass conc 29.0 mg/dL High 8.0-22.0 [facility] ([place]) Comment on above: Performed By: #### C BC, ADIFF, ANEU, FIB, APTT, PRO, GFR, TSH, CMP, A1C #### [place] [address] CBCon 01-04-2019 Erythrocyte distribution width Ratio (RBC) 16.0 % High 11.5-15.5 [facility] ([place]) Comment on above: Performed By: #### C BC, ADIFF, ANEU, FIB, APTT, PRO, GFR, TSH, CMP, A1C #### [place] [address] Hematocrit Volume Fraction (Bld) 24.0 % Low 40.0-52.0 [facility] ([place]) Comment on above: Performed By: #### C BC, ADIFF, ANEU, FIB, APTT, PRO, GFR, TSH, CMP, A1C #### [place] [address] Hemoglobin mass conc (Bld) 8.1 G/dL Low 13.0-17.5 [facility] ([place]) Comment on above: Performed By: #### C BC, ADIFF, ANEU, FIB, APTT, PRO, GFR, TSH, CMP, A1C #### [place] [id number] MCH Entitic mass (RBC) 28.2 pg Normal 27.0-33.0 [facility] ([place]) Comment on above: Performed By: #### C BC, ADIFF, ANEU, FIB, APTT, PRO, GFR, TSH, CMP, A1C #### [place] [id number] MCHC mass conc (RBC) 33.6 G/dL Normal 32.0-36.0 [facility] ([place]) Comment on above: Performed By: #### C BC, ADIFF, ANEU, FIB, APTT, PRO, GFR, TSH, CMP, A1C #### [place] [address] MCV Entitic volume (RBC) 84.1 fL Normal 81.0-100.0 [facility] ([place]) Comment on above: Performed By: #### C BC, ADIFF, ANEU, FIB, APTT, PRO, GFR, TSH, CMP, A1C #### [place] [address] Platelet mean volume Entitic volume (Bld) 8.6 fL Normal 6.4-10.5 [facility] ([place]) Comment on above: Performed By: #### C BC, ADIFF, ANEU, FIB, APTT, PRO, GFR, TSH, CMP, A1C #### [place] [address] Platelets #/vol (Bld) 89 10 3/mcL Low 150-450 [facility] ([place]) Comment on above: Performed By: #### C BC, ADIFF, ANEU, FIB, APTT, PRO, GFR, TSH, CMP, A1C #### [place] [address] RBC #/vol (Bld) 2.85 10 6/mcL Low 4.50-6.00 [facility] ([place] Comment on above: Performed By: #### C BC, ADIFF, ANEU, FIB, APTT, PRO, GFR, TSH, CMP, A1C #### [place] [address] WBC #/vol (Bld) 7.40 10 3/mcL Normal 4.50-10.80 [facility] ([place] Comment on above: Performed By: #### C BC, ADIFF, ANEU, FIB, APTT, PRO, GFR, TSH, CMP, A1C #### [place] [address] Final Surgical Pathology Rep jayden 01-03-2019 Final Surgical Pathology Report . Pathology Reports Accession: Collected Date/Time: Received Date/Time: Pathologist: [id number] 01/01/2019 10:15 EST 01/02/2019 07:44 MD MIGUEL BHATTI Final Surgical Pathology Report DIAGNOSIS: AORTIC VALVE, REPLACEMENT: PARTIALLY CALCIFIED AORTIC VALVE LEAFLETS. CLINICAL INFORMATION: Procedure: CORONARY ARTERY BYPASS GRAFTS X USING THE LEFT INTERNAL MAMMARY ARTERY AND THE LEFT GREATER SAPHENOUS VEIN VIA ENDOSCOPY HARVEST. AORTIC VALVE REPLACED WITH INSERTION OF TEMPORARY PACING WIRES. Preoperative diagnosis: CAD AND AORTIC STENOSIS Postoperative diagnosis: SAME SPECIMEN: A AORTIC VALVE GROSS DESCRIPTION: Received in formalin labeled aortic valve are three heart valve cusps averaging 2.3 x 1.5 cm. The tissue ranges from izaguirre to yellow and from supple to nodular and focally calcified. No vegetations are grossly identified. A outside sales account representative section of each cusp is submitted following decalcification in one cassette. Dictated by Yareli CEJA ([facility]) MICROSCOPIC DESCRIPTION: Slides reviewed. Electronically Signed by Pathology Report verified by [facility] Electronically signed by MIGUEL PINZON MD Sign out Date: 01/03/2019 11:41 Performing Lab: [address] Normal [facility] ([place]) Comment on above: Performed By: #### C BC, ADIFF, ANEU, FIB, APTT, PRO, GFR, TSH, CMP, A1C #### [place] [address] .Auto Diffon 01-02-2019 Ammonia mass conc (P) 0.90 10 3/mcL Normal 0.09-1.40 [facility] ([place]) Comment on above: Performed By: #### C BC, ADIFF, ANEU, FIB, APTT, PRO, GFR, TSH, CMP, A1C #### [place] [address] Basophils #/vol (Bld) 0.00 10 3/mcL Normal 0.00-0.27 [facility] ([place]) Comment on above: Performed By: #### C BC, ADIFF, ANEU, FIB, APTT, PRO, GFR, TSH, CMP, A1C #### [place] [address] Basophils/100 WBC (Bld) 0.1 % Normal 0.0-2.5 [facility] ([place]) Comment on above: Performed By: #### C BC, ADIFF, ANEU, FIB, APTT, PRO, GFR, TSH, CMP, A1C #### [address] [address] Eosinophils #/vol (Bld) 0.00 10 3/mcL Normal 0.00-0.65 [facility] ([place]) Comment on above: Performed By: #### C BC, ADIFF, ANEU, FIB, APTT, PRO, GFR, TSH, CMP, A1C #### [address] [address] Eosinophils/100 WBC (Bld) 0.0 % Normal 0.0-6.0 [facility] ([place]) Comment on above: Performed By: #### C BC, ADIFF, ANEU, FIB, APTT, PRO, GFR, TSH, CMP, A1C #### [address] [address] Lymphocytes #/vol (Bld) 1.30 10 3/mcL Normal 0.90-4.32 [facility] ([place]) Comment on above: Performed By: #### C BC, ADIFF, ANEU, FIB, APTT, PRO, GFR, TSH, CMP, A1C #### [address] [address] Lymphocytes/100 WBC (Bld) 11.8 % Low 20.0-40.0 [facility] ([place]) Comment on above: Performed By: #### C BC, ADIFF, ANEU, FIB, APTT, PRO, GFR, TSH, CMP, A1C #### [address] [address] Monocytes/100 WBC (Bld) 8.2 % Normal 2.0-13.0 [facility] ([place]) Comment on above: Performed By: #### C BC, ADIFF, ANEU, FIB, APTT, PRO, GFR, TSH, CMP, A1C #### [address] [address] Neutrophils/100 WBC (Bld) 79.9 % High 50.0-75.0 [facility] ([place]) Comment on above: Performed By: #### C BC, ADIFF, ANEU, FIB, APTT, PRO, GFR, TSH, CMP, A1C #### [address] [address] .GFRon 01-02-2019 GFR >60 Normal [facility] ([place]) Comment on above: Result Comment: GFR Population mean for , Non- Americans Ages 20-29 = 116 mL/min/1.73 sq.m. Ages 30-39 = 107 mL/min/1.73 sq.m. Ages 40-49 = 99 mL/min/1.73 sq.m. Ages 50-59 = 93 mL/min/1.73 sq.m. Ages 60-69 = 85 mL/min/1.73 sq.m. Ages 70+ = 75 mL/min/1.73 sq.m. Chronic Kidney Disease: Less than 60 mL/min/1.73 square meters End Stage Renal Disease: Less than 15 mL/min/1.73 square meters Performed By: #### C BC, ADIFF, ANEU, FIB, APTT, PRO, GFR, TSH, CMP, A1C #### [address] [address] GFR Non- 52 ml/min/1.73sqm Normal [facility] ([place]) Comment on above: Result Comment: GFR Population mean for , Non- Americans Ages 20-29 = 116 mL/min/1.73 sq.m. Ages 30-39 = 107 mL/min/1.73 sq.m. Ages 40-49 = 99 mL/min/1.73 sq.m. Ages 50-59 = 93 mL/min/1.73 sq.m. Ages 60-69 = 85 mL/min/1.73 sq.m. Ages 70+ = 75 mL/min/1.73 sq.m. Chronic Kidney Disease: Less than 60 mL/min/1.73 square meters End Stage Renal Disease: Less than 15 mL/min/1.73 square meters Performed By: #### C BC, ADIFF, ANEU, FIB, APTT, PRO, GFR, TSH, CMP, A1C #### [address] [address] .NEUABSon 01-02-2019 Neutrophils #/vol (Bld) 8.70 10 3/mcL High 2.25-8.10 [facility] ([place]) Comment on above: Performed By: #### C BC, ADIFF, ANEU, FIB, APTT, PRO, GFR, TSH, CMP, A1C #### [address] [address] BGon 01-02-2019 Barometric Pressure 740 mmHg Normal [facility] ([place]) Comment on above: Performed By: #### C BC, ADIFF, ANEU, FIB, APTT, PRO, GFR, TSH, CMP, A1C #### [place] [address] Base excess Calculated molar conc (Bld) 2.4 mmol/L Normal [facility] ([place]) Comment on above: Performed By: #### C BC, ADIFF, ANEU, FIB, APTT, PRO, GFR, TSH, CMP, A1C #### [place] [address] CO2 molar conc 28.2 mmol/L Normal 22.0-30.0 [facility] ([place]) Comment on above: Performed By: #### C BC, ADIFF, ANEU, FIB, APTT, PRO, GFR, TSH, CMP, A1C #### [place] [address] HCO3 molar conc (Bld) 26.9 mmol/L Normal 21.0-29.0 [facility] ([place]) Comment on above: Performed By: #### C BC, ADIFF, ANEU, FIB, APTT, PRO, GFR, TSH, CMP, A1C #### [place] [address] Oxygen ppres (Bld) 87.3 mm[Hg] Normal 74.0-108.0 [facility] ([place]) Comment on above: Performed By: #### C BC, ADIFF, ANEU, FIB, APTT, PRO, GFR, TSH, CMP, A1C #### [place] [address] Oxygen saturation in Blood 97.3 % High 92.0-96.0 [facility] ([place]) Comment on above: Performed By: #### C BC, ADIFF, ANEU, FIB, APTT, PRO, GFR, TSH, CMP, A1C #### [address] [address] pCO2 41.2 mmHg Normal 32.0-46.0 [facility] ([place]) Comment on above: Performed By: #### C BC, ADIFF, ANEU, FIB, APTT, PRO, GFR, TSH, CMP, A1C #### [place] [address] pH (Bld) 7.433 [pH] Normal 7.380-7.46 0 [facility] ([place]) Comment on above: Performed By: #### C BC, ADIFF, ANEU, FIB, APTT, PRO, GFR, TSH, CMP, A1C #### [address] [address] BMPon 01-02-2019 Calcium mass conc 8.0 mg/dL Low 8.4-10.1 [facility] ([place]) Comment on above: Performed By: #### C BC, ADIFF, ANEU, FIB, APTT, PRO, GFR, TSH, CMP, A1C #### [place] [address] Chloride molar conc 106 mmol/L Normal 98-110 [facility] ([place]) Comment on above: Performed By: #### C BC, ADIFF, ANEU, FIB, APTT, PRO, GFR, TSH, CMP, A1C #### [place] [address] CO2 molar conc 28 mmol/L Normal 22-32 [facility] ([place]) Comment on above: Performed By: #### C BC, ADIFF, ANEU, FIB, APTT, PRO, GFR, TSH, CMP, A1C #### [place] [address] Creatinine mass conc 1.32 mg/dL Normal 0.60-1.40 [facility] ([place]) Comment on above: Performed By: #### C BC, ADIFF, ANEU, FIB, APTT, PRO, GFR, TSH, CMP, A1C #### [address] [address] Electrolyte Balance 6.0 mEq/L Normal 4.0-15.0 [facility] ([place]) Comment on above: Performed By: #### C BC, ADIFF, ANEU, FIB, APTT, PRO, GFR, TSH, CMP, A1C #### [place] [address] Glucose mass conc 147 mg/dL High 82-115 [facility] ([place]) Comment on above: Performed By: #### C BC, ADIFF, ANEU, FIB, APTT, PRO, GFR, TSH, CMP, A1C #### [place] [id number] Potassium molar conc 3.8 mmol/L Normal 3.5-5.0 [facility] ([place]) Comment on above: Performed By: #### C BC, ADIFF, ANEU, FIB, APTT, PRO, GFR, TSH, CMP, A1C #### [place] [id number] Sodium molar conc 140 mmol/L Normal 136-145 [facility] ([place]) Comment on above: Performed By: #### C BC, ADIFF, ANEU, FIB, APTT, PRO, GFR, TSH, CMP, A1C #### [place] [address] Urea nitrogen mass conc 20.0 mg/dL Normal 8.0-22.0 [facility] ([place]) Comment on above: Performed By: #### C BC, ADIFF, ANEU, FIB, APTT, PRO, GFR, TSH, CMP, A1C #### [place] [address] Urea nitrogen/Creatinine mass ratio 15.2 ratio Normal 10.0-22.0 [facility] ([place]) Comment on above: Performed By: #### C BC, ADIFF, ANEU, FIB, APTT, PRO, GFR, TSH, CMP, A1C #### [address] [address] CBCon 01-02-2019 Erythrocyte distribution width Ratio (RBC) 14.8 % Normal 11.5-15.5 [facility] ([place]) Comment on above: Performed By: #### C BC, ADIFF, ANEU, FIB, APTT, PRO, GFR, TSH, CMP, A1C #### [place] [address] Hematocrit Volume Fraction (Bld) 23.3 % Low 40.0-52.0 [facility] ([place]) Comment on above: Performed By: #### C BC, ADIFF, ANEU, FIB, APTT, PRO, GFR, TSH, CMP, A1C #### [place] [address] Hemoglobin mass conc (Bld) 8.0 G/dL Low 13.0-17.5 [facility] ([place]) Comment on above: Performed By: #### C BC, ADIFF, ANEU, FIB, APTT, PRO, GFR, TSH, CMP, A1C #### [place] [address] MCH Entitic mass (RBC) 29.1 pg Normal 27.0-33.0 [facility] ([place]) Comment on above: Performed By: #### C BC, ADIFF, ANEU, FIB, APTT, PRO, GFR, TSH, CMP, A1C #### [place] [address] MCHC mass conc (RBC) 34.3 G/dL Normal 32.0-36.0 [facility] ([place]) Comment on above: Performed By: #### C BC, ADIFF, ANEU, FIB, APTT, PRO, GFR, TSH, CMP, A1C #### [place] [address] MCV Entitic volume (RBC) 84.9 fL Normal 81.0-100.0 [facility] ([place]) Comment on above: Performed By: #### C BC, ADIFF, ANEU, FIB, APTT, PRO, GFR, TSH, CMP, A1C #### [place] [address] Platelet mean volume Entitic volume (Bld) 7.9 fL Normal 6.4-10.5 [facility] ([place]) Comment on above: Performed By: #### C BC, ADIFF, ANEU, FIB, APTT, PRO, GFR, TSH, CMP, A1C #### [place] [address] Platelets #/vol (Bld) 131 10 3/mcL Low 150-450 [facility] ([place]) Comment on above: Performed By: #### C BC, ADIFF, ANEU, FIB, APTT, PRO, GFR, TSH, CMP, A1C #### [place] [address] RBC #/vol (Bld) 2.74 10 6/mcL Low 4.50-6.00 [facility] ([place] Comment on above: Performed By: #### C BC, ADIFF, ANEU, FIB, APTT, PRO, GFR, TSH, CMP, A1C #### [place] [address] WBC #/vol (Bld) 10.90 10 3/mcL High 4.50-10.80 [facility] ([place]) Comment on above: Performed By: #### C BC, ADIFF, ANEU, FIB, APTT, PRO, GFR, TSH, CMP, A1C #### [place] [address] HHon 01-02-2019 Hematocrit Volume Fraction (Bld) 26.5 % Low 40.0-52.0 [facility] ([place]) Comment on above: Performed By: #### C BC, ADIFF, ANEU, FIB, APTT, PRO, GFR, TSH, CMP, A1C #### [place] [address] Hemoglobin mass conc (Bld) 9.0 G/dL Low 13.0-17.5 [facility] ([place]) Comment on above: Performed By: #### C BC, ADIFF, ANEU, FIB, APTT, PRO, GFR, TSH, CMP, A1C #### [place] [address] Khadar 01-02-2019 Potassium molar conc 4.0 mmol/L Normal 3.5-5.0 [facility] ([place]) Comment on above: Performed By: #### C BC, ADIFF, ANEU, FIB, APTT, PRO, GFR, TSH, CMP, A1C #### [place] [address] RBC (Product)on 01-02-2019 RBC #/vol (Bld) RBC Ready for Pickup Normal [facility] ([place]) Comment on above: Performed By: #### C BC, ADIFF, ANEU, FIB, APTT, PRO, GFR, TSH, CMP, A1C #### [place] [address] TABOon 01-02-2019 ABO/Rh Interp Negative [facility] ([place]) Comment on above: Performed By: #### C BC, ADIFF, ANEU, FIB, APTT, PRO, GFR, TSH, CMP, A1C #### [place] [address] TABSon 01-02-2019 Antibody Screen Tango Negative Normal [facility] ([place]) Comment on above: Performed By: #### C BC, ADIFF, ANEU, FIB, APTT, PRO, GFR, TSH, CMP, A1C #### [place] [address] XR CHEST 1 VIEWon 01-02-2019 XR CHEST 1 VIEW ORIGINAL Clinical history: Abnormal breath sounds. COMPARISON: Chest x-ray on 01/01/2019. Portable AP radiograph of the chest was obtained at 5:20 AM. The endotracheal tube and the enteric tube have been removed. LEFT subclavian central venous catheter tip is in the superior vena cava. RIGHT chest tube is unchanged. There is new LEFT basilar airspace disease and small LEFT pleural effusion. No pneumothorax is present. RIGHT lung is well aerated, with no acute abnormality. IMPRESSION: New LEFT basilar atelectasis and small LEFT pleural effusion. Interpreted By: Manuel Bueno MD Preliminary Report By: Manuel Bueno MD Electronically Signed By: Manuel Bueno MD Dictated Date: 01/02/2019 5:55:10 AM Prelim Date: 01/02/2019 5:55:10 AM Sign Date: 01/02/2019 5:57:10 AM Normal [facility] ([place]) .GFRon 01-01-2019 GFR >60 Normal [facility] ([place]) Comment on above: Result Comment: GFR Population mean for , Non- Americans Ages 20-29 = 116 mL/min/1.73 sq.m. Ages 30-39 = 107 mL/min/1.73 sq.m. Ages 40-49 = 99 mL/min/1.73 sq.m. Ages 50-59 = 93 mL/min/1.73 sq.m. Ages 60-69 = 85 mL/min/1.73 sq.m. Ages 70+ = 75 mL/min/1.73 sq.m. Chronic Kidney Disease: Less than 60 mL/min/1.73 square meters End Stage Renal Disease: Less than 15 mL/min/1.73 square meters Performed By: #### C BC, ADIFF, ANEU, FIB, APTT, PRO, GFR, TSH, CMP, A1C #### [address] [address] GFR Non- 57 ml/min/1.73sqm Normal [facility] ([place]) Comment on above: Result Comment: GFR Population mean for , Non- Americans Ages 20-29 = 116 mL/min/1.73 sq.m. Ages 30-39 = 107 mL/min/1.73 sq.m. Ages 40-49 = 99 mL/min/1.73 sq.m. Ages 50-59 = 93 mL/min/1.73 sq.m. Ages 60-69 = 85 mL/min/1.73 sq.m. Ages 70+ = 75 mL/min/1.73 sq.m. Chronic Kidney Disease: Less than 60 mL/min/1.73 square meters End Stage Renal Disease: Less than 15 mL/min/1.73 square meters Performed By: #### C BC, ADIFF, ANEU, FIB, APTT, PRO, GFR, TSH, CMP, A1C #### [address] [address] BGon 01-01-2019 Barometric Pressure 746 mmHg Normal [facility] ([place]) Comment on above: Performed By: #### C BC, ADIFF, ANEU, FIB, APTT, PRO, GFR, TSH, CMP, A1C #### [address] [address] Base excess Calculated molar conc (Bld) -0.3 mmol/L Normal [facility] ([place]) Comment on above: Performed By: #### C BC, ADIFF, ANEU, FIB, APTT, PRO, GFR, TSH, CMP, A1C #### [address] [address] CO2 molar conc 25.6 mmol/L Normal 22.0-30.0 [facility] ([place]) Comment on above: Performed By: #### C BC, ADIFF, ANEU, FIB, APTT, PRO, GFR, TSH, CMP, A1C #### [place] [id number] HCO3 molar conc (Bld) 24.4 mmol/L Normal 21.0-29.0 [facility] ([place]) Comment on above: Performed By: #### C BC, ADIFF, ANEU, FIB, APTT, PRO, GFR, TSH, CMP, A1C #### [place] [address] Oxygen ppres (Bld) 124.1 mm[Hg] High 74.0-108.0 [facility] ([place]) Comment on above: Performed By: #### C BC, ADIFF, ANEU, FIB, APTT, PRO, GFR, TSH, CMP, A1C #### [place] [address] Oxygen saturation in Blood 98.4 % High 92.0-96.0 [facility] ([place]) Comment on above: Performed By: #### C BC, ADIFF, ANEU, FIB, APTT, PRO, GFR, TSH, CMP, A1C #### [place] [id number] pCO2 40.0 mmHg Normal 32.0-46.0 [facility] ([place]) Comment on above: Performed By: #### C BC, ADIFF, ANEU, FIB, APTT, PRO, GFR, TSH, CMP, A1C #### [address] [address] pH (Bld) 7.403 [pH] Normal 7.380-7.46 0 [facility] ([place]) Comment on above: Performed By: #### C BC, ADIFF, ANEU, FIB, APTT, PRO, GFR, TSH, CMP, A1C #### [place] [address] Barometric Pressure 749 mmHg Normal [facility] ([place]) Comment on above: Performed By: #### C BC, ADIFF, ANEU, FIB, APTT, PRO, GFR, TSH, CMP, A1C #### [place] [address] Base excess Calculated molar conc (Bld) -0.4 mmol/L Normal [facility] ([place]) Comment on above: Performed By: #### C BC, ADIFF, ANEU, FIB, APTT, PRO, GFR, TSH, CMP, A1C #### [place] [address] CO2 molar conc 26.6 mmol/L Normal 22.0-30.0 [facility] ([place]) Comment on above: Performed By: #### C BC, ADIFF, ANEU, FIB, APTT, PRO, GFR, TSH, CMP, A1C #### [place] [address] HCO3 molar conc (Bld) 25.3 mmol/L Normal 21.0-29.0 [facility] ([place]) Comment on above: Performed By: #### C BC, ADIFF, ANEU, FIB, APTT, PRO, GFR, TSH, CMP, A1C #### [place] [address] Oxygen ppres (Bld) 85.0 mm[Hg] Normal 74.0-108.0 [facility] ([place]) Comment on above: Performed By: #### C BC, ADIFF, ANEU, FIB, APTT, PRO, GFR, TSH, CMP, A1C #### [place] [address] Oxygen saturation in Blood 96.1 % High 92.0-96.0 [facility] ([place]) Comment on above: Performed By: #### C BC, ADIFF, ANEU, FIB, APTT, PRO, GFR, TSH, CMP, A1C #### [place] [address] pCO2 45.0 mmHg Normal 32.0-46.0 [facility] ([place]) Comment on above: Performed By: #### C BC, ADIFF, ANEU, FIB, APTT, PRO, GFR, TSH, CMP, A1C #### [address] [address] pH (Bld) 7.367 [pH] Low 7.380-7.46 0 [facility] ([place]) Comment on above: Performed By: #### C BC, ADIFF, ANEU, FIB, APTT, PRO, GFR, TSH, CMP, A1C #### [address] [address] Barometric Pressure 746 mmHg Normal [facility] ([place]) Comment on above: Performed By: #### C BC, ADIFF, ANEU, FIB, APTT, PRO, GFR, TSH, CMP, A1C #### [address] [address] Base excess Calculated molar conc (Bld) -1.2 mmol/L Normal [facility] ([place]) Comment on above: Performed By: #### C BC, ADIFF, ANEU, FIB, APTT, PRO, GFR, TSH, CMP, A1C #### [address] [address] CO2 molar conc 26.1 mmol/L Normal 22.0-30.0 [facility] ([place]) Comment on above: Performed By: #### C BC, ADIFF, ANEU, FIB, APTT, PRO, GFR, TSH, CMP, A1C #### [address] [address] HCO3 molar conc (Bld) 24.7 mmol/L Normal 21.0-29.0 [facility] ([place]) Comment on above: Performed By: #### C BC, ADIFF, ANEU, FIB, APTT, PRO, GFR, TSH, CMP, A1C #### [address] [address] Oxygen ppres (Bld) 361.6 mm[Hg] High 74.0-108.0 [facility] ([place]) Comment on above: Performed By: #### C BC, ADIFF, ANEU, FIB, APTT, PRO, GFR, TSH, CMP, A1C #### [place] [address] Oxygen saturation in Blood 99.8 % High 92.0-96.0 [facility] ([place]) Comment on above: Performed By: #### C BC, ADIFF, ANEU, FIB, APTT, PRO, GFR, TSH, CMP, A1C #### [place] [id number] pCO2 45.6 mmHg Normal 32.0-46.0 [facility] ([place]) Comment on above: Performed By: #### C BC, ADIFF, ANEU, FIB, APTT, PRO, GFR, TSH, CMP, A1C #### [place] [address] pH (Bld) 7.351 [pH] Low 7.380-7.46 0 [facility] ([place]) Comment on above: Performed By: #### C BC, ADIFF, ANEU, FIB, APTT, PRO, GFR, TSH, CMP, A1C #### [place] [address] BGRPon 01-01-2019 Base Excess - POC -0.4 mmol/L Normal [facility] ([place] Comment on above: Performed By: #### C BC, ADIFF, ANEU, FIB, APTT, PRO, GFR, TSH, CMP, A1C #### [place] [address] Bicarbonate - POC 24.8 mmol/L Normal 21.0-29.0 [facility] ([place]) Comment on above: Performed By: #### C BC, ADIFF, ANEU, FIB, APTT, PRO, GFR, TSH, CMP, A1C #### [place] [address] Oxygen saturation in Blood 98.7 % High 92.0-96.0 [facility] ([place]) Comment on above: Performed By: #### C BC, ADIFF, ANEU, FIB, APTT, PRO, GFR, TSH, CMP, A1C #### [place] [address] PCO2 - POC 43.0 mmHg Normal 32.0-46.0 [facility] ([place]) Comment on above: Performed By: #### C BC, ADIFF, ANEU, FIB, APTT, PRO, GFR, TSH, CMP, A1C #### [place] [id number] pH (poct) - POC 7.379 Low 7.380-7.46 0 [facility] ([place]) Comment on above: Performed By: #### C BC, ADIFF, ANEU, FIB, APTT, PRO, GFR, TSH, CMP, A1C #### [place] [id number] PO2 - POC 448.7 mmHg High 74.0-108.0 [facility] ([place]) Comment on above: Performed By: #### C BC, ADIFF, ANEU, FIB, APTT, PRO, GFR, TSH, CMP, A1C #### [place] [id number] Total CO2 - POC 26.1 mmol/L Normal 22.0-30.0 [facility] ([place]) Comment on above: Performed By: #### C BC, ADIFF, ANEU, FIB, APTT, PRO, GFR, TSH, CMP, A1C #### [place] [id number] Base Excess - POC 0.8 mmol/L Normal [facility] ([place]) Comment on above: Performed By: #### C BC, ADIFF, ANEU, FIB, APTT, PRO, GFR, TSH, CMP, A1C #### [place] [id number] Bicarbonate - POC 26.3 mmol/L Normal 21.0-29.0 [facility] ([place]) Comment on above: Performed By: #### C BC, ADIFF, ANEU, FIB, APTT, PRO, GFR, TSH, CMP, A1C #### [place] [address] Oxygen saturation in Blood 98.6 % High 92.0-96.0 [facility] ([place]) Comment on above: Performed By: #### C BC, ADIFF, ANEU, FIB, APTT, PRO, GFR, TSH, CMP, A1C #### [place] [id number] PCO2 - POC 45.9 mmHg Normal 32.0-46.0 [facility] ([place]) Comment on above: Performed By: #### C BC, ADIFF, ANEU, FIB, APTT, PRO, GFR, TSH, CMP, A1C #### [place] [id number] pH (poct) - POC 7.376 Low 7.380-7.46 0 [facility] ([place]) Comment on above: Performed By: #### C BC, ADIFF, ANEU, FIB, APTT, PRO, GFR, TSH, CMP, A1C #### [place] [id number] PO2 - POC 438.1 mmHg High 74.0-108.0 [facility] ([place]) Comment on above: Performed By: #### C BC, ADIFF, ANEU, FIB, APTT, PRO, GFR, TSH, CMP, A1C #### [place] [id number] Total CO2 - POC 27.7 mmol/L Normal 22.0-30.0 [facility] ([place]) Comment on above: Performed By: #### C BC, ADIFF, ANEU, FIB, APTT, PRO, GFR, TSH, CMP, A1C #### [place] [id number] Base Excess - POC 1.1 mmol/L Normal [facility] ([place]) Comment on above: Performed By: #### C BC, ADIFF, ANEU, FIB, APTT, PRO, GFR, TSH, CMP, A1C #### [place] [address] Bicarbonate - POC 26.9 mmol/L Normal 21.0-29.0 [facility] ([place] Comment on above: Performed By: #### C BC, ADIFF, ANEU, FIB, APTT, PRO, GFR, TSH, CMP, A1C #### [place] [address] Oxygen saturation in Blood 98.3 % High 92.0-96.0 [facility] ([place]) Comment on above: Performed By: #### C BC, ADIFF, ANEU, FIB, APTT, PRO, GFR, TSH, CMP, A1C #### [address] [address] PCO2 - POC 48.0 mmHg High 32.0-46.0 [facility] ([place]) Comment on above: Performed By: #### C BC, ADIFF, ANEU, FIB, APTT, PRO, GFR, TSH, CMP, A1C #### [place] [address] pH (poct) - POC 7.366 Low 7.380-7.46 0 [facility] ([place]) Comment on above: Performed By: #### C BC, ADIFF, ANEU, FIB, APTT, PRO, GFR, TSH, CMP, A1C #### [place] [address] PO2 - POC 327.6 mmHg High 74.0-108.0 [facility] ([place]) Comment on above: Performed By: #### C BC, ADIFF, ANEU, FIB, APTT, PRO, GFR, TSH, CMP, A1C #### [place] [address] Total CO2 - POC 28.4 mmol/L Normal 22.0-30.0 [facility] ([place]) Comment on above: Performed By: #### C BC, ADIFF, ANEU, FIB, APTT, PRO, GFR, TSH, CMP, A1C #### [place] [address] Base Excess - POC -0.6 mmol/L Normal [facility] ([place] Comment on above: Performed By: #### C BC, ADIFF, ANEU, FIB, APTT, PRO, GFR, TSH, CMP, A1C #### [place] [address] Bicarbonate - POC 25.6 mmol/L Normal 21.0-29.0 [facility] ([place] Comment on above: Performed By: #### C BC, ADIFF, ANEU, FIB, APTT, PRO, GFR, TSH, CMP, A1C #### [place] [address] Oxygen saturation in Blood 98.5 % High 92.0-96.0 [facility] ([place]) Comment on above: Performed By: #### C BC, ADIFF, ANEU, FIB, APTT, PRO, GFR, TSH, CMP, A1C #### [place] [address] PCO2 - POC 49.2 mmHg High 32.0-46.0 [facility] ([place]) Comment on above: Performed By: #### C BC, ADIFF, ANEU, FIB, APTT, PRO, GFR, TSH, CMP, A1C #### [place] [address] pH (poct) - POC 7.334 Low 7.380-7.46 0 [facility] ([place]) Comment on above: Performed By: #### C BC, ADIFF, ANEU, FIB, APTT, PRO, GFR, TSH, CMP, A1C #### [place] [address] PO2 - POC 318.2 mmHg High 74.0-108.0 [facility] ([place]) Comment on above: Performed By: #### C BC, ADIFF, ANEU, FIB, APTT, PRO, GFR, TSH, CMP, A1C #### [place] [address] Total CO2 - POC 27.1 mmol/L Normal 22.0-30.0 [facility] ([place]) Comment on above: Performed By: #### C BC, ADIFF, ANEU, FIB, APTT, PRO, GFR, TSH, CMP, A1C #### [place] [address] Base Excess - POC 0.0 mmol/L Normal [facility] ([place]) Comment on above: Performed By: #### C BC, ADIFF, ANEU, FIB, APTT, PRO, GFR, TSH, CMP, A1C #### [place] [address] Bicarbonate - POC 25.1 mmol/L Normal 21.0-29.0 [facility] ([place] Comment on above: Performed By: #### C BC, ADIFF, ANEU, FIB, APTT, PRO, GFR, TSH, CMP, A1C #### [place] [address] Oxygen saturation in Blood 99.1 % High 92.0-96.0 [facility] ([place]) Comment on above: Performed By: #### C BC, ADIFF, ANEU, FIB, APTT, PRO, GFR, TSH, CMP, A1C #### [place] [address] PCO2 - POC 42.6 mmHg Normal 32.0-46.0 [facility] ([place]) Comment on above: Performed By: #### C BC, ADIFF, ANEU, FIB, APTT, PRO, GFR, TSH, CMP, A1C #### [place] [address] pH (poct) - POC 7.388 Normal 7.380-7.46 0 [facility] ([place]) Comment on above: Performed By: #### C BC, ADIFF, ANEU, FIB, APTT, PRO, GFR, TSH, CMP, A1C #### [place] [address] PO2 - POC 498.1 mmHg High 74.0-108.0 [facility] ([place]) Comment on above: Performed By: #### C BC, ADIFF, ANEU, FIB, APTT, PRO, GFR, TSH, CMP, A1C #### [place] [address] Total CO2 - POC 26.4 mmol/L Normal 22.0-30.0 [facility] ([place]) Comment on above: Performed By: #### C BC, ADIFF, ANEU, FIB, APTT, PRO, GFR, TSH, CMP, A1C #### [place] [address] Base Excess - POC 1.4 mmol/L Normal [facility] ([place]) Comment on above: Performed By: #### C BC, ADIFF, ANEU, FIB, APTT, PRO, GFR, TSH, CMP, A1C #### [place] [address] Bicarbonate - POC 26.1 mmol/L Normal 21.0-29.0 [facility] ([place]) Comment on above: Performed By: #### C BC, ADIFF, ANEU, FIB, APTT, PRO, GFR, TSH, CMP, A1C #### [place] [address] Oxygen saturation in Blood 99.1 % High 92.0-96.0 [facility] ([place]) Comment on above: Performed By: #### C BC, ADIFF, ANEU, FIB, APTT, PRO, GFR, TSH, CMP, A1C #### [place] [address] PCO2 - POC 41.5 mmHg Normal 32.0-46.0 [facility] ([place]) Comment on above: Performed By: #### C BC, ADIFF, ANEU, FIB, APTT, PRO, GFR, TSH, CMP, A1C #### [place] [address] pH (poct) - POC 7.416 Normal 7.380-7.46 0 [facility] ([place]) Comment on above: Performed By: #### C BC, ADIFF, ANEU, FIB, APTT, PRO, GFR, TSH, CMP, A1C #### [place] [address] PO2 - POC 375.5 mmHg High 74.0-108.0 [facility] ([place]) Comment on above: Performed By: #### C BC, ADIFF, ANEU, FIB, APTT, PRO, GFR, TSH, CMP, A1C #### [place] [address] Total CO2 - POC 27.3 mmol/L Normal 22.0-30.0 [facility] ([place]) Comment on above: Performed By: #### C BC, ADIFF, ANEU, FIB, APTT, PRO, GFR, TSH, CMP, A1C #### [place] [address] BMPon 01-01-2019 Calcium mass conc 8.2 mg/dL Low 8.4-10.1 [facility] ([place]) Comment on above: Performed By: #### C BC, ADIFF, ANEU, FIB, APTT, PRO, GFR, TSH, CMP, A1C #### [place] [address] CO2 molar conc 26 mmol/L Normal 22-32 [facility] ([place]) Comment on above: Performed By: #### C BC, ADIFF, ANEU, FIB, APTT, PRO, GFR, TSH, CMP, A1C #### [place] [address] Creatinine mass conc 1.22 mg/dL Normal 0.60-1.40 [facility] ([place]) Comment on above: Performed By: #### C BC, ADIFF, ANEU, FIB, APTT, PRO, GFR, TSH, CMP, A1C #### [place] [address] Electrolyte Balance 8.0 mEq/L Normal 4.0-15.0 [facility] ([place]) Comment on above: Performed By: #### C BC, ADIFF, ANEU, FIB, APTT, PRO, GFR, TSH, CMP, A1C #### [place] [address] Glucose mass conc 130 mg/dL High 82-115 [facility] ([place]) Comment on above: Performed By: #### C BC, ADIFF, ANEU, FIB, APTT, PRO, GFR, TSH, CMP, A1C #### [place] [address] Potassium molar conc 3.8 mmol/L Normal 3.5-5.0 [facility] ([place]) Comment on above: Performed By: #### C BC, ADIFF, ANEU, FIB, APTT, PRO, GFR, TSH, CMP, A1C #### [place] [address] Urea nitrogen mass conc 21.0 mg/dL Normal 8.0-22.0 [facility] ([place]) Comment on above: Performed By: #### C BC, ADIFF, ANEU, FIB, APTT, PRO, GFR, TSH, CMP, A1C #### [place] [address] Urea nitrogen/Creatinine mass ratio 17.2 ratio Normal 10.0-22.0 [facility] ([place]) Comment on above: Performed By: #### C BC, ADIFF, ANEU, FIB, APTT, PRO, GFR, TSH, CMP, A1C #### [place] [address] Chloride molar conc 106 mmol/L Normal 98-110 [facility] ([place]) Comment on above: Performed By: #### C BC, ADIFF, ANEU, FIB, APTT, PRO, GFR, TSH, CMP, A1C #### [place] [address] Sodium molar conc 140 mmol/L Normal 136-145 [facility] ([place]) Comment on above: Performed By: #### C BC, ADIFF, ANEU, FIB, APTT, PRO, GFR, TSH, CMP, A1C #### [place] [address] CAIONon 01-01-2019 Calcium Ionized 1.11 mmol/L Low 1.12-1.32 [facility] ([place]) Comment on above: Performed By: #### C BC, ADIFF, ANEU, FIB, APTT, PRO, GFR, TSH, CMP, A1C #### [place] [address] CARPon 01-01-2019 Ionized Calcium - POC 1.20 mmol/L Normal 1.12-1.32 [facility] ([place]) Comment on above: Performed By: #### C BC, ADIFF, ANEU, FIB, APTT, PRO, GFR, TSH, CMP, A1C #### [place] [address] Ionized Calcium - POC 1.11 mmol/L Low 1.12-1.32 [facility] ([place]) Comment on above: Performed By: #### C BC, ADIFF, ANEU, FIB, APTT, PRO, GFR, TSH, CMP, A1C #### [place] [address] Ionized Calcium - POC 1.13 mmol/L Normal 1.12-1.32 [facility] ([place]) Comment on above: Performed By: #### C BC, ADIFF, ANEU, FIB, APTT, PRO, GFR, TSH, CMP, A1C #### [place] [address] Ionized Calcium - POC 1.17 mmol/L Normal 1.12-1.32 [facility] ([place]) Comment on above: Performed By: #### C BC, ADIFF, ANEU, FIB, APTT, PRO, GFR, TSH, CMP, A1C #### [place] [address] Ionized Calcium - POC 1.21 mmol/L Normal 1.12-1.32 [facility] ([place]) Comment on above: Performed By: #### C BC, ADIFF, ANEU, FIB, APTT, PRO, GFR, TSH, CMP, A1C #### [place] [address] Ionized Calcium - POC 1.22 mmol/L Normal 1.12-1.32 [facility] ([place]) Comment on above: Performed By: #### C BC, ADIFF, ANEU, FIB, APTT, PRO, GFR, TSH, CMP, A1C #### [place] [address] CLRPon 01-01-2019 Chloride molar conc 101 mmol/L Normal 98-110 [facility] ([place]) Comment on above: Performed By: #### C BC, ADIFF, ANEU, FIB, APTT, PRO, GFR, TSH, CMP, A1C #### [place] [address] Chloride molar conc 100 mmol/L Normal 98-110 [facility] ([place]) Comment on above: Performed By: #### C BC, ADIFF, ANEU, FIB, APTT, PRO, GFR, TSH, CMP, A1C #### [place] [address] Chloride molar conc 100 mmol/L Normal 98-110 [facility] ([place]) Comment on above: Performed By: #### C BC, ADIFF, ANEU, FIB, APTT, PRO, GFR, TSH, CMP, A1C #### [address] [address] Chloride molar conc 98 mmol/L Normal 98-110 [facility] ([place]) Comment on above: Performed By: #### C BC, ADIFF, ANEU, FIB, APTT, PRO, GFR, TSH, CMP, A1C #### [place] [address] Chloride molar conc 100 mmol/L Normal 98-110 [facility] ([place]) Comment on above: Performed By: #### C BC, ADIFF, ANEU, FIB, APTT, PRO, GFR, TSH, CMP, A1C #### [place] [address] Chloride molar conc 100 mmol/L Normal 98-110 [facility] ([place]) Comment on above: Performed By: #### C BC, ADIFF, ANEU, FIB, APTT, PRO, GFR, TSH, CMP, A1C #### [place] [id number] GLURPon 01-01-2019 Glucose mass conc 149 mg/dL High [address] [place] [address] ([place]) Comment on above: Performed By: #### C BC, ADIFF, ANEU, FIB, APTT, PRO, GFR, TSH, CMP, A1C #### [place] [address] Glucose mass conc 152 mg/dL High [address] [place] [address] ([place]) Comment on above: Performed By: #### C BC, ADIFF, ANEU, FIB, APTT, PRO, GFR, TSH, CMP, A1C #### [place] [address] Glucose mass conc 151 mg/dL High [address] [place] [address] ([place]) Comment on above: Performed By: #### C BC, ADIFF, ANEU, FIB, APTT, PRO, GFR, TSH, CMP, A1C #### [place] [address] Glucose mass conc 142 mg/dL High [address] [place] [address] ([place]) Comment on above: Performed By: #### C BC, ADIFF, ANEU, FIB, APTT, PRO, GFR, TSH, CMP, A1C #### [place] [address] Glucose mass conc 155 mg/dL High 82-115 [facility] ([place]) Comment on above: Performed By: #### C BC, ADIFF, ANEU, FIB, APTT, PRO, GFR, TSH, CMP, A1C #### [place] [id number] Glucose mass conc 166 mg/dL High 82-115 [facility] ([place]) Comment on above: Performed By: #### C BC, ADIFF, ANEU, FIB, APTT, PRO, GFR, TSH, CMP, A1C #### [address] [address] HCTRPon 01-01-2019 Hematocrit Volume Fraction (Bld) 30.0 % Low 42.0-52.0 [facility] ([place]) Comment on above: Performed By: #### C BC, ADIFF, ANEU, FIB, APTT, PRO, GFR, TSH, CMP, A1C #### [place] [address] Hematocrit Volume Fraction (Bld) 29.0 % Low 42.0-52.0 [facility] ([place]) Comment on above: Performed By: #### C BC, ADIFF, ANEU, FIB, APTT, PRO, GFR, TSH, CMP, A1C #### [place] [address] Hematocrit Volume Fraction (Bld) 30.0 % Low 42.0-52.0 [facility] ([place]) Comment on above: Performed By: #### C BC, ADIFF, ANEU, FIB, APTT, PRO, GFR, TSH, CMP, A1C #### [place] [address] Hematocrit Volume Fraction (Bld) 29.0 % Low 42.0-52.0 [facility] ([place]) Comment on above: Performed By: #### C BC, ADIFF, ANEU, FIB, APTT, PRO, GFR, TSH, CMP, A1C #### [place] [address] Hematocrit Volume Fraction (Bld) 37.0 % Low 42.0-52.0 [facility] ([place]) Comment on above: Performed By: #### C BC, ADIFF, ANEU, FIB, APTT, PRO, GFR, TSH, CMP, A1C #### [place] [address] Hematocrit Volume Fraction (Bld) 39.0 % Low 42.0-52.0 [facility] ([place]) Comment on above: Performed By: #### C BC, ADIFF, ANEU, FIB, APTT, PRO, GFR, TSH, CMP, A1C #### [address] [address] HGBRPon 01-01-2019 Hemoglobin mass conc (Bld) 10.1 G/dL Low 13.0-17.5 [facility] ([place]) Comment on above: Performed By: #### C BC, ADIFF, ANEU, FIB, APTT, PRO, GFR, TSH, CMP, A1C #### [place] [address] Hemoglobin mass conc (Bld) 9.9 G/dL Low 13.0-17.5 [facility] ([place]) Comment on above: Performed By: #### C BC, ADIFF, ANEU, FIB, APTT, PRO, GFR, TSH, CMP, A1C #### [place] [address] Hemoglobin mass conc (Bld) 10.1 G/dL Low 13.0-17.5 [facility] ([place]) Comment on above: Performed By: #### C BC, ADIFF, ANEU, FIB, APTT, PRO, GFR, TSH, CMP, A1C #### [place] [address] Hemoglobin mass conc (Bld) 10.0 G/dL Low 13.0-17.5 [facility] ([place]) Comment on above: Performed By: #### C BC, ADIFF, ANEU, FIB, APTT, PRO, GFR, TSH, CMP, A1C #### [place] [address] Hemoglobin mass conc (Bld) 12.6 G/dL Low 13.0-17.5 [facility] ([place]) Comment on above: Performed By: #### C BC, ADIFF, ANEU, FIB, APTT, PRO, GFR, TSH, CMP, A1C #### [place] [address] Hemoglobin mass conc (Bld) 13.1 G/dL Normal 13.0-17.5 [facility] ([place]) Comment on above: Performed By: #### C BC, ADIFF, ANEU, FIB, APTT, PRO, GFR, TSH, CMP, A1C #### [place] [address] HHon 01-01-2019 Hematocrit Volume Fraction (Bld) 30.0 % Low 40.0-52.0 [facility] ([place]) Comment on above: Performed By: #### C BC, ADIFF, ANEU, FIB, APTT, PRO, GFR, TSH, CMP, A1C #### [place] [address] Hemoglobin mass conc (Bld) 10.2 G/dL Low 13.0-17.5 [facility] ([place]) Comment on above: Performed By: #### C BC, ADIFF, ANEU, FIB, APTT, PRO, GFR, TSH, CMP, A1C #### [place] [address] Khadar 01-01-2019 Potassium molar conc 4.0 mmol/L Normal 3.5-5.0 [facility] ([place]) Comment on above: Performed By: #### C BC, ADIFF, ANEU, FIB, APTT, PRO, GFR, TSH, CMP, A1C #### [place] [address] Potassium molar conc 3.8 mmol/L Normal 3.5-5.0 [facility] ([place]) Comment on above: Performed By: #### C BC, ADIFF, ANEU, FIB, APTT, PRO, GFR, TSH, CMP, A1C #### [place] [address] KRPon 01-01-2019 Potassium molar conc 4.2 mmol/L Normal 3.5-5.0 [facility] ([place]) Comment on above: Performed By: #### C BC, ADIFF, ANEU, FIB, APTT, PRO, GFR, TSH, CMP, A1C #### [place] [address] Potassium molar conc 4.6 mmol/L Normal 3.5-5.0 [facility] ([place]) Comment on above: Performed By: #### C BC, ADIFF, ANEU, FIB, APTT, PRO, GFR, TSH, CMP, A1C #### [place] [address] Potassium molar conc 4.8 mmol/L Normal 3.5-5.0 [facility] ([place]) Comment on above: Performed By: #### C BC, ADIFF, ANEU, FIB, APTT, PRO, GFR, TSH, CMP, A1C #### [place] [address] Potassium molar conc 4.2 mmol/L Normal 3.5-5.0 [facility] ([place]) Comment on above: Performed By: #### C BC, ADIFF, ANEU, FIB, APTT, PRO, GFR, TSH, CMP, A1C #### [place] [address] Potassium molar conc 3.9 mmol/L Normal 3.5-5.0 [facility] ([place]) Comment on above: Performed By: #### C BC, ADIFF, ANEU, FIB, APTT, PRO, GFR, TSH, CMP, A1C #### [place] [address] Potassium molar conc 4.0 mmol/L Normal 3.5-5.0 [facility] ([place]) Comment on above: Performed By: #### C BC, ADIFF, ANEU, FIB, APTT, PRO, GFR, TSH, CMP, A1C #### [place] [address] MGon 01-01-2019 Magnesium mass conc 3.1 mg/dL High 1.6-2.4 [facility] ([place]) Comment on above: Performed By: #### C BC, ADIFF, ANEU, FIB, APTT, PRO, GFR, TSH, CMP, A1C #### [place] [address] NARPon 01-01-2019 Sodium molar conc 135 mmol/L Low 136-145 [facility] ([place]) Comment on above: Performed By: #### C BC, ADIFF, ANEU, FIB, APTT, PRO, GFR, TSH, CMP, A1C #### [place] [address] Sodium molar conc 133 mmol/L Low 136-145 [facility] ([place]) Comment on above: Performed By: #### C BC, ADIFF, ANEU, FIB, APTT, PRO, GFR, TSH, CMP, A1C #### [place] [address] Sodium molar conc 133 mmol/L Low 136-145 [facility] ([place]) Comment on above: Performed By: #### C BC, ADIFF, ANEU, FIB, APTT, PRO, GFR, TSH, CMP, A1C #### [place] [address] Sodium molar conc 131 mmol/L Low 136-145 [facility] ([place]) Comment on above: Performed By: #### C BC, ADIFF, ANEU, FIB, APTT, PRO, GFR, TSH, CMP, A1C #### [place] [address] Sodium molar conc 135 mmol/L Low 136-145 [facility] ([place]) Comment on above: Performed By: #### C BC, ADIFF, ANEU, FIB, APTT, PRO, GFR, TSH, CMP, A1C #### [place] [address] Sodium molar conc 135 mmol/L Low 136-145 [facility] ([place]) Comment on above: Performed By: #### C BC, ADIFF, ANEU, FIB, APTT, PRO, GFR, TSH, CMP, A1C #### [place] [address] PHOSon 01-01-2019 Phosphate mass conc 1.6 mg/dL Low 2.5-4.5 [facility] ([place]) Comment on above: Performed By: #### C BC, ADIFF, ANEU, FIB, APTT, PRO, GFR, TSH, CMP, A1C #### [place] [id number] [address] [place] [id number] Platelet (Product)on 019 Platelets #/vol (Bld) Platelet Ready for Pickup Normal [facility] ([place]) Comment on above: Order Comment: ON HO LD FOR CVOR Performed By: #### C BC, ADIFF, ANEU, FIB, APTT, PRO, GFR, TSH, CMP, A1C #### [address] [address] RBC (Product)on 01-01-2019 RBC #/vol (Bld) RBC Ready for Pickup Normal [facility] ([place]) Comment on above: Performed By: #### C BC, ADIFF, ANEU, FIB, APTT, PRO, GFR, TSH, CMP, A1C #### [address] [address] XR ABDOMEN APon 01-01-2019 XR ABDOMEN AP ORIGINAL XR ABDOMEN AP 1:10 PM CLINICAL STATEMENT: Check NG tube placement. COMPARISON: None FINDINGS: Large bore enteric tube terminates in the proximal stomach. Other support appliances have been described on a chest radiograph of the same date. IMPRESSION: The enteric tube terminates within the proximal stomach. Interpreted By: Kassandra Calvin MD Preliminary Report By: Kassandra Calvin MD Electronically Signed By: Kassandra Calvin MD Dictated Date: 01/01/2019 1:37:53 PM Prelim Date: 01/01/2019 1:37:53 PM Sign Date: 01/01/2019 1:38:31 PM Normal [facility] ([place]) XR CHEST 1 VIEWon 01-01-2019 XR CHEST 1 VIEW ORIGINAL XR CHEST 1 VIEW 1:10 PM CLINICAL STATEMENT: Check line placement. COMPARISON: 12/26/2018 FINDINGS: Patient is status post median sternotomy. The endotracheal tube terminates 4 cm above the paulo. The large bore enteric tube courses below the diaphragm. LEFT subclavian central line enters the SVC. Mediastinal drains are at midline. Chest tube overlies the RIGHT hemithorax. Lung volumes are marginally low. IMPRESSION: Interval median sternotomy. Line and tube placement as above. Interpreted By: Kassandra Calvin MD Preliminary Report By: Kassandra Calvin MD Electronically Signed By: Kassandra Calvin MD Dictated Date: 01/01/2019 1:35:46 PM Prelim Date: 01/01/2019 1:35:46 PM Sign Date: 01/01/2019 1:37:42 PM Normal [facility] ([place]) CT ANGIOGRAPHY CHEST W/CONTR [place] 12-30-2018 CT ANGIOGRAPHY CHEST W/CONTRAST ORIGINAL CT ANGIOGRAPHY CHEST W/CONTRAST: Multiplanar sagittal, axial, coronal, and 3D reconstructions were reviewed on a separate workstation. CLINICAL INDICATION: CAD AORTIC STENOSIS COMPARISON: None TECHNIQUE: This exam was performed according to our departmental dose-optimization program which includes automated exposure control, adjustment of the mA and/or kVp according to patient size and/or use of iterative reconstruction technique where applicable. FINDINGS: There is marked diffuse coronary calcification noted. There is moderate aortic valve cusp calcifications. The valve appears to be tricuspid. Both internal mammary arteries are patent without significant calcification. Three-vessel aortic arch is noted without critical stenosis of the great vessel origins. Thoracic aorta demonstrates moderate atherosclerosis. Thoracic aortic measurements at various levels: Sinuses of Valsalva: 4.0 cm Sinotubular junction: 3.0 cm Main pulmonary artery: 4.4 cm Arch: 3.3 cm Proximal descending colon 3.5 cm Aortic hiatus: 2.8 cm No consolidation. No pleural effusion. Patent trachea and mainstem bronchi. No pneumothorax. Heart is not enlarged. No pericardial effusion. No axillary, mediastinal, or hilar adenopathy. No suspicious osseous lesion. 1.6 cm hypodense nodule in the LEFT lobe of the thyroid noted. Visualized abdomen demonstrates a small hiatal hernia. There is mild distal esophageal wall thickening measuring 7 mm. IMPRESSION: 1. 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 2. Marked coronary artery and aortic valve cusp calcifications. Patent internal mammary arteries. 3. 1.6 cm LEFT thyroid lobe nodule. Recommend thyroid ultrasound as per guidelines below. 4. Mild distal esophageal wall thickening could reflect esophagitis. Consider further evaluation with DJD. Recommendations for f/u of Incidental Thyroid Nodules (ITN) found on CT, MRI, NM and Extrathyroidal US based on the ACR white paper and Guerra 3-tiered system for managing ITNs: 1. Further evaluation by thyroid US recommended for: - Solitary ITN with high risk imaging features (locally invasive nodule or suspicious lymph nodes) - Solitary ITN of any size in pediatric patients < 18 years of age - Solitary ITN > 1 cm in axial plane in patients between 18 and 35 years of age - Solitary ITN > 1.5 cm in axial plane in patients > 35 years of age - Heterogeneous enlarged thyroid gland - ITN avid on FDG-PET or other nuclear medicine (MIBI and octreotide) scans. FNA biopsy is also recommended for PET avid nodules. 2. No f/u is necessary for ITNs not meeting the above criteria. 3. For multiple thyroid nodules, the above recommendations for solitary ITN are to be applied to the largest nodule. 4. No US or f/u recommended for ITNs without high risk features in patients with limited life expectancy or significant co-morbidities, unless clinically warranted. 5. These recommendations do not apply to patients with increased risk for thyroid cancer or patients with symptomatic thyroid disease. Interpreted By: Summer Bruner MD Preliminary Report By: Summer Bruner MD Electronically Signed By: Summer Bruner MD Dictated Date: 12/30/2018 2:30:41 PM Prelim Date: 12/30/2018 2:30:41 PM Sign Date: 12/30/2018 2:42:23 PM Normal [facility] ([place]) .Auto Diffon 12-26-2018 Ammonia mass conc (P) 0.50 10 3/mcL Normal 0.09-1.40 [facility] ([place]) Comment on above: Performed By: #### C BC, ADIFF, ANEU, FIB, APTT, PRO, GFR, TSH, CMP, A1C #### [address] [address] Basophils #/vol (Bld) 0.00 10 3/mcL Normal 0.00-0.27 [facility] ([place]) Comment on above: Performed By: #### C BC, ADIFF, ANEU, FIB, APTT, PRO, GFR, TSH, CMP, A1C #### [address] [address] Basophils/100 WBC (Bld) 0.7 % Normal 0.0-2.5 [facility] ([place]) Comment on above: Performed By: #### C BC, ADIFF, ANEU, FIB, APTT, PRO, GFR, TSH, CMP, A1C #### [address] [address] Eosinophils #/vol (Bld) 0.30 10 3/mcL Normal 0.00-0.65 [facility] ([place]) Comment on above: Performed By: #### C BC, ADIFF, ANEU, FIB, APTT, PRO, GFR, TSH, CMP, A1C #### [address] [address] Eosinophils/100 WBC (Bld) 3.9 % Normal 0.0-6.0 [facility] ([place]) Comment on above: Performed By: #### C BC, ADIFF, ANEU, FIB, APTT, PRO, GFR, TSH, CMP, A1C #### [address] [address] Lymphocytes #/vol (Bld) 1.90 10 3/mcL Normal 0.90-4.32 [facility] ([place]) Comment on above: Performed By: #### C BC, ADIFF, ANEU, FIB, APTT, PRO, GFR, TSH, CMP, A1C #### [address] [address] Lymphocytes/100 WBC (Bld) 28.9 % Normal 20.0-40.0 [facility] ([place]) Comment on above: Performed By: #### C BC, ADIFF, ANEU, FIB, APTT, PRO, GFR, TSH, CMP, A1C #### [address] [address] Monocytes/100 WBC (Bld) 8.1 % Normal 2.0-13.0 [facility] ([place]) Comment on above: Performed By: #### C BC, ADIFF, ANEU, FIB, APTT, PRO, GFR, TSH, CMP, A1C #### [address] [address] Neutrophils/100 WBC (Bld) 58.4 % Normal 50.0-75.0 [facility] ([place]) Comment on above: Performed By: #### C BC, ADIFF, ANEU, FIB, APTT, PRO, GFR, TSH, CMP, A1C #### [address] [address] .GFRon 02-13-2019 GFR Non- >60 Normal [facility] ([place]) Comment on above: Result Comment: GFR Population mean for , Non- Americans Ages 20-29 = 116 mL/min/1.73 sq.m. Ages 30-39 = 107 mL/min/1.73 sq.m. Ages 40-49 = 99 mL/min/1.73 sq.m. Ages 50-59 = 93 mL/min/1.73 sq.m. Ages 60-69 = 85 mL/min/1.73 sq.m. Ages 70+ = 75 mL/min/1.73 sq.m. Chronic Kidney Disease: Less than 60 mL/min/1.73 square meters End Stage Renal Disease: Less than 15 mL/min/1.73 square meters Performed By: #### C BC, ADIFF, ANEU, FIB, APTT, PRO, GFR, TSH, CMP, A1C #### [place] [address] GFR >60 Normal [facility] ([place]) Comment on above: Result Comment: GFR Population mean for , Non- Americans Ages 20-29 = 116 mL/min/1.73 sq.m. Ages 30-39 = 107 mL/min/1.73 sq.m. Ages 40-49 = 99 mL/min/1.73 sq.m. Ages 50-59 = 93 mL/min/1.73 sq.m. Ages 60-69 = 85 mL/min/1.73 sq.m. Ages 70+ = 75 mL/min/1.73 sq.m. Chronic Kidney Disease: Less than 60 mL/min/1.73 square meters End Stage Renal Disease: Less than 15 mL/min/1.73 square meters Performed By: #### C BC, ADIFF, ANEU, FIB, APTT, PRO, GFR, TSH, CMP, A1C #### [place] [id number] .NEUABSon 12-26-2018 Neutrophils #/vol (Bld) 3.80 10 3/mcL Normal 2.25-8.10 [facility] ([place]) Comment on above: Performed By: #### C BC, ADIFF, ANEU, FIB, APTT, PRO, GFR, TSH, CMP, A1C #### [place] [id number] A1Con 12-26-2018 Hemoglobin A1c/Hemoglobin.total mass fraction (Bld) 6.8 % High 4.0-6.0 [facility] ([place]) Comment on above: Performed By: #### C BC, ADIFF, ANEU, FIB, APTT, PRO, GFR, TSH, CMP, A1C #### [place] [id number] APTTon 12-26-2018 aPTT Coag time (Bld) Unknown Normal [facility] ([place]) Comment on above: Performed By: #### C BC, ADIFF, ANEU, FIB, APTT, PRO, GFR, TSH, CMP, A1C #### [place] [address] aPTT Coag time (Bld) 28.6 s Normal 25.0-35.0 [facility] ([place]) Comment on above: Result Comment: For Heparin anticoagulation therapy, the recommended therapeutic range is: 54-77 seconds (APTT Correlation with Anti-Xa therapeutic range of 0.3-0.7 units/ml). PLEASE REFERENCE THE PHARMACY PROTOCOL FOR DOSING. Performed By: #### C BC, ADIFF, ANEU, FIB, APTT, PRO, GFR, TSH, CMP, A1C #### [place] [address] CBCon 12-26-2018 Erythrocyte distribution width Ratio (RBC) 14.8 % Normal 11.5-15.5 [facility] ([place]) Comment on above: Performed By: #### C BC, ADIFF, ANEU, FIB, APTT, PRO, GFR, TSH, CMP, A1C #### [place] [address] Hematocrit Volume Fraction (Bld) 38.3 % Low 40.0-52.0 [facility] ([place]) Comment on above: Performed By: #### C BC, ADIFF, ANEU, FIB, APTT, PRO, GFR, TSH, CMP, A1C #### [place] [address] Hemoglobin mass conc (Bld) 13.2 G/dL Normal 13.0-17.5 [facility] ([place]) Comment on above: Performed By: #### C BC, ADIFF, ANEU, FIB, APTT, PRO, GFR, TSH, CMP, A1C #### [place] [address] MCH Entitic mass (RBC) 28.8 pg Normal 27.0-33.0 [facility] ([place]) Comment on above: Performed By: #### C BC, ADIFF, ANEU, FIB, APTT, PRO, GFR, TSH, CMP, A1C #### [place] [address] MCHC mass conc (RBC) 34.5 G/dL Normal 32.0-36.0 [facility] ([place]) Comment on above: Performed By: #### C BC, ADIFF, ANEU, FIB, APTT, PRO, GFR, TSH, CMP, A1C #### [place] [address] MCV Entitic volume (RBC) 83.3 fL Normal 81.0-100.0 [facility] ([place]) Comment on above: Performed By: #### C BC, ADIFF, ANEU, FIB, APTT, PRO, GFR, TSH, CMP, A1C #### [place] [address] Platelet mean volume Entitic volume (Bld) 8.0 fL Normal 6.4-10.5 [facility] ([place]) Comment on above: Performed By: #### C BC, ADIFF, ANEU, FIB, APTT, PRO, GFR, TSH, CMP, A1C #### [address] [address] Platelets #/vol (Bld) 176 10 3/mcL Normal 150-450 A [facility] ([place]) Comment on above: Performed By: #### C BC, ADIFF, ANEU, FIB, APTT, PRO, GFR, TSH, CMP, A1C #### [address] [address] RBC #/vol (Bld) 4.59 10 6/mcL Normal 4.50-6.00 [facility] ([place] Comment on above: Performed By: #### C BC, ADIFF, ANEU, FIB, APTT, PRO, GFR, TSH, CMP, A1C #### [address] [address] WBC #/vol (Bld) 6.50 10 3/mcL Normal 4.50-10.80 [facility] ([place] Comment on above: Performed By: #### C BC, ADIFF, ANEU, FIB, APTT, PRO, GFR, TSH, CMP, A1C #### [address] [address] CMPon 12-26-2018 Albumin/Globulin mass ratio 1.5 {ratio} Normal 0.9-1.6 [facility] ([place]) Comment on above: Performed By: #### C BC, ADIFF, ANEU, FIB, APTT, PRO, GFR, TSH, CMP, A1C #### [place] [address] ALP enzyme act/vol 65 U/L Normal 38-126 [facility] ([place]) Comment on above: Performed By: #### C BC, ADIFF, ANEU, FIB, APTT, PRO, GFR, TSH, CMP, A1C #### [place] [address] Bili Total 0.4 mg/dL Normal 0.2-1.2 [facility] ([place]) Comment on above: Performed By: #### C BC, ADIFF, ANEU, FIB, APTT, PRO, GFR, TSH, CMP, A1C #### [place] [address] Globulin mass conc (S) 2.9 G/dL Normal 1.5-3.8 [facility] ([place]) Comment on above: Performed By: #### C BC, ADIFF, ANEU, FIB, APTT, PRO, GFR, TSH, CMP, A1C #### [place] [address] Protein mass conc 7.2 G/dL Normal 6.0-8.5 [facility] ([place]) Comment on above: Performed By: #### C BC, ADIFF, ANEU, FIB, APTT, PRO, GFR, TSH, CMP, A1C #### [address] [address] Albumin mass conc 4.3 G/dL Normal 3.2-4.8 [facility] ([place]) Comment on above: Performed By: #### C BC, ADIFF, ANEU, FIB, APTT, PRO, GFR, TSH, CMP, A1C #### [place] [address] ALT enzyme act/vol 39 U/L Normal 12-55 [facility] ([place] Comment on above: Performed By: #### C BC, ADIFF, ANEU, FIB, APTT, PRO, GFR, TSH, CMP, A1C #### [place] [address] AST enzyme act/vol 77 U/L High 8-34 [facility] ([place]) Comment on above: Performed By: #### C BC, ADIFF, ANEU, FIB, APTT, PRO, GFR, TSH, CMP, A1C #### [place] [address] Calcium mass conc 9.5 mg/dL Normal 8.4-10.1 [facility] ([place]) Comment on above: Performed By: #### C BC, ADIFF, ANEU, FIB, APTT, PRO, GFR, TSH, CMP, A1C #### [address] [address] Chloride molar conc 99 mmol/L Normal 98-110 [facility] ([place]) Comment on above: Performed By: #### C BC, ADIFF, ANEU, FIB, APTT, PRO, GFR, TSH, CMP, A1C #### [address] [address] CO2 molar conc 29 mmol/L Normal 22-32 [facility] ([place]) Comment on above: Performed By: #### C BC, ADIFF, ANEU, FIB, APTT, PRO, GFR, TSH, CMP, A1C #### [place] [address] Creatinine mass conc 1.13 mg/dL Normal 0.60-1.40 [facility] ([place]) Comment on above: Performed By: #### C BC, ADIFF, ANEU, FIB, APTT, PRO, GFR, TSH, CMP, A1C #### [address] [address] Electrolyte Balance 9.0 mEq/L Normal 4.0-15.0 [facility] ([place]) Comment on above: Performed By: #### C BC, ADIFF, ANEU, FIB, APTT, PRO, GFR, TSH, CMP, A1C #### [address] [address] Glucose mass conc 105 mg/dL Normal 82-115 [facility] ([place]) Comment on above: Performed By: #### C BC, ADIFF, ANEU, FIB, APTT, PRO, GFR, TSH, CMP, A1C #### [address] [address] Potassium molar conc 3.7 mmol/L Normal 3.5-5.0 [facility] ([place]) Comment on above: Performed By: #### C BC, ADIFF, ANEU, FIB, APTT, PRO, GFR, TSH, CMP, A1C #### [place] [id number] Sodium molar conc 137 mmol/L Normal 136-145 [facility] ([place]) Comment on above: Performed By: #### C BC, ADIFF, ANEU, FIB, APTT, PRO, GFR, TSH, CMP, A1C #### [place] [id number] Urea nitrogen mass conc 18.0 mg/dL Normal 8.0-22.0 [facility] ([place]) Comment on above: Performed By: #### C BC, ADIFF, ANEU, FIB, APTT, PRO, GFR, TSH, CMP, A1C #### [place] [id number] Urea nitrogen/Creatinine mass ratio 15.9 ratio Normal 10.0-22.0 [facility] ([place]) Comment on above: Performed By: #### C BC, ADIFF, ANEU, FIB, APTT, PRO, GFR, TSH, CMP, A1C #### [address] [place], [place] [address] FIBon 12-26-2018 Fibrinogen 329 mg/dL Normal 250-550 [facility] ([place]) Comment on above: Performed By: #### C BC, ADIFF, ANEU, FIB, APTT, PRO, GFR, TSH, CMP, A1C #### [address] [address] PROon 12-26-2018 INR Coag RelTime (PPP) 0.9 {INR} Normal [facility] ([place]) Comment on above: Result Comment: [employer] (CHEST, 1992, 102:[id number]-[id number]) recommended therapeutic range for oral anticoagulant therapy is: LOW RISK: Prophylaxis of venous thrombosis INR: 2.0-3.0 Treatment of pulmonary embolism 2.0-3.0 Prevention of systemic embolism 2.0-3.0 HIGH RISK: Mechanical prosthetic valves 2.5-3.5 Performed By: #### C BC, ADIFF, ANEU, FIB, APTT, PRO, GFR, TSH, CMP, A1C #### [place] [address] Prothrombin time (PT) Coag time (PPP) 10.8 s Normal 9.0-14.6 [facility] ([place]) Comment on above: Result Comment: Effe ctive 05/27/08, Protime results may be affected by some antibiotics (i.e. Ciprofloxacin, Azithromycin, Bactrim) which may potentiate the action of oral anticoagulants, with further increases in Protime/INR. Performed By: #### C BC, ADIFF, ANEU, FIB, APTT, PRO, GFR, TSH, CMP, A1C #### [address] [address] TABOon 12-26-2018 ABO/Rh Interp Negative [facility] ([place]) Comment on above: Performed By: #### C BC, ADIFF, ANEU, FIB, APTT, PRO, GFR, TSH, CMP, A1C #### [address] [address] TABSon 12-26-2018 Antibody Screen Tango Negative Normal [facility] ([place]) Comment on above: Performed By: #### C BC, ADIFF, ANEU, FIB, APTT, PRO, GFR, TSH, CMP, A1C #### [address] [address] TSHon 12-26-2018 Thyrotropin Qn 1.210 mcIU/mL Normal 0.360-3.74 0 [facility] ([place]) Comment on above: Result Comment: Eduardo snow note as of 05/27/17 new pediatric reference intervals were added for this test. Performed By: #### C BC, ADIFF, ANEU, FIB, APTT, PRO, GFR, TSH, CMP, A1C #### [place] [address] UAon 12-26-2018 Color Nom (U) Straw Normal [facility] ([place]) Comment on above: Performed By: #### C BC, ADIFF, ANEU, FIB, APTT, PRO, GFR, TSH, CMP, A1C #### [place] [address] Glucose mass conc (U) Negative Normal Negative [facility] ([place]) Comment on above: Performed By: #### C BC, ADIFF, ANEU, FIB, APTT, PRO, GFR, TSH, CMP, A1C #### [place] [address] Ketones Ql (U) Negative Normal Neg-Trace [facility] ([place]) Comment on above: Performed By: #### C BC, ADIFF, ANEU, FIB, APTT, PRO, GFR, TSH, CMP, A1C #### [place] [address] UA Appear Clear Normal Clear [facility] ([place]) Comment on above: Performed By: #### C BC, ADIFF, ANEU, FIB, APTT, PRO, GFR, TSH, CMP, A1C #### [place] [id number] UA Blood Negative Normal Neg-Trace [facility] ([place]) Comment on above: Performed By: #### C BC, ADIFF, ANEU, FIB, APTT, PRO, GFR, TSH, CMP, A1C #### [place] [id number] UA Leuk Est Trace Normal Negative [facility] ([place]) Comment on above: Performed By: #### C BC, ADIFF, ANEU, FIB, APTT, PRO, GFR, TSH, CMP, A1C #### [address] [address] UA Nitrite Negative Normal Negative [facility] ([place]) Comment on above: Performed By: #### C BC, ADIFF, ANEU, FIB, APTT, PRO, GFR, TSH, CMP, A1C #### [address] [address] UA pH 8.0 Normal 5.0 - 8.0 [facility] ([place]) Comment on above: Performed By: #### C BC, ADIFF, ANEU, FIB, APTT, PRO, GFR, TSH, CMP, A1C #### [address] [address] UA Protein Negative Normal Negative [facility] ([place]) Comment on above: Performed By: #### C BC, ADIFF, ANEU, FIB, APTT, PRO, GFR, TSH, CMP, A1C #### [address] [address] UA Spec Grav 1.010 Normal 1.006-1.02 9 [facility] ([place]) Comment on above: Performed By: #### C BC, ADIFF, ANEU, FIB, APTT, PRO, GFR, TSH, CMP, A1C #### [address] [address] UA Specimen Type Void Normal [facility] ([place]) Comment on above: Performed By: #### C BC, ADIFF, ANEU, FIB, APTT, PRO, GFR, TSH, CMP, A1C #### [address] [address] UA Urobilinogen 0.2 E.U./dL Normal 0.2-1.0 [facility] ([place]) Comment on above: Performed By: #### C BC, ADIFF, ANEU, FIB, APTT, PRO, GFR, TSH, CMP, A1C #### [place] [id number] Urobilinogen Qn (U) Negative Normal Neg-Trace [facility] ([place]) Comment on above: Performed By: #### C BC, ADIFF, ANEU, FIB, APTT, PRO, GFR, TSH, CMP, A1C #### [place] [address] XR CHEST 2 VIEWSon 9 XR CHEST 2 VIEWS ORIGINAL XR CHEST 2 VIEWS CLINICAL STATEMENT: CAD,AORTIC STENOSIS. COMPARISON: XR CHEST 2 VIEWS 10/22/2018 FINDINGS: The cardiomediastinal contours are normal. There is no consolidation, vascular congestion, pleural effusion, or pneumothorax. No displaced fractures are identified. IMPRESSION: No acute radiographic findings. Interpreted By: Sheyla Jeter MD Preliminary Report By: Sheyla Jeter MD Electronically Signed By: Sheyla Jeter MD Dictated Date: 12/26/2018 1:15:07 PM Prelim Date: 12/26/2018 1:15:07 PM Sign Date: 12/26/2018 1:15:40 PM Normal [facility] ([place]) CNOVon 12-22-2017 CNOV Office Visit (AGCARDWST) EMPERATRIZ LUCIO ([id number]) [address] [facility] Time Provider Department12/22/17 9:30 AM VERNON ORTEZ AGCARDWST During your visit today, we recorded the following information about you: Pulse Blood pressure Weight 80/minute 150/72 99.2 kgVernon Ortez MD 12/22/2017 6:14 PM AddendumPERTINENT CARDIAC HISTORYAortic stenosis - moderately severeMitral insufficiency - mildHTNHLDMCRFLBBBADHERENCE TO GUIDELINESACE-I or ARB for HF with prior LVEFANDlt;40 (NQF 0081) - N/AASA or Plavix for ASHD (NQF 0067) - metBeta elijah for ASHD with prior [place] or prior LVEFANDlt;40 (NQF 0070) - N/ABeta elijah for HF with prior LVEFANDlt;40 (NQ 0083) - N/AACE-I or ARB for ASHD with DM or prior LVEFANDlt;40 (NQ 0066) - metStatin therapy for ASHD or FHL or DM - fibrateBMI documented and plan if ANDgt;25 ([facility] 0421) - lifestyle recommendation formTobacco use screening and referral ([facility] 0028) - lifestyle recommendation formRecommendation for whole food, plant based diet - lifestyle recommendation formCLINICAL IMPRESSION/PLAN:Osvaldo Lucio has progressive aortic valvular disease, but stableexercise tolerance. I questioned him several times on this.His blood pressure has been somewhat labile. I've asked him to check bloodpressures twice daily at home for the next week and contact us. Adjustments inhis medication may need to be made. This has been a problem for him in the past.He will likely need an aortic valve procedure is in the next year or 2. I willsee him in 6 months, at which time we will repeat his gradients. If he hasdecreased exercise tolerance I've asked him to contact me promptly.Written and verbal health teaching given to patient, patient verbalizesunderstanding and agrees with treatment plan.This note was generated using Mobile [employer] voice recognition system, and there may besome incorrect words, spellings, and punctuation that were not noted inchecking the note before saving.DIAGNOSIS FOR VISIT:Aortic stenosisHISTORY OF PRESENT ILLNESSWidahiana Lucio returns for follow-up of his valvular heart disease.He reports stable exercise tolerance. He's had no chest discomfort. He has beendoing some work outside in the snow. He denies orthopnea, edema, syncope,palpitations, TIAs, amaurosis or claudication.He reports his cataract surgery was uncomplicated.ALLERGIES:ALL ERGIESNo Known AllergiesCURRENT OUTPATIENT MEDICATIONS:lisinopril-hydr ochlorothiazide (PRINZIDE,ZESTORETIC) 20-12.5 mg per tablet Take2 tablets by mouth every morning. For blood pressure.metFORMIN ER (GLUCOPHAGE XR) 500 mg 24 hr tablet Take 1 tablet by mouth dailywith breakfast.glipiZIDE XL (GLUCOTROL XL) 10 mg 24 hr tablet TAKE 1 TABLET BY MOUTH EVERY DAYBEFORE BREAKFASTTRUE METRIX GLUCOSE TEST STRIP test strip Test blood sugar twice daily.Non-insulinUNILET SUPER THIN LANCETS 30 gauge misc Test blood sugar(s) 2 times daily. Dx:Type 2 DM- Uncontrolled Code E11.22 Insulin: NoFenofibrate (LOFIBRA) 160 mg tablet Take 1 tablet by mouth once daily. Fortriglycerides.amLODIPine (NORVASC) 10 mg tablet Take 1 tablet by mouth once daily.labetalol (TRANDATE) 300 mg tablet Take 1 tablet by mouth twice daily.vit A,C,B-Hktf-Qhcvig (PRESERVISION AREDS) 7,160-113-100 zpxm-oq-vcyk tab Take1 tablet by mouth twice daily with meals.Blood-Glucose Meter monitoring kit Glucose Meter of Choice - Kit - Dx: Type 2DM - Uncontrolled E11.22busPIRone (BUSPAR) 10 mg tablet Take 1 tablet by mouth three times daily.doxepin (SINEQUAN) 100 mg capsule Take 1 capsule by mouth daily at bedtime.traZODone (DESYREL) 100 mg tablet Take 1 tablet by mouth daily at bedtime.PHYSICAL EXAMINATION:VITAL SIGNS: BP 150/72 Pulse 80 Wt 218 lb 12.8 oz (99.2kg)Chest: Clear to percussion and auscultation. Trachea is midline. Air entry isequal. Cardiac: Regular rhythm. S1 and S2 are normal. PMI is nondisplaced.There is a 3/6 mid systolic murmur of aortic stenosis. Carotids are somewhatdelayed. JVP is less than 10 cm. Abdomen: Soft and nontender. Obesity limitspalpation. There are no pulsatile masses or bruits. No liver enlargement.Bowel sounds are active. Extremities: No edema. Pulses are intact andsymmetrical.Recent labs were reviewed. Renal function has fallen slightly. LDL was 65.Recent echocardiogram was reviewed. He has had progression of his aortic valvegradients. Stenosis is now in the moderately severe range.Electronically Signed:Vernon Ortez MDDekalb Regional Medical Center 2017 9:51 [facility]: Brielle Hernandez MD 12/22/2017 9:51 AM SignedLIFESTYLE CHANGEA healthy lifestyle is the most important component of your overall treatmentplan. Please give serious thought to the following areas and commit to makinglong term changes.EAT A WHOLE FOOD, PLANT BASED DIETThe nutrition your body gets is more important than the medicine you take.What matters most is the overall way you eat. We encourage you to minimize theuse of animal products (which include dairy and all meats except fatty fish)and use whole, unprocessed plant foods to provide your protein, vitamins andother nutrients. We have a lot of information to share with you on this topic. We also hold Shared Medical Appointments, where you can come visit with in the company of other patients and spend over an hour talking aboutthe challenges of changing the way you eat. This is not a ANDquot;dietANDquot;.It is a way of life that you will keep with you.EXERCISE REGULARLYIt is not important to spend hours in the gym, lifting weights and perspiringheavily. A total of 2-3 hours per week of aerobic (causing you to bemoderately short of breath) exercise is sufficient to improve your health.Talk to us before you begin a new exercise program, if you have heart diseaseor experience shortness of breath or chest pain.REDUCE STRESSChronic emotional and physical stress leads to disease. Ways of reducingstress include meditation, visualization, prayer, yoga and other forms ofrelaxation therapy. Consistency is the collier. Find a technique that works foryou and do it every day.CULTIVATE RELATIONSHIPSLoneliness and isolation have a major negative impact on health. Seek outothers who can love, care for and nurture you. Avoid hurtful relationships.MAINTAIN IDEAL BODY WEIGHTThe best way to do this is to do all the things above. Our bodies naturallyfind the right weight if we keep moving and feed ourselves the right food. Ifyour BMI is greater than 25, we strongly recommend a referral to a weightmanagement program. Please speak to us or your family physician aboutavailable programs.AVOID NICOTINE IN ALL FORMSThis includes all tobacco products, whether chewed, smoked, vaped, or rubbed onthe skin. Smoking cessation programs, which can make use of tobaccosubstitutes, medications to suppress cravings and behavior management, areavailable. Please contact your family physician about programs in your area.Referring Provider: VERNON ORTEZ [[id number]]Allergies As of Date: 12/22/2017(No Known Allergies)Date Reviewed: 12/22/2017Reviewed by: Kristina Kc - Fully AssessedReason for Visit: Recheck [92]Primary Visit Diagnosis:Nonrheumatic aortic valve stenosis [I35.0] Other Visit Diagnosis:Hypertension, essential [I10]Prescriptions as of 12/22/2017 Sig: LISINOPRIL 20 MG-HYDROCHLOROT* Take 2 tablets by mouth every* METFORMIN ER 500 MG TABLET,EX* Take 1 tablet by mouth daily * GLIPIZIDE ER 10 MG TABLET, EX* TAKE 1 TABLET BY MOUTH EVERY * TRUE METRIX GLUCOSE TEST STRIP Test blood sugar twice daily.* UNILET SUPER THIN LANCETS 30 * Test blood sugar(s) 2 times d* FENOFIBRATE 160 MG TABLET Take 1 tablet by mouth once d* AMLODIPINE 10 MG TABLET Take 1 tablet by mouth once d* LABETALOL 300 MG TABLET Take 1 tablet by mouth twice * VITAMINS A,C,O-PDXV-BEFUGQ 7* Take 1 tablet by mouth twice * BLOOD-GLUCOSE METER KIT Glucose Meter of Choice - Kit* BUSPIRONE 10 MG TABLET Take 1 tablet by mouth three * DOXEPIN 100 MG CAPSULE Take 1 capsule by mouth daily* TRAZODONE 100 MG TABLET Take 1 tablet by mouth daily *Problem List As Of Date 12/22/2017 Noted Resolved [...] the following areas and commit to making director long term care changes. EAT A WHOLE FOOD, PLANT BASED [...] way you eat. This is not a "diet". It is a way of life that [...] family physician about programs in your area. Status:Closed by VERNON ORTEZ MD on 12/22/17 [facility] PROGRESSon 12-22-2017 PROGRESS HNO ID: [id number] thor: Vernon Villegas: (none)Author Type: PhysicianType: Progress NotesFiled: 12/22/2017 6:14 PMNote Text:PERTINENT CARDIAC HISTORYAortic stenosis - moderately severeMitral insufficiency - mildHTNHLDMCRFLBBBADHERENCE TO GUIDELINESACE-I or ARB for HF with prior LVEF<40 (NQF 0081) - N/AASA or Plavix for ASHD (NQF 0067) - metBeta elijah for ASHD with prior [place] or prior LVEF<40 (NQF 0070) - N/ABeta elijah for HF with prior LVEF<40 (NQF 0083) - N/AACE-I or ARB for ASHD with DM or prior LVEF<40 (NQF 0066) - metStatin therapy for ASHD or FHL or DM - fibrateBMI documented and plan if >25 (NQF 0421) - lifestyle recommendation formTobacco use screening and referral (NQF 0028) - lifestyle recommendationformRecommend ation for whole food, plant based diet - lifestyle recommendationformCLINICAL IMPRESSION/PLAN:Osvaldo Lucio has progressive aortic valvular disease, but stableexercise tolerance. I questioned him several times on this.His blood pressure has been somewhat labile. I've asked him to check bloodpressures twice daily at home for the next week and contact us.Adjustments in his medication may need to be made. This has been a problemfor him in the past.He will likely need an aortic valve procedure is in the next year or 2. Iwill see him in 6 months, at which time we will repeat his gradients. Ifhe has decreased exercise tolerance I've asked him to contact me promptly.Written and verbal health teaching given to patient, patient verbalizesunderstanding and agrees with treatment plan.This note was generated using Mobile [employer] voice recognition system, and theremay be some incorrect words, spellings, and punctuation that were notnoted in checking the note before saving.DIAGNOSIS FOR VISIT:Aortic stenosisHISTORY OF PRESENT ILLNESSOsvaldo Lucio returns for follow-up of his valvular heart disease.He reports stable exercise tolerance. He's had no chest discomfort. He hasbeen doing some work outside in the snow. He denies orthopnea, edema,syncope, palpitations, TIAs, amaurosis or claudication.He reports his cataract surgery was uncomplicated.ALLERGIES:ALL ERGIESNo Known AllergiesCURRENT OUTPATIENT MEDICATIONS:lisinopril-hydr ochlorothiazide (PRINZIDE,ZESTORETIC) 20-12.5 mg per tabletTake 2 tablets by mouth every morning. For blood pressure.metFORMIN ER (GLUCOPHAGE XR) 500 mg 24 hr tablet Take 1 tablet by mouthdaily with breakfast.glipiZIDE XL (GLUCOTROL XL) 10 mg 24 hr tablet TAKE 1 TABLET BY MOUTHEVERY DAY BEFORE BREAKFASTTRUE METRIX GLUCOSE TEST STRIP test strip Test blood sugar twice daily.Non-insulinUNILET SUPER THIN LANCETS 30 gauge misc Test blood sugar(s) 2 times daily.Dx: Type 2 DM- Uncontrolled Code E11.22 Insulin: NoFenofibrate (LOFIBRA) 160 mg tablet Take 1 tablet by mouth once daily. Fortriglycerides.amLODIPine (NORVASC) 10 mg tablet Take 1 tablet by mouth once daily.labetalol (TRANDATE) 300 mg tablet Take 1 tablet by mouth twice daily.vit A,C,G-Xfnj-Juqbvn (PRESERVISION AREDS) 7,160-113-100 iyrm-kf-yxqj tabTake 1 tablet by mouth twice daily with meals.Blood-Glucose Meter monitoring kit Glucose Meter of Choice - Kit - Dx:Type 2 DM - Uncontrolled E11.22busPIRone (BUSPAR) 10 mg tablet Take 1 tablet by mouth three times daily.doxepin (SINEQUAN) 100 mg capsule Take 1 capsule by mouth daily atbedtime.traZODone (DESYREL) 100 mg tablet Take 1 tablet by mouth daily at bedtime.PHYSICAL EXAMINATION:VITAL SIGNS: BP 150/72 Pulse 80 Wt 218 lb 12.8 oz (99.2kg)Chest: Clear to percussion and auscultation. Trachea is midline. Airentry is equal. Cardiac: Regular rhythm. S1 and S2 are normal. PMI isnondisplaced. There is a 3/6 mid systolic murmur of aortic stenosis.Carotids are somewhat delayed. JVP is less than 10 cm. Abdomen: Soft andnontender. Obesity limits palpation. There are no pulsatile masses orbruits. No liver enlargement. Bowel sounds are active. Extremities: Noedema. Pulses are intact and symmetrical.Recent labs were reviewed. Renal function has fallen slightly. LDL was 65.Recent echocardiogram was reviewed. He has had progression of his aorticvalve gradients. Stenosis is now in the moderately severe range.Electronically Signed:Vernon Ortez MDFebruary 2017 9:51 [facility]: Jeremi Morel MD [facility] Vital Signs Date Time Vital Sign Value Performing Clinician Chetna batista 08-14-2025 07:46-0400 Body height [address] Jeremi Morel MD Work Phone: 2(026)813-785132 [place] [address] 08-14-2025 07:46-0400 Body mass index (BMI) [Ratio] 26.5 kg/m2 Dr. Jeremi Morel MD Work Phone: 8(464)747-734914 [address] 08-14-2025 07:46-0400 Body weight 79.[address] Jeremi Morel MD Work Phone: 6(260)436-368491 [place] [address] 08-14-2025 07:46-0400 Diastolic blood pressure 63 mm[Hg] Dr. Jeremi Morel MD Work Phone: 7(510)658-304132 [place] [address] 08-14-2025 07:46-0400 Heart rate 68 /min Dr. Jeremi Morel MD Work Phone: 6(305)962-142014 [address] 08-14-2025 07:46-0400 Respiratory rate 18 /min Dr. Jeremi Morel MD Work Phone: 1(730)415-075532 [place] [address] 08-14-2025 07:46-0400 SaO2% (BldA) [Mass fraction] 94 % Dr. Jeremi Morel MD Work Phone: 0(968)856-921332 [place] [address] 08-14-2025 07:46-0400 Systolic blood pressure 123 mm[Hg] Dr. Jeremi Morel MD Work Phone: [facility] 12-17-2024 09:31-0500 Body mass index (BMI) [Ratio] 27.35 kg/m2 Mercedez Castaneda APRN.SUPERVISOR [employer] Work Phone: [facility] 12-17-2024 09:31-0500 Body weight 82.8 kg Mercedez Castaneda APRN.SUPERVISOR [employer] Work Phone: [facility] 12-17-2024 09:31-0500 Diastolic blood pressure 62 mm[Hg] Mercedez Castaneda APRN.SUPERVISOR [employer] Work Phone: [facility] 12-17-2024 09:31-0500 Heart rate 112 /min Mercedez Castaneda APRN.SUPERVISOR [employer] Work Phone: [facility] 12-17-2024 09:31-0500 Respiratory rate 12 /min Mercedez Castaneda APRN.SUPERVISOR [employer] Work Phone: [facility] 12-17-2024 09:31-0500 SaO2% (BldA) [Mass fraction] 97 % Mercedez Castaneda APRN.SUPERVISOR [employer] Work Phone: [facility] 12-17-2024 09:31-0500 Systolic blood pressure 130 mm[Hg] Mercedez Castaneda APRN.SUPERVISOR [employer] Work Phone: [facility] 12-09-2024 09:37-0500 Body mass index (BMI) [Ratio] 27.69 kg/m2 Maxi Flores APRN.ALO, DNP Work Phone: [facility] 12-09-2024 09:37-0500 Body temperature 97.59 [degF] Maxi Flores APRN.SUPERVISOR [employer], DNP Work Phone: [facility] 12-09-2024 09:37-0500 Body weight 83.83 kg Maxi Flores APRN.SUPERVISOR [employer], DNP Work Phone: [facility] 12-09-2024 09:37-0500 Diastolic blood pressure 73 mm[Hg] Maxi Flores APRN.SUPERVISOR [employer], DNP Work Phone: [facility] 12-09-2024 09:37-0500 Heart rate 109 /min Maxi Flores APRN.SUPERVISOR [employer], DNP Work Phone: [facility] 12-09-2024 09:37-0500 SaO2% (BldA) [Mass fraction] 96 % Maxi Flores APRN.ALO, DNP Work Phone: [facility] 12-09-2024 09:37-0500 Systolic blood pressure 140 mm[Hg] Maxi Flores APRN.SUPERVISOR [employer], DNP Work Phone: [facility] 11-01-2024 09:02-0500 Heart rate 64 /min NILDA DOWD MD [facility] 11-01-2024 07:29-0500 Blood Pressure Cuff Size NILDA DOWD MD [facility] 11-01-2024 07:29-0500 Blood Pressure Location NILDA DOWD MD [facility] 11-01-2024 07:29-0500 Blood Pressure Method NILDA DOWD MD [facility] 11-01-2024 07:29-0500 Body temperature 98.06 [degF] NILDA DOWD MD [facility] 11-01-2024 07:29-0500 Diastolic Blood Pressure Non-Invasive 59 mm[Hg] NILDA DOWD MD [facility] 11-01-2024 07:29-0500 Heart rate 71 /min NILDA DOWD MD [facility] 11-01-2024 07:29-0500 Reason For Taking VItal Signs NILDA DOWD MD [facility] 11-01-2024 07:29-0500 Respiratory rate 18 /min NILDA DOWD MD [facility] 11-01-2024 07:29-0500 Systolic Blood Pressure Non-Invasive 126 mm[Hg] NILDA DOWD MD [facility] 11-01-2024 05:16-0500 Reason For Taking VItal Signs NILDA DOWD MD [facility] 11-01-2024 05:16-0500 Respiratory rate 18 /min NILDA DOWD MD [facility] 10-31-2024 22:00-0500 Respiratory rate 19 /min NILDA DOWD MD [address] [place] [address] 10-31-2024 19:50-0500 Reason For Taking VItal Signs NILDA DOWD MD [address] [place] [address] 10-31-2024 17:24-0500 Heart rate 68 /min NILDA DOWD MD [address] [place] [address] 10-31-2024 14:53-0500 Body temperature 98.42 [degF] NILDA DOWD MD [address] 10-31-2024 14:53-0500 Diastolic Blood Pressure Non-Invasive 50 mm[Hg] NILDA DOWD MD [address] 10-31-2024 14:53-0500 Heart rate 68 /min NILDA DOWD MD [address] [place] [address] 10-31-2024 14:53-0500 Systolic Blood Pressure Non-Invasive 120 mm[Hg] NILDA DOWD MD [address] [place] [address] 10-31-2024 07:20-0500 Blood Pressure Cuff Size NILDA DOWD MD [address] [place] [address] 10-31-2024 07:20-0500 Blood Pressure Location NILDA DOWD MD [address] [place] [address] 10-31-2024 07:20-0500 Blood Pressure Method NILDA DOWD MD [address] [place] [address] 10-31-2024 07:20-0500 Body temperature 97.88 [degF] NILDA DOWD MD [address] [place] [address] 10-31-2024 07:20-0500 Diastolic Blood Pressure Non-Invasive 59 mm[Hg] NILDA DOWD MD [address] [place] [address] 10-31-2024 07:20-0500 Heart rate 66 /min NILDA DOWD MD [address] [place] [address] 10-31-2024 07:20-0500 Systolic Blood Pressure Non-Invasive 120 mm[Hg] NILDA DOWD MD [address] [place] [address] 10-31-2024 06:26-0500 Blood Pressure Cuff Size NILDA DOWD MD [address] [place] [address] 10-31-2024 06:26-0500 Blood Pressure Location NILDA DOWD MD [address] [place] [address] 10-31-2024 06:26-0500 Blood Pressure Method NILDA DOWD MD [address] [place] [address] 10-30-2024 21:57-0500 Heart rate 64 /min NILDA DOWD MD [address] [place] [address] 10-30-2024 21:57-0500 Mean blood pressure 69 mm[Hg] NILDA DOWD MD [address] [place] [address] 10-30-2024 09:36-0500 Heart rate 72 /min NILDA DOWD MD [address] 10-29-2024 23:50-0500 Mean blood pressure 80 mm[Hg] NILDA DOWD MD [address] [place] [address] 10-28-2024 06:34-0500 Heart rate 68 /min NILDA DOWD MD [address] [place] [address] 10-28-2024 02:26-0500 Heart rate 66 /min NILDA DOWD MD [address] [place] [address] 10-21-2024 18:00-0500 Body temperature 99.5 [degF] NILDA DOWD MD [address] [place] [address] 10-20-2024 14:24-0500 Mean blood pressure 91 mm[Hg] NILDA DOWD MD [address] [place] [address] 10-19-2024 09:27-0500 Body height 172.7 cm NILDA DOWD MD [facility] 10-19-2024 09:27-0500 Body weight 88.6 kg NILDA DOWD MD [facility] 10-19-2024 09:27-0500 Body weight 29.71 kg/m2 NILDA DOWD MD [facility] 10-11-2024 10:18-0500 Body mass index (BMI) [Ratio] 30.85 kg/m2 Kameron Kelley MD Work Phone: [facility] 10-11-2024 10:18-0500 Body temperature 97.7 [degF] Kameron Kelley MD Work Phone: [facility] 10-11-2024 10:18-0500 Body weight 93.4 kg Kameron Kelley MD Work Phone: [facility] 10-11-2024 10:18-0500 Diastolic blood pressure 71 mm[Hg] Kameron Kelley MD Work Phone: [facility] 10-11-2024 10:18-0500 Heart rate 77 /min Kameron Kelley MD Work Phone: [facility] 10-11-2024 10:18-0500 Respiratory rate 22 /min Kameron Kelley MD Work Phone: [facility] 10-11-2024 10:18-0500 SaO2% (BldA) [Mass fraction] 96 % Kameron Kelley MD Work Phone: [facility] 10-11-2024 10:18-0500 Systolic blood pressure 158 mm[Hg] Kameron Kelley MD Work Phone: [facility] 07-02-2024 08:24-0400 Body mass index (BMI) [Ratio] 28.64 kg/m2 Jeremi Moerl MD Work Phone: [facility] 07-02-2024 08:24-0400 Body temperature 97.9 [degF] Jeremi Morel MD Work Phone: [facility] 07-02-2024 08:24-0400 Body weight 86.7 kg Jeremi Morel MD Work Phone: [facility] 07-02-2024 08:24-0400 Diastolic blood pressure 68 mm[Hg] Jeremi Morel MD Work Phone: [facility] 07-02-2024 08:24-0400 Heart rate 72 /min Jeremi Morel MD Work Phone: [facility] 07-02-2024 08:24-0400 Respiratory rate 20 /min Jeremi Morel MD Work Phone: [facility] 07-02-2024 08:24-0400 Systolic blood pressure 126 mm[Hg] Jeremi Morel MD Work Phone: [facility] 03-04-2024 09:28-0400 Body height 174 cm Maxi Flores APRN.SAMMY PRAJAPATI Work Phone: [facility] 03-04-2024 09:28-0400 Body mass index (BMI) [Ratio] 29.79 kg/m2 Maxi Flores APRN.ALO DNP Work Phone: [facility] 03-04-2024 09:28-0400 Body temperature 97.59 [degF] Maxi Flores APRN.ALO DNP Work Phone: [facility] 03-04-2024 09:28-0400 Body weight 90.17 kg Maxi Flores APRN.ALO DNP Work Phone: [facility] 03-04-2024 09:28-0400 Diastolic blood pressure 62 mm[Hg] Maxi Flores APRN.ALO DNP Work Phone: [facility] 03-04-2024 09:28-0400 Heart rate 92 /min Maxi Flores APRN.ALO DNP Work Phone: [facility] 03-04-2024 09:28-0400 Respiratory rate 14 /min Maxi Flores APRN.SUPERVISOR [employer], DNP Work Phone: [facility] 03-04-2024 09:28-0400 SaO2% (BldA) [Mass fraction] 94 % Maxi Flores APRN.SUPERVISOR [employer], DNP Work Phone: [facility] 03-04-2024 09:28-0400 Systolic blood pressure 104 mm[Hg] Maxi Flores RECEPTIONIST TELEPHONE OPERATOR.SUPERVISOR [employer], DNP Work Phone: [facility] 01-02-2024 07:49-0500 Body height 174 cm Mercedez Castaneda RECEPTIONIST TELEPHONE OPERATOR.SUPERVISOR [employer] Work Phone: [facility] 01-02-2024 07:49-0500 Body weight 87.09 kg Mercedez Castaneda RECEPTIONIST TELEPHONE OPERATOR.SUPERVISOR [employer] Work Phone: [facility] 01-02-2024 07:49-0500 Diastolic blood pressure 74 mm[Hg] Mrecedez Castaneda RECEPTIONIST TELEPHONE OPERATOR.SUPERVISOR [employer] Work Phone: [facility] 01-02-2024 07:49-0500 Heart rate 86 /min Mercedez Castaneda RECEPTIONIST TELEPHONE OPERATOR.SUPERVISOR [employer] Work Phone: [facility] 01-02-2024 07:49-0500 Respiratory rate 20 /min Mercedez Castaneda RECEPTIONIST TELEPHONE OPERATOR.SUPERVISOR [employer] Work Phone: [facility] 01-02-2024 07:49-0500 Systolic blood pressure 134 mm[Hg] Mercedez Castaneda RECEPTIONIST TELEPHONE OPERATOR.SUPERVISOR [employer] Work Phone: [facility] 11-27-2023 15:00-0500 Body temperature 98 [degF] Dr. Jeremi Morel Work Phone: [facility] 11-27-2023 15:00-0500 Diastolic blood pressure 70 mm[Hg] Dr. Jeremi Morel Work Phone: [facility] 11-27-2023 15:00-0500 Heart rate 68 /min Dr. Jeremi Morel Work Phone: [facility] 11-27-2023 15:00-0500 Respiratory rate 18 /min Dr. Jeremi Morel Work Phone: 6(284)124-234432 [place] [address] 11-27-2023 15:00-0500 SaO2% (BldA) [Mass fraction] 92 % Dr. Jeremi Morel Work Phone: 5(169)928-606791 [place] [address] 11-27-2023 15:00-0500 Systolic blood pressure 112 mm[Hg] Dr. Jeremi Morel Work Phone: 8(735)831-991491 [place] [address] 11-27-2023 04:11-0500 Body mass index (BMI) [Ratio] 30.2 kg/m2 Dr. Jeremi Morel Work Phone: 5(076)636-016991 [place] [address] 11-27-2023 04:11-0500 Body weight [address] Jeremi Morel Work Phone: 1(696)976-126691 [place] [address] 11-26-2023 14:04-0500 Body height 172.[address] Jeremi Morel Work Phone: 5(147)018-986191 [place] [address] 11-26-2023 02:42-0500 Inhaled oxygen flow rate 2 L/min Dr. Jeremi Morel Work Phone: 6(823)830-435091 [place] [address] 11-25-2023 11:16-0500 Diastolic blood pressure 77 mm[Hg] Dr. Jeremi Morel Work Phone: 5(940)637-577691 [place] [address] 11-25-2023 11:16-0500 Heart rate 99 /min Dr. Jeremi Morel Work Phone: 1(318)221-928391 [place] [address] 11-25-2023 11:16-0500 Inhaled oxygen flow rate 2 L/min Dr. Jeremi Morel Work Phone: 9(394)978-587191 [place] [address] 11-25-2023 11:16-0500 Respiratory rate 26 /min Dr. Jeremi Morel Work Phone: 1(947)428-915091 [place] [address] 11-25-2023 11:16-0500 SaO2% (BldA) [Mass fraction] 95 % Dr. Jeremi Morel Work Phone: 7(972)974-367391 [place] [address] 11-25-2023 11:16-0500 Systolic blood pressure 155 mm[Hg] Dr. eJremi Morel Work Phone: [facility] 11-25-2023 11:02-0500 Body temperature 97.6 [degF] Dr. Jeremi Morel Work Phone: [facility] 11-25-2023 06:27-0500 Body height 172.[address] Jeremi Morel Work Phone: [facility] 11-25-2023 06:27-0500 Body mass index (BMI) [Ratio] 31.4 kg/m2 Dr. Jreemi Morel Work Phone: [facility] 11-25-2023 06:27-0500 Body weight 93.[address] Jeremi Morel Work Phone: [facility] 09-25-2023 09:57-0500 Body height 172.7 cm Maxi Flores APRN.SAMMY PRAJAPATI Work Phone: [facility] 09-25-2023 09:57-0500 Body temperature 97.39 [degF] Maxi Flores APRN.CNP, DNP Work Phone: [facility] 09-25-2023 09:57-0500 Body weight 89.99 kg Maxi Flores APRN.CNP, DNP Work Phone: [facility] 09-25-2023 09:57-0500 Diastolic blood pressure 62 mm[Hg] Maxi Flores APRN.ALO DNP Work Phone: [facility] 09-25-2023 09:57-0500 Heart rate 84 /min Maxi Flores APRN.CNP, DNP Work Phone: [facility] 09-25-2023 09:57-0500 Respiratory rate 16 /min Maxi Flores APRN.CNP DNP Work Phone: [facility] 09-25-2023 09:57-0500 SaO2% (BldA) [Mass fraction] 98 % Maxi Flores APRN.CNP, DNP Work Phone: 6(950)761-565378 [place] [address] 09-25-2023 09:57-0500 Systolic blood pressure 138 mm[Hg] Maxi Flores APRN.SUPERVISOR [employer], DNP Work Phone: 9(212)120-890178 [place] [address] 09-18-2023 07:49-0500 Body temperature 98.6 [degF] Dr. Jeremi Morel Work Phone: 4(130)408-713891 [place] [address] 09-18-2023 07:49-0500 Diastolic blood pressure 63 mm[Hg] Dr. Jeremi Morel Work Phone: 4(737)464-081791 [place] [address] 09-18-2023 07:49-0500 Heart rate 87 /min Dr. Jeremi Morel Work Phone: 2(678)627-476632 [place] [address] 09-18-2023 07:49-0500 Respiratory rate 17 /min Dr. Jeremi Morel Work Phone: 6(678)251-589191 [place] [address] 09-18-2023 07:49-0500 SaO2% (BldA) [Mass fraction] 94 % Dr. Jeremi Morel Work Phone: 8(595)156-493291 [place] [address] 09-18-2023 07:49-0500 Systolic blood pressure 175 mm[Hg] Dr. Jeremi Morel Work Phone: 2(460)009-262332 [place] [address] 09-06-2023 09:49-0400 Body temperature 98.6 [degF] Dr. Jeremi Morel Work Phone: 5(964)793-358632 [place] [address] 09-06-2023 09:49-0400 Diastolic blood pressure 65 mm[Hg] Dr. Jeremi Morel Work Phone: 6(508)189-858932 [place] [address] 09-06-2023 09:49-0400 Heart rate 80 /min Dr. Jeremi Morel Work Phone: 2(167)231-080732 [place] [address] 09-06-2023 09:49-0400 SaO2% (BldA) [Mass fraction] 93 % Dr. Jeremi Morel Work Phone: 1(564)993-842932 [place] [address] 09-06-2023 09:49-0400 Systolic blood pressure 165 mm[Hg] Dr. Jeremi Morel Work Phone: [facility] 09-01-2023 15:17-0400 Body temperature 98.6 [degF] Dr. Jeremi Morel Work Phone: [facility] 09-01-2023 15:17-0400 Diastolic blood pressure 75 mm[Hg] Dr. Jeremi Morel Work Phone: [facility] 09-01-2023 15:17-0400 Heart rate 92 /min Dr. Jeremi Morel Work Phone: [facility] 09-01-2023 15:17-0400 Respiratory rate 18 /min Dr. Jereim Morel Work Phone: [facility] 09-01-2023 15:17-0400 SaO2% (BldA) [Mass fraction] 99 % Dr. Jeremi Morel Work Phone: [facility] 09-01-2023 15:17-0400 Systolic blood pressure 150 mm[Hg] Dr. Jeremi Morel Work Phone: [facility] 08-28-2023 13:53-0400 Body weight 86.64 kg Jeremi Morel MD Work Phone: [facility] 08-28-2023 13:53-0400 Diastolic blood pressure 60 mm[Hg] Jeremi Morel MD Work Phone: [facility] 08-28-2023 13:53-0400 Heart rate 74 /min Jeremi Morel MD Work Phone: [facility] 08-28-2023 13:53-0400 Respiratory rate 16 /min Jeremi Morel MD Work Phone: [facility] 08-28-2023 13:53-0400 Systolic blood pressure 138 mm[Hg] Jeremi Morel MD Work Phone: [facility] 08-22-2023 08:18-0400 Body temperature 98.4 [degF] Dr. Jeremi Morel Work Phone: [facility] 08-22-2023 08:18-0400 Diastolic blood pressure 79 mm[Hg] Dr. Jeremi Morel Work Phone: 0(654)071-294191 [place] [address] 08-22-2023 08:18-0400 Heart rate 61 /min Dr. Jeremi Morel Work Phone: 7(141)088-367391 [place] [address] 08-22-2023 08:18-0400 Respiratory rate 17 /min Dr. Jeremi Morel Work Phone: 9(674)289-503991 [place] [address] 08-22-2023 08:18-0400 SaO2% (BldA) [Mass fraction] 93 % Dr. Jeremi Morel Work Phone: 6(053)744-123591 [place] [address] 08-22-2023 08:18-0400 Systolic blood pressure 152 mm[Hg] Dr. Jeremi Morel Work Phone: 3(377)144-823491 [place] [address] 08-22-2023 08:03-0400 Body height 172.[address] Jeremi Morel Work Phone: 5(740)862-294991 [place] [address] 08-08-2023 11:18-0400 Diastolic blood pressure 64 mm[Hg] Dr. Jeremi Morel Work Phone: 8(324)830-563291 [place] [address] 08-08-2023 11:18-0400 Systolic blood pressure 134 mm[Hg] Dr. Jeremi Morel Work Phone: 6(608)213-450891 [place] [address] 08-08-2023 10:29-0400 Body height 172.[address] Jeremi Morel Work Phone: 5(486)210-307391 [place] [address] 08-08-2023 10:29-0400 Body mass index (BMI) [Ratio] 28.4 kg/m2 Dr. Jeremi Morel Work Phone: 9(816)483-104591 [place] [address] 08-08-2023 10:29-0400 Body temperature 98.3 [degF] Dr. Jeremi Morel Work Phone: 8(435)448-636991 [place] [address] 08-08-2023 10:29-0400 Body weight 84.[address] Jeremi Morel Work Phone: 2(607)668-991691 [place] [address] 08-08-2023 10:29-0400 Heart rate 89 /min Dr. Jeremi Morel Work Phone: [facility] 08-08-2023 10:29-0400 Respiratory rate 17 /min Dr. Jeremi Morel Work Phone: [facility] 08-08-2023 10:29-0400 SaO2% (BldA) [Mass fraction] 92 % Dr. Jeremi Morel Work Phone: [facility] 05-05-2023 08:48-0400 Body weight 91.17 kg Jeremi Morel MD Work Phone: [facility] 05-05-2023 08:48-0400 Diastolic blood pressure 68 mm[Hg] Jeremi Morel MD Work Phone: [facility] 05-05-2023 08:48-0400 Heart rate 76 /min Jeremi Morel MD Work Phone: [facility] 05-05-2023 08:48-0400 Respiratory rate 18 /min Jeremi Morel MD Work Phone: [facility] 05-05-2023 08:48-0400 Systolic blood pressure 166 mm[Hg] Jeremi Morel MD Work Phone: [facility] 01-31-2023 08:58-0400 Diastolic blood pressure 66 mm[Hg] Jeremi Morel MD Work Phone: [facility] 01-31-2023 08:58-0400 Heart rate 60 /min Jeremi Morel MD Work Phone: [facility] 01-31-2023 08:58-0400 Systolic blood pressure 153 mm[Hg] Jeremi Morel MD Work Phone: [facility] 01-31-2023 08:47-0400 Body weight 92.99 kg Jeremi Morel MD Work Phone: [facility] 01-31-2023 08:47-0400 Respiratory rate 16 /min Jeremi Morel MD Work Phone: [facility] 08-02-2022 08:37-0400 Diastolic blood pressure 59 mm[Hg] Mercedez Older RECEPTIONIST TELEPHONE OPERATOR.SUPERVISOR H[employer] D[employer]INNING Work Phone: [facility] 08-02-2022 08:37-0400 Heart rate 61 /min Mercedez Older RECEPTIONIST TELEPHONE OPERATOR.SUPERVISOR H[employer]INNING Work Phone: [facility] 08-02-2022 08:37-0400 Systolic blood pressure 144 mm[Hg] Mercedez Older RECEPTIONIST TELEPHONE OPERATOR.SUPERVISOR H[employer]INNING Work Phone: [facility] 08-02-2022 08:33-0400 Body height 175.3 cm Mercedez Older RECEPTIONIST TELEPHONE OPERATOR.SUPERVISOR H[employer]INNING Work Phone: [facility] 08-02-2022 08:33-0400 Body temperature 98.01 [degF] Mercedez Older RECEPTIONIST TELEPHONE OPERATOR.SUPERVISOR H[employer] TINNING Work Phone: [facility] 08-02-2022 08:33-0400 Body weight 95.71 kg Mercedez Older RECEPTIONIST TELEPHONE OPERATOR.SUPERVISOR H[employer] D[employer]INNING Work Phone: [facility] 08-02-2022 08:33-0400 Respiratory rate 16 /min Mercedez Older RECEPTIONIST TELEPHONE OPERATOR.SUPERVISOR HOT D[employer] TINNING Work Phone: [facility] Encounters Encounter Date Encounter Type Care Provider Facility Start: 09-11-2025 ambulatory Thompson Diggs Facility:[facility] Start: 09-11-2025 ambulatory Santa Dominguez [place] [place]: 09-11-2025 End: 09-15-2025 Evaluation and management of inpatient Lorna Simental Facility:[facility] Start: 09-09-2025 End: 09-09-2025 ambulatory Jeremi Morel Facility:[facility] Start: 09-09-2025 End: 09-09-2025 ambulatory Jeremi Morel Facility:[facility] Start: 08-14-2025 End: 08-14-2025 Patient encounter procedure Stacy MARTELL -[facility] Work Phone: Start: 08-14-2025 End: 08-14-[address] Jeremi Morel MD Work Phone: -[facility] Start: 08-14-2025 End: 08-14-2025 ambulatory Jeremi Morel Facility:[facility] Start: 04-03-2025 ambulatory Napoleon Caterina Facility:[facility] Start: 02-28-2025 End: 02-28-2025 ambulatory Jeremi Morel Facility:[facility] Start: 12-25-2024 End: 12-25-2024 ambulatory Jeremi Morel Facility:[facility] Start: 12-17-2024 End: 12-17-2024 ambulatory MERCEDEZ Red TNOYA Facility:[facility] Start: 12-17-2024 End: 12-17-2024 Patient encounter procedure Mercedez Red Tonya RECEPTIONIST TELEPHONE OPERATOR.SUPERVISOR HOT DIP TINNING Work Phone: [facility] [place] Comment on above: Pleural effusion (Pr imary Dx); BPH with urinary obstruction; Paroxysmal atrial fibrillation (HCC); Essential hypertension; Type 2 diabetes mellitus with stage 3a chronic kidney disease, with long-term current use of insulin (HCC); Chronic congestive heart failure, unspecified heart failure type (HCC); Bipolar affective disorder, current episode mixed, current episode severity unspecified (HCC) Start: 12-12-2024 ambulatory Jeremi Roque ty:[facility] Start: 12-09-2024 End: 12-09-2024 ambulatory MAXI FLORES Facility:[facility] Start: 12-09-2024 End: 12-09-2024 Patient encounter procedure Maxi Flores RECEPTIONIST TELEPHONE OPERATOR.SUPERVISOR HOT DIP TINNING, DNP Work Phone: Urology Comment on above: Benign prostatic hyp erplasia with urinary frequency (Primary Dx); Frequency of urination; Type 2 diabetes mellitus with stage 3a chronic kidney disease, with long-term current use of insulin (HCC) Start: 11-04-2024 ambulatory Napoleon Caterina Facility:[facility] Start: 11-04-2024 End: 11-04-2024 Telephone encounter Jeremi Morel MD Work Phone: [facility] [place] Comment on above: Patient Update Start: 11-04-2024 ambulatory Jeremi Morel Facili ty:[facility] Start: 11-01-2024 ambulatory Jeremi Oswaldi ty:[facility] Start: 11-01-2024 End: 11-22-2024 Evaluation and management of inpatient Jeremi Morel Facility:[facility] Start: 10-19-2024 End: 11-01-2024 Evaluation and management of inpatient NILDA DOWD MD [facility] Start: 10-18-2024 End: 10-18-2024 Telephone encounter Jeremi Morel MD Work Phone: [facility] [place] Comment on above: Patient Update Start: 10-18-2024 End: 10-19-2024 Emergency department patient visit Jeremi Morel Facility:[facility] Start: 10-13-2024 End: 10-13-2024 ambulatory Jeremi Morel [facility] Start: 10-12-2024 ambulatory Jeremi Morel Facili ty:[facility] Start: 10-11-2024 ambulatory Jeremi Morel Facili ty[facility] Start: 10-11-2024 End: 10-13-2024 Evaluation and management of inpatient Jeremi Morel Facility:[facility] Start: 10-11-2024 End: 10-11-2024 Subsequent hospital visit by physician [facility] [place] Work Phone: Radiology Comment on above: Shortness of breath [R06.02] Start: 10-11-2024 End: 10-11-2024 ambulatory JEREMI MOREL Facility:[facility] Start: 10-11-2024 End: 10-11-2024 Office outpatient visit 25 minutes Kameron Kelley MD Work Phone: [facility] Comment on above: Shortness of breath (Primary Dx); Subacute cough; Acute on chronic diastolic (congestive) heart failure (HCC); 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 Start: 07-02-2024 End: 07-02-2024 ambulatory JEREMI MOREL Facility:[facility] Start: 07-02-2024 End: 07-02-2024 Office outpatient visit 15 minutes Jeremi Morel MD Work Phone: [facility] [place] Comment on above: Type 2 diabetes martha itus with stage 3a chronic kidney disease, with long-term current use of insulin (HCC) (Primary Dx); Screening for depression; Encounter for screening examination for other mental health and behavioral disorders; Bipolar affective disorder, current episode mixed, current episode severity unspecified (HCC); Hyperlipidemia, unspecified hyperlipidemia type Start: 06-14-2024 Refill Jeremi clements MD Work Phone: [facility] Comment on above: Refill Request Start: 05-22-2024 Refill Jeremi clements MD Work Phone: [facility] Comment on above: Refill Request Start: 04-19-2024 Refill Jeremi clements MD Work Phone: [facility] [place] Comment on above: Refill Request Start: 04-01-2024 Refill Mercedez kirk RECEPTIONIST TELEPHONE OPERATOR.SUPERVISOR HOT DIP TINNING Work Phone: [facility] [place] Comment on above: Refill Request Start: 03-04-2024 End: 03-04-2024 ambulatory MAXI FLORES Facility:[facility] Start: 03-04-2024 End: 03-04-2024 Patient encounter procedure Maxi Flores RECEPTIONIST TELEPHONE OPERATOR.SUPERVISOR HOT DIP TINNING, DNP Work Phone: Urology Comment on above: Benign prostatic hyp erplasia with urinary frequency (Primary Dx); Frequency of urination; Type 2 diabetes mellitus with stage 3a chronic kidney disease, with long-term current use of insulin (HCC); BPH with urinary obstruction Start: 02-21-2024 Refill Jeremi clements MD Work Phone: [facility] [place] Comment on above: Refill Request Start: 01-02-2024 End: 01-02-2024 ambulatory MERCEDEZ CASTANEDA Facility:[facility] Start: 01-02-2024 End: 01-02-2024 Patient encounter procedure Mercedez Castaneda RECEPTIONIST TELEPHONE OPERATOR.SUPERVISOR HOT DIP TINNING Work Phone: [facility] [place] Comment on above: Medicare annual well ness visit, subsequent (Primary Dx); Type 2 diabetes mellitus with stage 3a chronic kidney disease, with long-term current use of insulin (HCC); Essential hypertension; Hyperlipidemia, unspecified hyperlipidemia type; Bipolar affective disorder, remission status unspecified (HCC); Paroxysmal atrial fibrillation (HCC) Start: 12-15-2023 Refill Jeremi clements MD Work Phone: [facility] [place] Comment on above: Refill Request Start: 11-26-2023 Non-patient / Non-visit Dr. Vilma Morel Work Phone: [facility] Work Phone: Start: 11-25-2023 Non-patient / Non-visit Dr. Vilma Morel Work Phone: [facility] Work Phone: Start: 11-25-2023 End: 11-27-2023 Evaluation and management of inpatient Dr. Jeremi Morel Work Phone: [facility] Work Phone: Start: 10-02-2023 Telephone encounter Maxi beauchamp APRN.CNP, DNP Work Phone: Urology Comment on above: Opened In Error Start: 09-25-2023 Telephone encounter Maxi beauchamp APRN.CNP, SAMMY Work Phone: Urology Comment on above: Outside medical alon rds Start: 09-25-2023 End: 09-25-2023 Patient encounter procedure Maxi Flores APRN.CNP, SAMMY Work Phone: Urology Comment on above: Benign prostatic hyp erplasia with urinary frequency (Primary Dx); Frequency of urination; Screening for genitourinary condition Start: 09-18-2023 End: 09-18-[address] Jeremi Morel Work Phone: [facility] Work Phone: Start: 09-18-2023 End: 09-18-[address] Jeremi Morel Work Phone: [facility] Work Phone: Start: 09-06-2023 End: 09-06-[address] Jeremi Morel Work Phone: [facility] Work Phone: Start: 09-06-2023 End: 09-06-[address] [facility] Work [facility]: Start: 09-06-2023 End: 09-06-[address] Jeremi Morel Work Phone: [facility] Work Phone: Start: 09-01-2023 End: 09-01-[address] [facility] Work [facility]: Start: 09-01-2023 End: 09-01-[address] Jeremi Morel Work Phone: [facility] Work Phone: Start: 08-28-2023 End: 08-28-2023 Patient encounter procedure Jeremi Morel MD Work Phone: [facility] [place] Comment on above: Dysuria (Primary Dx) ; BPH with urinary obstruction; Frequency of urination Start: 08-22-2023 End: 08-22-[address] Jeremi Morel Work Phone: [facility] Work Phone: Start: 08-22-2023 End: 08-22-[address] [facility] Work [facility]: Start: 08-22-2023 End: 08-22-[address] Jeremi Morel Work Phone: [facility] Work Phone: Start: 08-08-2023 End: 08-08-[address] Jeremi Morel Work Phone: [facility] Work Phone: Start: 08-08-2023 End: 08-08-[address] Jeremi Morel Work Phone: [facility] Work Phone: Start: 08-08-2023 End: 08-08-[address] Jeremi Morel Work Phone: [facility] Work Phone: Start: 07-26-2023 Refill Jeremi clements MD Work Phone: [facility] [place] Comment on above: Refill Request Start: 05-05-2023 End: 05-05-2023 Patient encounter procedure Jeremi Morel MD Work Phone: [facility] [place] Comment on above: Essential hypertensi on (Primary Dx); Aortic valve replaced; S/P CABG x 2; Paroxysmal atrial fibrillation (HCC); Acute on chronic diastolic (congestive) heart failure (HCC); Hyperlipidemia, unspecified hyperlipidemia type; Type 2 diabetes mellitus with stage 3a chronic kidney disease, with long-term current use of insulin (HCC); Rash and nonspecific skin eruption; Bipolar affective disorder, remission status unspecified (HCC) Start: 04-17-2023 Refill Jeremi clements MD Work Phone: [facility] [place] Comment on above: Refill Request Start: 01-31-2023 End: 01-31-2023 Patient encounter procedure Jeremi Morel MD Work Phone: [facility] [place] Comment on above: Bipolar affective di sorder, remission status unspecified (HCC) (Primary Dx); Type 2 diabetes mellitus with stage 3a chronic kidney disease, with long-term current use of insulin (HCC); Paroxysmal atrial fibrillation (HCC); Essential hypertension Start: 10-21-[address] MD Work Phone: [facility] [place] Comment on above: Results Start: 10-13-2022 Refill Jeremi clements MD Work Phone: [facility] [place] Comment on above: Refill Request Start: 08-02-2022 End: 08-02-2022 Patient encounter procedure Mercedez Mensah APRN.SUPERVISOR HOT DIP TINNING Work Phone: [facility] [place] Comment on above: Medicare annual well ness visit, subsequent (Primary Dx); Essential hypertension; Type 2 diabetes mellitus with stage 3a chronic kidney disease, with long-term current use of insulin (HCC); Obesity, Class I, BMI 30-34.9; Paroxysmal atrial fibrillation (HCC); BPH with urinary obstruction; Need for influenza vaccination Start: 04-21-2022 Refill Jeremi clements MD Work Phone: [facility] [place] Comment on above: Refill Request Start: 01-23-2019 End: 01-24-2019 Patient encounter procedure CHOLO VALENTINE Facility:[facility] Start: 01-02-2019 Patient encounter procedure CHOLO VALENTINE Facility:[facility] Start: 01-01-2019 End: 01-08-2019 Evaluation and management of inpatient CHOLO VALENTINE Facility:[facility] Start: 12-29-2018 End: 12-30-2018 Patient encounter procedure CHOLO VALENTINE Facility:[facility] Start: 12-26-2018 End: 12-27-2018 Patient encounter procedure CHOLO VALENTINE Facility:[facility] Start: 06-26-2018 Ambulatory VERNON ORTEZ Facility :[facility] Start: 12-22-2017 End: 12-22-2017 [facility] Date Procedure Procedure Detail Performing Clinician Start: 12-09-2024 Urnls dip stick/tabl et rgnt auto w/o microscopy Maxi Flores RECEPTIONIST TELEPHONE OPERATOR.SUPERVISOR HOT DIP TINNING, DNP Work Phone: Start: 10-11-2024 Radiologic exam ches t 2 views Kameron Kelley MD Work Phone: Start: 07-02-2024 Adult depression scr eening assessment Jeremi Morel MD Work Phone: Start: 11-26-2023 Plain chest X-ray Dr. Nathalie Morel Work Phone: Start: 11-25-2023 SARS-CoV-2, Influenz a & RSV (PCR) Dr. Jeremi Morel Work Phone: Start: 11-25-2023 CT angiography of ch est with contrast Dr. Jeremi Morel Work Phone: Start: 11-25-2023 Plain chest X-ray Dr. Nathalie Morel Work Phone: Start: 09-06-[address] Zachary Morel Work Phone: Start: 09-01-[address] Zachary Morel Work Phone: Start: 08-22-[address] Zachary Morel Work Phone: Start: 08-08-[address] Zachary Morel Work Phone: Start: 02-20-2023 Hemoglobin A1c/Hemoglobin.total in Blood [facility] Provider Start: 09-12-2022 Hemoglobin A1c/Hemoglobin.total in Blood [facility] Provider Start: 08-02-2022 INFLUENZA SEASONAL QUADRIVALENT HIGH DOSE AGE 65+ Mercedez Older RECEPTIONIST TELEPHONE OPERATOR.SUPERVISOR HOT DIP TINNING Work Phone: Start: 01-01-2019 History of coronary artery bypass grafting S/P CABG x 2 Stacy Bolanos NATIONAL SALES REPRESENTATIVEHaydeeC Comment on above: CABG x 2 VILLALBA-LAD, S VG-Distal RCA and AVR w/ 25 mm Magna Ease Bioprosthetic Valve 01/01/19 Start: 01-01-2019 Coronary artery bypa ss grafts x 2 NILDA DOWD MD Comment on above: Cabg x2 using KEATON/up per [facility]; and Insert A/V epicardial wires Start: 01-01-2019 Replacement of aorti c valve NILDA DOWD MD Start: 11-13-2017 Cardiac catheterization NILDA DOWD MD Comment on above: no intervention, pen ding surg. Start: 11-13-2011 Prosthetic arthropla sty of the hip NILDA DOWD MD Comment on above: right Start: 11-13-1992 Fracture of ankle (disorder) NILDA DOWD MD Comment on above: right Extraction of cataract NILDA DOWD MD Comment on above: bilat H/O: surgery Status post hard moscoso removal Dr. Jeremi Morel Work Phone: History of coronary artery bypass grafting S/P CABG x 2 Jeremi Morel MD Work Phone: Plan of Treatment Date Care Activity Detail Author Start: 10-25-2029 Urine microalbumin profile [facility] Start: 11-03-2025 End: 11-03-2025 Patient encounter procedure 11/03/2025 9:30 AM EST Office Visit Urology [address] [place], [place] [id number] Maxi Flores, JARRET.SUPERVISOR HOT DIP TINNING, DNP [address] [place] [address] 1 yr f/u Urology Comment on above: 1 yr f/u Start: 08-14-2025 End: 08-14-2025 Evaluation of diagnostic study results [facility] Start: 07-02-2025 Anxiety Screening Anxiety Screening [facility] Start: 07-02-2025 Depression Screening Depression Scre ening [facility] Start: 07-02-2025 Diabetic foot examination Diabetic F oot Exam [facility] Start: 07-01-2025 End: 07-01-2025 Patient encounter procedure 07/01/2025 8:40 AM EDT Office Visit [facility] [place] [address] [place] [address] Jeremi Morel MD [address] [place], [place] [id number] 6 month follow-up [facility] [place] Comment on above: 6 month follow-up Start: 03-29-2025 Glaucoma screening Dilated Retinal E xam [facility] Start: 01-10-2025 End: 01-10-2025 Patient encounter procedure 01/10/2025 8:20 AM EST Office Visit [facility] [place] [address] [facility] [address] Mercedez Castaneda, RECEPTIONIST TELEPHONE OPERATOR.SUPERVISOR HOT DIP TINNING [address] [place] [address] Annual Medicare Wellness w/6 month follow-up [facility] [place] Comment on above: Annual Medicare Well ness w/6 month follow-up Start: 01-03-2025 End: 01-03-2025 Patient encounter procedure 01/03/2025 8:00 AM EST Office Visit [facility] [place] [address] [facility] [address] Mercedez Castaneda, RECEPTIONIST TELEPHONE OPERATOR.SUPERVISOR HOT DIP TINNING [address] [facility] [place] [address] Annual Medicare Wellness w/6 month follow-up [facility] [place] Comment on above: Annual Medicare Well ness w/6 month follow-up Start: 01-02-2025 End: 04-03-2025 Comprehensive metabolic 2000 panel - Serum or Plasma COMPREHENSIVE METABOLIC PANEL Lab Routine Type 2 diabetes mellitus with stage 3a chronic kidney disease, with long-term current use of insulin (HCC) Expected: 01/02/2025, Expires: 04/03/2025 [facility] Work Phone: Comment on above: Expected: 01/02/2025 , Expires: 04/03/2025 Start: 01-02-2025 Covid-19 Vaccine () Covid-19 Vaccine () [facility] Comment on above: Postponed from 07/14 (Declined at this time) Start: 01-02-2025 End: 04-03-2025 Hemoglobin A1c in Blood HEMOGLOBIN A1C Lab Routine Type 2 diabetes mellitus with stage 3a chronic kidney disease, with long-term current use of insulin (HCC) Expected: 01/02/2025, Expires: 04/03/2025 [facility] Comment on above: Expected: 01/02/2025 , Expires: 04/03/2025 Start: 01-02-2025 End: 04-03-2025 Lipid 1996 panel - Serum or Plasma LIPID PANEL BASIC Lab Routine Hyperlipidemia, unspecified hyperlipidemia type Expected: 01/02/2025, Expires: 04/03/2025 [facility] Comment on above: Expected: 01/02/2025 , Expires: 04/03/2025 Start: 01-02-2025 End: 04-03-2025 Microalbumin/Creatinine [Mass Ratio] in Urine ALBUMIN/CREATININE RATIO, URINE Lab Routine Type 2 diabetes mellitus with stage 3a chronic kidney disease, with long-term current use of insulin (HCC) Expected: 01/02/2025, Expires: 04/03/2025 [facility] Comment on above: Expected: 01/02/2025 , Expires: 04/03/2025 Start: 01-02-2025 RSV Vaccine (1 - 1-d ose 60+ series) RSV Vaccine (1 - 1-dose 60+ series) [facility] Comment on above: Postponed from 06/05 (Declined at this time) Start: 01-02-2025 RSV Vaccine (1 - 1-d ose 75+ series) RSV Vaccine (1 - 1-dose 75+ series) [facility] Comment on above: Postponed from 06/05 (Declined at this time) Start: 01-02-2025 Shingrix Vaccine (1 of 2) Norris grix Vaccine (1 of 2) [facility] Comment on above: Postponed from 06/05 (Declined at this time) Start: 12-17-2024 End: 12-17-2024 Patient encounter procedure 12/17/2024 9:40 AM EST Office Visit [facility] [place] [address] [facility] [place] [address] Mercedez Castaneda, RECEPTIONIST TELEPHONE OPERATOR.SUPERVISOR HOT DIP TINNING [address] [place] [address] [address] / Annual check up [facility] [place] Comment on above: follow up from [facility] / Annual check up Start: 12-09-2024 End: 12-09-2024 Patient encounter procedure 12/09/2024 9:30 AM EST Office Visit Urology [address] [place], [place] [id number] Maxi Flores APRN.SUPERVISOR HOT DIP TINNING, DNP [address] [place] [address] 9 month f/u Urology Comment on above: 9 month f/u Start: 12-05-2024 Hepatitis B surface antibody level LDL Cholesterol [facility] Start: 11-13-2024 Advance Directive Discussion Advance Directive Discussion [facility] Start: 07-14-2024 Covid-19 Vaccine () Covid-19 Vaccine () [facility] Start: 07-14-2024 Influenza vaccination Influenza Vacc ine (#1) [facility] Start: 07-02-2024 End: 07-02-2024 Patient encounter procedure 07/02/2024 8:40 AM EDT Office Visit [facility] [place] [address] [place] [address] Jeremi Morel MD [address] [place] [address] 6 month follow up [facility] [place] Comment on above: 6 month follow up Start: 06-04-2024 Hemoglobin A1c measurement HbA1C [facility] Start: 02-09-2024 Glaucoma screening Dilated Retinal E xam [facility] Comment on above: Postponed from 08/17 (Currently Scheduled) Start: 02-01-2024 3 comp foot exam completed DIABETIC FOOT EXAM [facility] Start: 02-01-2024 Diabetic foot examination Diabetic F oot Exam [facility] Start: 11-27-2023 Patient discharge [facility] Start: 11-27-2023 Removal of urinary catheter [facility] Start: 11-26-2023 Chest PA and Lateral Chest PA and La teral [facility] Start: 11-26-2023 XR Chest PA and Lateral [facility] Start: 11-25-2023 Bacteria identified in Blood by Culture Blood Culture [facility] Start: 11-25-2023 Ambulation without limitation [facility] Start: 11-25-2023 Assessment of risk o f venous thromboembolism [facility] Start: 11-25-2023 Care regimes management [facility] Start: 11-25-2023 Catheterization of vein [facility] Start: 11-25-2023 Insertion of cathete r into peripheral vein [facility] Start: 11-25-2023 Measuring intake and output [facility] Start: 11-25-2023 Notification of physician [facility] Start: 11-25-2023 Oxygen therapy [facility] Start: 11-25-2023 Providing care accor ding to standard [facility] Start: 11-25-2023 [facility] Start: 11-25-2023 Following clinical pathway protocol [facility] Start: 11-25-2023 Verification routine [facility] Start: 11-25-[address] [facility] Start: 11-25-2023 Hospital admission, emergency, from emergency room, medical nature [facility] Start: 11-25-2023 End: 11-25-2023 Blood culture [facility] Start: 11-25-2023 Patient referral to dietitian [facility] Start: 11-13-2023 Advance Directive Discussion Advance Directive Discussion [facility] Start: 11-13-2023 Behavioral Health Screening Behavioral Health Screening [facility] Start: 11-13-2023 Depression Assessment Depression Ass essment [facility] Start: 10-17-2023 Hepatitis B screening URINE AL BUMIN:CREATININE RATIO [facility] Start: 10-17-2023 Hepatitis B surface antibody level LDL CHOLESTEROL [facility] Start: 08-22-2023 Hemoglobin A1c/Hemoglobin.total in Blood HBA1C [facility] Start: 08-17-2023 Glaucoma screening Dilated Retinal E xam [facility] Start: 08-17-2023 Hepatitis C antibody , confirmatory test DILATED RETINAL EXAM [facility] Start: 08-02-2023 COVID-19 VACCINE (4 - Booster for Moderna series) COVID-19 VACCINE (4 - Booster for Moderna series) [facility] Comment on above: Postponed from 03/31 (Declined at this time) Postponed from 01/26 (Declined at this time) Start: 08-02-2023 Covid-19 Vaccine (4 - Moderna series) Covid-19 Vaccine (4 - Moderna series) [facility] Comment on above: Postponed from 01/26 (Declined at this time) Start: 07-14-2023 Covid-19 Vaccine ( season) Covid-19 Vaccine () [facility] Start: 07-14-2023 Influenza vaccination Influenza Vacc ine (#1) [facility] Start: 03-12-2023 Hemoglobin A1c/Hemoglobin.total in Blood HBA1C [facility] Start: 11-13-2022 ADVANCE DIRECTIVE DISCUSSION ADVANCE DIRECTIVE DISCUSSION [facility] Start: 10-25-2022 SHINGRIX VACCINE (1 of 2) NORRIS GRIX VACCINE (1 of 2) [facility] Comment on above: Postponed from 06/05 (Declined at this time) Start: 09-06-2022 3 comp foot exam completed DIABETIC FOOT EXAM [facility] Start: 08-12-2022 Hepatitis C antibody , confirmatory test DILATED RETINAL EXAM [facility] Start: 03-31-2022 COVID-19 VACCINE (4 - Booster for Moderna series) COVID-19 VACCINE (4 - Booster for Moderna series) [facility] Start: 02-22-2022 Hemoglobin A1c/Hemoglobin.total in Blood HBA1C [facility] Start: 11-13-2021 ADVANCE DIRECTIVE DISCUSSION ADVANCE DIRECTIVE DISCUSSION [facility] Start: 11-13-2021 DEPRESSION ASSESSMENT DEPRESSION ASS ESSMENT [facility] Start: 10-01-2021 Hepatitis B screening URINE AL BUMIN:CREATININE RATIO [facility] Start: 05-01-2021 Hepatitis B surface antibody level LDL CHOLESTEROL [facility] Start: 1997 Hepatitis B Vaccine (1 of 3 - Risk 3-dose series) Hepatitis B Vaccine (1 of 3 - Risk 3-dose series) [facility] Start: 1997 RSV Vaccine (1 - 1-d ose 60+ series) RSV Vaccine (1 - 1-dose 60+ series) [facility] Start: 1987 SHINGRIX VACCINE (1 of 2) NORRIS GRIX VACCINE (1 of 2) [facility] Start: 1955 Anxiety Screening Anxiety Screening [facility] Start: 1955 Depression Screening Depression Scre ening [facility] Basic metabolic 2008 panel with ionized calcium - Serum or Plasma [facility] CBC W Auto Different ial panel - Blood [facility] Lactic acid measurement [facility] Natriuretic peptide. B prohormone N-Terminal [Mass/volume] in Serum or Plasma [facility] Patient referral [facility] Work Phone: POST VOID RESIDUAL POST VOID RES IDUAL Procedures Routine Benign prostatic hyperplasia with urinary frequency Frequency of urination Screening for genitourinary condition Ordered: 09/25/2023 [facility] Work Phone: Comment on above: Ordered: 09/25/2023 POST VOID RESIDUAL POST VOID RES IDUAL Procedures Routine Benign prostatic hyperplasia with urinary frequency Frequency of urination Ordered: 03/04/2024 [facility] Work Phone: Comment on above: Ordered: 03/04/2024 POST VOID RESIDUAL POST VOID RES IDUAL Procedures Routine Benign prostatic hyperplasia with urinary frequency Frequency of urination Ordered: 12/09/2024 [facility] Work Phone: Comment on above: Ordered: 12/09/2024 UA DIP, URINE (POC) UA DIP, URIN E (POC) Lab Routine Dysuria Ordered: 08/28/2023 [facility] Work Phone: Comment on above: Ordered: 08/28/2023 Urinalysis complete panel - Urine [facility] XR Chest PA and Lateral [facility] Immunizations Immunization Date Immunization Notes Care Provider [facility] 11-04-2024 Covid (Spikevax) Dr. Jeremi Morel MD Work Phone: [facility] 10-12-2024 influenza, high dose seasonal, preservative-free Dr. Jeremi Morel MD Work Phone: [facility] 11-26-2023 Influenza High-Dose Quadrivalent Dr. Jeremi Morel Work Phone: [facility] 11-26-2023 influenza virus vacc ine, unspecified formulation Jeremi Morel MD Work Phone: [facility] 08-02-2022 influenza, high-dose , quadrivalent vaccine (FLUZONE HIGH DOSE QUADRIVALENT) Mercedez Older RECEPTIONIST TELEPHONE OPERATOR.SUPERVISOR HOT DIP TINNING Work Phone: [facility] Work Phone: 08-02-2022 influenza virus vacc ine, unspecified formulation Jeremi Morel MD Work Phone: [facility] 12-01-2021 Covid (Pfizer) Dr. Jeremi Morel MD Work Phone: [facility] 12-01-2021 COVID-19 vaccine, ag e 12+ yr ([employer] [facility]) Jeremi Morel MD Work Phone: [facility] Work Phone: 07-22-2021 influenza, high-dose , quadrivalent vaccine (FLUZONE HIGH DOSE QUADRIVALENT) Jeremi Morel MD Work Phone: [facility] Work Phone: 03-10-2021 COVID-19 vaccine, fu ll dose (MODERNA) Jeremi Morel MD Work Phone: [facility] Work Phone: 02-17-2021 Covid (Moderna) Dr. Jeremi Morel Work Phone: [facility] 02-10-2021 Covid (Moderna) Dr. Jeremi Morel MD Work Phone: [facility] 09-17-2020 influenza, high-dose , quadrivalent vaccine (FLUZONE HIGH DOSE QUADRIVALENT) Jeremi Morel MD Work Phone: [facility] Work Phone: 10-30-2019 influenza, injectabl e, quadrivalent, preservative free Dr. Jeremi Morel Work Phone: [facility] 10-30-2019 influenza, seasonal, injectable, preservative free Jeremi Morel MD Work Phone: [facility] Work Phone: 10-25-2019 tetanus toxoid, redu vasiliy diphtheria toxoid, and acellular pertussis vaccine, adsorbed Jeremi Morel MD Work Phone: [facility] Work Phone: 09-10-2018 influenza, high dose seasonal, preservative-free Jeremi Morel MD Work Phone: [facility] 08-13-[address] Jeremi Morel Work Phone: [facility] 09-06-2017 influenza, high dose seasonal, preservative-free Jeremi Morel MD Work Phone: [facility] 08-18-2016 influenza, high dose seasonal, preservative-free Jeremi Morel MD Work Phone: [facility] 07-30-2015 influenza, high dose seasonal, preservative-free Jeremi Morel MD Work Phone: [facility] 07-30-2015 pneumococcal conjuga te vaccine, 13 valent Jeremi Morel MD Work Phone: [facility] 08-28-2014 influenza, injectabl e, quadrivalent, preservative free Dr. Jeremi Morel MD Work Phone: [facility] 08-28-2014 influenza, seasonal, injectable Jeremi Morel MD Work Phone: [facility] 08-28-2013 influenza virus vacc ine, unspecified formulation Jeremi Morel MD Work Phone: [facility] 08-28-2013 pneumococcal polysaccharide vaccine, 23 valent Jeremi Morel MD Work Phone: [facility] 08-23-2012 influenza virus vacc ine, unspecified formulation Jeremi Morel MD Work Phone: [facility] 09-15-2011 influenza virus vacc ine, unspecified formulation Jeremi Morel MD Work Phone: [facility] 09-10-2010 influenza virus vacc ine, unspecified formulation Jeremi Morel MD Work Phone: [facility] Work Phone: 08-27-2008 influenza virus vacc ine, unspecified formulation Jeremi Morel MD Work Phone: [facility] 09-05-2006 influenza virus vacc ine, unspecified formulation Jeremi Morel MD Work Phone: [facility] 10-28-2005 influenza virus vacc ine, unspecified formulation Jeremi Morel MD Work Phone: [facility] Work Phone: 12-21-2004 diphtheria and tetan us toxoids, adsorbed for pediatric use Jeremi Morel MD Work Phone: [facility] Work Phone: Payers Date Payer Category Payer Medicaid [id number] 2024 Medicare [id number] 2024 Medicare [id number] 2019 Self-pay 2017 Unknown [employer]IM[employer] HMO POS [id number] 2017-Present [phone] [address] [place] [address] O [id number] 2017 Medicare [id number] 2014 Unknown [id number] [id number] 2010 Unknown [id number] 1937 Unknown [id number] 2.840.1.643850.3.579.2.62 1937 Unknown [id number] 2.16840.1.633134.3.579.2.62 1937 Unknown [id number] 2.840.1.116777.3.579.2.62 1937 Unknown [id number] 2.840.1.005814.3.579.2. 1937 Unknown [id number] 2.16.840.1.020148.3.579.2.627 1937 Unknown [id number] 2.16.840.1.844880.3.579.2.627 Unknown [id number] 2.16.840.1.440254.3.579.2.462 Unknown [id number] 2.16.840.1.856409.3.579.2.462 Unknown [id number] 2.16.840.1.794744.3.579.2.462 Unknown [id number] 2.16.840.1.426985.3.579.2.462 Unknown [id number] 2.16.840.1.229775.3.579.2.462 Unknown [id number] 2.16.840.1.310231.3.579.2.462 Unknown [id number] 2.16.840.1.098909.3.579.2.462 Unknown [id number] 2.16.840.1.034581.3.579.2.462 Unknown [id number] 2.16.840.1.153031.3.579.2.462 Unknown [id number] 2.16.840.1.077610.3.579.2.462 Unknown [id number] 2.16.840.1.670455.3.579.2.462 Unknown [id number] 2.16.840.1.126221.3.579.2.462 Unknown [id number] 2.16.840.1.154134.3.579.2.462 Unknown [id number] 2.16.840.1.573686.3.579.2.462 Unknown [id number] 2.16.840.1.748649.3.579.2.462 Unknown [id number] 2.16.840.1.869823.3.579.2.462 Unknown [id number] 2.16.840.1.288708.3.579.2.462 Unknown [id number] 2.16.840.1.356401.3.579.2.462 Unknown [id number] 2.16.840.1.353027.3.579.2.462 Unknown [id number] 2.16.840.1.717529.3.579.2.462 Unknown [id number] 2.16.840.1.588587.3.579.2.462 Unknown [id number] 2.16.840.1.149203.3.579.2.462 Unknown [id number] 2.16.840.1.022046.3.579.2.462 Unknown [id number] 2.16.840.1.802478.3.579.2.462 Unknown [id number] 2.16.840.1.514089.3.579.2.462 Unknown [id number] 2.16.840.1.864720.3.579.2.462 Unknown [id number] 2.16.840.1.577057.3.579.2.462 Unknown [id number] 2.16.840.1.413633.3.579.2.462 Unknown [id number] 2.16.840.1.402531.3.579.2.462 Social History Date Type Detail Facility Start: 08-02-2022 End: 11-01-2024 Tobacco smoking status NHIS Ex-smoker [facility] End: 12-07-2001 History of tobacco use Current smoker [facility] End: 12-07-2001 History of tobacco use Cigar Smoker [facility] Start: 01-20-2022 End: 08-28-2023 Alcohol intake Current non-drinker of alcohol (finding) [facility] Start: 1935 Sex Assigned At Not on file C [facility] Start: 08-02-2022 Tobacco use and exposure Smoke less tobacco non-user [facility] Work Phone: Start: 07-23-2022 End: 08-02-2022 Exposure to SARS-CoV-2 (event) Not sure [facility] Work Phone: Start: 05-05-2023 End: 01-02-2024 History of Social function [facility] Work Phone: Start: 05-05-2023 End: 01-02-2024 Tobacco use panel [facility] Work Phone: Adult Depression Screening Assessment 6 [facility] Work Phone: Start: 08-08-2023 End: 11-25-2023 Tobacco smoking status NHIS Unknown if ever smoked [facility] Start: 10-25-2019 None [facility] Start: 10-25-2019 Alone [facility] Start: 11-05-2019 Non-smoker;Cigars [facility] Start: 1935 Sex Assigned At Male W [facility] Start: 09-25-2023 End: 12-17-2024 Alcohol intake Ex-drinker (finding) [facility] How often to you hav e a drink containing alcohol? Never [facility] Work Phone: Sexual Orientation [facility] Start: 10-07-2019 Sex Male (finding) [facility] Medical Equipment Procedure Code Equipment Code Equipment Origin al Text Equipment Identifier Dates Test blood sugar (s) 2 times daily. Dx: Type 2 DM - Uncontrolled E11.65 Insulin: No [id number], [id number] Start: 11-16-2020 End: 01-02-2024 Comment on above: Test blood sugar(s) 2 times daily. Dx: Type 2 DM - Uncontrolled E11.65 Insulin: No Unknown Unknown 01/01/19 Unknown Unknown FDA Start: 01-01-2019 Goals Date Patient Goal Desired Activity /State Functional Status Date Assessment Result Facility 11-01-2024 Functional Status Room check performed [facility] 11-01-2024 Functional Status [facility] 10-31-2024 Functional Status [facility] 10-31-2024 Functional Status bilateral knee high removed/off [facility] 10-31-2024 Functional Status Mod I [facility] 10-31-2024 Functional Status Done [facility] 10-31-2024 Functional Status Front wheeled walker [facility] 10-31-2024 Functional Status [facility] 10-31-2024 Functional Status [facility] 10-31-2024 Functional Status [facility] 10-31-2024 Functional Status [facility] 10-30-2024 Functional Status [facility] 10-30-2024 Functional Status [facility] 10-30-2024 Functional Status Skin Care Prev entative Intervention(s) heel(s)s elevated [facility] 10-29-2024 Functional Status [facility] 10-29-2024 Functional Status [facility] 10-29-2024 Functional Status 90 [facility] 10-29-2024 Functional Status Mod I [facility] 10-29-2024 Functional Status [facility] 10-28-2024 Functional Status [facility] 10-28-2024 Functional Status [facility] 10-28-2024 Functional Status [facility] 10-28-2024 Functional Status [facility] 10-28-2024 Functional Status [facility] 10-28-2024 Functional Status Single level home [facility] 10-27-2024 Functional Status [facility] 10-26-2024 Functional Status [facility] 10-25-2024 Functional Status Dinner Percent 100 [facility] 10-25-2024 Functional Status [facility] 10-25-2024 Functional Status [facility] 10-25-2024 Functional Status [facility] 10-24-2024 Functional Status [facility] 10-24-2024 Functional Status [facility] 10-23-2024 Functional Status [facility] 10-22-2024 Functional Status [facility] 10-22-2024 Functional Status no falls in th e last 6 months, per pt. [facility] 10-22-2024 Functional Status [facility] 10-21-2024 Functional Status [facility] 10-19-2024 Functional Status Sensory Deficits None A [facility] 11-27-2023 Functional status Ambulates [facility] Work Phone: Mental Status Date Assessment Result Facility 11-01-2024 [facility]24 Mental Status [facility] 11-27-2023 Cognitive function Voice/Name [facility] Work Phone: Clinical Notes 12-05-2017 to 09-15-2025 Mercedez Castaneda APRN.ALO - 12/17/2024 9:43 AM ESTPatient Kat Rodriguez LPN - 12/09/2024 9:51 AM Maxi Mendez APRN.SAMMY PRAJAPATI - 12/09/2024 9:30 AM EST Note Date & Type Note Facility 09-15-2025 Note [facility] 12-17-2024 Note HNO ID: [id number] Author: MERCEDEZ CASTANEDA APRN.ALO Service: ? Author Type: Nurse Practitioner Type: Progress Notes Filed: 12/17/2024 10:03 Note Text: CC: Patient presents with: Hospital F/U: [facility] pleural effusion HPI Osvaldo Lucio is a 89 year old male who presents today with nurse aide for above. Patient was admitted to [facility] for pleural effusion 10/19 to 10/31. He had a chest tube placed with high output daily but was eventually removed. He developed hematuria and urinary retention during admission requiring a Webster cathter short term. He was than transferred to [facility] for strengthening prior to discharge to [facility] for director long term care care on 11/22. Patient denies any concerns today. He had follow-up with urology on 12/09. Taking medications as prescribed, denies side effects. He will have the in house physician take over care. He will still see specialists including endocrinology, podiatry, psychiatry and cardiology. Review of Systems Constitutional: Negative for chills, diaphoresis, fatigue, fever and unexpected weight change. Respiratory: Negative for cough, shortness of breath and wheezing. Cardiovascular: Negative for chest pain, palpitations and leg swelling. Gastrointestinal: Negative for abdominal pain. Genitourinary: Negative for decreased urine volume, difficulty urinating, flank pain, frequency and hematuria. Neurological: Negative for dizziness, syncope, weakness and light-headedness. 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 He has since 2006 had A1C [...] DISLOCATION W/REPAIR/INT/XTRNL FIXJ 1991 ORIF Ankle right [facility] REPLACEMENT, AORTIC VALVE, WITH CAR 01/03/2019 ALLERGIES Patient has no known allergies. MEDICATIONS finasteride (PROSCAR) 5 mg tablet Take 5 mg by mouth once daily. potassium chloride (K-TAB) 10 mEq tablet TAKE 2 (TWO) TABLETS BY MOUTH EVERY DAY tamsulosin (FLOMAX) 0.4 mg Take 2 capsules by mouth once daily. mirtazapine (REMERON) 15 mg tablet Take 1 tablet by mouth daily at bedtime. [facility]. furosemide (LASIX) 40 mg tablet Take 40 mg by mouth two times a day. clonazePAM (KLONOPIN) 0.5 mg tablet Take 0.5 mg by mouth once daily as needed. busPIRone (BUSPAR) 15 mg tablet Take 1 tablet by mouth every 12 hours. metoprolol tartrate, short acting, (LOPRESSOR) 25 mg tablet Take 0.5 tablets by mouth twice daily. ferrous sulfate 325 mg (65 mg iron) tablet Take 325 mg by mouth twice daily. multivitamin with minerals (MULTI-VITAMIN W/MINERALS ORAL) Take 1 tablet by mouth once daily. apixaban (ELIQUIS) 2.5 mg tab tab(s) Take 1 tablet by mouth twice daily. atorvastatin (LIPITOR) 40 mg tablet Take 1 tablet by mouth once daily. insulin 50/50 lispro protamine-lispro units/mL (HUMALOG MIX 50-50 KWIKPEN) 100 unit/mL (50-50) pen Inject 30 units in the morning and 28 Units in the evenings with meals. Per Dr. Lo (Patient not taking: Reported on 12/09/2024) blood sugar diagnostic (BLOOD GLUCOSE TEST) test strip Test blood sugar(s) 2 times daily. Dx: Type 2 DM - Uncontrolled E11.65 Insulin: No Lancets lancets Test blood sugar(s) 2 times daily. Dx: Type 2 DM - Uncontrolled E11.65 Insulin: No melatonin 5 mg tablet Take 1 tablet by mouth daily at bedtime. (Patient not taking: Reported on 12/09/2024) lisinopril (ZESTRIL, PRINIVIL) 20 mg tablet Take 1 tablet by mouth twice daily. (Patient not taking: Reported on 12/09 (more content not included)... [facility] 12-17-2024 History of Present illness Narrative CC: Patient presents with: Hospital F/U: [facility] pleural effusion HPI Osvaldo Lucio is a 89 year old male who presents today with nurse aide for above. Patient was admitted to [facility] for pleural effusion 10/19 to 10/31. He had a chest tube placed with high output daily but was eventually removed. He developed hematuria and urinary retention during admission requiring a [place] cathter short term. He was than transferred to [facility] for strengthening prior to discharge to [facility] for nursing home care on 11/22. Patient denies any concerns today. He had follow-up with urology on 12/09. Taking medications as prescribed, denies side effects. He will have the in house physician take over care. He will still see specialists including endocrinology, podiatry, psychiatry and cardiology. Review of Systems Constitutional: Negative for chills, diaphoresis, fatigue, fever and unexpected weight change. Respiratory: Negative for cough, shortness of breath and wheezing. Cardiovascular: Negative for chest pain, palpitations and leg swelling. Gastrointestinal: Negative for abdominal pain. Genitourinary: Negative for decreased urine volume, difficulty urinating, flank pain, frequency and hematuria. Neurological: Negative for dizziness, syncope, weakness and light-headedness. 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 He has since 2006 had A1C [...] [facility] REPLACEMENT, AORTIC VALVE, WITH CAR 01/03/2019 ALLERGIES Patient has no known allergies. MEDICATIONS finasteride (PROSCAR) 5 mg tablet Take 5 mg by mouth once daily. potassium chloride (K-TAB) 10 mEq tablet TAKE 2 (TWO) TABLETS BY MOUTH EVERY DAY tamsulosin (FLOMAX) 0.4 mg Take 2 capsules by mouth once daily. mirtazapine (REMERON) 15 mg tablet Take 1 tablet by mouth daily at bedtime. [facility]. furosemide (LASIX) 40 mg tablet Take 40 mg by mouth two times a day. clonazePAM (KLONOPIN) 0.5 mg tablet Take 0.5 mg by mouth once daily as needed. busPIRone (BUSPAR) 15 mg tablet Take 1 tablet by mouth every 12 hours. metoprolol tartrate, short acting, (LOPRESSOR) 25 mg tablet Take 0.5 tablets by mouth twice daily. ferrous sulfate 325 mg (65 mg iron) tablet Take 325 mg by mouth twice daily. multivitamin with minerals (MULTI-VITAMIN W/MINERALS ORAL) Take 1 tablet by mouth once daily. apixaban (ELIQUIS) 2.5 mg tab tab(s) Take 1 tablet by mouth twice daily. atorvastatin (LIPITOR) 40 mg tablet Take 1 tablet by mouth once daily. insulin 50/50 lispro protamine-lispro units/mL (HUMALOG MIX 50-50 KWIKPEN) 100 unit/mL (50-50) pen Inject 30 units in the morning and 28 Units in the evenings with meals. Per Dr. Lo (Patient not taking: Reported on 12/09/2024) blood sugar diagnostic (BLOOD GLUCOSE TEST) test strip Test blood sugar(s) 2 times daily. Dx: Type 2 DM - Uncontrolled E11.65 Insulin: No Lancets lancets Test blood sugar(s) 2 times daily. Dx: Type 2 DM - Uncontrolled E11.65 Insulin: No melatonin 5 mg tablet Take 1 tablet by mouth daily at bedtime. (Patient not taking: Reported on 12/09/2024) lisinopril (ZESTRIL, PRINIVIL) 20 mg tablet Take 1 tablet by mouth twice daily. (Patient not taking: Reported on 12/09/2024) FAMILY HISTORY Problem Relation Age of Onset Stroke Father brain aneurysm Social History Tobacco Use Smoking status: Former Types: Cigars Smokeless tobacco: Never Vaping Use Vaping status: Never Used Substance Use Topics Alcohol use: Not Currently Comment: Quit Drug use: Never BP 130/62 Pulse 112 Resp 12 Wt 82.8 kg (182 lb 8.7 oz) SpO2 97% BMI 27.35 kg/m Physical Exam Vitals reviewed. Constitutional: Appearance: Normal appearance. Cardiovascular: Rate and Rhythm: Normal rate. Rhythm irregular. Pulses: Normal pulses. Heart sounds: Normal heart sounds. No murmur heard. Pulmonary: Effort: Pulmonary effort is normal. Breath sounds: Normal breath sounds. No wheezing, rhonchi or rales. Skin: General: Skin is warm and dry. Neurological: Mental Status: He is alert. Psychiatric: Mood and Affect: Mood normal. Health maintenance reviewed with patient: Urine Albumin:Creatinine Ratio due on 10/17/2023 HbA1C due on 06/04/2024 Advance Directive Discussion due on 11/13/2024 LDL Cholesterol due on 12/05/2024 RSV Vaccine(1 - 1-dose 75+ series) due on 01/02/2025 Shingrix Vaccine(1 of 2) due on 01/02/2025 Dilated Retinal Exam due on 03/29/2025 Diabetic Foot Exam due on 07/02/2025 Depression Screening due on 07/02/2025 Anxiety Screening due on 07/02/2025 DTaP,Tdap,Td Vaccine(4 - Td or Tdap) due on 10/25/2029 Influenza Vaccine Completed Covid-19 Vaccine Completed Pneumococcal Vaccine: 50+ Completed I have reviewed the patient s records from [facility] and [facility] including diagnostic testing performed, their discharge medications, and my assessment and plan with the patient and any family members present at today s visit. ASSESSMENT/PLAN: 1. Pleural effusion - ICD9: 511.9, ICD10: J90 (primary diagnosis) Resolved 2. BPH with urinary obstruction - ICD9: 600.01, 599.69, ICD10: N40.1, N13.8 stable 3. Paroxysmal atrial fibrillation (HCC) - ICD9: 427.31, ICD10: I48.0 Stable, follow-up with cardiology as instructed 4. Essential hypertension - ICD9: 401.9, ICD10: I10 - Controlled - Continue current medications - Recommend home blood pressure monitoring, to bring results to next visit - Encouraged sodium restriction, DASH or Mediterranean diet 5. Type 2 diabetes mellitus with stage 3a chronic kidney disease, with long-term current use of insulin (HCC) - ICD9: 250.40, 585.3, V58.67, ICD10: E11.22, N18.31, Z79.4 - Controlled - Continue current medications - follow-up with endocrinology as instructed 6. Chronic congestive heart failure, unspecified heart failure type (HCC) - ICD9: 428.0, ICD10: I50.9 Stable, follow-up with cardiology as instructed 7. Bipolar affective disorder, current episode mixed, current episode severity unspecified (HCC) - ICD9: 296.60, ICD10: F31.60 Stable. Follow-up with psychiatry as instructed Prescription instructions reviewed with patient as applicable. Potential red flag symptoms discussed with the patient. Reviewed appropriate action plan to take if red flag symptoms occur. Patient agreeable to treatment plan. Mercedez Castaneda APRN.CNP Medical Decision Making: Problems: Moderate: 2+ stable chronic illnesses Data: Unique source(s) for external note(s) reviewed: 1 Unique test result(s) reviewed: 1 Unique test(s) ordered: 1 Risk: Low: Low risk from testing/treatment Moderate: Drug management Medical Decision Making Level: 4 - Moderate documented in this encounter [facility] 12-09-2024 Instructions Maxi Flores APRN.CNP, DNP - 12/09/2024 10:13 AM EST Follow up with Maxi Flores APRN.CNP, DNP in 1 yr Cont with Flomax and Finasteride Avoid bladder irritants - coffee, tea, cola drinks, chocolate, alcohol, artificial sweeteners and cigarettes I discussed treatment options at length including r/b/a of each: To include Medication therapy and the role of further evaluation with UDS, TRUS and cysto if indicated. Discussed the role of pharmacotherapy, including risks, benefits and alternatives: Alpha-elijah therapy [e.g. Tamsulosin] - potential risks of dizziness, asthenia, orthostasis, and retrograde ejaculation. 5-Alpha Reductase Inhibitors [e.g. Finasteride] - potential risks of painful breast enlargement, diminished libido or erectile dysfunction, ejaculatory dysfunction, gynecomastia. Return to the clinic or seek care [...] you again and maintaining your health. Maxi Flores APRN.SAMMY PRAJAPATI documented in this encounter [facility] 12-09-2024 Note HNO ID: [id number] Author: KAT ORNELAS LPN Service: ? Author Type: LICENSED NURSE Type: Progress Notes Filed: 12/09/2024 10:15 Note Text: Pvr 39ml Kat Ornelas LPN December 09, 2024 9:[address] [facility] 12-09-2024 History of Present illness Narrative Pvr 39ml Kat Ornelas LPN December 09, 2024 9:51 AM [facility] MALE PATIENT - HISTORY AND PHYSICAL EXAMINATION PATIENT: Osvaldo Lucio 09/25/[birth year]23 PCP: Jeremi Morel MD Est patient to Urology CHIEF COMPLAINT: BPH/LUTS follow up HISTORY OF PRESENT ILLNESS: 89 year old year old male with BPH/LUTS. Main complaint was urinary frequency. Hx sig for: DM2, HTN, nursing home anticoagulation, HLD, CKD3 Doing well. Admitted to [facility] on 10/18/25 for Exertional dyspnea. Was admitted for several weeks and then went to the [place] for Rehab and has now moved to the sn[facility] [address]. Overall feeling well. Using a roller walker at this time. Does not have a webster catheter. Did while he was in the hospital. Passed TOV prior to discharge. BPH: Started on Proscar last year in addition to his Flomax 0.8 mg that he takes for his prostate/BPH. PVRs were higher until started on Proscar. Doing well. No SE. No gross hematuria. Urinary symptoms controlled. Overall feeling well. Happy with response. PRESENTING HISTORY: Hematuria: none Obstructive voiding symptoms: none. Irritative voiding symptoms: frequency Urinary retention: no Urinary incontinence: no Urinary tract infection: no Patient Entered Questionnaires: INTERNATIONAL PROSTATE SYMPTOM SCORE (I-PSS) PREVIOUS TOTAL IPSS SCORE: 1 QOL = 1 1. Incomplete emptying 0 2. Frequency 5 3. Intermittency 0 4. Urgency 0 5. Weak stream 1 6. Straining 0 7. 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 He has since 2006 had A1C [...] Tobacco Use Smoking status: Former Types: Cigars Smokeless tobacco: Never Vaping Use Vaping status: Never Used Substance Use Topics Alcohol use: Not Currently Comment: Quit Drug use: Never FAMILY HISTORY Problem Relation Age of Onset Stroke Father brain aneurysm MEDICATIONS: Current Outpatient Medications Medication Sig potassium chloride (K-TAB) 10 mEq tablet TAKE 2 (TWO) TABLETS BY MOUTH EVERY DAY insulin 50/50 lispro protamine-lispro units/mL (HUMALOG MIX 50-50 KWIKPEN) 100 unit/mL (50-50) pen Inject 30 units in the morning and 28 Units in the evenings with meals. Per Dr. Lo tamsulosin (FLOMAX) 0.4 mg Take 2 capsules by mouth once daily. blood sugar diagnostic (BLOOD GLUCOSE TEST) test strip Test blood sugar(s) 2 times daily. Dx: Type 2 DM - Uncontrolled E11.65 Insulin: No doxepin capsule 50 mg Take 1 capsule by mouth daily at bedtime. [facility] mirtazapine (REMERON) 15 mg tablet Take 1 tablet by mouth daily at bedtime. [facility]. furosemide (LASIX) 40 mg tablet Take 40 mg by mouth two times a day. clonazePAM (KLONOPIN) 0.5 mg tablet Take 0.5 mg by mouth once daily as needed. busPIRone (BUSPAR) 15 mg tablet Take 1 tablet by mouth every 12 hours. Lancets lancets Test blood sugar(s) 2 times daily. Dx: Type 2 DM - Uncontrolled E11.65 Insulin: No melatonin 5 mg tablet Take 1 tablet by mouth daily at bedtime. amLODIPine (NORVASC) 10 mg tablet Take 1 tablet by mouth once daily. lisinopril (ZESTRIL, PRINIVIL) 20 mg tablet Take 1 tablet by mouth twice daily. metoprolol tartrate, short acting, (LOPRESSOR) 25 mg tablet Take 0.5 tablets by mouth twice daily. ferrous sulfate 325 mg (65 mg iron) tablet Take 325 mg by mouth twice daily. multivitamin with minerals (MULTI-VITAMIN W/MINERALS ORAL) Take 1 tablet by mouth once daily. apixaban (ELIQUIS) 2.5 mg tab tab(s) Take 1 tablet by mouth twice daily. atorvastatin (LIPITOR) 40 mg tablet Take 1 tablet by mouth once daily. No current facility-administered medications for this visit. LABS: Latest Ref Rng 12/09/2024 GLUCOSE UA (POCT) Negative mg/dL 100 ! BILIRUBIN UA (POCT) Negative Negative KETONE UA (POCT) Negative mg/dL Negative SPECIFIC GRAVITY UA (POCT) 1.005 - 1.030 1.015 HEMOGLOBIN/BLOOD UA (POCT) Negative Negative PH UA (POCT) 4.5 - 8.0 5.5 PROTEIN UA (POCT) Negative mg/dL Negative UROBILINOGEN UA (POCT) Normal E.U./dL 0.2 NITRITE UA (POCT) Negative Negative LEUKOCYTES UA (POCT) Negative Small ! COLOR UA (POCT) Yellow CLARITY UA (POCT) Clear Legend: ! Abnormal OTHER DATA: Creatinine Creatinine Date Value Ref Range Status 12/05/2023 1.21 0.73 - 1.22 mg/dL Final 10/17/2022 1.31 (H) 0.73 - 1.22 mg/dL Final 05/01/2020 0.76 0.73 - 1.22 mg/dL Final 02/01/2019 1.17 0.73 - 1.22 mg/dL Final PSA No results found for: "PSA" OFFICE DATA: POST-VOID RESIDUAL BLADDER VOLUME: YES, 39 cc Review of Systems: PAIN ASSESSMENT: CURRENTLY HAVING NO PAIN GENERAL: No weight loss, malaise or fevers GI: No nausea, vomiting MUSCULOSKELETAL: Negative for generalized joint pain SKIN: Negative for rash HEMATOLOGY/LYMPHOLOGY: Negative for swollen nodes All other systems reviewed and noncontributory PHYSICAL EXAMINATION: VITALS: BP 140/73 (BP Site: Right Arm, BP Position: Sitting, BP Cuff Size: Regular Adult) Pulse 109 Temp 36.4 C (97.6 F) (Temporal) Wt 83.8 kg (184 lb 12.8 oz) SpO2 96% BMI 27.69 kg/m GENERAL: alert, no distress, normal affect CARDIAC: RRR, no m/g/r. RESPIRATORY: normal effort EXTREMITIES: normal SKIN: normal NEUROLOGIC: normal ASSESSMENT/PLAN: 1. Benign prostatic hyperplasia with urinary frequency - ICD9: 600.01, 788.41, ICD10: N40.1, R35.0 (primary diagnosis) 89 year old year old male with BPH/LUTS. Main complaint was urinary frequency. Hx sig for: DM2, HTN, director long term care anticoagulation, HLD, CKD3 Doing well. Admitted to [facility] on 10/18/25 for Exertional dyspnea. Was admitted for several weeks and then went to the [place] for Rehab and has now moved to the snf [facility]. Overall feeling well. Using a roller walker at this time. Does not have a webster catheter. Did while he was in the hospital. Passed TOV prior to discharge. Stable control on Proscar and Flomax. PVRs improved. Denies being in AUR. No pain.Overall feeling well today. No f/c/n/v. Responded well to Proscar. PVR = 39 ml. UA: + glu and LE Plan: Cont with Flomax and Proscar Cysto/TRUS - if symptoms worsen RTC for any UTI symptoms or go to ER for AUR or unable to void. follow up in 12 months with Maxi Flores APRN.SUPERVISOR [employer], DNP - POST VOID RESIDUAL - FINASTERIDE 5 MG TABLET - TAMSULOSIN 0.4 MG CAPSULE 2. Frequency of urination - ICD9: 788.41, ICD10: R35.0 Plan as above I spent a total of 30 minutes on the date of the service which included preparing to see the patient, [id number] patient care, completing clinical documentation, performing a medically appropriate examination, counseling and educating the patient/family/caregiver and ordering medications, tests, or procedures. This note was copied from previous note and exam dated 03/04/24. Author is Maxi Flores APRN.SAMMY PRAJAPATI note reviewed and changes have been made or updates noted in the copy & paste portion of an encounter. Maxi Flores DNP, ALO Department of Urology [facility] documented in this encounter [facility] 12-09-2024 Note HNO ID: [id number] Author: MAXI FLORES APRN.SAMMY PRAJAPATI Service: ? Author Type: Nurse Practitioner Type: Progress Notes Filed: 12/09/2024 10:15 Note Text: [facility] MALE PATIENT - HISTORY AND PHYSICAL EXAMINATION PATIENT: Osvaldo Lucio 09/25/2021 PCP: Jeremi Morel MD Est patient to Urology CHIEF COMPLAINT: BPH/LUTS follow up HISTORY OF PRESENT ILLNESS: 89 year old year old male with BPH/LUTS. Main complaint was urinary frequency. Hx sig for: DM2, HTN, nursing home anticoagulation, HLD, CKD3 Doing well. Admitted to [facility] on 10/18/25 for Exertional dyspnea. Was admitted for several weeks and then went to the [place] for Rehab and has now moved to the sn[facility] [place]. Overall feeling well. Using a roller walker at this time. Does not have a webster catheter. Did while he was in the hospital. Passed TOV prior to discharge. BPH: Started on Proscar last year in addition to his Flomax 0.8 mg that he takes for his prostate/BPH. PVRs were higher until started on Proscar. Doing well. No SE. No gross hematuria. Urinary symptoms controlled. Overall feeling well. Happy with response. PRESENTING HISTORY: Hematuria: none Obstructive voiding symptoms: none. Irritative voiding symptoms: frequency Urinary retention: no Urinary incontinence: no Urinary tract infection: no Patient Entered Questionnaires: INTERNATIONAL PROSTATE SYMPTOM SCORE (I-PSS) PREVIOUS TOTAL IPSS SCORE: 1 QOL = 1 1. Incomplete emptying 0 2. Frequency 5 3. Intermittency 0 4. Urgency 0 5. Weak stream 1 6. Straining 0 7. 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 He has since 2006 had A1C values in the 5.7-6.1 range and is on medications and does follow any dietary regime. Two times in 2008, the value was 6.5 and 6.8%. I discussed this with him and will change to impaired glucose. Nonspecific abnormal results of liver function study OA (osteoarthritis) of hip 2012 right Other and unspecified hyperlipidemia Paroxysmal atrial [...] DISLOCATION W/REPAIR/INT/XTRNL FIXJ 1992 ORIF Ankle right [facility] REPLACEMENT, AORTIC VALVE, WITH CAR 01/03/2019 Social History Tobacco Use Smoking status: Former Types: Cigars Smokeless tobacco: Never Vaping Use Vaping status: Never Used Substance Use Topics Alcohol use: Not Currently Comment: Quit Drug use: Never FAMILY HISTORY Problem Relation Age of Onset Stroke Father brain aneurysm MEDICATIONS: Current Outpatient Medications Medication Sig potassium chloride (K-TAB) 10 mEq tablet TAKE 2 (TWO) TABLETS BY MOUTH EVERY DAY insulin 50/50 lispro protamine-lispro units/mL (HUMALOG MIX 50-50 KWIKPEN) 100 unit/mL (50-50) pen Inject 30 units in the morning and 28 Units in the evenings with meals. Per Dr. Lo tamsulosin (FLOMAX) 0.4 mg Take 2 capsules by mouth once daily. blood sugar diagnostic (BLOOD GLUCOSE TEST) test strip Test blood sugar(s) 2 times daily. Dx: Type 2 DM - Uncontrolled E11.65 Insulin: No doxepin capsule 50 mg Take 1 capsule by mouth daily at bedtime. [facility]. mirtazapine (REMERON) 15 mg tablet Take 1 tablet by mouth daily at bedtime. [facility]. furosemide (LASIX) 40 mg tablet Take 40 mg by mouth two times a day. clonazePAM (more content not included)... [facility] 11-19-2024 Note [facility] 11-04-2024 Telephone encounter Note Spoke to daughter so could do TCU and schedule patient. Daughter advised patient was transferred from [place] to [facility] tcu floor and than will be discharged to snf where he will remain. When documents received will scan. Zuleika Cook MA [facility] 11-04-2024 Miscellaneous Notes Spoke to daughter so could do TCU and schedule patient. Daughter advised patient was transferred from [place] to [facility] tcu floor and than will be discharged to snf where he will remain. When documents received will scan. Zuleika Cook MA Kristina from [place] calls and states that patient was discharged from [place] on 11/01/2024 with the diagnosis of pleural effusion. Kristina if faxing over discharge notes. Gladys Eldridge RN documented in this encounter [facility] 11-04-2024 Telephone encounter Note Kristina from [place] calls and states that patient was discharged from [place] on 11/01/2024 with the diagnosis of pleural effusion. Kristina if faxing over discharge notes. Gladys Eldridge RN [facility] 11-01-2024 Discharge summary Date of Service 11/01/24 Discharge Diagnosis *Acute hypoxemic respiratory failure due to fluid overload and pleural effusion *Bilateral pleural effusion, s/p chest tube removal on 10/28 *Gross hematuria with known BPH *HFpEF with mild acute on chronic decompensation, stable *BPH s/p Webster catheter insertion, will be dsicharged with the folye in *PAF, off anticoagulation due to above *Hyperlipidemia * s/p TAVR *CKD-II *DM-II, acceptable control Hospital Course 89-year-old male with medical history significant for paroxysmal atrial fibrillation on chronic Eliquis therapy, congestive heart failure, CAD status post CABG CKD stage III. Patient presents to the hospital with complaints of shortness of breath. Patient was recently in the hospital and discharged on 10/13 for CHF exacerbation. Patient had imaging performed which showed loculated pleural effusion patient seen by pulmonary ordered for chest tube placement. Currently awaiting on results of thoracentesis/chest tube. Pleural fluid sent to lab. Appears transudative. Patient seen by cardiothoracic surgery and pulmonary planning repeat imaging on 10/25. Patient did have adjustment of suction to 30 by cardiothoracic. Patient still having high output through chest tube once output decreases to 200 cc/day recommended by pulmonary for removal. Patient seen by urology greatly appreciate their assistance patient did have irrigations this is improved output. Patient can follow-up with urology as an outpatient. Hematuria has resolved on 10/26 on 10/26 Patient with clear urine anticoagulation had been held since initial presentation for possible necessitation of procedure. initiate heparin gtt incase patient has further hematuria. today with close monitoring of hemoglobin and of hematuria. On 10/27 unfortunately did develop hematuria, this resolved spontaneously. Allergies NKA Procedures Date of Service 10/21/2024 Procedure Name Difficult webster placement Consent verbal consent obtained from patient. Indication nurses unable to place catheter Pre-Procedure Exam abd soft, nt, nd Procedural Sedation none Technique 20 F webster placed with difficulty using catheter guide under sterile technique Findings 900 ml drained from bladder of bloody urine. Pt may need manual irrigation Complications none Estimated Blood Loss 50 ml Total Time 20 minutes INTERVENTIONAL RADIOLOGY POST PROCEDURE NOTE Pre-Procedure Diagnosis: [ left pleural effusion] Post Procedure Diagnosis: Same. 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 Satya Johnson DO Procedure: [10 fr left chest tube/pleural drain placement ] Anesthesia: [1% lidocaine without epinephrine] Findings: [left chest tube in satisfactory position. no complications suggested. ] Estimated Blood Loss: Minimal (Less Than 10 mL). [ ] Specimen: None. Complications: None. Consults Consult to Physician - Ordered -- 10/19/24 10:56:00 JACOB KIDD BALDEV S MD, Routine, Bilateral Loculated pleural effusions with hypoxia. Consult to Physician - Ordered -- 10/20/24 17:08:00 CHRISTINE KIDD EYAD MD, Routine, loculated effusion Consult to Physician - Ordered -- 10/21/24 19:11:00 ODILIA KIDD DAVID S MD, Routine, hematuria, urinary retention Consult to Physician - Ordered -- 10/23/24 15:52:00 JACOB KIDD BALDEV S MD, Routine, loculated pleural effusion Imaging Results and Diagnostics XR Chest 1 View Result Date: October 28, 2024 Verified By: DANGELO AVILES MD CLINICAL STATEMENT: IMPRESSION: Interval removal of left pleural pigtail catheter without evidence ofpneumothorax. There is residual small left pleural effusion with likelyunderlying left base atelectasis and or consolidation. Small right base effusion with likely underlying atelectasis and orconsolidation. Unchanged interstitial prominence which may be related to edema versus adiffuse interstitial infectious or inflammatory process. XR Chest 1 View Result Date: October 28, 2024 Verified By: MANUEL BUENO MD CLINICAL STATEMENT: IMPRESSION: 1. Unchanged bilateral interstitial infiltrates.2. Small right pleural effusion. XR Chest 1 View Result Date: October 27, 2024 Verified By: MANUEL BUENO MD CLINICAL STATEMENT: IMPRESSION: 1. Stable bilateral lung infiltrates and small bilateral pleural effusions.2. No pneumothorax. XR Chest 1 View Result Date: October 25, 2024 Verified By: MANUEL BUENO MD CLINICAL STATEMENT: IMPRESSION: Continued trace left and small right pleural effusions with associatedairspace disease. Stable left basilar pigtail catheter. I have personally reviewed the images of this examination, and agree with theresident's findings and interpretation. XR Chest 1 View Result Date: October 22, 2024 Verified By: CORNELL KLEIN MD CLINICAL STATEMENT: IMPRESSION: 1. Unchanged small, left greater than right pleural effusions.2. Unchanged right lower lobe airspace disease.3. Unchanged ovoid opacities in the right lung representing fluid trapped inthe minor and major fissures.4. Left-sided chest tube in place IR Chest Tube Insertion Result Date: October 21, 2024 Verified By: SATYA JOHNSON DO CLINICAL STATEMENT: IMPRESSION: Successful ultrasound guided placement of a 10 Singaporean left chest tube whichwas fixed to the patient's skin and attached to pleura vac. Pleura vac wasordered to continuous 20 cm water wall suction. No complication suggested XR Chest 1 View Result Date: October 21, 2024 Verified By: PATRIC BLANK, JAMAAL Red CLINICAL STATEMENT: IMPRESSION: Loculated right pleural effusion with patchy multifocal airspace disease inthe right lung. Follow to resolution. Small residual left pleural effusion with the left pleural space catheter inplace Mild vascular congestion pattern CT Thorax w/o Contrast Result Date: October 20, 2024 Verified By: SATYA LONG MD CLINICAL STATEMENT: IMPRESSION: 1. Bilateral pleural effusions with some loculation as described. On theright, a portion of the loculated fluid accounts for previously seen masslikedensity.2. Somewhat nodular infiltrate at the posterior aspect of the right lowerlobe. Atypical infectious and inflammatory etiologies are favored, includingfor the perihilar nodule. Consider 3 month follow-up study after treatmentto reassess these findings.3. Adenopathy in multiple areas, presumably reactive or hyperplastic.Attention should be given to this on follow-up as well. XR Chest 1 View Result Date: October 20, 2024 Verified By: CECILLE HUBBARD MD CLINICAL STATEMENT: IMPRESSION: Hazy interstitial and alveolar airspace disease bilaterally with smallbilateral effusions. Findings could represent congestion/edema versus adeveloping infectious or inflammatory process. 4.9 cm masslike opacity in the right mid lung is indeterminate, CT thoraxcould be useful in further evaluation. Physical Exam Vitals and Measurements T: 36.7 C (Oral) HR: 64 (Apical) RR: 18 BP: 126/59 SpO2: 94% Weight Dosing Weight: 88.6 kg (10/19/24) general: well appearing, sitting in chair cardiac: RRR lungs: CTABL Code Status No qualifying data available. Admission Date 10/19/24 Discharge Date 11/01/24 Medications New Prescription [id number] Milligram by mouth every six (6) hours WHILE AWAKE as needed Pain, scale 1-10. docusate-senna (Senokot S)1 tab(s) by mouth two (2) times a day. Changed atorvastatin (Lipitor 40 mg oral tablet)1 tab(s) by mouth daily at bedtime. busPIRone (busPIRone 15 mg oral tablet)1 tab(s) by mouth two (2) times a day. doxepin (doxepin 75 mg oral capsule)1 cap by mouth daily at bedtime. metoprolol (metoprolol tartrate 25 mg oral tablet)0.5 tab(s) by mouth two (2) times a day. multivitamin with minerals (Centrum Silver oral tablet)1 tab(s) by mouth once a day. Unchanged clonazePAM (KlonoPIN 0.5 mg oral tablet)1 tab(s) by mouth two (2) times a day as needed Anxiety. ferrous sulfate (ferrous sulfate 325 mg (65 mg elemental iron) oral tablet)1 tab(s) by mouth two (2) times a day. finasteride (Proscar 5 mg oral tablet)1 tab(s) by mouth once a day. furosemide (furosemide 40 mg oral tablet)1 tab(s) by mouth two (2) times a day. mirtazapine (Remeron 30 mg oral tablet)1 tab(s) by mouth daily at bedtime. tamsulosin (Flomax 0.4 mg oral capsule)2 cap by mouth once a day (in the evening). Discontinued amLODIPine (amLODIPine 10 mg oral tablet)1 tab(s) by mouth once a day. apixaban (Eliquis 2.5 mg oral tablet)1 tab(s) by mouth two (2) times a day. Refills: 3. insulin lispro-insulin lispro protamine (Humalog Mix) (HumaLOG Mix 50/50 KwikPen 3 mL PEN)28 unit(s) Subcutaneous two (2) times daily before meals. lisinopril (Zestril 20 mg oral tablet)1 tab(s) by mouth two (2) times a day. potassium chloride (Potassium Chloride (Eqv-K-Tab) 10 mEq oral tablet, extended release)2 tab(s) by mouth once a day before a meal. Follow Up Follow Up with [facility]-skilled unit, ; ambulette transport arranged for 11AM through [employer], Ext. [id number] When:Within 1-2 days Follow Up with JEREMI MOREL When:Within 1-2 days Where:[address] [place] [address]- Business (1) Follow Up with JEREMI MOREL When:Within 1-2 days Where:[address] [place] [address]- Business (1) Follow Up Appointments No qualifying data available. Follow Up Labs/Studies Discharge Labs No Follow-up Labs Discharge Studies No Follow-up Studies Discharge Diet No qualifying data available. Discharge Activity No qualifying data available. Condition on Discharge fair Discharge Disposition snf Information Provided To patient Time Spent 15min Digitally Signed by YUE YE MD on 11/01/2024 07:48 PM [facility] 11-01-2024 Note [facility] 11-01-2024 Hospital Discharge instructions Patient Education 11/01/2024 10:14:52 Acute Urinary Retention, Male Acute Urinary Retention, Male Acute urinary retention is a condition in which a person is unable to pass urine. This can last for a short time or for a long time. If left untreated, it can result in kidney damage or other serious complications. What are the causes? This condition may be caused by: Obstruction or narrowing of the tube that drains the bladder (urethra). This may be caused by surgery or problems with nearby organs, such as the prostate gland, which can press or squeeze the urethra. Problems with the nerves in the bladder. These can be caused by diseases, such as multiple sclerosis, or by spinal cord injuries. Certain medicines. Tumors in the area of the pelvis, bladder, or urethra. Diabetes. Degenerative cognitive conditions such as delirium or dementia. Bladder or urinary tract infection. Constipation. Blood in the urine (hematuria). Injury to the bladder or urethra. Psychological (psychogenic) conditions. Someone may hold his urine due to trauma or because he does not want to use the bathroom. What increases the risk? This condition is more likely to develop in older men. As men age, their prostate may become larger and may start pressing or squeezing on the bladder or the urethra. What are the signs or symptoms? Symptoms of this condition include: Trouble urinating. Pain in the lower abdomen. Symptoms usually come on slowly over a long period of time. How is this diagnosed? This condition is diagnosed based on a physical exam and a medical history. You may also have other tests, including: An ultrasound of the bladder or kidneys or both. Blood tests. A urine analysis. Additional tests may be needed such as an MRI, kidney, or bladder function tests. How is this treated? Treatment for this condition may include: Medicines. Placing a thin, sterile tube (catheter) into the bladder to drain urine out of the body. This is called an indwelling urinary catheter. After being inserted, the catheter is held in place with a small balloon that is filled with sterile water. Urine drains from the catheter into a collection bag outside of the body. Behavioral therapy. Treatment for any underlying conditions. If needed, you may be treated in the hospital for kidney function problems or to manage other complications. Follow these instructions at home: Take bmax-esi-odgjttm and prescription medicines only as told by your health care provider. Avoid certain medicines, such as decongestants, antihistamines, and some prescription medicines. Do not take any medicine unless your health care provider has approved. If you were given an indwelling urinary catheter, take care of it as told by your health care provider. Drink enough fluid to keep your urine clear or pale yellow. If you were prescribed an antibiotic, take it as told by your health care provider. Do not stop taking the antibiotic even if you start to feel better. Do not use any products that contain nicotine or tobacco, such as cigarettes and e-cigarettes. If you need help quitting, ask your health care provider. Monitor any changes in your symptoms. Tell your health care provider about any changes. If instructed, monitor your blood pressure at home. Report changes as told by your health care provider. Keep all follow-up visits as told by your health care provider. This is important. Contact a health care provider if: You have uncomfortable bladder contractions that you cannot control (spasms) or you leak urine with the spasms. Get help right away if: You have chills or fever. You have blood in your urine. You have a catheter and: ?Your catheter stops draining urine. ?Your catheter falls out. Summary Acute urinary retention is a condition in which a person is unable to pass urine. If left untreated, it can result in kidney damage or other serious complications. The cause of this condition may include an enlarged prostate. As men age, their prostate gland may become larger and may start pressing or squeezing on the bladder or the urethra. Treatment for this condition may include medicines and placement of an indwelling urinary catheter. Monitor any changes in your symptoms. Tell your health care provider about any changes. This information is not intended to replace advice given to you by your health care provider. Make sure you discuss any questions you have with your health care provider. Document Released: 02/05/2002 Document Revised: 10/12/2018 Document Reviewed: 12/01/2017 [employer] Patient Education [employer]. Follow Up [facility] 10[facility]18[facility]20[facility] 16:12[facility]45 [facility] arranged for 11AM through [employer], Ext. [id number] Address:Unknown When:1-2 days With:JEREMI MOREL Address: [address] [place] [id number] Business (1) When:1-2 days With:JEREMI MOREL Address: [address] [place] [id number] [facility] (1) When:1-2 days [facility] 11-01-2024 Note Discharge Instructions Thank you for allowing [facility] to assist you with your healthcare needs. The following is important discharge information regarding your hospital visit. Your Care Team JEREMI MOREL MD Your Diagnosis Acute hypoxic respiratory failure Aortic stenosis S/P AVR 2019 Bilateral pleural effusion CKD (chronic kidney disease) stage 2, GFR 60-89 ml/min Coronary artery disease S/P CABG 2019 Diabetes Gross hematuria Heart failure with preserved ejection fraction Paroxysmal atrial fibrillation Urinary retention What to do next Follow [facility] ; amb[facility] transport arranged for 11AM through [employer], Ext. [id number] When:Within 1-2 days Follow Up with JEREMI MOREL When:Within 1-2 days Where:[address] [facility] [place] [address]- Business (1) Follow Up with JEREMI MOREL When:Within 1-2 days Where:[address] [facility] [place] [address]- Business (1) The Following Activity and Diet Have Been Ordered for You Discharge Activity - Ordered -- NO activity restrictions, 10/31/24 13:45:00 EST Transfer of Care Activity - Ordered -- Activity As Tolerated, 10/31/24 15:48:00 EST Discharge Diet - Ordered -- Type of Diet: Regular, 10/31/24 13:45:00 EST Transfer of Care Diet - Ordered -- Type of Diet: Regular Diet, 10/31/24 15:48:00 EST The Following Equipment Has Been Ordered for You Discharge Home Equipment Transfer of Care Urinary Catheter Insertion/Care - Ordered -- Indwelling, Routine care per facility guidelines., 10/31/24 15:48:33 EST The Following Treatments Have Been Ordered for You Discharge Labs No qualifying data available. Discharge Radiology No qualifying data available. Other Therapies No qualifying data available. Post Acute Orders Transfer of Care Admission Level of Care - Ordered -- Level of Care SNF, 11/01/24 10:16:47 EST Transfer of Care Code Status - Ordered -- Full Code, Constant Order Transfer of Care Communication Order - Ordered -- Expect less than 30 day stay., 11/01/24 10:16:55 EST Transfer of Care Orders Electronically Signed By - Ordered -- 10/31/24 15:48:00 ALLAN KIDD MHD MOTAZ MD Transfer of Care Prognosis - Ordered -- Fair, Patient Aware: Yes Transfer of Care Rehab Potential - Ordered -- Rehab potential good, 10/31/24 15:48:33 EST Transfer of Care Urinary Catheter Insertion/Care - Ordered -- Indwelling, Routine care per facility guidelines., 10/31/24 15:48:33 EST Someone Will Contact You Regarding These Home Health Referrals No home referrals have been ordered for you. No one will call you. Allergies NKA Medications Please ask your primary doctor or pharmacist before taking any other medication not listed, including over the counter drugs, herbal medications, vitamins and or supplements as they may interact with your home medications. What How Much When Instructions Last Dose New acetaminophen 650 Milligram by mouth Every six (6) hours WHILE AWAKE as needed for Pain, scale 1-10 New docusate-senna (Senokot S) 1 tab(s) by mouth Two (2) times a day Changed atorvastatin (Lipitor 40 mg oral tablet) 1 tab(s) by mouth Daily at bedtime Changed busPIRone (busPIRone 15 mg oral tablet) 1 tab(s) by mouth Two (2) times a day Changed doxepin (doxepin 75 mg oral capsule) 1 cap by mouth Daily at bedtime Changed metoprolol (metoprolol tartrate 25 mg oral tablet) 0.5 tab(s) by mouth Two (2) times a day Changed multivitamin with minerals (Centrum Silver oral tablet) 1 tab(s) by mouth Once a day Unchanged clonazePAM (KlonoPIN 0.5 mg oral tablet) 1 tab(s) by mouth Two (2) times a day as needed for Anxiety Unchanged ferrous sulfate (ferrous sulfate 325 mg (65 mg elemental iron) oral tablet) 1 tab(s) by mouth Two (2) times a day Unchanged finasteride (Proscar 5 mg oral tablet) 1 tab(s) by mouth Once a day Unchanged furosemide (furosemide 40 mg oral tablet) 1 tab(s) by mouth Two (2) times a day Unchanged mirtazapine (Remeron 30 mg oral tablet) 1 tab(s) by mouth Daily at bedtime Unchanged tamsulosin (Flomax 0.4 mg oral capsule) 2 cap by mouth Once a day (in the evening) What How Much When Comments Stop Taking amLODIPine (amLODIPine 10 mg oral tablet) 1 tab(s) by mouth Once a day Stop Taking apixaban (Eliquis 2.5 mg oral tablet) 1 tab(s) by mouth Two (2) times a day Stop Taking insulin lispro-insulin lispro protamine (Humalog Mix) (HumaLOG Mix 50/ 50 KwikPen 3 mL PEN) 28 unit(s) Subcutaneous Two (2) times daily before meals Stop Taking lisinopril (Zestril 20 mg oral tablet) 1 tab(s) by mouth Two (2) times a day Stop Taking potassium chloride (Potassium Chloride (Eqv-K-Tab) 10 mEq oral tablet, extended release) 2 tab(s) by mouth Once a day before a meal Please take this list to your next doctor s visit. Bring all medications you take, including over the counter medications, herbals and other supplements with you to your doctor s visit. Patients and families are reminded to discard old lists and to update any records with all medication providers or retail pharmacies. Education Materials Acute Urinary Retention, Male Acute urinary retention is a condition in which a person is unable to pass urine. This can last for a short time or for a long time. If left untreated, it can result in kidney damage or other serious complications. What are the causes? This condition may be caused by: Obstruction or narrowing of the tube that drains the bladder (urethra). This may be caused by surgery or problems with nearby organs, such as the prostate gland, which can press or squeeze the urethra. Problems with the nerves in the bladder. These can be caused by diseases, such as multiple sclerosis, or by spinal cord injuries. Certain medicines. Tumors in the area of the pelvis, bladder, or urethra. Diabetes. Degenerative cognitive conditions such as delirium or dementia. Bladder or urinary tract infection. Constipation. Blood in the urine (hematuria). Injury to the bladder or urethra. Psychological (psychogenic) conditions. Someone may hold his urine due to trauma or because he does not want to use the bathroom. What increases the risk? This condition is more likely to develop in older men. As men age, their prostate may become larger and may start pressing or squeezing on the bladder or the urethra. What are the signs or symptoms? Symptoms of this condition include: Trouble urinating. Pain in the lower abdomen. Symptoms usually come on slowly over a long period of time. How is this diagnosed? This condition is diagnosed based on a physical exam and a medical history. You may also have other tests, including: An ultrasound of the bladder or kidneys or both. Blood tests. A urine analysis. Additional tests may be needed such as an MRI, kidney, or bladder function tests. How is this treated? Treatment for this condition may include: Medicines. Placing a thin, sterile tube (catheter) into the bladder to drain urine out of the body. This is called an indwelling urinary catheter. After being inserted, the catheter is held in place with a small balloon that is filled with sterile water. Urine drains from the catheter into a collection bag outside of the body. Behavioral therapy. Treatment for any underlying conditions. If needed, you may be treated in the hospital for kidney function problems or to manage other complications. Follow these instructions at home: Take uosr-crp-qjcvzjw and prescription medicines only as told by your health care provider. Avoid certain medicines, such as decongestants, antihistamines, and some prescription medicines. Do not take any medicine unless your health care provider has approved. If you were given an indwelling urinary catheter, take care of it as told by your health care provider. Drink enough fluid to keep your urine clear or pale yellow. If you were prescribed an antibiotic, take it as told by your health care provider. Do not stop taking the antibiotic even if you start to feel better. Do not use any products that contain nicotine or tobacco, such as cigarettes and e-cigarettes. If you need help quitting, ask your health care provider. Monitor any changes in your symptoms. Tell your health care provider about any changes. If instructed, monitor your blood pressure at home. Report changes as told by your health care provider. Keep all follow-up visits as told by your health care provider. This is important. Contact a health care provider if: You have uncomfortable bladder contractions that you cannot control (spasms) or you leak urine with the spasms. Get help right away if: You have chills or fever. You have blood in your urine. You have a catheter and: ? Your catheter stops draining urine. ? Your catheter falls out. Summary Acute urinary retention is a condition in which a person is unable to pass urine. If left untreated, it can result in kidney damage or other serious complications. The cause of this condition may include an enlarged prostate. As men age, their prostate gland may become larger and may start pressing or squeezing on the bladder or the urethra. Treatment for this condition may include medicines and placement of an indwelling urinary catheter. Monitor any changes in your symptoms. Tell your health care provider about any changes. This information is not intended to replace advice given to you by your health care provider. Make sure you discuss any questions you have with your health care provider. Document Released: 02/05/2002 Document Revised: 10/12/2018 Document Reviewed: 12/01/2017 [employer] Patient Education 2020 [employer] Additional Information VACCINATE! IT SAVES LIVES! Members of the community who have not yet received the COVID-19 vaccine and would like to receive it can visit one of [facility] vaccine clinics. There are many vaccine clinic locations within the [facility]. For locations and available times, please visit https://gettheshot.coronavirus.[place].gov/. It is important to note that some COVID mobile vaccine clinics are held outdoors and may be canceled in rainy or stormy conditions. To learn more about pediatric vaccinations (ages 5-11), we invite you to visit the [facility] webpage. [email or web address].[email or web address]/pa [email or web address]-Lqgdtegljem-Freque hoce-Uxowd-Vjxcyoulr.[email or web address] To learn more about the COVID-19 vaccine, we invite you to visit the CDC website for a list of frequently asked questions.https://www.cdc.gov/cor onavirus/2019-ncov/vaccines/faq.h tml [facility] Patient Portal Access Instructions: Stay connected with your healthcare team and access your personal medical information anytime with the [facility] Patient Portal. Please follow the directions below to create your [facility] account: 1.Access the email account you provided upon registration to the hospital/physician office.2.Look for an invitation email from [facility].3.Open the email and access the invitation link: Accept Invitation to [facility].4.Fill in the required amanda to create your account. To access your account, visit e(ye)BRAIN/Solicoret. Click the blue button labeled "Access Patient Portal" and then log in with the username and password that you created in the steps above. You will be able to view your test results, lab results, a summary of your visits, upcoming appointments and more. There is also a convenient messaging option where you can send secure messages to your provider. In addition, you will have the ability to download any documents or summaries to your computer and/or send the information securely to a physician. Remember that your healthcare information is confidential, so carefully consider who you will allow to register on the [facility] Patient Portal for access to your information. You can also access the [facility] Patient Portal on the [employer]ica. Simply click on "Patient Portal" and then log into your account. If you would like to receive a full copy of your medical records, please contact the [facility] Medical Records Department by calling [phone], Monday through Monday between 8 a.m. and 4:30 p.m. HOW TO SAFELY DISPOSE OF PRESCRIPTION MEDICATIONS Please use one of the following methods to safely dispose of your unused medications. 1.Use a drug disposal kit: the drug disposal pouch allows you to safely discard your old and unused drugs. Ask your nurse to give you one when you are discharged.2.Visit a local take-back location: Many local pharmacies and police departments have programs that collect old and unwanted prescription drugs. Call your local pharmacy or go to http://InGameNow/4B0Xg1k to find one close to you.3.Make use of household items: Use cat litter or old coffee grounds to dispose medications if other options are not available. Mix your drugs with these household products, seal them in an airtight container and throw it into the garbage. Call [facility]: [phone] to be sure your drugs can be disposed of in this way. Some medicines may require a different approach.4.Never flush your medications down the toilet. IF YOU HAVE BEEN PRESCRIBED AN OPIOID FOR PAIN If you have been prescribed an opioid (such as hydrocodone, oxycodone or morphine), it is critical to understand the possible side effects and risks of opioid pain medications. Even when taken as directed, opioids can have several side effects including: Tolerance, meaning you might need to take more of a medication for the same pain relief. Nausea, vomiting and/or constipation. Sleepiness, dizziness, dry mouth, confusion, depression or itching. Physical dependence, meaning you have withdrawal symptoms when a medication is stopped, can develop within a few days. KNOW YOUR RESPONSIBILITIES It is important to know exactly how much and how often to take the opioid pain medications you are prescribed. Never take opioids in higher amounts or more often than prescribed. Do not combine opioids with alcohol or other drugs that cause drowsiness, such as benzodiazepines, also known as benzos, including diazepam and alprazolam, muscle relaxants or sleep aids. Never sell or share prescription opioids. This is illegal. Store opioids in a secure place and out of reach of others (including children, family, friends and visitors). The last page of this document has been signed and retained as a CHART COPY. Signatures Patient Education Materials Acute Urinary Retention, Male Medication Leaflets My discharge plan and instructions have been reviewed and explained to me and I,OSVALDO LUCIO understand my current condition and have read and understand these discharge instructions. I have received a written copy of the plan/instructions. If I have questions, I am aware that I should contact my doctor. Patient/Labor Relations Consultant Signature: Date/Time: Relationship to Patient: ____ Witness Name/Signature: Date/Time: [facility] 11-01-2024 Note Discharge Instructions Thank you for allowing [facility] to assist you with your healthcare needs. The following is important discharge information regarding your hospital visit. Your Care Team JEREMI MOREL MD Your Diagnosis Acute hypoxic respiratory failure Aortic stenosis S/P AVR 2019 Bilateral pleural effusion CKD (chronic kidney disease) stage 2, GFR 60-89 ml/min Coronary artery disease S/P CABG 2019 Diabetes Gross hematuria Heart failure with preserved ejection fraction Paroxysmal atrial fibrillation Urinary retention What to do next Follow Up Appointments Follow Up with [facility], ; ambulette transport arranged for 11AM through [employer], Ext. [phone] When:Within 1-2 days Follow Up with JEREMI MOREL When:Within 1-2 days Where:[address] [place] [address]- Business (1) Follow Up with JEREMI MOREL When:Within 1-2 days Where:[address] [place] [address]- Business (1) The Following Activity and Diet Have Been Ordered for You Discharge Activity - Ordered -- NO activity restrictions, 10/31/24 13:45:00 EST Transfer of Care Activity - Ordered -- Activity As Tolerated, 10/31/24 15:48:00 EST Discharge Diet - Ordered -- Type of Diet: Regular, 10/31/24 13:45:00 EST Transfer of Care Diet - Ordered -- Type of Diet: Regular Diet, 10/31/24 15:48:00 EST The Following Equipment Has Been Ordered for You Discharge Home Equipment Transfer of Care Urinary Catheter Insertion/Care - Ordered -- Indwelling, Routine care per facility guidelines., 10/31/24 15:48:33 EST The Following Treatments Have Been Ordered for You Discharge Labs No qualifying data available. Discharge Radiology No qualifying data available. Other Therapies No qualifying data available. Post Acute Orders Transfer of Care Code Status - Ordered -- Full Code, Constant Order Transfer of Care Orders Electronically Signed By - Ordered -- 10/31/24 15:48:00 EST, SARA LEMUS MD Transfer of Care Prognosis - Ordered -- Fair, Patient Aware: Yes Transfer of Care Rehab Potential - Ordered -- Rehab potential good, 10/31/24 15:48:33 EST Transfer of Care Urinary Catheter Insertion/Care - Ordered -- Indwelling, Routine care per facility guidelines., 10/31/24 15:48:33 EST Someone Will Contact You Regarding These Home Health Referrals No home referrals have been ordered for you. No one will call you. Allergies NKA Medications Please ask your primary doctor or pharmacist before taking any other medication not listed, including over the counter drugs, herbal medications, vitamins and or supplements as they may interact with your home medications. What How Much When Instructions Last Dose New acetaminophen 650 Milligram by mouth Every six (6) hours WHILE AWAKE as needed for Pain, scale 1-10 New docusate-senna (Senokot S) 1 tab(s) by mouth Two (2) times a day Changed atorvastatin (Lipitor 40 mg oral tablet) 1 tab(s) by mouth Daily at bedtime Changed busPIRone (busPIRone 15 mg oral tablet) 1 tab(s) by mouth Two (2) times a day Changed doxepin (doxepin 75 mg oral capsule) 1 cap by mouth Daily at bedtime Changed metoprolol (metoprolol tartrate 25 mg oral tablet) 0.5 tab(s) by mouth Two (2) times a day Changed multivitamin with minerals (Centrum Silver oral tablet) 1 tab(s) by mouth Once a day Unchanged clonazePAM (KlonoPIN 0.5 mg oral tablet) 1 tab(s) by mouth Two (2) times a day as needed for Anxiety Unchanged ferrous sulfate (ferrous sulfate 325 mg (65 mg elemental iron) oral tablet) 1 tab(s) by mouth Two (2) times a day Unchanged finasteride (Proscar 5 mg oral tablet) 1 tab(s) by mouth Once a day Unchanged furosemide (furosemide 40 mg oral tablet) 1 tab(s) by mouth Two (2) times a day Unchanged mirtazapine (Remeron 30 mg oral tablet) 1 tab(s) by mouth Daily at bedtime Unchanged tamsulosin (Flomax 0.4 mg oral capsule) 2 cap by mouth Once a day (in the evening) What How Much When Comments Stop Taking amLODIPine (amLODIPine 10 mg oral tablet) 1 tab(s) by mouth Once a day Stop Taking apixaban (Eliquis 2.5 mg oral tablet) 1 tab(s) by mouth Two (2) times a day Stop Taking insulin lispro-insulin lispro protamine (Humalog Mix) (HumaLOG Mix 50/ 50 KwikPen 3 mL PEN) 28 unit(s) Subcutaneous Two (2) times daily before meals Stop Taking lisinopril (Zestril 20 mg oral tablet) 1 tab(s) by mouth Two (2) times a day Stop Taking potassium chloride (Potassium Chloride (Eqv-K-Tab) 10 mEq oral tablet, extended release) 2 tab(s) by mouth Once a day before a meal Please take this list to your next doctor s visit. Bring all medications you take, including over the counter medications, herbals and other supplements with you to your doctor s visit. Patients and families are reminded to discard old lists and to update any records with all medication providers or retail pharmacies. Education Materials Acute Urinary Retention, Male Acute urinary retention is a condition in which a person is unable to pass urine. This can last for a short time or for a long time. If left untreated, it can result in kidney damage or other serious complications. What are the causes? This condition may be caused by: Obstruction or narrowing of the tube that drains the bladder (urethra). This may be caused by surgery or problems with nearby organs, such as the prostate gland, which can press or squeeze the urethra. Problems with the nerves in the bladder. These can be caused by diseases, such as multiple sclerosis, or by spinal cord injuries. Certain medicines. Tumors in the area of the pelvis, bladder, or urethra. Diabetes. Degenerative cognitive conditions such as delirium or dementia. Bladder or urinary tract infection. Constipation. Blood in the urine (hematuria). Injury to the bladder or urethra. Psychological (psychogenic) conditions. Someone may hold his urine due to trauma or because he does not want to use the bathroom. What increases the risk? This condition is more likely to develop in older men. As men age, their prostate may become larger and may start pressing or squeezing on the bladder or the urethra. What are the signs or symptoms? Symptoms of this condition include: Trouble urinating. Pain in the lower abdomen. Symptoms usually come on slowly over a long period of time. How is this diagnosed? This condition is diagnosed based on a physical exam and a medical history. You may also have other tests, including: An ultrasound of the bladder or kidneys or both. Blood tests. A urine analysis. Additional tests may be needed such as an MRI, kidney, or bladder function tests. How is this treated? Treatment for this condition may include: Medicines. Placing a thin, sterile tube (catheter) into the bladder to drain urine out of the body. This is called an indwelling urinary catheter. After being inserted, the catheter is held in place with a small balloon that is filled with sterile water. Urine drains from the catheter into a collection bag outside of the body. Behavioral therapy. Treatment for any underlying conditions. If needed, you may be treated in the hospital for kidney function problems or to manage other complications. Follow these instructions at home: Take qgwa-jjx-[id number] and prescription medicines only as told by your health care provider. Avoid certain medicines, such as decongestants, antihistamines, and some prescription medicines. Do not take any medicine unless your health care provider has approved. If you were given an indwelling urinary catheter, take care of it as told by your health care provider. Drink enough fluid to keep your urine clear or pale yellow. If you were prescribed an antibiotic, take it as told by your health care provider. Do not stop taking the antibiotic even if you start to feel better. Do not use any products that contain nicotine or tobacco, such as cigarettes and e-cigarettes. If you need help quitting, ask your health care provider. Monitor any changes in your symptoms. Tell your health care provider about any changes. If instructed, monitor your blood pressure at home. Report changes as told by your health care provider. Keep all follow-up visits as told by your health care provider. This is important. Contact a health care provider if: You have uncomfortable bladder contractions that you cannot control (spasms) or you leak urine with the spasms. Get help right away if: You have chills or fever. You have blood in your urine. You have a catheter and: ? Your catheter stops draining urine. ? Your catheter falls out. Summary Acute urinary retention is a condition in which a person is unable to pass urine. If left untreated, it can result in kidney damage or other serious complications. The cause of this condition may include an enlarged prostate. As men age, their prostate gland may become larger and may start pressing or squeezing on the bladder or the urethra. Treatment for this condition may include medicines and placement of an indwelling urinary catheter. Monitor any changes in your symptoms. Tell your health care provider about any changes. This information is not intended to replace advice given to you by your health care provider. Make sure you discuss any questions you have with your health care provider. Document Released: 02/05/2002 Document Revised: 10/12/2018 Document Reviewed: 12/01/2017 [employer] Patient Education 2020 [employer]. Additional Information VACCINATE! IT SAVES LIVES! Members of the community who have not yet received the COVID-19 vaccine and would like to receive it can visit one of [facility] vaccine clinics. There are many vaccine clinic locations within the [facility]. For locations and available times, please visit https://gettheshot.coronavirus.[place].gov/. It is important to note that some COVID mobile vaccine clinics are held outdoors and may be canceled in rainy or stormy conditions. To learn more about pediatric vaccinations (ages 5-11), we invite you to visit the [facility] webpage. [email or web address].[email or web address].[email or web address]/pa [email or web address]-Pcsas-Xydejlxbxac-Freque [email or web address]-Bskop-Xqodqlyyq.html To learn more about the COVID-19 vaccine, we invite you to visit the CDC website for a list of frequently asked questions.https://www.cdc.gov/cor on-ncov/vaccines/faq.h tml [facility] Patient Portal Access Instructions: Stay connected with your healthcare team and access your personal medical information anytime with the [facility] Patient Portal. Please follow the directions below to create your [facility] account: 1.Access the email account you provided upon registration to the hospital/physician office.2.Look for an invitation email from [facility].3.Open the email and access the invitation link: Accept Invitation to [facility] system.4.Fill in the required amanda to create your account. To access your account, visit [employer]. Click the blue button labeled "Access Patient Portal" and then log in with the username and password that you created in the steps above. You will be able to view your test results, lab results, a summary of your visits, upcoming appointments and more. There is also a convenient messaging option where you can send secure messages to your provider. In addition, you will have the ability to download any documents or summaries to your computer and/or send the information securely to a physician. Remember that your healthcare information is confidential, so carefully consider who you will allow to register on the [facility] Patient Portal for access to your information. You can also access the [facility] Patient Portal on the [facility]ica. Simply click on "Patient Portal" and then log into your account. If you would like to receive a full copy of your medical records, please contact the [facility] Medical Records Department by calling [phone], Monday through Monday between 8 a.m. and 4:30 p.m. HOW TO SAFELY DISPOSE OF PRESCRIPTION MEDICATIONS Please use one of the following methods to safely dispose of your unused medications. 1.Use a drug disposal kit: the drug disposal pouch allows you to safely discard your old and unused drugs. Ask your nurse to give you one when you are discharged.2.Visit a local take-back location: Many local pharmacies and police departments have programs that collect old and unwanted prescription drugs. Call your local pharmacy or go to http://[employer].Audit Verify/6H0Aa8w to find one close to you.3.Make use of household items: Use cat litter or old coffee grounds to dispose medications if other options are not available. Mix your drugs with these household products, seal them in an airtight container and throw it into the garbage. Call [facility]: [phone] to be sure your drugs can be disposed of in this way. Some medicines may require a different approach.4.Never flush your medications down the toilet. IF YOU HAVE BEEN PRESCRIBED AN OPIOID FOR PAIN If you have been prescribed an opioid (such as hydrocodone, oxycodone or morphine), it is critical to understand the possible side effects and risks of opioid pain medications. Even when taken as directed, opioids can have several side effects including: Tolerance, meaning you might need to take more of a medication for the same pain relief. Nausea, vomiting and/or constipation. Sleepiness, dizziness, dry mouth, confusion, depression or itching. Physical dependence, meaning you have withdrawal symptoms when a medication is stopped, can develop within a few days. KNOW YOUR RESPONSIBILITIES It is important to know exactly how much and how often to take the opioid pain medications you are prescribed. Never take opioids in higher amounts or more often than prescribed. Do not combine opioids with alcohol or other drugs that cause drowsiness, such as benzodiazepines, also known as benzos, including diazepam and alprazolam, muscle relaxants or sleep aids. Never sell or share prescription opioids. This is illegal. Store opioids in a secure place and out of reach of others (including children, family, friends and visitors). The last page of this document has been signed and retained as a CHART COPY. Signatures Patient Education Materials Acute Urinary Retention, Male Medication Leaflets My discharge plan and instructions have been reviewed and explained to me and ISTEPHANE WILLIAM E understand my current condition and have read and understand these discharge instructions. I have received a written copy of the plan/instructions. If I have questions, I am aware that I should contact my doctor. Patient/Labor Relations Consultant Signature: Date/Time: Relationship to Patient: ____ Witness Name/Signature: Date/Time: [facility] 11-01-2024 Note Date of Service 11/01/2024 Reason for Consultation Admission From: Home Follow up visit. Skin Team Findings Vitals and Measurements T: 36.7 C (Oral) TMIN: 36.7 C (Oral) TMAX: 36.9 C (Oral) HR: 64 (Apical) RR: 18 BP: 126/59 SpO2: 94% Pressure Area Details ------Pressure Area------ Coccyx stage 1 resolved area is pink and blanching Assessments and Recommendations ------Assessments------ Current Skin/Wound Interventions: Hospital bed, Physical Therapy, Occupational Therapy, Turn and reposition every 2 hours, Other: up in chair ------Recommendations------ Recommended Skin/Wound Interventions: Seat cushion, Turn and position system, Transparent silicone dressing, Turn and reposition every 2 hours, Other: float heels off mattress with pillow Education Prevention interventions Problem List/Past Medical History Ongoing Gross hematuria Urinary retention Digitally Signed by Qi Reid RN, Skin Team on 11/01/2024 09:46 AM [facility] 10-31-2024 Discharge summary Date of Service 10/31/2024 Discharge Diagnosis 10/31 Hospital Course 89-year-old male with medical history significant for paroxysmal atrial fibrillation on chronic Eliquis therapy, congestive heart failure, CAD status post CABG CKD stage III. Patient presents to the hospital with complaints of shortness of breath. Patient was recently in the hospital and discharged on 10/13 for CHF exacerbation. Patient had imaging performed which showed loculated pleural effusion patient seen by pulmonary ordered for chest tube placement. Currently awaiting on results of thoracentesis/chest tube. Pleural fluid sent to lab. Appears transudative. Patient seen by cardiothoracic surgery and pulmonary planning repeat imaging on 10/25. Patient did have adjustment of suction to 30 by cardiothoracic. Patient still having high output through chest tube once output decreases to 200 cc/day recommended by pulmonary for removal. Patient seen by urology greatly appreciate their assistance patient did have irrigations this is improved output. Patient can follow-up with urology as an outpatient. Hematuria has resolved on 10/26 on 10/26 Patient with clear urine anticoagulation had been held since initial presentation for possible necessitation of procedure. initiate heparin gtt incase patient has further hematuria. today with close monitoring of hemoglobin and of hematuria. On 10/27 unfortunately did develop hematuria. The pt had claring urin gradually, until today. Will repeat another Hg today to ensure stability, then can go to [facility] Consults Consult to Physician - Ordered -- 10/19/24 10:56:00 BERNABE, DAYRON QUIÑONES MD, Routine, Bilateral Loculated pleural effusions with hypoxia. Consult to Physician - Ordered -- 10/20/24 17:08:00 BERNABE, CARLOS KING MD, Routine, loculated effusion Consult to Physician - Ordered -- 10/21/24 19:11:00 BERNABE, LORNA BENZ MD, Routine, hematuria, urinary retention Consult to Physician - Ordered -- 10/23/24 15:52:00 JACOB KIDD BALDEV S MD, Routine, loculated pleural effusion Physical Exam Vitals and Measurements T: 36.6 C (Oral) TMIN: 36.6 C (Oral) TMAX: 37.0 C (Oral) HR: 66 (Apical) RR: 18 BP: 120/59 SpO2: 97% Weight Dosing Weight: 88.6 kg (10/19/24) Lungs: clear to auscultation, good air entry breath sounds in all lung amanda chest tube is in place. Cardiac: Normal S1 normal S2, mild early systolic murmur at the aortic area 2/6, no gallops Abdomen: soft, non distended nontender. Hematuria present. Small clots. Patient however still draining good urine Extremities: No edema, No cyanosis or clubbing FREIGHT CONDUCTOR: Alert, No focal deficits identified. Alert and orient x 3 Code Status Code Status - Ordered -- 10/19/24 10:56:00 EST, Full Code, Constant Order Discharge Date 10/31 Medications New Prescription [id number] Milligram by mouth every six (6) hours WHILE AWAKE as needed Pain, scale 1-10. docusate-senna (Senokot S)1 tab(s) by mouth two (2) times a day. Changed atorvastatin (Lipitor 40 mg oral tablet)1 tab(s) by mouth daily at bedtime. busPIRone (busPIRone 15 mg oral tablet)1 tab(s) by mouth two (2) times a day. doxepin (doxepin 75 mg oral capsule)1 cap by mouth daily at bedtime. metoprolol (metoprolol tartrate 25 mg oral tablet)0.5 tab(s) by mouth two (2) times a day. multivitamin with minerals (Centrum Silver oral tablet)1 tab(s) by mouth once a day. Unchanged clonazePAM (KlonoPIN 0.5 mg oral tablet)1 tab(s) by mouth two (2) times a day as needed Anxiety. ferrous sulfate (ferrous sulfate 325 mg (65 mg elemental iron) oral tablet)1 tab(s) by mouth two (2) times a day. finasteride (Proscar 5 mg oral tablet)1 tab(s) by mouth once a day. furosemide (furosemide 40 mg oral tablet)1 tab(s) by mouth two (2) times a day. mirtazapine (Remeron 30 mg oral tablet)1 tab(s) by mouth daily at bedtime. tamsulosin (Flomax 0.4 mg oral capsule)2 cap by mouth once a day (in the evening). Discontinued amLODIPine (amLODIPine 10 mg oral tablet)1 tab(s) by mouth once a day. apixaban (Eliquis 2.5 mg oral tablet)1 tab(s) by mouth two (2) times a day. Refills: 3. insulin lispro-insulin lispro protamine (Humalog Mix) (HumaLOG Mix 50/50 KwikPen 3 mL PEN)28 unit(s) Subcutaneous two (2) times daily before meals. lisinopril (Zestril 20 mg oral tablet)1 tab(s) by mouth two (2) times a day. potassium chloride (Potassium Chloride (Eqv-K-Tab) 10 mEq oral tablet, extended release)2 tab(s) by mouth once a day before a meal. Follow Up Labs/Studies Discharge Labs No Follow-up Labs Discharge Studies No Follow-up Studies Discharge Diet Discharge Diet - Ordered -- Type of Diet: Regular, 10/31/24 13:45:00 EST Discharge Activity Discharge Activity - Ordered -- NO activity restrictions, 10/31/24 13:45:00 EST Condition on Discharge Stable Discharge Disposition ERLIN Time Spent 50 min Digitally Signed by SARA LEMUS MD on 10/31/2024 01:49 PM [facility] 10-30-2024 Note Date of Service 10/30 Chief Complaint 89-year-old male with medical history significant for paroxysmal atrial fibrillation on chronic Eliquis therapy, congestive heart failure, CAD status post CABG CKD stage III. Patient presents to the hospital with complaints of shortness of breath. Patient was recently in the hospital and discharged on 10/13 for CHF exacerbation. Patient had imaging performed which showed loculated pleural effusion patient seen by pulmonary ordered for chest tube placement. Currently awaiting on results of thoracentesis/chest tube. Pleural fluid sent to lab. Appears transudative. Patient seen by cardiothoracic surgery and pulmonary planning repeat imaging on 10/25. Patient did have adjustment of suction to 30 by cardiothoracic. Patient still having high output through chest tube once output decreases to 200 cc/day recommended by pulmonary for removal. Patient seen by urology greatly appreciate their assistance patient did have irrigations this is improved output. Patient can follow-up with urology as an outpatient. Hematuria has resolved on 10/26 on 10/26 Patient with clear urine today anticoagulation had been held since initial presentation for possible necessitation of procedure. initiate heparin gtt incase patient has further hematuria. today with close monitoring of hemoglobin and of hematuria. Patient today on 10/27 unfortunately did develop hematuria. Will hold heparin GTT at this time. Reach out to urology currently undergoing irrigation. Patient hemoglobin has remained stable no need for transfusion goal will be keeping hemoglobin greater than 7. Patient has had decreased overall chest tube output in the last 24 hours could possibly have chest tube removal if output remains less than 200 today Subjective Pt seen and examined, no new cardiopulmonary complaint, thelma looking urine at the bag, no fever or chills Objective Vitals and Measurements T: 36.5 C (Oral) TMIN: 36.5 C (Oral) TMAX: 36.7 C (Oral) HR: 72 (Apical) RR: 20 BP: 102/50 SpO2: 95% Intake and Output 7AM Yesterday to 7AM Today Intake and Output (Last 24 hours) Intake Oral Intake 665.00 Supplement Intake 180.00 Output Urinary Catheter Output: 1900.00 Stool Count 3.00 Urine Count 2.00 Total Summary Total Intake 845.00 Total Output 1900.00 Fluid Balance -1055.00 Physical Exam Lungs: clear to auscultation, good air entry breath sounds in all lung amanda chest tube is in place. Cardiac: Normal S1 normal S2, mild early systolic murmur at the aortic area 2/6, no gallops Abdomen: soft, non distended nontender. Hematuria present. Small clots. Patient however still draining good urine Extremities: No edema, No cyanosis or clubbing FREIGHT CONDUCTOR: Alert, No focal deficits identified. Alert and orient x 3 Weight Dosing Weight: 88.6 kg (10/19/24) Medications Medications (19) Active Scheduled: (12) atorvastatin 40 mg tablet 40 mg 1 tab(s), Oral, Daily busPIRone 15 mg Tablet 15 mg 1 tab(s), Oral, BID docusate-senna (Senokot S) 50 mg-8.6 mg Tablet 1 tab(s), Oral, BID doxepin 75 mg Capsule 75 mg 1 cap(s), Oral, qHS ferrous sulfate 325 mg Tablet 325 mg 1 tab(s), Oral, BID finasteride 5 mg tablet 5 mg 1 tab(s), Oral, qDay furosemide 40 mg tablet 40 mg 1 tab(s), Oral, BID insulin lispro 100 units/mL Soln (3 mL) Give 0-5 units/dose, Subcutaneous, TIDAC metoprolol tartrate 12.5 mg (HALF-TAB) 12.5 mg 1 EA, Oral, BID mirtazapine 15 mg tablet 30 mg 2 tab(s), Oral, qHS polyethylene glycol 3350 - UD packet 17 gram(s) 15 mL, Oral, BID tamsulosin 0.4 mg Capsule 0.8 mg 2 cap(s), Oral, qPM Continuous: (0) PRN: (7) acetaminophen 325 mg Tablet 650 mg 2 tab(s), Oral, q6hWA clonazePAM 0.5 mg tablet 0.5 mg 1 tab(s), Oral, BID dextrose 50% Solution Disp syringe 50 mL 12.5 gram(s) 25 mL, IV Push, AsDirected HYDROmorphone 0.5 mg/0.5 mL syringe 0.5 mg 0.5 mL, IV Push, q4h melatonin 3 mg tablet 3 mg 1 tab(s), Oral, qHS melatonin 3 mg tablet 3 mg 1 tab(s), Oral, qHS ondansetron 2 mg/ 1 mL 2 mL INJ 4 mg 2 mL, IV Push, q4h Lab Results 10/30 08:22 Hgb: 10.4 L 10/29 18:06 Hgb: 10.4 L 10/29 08:00 WBC: 8.8 Hgb: 9.8 L Hct: 29.6 L Platelet: 228 Neutrophil %: 66.4 Glucose Level: 137 H Sodium Level: 135 L Potassium Level: 4.1 BUN: 17.0 Creatinine Lvl (s): 1.01 EKG No qualifying data available. Assessment/Plan Acute hypoxic respiratory failure Aortic stenosis S/P AVR 2019 Bilateral pleural effusion CKD (chronic kidney disease) stage 2, GFR 60-89 ml/min Coronary artery disease S/P CABG 2019 Diabetes Gross hematuria Heart failure with preserved ejection fraction Paroxysmal atrial fibrillation Urinary retention Orders: Vital Signs, 10/30/24 4:27:00 EST, q8hr *Acute hypoxemic respiratory failure due to fluid overload and pleural effusion *Bilateral pleural effusion, s/p chest tube removal on 10/28 *Gross hematuria with known BPH *HFpEF with mild acute on chronic decompensation, stable *BPH s/p Webster catheter insertion, will be dsicharged with the folye in *PAF, off anticoagulation due to above *Hyperlipidemia * s/p TAVR *CKD-II *DM-II, acceptable control --With persistnet thelma looking urine, will keep holding Apixaban and monitor CBC in AM --continue Flomax --Continue with Lipitor --Continue furosemide 40 mg p.o. twice a day --Cont all other treatment --Pt will be dc'ed home with the folye likely in 24 hours Anticipated Date of Discharge 24 hours Time Spent 35 min Digitally Signed by SARA LEMUS MD on 10/30/2024 12:24 PM [facility] 10-30-2024 Note . MICRO - Microbiology PROCEDURE: Culture Body Fluid with Gram Stain [*1] SOURCE: Body Fluid, BODY SITE: Miscellaneous COLLECTED DATE/TIME: 10/23/2024 11:24 EST RECEIVED DATE/TIME: 10/23/2024 12:38 EST START DATE/TIME: 10/23/2024 12:38 EST FREE TEXT SOURCE: pleural fluid left lung FINAL REPORTS Final Report [] Verified Date/Time/Personnel: 10/30/2024 07:22 EST No aerobes or anaerobes isolated at 7 days. PRELIMINARY REPORTS Preliminary Report [] Verified Date/Time/Personnel: 10/24/2024 09:49 EST No growth to date Preliminary Report [] Verified Date/Time/Personnel: 10/23/2024 13:59 EST Culture has been received in lab and is no growth to date. Routine cultures are held for 5 days. STAINS GS [] Verified Date/Time/Personnel: 10/23/2024 15:13 EST Sedimented 2+ Polymorphonuclear cells 1+ Mononuclear cells No organisms seen. Performing Locations *1: This test was performed at: [facility], [address] [place] [address], [id number] , [facility] 10-29-2024 Note Date of Service 10/29/2024 Chief Complaint 89-year-old male with medical history significant for paroxysmal atrial fibrillation on chronic Eliquis therapy, congestive heart failure, CAD status post CABG CKD stage III. Patient presents to the hospital with complaints of shortness of breath. Patient was recently in the hospital and discharged on 10/13 for CHF exacerbation. Patient had imaging performed which showed loculated pleural effusion patient seen by pulmonary ordered for chest tube placement. Currently awaiting on results of thoracentesis/chest tube. Pleural fluid sent to lab. Appears transudative. Patient seen by cardiothoracic surgery and pulmonary planning repeat imaging on 10/25. Patient did have adjustment of suction to 30 by cardiothoracic. Patient still having high output through chest tube once output decreases to 200 cc/day recommended by pulmonary for removal. Patient seen by urology greatly appreciate their assistance patient did have irrigations this is improved output. Patient can follow-up with urology as an outpatient. Hematuria has resolved on 10/26 on 10/26 Patient with clear urine today anticoagulation had been held since initial presentation for possible necessitation of procedure. initiate heparin gtt incase patient has further hematuria. today with close monitoring of hemoglobin and of hematuria. Patient today on 10/27 unfortunately did develop hematuria. Will hold heparin GTT at this time. Reach out to urology currently undergoing irrigation. Patient hemoglobin has remained stable no need for transfusion goal will be keeping hemoglobin greater than 7. Patient has had decreased overall chest tube output in the last 24 hours could possibly have chest tube removal if output remains less than 200 today Subjective 10/28 Patient seen and examined reviewed his condition discussed the case with the healthcare team, the patient denied any active chest pain. Having still gross hematuria, chest tube is in place. Minimal drainage noted. 10/29 Patient seen and examined, no new events, no bleeding episodes, no fever or chills, chest tube is out Objective Vitals and Measurements T: 36.7 C (Oral) TMIN: 36.6 C (Oral) TMAX: 37.2 C (Oral) HR: 65 RR: 18 BP: 107/55 SpO2: 99% Intake and Output 7AM Yesterday to 7AM Today Intake and Output (Last 24 hours) Intake Oral Intake 635.00 Output Urinary Catheter Output: 2600.00 Stool Count 3.00 Total Summary Total Intake 635.00 Total Output 2600.00 Fluid Balance -1965.00 Physical Exam Lungs: clear to auscultation, good air entry breath sounds in all lung amanda chest tube is in place. Cardiac: Normal S1 normal S2, mild early systolic murmur at the aortic area 2/6, no gallops Abdomen: soft, non distended nontender. Hematuria present. Small clots. Patient however still draining good urine Extremities: No edema, No cyanosis or clubbing FREIGHT CONDUCTOR: Alert, No focal deficits identified. Alert and orient x 3 Weight Dosing Weight: 88.6 kg (10/19/24) Medications Medications (19) Active Scheduled: (12) atorvastatin 40 mg tablet 40 mg 1 tab(s), Oral, Daily busPIRone 15 mg Tablet 15 mg 1 tab(s), Oral, BID docusate-senna (Senokot S) 50 mg-8.6 mg Tablet 1 tab(s), Oral, BID doxepin 75 mg Capsule 75 mg 1 cap(s), Oral, qHS ferrous sulfate 325 mg Tablet 325 mg 1 tab(s), Oral, BID finasteride 5 mg tablet 5 mg 1 tab(s), Oral, qDay furosemide 40 mg tablet 40 mg 1 tab(s), Oral, BID insulin lispro 100 units/mL Soln (3 mL) Give 0-5 units/dose, Subcutaneous, TIDAC metoprolol tartrate 12.5 mg (HALF-TAB) 12.5 mg 1 EA, Oral, BID mirtazapine 15 mg tablet 30 mg 2 tab(s), Oral, qHS polyethylene glycol 3350 - UD packet 17 gram(s) 15 mL, Oral, BID tamsulosin 0.4 mg Capsule 0.8 mg 2 cap(s), Oral, qPM Continuous: (0) PRN: (7) acetaminophen 325 mg Tablet 650 mg 2 tab(s), Oral, q6hWA clonazePAM 0.5 mg tablet 0.5 mg 1 tab(s), Oral, BID dextrose 50% Solution Disp syringe 50 mL 12.5 gram(s) 25 mL, IV Push, AsDirected HYDROmorphone 0.5 mg/0.5 mL syringe 0.5 mg 0.5 mL, IV Push, q4h melatonin 3 mg tablet 3 mg 1 tab(s), Oral, qHS melatonin 3 mg tablet 3 mg 1 tab(s), Oral, qHS ondansetron 2 mg/ 1 mL 2 mL INJ 4 mg 2 mL, IV Push, q4h Lab Results 10/29 08:00 WBC: 8.8 Hgb: 9.8 L Hct: 29.6 L Platelet: 228 Neutrophil %: 66.4 Glucose Level: 137 H Sodium Level: 135 L Potassium Level: 4.1 BUN: 17.0 Creatinine Lvl (s): 1.01 10/28 18:26 Hgb: 10.0 L 10/28 06:51 WBC: 10.7 Hgb: 9.4 L Hct: 27.4 L Platelet: 224 Neutrophil %: 75.2 H Glucose Level: 114 Sodium Level: 136 Potassium Level: 3.8 BUN: 15.0 Creatinine Lvl (s): 1.02 EKG No qualifying data available. Assessment/Plan Acute hypoxic respiratory failure Aortic stenosis S/P AVR 2019 Bilateral pleural effusion CKD (chronic kidney disease) stage 2, GFR 60-89 ml/min Coronary artery disease S/P CABG 2019 Diabetes Gross hematuria Heart failure with preserved ejection fraction Paroxysmal atrial fibrillation Urinary retention Orders: Hemoglobin, 10/28/24 18:00:00 EST, Timed Study (collect at specified time), Blood, q12hr, for 2 day(s), Stop date 10/30/24 6:00:00 EST *Acute hypoxemic respiratory failure due to fluid overload and pleural effusion *Bilateral pleural effusion, s/p chest tube removal on 10/28 *Gross hematuria with known BPH *HFpEF with mild acute on chronic decompensation, stable *BPH s/p Webster catheter insertion *PAF, off anticoagulation due to above *Hyperlipidemia --If hematuria resolved in 24 hours will dc webster and restart apixaban --continue Flomax --Continue with Lipitor --Continue furosemide 40 mg p.o. twice a day --Further management to follow Anticipated Date of Discharge 24 hours Time Spent 35 min Digitally Signed by SARA LEMUS MD on 10/29/2024 03:46 PM [facility] 10-28-2024 Note Date of Service 10/28/2024 Chief Complaint 89-year-old male with medical history significant for paroxysmal atrial fibrillation on chronic Eliquis therapy, congestive heart failure, CAD status post CABG CKD stage III. Patient presents to the hospital with complaints of shortness of breath. Patient was recently in the hospital and discharged on 10/13 for CHF exacerbation. Patient had imaging performed which showed loculated pleural effusion patient seen by pulmonary ordered for chest tube placement. Currently awaiting on results of thoracentesis/chest tube. Pleural fluid sent to lab. Appears transudative. Patient seen by cardiothoracic surgery and pulmonary planning repeat imaging on 10/25. Patient did have adjustment of suction to 30 by cardiothoracic. Patient still having high output through chest tube once output decreases to 200 cc/day recommended by pulmonary for removal. Patient seen by urology greatly appreciate their assistance patient did have irrigations this is improved output. Patient can follow-up with urology as an outpatient. Hematuria has resolved on 10/26 on 10/26 Patient with clear urine today anticoagulation had been held since initial presentation for possible necessitation of procedure. initiate heparin gtt incase patient has further hematuria. today with close monitoring of hemoglobin and of hematuria. Patient today on 10/27 unfortunately did develop hematuria. Will hold heparin GTT at this time. Reach out to urology currently undergoing irrigation. Patient hemoglobin has remained stable no need for transfusion goal will be keeping hemoglobin greater than 7. Patient has had decreased overall chest tube output in the last 24 hours could possibly have chest tube removal if output remains less than 200 today. Subjective 10/28 Patient seen and examined reviewed his condition discussed the case with the healthcare team, the patient denied any active chest pain. Having still gross hematuria, chest tube is in place. Minimal drainage noted. Objective Vitals and Measurements T: 37.1 C (Oral) TMIN: 36.2 C (Oral) TMAX: 37.1 C (Oral) HR: 65 RR: 16 BP: 109/47 SpO2: 99% Intake and Output 7AM Yesterday to 7AM Today Intake and Output (Last 24 hours) Intake Oral Intake 690.00 Output Chest Tube Output: 30.00 Urinary Catheter Output: 1250.00 Stool Count 2.00 Total Summary Total Intake 690.00 Total Output 1280.00 Fluid Balance -590.00 Physical Exam Lungs: clear to auscultation, good air entry breath sounds in all lung amanda chest tube is in place. Cardiac: Normal S1 normal S2, mild early systolic murmur at the aortic area 2/6, no gallops Abdomen: soft, non distended nontender. Hematuria present. Small clots. Patient however still draining good urine Extremities: No edema, No cyanosis or clubbing FREIGHT CONDUCTOR: Alert, No focal deficits identified. Alert and orient x 3 Weight Dosing Weight: 88.6 kg (10/19/24) Medications Medications (19) Active Scheduled: (12) atorvastatin 40 mg tablet 40 mg 1 tab(s), Oral, Daily busPIRone 15 mg Tablet 15 mg 1 tab(s), Oral, BID docusate-senna (Senokot S) 50 mg-8.6 mg Tablet 1 tab(s), Oral, BID doxepin 75 mg Capsule 75 mg 1 cap(s), Oral, qHS ferrous sulfate 325 mg Tablet 325 mg 1 tab(s), Oral, BID finasteride 5 mg tablet 5 mg 1 tab(s), Oral, qDay furosemide 40 mg tablet 40 mg 1 tab(s), Oral, BID insulin lispro 100 units/mL Soln (3 mL) Give 0-5 units/dose, Subcutaneous, TIDAC metoprolol tartrate 12.5 mg (HALF-TAB) 12.5 mg 1 EA, Oral, BID mirtazapine 15 mg tablet 30 mg 2 tab(s), Oral, qHS polyethylene glycol 3350 - UD packet 17 gram(s) 15 mL, Oral, BID tamsulosin 0.4 mg Capsule 0.8 mg 2 cap(s), Oral, qPM Continuous: (0) PRN: (7) acetaminophen 325 mg Tablet 650 mg 2 tab(s), Oral, q6hWA clonazePAM 0.5 mg tablet 0.5 mg 1 tab(s), Oral, BID dextrose 50% Solution Disp syringe 50 mL 12.5 gram(s) 25 mL, IV Push, AsDirected HYDROmorphone 0.5 mg/0.5 mL syringe 0.5 mg 0.5 mL, IV Push, q4h melatonin 3 mg tablet 3 mg 1 tab(s), Oral, qHS melatonin 3 mg tablet 3 mg 1 tab(s), Oral, qHS ondansetron 2 mg/ 1 mL 2 mL INJ 4 mg 2 mL, IV Push, q4h Lab Results 10/28 06:51 WBC: 10.7 Hgb: 9.4 L Hct: 27.4 L Platelet: 224 Neutrophil %: 75.2 H Glucose Level: 114 Sodium Level: 136 Potassium Level: 3.8 BUN: 15.0 Creatinine Lvl (s): 1.02 10/27 04:53 WBC: 7.7 Hgb: 10.8 L Hct: 31.8 L Platelet: 219 Neutrophil %: 67.7 Glucose Level: 113 Sodium Level: 139 Potassium Level: 3.9 BUN: 15.0 Creatinine Lvl (s): 0.94 Assessment/Plan Acute hypoxic respiratory failure Aortic stenosis S/P AVR 2019 Bilateral pleural effusion CKD (chronic kidney disease) stage 2, GFR 60-89 ml/min Coronary artery disease S/P CABG 2019 Diabetes Gross hematuria Heart failure with preserved ejection fraction Paroxysmal atrial fibrillation Urinary retention Orders: Basic Metabolic Panel(BMP), 10/29/24 5:00:00 EST, Next AM Draw (one day only), Blood, Once, Stop date 10/29/24 5:00:00 EST Complete Blood Count(CBC), 10/29/24 5:00:00 EST, Next AM Draw (one day only), Blood, Once, Stop date 10/29/24 5:00:00 EST Hemoglobin, 10/28/24 18:00:00 EST, Timed Study (collect at specified time), Blood, q12hr, for 2 day(s), Stop date 10/30/24 6:00:00 EST Specialty Bed & Equipment, 10/28/24 11:41:00 EST, Low air loss mattress (prevention), Constant order, Use guide and glide sheet with white wicking pad and turn wedges Transfer/Change in Level of Care, 10/28/24 14:44:00 EST, Level of Care: Regular floor, Medication Review: Provider to Review Medications *Acute hypoxemic respiratory failure due to fluid overload and pleural effusion *Bilateral pleural effusion, s/p chest tube placement on the left side *Gross hematuria with known BPH *HFpEF with mild acute on chronic decompensation, stable *BPH s/p Webster catheter insertion *PAF, off anticoagulation due to above *Hyperlipidemia -- Chest tube management per thoracic service, output has been minimal, hoping to DC chest tube soon --Serial H&H every 12 hours, DC aspirin --Keep off anticoagulation --continue Flomax --Continue with Lipitor --Continue furosemide 40 mg p.o. twice a day --Further management to follow Anticipated Date of Discharge 2 days Time Spent 50 min Digitally Signed by SARA LEMUS MD on 10/28/2024 04:47 PM [facility] 10-28-2024 Note Exam Date Time Procedure Performing Provider Status 10/28/24 1:50 PM XR Chest 1 View Auth (Ve rified) [id number] ORIGINAL EXAMINATION: ONE XRAY VIEW OF THE CHEST 10/28/2024 1:50 pm COMPARISON: Chest x-ray October 28, 2024 HISTORY: ORDERING SYSTEM PROVIDED HISTORY: Reason for Exam: ptx FINDINGS: Stable postsurgical changes. Mild rotation to the right. Cardiomediastinal silhouette is unchanged. Calcifications in the aortic arch. Central pulmonary vascular congestion with diffuse interstitial pattern. Bibasilar opacities with blunted costophrenic angles related to bilateral pleural effusions. Interval removal of left pleural pigtail catheter. No pneumothorax. No acute osseous abnormality. IMPRESSION: Interval removal of left pleural pigtail catheter without evidence of pneumothorax. There is residual small left pleural effusion with likely underlying left base atelectasis and or consolidation. Small right base effusion with likely underlying atelectasis and or consolidation. Unchanged interstitial prominence which may be related to edema versus a diffuse interstitial infectious or inflammatory process. Interpreted by: Dangelo Aviles Preliminary Report By: Reggie Vinson Electronically signed By Dangelo Aviles Dictated Date: 10/28/2024 1:51:38 PM Prelim Date: 10/28/2024 4:26:05 PM Sign Date: 10/28/2024 4:26:05 PM Ordering Provider: [facility]LA [facility]UE [id number] Note Date of Service 10/28/2024 Chief Complaint This is a 89-year-old male with past medical history significant for HFpEF, paroxysmal atrial fibrillation on Eliquis, diabetes, coronary artery disease S/P CABG 01/01/2019, aortic stenosis S/P A 01/01/2019VR, and CKD II. He was transferred from [facility] for shortness of breath with exertion.He was recently hospitalized for shortness of breath and treated for CHF exacerbation and possible pneumonia. He was diuresed and given azithromycin. Echocardiogram at that time showed an EF of 55%. He was discharged with orders for a 30-day monitor over concern for PVCs and bradycardia but has notyet received the monitor. At home, shortness of breath symptoms did not improve. He would check hisoxygenation after walking and SaO2 would be around 85%. CTA of the chest 10/18 showed scarring of the lung bases both bronchiectasis. Bibasilar dependent atelectasis. Bilateral pleural effusion with loculation in the right major fissure as well as posterior medial aspect of the left lower lobe. He currently is in no respiratory distress. O2 per NC at 2L with SAO2 93%. [1] 10/21/2024. Left chest tube placed per IR draining yellow serous transudative fluid. [1] Chest drainage monitored. 10/28/2024 chest tube drainage 60 cc per 24 hours. Chest tube discontinued Subjective No complaints Objective Vitals and Measurements T: 36.8 C (Oral) TMIN: 36.2 C (Oral) TMAX: 36.9 C (Oral) HR: 65 RR: 16 BP: 102/51 SpO2: 99% Intake and Output 7AM Yesterday to 7AM Today Intake and Output (Last 24 hours) Intake Oral Intake 1290.00 Administration Information 96.00 Output Chest Tube Output: 60.00 Urinary Catheter Output: 1550.00 Stool Count 1.00 Total Summary Total Intake 1386.00 Total Output 1610.00 Fluid Balance -224.00 Physical Exam Neurological: Alert and x 3 Lungs: Mild scattered rhonchi left chest tube discontinued Heart: Regular Abdomen: Soft positive bowel sounds Extremities: Well-perfused Webster catheter draining dark red Weight Dosing Weight: 88.6 kg (10/19/24) Medications Medications (20) Active Scheduled: (13) aspirin 81 mg EC 81 mg 1 tab(s), Oral, qDay atorvastatin 40 mg tablet 40 mg 1 tab(s), Oral, Daily busPIRone 15 mg Tablet 15 mg 1 tab(s), Oral, BID docusate-senna (Senokot S) 50 mg-8.6 mg Tablet 1 tab(s), Oral, BID doxepin 75 mg Capsule 75 mg 1 cap(s), Oral, qHS ferrous sulfate 325 mg Tablet 325 mg 1 tab(s), Oral, BID finasteride 5 mg tablet 5 mg 1 tab(s), Oral, qDay furosemide 40 mg tablet 40 mg 1 tab(s), Oral, BID insulin lispro 100 units/mL Soln (3 mL) Give 0-5 units/dose, Subcutaneous, TIDAC metoprolol tartrate 12.5 mg (HALF-TAB) 12.5 mg 1 EA, Oral, BID mirtazapine 15 mg tablet 30 mg 2 tab(s), Oral, qHS polyethylene glycol 3350 - UD packet 17 gram(s) 15 mL, Oral, BID tamsulosin 0.4 mg Capsule 0.8 mg 2 cap(s), Oral, qPM Continuous: (0) PRN: (7) acetaminophen 325 mg Tablet 650 mg 2 tab(s), Oral, q6hWA clonazePAM 0.5 mg tablet 0.5 mg 1 tab(s), Oral, BID dextrose 50% Solution Disp syringe 50 mL 12.5 gram(s) 25 mL, IV Push, AsDirected HYDROmorphone 0.5 mg/0.5 mL syringe 0.5 mg 0.5 mL, IV Push, q4h melatonin 3 mg tablet 3 mg 1 tab(s), Oral, qHS melatonin 3 mg tablet 3 mg 1 tab(s), Oral, qHS ondansetron 2 mg/ 1 mL 2 mL INJ 4 mg 2 mL, IV Push, q4h Lab Results 10/28 06:51 WBC: 10.7 Hgb: 9.4 L Hct: 27.4 L Platelet: 224 Neutrophil %: 75.2 H Glucose Level: 114 Sodium Level: 136 Potassium Level: 3.8 BUN: 15.0 Creatinine Lvl (s): 1.02 10/27 04:53 WBC: 7.7 Hgb: 10.8 L Hct: 31.8 L Platelet: 219 Neutrophil %: 67.7 Glucose Level: 113 Sodium Level: 139 Potassium Level: 3.9 BUN: 15.0 Creatinine Lvl (s): 0.94 Imaging Results and Diagnostics (10/28/2024 06:30 EST XR Chest 1 View) ORIGINAL EXAMINATION: ONE XRAY VIEW OF THE CHEST 10/28/2024 6:30 am COMPARISON: Chest x-ray on 10/27/2024 HISTORY: ORDERING SYSTEM PROVIDED HISTORY: Reason for Exam: chest tube, resolved pneumothorax, high chest tube output FINDINGS: Left basilar pleural pigtail drain is unchanged. The heart size is normal. Bilateral interstitial infiltrates are unchanged. There is small right pleural effusion. No significant left pleural fluid is present. There is no visible pneumothorax. IMPRESSION: 1. Unchanged bilateral interstitial infiltrates. 2. Small right pleural effusion. [2] Assessment/Plan 1. Bilateral pleural effusion Left chest tube drained 60 cc over last 24 hours. Chest x-ray reviewed with Dr. Quiñones. Chest tube discontinued. Repeat chest x-ray. CT surgery to sign off [1] Progress Note; SKYLA SUE 10/24/2024 14:38 EST [2] XR Chest 1 View; MANUEL BUENO MD 10/28/2024 06:30 EST Digitally Signed by SKYLA SUE on 10/28/2024 01:25 PM [id number] Note* Exam Date Time Procedure Performing Provider Status 10/28/24 6:30 AM XR Chest 1 View Auth (Ve rified) [id number] ORIGINAL EXAMINATION: ONE XRAY VIEW OF THE CHEST 10/28/2024 6:30 am COMPARISON: Chest x-ray on 10/27/2024 HISTORY: ORDERING SYSTEM PROVIDED HISTORY: Reason for Exam: chest tube, resolved pneumothorax, high chest tube output FINDINGS: Left basilar pleural pigtail drain is unchanged. The heart size is normal. Bilateral interstitial infiltrates are unchanged. There is small right pleural effusion. No significant left pleural fluid is present. There is no visible pneumothorax. IMPRESSION: 1. Unchanged bilateral interstitial infiltrates. 2. Small right pleural effusion. Interpreted by: Manuel Bueno MD Preliminary Report By: Manuel Bueno MD Electronically signed By Manuel Bueno MD Dictated Date: 10/28/2024 6:33:08 AM Prelim Date: 10/28/2024 6:35:22 AM Sign Date: 10/28/2024 6:35:22 AM Ordering Provider: MANSOOR HERNDON [id number] Nurse Progress note I read and agree with Marie BOOTH [employer] vital signs and nursing assessment. I was present for all care. Digitally Signed by Elise Molina Phys Therapist on 10/27/2024 02:07 PM [facility] [id number] Nurse Progress note I read and agree with Marie BOOTH [employer] vital signs and nursing assessment. I was present for all care. Digitally Signed by Elise Molina Phys Therapist on 10/27/2024 10:13 AM [facility] [id number] Note* Exam Date Time Procedure Performing Provider Status 10/27/24 7:11 AM XR Chest 1 View Auth (Ve rified) [id number] ORIGINAL EXAMINATION: ONE XRAY VIEW OF THE CHEST 10/27/2024 7:11 am COMPARISON: Chest x-ray on 10/25/2024 HISTORY: ORDERING SYSTEM PROVIDED HISTORY: Reason for Exam: pleural effusion FINDINGS: Pleural pigtail drain is unchanged at the left lung base. There is no pneumothorax. Small bilateral pleural effusions are unchanged. Widespread bilateral lung infiltrates are predominantly interstitial and appear unchanged. Heart size is normal. IMPRESSION: 1. Stable bilateral lung infiltrates and small bilateral pleural effusions. 2. No pneumothorax. Interpreted by: Manuel Bueno MD Preliminary Report By: Manuel Bueno MD Electronically signed By Manuel Bueno MD Dictated Date: 10/27/2024 7:40:19 AM Prelim Date: 10/27/2024 7:43:03 AM Sign Date: 10/27/2024 7:43:03 AM Ordering Provider: KARISSA SOTO [facility] [id number] Nurse Progress note Atrium level was at 190ml at 1945. No markings from dayshi on atrium. Unsure how to justify the 90ml charted at 1141 and then 190ml at 1548. Digitally Signed by Marcia Dial RN on 10/25/2024 10:28 PM [facility] [id number] Cardiothoracic surgery Consult note Date of Service 10/19/2024 Reason for Consultation Bilateral loculated pleural effusions with hypoxia Referring Physician Dr. Dowd History of Present Illness This is a 89-year-old male with past medical history significant for HFpEF, paroxysmal atrial fibrillation on Eliquis, diabetes, coronary artery disease S/P CABG 01/01/2019, aortic stenosis S/P A 01/01/2019VR, and CKD II. He was transferred from [facility] for shortness of breath with exertion. He was recently hospitalized for shortness of breath and treated for CHF exacerbation and possiblepneumonia. He was diuresed and given azithromycin. Echocardiogram at that time showed an EF of 55%.He was discharged with orders for a 30-day monitor over concern for PVCs and bradycardia but has not yet received the monitor. At home, shortness of breath symptoms did not improve. He would check his oxygenation after walking and SaO2 would be around 85%. CTA of the chest 10/18 showed scarring of the lung bases both bronchiectasis. Bibasilar dependent atelectasis. Bilateral pleural effusion with loculation in the right major fissure as well as posterior medial aspect of the left lower lobe. He currently is in no respiratory distress. O2 per NC at 2L with SAO2 93%. Have been consulted to evaluate his bilateral loculated pleural effusions with hypoxia Review of Systems Constitutional: Denies fever, chills, change in weight or appetite, or fatigue HEENT: Denies blurry vision, dysphagia, wears glasses, edentulous Respiratory: Denies productive or nonproductive cough see HPI CV: Denies chest pain, syncope, PND, or orthopnea Vascular: Denies claudication, DVT, rest pain GI: Denies nausea, vomiting, constipation, diarrhea, or melena : Denies dysuria, nocturia, hematuria, frequency or incontinence Neuro: Denies weakness, seizures, tremors, memory loss or change in level consciousness Endo: Denies heat/cold intolerance, denies polyuria, polydipsia, polyphagia Chemo/oncology: Denies unusual bleeding bruising or anemia Muscular/skeletal: Denies arthralgia, back pain, myalgia or limited motion, uses a walker when awayfrom his house Psych: Denies anxiousness nervousness or depression Physical Exam Vitals and Measurements T: 37.0 C (Oral) HR: 87 (Monitored) RR: 18 BP: 135/63 SpO2: 93% HT: 172.7 cm WT: 88.6 kg BMI: 29.71 Weight Dosing Weight: 88.6 kg (10/19/24) Mentation: Alert and oriented x 4, appropriate HEENT: Atraumatic, normocephalic, PERRLA Heart: Irregular S1-S2, monitor atrial fibrillation Lungs: Bilateral, clear, respirations easy regular nonlabored, diminished in the bases, denies cough, O2 at 2 L per nasal cannula Abdomen: Soft, nontender, bowel sounds present Extremities: Bilateral mild lower leg edema left greater than the right, normal capillary refill, pulses +1/x 4 Skin: Right leg has old areas that are healed, skin very scaly Neuro: Cranial nerves II through XII intact Lab Results 10/19 14:27 WBC: 11.0 H Hgb: 13.3 Hct: 39.5 L Platelet: 169 Neutrophil %: 81.3 H Glucose Level: 165 H Sodium Level: 133 L Potassium Level: 4.1 BUN: 16.0 Creatinine Lvl (s): 0.83 Imaging Results and Diagnostics CTA-No images Available here just written report on chart Assessment/Plan 1. Acute hypoxic respiratory failure 2. Paroxysmal atrial fibrillation Trev is currently on home 3. Heart failure with preserved ejection fraction 4. Diabetes 5. Coronary artery disease S/P CABG 2018 6. Aortic stenosis S/P AVR 2018 7. CKD (chronic kidney disease) stage 2, GFR 60-89 ml/min Surgical evaluation We will continue to follow Procedure/Surgical History CABG x 2 - Coronary artery bypass grafts x 2: 01/01/19 AVR - Aortic valve replacement: 01/01/19 Cardiac catheterization: 2018 Ankle fracture: 1993 Cataract extraction Medications Inpatient acetaminophen, 650 mg= 2 tab(s), Oral, q6hWA, PRN amiodarone, 400 mg= 2 tab(s), Oral, BID aspirin 81 mg oral delayed release tablet, 81 mg= 1 tab(s), Oral, qDay busPIRone, 10 mg= 1 tab(s), Oral, BID Dextrose 50% IV Push, 12.5 gram(s)= 25 mL, IV Push, AsDirected, PRN doxepin 100 mg oral capsule, 100 mg= 1 cap(s), Oral, qHS fenofibrate 160 mg oral tablet, 160 mg= 1 tab(s), Oral, qDayM glipiZIDE 5 mg oral tablet, 10 mg= 2 tab(s), Oral, qAM HumaLOG 100 units/mL subcutaneous solution, Give 0-5 units/dose, Subcutaneous, TIDAC Lipitor, 40 mg= 1 tab(s), Oral, Daily melatonin, 3 mg= 1 tab(s), Oral, qHS, PRN melatonin, 3 mg= 1 tab(s), Oral, qHS, PRN metoprolol tartrate 25 mg oral tablet, 25 mg= 1 tab(s), Oral, BIDM traZODone, 100 mg= 1 tab(s), Oral, qHS Zofran, 4 mg= 2 mL, IV Push, q4h, PRN Home amiodarone 400 mg oral tablet, 400 mg= 1 tab(s), Oral, BID aspirin 81 mg oral delayed release tablet, 81 mg= 1 tab(s), Oral, qDay busPIRone 10 mg oral tablet, 10 mg= 1 tab(s), Oral, BID doxepin 100 mg oral capsule, 100 mg= 1 cap(s), Oral, qHS Eliquis 2.5 mg oral tablet, 2.5 mg= 1 tab(s), Oral, BID, 3 refills fenofibrate 160 mg oral tablet, 160 mg= 1 tab(s), Oral, qDayM glipiZIDE 10 mg oral tablet, 10 mg= 1 tab(s), Oral, qAM Lipitor 40 mg oral tablet, 40 mg= 1 tab(s), Oral, Daily, 3 refills metoprolol tartrate 25 mg oral tablet, 25 mg= 1 tab(s), Oral, BIDM, 3 refills PreserVision, 1 tab(s), Oral, BID traZODone 100 mg oral tablet, 100 mg= 1 tab(s), Oral, qHS Tylenol 325 mg oral capsule, 650 mg, Oral, QID Allergies NKA Social History Quit smoking cigars 20 years ago Denies alcohol usage Denies drug usage 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 HTN - Hypertension: Brother and Daughter. Stroke: Mother and Father. Health Status Family Member(s) Immunizations No qualifying data available. This encounter independently took approximately 45 minutes obtaining past medical history in the EMR, reviewing recent labs and tests, conducting face to face visit and examination with patient at the bedside, and documenting details of today's visit. Digitally Signed by CRYSTAL VERGARA on 10/19/2024 04:35 PM [id number] Urology Progress note Date of Service October 25, 2024 Chief Complaint Gross hematuria Subjective Patient is that his respiratory situation has improved. He continues to have gross hematuria. Yesterday I recommended that nursing staff hand irrigate the catheter. He says that this has been helpful. Objective Vitals and Measurements T: 36.6 C (Oral) TMIN: 36.6 C (Oral) TMAX: 36.7 C (Oral) HR: 72 (Apical) RR: 16 BP: 121/66 SpO2: 96% Intake and Output 7AM Yesterday to 7AM Today Intake and Output (Last 24 hours) Intake Oral Intake 410.00 Output Chest Tube Output: 300.00 Urinary Catheter Output: 4400.00 Stool Count 0.00 Total Summary Total Intake 410.00 Total Output 4700.00 Fluid Balance -4290.00 Physical Exam General Appearance: NAD, lying in bed Head: normocephalic EENT: normal Lungs: unlabored breathing Abdomen: NTTP, soft Webster catheter is intact with mild gross hematuria Musculoskeletal: normal Extremities: normal Neurological: nonfocal Skin: normal Psychiatric: normal affect Weight Dosing Weight: 88.6 kg (10/19/24) Medications Medications (18) Active Scheduled: (11) aspirin 81 mg EC 81 mg 1 tab(s), Oral, qDay atorvastatin 40 mg tablet 40 mg 1 tab(s), Oral, Daily busPIRone 15 mg Tablet 15 mg 1 tab(s), Oral, BID doxepin 75 mg Capsule 75 mg 1 cap(s), Oral, qHS ferrous sulfate 325 mg Tablet 325 mg 1 tab(s), Oral, BID finasteride 5 mg tablet 5 mg 1 tab(s), Oral, qDay furosemide 40 mg tablet 40 mg 1 tab(s), Oral, BID insulin lispro 100 units/mL Soln (3 mL) Give 0-5 units/dose, Subcutaneous, TIDAC metoprolol tartrate 12.5 mg (HALF-TAB) 12.5 mg 1 EA, Oral, BID mirtazapine 15 mg tablet 30 mg 2 tab(s), Oral, qHS tamsulosin 0.4 mg Capsule 0.8 mg 2 cap(s), Oral, qPM Continuous: (0) PRN: (7) acetaminophen 325 mg Tablet 650 mg 2 tab(s), Oral, q6hWA clonazePAM 0.5 mg tablet 0.5 mg 1 tab(s), Oral, BID dextrose 50% Solution Disp syringe 50 mL 12.5 gram(s) 25 mL, IV Push, AsDirected HYDROmorphone 0.5 mg/0.5 mL syringe 0.5 mg 0.5 mL, IV Push, q4h melatonin 3 mg tablet 3 mg 1 tab(s), Oral, qHS melatonin 3 mg tablet 3 mg 1 tab(s), Oral, qHS ondansetron 2 mg/ 1 mL 2 mL INJ 4 mg 2 mL, IV Push, q4h Lab Results 10/25 07:00 WBC: 9.5 Hgb: 11.5 L Hct: 33.8 L Platelet: 199 Neutrophil %: 76.7 H Glucose Level: 117 H Sodium Level: 137 Potassium Level: 3.8 BUN: 17.0 Creatinine Lvl (s): 0.99 10/24 06:57 WBC: 8.2 Hgb: 10.9 L Hct: 32.2 L Platelet: 171 Neutrophil %: 73.6 Glucose Level: 99 Sodium Level: 135 L Potassium Level: 4.0 BUN: 17.0 Creatinine Lvl (s): 0.96 EKG No qualifying data available. Assessment/Plan Acute hypoxic respiratory failure Aortic stenosis S/P AVR 2019 Bilateral pleural effusion CKD (chronic kidney disease) stage 2, GFR 60-89 ml/min Coronary artery disease S/P CABG 2019 Diabetes Gross hematuria Heart failure with preserved ejection fraction Paroxysmal atrial fibrillation Urinary retention Orders: Communication Order (continuous), 10/24/24 15:36:00 EST, irrigate webster with piston syringe every 4-6 with 200cc of sterile water, Constant order 89-year-old male with gross hematuria after catheter placement and replacement by urology, by Dr. Benz. I hand irrigated the catheter with approximately 500 cc of sterile water and got minimal clots and minimal blood. The gross hematuria is improving and will likely subside within a few days. Continue hand irrigation every 4-6 hours and as needed to clear any clots. I will order a new catheter drainage bag as well. Otherwise, I will forward this message to Dr. Benz to arrange for outpatient follow-up and catheterremoval/voiding trial. -- Maxi Norris MD Urologic Surgery Time Spent 30 min Digitally Signed by MAXI NORRIS MD on 10/25/2024 09:42 AM [facility] [id number] Pulmonary Progress note Date of Service 10/25/2024 Subjective Pleural fluid cytology negative for malignancy but shows acute inflammation Objective Vitals and Measurements T: 36.6 C (Oral) TMIN: 36.6 C (Oral) TMAX: 36.7 C (Oral) HR: 62 (Monitored) RR: 16 BP: 121/66 SpO2:96% Intake and Output 7AM Yesterday to 7AM Today Intake and Output (Last 24 hours) Intake Oral Intake 410.00 Output Chest Tube Output: 300.00 Urinary Catheter Output: 4400.00 Stool Count 0.00 Total Summary Total Intake 410.00 Total Output 4700.00 Fluid Balance -4290.00 Physical Exam General-no acute distress, alert HEENT-normocephalic, atraumatic, extraocular movements intact Pulmonary-no wheeze, good air movement, small bore left-sided chest tube in place Cardiovascular-regular, no appreciable murmurs, gallops or rubs Abdomen-soft, nontender, bowel sounds positive Extremities-no cyanosis, clubbing or significant edema noted Neurologic-nonfocal Weight Dosing Weight: 88.6 kg (10/19/24) Medications Medications (18) Active Scheduled: (11) aspirin 81 mg EC 81 mg 1 tab(s), Oral, qDay atorvastatin 40 mg tablet 40 mg 1 tab(s), Oral, Daily busPIRone 15 mg Tablet 15 mg 1 tab(s), Oral, BID doxepin 75 mg Capsule 75 mg 1 cap(s), Oral, qHS ferrous sulfate 325 mg Tablet 325 mg 1 tab(s), Oral, BID finasteride 5 mg tablet 5 mg 1 tab(s), Oral, qDay furosemide 40 mg tablet 40 mg 1 tab(s), Oral, BID insulin lispro 100 units/mL Soln (3 mL) Give 0-5 units/dose, Subcutaneous, TIDAC metoprolol tartrate 12.5 mg (HALF-TAB) 12.5 mg 1 EA, Oral, BID mirtazapine 15 mg tablet 30 mg 2 tab(s), Oral, qHS tamsulosin 0.4 mg Capsule 0.8 mg 2 cap(s), Oral, qPM Continuous: (0) PRN: (7) acetaminophen 325 mg Tablet 650 mg 2 tab(s), Oral, q6hWA clonazePAM 0.5 mg tablet 0.5 mg 1 tab(s), Oral, BID dextrose 50% Solution Disp syringe 50 mL 12.5 gram(s) 25 mL, IV Push, AsDirected HYDROmorphone 0.5 mg/0.5 mL syringe 0.5 mg 0.5 mL, IV Push, q4h melatonin 3 mg tablet 3 mg 1 tab(s), Oral, qHS melatonin 3 mg tablet 3 mg 1 tab(s), Oral, qHS ondansetron 2 mg/ 1 mL 2 mL INJ 4 mg 2 mL, IV Push, q4h Lab Results 10/25 07:00 WBC: 9.5 Hgb: 11.5 L Hct: 33.8 L Platelet: 199 Neutrophil %: 76.7 H 10/24 06:57 WBC: 8.2 Hgb: 10.9 L Hct: 32.2 L Platelet: 171 Neutrophil %: 73.6 Glucose Level: 99 Sodium Level: 135 L Potassium Level: 4.0 BUN: 17.0 Creatinine Lvl (s): 0.96 EKG No qualifying data available. Assessment/Plan Acute hypoxic respiratory failure Aortic stenosis S/P AVR 2019 Bilateral pleural effusion CKD (chronic kidney disease) stage 2, GFR 60-89 ml/min Coronary artery disease S/P CABG 2019 Diabetes Gross hematuria Heart failure with preserved ejection fraction Paroxysmal atrial fibrillation Urinary retention 1. Large left-sided possibly loculated effusion with thickened pleura, likely chronic 2. Small right-sided pleural effusion with small component seen minor and major fissures 3. Likely reactive mediastinal/hilar adenopathy 4. Hypoxia secondary to large effusion 5. History of CAD. History of CABG and AVR 2019. HFpEF without acute exacerbation. Atrial fibrillation 6. History of diabetes and CKD and hypertension Recommendations: 1. Status post IR placement of left-sided pigtail chest tube for drainage of effusion 2. Fluid analysis appears to be transudative. Cultures no growth to date, cytology negative but shows acute inflammation 3. Now on room air 4. No indication for antibiotics or steroids at this time 5. The patient has been seen by thoracic surgery 6. Repeat chest x-ray this morning shows improvement. That being said, chest tube continues to put out around 300 mL in the past [address] chest in 3 months as outpatient assess for resolution of acute infiltrates and nodules Nothing to really add from a pulmonary standpoint. Once chest tube output decreases to less than 200 mL/day can be removed by interventional radiology. Pulmonary will sign off. Call with questions Digitally Signed by EARLE VALDES MD on 10/25/2024 01:33 PM [facility] [id number] Note* Exam Date Time Procedure Performing Provider Status 10/25/24 6:48 AM XR Chest 1 View Auth (Ve rified) [id number] ORIGINAL EXAMINATION: ONE XRAY VIEW OF THE CHEST 10/25/2024 6:48 am COMPARISON: 10/22/2024 HISTORY: ORDERING SYSTEM PROVIDED HISTORY: Reason for Exam: pleural effusion FINDINGS: Stable left pigtail catheter. Stable cardiomediastinal silhouette. Likely continued trace left pleural effusion and small right pleural effusion with associated airspace disease. No pneumothorax. Continued interstitial prominence. Status post sternotomy and degenerative changes of the spine. IMPRESSION: Continued trace left and small right pleural effusions with associated airspace disease. Stable left basilar pigtail catheter. I have personally reviewed the images of this examination, and agree with the resident's findings and interpretation. Interpreted by: Manuel Bueno MD Preliminary Report By: Jhonny Fair Electronically signed By Manuel Bueno MD Dictated Date: 10/25/2024 7:04:38 AM Prelim Date: 10/25/2024 7:08:29 AM Sign Date: 10/25/2024 7:16:46 AM Ordering Provider: [facility]12-12-2024 Note Date of Service 10/24/2024 Chief Complaint This is a 89-year-old male with past medical history significant for HFpEF, paroxysmal atrial fibrillation on Eliquis, diabetes, coronary artery disease S/P CABG 01/01/2019, aortic stenosis S/P A 01/01/2019VR, and CKD II. He was transferred from [facility] for shortness of breath with exertion.He was recently hospitalized for shortness of breath and treated for CHF exacerbation and possible pneumonia. He was diuresed and given azithromycin. Echocardiogram at that time showed an EF of 55%. He was discharged with orders for a 30-day monitor over concern for PVCs and bradycardia but has notyet received the monitor. At home, shortness of breath symptoms did not improve. He would check hisoxygenation after walking and SaO2 would be around 85%. CTA of the chest 10/18 showed scarring of the lung bases both bronchiectasis. Bibasilar dependent atelectasis. Bilateral pleural effusion with loculation in the right major fissure as well as posterior medial aspect of the left lower lobe. He currently is in no respiratory distress. O2 per NC at 2L with SAO2 93%. [1] 10/21/2024. Left chest tube placed per IR draining yellow serous transudative fluid. Continue to monitor output. CXR in AM Subjective No complaints Objective Vitals and Measurements T: 36.7 C (Oral) TMIN: 36.7 C (Oral) TMAX: 37.4 C (Oral) HR: 81 (Monitored) RR: 18 BP: 142/58 SpO2:96% Intake and Output 7AM Yesterday to 7AM Today Intake and Output (Last 24 hours) Intake Oral Intake 390.00 Output Chest Tube Output: 280.00 Urinary Catheter Output: 1400.00 Stool Count 0.00 Total Summary Total Intake 390.00 Total Output 1680.00 Fluid Balance -1290.00 Physical Exam Neurological: Alert and orient x 3, appropriate Lungs: Clear, mildly diminished, on room air with SaO2 96%, left chest tube to suction drained 700 cc serous yellow last 8 hours. No airleak Heart: Regular S1-S2 Abdomen: Soft, positive bowel sounds Extremities: Well-perfused Webster catheter draining dark red Weight Dosing Weight: 88.6 kg (10/19/24) Medications Medications (18) Active Scheduled: (11) aspirin 81 mg EC 81 mg 1 tab(s), Oral, qDay atorvastatin 40 mg tablet 40 mg 1 tab(s), Oral, Daily busPIRone 15 mg Tablet 15 mg 1 tab(s), Oral, BID doxepin 75 mg Capsule 75 mg 1 cap(s), Oral, qHS ferrous sulfate 325 mg Tablet 325 mg 1 tab(s), Oral, BID finasteride 5 mg tablet 5 mg 1 tab(s), Oral, qDay furosemide 40 mg tablet 40 mg 1 tab(s), Oral, BID insulin lispro 100 units/mL Soln (3 mL) Give 0-5 units/dose, Subcutaneous, TIDAC metoprolol tartrate 12.5 mg (HALF-TAB) 12.5 mg 1 EA, Oral, BID mirtazapine 15 mg tablet 30 mg 2 tab(s), Oral, qHS tamsulosin 0.4 mg Capsule 0.8 mg 2 cap(s), Oral, qPM Continuous: (0) PRN: (7) acetaminophen 325 mg Tablet 650 mg 2 tab(s), Oral, q6hWA clonazePAM 0.5 mg tablet 0.5 mg 1 tab(s), Oral, BID dextrose 50% Solution Disp syringe 50 mL 12.5 gram(s) 25 mL, IV Push, AsDirected HYDROmorphone 0.5 mg/0.5 mL syringe 0.5 mg 0.5 mL, IV Push, q4h melatonin 3 mg tablet 3 mg 1 tab(s), Oral, qHS melatonin 3 mg tablet 3 mg 1 tab(s), Oral, qHS ondansetron 2 mg/ 1 mL 2 mL INJ 4 mg 2 mL, IV Push, q4h Lab Results 10/24 06:57 WBC: 8.2 Hgb: 10.9 L Hct: 32.2 L Platelet: 171 Neutrophil %: 73.6 Glucose Level: 99 Sodium Level: 135 L Potassium Level: 4.0 BUN: 17.0 Creatinine Lvl (s): 0.96 10/23 07:19 WBC: 7.6 Hgb: 10.3 L Hct: 30.0 L Platelet: 148 L Neutrophil %: 74.9 Glucose Level: 108 Sodium Level: 136 Potassium Level: 3.8 BUN: 20.0 Creatinine Lvl (s): 1.07 Imaging Results and Diagnostics (10/22/2024 08:44 EST XR Chest 1 View) COMPARISON: Chest 10/21/2024 CT chest 10/20/2024 HISTORY: ORDERING SYSTEM PROVIDED HISTORY: Reason for Exam: pleural effusion FINDINGS: Support devices: A left pigtail chest tube overlies the lung base. Cardiomediastinal: Stable cardiomegaly. Status post median sternotomy and CABG. Lungs: Lungs are hyperinflated. Redemonstrated are ovoid opacities in the right lung representing fluid trapped in the minor and major fissures. Unchanged small, left greater than right pleural effusions which were more prominent on the CT chest of reference. Right lower lobe airspace disease is unchanged. Pneumothorax: None Osseous: No acute osseous pathology. IMPRESSION: 1. Unchanged small, left greater than right pleural effusions. 2. Unchanged right lower lobe airspace disease. 3. Unchanged ovoid opacities in the right lung representing fluid trapped in the minor and major fissures. 4. Left-sided chest tube in place [2] Assessment/Plan 1. Bilateral pleural effusion Left chest tube draining yellow serous, appears to be transudative, drained 700cc last 8 hours, continue to monitor output, CXR in AM 2. Acute hypoxic respiratory failure On room air 3. CKD (chronic kidney disease) stage 2, GFR 60-89 ml/min 4. Diabetes 5. Aortic stenosis S/P AVR 2018 6. Coronary artery disease S/P CABG 2018 7. Paroxysmal atrial fibrillation Awaiting Dr. Quiñones's evaluation [1] Consult Note; CRYSTAL VERGARA APRN-FREIGHT CONDUCTOR 10/19/2024 16:29 EST [2] XR Chest 1 View; CORNELL KLEIN MD 10/22/2024 08:44 EST Digitally Signed by SKYLA SUE APRN-SUPERVISOR [employer] on 10/24/2024 02:40 PM [id number] Pulmonary Progress note Date of Service 10/24/2024 Subjective Patient has been transitioned to room air now saturating mid 90s. Output from chest tube decreasing. Objective Vitals and Measurements T: 36.7 C (Oral) TMIN: 36.7 C (Oral) TMAX: 37.4 C (Oral) HR: 82 (Apical) RR: 18 BP: 117/50 SpO2: 96% Intake and Output 7AM Yesterday to 7AM Today Intake and Output (Last 24 hours) Intake Oral Intake 390.00 Output Chest Tube Output: 280.00 Urinary Catheter Output: 1150.00 Stool Count 0.00 Total Summary Total Intake 390.00 Total Output 1430.00 Fluid Balance -1040.00 Physical Exam General-no acute distress, alert HEENT-normocephalic, atraumatic, extraocular movements intact Pulmonary-no wheeze, good air movement, small bore left-sided chest tube in place Cardiovascular-regular, no appreciable murmurs, gallops or rubs Abdomen-soft, nontender, bowel sounds positive Extremities-no cyanosis, clubbing or significant edema noted Neurologic-nonfocal Weight Dosing Weight: 88.6 kg (10/19/24) Medications Medications (18) Active Scheduled: (11) aspirin 81 mg EC 81 mg 1 tab(s), Oral, qDay atorvastatin 40 mg tablet 40 mg 1 tab(s), Oral, Daily busPIRone 15 mg Tablet 15 mg 1 tab(s), Oral, BID doxepin 75 mg Capsule 75 mg 1 cap(s), Oral, qHS ferrous sulfate 325 mg Tablet 325 mg 1 tab(s), Oral, BID finasteride 5 mg tablet 5 mg 1 tab(s), Oral, qDay furosemide 40 mg tablet 40 mg 1 tab(s), Oral, BID insulin lispro 100 units/mL Soln (3 mL) Give 0-5 units/dose, Subcutaneous, TIDAC metoprolol tartrate 12.5 mg (HALF-TAB) 12.5 mg 1 EA, Oral, BID mirtazapine 15 mg tablet 30 mg 2 tab(s), Oral, qHS tamsulosin 0.4 mg Capsule 0.8 mg 2 cap(s), Oral, qPM Continuous: (0) PRN: (7) acetaminophen 325 mg Tablet 650 mg 2 tab(s), Oral, q6hWA clonazePAM 0.5 mg tablet 0.5 mg 1 tab(s), Oral, BID dextrose 50% Solution Disp syringe 50 mL 12.5 gram(s) 25 mL, IV Push, AsDirected HYDROmorphone 0.5 mg/0.5 mL syringe 0.5 mg 0.5 mL, IV Push, q4h melatonin 3 mg tablet 3 mg 1 tab(s), Oral, qHS melatonin 3 mg tablet 3 mg 1 tab(s), Oral, qHS ondansetron 2 mg/ 1 mL 2 mL INJ 4 mg 2 mL, IV Push, q4h Lab Results 10/24 06:57 WBC: 8.2 Hgb: 10.9 L Hct: 32.2 L Platelet: 171 Neutrophil %: 73.6 Glucose Level: 99 Sodium Level: 135 L Potassium Level: 4.0 BUN: 17.0 Creatinine Lvl (s): 0.96 10/23 07:19 WBC: 7.6 Hgb: 10.3 L Hct: 30.0 L Platelet: 148 L Neutrophil %: 74.9 Glucose Level: 108 Sodium Level: 136 Potassium Level: 3.8 BUN: 20.0 Creatinine Lvl (s): 1.07 EKG No qualifying data available. Assessment/Plan Acute hypoxic respiratory failure Aortic stenosis S/P AVR 2018 CKD (chronic kidney disease) stage 2, GFR 60-89 ml/min Coronary artery disease S/P CABG 2019 Diabetes Gross hematuria Heart failure with preserved ejection fraction Paroxysmal atrial fibrillation Urinary retention 1. Large left-sided possibly loculated effusion with thickened pleura, likely chronic 2. Small right-sided pleural effusion with small component seen minor and major fissures 3. Likely reactive mediastinal/hilar adenopathy 4. Hypoxia secondary to large effusion 5. History of CAD. History of CABG and AVR 2019. HFpEF without acute exacerbation. Atrial fibrillation 6. History of diabetes and CKD and hypertension Recommendations: 1. Status post IR placement of left-sided pigtail chest tube for drainage of effusion 2. Fluid analysis appears to be transudative. Follow-up on cultures and cytology 3. Now on room air 4. No indication for antibiotics or steroids at this time 5. The patient has been seen by thoracic surgery 6. Repeat chest x-ray tomorrow morning. If drainage remains minimal with improvement in chest x-raycan consider removal of chest tube in the next 24 to [address] chest in 3 months as outpatient assess for resolution of acute infiltrates and nodules Digitally Signed by SHELLIE FORD MD on 10/24/2024 11:01 AM Digitally Signed by SHELLIE FORD MD on 10/24/2024 11:03 AM [facility] [id number] Pulmonary Progress note Date of Service 10/23/24 Subjective Overall feels well, breathing okay Objective Vitals and Measurements T: 36.9 C (Oral) TMIN: 36.4 C (Oral) TMAX: 36.9 C (Oral) HR: 74 (Apical) RR: 16 BP: 92/57 SpO2: 92% Intake and Output 7AM Yesterday to 7AM Today Intake and Output (Last 24 hours) Intake Administration Information 160.00 Oral Intake 983.00 Output Chest Tube Output: 390.00 Urinary Catheter Output: 2550.00 Stool Count 0.00 Total Summary Total Intake 1143.00 Total Output 2940.00 Fluid Balance -1797.00 Physical Exam General-no acute distress, alert HEENT-normocephalic, atraumatic, extraocular movements intact Pulmonary-no wheeze, good air movement, small bore left-sided chest tube in place Cardiovascular-regular, no appreciable murmurs, gallops or rubs Abdomen-soft, nontender, bowel sounds positive Extremities-no cyanosis, clubbing or significant edema noted Neurologic-nonfocal Weight Dosing Weight: 88.6 kg (10/19/24) Medications Medications (20) Active Scheduled: (12) amLODIPine 10 mg tablet 10 mg 1 tab(s), Oral, qDay aspirin 81 mg EC 81 mg 1 tab(s), Oral, qDay atorvastatin 40 mg tablet 40 mg 1 tab(s), Oral, Daily busPIRone 15 mg Tablet 15 mg 1 tab(s), Oral, BID doxepin 75 mg Capsule 75 mg 1 cap(s), Oral, qHS ferrous sulfate 325 mg Tablet 325 mg 1 tab(s), Oral, BID finasteride 5 mg tablet 5 mg 1 tab(s), Oral, qDay furosemide 40 mg tablet 40 mg 1 tab(s), Oral, BID insulin lispro 100 units/mL Soln (3 mL) Give 0-5 units/dose, Subcutaneous, TIDAC metoprolol tartrate 12.5 mg (HALF-TAB) 12.5 mg 1 EA, Oral, BID mirtazapine 15 mg tablet 30 mg 2 tab(s), Oral, qHS tamsulosin 0.4 mg Capsule 0.8 mg 2 cap(s), Oral, qPM Continuous: (1) NS (0.9% nacl) 1,000 mL 1,000 mL, Intravenous, 20 mL/hr PRN: (7) acetaminophen 325 mg Tablet 650 mg 2 tab(s), Oral, q6hWA clonazePAM 0.5 mg tablet 0.5 mg 1 tab(s), Oral, BID dextrose 50% Solution Disp syringe 50 mL 12.5 gram(s) 25 mL, IV Push, AsDirected HYDROmorphone 0.5 mg/0.5 mL syringe 0.5 mg 0.5 mL, IV Push, q4h melatonin 3 mg tablet 3 mg 1 tab(s), Oral, qHS melatonin 3 mg tablet 3 mg 1 tab(s), Oral, qHS ondansetron 2 mg/ 1 mL 2 mL INJ 4 mg 2 mL, IV Push, q4h Lab Results 10/23 07:19 WBC: 7.6 Hgb: 10.3 L Hct: 30.0 L Platelet: 148 L Neutrophil %: 74.9 Glucose Level: 108 Sodium Level: 136 Potassium Level: 3.8 BUN: 20.0 Creatinine Lvl (s): 1.07 10/22 06:18 WBC: 9.5 Hgb: 11.0 L Hct: 31.7 L Platelet: 158 Neutrophil %: 73.7 Glucose Level: 94 Sodium Level: 135 L Potassium Level: 3.8 BUN: 19.0 Creatinine Lvl (s): 1.05 EKG No qualifying data available. Assessment/Plan Acute hypoxic respiratory failure Aortic stenosis S/P AVR 2019 CKD (chronic kidney disease) stage 2, GFR 60-89 ml/min Coronary artery disease S/P CABG 2019 Diabetes Gross hematuria Heart failure with preserved ejection fraction Paroxysmal atrial fibrillation Urinary retention 1. Large left-sided possibly loculated effusion with thickened pleura, likely chronic 2. Small right-sided pleural effusion with small component seen minor and major fissures 3. Likely reactive mediastinal/hilar adenopathy 4. Hypoxia secondary to large effusion 5. History of CAD. History of CABG and AVR 2019. HFpEF without acute exacerbation. Atrial fibrillation 6. History of diabetes and CKD and hypertension Recommendations: 1. Status post IR placement of left-sided pigtail chest tube for drainage of effusion 2. Fluid analysis was never sent, will ask nursing to send today 3. Continue nasal oxygen 4. No indication for antibiotics or steroids at this time 5. The patient has been seen by thoracic surgery Digitally Signed by EARLE VALDES MD on 10/23/2024 12:39 PM [facility] [id number] Note IR Procedure Record Summary Primary Physician: SATYA JOHNSON DO Finalized Date/Time: 10/22/24 18:16:16 Pt. Name: OSVALDO LUCIO/Sex: 1935 Male Med Rec #: [id number] Physician: NILDA DOWD MD Financial #: [id number] Pt. Type: I Room/Bed: [facility]/A Admit/Disch: 10/19/24 09:09:00 - Institution: Allergies identified in patient's electronic medical record at time of printing on 10/22/24 Entry 1 Substance NKA Reaction Type Allergy Last Modified By: Lorna Noble 12/26/18 12:01:39 Case Attendance- IR Entry 1 Entry 2 Entry 3 Case Attendee SATYA JOHNSON Hannah RN Brooks, Jacque M. Role Performed Primary Surgeon Procedure Nurse Pickle Processor Details Time In 10/21/24 12:17:00 10/21/24 12:14:00 10/21/24 12:14:00 Time Out 10/21/24 12:40:00 10/21/24 12:40:00 10/21/24 12:40:00 Procedure/Preference IR Chest Tube Insertion IR Chest Tube Insertion IR Chest Tube Insertion Card SN SN SN Last Modified By: JOSAFAT Aguiar RN Corey Snider, RN Corey 10/21/24 12:32:51 10/21/24 12:32:51 10/21/24 12:32:51 Entry 4 Entry 5 Case Attendee Deon Burch Rubber Stamps And Dies SupervisorSam Guy Role Performed Scrub Technologist Scrub Relief Details Time In 10/21/24 12:14:00 10/21/24 12:19:00 Time Out 10/21/24 12:19:00 10/21/24 12:40:00 Procedure/Preference IR Chest Tube Insertion IR Chest Tube Insertion Card SN SN Last Modified By: JOSAFAT Aguiar RN Corey 10/21/24 12:32:51 10/21/24 12:32:51 Radiology Procedures- IR Entry 1 Procedure/Preference IR Chest Tube Insertion Actual Procedure chest tube insertion Card SN Primary Procedure Yes Primary Surgeon SATYA JOHNSON DO Anesthesia/Sedation None Type Additional Procedure Times Start 10/21/24 12:17:00 Stop 10/21/24 12:32:00 Specialty Service SN Radiology Procedure EBL 1 mL Last Modified By: JOSAFAT Aguiar 10/21/24 12:32:55 Radiology Procedure Details - IR Entry 1 Radiology Sedation Case Times Sedation Total Time 0 Radiology - Fluid/Drainage Radiology Contrast Contrast Used? No Radiology Flouroscopy Fluoroscopy Used? No Fluoro Time 0 Radiology Local Local Used? Yes Local Type: lido 1% Local Dose 7mL Radiology Procedure Site Site/Location left posterior lateral Site Condition No complications Dressing Type Gauze sponge 4 X 4, Transparent Last Modified By: Nirmala Quintero RN 10/21/24 12:29:38 General Case Data - IR Entry 1 Case Information Room AH IR 16 Case Level IR Level 2 Wound Class None Specialty SN Radiology Procedure ASA Class None Diagnosis Preop Diagnosis loculated pleural Postop Same As Preop Yes effusion Postop Diagnosis loculated pleural effusion Last Modified By: Nirmala Quintero RN 10/21/24 12:22:03 Procedure Case Times- IR Entry 1 Patient In Procedure Patient In OR 10/21/24 12:14:00 Patient Out of OR 10/21/24 12:40:00 Procedure Start/Stop Procedure Start Time 10/21/24 12:17:00 Procedure Stop Time 10/21/24 12:32:00 Last Modified By: JOSAFAT Aguiar 10/21/24 12:32:50 Immediate Post OP Note - IR Entry 1 Immediate Post Yes Findings 10 fr left pleural Procedure Note drain/chest tube. displayed for pleuravac attached. Physician to review Closure Technique Closure Technique Other than Primary Last Modified By: JOSAFAT Aguiar 10/21/24 12:32:44 Immediate Post OP Note - IR Signed By: SATYA JOHNSON DO 10/21/24 12:32 Allergy Information- IR Entry 1 Allergies Reviewed? Yes Allergies Reviewed Medical Record With Last Modified By: Nirmala Quintero RN 10/21/24 12:18:38 Radiology Protocols/Time Out- IR Entry 1 Preprocedure Clinician Verifies Correct patient ID When Clinically Confirmation of correct using name & date Indicated side(s) and site(s), or MRN, Accurate Correct diagnostic and procedure, complete radiology tests Informed Consent, H & P available update immediately prior to procedure, if applicable OR/Procedure Room/Bedside Time 10/21/24 12:17:00 Clinician Verifies Correct patient identity including EMR & records using name and date or medical record number, Accurate procedure consent form, Correct patient position, Necessary equipment is available, Anticipated non-routine events with surgical team (case duration, estimated blood loss, patient specific concerns)., [place]lier patient factors for recovery and management identified with surgical team. When Applicable Confirmation correct Team Members SATYA JOHNSON DO, side and site marked, Present for Time Out Nirmala Quintero RN, Relevant images and Maile Wright, results are properly Jacoby Shethli labeled and L appropriately displayed, Alcohol based prep dry, Double verification of sterility indicators complete Instrument Sterility Team Members SATYA JOHNSON DO, Verifying Sterility Jacoby Sheth Terrie L Procedure IR Chest Tube Insertion SN Last Modified By: Maile Wright 10/22/24 18:15:54 Skin Prep- IR Entry 1 Procedure IR Chest Tube Insertion SN Skin Prep Prep Area Back Side Left, Posterior, Lateral By SATYA JOHNSON DO Prep Agents Chloraprep Hair Removal Method N/A Last Modified By: Nirmala Quintero RN 10/21/24 12:21:22 Patient Positioning- IR Entry 1 Procedure IR Chest Tube Insertion Body Position OP Right Lateral SN Feet Uncrossed? Yes Pressure Points Yes Checked Last Modified By: Nirmala Quintero RN 10/21/24 12:21:31 Radiology Procedure Plan - IR Entry 1 Radiology - Nursing Care Plan Outcome Statement The patient Outcome Statement The patient receives demonstrates knowledge Cont. appropriate of the expected medication(s), safely responses to the administered during the operative/invasive perioperative/invasive procedure., The period., The patient is patient's value system, free from signs and lifestyle, ethnicity, symptoms of injury and culture are caused by extraneous considered, respected, objects (equipment, and incorporated in the instrumentation, perioperative plan of sponges, or sharps). care., The patient is free from signs and symptoms of infection., The patient is free from signs and symptoms of injury related to positioning. Radiology - Action Plan Outcomes Met? Yes Assistant Food Service Manager Nirmala Quintero RN Completing Procedure Plan Last Modified By: Nirmala Quintero RN 10/21/24 12:21:45 Case Comments Finalized By: Maile Wright Document Signatures Signed By: JOSAFAT Aguiar 10/21/24 12:41 Maile Wright 10/22/24 18:16 [id number] Pastoral care Progress note Pastoral Care Note Entered On: 10/22/2024 14:32 EST Performed On: 10/22/2024 9:50 EST by Everette Martinez Pastoral Care Type of Pastoral Visit : Follow up visit Spiritual Care Visit Initiated by : Nib Assembler Spiritual Care Reason for Visit : General Pastoral Care Referral From : Patient Spiritual Assessment : Faithful, Hopeful, Grateful/Thankful Spiritual Care Emotional Assessment : Optimistic Spiritual Care Intervention : Active listening, Words of Encouragement, Compassion/Empathy, Validation of Feelings, Supportive presence, Conversation Spiritual Outcomes : Spiritual Resources Stirred, Expresses Gratitude, Expresses Asiya Spiritual Plan of Care : Visit as Requested Pastoral Care Comments : Provided spiritual/emotional care to pt w/presence, emphatic listening, encouragement, conversation, validation of feelings, compassion. Pt expressed asiya, hope, thankfulness, determination (to walk around again, "not just in my apartment!"). Prayed at req of pt. Pastoral Care Visit Length : 10 minute(s) Everette Martinez - 10/22/2024 14:30 EST Digitally Signed by Everette Martinez on 10/22/2024 02:30 PM [facility] [id number] Note Date of Service 10/22/2024 Reason for Consultation Admission From: Home Consult Skin Team re: Pressure Staging - Ordered -- 10/21/24 20:16:36 EST Skin Team Findings Vitals and Measurements T: 36.6 C (Oral) TMIN: 36.5 C (Oral) TMAX: 37.5 C (Axillary) HR: 86 (Apical) RR: 18 BP: 116/68 SpO2: 96% Pressure Area Details ------Pressure Area------ Coccyx - Pressure Area Description: Red, non blanchable Coccyx - Pressure Area Dressing Description: Open to air Coccyx - Pressure Area Surrounding Tissue: Erythema Coccyx - Pressure Ulcer Present On Admission: No Coccyx - Pressure Ulcer Stage: Stage 1 ------Incision/Wound------ Arm Right - Incision, Wound Dressing/Activity: Open to air Arm Right - Incision, Wound Dressing: Open to air Arm Right - Incision, Wound Surrounding Tissue: Dry Arm Right - Skin Abnormality Color: Other: covered with a dry bloody crust Arm Right - Skin Abnormality Type: Abrasion Arm Right - Wound Exudate Amount: None Arm Right - Wound Status: No complications Assessments and Recommendations ------Assessments------ Current Skin/Wound Interventions: Hospital bed, Physical Therapy, Occupational Therapy, Turn and reposition every 2 hours, Other: up in chair Present For Wound Observation: Nurse ------Recommendations------ Recommended Skin/Wound Interventions: Seat cushion, Turn and position system, Transparent silicone dressing, Turn and reposition every 2 hours, Other: float heels off mattress with pillow Education No qualifying data available. Prevention interventions, reinforce education as needed. Problem List/Past Medical History Ongoing Gross hematuria Urinary retention Digitally Signed by Qi Reid RN, Skin Team on 10/22/2024 12:02 PM [facility] [id number] Note* Exam Date Time Procedure Performing Provider Status 10/22/24 8:44 AM XR Chest 1 View Auth (Ve rified) [id number] ORIGINAL EXAMINATION: ONE XRAY VIEW OF THE CHEST TECHNIQUE: One view AP upright COMPARISON: Chest 10/21/2024 CT chest 10/20/2024 HISTORY: ORDERING SYSTEM PROVIDED HISTORY: Reason for Exam: pleural effusion FINDINGS: Support devices: A left pigtail chest tube overlies the lung base. Cardiomediastinal: Stable cardiomegaly. Status post median sternotomy and CABG. Lungs: Lungs are hyperinflated. Redemonstrated are ovoid opacities in the right lung representing fluid trapped in the minor and major fissures. Unchanged small, left greater than right pleural effusions which were more prominent on the CT chest of reference. Right lower lobe airspace disease is unchanged. Pneumothorax: None Osseous: No acute osseous pathology. IMPRESSION: 1. Unchanged small, left greater than right pleural effusions. 2. Unchanged right lower lobe airspace disease. 3. Unchanged ovoid opacities in the right lung representing fluid trapped in the minor and major fissures. 4. Left-sided chest tube in place Interpreted by: Cornell Klein MD Preliminary Report By: Cornell Klein MD Electronically signed By Cornell Klein MD Dictated Date: 10/22/2024 9:06:41 AM Prelim Date: 10/22/2024 9:14:15 AM Sign Date: 10/22/2024 9:14:15 AM [facility] Note History of Present Illness 89-year-old with PMHx CHF paroxysmal A-fib on Eliquis, DM, CAD s/p CABG 01/01/2019, CKD is admitted from [facility] [place]. She was recently admitted to outside hospital on 10/13/2024 for shortness ofbreath and treated for CHF exacerbation and possible pneumonia. pt had three different webster catheters and none were draining. pt had 850 ml on bladder scan. I placed a webster with a catheter guide with difficulty. 900 ml of bloody urine drained. Review of Systems Patient denies fever, chills, sweats, nausea or vomiting at this time. Pt denies headaches, visual disturbances, neck pain. Pt denies shortness of breath or dyspnea. Pt denies chest pain, palpitations. Pt denies abdominal pain, or flank pain. Pt denies lower extremity swelling or gait disturbances at this time. Physical Exam Vitals and Measurements T: 37.5 C (Axillary) TMIN: 36.6 C (Oral) TMAX: 37.5 C (Axillary) HR: 82 (Apical) RR: 16 BP: 153/70 SpO2: 94% Oxygen Therapy: Nasal cannula 0L-6L Oxygen Flow Rate: 1 L/min Pt appears normal in appearance. No acute distress. Breathing non-labored lungs cta bilaterally CVA - RRR abd soft, nt, nd, no palpable masses, no renal tenderness, no suprapubic tenderness genitalia normal extremities without edema Social History Alcohol - Denies Alcohol Use, 12/26/2018 Sexual - No Risk, 12/26/2018 Substance Abuse - Denies Substance Abuse, 12/26/2018 Tobacco - Denies Tobacco Use, 12/26/2018 Tobacco Use: Former smoker, quit more than 30 days ago. Type: Cigars., 12/26/2018 Family History Cancer: Daughter. HTN - Hypertension: Brother and Daughter. Stroke: Mother and Father. Health Status Family Member(s) Assessment/Plan 1. Urinary retention Plan to leave webster for a minimum of 7 days. I would recommend flomax for now. Pt can folllow up with urology as outpatient for webster removal. Will follow at a distance. 2. Gross hematuria manually irrigate webster as necessary. Medication Administration Given amiodarone, 400 mg, Oral amiodarone, 400 mg, Oral amiodarone, 400 mg, Oral amiodarone, 400 mg, Oral amiodarone, 400 mg, Oral amLODIPine, 10 mg, Oral aspirin 81 mg oral delayed release tablet, 81 mg, Oral aspirin 81 mg oral delayed release tablet, 81 mg, Oral aspirin 81 mg oral delayed release tablet, 81 mg, Oral busPIRone, 10 mg, Oral busPIRone, 10 mg, Oral busPIRone, 10 mg, Oral busPIRone, 10 mg, Oral busPIRone, 10 mg, Oral Dilaudid, 0.5 mg, IV Push doxepin 100 mg oral capsule, 100 mg, Oral doxepin 100 mg oral capsule, 100 mg, Oral fenofibrate 160 mg oral tablet, 160 mg, Oral fenofibrate 160 mg oral tablet, 160 mg, Oral fenofibrate 160 mg oral tablet, 160 mg, Oral fur4, 40 mg, Oral fur4, 40 mg, Oral glipiZIDE 5 mg oral tablet, 10 mg, Oral glipiZIDE 5 mg oral tablet, 10 mg, Oral HumaLOG 100 units/mL subcutaneous solution, 1 unit(s), Subcutaneous Iron (ferrous sulfate) oral tablet, 325 mg, Oral Lipitor, 40 mg, Oral Lipitor, 40 mg, Oral metoprolol tartrate 25 mg oral tablet, 12.5 mg, Oral metoprolol tartrate 25 mg oral tablet, 25 mg, Oral metoprolol tartrate 25 mg oral tablet, 25 mg, Oral metoprolol tartrate 25 mg oral tablet, 25 mg, Oral metoprolol tartrate 25 mg oral tablet, 25 mg, Oral metoprolol tartrate 25 mg oral tablet, 25 mg, Oral Proscar, 5 mg, Oral traZODone, 100 mg, Oral traZODone, 100 mg, Oral Problem List/Past Medical History Ongoing Gross hematuria Urinary retention Procedure/Surgical History CABG x 2 - Coronary artery bypass grafts x 2: 01/01/19 AVR - Aortic valve replacement: 01/01/19 Cardiac catheterization: 2018 Ankle fracture: 1993 Cataract extraction Allergies NKA Medications What How Much When Instructions Last Dose Changed atorvastatin (Lipitor 40 mg oral tablet) 1 tab(s) by mouth Daily at bedtime Changed busPIRone (busPIRone 15 mg oral tablet) 1 tab(s) by mouth Two (2) times a day Changed doxepin (doxepin 75 mg oral capsule) 1 cap by mouth Daily at bedtime Changed metoprolol (metoprolol tartrate 25 mg oral tablet) 0.5 tab(s) by mouth Two (2) times a day Unchanged amLODIPine (amLODIPine 10 mg oral tablet) 1 tab(s) by mouth Once a day Unchanged apixaban (Eliquis 2.5 mg oral tablet) 1 tab(s) by mouth Two (2) times a day Unchanged clonazePAM (KlonoPIN 0.5 mg oral tablet) 1 tab(s) by mouth Two (2) times a day as needed for Anxiety Unchanged ferrous sulfate (ferrous sulfate 325 mg (65 mg elemental iron) oral tablet) 1 tab(s) by mouth Two (2) times a day Unchanged finasteride (Proscar 5 mg oral tablet) 1 tab(s) by mouth Once a day Unchanged furosemide (furosemide 40 mg oral tablet) 1 tab(s) by mouth Two (2) times a day Unchanged insulin lispro-insulin lispro protamine (Humalog Mix) (HumaLOG Mix 50/ 50 KwikPen 3 mL PEN) 28 unit(s) Subcutaneous Two (2) times daily before meals Unchanged lisinopril (Zestril 20 mg oral tablet) 1 tab(s) by mouth Two (2) times a day Unchanged mirtazapine (Remeron 30 mg oral tablet) 1 tab(s) by mouth Daily at bedtime Unchanged multivitamin with minerals (Centrum Silver oral tablet) 1 tab(s) by mouth Once a day Unchanged multivitamin with minerals (PreserVision) 1 tab(s) by mouth Two (2) times a day Unchanged potassium chloride (Potassium Chloride (Eqv-K-Tab) 10 mEq oral tablet, extended release) 2 tab(s) by mouth Once a day before a meal Unchanged tamsulosin (Flomax 0.4 mg oral capsule) 2 cap by mouth Once a day (in the evening) Digitally Signed by LORNA BENZ MD on 10/21/2024 07:53 PM [facility] [id number] Procedure note Date of Service 10/21/2024 Procedure Name Difficult webster placement Consent verbal consent obtained from patient. Indication nurses unable to place catheter Pre-Procedure Exam abd soft, nt, nd Procedural Sedation none Technique 20 F webster placed with difficulty using catheter guide under sterile technique Findings 900 ml drained from bladder of bloody urine. Pt may need manual irrigation Complications none Estimated Blood Loss 50 ml Total Time 20 minutes Assessment/Plan Acute hypoxic respiratory failure Aortic stenosis S/P AVR 2018 CKD (chronic kidney disease) stage 2, GFR 60-89 ml/min Coronary artery disease S/P CABG 2019 Diabetes Heart failure with preserved ejection fraction Paroxysmal atrial fibrillation Digitally Signed by LORNA BENZ MD on 10/21/2024 07:48 PM [facility] [id number] NoteORIGINAL PROCEDURE: Ultrasound GUIDED 10 Singaporean left CHEST TUBE PLACEMENT 10/21/2024 HISTORY: ORDERING SYSTEM PROVIDED HISTORY: Reason for Exam: Left possibly loculated effusion Pneumothorax SEDATION: None TECHNIQUE: Maximum sterile barrier technique including hand hygiene, skin prep and sterile ultrasound technique utilized for procedure.. Sterile ultrasound technique also utilized for procedure. Informed consent was obtained after a detailed explanation of the procedure including risks, benefits, and alternatives. [place] protocol was followed. A suitable skin site was prepped and draped in sterile fashion following ultrasound localization. Micro puncture set was used to access left pleural space left basilar region. Micro puncture set was exchanged over 035 wire for 10 [place]an external drainage catheter. Catheter affixed to the patient's skin. Pleura vac applied and ordered to 20 cm water wall suction. Dressing applied. Postprocedure chest radiograph ordered. Patient tolerated procedure well. FINDINGS: Pre and intraprocedural images demonstrate left basilar pleural fluid with access needle and guidewire within it. Postprocedure chest radiograph demonstrates 10 Singaporean pigtail catheter curled in the left basilar region. No complication suggested. Post procedure images demonstrate the chest tube in good position IMPRESSION: Successful ultrasound guided placement of a 10 [place] left chest tube which was fixed to the patient's skin and attached to pleura vac. Pleura vac was ordered to continuous 20 cm water wall suction. No complication suggested Interpreted by: Satya Johnson DO Preliminary Report By: Satya Johnson DO Electronically signed By Satya Johnson DO Dictated Date: 10/21/2024 4:57:34 PM Prelim Date: 10/21/2024 4:59:44 PM Sign Date: 10/21/2024 4:59:44 PM Ordering Provider: [facility]12-09-2024 Pastoral care Progress note Pastoral Care Note Entered On: 10/21/2024 15:38 EST Performed On: 10/21/2024 11:20 EST by Everette Martinez Pastoral Care Type of Pastoral Visit : Initial visit Spiritual Care Visit Initiated by : Consult/Referral Spiritual Care Intervention : Staff with Patient Spiritual Plan of Care : Follow-Up Visit Pastoral Care Visit Length : 5 minute(s) Everette Martinez - 10/21/2024 15:37 EST Digitally Signed by Everette Martinez on 10/21/2024 03:37 PM [facility] [id number] Note* Exam Date Time Procedure Performing Provider Status 10/21/24 12:48 PM IR Chest Tube Insertion Auth (Verified) [id number] ORIGINAL PROCEDURE: Ultrasound GUIDED 10 [place]an left CHEST TUBE PLACEMENT 10/21/2024 HISTORY: ORDERING SYSTEM PROVIDED HISTORY: Reason for Exam: Left possibly loculated effusion Pneumothorax SEDATION: None TECHNIQUE: Maximum sterile barrier technique including hand hygiene, skin prep and sterile ultrasound technique utilized for procedure.. Sterile ultrasound technique also utilized for procedure. Informed consent was obtained after a detailed explanation of the procedure including risks, benefits, and alternatives. [place] protocol was followed. A suitable skin site was prepped and draped in sterile fashion following ultrasound localization. Micro puncture set was used to access left pleural space left basilar region. Micro puncture set was exchanged over 035 wire for 10 Singaporean external drainage catheter. Catheter affixed to the patient's skin. Pleura vac applied and ordered to 20 cm water wall suction. Dressing applied. Postprocedure chest radiograph ordered. Patient tolerated procedure well. FINDINGS: Pre and intraprocedural images demonstrate left basilar pleural fluid with access needle and guidewire within it. Postprocedure chest radiograph demonstrates 10 Singaporean pigtail catheter curled in the left basilar region. No complication suggested. Post procedure images demonstrate the chest tube in good position IMPRESSION: Successful ultrasound guided placement of a 10 Singaporean left chest tube which was fixed to the patient's skin and attached to pleura vac. Pleura vac was ordered to continuous 20 cm water wall suction. No complication suggested Interpreted by: Satya Johnson DO Preliminary Report By: Satya Johnson DO Electronically signed By Satya Johnson DO Dictated Date: 10/21/2024 4:57:34 PM Prelim Date: 10/21/2024 4:59:44 PM Sign Date: 10/21/2024 4:59:44 PM Ordering Provider: CARLOS KING [facility] [id number] Note* Exam Date Time Procedure Performing Provider Status 10/21/24 12:45 PM XR Chest 1 View Auth (Ve rified) [id number] ORIGINAL EXAMINATION: ONE XRAY VIEW OF THE CHEST10/21/2024 12:45 pm COMPARISON: 10/20/2024, CT 10/20/2024 HISTORY: ORDERING SYSTEM PROVIDED HISTORY: Reason for Exam: post chest tube insertion in bed FINDINGS: The exam is rotated. The heart appears enlarged. Atherosclerosis seen. Sternotomy wires appear intact. Accentuated vascular markings seen. Prominent density at an oblique angle from the right hilum could relate to fluid trapped in the right major fissure. Patchy multifocal airspace opacities seen in the right lung. Small left pleural effusions seen. There is a left pleural space catheter. No pleural fluid or pneumothorax. No aggressive osseous lesions identified.Degenerative changes seen of the shoulders. IMPRESSION: Loculated right pleural effusion with patchy multifocal airspace disease in the right lung. Follow to resolution. Small residual left pleural effusion with the left pleural space catheter in place Mild vascular congestion pattern Interpreted by: Jamaal Garcia MD Preliminary Report By: Jamaal Garcia MD Electronically signed By Jamaal Garcia MD Dictated Date: 10/21/2024 12:52:14 PM Prelim Date: 10/21/2024 12:54:12 PM Sign Date: 10/21/2024 12:54:12 PM Ordering Provider: SATYA JOHNSON [facility] [id number] Procedure note Date of Service INTERVENTIONAL RADIOLOGY POST PROCEDURE NOTE Pre-Procedure Diagnosis: [ left pleural effusion] Post Procedure Diagnosis: Same. 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 Satya Johnson DO Procedure: [10 fr left chest tube/pleural drain placement ] Anesthesia: [1% lidocaine without epinephrine] Findings: [left chest tube in satisfactory position. no complications suggested. ] Estimated Blood Loss: Minimal (Less Than 10 mL). [ ] Specimen: None. Complications: None. Full report with procedural details to follow and will become available under the Radiology tab of Results Review. Please contact for any questions or concerns. _ Digitally Signed by SATYA JOHNSON DO on 10/21/2024 12:40 PM [facility] [id number] Pulmonary Consult note Date of Service 10/21/2024 Reason for Consultation Loculated pleural effusion Referring Physician Dr. Pascual History of Present Illness The patient is a very pleasant 89-year-old gentleman with history of coronary artery disease and aortic stenosis post CABG and AVR in 2019. He also has history of atrial fibrillation and HFpEF. The patient presents to the hospital in [place] with increasing shortness of breath for the last 10 days. This is not associate with any chest pain or cough or wheeze or sputum production or hemoptysis or fevers or chills. Also, no orthopnea or PND or leg swelling. Imaging shows bilateral pleural effusions, possibly loculated. [facility] is [facility] therapy. CT of the chest without contrast shows bilateral loculated effusions. The one on the right side is small and includes components in the minor and major fissures. However, on the left side the loculated fusion is much larger with the compressive atelectasis of the left lung. Appears to be partially loculated but part of it may be free-flowing. In addition, the CT shows evidence of mediastinal and hilar adenopathy that could be reactive. No pneumonia or masses. As mentioned he has history of bypass in 2019 with AVR at that time. He has history of HFpEF and atrial fibrillation he is on anticoagulation with Eliquis. He has history of hypertension and diabetesand CKD. He never smoked and he does not have any history of lung disease no history of cancer or PE or CVA. 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 Otherwise negative Physical Exam Vitals and Measurements T: 36.6 C (Oral) TMIN: 36.6 C (Oral) TMAX: 37.5 C (Oral) HR: 80 (Monitored) RR: 20 BP: 123/72 SpO2:94% Weight Dosing Weight: 88.6 kg (10/19/24) Very pleasant 89-year-old white gentleman who does not appear to be in acute distress. He lays comfortably in bed flat. Oxygen 2 L/min by nasal cannula. Neck supple. Chest shows a prior sternotomy. Auscultation reveals clear breath sounds anteriorly and decreased laterally on the left side. Heart is regular. Abdomen is soft and nontender and slightly distended. No definite masses. Extremities show no edema clubbing or cyanosis or skin rash. FREIGHT CONDUCTOR is nonfocal. Lab Results 10/21 06:21 WBC: 11.8 H Hgb: 11.7 L Hct: 34.5 L Platelet: 160 Neutrophil %: 80.1 H Glucose Level: 116 H Sodium Level: 135 L Potassium Level: 4.2 BUN: 19.0 Creatinine Lvl (s): 1.02 Imaging Results and Diagnostics CT of the chest without contrast as above Assessment/Plan 1. Large left-sided possibly loculated effusion with thickened pleura, likely chronic 2. Small right-sided pleural effusion with small component seen minor and major fissures 3. Likely reactive mediastinal/hilar adenopathy 4. Hypoxia secondary to large effusion 5. History of CAD. History of CABG and AVR 2019. HFpEF without acute exacerbation. Atrial fibrillation 6. History of diabetes and CKD and hypertension Recommendations: 1. IR placement of left-sided pigtail chest tube for drainage of effusion 2. Send fluid for analysis including cell count, chemistries, culture, and cytology 3. Continue nasal oxygen 4. No indication for antibiotics or steroids at this time 5. The patient has been seen by thoracic surgery Discussed with patient. He is willing to proceed. Will continue to follow Procedure/Surgical History CABG x 2 - Coronary artery bypass grafts x 2: 01/01/19 AVR - Aortic valve replacement: 01/01/19 Cardiac catheterization: 2017 Ankle fracture: 1992 Cataract extraction Medications Inpatient acetaminophen, 650 mg= 2 tab(s), Oral, q6hWA, PRN amiodarone, 400 mg= 2 tab(s), Oral, BID aspirin 81 mg oral delayed release tablet, 81 mg= 1 tab(s), Oral, qDay busPIRone, 10 mg= 1 tab(s), Oral, BID Dextrose 50% IV Push, 12.5 gram(s)= 25 mL, IV Push, AsDirected, PRN doxepin 100 mg oral capsule, 100 mg= 1 cap(s), Oral, qHS fenofibrate 160 mg oral tablet, 160 mg= 1 tab(s), Oral, qDayM furosemide, 40 mg= 1 tab(s), Oral, BID glipiZIDE 5 mg oral tablet, 10 mg= 2 tab(s), Oral, qAM HumaLOG 100 units/mL subcutaneous solution, Give 0-5 units/dose, Subcutaneous, TIDAC Lipitor, 40 mg= 1 tab(s), Oral, Daily melatonin, 3 mg= 1 tab(s), Oral, qHS, PRN melatonin, 3 mg= 1 tab(s), Oral, qHS, PRN metoprolol tartrate 25 mg oral tablet, 25 mg= 1 tab(s), Oral, BIDM traZODone, 100 mg= 1 tab(s), Oral, qHS Zofran, 4 mg= 2 mL, IV Push, q4h, PRN Home amiodarone 400 mg oral tablet, 400 mg= 1 tab(s), Oral, BID aspirin 81 mg oral delayed release tablet, 81 mg= 1 tab(s), Oral, qDay busPIRone 10 mg oral tablet, 10 mg= 1 tab(s), Oral, BID doxepin 100 mg oral capsule, 100 mg= 1 cap(s), Oral, qHS Eliquis 2.5 mg oral tablet, 2.5 mg= 1 tab(s), Oral, BID, 3 refills fenofibrate 160 mg oral tablet, 160 mg= 1 tab(s), Oral, qDayM furosemide 40 mg oral tablet, 40 mg= 1 tab(s), Oral, BID glipiZIDE 10 mg oral tablet, 10 mg= 1 tab(s), Oral, qAM Lipitor 40 mg oral tablet, 40 mg= 1 tab(s), Oral, Daily, 3 refills metoprolol tartrate 25 mg oral tablet, 25 mg= 1 tab(s), Oral, BIDM, 3 refills PreserVision, 1 tab(s), Oral, BID traZODone 100 mg oral tablet, 100 mg= 1 tab(s), Oral, qHS Tylenol 325 mg oral capsule, 650 mg, Oral, QID Allergies NKA Social History Alcohol - Denies Alcohol Use, 12/26/2018 Sexual - No Risk, 12/26/2018 Substance Abuse - Denies Substance Abuse, 12/26/2018 Tobacco - Denies Tobacco Use, 12/26/2018 Tobacco Use: Former smoker, quit more than 30 days ago. Type: Cigars., 12/26/2018 Family History Cancer: Daughter. HTN - Hypertension: Brother and Daughter. Stroke: Mother and Father. Health Status Family Member(s) Immunizations No qualifying data available. Digitally Signed by CARLOS KING MD on 10/21/2024 09:46 AM [id number] Note* Exam Date Time Procedure Performing Provider Status 10/20/24 12:[address] Thorax w/o Contrast A [facility] (Verified) [id number] ORIGINAL EXAMINATION: CT OF THE CHEST WITHOUT CONTRAST 10/20/2024 12:53 pm TECHNIQUE: CT of the chest was performed without the administration of intravenous contrast. Multiplanar reformatted images are provided for review. Automated exposure control, iterative reconstruction, and/or weight based adjustment of the mA/kV was utilized to reduce the radiation dose to as low as reasonably achievable. COMPARISON: Dissection exam December 29, 2018, chest x-ray October 20, 2024 HISTORY: ORDERING SYSTEM PROVIDED HISTORY: Reason for Exam: sob follow-up for pleural effusion pleural effusions, ?right lung mass FINDINGS: Mild degenerative changes are noted in the spine. No acute osseous abnormality is visible. Small scattered areas of pulmonary and pleural scarring are noted. Small to moderate left and small right pleural effusions are present. There is some loculation at the upper aspect of the right pleural effusion, and at the inferior aspect of the left effusion. Adjacent areas of atelectasis are also identified. At the perihilar right lung, there is a somewhat angular 8 mm pulmonary nodule with minimal adjacent ground-glass density. This is a new finding since the previous study. Multiple nodular densities are present at the posterior aspect of the right lower lobe, measuring up to 9 mm in size. There is no confirmation of a right-sided pulmonary mass. There is loculated fluid extending into the fissures which may give this appearance. There is some consolidation at the posterior aspect of the right lower lobe. No definite left lung infiltrates are seen. A small amount of left pleural fluid extends into the major fissure. Mild paratracheal adenopathy is evident and there is also right tracheobronchial angle and AP window adenopathy. Subcarinal adenopathy also seen. All of these findings are new since the previous study. Small sliding hiatal hernia noted. No additional contributory abnormality seen. IMPRESSION: 1. Bilateral pleural effusions with some loculation as described. On the right, a portion of the loculated fluid accounts for previously seen masslike density. 2. Somewhat nodular infiltrate at the posterior aspect of the right lower lobe. Atypical infectious and inflammatory etiologies are favored, including for the perihilar nodule. Consider 3 month follow-up study after treatment to reassess these findings. 3. Adenopathy in multiple areas, presumably reactive or hyperplastic. Attention should be given to this on follow-up as well. Interpreted by: Satya Long MD Preliminary Report By: Satya Long MD Electronically signed By Satya Long MD Dictated Date: 10/20/2024 1:16:20 PM Prelim Date: 10/20/2024 1:21:19 PM Sign Date: 10/20/2024 1:21:19 PM Ordering Provider: [facility]12-08-2024 Note* Exam Date Time Procedure Performing Provider Status 10/20/24 6:56 AM XR Chest 1 View Johan (Milady ifielian) [id number] ORIGINAL EXAMINATION: ONE XRAY VIEW OF THE CHEST 10/20/2024 6:56 am COMPARISON: None. HISTORY: ORDERING SYSTEM PROVIDED HISTORY: Reason for Exam: pleural effusions FINDINGS: 4.9 cm masslike region in the right mid lung is indeterminate. Hazy interstitial and alveolar opacities throughout the lungs bilaterally with small bilateral effusions. Mild cardiomegaly. Atherosclerotic calcification related ordered noted. No pneumothorax. IMPRESSION: Hazy interstitial and alveolar airspace disease bilaterally with small bilateral effusions. Findings could represent congestion/edema versus a developing infectious or inflammatory process. 4.9 cm masslike opacity in the right mid lung is indeterminate, CT thorax could be useful in further evaluation. Interpreted by: Cecille Hubbard MD Preliminary Report By: Cecille Hubbard MD Electronically signed By Cecille Hubbard MD Dictated Date: 10/20/2024 7:35:58 AM Prelim Date: 10/20/2024 7:40:49 AM Sign Date: 10/20/2024 7:40:49 AM Ordering Provider: [facility]12-07-2024 Cardiothoracic surgery Consult note Date of Service 10/19/2024 Reason for Consultation Bilateral loculated pleural effusions with hypoxia Referring Physician Dr. Dowd History of Present Illness This is a 89-year-old male with past medical history significant for HFpEF, paroxysmal atrial fibrillation on Eliquis, diabetes, coronary artery disease S/P CABG 01/01/2019, aortic stenosis S/P A 01/01/2019VR, and CKD II. He was transferred from [facility] for shortness of breath with exertion.He was recently hospitalized for shortness of breath and treated for CHF exacerbation and possible pneumonia. He was diuresed and given azithromycin. Echocardiogram at that time showed an EF of 55%. He was discharged with orders for a 30-day monitor over concern for PVCs and bradycardia but has notyet received the monitor. At home, shortness of breath symptoms did not improve. He would check hisoxygenation after walking and SaO2 would be around 85%. CTA of the chest 10/18 showed scarring of the lung bases both bronchiectasis. Bibasilar dependent atelectasis. Bilateral pleural effusion with loculation in the right major fissure as well as posterior medial aspect of the left lower lobe. He currently is in no respiratory distress. O2 per NC at 2L with SAO2 93%. Have been consulted to evaluate his bilateral loculated pleural effusions with hypoxia Review of Systems Constitutional: Denies fever, chills, change in weight or appetite, or fatigue HEENT: Denies blurry vision, dysphagia, wears glasses, edentulous Respiratory: Denies productive or nonproductive cough see HPI CV: Denies chest pain, syncope, PND, or orthopnea Vascular: Denies claudication, DVT, rest pain GI: Denies nausea, vomiting, constipation, diarrhea, or melena : Denies dysuria, nocturia, hematuria, frequency or incontinence Neuro: Denies weakness, seizures, tremors, memory loss or change in level consciousness Endo: Denies heat/cold intolerance, denies polyuria, polydipsia, polyphagia Chemo/oncology: Denies unusual bleeding bruising or anemia Muscular/skeletal: Denies arthralgia, back pain, myalgia or limited motion, uses a walker when awayfrom his house Psych: Denies anxiousness nervousness or depression Physical Exam Vitals and Measurements T: 37.0 C (Oral) HR: 87 (Monitored) RR: 18 BP: 135/63 SpO2: 93% HT: 172.7 cm WT: 88.6 kg BMI: 29.71 Weight Dosing Weight: 88.6 kg (10/19/24) Mentation: Alert and oriented x 4, appropriate HEENT: Atraumatic, normocephalic, PERRLA Heart: Irregular S1-S2, monitor atrial fibrillation Lungs: Bilateral, clear, respirations easy regular nonlabored, diminished in the bases, denies cough, O2 at 2 L per nasal cannula Abdomen: Soft, nontender, bowel sounds present Extremities: Bilateral mild lower leg edema left greater than the right, normal capillary refill, pulses +1/x 4 Skin: Right leg has old areas that are healed, skin very scaly Neuro: Cranial nerves II through XII intact Lab Results 10/19 14:27 WBC: 11.0 H Hgb: 13.3 Hct: 39.5 L Platelet: 169 Neutrophil %: 81.3 H Glucose Level: 165 H Sodium Level: 133 L Potassium Level: 4.1 BUN: 16.0 Creatinine Lvl (s): 0.83 Imaging Results and Diagnostics CTA-No images Available here just written report on chart Assessment/Plan 1. Acute hypoxic respiratory failure 2. Paroxysmal atrial fibrillation Trev is currently on home 3. Heart failure with preserved ejection fraction 4. Diabetes 5. Coronary artery disease S/P CABG 2018 6. Aortic stenosis S/P AVR 2018 7. CKD (chronic kidney disease) stage 2, GFR 60-89 ml/min Surgical evaluation We will continue to follow Procedure/Surgical History CABG x 2 - Coronary artery bypass grafts x 2: 01/01/19 AVR - Aortic valve replacement: 01/01/19 Cardiac catheterization: 2017 Ankle fracture: 1992 Cataract extraction Medications Inpatient acetaminophen, 650 mg= 2 tab(s), Oral, q6hWA, PRN amiodarone, 400 mg= 2 tab(s), Oral, BID aspirin 81 mg oral delayed release tablet, 81 mg= 1 tab(s), Oral, qDay busPIRone, 10 mg= 1 tab(s), Oral, BID Dextrose 50% IV Push, 12.5 gram(s)= 25 mL, IV Push, AsDirected, PRN doxepin 100 mg oral capsule, 100 mg= 1 cap(s), Oral, qHS fenofibrate 160 mg oral tablet, 160 mg= 1 tab(s), Oral, qDayM glipiZIDE 5 mg oral tablet, 10 mg= 2 tab(s), Oral, qAM HumaLOG 100 units/mL subcutaneous solution, Give 0-5 units/dose, Subcutaneous, TIDAC Lipitor, 40 mg= 1 tab(s), Oral, Daily melatonin, 3 mg= 1 tab(s), Oral, qHS, PRN melatonin, 3 mg= 1 tab(s), Oral, qHS, PRN metoprolol tartrate 25 mg oral tablet, 25 mg= 1 tab(s), Oral, BIDM traZODone, 100 mg= 1 tab(s), Oral, qHS Zofran, 4 mg= 2 mL, IV Push, q4h, PRN Home amiodarone 400 mg oral tablet, 400 mg= 1 tab(s), Oral, BID aspirin 81 mg oral delayed release tablet, 81 mg= 1 tab(s), Oral, qDay busPIRone 10 mg oral tablet, 10 mg= 1 tab(s), Oral, BID doxepin 100 mg oral capsule, 100 mg= 1 cap(s), Oral, qHS Eliquis 2.5 mg oral tablet, 2.5 mg= 1 tab(s), Oral, BID, 3 refills fenofibrate 160 mg oral tablet, 160 mg= 1 tab(s), Oral, qDayM glipiZIDE 10 mg oral tablet, 10 mg= 1 tab(s), Oral, qAM Lipitor 40 mg oral tablet, 40 mg= 1 tab(s), Oral, Daily, 3 refills metoprolol tartrate 25 mg oral tablet, 25 mg= 1 tab(s), Oral, BIDM, 3 refills PreserVision, 1 tab(s), Oral, BID traZODone 100 mg oral tablet, 100 mg= 1 tab(s), Oral, qHS Tylenol 325 mg oral capsule, 650 mg, Oral, QID Allergies NKA Social History Quit smoking cigars 20 years ago Denies alcohol usage Denies drug usage 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 HTN - Hypertension: Brother and Daughter. Stroke: Mother and Father. Health Status Family Member(s) Immunizations No qualifying data available. This encounter independently took approximately 45 minutes obtaining past medical history in the EMR, reviewing recent labs and tests, conducting face to face visit and examination with patient at the bedside, and documenting details of today's visit. Digitally Signed by CRYSTAL VERGARA on 10/19/2024 04:35 PM [facility] [id number] Evaluation + Plan noteExtracted from: Title:History and Physical Author:TERA MCCAULEY ON Date:10/19/24 Acute hypoxic respiratory fa ilure. Patient with desaturation to 85% at outside facility. Presently on 2 L NC at 94%. Admitted for hypoxia. -Continue supplemental O2 and wean as tolerated. Bilateral loculated pleural effusions. Patient was transferred to our facility for evaluation by cardiothoracic surgery. Consult cardiothoracic surgery Will monitor for today on stepdown. If no increased oxygen requirement or arrhythmia, transition to regular floor tomorrow. Paroxysmal atrial fibrillation. The patient is noted to be in sinus rhythm presently. He is pending evaluation by cardiothoracic surgery. Will pause home Eliquis pending their input. If no procedure planned, resume home Eliquis. Continue metoprolol with hold parameters. DM2. Glucose was elevated in the mid 100s at outside ER. Continue glipizide. Depression/insomnia. Chronic. Continue doxepin and trazodone. Heart failure with recovered ejection fraction. He does not appear to be on guideline directed medical therapy. Above effusions may be related to CHF. Recently was admitted for diuresis at [place]. He has 1+ pitting edema at the level of the midshin. On discharge, consider initiating GDMT or connecting patient with cardiology to have this started. Monitor volume status. Will administer Lasix if patient becomes volume overloaded. Presently has no JVD. DVT prophylaxis: SCDs Note dictated using voice recognition software and may contain typographical errors. [facility] 12-07-2024 Note* Exam Date Time Procedure Performing Provider Status 10/19/24 12:38 PM Electrocardiogram - EKG - CV RUIZ ANGULO MD; Auth (Verified) ECG Final Report ATRIAL FIBRILLATION VENTRICULAR PREMATURE COMPLEX, COUPLETS RBBB AND LAFB Electronic Signature: RUIZ GARDNER MD 10/20/2024 15:04:24 [facility] [id number] History and physical note Date of Service 10/19/24 Chief Complaint SOB History of Present Illness 89-year-old with PMHx CHF paroxysmal A-fib on Eliquis, DM, CAD s/p CABG 01/01/2019, CKD is admitted from [place] ED for SOB. She was recently admitted to outside hospital on 10/13/2024 for shortness ofbreath and treated for CHF exacerbation and possible pneumonia. Received Lasix and azithromycin. Echo showed EF 55%, stage III diastolic dysfunction, high left atrial pressures. Left with 30-day event monitor which showed concerns for PVCs and mild bradycardia. Finished azithromycin. Exertional dyspnea persisted and he was found to desaturate to 85% on ambulation. Upon arrival to our facility the patient is resting comfortably. Endorses that he has been short ofbreath over the past 10 days. Has not improved after being discharged from [facility]. Duringthat admission he was treated for suspected pneumonia and discharged on azithromycin. He does not wear home O2 at baseline. Noted that he desaturated in the emergency department. No prior tobacco history. No fever, cough, lower extremity edema, weight gain, orthopnea. He has had a thoracentesis in 2019. Course at [place] ED and prior hospitalization per documentation from ED physician: He had a CTA on 10/11/2024 which showed bilateral loculated pleural effusions. No PE. Repeat CTA was ordered in the ED. CBC showed normal hemoglobin, platelet count, WBCs. Hemoglobin 13.2. CTA from 10/18/2024 showed scarring of the lung bases with bronchiectasis. Bibasilar dependent atelectasis. Bilateral pleural effusions are slightly worse in the left side with focal loculation in theright major fissure as well as the posterior medial aspect of the left lower lobe. BMP with glucose 127, sodium 131. Chloride 95. Initially blood pressure was low 90s over 70s. Subsequently was stable and 140s systolic. Noted to be tachypneic up to 26. I was told that reason for transfer is for evaluation by specialist pulmonology and potentially cardiothoracic. Physical Exam Vitals and Measurements T: 37.0 C (Oral) HR: 90 RR: 18 BP: 145/85 SpO2: 94% HT: 172.7 cm WT: 88.6 kg BMI: 29.71 Weight Dosing Weight: 88.6 kg (10/19/24) GA: Alert and oriented x3, no acute distress Abd: Not distended HEENT: NCAT, sclera anicteric, oral mucosa moist Pulmonary: RML and bibasilar crackles appreciated. No cough or wheeze. He is not tachypneic. Speaking in full sentences.. Bilateral lower extremity 1+ pitting edema at the level of the midshin. MSK: No gross deformities Cardiovascular: Not tachycardic Skin: Warm and dry Neuro: Spontaneous movement of all extremities, cranial nerves II through XII grossly normal Psychiatric: Thought content, associations, attention are all normal. Assessment/Plan Acute hypoxic respiratory failure. Patient with desaturation to 85% at outside facility. Presently on 2 L NC at 94%. Admitted for hypoxia. -Continue supplemental O2 and wean as tolerated. Bilateral loculated pleural effusions. Patient was transferred to our facility for evaluation by cardiothoracic surgery. Consult cardiothoracic surgery Will monitor for today on stepdown. If no increased oxygen requirement or arrhythmia, transition toregular floor tomorrow. Paroxysmal atrial fibrillation. The patient is noted to be in sinus rhythm presently. He is pendingevaluation by cardiothoracic surgery. Will pause home Eliquis pending their input. If no procedure planned, resume home Eliquis. Continue metoprolol with hold parameters. DM2. Glucose was elevated in the mid 100s at outside ER. Continue glipizide. Depression/insomnia. Chronic. Continue doxepin and trazodone. Heart failure with recovered ejection fraction. He does not appear to be on guideline directed medical therapy. Above effusions may be related to CHF. Recently was admitted for diuresis at [place]. He has 1+ pitting edema at the level of the midshin. On discharge, consider initiating GDMT or connecting patient with cardiology to have this started. Monitor volume status. Will administer Lasix if patient becomes volume overloaded. Presently has noJVD. DVT prophylaxis: SCDs Note dictated using voice recognition software and may contain typographical errors. Procedure/Surgical History CABG x 2 - Coronary artery bypass grafts x 2: 01/01/19 AVR - Aortic valve replacement: 01/01/19 Cardiac catheterization: 2017 Ankle fracture: 1992 Cataract extraction Medications Home Medications (12) Active amiodarone 400 mg oral tablet 400 mg = 1 tab(s), Oral, BID aspirin 81 mg oral delayed release tablet 81 mg = 1 tab(s), Oral, qDay busPIRone 10 mg oral tablet 10 mg = 1 tab(s), Oral, BID doxepin 100 mg oral capsule 100 mg = 1 cap(s), Oral, qHS Eliquis 2.5 mg oral tablet 2.5 mg = 1 tab(s), Oral, BID fenofibrate 160 mg oral tablet 160 mg = 1 tab(s), Oral, qDayM glipiZIDE 10 mg oral tablet 10 mg = 1 tab(s), Oral, qAM Lipitor 40 mg oral tablet 40 mg = 1 tab(s), Oral, Daily metoprolol tartrate 25 mg oral tablet 25 mg = 1 tab(s), Oral, BIDM PreserVision 1 tab(s), Oral, BID traZODone 100 mg oral tablet 100 mg = 1 tab(s), Oral, qHS Tylenol 325 mg oral capsule 650 mg, Oral, QID Allergies NKA Social History Alcohol - Denies Alcohol Use, 12/26/2018 Sexual - No Risk, 12/26/2018 Substance Abuse - Denies Substance Abuse, 12/26/2018 Tobacco - Denies Tobacco Use, 12/26/2018 Tobacco Use: Former smoker, quit more than 30 days ago. Type: Cigars., 12/26/2018 Family History Cancer: Daughter. HTN - Hypertension: Brother and Daughter. Stroke: Mother and Father. Health Status Family Member(s) Immunizations No qualifying data available. Code Status No qualifying data available. Digitally Signed by NAOMI MCCAULEY MD on 10/19/2024 11:03 AM [facility] [id number] Telephone encounter Note* Telephone Encounter - Maria Luisa Rogers RN - 10/18/2024 8:22 AM EST Daughter (Josie) calls to report that patient is SOB and his pulse ox is dipping into the low 80's. Patient not currently on oxygen. She reports this is how patient was prior to last hospital episode. Asking if he should come in for appointment of take him to the ER. Per nurse triage protocol recommended ER. Daughter to take patient to ER. Appt cancelled. Daughter will call back to reschedule. Maria Luisa Rogers RN [facility]12-06-2024 Miscellaneous Notes* Telephone Encounter - Maria Luisa Rogers RN - 10/18/2024 8:22 AM EST Daughter (Josie) calls to report that patient is SOB and his pulse ox is dipping into the low 80's. Patient not currently on oxygen. She reports this is how patient was prior to last hospital episode. Asking if he should come in for appointment of take him to the ER. Per nurse triage protocol recommended ER. Daughter to take patient to ER. Appt cancelled. Daughter will call back to reschedule. Maria Luisa Rogers RN documented in [facility]12[facility]-2024 [facility]11-29-2024 History of Present illness Narrative* Luciana Delgadillo RT(R) - 10/11/2024 11:00 AM EST Radiology Service Progress Note PATIENT NAME: Osvaldo Lucio DATE OF SERVICE: October 11, 2024 TIME: 10:46 AM PATIENT IDENTITY VERIFICATION COMPLETED USING TWO (2) IDENTIFIERS: Name and Date of confirmedby patient verbally. FALL SCREENING: Has the patient had 2 falls in the last year or 1 fall with injury or currently using an Ambulatory Assistive Device (Walker, Cane, Wheelchair, Crutches, etc.)? No PATIENT GENDER DATA: Male PATIENT RELEVANT IMPLANT DATA REVIEWED: Yes PATIENT PRESENTS WITH AN IMPLANTABLE OR ATTACHED TRANSPORT MANAGER: No RADIOLOGY DEPARTMENT: General X-ray: Exam(s) Completed: Chest X-Ray PERIPHERAL IV DATA: Not applicable SIGNED BY: RACHEL Jensen) October 11, 2024 10:46 AM documented in this encounterCrystal [facility]11-29-2024 NoteHNO ID: [id number] Author: LUCIANA DELGADILLO RT (R) Service: ? Author Type: [employer] Systems Engineer Type: Progress Notes Filed: 10/11/2024 10:55 Note Text: Radiology Service Progress Note PATIENT NAME: Osvaldo Lucio DATE OF SERVICE: October 11, 2024 TIME: 10:46 AM PATIENT IDENTITY VERIFICATION COMPLETED USING TWO (2) IDENTIFIERS: Name and Date of confirmed by patient verbally. FALL SCREENING: Has the patient had 2 falls in the last year or 1 fall with injury or currently using an Ambulatory Assistive Device (Walker, Cane, Wheelchair, Crutches, etc.)? No PATIENT GENDER DATA: Male PATIENT RELEVANT IMPLANT DATA REVIEWED: Yes PATIENT PRESENTS WITH AN IMPLANTABLE OR ATTACHED TRANSPORT MANAGER: No RADIOLOGY DEPARTMENT: General X-ray: Exam(s) Completed: Chest X-Ray PERIPHERAL IV DATA: Not applicable SIGNED BY: RACHEL Jensen) October 11, 2024 10:46 [facility]11-29-2024 NoteHNO ID: [id number] Author: KAMERON KELLEY MD Service: ? Author Type: Physician Type: Progress Notes Filed: 10/11/2024 12:46 Note Text: Patient presents with: Cough: Chest congestion, wheezing, SOB x 2 weeks HPI: Coughing for 2 weeks. Initial head cold is improving but he has worsening cough, wheezing, and shortness of breath. Positive symptoms: Cough, Shortness of breath, Wheezing, Nasal Congestion, Rhinorrhea, chills, increased chronic intermittent right leg swelling, Negative symptoms: Fever, Nausea, Vomiting, Diarrhea, Chest pain, heart palpitations or racing, OTC: tylenol, flonase He has had a sore on the lower lip for about 1 month. It bleeds occasionally. 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 He has since 2006 had A1C [...] not stated as uncontrolled Unspecified essential hypertension MEDICATIONS: Current Outpatient Medications Medication Sig potassium chloride (K-TAB) 10 mEq tablet TAKE 2 (TWO) TABLETS BY MOUTH EVERY DAY insulin 50/50 lispro protamine-lispro units/mL (HUMALOG MIX 50-50 KWIKPEN) 100 unit/mL (50-50) pen Inject 30 units in the morning and 28 Units in the evenings with meals. Per Dr. Lo tamsulosin (FLOMAX) 0.4 mg Take 2 capsules by mouth once daily. finasteride (PROSCAR) 5 mg tablet Take 1 tablet by mouth once daily. blood sugar diagnostic (BLOOD GLUCOSE TEST) test strip Test blood sugar(s) 2 times daily. Dx: Type 2 DM - Uncontrolled E11.65 Insulin: No doxepin capsule 50 mg Take 1 capsule by mouth daily at bedtime. [facility] mirtazapine (REMERON) 15 mg tablet Take 1 tablet by mouth daily at bedtime. [facility]. furosemide (LASIX) 40 mg tablet Take 40 mg by mouth two times a day. clonazePAM (KLONOPIN) 0.5 mg tablet Take 0.5 mg by mouth once daily as needed. busPIRone (BUSPAR) 15 mg tablet Take 1 tablet by mouth every 12 hours. Lancets lancets Test blood sugar(s) 2 times daily. Dx: Type 2 DM - Uncontrolled E11.65 Insulin: No melatonin 5 mg tablet Take 1 tablet by mouth daily at bedtime. amLODIPine (NORVASC) 10 mg tablet Take 1 tablet by mouth once daily. lisinopril (ZESTRIL, PRINIVIL) 20 mg tablet Take 1 tablet by mouth twice daily. metoprolol tartrate, short acting, (LOPRESSOR) 25 mg tablet Take 0.5 tablets by mouth twice daily. ferrous sulfate 325 mg (65 mg iron) tablet Take 325 mg by mouth twice daily. multivitamin with minerals (MULTI-VITAMIN W/MINERALS ORAL) Take 1 tablet by mouth once daily. apixaban (ELIQUIS) 2.5 mg tab tab(s) Take 1 tablet by mouth twice daily. atorvastatin (LIPITOR) 40 mg tablet Take 1 tablet by mouth once daily. No current facility-administered medications for this visit. ALLERGIES: ALLERGIES No Known Allergies VITALS: BP 158/71 Pulse 77 Temp 36.5 ?C (97.7 ?F) Resp 22 Wt 93.4 kg (205 lb 14.6 oz) SpO2 96% BMI 30.85 kg/m? Last 4 Encounter Wt Readings: Date: Wt: 10/11/2024 93.4 kg (205 lb 14.6 oz) 07/02/2024 86.7 kg (191 lb 2.2 oz) 03/04/2024 90.2 kg (198 lb 12.8 oz) 01/02/2024 87.1 kg (192 lb) PHYSICAL EXAM: GEN: Pleasant, in no acute distress. HEENT: PERRL, EOMI, conjunctiva clear Ears: canals clear. TMs without erythema, bulge, or effusion Sinuses: non-tender frontal sinus, non-tender maxillary sinuses LIP: right mid lower lip has 7mm irregular raised pigmented eschar lesion at the vermilion border Throat: moist mucous membranes, no erythema, no exudate Neck: supple, no thyromegaly, no lymphadenopathy HEART: normal rate, irregularly irregular rhythm, no murmurs LUNGS: bilateral wheezes and crackles, no increased WOB at rest but is winded after ambulation EXT: 1+ right lower leg edema with chronic stasis changes. Latest Ref Rng 12/05/2023 Hemoglobin A1C 4.3 - 5.6 % 6.3 (H) ASSESSMENT/PLAN: 1. Shortness of breath - ICD9: 786.05, ICD10: R06.02 (primary diagnosis) 2. Subacu (more content not included)...[facility]11-29-2024 History of Present illness Narrative* Kameron Kelley MD - 10/11/2024 10:29 AM EST Patient presents with: Cough: Chest congestion, wheezing, SOB x 2 weeks HPI: Coughing for 2 weeks. Initial head cold is improving but he has worsening cough, wheezing, and shortness of breath. Positive symptoms: Cough, Shortness of breath, Wheezing, Nasal Congestion, Rhinorrhea, chills, increased chronic intermittent right leg swelling, Negative symptoms: Fever, Nausea, Vomiting, Diarrhea, Chest pain, heart palpitations or racing, OTC: tylenol, flonase He has had a sore on the lower lip for about 1 month. It bleeds occasionally. PAST MEDICAL HISTORY Diagnosis Date Acute on chronic diastolic (congestive) heart failure ([facility]) 05/27/2019 Aortic stenosis 08/23/2012 Aortic valve replaced 01/01/2019 Benign prostatic hyperplasia with urinary frequency Bipolar disorder, unspecified (HCC) BPH with urinary obstruction Chronic kidney disease (CKD), stage III (moderate) ([facility]) 03/12/2010 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) 07/30/2015 Dysuria Essential hypertension Frequency of urination Hyperlipidemia cholesterol 197 08/27/2012 [facility] Impaired glucose metabolism HGBA1C 6.1 08/27/2012 [facility]. He has since 2006 had A1C [...] not stated as uncontrolled Unspecified essential hypertension MEDICATIONS: Current Outpatient Medications Medication Sig potassium chloride (K-TAB) 10 mEq tablet TAKE 2 (TWO) TABLETS BY MOUTH EVERY DAY insulin 50/50 lispro protamine-lispro units/mL (HUMALOG MIX 50-50 KWIKPEN) 100 unit/mL (50-50) pen Inject 30 units in the morning and 28 Units in the evenings with meals. Per Dr. Lo tamsulosin (FLOMAX) 0.4 mg Take 2 capsules by mouth once daily. finasteride (PROSCAR) 5 mg tablet Take 1 tablet by mouth once daily. blood sugar diagnostic (BLOOD GLUCOSE TEST) test strip Test blood sugar(s) 2 times daily. Dx: Type 2 DM - Uncontrolled E11.65 Insulin: No doxepin capsule 50 mg Take 1 capsule by mouth daily at bedtime. [facility]. mirtazapine (REMERON) 15 mg tablet Take 1 tablet by mouth daily at bedtime. [facility]. furosemide (LASIX) 40 mg tablet Take 40 mg by mouth two times a day. clonazePAM (KLONOPIN) 0.5 mg tablet Take 0.5 mg by mouth once daily as needed. busPIRone (BUSPAR) 15 mg tablet Take 1 tablet by mouth every 12 hours. Lancets lancets Test blood sugar(s) 2 times daily. Dx: Type 2 DM - Uncontrolled E11.65 Insulin: No melatonin 5 mg tablet Take 1 tablet by mouth daily at bedtime. amLODIPine (NORVASC) 10 mg tablet Take 1 tablet by mouth once daily. lisinopril (ZESTRIL, PRINIVIL) 20 mg tablet Take 1 tablet by mouth twice daily. metoprolol tartrate, short acting, (LOPRESSOR) 25 mg tablet Take 0.5 tablets by mouth twice daily. ferrous sulfate 325 mg (65 mg iron) tablet Take 325 mg by mouth twice daily. multivitamin with minerals (MULTI-VITAMIN W/MINERALS ORAL) Take 1 tablet by mouth once daily. apixaban (ELIQUIS) 2.5 mg tab tab(s) Take 1 tablet by mouth twice daily. atorvastatin (LIPITOR) 40 mg tablet Take 1 tablet by mouth once daily. No current facility-administered medications for this visit. ALLERGIES: ALLERGIES No Known Allergies VITALS: BP 158/71 Pulse 77 Temp 36.5 C (97.7 F) Resp 22 Wt 93.4 kg (205 lb 14.6 oz) SpO2 96% BMI 30.85 kg/m Last 4 Encounter Wt Readings: Date: Wt: 10/11/2024 93.4 kg (205 lb 14.6 oz) 07/02/2024 86.7 kg (191 lb 2.2 oz) 03/04/2024 90.2 kg (198 lb 12.8 oz) 01/02/2024 87.1 kg (192 lb) PHYSICAL EXAM: GEN: Pleasant, in no acute distress. HEENT: PERRL, EOMI, conjunctiva clear Ears: canals clear. TMs without erythema, bulge, or effusion Sinuses: non-tender frontal sinus, non-tender maxillary sinuses LIP: right mid lower lip has 7mm irregular raised pigmented eschar lesion at the vermilion border Throat: moist mucous membranes, no erythema, no exudate Neck: supple, no thyromegaly, no lymphadenopathy HEART: normal rate, irregularly irregular rhythm, no murmurs LUNGS: bilateral wheezes and crackles, no increased WOB at rest but is winded after ambulation EXT: 1+ right lower leg edema with chronic stasis changes. Latest Ref Rng 12/05/2023 Hemoglobin A1C 4.3 - 5.6 % 6.3 (H) ASSESSMENT/PLAN: 1. Shortness of breath - ICD9: 786.05, ICD10: R06.02 (primary diagnosis) 2. Subacute cough - ICD9: 786.2, ICD10: R05.2 3. Acute on chronic diastolic (congestive) heart failure ([facility]CC) - ICD9: 428.33, 428.0, ICD10: I50.33 - XR CHEST 2V FRONTAL/LAT Lungs and pleura: There are multiple hazy, patchy or nodular opacities in the bilateral mid to lower lung zones. Bilateral small pleural effusions are demonstrated, with fluid extending to the major fissure. No mass lesion identified. No pneumothorax. IMPRESSION: Findings are suggestive of pulmonary edema versus multifocal pneumonia. Please clinically correlate. Up 15# from June. Recent URI symptoms. Clinically CHF vs pneumonia. Further evaluation with stat labs and possible admission for treatment. 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 4. 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 He has had skin cancer removed by Michelle Shah. He is able to repeat back that the lesion needs further evaluation within the next couple weeks and he will schedule with dermatology. Kameron Kelley MD [facility] NoteHNO ID: [id number] Author: JEREMI MOREL MD Service: ? Author Type: Physician Type: Progress Notes Filed: 07/02/2024 09:04 Note Text: This note was created using [email or web address]. Subjective Osvaldo Lucio is a 89 year old male. He had no concerns. His diabetes mellitus was controlled. He just saw [facility]. He will see Dr. Garcia for foot care tomorrow. Bipolar mood disorder was controlled and [facility] were unchanged. Review of Systems Constitutional: Negative for fatigue and fever. Respiratory: Negative for cough and shortness of breath. Cardiovascular: Negative for chest pain, palpitations and leg swelling. Neurological: Negative for dizziness and headaches. ACTIVE PROBLEM LIST Essential Hypertension Hyperlipidemia Bipolar [...] Bmi 30-34.9 Personal History of Skin Cancer Pulmonary Hypertension (Hcc) Social History Tobacco Use Smoking status: Former Types: Cigars Smokeless tobacco: Never Vaping Use Vaping status: Never Used Substance Use Topics Alcohol use: Not Currently Comment: Quit Drug use: Never Current Outpatient Medications Medication Sig potassium chloride (K-TAB) 10 mEq tablet TAKE 2 (TWO) TABLETS BY MOUTH EVERY DAY insulin 50/50 lispro protamine-lispro units/mL (HUMALOG MIX 50-50 KWIKPEN) 100 unit/mL (50-50) pen Inject 30 units in the morning and 28 Units in the evenings with meals. Per Dr. Lo tamsulosin (FLOMAX) 0.4 mg Take 2 capsules by mouth once daily. finasteride (PROSCAR) 5 mg tablet Take 1 tablet by mouth once daily. blood sugar diagnostic (BLOOD GLUCOSE TEST) test strip Test blood sugar(s) 2 times daily. Dx: Type 2 DM - Uncontrolled E11.65 Insulin: No doxepin capsule 50 mg Take 1 capsule by mouth daily at bedtime. [facility]. mirtazapine (REMERON) 15 mg tablet Take 1 tablet by mouth daily at bedtime. [facility]. furosemide (LASIX) 40 mg tablet Take 40 mg by mouth two times a day. clonazePAM (KLONOPIN) 0.5 mg tablet Take 0.5 mg by mouth once daily as needed. busPIRone (BUSPAR) 15 mg tablet Take 1 tablet by mouth every 12 hours. Lancets lancets Test blood sugar(s) 2 times daily. Dx: Type 2 DM - Uncontrolled E11.65 Insulin: No melatonin 5 mg tablet Take 1 tablet by mouth daily at bedtime. amLODIPine (NORVASC) 10 mg tablet Take 1 tablet by mouth once daily. lisinopril (ZESTRIL, PRINIVIL) 20 mg tablet Take 1 tablet by mouth twice daily. metoprolol tartrate, short acting, (LOPRESSOR) 25 mg tablet Take 0.5 tablets by mouth twice daily. ferrous sulfate 325 mg (65 mg iron) tablet Take 325 mg by mouth twice daily. multivitamin with minerals (MULTI-VITAMIN W/MINERALS ORAL) Take 1 tablet by mouth once daily. apixaban (ELIQUIS) 2.5 mg tab tab(s) Take 1 tablet by mouth twice daily. atorvastatin (LIPITOR) 40 mg tablet Take 1 tablet by mouth once daily. No current facility-administered medications for this visit. Objective BP 126/68 (BP Site: Left Arm, BP Position: Sitting, BP Cuff Size: Large Adult) Pulse 72 Temp 36.6 ?C (97.9 ?F) (Temporal) Resp 20 Wt 86.7 kg (191 lb 2.2 oz) BMI 28.64 kg/m? Physical Exam Constitutional: Appearance: He is not ill-appearing. HENT: Head: Normocephalic. Cardiovascular: Rate and Rhythm: Normal rate. Rhythm irregular. Heart sounds: No murmur heard. No gallop. Pulmonary: Breath sounds: Normal breath sounds. Musculoskeletal: Right lower leg: No edema. Left lower leg: No edema. Neurological: Mental Status: He is alert. Gait: Gait normal. Psychiatric: Mood and Affect: Mood normal. Behavior: Behavior normal. Assessment and Plan 1. Type 2 diabetes mellitus with stage 3a chronic kidney disease, with long-term current use of insulin (HCC) - ICD9: 250.40, 585.3, V58.67, ICD10: E11.22, N18.31, Z79.4 (primary diagnosis) - Controlled - Continue current medications per [facility]. - COMPREHENSIVE METABOLIC PANEL - ALBUMIN/CREATININE RATIO, URINE - HEMOGLOBIN A1C 2. Screening for depression - ICD9: V79.0, ICD10: Z13.31 Stable. - DEPRESSION SCREENING 3. Encounter for screening examination for other mental health and behavioral disorders - ICD9: V79.8, ICD10: Z13.39 Stable. - ANXIETY SCREENING 4. Bipolar affective disorder, current episode mixed, current episode severity unspecified (HCC) - ICD9: 296.60, ICD10: F31.60 Controlled. 5. Hyperlipidemia, unspecified hyperlipidemia type - ICD9: 272.4, ICD10: E78.5 - Controlled - Continue current medicat (more content not included)...[facility]08-20-2024 History of Present illness Narrative* Jeremi Morel MD - 07/02/2024 8:46 AM EDT This note was created using NoteWriter. Subjective Osvaldo Lucio is a 89 year old male. He had no concerns. His diabetes mellitus was controlled. He just saw [facility]. He will see Dr. Garcia for foot care tomorrow. Bipolar mood disorder was controlled and medications [facility] were unchanged. Review of Systems Constitutional: Negative for fatigue and fever. Respiratory: Negative for cough and shortness of breath. Cardiovascular: Negative for chest pain, palpitations and leg swelling. Neurological: Negative for dizziness and headaches. 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 Paroxysmal Atrial Fibrillation ([facility]) Acute On Chronic Diastolic (Congestive) Heart Failure ([facility]) Bph With Urinary Obstruction Obesity, Class I, Bmi 30-34.9 Personal History of Skin Cancer Pulmonary Hypertension ([facility]) Social History Tobacco Use Smoking status: Former Types: Cigars Smokeless tobacco: Never Vaping Use Vaping status: Never Used Substance Use Topics Alcohol use: Not Currently Comment: Quit Drug use: Never Current Outpatient Medications Medication Sig potassium chloride (K-TAB) 10 mEq tablet TAKE 2 (TWO) TABLETS BY MOUTH EVERY DAY insulin 50/50 lispro protamine-lispro units/mL (HUMALOG MIX 50-50 KWIKPEN) 100 unit/mL (50-50) pen Inject 30 units in the morning and 28 Units in the evenings with meals. Per Dr. Lo tamsulosin (FLOMAX) 0.4 mg Take 2 capsules by mouth once daily. finasteride (PROSCAR) 5 mg tablet Take 1 tablet by mouth once daily. blood sugar diagnostic (BLOOD GLUCOSE TEST) test strip Test blood sugar(s) 2 times daily. Dx: Type 2 DM - Uncontrolled E11.65 Insulin: No doxepin capsule 50 mg Take 1 capsule by mouth daily at bedtime. [facility]. mirtazapine (REMERON) 15 mg tablet Take 1 tablet by mouth daily at bedtime. [facility]. furosemide (LASIX) 40 mg tablet Take 40 mg by mouth two times a day. clonazePAM (KLONOPIN) 0.5 mg tablet Take 0.5 mg by mouth once daily as needed. busPIRone (BUSPAR) 15 mg tablet Take 1 tablet by mouth every 12 hours. Lancets lancets Test blood sugar(s) 2 times daily. Dx: Type 2 DM - Uncontrolled E11.65 Insulin: No melatonin 5 mg tablet Take 1 tablet by mouth daily at bedtime. amLODIPine (NORVASC) 10 mg tablet Take 1 tablet by mouth once daily. lisinopril (ZESTRIL, PRINIVIL) 20 mg tablet Take 1 tablet by mouth twice daily. metoprolol tartrate, short acting, (LOPRESSOR) 25 mg tablet Take 0.5 tablets by mouth twice daily. ferrous sulfate 325 mg (65 mg iron) tablet Take 325 mg by mouth twice daily. multivitamin with minerals (MULTI-VITAMIN W/MINERALS ORAL) Take 1 tablet by mouth once daily. apixaban (ELIQUIS) 2.5 mg tab tab(s) Take 1 tablet by mouth twice daily. atorvastatin (LIPITOR) 40 mg tablet Take 1 tablet by mouth once daily. No current facility-administered medications for this visit. Objective BP 126/68 (BP Site: Left Arm, BP Position: Sitting, BP Cuff Size: Large Adult) Pulse 72 Temp 36.6 C (97.9 F) (Temporal) Resp 20 Wt 86.7 kg (191 lb 2.2 oz) BMI 28.64 kg/m Physical Exam Constitutional: Appearance: He is not ill-appearing. HENT: Head: Normocephalic. Cardiovascular: Rate and Rhythm: Normal rate. Rhythm irregular. Heart sounds: No murmur heard. No gallop. Pulmonary: Breath sounds: Normal breath sounds. Musculoskeletal: Right lower leg: No edema. Left lower leg: No edema. Neurological: Mental Status: He is alert. Gait: Gait normal. Psychiatric: Mood and Affect: Mood normal. Behavior: Behavior normal. Assessment and Plan 1. Type 2 diabetes mellitus with stage 3a chronic kidney disease, with long-term current use of insulin (HCC) - ICD9: 250.40, 585.3, V58.67, ICD10: E11.22, N18.31, Z79.4 (primary diagnosis) - Controlled - Continue current medications per [facility]. - COMPREHENSIVE METABOLIC PANEL - ALBUMIN/CREATININE RATIO, URINE - HEMOGLOBIN A1C 2. Screening for depression - ICD9: V79.0, ICD10: Z13.31 Stable. - DEPRESSION SCREENING 3. Encounter for screening examination for other mental health and behavioral disorders - ICD9: V79.8, ICD10: Z13.39 Stable. - ANXIETY SCREENING 4. Bipolar affective disorder, current episode mixed, current episode severity unspecified (HCC) - ICD9: 296.60, ICD10: F31.60 Controlled. 5. Hyperlipidemia, unspecified hyperlipidemia type - ICD9: 272.4, ICD10: E78.5 - Controlled - Continue current medications - LIPID PANEL BASIC Jeremi Morel MD [facility] note* Diagnosis Type 2 diabetes mellitus with stage 3a chronic kidney disease, with long-term current use of insulin (HCC)- Primary Screening for depression Encounter for screening examination for other mental health and behavioral disorders Bipolar affective disorder, current episode mixed, current episode severity unspecified (HCC) Hyperlipidemia, unspecified hyperlipidemia type documented in this encounter [facility]08-02-[facility] Telephone encounter Note* Telephone Encounter - Leigh Mullins - 06/14/2024 12:10 PM EDT Prescription Refill Information The patient has been identified by name and date of : Yes Caregiver verified no other encounters exist for this prescription request: Yes Caregiver confirmed with patient/requestor that no other refills are due, in the near future, with this provider at this time: Yes The last office visit in the department: 01/02/2024 Does the patient have a future office visit with this provider/department: Yes 07/02/2024 Requested Prescriptions Pending Prescriptions Disp Refills potassium chloride (K-TAB) 10 mEq tablet 180 tablet 1 Sig: TAKE 2 (TWO) TABLETS BY MOUTH EVERY DAY Leigh Inman June 14, 2024 12:11 PM [facility]08-02-2024 Miscellaneous Notes* Telephone Encounter - Leigh Mullins - 06/14/2024 12:10 PM EDT Prescription Refill Information The patient has been identified by name and date of : Yes Caregiver verified no other encounters exist for this prescription request: Yes Caregiver confirmed with patient/requestor that no other refills are due, in the near future, with this provider at this time: Yes The last office visit in the department: 01/02/2024 Does the patient have a future office visit with this provider/department: Yes 07/02/2024 Requested Prescriptions Pending Prescriptions Disp Refills potassium chloride (K-TAB) 10 mEq tablet 180 tablet 1 Sig: TAKE 2 (TWO) TABLETS BY MOUTH EVERY DAY Leigh Inman June 14, 2024 12:11 PM documented in [facility] encounterC[facility]07-[facility]-2024 Telephone encounter Note * Telephone Encounter - Leigh Mullins - 05/22/2024 3:08 PM EDT Prescription Refill Information The patient has been identified by name and date of : Yes Caregiver verified no other encounters exist for this prescription request: Yes Caregiver confirmed with patient/requestor that no other refills are due, in the near future, with this provider at this time: Yes The last office visit in the department: 01/02/2024 Does the patient have a future office visit with this provider/department: Yes 07/02/2024 Requested Prescriptions Pending Prescriptions Disp Refills insulin 50/50 lispro protamine-lispro units/mL (HUMALOG MIX 50-50 KWIKPEN) 100 unit/mL (50-50) pen 15 mL 0 Sig: Inject 30 units in the morning and 28 Units in the evenings with meals. Per Dr. King Leigh Inman May 22, 2024 3:08 PM [facility]07-10-2024 Miscellaneous Notes* Telephone Encounter - Leigh Mullins - 05/22/2024 3:08 PM EDT Prescription Refill Information The patient has been identified by name and date of : Yes Caregiver verified no other encounters exist for this prescription request: Yes Caregiver confirmed with patient/requestor that no other refills are due, in the near future, with this provider at this time: Yes The last office visit in the department: 01/02/2024 Does the patient have a future office visit with this provider/department: Yes 07/02/2024 Requested Prescriptions Pending Prescriptions Disp Refills insulin 50/50 lispro protamine-lispro units/mL (HUMALOG MIX 50-50 KWIKPEN) 100 unit/mL (50-50) pen 15 mL 0 Sig: Inject 30 units in the morning and 28 Units in the evenings with meals. Per Dr. King Leigh Inman May 22, 2024 3:08 PM documented in this encounterC[facility]06-07-2024 Telephone encounter Note * Telephone Encounter - Lourdes Bojorquez LPN - 04/19/2024 4:19 PM EDT Called the pharmacy pt picked up rx 04/10/24. Insurance will cover only 50 a month. Pt still has 100left on the rx. So he is good for 2 more months, [facility]06-07-[facility] Miscellaneous Notes* Telephone Encounter - Lourdes Bojorquez LPN - 04/19/2024 4:19 PM EDT Called the pharmacy pt picked up rx 04/10/24. Insurance will cover only 50 a month. Pt still has 100left on the rx. So he is good for 2 more months, * Telephone Encounter - Janis Hogan - 04/19/2024 8:14 AM EDT Patient has been identified by name and date of : Yes, Provider Dr. Morel Date 04-19-24 Time8:15 am Patient phones for refill(s): Requested Prescriptions Pending Prescriptions Disp Refills blood sugar diagnostic (BLOOD GLUCOSE TEST) test strip 200 Strip 3 Sig: Test blood sugar(s) 2 times daily. Dx: Type 2 DM - Uncontrolled E11.65 Insulin: No Date of last office visit in primary care: 01/02/2024 Date of next office visit in primary care: 07/02/2024 Please advise. Thank you. Janis Fowler. [facility] Telephone encounter Note * Telephone Encounter - Janis Hogan - 04/19/2024 8:14 AM EDT Patient has been identified by name and date of : Yes, Provider Dr. Morel Date 04-19-24 Time8:15 am Patient phones for refill(s): Requested Prescriptions Pending Prescriptions Disp Refills blood sugar diagnostic (BLOOD GLUCOSE TEST) test strip 200 Strip 3 Sig: Test blood sugar(s) 2 times daily. Dx: Type 2 DM - Uncontrolled E11.65 Insulin: No Date of last office visit in primary care: 01/02/2024 Date of next office visit in primary care: 07/02/2024 Please advise. Thank you. Janis Fowler. [facility] Evaluation note* Diagnosis Type 2 diabetes mellitus with stage 3a chronic kidney disease, with long-term current use of insulin (HCC) documented in this encounter [facility]05-21-[facility]24 Telephone encounter Note* Telephone Encounter - Helga Bourne LPN - 04/02/2024 9:51 AM EDT Spoke with pt and information listed below given. Pt verbalizes understanding. Helga Bourne LPN [facility]05-21-2024 Miscellaneous Notes* Telephone Encounter - Helga Bourne LPN - 04/02/2024 9:51 AM EDT Spoke with pt and information listed below given. Pt verbalizes understanding. Helga Bourne LPN * Telephone Encounter - Skyla Mistry - 04/01/2024 10:22 AM EDT Patient's sister called to request this refill. 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 Wants to know if a refill can be sent with enough medication to get him to that appt. * Telephone Encounter - Skyla Mistry - 04/01/2024 10:21 AM EDT Patient has been identified by name and date of : Yes, Provider Tonya Sister phones for refill(s): Requested Prescriptions Pending Prescriptions Disp Refills insulin 50/50 lispro protamine-lispro units/mL (HUMALOG MIX 50-50 KWIKPEN) 100 unit/mL (50-50) pen Sig: Inject 30 units in the morning and 28 Units in the evenings with meals. Per Dr. Lo Date of last office visit in primary care: 01/02/2024 Date of next office visit in primary care: 07/02/2024 Please advise. Thank you. Skyla Fowler. documented in [facility] Evaluation note* Diagnosis Type 2 diabetes mellitus with stage 3a chronic kidney disease, with long-term current use of insulin (HCC) documented in this encounter [facility] Telephone encounter Note* Telephone Encounter - Skyla Mistry - 04/01/2024 10:22 AM EDT Patient's sister called to request this refill. 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 Wants to know if a refill can be sent with enough medication to get him to that appt. [facility] Telephone encounter Note* Telephone Encounter - Skyla Mistry - 04/01/2024 10:21 AM EDT Patient has been identified by name and date of : Yes, Provider Tonya Sister phones for refill(s): Requested Prescriptions Pending Prescriptions Disp Refills insulin 50/50 lispro protamine-lispro units/mL (HUMALOG MIX 50-50 KWIKPEN) 100 unit/mL (50-50) pen Sig: Inject 30 units in the morning and 28 Units in the evenings with meals. Per Dr. Lo Date of last office visit in primary care: 01/02/2024 Date of next office visit in primary care: 07/02/2024 Please advise. Thank you. Skyla Fowler. [facility]04-22-[facility] Instructions* Patient Instructions* Maxi Flores APRN.SAMMY PRAJAPATI - 03/04/2024 9:48 AM EDT Follow up with Maxi Flores APRN.SAMMY PRAJAPATI in 9 months Cont with Flomax and Finasteride I discussed treatment options at length including r/b/a of each: To include Medication therapy and the role of further evaluation with UDS, TRUS and cysto if indicated. Discussed the role of pharmacotherapy, including risks, benefits and alternatives: Alpha-elijah therapy [e.g. Tamsulosin] - potential risks of dizziness, asthenia, orthostasis, and retrograde ejaculation. 5-Alpha Reductase Inhibitors [e.g. Finasteride] - potential risks of painful breast enlargement, diminished libido or erectile dysfunction, ejaculatory dysfunction, gynecomastia. Return to the clinic or seek care [...] you again and maintaining your health. Maxi Flores APRN.SAMMY PRAJAPATI documented in this encounterC[facility]04-22-[facility]24 History of Present illness Narrative* Maxi Flores APRN.SAMMY PRAJAPATI - 03/04/2024 9:30 AM EDT [facility] MALE PATIENT - HISTORY AND PHYSICAL EXAMINATION PATIENT: Osvaldo Lucio (88 year old) 09/25/2023 PCP: Jeremi Morel MD Est patient to Urology CHIEF COMPLAINT: BPH/LUTS follow up HISTORY OF PRESENT ILLNESS: 88 year old year old male with BPH/LUTS. Main complaint was urinary frequency. 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 Was admitted for approximately 3 days. During that time he did have an episode of acute urinary retention and did have to have an intermittent self cath at least 1 time. Upon discharge she was started on Proscar in the morning time in addition to his Flomax 0.8 mg that he takes for his prostate/BPH. Additionally he had Lasix and potassium ordered to his medication regimen. Started on Proscar during hospital stay. Since hospital discharge he states he is able to urinate at home without difficulty. Unable to provide a urine sample for us at this time. Denies feeling in AUR. Now on Proscar for the past 4 months. Hx of BPH: On Flomax to 0.8mg and Proscar. Feeling well. Denies SE. Overall feeling well. Happy with response. URINARY: DAYTIME FREQUENCY: Every 3 hours NIGHTTIME FREQUENCY: 0 IRRITATIVE - BOTHERSOME FREQUENCY: No - URGENCY: No - INCONTINENCE: Stress No / Urge: No OBSTRUCTIVE - FORCE OF STREAM: Average - HESITANCY: No - INTERMITTENCY: No - STRAINING: No - INCOMPLETE EMPTYING: No - DOUBLE VOIDING: No - POSTVOID DRIBBLING: No CURRENT URINARY STATUS: - INDWELLING CATHETER: No - CURRENT INTERMITTENT CATHETERIZATION: No - GROSS HEMATURIA: No - URINARY TRACT INFECTION: No Patient Entered Questionnaires: INTERNATIONAL PROSTATE SYMPTOM SCORE (I-PSS) PREVIOUS TOTAL IPSS SCORE: 9 QOL = 3 1. Incomplete emptying 1 2. Frequency 0 3. Intermittency 0 4. Urgency 0 5. Weak stream 0 6. Straining 0 7. Nocturia 0 TOTAL IPSS SCORE 1 QOL = 1 PROMIS Global Health 06/06/2017 PROMIS Global Health Scale Physical Health Percentile 41 Mental Health Percentile 43 Percentiles provide an indication of how the patient's score ranks in relation to the general population. Higher percentile rankings indicate better function/quality of life. 50th percentile is the average of the general population and indicates half of respondents had a worse score. HISTORY: PAST MEDICAL HISTORY Diagnosis Date Acute on chronic diastolic (congestive) heart failure ([facility]) 05/27/2019 Aortic stenosis 08/23/2012 Aortic valve replaced 01/01/2019 Benign prostatic hyperplasia with urinary frequency Bipolar disorder, unspecified ([facility]) BPH with urinary obstruction Chronic kidney disease (CKD), stage III (moderate) ([facility]) 03/12/2010 DM type 2 causing CKD stage 3 ([facility]) 07/30/2015 Dysuria Essential hypertension Frequency of urination Hyperlipidemia cholesterol 197 08/27/2012 [facility] Impaired glucose metabolism HGBA1C 6.1 08/27/2012 [facility]. He has since 2006 had A1C [...] Tobacco Use Smoking status: Former Types: Cigars Smokeless tobacco: Never Vaping Use Vaping Use: Never used Substance Use Topics Alcohol use: Not Currently Comment: Quit Drug use: Never FAMILY HISTORY Problem Relation Age of Onset Stroke Father brain aneurysm MEDICATIONS: Current Outpatient Medications Medication Sig tamsulosin (FLOMAX) 0.4 mg Take 2 capsules by mouth once daily. blood sugar diagnostic (BLOOD GLUCOSE TEST) test strip Test blood sugar(s) 2 times daily. Dx: Type 2 DM - Uncontrolled E11.65 Insulin: No insulin 50/50 lispro protamine-lispro units/mL (HUMALOG MIX 50-50 KWIKPEN) 100 unit/mL (50-50) pen Inject 30 units in the morning and 28 Units in the evenings with meals. Per Dr. Lo potassium chloride (K-TAB) 10 mEq tablet TAKE 2 (TWO) TABLETS BY MOUTH EVERY DAY doxepin capsule 50 mg Take 1 capsule by mouth daily at bedtime. [facility]. mirtazapine (REMERON) 15 mg tablet Take 1 tablet by mouth daily at bedtime. [facility]. furosemide (LASIX) 40 mg tablet Take 40 mg by mouth two times a day. finasteride (PROSCAR) 5 mg tablet Take 1 tablet by mouth once daily. clonazePAM (KLONOPIN) 0.5 mg tablet Take 0.5 mg by mouth once daily as needed. busPIRone (BUSPAR) 15 mg tablet Take 1 tablet by mouth every 12 hours. Lancets lancets Test blood sugar(s) 2 times daily. Dx: Type 2 DM - Uncontrolled E11.65 Insulin: No melatonin 5 mg tablet Take 1 tablet by mouth daily at bedtime. amLODIPine (NORVASC) 10 mg tablet Take 1 tablet by mouth once daily. lisinopril (ZESTRIL, PRINIVIL) 20 mg tablet Take 1 tablet by mouth twice daily. metoprolol tartrate, short acting, (LOPRESSOR) 25 mg tablet Take 0.5 tablets by mouth twice daily. ferrous sulfate 325 mg (65 mg iron) tablet Take 325 mg by mouth twice daily. multivitamin with minerals (MULTI-VITAMIN W/MINERALS ORAL) Take 1 tablet by mouth once daily. apixaban (ELIQUIS) 2.5 mg tab tab(s) Take 1 tablet by mouth twice daily. atorvastatin (LIPITOR) 40 mg tablet Take 1 tablet by mouth once daily. No current facility-administered medications for this visit. LABS: No results found for this basename: uglucpoc,ubilipoc,uketonpoc,usgpoc,uhbpoc,uphpoc,upropoc,uuropoc ,unitpoc,uwbcpoc,ucolpoc,uclarpoc OTHER DATA: Creatinine Creatinine Date Value Ref Range Status 12/05/2023 1.21 0.73 - 1.22 mg/dL Final 10/17/2022 1.31 (H) 0.73 - 1.22 mg/dL Final 05/01/2020 0.76 0.73 - 1.22 mg/dL Final 02/01/2019 1.17 0.73 - 1.22 mg/dL Final PSA No results found for: "PSA" OFFICE DATA: POST-VOID RESIDUAL BLADDER VOLUME: YES, 4 cc Review of Systems: PAIN ASSESSMENT: CURRENTLY HAVING NO PAIN GENERAL: No weight loss, malaise or fevers GI: No nausea, vomiting MUSCULOSKELETAL: Negative for generalized joint pain SKIN: Negative for rash HEMATOLOGY/LYMPHOLOGY: Negative for swollen nodes All other systems reviewed and noncontributory PHYSICAL EXAMINATION: VITALS: BP 104/62 (BP Site: Right Arm, BP Position: Sitting, BP Cuff Size: Regular Adult) Pulse 92 Temp 36.4 C (97.6 F) (Temporal) Resp 14 Ht 174 cm (5' 8.5") Wt 90.2 kg (198 lb 12.8 oz) SpO2 94% BMI 29.79 kg/m GENERAL: alert, no distress, normal affect CARDIAC: RRR, no m/g/r. RESPIRATORY: normal effort ABDOMEN: soft, non-tender, non-distended. No CVA tenderness. EXTREMITIES: normal SKIN: normal NEUROLOGIC: normal ASSESSMENT/PLAN: 1. Benign prostatic hyperplasia with urinary frequency - ICD9: 600.01, 788.41, ICD10: N40.1, R35.0 (primary diagnosis) MDM: Chronic, improved control. PVRs improved. PVR = 4 ml. Denies being in AUR. No pain. Abd soft. Overall feeling well today. No f/c/n/v. Responded well to Proscar. Plan: Cont with Flomax and Proscar Declined Cysto/TRUS RTC for any UTI symptoms or go to ER for AUR or unable to void. follow up in 9 months with Maxi Flores APRN.SAMMY PRAJAPATI - POST VOID RESIDUAL - FINASTERIDE 5 MG TABLET - TAMSULOSIN 0.4 MG CAPSULE 2. Frequency of urination - ICD9: 788.41, ICD10: R35.0 Plan as above I spent a total of 30 minutes on the date of the service which included preparing to see the patient, [id number] patient care, completing clinical documentation, performing a medically appropriate examination, counseling and educating the patient/family/caregiver and ordering medications, tests, or procedures. This note was copied from previous note and exam dated 12/04/23. Author is Maxi Flores APRN.SAMMY PRAJAPATI note reviewed and changes have been made or updates noted in the copy & paste portion of an encounter. Maxi Flores DNP, ALO Department of Urology [facility] * Mary Schmitt LPN - 03/04/2024 9:25 AM EDT Verified name and date of . CC Post Void Residual HPI: P atient is here now for an appointment with Niles German APRN, DNP Procedure: Explained procedure to patient and verbalizes understanding. Performed a PVR. Patient states he urinated right before visit and cannot use restroom at this time. Results of scan: 4 mL The patient tolerated the procedure well. Plan: Appointment with Maxi. documented in this encounterC[facility]04-22-2024 NoteHNO ID: [id number] Author: MAXI FLORES APRN.SAMMY PRAJAPATI Service: ? Author Type: Nurse Practitioner Type: Progress Notes Filed: 03/04/2024 09:53 Note Text: [facility] MALE PATIENT - HISTORY AND PHYSICAL EXAMINATION PATIENT: Osvaldo Lucio (88 year old) 09/25/2023 PCP: Jeremi Morel MD Est patient to Urology CHIEF COMPLAINT: BPH/LUTS follow up HISTORY OF PRESENT ILLNESS: 88 year old year old male with BPH/LUTS. Main complaint was urinary frequency. 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 Was admitted for approximately 3 days. During that time he did have an episode of acute urinary retention and did have to have an intermittent self cath at least 1 time. Upon discharge she was started on Proscar in the morning time in addition to his Flomax 0.8 mg that he takes for his prostate/BPH. Additionally he had Lasix and potassium ordered to his medication regimen. Started on Proscar during hospital stay. Since hospital discharge he states he is able to urinate at home without difficulty. Unable to provide a urine sample for us at this time. Denies feeling in AUR. Now on Proscar for the past 4 months. Hx of BPH: On Flomax to 0.8mg and Proscar. Feeling well. Denies SE. Overall feeling well. Happy with response. URINARY: DAYTIME FREQUENCY: Every 3 hours NIGHTTIME FREQUENCY: 0 IRRITATIVE - BOTHERSOME FREQUENCY: No - URGENCY: No - INCONTINENCE: Stress No / Urge: No OBSTRUCTIVE - FORCE OF STREAM: Average - HESITANCY: No - INTERMITTENCY: No - STRAINING: No - INCOMPLETE EMPTYING: No - DOUBLE VOIDING: No - POSTVOID DRIBBLING: No CURRENT URINARY STATUS: - INDWELLING CATHETER: No - CURRENT INTERMITTENT CATHETERIZATION: No - GROSS HEMATURIA: No - URINARY TRACT INFECTION: No Patient Entered Questionnaires: INTERNATIONAL PROSTATE SYMPTOM SCORE (I-PSS) PREVIOUS TOTAL IPSS SCORE: 9 QOL = 3 1. Incomplete emptying 1 2. Frequency 0 3. Intermittency 0 4. Urgency 0 5. Weak stream 0 6. Straining 0 7. 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 He has since 2006 had A1C [...] DISLOCATION W/REPAIR/INT/XTRNL FIXJ 1992 ORIF Ankle right [facility] REPLACEMENT, AORTIC VALVE, WITH CAR 01/03/2019 Social History Tobacco Use Smoking status: Former Types: Cigars Smokeless tobacco: Never Vaping Use Vaping Use: Never used Substance Use Topics Alcohol use: Not Currently Comment: Quit Drug use: Never FAMILY HISTORY Problem Relation Age of Onset Stroke Father brain aneurysm MEDICATIONS: Current Outpatient Medications Medication Sig tamsulosin (FLOMAX) 0.4 mg Take 2 capsules by mouth once daily. blood sugar diagnostic (BLOOD GLUCOSE TEST) test strip Test blood sugar(s) 2 times daily. Dx: Type 2 DM - Uncontrolled E11.65 Insulin: No insulin 50/50 lispro (more content not included)...[facility] 03-04-2024 NoteHNO ID: [id number] Author: MARY SCHMITT LPN Service: ? Author Type: LICENSED NURSE Type: Progress Notes Filed: 03/04/2024 09:53 Note Text: Verified name and date of . CC Post Void Residual HPI: Belia león is here now for an appointment with Niles German APRN, SAMMY Procedure: Explained procedure to patient and verbalizes understanding. Performed a PVR. Patient states he urinated right before visit and cannot use restroom at this time. Results of scan: 4 mL The patient tolerated the procedure well. Plan: Appointment with Maxi.[facility]04-10-2024 Miscellaneous Notes * Telephone Encounter - [place] Jacqueline Fowler - 02/21/2024 8:09 AM EDT Patient has been identified by name and date of : yes Patient phones for refill(s): Requested Prescriptions Pending Prescriptions Disp Refills tamsulosin (FLOMAX) 0.4 mg 60 capsule 11 Sig: Take 2 capsules by mouth once daily. Date of last office visit in primary care: 01/02/2024 Date of next office visit in primary care: 07/02/2024 Please advise. Thank you. Jacqueline Fowler. documented in this encounterC[facility]02-20-2024 Instructions* Patient Instructions* Mercedez Castaneda APRN.[facility] - 01/02/2024 8:10 AM EST Screening schedule The following prevention plan is recommended: Shingrix Vaccine(1 of 2) Never done RSV Vaccine(1 - 1-dose 60+ series) Never done WHAT YOU CAN DO TO PREVENT FALLS Many falls can be prevented. By making some changes, you can lower your chances of falling. Four things YOU can do to prevent falls for you* and your caregiver 1. Begin a regular exercise program Exercise is one of the most important ways to lower your chances of falling. It makes you stronger and helps you feel better. Exercises that improve balance and coordination (like Soct Chi) are the most helpful. Lack of exercise leads to weakness and increases your chances of falling. Ask your doctor or health care provider about the best type of exercise program for you. 2. Have your health care provider review your medicines Have your doctor or pharmacist review all the medicines you take, even [id number] medicines. As you get older, the way medicines work in your body can change. Some medicines, or combinations of medicines, can make you sleepy or dizzy andcan cause you to fall. 3. Have your vision checked Have your eyes checked by an eye doctor at least once a year. You may be wearing the wrong glasses or have a condition like glaucoma or cataracts that limits your vision. Poor vision can increase your chances of falling. 4. Make your home safer About half of all falls happen at home. To make your home safer: Remove things you can trip over (like papers, books, clothes, and shoes) from stairs and places where you walk. Remove small throw rugs or use double-sided tape to keep the rugs from slipping. Keep items you use often in cabinets you can reach easily without using a step stool. Have grab bars put in next to your toilet and in the tub or shower. Use non-slip mats in the bathtub and on shower floors. Improve the lighting in your home. As you get older, you need brighter lights to see well. Hang light-weight curtains or shades to reduce glare. Have handrails and lights put in on all staircases. Wear shoes both inside and outside the house. Avoid going barefoot or wearing slippers. For more information, contact: Centers for Disease Control and Prevention www.cdc.gov/injury * This information may not apply if you have certain medical conditions. documented in this encounterCrystal [facility]02-20-2024 NoteHNO ID: [id number] Author: MERCEDEZ CASTANEDA APRN.CNP Service: ? Author Type: Nurse Practitioner Type: Progress Notes Filed: 01/02/2024 08:25 Note Text: Osvaldo Lucio is a 88 year old male here for a Medicare wellness visit. Medicare Health Risk Assessment General Health Very good Exercise: Minutes/Day 10 min Exercise: Days/Week 7 days Alcohol: Daily Use Never Alcohol: Drinks/Day Patient does not drink Alcohol: 6 or more drinks Never Feel off balance No Concerns: Teeth/Dentures No Concerns: Sexual function No Troubled by feelings None of the above Frequency: Eating healthy diet More than half the days ADLs requiring help Cooking; Housework Safety precautions in home/vehicle Yes Smoke, vape, chews tobacco No Difficulty hearing No Difficulty seeing No Current Providers Specialists: I have reviewed specialist-related care of the patient in the medical record. Current care team: Patient Care Team: Jeremi Morel MD as PCP - General (Internal Medicine) [facility] Outside specialists seen: [facility], Dr. Chandra Lo-endocrinology, [facility], [facility], [facility]-psychiatry Medical/Family history review Reviewed and updated problem list, medical/surgical/family/social history, medications, and allergies. Opioid use review Opioid Medications (last 90 days) Some values may be hidden. Unless noted otherwise, only the newest values recorded on each date are displayed. Opioid Medications No data to display. Depression screening Depression Screening PHQ-2 Score MARY-2 Total Score 01/02/2024 0 - Depression screening tool completed and reviewed. Based on score and interview, patient is already diagnosed with depression. Screening tool discussed with patient, and I recommended continuing current plan of care. Cognitive screening Mini Cog Score: 4 Cognitive screening reviewed and no further action needed (score 3-5) Functional Observation Was the patient's Timed Up AND Go test unsteady or ? 12 seconds? No Advance Care Planning Patient was not able to provide a surrogate decision maker or written advance directives Measurements BP 134/74 Pulse 86 Resp 20 Ht 5' 8.5" (1.74m) Wt 192 lb (87.1kg) BMI 28.77 kg/(m2). Additional screenings: No results found. Assessment/Plan Medicare annual wellness visit, subsequent (Z00.00) - Counseled on healthy diet and regular exercise - Fall avoidance information provided - Personalized prevention plan provided Additional Concerns The following concerns were also discussed with the patient: History of Afib, chronic CHF, CAD. Managed by cardiology including medications. Patient denies any recent changes Bipolar disorder-managed by psychiatry at the [facility]. Taking all medications as prescribed, denies side effects. Following up as instructed, no changes to medications. Diabetes- managed by endocrinology. Blood sugars are well controlled. Insulin dose recently decreased. PHYSICAL EXAM BP 134/74 Pulse 86 Resp 20 Ht 174 cm (5' 8.5") Wt 87.1 kg (192 lb) BMI 28.77 kg/m? GENERAL: well appearing, alert, in no acute distress CARDIOVASCULAR: regular rate and rhythm. No murmur, rubs or gallops. PULMONARY: clear to auscultation, no wheezing, rhonchi, or crackles ASSESSMENT/PLAN: 1. Medicare annual wellness visit, subsequent - ICD9: V70.0, ICD10: Z00.00 (primary diagnosis) See Medicare wellness plan 2. Type 2 diabetes mellitus with stage 3a chronic kidney disease, with long-term current use of insulin (HCC) - ICD9: 250.40, 585.3, V58.67, ICD10: E11.22, N18.31, Z79.4 - Controlled - Continue current medications - BLOOD SUGAR DIAGNOSTIC STRIPS - HUMALOG MIX 50-50 KWIKPEN U-100 INSULIN 100 UNIT/ML SUBCUTANEOUS PEN 3. Essential hypertension - ICD9: 401.9, ICD10: I10 - Controlled - Continue current medications - Recommend home blood pressure monitoring, to bring results to next visit - Encouraged sodium restriction, DASH or Mediterranean diet 4. Hyperlipidemia, unspecified hyperlipidemia type - ICD9: 272.4, ICD10: E78.5 - Controlled - Continue current medications 5. Bipolar affective disorder, remission status unspecified (HCC) - ICD9: 296.80, ICD10: F31.9 Stable on medications 6. Paroxysmal atrial fibrillation (HCC) - ICD9: 427.31, ICD10: I48.0 Stable Mercedez Castaneda APRN.[facility] [facility] of Present illness Narrative* Mercedez Castaneda APRN.ALO - 01/02/2024 8:03 AM EST Osvaldo Lucio is a 88 year old male here for a Medicare wellness visit. Medicare Health Risk Assessment General Health Very good Exercise: Minutes/Day 10 min Exercise: Days/Week 7 days Alcohol: Daily Use Never Alcohol: Drinks/Day Patient does not drink Alcohol: 6 or more drinks Never Feel off balance No Concerns: Teeth/Dentures No Concerns: Sexual function No Troubled by feelings None of the above Frequency: Eating healthy diet More than half the days ADLs requiring help Cooking; Housework Safety precautions in home/vehicle Yes Smoke, vape, chews tobacco No Difficulty hearing No Difficulty seeing No Current Providers Specialists: I have reviewed specialist-related care of the patient in the medical record. Current care team: Patient Care Team: Jeremi Morel MD as PCP - General (Internal Medicine) [facility] [place] Outside specialists seen: [facility], Dr. Chandra Lo-endocrinology, [facility], [facility], [facility]psychiatry Medical/Family history review Reviewed and updated problem list, medical/surgical/family/social history, medications, and allergies. Opioid use review Opioid Medications (last 90 days) Some values may be hidden. Unless noted otherwise, only the newest values recorded on each date aredisplayed. Opioid Medications No data to display. Depression screening Depression Screening PHQ-2 Score MARY-2 Total Score 01/02/2024 0 - Depression screening tool completed and reviewed. Based on score and interview, patient is already diagnosed with depression. Screening tool discussed with patient, and I recommended continuing current plan of care. Cognitive screening Mini Cog Score: 4 Cognitive screening reviewed and no further action needed (score 3-5) Functional Observation Was the patient's Timed Up & Go test unsteady or ? 12 seconds? No Advance Care Planning Patient was not able to provide a surrogate decision maker or written advance directives Measurements BP 134/74 Pulse 86 Resp 20 Ht 5' 8.5" (1.74m) Wt 192 lb (87.1kg) BMI 28.77 kg/(m^2). Additional screenings: No results found. Assessment/Plan Medicare annual wellness visit, subsequent (Z00.00) - Counseled on healthy diet and regular exercise - Fall avoidance information provided - Personalized prevention plan provided Additional Concerns The following concerns were also discussed with the patient: History of Afib, chronic CHF, CAD. Managed by cardiology including medications. Patient denies any recent changes Bipolar disorder-managed by psychiatry at the [facility]. Taking all medications as prescribed, denies side effects. Following up as instructed, no changes to medications. Diabetes- managed by endocrinology. Blood sugars are well controlled. Insulin dose recently decreased. PHYSICAL EXAM BP 134/74 Pulse 86 Resp 20 Ht 174 cm (5' 8.5") Wt 87.1 kg (192 lb) BMI 28.77 kg/m GENERAL: well appearing, alert, in no acute distress CARDIOVASCULAR: regular rate and rhythm. No murmur, rubs or gallops. PULMONARY: clear to auscultation, no wheezing, rhonchi, or crackles ASSESSMENT/PLAN: 1. Medicare annual wellness visit, subsequent - ICD9: V70.0, ICD10: Z00.00 (primary diagnosis) See Medicare wellness plan 2. Type 2 diabetes mellitus with stage 3a chronic kidney disease, with long-term current use of insulin (HCC) - ICD9: 250.40, 585.3, V58.67, ICD10: E11.22, N18.31, Z79.4 - Controlled - Continue current medications - BLOOD SUGAR DIAGNOSTIC STRIPS - HUMALOG MIX 50-50 KWIKPEN U-100 INSULIN 100 UNIT/ML SUBCUTANEOUS PEN 3. Essential hypertension - ICD9: 401.9, ICD10: I10 - Controlled - Continue current medications - Recommend home blood pressure monitoring, to bring results to next visit - Encouraged sodium restriction, DASH or Mediterranean diet 4. Hyperlipidemia, unspecified hyperlipidemia type - ICD9: 272.4, ICD10: E78.5 - Controlled - Continue current medications 5. Bipolar affective disorder, remission status unspecified (HCC) - ICD9: 296.80, ICD10: F31.9 Stable on medications 6. Paroxysmal atrial fibrillation (HCC) - ICD9: 427.31, ICD10: I48.0 Stable Mercedez Castaneda APRN.[employer]PER[employer] [facility]* Diagnosis Medicare annual wellness visit, subsequent- Primary Routine general medical examination at a health care facility Type 2 diabetes mellitus with stage 3a chronic kidney disease, with long-term current use of insulin (HCC) Essential hypertension Unspecified essential hypertension Hyperlipidemia, unspecified hyperlipidemia type Bipolar affective disorder, remission status unspecified (HCC) Paroxysmal atrial fibrillation (HCC) Atrial fibrillation documented in this encounter [facility]02-[facility] Miscellaneous Notes* Telephone Encounter - Karen Arenas RN - 12/15/2023 4:53 PM EST Patient has been identified by name and date of : Yes, Provider Dr Walker Date 12/15/23 Time 1654. Caregiver phones for refill(s): Requested Prescriptions Pending Prescriptions Disp Refills potassium chloride (K-TAB) 10 mEq tablet 180 tablet Sig: TAKE 2 (TWO) TABLETS BY MOUTH EVERY DAY Date of last office visit in primary care: 12/05/2023 Date of next office visit in primary care: 01/02/2024 Please advise. Thank you. Karen Arenas RN. [facility]24 Progress note Author Jim Haque [facility] November 27, 2023 4:59pm Note Date/Time November 26, 2023 7 :35pm [facility] Medical Records Department [address] [place] [address] Progress Note - Hospitalist 11/26/231932 MR#: [id number] Acct: [id number] Name: OSVALDO LUCIO Rep #:[id number] : 1935 88 From: Jim Haque DO PCP: Dr. Jeremi Morel MD Status:A DM IN Location: [place] [address]- 1 Reason for Visit Reason for Visit: Diagnoses Heart failure, unspecified (11/25/23) Subjective Subjective Patient was seen and examined today, he is currently on room air and appears comfortable at rest. Chest x-ray obtained today showed improved congestive heart failure. Patient had some urinary hesitancy and had a Webster placed yesterday, I talked him briefly about this and we will try to remove the Webster tomorrow and make sure he voids before he leaves. I anticipate if he is medically stable tomorrow he will be able to be discharged Objective Data Objective Data Vital Signs: Vital Signs Temp Pulse Resp BP Pulse Ox O2 Del Method O2 Flow Rate 98.1 F 60 16 105/71 96 Room Air 2 11/26/23 14:37 11/26/23 14:37 11/26/23 14:37 11/26/23 14:37 11/26/23 14:37 11/26/23 14:37 11/26/23 02:42 Oxygen Flow Rate (L/min) 2 Oxygen Delivery Method Room Air Weight: 89.9 kg Body Mass Index (BMI) 30.1 Intake & Output: Intake and Output for Last 24 Hours 11/24/23 11/25/23 11/26/23 23:59 23:59 23:59 Intake Total 1150 / 1500 350 / 350 Output Total 1825 / 2975 2500 / 2500 Balance -675 / -1475 -2150 / -2150 Lab / Micro Data 11/26/23 04:47 11/27/23 05:42 Labs: Laboratory Results - last 24 hr 11/25/23 21:32: POC Glucose 172 H 11/26/23 04:47: WBC 7.8, RBC 3.98 L, Hgb 11.7 L, Hct 36.1 L, MCV 90.7, MCH 29.4,MCHC 32.4, RDW Std Deviation 44.2 H, RDW Coeff of Torie 13.4, Plt Count 154, MPV 11.5, Immature Gran % (Auto) 0.300, Neut % (Auto) 68.1, Lymph % (Auto) 18.6 L, Frontier % (Auto) 10.2 H, Eos % (Auto) 2.2, Baso % (Auto) 0.6, Absolute Neuts (auto)5.3, Absolute Lymphs (auto) 1.44, Nucleated RBC % 0, Sodium 142, Potassium 3.7, Chloride 106, Carbon Dioxide 28.0, Anion Gap 8, BUN 21 H, Creatinine 1.09, EstimCreat Clear Calc 52.98, Est GFR (MDRD) Af Amer 82, Est GFR (MDRD) Non-Af 68, BUN/Creatinine Ratio 19.3, Glucose 120 H, Calcium 9.2 11/26/23 06:29: POC Glucose 152 H 11/26/23 11:12: POC Glucose 196 H 11/26/23 16:45: POC Glucose 128 H Micro: Microbiology 11/25/23 07:22 Mucosa - Nose SARS-CoV-2, Influenza & RSV (PCR) - Final Radiography Diagnostic Testing: Radiology Impression Chest X-Ray 11/26/23 05:55 IMPRESSION: Resolving CHF and pulmonary edema. Electronically Signed: Dejon Carrasquillo MD at 8:49 EST , Physical Exam Narrative alert, oriented x3, no apparent distress, average body habitus and healthy appearing General Appearance: cooperative, well kempt and well developed Orientation / Consciousness: awake, oriented to person, oriented to place and oriented to time HEENT normocephalic, head/scalp atraumatic, hearing grossly normal bilaterally and moist oral mucous membranes Eyes PERRL, EOMs intact bilaterally and conjunctivae normal Neck supple, no JVD, thyroid normal and no carotid bruits General: trachea midline Resp normal respiratory effort, no retractions and no use of accessory muscles Resp Narrative: There are inspiratory rales at the bases bilaterally with decreased breath sounds Auscultation: Negative for rales, rhonchi or wheezes Cardio regular rate, regular rhythm, S1 normal heart sound, S2 normal heart sound, no murmurs, no rub and no gallops GI normal to inspection, nondistended, normoactive bowel sounds, soft to palpation,non-tender and non-distended Extremity no clubbing, cyanosis or edema Skin no rashes or lesions noted General Skin Exam: no breakdown Neuro oriented x3, CN's II-XII intact bilaterally, no focal motor deficits and no sensory deficits noted Sensorium / Orientation: awake, alert, oriented to person, oriented to place andoriented to time Speech: speech normal Psych affect normal Assessment & Plan Assessment/Plan (1) Congestive heart failure: PLAN: Plan 1. Acute on chronic diastolic congestive heart failure-continue IV Lasix and recheck a BMP tomorrow #2 hypoxia secondary to #1-patient is currently on room air, I do not anticipatesending the patient home on oxygen #3 essential hypertension-patient will remain on his home medications #4 paroxysmal atrial fibrillation-patient is currently on apixaban and rate limiting medication, he will be monitored on telemetry #5 type 2 diabetes-fingerstick blood sugars will be monitored, sliding scale insulin will be administered as needed, patient was changed to NovoLog 75/25 insulin due to the fact we do not stock his home Humulin 50/50 insulin. #6 pulmonary hypertension-patient has moderate pulmonary hypertension on his last echocardiogram, again he will be placed on IV diuretics #7 coronary artery disease-patient will remain on his home medications, complicates care, medical course, recovery, and prognosis #8 acute urinary retention due to BPH-patient follows up with urologist as an outpatient, I will maintain his Webster catheter for now and add Proscar to his home medication list when he is discharged Total clinical time spent by myself addressing the patient's medical issues, reviewing all of his data, and collaborating with patient's care team: 35 minutes Charges/Coding Visit Charges Inpatient E&M: 04026 Subs Hosp L2 11/27/23 0771 <Electronically signed by Jim Haque DO> Cosigner Signature (if applicable): CC: ~ Signed [facility] Work Phone: 1(341) 199-341901-13-2024 History and physical note Author [facility] November 25, 2023 6:32pm Note Date/Time November 25, 2023 6 :29pm [facility] Medical Records Department [address] [place] [address] H&P Exam - Hospitalist 11/25/23 1820 MR#: [id number] Acct: [id number] Name: OSVALDO LUCIO Rep #:[id number] : 1935 88 From: Jim Haque DO PCP: Dr. Jeremi Morel MD Status:A DM IN Location: [place] [address] HPI - General General Date of Admission: 11/25/23 Date of Service: 11/25/23 Chief Complaint: Shortness of breath, malaise HPI Narrative OSVALDO LUCIO, is a 88 M who presents to the emergency room at [facility] with complaints of shortness of breath over the last 48 hoursalong with malaise. Patient denies any cough, he denies any chest pain, he denies any fever or chills. Workup in the emergency room included a CBC which showed a normal white blood cell count, hemoglobin was slightly low at 12.3, chemistry profile was remarkable for glucose of 227 and a BUN of 25. Patient had a chest x-ray performed which showed bilateral infiltrates, CTA of the chestwas also performed which again showed bilateral infiltrates suspicious for either pneumonia or edema, there were bilateral pleural effusions and there was a left lower lobe consolidation noted.. Patient's beta natruretic peptide was slightly elevated at 209, urinalysis was unremarkable except for an elevated leukocyte esterase Patient required oxygen at 2 L/min via nasal cannula to maintain a pulse ox above 90%. Patient will be admitted to PCU for acute on chronic diastolic congestive heart failure with hypoxia, he will be given IV Lasix, chest x-ray will be repeated tomorrow, pulse ox will be monitored. I do not feel the patient has a community-acquired pneumonia. [facility] Medical History Abnormal LFTs Abrasions of multiple sites Acute on chronic renal failure Anxiety and depression Atherosclerosis of coronary artery of [place] heart without angina pectoris BPH (benign prostatic hyperplasia) Bradycardia Carotid artery bruit Chronic diastolic (congestive) heart failure Chronic renal failure, stage 2 (mild) Dehydration Elevated LFTs Essential (primary) hypertension Fall Frequent falls Hyperkalemia Hyperlipidemia Hypoglycemia associated with type 2 diabetes mellitus Hyponatremia Iron deficiency anemia Left bundle branch block Near syncope Non-rheumatic aortic stenosis Obesity Paroxysmal atrial fibrillation Physical debility Pleural effusion on left Postoperative atrial fibrillation (01/01/19) Secondary pulmonary arterial hypertension Significant closed head trauma within past 3 months Stenosis of right subclavian artery Thrombocytopenia Thyroid nodule Type 2 diabetes mellitus Vitamin D deficiency Home Medications vitamins A,C,Q-gddr-ikkxhi 4,296 mcg-226 mg-90 mg capsule 1 cap PO BID [facility] 03/07/19 [History Last Taken 10/25/19] eeqrdita-wc-dawdt 300 mcg-K 60 mcg-lycop 600 mcg-lutein 300 mcg tablet 1 tab PO DAILY supplement 10/25/19 [History Last Taken 10/25/19] Iron 65 mg PO BID 01/15/21 [History Last Taken Unknown] furosemide 40 mg tablet (Lasix) 40 mg PO DAILY #90 tabs 01/12/23 [Rx Last Taken Unknown] mirtazapine 7.5 mg tablet 7.5 mg PO DAILY 02/14/23 [History Last Taken Unknown] amlodipine 10 mg tablet 10 mg PO DAILY #90 tabs 04/26/23 [Rx Last Taken Unknown] apixaban 2.5 mg tablet 2.5 mg PO BID anticoagulant #60 tabs 04/26/23 [Rx Last Taken Unknown] atorvastatin 40 mg tablet 40 mg PO DAILY antihyperlipidemics #90 tabs 04/26/23 [Rx Last Taken Unknown] lisinopril 20 mg tablet 20 mg PO BID this is a dose increase #180 tabs 04/26/23 [Rx Last Taken Unknown] metoprolol tartrate 25 mg tablet 12.5 mg (1/2 x 25 mg) PO BID high blood pressure #90 tabs 04/26/23 [Rx Last Taken Unknown] clonazepam 0.5 mg tablet (Klonopin) 0.5 mg PO DAILY PRN anxiety 08/08/23 [History Last Taken Unknown] buspirone 15 mg tablet 15 mg PO BID 11/25/23 [History Last Taken Unknown] doxepin 50 mg capsule 50 mg PO QHS 11/25/23 [History Last Taken Unknown] insulin lispro protamine-lispro 100 unit/mL (50-50) subcutaneous pen (Humalog Mix 50-50 KwikPen) See Rx Instructions subcut .COMPLEX 11/25/23 [History Last Taken Unknown] melatonin 5 mg tablet 5 mg PO QHS 11/25/23 [History Last Taken Unknown] tamsulosin 0.4 mg capsule 0.8 mg PO DAILY@1730 diuretic 11/25/23 [History Last Taken Unknown] Allergy/AdvReac Type Severity Reaction Status Date / Time No Known Allergies Allergy Verified 11/25/23 06:26 Family History Father CVA (cerebral vascular accident) Mother COPD (chronic obstructive pulmonary disease) Surgical History H/O aortic valve replacement (01/01/19) H/O coronary artery bypass surgery (01/01/19) History of cataract surgery History of hip replacement History of left heart catheterization (10/31/18) History of open reduction and internal fixation (ORIF) procedure History of thoracentesis (01/05/19) Social History Smoking Status: Former smoker quit date: 11/13/03 how long ago did patient quit smoking: cigars ROS Constitutional Constitutional: Reports fatigue and malaise; Denies anorexia, change in weight, chills, fever(s), night sweats or weakness Eyes Eyes: Denies blurry vision, change in vision, discharge from eye(s) or eye pain Cardiovascular Cardiovascular: Reports dyspnea on exertion; Denies chest pain, claudication, edema or palpitations Respiratory/Chest Respiratory/Chest: Reports dyspnea, shortness of breath at rest and shortness ofbreath with exertion; Denies cough or hemoptysis Gastrointestinal Gastrointestinal: Denies abdominal pain, constipation, diarrhea, hematemesis, hematochezia, melena, nausea or vomiting Genitourinary Genitourinary: Denies dysuria, hematuria, urinary frequency, urinary hesitancy, urinary incontinence or urinary urgency Musculoskeletal Musculoskeletal: Denies back pain, joint pain, joint stiffness, joint swelling, myalgias or neck pain Neurologic Neurologic: Denies abnormal gait, abnormal speech, confusion, dizziness, focal weakness, headache(s), loss of vision, numbness, other visual disturbances, paresthesias, syncope or tingling Psychiatric Psychiatric: Denies anxiety, cognitive impairment, depression, irritability, mood swings or suicidal ideation Endocrine Endocrinology: Denies change in body appearance, cold intolerance, excessive sweating, heat intolerance, polydipsia or polyuria Hematologic/Lymphatic Hematologic/Lymphatic: Denies none, anemia, easy bleeding, easy bruising or lymphadenopathy Allergic/Immunologic Allergic/Immunologic: Denies rhinitis, urticaria, eczemia or asthma Vital Signs Vital Signs Vital Signs: 11/25/23 06:27 11/25/23 06:29 11/25/23 06:32 Temperature 98 F 98 F Temperature Source Temporal Temporal Pulse Rate 100 100 Respiratory Rate 24 H 24 H Respiratory Effort Short of Breath Respiratory Depth Respiratory Pattern Blood Pressure 112/67 112/67 Blood Pressure Mean 82 82 Blood Pressure Source Blood Pressure Position Blood Pressure Location Pulse Ox 93 93 Oxygen Delivery Method Oxygen Flow Rate (L/min) 11/25/23 06:47 11/25/23 10:38 11/25/23 11:02 Temperature 97.6 F L Temperature Source Pulse Rate 105 H 92 Respiratory Rate 28 H 25 H Respiratory Effort Short of Breath Respiratory Depth Normal Respiratory Pattern Tachypnea Blood Pressure 154/74 H Blood Pressure Mean 100 Blood Pressure Source Blood Pressure Position Blood Pressure Location Pulse Ox 84 92 Oxygen Delivery Method Room Air Room Air Oxygen Flow Rate (L/min) 11/25/23 11:16 11/25/23 11:50 11/25/23 13:36 Temperature 97.6 F L Temperature Source Temporal Pulse Rate 99 109 H Respiratory Rate 26 H 18 Respiratory Effort Respiratory Depth Respiratory Pattern Blood Pressure 155/77 H 177/85 H Blood Pressure Mean 103 115 Blood Pressure Source Monitor Blood Pressure Position Semi-Fowlers Blood Pressure Location Left Arm Pulse Ox 95 96 Oxygen Delivery Method Nasal Cannula Nasal Cannula Nasal Cannula Oxygen Flow Rate (L/min) 2 2 2 11/25/23 14:35 11/25/23 17:50 Temperature 98.1 F Temperature Source Temporal Pulse Rate 97 Respiratory Rate 16 Respiratory Effort Normal Respiratory Depth Shallow Respiratory Pattern Normal Blood Pressure 144/83 H Blood Pressure Mean 103 Blood Pressure Source Monitor Blood Pressure Position Sitting Blood Pressure Location Left Arm Pulse Ox 95 Oxygen Delivery Method Nasal Cannula Nasal Cannula Oxygen Flow Rate (L/min) 2 Weight Weight: 93.3 kg Body Mass Index (BMI) 31.2 Physical Exam Const alert, oriented x3, no apparent distress, average body habitus and healthy appearing General Appearance: cooperative, well kempt and well developed Orientation / Consciousness: awake, oriented to person, oriented to place and oriented to time HEENT normocephalic, head/scalp atraumatic, hearing grossly normal bilaterally and moist oral mucous membranes Eyes PERRL, EOMs intact bilaterally and conjunctivae normal Neck supple, no JVD, thyroid normal and no carotid bruits General: trachea midline Resp normal respiratory effort, no retractions and no use of accessory muscles Resp Narrative: There are inspiratory rales at the bases bilaterally with decreased breath sounds Auscultation: Negative for rales, rhonchi or wheezes Cardio regular rate, regular rhythm, S1 normal heart sound, S2 normal heart sound, no murmurs, no rub and no gallops GI normal to inspection, nondistended, normoactive bowel sounds, soft to palpation,non-tender and non-distended Extremity no clubbing, cyanosis or edema Skin no rashes or lesions noted General Skin Exam: no breakdown Neuro oriented x3, CN's II-XII intact bilaterally, no focal motor deficits and no sensory deficits noted Sensorium / Orientation: awake, alert, oriented to person, oriented to place andoriented to time Speech: speech normal Psych affect normal Results Lab / Micro Data 11/25/23 06:40 11/25/23 06:40 Labs: Laboratory Results - last 24 hr 11/25/23 06:40: WBC 7.8, RBC 4.15 L, Hgb 12.3 L, Hct 37.7 L, MCV 90.8, MCH 29.6,MCHC 32.6, RDW Std Deviation 43.8, RDW Coeff of Torie 13.4, Plt Count 143 L, MPV 11.9, Immature Gran % (Auto) 0.500, Neut % (Auto) 73.3 H, Lymph % (Auto) 16.1 L,Frontier % (Auto) 6.8, Eos % (Auto) 2.8, Baso % (Auto) 0.5, Absolute Neuts (auto) 5.7, Absolute Lymphs (auto) 1.25, Nucleated RBC % 0, PT 14.8, INR 1.2, APTT 31.6, Sodium 138, Potassium 3.8, Chloride 104, Carbon Dioxide 23.0, Anion Gap 11, BUN 25 H, Creatinine 1.25, Estim Creat Clear Calc 47.16, Est GFR (MDRD) Af Amer 70, Est GFR (MDRD) Non-Af 58 L, BUN/Creatinine Ratio 20.0, Glucose 227 H, Lactic Acid 2.8 H*, Calcium 9.8, Troponin I High Sens 26, B-Natriuretic Peptide 209.0 H, Lipase 26 11/25/23 08:49: Urine Color Yellow, Urine Clarity Clear, Urine pH 6.5, Ur Specific Felicity 1.010, Urine Protein 15 H, Urine Glucose (UA) Normal, Urine Ketones Negative, Urine Occult Blood Negative, Urine Nitrite Negative, Urine Bilirubin Negative, Urine Urobilinogen Normal, Ur Leukocyte Esterase 100 H, Urine RBC 0 SEEN, Urine WBC 0- 5 SEEN, Ur Squamous Epith Cells 0 SEEN, Urine Bacteria 0 SEEN, Urine Mucus 0 SEEN 11/25/23 11:50: Lactic Acid 1.9 11/25/23 16:18: POC Glucose 142 H Micro: Microbiology 11/25/23 07:22 Mucosa - Nose SARS-CoV-2, Influenza & RSV (PCR) - Final Imagaing Radiology Impression Chest X-Ray 11/25/23 07:02 IMPRESSION: Scattered bilateral airspace opacities consistent with pneumonia and small bilateral pleural effusions. Electronically Signed: Pepe Gr DO at 7:36 EST , Chest CTA 11/25/23 08:52 IMPRESSION: No demonstrated pulmonary embolism or arterial dissection. Bilateral pleural effusions associated with left lower lobe consolidation. Bilateral groundglass opacities, may be secondary to edema and/or an infectious process. Enlarged mediastinal lymph nodes, may be reactive however cannot entirely exclude a neoplastic process. Hiatal hernia. Electronically Signed: Priya Gonzalez MD at 9:28 EST , ADDENDUM: 11/25/23 0953 IMPRESSION: undefined Assessment & Plan Assessment/Plan (1) Congestive heart failure: PLAN: Plan 1. Acute on chronic diastolic congestive heart failure-patient will be admittedto PCU, IV Lasix will be administered, repeat chest x-ray will be obtained tomorrow #2 hypoxia secondary to #1-patient is currently on low-flow nasal cannula oxygen, pulse ox will be monitored and oxygen will be adjusted as needed #3 essential hypertension-patient will remain on his home medications #4 paroxysmal atrial fibrillation-patient is currently on apixaban and rate limiting medication, he will be monitored on telemetry #5 type 2 diabetes-fingerstick blood sugars will be monitored, sliding scale insulin will be administered as needed, patient was changed to NovoLog 75/25 insulin due to the fact we do not stock his home Humulin 50/50 insulin. #6 pulmonary hypertension-patient has moderate pulmonary hypertension on his last echocardiogram, again he will be placed on IV diuretics #7 coronary artery disease-patient will remain on his home medications, complicates care, medical course, recovery, and prognosis Total clinical time spent by myself addressing the patient's medical issues, reviewing all of his data, and collaborating with patient's care team: 75 minutes Charges/Coding Visit Charges Inpatient E&M: 97980 Init Hosp L3 11/25/23 1832 <Electronically signed by Jim Haque DO> Cosigner Signature (if applicable): CC: Dr. Jim Haque DO; Dr. Jeremi Morel MD~ Signed [facility] Work Phone: 1(312) 547-883201-13-2024 Discharge summary Author Maxi Quiroga [facility] November 25, 2023 3:39pm Note Date/Time November 25, 2023 7 :07am [facility] Medical Records Department [address] [place] [address] Emergency Department Summary 11/25/23 MR#: [id number] Acct: [id number] Name: OSVALDO LUCIO Rep #:[id number] : 1935 88 From: Maxi Haines PCP: Dr. Jeremi Morel MD Status:A DM IN Location: [place] [address] HPI History of Present Illness Chief Complaint: Shortness of Breath Informant: patient and friend Narrative Narrative: 88-year-old male presenting to the emergency room with generalized weakness. Patient states that on Monday he began to feel generally weak. This has persisted throughout the week. He notes some mild shortness of breath with exertion slight cough with sputum production and stuffy nose. He has been taking Tylenol because "it is about the only thing I can take". He is on about 15 other prescription medications including Eliquis. He has a history of diabetes chronic kidney disease hypertension hyperlipidemia CHF A-fib. He has had prior CABG and aortic valve replacement. He notes that he has swelling in his legs and the left may be is worse than normal but that is not uncommon for him. No diarrhea or vomiting. He denies any pain. Patient reports not missingany doses of his Eliquis. [facility] Medical History Abnormal LFTs Abrasions of multiple sites Acute on chronic renal failure Anxiety and depression Atherosclerosis of coronary artery of [place] heart without angina pectoris BPH (benign prostatic hyperplasia) Bradycardia Carotid artery bruit Chronic diastolic (congestive) heart failure Chronic renal failure, stage 2 (mild) Dehydration Elevated LFTs Essential (primary) hypertension Fall Frequent falls Hyperkalemia Hyperlipidemia Hypoglycemia associated with type 2 diabetes mellitus Hyponatremia Iron deficiency anemia Left bundle branch block Near syncope Non-rheumatic aortic stenosis Obesity Paroxysmal atrial fibrillation Physical debility Pleural effusion on left Postoperative atrial fibrillation (01/01/19) Secondary pulmonary arterial hypertension Significant closed head trauma within past 3 months Stenosis of right subclavian artery Thrombocytopenia Thyroid nodule Type 2 diabetes mellitus Vitamin D deficiency Home Medications vitamins A,C,D-acvd-mdvrso 4,296 mcg-226 mg-90 mg capsule 1 cap PO BID E[facility] HE[facility] 03/07/19 [History Last Taken 10/25/19] nypdcosu-gs-wyamh 300 mcg-K 60 mcg-lycop 600 mcg-lutein 300 mcg tablet 1 tab PO DAILY supplement 10/25/19 [History Last Taken 10/25/19] Iron 65 mg PO BID 01/15/21 [History Last Taken Unknown] furosemide 40 mg tablet (Lasix) 40 mg PO DAILY #90 tabs 01/12/23 [Rx Last Taken Unknown] mirtazapine 7.5 mg tablet 7.5 mg PO DAILY 02/14/23 [History Last Taken Unknown] amlodipine 10 mg tablet 10 mg PO DAILY #90 tabs 04/26/23 [Rx Last Taken Unknown] apixaban 2.5 mg tablet 2.5 mg PO BID anticoagulant #60 tabs 04/26/23 [Rx Last Taken Unknown] atorvastatin 40 mg tablet 40 mg PO DAILY antihyperlipidemics #90 tabs 04/26/23 [Rx Last Taken Unknown] lisinopril 20 mg tablet 20 mg PO BID this is a dose increase #180 tabs 04/26/23 [Rx Last Taken Unknown] metoprolol tartrate 25 mg tablet 12.5 mg (1/2 x 25 mg) PO BID high blood pressure #90 tabs 04/26/23 [Rx Last Taken Unknown] clonazepam 0.5 mg tablet (Klonopin) 0.5 mg PO DAILY PRN anxiety 08/08/23 [History Last Taken Unknown] buspirone 15 mg tablet 15 mg PO BID 11/25/23 [History Last Taken Unknown] doxepin 50 mg capsule 50 mg PO QHS 11/25/23 [History Last Taken Unknown] insulin lispro protamine-lispro 100 unit/mL (50-50) subcutaneous pen (Humalog Mix 50-50 KwikPen) See Rx Instructions subcut .COMPLEX 11/25/23 [History Last Taken Unknown] melatonin 5 mg tablet 5 mg PO QHS 11/25/23 [History Last Taken Unknown] tamsulosin 0.4 mg capsule 0.8 mg PO DAILY@1730 diuretic 11/25/23 [History Last Taken Unknown] Allergy/AdvReac Type Severity Reaction Status Date / Time No Known Allergies Allergy Verified 11/25/23 06:26 Family History Father CVA (cerebral vascular accident) Mother COPD (chronic obstructive pulmonary disease) Surgical History H/O aortic valve replacement (01/01/19) H/O coronary artery bypass surgery (01/01/19) History of cataract surgery History of hip replacement History of left heart catheterization (10/31/18) History of open reduction and internal fixation (ORIF) procedure History of thoracentesis (01/05/19) Social History Smoking Status: Former smoker quit date: 11/13/03 how long ago did patient quit smoking: cigars ROS ROS ED Constitutional Constitutional ED: Denies chills, fever(s), subjective or weight loss Eyes Eyes: Denies change in vision or diplopia ENT ENT ED: Reports rhinorrhea; Denies ear pain or sore throat Cardiovascular Cardiovascular: Denies chest pain, orthopnea, palpitations or racing heartbeat Respiratory/Chest Respiratory/Chest: Reports cough and dyspnea on exertion; Denies orthopnea Gastrointestinal Gastrointestinal: Denies abdominal pain, diarrhea, nausea or vomiting Genitourinary Genitourinary ED: Denies dysuria, hematuria or urinary frequency Musculoskeletal Musculoskeletal: Reports other Details: Bilateral lower extremity swelling left greater than right. No pain in legs. ; Denies arthralgias or myalgias Integumentary Denies abscess or rash Neurologic Neurologic: Denies headache(s) or weakness Psychiatric Psychiatric: Denies anxiety, depression, suicidal ideation or suicidal thoughts Endocrine Endocrinology: Denies polydipsia, polyphagia or polyuria Allergic/Immunologic Allergic/Immunologic ED: Denies mouth swelling, tongue swelling or urticaria EXAM Physical Exam Const Vital Signs: 11/25/23 06:27 11/25/23 06:29 11/25/23 06:32 Temperature 98 F 98 F Temperature Source Temporal Temporal Pulse Rate 100 100 Respiratory Rate 24 H 24 H Respiratory Effort Short of Breath Respiratory Depth Respiratory Pattern Blood Pressure 112/67 112/67 Blood Pressure Mean 82 82 Pulse Ox 93 93 Oxygen Delivery Method 11/25/23 06:47 11/25/23 10:38 Temperature Temperature Source Pulse Rate 105 H Respiratory Rate 28 H Respiratory Effort Short of Breath Respiratory Depth Normal Respiratory Pattern Tachypnea Blood Pressure Blood Pressure Mean Pulse Ox 84 Oxygen Delivery Method Room Air Room Air Positive well nourished and well developed General Appearance ED: well developed HEENT Reports normocephalic, head/scalp atraumatic and moist mucous membranes Eyes PERRL and EOMs intact bilaterally Neck no lymphadenopathy, supple and no JVD Resp normal respiratory effort and clear to auscultation bilaterally Cardio no murmurs Rhythm: abnormal rhythm irregularly irregular GI normal to inspection, nondistended, normoactive bowel sounds and non-tender Palpation: soft Back/Spine no CVA tenderness and normal ROM Extremity normal to inspection General Extremety ED: Yes edema General Extremity: edema bilateral lower extremity (L>R. No pain with palpation)Details: mild Neuro oriented x3 and CN's II-XII intact bilaterally Sensorium / Orientation: alert Motor Exam: strength 5/5 throughout Psych mental status grossly normal Mood & Affect: Negative for depressed or tearful Skin no rashes or lesions noted and no wounds MDM MDM MDM Narrative Medical decision making narrative: White count 7.8 with hemoglobin of 12.3. Troponin 26 BNP 209. Lactic acid curiously at 2.8. BMP showed a glucose of 227 creatinine 1.25. Urinalysis normal. COVID flu and RSV testing negative. My independent interpretation of the chest x-ray is bilateral pleural effusions with possible right lower and right upper lobe infiltrates. CTA of the chest was ordered given the asymmetricswelling of the legs and the chest x- ray findings. This is negative for embolism. This redemonstrated the bilateral pleural effusions. I do not see definitive evidence of pneumonia but question if this is more edema related. Hedoes not have fever he does not have white count. He has history of diastolic CHF with lower extremity swelling and now some dyspnea and edema on imaging. With getting up to the bedside he is about 84% on room air. Going to give him adose of Lasix. Plan will be admission to hospital. History & Record Review Discussion w/independent historian: Patient, Family and Friend Lab Data Attestation: I reviewed the patient's lab results. Labs: Laboratory Results - last 24 hr 11/25/23 11/25/23 06:40 08:49 WBC 7.8 RBC 4.15 L Hgb 12.3 L Hct 37.7 L MCV 90.8 MCH 29.6 MCHC 32.6 RDW Std Deviation 43.8 RDW Coeff of Torie 13.4 Plt Count 143 L MPV 11.9 Immature Gran % (Auto) 0.500 Neut % (Auto) 73.3 H Lymph % (Auto) 16.1 L Frontier % (Auto) 6.8 Eos % (Auto) 2.8 Baso % (Auto) 0.5 Absolute Neuts (auto) 5.7 Absolute Lymphs (auto) 1.25 Nucleated RBC % 0 PT 14.8 INR 1.2 APTT 31.6 Sodium 138 Potassium 3.8 Chloride 104 Carbon Dioxide 23.0 Anion Gap 11 BUN 25 H Creatinine 1.25 Estim Creat Clear Calc 47.16 Est GFR (MDRD) Af Amer 70 Est GFR (MDRD) Non-Af 58 L BUN/Creatinine Ratio 20.0 Glucose 227 H Lactic Acid 2.8 H* Calcium 9.8 Troponin I High Sens 26 B-Natriuretic Peptide 209.0 H Lipase 26 Urine Color Yellow Urine Clarity Clear Urine pH 6.5 Ur Specific Felicity 1.010 Urine Protein 15 H Urine Glucose (UA) Normal Urine Ketones Negative Urine Occult Blood Negative Urine Nitrite Negative Urine Bilirubin Negative Urine Urobilinogen Normal Ur Leukocyte Esterase 100 H Urine RBC 0 SEEN Urine WBC 0-5 SEEN Ur Squamous Epith Cells 0 SEEN Urine Bacteria 0 SEEN Urine Mucus 0 SEEN Radiography Diagnostic Testing: Clinical Impression(s) from Imaging Studies Chest X-Ray 11/25/23 07:02 IMPRESSION: Scattered bilateral airspace opacities consistent with pneumonia and small bilateral pleural effusions. Electronically Signed: Pepe Gr DO at 7:36 EST , Chest CTA 11/25/23 08:52 IMPRESSION: No demonstrated pulmonary embolism or arterial dissection. Bilateral pleural effusions associated with left lower lobe consolidation. Bilateral groundglass opacities, may be secondary to edema and/or an infectious process. Enlarged mediastinal lymph nodes, may be reactive however cannot entirely exclude a neoplastic process. Hiatal hernia. Electronically Signed: Priya Gonzalez MD at 9:28 EST , ADDENDUM: 11/25/23 0953 IMPRESSION: undefined EKG Initial EKG: Attestation: I personally reviewed and interpreted this EKG as follows: Comments: Atrial fibrillation with PVC noted. Ventricular rate of 78 bpm. Discharge Plan Triage Chief Complaint: Shortness of Breath ED Provider: Maxi Quiroga Dx/Rx/DC Orders Prescriptions: No Action mirtazapine 7.5 mg tablet 7.5 mg PO DAILY clonazepam [Klonopin] 0.5 mg tablet 0.5 mg PO DAILY PRN (Reason: anxiety) vitamins A,C,G-ewnl-lbngfo 1 EACH capsule 1 cap PO BID Iron 65 mg PO BID dw-ysz-jqztc-L4-emzmmkm-tnjfts 1 EACH tablet 1 tab PO DAILY doxepin 50 mg capsule 50 mg PO QHS Patient Comments: TAKE 1 CAPSULE BY MOUTH AT BEDTIME buspirone 15 mg tablet 15 mg PO BID Patient Comments: TAKE 1 TABLET BY MOUTH TWICE DAILY melatonin 5 mg tablet 5 mg PO QHS tamsulosin 0.4 MG capsule 0.8 mg PO DAILY@1730 Humalog Mix 50-50 KwikPen 100 unit/mL (50-50) insulin pen See Rx Instructions SC .COMPLEX Rx Instructions: 30 units subcutaneously AM; 28 units PM furosemide [Lasix] 40 mg tablet 40 mg PO DAILY Qty: 90 3RF apixaban 2.5 mg tablet 2.5 mg PO BID Qty: 60 11RF amlodipine 10 mg tablet 10 mg PO DAILY Qty: 90 3RF metoprolol tartrate 25 mg tablet 12.5 mg PO BID Qty: 90 3RF lisinopril 20 mg tablet 20 mg PO BID Qty: 180 3RF atorvastatin 40 mg tablet 40 mg PO DAILY Qty: 90 3RF Primary Care Provider: Jeremi Morel Referrals: Jeremi Morel MD [Primary Care Provider] - What to do if you have Problems For any increased pain, shortness of breath, bleeding, nausea or vomiting, chestpain, or any unexpected problems, contact your Primary Care Provider. Call [facility] ([phone]) or report to the closest Emergency Room. Call 911 if necessary. 11/25/23 1487 <Electronically signed by Maxi Quiroga DO> Cosigner Signature (if applicable): CC: Dr. Jeremi Morel MD ~ Signed [facility] Work Phone: 1(774) 359-907111-13-2023 Miscellaneous Notes* Telephone Encounter - Maxi Flores APRN.SAMMY PRAJAPATI - 09/25/2023 4:48 PM EST Noted. Reviewed. Maxi Flores APRN.CNP, DNP * Telephone Encounter - Mary Schmitt LPN - 09/25/2023 4:17 PM EST Received outside medical records- scanned to [employer] via [employer]. Notified Maxi Flores APRN, CNP, DNP.Mary Schmitt LPN documented in this encounterC[facility]11-13-2023 Instructions* Patient Instructions* Maxi Flores APRN.CNP, DNP - 09/25/2023 10:36 AM EST Follow up with Maxi Flores APRN.CNP, DNP in 8 weeks Continue with Flomax Discussed the role of pharmacotherapy, including risks, benefits and alternatives: Alpha-elijah therapy [e.g. Tamsulosin] - potential risks of [...] you again and maintaining your health. Maxi Flores APRN.CNP, DNP documented in this encounterCrystal Clinic [facility]11-13-2023 History of Present illness Narrative* Maxi Flores APRN.ALO, SAMMY - 09/25/2023 10:00 AM EST [facility] MALE PATIENT - HISTORY AND PHYSICAL EXAMINATION PATIENT: Osvaldo Lucio (88 year old) 09/25/2023 PCP: Jeremi Morel MD New patient to Urology CHIEF COMPLAINT: BPH/LUTS HISTORY OF PRESENT ILLNESS: 88 year old year old male with BPH/LUTS. Main complaint is urinary frequency. 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 Recently treated [...] again less than two hours after you finishedurinating? SCORE: 5- Almost always 3)INTERMITTENCY Over the [...] up to urinate from the time you wentto bed at night until the time you [...] Acute on chronic diastolic (congestive) heart failure ([facility]) 05/27/2019 Aortic stenosis 08/23/2012 Aortic valve replaced 01/01/2019 Bipolar disorder, unspecified ([facility]) BPH with urinary obstruction Chronic kidney disease (CKD), stage III (moderate) ([facility]) 03/12/2010 DM type 2 causing CKD stage 3 ([facility]) 07/30/2015 Dysuria Essential hypertension Frequency of urination Hyperlipidemia cholesterol 197 08/27/2012 [facility] Impaired glucose metabolism HGBA1C 6.1 08/27/2012 [facility]. He has since 2006 had A1C [...] in the evenings with meals (Patient taking differently:Inject 30 units in the morning and 28 [...] (Patient not taking: Reported on 09/25/2023) vit A,C,B-Pjgf-Osgfsd ([facility]) 7,160-113-100 heuy-rb-wkyf tab Take 1 tablet by mouth twice daily with meals. (Patient not taking: Reported on 09/25/2023) No current facility-administered medications for this visit. LABS: No results found for this basename: uglucpoc,ubilipoc,uketonpoc,usgpoc,uhbpoc,uphpoc,upropoc,uuropoc ,unitpoc,uwbcpoc,ucolpoc,uclarpoc OTHER DATA: Creatinine Creatinine Date Value Ref Range Status 10/17/2022 1.31 (H) 0.73 - 1.22 mg/dL Final 05/01/2020 0.76 0.73 - 1.22 mg/dL Final 02/01/2019 1.17 0.73 - 1.22 mg/dL Final 10/22/2018 1.29 (H) 0.73 - 1.22 mg/dL Final PSA No results found for: "PSA" OFFICE DATA: POST-VOID RESIDUAL BLADDER VOLUME: YES, [...] (Temporal) Resp 16 Ht 172.7 cm (5' 8") Wt 90 kg (198 lb 6.4 oz) KqR206% BMI 30.17 kg/m GENERAL: alert, no distress, [...] (POC) Consultation requested by Dr. Jeremi Morel [address] [facility] [address] for an opinion regarding urinary freq and UTI and my final recommendations will be communicated back to the requesting physician by way of shared Medical record or letter via US mail. I spent a total of 42 minutes on the date of the service which included preparing to see the patient, [id number] patient care, completing clinical documentation, performing a medically appropriate examination, counseling and educating the patient/family/caregiver and ordering medications, tests, or procedures. Maxi Flores, SAMMY, SUPERVISOR [employer] Department of Urology [facility] * Mary Schmitt LPN - 09/25/2023 9:57 AM EST Verified name and date of . CC Post Void Residual HPI: Osvaldo Lucio is a 88 year old male. The patient is here now for an appointment with Landon Garcia, [place], [place], PA-COV. Procedure: Explained procedure to patient and verbalizes understanding. Performed a PVR. PATIENT UNABLE TO URINATE AT THIS TIME. . Results of scan: 267 mL The patient tolerated the procedure well. Plan: Appointment with Landon. documented in this encounterCrystal Clinic [facility]10-16-2023 History of Present illness Narrative* Jeremi Morel MD - 08/28/2023 2:33 PM EDT This note was created using [email or web address]. Subjective Patient presents with: UTI Osvaldo Lucio is a 88 year old male here with a caregiver. He started having urinary frequency around one weeks ago with incomplete emptying. He went to the [facility] clinic and was prescribed Cephalexin with no improvement. He returned to the [facility] clinic and urine culture was done. He [...] Hypertension Hyperlipidemia Bipolar Disorder, Unspecified ([facility]) Mitral Regurgitation Type 2 Diabetes Mellitus With Stage 3 Chronic Kidney Disease, With Long-Term Current Use of Insulin([facility]) Vitamin D Deficiency Spondylosis of Lumbar [...] 1 capsule by mouth once daily. vit A,C,P-Rymf-Jqygrk ([facility]) 7,160-113-100 krts-vr-wivv tab Take 1 tablet by mouth twice [...] recommendations. Jeremi Morel MD documented in this encounterCrystal [facility]09-13-2023 Miscellaneous Notes* Telephone Encounter - Khadra Madison LPN - 07/26/2023 8:48 AM EDT Patient has been identified [...] Khadra Madison LPN * Telephone Encounter - Addis Dominguez - 07/26/2023 8:33 AM EDT Patient has been identified by name and date of : Yes Requested Prescriptions Pending Prescriptions Disp Refills Lancets lancets 200 Each 3 Sig: Test blood sugar(s) 2 times daily. Dx: Type 2 DM - Uncontrolled E11.65 Insulin: No RX INSTRUCTIONS: Patient aware RX will be sent to pharmacy. No need to notify patient. Addis Fowler documented in this encounterCrystal Clinic [facility]06-23-2023 History of Present illness Narrative* Jeremi Morel MD - 05/05/2023 8:57 AM EDT This note was created using [email or web address]. Subjective Osvaldo Lucio is a 87 year [...] [facility], and [facility]. We refill [...] Kidney Disease, With Long-Term Current Use of Insulin([facility]) Vitamin D Deficiency Spondylosis of Lumbar [...] 1 tablet by mouth once daily. vit A,C,T-Pcms-Oynqfx ([facility]) 7,160-113-100 qfkh-hy-nptx tab Take 1 tablet by mouth twice [...] updated. Jeremi Morel MD documented in this encounterCrystal [facility] Center2023 Miscellaneous Notes* Telephone Encounter - Chandra Cardozo Ma - 04/17/2023 11:18 AM EDT KAT: 01/31/2023 Last refill: 04/22/2022 QTY: 90 Refills: 3 * Telephone Encounter - Skyla Narvaez Pss - 04/17/2023 8:52 AM EDT Patient has been identified by name and date of : Yes Requested Prescriptions Pending Prescriptions Disp Refills tamsulosin (FLOMAX) 0.4 mg 90 capsule 3 Sig: Take 1 capsule by mouth once daily. RX INSTRUCTIONS: Patient aware RX will be sent to pharmacy. No need to notify patient. Skyla Narvaez Pss documented in this encounterCrystal [facility]03-21-2023 Instructions* Patient Instructions* Jeremi Morel MD - 01/31/2023 9:18 AM EDT TRY SERTRALINE. CALL FOR REFILL IF EFFECTIVE AND UNABLE TO SEE [facility] PROVIDER. SCHEDULE SOONER APPOINTMENT WITH [facility]. documented in this encounterCrystal Clinic [facility]03-21-2023 History of Present illness Narrative* Jeremi Morel MD - 01/31/2023 8:55 AM EDT This note was created using [email or web address]. Subjective Osvaldo Lucio is a 87 year old male. He complained of increased depression, insomnia, and loss of appetite for the past several weeks. [facility] and was taking his medications. He was not scheduled to follow up there for 5 or 6 months. His hypertension was elevated today, but historically controlled. He was scheduled to see [facility] in 2 weeks. Other than tamsulosin, all [...] dysphoric mood and sleep disturbance. Negative for self-injuryand suicidal ideas. 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 vit A,C,X-Qwzb-Ohzxhq ([facility]) 7,160-113-100 htgc-cc-mwrm tab Take 1 tablet by mouth twice [...] No ulcers, calluses, abnormal pulses Decreased bilaterally, sensitiveto 10 gm monofilament, and nails notable for [...] done: Medication: sertraline. Benefits: Medication may help moodin the short term and in the director long term care. Risks: Possible side effects were discussed including [...] 585.3, V58.67, ICD10: E11.22, N18.31, Z79.4 Per [facility]. 3. Paroxysmal atrial fibrillation (HCC) - ICD9: 427.31, ICD10: I48.0 Controlled and managed by the [facility]. 4. Essential hypertension - ICD9: 401.9, ICD10: I10 Elevated today. I will defer to the [facility]. Jeremi Morel MD documented in this encounterCrystal Clinic [facility]03-21-2023 Evaluation note* Diagnosis Bipolar affective disorder, remission status unspecified (HCC)- Primary Type 2 diabetes mellitus with stage 3a chronic kidney disease, with long-term current use of insulin (HCC) Paroxysmal atrial fibrillation (HCC) Atrial fibrillation Essential hypertension Unspecified essential hypertension documented in this encounter [facility]12-12-[facility]22 Miscellaneous Notes* Telephone Encounter - Addis Sanchez [...] his furosemide. This should be from his mirror inspector. I sent 30 days and 2 refills. [...] appt with pcp 01/31/23 documented in this encounterCrystal [facility]12-02-2022 Miscellaneous Notes* Telephone Encounter - Norma [...] Thank you. Daniela Hicks documented in this encounterCrystal Clinic [facility]09-20-2022 History of Present illness Narrative* Mercedez [...] BP average at home in the 120's/60's. Public Policy Professor is Dr. Diggs. Afib controlled, anticoagulated with [...] 2 causing CKD stage 3 (HCC) 07/30/2015 Essential hypertension Hyperlipidemia cholesterol 197 08/27/2012 [facility] Impaired glucose metabolism HGBA1C 6.1 08/27/2012 [facility]. He has since 2006 had A1C [...] [facility] REPLACEMENT, AORTIC VALVE, WITH CAR 01/03/2019 ALLERGIES [...] 1 tablet by mouth once daily. vit A,C,L-Hnre-Ttchjm ([facility]) 7,160-113-100 tuqa-xc-gkob tab Take 1 tablet by mouth twice [...] (Temporal) Resp 16 Ht 175.3 cm (5' 9") Wt 95.7 kg (211 lb) BMI 31.16 [...] 2 causing CKD stage 3 (HCC) 07/30/2015 Essential hypertension Hyperlipidemia cholesterol 197 08/27/2012 [facility] Impaired glucose metabolism HGBA1C 6.1 08/27/2012 [facility]. He has since 2006 had A1C [...] [facility] REPLACEMENT, AORTIC VALVE, WITH CAR 01/03/2019 ALLERGIES: [...] the time. List of current specialists seen: Jewish History Professor- Dr. Chandra Lo Public Policy Professor- Dr. Diggs Driving School Instructor- Dr. Culp End of Live Planning discussed [...] (Temporal) Resp 16 Ht 175.3 cm (5' 9") Wt 95.7 kg (211 lb) BMI 31.16 [...] at this time. - Patient was counseled bqix-da-roib by myself (the billing provider) for the following immunizations and vaccine components, including side effects: Influenza. Patient consents for immunization and understands risks and benefits. A VIS sheet on each immunization was given to the patient. He declined COVID booster today - Follow up for medicare annual exam in one year Mercedez Mensah APRN.CNP [facility] Miscellaneous Notes* Telephone Encounter - Khadra [...] [place] LPN * Telephone Encounter - Jacqueline Fowler - 04/21/2022 8:48 AM EDT Patient has [...] patient. Jacqueline Rizzo Pss documented [facility] History of Past illness Narrative* Problem Noted Date Resolved Date Skin nodule 12/05/2017 05/27/2019 Personal history of smoking 05/01/201404/2016 Overview: Quit using tobacco 2003 Chronic kidney disease (CKD), stage III (moderat e) 03/12/2010 03/26/2020 Overview: Dr. Kerri Ornelas, [facility] Impaired glucose metabolism 02/2016 Overview: HGBA1C 6.1 08/27/2012 [facility]. He has since 2006 had A1C values in the 5.7-6.1 range and is on medications and does follow any dietary regime. Two times in 2008, the value was 6.5 and 6.8%. I discussed this with him and will change to impaired glucose. Nonspecific abnormal results of liver function s daksha 12/05/2017 documented as of this encounter (statuses as of 04/22/2022) [facility] History of Past illness Narrative* Problem Noted Date Resolved Date Skin nodule 12/05/2017 05/27/2019 Personal history of smoking 05/01/201404/2016 Overview: Quit using tobacco 2003 Chronic kidney disease (CKD), stage III (moderat e) 03/12/2010 03/26/2020 Overview: Dr. Kerri Ornelas, [facility] Impaired glucose metabolism 02/2016 Overview: HGBA1C 6.1 08/27/2012 [facility]. He has since 2006 had A1C values in the 5.7-6.1 range and is on medications and does follow any dietary regime. Two times in 2008, the value was 6.5 and 6.8%. I discussed this with him and will change to impaired glucose. Nonspecific abnormal results of liver function s cleo 12/05/2017 documented as of this encounter (statuses as of 08/02/2022) [facility] of Past illness Narrative* Problem Noted Date Resolved Date Skin nodule 12/05/2017 05/27/2019 Personal history of smoking 05/01/201404/2016 Overview: Quit using tobacco 2003 Chronic kidney disease (CKD), stage III (moderat e) 03/12/2010 03/26/2020 Overview: Dr. Kerri Ornelas, [facility] Impaired glucose metabolism 02/2016 Overview: HGBA1C 6.1 08/27/2012 [facility]. He has since 2006 had A1C values in the 5.7-6.1 range and is on medications and does follow any dietary regime. Two times in 2008, the value was 6.5 and 6.8%. I discussed this with him and will change to impaired glucose. Nonspecific abnormal results of liver function s daksha 12/05/2017 documented as of this encounter (statuses as of 10/14/2022) [facility] of Past illness Narrative* Problem Noted Date Resolved Date Skin nodule 12/05/2017 05/27/2019 Personal history of smoking 05/01/201404/2016 Overview: Quit using tobacco 2003 Chronic kidney disease (CKD), stage III (moderat e) 03/12/2010 03/26/2020 Overview: Dr. Kerri Ornelas, [facility] Impaired glucose metabolism 02/2016 Overview: HGBA1C 6.1 08/27/2012 [facility]. He has since 2006 had A1C values in the 5.7-6.1 range and is on medications and does follow any dietary regime. Two times in 2008, the value was 6.5 and 6.8%. I discussed this with him and will change to impaired glucose. Nonspecific abnormal results of liver function s daksha 12/05/2017 documented as of this encounter (statuses as of 10/24/2022) [facility] of Past illness Narrative* Problem Noted Date Resolved Date Skin nodule 12/05/2017 05/27/2019 Personal history of smoking 05/01/201404/2016 Overview: Quit using tobacco 2003 Chronic kidney disease (CKD), stage III (moderat e) 03/12/2010 03/26/2020 Overview: Dr. Kerri Ornelas [facility] Impaired glucose metabolism 02/2016 Overview: HGBA1C 6.1 08/27/2012 [facility]. He has since 2006 had A1C values in the 5.7-6.1 range and is on medications and does follow any dietary regime. Two times in 2008, the value was 6.5 and 6.8%. I discussed this with him and will change to impaired glucose. Nonspecific abnormal results of liver function s daksha 12/05/2017 documented as of this encounter (statuses as of 01/31/2023) [facility] of Past illness Narrative* Problem Noted Date Resolved Date Skin nodule 12/05/2017 05/27/2019 Personal history of smoking 05/01/201404/2016 Overview: Quit using tobacco 2003 Chronic kidney disease (CKD), stage III (moderat e) 03/12/2010 03/26/2020 Overview: Dr. Kerri Ornelas [facility] Impaired glucose metabolism 02/2016 Overview: HGBA1C 6.1 08/27/2012 [facility]. He has since 2006 had A1C values in the 5.7-6.1 range and is on medications and does follow any dietary regime. Two times in 2008, the value was 6.5 and 6.8%. I discussed this with him and will change to impaired glucose. Nonspecific abnormal results of liver function s daksha 12/05/2017 documented as of this encounter (statuses as of 04/17/2023) [facility] of Past illness Narrative* Problem Noted Date Resolved Date Skin nodule 12/05/2017 05/27/2019 Personal history of smoking 05/01/201404/2016 Overview: Quit using tobacco 2004 Aortic stenosis 08/23/2012 05/05/2023 Chronic kidney disease (CKD), stage III (moderat e) 03/12/2010 03/26/2020 Overview: [facility] Impaired glucose metabolism 02/2016 Overview: HGBA1C 6.1 08/27/2012 [facility]. He has since 2006 had A1C values in the 5.7-6.1 range and is on medications and does follow any dietary regime. Two times in 2008, the value was 6.5 and 6.8%. I discussed this with him and will change to impaired glucose. Nonspecific abnormal results of liver function s daksha 12/05/2017 documented as of this encounter (statuses as of 05/05/2023) [facility] of [facility] illness Narrative* Problem Noted Date Diagnosed Date Resolved Date Skin nodule 12/05/2017 05/27/2019 Personal history of smoking 05/01/2014 08/18/2016 Overview: Quit using tobacco 2003 Aortic stenosis 08/23/2012 05/05/2023 Chronic kidney disease (CKD) , stage III (moderate) 03/12/2010 03/26/2020 Overview: [facility] Impaired glucose metabolism 08/16/2016 Overview: HGBA1C 6.1 08/27/2012 [facility]. He has since 2006 had A1C values in the 5.7-6.1 range and is on medications and does follow any dietary regime. Two times in 2008, the value was 6.5 and 6.8%. I discussed this with him and will change to impaired glucose. Nonspecific abnormal results of liver function study 12/05/2017 documented as of this encounter (statuses as of 07/26/2023) [facility] of [facility] illness Narrative* Problem Noted Date Diagnosed Date Resolved Date Skin nodule 12/05/2017 05/27/2019 Personal history of smoking 05/01/2014 08/18/2016 Overview: Quit using tobacco 2004 Aortic stenosis 08/23/2012 05/05/2023 Chronic kidney disease (CKD) , stage III (moderate) 03/12/2010 03/26/2020 Overview: [facility] Impaired glucose metabolism 08/16/2016 Overview: HGBA1C 6.1 08/27/2012 [facility]. He has since 2006 had A1C values in the 5.7-6.1 range and is on medications and does follow any dietary regime. Two times in 2008, the value was 6.5 and 6.8%. I discussed this with him and will change to impaired glucose. Nonspecific abnormal results of liver function study 12/05/2017 documented as of this encounter (statuses as of 08/29/2023) [facility] of [facility] illness Narrative* Problem Noted Date Diagnosed Date Resolved Date Skin nodule 12/05/2017 05/27/2019 Personal history of smoking 05/01/2014 08/18/2016 Overview: Quit using tobacco 2003 Aortic stenosis 08/23/2012 05/05/2023 Chronic kidney disease (CKD) , stage III (moderate) 03/12/2010 03/26/2020 Overview: [facility] Impaired glucose metabolism 08/16/2016 Overview: HGBA1C 6.1 08/27/2012 [facility]. He has since 2006 had A1C values in the 5.7-6.1 range and is on medications and does follow any dietary regime. Two times in 2008, the value was 6.5 and 6.8%. I discussed this with him and will change to impaired glucose. Nonspecific abnormal results of liver function study 12/05/2017 documented as of this encounter (statuses as of 09/25/2023) [facility] of [facility] illness Narrative* Problem Noted Date Diagnosed Date Resolved Date Skin nodule 12/05/2017 05/27/2019 Personal history of smoking 05/01/2014 08/18/2016 Overview: Quit using tobacco 2003 Aortic stenosis 08/23/2012 05/05/2023 Chronic kidney disease (CKD) , stage III (moderate) 03/12/2010 03/26/2020 Overview: Dr. Kerri Ornelas, [facility] Impaired glucose metabolism 08/16/2016 Overview: HGBA1C 6.1 08/27/2012 [facility]. He has since 2006 had A1C values in the 5.7-6.1 range and is on medications and does follow any dietary regime. Two times in 2008, the value was 6.5 and 6.8%. I discussed this with him and will change to impaired glucose. Nonspecific abnormal results of liver function study 12/05/2017 documented as of this encounter (statuses as of 09/26/2023) [facility] of Past illness Narrative* Problem Noted Date Diagnosed Date Resolved Date Skin nodule 12/05/2017 05/27/2019 Personal history of smoking 05/01/2014 08/18/2016 Overview: Quit using tobacco 2003 Aortic stenosis 08/23/2012 05/05/2023 Chronic kidney disease (CKD) , stage III (moderate) 03/12/2010 03/26/2020 Overview: Dr. Kerri Ornelas, [facility] Impaired glucose metabolism 08/16/2016 Overview: HGBA1C 6.1 08/27/2012 [facility]. He has since 2006 had A1C values in the 5.7-6.1 range and is on medications and does follow any dietary regime. Two times in 2008, the value was 6.5 and 6.8%. I discussed this with him and will change to impaired glucose. Nonspecific abnormal results of liver function study 12/05/2017 documented as of this encounter (statuses as of 10/03/2023) [facility] of Past illness Narrative* Problem Noted Date Diagnosed Date Resolved Date Skin nodule 12/05/2017 05/27/2019 Personal history of smoking 05/01/2014 08/18/2016 Overview: Quit using tobacco 2004 Aortic stenosis 08/23/2012 05/05/2023 Chronic kidney disease (CKD) , stage III (moderate) 03/12/2010 03/26/2020 Overview: Dr. Kerri Ornelas, [facility] Impaired glucose metabolism 08/16/2016 Overview: HGBA1C 6.1 08/27/2012 [facility]. He has since 2006 had A1C values in the 5.7-6.1 range and is on medications and does follow any dietary regime. Two times in 2008, the value was 6.5 and 6.8%. I discussed this with him and will change to impaired glucose. Nonspecific abnormal results of liver function study 12/05/2017 documented as of this encounter (statuses as of 12/17/2023) [facility] of Past illness Narrative* Problem Noted Date Diagnosed Date Resolved Date Skin nodule 12/05/2017 05/27/2019 Personal history of smoking 05/01/2014 08/18/2016 Overview: Quit using tobacco 2003 Aortic stenosis 08/23/2012 05/05/2023 Chronic kidney disease (CKD) , stage III (moderate) 03/12/2010 03/26/2020 Overview: Dr. Kerri Ornelas, [facility] Impaired glucose metabolism 08/16/2016 Overview: HGBA1C 6.1 08/27/2012 [facility]. He has since 2006 had A1C values in the 5.7-6.1 range and is on medications and does follow any dietary regime. Two times in 2008, the value was 6.5 and 6.8%. I discussed this with him and will change to impaired glucose. Nonspecific abnormal results of liver function study 12/05/2017 documented as of this encounter (statuses as of 01/02/2024) [facility] of [facility] illness Narrative* Problem Noted Date Diagnosed Date Resolved Date Skin nodule 12/05/2017 05/27/2019 Personal history of smoking 05/01/2014 08/18/2016 Overview: Quit using tobacco 2004 Aortic stenosis 08/23/2012 05/05/2023 Chronic kidney disease (CKD) , stage III (moderate) 03/12/2010 03/26/2020 Overview: Dr. Kerri Ornelas, [facility] Impaired glucose metabolism 08/16/2016 Overview: HGBA1C 6.1 08/27/2012 [facility]. He has since 2006 had A1C values in the 5.7-6.1 range and is on medications and does follow any dietary regime. Two times in 2008, the value was 6.5 and 6.8%. I discussed this with him and will change to impaired glucose. Nonspecific abnormal results of liver function study 12/05/2017 documented as of this encounter (statuses as of 02/21/2024) [facility] Jim Haque [facility] November 27, 2023 4:56pm Note Date/Time November 27, 2023 4 :52pm [facility] Medical Records Department [address] [place] [address] Instructions for Home/Discharge Instructions 11/27/23 1649 MR#: [id number] Acct: [id number] Name: OSVALDO LUCIO Asael Rep #:[id number] : [id number] 88 From: Jim Haque DO PCP: Dr. Jeremi Morel MD Status:A DM IN Discharge Instructions Diet Discharge Diet: 1800 Calorie Control Diet Activity Discharge Activity: Return to Normal Activity Weight Bearing Status: Full weight bearing Follow Up Care Test Results: Test results from this visit will be discussed in further detail at your follow- up appointment, if applicable. Discharge Plan Admission Admit Date/Time: 11/25/23 11:11 Primary Reason for Your Visit: congestive heart failure Attending Provider: Jim Haque Primary Care Provider: Jeremi Morel Instructions Additional Instructions / Restrictions: Follow-up with your urologist within 1 month Discharge Orders/Prescriptions Prescriptions: New finasteride [Proscar] 5 mg tablet 5 mg PO DAILY Qty: 30 0RF Rx Instructions: take one daily for prostate furosemide [Lasix] 40 mg tablet 40 mg PO BID Qty: 60 0RF potassium chloride 10 mEq tablet extended release 20 meq PO DAILY Qty: 60 0RF Continued mirtazapine 7.5 mg tablet 7.5 mg PO DAILY clonazepam [Klonopin] 0.5 mg tablet 0.5 mg PO DAILY PRN (Reason: anxiety) vitamins A,C,P-odlv-rbcopz 1 EACH capsule 1 cap PO BID Iron 65 mg PO BID [id number] 1 EACH tablet 1 tab PO DAILY doxepin 50 mg capsule 50 mg PO QHS Patient Comments: TAKE 1 CAPSULE BY MOUTH AT BEDTIME buspirone 15 mg tablet 15 mg PO BID Patient Comments: TAKE 1 TABLET BY MOUTH TWICE DAILY melatonin 5 mg tablet 5 mg PO QHS tamsulosin 0.4 MG capsule 0.8 mg PO DAILY@1730 Humalog Mix 50-50 KwikPen 100 unit/mL (50-50) insulin pen See Rx Instructions SC .COMPLEX Rx Instructions: 30 units subcutaneously AM; 28 units PM apixaban 2.5 mg tablet 2.5 mg PO BID Qty: 60 11RF amlodipine 10 mg tablet 10 mg PO DAILY Qty: 90 3RF metoprolol tartrate 25 mg tablet 12.5 mg PO BID Qty: 90 3RF lisinopril 20 mg tablet 20 mg PO BID Qty: 180 3RF atorvastatin 40 mg tablet 40 mg PO DAILY Qty: 90 3RF No Action furosemide [Lasix] 40 mg tablet 40 mg PO DAILY Qty: 90 3RF Referrals / Follow Up: Jeremi Morel MD [Primary Care Provider] - Within 2 Weeks Disposition Disposition (needs filled in before D/C Order can be placed): Home, Self Care 11/27/23 8156<Electronically signed by Jim Haque DO>Jim Haque DO CC: Dr. Jeremi Morel MD ~ Signed [facility] Work Phone: Evaluation note* Diagnosis BPH with urinary obstruction Hypertrophy of prostate with urinary obstruction and other lower urinary tract symptoms (LUTS) Type 2 diabetes mellitus with stage 3 chronic kidney disease, without long-term current use of insulin (HCC) [facility] Diagnosis Medicare annual wellness visit, subsequent- [...] inoculation against influenza [facility] Diagnosis Acute on chronic diastolic (congestive) heart failure (HCC)- Primary documented in this encounter [facility] note* Diagnosis BPH with urinary obstruction Hypertrophy of prostate with urinary obstruction and other lower urinary tract symptoms (LUTS) documented in this encounter [facility] note* Diagnosis Essential hypertension- Primary Unspecified essential [...] status unspecified (HCC) [facility]* Diagnosis Type 2 diabetes mellitus with stage 3 chronic kidney disease, without long-term current use of insulin ([facility]) documented in this encounter [facility] noteNo assessment information availableWKettering [facility] Work Phone: Evaluation note* Diagnosis Dysuria- Primary BPH with urinary obstruction Hypertrophy of prostate with urinary obstruction and other lower urinary tract symptoms (LUTS) Frequency of urination Urinary frequency documented in this encounter [facility] note* Diagnosis Onset Date Resolution Status Urinary tract infection none active Urinary tract infection acut e [facility] Work Phone: Evaluation note* Diagnosis Onset Date Resolution Status Urinary tract infection none active Urinary tract infection acut e Urinary symptom or sign none active [facility] Work Phone: Evaluation note* Diagnosis Benign prostatic hyperplasia with urinary frequency- Primary Frequency of urination Urinary frequency Screening for genitourinary condition Screening for other and unspecified genitourinary condition [facility]* Diagnosis Onset Date Resolution Status Urinary tract infection none active Urinary tract infection acut e Urinary symptom or sign none active Anticoagulated acute Congestive heart failure acu te Diabetes chronic H/O aortic valve replacement January 01, 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, 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 Paroxysmal atrial fibrillation [facility] Work Phone: Evaluation note* Diagnosis BPH with urinary obstruction Hypertrophy of prostate with urinary obstruction and other lower urinary tract symptoms (LUTS) [facility]* Diagnosis Benign prostatic hyperplasia with urinary frequency- Primary Frequency of urination Urinary frequency Type 2 diabetes mellitus with stage 3a chronic kidney disease, 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 Hypertrophy of prostate with urinary obstruction and other lower urinary tract symptoms (LUTS) [facility]* Diagnosis Type 2 diabetes mellitus with stage 3a chronic kidney disease, with long-term current use of insulin (HCC) [facility]* Diagnosis Shortness of breath- Primary Subacute cough Cough Acute on chronic diastolic (congestive) heart failure (HCC) 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 behavior of skin Shortness of breath Subacute cough Cough [facility] Diagnosis Shortness of breath Subacute cough Cough [facility]* Diagnosis Benign prostatic hyperplasia with urinary frequency- Primary Frequency of urination Urinary frequency Type 2 diabetes mellitus with stage 3a chronic kidney disease, with long-term current use of insulin (HCC) [facility]* Diagnosis Pleural effusion- Primary Unspecified pleural effusion BPH with urinary obstruction Hypertrophy of prostate with urinary obstruction and other lower urinary tract symptoms (LUTS) Paroxysmal atrial fibrillation (HCC) Atrial fibrillation Essential hypertension Unspecified essential hypertension Type 2 diabetes mellitus with stage 3a chronic kidney disease, with long-term current use of insulin (HCC) Chronic congestive heart failure, unspecified heart failure type (HCC) Bipolar affective disorder, current episode mixed, current episode severity unspecified (HCC) [facility]* Diagnosis Onset Date Resolution Status Admit Date SOB (shortness of breath) acute August 14, 2025 8:30am Chronic diastolic (congestive) heart failure chronic Octob er 2024 8:30am Essential (primary) hypertension chronic August 14 8:30am Hyperlipidemia chronic August 8:30am Non-rheumatic aortic stenosis chronic August 14 8:30am Paroxysmal atrial fibrillation chronic August 14 8:30am 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, 2019 inactive August 14, 2025 8:30am [facility] Work Phone: Hospital course Narrative No data available for this section [facility] Reason for referral (narrative)No reason for referral information [facility] Work Phone: Summary Purpose Family History No Family History Records Found Relationship Condition Age at Onset Recorded Date/T kanchan father Cerebrovascular accident (CVA) Unknown mother Chronic obstructive pulmonary disease Unk nown Advance Directives No Advanced Directives Records Found Advance Directive Response Recorded Date/ Time Advance Directives Yes July 10:09am Living Will Yes August 08, 2023 10:09am Power of Drapery Counselor Yes July 10:09am Advance Directive Response Recorded Date/ Time Advance Directives Yes August 22, 2023 8:03am Living Will Yes August 22 8:03am Power of Drapery Counselor Yes August 22, 2023 8:03am Advance Directive Response Recorded Date/ Time Advance Directives Yes August 22, 2023 7:03am Living Will Yes August 22 7:03am Power of Drapery Counselor Yes August 22, 2023 7:03am Advance Directive Response Recorded Date/ Time Name of Medical Power of Drapery Counselor Jamaal Mayers November 25, 2023 6:31am Advance Directives Yes August 22, 2023 7:03am Living Will Yes November 25 6:31am Power of Drapery Counselor Yes November 25, 2023 6:31am Advance Directive Response Recorded Date/ Time Name of Medical Power of Drapery Counselor Jamaal Mayers November 25, 2023 11:50am Advance Directives Yes August 22, 2023 7:03am Living Will Yes November 25 11:50am Power of Drapery Counselor Yes November 25, 2023 11:50am Advance Directive Response Recorded Date/ Time Advance Directives Yes August 22, 2023 8:03am Chief Complaint and Reason for Visit Chief Complaint CONCERN FOR UTI Chief Complaint CONCERN FOR UTI 2ND VISIT/URINARY CONCERNS Chief Complaint CONCERN FOR UTI 2ND VISIT/URINARY CONCERNS Urinary tract infection URINARY COMPLAINTS Reason for Visit Urinary tract infect ion Urinary tract infection Chief Complaint CONCERN FOR UTI 2ND VISIT/URINARY CONCERNS Urinary tract infection URINARY COMPLAINTS Urinary complaints Reason for Visit Urinary tract infect ion Urinary tract infection Urinary symptom or sign Chief Complaint CONCERN FOR UTI 2ND VISIT/URINARY CONCERNS Urinary tract infection URINARY COMPLAINTS Urinary complaints ACUTE ON CHRONIC CHF IWTH HYPOXIA Reason for Visit Urinary tract infect ion Urinary tract infection Urinary symptom or sign Anticoagulated Congestive heart failure Diabetes H/O aortic valve replacement H/O coronary artery bypass surgery Paroxysmal atrial fibrillation Chief Complaint CONCERN FOR UTI 2ND VISIT/URINARY CONCERNS Urinary tract infection URINARY COMPLAINTS Urinary complaints ACUTE ON CHRONIC CHF IWTH HYPOXIA ACUTE ON CHRONIC CHF IWTH HYPOXIA ACUTE ON CHRONIC CHF IWTH HYPOXIA Reason for Visit Urinary tract infect ion Urinary tract infection Urinary symptom or sign Anticoagulated Congestive heart failure Diabetes H/O aortic valve replacement H/O coronary artery bypass surgery Paroxysmal atrial fibrillation Chief Complaint Admit Date Shortness of breath, EKG needed August 14, 2025 8:30am Reason for Visit Admit Date SOB (shortness of breath) August 14 8:30am Chronic diastolic (congestive) heart kay lure August 14, 2025 8:30am Essential (primary) hypertension August 14, 2025 8:30am Hyperlipidemia August 14, 2025 8: 30am Non-rheumatic aortic stenosis August 8:30am Paroxysmal atrial fibrillation August 142024 8:30am H/O coronary artery bypass surgery Octob er 2024 8:30am Reason for Referral Specialty Diagnoses / Procedures Referred By Elías richard Referred To Contact Urology Diagnoses BPH with urinary obstruction Frequency of urination Procedures CONSULT TO UROLOGY OFFICE/OUTPATIENT [facility] 60-74 MINUTES Jeremi Morel MD [address] [place] [address] Referral ID Status Reason Start Date Expiration Date Visits Requested Visits Authorized [id number] Pending Review PCP Requested Referral 3 08/27/2024 1 1 Additional Source Comments (unrecognized sect ion and content) No Status Records FoundNo Status Records FoundNo Status Records FoundNo Status Records FoundNo Status Records FoundNo Status Records Found INFORMATION SOURCE (unrecogn ized section and content) DATE CREATED AUTHOR 05/04/[address] [facility] [place] [place] [facility] DATE CREATED AUTHOR AUTHOR'S ORGANIZ ATION 05/07/2018 [facility] DATE CREATED AUTHOR AUTHOR'S ORGANIZ ATION 01/24/2019 [facility] ([place]) DATE CREATED AUTHOR AUTHOR'S ORGANIZ ATION 12/19/[address] [facility] DATE CREATED AUTHOR AUTHOR'S ORGANIZ ATION 01/15/2025 [facility] DATE CREATED AUTHOR AUTHOR'S ORGANIZ ATION 09/23/2025 [facility] Source Comments (unrecognize d section and content) In the event this informatio n is protected by the Federal Confidentiality of Alcohol and Drug Abuse Patient Records regulations: The Federal rules restrict any use of the information to criminally investigate or prosecute any alcohol or drug abuse patient.[facility] Center[facility] the event this information is protected by the Federal Confidentiality of Alcohol and Drug Abuse Patient Records regulations: The Federal rules restrict any use of the information to criminally investigate or prosecute any alcohol or drug abuse patient.[facility] CenterIn the event this information is protected by the Federal Confidentiality of Alcohol and Drug Abuse Patient Records regulations: The Federal rules restrict any use of the information to criminally investigate or prosecute any alcohol or drug abuse patient.[facility] CenterIn the event this information is protected by the Federal Confidentiality of Alcohol and Drug Abuse Patient Records regulations: The Federal rules restrict any use of the information to criminally investigate or prosecute any alcohol or drug abuse patient.[facility] CenterIn the event this information is protected by the Federal Confidentiality of Alcohol and Drug Abuse Patient Records regulations: The Federal rules restrict any use of the information to criminally investigate or prosecute any alcohol or drug abuse patient.[facility] CenterIn the event this information is protected by the Federal Confidentiality of Alcohol and Drug Abuse Patient Records regulations: The Federal rules restrict any use of the information to criminally investigate or prosecute any alcohol or drug abuse patient.[facility] CenterIn the event this information is protected by the Federal Confidentiality of Alcohol and Drug Abuse Patient Records regulations: The Federal rules restrict any use of the information to criminally investigate or prosecute any alcohol or drug abuse patient.[facility] CenterIn the event this information is protected by the Federal Confidentiality of Alcohol and Drug Abuse Patient Records regulations: The Federal rules restrict any use of the information to criminally investigate or prosecute any alcohol or drug abuse patient.[facility] CenterIn the event this information is protected by the Federal Confidentiality of Alcohol and Drug Abuse Patient Records regulations: The Federal rules restrict any use of the information to criminally investigate or prosecute any alcohol or drug abuse patient.[facility] CenterIn the event this information is protected by the Federal Confidentiality of Alcohol and Drug Abuse Patient Records regulations: The Federal rules restrict any use of the information to criminally investigate or prosecute any alcohol or drug abuse patient.[facility] CenterIn the event this information is protected by the Federal Confidentiality of Alcohol and Drug Abuse Patient Records regulations: The Federal rules restrict any use of the information to criminally investigate or prosecute any alcohol or drug abuse patient.[facility] CenterIn the event this information is protected by the Federal Confidentiality of Alcohol and Drug Abuse Patient Records regulations: The Federal rules restrict any use of the information to criminally investigate or prosecute any alcohol or drug abuse patient.[facility] CenterIn the event this information is protected by the Federal Confidentiality of Alcohol and Drug Abuse Patient Records regulations: The Federal rules restrict any use of the information to criminally investigate or prosecute any alcohol or drug abuse patient.[facility] CenterIn the event this information is protected by the Federal Confidentiality of Alcohol and Drug Abuse Patient Records regulations: The Federal rules restrict any use of the information to criminally investigate or prosecute any alcohol or drug abuse patient.[facility] CenterIn the event this information is protected by the Federal Confidentiality of Alcohol and Drug Abuse Patient Records regulations: The Federal rules restrict any use of the information to criminally investigate or prosecute any alcohol or drug abuse patient.[facility] CenterIn the event this information is protected by the Federal Confidentiality of Alcohol and Drug Abuse Patient Records regulations: The Federal rules restrict any use of the information to criminally investigate or prosecute any alcohol or drug abuse patient.[facility] CenterIn the event this information is protected by the Federal Confidentiality of Alcohol and Drug Abuse Patient Records regulations: The Federal rules restrict any use of the information to criminally investigate or prosecute any alcohol or drug abuse patient.[facility] CenterIn the event this information is protected by the Federal Confidentiality of Alcohol and Drug Abuse Patient Records regulations: The Federal rules restrict any use of the information to criminally investigate or prosecute any alcohol or drug abuse patient.[facility] CenterIn the event this information is protected by the Federal Confidentiality of Alcohol and Drug Abuse Patient Records regulations: The Federal rules restrict any use of the information to criminally investigate or prosecute any alcohol or drug abuse patient.[facility] CenterIn the event this information is protected by the Federal Confidentiality of Alcohol and Drug Abuse Patient Records regulations: The Federal rules restrict any use of the information to criminally investigate or prosecute any alcohol or drug abuse patient.[facility] CenterIn the event this information is protected by the Federal Confidentiality of Alcohol and Drug Abuse Patient Records regulations: The Federal rules restrict any use of the information to criminally investigate or prosecute any alcohol or drug abuse patient.[facility] CenterIn the event this information is protected by the Federal Confidentiality of Alcohol and Drug Abuse Patient Records regulations: The Federal rules restrict any use of the information to criminally investigate or prosecute any alcohol or drug abuse patient.[facility] CenterIn the event this information is protected by the Federal Confidentiality of Alcohol and Drug Abuse Patient Records regulations: The Federal rules restrict any use of the information to criminally investigate or prosecute any alcohol or drug abuse patient.[facility] CenterIn the event this information is protected by the Federal Confidentiality of Alcohol and Drug Abuse Patient Records regulations: The Federal rules restrict any use of the information to criminally investigate or prosecute any alcohol or drug abuse patient.[facility] CenterIn the event this information is protected by the Federal Confidentiality of Alcohol and Drug Abuse Patient Records regulations: The Federal rules restrict any use of the information to criminally investigate or prosecute any alcohol or drug abuse patient.[facility] CenterIn the event this information is protected by the Federal Confidentiality of Alcohol and Drug Abuse Patient Records regulations: The Federal rules restrict any use of the information to criminally investigate or prosecute any alcohol or drug abuse patient.[facility] CenterIn the event this information is protected by the Federal Confidentiality of Alcohol and Drug Abuse Patient Records regulations: The Federal rules restrict any use of the information to criminally investigate or prosecute any alcohol or drug abuse patient.[facility] Reason for Visit (unrecogniz ed section and content) Reason Onset Date Comments Refill Request 04/21/2022 Reason Onset Date Comments Immunizations 08/02/2022 Flu vaccination Reason Onset Date Comments Refill Request 10/13/2022 Reason Comments Results Reason Comments F/U 6 months Reason Onset Date Comments Refill Request 04/17/2023 Reason Comments F/U 3 Month Reason Onset Date Comments Refill Request 07/26/2023 Reason Comments UTI Reason Comments Consult Urinary Frequency Specialty Diagnoses / Procedures Referred By Elías richard Referred To Contact Urology Diagnoses BPH with urinary obstruction Frequency of urination Procedures CONSULT TO UROLOGY OFFICE/OUTPATIENT NEW HIGH MDM 60-74 MINUTES Jeremi Morel MD [address] [place] [address] Referral ID Status Reason Start Date Expiration Date Visits Requested Visits Authorized [id number] Pending Review PCP Requested Referral 3 08/27/2024 1 1 Reason Comments Outside medical records Reason Comments Opened In Error Reason Comments Refill Request Reason Comments Medicare Wellness Exam Reason Onset Date Comments Refill Request 02/21/2024 Reason Comments Follow Up Benign Prostatic Hypertrophy Reason Onset Date Comments Refill Request 04/01/2024 Reason Onset Date Comments Refill Request 04/19/2024 Reason Comments Cough Chest congestion, wh eezing, SOB x 2 weeks Reason Comments Patient Update Reason Comments Recheck Reason Comments Hospital F/U [facility] pleural effusion Care Teams (unrecognized sec tion and content) Assistant Food Service Manager Relationship Specialty Start Date End Date Jeremi Morel MD [address] [place] [address] PCP - General Internal Medicine 08/19/16 Caterina, Napoleon S [address] [place] [address] Physician Cardiology 02/01/19 Assistant Food Service Manager Relationship Specialty Start Date End Date Jeremi Morel MD [address] [facility] [place] [address] PCP - General Internal Medicine 08/19/16 Caterina, Thompson S [address] [place] [address] Physician Cardiology 02/01/19 Assistant Food Service Manager Relationship Specialty Start Date End Date Jeremi Morel MD [address] [facility] [place] [address] PCP - General Internal Medicine 08/19/16 Caterina, Napoleon S [address] [place] [address] Physician Cardiology 02/01/19 Assistant Food Service Manager Relationship Specialty Start Date End Date Jeremi Morel MD [address] [facility] [place] [address] PCP - General Internal Medicine 08/19/16 Caterina, Thompson S [address] [place] [address] Physician Cardiology 02/01/19 Assistant Food Service Manager Relationship Specialty Start Date End Date Jeremi Morel MD [address] [facility] [place] [address] PCP - General Internal Medicine 08/19/16 Caterina, Napoleon S [address] [facility] [address] [place] [address] Physician Cardiology 02/01/19 Assistant Food Service Manager Relationship Specialty Start Date End Date Jeremi Morel MD [address] [place] [address] PCP - General Internal Medicine 08/19/16 Alfie Diggsril S [address] [place] [address] Physician Cardiology 02/01/19 Assistant Food Service Manager Relationship Specialty Start Date End Date Jeremi Morel MD [address] [place] [address] PCP - General Internal Medicine 08/19/16 Thompson Diggs [address] [place] [address] Physician Cardiology 02/01/19 Team Status: Active Member Role Status Dates Dr. Jeremi Morel MD Family Provider Active Dr. Jeremi Morel MD Primary Care Provider Active Team Status: Inactive Member Role Status Dates Dr. Jeremi Morel MD Primary Care Provider, Refer ring Provider Active MARCIAL Sherman Attending Provider Active Team Status: Inactive Member Role Status Dates Dr. Jeremi Morel MD Primary Care Provider Active MARCIAL Sherman Attending Provider, Referring Pr ovider Active Assistant Food Service Manager Relationship Specialty Start Date End Date Jeremi Morel MD [address] [place] [address] PCP - General Internal Medicine 08/19/16 Thompson Diggs MD [address] [facility] [address] [place] [address] Physician Cardiology 02/01/19 Team Status: Inactive Member Role Status Dates Dr. Jeremi Morel MD Primary Care Provider, Refer ring Provider Active Matheus CEJA PA Attending Provider Active Team Status: Inactive Member Role Status Dates Dr. Jeremi Morel MD Primary Care Provider Active MARCIAL Eduardo Attending Provider, Referring Provi frida Active Team Status: Inactive Member Role Status Dates Dr. Jeremi Morel MD Primary Care Provider Active Matheus CEJA PA Attending Provider Active Team Status: Inactive Member Role Status Dates Dr. Jeremi Morel MD Primary Care Provider Active Andrei CEJA, PA Attending Provider Active Assistant Food Service Manager Relationship Specialty Start Date End Date Jeremi Morel MD [address] [place] [address] PCP - General Internal Medicine 08/19/16 Thompson Diggs MD [address] [address] Physician Cardiology 02/01/19 Assistant Food Service Manager Relationship Specialty Start Date End Date Jeremi Morel MD [address] [place] [address] PCP - General Internal Medicine 08/19/16 Thompson Diggs MD [address] [address] Physician Cardiology 02/01/19 Assistant Food Service Manager Relationship Specialty Start Date End Date Jeremi Morel MD [address] [place] [address] PCP - General Internal Medicine 08/19/16 Thompson Diggs MD [address] [address] Physician Cardiology 02/01/19 Team Status: Active Member Role Status Dates Dr. Jeremi Morel MD Primary Care Provider Active Dr. Maxi Quiroga DO Emergency Provider Active Dr. Jim Haque DO Admit Provider, Attending Pro vider Active Team Status: Active Member Role Status Dates Dr. Jeremi Morel MD Primary Care Provider Active Dr. Maxi Quiroga DO Emergency Provider Active Dr. Jim Haque DO Admit Provider, Attending Provider, Other Provider Active Team Status: Inactive Member Role Status Dates Dr. Jeremi Morel MD Primary Care Provider Active Dr. Maxi Quiroga DO Emergency Provider Active Dr. Jim Haque DO Admit Provider, Attending Pro vider Active Assistant Food Service Manager Relationship Specialty Start Date End Date Jeremi Morel MD [address] [place] [address] PCP - General Internal Medicine 08/19/16 Thompson Diggs MD [address] [address] Physician Cardiology 02/01/19 Assistant Food Service Manager Relationship Specialty Start Date End Date Jeremi Morel MD [address] [place] [address] PCP - General Internal Medicine 08/19/16 Thompson Diggs MD [address] [address] Physician Cardiology 02/01/19 Assistant Food Service Manager Relationship Specialty Start Date End Date Jeremi Morel MD [address] [place] [address] PCP - General Internal Medicine 08/19/16 Thompson Diggs MD [address] [address] Physician Cardiology 02/01/19 Assistant Food Service Manager Relationship Specialty Start Date End Date Jeremi Morel MD [address] [place] [address] PCP - General Internal Medicine 08/19/16 Thompson Diggs MD [address] [facility] [address] [address] Physician Cardiology 02/01/19 Assistant Food Service Manager Relationship Specialty Start Date End Date Jeremi Morel MD [address] [place] [address] PCP - General Internal Medicine 08/19/16 Thompson Diggs MD [address] [address] Physician Cardiology 02/01/19 Assistant Food Service Manager Relationship Specialty Start Date End Date Jeremi Morel MD [address] [place] [address] PCP - General Internal Medicine 08/19/16 Thompson Diggs MD [address] [address] Physician Cardiology 02/01/19 Mercedez Castaneda, RECEPTIONIST TELEPHONE OPERATOR.SUPERVISOR HOT DIP TINNING [address] [place] [address] Weatherization Director Internal Medicine 10/21/24 Assistant Food Service Manager Relationship Specialty Start Date End Date Jeremi Morel MD [address] [place] [address] PCP - General Internal Medicine 08/19/16 Thompson Diggs MD [address] [facility] [address] [place] [address] Physician Cardiology 02/01/19 Mercedez Castaneda, RECEPTIONIST TELEPHONE OPERATOR.SUPERVISOR HOT DIP TINNING [address] [place] [address] Weatherization Director Internal Medicine 10/21/24 Assistant Food Service Manager Relationship Specialty Start Date End Date Amador Coffey MD [address] [facility] [address] [place] [address] PCP - General Family Medicine 12/17/24 Thompson Diggs MD [address] [facility] [address] [place] [address] Physician Cardiology 02/01/19 Mercedez Castaneda, RECEPTIONIST TELEPHONE OPERATOR.SUPERVISOR HOT DIP TINNING [address] [place] [address] Weatherization Director Internal Medicine 10/21/24 Team Status: Active Member Role/Relationship Status Dates Dr. Jeremi Morel MD Primary care physician Activ e Team Status: Inactive Member Role/Relationship Status Dates Dr. Jeremi Morel MD Primary care physician Activ e Start: August 14, 2025 End: August 14, 2025 Dr. Jeremi Morel MD Referring Provider Active Start: August 14, 2025 End: August 14, 2025 Stacy Bolanos NATIONAL SALES REPRESENTATIVE, NATIONAL SALES REPRESENTATIVE-C Attending physician Active Start: August 14, 2025 End: August 14, 2025 Goals (unrecognized section and content) Goals may be documented in a n alternate sectionGoals may be documented in an alternate sectionGoals may be documented in an alternate sectionGoals may be documented in an alternate sectionGoals may be documented in an alternate section No data available for this sectionGoals may be documented in an alternate section FOR RECORDS PERTAINING TO PATIENTS WHO ARE [...] BE BASED ON THE PRIMARY CLINICAL RECORDS. [facility] [employer] [facility]. provides no warranty or guarantee of the accuracy or completeness of information in this document.
[2025-10-04 10:25] LABS: Pro- Brain NATRIURETIC PEPTIDE 3804 pg/mL (<=1800)
--- NOTE | 2025-10-04 11:50 | ED.RN ---
Pt requested eliceo. Meal tray ordered
--- NOTE | 2025-10-04 12:13 | CM.ED ---
Social work Reason for referral: discharge planning Referral source: Dr Lou/Ingrid RN SW consulted for patient who is placed at the [facility] and patient requesting to speak with SW. SW entered patient's room, introducing self and role at [facility]. Patient's daughter, Jigna, and son in law, Zan, were bedside. Patient stated being "anxious" and not sleeping or eating at the [facility]. Patient avoided eye contact during this initial conversation. Patient tearful when Jigna mentioned having a meeting with hospice yesterday due to patient's daughter reportedly having hospice care and then passing away from breast cancer. Patient tearfully stated, "you're supposed to go before your kids do." After Jodi MAURICE provided patient with ordered Ativan, patient became more talkative and was observed making more eye contact. Jigna stated how "unbelievable" it was that patient was talking, smiling, and looking more relaxed after the Ativan set in. Patient stated feeling more relaxed and feeling better overall; patient requested sherbet and ate sherbet and pudding. Jigna stated patient has been at the [facility] since November and Jigna's mother was at the [facility] 2 years ago with no problems prior to passing away. Jigna stated "things have spiraled" over the last 6 weeks with patient having sepsis, pneumonia, weight loss, etc. Patient stated significant weight loss and sitting in patient's room with nothing to do, specifically stating the TV not working despite Jigna asking weeks ago for it to be fixed. Jigna stated patient used to enjoy watching football, calling Jigna and patient's sister, talking with people, etc. and patient has struggled with doing any of that lately. Jigna also stated patient not taking patient's anxiety medication right now due to the Avenue "running out of it." Jigna verbalized frustration with patient's treatment at the [facility] and patient agreed. SW provided active listening, empathic support, and answered questions as able. SW encouraged patient and Jigna to speak with the [facility] director, DON, or renal social worker staff on Monday to discuss concerns noted today. SW to remain available as needed prior to discharge back to the [facility] due to it being a weekend with no medical need for admission. Nora Main, FEDERAL MEDIATOR, HOTEL VALET ATTENDANT
== END 2025-10-04 15:13 | disposition home or self-care (01) ==
PROVIDERS: Emergency Provider Emergency Medicine; PCP Family Medicine; Visit Provider Emergency Medicine
DX: R06.02 Shortness of breath (principal); I13.0 Hypertensive heart and chronic kidney disease with heart failure and stage 1 through stage 4 chronic kidney disease, or unspecified chronic kidney disease; I50.32 Chronic diastolic (congestive) heart failure; E11.22 Type 2 diabetes mellitus with diabetic chronic kidney disease; I25.10 Atherosclerotic heart disease of native coronary artery without angina pectoris; N18.2 Chronic kidney disease, stage 2 (mild); F41.9 Anxiety disorder, unspecified; Z87.891 Personal history of nicotine dependence; E78.5 Hyperlipidemia, unspecified; Z99.81 Dependence on supplemental oxygen; Z66 Do not resuscitate
CPT/HCPCS: 36592; 71045; 80048; 83880; 85025; 87631; 93005; 94640; 96374; 96375; 96376; 99285; A4216; J1938